=== PATIENT | female | born 1955 | race Hispanic/Latino ===

== ENCOUNTER 2022-06-01 18:29 | Observation (INO) | payer MEDICAID, SELFPAY ==
[2022-06-01] VITALS (10 sets, daily range): BP systolic 119–144; BP diastolic 62–106; PULSE 86–101; RESP 16–28; TEMP 36.4–36.5; O2SAT 95–100; BMI 36.6; BMI 30.8
--- NOTE | 2022-06-01 18:36 | EKG12_ITS ---
Test Reason : DYSRHYTHMIA Blood Pressure : / mmHG Vent. Rate : 095 BPM Atrial Rate : 095 BPM P-R Int : 150 ms QRS Dur : 080 ms QT Int : 360 ms P-R-T Axes : 056 030 017 degrees QTc Int : 452 ms Normal sinus rhythm Nonspecific ST abnormality Abnormal ECG Confirmed by CHEMO GUERRA, SHELIA ([id number]), book or script editor RERE JEAN-BAPTISTE ([id number]) on 06/02/2022 8:45:54 AM Referred By: LANDEN Confirmed By:SHELIA MCLAIN MD
--- NOTE | 2022-06-01 18:37 | EDS_ITS ---
HPI History of Present Illness Chief Complaint: Neuro S/Sx Detail of Chief Complaint: Stroke Informant: patient and family Narrative Narrative: Patient presents to the emergency department with concern for possible stroke. Patient brought in by her daughter and history comes via translation from her daughter. Patient is Yakut-speaking. Patient states that she noticed yesterday that she had some drooping to her face. She developed a headache yesterday. Patient came to her daughter's work today and daughter became concerned that patient may have had a stroke. She does have frequent headaches. I am told her headache came on gradually. Patient does have history of hypertension and history of diabetes. Patient complains of maybe some mild weakness in her left hand. She denies weakness in the lower extremities. Prior similar symptoms: No PFSH PFSH Medical History (Updated 06/01/22 @ 22:[address] Ismael Naqvi, DO) Diabetes HTN (hypertension) Home Medications atorvastatin 10 mg tablet 10 mg PO DAILY 06/01/22 [History Last Taken Unknown] glipizide 2.5 mg tablet, extended release 24 hr 2.5 mg PO DAILY 06/01/22 [History Last Taken Unknown] lisinopril 10 mg tablet 10 mg PO DAILY 06/01/22 [History Last Taken Unknown] metformin 500 mg tablet,extended release 24 hr 1,000 mg PO BID 06/01/22 [History Last Taken Unknown] Allergy/AdvReac Type Severity Reaction Status Date / Time No Known Allergies Allergy Verified 06/01/22 18:33 Social History Smoking Status: Never smoker ROS ROS ED Review of Systems ROS Unobtainable: other Constitutional Constitutional ED: Reports lethargy; Denies chills, fever(s), sweats or weight loss Eyes Eyes: Denies blurry vision, change in vision or diplopia ENT ENT ED: Denies rhinorrhea or sore throat Cardiovascular Cardiovascular: Denies chest pain, orthopnea or racing heartbeat Respiratory/Chest Respiratory/Chest: Denies cough, dyspnea, dyspnea on exertion, orthopnea or sputum Gastrointestinal Gastrointestinal: Denies abdominal pain, diarrhea, nausea or vomiting Genitourinary Genitourinary ED: Denies dysuria, hematuria or urinary frequency Musculoskeletal Musculoskeletal: Denies arthralgias, back pain, myalgias or neck pain Integumentary Denies abscess, Abrasions or rash Neurologic Neurologic: Reports other Details: Facial droop, left hand weakness ; Denies headache(s) or weakness Psychiatric Psychiatric: Denies anxiety, depression or suicidal thoughts Endocrine Endocrinology: Denies polydipsia, polyphagia or polyuria Hematologic/Lymphatic Hematologic/Lymphatic: Denies easy bleeding, easy bruising or lymphadenopathy Allergic/Immunologic Allergic/Immunologic ED: Denies mouth swelling, tongue swelling or urticaria EXAM Physical Exam Const Vital Signs: 06/01/22 18:31 06/01/22 18:37 06/01/22 18:51 Temperature 97.6 F L 97.6 F L Temperature Source Temporal Temporal Pulse Rate 95 89 Respiratory Rate 18 18 Blood Pressure 140/86 H 136/71 H Blood Pressure Mean 104 92 Pulse Ox 98 100 Oxygen Delivery Method Room Air Room Air Room Air 06/01/22 19:19 06/01/22 19:32 06/01/22 20:01 Temperature Temperature Source Pulse Rate 95 93 101 H Respiratory Rate 22 H 17 25 H Blood Pressure 124/69 H 127/106 H 140/73 H Blood Pressure Mean 87 113 95 Pulse Ox 99 100 99 Oxygen Delivery Method Room Air Room Air Room Air 06/01/22 21:01 06/01/22 22:02 Temperature Temperature Source Pulse Rate 94 86 Respiratory Rate 27 H 18 Blood Pressure 129/63 H 119/62 Blood Pressure Mean 85 81 Pulse Ox 98 95 Oxygen Delivery Method Room Air Room Air Positive well nourished and well developed General Appearance ED: well developed and NAD HEENT Reports TM's clear and moist mucous membranes normocephalic and atraumatic; Negative for trauma or tenderness Tympanic Membrane ED: Yes TM's clear Eyes PERRL and EOMs intact bilaterally General Eye ED: Negative for pale conjunctiva or scleral icterus Neck no lymphadenopathy, supple and no JVD General: Negative for tenderness Chest Wall inspection of chest normal and palpation of chest normal Chest: Negative for tenderness Resp normal respiratory effort and clear to auscultation bilaterally Effort and Inspection: Negative for respiratory distress or pain with movement Auscultation: Negative for rhonchi, wheezes or diminished lung sounds Cardio regular rate, regular rhythm, S1 normal heart sound, S2 normal heart sound and no murmurs Peripheral Pulses: pulses 2+ throughout GI normal to inspection, nondistended, normoactive bowel sounds, soft to palpation, non-tender, non-distended and no masses Back/Spine no CVA tenderness and no thoracic nor lumbar tenderness Extremity normal to inspection General Extremety ED: Negative for edema General Extremity: Negative for edema Neuro oriented x3, CN's II-XII intact bilaterally, no sensory deficits noted and gait normal Neuro Narrative: Patient appears to have a right-sided facial droop on exam. She has some weak ness of the right upper eyelid compared to the left. Mild decrease sensation to the right side of the face. Patient has subjective weakness of the left hand but no objective weakness noted. Sensorium / Orientation: awake, alert, oriented to person, oriented to place and oriented to time Motor Exam: strength 5/5 throughout and strength abnormal Psych mental status grossly normal Skin no rashes or lesions noted and no wounds MDM MDM MDM Narrative Medical decision making narrative: Patient presents with symptoms greater than 24 hours. In the differential would be a Dover's palsy versus stroke. Patient will have initial stroke work-up including CTA of head and neck. Initial NIH stroke scale was a 3 given facial droop and decreased PCP to obtain was normal. Sensation to the right side of the face. Patient not a thrombolytic candidate as she has had symptoms for greater than 24 hours.. CBC with differential obtained was normal. Chemistries normal. CT scan of the brain without contrast showed no intracranial hemorrhage or other acute disease process. Patient had CTA head and neck that were normal. Case discussed with hospitalist will evaluate patient for admission. Again she is not a thrombolytic candidate as she has had symptoms for more than 24 hours. Not a candidate for large vessel clot retrieval. In the differential is stroke versus Dover's palsy. Given symptoms involving the left hand and the fact that she can wrinkle the right side of her forehead concerned about a central cause. Lab Data Labs: Laboratory Results - last 24 hr 06/01/22 06/01/22 06/01/22 18:53 18:55 18:55 WBC 5.2 RBC 4.76 Hgb 14.6 Hct 43.7 MCV 91.8 MCH 30.7 MCHC 33.4 RDW Std Deviation 51.5 H RDW Coeff of [place] 14.9 H Plt Count 100 L MPV 12.7 H Immature Gran % (Auto) 0.200 Neut % (Auto) 47.6 Lymph % (Auto) 36.2 [place] % (Auto) 11.9 H Eos % (Auto) 3.3 Baso % (Auto) 0.8 Absolute Neuts (auto) 2.5 Absolute Lymphs (auto) 1.88 Nucleated RBC % 0 PT 14.2 INR 1.1 APTT 33.4 Sodium Potassium Chloride Carbon Dioxide Anion Gap BUN Creatinine Estim Creat Clear Calc Est GFR (MDRD) Af Amer Est GFR (MDRD) Non-Af BUN/Creatinine Ratio Glucose Calcium Troponin I High Sens POC Glucose 114 H 06/01/22 18:55 WBC RBC Hgb Hct MCV MCH MCHC RDW Std Deviation RDW Coeff of Francisco Plt Count MPV Immature Gran % (Auto) Neut % (Auto) Lymph % (Auto) [place] % (Auto) Eos % (Auto) Baso % (Auto) Absolute Neuts (auto) Absolute Lymphs (auto) Nucleated RBC % PT INR APTT Sodium 138 Potassium 3.8 Chloride 103 Carbon Dioxide 31.0 Anion Gap 4 L BUN 11 Creatinine 0.61 Estim Creat Clear Calc 66.92 Est GFR (MDRD) Af Amer 126 Est GFR (MDRD) Non-Af 104 BUN/Creatinine Ratio 18.0 Glucose 116 H Calcium 10.0 Troponin I High Sens 4 POC Glucose Radiography Diagnostic Testing: Clinical Impression(s) from Imaging Studies Head/Neck CTA 06/01/22 19:10 IMPRESSION: No acute intracranial abnormality. N.B. : The above Results were Read Back by Sebastien Gaspar MD to Ismael Parikh MD, and understanding confirmed on 06/01/2022 19:45:48 (ET). Electronically Signed: Sebastien Gaspar MD at 19:49 EDT Reading Location ID and State: [facility] / [place] , Service support , ADDENDUM: 06/01/221955 IMPRESSION: No acute intracranial abnormality. N.B. : The above Results were Read Back by Sebastien Gaspar MD to Ismael Parikh MD, and understanding confirmed on 06/01/2022 19:45:48 (ET). Electronically Signed: Sebastien aGspar MD at 19:49 EDT , Chest X-Ray 06/01/22 19:20 IMPRESSION: Degenerative changes, as described above. No demonstrated acute cardiopulmonary process. Electronically Signed: Sebastien Gaspar MD at 19:55 EDT , 1 view chest x-ray obtained interpreted by myself as no evidence of infiltrate or pneumothorax. There is nothing acute. Radiology felt there were degenerative changes but otherwise nothing acute. EKG Initial EKG: Attestation: I personally reviewed and interpreted this EKG as follows: Comments: Sinus rhythm with a rate of [address] changes Discharge Plan Dx/Rx/DC Orders Clinical Impression: Acute CVA (cerebrovascular accident), History of hypertension, Headache Disposition Disposition: Acute Care Hospital [facility]
--- NOTE | 2022-06-01 19:10 | CT_ITS ---
STUDY: CTA HEAD AND NECK WITH CONTRAST REASON FOR EXAM: Female, 66 years old. Neuro deficit, acute, stroke suspected, facial droop RADIATION DOSAGE (If Supplied By Facility): CTDIvol = ( 26.91 ) mGy, DLP = ( 1484.07 ) mGycm TECHNIQUE: CT angiography was performed with a multi-detector CT scanner. Data acquisition was obtained from the skull base through the vertex following intravenous administration of 100mL Isovue-370. MIP images were reconstructed from the axial data set. Post-processing of the angiographic images was performed, with multiplanar reformation and 3D reconstruction. Individualized dose optimization techniques were used for this CT. COMPARISON: No relevant priors. FINDINGS: Normal bilateral petrous carotid arteries. Normal right cavernous carotid artery with a normal supraclinoid bifurcation. Normal left cavernous carotid artery with a normal supraclinoid bifurcation. Normal right A1 segments of the anterior cerebral artery. Normal left A1 segments of the anterior cerebral artery. Normal intact anterior communicating artery (ACOM). Normal bilateral A2 segments of the anterior cerebral arteries. Normal right M1 and M2 segments of the middle cerebral arteries, with a normal M1 bifurcation. Normal left M1 and M2 segments of the middle cerebral arteries, with a normal M1 bifurcation. Normal right posterior communicating artery (PCOM). There is non-visualization of the left posterior communicating artery (PCOM). Normal bilateral vertebral arteries. Normal basilar artery with a normal basilar bifurcation. The visualized bilateral superior cerebellar (SCA) arteries are normal. Normal bilateral P1, P2 and visualized P3 segments of the posterior cerebral arteries. There is no demonstrated aneurysm of the [place]. There is no acute abnormality of the visualized brain. AORTIC ARCH: Normal visualized aortic arch. Normal origins of the brachiocephalic, left common carotid, and left subclavian arteries. RIGHT CAROTID ARTERIES: Normal right common carotid artery (CCA). Normal right common carotid bulb. Normal origin of the right internal carotid (ICA) artery without a hemodynamically significant stenosis. Normal visualized cervical portion of the right internal carotid artery. Normal origin of the right external carotid artery (ECA). LEFT CAROTID ARTERIES: Normal left common carotid artery (CCA). Normal left common carotid bulb. Normal origin of the left internal carotid (ICA) artery without a hemodynamically significant stenosis. Normal visualized cervical portion of the left internal carotid artery. Normal origin of the left external carotid artery (ECA). VERTEBRAL ARTERIES: Normal bilateral vertebral arteries. IMPRESSION: Normal CTA Head and neck with contrast. No aneurysm or large vessel occlusion. No internal carotid artery stenosis. N.B. : The above Results were Read Back by Sebastien Gaspar MD to Ismael Parikh MD, and understanding confirmed on 06/01/2022 19:45:48 (ET). Electronically Signed: Sebastien Gaspar MD at 19:47 EDT , STUDY: CT BRAIN WITHOUT CONTRAST REASON FOR EXAM: Female, 66 years old. Neuro deficit, acute, stroke suspected, facial droop RADIATION DOSAGE (If Supplied By Facility): CTDIvol = ( ) mGy, DLP = ( 1484 ) mGycm TECHNIQUE: Transaxial CT imaging of the brain was performed without administration of intravenous contrast material. Individualized dose optimization techniques were used for this CT. COMPARISON: No relevant priors. FINDINGS: Normal soft tissue structures. Normal calvarium. Normal size ventricles and extra-axial spaces for the patient''s age. Normal white matter tracts of the cerebral hemispheres. There is benign-appearing calcification of the medial right frontal lobe. Normal basal ganglia and thalami. Normal brainstem. Normal cerebellum. There is no intracranial hemorrhage. There are no findings of an acute ischemic infarction. Normal visualized paranasal sinuses. CT/STROKE CTA Head AND Neck W/Con IMPRESSION: No acute intracranial abnormality. N.B. : The above Results were Read Back by Sebastien Gaspar MD to Ismael Parikh MD, and understanding confirmed on 06/01/2022 19:45:48 (ET). Electronically Signed: Sebastien Gaspar MD at 19:49 EDT ,
[2022-06-01 19:11] LABS: Bedside Glucose 114 mg/dL (74-106)
[2022-06-01 19:19] LABS: Absolute Lymphocyte Count 1.88 X10^3/uL (0.83-4.51); Absolute Neutrophil Count 2.5 X10^3/uL (2.0-7.7); Basophil# 0.04 X10^3/uL; Basophil% 0.8 % (0-1); Eosinophil# 0.17 X10^3/uL; Eosinophils% 3.3 % (0-5); Hematocrit 43.7 % (37-47); Hemoglobin 14.6 g/dL (12.0-15.0); Lymphocyte # 1.88 X10^3/ul (0.83-4.51); Lymphocyte % 36.2 % (19-41); Mean Corp Hgb Conc 33.4 g/dL (32-36); Mean Corpuscular Hgb 30.7 pg (27.0-32.0); Mean Corpuscular Volume 91.8 fL (81-99); Mean Platelet Vol. 12.7 fl (6.2-12.0); Monocyte# 0.62 X10^3/uL; Monocyte% 11.9 % (0-10); NRBC Flagged by Analyzer 0 % (0-5); Neutrophil # 2.47 X10^3/uL (2.7-7.7); Neutrophil % 47.6 % (47-70); Platelet Count 100 K/mm3 (150-450); RBC Distribution Width CV 14.9 % (11.6-14.6); RBC Distribution Width SD 51.5 fl (35.1-43.9); Red Blood Count 4.76 M/mm3 (4.2-5.4); White Blood Count 5.2 K/mm3 (4.4-11.0)
--- NOTE | 2022-06-01 19:20 | RAD_ITS ---
STUDY: X-RAY CHEST REASON FOR EXAM: Female, 66 years old. Neuro deficit, acute, stroke suspected TECHNIQUE: Single AP portable view of the chest. COMPARISON: None. FINDINGS: The lungs are clear and expanded. There is no demonstrated pleural abnormality. Normal size heart. Normal mediastinum and sebastian. Normal visualized pulmonary arteries. Normal visualized aortic arch and descending thoracic aorta. There are diffuse degenerative changes of the visualized thoracic spine. Normal visualized ribs, clavicles, and shoulders. There is no demonstrated abnormality of the visualized soft tissue structures of the upper abdomen. RAD/Chest 1 View IMPRESSION: Degenerative changes, as described above. No demonstrated acute cardiopulmonary process. Electronically Signed: Sebastien Gaspar MD at 19:55 EDT ,
--- NOTE | 2022-06-01 19:28 | ED.RN ---
Addendum entered by Monica Elizondo 06/01/22 19:29: VERBAL ORDER, REPEATED BACK TO PHYSICIAN. Original Note: PER DR. RITCHIE OKAY TO DISCONTINUE NIH ASSESSMENTS.
[2022-06-01 19:34] LABS: International Normalized Ratio 1.1; Prothrombin Time (Protime)PT. 14.2 SECONDS (11.7-14.9)
[2022-06-01 19:35] LABS: Partial Thromboplast Time 33.4 Seconds (24.1-36.2)
[2022-06-01 19:39] LABS: Anion Gap 4 (5-15); BUN 11 mg/dL (7-18); Chloride 103 mmol/L (98-107); Creatinine, Serum 0.61 mg/dL (0.55-1.02); EST Glomerular Filtration Rate 104 mL/min (>60); Est Glom Filt Rate - Afr Amer 126 mL/min (>60); Estimated Creatinine Clearance 66.92 ml/min; Glucose 116 mg/dL (74-106); Potassium 3.8 mmol/L (3.5-5.1); Sodium Level 138 mmol/L (136-145); Troponin-I HS 4 pg/mL (3.0-54.0)
[2022-06-01] MEDS: Acetaminophen 325 MG Tablet 650 MG PO (20:47)
--- NOTE | 2022-06-01 21:48 | ED.RN ---
PT FAMILY MEMBER AND SPOUSE LEAVING AT [id number]. PT FAMILY MEMBER REQUESTS SHE BE CALLED WHEN THE PT IS MOVED TO THE INPATIENT FLOOR. PHONE NUMBER IS [phone], VIRGIL HESS.
--- NOTE | 2022-06-01 22:11 | HP.PCM.HOS_ITS ---
HPI - General General Date of Admission: 06/01/22 Date of Service: 06/01/22 Chief Complaint: Facial droop HPI Narrative CLARE MORALES, is a 66 F who Ukrainian speaking and with a significant medical history of hypertension and diabetes presenting to the emergency department with persistent facial weakness. Patient reports facial weakness to her left side. Reportedly she was drooling from the left side with drinking water and brushing her teeth. Associated symptom is slurry speech. Further patient reports weakness in left hand. [facility] Medical History Diabetes HTN (hypertension) Home Medications atorvastatin 10 mg tablet 10 mg PO DAILY 06/01/22 [History Last Taken Unknown] glipizide 2.5 mg tablet, extended release 24 hr 2.5 mg PO DAILY 06/01/22 [History Last Taken Unknown] lisinopril 10 mg tablet 10 mg PO DAILY 06/01/22 [History Last Taken Unknown] metformin 500 mg tablet,extended release 24 hr 1,000 mg PO BID 06/01/22 [History Last Taken Unknown] Allergy/AdvReac Type Severity Reaction Status Date / Time No Known Allergies Allergy Verified 06/01/22 18:33 Family History Other CVA (cerebral vascular accident) Hypertension Surgical History no surgical history no surgical history Social History Smoking Status: Never smoker ROS ROS Narrative Pertinent positives and pertinent negatives as noted in HPI. All other systems were reviewed and are negative Vital Signs Vital Signs Vital Signs: 06/01/22 18:31 06/01/22 18:37 06/01/22 18:51 Temperature 97.6 F L 97.6 F L Temperature Source Temporal Temporal Pulse Rate 95 89 Respiratory Rate 18 18 Blood Pressure 140/86 H 136/71 H Blood Pressure Mean 104 92 Pulse Ox 98 100 Oxygen Delivery Method Room Air Room Air Room Air 06/01/22 19:19 06/01/22 19:32 06/01/22 20:01 Temperature Temperature Source Pulse Rate 95 93 101 H Respiratory Rate 22 H 17 25 H Blood Pressure 124/69 H 127/106 H 140/73 H Blood Pressure Mean 87 113 95 Pulse Ox 99 100 99 Oxygen Delivery Method Room Air Room Air Room Air 06/01/22 21:01 06/01/22 22:02 Temperature Temperature Source Pulse Rate 94 86 Respiratory Rate 27 H 18 Blood Pressure 129/63 H 119/62 Blood Pressure Mean 85 81 Pulse Ox 98 95 Oxygen Delivery Method Room Air Room Air Weight Weight: 85.049 kg Body Mass Index (BMI) 36.6 Physical Exam Narrative Physical exam: General: Well-nourished, well-developed. Head: Normocephalic, atraumatic, no tenderness Eyes: Vision is grossly intact. EOMI ENT, no trauma, moist mucous membranes, no rhinorrhea Neck: Nontender, No thyromegaly. CVS: Regular rate and rhythm. S1-S2 present. No murmur, gallop or rub. Respiratory : clear to auscultation bilaterally, chest wall nontender, no wheezing Abdomen: Soft, nontender, nondistended, normal bowel sounds, no masses : Deferred Back: Nontender, no CVA tenderness, no midline spinal tenderness, deformities, step-offs Extremities: Nontender full range of motion, no trauma Skin: Normal color, no trauma, abrasions Neuro: Alert, oriented, cranial nerves II through XII grossly intact. No hyperreflexia in the elbow reflex and knee reflexes. Strength 5 out of 5 in all 4 extremities. Sensation change in left face compared to right face. Right facial droop. Decrease in wrinkling of right side of forehead compared to left. Psychiatry: Normal mood. Normal affect. Not depressed. Not anxious. Results Lab / Micro Data Result Diagrams: 06/01/22 18:55 06/01/22 18:55 Labs: Laboratory Results - last 24 hr 06/01/22 18:53: POC Glucose 114 H 06/01/22 18:55: WBC 5.2, RBC 4.76, Hgb 14.6, Hct 43.7, MCV 91.8, MCH 30.7, MCHC 33.4, RDW Std Deviation 51.5 H, RDW Coeff of Francisco 14.9 H, Plt Count 100 L, MPV 12.7 H, Immature Gran % (Auto) 0.200, Neut % (Auto) 47.6, Lymph % (Auto) 36.2, [place] % (Auto) 11.9 H, Eos % (Auto) 3.3, Baso % (Auto) 0.8, Absolute Neuts (auto) 2.5, Absolute Lymphs (auto) 1.88, Nucleated RBC % 0 06/01/22 18:55: PT 14.2, INR 1.1, APTT 33.4 06/01/22 18:55: Sodium 138, Potassium 3.8, Chloride 103, Carbon Dioxide 31.0, Anion Gap 4 L, BUN 11, Creatinine 0.61, Estim Creat Clear Calc 66.92, Est GFR (MDRD) Af Amer 126, Est GFR (MDRD) Non-Af 104, BUN/Creatinine Ratio 18.0, Glucose 116 H, Calcium 10.0, Troponin I High Sens 4 Radiology Impression Head/Neck CTA 06/01/22 19:10 IMPRESSION: No acute intracranial abnormality. N.B. : The above Results were Read Back by Sebastien Gaspar MD to Ismael Parikh MD, and understanding confirmed on 06/01/2022 19:45:48 (ET). Electronically Signed: Sebastien Gaspar MD at 19:49 EDT , ADDENDUM: 06/01/221955 IMPRESSION: No acute intracranial abnormality. N.B. : The above Results were Read Back by Sebastien Gaspar MD to Ismael Parikh MD, and understanding confirmed on 06/01/2022 19:45:48 (ET). Electronically Signed: Sebastien Gaspar MD at 19:49 EDT , Chest X-Ray 06/01/22 19:20 IMPRESSION: Degenerative changes, as described above. No demonstrated acute cardiopulmonary process. Electronically Signed: Sebastien Gaspar MD at 19:55 EDT , Assessment & Plan Assessment/Plan (1) Acute CVA (cerebrovascular accident): PLAN: Plan Strokelike symptoms Differentials include acute CVA, TIA or Dover's palsy. Objectively patient has right facial droop although she reports left facial symptoms. Head and neck CTA was visualized and independently interpreted. No hemorrhage of brain or hemodynamically significant stenosis seen in head and neck. I agree with radiology interpretation. Serial NINDS NIH Scale ordered Lipid profile and A1c ordered. Physical therapy, occupational therapy and speech therapy to work with patient. N.p.o. until bedside swallow eval. Daily aspirin. Home statin escalated to high intensity statin. As needed Tylenol for headache. Permissive hypertension. Control blood pressure with labetalol for systolic blood pressure of more than 220 or diastolic blood pressure of more than 120. MRI of brain ordered Echocardiogram ordered. Hypertension Blood pressure is stable Hold home hypertensive medications secondary to strokelike symptoms. Diabetes mellitus Euglycemic on presentation Glipizide continued. Metformin held. Monitor Accu-Cheks Correction scale insulin ordered. DVT prophylaxis: SCDs ordered Charges/Coding Visit Charges Inpatient E&M: 63848 Init Hosp L2
--- NOTE | 2022-06-01 23:23 | ECHOD_ITS ---
Reason For Study: TIA/CVA Procedure This was a 2D Doppler, Color Flow transthoracic echocardiogram. The study was technically difficult. Contrast injection was performed. Exam performed portable in patient room. Left Ventricle Normal left ventricle. Left ventricular systolic function is normal. The estimated ejection fraction is 75 %. Mid cavitary dynamic gradient There is a resting mid cavitary gradient of 21 mmHg increasing to 51 mmHg with Valsalva. mm/Hg. No regional wall motion abnormalities noted. Right Ventricle Normal RV size. Normal systolic function. Atria The left atrium is mildly enlarged. Normal right atrium. Bubble contrast study negative for right to left interatrial shunt. Mitral Valve Normal mitral valve. Tricuspid Valve Normal tricuspid valve. Mild (1+) tricuspid valve insufficiency. Pulmonary artery systolic pressure is 33 mmHg. Aortic Valve Trisinus/trileaflet aortic valve. Pulmonic Valve The pulmonic valve is not well visualized. Great Vessels Normal aortic root. The pulmonary artery is normal size. Normal inferior vena cava. Pericardium/Pleural No pericardial effusion. Medication Diluted definity 2ml given slow IV push to enhance endocardial definition. Performed a rapid injection of agitated mix of 9 cc saline and 1cc air to assess for atrial septal defect. MMode/2D Measurements & Calculations LVIDd: 3.9 cm IVSd: 1.0 cm Ao root diam: 2.8 cm LVIDs: 2.5 cm LVPWd: 1.2 cm FS: 34.7 % LAV(MOD-bp): 60.9 ml LVAd ap4: 25.6 cm2 SV(MOD-sp4): 47.7 ml LAV(MOD-bp) Indexed: 33.7 ml/m2 LVLd ap4: 7.4 cm LAV(MOD-sp2): 44.2 ml EDV(MOD-sp4): 72.4 ml LAV(MOD-sp4): 80.8 ml EDV(sp4-el): 74.9 ml LVAs ap4: 13.6 cm2 LVLs ap4: 6.4 cm ESV(MOD-sp4): 24.8 ml ESV(sp4-el): 24.7 ml EF(MOD-sp4): 65.8 % EF(sp4-el): 67.0 % SV(sp4-el): 50.2 ml LA A4 area: 23.4 cm2 LA dimension(2D): 3.7 cm RA A4 area: 13.2 cm2 Time Measurements MV dec time: 0.19 sec Doppler Measurements & Calculations MV E max jose: 99.3 cm/sec Lat Peak E' Jose: 9.8 cm/sec Med Peak E' Jose: 8.5 cm/sec MV A max jose: 67.1 cm/sec E/E' lat: 10.2 E/E' med: 11.7 MV E/A: 1.5 MV V2 max: 118.0 cm/sec MV dec slope: 524.0 cm/sec2 Ao V2 max: 169.1 cm/sec MV max P.6 mmHg Ao max P.8 mmHg MV V2 mean: 76.8 cm/sec Ao V2 mean: 111.4 cm/sec MV mean P.7 mmHg Ao mean P.2 mmHg MV V2 VTI: 31.6 cm Ao V2 VTI: 36.5 cm PA V2 max: 126.0 cm/sec TR max jose: 267.7 cm/sec PA V2 mean: 92.5 cm/sec TR max P.7 mmHg ECHO/Echo Complete W/ Contrast Interpretation Summary Normal left ventricle. Left ventricular systolic function is normal. The estimated ejection fraction is 75 %. The left atrium is mildly enlarged. Pulmonary artery systolic pressure is 33 mmHg. Mid cavitary dynamic gradient There is a resting mid cavitary gradient of 21 mm Hg increasing to 51 mmHg with Valsalva. mm/Hg. Contrast injection was performed. Ordering Physician: Matt Toussaint Referring Physician: Elder Reddy M.D. Performed By: Gege Mcdaniels RCS
--- NOTE | 2022-06-01 23:25 | ED.RN ---
THIS RN TOOK THE PT TO THE FLOOR. BEDSIDE NIH ASSESSMENT COMPLETED BY THIS RN WITH Marychuy TOWNSEND RN AT THE BEDSIDE.
--- NOTE | 2022-06-01 23:27 | ED.RN ---
THIS RN CALLED PT DAUGHTER PER PT TO LET HER KNOW PT IS NOW ON PCU. CALL TOOK PLACE AT [phone].
[2022-06-02] VITALS (8 sets, daily range): BP systolic 114–141; BP diastolic 58–79; PULSE 77–88; RESP 16–20; TEMP 36.4–37.1; O2SAT 94–99; BMI 30.8
[2022-06-02 02:36] LABS: Bedside Glucose 105 mg/dL (74-106)
[2022-06-02 03:26] LABS: Bedside Glucose 110 mg/dL (74-106)
[2022-06-02] MEDS: Acetaminophen 325 MG Tablet 650 MG PO ×2 (05:57→17:57)
[2022-06-02 06:28] LABS: Absolute Lymphocyte Count 1.26 X10^3/uL (0.83-4.51); Absolute Neutrophil Count 1.5 X10^3/uL (2.0-7.7); Basophil# 0.01 X10^3/uL; Basophil% 0.3 % (0-1); Eosinophil# 0.14 X10^3/uL; Eosinophils% 4.2 % (0-5); Hematocrit 39.3 % (37-47); Hemoglobin 12.9 g/dL (12.0-15.0); Lymphocyte # 1.26 X10^3/ul (0.83-4.51); Lymphocyte % 37.5 % (19-41); Mean Corp Hgb Conc 32.8 g/dL (32-36); Mean Corpuscular Hgb 30.2 pg (27.0-32.0); Mean Platelet Vol. 13.3 fl (6.2-12.0); Monocyte% 11.9 % (0-10); NRBC Flagged by Analyzer 0 % (0-5); Neutrophil # 1.54 X10^3/uL (2.7-7.7); Neutrophil % 45.8 % (47-70); POSITIVE COUNT YES; Platelet Count 67 K/mm3 (150-450); RBC Distribution Width CV 14.9 % (11.6-14.6); RBC Distribution Width SD 50.1 fl (35.1-43.9); Red Blood Count 4.27 M/mm3 (4.2-5.4); White Blood Count 3.4 K/mm3 (4.4-11.0)
[2022-06-02 06:31] LABS: Differential Indicated SCAN CRITERIA MET
[2022-06-02 06:56] LABS: Anion Gap 8 (5-15); BUN 7 mg/dL (7-18); BUN/Creat Ratio 15.7 RATIO (10-20); Calcium,Total 8.9 mg/dL (8.5-10.1); Chloride 106 mmol/L (98-107); Cholesterol 179 mg/dL (200); Creatinine, Serum 0.45 mg/dL (0.55-1.02); EST Glomerular Filtration Rate 150 mL/min (>60); Est Glom Filt Rate - Afr Amer 182 mL/min (>60); Estimated Creatinine Clearance 113.65 ml/min; Glucose 87 mg/dL (74-106); High Density Lipoprotein 76 mg/dL; Potassium 3.6 mmol/L (3.5-5.1); Sodium Level 140 mmol/L (136-145); Triglycerides 85 mg/dL; Very Low Density Lipoprotein 17 mg/dL (5-40)
[2022-06-02 06:59] LABS: Anisocytosis 1+; Platelet Estimate MOD DEC (ADEQ)
[2022-06-02 07:05] LABS: Bedside Glucose 99 mg/dL (74-106)
--- NOTE | 2022-06-02 07:29 | PN.HOSP_ITS ---
Reason for Visit Reason for Visit: Facial droop Subjective Subjective Patient is a 66-year-old [place]ander-speaking female who presented to the emergency department [facility] on 06/01/2022 with right facial droop that started the day prior to presentation. She also developed a headache at that time. Patient evidently came to her daughter's work on the day of admission and her daughter became concerned that she may be having a stroke because of her symptoms. Life facial droop was persistent and speech was somewhat slurred the patient also reported some left hand weakness. She does have a history of hypertension, hyperlipidemia, and diabetes. She denies any tobacco abuse. Current NIH is 1. She was out of the window for any thrombectomy or thrombolytics upon presentation so stroke team was not called. Vital signs on presentation were overtly unremarkable other than some mildly elevated blood pressure 140/86. Her CBC showed only thrombocytopenia which was 100,000 on presentation but we have no baseline previously so I am unaware if this is acute or chronic. Her chemistry panel was unremarkable other than some mild hyperglycemia at 116 on presentation. Her lipid panel showed a total cholesterol 179/LDL 86/HDL 76 and triglycerides of 85. Hemoglobin A1c was 6.6. Patient is now complaining of a difficulty eating because of weakness in the right side of his face. The weakness on the lower portion of the right side of her face seems to be stable however she has developed new weakness on the upper portion of the right side of her face indicating complete right-sided facial nerve palsy. 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 MRI remains pending and will not be done till later today. Objective Data Objective Data Vital Signs: Vital Signs Temp Pulse Resp BP Pulse Ox O2 Del Method 97.8 F 80 18 127/58 H 96 Room Air 06/02/22 05:57 06/02/22 05:57 06/02/22 05:57 06/02/22 05:57 06/02/22 05:57 06/02/22 05:57 Oxygen Delivery Method Room Air Weight: 84 kg Body Mass Index (BMI) 30.8 Lab / Micro Data Result Diagrams: 06/02/22 04:50 06/02/22 04:50 Labs: Laboratory Results - last 24 hr 06/01/22 18:53: POC Glucose 114 H 06/01/22 18:55: WBC 5.2, RBC 4.76, Hgb 14.6, Hct 43.7, MCV 91.8, MCH 30.7, MCHC 33.4, RDW Std Deviation 51.5 H, RDW Coeff of Francisco 14.9 H, Plt Count 100 L, MPV 12.7 H, Immature Gran % (Auto) 0.200, Neut % (Auto) 47.6, Lymph % (Auto) 36.2, [place] % (Auto) 11.9 H, Eos % (Auto) 3.3, Baso % (Auto) 0.8, Absolute Neuts (auto) 2.5, Absolute Lymphs (auto) 1.88, Nucleated RBC % 0 06/01/22 18:55: PT 14.2, INR 1.1, APTT 33.4 06/01/22 18:55: Sodium 138, Potassium 3.8, Chloride 103, Carbon Dioxide 31.0, Anion Gap 4 L, BUN 11, Creatinine 0.61, Estim Creat Clear Calc 66.92, Est GFR (MDRD) Af Amer 126, Est GFR (MDRD) Non-Af 104, BUN/Creatinine Ratio 18.0, Glucose 116 H, Calcium 10.0, Troponin I High Sens 4 06/02/22 02:15: POC Glucose 105 06/02/22 03:04: POC Glucose 110 H 06/02/22 04:50: WBC 3.4 L, RBC 4.27, Hgb 12.9, Hct 39.3, MCV 92.0, MCH 30.2, MCHC 32.8, RDW Std Deviation 50.1 H, RDW Coeff of Francisco 14.9 H, Plt Count 67 L, MPV 13.3 H, Immature Gran % (Auto) 0.300, Neut % (Auto) 45.8 L, Lymph % (Auto) 37.5, [place] % (Auto) 11.9 H, Eos % (Auto) 4.2, Baso % (Auto) 0.3, Absolute Neuts (auto) 1.5 L, Absolute Lymphs (auto) 1.26, Nucleated RBC % 0, Platelet Estimate MOD DEC, Anisocytosis 1+ 06/02/22 04:50: Sodium 140, Potassium 3.6, Chloride 106, Carbon Dioxide 26.0, Anion Gap 8, BUN 7, Creatinine 0.45 L, Estim Creat Clear Calc 113.65, Est GFR (MDRD) Af Amer 182, Est GFR (MDRD) Non-Af 150, BUN/Creatinine Ratio 15.7, Glucose 87, Calcium 8.9, Triglycerides 85, Cholesterol 179, LDL Cholesterol 86, VLDL Cholesterol 17, HDL Cholesterol 76 06/02/22 06:42: POC Glucose 99 Radiography Diagnostic Testing: Radiology Impression Head/Neck CTA 06/01/22 19:10 IMPRESSION: No acute intracranial abnormality. N.B. : The above Results were Read Back by Sebastien Gaspar MD to Ismael Parikh MD, and understanding confirmed on 06/01/2022 19:45:48 (ET). Electronically Signed: Sebastien Gaspar MD at 19:49 EDT , ADDENDUM: 06/01/221955 IMPRESSION: No acute intracranial abnormality. N.B. : The above Results were Read Back by Sebastien Gaspar MD to Ismael Parikh MD, and understanding confirmed on 06/01/2022 19:45:48 (ET). Electronically Signed: Sebastien Gaspar MD at 19:49 EDT , Chest X-Ray 06/01/22 19:20 IMPRESSION: Degenerative changes, as described above. No demonstrated acute cardiopulmonary process. Electronically Signed: Sebastien Gaspar MD at 19:55 EDT , Physical Exam Const alert, oriented x3, no apparent distress, healthy appearing and well nourished Constitutional Narrative: Obese, upper middle-aged, white female, up family at bedside, appears comfortable at this time and nontoxic HEENT head/scalp atraumatic and moist oral mucous membranes HEENT Narrative: Dentition is fair, Mallampati is 2, no thrush Head and Scalp: normocephalic Eyes PERRL, EOMs intact bilaterally and conjunctivae normal Eyes Narrative: Patient is having somewhat difficulty completely closing her right eye however the lid completely covers the cornea at this time Resp normal respiratory effort, no retractions, no use of accessory muscles and clear to auscultation bilaterally Cardio regular rate, regular rhythm, S1 normal heart sound, S2 normal heart sound, no murmurs, no rub, no gallops and no clicks GI normal to inspection, nondistended, normoactive bowel sounds, soft to palpation and non-tender Extremity no clubbing, cyanosis or edema Extremity Narrative: 2+ pedal pulses Neuro oriented x3, moves all extremities, no focal motor deficits and no sensory defi cits noted Neuro Narrative: Patient with what appears to be a right-sided 7th nerve palsy with decreased for going of the brow and right facial droop, all other cranial nerves are within normal limits, patient is [place]-speaking however able to formulate words well and is understandable Speech: speech normal Psych affect normal Mood & Affect: anxious Assessment & Plan Assessment/Plan (1) Facial droop: (2) Thrombocytopenia: PLAN: Plan Mild left facial droop -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 but MRI is pending -NIH is currently 1--> was 2 at its greatest on presentation -Continue high intensity dose statin -Continue aspirin -Add Plavix if MRI positive for stroke -PT/OT consultation -Lipid panel done as noted below -Hemoglobin A1c 6.6 -CTA of head and neck was unremarkable -Echocardiogram shows an EF of 75% with a mildly enlarged left atrium, pulmonary artery systolic pressures are 33 mmHg and diastolic function is normal -MRI pending -If MRI is negative start prednisone 40 mg daily for burst dosing and acyclovir -SOC consult pending Thrombocytopenia -Current platelet count is 67,000 and was 100,000 on admission -Request old records for most recent CBC -If new may need more work-up--> if persistent may need referral to hematology at discharge DM-2 -Hold home glipizide and metformin -SSI -Hemoglobin 6.6 -Accu-Cheks as ordered -We will need to watch closely as the patient may need the addition of steroids if her MRI is negative for stroke as I highly suspect Dover's palsy Hyperlipidemia -Continue atorvastatin but do high intensity dose at 80 mg at at bedtime since she is admitted with symptoms concerning for stroke DVT prophylaxis -Start enoxaparin 40 daily Disposition: -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 Anticipate discharge in the next 24 hours. If MRI is negative will start steroids and acyclovir. Neurology consult is pend ing. If indeed Dover's palsy will need education on eye care at the time of discharge Charges/Coding Visit Charges Inpatient E&M: 26487 Subs Hosp L2
[2022-06-02] MEDS: Aspirin 81 MG TAB.CHEW PO (08:32)
[2022-06-02 08:49] LABS: Hemoglobin A1c 6.6 % (3.8-5.6)
--- NOTE | 2022-06-02 12:00 | MRI_ITS ---
STUDY: MRI BRAIN WITHOUT CONTRAST REASON FOR EXAM: Female, 66 years old. CVA TECHNIQUE: Standardized multiplanar fat and water weighted pulse sequences were obtained. COMPARISON: No relevant prior imaging available for comparison. HEMISPHERES, CEREBELLUM AND BRAINSTEM: 1. The cerebral parenchyma, ventricular system, subarachnoid spaces have normal configuration. There is a normal gyral pattern. There is normal valadez/white differentiation. No midline shift.. 2. The hemispheric white matter has normal appearance. 3. No intraparenchymal mass, hemorrhage, or acute territorial infarct. 4. The cerebellum, brainstem, basilar and suprasellar cisterns have normal appearance. No Chiari malformation. PITUITARY: Infundibulum and pituitary have normal configuration. Midline structures appear normal. CSF SPACES: Appropriate for age. No hydrocephalus. Basal cisterns are patent. VESSELS: 1. There are normal flow voids noted in the great vessels at the skull base ORBITS AND PARANASAL SINUSES: 1. Both globes, extraocular muscles, optic nerves and retrobulbar fat appear unremarkable. 2. Paranasal sinuses are clear. BONY ELEMENTS: Bony elements of the cranial vault, facial skeleton and skull base have normal appearance. SCALP AND SOFT TISSUES: Normal appearance of the soft tissues of the scalp and the visualized face MRI/Brain without Contrast IMPRESSION: 1. No intracranial mass, hemorrhage, or acute territorial infarct. 2. No radiographically significant sinus disease. Electronically Signed: Aryan Murray MD at 16:36 EDT ,
[2022-06-02 12:30] LABS: Bedside Glucose 209 mg/dL (74-106)
--- NOTE | 2022-06-02 16:22 | TELEMED_ITS ---
[facility] Tele[facility] has confirmed receipt of a request for visit. This document confirms receipt of the order initiating the consult. To find the results of the consultation, please view the patient's reports for the scanned Telemed Consult.
[2022-06-02 17:05] LABS: Bedside Glucose 151 mg/dL (74-106)
[2022-06-02] MEDS: Acyclovir 200 MG Capsule 400 MG PO ×2 (19:18→21:45)
[2022-06-02] MEDS: Atorvastatin Calcium 80 MG Tablet PO (21:45)
[2022-06-02 22:10] LABS: Bedside Glucose 171 mg/dL (74-106)
[2022-06-03 03:29] VITALS: BP 131/66; PULSE 81; RESP 16; TEMP 36.5; O2SAT 97
[2022-06-03 06:03] LABS: Absolute Neutrophil Count 1.3 X10^3/uL (2.0-7.7); Basophil# 0.01 X10^3/uL; Basophil% 0.4 % (0-1); Eosinophil# 0.11 X10^3/uL; Eosinophils% 3.9 % (0-5); Hematocrit 40.4 % (37-47); Hemoglobin 13.4 g/dL (12.0-15.0); Lymphocyte % 38.9 % (19-41); Mean Corp Hgb Conc 33.2 g/dL (32-36); Mean Corpuscular Hgb 30.5 pg (27.0-32.0); Mean Corpuscular Volume 91.8 fL (81-99); Mean Platelet Vol. 12.5 fl (6.2-12.0); Monocyte# 0.35 X10^3/uL; Monocyte% 12.4 % (0-10); NRBC Flagged by Analyzer 0 % (0-5); Neutrophil # 1.25 X10^3/uL (2.7-7.7); POSITIVE COUNT YES; Platelet Count 63 K/mm3 (150-450); RBC Distribution Width CV 14.7 % (11.6-14.6); RBC Distribution Width SD 49.8 fl (35.1-43.9); White Blood Count 2.8 K/mm3 (4.4-11.0)
[2022-06-03 06:31] LABS: Anion Gap 7 (5-15); BUN 8 mg/dL (7-18); BUN/Creat Ratio 15.4 RATIO (10-20); Calcium,Total 8.7 mg/dL (8.5-10.1); Chloride 108 mmol/L (98-107); Creatinine, Serum 0.52 mg/dL (0.55-1.02); EST Glomerular Filtration Rate 126 mL/min (>60); Est Glom Filt Rate - Afr Amer 152 mL/min (>60); Estimated Creatinine Clearance 98.35 ml/min; Glucose 130 mg/dL (74-106); Magnesium 1.9 mg/dL (1.6-2.6); Phosphorus 3.7 mg/dL (2.5-4.9); Potassium 4.1 mmol/L (3.5-5.1); Sodium Level 142 mmol/L (136-145); Thyroid Stim Hormone (TSH) 4.27 uIU/mL (0.358-3.74)
[2022-06-03] MEDS: Acyclovir 200 MG Capsule 400 MG PO ×2 (06:33→10:01)
[2022-06-03 06:56] LABS: Bedside Glucose 130 mg/dL (74-106)
[2022-06-03 07:08] VITALS: O2SAT 95
--- NOTE | 2022-06-03 07:31 | CASEMGMT ---
SW did not complete a PHQ9 as patient did not have a Stroke or TIA. Fannie ALEMAN
[2022-06-03 08:35] LABS: T4 Free Direct 0.93 ng/dL (0.76-1.46)
--- NOTE | 2022-06-03 09:44 | DCINST_ITS ---
Discharge Instructions Diet Discharge Diet: Low fat / Low cholesterol and 1800 Calorie Control Diet Activity Discharge Activity: Return to Normal Activity Weight Bearing Status: Weight bearing as tolerated Dressing / Incision Call your doctor if you observe: Fever of 101 or Higher, Coldness, Increased Pain, Numbness or Tingling, Change in Color, Inability to urinate, Inability to have a bowel movement, Using more than 1 pad per hour, Shortness of breath, Dizziness, Fainting spells, Swelling in the ankles, Chest pain, Prolonged hiccupping, Increased palpitations (irregular heartbeat) and Calf discomfort Follow Up Care When: IN 2 WEEKS Test Results: Test results from this visit will be discussed in further detail at your follow- up appointment, if applicable. Discharge Plan Admission Admit Date/Time: 06/01/22 21:44 Primary Reason for Your Visit: R Facial Weakness, Dover;s palsy Attending Provider: Henry Maddox Primary Care Provider: Elder Reddy Consulting Providers: Matt Toussaint ; Talia Lopez Instructions Patient Instructions: ED Dover's Palsy Discharge Orders/Prescriptions Prescriptions: New prednisone 20 mg Tablet 60 mg PO BREAKFAST 7 Days Qty: 21 0RF insulin lispro [Humalog KwikPen Insulin] 100 unit/mL Insulin Pen See Protocol subcut ACHS Qty: 15 0RF Protocol: 1. Sliding Scale Insulin Low Dosing Condition: 150-224 mg/dl = 1 unit Condition: 225-299 mg/dl = 2 units Condition: 300-374 mg/dl = 3 units Condition: 375-499 mg/dl = 4 units Condition: Greater than 449 call physician Protocol Text: - Use for Total Daily Dose of Insulin 15-27 units - Thin, elderly, renal patients LOW DOSING ALGORITHM pantoprazole [Protonix] 40 mg tablet,delayed release (DR/EC) 40 mg PO DAILY Qty: 30 0RF valacyclovir 1 gram tablet 1,000 mg PO Q8H 7 Days Qty: 21 0RF Continued atorvastatin 10 mg tablet 10 mg PO DAILY Label Comments: TAKE 1 TABLET BY MOUTH ONCE DAILY AT BEDTIME FOR CHOLESTEROL glipizide 2.5 mg tablet extended release 24hr 2.5 mg PO DAILY Label Comments: TAKE 1 TABLET BY MOUTH ONCE DAILY lisinopril 10 mg tablet 10 mg PO DAILY Label Comments: TAKE 1 TABLET BY MOUTH ONCE DAILY metformin 500 mg tablet extended release 24 hr 1,000 mg PO BID Label Comments: TAKE 2 TABLETS BY MOUTH TWICE DAILY WITH MEALS Referrals / Follow Up: Bruce Love MD [Med Staff - Active Staff] - Within 1 Week Kurtis Duque MD [Non-Staff -Ordering Privileges] - Within 2 Weeks Elder Reddy MD [Primary Care Provider] - Within 2 Weeks Disposition Disposition (needs filled in before D/C Order can be placed): Home, Self Care
--- NOTE | 2022-06-03 09:54 | DS.PCM_ITS ---
Providers Date of Admission: 06/01/22 Date of Discharge: 06/03/22 Primary Care Physician: Dr. Elder Reddy MD Reason For Visit: STROKELIKE SYMPTOMS Diagnosis Discharge Diagnosis (1) Facial droop: Status: Acute Code(s): R29.810 - Facial weakness (2) Thrombocytopenia: Status: Acute Code(s): D69.6 - Thrombocytopenia, unspecified Plan This is 66-year-old [place] Citizen-speaking female was admitted for concern of possible stroke with drooping of right side of face and headache 1 day before admission. Patient was admitted in PCU. 1. 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 Although documented as 1 or maximum 2 but seems 3 to me as it involves upper face. CT head and neck was unremarkable. MRI brain did not show any acute intracranial abnormality. 2D echo EF 75% with no interatrial shunt/PFO. Patient was started on prednisone burst therapy 60 mg daily and SOC consulted. Right otoscopic exam was done and no vesicular lesion or kasaan ear abnormality found but seems right ear referred pain. SOC consult recommended prednisone 60 mg daily for 1 week with PPI. Valtrex 1000 mg 3 times daily for 1 week. Artificial tears during daytime when awake for dryness and ointment patching at of eye if it remains open during the night. Patient made appointment with neurologist and black topper. 2. Diabetes mellitus type 2: A1c 6.6%. Accu-Cheks before meals and at bedtime and patient discharged on Humalog insulin sliding scale. Glucoses expected to go up on prednisone. Home glipizide and metformin regimen. 3. Chronic thrombocytopenia: Patient platelet count 63,000, volume 100,000 on admission. Her platelet count has been for a long time, was 91,000 in July 2021. 4. Other comorbidities include dyslipidemia: Patient lipid panel shows LDL 86, HDL 76 Discharge home. Discharge medication reconciliation done. Discharge follow-up instructions completed. Discharge process discussed with the patient and all questions were answered to patient's satisfaction. Total time spent, exact 35 minutes on discharge meds reconciliation, examination, coordination of care with nurses and ancillary staff, review of imaging and blood test and discussion with the patient on follow-up instructions. Laboratory Results 06/02/22 16:46: POC Glucose 151 H 06/02/22 21:50: POC Glucose 171 H 06/03/22 05:30: WBC 2.8 L, RBC 4.40, Hgb 13.4, Hct 40.4, MCV 91.8, MCH 30.5, MCHC 33.2, RDW Std Deviation 49.8 H, RDW Coeff of Francisco 14.7 H, Plt Count 63 L, M PV 12.5 H, Immature Gran % (Auto) 0.400, Neut % (Auto) 44.0 L, Lymph % (Auto) 38.9, Deuel % (Auto) 12.4 H, Eos % (Auto) 3.9, Baso % (Auto) 0.4, Absolute Neuts (auto) 1.3 L, Absolute Lymphs (auto) 1.10, Nucleated RBC % 0 06/03/22 05:30: Sodium 142, Potassium 4.1, Chloride 108 H, Carbon Dioxide 27.0, Anion Gap 7, BUN 8, Creatinine 0.52 L, Estim Creat Clear Calc 98.35, Est GFR (MDRD) Af Amer 152, Est GFR (MDRD) Non-Af 126, BUN/Creatinine Ratio 15.4, Glucose 130 H, Calcium 8.7, Phosphorus 3.7, Magnesium 1.9, TSH 4.27 H 06/03/22 05:30: Free T4 0.93 06/03/22 06:31: POC Glucose 130 H 06/03/22 12:08: POC Glucose 218 H Medications at Discharge Home Medications atorvastatin 10 mg tablet 10 mg PO DAILY cholesterol 06/01/22 glipizide 2.5 mg tablet, extended release 24 hr 2.5 mg PO DAILY diabetes lisinopril 10 mg tablet 10 mg PO DAILY blood pressure 06/01/22 metformin 500 mg tablet,extended release 24 hr 1,000 mg PO BID diabetes 06/01/22 dextran 70-hypromellose (PF) 0.1 %-0.3 % eye drops in a dropperette (Natural Tears (PF)) 1 drp RIGHT EYE Q4H PRN PRN dry eye(s) #32 ea 06/03/22 insulin lispro 100 unit/mL subcutaneous pen (Humalog KwikPen (U-100) Insulin) See Protocol subcut ACHS #15 mL 06/03/22 pantoprazole 40 mg tablet,delayed release (Protonix) 40 mg PO DAILY #30 tabs 06/03/22 pen needle, diabetic 32 gauge x 5/32 (Pen Needle) #100 ea 06/03/22 prednisone 20 mg tablet 60 mg PO BREAKFAST 7 days #21 tabs 06/03/22 valacyclovir 1 gram tablet 1,000 mg PO Q8H 1 week #21 tabs 06/03/22 Physical Exam Narrative Seen and examined on the day of discharge. Patient has significant right-sided facial droop, complete involving upper face. Patient has pain over right ear seems referred pain. No other focal weakness. Denies prior history of facial paralysis. No blurry vision or change in vision. Patient is mainly [place] Citizen speaking female although speaks Georgian little bit. Physical exam General: Alert, Oriented x3, Cooperative HEENT: On autoscope exam, no vesicular lesions seen over right external ear, EAC or TM. Light reflex with bony structures normal. Atraumatic, PERRLA, EOMI, Normocephalic Oral: Oral mucosa moist. No Gingival or Mucosal Lesions/ Ulcerations Neck: Supple, No JVD, Negative Carotid Bruits Lungs: Air entry diminished in bilateral lung bases. No crepitation/rhonchi Cardiovascular: Regular rate, Regular Rhythm, Normal S1, Normal S2, No murmurs Abdomen: Bowel Sounds Present, Soft, Non Tender, Non-Distended : No renal angle tenderness. No suprapubic tenderness. Extremities: No edema, Capillary Refill Less than 3 Seconds Skin: No rashes, No breakdown Musculoskeletal: No Tenderness to Palpation of Joints or Extremities Neurological: Cranial nerves II-XII grossly intact, DTR 2+/4 and Symmetrical, Neuro grossly intact Psych/Mental Status: Normal Affect, Appropriate. Weight / BMI Weight Weight: 185 lb 3.013 oz Body Mass Index (BMI) 30.8 ABG / Lab / Microbiology Data Result Diagrams: 06/03/22 05:30 06/03/22 05:30 Laboratory: Laboratory Results - last 24 hr 06/02/22 12:11: POC Glucose 209 H 06/02/22 16:46: POC Glucose 151 H 06/02/22 21:50: POC Glucose 171 H 06/03/22 05:30: WBC 2.8 L, RBC 4.40, Hgb 13.4, Hct 40.4, MCV 91.8, MCH 30.5, MCHC 33.2, RDW Std Deviation 49.8 H, RDW Coeff of Francisco 14.7 H, Plt Count 63 L, MPV 12.5 H, Immature Gran % (Auto) 0.400, Neut % (Auto) 44.0 L, Lymph % (Auto) 38.9, Deuel % (Auto) 12.4 H, Eos % (Auto) 3.9, Baso % (Auto) 0.4, Absolute Neuts (auto) 1.3 L, Absolute Lymphs (auto) 1.10, Nucleated RBC % 0 06/03/22 05:30: Sodium 142, Potassium 4.1, Chloride 108 H, Carbon Dioxide 27.0, Anion Gap 7, BUN 8, Creatinine 0.52 L, Estim Creat Clear Calc 98.35, Est GFR (MDRD) Af Amer 152, Est GFR (MDRD) Non-Af 126, BUN/Creatinine Ratio 15.4, Glucos e 130 H, Calcium 8.7, Phosphorus 3.7, Magnesium 1.9, TSH 4.27 H 06/03/22 05:30: Free T4 0.93 06/03/22 06:31: POC Glucose 130 H Radiography Diagnostic Testing: Radiology Impression Echocardiogram 06/01/22 23:23 Interpretation Summary Normal left ventricle. Left ventricular systolic function is normal. The estimated ejection fraction is 75 %. The left atrium is mildly enlarged. Pulmonary artery systolic pressure is 33 mmHg. Mid cavitary dynamic gradient There is a resting mid cavitary gradient of 21 mmHg increasing to 51 mmHg with Valsalva. mm/Hg. Contrast injection was performed. Ordering Physician: Matt Toussaint Referring Physician: Elder Reddy M.D. Performed By: Gege Mcdaniels RCS Brain MRI 06/02/22 12:00 IMPRESSION: 1. No intracranial mass, hemorrhage, or acute territorial infarct. 2. No radiographically significant sinus disease. Electronically Signed: Aryan Murray MD at 16:36 EDT , D/C Instructions Discharge Diet: Low fat / Low cholesterol and 1800 Calorie Control Diet Weight Bearing Status: Weight bearing as tolerated Call your doctor if you observe: Fever of 101 or Higher, Coldness, Increased Pain, Numbness or Tingling, Change in Color, Inability to urinate, Inability to have a bowel movement, Using more than 1 pad per hour, Shortness of breath, Dizziness, Fainting spells, Swelling in the ankles, Chest pain, Prolonged hiccupping, Increased palpitations (irregular heartbeat) and Calf discomfort When: IN 2 WEEKS Meaningful Use Info Meaningful Use Diagnoses (Choose all that apply): None applicable Discharge Plan Admission Admit Date/Time: 06/01/22 21:44 Primary Reason for Your Visit: R Facial Weakness, Dover;s palsy Attending Provider: Henry Maddox Primary Care Provider: Elder Reddy Consulting Providers: Matt Toussaint ; Talia Lopez Instructions Patient Instructions: ED Dover's Palsy Discharge Orders/Prescriptions Prescriptions: New prednisone 20 mg Tablet 60 mg PO BREAKFAST 7 Days Qty: 21 0RF insulin lispro [Humalog KwikPen Insulin] 100 unit/mL Insulin Pen See Protocol subcut ACHS Qty: 15 0RF Protocol: 1. Sliding Scale Insulin Low Dosing Condition: 150-224 mg/dl = 1 unit Condition: 225-299 mg/dl = 2 units Condition: 300-374 mg/dl = 3 units Condition: 375-499 mg/dl = 4 units Condition: Greater than 449 call physician Protocol Text: - Use for Total Daily Dose of Insulin 15-27 units - Thin, elderly, renal patients LOW DOSING ALGORITHM pantoprazole [Protonix] 40 mg tablet,delayed release (DR/EC) 40 mg PO DAILY Qty: 30 0RF valacyclovir 1 gram tablet 1,000 mg PO Q8H 7 Days Qty: 21 0RF (DME) pen needle, diabetic [Pen Needle] 32 gauge x 5/32 needle See Rx Instructions .Route Qty: 100 0RF Rx Instructions: As directed Natural Tears (PF) 0.1-0.3 % dropperette 1 drp RIGHT EYE Q4H PRN PRN (Reason: dry eye(s)) Qty: 32 0RF Continued atorvastatin 10 mg tablet 10 mg PO DAILY Label Comments: TAKE 1 TABLET BY MOUTH ONCE DAILY AT BEDTIME FOR CHOLESTEROL glipizide 2.5 mg tablet extended release 24hr 2.5 mg PO DAILY Label Comments: TAKE 1 TABLET BY MOUTH ONCE DAILY lisinopril 10 mg tablet 10 mg PO DAILY Label Comments: TAKE 1 TABLET BY MOUTH ONCE DAILY metformin 500 mg tablet extended release 24 hr 1,000 mg PO BID Label Comments: TAKE 2 TABLETS BY MOUTH TWICE DAILY WITH MEALS Referrals / Follow Up: Bruce Love MD [Med Staff - Active Staff] - Within 1 Week Kurtis Duque MD [Non-Staff -Ordering Privileges] - Within 2 Weeks Elder Reddy MD [Primary Care Provider] - Within 2 Weeks Disposition Disposition (needs filled in before D/C Order can be placed): Home, Self Care Charges/Coding Visit Charges Inpatient E&M: 90298 Disch Hosp >30min
[2022-06-03 09:55] VITALS: BP 137/80; PULSE 76; RESP 17; TEMP 36.9; O2SAT 99
[2022-06-03] MEDS: Acetaminophen 325 MG Tablet 650 MG PO (09:58)
[2022-06-03] MEDS: Aspirin 81 MG TAB.CHEW PO (09:59)
[2022-06-03] MEDS: predniSONE 20 MG Tablet 60 MG PO (10:00)
--- NOTE | 2022-06-03 10:40 | CASEMGMT ---
PAIGE KNAPP in to discuss needs at discharge. Patient is discharging home with new insulin. APIGE KNAPP inquired if patient has glucometer at home. Patient states she has glucometer and supplies at home. Patient inquired about insulin teaching, RN ARIA reassured patient that nursing will review teaching with patient. Patient is independent in the room. Patient had no further questions or concerns at home. PAIGE KNAPP updated floor nurse regarding insulin teach, nurse states she will review with patient.
--- NOTE | 2022-06-03 11:52 | NURSING ---
Video fitness sales associate Pankaj ID #[id number] used to go over medications with pharmacist.
[2022-06-03] MEDS: Insulin Lispro 100 UNIT/ML INSULN.PEN SC (12:09)
[2022-06-03 12:18] VITALS: BMI 30.8
--- NOTE | 2022-06-03 12:20 | PHA.DC.MC ---
Pharmacy Service has performed discharge medication reconciliation and counseling for this patient. Patient is Malagasy speaking. Counseling mediated by deaf interpreter service. Medication education papers printed in Malagasy. Patient also had questions regarding Dover's Palsy so an education sheet printed in Malagasy for that as well. 1. INSULIN LISPRO LOW SLIDING SCALE SC ACHS 2. PANTOPRAZOLE 40MG PO DAILY 3. PREDNISONE 60MG PO BREAKFAST X 7 DAYS 4. VALACYCLOVIR 1000MG PO Q8 X 7 DAYS The patient's discharge medication list was reviewed for discrepancies and discrepancies were resolved. Home Medications atorvastatin 10 mg tablet 10 mg PO DAILY cholesterol 06/01/22 glipizide 2.5 mg tablet, extended release 24 hr 2.5 mg PO DAILY diabetes 06/01/22 lisinopril 10 mg tablet 10 mg PO DAILY blood pressure 06/01/22 metformin 500 mg tablet,extended release 24 hr 1,000 mg PO BID diabetes 06/01/22 insulin lispro 100 unit/mL subcutaneous pen (Humalog KwikPen (U-100) Insulin) See Protocol subcut ACHS #15 mL 06/03/22 pantoprazole 40 mg tablet,delayed release (Protonix) 40 mg PO DAILY #30 tabs 06/03/22 pen needle, diabetic 32 gauge x 5/32 (Pen Needle) #100 ea 06/03/22 prednisone 20 mg tablet 60 mg PO BREAKFAST 7 days #21 tabs 06/03/22 valacyclovir 1 gram tablet 1,000 mg PO Q8H 1 week #21 tabs 06/03/22 The patient was counseled on the following discharge medications and changes in medications for homegoing were reviewed. The Reason for Use, instructions for use, and potential side effects were reviewed for all new medications. The patient's questions regarding all of their medications were answered. The patient was able to verbally demonstrate an understanding of their discharge medications.
[2022-06-03 12:31] LABS: Bedside Glucose 218 mg/dL (74-106)
[2022-06-03 13:50] VITALS: BP 140/76; PULSE 81; RESP 16; TEMP 36.9; O2SAT 99
== END 2022-06-03 09:53 | disposition home or self-care (01) ==
LOC: ED 22:13 → PCU 06-02 02:33
PROVIDERS: Internal Medicine; Admitting Provider Hospitalist; Emergency Provider Emergency Medicine; PCP Internal Medicine; Visit Provider Internal Medicine
DX: R29.810 Facial weakness (principal); D69.6 Thrombocytopenia, unspecified; E11.9 Type 2 diabetes mellitus without complications; R47.81 Slurred speech; E78.5 Hyperlipidemia, unspecified; R29.703 NIHSS score 3; I10 Essential (primary) hypertension; Z79.84 Long term (current) use of oral hypoglycemic drugs; Z79.899 Other long term (current) drug therapy; R53.1 Weakness
CPT/HCPCS: 36415; 70496; 70498; 70551; 71045; 80048; 80061; 82962; 83036; 83735; 84100; 84439; 84443; 84484; 85025; 85610; 85730; 92610; 93005; 93306; 97161; 97166; 99221; 99285; Q9957; Q9967; A4216; C8929; G0378

== ENCOUNTER 2022-08-17 12:30 | Outpatient (RCR) | payer MEDICAID, SELFPAY ==
--- NOTE | 2022-06-29 15:00 | HP.PTEVAL ---
Patient's Visit Information CLARE MORALES is a 66 year old F referred to Physical Therapy by MEMO TREVIÑO with a diagnosis of [place] Palsy. Date of Evaluation: 06/29/22 Physical Therapist: Evelio Barrow, PT, ATC - Visit Plan Frequency: 1x/Week Duration: 1 Week Plan: Pt is now I with HEP consisting of facial movements for her to perform daily. Pt is now I with HEP. Discharge - Subjective Pt reports she was admitted to the hospital one month ago secondary to having stroke like symptoms. Pt notes she felt fine, but had a STEWARD that eventually moved to her L ear, and then the cheek. Pt reports her pain had an insidious onset in nature. Pt reports the doctors were able to rule out a stroke or TIA after extensive testing in the hospital. Pt reports she is now diagnosed with [place] Palsy. Pt reports her cheek just feels swollen now. Pt reports she is able to smile, but notes her cheek will not move. Pt reports she doesnt feel like a lot has changed over this past month. Pt notes she has difficulty with eating at this time. Pt does note it is getting a little easier. Pt reports she is able to feel her face on the R side. Pt reports she is not in pain at this time - Objective Neuro: sensation throughout face is WNL to light touch. Motor control: Pt is able to perform all normal facial movements on the L side of her face. Pt is not able to smile, show teeth, or purse lips. Pt is able to blink her R eye and blow cheecks out. ROM: Pt is fully able to open and close her mouth. - Goals Goal 1:: I with HEP Goal Time Frame: 1 Week - Rehabilitation Potential Physical Therapy Diagnosis: Pt has difficulty with facial gestures and eating secondary to [place] Palsy Rehabilitation Potential: Good - Anticipated Interventions Thank you for the opportunity to evaluate your patient. For Medicare and Medicare HMO plans, please review the plan of care and approve it. It will need to be FAXED BACK to us at [phone] for Medicare purposes. For Medicare only, by signing this I certify the plan of care. Please let me know if there are questions or concerns regarding this plan of care. Physician Signature: Date:
--- NOTE | 2022-06-29 15:04 | HP.PT.NRP ---
CLARE MORALES was seen in my office for initial evaluation on 06/29/22. The following Plan of Care was established for this patient: Initial Frequency: 1x/Week Initial Duration: 1 Week This patient was last seen in our office . Pertinent comments regarding their Physical therapy will appear below: Pt is now I with HEP consisting of facial movements for her to perform daily. Discharge At this point I will be discontinuing this patient from physical therapy. I would be happy to see this patient again in the future if found appropriate by the physician. Thank you! Evelio Barrow, PT, ATC
--- NOTE | 2022-08-17 13:03 | HP.SP.DC_ITS ---
ST Discharge Summary - Discharged: Discharge: Pt was seen for a swallowing and speech evaluation at [facility] on 06/24/22 s/p bells palsy and facial weakness. Pt attended 5 additional session to target articulation, dysarthria compensatory strategies, oropharyngeal strengthening, diet tolerance, implementation of compensatory strategies. After reviewing progress and hearing pt self-report, ST recommended dx due to pt meeting her goals and being appropriate to continue exercises independently at home. Pt is being discharged on this date, 08/17/22. Thank you for letting me participate in your plan of care. Will reevaluate at Pt?s request following script from physician.
== END 2022-08-17 19:00 | disposition home or self-care (01) ==
LOC: SP 12:30
PROVIDERS: PCP Internal Medicine
DX: G51.0 Bell's palsy (principal)
CPT/HCPCS: 92507; 92522; 92526; 92610; 97161

== ENCOUNTER 2023-07-06 02:37 | Inpatient (IN) | payer MEDICARE, MEDICAID, SELFPAY ==
[2023-07-06 02:38] VITALS: BP 154/67; PULSE 91; RESP 18; TEMP 36.2; O2SAT 100; BMI 36.3
--- NOTE | 2023-07-06 03:02 | RAD_ITS ---
STUDY: X-RAY - ACUTE ABDOMINAL SERIES REASON FOR EXAM: Female, 67 years old patient with abdominal pain. TECHNIQUE: Single view of the chest. Supine, and erect view(s) of the abdomen were obtained. COMPARISON: Chest radiograph dated June 01, 2022. FINDINGS: The lungs are expanded. There are prominent bronchovascular markings in both lungs. There is borderline cardiomegaly. Normal mediastinum and sebastian. There is prominence of the pulmonary hilar arteries without peripheral pulmonary vascular congestion, suggesting pulmonary hypertension. There is atherosclerotic calcification of the aortic arch with tortuosity. There is a non-specific bowel gas pattern. The soft tissue structures of the abdomen and pelvis are unremarkable. There are diffuse degenerative changes of the visualized lumbar spine. RAD/Acute Abdomen Inc Chest IMPRESSION: 1. Cardiomegaly and mild pulmonary congestion. 2. No obvious acute intra-abdominal disease. Electronically Signed: Jackeline Zamudio MD at 5:40 EDT ,
[2023-07-06] MEDS: 0.9% Normal Saline (500mL Bag) 500 ML 999 ML IV (03:08)
[2023-07-06] MEDS: Ondansetron 4 MG/2 ML Vial IV (03:08)
[2023-07-06 03:20] LABS: Absolute Lymphocyte Count 1.13 X10^3/uL (0.83-4.51); Absolute Neutrophil Count 3.9 X10^3/uL (2.0-7.7); Basophil# 0.02 X10^3/uL; Basophil% 0.3 % (0-1); Eosinophil# 0.22 X10^3/uL; Eosinophils% 3.7 % (0-5); Hematocrit 39.6 % (37-47); Hemoglobin 13.1 g/dL (12.0-15.0); Lymphocyte # 1.13 X10^3/ul (0.83-4.51); Mean Corp Hgb Conc 33.1 g/dL (32-36); Mean Corpuscular Hgb 30.2 pg (27.0-32.0); Mean Corpuscular Volume 91.2 fL (81-99); Mean Platelet Vol. 12.4 fl (6.2-12.0); Monocyte# 0.66 X10^3/uL; Monocyte% 11.1 % (0-10); NRBC Flagged by Analyzer 0 % (0-5); Neutrophil # 3.89 X10^3/uL (2.7-7.7); Neutrophil % 65.4 % (47-70); POSITIVE COUNT YES; Platelet Count 59 K/mm3 (150-450); RBC Distribution Width CV 14.6 % (11.6-14.6); RBC Distribution Width SD 49.2 fl (35.1-43.9); Red Blood Count 4.34 M/mm3 (4.2-5.4)
[2023-07-06 03:37] LABS: AST(SGOT) 67 U/L (15-37); Alanine Aminotransfer ALT/SGPT 52 U/L (13-56); Albumin, Serum 3.6 g/dL (3.2-5.0); Alkaline Phosphatase 197 U/L (45-117); Anion Gap 6 (5-15); BUN 30 mg/dL (7-18); BUN/Creat Ratio 10.4 RATIO (10-20); Bilirubin, Direct 0.55 mg/dL (0.00-0.30); Calcium,Total 8.4 mg/dL (8.5-10.1); Chloride 108 mmol/L (98-107); Creatinine, Serum 2.88 mg/dL (0.55-1.02); EST Glomerular Filtration Rate 17 mL/min (>60); Est Glom Filt Rate - Afr Amer 21 mL/min (>60); Estimated Creatinine Clearance 18.78 ml/min; Globulin 4.1 g/dL (2.2-4.2); Glucose 116 mg/dL (74-106); Lipase 43 U/L (13-75); Potassium 4.8 mmol/L (3.5-5.1); Protein, Total 7.7 g/dL (6.4-8.2); Sodium Level 135 mmol/L (136-145)
[2023-07-06 03:39] LABS: International Normalized Ratio 1.1; Prothrombin Time (Protime)PT. 14.4 SECONDS (11.7-14.9)
[2023-07-06 03:41] LABS: Partial Thromboplast Time 36.7 Seconds (24.1-36.2)
--- NOTE | 2023-07-06 04:16 | HP.PCM.HOS_ITS ---
[facility] - General General Date of Admission: 07/06/23 Date of Service: 07/06/23 Chief Complaint: Nausea, Vomiting and Diarrhea. 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 Ms. Morales speaks Sami only but her daughter was present at the bedside in the ER to augment the history. According to the patient's daughter her according to the patient's daughter her symptoms have been ongoing for quite some time but when they noticed streaks of bright red blood in her emesis earlier today they decided to come in for further evaluation and treatment. The patient denies a history of a bleeding disorder or being on blood thinners but she was diagnosed with thrombocytopenia more than 1 year ago a platelet count of 60 at that time. They deny any blood in her stools or vomiting of gross blood, coffee-ground emesis or tarry-black stools. Upon further questioning her daughter also denies a history of the patient having previously underwent EGD. The daughter is also not sure when is the last time her kidney function was checked but her kidney function was normal on her last admission here more than 1 year ago but she is notably on lisinopril, glipizide and metformin. She denies associated fever, chills, sore throat, myalgias, abdominal pain or chest pain but she does admit to frequent headaches. In the ER she was noted to have a CT scan of the abdomen and pelvis without contrast suspicious for evidence of ascending colitis in the setting of known fatty liver disease with mild hyperbilirubinemia of 1.3 mg/dL, elevated AST of 67 U/L and alkaline phosphatase of 197 U/L present on admission complicated by nausea and vomiting with bilious emesis and blood streaking plus nonbloody diarrhea likely causing dehydration compounded by laboratory evidence of severe renal failure (likely acute) with an elevated serum creatinine of 2.88 mg/dL and a BUN of 30 mg/dL present on admission (up from her baseline serum creatinine of 0.52 mg/dL and BUN of 8 mg/dL last admission) likely due at least in part to adverse drug reaction to lisinopril exacerbated by toxic side effects to metformin and glipizide that are contraindicated in cases of significant kidney failure with estimated GFR less than 30 mL/min in addition to compounded by dehydration along with chronic thrombocytopenia with platelet count of 59 present on admission and she was then admitted to the general medical floor under telemetric monitoring for stay that is expected to be greater than 48 ho urs. [facility] Medical History Diabetes Facial droop History of hypertension HTN (hypertension) Thrombocytopenia Home Medications glipizide 2.5 mg tablet, extended release 24 hr 2.5 mg PO DAILY diabetes 06/01/22 [History Last Taken Unknown] metformin 500 mg tablet,extended release 24 hr 1,000 mg PO BID diabetes 06/01/22 [History Last Taken Unknown] alendronate 70 mg tablet 70 mg PO QWEEK 07/06/23 [History Last Taken Unknown] atorvastatin 20 mg tablet 20 mg PO DAILY 07/06/23 [History Last Taken Unknown] carvedilol 6.25 mg tablet 6.25 mg PO BID 07/06/23 [History Last Taken Unknown] lisinopril 20 mg tablet 20 mg PO DAILY 07/06/23 [History Last Taken Unknown] Allergy/AdvReac Type Severity Reaction Status Date / Time No Known Allergies Allergy Verified 07/06/23 02:41 Family History Other CVA (cerebral vascular accident) Hypertension Social History Smoking Status: Never smoker ROS ROS Narrative Review of systems: General: Patient denies fevers or chills. HENT: Denies headache, denies stuffy nose, denies sore throat EYES: Denies changes in vision or discharge from eyes. Resp: Denies cough, denies shortness of breath Cardiac: Denies chest pain, palpitations or heart racing. GI: Patient admits to nausea, bilious emesis with blood streaking and nonbloody diarrhea but she denies abdominal pain, melena or hematemesis as per HPI. : Denies changes in urination Extremity: Denies swelling Musculoskeletal: Patient denies arthralgias or myalgias. Neuro: Patient admits to frequent headaches but she denies paresthesias or focal neurologic deficits. Heme: Patient admits to blood streaking in her emesis as per HPI. Skin: Denies rashes Psychiatric: No complaints voiced related to uncontrolled depression or anxiety Endocrine: No polyuria, polydipsia or polyphagia. The rest of the 14 point ROS was negative except for positives in HPI. Vital Signs Vital Signs Vital Signs: 07/06/23 02:38 Temperature 97.2 F L Temperature Source Temporal Pulse Rate 91 Respiratory Rate 18 Blood Pressure 154/67 H Blood Pressure Mean 96 Pulse Ox 100 Oxygen Delivery Method Room Air Weight Weight: 186 lb 4.65 oz Body Mass Index (BMI) 36.3 Physical Exam Const alert, oriented x3 and no apparent distress Constitutional Narrative: Patient is obese. General Appearance: cooperative HEENT normocephalic, head/scalp atraumatic and hearing grossly normal bilaterally HEENT Narrative: Mucous membranes dry. Eyes PERRL and EOMs intact bilaterally Neck no lymphadenopathy and supple Resp normal respiratory effort, no retractions, no use of accessory muscles and clear to auscultation bilaterally Cardio regular rate and regular rhythm GI normal to inspection, nondistended, normoactive bowel sounds, soft to palpation, non-tender and non-distended Extremity normal to inspection and full ROM Skin Skin Narrative: Patient has no evidence of jaundice or rash. Neuro oriented x3, CN's II-XII intact bilaterally, moves all extremities and no focal motor deficits Sensorium / Orientation: awake, alert, oriented to person, oriented to place and oriented to time Speech: speech normal Motor Exam: strength 5/5 throughout Psych affect normal Results Medical Records Data Attestation: I reviewed the patient's medical records Lab / Micro Data Attestation: I reviewed the patient's lab results. 07/06/23 02:46 07/06/23 02:46 Labs: Laboratory Results - last 24 hr 07/06/23 02:46: WBC 6.0, RBC 4.34, Hgb 13.1, Hct 39.6, MCV 91.2, MCH 30.2, MCHC 33.1, RDW Std Deviation 49.2 H, RDW Coeff of Francisco 14.6, Plt Count 59 L, MPV 12.4 H, Immature Gran % (Auto) 0.500, Neut % (Auto) 65.4, Lymph % (Auto) 19.0, [place] % (Auto) 11.1 H, Eos % (Auto) 3.7, Baso % (Auto) 0.3, Absolute Neuts (auto) 3.9, Absolute Lymphs (auto) 1.13, Nucleated RBC % 0, PT 14.4, INR 1.1, APTT 36.7 H, Sodium 135 L, Potassium 4.8, Chloride 108 H, Carbon Dioxide 21.0, Anion Gap 6, BUN 30 H, Creatinine 2.88 H, Estim Creat Clear Calc 18.78, Est GFR (MDRD) Af Amer 21 L, Est GFR (MDRD) Non-Af 17 L, BUN/Creatinine Ratio 10.4, Glucose 116 H, Calcium 8.4 L, Total Bilirubin 1.30 H, Direct Bilirubin 0.55 H, AST 67 H, ALT 52, Alkaline Phosphatase 197 H, Total Protein 7.7, Albumin 3.6, Globulin 4.1, Lipase [address] [facility] Imaging Services [address] [place] [id number] Abdomen/Pelvis without Cont MR#: [id number] Acct: [id number] Name: CLARE MORALES Rep #: [id number] : 1955 F 67 From: Francisco Conde MD PCP: Dr. Elder Reddy MD Status: ADM IN Study: Abdomen/Pelvis without Cont Date of Exam: 07/06/23 Exam# [id number] Ordering Dr: Mayo Mccullough DO INDICATION: abd pain EXAMINATION: CT ABDOMEN AND PELVIS WITHOUT CONTRAST - CT Abdomen And Pelvis W/O Contrast Injection TECHNIQUE: Helically acquired images were obtained of the abdomen and pelvis without oral or IV contrast. A radiation dose optimization technique was used for this scan. IV Contrast dosage and agent: None. Oral contrast: None. RADIATION DOSAGE (If Supplied By Facility): CTDIvol = ( 17.28 ) mGy, DLP = ( 785.80 ) mGycm COMPARISON: No relevant prior comparison study available FINDINGS: LOWER CHEST: Lung bases are clear. No cardiomegaly or pericardial effusion. LIVER: Morphologically cirrhotic liver. No focal mass. GALLBLADDER AND BILIARY TREE: The gallbladder is normally distended. No gallstones. No gallbladder wall thickening or edema. No intra- or extrahepatic biliary ductal dilation. PANCREAS: Fatty atrophy. No pancreatic mass or inflammation. SPLEEN: Normal size without focal cystic or solid mass. ADRENAL GLANDS: No nodules. KIDNEYS AND URETERS: Normal renal size and position. No hydronephrosis or nephrolithiasis. PERITONEUM: Trace perihepatic ascites. No free air. BOWEL: Edematous wall thickening of the ascending colon with mild pericolic fat stranding. Pancolonic diverticulosis without evidence of diverticulitis. Stomach and small bowel unremarkable. No evidence of acute appendicitis. LYMPH NODES: No enlarged mesenteric or retroperitoneal lymph nodes. VESSELS: Aorta is non-dilated. URINARY BLADDER: Unremarkable. REPRODUCTIVE ORGANS: No pelvic masses. ABDOMINAL WALL: No discrete abdominal or pelvic wall hernia. BONES: No acute or suspicious osseous abnormality. CT/Abdomen/Pelvis without Cont IMPRESSION: * Findings compatible with ascending colitis. Portal colopathy could also have this appearance, however the pericolic fat stranding suggests an infectious or inflammatory etiology. * Pancolonic diverticulosis without evidence of diverticulitis. * Cirrhosis. Electronically Signed: Francisco Conde MD at 5:08 EDT Reading Location ID and State: [address] [place] [address] Tel , Service support , CC: Dr. Elder Reddy MD; Mayo Mccullough DO ~ Mica Inspector: Signed Assessment & Plan Assessment/Plan (1) Acute renal failure: QUALIFIERS: Acute renal failure type: unspecified Qualified Code(s): N17.9 - Acute kidney failure, unspecified (2) Nausea vomiting and diarrhea: (3) Adverse drug reaction: QUALIFIERS: Encounter type: initial encounter Qualified Code(s): T50.905A - Adverse effect of unspecified drugs, medicaments and biological substances, initial encounter (4) Hyperbilirubinemia: (5) Fatty liver disease, nonalcoholic: (6) Thrombocytopenia: PLAN: Plan 1. CT scan on admission suspicious for ascending colitis in the setting of known fatty liver disease with mild hyperbilirubinemia of 1.3 mg/dL, elevated AST of 67 units/L and alkaline phosphatase of 197 units/L present on admission - Admit to general medical floor. Start broad-spectrum antibiotics with IV Zosyn to cover gram-negative's and anaerobes associated with colitis and await culture and sensitivity data. Also checking hepatitis profile to expand workup. Finally, we will avoid potentially hepatotoxic agents such as Tylenol. Finally, we will consult Dr. King of gastroenterology to see this patient on rounds in the a.m. for further recommendations without appreciated advance. 2. Nausea and vomiting with primarily bilious emesis with minimal blood streaking and nonbloody diarrhea with suspected component of dehydration due to #1 - Place on enteric and aspiration precautions. Give IV Protonix 40 mg twice daily. Give Zofran IV as needed for nausea or vomiting. Check stool studies: C. difficile A&B toxin PCR, stool ova and parasites, fecal white blood cells and Hemoccult. Keep n.p.o. except for ice chips, sips and medications. Otherwise, continue supportive care and monitor for improvement. 3. Elevated creatinine of 2.88 mg/dL with a BUN of 30 mg/dL present on admission consistent with suspected acute renal failure likely due at least on part to an Adverse Drug Reaction to Lisinopril complicating #1 & #2 - Give vigorous IV volume resuscitation and recheck BMP to positive response to therapy. Checked CT scan of the abdomen pelvis to evaluate renal anatomy look for evidence of chronic disease and/or obstruction which was unrevealing. Avoid potentially nephrotoxic agents. Finally, due to severity of patient's acute renal failure we will consult taxi truck driver on-call to see patient on rounds in the a.m. further recommendations with help appreciated in advance. 4. Chronic thrombocytopenia with platelet count of 59 present on admission adding to the pathology of #1 - #3 - Check CBC daily to ensure continued stability. Avoid heparin or heparinoid's with platelet count less than 100. 5. DM-2; of unknown control on Metformin and Glipizide - Stop metformin and glipizide with acute renal failure contraindicating the use of both of these agents. Give ice chips, sips and medications only. Fingerstick blood sugars every 6 hours plus lowest intensity sliding scale insulin. Check lactate level to rule out lactic acidosis. Also check hemoglobin A1c to objectively evaluate quality of diabetic control. 6. 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 7. Essential hypertension - Hold scheduled antihypertensives and give IV hydralazine as needed for systolic blood pressure greater than 160 mmHg. 8. Hyperlipidemia - Consider restarting statin when patient is able to tolerate oral intake and liver function tests normalize. 9. Obesity; with BMI of 36.4 this admission - Weight loss will be recommended. 10. OA - Stable. 11. DVT prophylaxis - SCD's only in light of #4 with thrombocytopenia contraindicating use of both heparin and heparinoids. Total time: Approximately 75 minutes. Charges/Coding Visit Charges Inpatient E&M: 02869 Init Hosp L3
[2023-07-06 04:20] VITALS: BP 116/95; PULSE 90; RESP 16; TEMP 36.6; O2SAT 99
--- NOTE | 2023-07-06 04:21 | EX.ED.DYSGE1 ---
HPI History of Present Illness Chief Complaint: GI Bleed Informant: patient and family Narrative Narrative: Patient is a Northern Irish-speaking 67-year-old female whose daughter interprets with past medical history of hypertension hyperlipidemia and diabetes. Daughter states that the patient will have intermittent bouts of nausea vomiting and diarrhea for no apparent reason and it has been this way for quite some time. Daughter states that the patient had her bout of vomiting and diarrhea today however in her emesis she had streaks of bright red blood. Patient does not have a history of bleeding disorder nor she on a blood thinner but daughter reports she does have low platelets. They state the blood is not normal for her and secondary to this she was brought in for evaluation. Patient denies any blood per rectum and states there is no abdominal pain at this time [facility] Medical History Diabetes Facial droop History of hypertension HTN (hypertension) Thrombocytopenia Home Medications glipizide 2.5 mg tablet, extended release 24 hr 2.5 mg PO DAILY diabetes 06/01/22 [History Last Taken Unknown] metformin 500 mg tablet,extended release 24 hr 1,000 mg PO BID diabetes 06/01/22 [History Last Taken Unknown] alendronate 70 mg tablet 70 mg PO QWEEK 07/06/23 [History Last Taken Unknown] atorvastatin 20 mg tablet 20 mg PO DAILY 07/06/23 [History Last Taken Unknown] carvedilol 6.25 mg tablet 6.25 mg PO BID 07/06/23 [History Last Taken Unknown] lisinopril 20 mg tablet 20 mg PO DAILY 07/06/23 [History Last Taken Unknown] Allergy/AdvReac Type Severity Reaction Status Date / Time No Known Allergies Allergy Verified 07/06/23 02:41 Family History Other CVA (cerebral vascular accident) Hypertension Social History Smoking Status: Never smoker ROS ROS ED Constitutional Constitutional ED: Denies chills or fever(s) Eyes Eyes: Denies change in vision ENT ENT ED: Denies sore throat Cardiovascular Cardiovascular: Denies chest pain Respiratory/Chest Respiratory/Chest: Reports cough; Denies dyspnea Gastrointestinal Gastrointestinal: Reports diarrhea, nausea and vomiting; Denies abdominal pain or melena Genitourinary Genitourinary ED: Denies dysuria or hematuria Musculoskeletal Musculoskeletal: Denies myalgias Integumentary Denies rash Neurologic Neurologic: Denies headache(s) Hematologic/Lymphatic Hematologic/Lymphatic: Denies easy bleeding or easy bruising EXAM Physical Exam Const Vital Signs: 07/06/23 02:38 07/06/23 04:20 Temperature 97.2 F L 98 F Temperature Source Temporal Pulse Rate 91 90 Respiratory Rate 18 16 Blood Pressure 154/67 H 116/95 H Blood Pressure Mean 96 102 Pulse Ox 100 99 Oxygen Delivery Method Room Air Positive well nourished, well developed and obese General Appearance ED: well developed; Negative for pallor Nutritional Appearance: obese HEENT Reports moist mucous membranes HEENT Narrative: No tongue or lip swelling no oral lesions no airway edema or compromise No signs of infection noted in the posterior pharynx No dried blood or active bleeding noted Eyes PERRL and EOMs intact bilaterally General Eye ED: Negative for pale conjunctiva or scleral icterus Neck supple Neck Narrative: No crepitance palpated throughout the neck and no pain with external manipulation of the thyroid cartilage Resp normal respiratory effort and clear to auscultation bilaterally Resp Narrative: No nasal flaring retractions tachypnea or accessory muscle use Cardio regular rate and regular rhythm Rate: other Other Details: Heart is regular rate and rhythm without murmurs rubs or gallop Radial and carotid pulses are equal and symmetric GI normal to inspection, nondistended, normoactive bowel sounds, non-tender, non-distended and no masses GI Narrative: Abdomen is soft nontender and nondistended with normal active bowel sounds. No voluntary guarding or rigidity No pulsatile mass or fluid wave No organomegaly noted Auscultation: normoactive bowel sounds Palpation: soft Narrative: No external hemorrhoid or anal fissure noted. Rectal tone is normal and stool is dark brown in color and Hemoccult negative. No internal masses palpated Extremity normal to inspection Extremity Narrative: No asymmetric edema no pitting edema negative Homans' sign bilaterally Neuro oriented x3, CN's II-XII intact bilaterally and no sensory deficits noted Sensorium / Orientation: alert Motor Exam: strength 5/5 throughout Psych mental status grossly normal Skin no rashes or lesions noted, no wounds and skin turgor normal General Skin Exam: Negative for jaundice or pallor MDM MDM MDM Narrative Medical decision making narrative: Patient presented to the ER slightly hypertensive otherwise with stable vitals. Patient and daughter reported that nausea vomiting diarrhea are recurrent problem for the patient and that the only reason they are here is because she had a small amount of blood in the emesis which is new for her. Differential diagnosis is potential for upper GI bleed versus Boerhaave syndrome versus acute blood loss anemia versus thrombocytopenia. Her abdomen is soft and nonsurgical so I felt no need for a CT scan elected to perform acute abdominal series with 1 view chest in order to ensure there is no free air or perforation. Lab work shows stable H&H and platelets are low consistent with history but near baseline of 60. However patient does have elevation to her BUN and creatinine compared to labs from almost 1 year ago indicating acute kidney injury. Secondary to this lab finding bladder scan was performed which revealed no signs of retention. However as patient now has acute kidney injury and it is unsure why as it could be related to medication such as metformin or lisinopril or potential renal mass medicine was contacted to discuss admission. Hospitalist recommends a noncontrast CT of the abdomen and pelvis to check for potential internal anatomy issues such as hydroureteronephrosis or changes to the renal anatomy or renal masses. Therefore this was ordered and patient was kept on IV fluids. She has remained hemodynamically stable but based on the VIKA she will be kept in the hospital for further care. History & Record Review Discussion w/independent historian: Patient and Family Lab Data Attestation: I reviewed the patient's lab results. Labs: Laboratory Results - last 24 hr 07/06/23 02:46 WBC 6.0 RBC 4.34 Hgb 13.1 Hct 39.6 MCV 91.2 MCH 30.2 MCHC 33.1 RDW Std Deviation 49.2 H RDW Coeff of Francisco 14.6 Plt Count 59 L MPV 12.4 H Immature Gran % (Auto) 0.500 Neut % (Auto) 65.4 Lymph % (Auto) 19.0 [place] % (Auto) 11.1 H Eos % (Auto) 3.7 Baso % (Auto) 0.3 Absolute Neuts (auto) 3.9 Absolute Lymphs (auto) 1.13 Nucleated RBC % 0 PT 14.4 INR 1.1 APTT 36.7 H Sodium 135 L Potassium 4.8 Chloride 108 H Carbon Dioxide 21.0 Anion Gap 6 BUN 30 H Creatinine 2.88 H Estim Creat Clear Calc 18.78 Est GFR (MDRD) Af Amer 21 L Est GFR (MDRD) Non-Af 17 L BUN/Creatinine Ratio 10.4 Glucose 116 H Calcium 8.4 L Total Bilirubin 1.30 H Direct Bilirubin 0.55 H AST 67 H ALT 52 Alkaline Phosphatase 197 H Total Protein 7.7 Albumin 3.6 Globulin 4.1 Lipase 43 Radiography Diagnostic Testing: Acute abdominal series with 1 view chest as interpreted by the emergency medicine physician reveals a nonspecific nonobstructive bowel gas pattern without free air/perforation. Chest x-ray component reveals no acute infiltrate pneumothorax or pleural effusion Management Discussion w/another healthcare provider: Hospitalist Discharge Plan Dx/Rx/DC Orders Clinical Impression: Acute kidney injury, Thrombocytopenia, Nausea vomiting and diarrhea Disposition Disposition: Acute Care [facility]
[2023-07-06] MEDS: 0.9% Normal Saline (1000mL) 1,000 ML 999 ML IV (04:32)
[2023-07-06 04:37] VITALS: BP 112/76; PULSE 81; RESP 16; O2SAT 99
[2023-07-06 04:38] LABS: Bacteria 0 SEEN /hpf (None Seen); Mucous, Urine 0 SEEN /hpf (<or=2+); Red Blood Cells-Urine 0 SEEN /hpf (0-5)
[2023-07-06 04:42] LABS: Color, Urine Yellow (Yellow); Glucose, Dipstick Normal (Normal); Ketone-Dipstick Negative (Negative); Leukocyte Esterase-Dipstick 25 /ul (Negative); Nitrite-Dipstick Negative (Negative); Occult Blood-Urine Negative /ul (Negative); Protein-Dipstick Negative (Negative); Urine Bilirubin Dipstick Negative (Negative); Urine Clarity Clear (Clear); Urine Urobilinogen Normal (Normal)
[2023-07-06 05:09] LABS: Squamous Epithelial Cells - UA 0-5 SEEN /hpf (5-10); White Blood Cells 0-5 SEEN /hpf (0-5)
[2023-07-06 05:59] VITALS: BMI 36.3
[2023-07-06] MEDS: 0.9% Normal Saline (1000mL) 1,000 ML 100 ML IV (06:18)
[2023-07-06 07:03] LABS: ALB/GLOB Ratio 0.9 RATIO (0.9-2.4); AST(SGOT) 57 U/L (15-37); Alanine Aminotransfer ALT/SGPT 46 U/L (13-56); Albumin, Serum 3.2 g/dL (3.2-5.0); Alkaline Phosphatase 157 U/L (45-117); Anion Gap 3 (5-15); BUN 29 mg/dL (7-18); BUN/Creat Ratio 10.9 RATIO (10-20); Calcium,Total 7.7 mg/dL (8.5-10.1); Chloride 111 mmol/L (98-107); Creatinine, Serum 2.65 mg/dL (0.55-1.02); EST Glomerular Filtration Rate 19 mL/min (>60); Est Glom Filt Rate - Afr Amer 23 mL/min (>60); Estimated Creatinine Clearance 20.41 ml/min; Globulin 3.4 g/dL (2.2-4.2); Glucose 125 mg/dL (74-106); Phosphorus 2.6 mg/dL (2.5-4.9); Protein, Total 6.6 g/dL (6.4-8.2); Sodium Level 134 mmol/L (136-145)
[2023-07-06 07:15] LABS: Hematocrit 36.9 % (37-47); Hemoglobin 12.3 g/dL (12.0-15.0); Red Blood Count 4.02 M/mm3 (4.2-5.4); White Blood Count 5.8 K/mm3 (4.4-11.0)
[2023-07-06 07:16] LABS: Eosinophils% 1.9 % (0-5); Lymphocyte % 14.9 % (19-41); Mean Corp Hgb Conc 33.3 g/dL (32-36); Mean Corpuscular Hgb 30.6 pg (27.0-32.0); Mean Corpuscular Volume 91.8 fL (81-99); Mean Platelet Vol. 12.9 fl (6.2-12.0); Monocyte% 6.9 % (0-10); Neutrophil % 75.3 % (47-70); Platelet Count 58 K/mm3 (150-450); RBC Distribution Width CV 14.6 % (11.6-14.6); RBC Distribution Width SD 49.8 fl (35.1-43.9)
[2023-07-06 07:17] LABS: Basophil# 0.04 X10^3/uL; Basophil% 0.7 % (0-1); Eosinophil# 0.11 X10^3/uL; Lymphocyte # 0.87 X10^3/ul (0.83-4.51); Neutrophil # 4.38 X10^3/uL (2.7-7.7)
[2023-07-06] MEDS: Pantoprazole Sodium 40 MG in 0.9% Normal Saline (100mL MB+) 100 ML 330 MG IV ×2 (08:36→20:02)
[2023-07-06 09:13] LABS: Anion Gap 5 (5-15); BUN 30 mg/dL (7-18); BUN/Creat Ratio 10.9 RATIO (10-20); Calcium,Total 7.7 mg/dL (8.5-10.1); Chloride 113 mmol/L (98-107); Creatinine, Serum 2.75 mg/dL (0.55-1.02); EST Glomerular Filtration Rate 18 mL/min (>60); Est Glom Filt Rate - Afr Amer 22 mL/min (>60); Estimated Creatinine Clearance 19.67 ml/min; Glucose 113 mg/dL (74-106); Potassium 6.1 mmol/L (3.5-5.1); Sodium Level 138 mmol/L (136-145)
[2023-07-06 09:34] LABS: Hemoglobin A1c 5.7 % (3.8-5.6)
[2023-07-06 09:40] VITALS: O2SAT 97
--- NOTE | 2023-07-06 09:52 | CASEMGMT ---
PAIGE KNAPP Assessment Face to Face with patient for initial transition planning/care coordination assessment. PAIGE KNAPP introduced self and role at [facility], pt voices understanding. Pt is A&Ox4 and is resting comfortably in bed and is calm. Care providers, pharmacy, and demographics verified. Admitting dx: Acute Renal Failure with N/V LACE Strata: 2 PCP: Barry Specialists: Priya VILLAFANA CC. Preferred Pharmacy: [facility] During this stay Insurance: [facility] Dual Complete ILSA Prescription Benefit: Yes LNOK: Ingris Clarosrera (DEA), Macy Prabhakar (DEA) Living Arrangements: Pt lives with her and daughter (Macy) in a 2 story home with a BM with HR throughout with 8 steps to enter with handrailing. ADLs/IADLs: Ind Transportation: Self, , daughters DME: Working [employer] and enough supplies. Denies all other DME uses or needs HHC/SNF: Denies history or needs Pt?s goal: Home no needs Plan: 6-Click is 24. Pt denies needs at home including HHC. Pt denies OP therapy needs. CM to follow for safe DC from [facility]. Wanda Zamudio RN, CM
[2023-07-06] MEDS: Piperacil/Tazobactam 3.375 GM in 0.9% Normal Saline (50mL MB+) 50 ML IV ×2 (13:42→20:08)
[2023-07-06] MEDS: 0.9% Normal Saline (1000mL) 1,000 ML 125 ML IV ×2 (13:43→20:18)
--- NOTE | 2023-07-06 18:13 | CON.PCM.GI_ITS ---
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 Ms. Morales speaks Macedonian only but her daughter was present at the bedside in the ER to augment the history. According to the patient's daughter her according to the patient's daughter her symptoms have been ongoing for quite some time but when they noticed streaks of bright red blood in her emesis earlier today they decided to come in for further evaluation and treatment. The patient denies a history of a bleeding disorder or being on blood thinners but she was diagnosed with thrombocytopenia more than 1 year ago a platelet count of 60 at that time. They deny any blood in her stools or vomiting of gross blood, coffee-ground emesis or tarry-black stools. Upon further questioning her daughter also denies a history of the patient having previously underwent EGD. The daughter is also not sure when is the last time her kidney function was checked but her kidney function was normal on her last admission here more than 1 year ago but she is notably on lisinopril, glipizide and metformin. She denies associated fever, chills, sore throat, myalgias, abdominal pain or chest pain but she does admit to frequent headaches. In the ER she was noted to have a CT scan of the abdomen and pelvis without contrast suspicious for evidence of ascending colitis in the setting of known fatty liver disease with mild hyperbilirubinemia of 1.3 mg/dL, elevated AST of 67 U/L and alkaline phosphatase of 197 U/L present on admission complicated by nausea and vomiting with bilious emesis and blood streaking plus nonbloody diarrhea [facility] Medical History Diabetes Facial droop History of hypertension HTN (hypertension) Thrombocytopenia Home Medications glipizide 2.5 mg tablet, extended release 24 hr 2.5 mg PO DAILY diabetes 06/01/22 [History Last Taken Unknown] metformin 500 mg tablet,extended release 24 hr 1,000 mg PO BID diabetes 06/01/22 [History Last Taken Unknown] alendronate 70 mg tablet 70 mg PO QWEEK 07/06/23 [History Last Taken Unknown] atorvastatin 20 mg tablet 20 mg PO DAILY 07/06/23 [History Last Taken Unknown] carvedilol 6.25 mg tablet 6.25 mg PO BID 07/06/23 [History Last Taken Unknown] lisinopril 20 mg tablet 20 mg PO DAILY 07/06/23 [History Last Taken Unknown] Allergy/AdvReac Type Severity Reaction Status Date / Time No Known Allergies Allergy Verified 07/06/23 02:41 Family History Other CVA (cerebral vascular accident) Hypertension Social History Smoking Status: Never smoker ROS ROS Narrative Review of systems: General: Patient denies fevers or chills. HENT: Denies headache, denies stuffy nose, denies sore throat EYES: Denies changes in vision or discharge from eyes. Resp: Denies cough, denies shortness of breath Cardiac: Denies chest pain, palpitations or heart racing. GI: Patient admits to nausea, bilious emesis with blood streaking and nonbloody diarrhea but she denies abdominal pain, melena or hematemesis as per HPI. : Denies changes in urination Extremity: Denies swelling Musculoskeletal: Patient denies arthralgias or myalgias. Neuro: Patient admits to frequent headaches but she denies paresthesias or focal neurologic deficits. Heme: Patient admits to blood streaking in her emesis as per HPI. Skin: Denies rashes Psychiatric: No complaints voiced related to uncontrolled depression or anxiety Endocrine: No polyuria, polydipsia or polyphagia. The rest of the 14 point ROS was negative except for positives in HPI. Physical Exam Const alert, oriented x3 and no apparent distress Constitutional Narrative: Speaks only a little Yi General Appearance: cooperative, well kempt and well developed Orientation / Consciousness: awake, oriented to person, oriented to place and oriented to time HEENT normocephalic, head/scalp atraumatic and moist oral mucous membranes Eyes PERRL, EOMs intact bilaterally and conjunctivae normal Neck supple, no JVD, thyroid normal and no carotid bruits General: trachea midline Resp normal respiratory effort, no retractions, no use of accessory muscles and clear to auscultation bilaterally Auscultation: Negative for rales, rhonchi or wheezes Cardio regular rate, regular rhythm, S1 normal heart sound, S2 normal heart sound, no murmurs, no rub and no gallops GI normal to inspection, nondistended, normoactive bowel sounds, soft to palpation, non-tender and non-distended Extremity no clubbing, cyanosis or edema Skin no rashes or lesions noted General Skin Exam: no breakdown Neuro oriented x3, CN's II-XII intact bilaterally, moves all extremities, no focal motor deficits and no sensory deficits noted Sensorium / Orientation: awake and alert Speech: speech normal Psych affect normal Lab / Micro Data 07/07/23 06:17 07/07/23 06:17 Labs: Laboratory Results - last 24 hr 07/06/23 06:15: Hepatitis A IgM Ab Negative, Hep Bs Antigen Negative, Hep B Core IgM Ab Negative, Hepatitis C Ab (EIA) Non Reactive, Hep C Ab Comment Comment 07/07/23 06:17: WBC 4.3 L, RBC 3.78 L, Hgb 11.6 L, Hct 35.8 L, MCV 94.7, MCH 30.7, MCHC 32.4, RDW Std Deviation 53.1 H, RDW Coeff of Francisco 15.2 H, Plt Count 56 L, MPV 12.3 H, Immature Gran % (Auto) 0.500, Neut % (Auto) 54.7, Lymph % (Auto) 21.7, [place] % (Auto) 15.7 H, Eos % (Auto) 6.7 H, Baso % (Auto) 0.7, Absolute Neuts (auto) 2.4, Absolute Lymphs (auto) 0.94, Nucleated RBC % 0.5, Sodium 140, Potassium 4.7, Chloride 116 H, Carbon Dioxide 20.0 L, Anion Gap 4 L, BUN 29 H, Creatinine 2.91 H, Estim Creat Clear Calc 18.59, Est GFR (MDRD) Af Amer 21 L, Est GFR (MDRD) Non-Af 17 L, BUN/Creatinine Ratio 10.0, Glucose 104, Calcium 8.1 L 07/07/23 16:56: Iron 91, TIBC 365, Iron Saturation 24.9, Ferritin 107, Ammonia 14.0, Amylase 67, Lipase 39 Micro: Microbiology 07/07/23 02:56 Stool Stool Lactoferrin - Final 07/07/23 02:56 Stool Enteric Bacteriology - Final 07/07/23 02:56 Stool Clostridioides difficile (PCR) - Final Assessment & Plan Assessment/Plan (1) Acute renal failure: QUALIFIERS: Acute renal failure type: unspecified Qualified Code(s): N17.9 - Acute kidney failure, unspecified (2) Nausea vomiting and diarrhea: (3) Adverse drug reaction: QUALIFIERS: Encounter type: initial encounter Qualified Code(s): T50.905A - Adverse effect of unspecified drugs, medicaments and biological substances, initial encounter (4) Hyperbilirubinemia: (5) Fatty liver disease, nonalcoholic: (6) Thrombocytopenia: PLAN: Plan 67-year-old with past medical history of diabetes, obesity presents with nausea and vomiting and discovered to have inflammation in her colon. 1. CT scan on admission suspicious for ascending colitis in the setting of known fatty liver disease with mild hyperbilirubinemia of 1.3 mg/dL, elevated AST of 67 units/L and alkaline phosphatase of 197 units/L present on admission - differential diagnosis does include mild ischemic colitis, infectious colitis and less likely inflammatory bowel disease. Recommend check stool studies, inflammatory markers. She may need colonoscopy in the future. 2. Nausea and vomiting with primarily bilious emesis with minimal blood streaking and nonbloody diarrhea with suspected component of dehydration due to #1 - Place on enteric and aspiration precautions. Give IV Protonix 40 mg twice daily. Give Zofran IV as needed for nausea or vomiting. Check stool studies: C. difficile A&B toxin PCR, stool ova and parasites, fecal white blood cells and Hemoccult. Keep n.p.o. except for ice chips, sips and medications. Patient w ould likely need EGD to evaluate upper GI tract 3. Elevated creatinine of 2.88 mg/dL with a BUN of 30 mg/dL present on admission consistent with suspected acute renal failure likely due at least on part to an Adverse Drug Reaction to Lisinopril complicating #1 & #2 - Give vigorous IV volume resuscitation and recheck BMP to positive response to therapy. 4. Chronic thrombocytopenia with platelet count of 59 present on admission adding to the pathology of #1 - #3 - Check CBC daily to ensure continued stability. Avoid heparin or heparinoid's with platelet count less than 100. Differential diagnosis does include portal hypertension, splenomegaly, cirrhosis Charges/Coding Visit Charges Inpatient E&M: 60543 Init Hosp L3
--- NOTE | 2023-07-06 18:19 | PN.HOSP_ITS ---
Reason for Visit Reason for Visit: Diagnoses Thrombocytopenia, unspecified (07/06/23) Other disorders of bilirubin metabolism (07/06/23) Fatty (change of) liver, not elsewhere classified (07/06/23) Acute kidney failure, unspecified (07/06/23) Nausea with vomiting, unspecified (07/06/23) Diarrhea, unspecified (07/06/23) Adverse effect of unspecified drugs, medicaments and biological substances, initial encounter (07/06/23) Subjective Subjective Patient was seen and examined today, she was admitted due to acute kidney injury and complaints of diarrhea and hematemesis. I had a long talk with the patient's daughter this afternoon due to the fact the patient does not speak much Chinese. Patient states she has been having several weeks of intermittent diarrhea, she denies any bloody diarrhea, she denies any weight loss. Patient states she vomited up blood yesterday with the first episode of emesis not afterwards. Patient has been seeing a rubber cutter in [place] who has her on omeprazole twice a day, daughter states that she has never had an EGD or colonoscopy however. Patient's daughter states that the patient was told she had fatty liver. Patient does complain of reflux symptomology quite often and is unable to eat because of stomach upset even though she is taking omeprazole. Patient's blood count has not dropped appreciably since she was admitted, CT on admission showed evidence of colitis although again the patient denies any rectal bleeding. Additionally, when I asked the daughter how long the patient's been having gastrointestinal symptoms, she stated all her life this is obviously somewhat vague. Patient is receiving IV fluid administration in an attempt to see if this would improve her creatinine. Objective Data Objective Data Vital Signs: Vital Signs Temp Pulse Resp BP Pulse Ox O2 Del Method 98 F 81 16 112/76 97 Room Air 07/06/23 04:20 07/06/23 04:37 07/06/23 04:37 07/06/23 04:37 07/06/23 09:40 07/06/23 09:40 Oxygen Delivery Method Room Air Weight: 84.495 kg Body Mass Index (BMI) 36.3 Intake & Output: Intake and Output for Last 24 Hours 07/04/23 07/05/23 07/06/23 23:59 23:59 23:59 Intake Total 2526.58 / 2526.58 Balance 2526.58 / 2526.58 Lab / Micro Data 07/06/23 06:15 07/06/23 08:30 Labs: Laboratory Results - last 24 hr 07/06/23 02:46: WBC 6.0, RBC 4.34, Hgb 13.1, Hct 39.6, MCV 91.2, MCH 30.2, MCHC 33.1, RDW Std Deviation 49.2 H, RDW Coeff of Francisco 14.6, Plt Count 59 L, MPV 12.4 H, Immature Gran % (Auto) 0.500, Neut % (Auto) 65.4, Lymph % (Auto) 19.0, [place] % (Auto) 11.1 H, Eos % (Auto) 3.7, Baso % (Auto) 0.3, Absolute Neuts (auto) 3.9, Absolute Lymphs (auto) 1.13, Nucleated RBC % 0, PT 14.4, INR 1.1, APTT 36.7 H, Sodium 135 L, Potassium 4.8, Chloride 108 H, Carbon Dioxide 21.0, Anion Gap 6, BUN 30 H, Creatinine 2.88 H, Estim Creat Clear Calc 18.78, Est GFR (MDRD) Af Amer 21 L, Est GFR (MDRD) Non-Af 17 L, BUN/Creatinine Ratio 10.4, Glucose 116 H, Hemoglobin A1c 5.7 H, Calcium 8.4 L, Total Bilirubin 1.30 H, Direct Bilirubin 0.55 H, AST 67 H, ALT 52, Alkaline Phosphatase 197 H, Total Protein 7.7, Albumin 3.6, Globulin 4.1, Lipase 43 07/06/23 04:30: Urine Color Yellow, Urine Clarity Clear, Urine pH 5.0, Ur Specific [place] 1.010, Urine Protein Negative, Urine Glucose (UA) Normal, Urine Ketones Negative, Urine Occult Blood Negative, Urine Nitrite Negative, Urine Bilirubin Negative, Urine Urobilinogen Normal, Ur Leukocyte Esterase 25 H, Urine RBC 0 SEEN, Urine WBC 0-5 SEEN, Ur Squamous Epith Cells 0-5 SEEN, Urine Bacteria 0 SEEN, Urine Mucus 0 SEEN 07/06/23 06:15: WBC 5.8, RBC 4.02 L, Hgb 12.3, Hct 36.9 L, MCV 91.8, MCH 30.6, MCHC 33.3, RDW Std Deviation 49.8 H, RDW Coeff of Francisco 14.6, Plt Count 58 L, MPV 12.9 H, Immature Gran % (Auto) 0.300, Neut % (Auto) 75.3 H, Lymph % (Auto) 14.9 L, [place] % (Auto) 6.9, Eos % (Auto) 1.9, Baso % (Auto) 0.7, Absolute Neuts (auto) Not Reportable, Sodium 134 L, Potassium 6.0 H*, Chloride 111 H, Carbon Dioxide 20.0 L, Anion Gap 3 L, BUN 29 H, Creatinine 2.65 H, Estim Creat Clear Calc 20.41, Est GFR (MDRD) Af Amer 23 L, Est GFR (MDRD) Non-Af 19 L, BUN/Creatinine Ratio 10.9, Glucose 125 H, Lactic Acid 1.0, Calcium 7.7 L, Phosphorus 2.6, Magnesium 2.0, Total Bilirubin 1.30 H, AST 57 H, ALT 46, Alkaline Phosphatase 157 H, Total Protein 6.6, Albumin 3.2, Globulin 3.4, Albumin/Globulin Ratio 0.9 07/06/23 08:30: Sodium 138, Potassium 6.1 H*, Chloride 113 H, Carbon Dioxide 20.0 L, Anion Gap 5, BUN 30 H, Creatinine 2.75 H, Estim Creat Clear Calc 19.67, Est GFR (MDRD) Af Amer 22 L, Est GFR (MDRD) Non-Af 18 L, BUN/Creatinine Ratio 10.9, Glucose 113 H, Calcium 7.7 L Micro: Microbiology 07/06/23 04:30 Stool Stool Occult Blood (LIZBETH) - Final Radiography Diagnostic Testing: Radiology Impression Acute Abdomen Series 07/06/23 03:02 IMPRESSION: 1. Cardiomegaly and mild pulmonary congestion. 2. No obvious acute intra-abdominal disease. Electronically Signed: Jackeline Zamudio MD at 5:40 EDT Reading Location ID and State: [facility] / [place] , Service support , Abdomen/Pelvis CT 07/06/23 04:16 IMPRESSION: * Findings compatible with ascending colitis. Portal colopathy could also have this appearance, however the pericolic fat stranding suggests an infectious or inflammatory etiology. * Pancolonic diverticulosis without evidence of diverticulitis. * Cirrhosis. Electronically Signed: Francisco Conde MD at 5:08 EDT , Physical Exam Const alert, oriented x3, no apparent distress and healthy appearing General Appearance: cooperative, well kempt and well developed Orientation / Consciousness: awake, oriented to person, oriented to place and oriented to time HEENT normocephalic, head/scalp atraumatic and moist oral mucous membranes Eyes PERRL, EOMs intact bilaterally and conjunctivae normal Neck supple, no JVD, thyroid normal and no carotid bruits General: trachea midline Resp normal respiratory effort, no retractions, no use of accessory muscles and clear to auscultation bilaterally Auscultation: Negative for rales, rhonchi or wheezes Cardio regular rate, regular rhythm, S1 normal heart sound, S2 normal heart sound, no murmurs, no rub and no gallops GI normal to inspection, nondistended, normoactive bowel sounds, soft to palpation, non-tender and non-distended Extremity no clubbing, cyanosis or edema Skin no rashes or lesions noted General Skin Exam: no breakdown Neuro oriented x3, CN's II-XII intact bilaterally, moves all extremities, no focal motor deficits and no sensory deficits noted Sensorium / Orientation: awake, alert, oriented to person, oriented to place and oriented to time Speech: speech normal Psych affect normal Assessment & Plan Assessment/Plan (1) Nausea vomiting and diarrhea: PLAN: Plan 1. Acute kidney injury-I will continue to administer fluids to the patient, if her creatinine has not changed appreciably tomorrow, I will order a renal ultrasound and have nephrology see the patient. #2 episode of hematemesis yesterday-etiology unclear, I have decided to have gastroenterology see the patient, I believe she would benefit from an EGD. #3 colitis as indicated by patient's CT scan-patient unfortunately does not have the symptomology for colitis at this time, I have elected to keep her on IV antibiotics for now and reevaluate her. She may ultimately need an outpatient colonoscopy. #4 type 2 diabetes-patient's blood sugars will be monitored, sliding scale insulin will be given to the patient, she is on glipizide and metformin as an outpatient #5 chronic intermittent diarrhea-patient states that she had diarrhea over the last several weeks, she has been on metformin for longer than that however so I think it is unlikely the metformin could be causing her symptomology. It is possible this patient may have microscopic colitis but the patient's CT reads out evidence of colitis. Again patient may need an outpatient colonoscopy to resolve this issue. #6 hyperkalemia-etiology unclear at this point, I repeated the patient's BMP this morning and it reveals an elevated potassium-I have elected to give the patient a single dose of Kayexalate and recheck her BMP tomorrow morning, patient is being monitored. Total clinical time spent by myself addressing the patient's medical issues, reviewing all of her data, and collaborating with patient's care team: 50 minutes Charges/Coding Visit Charges Inpatient E&M: 91564 Subs Hosp L3
[2023-07-06] MEDS: Sodium Polystyrene Sulfonate 15 GM/60 ML UDC 30 GM PO (20:08)
[2023-07-06 20:20] VITALS: BP 129/51; PULSE 88; RESP 21; TEMP 36.5; O2SAT 100
[2023-07-07] VITALS (11 sets, daily range): BP systolic 99–127; BP diastolic 53–86; PULSE 77–89; RESP 15–18; TEMP 36.3–36.8; O2SAT 95–100; BMI 36.8
--- NOTE | 2023-07-07 | EGD_PTH ---
PATIENT: CLARE MORALES LOC: [facility] U#:[id number] AGE/SX: 67/F ROOM: [facility] RE07/06/[address]: Dr. Oscar Delgado DO : 1955 BED: 1 DIS: 07/09/2023 SPEC #: [id number] RECD: 07/07/23 13:47 STATUS: LIBBY RECheli #: [id number] SEUN: 07/07/23 00:[address]: Santino King DEPT: SURGICAL PATHOLOGY RECD BY: Andria Ernandez ENTERED: 07/07/23 13:59 SP TYPE: EGD BIOPSY OTHR DR: DO Dr. Yecenia Burgess MD Dr. Mark Tereletsky, DO Dr. Victor Velasquez, MD Tissues: A - Gastric mucous membrane B - Duodenum, NOS Procedures: Surgery Specimen Level IV Comments: @ Ordering doctor for SUIV edited from to @ maribell ESPOSITO at 07/07/23 5375 @ Submitting doctor edited from to @ maribell ESPOSITO at 07/07/23 1456 HEADER OPERATION: EGD with biopsies PRE-OP DIAGNOSIS: Acute renal failure with nausea, vomiting and bleeding TISSUE SUBMITTED: A- Gastric body biopsy, B- Duodenal biopsy MICROSCOPIC DIAGNOSIS A. Gastric body, biopsy: Mild gastritis. See microscopic description and comment. B. Duodenal, biopsy: Fragments of duodenal mucosa with focal gastric metaplasia. SJ/mr 07/08/2023 COMMENT A. The results of immunohistochemistry for Helicobacter pylori will be reported separately ([id number]). MICROSCOPIC DESCRIPTION Slides are reviewed A. The specimen shows fragments of gastric mucosa with chronic inflammatory cell infiltrates in the lamina propria consisting of lymphocytes and plasma cells, consistent with mild chronic gastritis. GROSS DESCRIPTION A. Received in fixative is one container labeled with the patient's name and designated Gastric body biopsy. The specimen consists of two irregular fragments of light gant soft tissue that in aggregate measure 0.6 x 0.4 x 0.1 cm. The specimen is totally submitted in one cassette. B. Received in fixative is one container labeled with the patient's name and designated Duodenum biopsy. The specimen consists of two irregular fragments of light gant soft tissue that in aggregate measure 0.8 x 0.3 x 0.1 cm. The specimen is totally submitted in one cassette. Manjit 07/07/2023 TC:3 CPT:24371w8
[2023-07-07] MEDS: 0.9% Normal Saline (1000mL) 1,000 ML 125 ML IV ×3 (04:18→20:07)
[2023-07-07] MEDS: Piperacil/Tazobactam 3.375 GM in 0.9% Normal Saline (50mL MB+) 50 ML IV ×2 (06:00→14:22)
[2023-07-07 06:10] LABS: HEPATITIS B SURFACE AG Negative (Negative); Hep C Antibodies Non Reactive (Non Reactive); Hepatitis A IgM Antibody Negative (Negative); Hepatitis B Core AB IgM Negative (Negative)
[2023-07-07 07:03] LABS: Absolute Lymphocyte Count 0.94 X10^3/uL (0.83-4.51); Absolute Neutrophil Count 2.4 X10^3/uL (2.0-7.7); Basophil# 0.03 X10^3/uL; Basophil% 0.7 % (0-1); Eosinophil# 0.29 X10^3/uL; Eosinophils% 6.7 % (0-5); Hematocrit 35.8 % (37-47); Hemoglobin 11.6 g/dL (12.0-15.0); Lymphocyte # 0.94 X10^3/ul (0.83-4.51); Lymphocyte % 21.7 % (19-41); Mean Corp Hgb Conc 32.4 g/dL (32-36); Mean Corpuscular Hgb 30.7 pg (27.0-32.0); Mean Corpuscular Volume 94.7 fL (81-99); Mean Platelet Vol. 12.3 fl (6.2-12.0); Monocyte# 0.68 X10^3/uL; Monocyte% 15.7 % (0-10); NRBC Flagged by Analyzer 0.5 % (0-5); Neutrophil # 2.38 X10^3/uL (2.7-7.7); Neutrophil % 54.7 % (47-70); POSITIVE COUNT YES; Platelet Count 56 K/mm3 (150-450); RBC Distribution Width CV 15.2 % (11.6-14.6); RBC Distribution Width SD 53.1 fl (35.1-43.9); Red Blood Count 3.78 M/mm3 (4.2-5.4); White Blood Count 4.3 K/mm3 (4.4-11.0)
[2023-07-07 07:54] LABS: Anion Gap 4 (5-15); BUN 29 mg/dL (7-18); Calcium,Total 8.1 mg/dL (8.5-10.1); Chloride 116 mmol/L (98-107); Creatinine, Serum 2.91 mg/dL (0.55-1.02); EST Glomerular Filtration Rate 17 mL/min (>60); Est Glom Filt Rate - Afr Amer 21 mL/min (>60); Estimated Creatinine Clearance 18.59 ml/min; Glucose 104 mg/dL (74-106); Potassium 4.7 mmol/L (3.5-5.1); Sodium Level 140 mmol/L (136-145)
[2023-07-07] MEDS: Pantoprazole Sodium 40 MG in 0.9% Normal Saline (100mL MB+) 100 ML 330 MG IV ×2 (09:25→20:07)
--- NOTE | 2023-07-07 11:11 | OP.EGD_ITS ---
Patient Name: Macy Alonso Procedure Date: 07/07/2023 10:41 AM Date of : 1955 Age: 67 Procedure: Upper GI endoscopy Indications: Epigastric abdominal pain, Coffee-ground emesis Providers: Santino King DO Medicines: Monitored Anesthesia Care Patient Profile: This is a 67 year old female. Refer to note in patient chart for documentation of history and physical. Patient has symptoms. Complications: No immediate complications. Procedure: Pre-Anesthesia Assessment: - Prior to the procedure, a History and Physical was performed, and patient medications and allergies were reviewed. The patient is competent. The risks and benefits of the procedure and the sedation options and risks were discussed with the patient. All questions were answered and informed consent was obtained. Patient identification and proposed procedure were verified by the physician in the pre-procedure area. Mental Status Examination: alert and oriented. Airway Examination: normal oropharyngeal airway and neck mobility. Respiratory Examination: clear to auscultation. CV Examination: normal. Prophylactic Antibiotics: The patient does not require prophylactic antibiotics. Prior Anticoagulants: The patient has taken no anticoagulant or antiplatelet agents. ASA Grade Assessment: II - A patient with mild systemic disease. After reviewing the risks and benefits, the patient was deemed in satisfactory condition to undergo the procedure. The anesthesia plan was to use monitored anesthesia care (MAC). Immediately prior to administration of medications, the patient was re-assessed for adequacy to receive sedatives. The heart rate, respiratory rate, oxygen saturations, blood pressure, adequacy of pulmonary ventilation, and response to care were monitored throughout the procedure. The physical status of the patient was re-assessed after the procedure. After obtaining informed consent, the endoscope was passed under direct vision. Throughout the procedure, the patient's blood pressure, pulse, and oxygen saturations were monitored continuously. The Endoscope was introduced through the mouth, and advanced to the second part of duodenum. Scope In: 10:54:13 AM Scope Out: 10:59:36 AM Total Procedure Duration Time 0 hours 5 minutes 23 seconds Findings: Grade I varices were found in the lower third of the esophagus. They were 5 mm in largest diameter. Severe portal hypertensive gastropathy was found in the entire examined stomach. Biopsies were taken with a cold forceps for histology. Verification of patient identification for the specimen was done. Biopsies were taken with a cold forceps for Helicobacter pylori testing. Verification of patient identification for the specimen was done. Estimated blood loss was minimal. An acquired benign-appearing, intrinsic severe stenosis was found in the duodenal bulb and was traversed after dilation. A guidewire was placed and the scope was withdrawn. Dilation was performed with a Savary dilator with no resistance at 45 Fr. The dilation site was examined and showed moderate mucosal disruption. Biopsies were taken with a cold forceps for histology. Verification of patient identification for the specimen was done. Estimated blood loss was minimal. Impression: - Grade I esophageal varices. - Portal hypertensive gastropathy. Biopsied. - Acquired duodenal stenosis. Dilated. Biopsied. Recommendation: - [facility]. - Continue present medications. Procedure Code(s): --- Professional --- 47324, Esophagogastroduodenoscopy, flexible, transoral; with dilation of gastric/duodenal stricture(s) (eg, balloon, bougie) 37547, 59,51, Esophagogastroduodenoscopy, flexible, transoral; with biopsy, single or multiple CPT copyright 2021 [employer]. All rights reserved. The codes documented in this report are preliminary and upon glost kiln placer review may be revised to meet current compliance requirements. Santino King DO 07/07/2023 11:11:39 AM This report has been signed electronically. Number of Addenda: 0 Note Initiated On: 07/07/2023 10:41 AM
--- NOTE | 2023-07-07 11:12 | OP.CCLET_ITS ---
07/07/2023 Elder Reddy [address] [place] [address] Re : Upper GI endoscopy procedure for Macy Alonso Dear Dr. Redyd This procedure was performed on Friday, July 07, 2023. My impressions and recommendations are as follows: Impressions : - Grade I esophageal varices. - Portal hypertensive gastropathy. Biopsied. - Acquired duodenal stenosis. Dilated. Biopsied. Recommendations : - [facility] patient [facility]. - Continue present medications. My findings are described in the full procedure note, which is enclosed. If I can be of further assistance, please feel free to contact me at . Sincerely, Santino King DO 07/07/2023 11:11:39 AM This report has been signed electronically.
--- NOTE | 2023-07-07 12:01 | CON.PCM.RE_ITS ---
Assessment & Plan Assessment/Plan (1) Acute renal failure: QUALIFIERS: Acute renal failure type: unspecified Qualified Code(s): N17.9 - Acute kidney failure, unspecified PLAN: Baseline creatinine was 0.4 as of July 2022. No recent labs available af ter. Currently has a creatinine of more than [address] abdomen without any hydronephrosis. Urine analysis completely benign except for few leukocytes. I will send a urine eosinophils. Chronic history of thrombocytopenia. Bone marrow biopsy did not show myeloproliferative lesion. I will check a haptoglobin and LDH. Lisinopril is on hold. Continue fluids Hyperkalemia. Presumably due to VIKA and lisinopril. Better with Kayexalate. HPI Consult Data Date of Consult: 07/07/23 HPI Narrative Reason for Consultation: Acute renal failure HPI Narrative: CLARE MORALES, is a 67 F who presents hospital with mostly GI complaints. She has chronic history of GI issues with nausea, vomiting, diarrhea. It seems she developed hemoptysis and was brought in. Primary care is with [facility]. Review of records. It seems she was seen by gastroenterology at [facility], fibrosis score was elevated. Thought to be related to GILBERT. This admission, imaging is consistent with cirrhosis. She was seen by hematology at [facility], had a bone marrow biopsy. From the report that I can see, there is no evidence of myeloproliferative lesions. She does have chronic thrombocytopenia. Last known baseline creatinine was 0.4 in July 2022. Any urinary complaints such as dysuria, hematuria. No history of kidney stones, urine infections. Denies taking NSAIDs long-term basis. She says she takes Tylenol occasionally for headaches. New medications she says are heart related. Looking at her medications I would assume this is lisinopril. [facility] Medical History Diabetes Facial droop History of hypertension HTN (hypertension) Thrombocytopenia Home Medications glipizide 2.5 mg tablet, extended release 24 hr 2.5 mg PO DAILY diabetes 06/01/22 [History Last Taken Unknown] metformin 500 mg tablet,extended release 24 hr 1,000 mg PO BID diabetes 06/01/22 [History Last Taken Unknown] alendronate 70 mg tablet 70 mg PO QWEEK 07/06/23 [History Last Taken Unknown] atorvastatin 20 mg tablet 20 mg PO DAILY 07/06/23 [History Last Taken Unknown] carvedilol 6.25 mg tablet 6.25 mg PO BID 07/06/23 [History Last Taken Unknown] lisinopril 20 mg tablet 20 mg PO DAILY 07/06/23 [History Last Taken Unknown] Allergy/AdvReac Type Severity Reaction Status Date / Time No Known Allergies Allergy Verified 07/06/23 02:41 Family History Other CVA (cerebral vascular accident) Hypertension Social History Smoking Status: Never smoker ROS ROS Narrative Negative except above Physical Exam Narrative Alert awake oriented x 3 no obvious distress no pallor no icterus no JVD s1s2 no murmurs lungs clear abdomen soft no organomegaly no edema no cyanosis Lab / Micro Data 07/07/23 06:17 07/07/23 06:17 Labs: Laboratory Results - last 24 hr 07/06/23 06:15: Hepatitis A IgM Ab Negative, Hep Bs Antigen Negative, Hep B Core IgM Ab Negative, Hepatitis C Ab (EIA) Non Reactive, Hep C Ab Comment Comment 07/07/23 06:17: WBC 4.3 L, RBC 3.78 L, Hgb 11.6 L, Hct 35.8 L, MCV 94.7, MCH 30 .7, MCHC 32.4, RDW Std Deviation 53.1 H, RDW Coeff of Francisco 15.2 H, Plt Count 56 L , MPV 12.3 H, Immature Gran % (Auto) 0.500, Neut % (Auto) 54.7, Lymph % (Auto) 21.7, [place] % (Auto) 15.7 H, Eos % (Auto) 6.7 H, Baso % (Auto) 0.7, Absolute Neuts (auto) 2.4, Absolute Lymphs (auto) 0.94, Nucleated RBC % 0.5, Sodium 140, Potassium 4.7, Chloride 116 H, Carbon Dioxide 20.0 L, Anion Gap 4 L, BUN 29 H, Creatinine 2.91 H, Estim Creat Clear Calc 18.59, Est GFR (MDRD) Af Amer 21 L, Est GFR (MDRD) Non-Af 17 L, BUN/Creatinine Ratio 10.0, Glucose 104, Calcium 8.1 L Micro: Microbiology 07/07/23 02:56 Stool Stool Lactoferrin - Final 07/07/23 02:56 Stool Enteric Bacteriology - Final 07/07/23 02:56 Stool Clostridioides difficile (PCR) - Final
[2023-07-07] MEDS: Metoclopramide 10 MG/2 ML Vial 5 MG IV ×3 (12:26→23:04)
[2023-07-07] MEDS: 0.9% Saline Lock 10 ML Syringe IV (12:26)
--- NOTE | 2023-07-07 16:00 | IMM_PTH ---
PATIENT: CLARE MORALES LOC: [facility] U#:[id number] AGE/SX: 67/F ROOM: [facility] RE07/06/[address]: Dr. Oscar Delgado DO : 1955 BED: 1 DIS: 07/09/2023 SPEC #: [id number] RECD: 07/07/23 16:15 STATUS: LIBBY REQ #: [id number] SEUN: 07/07/23 16:[address]: Santino King DEPT: IMMUNOHISTOCHEMISTRY RECD BY: Abel Villalobos ENTERED: 07/07/23 16:16 SP TYPE: IMMUNO OTHR DR: DO Dr. Yecenia Burgess MD Dr. Mark Tereletsky, DO Dr. Victor Velasquez, MD Tissues: A - Stomach, NOS Procedures: H Pylori (initial) PHYSICIAN & INSTITUTION [place] [address] SPECIMEN INFORMATION: Tissue Source: A- Gastric body biopsy Clinical Info: Acute renal failure with nausea, vomiting and bleeding Specimen Number: [id number] CPT code: 43566 METHODOLOGY: Deparaffinized sections of prefer/formalin-fixed tissue or PAP/DQ stained slides are incubated with monoclonal/polyclonal antibodies/oligonucleotide probes. Localization is made via biotin free immunoperoxidase method. Appropriate controls are performed and reacted as expected. Results on target cell population are indicated in the following table: RESULTS: ANTIBODY / CLONE RESULT Block A H Pylori (polyclonal) negative These tests were developed and their performance characteristics determined by [facility]. They may not have been cleared or approved by the U.S. Food and Drug Administration. The FDA has determined that such clearance or approval is not necessary. The above immunohistochemical/dualISH markers are ordered and reviewed by the Pathologist. INTERPRETATION: A. Gastric body, biopsy: Negative for Helicobacter pylori organisms. JOANNA/ 07/08/2023
[2023-07-07 17:38] LABS: Amylase 67 U/L (25-115); Ferritin 107 ng/mL (8-252); Iron 91 ug/dL (50-170); Iron Binding Capacity,Total 365 ug/dL (250-450); Lipase 39 U/L (13-75); PERCENT IRON SATURATION 24.9 % (15.0-55.0)
--- NOTE | 2023-07-07 17:46 | PCM.PN.HOSP ---
Reason for Visit Reason for Visit: Diagnoses Thrombocytopenia, unspecified (07/06/23) Other disorders of bilirubin metabolism (07/06/23) Fatty (change of) liver, not elsewhere classified (07/06/23) Acute kidney failure, unspecified (07/06/23) Nausea with vomiting, unspecified (07/06/23) Diarrhea, unspecified (07/06/23) Adverse effect of unspecified drugs, medicaments and biological substances, initial encounter (07/06/23) Subjective Subjective Seen and examined today, her hemoglobin appears to be stable, I talked with the daughter and the patient this afternoon in her room. I had nephrology see the patient due to declining renal function, it is not certain what is going on at the present time to cause this dysfunction, she will continue to receive fluids and she is urinating. Objective Data Objective Data Vital Signs: Vital Signs Temp Pulse Resp BP Pulse Ox O2 Del Method 98.2 F 77 17 119/58 L 98 Room Air 07/07/23 11:46 07/07/23 11:46 07/07/23 11:46 07/07/23 11:46 07/07/23 11:46 07/07/23 11:46 Oxygen Delivery Method Room Air Weight: 85.12 kg Body Mass Index (BMI) 36.8 Intake & Output: Intake and Output for Last 24 Hours 07/05/23 07/06/23 07/07/23 23:59 23:59 23:59 Intake Total 3459.50 / 3459.50 2210 / 2210 Balance 3459.50 / 3459.50 2210 / 2210 Lab / Micro Data 07/07/23 06:17 07/07/23 06:17 Labs: Laboratory Results - last 24 hr 07/06/23 06:15: Hepatitis A IgM Ab Negative, Hep Bs Antigen Negative, Hep B Core IgM Ab Negative, Hepatitis C Ab (EIA) Non Reactive, Hep C Ab Comment Comment 07/07/23 06:17: WBC 4.3 L, RBC 3.78 L, Hgb 11.6 L, Hct 35.8 L, MCV 94.7, MCH 30.7, MCHC 32.4, RDW Std Deviation 53.1 H, RDW Coeff of Francisco 15.2 H, Plt Count 56 L, MPV 12.3 H, Immature Gran % (Auto) 0.500, Neut % (Auto) 54.7, Lymph % (Auto) 21.7, [place] % (Auto) 15.7 H, Eos % (Auto) 6.7 H, Baso % (Auto) 0.7, Absolute Neuts (auto) 2.4, Absolute Lymphs (auto) 0.94, Nucleated RBC % 0.5, Sodium 140, Potassium 4.7, Chloride 116 H, Carbon Dioxide 20.0 L, Anion Gap 4 L, BUN 29 H, Creatinine 2.91 H, Estim Creat Clear Calc 18.59, Est GFR (MDRD) Af Amer 21 L, Est GFR (MDRD) Non-Af 17 L, BUN/Creatinine Ratio 10.0, Glucose 104, Calcium 8.1 L 07/07/23 16:56: Iron 91, TIBC 365, Iron Saturation 24.9, Ferritin 107, Ammonia 14.0, Amylase 67, Lipase 39 Micro: Microbiology 07/07/23 02:56 Stool Stool Lactoferrin - Final 07/07/23 02:56 Stool Enteric Bacteriology - Final 07/07/23 02:56 Stool Clostridioides difficile (PCR) - Final 07/06/23 04:30 Stool Stool Occult Blood (LIZBETH) - Final Physical Exam Const alert, oriented x3 and no apparent distress Constitutional Narrative: Speaks only a little [place] General Appearance: cooperative, well kempt and well developed Orientation / Consciousness: awake, oriented to person, oriented to place and oriented to time HEENT normocephalic, head/scalp atraumatic and moist oral mucous membranes Eyes PERRL, EOMs intact bilaterally and conjunctivae normal Neck supple, no JVD, thyroid normal and no carotid bruits General: trachea midline Resp normal respiratory effort, no retractions, no use of accessory muscles and clear to auscultation bilaterally Auscultation: Negative for rales, rhonchi or wheezes Cardio regular rate, regular rhythm, S1 normal heart sound, S2 normal heart sound, no murmurs, no rub and no gallops GI normal to inspection, nondistended, normoactive bowel sounds, soft to palpation, non-tender and non-distended Extremity no clubbing, cyanosis or edema Skin no rashes or lesions noted General Skin Exam: no breakdown Neuro oriented x3, CN's II-XII intact bilaterally, moves all extremities, no focal motor deficits and no sensory deficits noted Sensorium / Orientation: awake and alert Speech: speech normal Psych affect normal Assessment & Plan Assessment/Plan (1) Acute renal failure: QUALIFIERS: Acute renal failure type: unspecified Qualified Code(s): N17.9 - Acute kidney failure, unspecified (2) Nausea vomiting and diarrhea: PLAN: Plan 1. Acute kidney injury-I will continue to administer fluids to the patient, if her creatinine has not changed appreciably tomorrow, patient's renal ultrasound was unremarkable, nephrology is seeing the patient in consultation. #2 esophageal varices-indicative of possible cirrhosis, gastroenterology is participating in her care #3 colitis as indicated by patient's CT scan-patient unfortunately does not have the symptomology for colitis at this time, I have elected to keep her on IV antibiotics for now and reevaluate her. She may ultimately need an outpatient colonoscopy. #4 type 2 diabetes-patient's blood sugars will be monitored, sliding scale insulin will be given to the patient, she is on glipizide and metformin as an outpatient #5 chronic intermittent diarrhea-patient states that she had diarrhea over the last several weeks, she has been on metformin for longer than that however so I think it is unlikely the metformin could be causing her symptomology. It is possible this patient may have microscopic colitis but the patient's CT reads out evidence of colitis. Again patient may need an outpatient colonoscopy to resolve this issue. 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 Total clinical time spent by myself addressing the patient's medical issues, reviewing all of her data, and collaborating with patient's care team: 50 minutes Charges/Coding Visit Charges Inpatient E&M: 16093 Subs Hosp L3
[2023-07-08 02:00] VITALS: BP 122/66; PULSE 84; RESP 18; TEMP 36.7; O2SAT 99
[2023-07-08 03:26] VITALS: BMI 37.8
[2023-07-08] MEDS: 0.9% Normal Saline (1000mL) 1,000 ML 125 ML IV ×3 (03:28→21:03)
[2023-07-08] MEDS: Metoclopramide 10 MG/2 ML Vial 5 MG IV ×4 (05:11→23:34)
[2023-07-08 07:42] VITALS: O2SAT 95
[2023-07-08 08:09] LABS: LDH 304 U/L (84-246)
[2023-07-08 08:43] LABS: Albumin, Serum 2.9 g/dL (3.2-5.0); BUN 30 mg/dL (7-18); BUN/Creat Ratio 11.3 RATIO (10-20); Chloride 115 mmol/L (98-107); Creatinine, Serum 2.66 mg/dL (0.55-1.02); EST Glomerular Filtration Rate 19 mL/min (>60); Est Glom Filt Rate - Afr Amer 23 mL/min (>60); Estimated Creatinine Clearance 20.72 ml/min; Glucose 100 mg/dL (74-106); Phosphorus 3.4 mg/dL (2.5-4.9); Potassium 4.7 mmol/L (3.5-5.1); Sodium Level 141 mmol/L (136-145)
[2023-07-08 09:55] VITALS: BP 136/87; PULSE 75; RESP 16; TEMP 35.9; O2SAT 100
[2023-07-08] MEDS: Pantoprazole Sodium 40 MG in 0.9% Normal Saline (100mL MB+) 100 ML 330 MG IV ×2 (10:03→21:09)
[2023-07-08] MEDS: 0.9% Saline Lock 10 ML Syringe IV ×2 (12:56→23:34)
--- NOTE | 2023-07-08 13:20 | PN.RENAL_ITS ---
Subjective Subjective No new complaints today Objective Data Objective Data Vital Signs: Vital Signs Temp Pulse Resp BP Pulse Ox O2 Del Method 96.7 F L 75 16 136/87 H 100 Room Air 07/08/23 09:55 07/08/23 09:55 07/08/23 09:55 07/08/23 09:55 07/08/23 09:55 07/08/23 09:55 Oxygen Delivery Method Room Air Weight: 87.4 kg Body Mass Index (BMI) 37.8 Intake & Output: Intake and Output for Last 24 Hours 07/06/23 07/07/23 07/08/23 23:59 23:59 23:59 Intake Total 3459.50 / 3459.50 3326.25 / 3326.25 2027.75 / 2027. Output Total Balance 3459.50 / 3459.50 3326.25 / 3326.25 202.75 / 2026.75 Lab / Micro Data 07/07/23 06:17 07/08/23 06:55 Labs: Laboratory Results - last 24 hr 07/07/23 16:56: Iron 91, TIBC 365, Iron Saturation 24.9, Ferritin 107, Ammonia 14.0, Amylase 67, Lipase 39 07/08/23 06:55: Sodium 141, Potassium 4.7, Chloride 115 H, Carbon Dioxide 17.0 L , BUN 30 H, Creatinine 2.66 H, Estim Creat Clear Calc 20.72, Est GFR (MDRD) Af Amer 23 L, Est GFR (MDRD) Non-Af 19 L, BUN/Creatinine Ratio 11.3, Glucose 100, Calcium 8.0 L, Phosphorus 3.4, Lactate Dehydrogenase 304 H, Albumin 2.9 L Micro: Microbiology 07/07/23 02:56 Stool Stool Lactoferrin - Final 07/07/23 02:56 Stool Enteric Bacteriology - Final 07/07/23 02:56 Stool Clostridioides difficile (PCR) - Final 07/06/23 04:30 Stool Stool Occult Blood (LIZBETH) - Final Physical Exam Narrative Alert awake oriented x 3 no obvious distress no pallor no icterus no JVD s1s2 no murmurs lungs clear abdomen soft no organomegaly no edema no cyanosis Assessment & Plan Assessment/Plan (1) Acute renal failure: QUALIFIERS: Acute renal failure type: unspecified Qualified Code(s): N17.9 - Acute kidney failure, unspecified PLAN: Baseline creatinine was 0.4 as of July 2022. No recent labs available after. Peak creatinine 2.9, slightly better at 2.[address] abdomen without any hydronephrosis. Urine analysis completely benign except for few leukocytes. pending urine eosinophils. Chronic history of thrombocytopenia. Bone marrow biopsy did not show myeloproliferative lesion. LDH is elevated, haptoglobin pending Lisinopril is on hold. Continue fluids Hyperkalemia. Presumably due to VIKA and lisinopril. Better with Kayexalate. Urine output has been okay according to her. Since creatinine is improving, possible this is all volume depletion that required more IV fluids. Asking about going home. If creatinine is better tomorrow, can be discharged from my end and will arrange outpatient follow-up.
[2023-07-08 15:07] VITALS: BP 93/74; PULSE 76; RESP 16; TEMP 36.1; O2SAT 100
--- NOTE | 2023-07-08 17:49 | PN.GI_ITS ---
Subjective Subjective Patient is doing well seems more like herself today. She has more energy. She has not been on lactulose for hepatic encephalopathy prophylaxis due to her ongoing diarrhea. That has also been a little bit better today. Her kidney function is improving. She asked that she go home. Objective Data Objective Data Vital Signs: Vital Signs Temp Pulse Resp BP Pulse Ox O2 Del Method 96.9 F L 76 16 93/74 100 Room Air 07/08/23 15:07 07/08/23 15:07 07/08/23 15:07 07/08/23 15:07 07/08/23 15:07 07/08/23 15:07 Oxygen Delivery Method Room Air Weight: 192 lb 10.944 oz Body Mass Index (BMI) 37.8 Intake & Output: Intake and Output for Last 24 Hours 07/06/23 07/07/23 07/08/23 23:59 23:59 23:59 Intake Total 3459.50 / 3459.50 3326.25 / 3326.25 2028.75 / 2027.75 Output Total Balance 3459.50 / 3459.50 3326.25 / 3326.25 2027.75 / 2026.75 Lab / Micro Data 07/07/23 06:17 07/08/23 06:55 Labs: Laboratory Results - last 24 hr 07/08/23 06:55: Sodium 141, Potassium 4.7, Chloride 115 H, Carbon Dioxide 17.0 L , BUN 30 H, Creatinine 2.66 H, Estim Creat Clear Calc 20.72, Est GFR (MDRD) Af Amer 23 L, Est GFR (MDRD) Non-Af 19 L, BUN/Creatinine Ratio 11.3, Glucose 100, Calcium 8.0 L, Phosphorus 3.4, Lactate Dehydrogenase 304 H, Albumin 2.9 L Micro: Microbiology 07/07/23 02:56 Stool Stool Lactoferrin - Final 07/07/23 02:56 Stool Enteric Bacteriology - Final 07/07/23 02:56 Stool Clostridioides difficile (PCR) - Final 07/06/23 04:30 Stool Stool Occult Blood (LIZBETH) - Final Physical Exam Narrative Alert awake oriented x 3 no obvious distress no pallor no icterus no JVD s1s2 no murmurs lungs clear abdomen soft no organomegaly no edema no cyanosis Assessment & Plan Assessment/Plan (1) Acute renal failure: QUALIFIERS: Acute renal failure type: unspecified Qualified Code(s): N17.9 - Acute kidney failure, unspecified (2) Nausea vomiting and diarrhea: (3) Adverse drug reaction: QUALIFIERS: Encounter type: initial encounter Qualified Code(s): T50.905A - Adverse effect of unspecified drugs, medicaments and biological substances, initial encounter (4) Hyperbilirubinemia: (5) Fatty liver disease, nonalcoholic: (6) Thrombocytopenia: PLAN: Plan 67-year-old with past medical history of diabetes, obesity presents with nausea and vomiting and discovered to have inflammation in her colon. 1. CT scan on admission suspicious for ascending colitis in the setting of known fatty liver disease with mild hyperbilirubinemia of 1.3 mg/dL, elevated AST of 67 units/L and alkaline phosphatase of 197 units/L present on admission - differential diagnosis does include mild ischemic colitis, infectious colitis and less likely inflammatory bowel disease. Recommend check stool studies, inflammatory markers. She may need colonoscopy in the future. 2. Nausea and vomiting with primarily bilious emesis with minimal blood streaking and nonbloody diarrhea with suspected component of dehydration due to #1 - Place on enteric and aspiration precautions. Give IV Protonix 40 mg twice daily. Give Zofran IV as needed for nausea or vomiting. Check stool studies: C. difficile A&B toxin PCR, stool ova and parasites, fecal white blood cells and Hemoccult. Keep n.p.o. except for ice chips, sips and medications. Patient would likely need EGD to evaluate upper GI tract 3. Elevated creatinine of 2.88 mg/dL with a BUN of 30 mg/dL present on admission consistent with suspected acute renal failure likely due at least on part to an Adverse Drug Reaction to Lisinopril complicating #1 & #2 - Give vigorous IV volume resuscitation and recheck BMP to positive response to therapy. 4. Chronic thrombocytopenia with platelet count of 59 present on admission adding to the pathology of #1 - #3 - Check CBC daily to ensure continued stability. Avoid heparin or heparinoid's with platelet count less than 100. Differential diagnosis does include portal hypertension, splenomegaly, cirrhosis 07/08/23-cirrhosis currently with a MELD of 18 and a child Bell class B complicated by esophageal varices, thrombocytopenia, mild ascites, mild encephalopathy and acute kidney injury status post upper GI bleed. Autoimmune workup is pending along with workup for hemochromatosis, sarcoidosis, amyloidosis as etiology of cirrhosis. She should be discharged on Xifaxan 550 p.o. twice daily and sodium restricted diet. She will also need MELD labs in approximately a week along with INR. If patient goes home then we can do colonoscopy as outpatient as she is clinically improving. Charges/Coding Visit Charges Inpatient E&M: 83540 Subs Hosp L3
[2023-07-08 19:08] LABS: Urine Sodium 44 mmol/L (Not Establ.)
--- NOTE | 2023-07-08 20:35 | PCM.PN.HOSP ---
Reason for Visit Reason for Visit: Diagnoses Thrombocytopenia, unspecified (07/06/23) Other disorders of bilirubin metabolism (07/06/23) Fatty (change of) liver, not elsewhere classified (07/06/23) Acute kidney failure, unspecified (07/06/23) Nausea with vomiting, unspecified (07/06/23) Diarrhea, unspecified (07/06/23) Adverse effect of unspecified drugs, medicaments and biological substances, initial encounter (07/06/23) Subjective Subjective Patient was seen and examined today, her creatinine improved slightly today, I will recheck renal profile tomorrow Objective Data Objective Data Vital Signs: Vital Signs Temp Pulse Resp BP Pulse Ox O2 Del Method 96.9 F L 76 16 93/74 100 Room Air 07/08/23 15:07 07/08/23 15:07 07/08/23 15:07 07/08/23 15:07 07/08/23 15:07 07/08/23 15:07 Oxygen Delivery Method Room Air Weight: 87.4 kg Body Mass Index (BMI) 37.8 Intake & Output: Intake and Output for Last 24 Hours 07/06/23 07/07/23 07/08/23 23:59 23:59 23:59 Intake Total 3459.50 / 3459.50 3326.25 / 3326.25 2028.75 / 2027.75 Output Total Balance 3459.50 / 3459.50 3326.25 / 3326.25 2027.75 / 2026.75 Lab / Micro Data 07/07/23 06:17 07/08/23 06:55 Labs: Laboratory Results - last 24 hr 07/08/23 06:55: Sodium 141, Potassium 4.7, Chloride 115 H, Carbon Dioxide 17.0 L, BUN 30 H, Creatinine 2.66 H, Estim Creat Clear Calc 20.72, Est GFR (MDRD) Af Amer 23 L, Est GFR (MDRD) Non-Af 19 L, BUN/Creatinine Ratio 11.3, Glucose 100, Calcium 8.0 L, Phosphorus 3.4, Lactate Dehydrogenase 304 H, Albumin 2.9 L 07/08/23 18:35: Ur Random Sodium 44, Miscellaneous Test Cancelled Micro: Microbiology 07/07/23 02:56 Stool Stool Lactoferrin - Final 07/07/23 02:56 Stool Enteric Bacteriology - Final 07/07/23 02:56 Stool Clostridioides difficile (PCR) - Final 07/06/23 04:30 Stool Stool Occult Blood (LIZBETH) - Final Physical Exam Narrative alert, oriented x3 and no apparent distress Constitutional Narrative: Speaks only a little [place] General Appearance: cooperative, well kempt and well developed Orientation / Consciousness: awake, oriented to person, oriented to place and oriented to time HEENT normocephalic, head/scalp atraumatic and moist oral mucous membranes Eyes PERRL, EOMs intact bilaterally and conjunctivae normal Neck supple, no JVD, thyroid normal and no carotid bruits General: trachea midline Resp normal respiratory effort, no retractions, no use of accessory muscles and clear to auscultation bilaterally Auscultation: Negative for rales, rhonchi or wheezes Cardio regular rate, regular rhythm, S1 normal heart sound, S2 normal heart sound, no murmurs, no rub and no gallops GI normal to inspection, nondistended, normoactive bowel sounds, soft to palpation, non-tender and non-distended Extremity no clubbing, cyanosis or edema Skin no rashes or lesions noted General Skin Exam: no breakdown Neuro oriented x3, CN's II-XII intact bilaterally, moves all extremities, no focal motor deficits and no sensory deficits noted Sensorium / Orientation: awake and alert Speech: speech normal Psych affect normal Assessment & Plan Assessment/Plan (1) Fatty liver disease, nonalcoholic: (2) Acute renal failure: QUALIFIERS: Acute renal failure type: unspecified Qualified Code(s): N17.9 - Acute kidney failure, unspecified (3) Nausea vomiting and diarrhea: PLAN: Plan 1. Acute kidney injury-I will continue to administer fluids to the patient, if her creatinine has not changed appreciably tomorrow, patient's renal ultrasound was unremarkable, nephrology is seeing the patient in consultation. 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 Total clinical time spent by myself addressing the patient's medical issues, reviewing all of her data, and collaborating with patient's care team: 35 minutes Charges/Coding Visit Charges Inpatient E&M: 36392 Subs Hosp L2
[2023-07-08 21:00] VITALS: BP 123/79; PULSE 88; RESP 16; TEMP 36.4; O2SAT 100
[2023-07-08] MEDS: Menthol/Lanolin/Calamine/Znox 113 GM Tube 1 APPLIC TOPICAL (23:34)
[2023-07-09] MEDS: Loperamide 2 MG Capsule PO (00:29)
[2023-07-09 02:29] VITALS: BMI 40.1
[2023-07-09 03:10] VITALS: BP 113/65; PULSE 78; RESP 16; TEMP 35.7; O2SAT 98
[2023-07-09] MEDS: Metoclopramide 10 MG/2 ML Vial 5 MG IV ×2 (05:06→11:48)
[2023-07-09] MEDS: 0.9% Saline Lock 10 ML Syringe IV ×2 (05:06→11:50)
[2023-07-09 05:07] LABS: Haptoglobin 38 mg/dL (37-355)
[2023-07-09] MEDS: 0.9% Normal Saline (1000mL) 1,000 ML 125 ML IV (05:08)
[2023-07-09 08:17] VITALS: BP 156/93; PULSE 82; RESP 16; TEMP 36.7; O2SAT 100
[2023-07-09 09:04] LABS: Absolute Lymphocyte Count 1.49 X10^3/uL (0.83-4.51); Absolute Neutrophil Count 2.7 X10^3/uL (2.0-7.7); Basophil# 0.03 X10^3/uL; Basophil% 0.6 % (0-1); Eosinophil# 0.29 X10^3/uL; Eosinophils% 5.8 % (0-5); Hematocrit 35.5 % (37-47); Hemoglobin 11.6 g/dL (12.0-15.0); Lymphocyte # 1.49 X10^3/ul (0.83-4.51); Lymphocyte % 29.6 % (19-41); Mean Corp Hgb Conc 32.7 g/dL (32-36); Mean Corpuscular Hgb 30.8 pg (27.0-32.0); Mean Corpuscular Volume 94.2 fL (81-99); Mean Platelet Vol. 12.3 fl (6.2-12.0); Monocyte# 0.56 X10^3/uL; Monocyte% 11.1 % (0-10); NRBC Flagged by Analyzer 0 % (0-5); Neutrophil # 2.65 X10^3/uL (2.7-7.7); Neutrophil % 52.5 % (47-70); POSITIVE COUNT YES; Platelet Count 55 K/mm3 (150-450); RBC Distribution Width CV 15.1 % (11.6-14.6); RBC Distribution Width SD 52.2 fl (35.1-43.9); Red Blood Count 3.77 M/mm3 (4.2-5.4)
[2023-07-09 09:17] LABS: Albumin, Serum 2.9 g/dL (3.2-5.0); BUN 25 mg/dL (7-18); BUN/Creat Ratio 10.5 RATIO (10-20); Calcium,Total 8.1 mg/dL (8.5-10.1); Chloride 117 mmol/L (98-107); Creatinine, Serum 2.37 mg/dL (0.55-1.02); EST Glomerular Filtration Rate 22 mL/min (>60); Est Glom Filt Rate - Afr Amer 26 mL/min (>60); Estimated Creatinine Clearance 24.04 ml/min; Glucose 82 mg/dL (74-106); Potassium 4.3 mmol/L (3.5-5.1); Sodium Level 139 mmol/L (136-145)
[2023-07-09] MEDS: Pantoprazole Sodium 40 MG in 0.9% Normal Saline (100mL MB+) 100 ML 330 MG IV (09:44)
[2023-07-09 13:45] VITALS: BP 140/74; PULSE 94; RESP 16; TEMP 36.6; O2SAT 100
--- NOTE | 2023-07-09 13:47 | PN.RENAL_ITS ---
Subjective Subjective No new complaints. Objective Data Objective Data Vital Signs: Vital Signs Temp Pulse Resp BP Pulse Ox O2 Del Method 98.1 F 82 16 156/93 H 100 Room Air 07/09/23 08:17 07/09/23 08:17 07/09/23 08:17 07/09/23 08:17 07/09/23 08:17 07/09/23 08:17 Oxygen Delivery Method Room Air Weight: 92.6 kg Body Mass Index (BMI) 40.1 Intake & Output: Intake and Output for Last 24 Hours 07/07/23 07/08/23 07/09/23 23:59 23:59 23:59 Intake Total 3326.25 / 3326.25 3159.58 / 3359.58 2232.92 / 2232.92 Output Total Balance 3326.25 / 3326.25 3158.58 / 3358.58 2232.92 / 2232.92 Lab / Micro Data 07/09/23 08:30 07/09/23 08:30 Labs: Laboratory Results - last 24 hr 07/08/23 06:55: Haptoglobin 38 07/08/23 18:35: Ur Random Sodium 44, Miscellaneous Test Cancelled 07/09/23 08:30: WBC 5.0, RBC 3.77 L, Hgb 11.6 L, Hct 35.5 L, MCV 94.2, MCH 30.8, MCHC 32.7, RDW Std Deviation 52.2 H, RDW Coeff of Francisco 15.1 H, Plt Count 55 L, MPV 12.3 H, Immature Gran % (Auto) 0.400, Neut % (Auto) 52.5, Lymph % (Auto) 29.6, [place] % (Auto) 11.1 H, Eos % (Auto) 5.8 H, Baso % (Auto) 0.6, Absolute Neuts (auto) 2.7, Absolute Lymphs (auto) 1.49, Nucleated RBC % 0, Sodium 139, Potassium 4.3, Chloride 117 H, Carbon Dioxide 15.0 L, BUN 25 H, Creatinine 2.37 H, Estim Creat Clear Calc 24.04, Est GFR (MDRD) Af Amer 26 L, Est GFR (MDRD) Non-Af 22 L, BUN/Creatinine Ratio 10.5, Glucose 82, Calcium 8.1 L, Phosphorus 3.0, Albumin 2.9 L Micro: Microbiology 07/07/23 02:56 Stool Stool Lactoferrin - Final 07/07/23 02:56 Stool Enteric Bacteriology - Final 07/07/23 02:56 Stool Clostridioides difficile (PCR) - Final 07/06/23 04:30 Stool Stool Occult Blood (LIZBETH) - Final Physical Exam Narrative Alert awake oriented x 3 no obvious distress no pallor no icterus no JVD s1s2 no murmurs lungs clear abdomen soft no organomegaly no edema no cyanosis Assessment & Plan Assessment/Plan (1) Acute renal failure: QUALIFIERS: Acute renal failure type: unspecified Qualified Code(s): N17.9 - Acute kidney failure, unspecified PLAN: Baseline creatinine was 0.4 as of July 2022. No recent labs available after. Peak creatinine 2.9, slightly better at 2.[address] abdomen without any hydronephrosis. Urine analysis completely benign except for few leukocytes. pending urine eosinophils. Chronic history of thrombocytopenia. Bone marrow biopsy did not show myeloproliferative lesion. LDH is elevated, Haptoglobin is normal. Unlikely hemolytic anemia. Chronic thrombocytopenia likely related to cirrhosis Lisinopril is on hold. Hyperkalemia. Presumably due to VIKA and lisinopril. Better with Kayexalate. Creatinine has been improving. Asking about going home. From a nephrology standpoint, she can be discharged. We will arrange follow-up in office in about 1 to 2 weeks.
[2023-07-09] MEDS: Sodium Bicarbonate 650 MG Tablet 1300 MG PO (13:49)
--- NOTE | 2023-07-09 14:41 | DCINST_ITS ---
Discharge Instructions Diet Discharge Diet: 1800 Calorie Control Diet Activity Discharge Activity: Return to Normal Activity Weight Bearing Status: Full weight bearing Follow Up Care Test Results: Test results from this visit will be discussed in further detail at your follow- up appointment, if applicable. Discharge Plan Admission Admit Date/Time: 07/06/23 04:42 Primary Reason for Your Visit: hematemesis, acute kidney injury Attending Provider: Oscar Delgado Primary Care Provider: Elder Reddy Consulting Providers: Francisco Gong; Yecenia Quinonez Discharge Orders/Prescriptions Prescriptions: New pantoprazole [Protonix] 40 mg tablet,delayed release (DR/EC) 40 mg PO BID Qty: 60 0RF metoclopramide HCl [Reglan] 5 mg tablet 5 mg PO TID Qty: 90 0RF Rx Instructions: one hour before meals amlodipine [Norvasc] 5 mg tablet 5 mg PO DAILY Qty: 30 0RF Continued alendronate 70 mg tablet 70 mg PO QWEEK atorvastatin 20 mg tablet 20 mg PO DAILY Discontinued glipizide 2.5 mg tablet extended release 24hr 2.5 mg PO DAILY Patient Comments: TAKE 1 TABLET BY MOUTH ONCE DAILY metformin 500 mg tablet extended release 24 hr 1,000 mg PO BID Patient Comments: TAKE 2 TABLETS BY MOUTH TWICE DAILY WITH MEALS carvedilol 6.25 mg tablet 6.25 mg PO BID lisinopril 20 mg tablet 20 mg PO DAILY Referrals / Follow Up: Yecenia Quinonez MD [Med Staff - Consulting] - Within 2 Weeks (call for an appointment) Santino King DO [Med Staff - Active Staff] - See Referral Note (in 3 weeks- call for appointment) Elder Reddy MD [Primary Care Provider] - Within 1 Month Disposition Disposition (needs filled in before D/C Order can be placed): Home, Self Care
--- NOTE | 2023-07-09 14:55 | PCM.DC.SUM ---
Providers Date of Admission: 07/06/23 Date of Discharge: 07/09/23 Primary Care Physician: Dr. Elder Reddy MD Consultations 07/06/23 18:15 Consult: Gastroenterology Routine Consulting Provider: [facility] Reason for Consult: sangeetha for EGD, ? colonoscopy, hematemesis, chronic reflux EMERGENT Consult: No MD Notified: Yes Date Notified: 07/06/23 Time Notified: 18:15 Method of Notification: Text 07/07/23 09:32 Consult: Nephrology Routine Consulting Provider: Yecenia Quinonez Reason for Consult: acute renal failure EMERGENT Consult: No Notified: Yes Date Notified: 07/07/23 Time Notified: 09:32 Method of Notification: Verbal Reason For Visit: ACUTE RENAL FAILURE WITH NAUSEA VOMITING AND Diagnosis Discharge Diagnosis (1) Acute renal failure: Status: Acute Code(s): N17.9 - Acute kidney failure, unspecified Qualifiers: Acute renal failure type: unspecified Qualified Code(s): N17.9 - Acute kidney failure, unspecified Plan 1. Acute kidney injury-I will continue to administer fluids to the patient, if her creatinine has not changed appreciably tomorrow, patient's renal ultrasound was unremarkable, nephrology is seeing the patient in consultation. 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 Total clinical time spent by myself addressing the patient's medical issues, reviewing all of her data, and collaborating with patient's care team: 35 minutes Medications at Discharge Home Medications alendronate 70 mg tablet 70 mg PO QWEEK 07/06/23 atorvastatin 20 mg tablet 20 mg PO DAILY 07/06/23 amlodipine 5 mg tablet (Norvasc) 5 mg PO DAILY #30 tabs 07/09/23 metoclopramide HCl 5 mg tablet (Reglan) 5 mg PO TID #90 tabs 07/09/23 pantoprazole 40 mg tablet,delayed release (Protonix) 40 mg PO BID #60 tabs 07/09/23 rifaximin 550 mg tablet (Xifaxan) 550 mg PO BID #60 tabs 07/09/23 Hospital Course Operations None Procedures EGD Summary of Care Provided Minutes Spent on Discharge: 31 Hospital Course: This Sinhala Beninese female was seen in the emergency room at [facility] with complaints of vomiting up blood and nausea and vomiting. Workup in the emergency room included labs which revealed an elevated creatinine and BUN, patient's hemoglobin was normal, her platelet count was low at 59,000. Patient had a history of low platelet counts and had underwent a bone marrow as an outpatient but no exact etiology for the thrombocytopenia was determined. Patient's CAT scan of the abdomen indicated presence of cirrhosis, it also indicated the patient could have colitis and she was given IV antibiotics. Patient was admitted to [facility] floor, she was given IV fluids, she was seen in consultation by gastroenterology and nephrology. Patient's renal functions slowly improved during her hospitalization, the exact reason for her acute kidney injury was unknown. Patient's EGD showed evidence of varices and portal hypertensive gastropathy, 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 Gastroenterology did not feel the patient had colitis and her antibiotics were stopped. On 07/09/2023, patient was seen and examined: On examination she appeared in good health and spirits, she does not appear to be in any distress. Vital signs as documented. Skin warm and dry and without overt rashes. Neck without JVD, thyroid appears normal, trachea is midline, neck is supple. Lungs clear, normal air movement was noted. Heart exam notable for regular rhythm, normal sounds and absence of murmurs, rubs or gallops. Abdomen unremarkable and without evidence of organomegaly, masses, or abdominal aortic enlargement, bowel sounds are present in all 4 quadrants, no abdominal tenderness was noted. Extremities nonedematous, no cyanosis was noted, no clubbing was noted. Neuro: Cranial nerves II through XII are grossly intact, no focal motor deficits were noted, sensation to light touch and pinprick is intact, motor exam 5/5 throughout. Psych: Patient is alert and oriented x3, she does not appear anxious or depressed, she does not appear agitated. Patient was felt to be stable for discharge home on 07/09/2023. Patient was felt to have evidence of cirrhosis and was going to follow-up with Dr. King as an outpatient. It was recommended the patient go on Xifaxan but this had to be preauthorized and gastroenterology stated they would do it in the office when she follows up for an appointment. Patient was also to follow-up with nephrology. Weight / BMI Weight Weight: 92.6 kg Body Mass Index (BMI) 40.1 ABG / Lab / Microbiology Data 07/09/23 08:30 07/09/23 08:30 Laboratory: Laboratory Results - last 24 hr 07/08/23 06:55: Haptoglobin 38 07/08/23 18:35: Ur Random Sodium 44, Miscellaneous Test Cancelled 07/09/23 08:30: WBC 5.0, RBC 3.77 L, Hgb 11.6 L, Hct 35.5 L, MCV 94.2, MCH 30.8, MCHC 32.7, RDW Std Deviation 52.2 H, RDW Coeff of Francisco 15.1 H, Plt Count 55 L, MPV 12.3 H, Immature Gran % (Auto) 0.400, Neut % (Auto) 52.5, Lymph % (Auto) 29.6, [place] % (Auto) 11.1 H, Eos % (Auto) 5.8 H, Baso % (Auto) 0.6, Absolute Neuts (auto) 2.7, Absolute Lymphs (auto) 1.49, Nucleated RBC % 0, Sodium 139, Potassium 4.3, Chloride 117 H, Carbon Dioxide 15.0 L, BUN 25 H, Creatinine 2.37 H, Estim Creat Clear Calc 24.04, Est GFR (MDRD) Af Amer 26 L, Est GFR (MDRD) Non-Af 22 L, BUN/Creatinine Ratio 10.5, Glucose 82, Calcium 8.1 L, Phosphorus 3.0, Albumin 2.9 L Microbiology: Microbiology 07/07/23 02:56 Stool Stool Lactoferrin - Final 07/07/23 02:56 Stool Enteric Bacteriology - Final 07/07/23 02:56 Stool Clostridioides difficile (PCR) - Final 07/06/23 04:30 Stool Stool Occult Blood (LIZBETH) - Final D/C Instructions Discharge Diet: 1800 Calorie Control Diet Weight Bearing Status: Full weight bearing Meaningful Use Info Meaningful Use Meaningful Use Diagnoses (Choose all that apply): None applicable Ischemic Stroke Statin Dosing Therapy Reference: STATIN DOSE THERAPY REFERENCE: * Patients > 75 years receive moderate or high dose statin therapy. * Patients 75 years or YOUNGER should receive HIGH intensity statin dose unless contraindicated. You will be required to document reason for non-treatment if statin daily dose does not meet guidelines. HIGH DOSE STATIN THERAPY DAILY Atorvastatin > than or = to 40 mg Rosuvastatin > than or = to 20 mg Amlodipine + Atorvastatin > than or = to 2.5/40 mg Ezetimibe + Simvastatin 10/80 mg Simvastatin 80mg Discharge Plan Admission Admit Date/Time: 07/06/23 04:42 Primary Reason for Your Visit: hematemesis, acute kidney injury Attending Provider: Oscar Delgado Primary Care Provider: Elder Reddy Consulting Providers: Francisco Gong; Yecenia Quinonez Instructions Additional Instructions / Restrictions: Omit Xifaxan, you will need prior authorization for this med, . Friend's office may be able to help you obtain prior authorization Discharge Orders/Prescriptions Prescriptions: New pantoprazole [Protonix] 40 mg tablet,delayed release (DR/EC) 40 mg PO BID Qty: 60 0RF metoclopramide HCl [Reglan] 5 mg tablet 5 mg PO TID Qty: 90 0RF Rx Instructions: one hour before meals amlodipine [Norvasc] 5 mg tablet 5 mg PO DAILY Qty: 30 0RF Xifaxan 550 mg tablet 550 mg PO BID Qty: 60 0RF Continued alendronate 70 mg tablet 70 mg PO QWEEK atorvastatin 20 mg tablet 20 mg PO DAILY Discontinued glipizide 2.5 mg tablet extended release 24hr 2.5 mg PO DAILY Patient Comments: TAKE 1 TABLET BY MOUTH ONCE DAILY metformin 500 mg tablet extended release 24 hr 1,000 mg PO BID Patient Comments: TAKE 2 TABLETS BY MOUTH TWICE DAILY WITH MEALS carvedilol 6.25 mg tablet 6.25 mg PO BID lisinopril 20 mg tablet 20 mg PO DAILY Referrals / Follow Up: Yecenia Quinonez MD [Med Staff - Consulting] - Within 2 Weeks (office closed at date of discharge-please call to schedule) Santino King DO [Med Staff - Active Staff] - 10/08/23 9:30 am (in 3 weeks-call for appointment) Elder Reddy MD [Primary Care Provider] - 07/15/23 2:20 pm Disposition Disposition (needs filled in before D/C Order can be placed): Home, Self Care Charges/Coding Visit Charges Inpatient E&M: 55532 Disch Hosp >30min
--- NOTE | 2023-07-09 15:17 | CASEMGMT ---
Patient has order for discharge. RN CM in to discuss needs at discharge. Patient denies needs or help at discharge. Patient had no further questions or concerns.
[2023-07-09 16:10] LABS: Alpha Antitrypsin Serum 170 mg/dL (101-187); Anti-Centromere B Ab <0.2 AI (0.0-0.9); Anti-Chromatin <0.2 AI (0.0-0.9); Anti-Jo <0.2 AI (0.0-0.9); Anti-Mitochondrial AB <20.0 Units (0.0-20.0); Anti-Scleroderma-70 AB <0.2 AI (0.0-0.9); Anti-dsDNA Ab <1 IU/mL (0-9); RNP Ab <0.2 AI (0.0-0.9); SJOGREN'S Anti-SS-A test < 0.2 AI (0.0-0.9); SJOGREN'S Anti-SS-B test < 0.2 AI (0.0-0.9); Smith Ab <0.2 AI (0.0-0.9)
[2023-07-14 21:07] LABS: AFP, Tumor Marker 4.9 ng/mL (0.0-9.2); Albumin 3.4 g/dL (2.9-4.4); Alpha-1-Globulins 0.3 g/dL (0.0-0.4); Alpha-2-Globulins 0.5 g/dL (0.4-1.0); Anti-Smooth Muscle ABS 7 Units (0-19); Ceruloplasmin 28.5 mg/dL (19.0-39.0); Cytoplasmic Ab (C-ANCA) <1:20 titer (Neg:<1:20); Gamma Globulin 1.3 g/dL (0.4-1.8); Immunoglobulin A 373 mg/dL (87-352); Immunoglobulin E 104 IU/mL (6-495); Immunoglobulin G 1298 mg/dL (586-1602); Immunoglobulin M 156 mg/dL (26-217); PROEL- TOTAL PROTEIN 6.4 g/dL (6.0-8.5); Perinuclear Ab (P-ANCA) <1:20 titer (Neg:<1:20)
== END 2023-07-09 17:16 | disposition home or self-care (01) | DRG 377 ==
LOC: ED 04:22 → ICU 05:27 → PCU 07-07 18:50
PROVIDERS: Internal Medicine Gastroenterology; Internal Medicine Nephrology; Admitting Provider Internal Medicine; Emergency Provider Emergency Medicine; PCP Internal Medicine; Visit Provider Internal Medicine
PROC: 0DJ08ZZ Inspection of Upper Intestinal Tract, Via Natural or Artificial Opening Endoscopic (ICD-10-PCS; CPT 43235; principal; 2023-07-07 15:55)
DX: K29.51 Unspecified chronic gastritis with bleeding (principal); I85.11 Secondary esophageal varices with bleeding; N17.9 Acute kidney failure, unspecified; K76.6 Portal hypertension; K31.5 Obstruction of duodenum; D69.6 Thrombocytopenia, unspecified; E11.9 Type 2 diabetes mellitus without complications; I10 Essential (primary) hypertension; E78.5 Hyperlipidemia, unspecified; E87.5 Hyperkalemia; K76.0 Fatty (change of) liver, not elsewhere classified; E66.9 Obesity, unspecified; Z68.36 Body mass index [BMI] 36.0-36.9, adult; Z79.83 Long term (current) use of bisphosphonates; Z79.84 Long term (current) use of oral hypoglycemic drugs; Z79.899 Other long term (current) drug therapy
CPT/HCPCS: 36415; 74022; 74176; 80048; 80053; 80069; 80074; 80076; 81001; 82103; 82105; 82140; 82150; 82274; 82390; 82728; 82784; 82785; 83010; 83036; 83516; 83540; 83550; 83605; 83615; 83630; 83690; 83735; 84100; 84165; 84300; 85025; 85610; 85730; 86225; 86235; 86256; 86334; 87177; 87209; 87493; 87506; 88305; 88342; 94668; 97161; 99284; J7030; A4216; J2405

== ENCOUNTER → 2023-07-13 | Outpatient (CLI) | payer MEDICARE, MEDICAID, SELFPAY ==
[2023-07-13 13:11] LABS: Anion Gap 4 (5-15); BUN 21 mg/dL (7-18); BUN/Creat Ratio 9.6 RATIO (10-20); Calcium,Total 9.4 mg/dL (8.5-10.1); Chloride 111 mmol/L (98-107); Creatinine, Serum 2.18 mg/dL (0.55-1.02); EST Glomerular Filtration Rate 24 mL/min (>60); Est Glom Filt Rate - Afr Amer 29 mL/min (>60); Glucose 93 mg/dL (74-106); Potassium 4.7 mmol/L (3.5-5.1); Sodium Level 137 mmol/L (136-145)
[2023-07-13 13:37] LABS: Hematocrit 36.1 % (37-47); Hemoglobin 12.2 g/dL (12.0-15.0); Mean Corp Hgb Conc 33.8 g/dL (32-36); Mean Corpuscular Volume 91.9 fL (81-99); Mean Platelet Vol. 12.1 fl (6.2-12.0); POSITIVE COUNT YES; Platelet Count 83 K/mm3 (150-450); RBC Distribution Width CV 14.5 % (11.6-14.6); Red Blood Count 3.93 M/mm3 (4.2-5.4); White Blood Count 5.2 K/mm3 (4.4-11.0)
[2023-07-13 13:57] LABS: BNP,B-Type NATRIURETIC PEPTIDE 220.8 pg/mL (0-100)
== END | disposition home or self-care (01) ==
PROVIDERS: PCP Internal Medicine; Visit Provider Nurse Practitioner
DX: R06.02 Shortness of breath (principal); R60.1 Generalized edema
CPT/HCPCS: 36415; 80048; 83880; 85027

== ENCOUNTER 2023-07-21 11:33 | Outpatient (CLI) | payer MEDICARE, MEDICAID, SELFPAY ==
[2023-07-21 12:49] LABS: Hematocrit 34.3 % (37-47); Hemoglobin 11.4 g/dL (12.0-15.0); Mean Corp Hgb Conc 33.2 g/dL (32-36); Mean Corpuscular Volume 93.2 fL (81-99); Mean Platelet Vol. 12.5 fl (6.2-12.0); POSITIVE COUNT YES; Platelet Count 65 K/mm3 (150-450); RBC Distribution Width CV 14.3 % (11.6-14.6); RBC Distribution Width SD 48.7 fl (35.1-43.9); Red Blood Count 3.68 M/mm3 (4.2-5.4)
[2023-07-21 13:52] LABS: Albumin, Serum 3.1 g/dL (3.2-5.0); BUN 17 mg/dL (7-18); BUN/Creat Ratio 11.4 RATIO (10-20); Chloride 103 mmol/L (98-107); Creatinine, Serum 1.49 mg/dL (0.55-1.02); EST Glomerular Filtration Rate 37 mL/min (>60); Est Glom Filt Rate - Afr Amer 45 mL/min (>60); Glucose 190 mg/dL (74-106); Phosphorus 2.8 mg/dL (2.5-4.9); Sodium Level 136 mmol/L (136-145)
[2023-07-21 14:00] LABS: Protein, Urine (Random) 12.7 mg/dL (<11.9); Protein:Creat Ratio 103 mg/g CRE (0-200)
[2023-07-21 14:37] LABS: Vitamin D,25 Hydroxy 16.4 ng/mL
== END 2023-07-21 23:59 | disposition home or self-care (01) ==
LOC: LAB 11:35
PROVIDERS: PCP Family Medicine; Referring Provider Nurse Practitioner Adult Health; Visit Provider Nurse Practitioner Adult Health
DX: N17.9 Acute kidney failure, unspecified (principal)
CPT/HCPCS: 36415; 80069; 82306; 82570; 83970; 84156; 85027

== ENCOUNTER → 2023-08-12 | Outpatient (CLI) | payer MEDICARE, MEDICAID, SELFPAY ==
[2023-08-12 17:27] LABS: Anion Gap 6 (5-15); BUN 14 mg/dL (7-18); BUN/Creat Ratio 13.6 RATIO (10-20); Calcium,Total 9.1 mg/dL (8.5-10.1); Chloride 104 mmol/L (98-107); Creatinine, Serum 1.03 mg/dL (0.55-1.02); EST Glomerular Filtration Rate 57 mL/min (>60); Est Glom Filt Rate - Afr Amer 69 mL/min (>60); Glucose 211 mg/dL (74-106); Potassium 4.2 mmol/L (3.5-5.1); Sodium Level 137 mmol/L (136-145)
== END | disposition home or self-care (01) ==
LOC: BFHLAB 13:50
PROVIDERS: PCP Family Medicine; Referring Provider Family Medicine; Visit Provider Family Medicine
DX: E11.9 Type 2 diabetes mellitus without complications (principal); I10 Essential (primary) hypertension
CPT/HCPCS: 36415; 80048

== ENCOUNTER 2023-08-27 01:20 | Emergency (ER) | payer MEDICARE, MEDICAID, SELFPAY ==
[2023-08-27 01:21] VITALS: BP 174/74; PULSE 83; RESP 18; TEMP 35.9; O2SAT 96; BMI 36.5
[2023-08-27 01:29] VITALS: O2SAT 96
--- NOTE | 2023-08-27 01:55 | RAD_ITS ---
INDICATION: cough EXAMINATION/TECHNIQUE: X-RAY - XR Chest 2 Views COMPARISON: 07/06/2023. FINDINGS: LINES/DEVICES: None. LUNGS: No consolidation or evidence of an effusion. No evidence of edema or a pneumothorax. MEDIASTINUM AND CARDIOVASCULAR STRUCTURES: Cardiac silhouette is normal in size and contour. Mediastinum is unremarkable. BONES AND SOFT TISSUES: No acute abnormality. RAD/Chest PA and Lateral IMPRESSION: No evidence of acute cardiopulmonary disease. Electronically Signed: Bruce Burgess DO at 2:57 EDT ,
[2023-08-27 02:09] VITALS: PULSE 83; RESP 18
[2023-08-27] MEDS: Ipratropium/Albuterol Sulfate 3 ML AMPUL.NEB INHALATION (02:09)
[2023-08-27] MEDS: Albuterol 2.5 MG/3 ML VIAL.NEB. INHALATION (02:09)
[2023-08-27] MEDS: Benzonatate 100 MG Capsule PO (02:14)
[2023-08-27] MEDS: dexAMETHasone 10 MG/ML Vial PO.IVFORM (02:14)
--- NOTE | 2023-08-27 02:28 | CPS ---
x1 Albuterol given to pt. in ER as well
--- NOTE | 2023-08-27 03:05 | EDS_ITS ---
HPI History of Present Illness Chief Complaint: Cough Informant: patient and spouse/S.O. Narrative Narrative: Patient is a 67-year-old female with past medical history of hypertension [place]born and ekh-xgelfbc-prastdeye diabetes. She states multiple family numbers have been sick and over the last 5 to 7 days she has had congestion and cough and shortness of breath. She denies any history of lung disorders such as asthma COPD or emphysema but has concern she may have developed an infection because of her persistent cough and therefore comes in for evaluation. [facility] Medical History Adverse drug reaction Hyperbilirubinemia Nausea vomiting and diarrhea Acute renal failure Acute kidney injury Thrombocytopenia Facial droop History of hypertension HTN (hypertension) Diabetes Home Medications ?Medication ?Instructions ?Recorded ?Last Taken ?Type alendronate 70 mg tablet 70 mg PO QWEEK 07/06/23 Unknown History atorvastatin 20 mg tablet 20 mg PO DAILY 07/06/23 Unknown History amlodipine 5 mg tablet (Norvasc) 5 mg PO DAILY #30 tabs 07/09/23 Unknown Rx rifaximin 550 mg tablet (Xifaxan) 550 mg PO BID #60 tabs 07/09/23 Unknown Rx lactulose 10 gram/15 mL oral 10 g (15 mL) PO DAILY #473 mL 07/22/23 Unknown Rx solution metoclopramide HCl 5 mg tablet 5 mg PO TID #90 tabs 07/22/23 Unknown Rx (Reglan) neomycin 500 mg tablet 500 mg PO BID #60 tabs 07/22/23 Unknown Rx pantoprazole 40 mg tablet,delayed 40 mg PO DAILY #30 tabs 07/22/23 Unknown Rx release (Protonix) albuterol sulfate 90 mcg/actuation 1 - 2 puff inhalation Q4H PRN PRN 08/27/23 Unknown Rx aerosol inhaler (Ventolin HFA) Wheezing/SOB #1 device azithromycin 250 mg tablet See Rx Instructions PO .COMPLEX #6 08/27/23 Unknown Rx tabs benzonatate 100 mg capsule 100 mg PO TID PRN cough #30 caps 08/27/23 Unknown Rx prednisone 20 mg tablet 20 mg PO DAILY 5 days #5 tabs 08/27/23 Unknown Rx Allergy/AdvReac Type Severity Reaction Status Date / Time No Known Allergies Allergy Verified 08/27/23 01:21 Family History Other CVA (cerebral vascular accident) Hypertension Social History Smoking Status: Never smoker ROS ROS ED Constitutional Constitutional ED: Denies chills or fever(s) Eyes Eyes: Denies change in vision ENT ENT ED: Reports rhinorrhea and sore throat Cardiovascular Cardiovascular: Denies chest pain Respiratory/Chest Respiratory/Chest: Reports cough, dyspnea and sputum Gastrointestinal Gastrointestinal: Denies abdominal pain, diarrhea, nausea or vomiting Genitourinary Genitourinary ED: Denies dysuria Musculoskeletal Musculoskeletal: Denies myalgias Integumentary Denies rash Neurologic Neurologic: Denies headache(s) Hematologic/Lymphatic Hematologic/Lymphatic: Denies easy bleeding or easy bruising EXAM Physical Exam Const Vital Signs: 08/27/23 01:21 08/27/23 01:29 08/27/23 02:09 Temperature 96.6 F L Temperature Source Temporal Pulse Rate 83 83 Respiratory Rate 18 18 Respiratory Effort Short of Breath Respiratory Depth Shallow Respiratory Pattern Normal Normal Blood Pressure 174/74 H Blood Pressure Mean 107 Pulse Ox 96 Oxygen Delivery Method Room Air 08/27/23 03:13 Temperature 97.5 F L Temperature Source Pulse Rate 100 Respiratory Rate 18 Respiratory Effort Respiratory Depth Respiratory Pattern Blood Pressure 157/81 H Blood Pressure Mean 106 Pulse Ox 100 Oxygen Delivery Method Positive well nourished, well developed and obese General Appearance ED: well developed; Negative for pallor Nutritional Appearance: obese HEENT Reports moist mucous membranes HEENT Narrative: Nasal mucosa is hyperemic and boggy with enlarged inferior nasal turbinates Cobblestoning is noted in the posterior pharynx consistent with sinus drainage without airway edema or compromise or secondary findings to suggest infection Eyes PERRL and EOMs intact bilaterally General Eye ED: Negative for pale conjunctiva or scleral icterus Neck supple and no JVD Chest Wall palpation of chest normal Resp normal respiratory effort Resp Narrative: Breath sounds are diminished throughout with diffuse expiratory wheeze and rhonchi however no nasal flaring retractions tachypnea or accessory muscle use Cardio regular rate and regular rhythm Extremity normal to inspection Extremity Narrative: No asymmetric edema no pitting edema negative Homans' sign bilaterally Neuro oriented x3, CN's II-XII intact bilaterally and no sensory deficits noted Sensorium / Orientation: alert Motor Exam: strength 5/5 throughout Psych mental status grossly normal Skin no rashes or lesions noted and no wounds General Skin Exam: Negative for jaundice or pallor MDM MDM MDM Narrative Medical decision making narrative: Patient arrived to the ER hypertensive but has a past medical history of this and otherwise vitals are stable. She reports multiple sick contacts at home and has cough and congestion. Differential diagnosis is for COVID versus influenza versus RSV versus pneumonia versus pneumothorax. Epidemiology displays that COVID and influenza are greatly decreased at this time and therefore do not feel there is need for a viral swab. Chest x-ray was obtained to assess for potential pneumonia or pneumothorax which was negative. Patient was given albuterol and DuoNeb as well as prednisone and Tessalon and on reevaluation had improvement of her breath sounds and reduction of cough. At this time she is not in respiratory distress she is not requiring supplemental oxygen and has had improvement with treatment and therefore there is no need for further workup in the ER and she is otherwise safe for discharge History & Record Review Discussion w/independent historian: Patient and Significant other Radiography Diagnostic Testing: Clinical Impression(s) from Imaging Studies Chest X-Ray 08/27/23 01:55 IMPRESSION: No evidence of acute cardiopulmonary disease. Electronically Signed: Bruce Burgess DO at 2:57 EDT , 2 view chest x-ray as interpreted by the emergency medicine physician reveals no acute infiltrate pneumothorax pleural effusion or widening the mediastinum Discharge Plan Triage Chief Complaint: Cough ED Provider: Mayo Mccullough Dx/Rx/DC Orders Clinical Impression: Bronchitis, Fatty liver disease, nonalcoholic, Thrombocytopenia, Non-insulin dependent diabetes mellitus, Hypertension Instructions: ED Bronchitis with Wheezing (Adult) Prescriptions: New azithromycin 250 mg tablet See Rx Instructions .ROUTE .COMPLEX Qty: 6 0RF Rx Instructions: For 250 mg dose pack: take 500 mg today (day 1), then 250 mg for 4 days (days 2-5) albuterol sulfate [Ventolin HFA] 90 mcg/actuation HFA aerosol inhaler 1 - 2 puff inhalation Q4H PRN PRN (Reason: Wheezing/SOB) Qty: 1 0RF prednisone 20 mg tablet 20 mg PO DAILY 5 Days Qty: 5 0RF benzonatate 100 mg capsule 100 mg PO TID PRN (Reason: cough) Qty: 30 0RF No Action alendronate 70 mg tablet 70 mg PO QWEEK atorvastatin 20 mg tablet 20 mg PO DAILY amlodipine [Norvasc] 5 mg tablet 5 mg PO DAILY Qty: 30 0RF Xifaxan 550 mg tablet 550 mg PO BID Qty: 60 0RF pantoprazole [Protonix] 40 mg tablet,delayed release (DR/EC) 40 mg PO DAILY Qty: 30 3RF lactulose 10 gram/15 mL solution 10 g PO DAILY Qty: 473 3RF neomycin 500 mg tablet 500 mg PO BID Qty: 60 3RF Rx Instructions: take by mouth twice a day metoclopramide HCl [Reglan] 5 mg tablet 5 mg PO TID Qty: 90 3RF Rx Instructions: one hour before meals Primary Care Provider: Angelita Call Referrals: Angelita Call MD [Primary Care Provider] - Print Language: Danish Disposition Disposition: Home, Self Care Discharge Date/Time: 08/27/23 03:14
[2023-08-27 03:13] VITALS: BP 157/81; PULSE 100; RESP 18; TEMP 36.4; O2SAT 100
== END 2023-08-27 03:14 | disposition home or self-care (01) ==
PROVIDERS: Emergency Provider Emergency Medicine; PCP Family Medicine; Visit Provider Emergency Medicine
DX: J40 Bronchitis, not specified as acute or chronic (principal); E11.9 Type 2 diabetes mellitus without complications; K76.0 Fatty (change of) liver, not elsewhere classified; D69.6 Thrombocytopenia, unspecified; I10 Essential (primary) hypertension; E66.9 Obesity, unspecified
CPT/HCPCS: 71046; 94640; 99283

== ENCOUNTER → 2023-10-01 | Outpatient (CLI) | payer MEDICARE, MEDICAID, SELFPAY ==
--- NOTE | 2023-10-01 14:10 | ECHOCS_ITS ---
Reason For Study: CARDIAC MURMUR Procedure This was a 2D Doppler, Color Flow transthoracic echocardiogram. Exam performed in department. Left Ventricle Normal size and thickness. The left ventricular ejection fraction is 75 %. Normal diastology for age. Right Ventricle Normal right ventricle. Atria The left and right atria are normal. Mitral Valve Moderate mitral annular calcification. Tricuspid Valve Trivial tricuspid valve insufficiency. Normal pulmonary artery pressure. Aortic Valve Mild diffuse aortic valve calcification. Mild aortic stenosis. Pulmonic Valve The pulmonic valve is not well visualized. Great Vessels Normal sized aortic root. Pericardium/Pleural No pericardial effusion. Medication 22 gauge I.V. with prn adaptor inserted into left arm. Diluted definity 1.5ml given slow IV push to enhance endocardial definition. MMode/2D Measurements & Calculations LVIDd: 3.5 cm IVSd: 1.0 cm LVOT diam: 1.4 cm LVIDs: 2.0 cm LVPWd: 1.1 cm FS: 43.1 % LVOT area: 1.5 cm2 Ao root diam: 3.2 cm LAV(MOD-bp): 47.7 ml LVAd ap4: 27.2 cm2 LAV(MOD-bp) Indexed: 26.7 ml/m2 LVLd ap4: 7.6 cm LAV(MOD-sp2): 33.8 ml EDV(MOD-sp4): 79.3 ml LAV(MOD-sp4): 62.6 ml EDV(sp4-el): 82.0 ml LVAs ap4: 15.6 cm2 LVLs ap4: 6.1 cm ESV(MOD-sp4): 32.9 ml ESV(sp4-el): 33.4 ml EF(MOD-sp4): 58.5 % EF(sp4-el): 59.3 % SV(MOD-sp4): 46.4 ml SV(sp4-el): 48.7 ml LA A4 area: 21.4 cm2 LA dimension(2D): 3.7 cm RA A4 area: 16.7 cm2 TAPSE: 2.9 cm Time Measurements MV dec time: 0.23 sec Doppler Measurements & Calculations MV E max jose: 124.7 cm/sec Lat Peak E' Jose: 10.1 cm/sec Med Peak E' Jose: 10.0 cm/sec MV A max jose: 107.1 cm/sec E/E' lat: 12.4 E/E' med: 12.5 MV E/A: 1.2 MV V2 max: 116.4 cm/sec MV dec slope: 547.1 cm/sec2 Ao V2 max: 232.4 cm/sec MV max P.4 mmHg Ao max P.6 mmHg MV V2 mean: 81.9 cm/sec Ao V2 mean: 166.9 cm/sec MV mean P.9 mmHg Ao mean P.3 mmHg MV V2 VTI: 34.2 cm Ao V2 VTI: 49.5 cm MVA(VTI): 1.9 cm2 AV (velocity ratio): 0.84 FANI(I,D): 1.3 cm2 FANI(V,D): 1.1 cm2 LV V1 max: 165.8 cm/sec SV(LVOT): 63.3 ml PA V2 max: 134.7 cm/sec LV V1 max P.0 mmHg PA V2 mean: 97.4 cm/sec LV V1 mean P.9 mmHg LV V1 mean: 90.1 cm/sec LV V1 VTI: 41.4 cm TR max jose: 278.0 cm/sec TR max P.9 mmHg ECHO/Echo Complete W/ Contrast Interpretation Summary The left ventricular ejection fraction is 75 %. Moderate mitral annular calcification. Mild diffuse aortic valve calcification. Mild aortic stenosis. Ordering Physician: Angelita Call Referring Physician: Angelita Call Performed By: Gege Mcdaniels RCS
== END | disposition home or self-care (01) ==
LOC: CVS 14:08
PROVIDERS: PCP Family Medicine; Referring Provider Family Medicine; Visit Provider Family Medicine
DX: R01.1 Cardiac murmur, unspecified (principal)
CPT/HCPCS: 93306; Q9957; A4216; C8929

== ENCOUNTER → 2023-11-25 | Outpatient (CLI) | payer MEDICARE, MEDICAID, SELFPAY ==
[2023-11-25 11:37] LABS: Absolute Lymphocyte Count 1.26 X10^3/uL (0.83-4.51); Absolute Neutrophil Count 1.7 X10^3/uL (2.0-7.7); Basophil# 0.04 X10^3/uL; Basophil% 1.1 % (0-1); Eosinophil# 0.19 X10^3/uL; Eosinophils% 5.2 % (0-5); Hemoglobin 12.9 g/dL (12.0-15.0); Lymphocyte # 1.26 X10^3/ul (0.83-4.51); Lymphocyte % 34.8 % (19-41); Mean Corp Hgb Conc 33.1 g/dL (32-36); Mean Corpuscular Hgb 30.1 pg (27.0-32.0); Mean Corpuscular Volume 91.1 fL (81-99); Mean Platelet Vol. 13.1 fl (6.2-12.0); Monocyte# 0.46 X10^3/uL; Monocyte% 12.7 % (0-10); NRBC Flagged by Analyzer 0 % (0-5); Neutrophil # 1.66 X10^3/uL (2.7-7.7); Neutrophil % 45.9 % (47-70); POSITIVE COUNT YES; POSITIVE MORPHOLOGY YES; Platelet Count 54 K/mm3 (150-450); RBC Distribution Width CV 14.5 % (11.6-14.6); RBC Distribution Width SD 48.2 fl (35.1-43.9); Red Blood Count 4.28 M/mm3 (4.2-5.4); White Blood Count 3.6 K/mm3 (4.4-11.0)
[2023-11-25 11:38] LABS: Differential Indicated SCAN CRITERIA MET
[2023-11-25 11:45] LABS: International Normalized Ratio 1.2; Prothrombin Time (Protime)PT. 15.1 SECONDS (11.7-14.9)
[2023-11-25 12:00] LABS: Atypical Lymphocyte 1+ %; Platelet Estimate MOD DEC (ADEQ)
[2023-11-25 12:44] LABS: ALB/GLOB Ratio 0.8 RATIO (0.9-2.4); AST(SGOT) 85 U/L (15-37); Alanine Aminotransfer ALT/SGPT 51 U/L (13-56); Albumin, Serum 3.2 g/dL (3.2-5.0); Alkaline Phosphatase 242 U/L (45-117); Anion Gap 6 (5-15); BUN 7 mg/dL (7-18); BUN/Creat Ratio 7.6 RATIO (10-20); Calcium,Total 8.7 mg/dL (8.5-10.1); Chloride 105 mmol/L (98-107); Cholesterol 196 mg/dL (200); Creatinine, Serum 0.92 mg/dL (0.55-1.02); EST Glomerular Filtration Rate 65 mL/min (>60); Est Glom Filt Rate - Afr Amer 78 mL/min (>60); Ferritin 155 ng/mL (8-252); Globulin 4.2 g/dL (2.2-4.2); Glucose 167 mg/dL (74-106); High Density Lipoprotein 74 mg/dL; Iron 143 ug/dL (50-170); Iron Binding Capacity,Total 357 ug/dL (250-450); Potassium 4.2 mmol/L (3.5-5.1); Protein, Total 7.4 g/dL (6.4-8.2); Sodium Level 138 mmol/L (136-145); Triglycerides 100 mg/dL; Very Low Density Lipoprotein 20 mg/dL (5-40)
[2023-11-26 15:09] LABS: AFP, Tumor Marker 5.5 ng/mL (0.0-9.2); Albumin 3.4 g/dL (2.9-4.4); Alpha-1-Globulins 0.3 g/dL (0.0-0.4); Alpha-2-Globulins 0.5 g/dL (0.4-1.0); Gamma Globulin 1.7 g/dL (0.4-1.8); Immunoglobulin A 546 mg/dL (87-352); Immunoglobulin G 1650 mg/dL (586-1602); Immunoglobulin M 211 mg/dL (26-217); PROEL- TOTAL PROTEIN 6.9 g/dL (6.0-8.5)
== END | disposition home or self-care (01) ==
PROVIDERS: Internal Medicine Gastroenterology; PCP Family Medicine; Referring Provider Family Medicine; Visit Provider Family Medicine
DX: E11.9 Type 2 diabetes mellitus without complications (principal); K74.60 Unspecified cirrhosis of liver; I10 Essential (primary) hypertension; K76.0 Fatty (change of) liver, not elsewhere classified; D64.9 Anemia, unspecified
CPT/HCPCS: 80053; 80061; 82105; 82728; 82784; 83540; 83550; 84165; 84443; 85025; 85610; 86334

== ENCOUNTER → 2023-12-09 | Outpatient (CLI) | payer MEDICARE, MEDICAID, SELFPAY ==
--- NOTE | 2023-12-09 08:25 | US_ITS ---
STUDY: ABDOMINAL ULTRASOUND - RIGHT UPPER QUADRANT REASON FOR VISIT: Female, 68 years old cirrhosis TECHNIQUE: Ultrasound evaluation of the right upper quadrant was performed with real-time and static valadez-scale imaging. TECHNICAL QUALITY: Adequate. COMPARISON: Comparison is made with prior CT scan of abdomen and pelvis dated July 06, 2023. FINDINGS: Liver: The liver measures 11.6 cm. There is normal echogenicity of the liver. Findings suggestive of cirrhosis. The bile ducts are within normal limits. There is hepatic color flow. The direction of portal flow is hepatopetal. There is no demonstrated mass lesion. Gallbladder: Normal distended gallbladder. The gallbladder wall is thickened and measures 8.3 mm. There is a negative sonographic Santos''s sign. There is no pericholecystic fluid. There are no gallstones. Common Bile Duct (C.B.D.): The common bile duct measures 3.5 mm. Pancreas: Normal size of the head, body and tail of the pancreas. There is increased echogenicity of the pancreas. There is no demonstrated pancreatic mass or cyst. Right Kidney: Normal size of the right kidney. The right kidney measures 12 cm x 6.2 cm x 6.4 cm. Normal renal cortex. The right cortex measures 1.6 cm. There is no demonstrated renal mass or cyst. There is no right hydronephrosis. Small amount of ascites. US/Abdomen Limited IMPRESSION: Findings in keeping with cirrhosis of the liver. Thickened gallbladder wall. Small volume ascites. Electronically Signed: Domingo Dc MD at 13:00 EDT ,
== END | disposition home or self-care (01) ==
LOC: US 08:21
PROVIDERS: PCP Family Medicine; Referring Provider Internal Medicine Gastroenterology; Visit Provider Internal Medicine Gastroenterology
DX: K74.60 Unspecified cirrhosis of liver (principal)
CPT/HCPCS: 76705

== ENCOUNTER → 2023-12-16 | Outpatient (CLI) | payer MEDICARE, MEDICAID, SELFPAY ==
--- NOTE | 2023-12-16 13:16 | RAD_ITS ---
STUDY: X-RAY - LUMBAR SPINE REASON FOR EXAM: Female, 68 years old. LEFT BUTTOCK PAIN TECHNIQUE: 5 view(s) of the lumbar spine were obtained. COMPARISON: None FINDINGS: Normal lumbar lordosis. There is no substantial scoliosis. There is a normal alignment of the vertebrae. Normal vertebral bodies and endplates. Normal disc space heights. There is multilevel facet hypertrophy in the lower lumbar spine. The soft tissue structures are unremarkable. RAD/L/S Spine Min 4 Views IMPRESSION: Degenerative changes of the spine, as detailed above. MRI may be useful. Electronically Signed: Colby Hayward MD at 12:05 EDT ,
--- NOTE | 2023-12-16 13:20 | RAD_ITS ---
EXAM: XR LEFT HIP WITH PELVIS WHEN PERFORMED, 2 OR 3 VIEWS CLINICAL INDICATION: LEFT BUTTOCK PAIN TECHNIQUE: Two or three views of the left hip with pelvis when performed. COMPARISON: No relevant prior studies available. FINDINGS: BONES/JOINTS: Unremarkable. No displaced fracture. No destructive or sclerotic lesions. Note that overlapping bowel shadows may however obscure fine detail. Sacroiliac joint is unremarkable. No widening of the pubic symphysis. The articular structures are unremarkable. SOFT TISSUES: Unremarkable. No soft tissue swelling or gas. RAD/HIP, UNI W/ Pelvis 2-3 Views IMPRESSION: Normal AP pelvis and left hip radiographs. Electronically Signed: Ez Penaloza MD at 16:04 EDT ,
== END | disposition home or self-care (01) ==
PROVIDERS: PCP Family Medicine; Referring Provider Family Medicine; Visit Provider Family Medicine
DX: M54.32 Sciatica, left side (principal)
CPT/HCPCS: 72110; 73502

== ENCOUNTER → 2023-12-21 | Outpatient (CLI) | payer MEDICARE, MEDICAID, SELFPAY ==
[2023-12-23 18:08] LABS: IgG, Quant 1713 mg/dL (586-1602); Immunoglobulin G, Subclass 1 1058 mg/dL (248-810); Immunoglobulin G, Subclass 2 450 mg/dL (130-555); Immunoglobulin G, Subclass 3 41 mg/dL (15-102); Immunoglobulin G, Subclass 4 47 mg/dL (2-96)
== END | disposition home or self-care (01) ==
LOC: LAB 12:55
PROVIDERS: PCP Family Medicine; Referring Provider Internal Medicine Gastroenterology; Visit Provider Internal Medicine Gastroenterology
DX: K74.60 Unspecified cirrhosis of liver (principal); D69.6 Thrombocytopenia, unspecified
CPT/HCPCS: 36415; 82784; 82787

== ENCOUNTER → 2024-02-19 | Outpatient (CLI) | payer MEDICARE, MEDICAID, SELFPAY ==
--- NOTE | 2024-02-19 08:37 | MRI_ITS ---
EXAM: MR LUMBAR SPINE WITHOUT INTRAVENOUS CONTRAST CLINICAL INDICATION: BACK PAIN TECHNIQUE: Multiplanar and multisequence MR images of the lumbar spine without intravenous contrast. COMPARISON: Plain film from 12/16/2023 FINDINGS: VERTEBRAE: No fractures or other acute findings. No infiltrative or focal lesions. No marrow edema. SPINAL CORD: Unremarkable. Normal position and signal intensity of the conus medullaris. SOFT TISSUES: Unremarkable. DISCS/SPINAL CANAL/NEURAL FORAMINA: L1-L2: Disc desiccation. Normal spinal canal and lateral recesses. Normal neuroforamina. L2-L3: Disc desiccation. Normal spinal canal and lateral recesses. Normal neuroforamina. L3-L4: Disc desiccation and a mild left neural foraminal/lateral asymmetric disc bulge, causing mild left neural foraminal narrowing. There is also considered hypertrophy. Normal spinal canal and lateral recesses. L4-L5: Mild circumferential disc bulge as well as facet arthropathy and ligamentum flavum thickening causing mild central canal narrowing, mild right and moderate left neural foraminal narrowing. Impingement of the exiting left L4 nerve root. L5-S1: There is a left paracentral/neural foraminal disc bulge at this level, causing moderate left neural foraminal stenosis, with impingement of the exiting left L5 nerve root. Normal spinal canal and lateral recesses. MRI/Spine Lumbar (Routine) IMPRESSION: Multilevel degenerative changes of the lumbar spine, including moderate left neural foraminal narrowing at L4/5 and L5/S1 with disc bulges impinging the exiting left L4 and L5 nerve roots which could be a cause of radicular symptoms. Electronically Signed: Evelio Mauricio MD at 7:17 EST ,
== END | disposition home or self-care (01) ==
LOC: MRI 08:33
PROVIDERS: PCP Family Medicine; Referring Provider Family Medicine; Visit Provider Family Medicine
DX: M54.30 Sciatica, unspecified side (principal)
CPT/HCPCS: 72148

== ENCOUNTER → 2024-03-21 | Outpatient (CLI) | payer MEDICARE, MEDICAID, SELFPAY ==
[2024-03-21 08:28] LABS: Amphetamine Urine VISTA NEGATIVE (<1000 ng/mL); Barbiturate Urine VISTA NEGATIVE (< 200 ng/mL); Benzodiazepine Urine VISTA NEGATIVE (< 200 ng/mL); Cocaine Urine VISTA NEGATIVE (< 300 ng/mL); Ecstacy Urine VISTA NEGATIVE (< 500 ng/mL); Methadone Urine VISTA NEGATIVE (< 300 ng/mL); PCP Urine VISTA NEGATIVE (< 25 ng/mL); THC Urine VISTA NEGATIVE (< 50 ng/mL); Vista UDS pH Range 7
== END | disposition home or self-care (01) ==
LOC: LABSPEC 08:08
PROVIDERS: PCP Family Medicine; Visit Provider Anesthesiology Pain Medicine
DX: F11.20 Opioid dependence, uncomplicated (principal)
CPT/HCPCS: 80307

== ENCOUNTER → 2024-04-03 | Outpatient (CLI) | payer MEDICARE, MEDICAID, SELFPAY ==
[2024-04-03 15:18] LABS: Absolute Lymphocyte Count 1.25 X10^3/uL (0.83-4.51); Absolute Neutrophil Count 2.1 X10^3/uL (2.0-7.7); Basophil# 0.03 X10^3/uL; Basophil% 0.7 % (0-1); Eosinophil# 0.29 X10^3/uL; Eosinophils% 6.6 % (0-5); Hematocrit 37.6 % (37-47); Hemoglobin 12.3 g/dL (12.0-15.0); Lymphocyte # 1.25 X10^3/ul (0.83-4.51); Lymphocyte % 28.5 % (19-41); Mean Corp Hgb Conc 32.7 g/dL (32-36); Mean Corpuscular Hgb 30.5 pg (27.0-32.0); Mean Corpuscular Volume 93.3 fL (81-99); Mean Platelet Vol. 13.8 fl (6.2-12.0); Monocyte# 0.68 X10^3/uL; Monocyte% 15.5 % (0-10); NRBC Flagged by Analyzer 0 % (0-5); Neutrophil # 2.13 X10^3/uL (2.7-7.7); Neutrophil % 48.7 % (47-70); POSITIVE COUNT YES; Platelet Count 54 K/mm3 (150-450); RBC Distribution Width CV 15.5 % (11.6-14.6); RBC Distribution Width SD 53.5 fl (35.1-43.9); Red Blood Count 4.03 M/mm3 (4.2-5.4); White Blood Count 4.4 K/mm3 (4.4-11.0)
[2024-04-03 15:32] LABS: ALB/GLOB Ratio 0.7 RATIO (0.9-2.4); AST(SGOT) 76 U/L (15-37); Alanine Aminotransfer ALT/SGPT 46 U/L (13-56); Alkaline Phosphatase 279 U/L (45-117); Anion Gap 4 (5-15); BUN 11 mg/dL (7-18); BUN/Creat Ratio 13.7 RATIO (10-20); Calcium,Total 9.1 mg/dL (8.5-10.1); Chloride 106 mmol/L (98-107); EST Glomerular Filtration Rate 76 mL/min (>60); Est Glom Filt Rate - Afr Amer 92 mL/min (>60); Globulin 4.4 g/dL (2.2-4.2); Glucose 116 mg/dL (74-106); Potassium 4.1 mmol/L (3.5-5.1); Protein, Total 7.4 g/dL (6.4-8.2); Sodium Level 136 mmol/L (136-145)
[2024-04-03 15:37] LABS: Hemoglobin A1c 6.7 % (3.8-5.6)
[2024-04-03 15:40] LABS: Microalbumin:Creatinine Ratio 14.6 mg/g CRE (<30 mg/g CRE)
== END | disposition home or self-care (01) ==
LOC: BFHLAB 12:31
PROVIDERS: PCP Family Medicine; Visit Provider Family Medicine
DX: Z86.2 Personal history of diseases of the blood and blood-forming organs and certain disorders involving the immune mechanism (principal); E11.9 Type 2 diabetes mellitus without complications; K76.0 Fatty (change of) liver, not elsewhere classified; D69.6 Thrombocytopenia, unspecified
CPT/HCPCS: 36415; 80053; 82043; 82570; 83036; 85025

== ENCOUNTER → 2024-05-29 | Outpatient (CLI) | payer MEDICARE, MEDICAID, SELFPAY ==
[2024-05-29 15:41] LABS: Absolute Lymphocyte Count 1.09 X10^3/uL (0.83-4.51); Basophil# 0.03 X10^3/uL; Basophil% 0.6 % (0-1); Eosinophil# 0.19 X10^3/uL; Eosinophils% 3.9 % (0-5); Hematocrit 38.8 % (37-47); Hemoglobin 12.9 g/dL (12.0-15.0); Lymphocyte # 1.09 X10^3/ul (0.83-4.51); Lymphocyte % 22.2 % (19-41); Mean Corp Hgb Conc 33.2 g/dL (32-36); Mean Corpuscular Hgb 31.3 pg (27.0-32.0); Mean Corpuscular Volume 94.2 fL (81-99); Mean Platelet Vol. 12.8 fl (6.2-12.0); Monocyte# 0.58 X10^3/uL; Monocyte% 11.8 % (0-10); NRBC Flagged by Analyzer 0 % (0-5); Neutrophil % 61.3 % (47-70); POSITIVE COUNT YES; Platelet Count 64 K/mm3 (150-450); RBC Distribution Width CV 15.2 % (11.6-14.6); Red Blood Count 4.12 M/mm3 (4.2-5.4); White Blood Count 4.9 K/mm3 (4.4-11.0)
[2024-05-29 15:53] LABS: Partial Thromboplast Time 33.3 Seconds (24.1-36.2)
[2024-05-29 15:57] LABS: International Normalized Ratio 1.1; Prothrombin Time (Protime)PT. 14.9 SECONDS (11.7-14.9)
[2024-05-29 16:25] LABS: Erythrocyte Sedimentation Rate 14 mm/hr (0-30)
[2024-05-29 18:27] LABS: AST(SGOT) 90 U/L (<=31); Alanine Aminotransfer ALT/SGPT 43 U/L (<=34); Albumin, Serum 3.8 g/dL (3.4-4.8); Alkaline Phosphatase 233 U/L (35-104); Anion Gap 12 (5-15); BUN 10 mg/dL (4-19); CRP 7.71 mg/L (0.0-3.0); Carbon Dioxide 24.2 mmol/L (21.0-32.0); Chloride 102 mmol/L (98-108); Creatinine, Serum 0.77 mg/dL (0.70-1.20); EST Glomerular Filtration Rate 85 (>60); Globulin 3.6 g/dL (2.2-4.2); Glucose 108 mg/dL (70-99); Potassium 3.7 mmol/L (3.3-5.1); Protein, Total 7.4 g/dL (5.9-8.4); Sodium Level 138 mmol/L (133-145); Total Bilirubin 2.38 mg/dL (0.00-1.30)
[2024-05-31 08:09] LABS: AFP, Tumor Marker 8.4 ng/mL (0.0-9.2)
== END | disposition home or self-care (01) ==
PROVIDERS: PCP Family Medicine; Visit Provider Internal Medicine Gastroenterology
DX: D64.9 Anemia, unspecified (principal); K74.60 Unspecified cirrhosis of liver
CPT/HCPCS: 36415; 80053; 82105; 85025; 85610; 85652; 85730; 86140

== ENCOUNTER → 2024-06-07 | Outpatient (CLI) | payer MEDICARE, MEDICAID, SELFPAY ==
--- NOTE | 2024-06-07 09:22 | US_ITS ---
EXAM: Ultrasound abdomen limited CLINICAL HISTORY: Cirrhosis COMPARISON: 12/09/2023 TECHNIQUE: Ultrasound abdomen limited FINDINGS: Study is limited by bowel gas and body habitus. Pancreas is obscured by bowel gas. The liver measures 10.6 cm with a diffusely nodular appearance to the liver surface contour and coarse echogenicity consistent with cirrhosis. Flow within the portal vein appears hepatopetal as expected. No gallstones or pericholecystic free fluid. Report of a negative sonographic Santos's sign. The gallbladder wall currently measures 11 mm, previously 8 mm. This is nonspecific in the setting of liver disease. CBD is not visualized. The right kidney measures 10 x 6.4 x 4.6 cm with a cortical thickness of 1.3 cm. No hydronephrosis or perinephric edema seen. Small amount of free fluid is seen in the right upper quadrant, right lower quadrant and left lower quadrant. US/Abdomen Limited IMPRESSION: Study is limited by bowel gas and body habitus. Liver again appears cirrhotic as above. Small amount of free fluid/ascites is seen in the right upper quadrant, right l ower quadrant and left lower quadrant. The gallbladder wall is again thickened currently measures 11 mm, previously 8 mm. This is nonspecific in the setting of liver disease. CBD is not visualized. Pancreas is obscured by bowel gas. Reading Location: [id number]
== END | disposition home or self-care (01) ==
LOC: OPUS 09:21
PROVIDERS: PCP Family Medicine; Referring Provider Internal Medicine Gastroenterology; Visit Provider Internal Medicine Gastroenterology
DX: K74.60 Unspecified cirrhosis of liver (principal)
CPT/HCPCS: 76705

== ENCOUNTER → 2024-07-04 | Outpatient (CLI) | payer MEDICARE, MEDICAID, SELFPAY ==
[2024-07-04 11:48] LABS: Absolute Lymphocyte Count 1.11 X10^3/uL (0.83-4.51); Absolute Neutrophil Count 2.2 X10^3/uL (2.0-7.7); Basophil# 0.04 X10^3/uL; Eosinophil# 0.13 X10^3/uL; Eosinophils% 3.1 % (0-5); Hematocrit 34.8 % (37-47); Hemoglobin 11.7 g/dL (12.0-15.0); Lymphocyte # 1.11 X10^3/ul (0.83-4.51); Lymphocyte % 26.6 % (19-41); Mean Corp Hgb Conc 33.6 g/dL (32-36); Mean Corpuscular Hgb 31.5 pg (27.0-32.0); Mean Corpuscular Volume 93.8 fL (81-99); Mean Platelet Vol. 12.5 fl (6.2-12.0); Monocyte# 0.66 X10^3/uL; Monocyte% 15.8 % (0-10); NRBC Flagged by Analyzer 0 % (0-5); Neutrophil # 2.22 X10^3/uL (2.7-7.7); Neutrophil % 53.3 % (47-70); POSITIVE COUNT YES; Platelet Count 66 K/mm3 (150-450); RBC Distribution Width CV 14.7 % (11.6-14.6); RBC Distribution Width SD 51.2 fl (35.1-43.9); Red Blood Count 3.71 M/mm3 (4.2-5.4); White Blood Count 4.2 K/mm3 (4.4-11.0)
[2024-07-04 11:58] LABS: Differential Indicated SCAN CRITERIA MET
--- NOTE | 2024-07-04 12:25 | RAD_ITS ---
PROCEDURE: ABDOMEN SINGLE VIEW 07/04/2024 REASON FOR EXAM: CONSTIPATION, ABDOMINAL DISTENSION TECHNIQUE: Single view abdomen. Three views of the abdomen were obtained in order to include the entire abdomen on the study. COMPARISON: CT abdomen and pelvis dated 07/06/2023 and abdominal ultrasound study dated 06/08/2024. Acute abdominal series dated 07/06/2023 FINDINGS: Bowel gas: A moderate to large amount of stool and gas is present throughout a nondistended colon. No free air seen. Psoas muscles and renal outlines are partially obscured by overlying bowel gas and fecal material within the colon. No gross organomegaly is seen. Degenerative changes of the lumbar spine are noted. Very mild degenerative changes of the left hip are noted. Bony pelvis appears unremarkable without evidence of fracture or dislocation. SI joints, right hip joint and pubic symphysis are unremarkable. RAD/Abdomen Single View IMPRESSION: The patient appears to be mildly constipated otherwise unremarkable abdominal s tudy. If the patient's symptoms continue or worsen, follow-up imaging is recommended. Reading Location: [id number]
[2024-07-04 12:26] LABS: AST(SGOT) 80 U/L (<=31); Alanine Aminotransfer ALT/SGPT 34 U/L (<=34); Albumin, Serum 3.5 g/dL (3.4-4.8); Alkaline Phosphatase 211 U/L (35-104); Anion Gap 10 (5-15); BUN 12 mg/dL (4-19); BUN/Creat Ratio 16.4 RATIO (10-20); Carbon Dioxide 25.7 mmol/L (21.0-32.0); Chloride 104 mmol/L (98-108); Creatinine, Serum 0.72 mg/dL (0.70-1.20); EST Glomerular Filtration Rate 92 (>60); Globulin 3.5 g/dL (2.2-4.2); Glucose 105 mg/dL (70-99); Potassium 3.8 mmol/L (3.3-5.1); Protein, Total 6.9 g/dL (5.9-8.4); Sodium Level 139 mmol/L (133-145)
[2024-07-04 12:56] LABS: Differential Comment SCANNED; Platelet Estimate MKD DEC (ADEQ)
== END | disposition home or self-care (01) ==
LOC: LAB 10:38
PROVIDERS: PCP Family Medicine; Referring Provider Family Medicine; Visit Provider Family Medicine
DX: K76.0 Fatty (change of) liver, not elsewhere classified (principal); I85.10 Secondary esophageal varices without bleeding; K74.60 Unspecified cirrhosis of liver; E03.9 Hypothyroidism, unspecified
CPT/HCPCS: 36415; 74018; 80053; 84439; 84443; 85025

== ENCOUNTER → 2024-07-06 | Outpatient (CLI) | payer MEDICARE, MEDICAID, SELFPAY ==
--- NOTE | 2024-07-06 07:20 | US_ITS ---
PROCEDURE: ABDOMEN LIMITED 07/06/2024 REASON FOR EXAM: CIRRHOSIS, ABDOMINAL DISTENSION ADD SPLEEN PLEASE COMPARISON: Prior study dated June 07, 2024. FINDINGS: Liver: Coarsened hepatic echotexture with a nodular liver contour suggestive of cirrhosis. Gallbladder: No stones sludge wall thickening or tenderness. Common bile duct: Normal measuring it measures 2 mm.. Pancreas: Normal Other: Visualized portions of the right kidney are unremarkable. No right upper quadrant ascites. The spleen measures 12.9 cm 6.1 cm 4.6 cm. Small amount of right upper quadrant ascites. Trace amount of fluid in the left upper quadrant. US/Abdomen Limited IMPRESSION: Heterogeneous/fatty infiltration of the liver. Findings suggestive of cirrhosi s. Small amount of ascitic fluid is seen in the right upper quadrant and left uppe r quadrant. Reading Location: [place] [id number]
== END | disposition home or self-care (01) ==
LOC: US 07:18
PROVIDERS: PCP Family Medicine; Referring Provider Nurse Practitioner Acute Care; Visit Provider Nurse Practitioner Acute Care
DX: K74.60 Unspecified cirrhosis of liver (principal)
CPT/HCPCS: 76705

== ENCOUNTER → 2024-08-01 | Outpatient (CLI) | payer MEDICARE, MEDICAID, SELFPAY ==
--- NOTE | 2024-08-01 07:45 | NM_ITS ---
PROCEDURE: GASTRIC EMPTYING STUDY - 4 HR 08/01/2024 REASON FOR EXAM: EARLY SATIETY COMPARISON: None TECHNIQUE: The patient ingested a standard meal of oatmeal, 2 eggs bread and butter and water. There was no vomiting postprandially. Anterior and posterior planar images of the upper abdomen were obtained for 1 minute immediately following the meal at 1h, 2h and 4h if more than 10% of the activity persisted within the stomach. Regions of interest were drawn, and a geometric mean was used to calculate a [id number]. RADIOPHARMACEUTICAL: Technetium sulfur colloid DOSE 1.1mCi FINDINGS: Percent activity remaining in stomach: 1 hour 68 % (normal 37-90%) 2 hours: 39 % (normal 30-60%) 4 hours: 5 % (normal 0-10%) NM/Gastric Emptying Study - 4 HR IMPRESSION: Normal gastric emptying study. Reading Location: [place] [id number]
== END | disposition home or self-care (01) ==
LOC: NM 07:43
PROVIDERS: PCP Family Medicine; Referring Provider Nurse Practitioner Acute Care; Visit Provider Nurse Practitioner Acute Care
DX: R10.9 Unspecified abdominal pain (principal); R14.0 Abdominal distension (gaseous)
CPT/HCPCS: 78264; A9541

== ENCOUNTER → 2024-08-10 | Outpatient (CLI) | payer MEDICARE, MEDICAID, SELFPAY ==
[2024-08-10 10:42] LABS: Absolute Lymphocyte Count 0.98 X10^3/uL (0.83-4.51); Absolute Neutrophil Count 2.8 X10^3/uL (2.0-7.7); Basophil# 0.04 X10^3/uL; Basophil% 0.9 % (0-1); Eosinophils% 4.4 % (0-5); Hematocrit 38.8 % (37-47); Hemoglobin 13.1 g/dL (12.0-15.0); Lymphocyte # 0.98 X10^3/ul (0.83-4.51); Lymphocyte % 21.7 % (19-41); Mean Corp Hgb Conc 33.8 g/dL (32-36); Mean Corpuscular Hgb 31.3 pg (27.0-32.0); Mean Corpuscular Volume 92.8 fL (81-99); Mean Platelet Vol. 12.7 fl (6.2-12.0); Monocyte# 0.51 X10^3/uL; Monocyte% 11.3 % (0-10); NRBC Flagged by Analyzer 0 % (0-5); Neutrophil # 2.76 X10^3/uL (2.7-7.7); Neutrophil % 61.3 % (47-70); POSITIVE COUNT YES; Platelet Count 58 K/mm3 (150-450); RBC Distribution Width CV 14.9 % (11.6-14.6); RBC Distribution Width SD 50.9 fl (35.1-43.9); Red Blood Count 4.18 M/mm3 (4.2-5.4); White Blood Count 4.5 K/mm3 (4.4-11.0)
[2024-08-10 11:21] LABS: AST(SGOT) 95 U/L (<=31); Alanine Aminotransfer ALT/SGPT 50 U/L (<=34); Albumin, Serum 3.7 g/dL (3.4-4.8); Alkaline Phosphatase 244 U/L (35-104); Anion Gap 10 (5-15); BUN 15 mg/dL (4-19); BUN/Creat Ratio 17.3 RATIO (10-20); Bilirubin, Direct 1.03 mg/dL (0.00-0.30); Calcium,Total 9.2 mg/dL (7.6-11.0); Carbon Dioxide 22.6 mmol/L (21.0-32.0); Chloride 101 mmol/L (98-108); Creatinine, Serum 0.86 mg/dL (0.70-1.20); EST Glomerular Filtration Rate 75 (>60); Globulin 4.1 g/dL (2.2-4.2); Glucose 152 mg/dL (70-99); Protein, Total 7.8 g/dL (5.9-8.4); Sodium Level 134 mmol/L (133-145); Total Bilirubin 1.79 mg/dL (0.00-1.30)
[2024-08-10 11:27] LABS: Hepatitis B Surface Antibody Nonreactive
[2024-08-11 11:08] LABS: GGTP 208 IU/L (0-60); Hepatitis A AB, Total Positive (Negative)
== END | disposition home or self-care (01) ==
LOC: LAB 09:56
PROVIDERS: PCP Family Medicine; Referring Provider Nurse Practitioner Acute Care; Visit Provider Nurse Practitioner Acute Care
DX: R10.9 Unspecified abdominal pain (principal); D61.818 Other pancytopenia; K74.60 Unspecified cirrhosis of liver; R14.0 Abdominal distension (gaseous)
CPT/HCPCS: 36415; 80048; 80076; 82977; 85025; 86706; 86708

== ENCOUNTER 2024-10-18 06:40 | Day surgery (SDC) | payer MEDICARE, MEDICAID, SELFPAY ==
--- NOTE | 2024-10-16 20:21 | PAT.ANE_ITS ---
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 When Was Last Pacemaker Check QUESTION #4 FULL TEXT: You/Your Family Experience fever (hyperthermia) with Anesthesia Last Oral Intake Last Oral intake: Last Oral Intake NPO since Meds taken in AM with sips of water? 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 operator Female Yes 10/16/24 17:00 HX of Motion Sickness No 10/16/24 17:00 HX of N/V After Surgery No 10/16/24 17:00 Non-Smoker Yes 10/16/24 17:00 Duration of Surgery greater No 10/16/24 17:00 than 60 minutes Number of Risk Factors 2 10/16/24 17:00 PONV Score Moderate Risk 10/16/24 17:00 Height & Weight Height & Weight: Anesthesia: Height & Weight Height 5 ft 08/10/24 09:10 Respiratory Assessment Respiratory Assessment - feeder worker power unit operator: Respiratory Tract Infection Hx - feeder worker power unit operator Hx Respiratory Tract Infection No 10/16/24 17:00 STOP Sleep Apnea STOP Sleep Apnea - feeder worker power unit operator: STOP Sleep Apnea - feeder worker power unit operator Hx Hypertension Yes 10/16/24 17:00 Hx Sleep Apnea No 10/16/24 17:00 CPAP BIPAP Do you snore loudly (louder No 10/16/24 17:00 than talking or can be heard Do you often feel tired/ No 10/16/24 17:00 fatigued/ sleepy during daytime? Has anyone observed you stop No 10/16/24 17:00 breathing during sleep? STOP Results Negative 10/16/24 17:00 QUESTION #5 FULL TEXT : Do you snore loudly (louder than talking or can be heard through closed doors)? 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 Tobacco Use Non-smoker 06/03/22 12:18 Smoking Status Never smoker 10/16/24 17:00 Hx Tobacco Use No 10/16/24 17:00 Years Smoking Packs Smoked per Day Smoking Cessation Date was within the last 15 years Hx Smoking Cessation Date Hx Smoking Cessation No 10/16/24 17:00 Counseling Hematologic Medial History Hematologic Hx - feeder worker power unit operator: Hematologic Medical Hx - podiatric assistant Hx of Blood Transfusion No 10/16/24 17:00 Hx of Transfusion in last 3 No 10/16/24 17:00 Months Date of Last Transfusion (if within last 3 months) Ever experience any problems No 10/16/24 17:00 with transfusion(s)? Specify any problems Hx of Preganancy in last 3 No 10/16/24 17:00 Months Nurse Filling Out Transfusion MGRIFFITH 10/16/24 17:00 & Questions: Date: 10/16/24 10/16/24 17:00 Time: 17:02 10/16/24 17:00 Patient unable to answer at this time (ie. confused, unrespo /Reproduction History /Reproductive History - feeder worker power unit operator: /Reproductive Hx- feeder worker power unit operator Hx Now Gestational Age (in weeks): EDC: Hx Hx Para Hx Section [facility] Medical History (Updated 10/16/24 @ 17:10 by Leslie Welch) Thyroid disease Hepatitis Non-smoker History of edema History of echocardiogram Fracture of right distal radius Right wrist pain Adverse drug reaction Hyperbilirubinemia Nausea vomiting and diarrhea Acute renal failure Acute kidney injury Thrombocytopenia Facial droop History of hypertension HTN (hypertension) Diabetes Home Medications ?Medication ?Instructions ?Recorded ?Last Taken ?Type atorvastatin 20 mg tablet 20 mg PO QHS 07/06/23 Unknow n History metoclopramide HCl 5 mg tablet 5 mg PO TID #90 tabs Unknown Rx (Reglan) furosemide 40 mg tablet (Lasix) 40 mg PO QDAY 07/04/24 Unknown History levothyroxine 50 mcg capsule 50 mcg PO QDAY 07/04/24 U nknown History linagliptin 5 mg tablet (Tradjenta) 5 mg PO QDAY 07/0410/16/24 History pantoprazole 40 mg tablet,delayed 40 mg PO QDAY #90 ta bs 07/04/24 Unknown Rx release rifaximin 550 mg tablet (Xifaxan) 550 mg PO BID hepati c 07/04/24 Unknown Rx encephalopathy, cirrhosis #180 tabs spironolactone 100 mg tablet 100 mg PO QAM #90 tabs Unknown Rx (Aldactone) carvedilol 6.25 mg tablet 6.25 mg PO QHS 08/10/24 Unkn own History lactulose 10 gram/15 mL oral 10 g PO QHS 08/10/24 Unkn own History solution lactulose 10 gram/15 mL oral 20 g PO BID 08/10/24 Unkn own History solution peg 3350-electrolytes 236 240 ml PO Q10M #4,000 mL 04/08 Unknown Rx gram-22.74 gram-6.74 gram-5.86 gram solution (Golytely) Allergy/AdvReac Type Severity Reaction Status Date / Time No Known Allergies Allergy Verified 10/16/24 16:43 Family History Other CVA (cerebral vascular accident) Hypertension Surgical History (Updated 10/16/24 @ 17:00 by Leslie Welch) History of esophagogastroduodenoscopy (EGD) Social History (Updated 09/27/23 @ 09:25 by Sofi Johnson MA) household members: spouse, children and other details: 2 grandchildren Smoking Status: Never smoker alcohol intake: never Audit: Pertinent Findings Pertinent Findings EKG Perinent findings: 06/01/2022. Normal sinus rhythm [address] abnormality Echo (EF%) pertinent findings: 10/01/2023. Ejection fraction 75%. Mild diffuse aortic valve calcification. Mild aortic stenosis. Recommendation Anesthesia Recommendation Anesthesia recommendation: OPTIMIZED for anesthesia
[2024-10-18] VITALS (7 sets, daily range): BP systolic 100–139; BP diastolic 45–72; PULSE 72–81; RESP 12–18; TEMP 36.6–36.9; O2SAT 10–100; BMI 36.1
--- OUTSIDE RECORDS SUMMARY | 2024-10-18 06:44 | XMS RPT_ITS | CCD ---
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 Helper Name Role Phone SYLVESTER RUVALCABA Admitting Unavailable SYLVESTER RUVALCABA Attending Unavailable SYLVESTER RUVALCABA Consulting Unavailable NONE, NONE Consulting Unavailable TIFFANYCECILIA CHAPPELL Admitting Unavailable TIFFANY, CECILIA Del Angel Primary Care Unavailable TIFFANYCECILIA CHAPPELL Attending Unavailable NATTY KIMBALL Consulting Unavailable PROVIDER, UNKNOWN Consulting Unavailable PROVIDER, UNKNOWN Consulting Unavailable PROVIDER, UNKNOWN Consulting Unavailable NATTY KIMBALL Admitting Unavailable JIGAR, NATTY Primary Care Unavailable NATTY KIMBALL Consulting Unavailable NATTY KIMBALL Attending Unavailable PROVIDER, UNKNOWN Consulting Unavailable PROVIDER, UNKNOWN Consulting Unavailable PROVIDER, UNKNOWN Consulting Unavailable Elder Reddy MD Primary Care Provider [facility], [place]eti Unavailable Elder Reddy MD Primary Care Provider [facility], [place]eti Unavailable Elder Reddy MD Primary Care Provider [facility], [place] Unavailable Dr. Ismael Naqvi Emergency Provider Dr. Elder Reddy Primary Care Provider Dr. Matt Toussaint Admit Provider Dr. Matt Toussaint Attending Provider Dr. Matt Toussaint Other Provider Dr. Talia Lopez Attending Provider Dr. Talia Lopez Other Provider Dr. Flip Enriquez Attending Provider Dr. Henry Maddox Attending Provider Dr. Henry Maddox Other Provider ROCIO MENDOZA Attending Unavailable ROCIO MENDOZA Admitting Unavailable REDDY, ELDER Reed Primary Care Unavailable Gonzales Chandler, Guerrero Unavailable Elder Reddy MD Primary Care Provider Dr. Elder Reddy Primary Care Provider Dr. Mayo Mccullough Emergency Provider Gong, Dr. Singh Admit Provider Unavailberhane e Gong, Dr. Singh Other Provider Unavailabl e Dr. Myrna Delgado Other Provider Dr. Yecenia Quinonez Other Provider Christine, Dr. De Attending Provider Dr. Myrna Delgado Attending Provider Dr. Myrna Delgado Referring Provider Angelita Call MD Primary Care Provider ELDER REDDY Primary Care Unavailable SIMEON, ELDER Reed Attending Unavailable ANA BROWNING Attending Unavailable SIMEON, ELDER Reed Primary Care Unavailable REDDY, ELDER Reed Primary Care Unavailable ANA BROWNING Referring Unavailable SIMEON, ELDER Reed Primary Care Unavailable CECILIA POWERS Referring Unavailable SIMEON, ELDER Reed Primary Care Unavailable KATHERINE GOLDSTEIN Referring Unavailable KAHTERINE GOLDSTEIN Attending Unavailable REDDY, BRENDA Primary Care Unavailable BRITTANI SANTANA Attending Unavailable REDDY, BRENDA Primary Care Unavailable ANA BROWNING Referring Unavailable REDDY, ELDER Reed Primary Care Unavailable ANA BROWNING Attending Unavailable SIMEON, BRENDA Primary Care Unavailable ANA BROWNING Referring Unavailable ANGELITA CALL Primary Care Unavailable BRUCE YU Referring Unavailable ANGELITA CALL Primary Care Unavailable SIMEON, ELDER Reed Primary Care Unavailable SIMEON, BRENDA Referring Unavailable CECILAI POWERS Attending Unavailable REDDY, BRENDA Primary Care Unavailable CECILIA POWERS Referring Unavailable REDDY, BRENDA Primary Care Unavailable ANA BROWNING Referring Unavailable REDDY, BRENDA Primary Care Unavailable KATHERINE GOLDSTEIN Attending Unavailable REDDY, BRENDA Primary Care Unavailable CECILIA POWERS Referring Unavailable ARIE GAYTAN Attending Unavailable BRITTANI SANTANA Referring Unavailable REDDY, BRENDA Primary Care Unavailable ALIEANA DUMONT Attending Unavailable REDDY, BRENDA Primary Care Unavailable REDDY, BRENDA Primary Care Unavailable REDDY, BRENDA Primary Care Unavailable IGOR KIM Referring Unavailable ALIE, NAZ M Attending Unavailable REDDY, BRENDA Primary Care Unavailable REDDY, BRENDA Primary Care Unavailable REDDY, BRENDA Primary Care Unavailable KAVON LOPES Referring Unavailable REDDY, BRENDA Primary Care Unavailable REDDY, BRENDA Primary Care Unavailable PEPE MICHEL Referring Unavailable REDDY, BRENDA Primary Care Unavailable REDDY, BRENDA Referring Unavailable CECILIA POWERS Attending Unavailable Reddy MD, Brenda Primary Care Provider [facility], [place]eti Unavailable Dr. Angelita Call MD Primary Care Provider Dr. Angelita Call MD Attending Provider [phone] Dr. Angelita Call MD Referring Provider [phone] Dr. Rehana Vega MD Attending Provider Dr. Santino Marie DO Attending Provider Dr. Santino Marie DO Referring Provider Dr. Angelita Call MD Primary Care Provider Dr. Angelita Call MD Attending Provider [phone] Dr. Angelita Call MD Referring Provider [phone] Ander DEMPSEY-CJessica Attending Provider Ander SENIOR BIOINFORMATICS SCIENTIST-Jessica Woodard Referring Provider Dr. Angelita Call MD Primary Care Provider Dr. Angelita Call MD Attending Provider [phone] Miedel, Angelita Referring Unavailable Miedel, [place] Primary Care Unavailable Miedel, Angelita Attending Unavailable Miedel, Angelita Referring Unavailable Friend, Santino Attending Unavailable Mied, [place] Primary Care Unavailable Miedel, [place] Primary Care Unavailable Miedel, Angelita Referring Unavailable Teja Dick Attending Unavailable Miedel, Angelita Referring Unavailable Miedel, [place] Primary Care Unavailable Friend, Santino Attending Unavailable Mied, [place] Primary Care Unavailable Rehana Vega Attending Unavailable Mied, [place] Primary Care Unavailable Miedel, Angelita Attending Unavailable Miedel, [place] Primary Care Unavailable Friend, Santino Attending Unavailable Friend, Santino Referring Unavailable Miedel, Angelita Referring Unavailable Miedel, [place] Primary Care Unavailable Miedel, Angelita Attending Unavailable Miedel, [place] Primary Care Unavailable Rehana Vega Attending Unavailable Miedel, Angelita Referring Unavailable Miedel, [place] Primary Care Unavailable Jessica Worthington Attending Unavailable Miedel, [place] Primary Care Unavailable Miedel, Angelita Attending Unavailable Miedel, [place] Primary Care Unavailable Friend, Santino Attending Unavailable Mied, [place] Primary Care Unavailable Friend, Santino Attending Unavailable Elder Reddy Referring Unavailable Miedel, [place] Primary Care Unavailable Miedel, Angelita Referring Unavailable Jessica Worthington Attending Unavailable Miedel, [place] Primary Care Unavailable Jessica Worthington Attending Unavailable Jessica Worthington Referring Unavailable Miedel, [place] Primary Care Unavailable Jessica Worthington Attending Unavailable Jessica Worthington Referring Unavailable Miedel, [place] Primary Care Unavailable Miedel, Angelita Referring Unavailable Miedel, Angelita Attending Unavailable Friend, Santino Consulting Unavailable Friend, Santino Referring Unavailable Mied, [place] Primary Care Unavailable Friend, Santino Attending Unavailable [facility]iah [facility] Angelita Attending Unavailable Jessica Worthington Attending Unavailable Jessica Worthington Referring Unavailable [facility] Angelita Primary Care Unavailable Friend Santino Attending [facility] Referring Un[facility] Unavailable Friend, Santino Attending Unavailable [facility] [place] Primary Care Unavailable Friend, Santino Referring Unavailable Medications Current Medications Medication Drug Class(es) Dates Sig (Normalized) Sig (Original) atorvastatin 20 mg oral tablet (20 sources) HMG-CoA Reductase Inhibitor Start: 03-24-2023 take 1 tablet by mouth once daily Atorvastatin 20 mg tablet Active 20 mg PO DAILY July 06, 2023 12:00am Start: 06-01-2022 End: 07-06-2023 take 2 tablets by mouth once daily Atorvastatin 10 mg tablet Discontinued 20 mg PO DAILY June 01, 2022 12:00am July 06, 2023 3:14am Start: 06-01-2022 End: 07-06-2023 take 20 mg by mouth once daily Atorvastatin Discontinu ed 20 MG PO DAILY June 01, 2022 12:00am July 06, 2023 3:14am Start: 03-20-2022 End: 03-23-2023 take 1 tablet by mouth once daily at bedtime for hyperlipidemia atorvastatin (LIPITOR) 10 mg tablet Indications: Pure hypercholesterolemia Take 1 tablet by mouth daily at bedtime. For cholesterol. 90 tablet 3 03/20/2022 03/23/2023 Discontinued Start: 08-05-2021 End: 03-17-2022 take 1 tablet by mouth once daily at bedtime for hyperlipidemia atorvastatin (LIPITOR) 10 mg tablet Indications: Pure hypercholesterolemia Take 1 tablet by mouth daily at bedtime. For cholesterol. 30 tablet 5 08/05/2021 03/17/2022 Discontinued Comment on above: Take 1 tablet by tiffanie th daily at bedtime. For cholesterol. benoxinate hydrochloride 4 mg/ml / fluorescein sodium 2.5 mg/ml ophthalmic solution (1 source) Diagnostic Dye Start: 07-28-2021 End: 07-28-2021 fluorescein-benoxina te 0.25-0.4 % 1 Drop (FLURESS) betamethasone 0.5 mg/ml / clotrimazole 10 mg/ml topical cream (20 sources) Azole Antifungal, Corticosteroid Start: 03-20-2022 clotrimazole-betamet hasone (LOTRISONE) cream Apply to affected area twice daily as needed. 45 g 2 03/20/2022 Active Start: 04-28-2021 End: 03-17-2022 clotrimazole-betamethasone ( LOTRISONE) cream Apply to affected area twice daily as needed. 45 g 2 04/28/2021 03/17/2022 Discontinued Comment on above: Apply to affected ar ea twice daily as needed. carboxymethylcellulose sodium 10 mg/ml ophthalmic solution (7 sources) Start : 06-16 End: 07-16 carboxymethylcellulose sodium (ARTIFICIAL TEARS) 1 % drops Use 1-2 Drops in the right eye as needed (dry eyes). 15 mL 3 06/16/2022 07/16/2022 Active Comment on above: Use 1-2 Drops in the right eye as needed (dry eyes). carvedilol 6.25 mg oral tablet (15 sources) alpha-Adrener gic Rufina, beta-Adrenerg ic Rufina Start : 08-10 take 1 tablet by mouth at mealtime Carvedilol 6.25 mg tablet Active 6.25 mg PO AT BEDTIME August 10, 2024 12:00am must administer with a meal/food Start: 06-29-2023 End: 07-13-2023 take 1 tablet by mouth twice daily Carvedilol 6.25 mg tablet Discontinued 6.25 mg PO TWICE A DAY July 06, 2023 12:00am July 09, 2023 2:45pm Comment on above: Take 1 tablet by tiffanie th two times a day with meals. furosemide 40 mg oral tablet (5 sources) Loop Diuretic Start: 5 take 1 tablet by mouth once daily Furosemide (Lasix) 40 mg tablet Active 40 mg PO daily July 04, 2024 12:00am gabapentin 100 mg oral capsule (5 sources) Anti-epileptic Agent Start: 5 take 1 capsule by mouth three times daily as needed Gabapentin 100 mg capsule Active 100 mg PO THREE TIMES A DAY as needed July 04, 2024 12:00am Inhalational Spacing Device (1 source) Start: 4 End: Inhalational Spacing Device Indications: Viral bronchitis 1 Device one time only for 1 dose. 1 Each 0 05/03/2023 05/03/2023 Active Comment on above: 1 Device one time on ly for 1 dose. lactulose 667 mg/ml oral solution (18 sources) Osmotic Laxative Start: take 20 g by mouth twice daily Lactulose 10 gram/15 mL solution Active 20 g PO TWICE A DAY August 10, 2024 12:00am Start: 11-25-2023 End: 08-10-2024 take 10 g by mouth at bedtime Lactulose 10 gram/15 mL solution Active 10 g PO AT BEDTIME August 10, 2024 9:08am Start: 07-22-2023 End: 11-25-2023 take 10 g by mouth once daily Lactulose 10 gram/15 mL solution Discontinued 10 g PO DAILY 473 July 22, 2023 12:00am November 25, 2023 11:04am levothyroxine sodium 0.05 mg oral capsule (5 sources) l-Thyroxine Start: 07-04-2024 take 1 capsule by mouth once daily Levothyroxine 50 mcg capsule Active 50 ug PO daily July 04, 2024 12:00am linagliptin 5 mg oral tablet (5 sources) Dipeptidyl Peptidase 4 Inhibitor Start: 07-04-2024 take 1 tablet by mouth once daily Linagliptin (Tradjenta) 5 mg tablet Active 5 mg PO daily July 04, 2024 12:00am polyethylene glycol 3350 377377 mg / potassium chloride 2970 mg / sodium bicarbonate 6740 mg / sodium chloride 5860 mg / sodium sulfate 54620 mg powder for oral solution (1 source) Osmotic Laxative Start: 08-13-2024 Peg 3350-Electrolytes (Golytely) 236-22.74-6.74 -5.86 gram recon soln Active 240 mL PO Q10M 4000 August 13, 2024 12:00am as directed for split dose bowel prep spironolactone 100 mg oral tablet (5 sources) Aldosterone Antagonist Start: 07-04-2024 take 1 tablet by mouth once daily in the morning Spironolactone (Aldactone) 100 mg tablet Active 100 mg PO EVERY MORNING 90 July 04, 2024 12:00am take one tablet daily in the morning Completed/Discontinued Medications Medication Drug Class(es) Dates Sig (Normalized) Sig (Original) [id number] 200 actuat albuterol 0.09 mg/actuat metered dose inhaler (20 sources) beta2-Adrenergic Agonist Start: 08-27-2023 End: 07-04-2024 Albuterol Sulfate (Ventolin Hfa) 90 mcg/actuation HFA aerosol inhaler Discontinued 1 - 2 NMA INHALATION EVERY 4 HOURS NEEDED as needed for Wheezing/SOB August 27, 2023 12:00am July 04, 2024 11:58am Start: 05-03-2023 albuterol (PRO VENTIL) 2.5 mg /3 mL (0.083 %) nebulizer solution Indications: Viral bronchitis Use 3 mL via nebulizer every 4 hours as needed for wheezing/shortness of breath. Use over 5-15minutes. 3 mL 05/03/2023 Active Start: 05-03-2023 take 2 puff(s) by in halation every four hours as needed for wheezing albuterol HFA (PROVENTIL HFA, VENTOLIN HFA) 90 mcg/actuation inhaler Indications: Viral bronchitis Inhale 2 Puffs as instructed every 4 hours as needed for wheezing/shortness of breath. 1 Each 05/03/2023 Active Comment on above: Inhale 2 Puffs as in structed every 4 hours as needed for wheezing/shortness of breath. Use 3 mL via nebuliz er every 4 hours as needed for wheezing/shortness of breath. Use over 5-15minutes. alendronic acid 70 mg oral tablet (20 sources) Bisphosphonate Start: 023 End: take 1 tablet by mouth every week Alendronate 70 mg tablet Discontinued 70 mg PO EVERY WEEK July 06, 2023 12:00am July 04, 2024 11:58am Comment on above: Take 1 tablet by tiffanie th one time a week. Take with a full glass of water, on an empty stomach; do NOT lie down for 30minutes. amLODIPine 5 mg oral tablet (15 sources) Dihydropyridine Calcium Channel Rufina Start: 024 End: 025 take 1 tablet by mouth once daily Amlodipine (Norvasc) 5 mg tablet Discontinued 5 mg PO DAILY July 09, 2023 12:00am August 10, 2024 9:46am azithromycin 250 mg oral tablet (7 sources) Macrolide Antimicrobial Start: End: Azithromycin 250 mg tablet Discontinued 0 PO .COMPLEX August 27, 2023 12:00am September 27, 2023 9:24am For 250 mg dose pack: take 500 mg today (day 1), then 250 mg for 4 days (days 2-5) benzonatate 100 mg oral capsule (8 sources) Non-narcotic Antitussive Start: End: take 1 capsule by mouth three times daily as needed for cough Benzonatate 100 mg capsule Discontinued 100 mg PO THREE TIMES A DAY as needed for cough August 27, 2023 12:00am September 27, 2023 9:24am Start: 05-03-2023 End: 05-13-2023 take 2 capsules by mouth three times daily as needed benzonatate (TESSALON PERLE) 100 mg capsule Indications: Viral bronchitis Take 2 capsules by mouth three times a day as needed for up to 10 days. 60 capsule 0 05/03/2023 05/13/2023 Active Comment on above: Take 2 capsules by m outh three times a day as needed for up to 10 days. dextran 70 1 mg/ml / hypromellose 3 mg/ml ophthalmic solution (11 sources) Plasma Volume Gastroenterology Physician Start: 06-03-2022 End: 07-06-2023 Dextran 70-Hypromellose (Pf) (Natural Tears (Pf)) 0.1-0.3 % dropperette Discontinued 1 NMA RIGHT EYE EVERY 4 HOURS NEEDED as needed for dry eye(s) June 03, 2022 3:16pm July 06, 2023 3:14am Start: 06-03-2022 End: 07-06-2023 Dextran 70-Hypromellose (Pf) (Natural Tears (Pf)) 0.1-0.3 % dropperette Discontinued 1 DRP RIGHT EYE EVERY 4 HOURS NEEDED June 03, 2022 3:16pm July 06, 2023 3:14am Famotidine (6 sources) Histamine-2 Receptor Antagonist End: 07-13-2022 famotidine (PEPCID ORAL) Take 1 tablet by mouth as needed. 0 07/13/2022 Discontinued famotidine (PEPC ID ORAL) Take 1 tablet by mouth as needed. 0 Active Comment on above: Take 1 tablet by tiffanie th as needed. glipiZIDE er 2.5 mg 24 hr extended release oral tablet (20 sources) Sulfonylurea Start: End: take 1 tablet by mouth once daily Glipizide 2.5 mg tablet extended release 24hr Discontinued 2.5 mg PO DAILY June 01, 2022 12:00am July 09, 2023 2:45pm Start: 04-28-2021 End: 03-17-2022 take 1 tablet by mouth once daily glipiZIDE (GLUCOTROL XL) 2.5 mg 24 hr tablet Indications: Controlled type 2 diabetes mellitus without complication, without long-term current use of insulin (HCC) Take 1 tablet by mouth once daily. 90 tablet 1 07/23/2021 03/17/2022 Discontinued Comment on above: Take 1 tablet by tiffanie th once daily. 3 ml insulin lispro 100 unt/ml pen injector (12 sources) Insulin Analog Start: 06-03-2022 End: 07-06-2023 Insulin Lispro (Humalog Kwikpen Insulin) 100 unit/mL Insulin Pen Discontinued 0 U SC BEFORE MEALS AND AT BEDTIME June 03, 2022 12:00am July 06, 2023 3:10am Please contact the information source for Protocol details. Start: 06-03-2022 End: 07-06-2023 Insulin Lispro (Humalog Kwik pen Insulin) 100 unit/mL Insulin Pen Discontinued 0 UNIT SC BEFORE MEALS AND AT BEDTIME June 03, 2022 12:00am July 06, 2023 3:10am insulin lispro (HUMALOG KWIK PEN) 100 unit/mL (7 sources) Start: 06-03-2022 End: 07-13-2022 insulin lispro (HUMALOG KWIKPEN) 100 unit/mL Start: 06-03-2022 insulin lispro (HUMALOG KWIKPEN) 100 unit/mL Start: 06-03-2022 insulin lispro (HUMALOG KWIKPEN) 100 unit/mL Insulin Lispro (Humalog Kwikpen Insulin) 100 unit/mL Insulin Pen Active 0 UNIT SC BEFORE MEALS AND AT BEDTIME June 03, 2022 12:00am 0 06/03/2022 Active Comment on above: Insulin Lispro (Lisa log Kwikpen Insulin) 100 unit/mL Insulin Pen Active 0 UNIT SC BEFORE MEALS AND AT BEDTIME June 03, 2022 12:00am lisinopril 20 mg oral tablet (20 sources) Angiotensin Converting Enzyme Inhibitor Start: End: take 1 tablet by mouth once daily Lisinopril 20 mg tablet Discontinued 20 mg PO DAILY July 06, 2023 12:00am July 09, 2023 2:45pm Start: 06-01-2022 End: 07-06-2023 take 2 tablets by mouth once daily Lisinopril 10 mg tablet Discontinued 20 mg PO DAILY June 01, 2022 12:00am July 06, 2023 3:14am Start: 06-01-2022 End: 07-06-2023 take 20 mg by mouth once daily Lisinopril Discontinued 20 MG PO DAILY June 01, 2022 12:00am July 06, 2023 3:14am Start: 06-01-2022 take 10 mg by mouth once daily Lisinopril Active 10 MG PO DAILY June 01, 2022 12:00am Start: 04-28-2021 End: 11-03-2021 take 1 tablet by mouth once daily lisinopril (ZESTRIL, PRINIVIL) 10 mg tablet Indications: Primary hypertension Take 1 tablet by mouth once daily. 90 tablet 1 11/03/2021 Active Comment on above: Take 1 tablet by tiffanie once daily. 24 hr metFORMIN hydrochloride 500 mg extended release oral tablet (20 sources) Biguanide Start: 06-01-2022 End: 07-09-2023 Metformin 500 mg tablet extended release 24 hr Discontinued 1000 mg PO TWICE A DAY June 01, 2022 12:00am July 09, 2023 2:45pm Start: 02-17-2022 End: 02-18-2022 take 1 tablet by mouth twice daily at mealtime metFORMIN ER (FORTAMET) 1,000 mg 24 hr tablet Take 1 tablet by mouth twice daily with meals. 180 tablet 1 02/17/2022 02/18/2022 Discontinued (Cost of medication) Start: 07-23-2021 End: 07-13-2023 take 2 tablets by mouth twice daily at mealtime metFORMIN ER (GLUCOPHAGE XR) 500 mg 24 hr tablet Indications: Controlled type 2 diabetes mellitus without complication, without long-term current use of insulin (HCC) Take 2 tablets by mouth two times a day with meals. 360 tablet 3 03/23/2023 07/13/2023 Discontinued (Discontinued by another Health Care Provider) Start: 01-07-2021 End: 07-23-2021 take 1 tablet by mouth twice daily at mealtime metFORMIN (GLUCOPHAGE) 1,000 mg tablet Take 1,000 mg by mouth twice daily with meals. 0 01/07/2021 07/23/2021 Discontinued (Changing Therapy/Dosage Form) Start: 01-07-2021 take 1 tablet by tiffanie once daily metFORMIN (GLUCOPHAGE) 1,000 mg tablet Take 1,000 mg by mouth once daily. 0 01/07/2021 Active Comment on above: Take 1,000 mg by tiffanie once daily. Take 2 tablets by mo [facility] twice daily with meals. Take 1,000 mg by tiffanie twice daily with meals. Take 1 tablet by tiffanie twice daily with meals. Take 2 tablets by mo [facility] two times a day with meals. metoclopramide 5 mg oral tablet (20 sources) Dopamine-2 Receptor Antagonist Start: End: take 1 tablet by mouth three times daily 1 hour(s) before mealtime Metoclopramide Hcl (Reglan) 5 mg tablet Discontinued 5 mg PO THREE TIMES A DAY July 22, 2023 3:29pm November 25, 2023 11:04am one hour before meals neomycin sulfate 500 mg oral tablet (7 sources) Aminoglycoside Antibacterial Start: End: take 1 tablet by mouth twice daily Neomycin 500 mg tablet Discontinued 500 mg PO TWICE A DAY 60 July 22, 2023 12:00am July 04, 2024 11:58am take by mouth twice a day pantoprazole 40 mg delayed release oral tablet (20 sources) Proton Pump Inhibitor Start: End: take 1 tablet by mouth once daily Pantoprazole (Protonix) 40 mg tablet,delayed release (DR/EC) Discontinued 40 mg PO DAILY November 25, 2023 11:04am July 04, 2024 11:02am Start: 07-09-2023 End: 07-22-2023 take 1 tablet by mouth twice daily Pantoprazole (Protonix) 40 mg tablet,delayed release (DR/EC) Discontinued 40 mg PO TWICE A DAY July 09, 2023 12:00am July 22, 2023 3:33pm Start: 06-03-2022 End: 07-06-2023 take 1 tablet by mouth once daily Pantoprazole (Protonix) 40 mg tablet,delayed release (DR/EC) Discontinued 40 mg PO DAILY June 03, 2022 12:00am July 06, 2023 3:10am Comment on above: Take by mouth. Take 40 mg by mouth once daily as needed. Take 1 tablet by tiffanie th once daily as needed. Peg 3350-Sod Sulf,Iuks-Jrp-Beo (Suflave) 178.7-7.3-0.5 gram recon soln (2 sources) Start: 08-10-2024 End: 08-13-2024 Peg 3350-Sod Sulf,Vlai-Ycx-Vak (Suflave) 178.7-7.3-0.5 gram recon soln Discontinued 0 PO .COMPLEX 2 August 10, 2024 12:00am August 13, 2024 10:40am as directed for split dose bowel prep Start: 08-10-2024 Peg 3350-Sod S ulf,Kiwc-Fvs-Yfq (Suflave) 178.7-7.3-0.5 gram recon soln Active 0 PO .COMPLEX 2 August 10, 2024 12:00am as directed for split dose bowel prep phenylephrine hydrochloride 25 mg/ml ophthalmic solution (2 sources) alpha-1 Adrenergic Agonist Start: 06-23-2022 End: 06-23-2022 PHENYLephrine 2.5 % 1 Drop (AK-DILATE, EVENS-SYNEPHRINE) Start: 07-28-2021 End: 07-28-2021 PHENYLephrine 2.5 % 1 Drop ( AK-DILATE, EVENS-SYNEPHRINE) predniSONE 20 mg oral tablet (20 sources) Start: 08-27-2023 End: 09-27-2023 take 1 tablet by mouth once daily Prednisone 20 mg tablet Discontinued 20 mg PO DAILY 07 17August 264 12:00am September 27, 2023 9:24am Start: 05-03-2023 End: 05-12-2023 predniSONE (DELTASONE) 10 mg tablet Indications: Viral bronchitis Take 4 tabs daily for 3 days, then 2 tabs daily for 3 days, then 1 tab daily for 3 days with food. 21 tablet 0 05/03/2023 05/12/2023 Active Start: 06-03-2022 End: 06-23-2022 predniSONE (DELTASONE) 20 mg tablet Take by mouth. 0 06/03/2022 06/23/2022 Discontinued (Course of therapy completed) Start: 06-03-2022 End: 07-06-2023 take 3 tablets by mouth at breakfast Prednisone 20 mg Tablet Discontinued 60 mg PO WITH BREAKFAST 02 10June 03, 2022 12:00am July 06, 2023 3:10am Start: 06-03-2022 End: 07-06-2023 take 60 mg by mouth at breakfast Prednisone Discontinu ed 60 MG PO WITH BREAKFAST 02 10June 03, 2022 12:00am July 06, 2023 3:10am Comment on above: Take by mouth. Take 4 tabs daily fo r 3 days, then 2 tabs daily for 3 days, then 1 tab daily for 3 days with food. proparacaine hydrochloride 5 mg/ml ophthalmic solution (1 source) Local Anesthetic Start: 06-24-19 End: 06-24-19 proparacaine 0.5 % 1 Drop (ALCAINE) rifAXIMin 550 mg oral tablet (20 sources) Rifamycin Antibacterial Start: 07-09-19 End: 07-05-19 take 1 tablet by mouth twice daily Rifaximin (Xifaxan) 550 mg tablet Discontinued 550 mg PO TWICE A DAY 60 November 25, 2023 11:04am July 04, 2024 11:03am tropicamide 10 mg/ml ophthalmic solution (2 sources) Anticholinergic Start: 06-24-19 End: 06-24-19 tropicamide 1 % 1 Drop (MYDRIACYL) Start: 07-28-2021 End: 07-28-2021 tropicamide 1 % 1 Drop (MYDR IACYL) valACYclovir 1000 mg oral tablet (16 sources) Herpesvirus Nucleoside Analog DNA Polymerase Inhibitor, Herpes Simplex Virus Nucleoside Analog DNA Polymerase Inhibitor, Herpes Zoster Virus Nucleoside Analog DNA Polymerase Inhibitor Start: 06-03-2022 End: 06-23-2022 valACYclovir (VALTREX) 1 gram Take by mouth. 0 06/03/2022 06/23/2022 Discontinued (Course of therapy completed) Start: 06-03-2022 End: 07-06-2023 Valacyclovir 1 gram tablet Discontinued 1000 mg PO Q8H 02 10June 03, 2022 12:00am July 06, 2023 3:10am Start: 06-03-2022 End: 07-06-2023 take 1000 mg by mouth every eight hours Valacyclovir Discontinued 1000 MG PO Q8H 02 10June 03, 2022 12:00am July 06, 2023 3:10am Comment on above: Take by mouth. Problems Active Problems Problem Classification Problem Date Documented Da te Episodic/Chronic Abdominal pain (11 sources) Abdominal pain; Translations: [Unspecified abdominal pain] Onset: 08-15-2024 07-04-2024 Episodic Acute and unspecified renal failure (20 sources) Acute renal failure syndrome; Translations: [Acute kidney failure, unspecified] Onset: 07-13-2023 07-06-2023 Episodic Acute bronchitis (1 source) Viral bronchitis; Translations: [Acute bronchitis due to other specified organisms] 05-03-2023 Episodic Acute cerebrovascular disease (2 sources) Cerebrovascular accident; Translations: [Cerebral infarction, unspecified] 06-01-2022 Chronic Blindness and vision defects (4 sources) Presbyopia; Translations: [Presbyopia] Episodic Cataract (3 sources) Bilateral senile combined form cataracts of eyes; Translations: [Combined forms of age-related cataract, bilateral] Chronic Chronic obstructive pulmonary disease and bronchiectasis (7 sources) Bronchitis; Translations: [Bronchitis, not specified as acute or chronic] 09-04-2023 Episodic Coagulation and hemorrhagic disorders (20 sources) Platelet count below reference range; Translations: [Thrombocytopenia, unspecified] Onset: 08-05-2021 08-05-2021 Chronic Deficiency and other anemia (3 sources) Pancytopenia; Translations: [Other pancytopenia] 08-10-2024 Chronic Deficiency and other anemia (1 source) Other pancytopenia; Translations: [Other pancytopenia] Onset: 08-10-2024 Chronic Diabetes mellitus without complication (20 sources) Type 2 diabetes mellitus without complication; Translations: [Type 2 diabetes mellitus without complications] Onset: 04-28-2021 Chronic Diabetes mellitus without complication (1 source) Hyperglycemia; Translations: [Hyperglycemia, unspecified] Episodic Disorders of lipid metabolism (20 sources) Pure hypercholesterolemia; Translations: [Pure hypercholesterolemia, unspecified] Onset: 11-10-2019 Chronic E Codes: Adverse effects of medical drugs (12 sources) Adverse reaction to drug; Translations: [Adverse effect of unspecified drugs, medicaments and biological substances, initial encounter] 07-06-2023 Episodic Esophageal disorders (10 sources) Esophageal varices without bleeding; Translations: [Esophageal varices without bleeding] Onset: 07-13-2023 07-13-2023 Chronic Essential hypertension (20 sources) Essential hypertension; Translations: [Essential (primary) hypertension] Onset: 07-23-2021 Chronic Fracture of upper limb (7 sources) Fracture of distal end of right radius; Translations: [Unspecified fracture of the lower end of right radius, initial encounter for closed fracture] 09-27-2023 Episodic Headache; including migraine (4 sources) Headache; Translations: [Headache] 06-01-2022 Episodic Immunizations and screening for infectious disease (2 sources) Contact with and (suspected) exposure to other viral communicable diseases; Translations: [Contact with and (suspected) exposure to other viral communicable diseases] Onset: 02-02-2020 Episodic Nausea and vomiting (12 sources) Nausea, vomiting and diarrhea; Translations: [Nausea with vomiting, unspecified] 07-06-2023 Episodic Other aftercare (1 source) Patient encounter status; Translations: [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] Episodic Other circulatory disease (13 sources) H/O: hypertension; Translations: [Personal history of other diseases of the circulatory system] 06-01-2022 Episodic Other circulatory disease (2 sources) Personal history of other diseases of the circulatory system; Translations: [Personal history of other diseases of circulatory system] 06-01-2022 Episodic Other connective tissue disease (12 sources) Weakness of face muscles; Translations: [Facial weakness] 06-02-2022 Episodic Other connective tissue disease (1 source) Facial weakness; Translations: [Facial weakness] 06-03-2022 Episodic Other connective tissue disease (2 sources) Pain in right hand; Translations: [Pain in right hand] 09-08-2023 Episodic Other connective tissue disease (1 source) Pain in right hand; Translations: [Pain of right hand] Onset: 09-08-2023 Episodic Other disorders of stomach and duodenum (1 source) Other diseases of stomach and duodenum; Translations: [Portal hypertensive gastropathy (HCC) (HCC)] Onset: 07-13-2023 Episodic Other ear and sense organ disorders (20 sources) Conductive hearing loss, unilateral, right ear, with unrestricted hearing on the contralateral side; Translations: [Conductive hearing loss, unilateral] Onset: 11-30-2022 11-30-2022 Chronic Other ear and sense organ disorders (1 source) Tinnitus of right ear; Translations: [Tinnitus, right ear] 09-30-2022 Episodic Other gastrointestinal disorders (1 source) Diarrhea; Translations: [Diarrhea, unspecified] Episodic Other gastrointestinal disorders (10 sources) Swollen abdomen; Translations: [Abdominal distension (gaseous)] 07-04-2024 Episodic Other injuries and conditions due to external causes (2 sources) Injury of right wrist; Translations: [Unspecified injury of right wrist, hand and finger(s), initial encounter] 09-08-2023 Episodic Other injuries and conditions due to external causes (1 source) Unspecified injury of right wrist, hand and finger(s), initial encounter; Translations: [Injury of right wrist, initial encounter] Onset: 09-08-2023 Episodic Other liver diseases (1 source) Steatosis of liver; Translations: [Fatty (change of) liver, not elsewhere classified] Chronic Other liver diseases (20 sources) Cirrhosis of liver; Translations: [Unspecified cirrhosis of liver] Onset: 07-13-2023 06-29-2023 Chronic Other liver diseases (20 sources) Fatty (change of) liver, not elsewhere classified; Translations: [Nonalcoholic fatty liver disease] Onset: 07-10-2024 07-06-2023 Chronic Other liver diseases (9 sources) Portal hypertensive gastropathy; Translations: [Portal hypertension] Onset: 07-13-2023 07-13-2023 Chronic Other liver diseases (1 source) Portal hypertension; Translations: [Portal hypertensive gastropathy (HCC) (HCC)] Onset: 07-13-2023 Chronic Other liver diseases (2 sources) Unspecified cirrhosis of liver; Translations: [Cirrhosis of liver without ascites, unspecified hepatic cirrhosis type (HCC)] Onset: 07-13-2023 Chronic Other liver diseases (2 sources) Abnormal levels of other serum enzymes; Translations: [Abnormal liver enzymes] Onset: 08-05-2021 Episodic Other lower respiratory disease (2 sources) Persistent cough; Translations: [Cough present for greater than 3 weeks] 05-03-2023 Episodic Other lower respiratory disease (2 sources) Dyspnea; Translations: [Shortness of breath] 07-13-2023 Episodic Other lower respiratory disease (1 source) Shortness of breath; Translations: [Shortness of breath] Onset: 07-13-2023 Episodic Other lower respiratory disease (1 source) Cough; Translations: [Acute cough] 03-06-2023 Episodic Other nervous system disorders (4 sources) [place]'s palsy; 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] Episodic Other nervous system disorders (1 source) Facial palsy; 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] 09-30-2022 Episodic Other nervous system disorders (1 source) Eyelid finding; Translations: [Fasciculation] 02-23-2023 Episodic Other non-traumatic joint disorders (7 sources) Pain in wrist; Translations: [Pain in right wrist] 09-27-2023 Episodic Other nutritional; endocrine; and metabolic disorders (20 sources) Obese class II; Translations: [Obesity, unspecified] Onset: 07-23-2021 Chronic Other nutritional; endocrine; and metabolic disorders (10 sources) Hyperbilirubinemia; Translations: [Other disorders of bilirubin metabolism] 07-06-2023 Chronic Other nutritional; endocrine; and metabolic disorders (2 sources) Other disorders of bilirubin metabolism; Translations: [Jaundice, unspecified, not of ] 07-06-2023 Chronic Other screening for suspected conditions (not mental disorders or infectious disease) (20 sources) Raised TSH level; Translations: [Other specified abnormal findings of blood chemistry] Onset: 08-05-2021 Resolved: 04-26-2023 08-05-2021 Episodic Residual codes; unclassified (2 sources) Menopause present; Translations: [Asymptomatic menopausal state] 10-20-2022 Episodic Residual codes; unclassified (1 source) Viral syndrome; Translations: [Other general symptoms and signs] 04-26-2023 Episodic Residual codes; unclassified (1 source) Edema, generalized; Translations: [Generalized edema] 07-13-2023 Episodic Residual codes; unclassified (1 source) Generalized edema; Translations: [Generalized edema] Onset: 07-13-2023 Episodic Substance-related disorders (1 source) Opioid dependence, uncomplicated; Translations: [Opioid dependence, uncomplicated] Onset: 04-10-2024 Chronic Unclassified (1 source) COVID-19; Translations: [COVID-19] Onset: 02-02-2020 Unclassified (1 source) Cough present for greater than 3 weeks; Translations: [Cough present for greater than 3 weeks] Onset: 05-03-2023 Unclassified (1 source) Acute cough; Translations: [Acute cough] Onset: 03-06-2023 Past or Other Problems Problem Classification Problem Date Documented Da te Episodic/Chronic Deficiency and other anemia (1 source) Anemia, unspecified; Translations: [Anemia, unspecified] Onset: 06-06-2024 Episodic Other ear and sense organ disorders (2 sources) Otalgia, right ear; Translations: [Otalgia, unspecified] Onset: 09-30-2022 Episodic Other ear and sense organ disorders (20 sources) Tinnitus of vascular origin; Translations: [Pulsatile tinnitus, right ear] Onset: 11-30-2022 11-30-2022 Episodic Other gastrointestinal disorders (1 source) Abdominal distension (gaseous); Translations: [Abdominal distension (gaseous)] Onset: 07-04-2024 Episodic Other hematologic conditions (2 sources) Personal history of diseases of the blood and blood-forming organs and certain disorders involving the immune mechanism; Translations: [Personal history of diseases of the blood and blood-forming organs and certain disorders involving the immune mechanism] Onset: 03-24-2024 Episodic Other liver diseases (20 sources) Liver enzymes abnormal; Translations: [Abnormal levels of other serum enzymes] Onset: 08-05-2021 08-05-2021 Episodic Other nervous system disorders (20 sources) [place] palsy of right side of face; 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] Onset: 06-23-2022 Episodic Other nutritional; endocrine; and metabolic disorders (12 sources) Obese class I; Translations: [Obesity, unspecified] Onset: 04-28-2021 Resolved: 07-23-2021 04-28-2021 Chronic Residual codes; unclassified (1 source) Asymptomatic menopausal state; Translations: [Asymptomatic menopause] Onset: 10-20-2022 Episodic Spondylosis; intervertebral disc disorders; other back problems (2 sources) Sciatica, unspecified side; Translations: [Sciatica, left side] Onset: 01-20-2024 Episodic Results Test Name Value Interpretation Reference Range Facility MR/PAT.Veronica 10-16-2024 MR/PAT.RAMONA [facility] Medical Records Department [address] [place] [address] PAT - Anesthesia 10/16/242020 MR#: [id number] Acct: [id number] Name: MACY MORALES Rep #: [id number] : 1955 69 From: Jhoan Frost MD PCP: Dr. Angelita Call MD Status:PRE [facility] Race: H Location: EN Pre-Assessment Diagnosis/Proposed Procedure Planned Operative Procedure(s): EGD,COLONOSCOPY Anesthesia History Anesthesia History - communications maintainer: Anesthesia History - communications maintainer Hx Hospitalization No 10/16/24 17:00 Any Problems With Anesthesia No 10/16/24 17:00 Cholinesterase deficiency No 10/16/24 17:00 You/Your Family Experience No 10/16/24 17:00 fever (hyperthermia) with Relationship Recent Exposure to Contagious Disease Does patient have nerve No 10/16/24 17:00 stimulator Patient instructed to have device shut off --Does patient have Pacemaker or ICD? When Was Last Pacemaker Check QUESTION #4 FULL TEXT: You/Your Family Experience fever (hyperthermia) with Anesthesia Last Oral Intake Last Oral intake: Last Oral Intake NPO since Meds taken in AM with sips of water? Meds patient instructed to take am of surgery PONV PONV - communications maintainer: PONV - communications maintainer Female Yes 10/16/24 17:00 HX of Motion Sickness No 10/16/24 17:00 HX of N/V After Surgery No 10/16/24 17:00 Non-Smoker Yes 10/16/24 17:00 Duration of Surgery greater No 10/16/24 17:00 than 60 minutes Number of Risk Factors 2 10/16/24 17:00 PONV Score Moderate Risk 10/16/24 17:00 Height Weight Height Weight: Anesthesia: Height Weight Height 5 ft 08/10/24 09:10 Respiratory Assessment Respiratory Assessment - communications maintainer: Respiratory Tract Infection Hx - communications maintainer Hx Respiratory Tract Infection No 10/16/24 17:00 STOP Sleep Apnea STOP Sleep Apnea - communications maintainer: STOP Sleep Apnea - communications maintainer Hx Hypertension Yes 10/16/24 17:00 Hx Sleep Apnea No 10/16/24 17:00 CPAP BIPAP Do you snore loudly (louder No 10/16/24 17:00 than talking or can be heard Do you often feel tired/ No 10/16/24 17:00 fatigued/ sleepy during daytime? Has anyone observed you stop No 10/16/24 17:00 breathing during sleep? STOP Results Negative 10/16/24 17:00 QUESTION #5 FULL TEXT : Do you snore loudly (louder than talking or can be heard through closed doors)? 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 Specify any problems Hx of Preganancy in last 3 No 10/16/24 17:00 Months Nurse Filling Out Transfusion MAXIMUS 10/16/24 17:00 Questions: Date: 10/16/24 10/16/24 17:00 Time: 17:02 10/16/24 17:00 Patient unable to answer at this time (ie. confused, unrespo /Reproduction History /Reproductive History - communications maintainer: /Reproductive Hx- communications maintainer Hx Now Gestational Age (in weeks): EDC: Hx Hx Para Hx Section SAB PFSH Medical History (Updated 10/16/24 @ 17:10 by Leslie Welch) Thyroid disease Hepatitis Non-smoker History of edema History of echocardiogram Fracture of right distal radius Right wrist pain Adverse drug reaction Hyperbilirubinemia Nausea vomiting and diarrhea Acute renal failure Acute kidney injury Thrombocytopenia Facial droop History of hypertension HTN (hypertension) Diabetes Home Medications ???Medication ???Instructions ???Recorded ???Last Taken ???Type atorvastatin 20 mg tablet 20 mg PO QHS 07/06/23 Unknown Hist ory metoclopramide HCl 5 mg tablet 5 mg PO TID #90 tabs 07/03/24 Unkn own Rx (Reglan) furosemide 40 mg tablet (Lasix) 40 mg PO QDAY 07/04/24 Unknown His tory levothyroxine 50 mcg capsule 50 mcg PO QDAY 07/04/24 Unknown Hi story linagliptin 5 mg tablet (Tradjenta) 5 mg PO QDAY 07/04/24 10/16/24 History pantoprazole 40 mg tablet,delayed 40 mg PO QDAY #90 tabs 07/04/24 U nknown Rx release rifaximin 550 (more content not included)... Normal [facility] Hepatitis A AB, Totalon 05 HEPATITIS A,TOT Positive Abnormal Negative [facility] Comment on above: Result Comment: Comm ent: The HAV total antibody assay detects both IgG and IgM but does not differentiate between them. A negative result suggests susceptibility to infection. A positive result could be due to vaccination, previously resolved infection or active infection. Testing for HAV IgM should be performed if active HAV infection is suspected. [facility] offers profiles that will automatically reflex positive HAV total antibody results to IgM (e.g., panel #[id number] HAV Antibody w/ Rfx). Performed at: [address] [id number] Lieutenant Shift Supervisor: Aaron Ackerman PhD, Phone: [phone] Performed By: #### L 3100.0300, L500.3400, L500.2500, L3460.6952, L501.5101, L100.0100 ####[facility] [address] [place], [place], [id number] L501.5101on 08-11-2024 GGTP 208 IU/L Abnormal 0-60 [facility] Comment on above: Performed By: #### L 3100.0300, L500.3400, L500.2500, L3890.6202, L501.5101, L100.0100 ####[facility] [address] [place], [address] Absolute lymphocyte countOrd ered By: Jessica Worthington on 08-10-2024 Lymphocytes Auto (Unsp spec) [#/Vol] 0.98 10*3/uL 0.83-4.51 [facility] Absolute neutrophil countOrd ered By: Jessica Worthington on 08-10-2024 Neutrophils (Bld) [#/Vol] 2.8 10*3/uL 2.0-7.7 [facility] Anion gap in Serum or Plasma Ordered By: Jessica Worthington on 08-10-2024 Anion gap [Moles/Vol] 10 mmol/L 5-15 [facility] Automated lymphocyte count a s percentage of total leukocytesOrdered By: Jessica Worthington on 08-10-2024 Lymphocytes/100 WBC Auto (Unsp spec) 21.7 % 19-41 [facility] BUN/creatinine ratioOrdered By: Jessica Worthington on 08-10-2024 Urea nitrogen/Creatinine [Mass ratio] 17.3 mg/mg 10- [facility] Basic Metabolic Profile (BMP )on 08-10-2024 BUN/CRE 17.3 RATIO Normal - [facility] Comment on above: Performed By: #### L 3100.0300, L500.3400, L500.2500, L3890.6202, L501.5101, L100.0100 ####[facility] [address] [place], [address] Calcium [Mass/Vol] 9.2 mg/dL Normal 7.6-11.0 [facility] Comment on above: Performed By: #### L 3100.0300, L500.3400, L500.2500, L3890.6202, L501.5101, L100.0100 ####[facility] [address] [place], [address] Chloride [Moles/Vol] 101 mmol/L Normal 98-108 [facility] Comment on above: Performed By: #### L 3100.0300, L500.3400, L500.2500, L3890.6202, L501.5101, L100.0100 ####[facility] [address] [place], [address] CO2 [Moles/Vol] 22.6 mmol/L Normal 21.0-32.0 [facility] Comment on above: Performed By: #### L 3100.0300, L500.3400, L500.2500, L3890.6202, L501.5101, L100.0100 ####[facility] [address] [place], [address] Creatinine [Mass/Vol] 0.86 mg/dL Normal 0.70-1.20 [facility] Comment on above: Performed By: #### L 3100.0300, L500.3400, L500.2500, L3890.6202, L501.5101, L100.0100 ####[facility] [address] [place], [address] GAP 10 Normal 5-15 [facility] Comment on above: Performed By: #### L 3100.0300, L500.3400, L500.2500, L3890.6202, L501.5101, L100.0100 ####[facility] [address] [place], [address] GFR/1.73 sq M.predicted among non-blacks MDRD (S/P/Bld) [Vol rate/Area] 75 mL/min/{1.73_m2} Normal >60 [facility] Comment on above: Result Comment: mL/m in/1.73m2 CKD-EPI Creatinine Equation (2020) Performed By: #### L 3100.0300, L500.3400, L500.2500, L3890.6202, L501.5101, L100.0100 ####[facility] [address] [place], [address] Glucose [Mass/Vol] 152 mg/dL High 70-99 [facility] Comment on above: Performed By: #### L 3100.0300, L500.3400, L500.2500, L3890.6202, L501.5101, L100.0100 ####[facility] [address] [place], [address] Potassium [Moles/Vol] 5.0 mmol/L Normal 3.3-5.1 [facility] Comment on above: Performed By: #### L 3100.0300, L500.3400, L500.2500, L3890.6202, L501.5101, L100.0100 ####[facility] [address] [place], [address] Sodium [Moles/Vol] 134 mmol/L Normal 133-145 [facility] Comment on above: Performed By: #### L 3100.0300, L500.3400, L500.2500, L3890.6202, L501.5101, L100.0100 ####[facility] [address] [place], [address] Urea nitrogen [Mass/Vol] 15 mg/dL Normal 4-19 [facility] Comment on above: Performed By: #### L 3100.0300, L500.3400, L500.2500, L3890.6202, L501.5101, L100.0100 ####[facility] [address] [place], [address] Basophil percentageOrdered B y: Jessica Worthington on 08-10-2024 Basophils/100 WBC (Bld) 0.9 % 0-1 [facility] Bilirubin directOrdered By: Jessica Worthington on 08-10-2024 Bilirubin.direct [Mass/Vol] 1.03 mg/dL High 0.00-0.30 [facility] Bilirubin, totalOrdered By: Jessica Worthington on 08-10-2024 Bilirubin [Mass/Vol] 1.79 mg/dL High 0.00-1.30 [facility] CBC W/Diff, Automatedon 07-14 Absolute Lymph 0.98 X10 3/uL Normal 0.83-4.51 [facility] Comment on above: Performed By: #### L 3100.0300, L500.3400, L500.2500, L3890.6202, L501.5101, L100.0100 ####[facility] [address] [place], [address] Absolute Neut 2.8 X10 3/uL Normal 2.0-7.7 [facility] Comment on above: Performed By: #### L 3100.0300, L500.3400, L500.2500, L3890.6202, L501.5101, L100.0100 ####[facility] [address] [place], [address] Basophils/100 WBC (Bld) 0.9 % Normal 0-1 [facility] Comment on above: Performed By: #### L 3100.0300, L500.3400, L500.2500, L3890.6202, L501.5101, L100.0100 ####[facility] [address] [place], [address] Eosinophils/100 WBC (Bld) 4.4 % Normal 0-5 [facility] Comment on above: Performed By: #### L 3100.0300, L500.3400, L500.2500, L3890.6202, L501.5101, L100.0100 ####[facility] [address] [place], [address] Erythrocyte distribution width (RBC) [Ratio] 14.9 % High 11.6-14.6 [facility] Comment on above: Performed By: #### L 3100.0300, L500.3400, L500.2500, L3890.6202, L501.5101, L100.0100 ####[facility] [address] [place], [address] Hematocrit (Bld) [Volume fraction] 38.8 % Normal 37-47 [facility] Comment on above: Performed By: #### L 3100.0300, L500.3400, L500.2500, L3890.6202, L501.5101, L100.0100 ####[facility] [address] [place], [address] Hemoglobin (Bld) [Mass/Vol] 13.1 g/dL Normal 12.0-15.0 [facility] Comment on above: Performed By: #### L 3100.0300, L500.3400, L500.2500, L3890.6202, L501.5101, L100.0100 ####[facility] [address] [place], [address] IG% 0.400 Normal 0.0-0.9 [facility] Comment on above: Result Comment: IG% - Immature Granulocytes (promyelocytes, myelocytes and metamyelocytes) > 1% indicates that a LEFT SHIFT is Present. Performed By: #### L 3100.0300, L500.3400, L500.2500, L3890.6202, L501.5101, L100.0100 ####[facility] [address] [place], [address] Lymphocytes/100 WBC (Bld) 21.7 % Normal 19-41 [facility] Comment on above: Performed By: #### L 3100.0300, L500.3400, L500.2500, L3890.6202, L501.5101, L100.0100 ####[facility] [address] [place], [address] MCH (RBC) [Entitic mass] 31.3 pg Normal 27.0-32.0 [facility] Comment on above: Performed By: #### L 3100.0300, L500.3400, L500.2500, L3890.6202, L501.5101, L100.0100 ####[facility] [address] [place], [address] MCHC (RBC) [Mass/Vol] 33.8 g/dL Normal 32-36 [facility] Comment on above: Performed By: #### L 3100.0300, L500.3400, L500.2500, L3890.6202, L501.5101, L100.0100 ####[facility] [address] [place], [address] MCV (RBC) [Entitic vol] 92.8 fL Normal 81-99 [facility] Comment on above: Performed By: #### L 3100.0300, L500.3400, L500.2500, L3890.6202, L501.5101, L100.0100 ####[facility] [address] [place], [address] Monocytes/100 WBC (Bld) 11.3 % High 0-10 [facility] Comment on above: Performed By: #### L 3100.0300, L500.3400, L500.2500, L3890.6202, L501.5101, L100.0100 ####[facility] [address] [place], [address] Neutrophils/100 WBC (Bld) 61.3 % Normal 47-70 [facility] Comment on above: Performed By: #### L 3100.0300, L500.3400, L500.2500, L3890.6202, L501.5101, L100.0100 ####[facility] [address] [place], [address] Nucleated RBC (Bld) [#/Vol] 0 10*3/uL Normal 0-5 [facility] Comment on above: Performed By: #### L 3100.0300, L500.3400, L500.2500, L3890.6202, L501.5101, L100.0100 ####[facility] [address] [place], [address] Platelet mean volume (Bld) [Entitic vol] 12.7 fL High 6.2-12.0 [facility] Comment on above: Performed By: #### L 3100.0300, L500.3400, L500.2500, L3890.6202, L501.5101, L100.0100 ####[facility] [address] [place], [address] Platelets (Bld) [#/Vol] 58 10*3/uL Low 150-450 [facility] Comment on above: Performed By: #### L 3100.0300, L500.3400, L500.2500, L3890.6202, L501.5101, L100.0100 ####[facility] [address] [place], [address] RBC (Bld) [#/Vol] 4.18 10*6/uL Low 4.2-5.4 [facility] Comment on above: Performed By: #### L 3100.0300, L500.3400, L500.2500, L3890.6202, L501.5101, L100.0100 ####[facility] [address] [place], [address] RDW SD 50.9 fl High 35.1-43.9 [facility] Comment on above: Performed By: #### L 3100.0300, L500.3400, L500.2500, L3890.6202, L501.5101, L100.0100 ####[facility] [address] [place], [address] WBC (Bld) [#/Vol] 4.5 10*3/uL Normal 4.4-11.0 [facility] Comment on above: Performed By: #### L 3100.0300, L500.3400, L500.2500, L3890.6202, L501.5101, L100.0100 ####[facility] [address] [place], [address] Carbon dioxide, total [Moles /volume] in Central venous bloodOrdered By: Jessica Worthington on 08-10-2024 CO2 [Moles/Vol] 22.6 mmol/L 21.0-32.0 [facility] Chloride assayOrdered By: Michael Worthington on 08-10-2024 Chloride [Moles/Vol] 101 mmol/L 98-108 [facility] Eosinophil percentageOrdered By: Jessica Worthington on 08-10-2024 Eosinophils/100 WBC (Bld) 4.4 % 0-5 [facility] Erythrocyte distribution wid th ratioOrdered By: Jessica Worthington on 08-10-2024 Erythrocyte distribution width (RBC) [Ratio] 14.9 % High 11.6-14.6 [facility] Erythrocyte distribution wid th standard deviationOrdered By: Jessica Worthington on 08-10-2024 Erythrocyte distribution width (RBC) [Ratio] 50.9 fl High 35.1-43.9 [facility] Gamma glutamyl transferase ( GGT) measurementOrdered By: Jessica Worthington on 08-10-2024 Amylase [Catalytic activity/Vol] 208 U/L High 0-60 [facility] Gastroenterology Visit Repor ton 08-10-2024 Gastroenterology Visit Report [facility] [address] [place] [address] OFFICE VISIT Date of Service: 08/10/24 MR#: [id number] Acct: [id number] Name: MACY MORALES Rep #: [id number] : 1955 Provider: JENNIFER de la vega Age/Sex: 68/F Location: [facility] Status: Signed Intake Vital Signs 07/04/24 11:13 08/10/24 09:10 Height 5 ft 5 ft Weight: 183 lb 4 oz BMI 35.8 BP 146/80 H Respiration 16 Pulse 69 Pulse Oximetry (%) 98 Oxygen Delivery Method room air Intake Visit Reasons: 1 M FU Chief Complaint: abdominal pain Vehicle Service Agent Required: Yes Accompanied by: Daughter Is patient in pain?: No Allergies No Known Allergies Allergy (Verified 08/10/24 09:07) Medications ???Medication ???Instructions ???Recorded ???Confirmed ???Type atorvastatin 20 mg tablet 20 mg PO DAILY 07/06/23 08/10/24 H istory metoclopramide HCl 5 mg tablet 5 mg PO TID #90 tabs 07/03/2407/14 Rx (Reglan) furosemide 40 mg tablet (Lasix) 40 mg PO QDAY 07/04/24 08/10/24 Hi story gabapentin 100 mg capsule 100 mg PO TID PRN 07/04/24 5 History levothyroxine 50 mcg capsule 50 mcg PO QDAY 07/04/24 08/10/24 H istory linagliptin 5 mg tablet (Tradjenta) 5 mg PO QDAY 07/04/24 08/10/24 History pantoprazole 40 mg tablet,delayed 40 mg PO QDAY #90 tabs 07/04/24 0 08/10/24 Rx release rifaximin 550 mg tablet (Xifaxan) 550 mg PO BID hepatic 07/04/24 Rx encephalopathy, cirrhosis #180 tabs spironolactone 100 mg tablet 100 mg PO QAM #90 tabs 07/04/24 Rx (Aldactone) carvedilol 6.25 mg tablet 6.25 mg PO QHS 08/10/24 08/10/24 H istory lactulose 10 gram/15 mL oral 10 g PO QHS 08/10/24 08/10/24 Hist ory solution lactulose 10 gram/15 mL oral 20 g PO BID 08/10/24 08/10/24 Hist ory solution peg 3350-electrolytes 236 240 ml PO Q10M #4,000 mL 08/13/24 08/13/24 Rx gram-22.74 gram-6.74 gram-5.86 gram solution (Golytely) Have you fallen in the past year?: No Nurse's Note: Still has abdominal pain, like cramps, across the front. Not all of the time. It comes when she is hungry but goes away when she eats. Is there when she has to go to the bathroom but then is gone after. [facility] Medical History (Updated 08/14/24 @ 07:08 by Jessica Worthington NP-C) Fracture of right distal radius Right wrist pain Adverse drug reaction Hyperbilirubinemia Nausea vomiting and diarrhea Acute renal failure Acute kidney injury Thrombocytopenia Facial droop History of hypertension HTN (hypertension) Diabetes Family History Other CVA (cerebral vascular accident) Hypertension Social History (Updated 09/27/23 @ 09:25 by Sofi Johnson MA) household members: spouse, children and other details: 2 grandchildren Smoking Status: Never smoker alcohol intake: never HPI HPI Chief Complaint: abdominal pain Details: MACY MORALES, is a 68 F who presents to the office today for OV 07/04/2024 68-year-old female presents for follow-up with complaints of abdominal distention, abdominal discomfort and early satiety. She was last seen in the office November [address] Marie for follow-up of cirrhosis. She denies any nausea or vomiting. Her weight is up 8 pounds and does Exhibit 1+ BLE pitting edema and mild ascites, with complaints of SOB and fatigue. She is on Lasix 40 mg daily as well as lactulose twice daily and metoclopramide 3 times daily. Symptoms of abdominal distention and discomfort with early satiety began approximately 1 year ago and worsened since starting Ozempic February 2024. She denies any improvement in symptoms since discontinuing Ozempic 5 weeks ago. She denies any heartburn and discontinued pantoprazole 40 mg daily 4 to 6 weeks ago. She reports having 3-4 formed stools daily. Abdominal ultrasound performed 05/18/2024 does reveal small amount of ascites. She will complete an abdominal x-ray today and schedule abdominal ultrasound and gastric emptying study. We have discussed the importance of a low-sodium diet, avoidance of added salt to meals and daily weight. I have added Aldactone to 100 mg daily and she will have a BMP drawn in 1 week. I have also asked her to resume pantoprazole 40 mg once daily, if no improvement in symptoms over the next 2 to 3 weeks I will discontinue due to potential increased risk of infection in patients with cirrhosis. She will follow-up in one month. She reports having labs drawn today just before appointment, ordered by PCP. We will obtain a copy of these results. Patient Instructions: 1. KUB x-ray today 2. ABD Ultrasound call [phone] to schedule 3. Gastric Emptying Study call [phone] to schedule 4. Resume pantoprazole 40mg once daily 5. Daily weights, contact office with >5lwanda briggs (more content not included)... Normal [facility] Glomerular filtration rate ( GFR) estimation/1.73 sq m using serum, plasma, or whole bOrdered By: Jessica Worthington on 08-10-2024 GFR/1.73 sq M.predicted among non-blacks MDRD (S/P/Bld) [Vol rate/Area] 75 mL/min/{1.73_m2} >60 [facility] Comment on above: mL/min/1.73m2 CKD-EP I Creatinine Equation (2020) Hematocrit Auto (Bld) [Volum e fraction]Ordered By: Jessica Worthington on 08-10-2024 Hematocrit (Bld) [Volume fraction] 38.8 % 37-47 [facility] Hemoglobin measurementOrdere d By: Jessica Worthington on 08-10-2024 Hemoglobin (Bld) [Mass/Vol] 13.1 g/dL 12.0-15.0 [facility] Hepatitis B Surface Antibody on 08-10-2024 HEP B Surf Ab Non-Reactive Normal [facility] Comment on above: Result Comment: <8.5 mIU/mL: Non-Reactive 8.5<= x <11.5 mIU/mL: Indeterminate >=11.5 mIU/mL: Reactive Non Reactive: Inconsistent with immunity less than <10 mIU/mL Reactive: Consistent with immunity greater than or equal to 10 mIU/mL Performed By: #### L 3100.0300, L500.3400, L500.2500, L3890.6202, L501.5101, L100.0100 ####[facility] [address] [place], [address] Immature granulocytes/100 WB C Auto (Bld)Ordered By: Jessica Worthington on 08-10-2024 Immature granulocytes/100 WBC (Bld) 0.400 % 0.0-0.9 [facility] Comment on above: IG% - Immature Granu locytes (promyelocytes, myelocytes and metamyelocytes) > 1% indicates that a LEFT SHIFT is Present. Laboratory - Chemistry and C hemistry - challengeOrdered By: Jessica Worthington on 08-10-2024 AST [Catalytic activity/Vol] 95 U/L High <32 [facility] Liver Profileon 08-10-2024 Albumin [Mass/Vol] 3.7 g/dL Normal 3.4-4.8 [facility] Comment on above: Performed By: #### L 3100.0300, L500.3400, L500.2500, L3890.6202, L501.5101, L100.0100 ####[facility] [address] [place], [address] ALK PHOS 244 U/L High 35-104 [facility] Comment on above: Performed By: #### L 3100.0300, L500.3400, L500.2500, L3890.6202, L501.5101, L100.0100 ####[facility] [address] [place], [address] ALT [Catalytic activity/Vol] 50 U/L High <=34 [facility] Comment on above: Performed By: #### L 3100.0300, L500.3400, L500.2500, L3890.6202, L501.5101, L100.0100 ####[facility] [address] [place], [address] AST [Catalytic activity/Vol] 95 U/L High <=31 [facility] Comment on above: Performed By: #### L 3100.0300, L500.3400, L500.2500, L3890.6202, L501.5101, L100.0100 ####[facility] [address] [place], [address] Bilirubin [Mass/Vol] 1.79 mg/dL High 0.00-1.30 [facility] Comment on above: Performed By: #### L 3100.0300, L500.3400, L500.2500, L3890.6202, L501.5101, L100.0100 ####[facility] [address] [place], [address] Bilirubin.direct [Mass/Vol] 1.03 mg/dL High 0.00-0.30 [facility] Comment on above: Performed By: #### L 3100.0300, L500.3400, L500.2500, L3890.6202, L501.5101, L100.0100 ####[facility] [address] [place], [address] Globulin (S) [Mass/Vol] 4.1 g/dL Normal 2.2-4.2 [facility] Comment on above: Performed By: #### L 3100.0300, L500.3400, L500.2500, L3890.6202, L501.5101, L100.0100 ####[facility] [address] [place], [address] T PROT 7.8 g/dL Normal 5.9-8.4 [facility] Comment on above: Performed By: #### L 3100.0300, L500.3400, L500.2500, L3890.6202, L501.5101, L100.0100 ####[facility] [address] [place], [address] MCV (mean corpuscular volume ) determinationOrdered By: Jessica Worthington on 08-10-2024 MCV (RBC) [Entitic vol] 92.8 fL 81-99 [facility] Mean corpuscular hemoglobin (MCH) determinationOrdered By: Jessica Worthington on 08-10-2024 MCH (RBC) [Entitic mass] 31.3 pg 27.0-32.0 [facility] Mean corpuscular hemoglobin concentration (MCHC) determinationOrdered By: Jessica Worthington on 08-10-2024 MCHC (RBC) [Mass/Vol] 33.8 g/dL 32-36 [facility] Mean platelet volume determi nationOrdered By: Jessica Worthington on 08-10-2024 Platelet mean volume (Bld) [Entitic vol] 12.7 fL High 6.2-12.0 [facility] Monocyte percentageOrdered B y: Jessica Worthington on 08-10-2024 Monocytes/100 WBC (Bld) 11.3 % High 0-10 [facility] Neutrophil percentageOrdered By: Jessica Worthington on 08-10-2024 Neutrophils/100 WBC (Bld) 61.3 % 47-70 [facility] Nucleated red blood cell per centageOrdered By: Jessica Worthington on 08-10-2024 Nucleated RBC/100 WBC (Bld) [Ratio] 0 % 0-5 [facility] Platelet countOrdered By: Michael Worthington on 08-10-2024 Platelets (Bld) [#/Vol] 58 10*3/uL Low 150-450 [facility] Potassium measurement (mass/ volume)Ordered By: Jessica Worthington on 08-10-2024 Potassium (Unsp spec) [Mass/Vol] 5.0 mmol/L 3.3-5.1 [facility] RBC Auto (Bld) [#/Vol]Ordere d By: Jessica Worthington on 08-10-2024 RBC (Bld) [#/Vol] 4.18 10*6/uL Low 4.2-5.4 [facility] Serum creatinine measurement (mass/volume)Ordered By: Jessica Worthington on 08-10-2024 Creatinine [Mass/Vol] 0.86 mg/dL 0.70-1.20 [facility] Serum globulin measurementOr dered By: Jessica Worthington on 08-10-2024 Globulin (S) [Mass/Vol] 4.1 g/dL 2.2-4.2 [facility] Serum glucose measurement (m ass/volume)Ordered By: Jessica Worthington on 08-10-2024 Glucose [Mass/Vol] 152 mg/dL High 70-99 [facility] Serum hepatitis B virus surf robert antibody detectionOrdered By: Jessica Worthington on 08-10-2024 HBV surface Ab Ql (S) Non-Reactive [facility] Comment on above: <8.5 mIU/mL: Non-Warren ctive8.5<= x <11.5 mIU/mL: Indeterminate>=11.5 mIU/mL: Reactive Non Reactive: Inconsistent with immunity less than <10 mIU/mL Reactive: Consistent with immunity greater than or equal to 10 mIU/mL Serum or plasma alanine adames otransferase (ALT) measurementOrdered By: Jessica Worthington on 08-10-2024 ALT [Catalytic activity/Vol] 50 U/L High <35 [facility] Serum or plasma albumin cheri urement (mass/volume)Ordered By: Jessica Worthington on 08-10-2024 Albumin [Mass/Vol] 3.7 g/dL 3.4-4.8 [facility] Serum or plasma alkaline iban sphatase measurementOrdered By: Jessica Worthington on 08-10-2024 ALP [Catalytic activity/Vol] 244 U/L High 35-104 [facility] Serum or plasma calcium cheri urement (mass/volume)Ordered By: Jessica Worthington on 08-10-2024 Calcium [Mass/Vol] 9.2 mg/dL 7.6-11.0 [facility] Serum or plasma urea nitroge n measurement (mass/volume)Ordered By: Jessica Worthington on 08-10-2024 Urea nitrogen [Mass/Vol] 15 mg/dL 4-19 [facility] Sodium levelOrdered By: Emily Worthington on 08-10-2024 Sodium [Moles/Vol] 134 mmol/L 133-145 [facility] Total proteinOrdered By: Juliana Worthington on 08-10-2024 Protein [Mass/Vol] 7.8 g/dL 5.9-8.4 [facility] White blood cell (WBC) count Ordered By: Jessica Worthington on 08-10-2024 WBC (Bld) [#/Vol] 4.5 10*3/uL 4.4-11.0 [facility] Gastric Emptying Study - 4 H Jamie 08-01-2024 Gastric Emptying Study - 4 HR [facility] Imaging Services [address] [place] [address] Gastric Emptying Study - 4 HR MR#: [id number] Acct: [id number] Name: MACY MORALES Rep #: [id number] : 1955 F 68 From: Domingo santamaria MD PCP: Dr. Angelita Call MD Status: REG CLI Study: Gastric Emptying Study - 4 HR Date of Exam: Exam# [id number] Ordering Dr: Jessica Worthington SENIOR BIOINFORMATICS SCIENTISTSandi Woodard PROCEDURE: GASTRIC EMPTYING STUDY - 4 HR 08/01/2024 REASON FOR EXAM: EARLY SATIETY COMPARISON: None TECHNIQUE: The patient ingested a standard meal of oatmeal, 2 eggs bread and butter and water. There was no vomiting postprandially. Anterior and posterior planar images of the upper abdomen were obtained for 1 minute immediately following the meal at 1h, 2h and 4h if more than 10% of the activity persisted within the stomach. Regions of interest were drawn, and a geometric mean was used to calculate a xcah-rjdeyxcc-ifkww. RADIOPHARMACEUTICAL: Technetium sulfur colloid DOSE 1.1mCi FINDINGS: Percent activity remaining in stomach: 1 hour 68 % (normal 37-90%) 2 hours: 39 % (normal 30-60%) 4 hours: 5 % (normal 0-10%) NM/Gastric Emptying Study - 4 HR IMPRESSION: Normal gastric emptying study. Reading Location: [place] [address] CC: JENNIFER Worthington; Dr. Angelita Call MD Equipment Superintendent: Signed Normal [facility] Abdomen Limitedon 07-06-2024 Abdomen Limited [facility] Imaging Services [address] [place], [place] [address] Abdomen Limited MR#: [id number] Acct: [id number] Name: MACY MORALES Rep #: [id number] : 1955 F 68 From: Domingo santamaria MD PCP: Dr. Angelita Call MD Status: REG CLI Study: Abdomen Limited Date of Exam: 07/06/24 Exam# [id number] Ordering Dr: Jessica Worthington PROCEDURE: ABDOMEN LIMITED 07/06/2024 REASON FOR EXAM: CIRRHOSIS, ABDOMINAL DISTENSION ADD SPLEEN PLEASE COMPARISON: Prior study dated June 07, 2024. FINDINGS: Liver: Coarsened hepatic echotexture with a nodular liver contour suggestive of cirrhosis. Gallbladder: No stones sludge wall thickening or tenderness. Common bile duct: Normal measuring it measures 2 mm.. Pancreas: Normal Other: Visualized portions of the right kidney are unremarkable. No right upper quadrant ascites. The spleen measures 12.9 cm 6.1 cm 4.6 cm. Small amount of right upper quadrant ascites. Trace amount of fluid in the left upper quadrant. US/Abdomen Limited IMPRESSION: Heterogeneous/fatty infiltration of the liver. Findings suggestive of cirrhosis. Small amount of ascitic fluid is seen in the right upper quadrant and left upper quadrant. Reading Location: [place] [address] CC: SENIOR BIOINFORMATICS SCIENTISTJordi Worthington; Dr. Angelita Call MD Equipment Superintendent: Signed Normal [facility] Abdomen Single Viewon 2024 Abdomen Single View [facility] Imaging Services [address] [place], [place] [address] Abdomen Single View MR#: [id number] Acct: [id number] Name: MACY MORALES Rep #: [id number] : 1955 F 68 From: Quynh Costello PCP: Dr. Angelita Call MD Status: REG CLI Study: Abdomen Single View Date of Exam: 07/04/24 Exam# [id number] Ordering Dr: Jessica Worthington PROCEDURE: ABDOMEN SINGLE VIEW 07/04/2024 REASON FOR EXAM: CONSTIPATION, ABDOMINAL DISTENSION TECHNIQUE: Single view abdomen. Three views of the abdomen were obtained in order to include the entire abdomen on the study. COMPARISON: CT abdomen and pelvis dated 07/06/2023 and abdominal ultrasound study dated 06/08/2024. Acute abdominal series dated 07/06/2023 FINDINGS: Bowel gas: A moderate to large amount of stool and gas is present throughout a nondistended colon. No free air seen. Psoas muscles and renal outlines are partially obscured by overlying bowel gas and fecal material within the colon. No gross organomegaly is seen. Degenerative changes of the lumbar spine are noted. Very mild degenerative changes of the left hip are noted. Bony pelvis appears unremarkable without evidence of fracture or dislocation. SI joints, right hip joint and pubic symphysis are unremarkable. RAD/Abdomen Single View IMPRESSION: The patient appears to be mildly constipated otherwise unremarkable abdominal study. If the patient's symptoms continue or worsen, follow-up imaging is recommended. Reading Location: [facility] CC: JENNIFER Worthington; Dr. Angelita Call MD Equipment Superintendent: Signed Normal [facility] Absolute lymphocyte countOrd ered By: Angelita Call on 07-04-2024 Lymphocytes Auto (Unsp spec) [#/Vol] 1.11 10*3/uL 0.83-4.51 [facility] Absolute neutrophil countOrd ered By: Angelita Call on 07-04-2024 Neutrophils (Bld) [#/Vol] 2.2 10*3/uL 2.0-7.7 [facility] Anion gap in Serum or Plasma Ordered By: Angelita Call on 07-04-2024 Anion gap [Moles/Vol] 10 mmol/L 5-15 [facility] Automated lymphocyte count a s percentage of total leukocytesOrdered By: Angelita Call on 07-04-2024 Lymphocytes/100 WBC Auto (Unsp spec) 26.6 % 19-41 [facility] BUN/creatinine ratioOrdered By: Angelita Call on 07-04-2024 Urea nitrogen/Creatinine [Mass ratio] 16.4 mg/mg 10- [facility] Basophil percentageOrdered B y: Angelita Call on 07-04-2024 Basophils/100 WBC (Bld) 1.0 % 0-1 [facility] Bilirubin, totalOrdered By: Angelita Call on 07-04-2024 Bilirubin [Mass/Vol] 2.50 mg/dL High 0.00-1.30 [facility] Blood manual differential co mment interpretation (narrative result)Ordered By: Angelita Call on 07-04-2024 Manual differential comment Angel (Bld) [Interp] SCANNED [facility] CBC W/Diff, Automatedon 06-14 Absolute Lymph 1.11 X10 3/uL Normal 0.83-4.51 [facility] Comment on above: Performed By: #### L 506.0400, L100.0100, L500.4050, L501.9520 ####[facility] [address] [place], [address] Absolute Neut 2.2 X10 3/uL Normal 2.0-7.7 [facility] Comment on above: Performed By: #### L 506.0400, L100.0100, L500.4050, L501.9520 ####[facility] [address] [place], [address] Basophils/100 WBC (Bld) 1.0 % Normal 0-1 [facility] Comment on above: Performed By: #### L 506.0400, L100.0100, L500.4050, L501.9520 ####[facility] [address] [place], [address] Eosinophils/100 WBC (Bld) 3.1 % Normal 0-5 [facility] Comment on above: Performed By: #### L 506.0400, L100.0100, L500.4050, L501.9520 ####[facility] [address] [place], [address] Erythrocyte distribution width (RBC) [Ratio] 14.7 % High 11.6-14.6 [facility] Comment on above: Performed By: #### L 506.0400, L100.0100, L500.4050, L501.9520 ####[facility] [address] [place], [address] Hematocrit (Bld) [Volume fraction] 34.8 % Low 37-47 [facility] Comment on above: Performed By: #### L 506.0400, L100.0100, L500.4050, L501.9520 ####[facility] [address] [place], [address] Hemoglobin (Bld) [Mass/Vol] 11.7 g/dL Low 12.0-15.0 [facility] Comment on above: Performed By: #### L 506.0400, L100.0100, L500.4050, L501.9520 ####[facility] [address] [place], [address] IG% 0.200 Normal 0.0-0.9 [facility] Comment on above: Result Comment: IG% - Immature Granulocytes (promyelocytes, myelocytes and metamyelocytes) > 1% indicates that a LEFT SHIFT is Present. Performed By: #### L 506.0400, L100.0100, L500.4050, L501.9520 ####[facility] [address] [place], [address] Lymphocytes/100 WBC (Bld) 26.6 % Normal 19-41 [facility] Comment on above: Performed By: #### L 506.0400, L100.0100, L500.4050, L501.9520 ####[facility] [address] [place], [address] MCH (RBC) [Entitic mass] 31.5 pg Normal 27.0-32.0 [facility] Comment on above: Performed By: #### L 506.0400, L100.0100, L500.4050, L501.9520 ####[facility] [address] [place], [address] MCHC (RBC) [Mass/Vol] 33.6 g/dL Normal 32-36 [facility] Comment on above: Performed By: #### L 506.0400, L100.0100, L500.4050, L501.9520 ####[facility] [address] [place], [address] MCV (RBC) [Entitic vol] 93.8 fL Normal 81-99 [facility] Comment on above: Performed By: #### L 506.0400, L100.0100, L500.4050, L501.9520 ####[facility] [address] [place], [address] Monocytes/100 WBC (Bld) 15.8 % High 0-10 [facility] Comment on above: Performed By: #### L 506.0400, L100.0100, L500.4050, L501.9520 ####[facility] [address] [place], [address] Neutrophils/100 WBC (Bld) 53.3 % Normal 47-70 [facility] Comment on above: Performed By: #### L 506.0400, L100.0100, L500.4050, L501.9520 ####[facility] [address] [place], [address] Nucleated RBC (Bld) [#/Vol] 0 10*3/uL Normal 0-5 [facility] Comment on above: Performed By: #### L 506.0400, L100.0100, L500.4050, L501.9520 ####[facility] [address] [place], [address] Platelet mean volume (Bld) [Entitic vol] 12.5 fL High 6.2-12.0 [facility] Comment on above: Performed By: #### L 506.0400, L100.0100, L500.4050, L501.9520 ####[facility] [address] [place], [address] Platelets (Bld) [#/Vol] 66 10*3/uL Low 150-450 [facility] Comment on above: Performed By: #### L 506.0400, L100.0100, L500.4050, L501.9520 ####[facility] [address] [place], [address] RBC (Bld) [#/Vol] 3.71 10*6/uL Low 4.2-5.4 [facility] Comment on above: Performed By: #### L 506.0400, L100.0100, L500.4050, L501.9520 ####[facility] [address] [place], [address] RDW SD 51.2 fl High 35.1-43.9 [facility] Comment on above: Performed By: #### L 506.0400, L100.0100, L500.4050, L501.9520 ####[facility] [address] [place], [address] WBC (Bld) [#/Vol] 4.2 10*3/uL Low 4.4-11.0 [facility] Comment on above: Performed By: #### L 506.0400, L100.0100, L500.4050, L501.9520 ####[facility] [address] [place], [address] Carbon dioxide, total [Moles /volume] in Central venous bloodOrdered By: Angelita Call on 07-04-2024 CO2 [Moles/Vol] 25.7 mmol/L 21.0-32.0 [facility] Chloride assayOrdered By: Geovanny kelley Oneyda on 07-04-2024 Chloride [Moles/Vol] 104 mmol/L 98-108 [facility]abolic Prof ilon 07-04-2024 Albumin [Mass/Vol] 3.5 g/dL Normal 3.4-4.8 [facility] Comment on above: Performed By: #### L 506.0400, L100.0100, L500.4050, L501.9520 ####[facility] [address] [place], [address] Albumin/Globulin [Mass ratio] 1.0 {ratio} Normal 0.9-2.4 [facility] Comment on above: Performed By: #### L 506.0400, L100.0100, L500.4050, L501.9520 ####[facility] [address] [place], [address] ALK PHOS 211 U/L High 35-104 [facility] Comment on above: Performed By: #### L 506.0400, L100.0100, L500.4050, L501.9520 ####[facility] [address] [place], [address] ALT [Catalytic activity/Vol] 34 U/L Normal <=34 [facility] Comment on above: Performed By: #### L 506.0400, L100.0100, L500.4050, L501.9520 ####[facility] [address] [place], [address] AST [Catalytic activity/Vol] 80 U/L High <=31 [facility] Comment on above: Performed By: #### L 506.0400, L100.0100, L500.4050, L501.9520 ####[facility] [address] [place], [address] Bilirubin [Mass/Vol] 2.50 mg/dL High 0.00-1.30 [facility] Comment on above: Performed By: #### L 506.0400, L100.0100, L500.4050, L501.9520 ####[facility] [address] [place], [address] BUN/CRE 16.4 RATIO Normal 10-20 [facility] Comment on above: Performed By: #### L 506.0400, L100.0100, L500.4050, L501.9520 ####[facility] [address] [place], [address] Calcium [Mass/Vol] 9.0 mg/dL Normal 7.6-11.0 [facility] Comment on above: Performed By: #### L 506.0400, L100.0100, L500.4050, L501.9520 ####[facility] [address] [place], [address] Chloride [Moles/Vol] 104 mmol/L Normal 98-108 [facility] Comment on above: Performed By: #### L 506.0400, L100.0100, L500.4050, L501.9520 ####[facility] [address] [place], [address] CO2 [Moles/Vol] 25.7 mmol/L Normal 21.0-32.0 [facility] Comment on above: Performed By: #### L 506.0400, L100.0100, L500.4050, L501.9520 ####[facility] [address] [place], [address] Creatinine [Mass/Vol] 0.72 mg/dL Normal 0.70-1.20 [facility] Comment on above: Performed By: #### L 506.0400, L100.0100, L500.4050, L501.9520 ####[facility] [address] [place], [address] GAP 10 Normal 5-15 [facility] Comment on above: Performed By: #### L 506.0400, L100.0100, L500.4050, L501.9520 ####[facility] [address] [place], [address] GFR/1.73 sq M.predicted among non-blacks MDRD (S/P/Bld) [Vol rate/Area] 92 mL/min/{1.73_m2} Normal >60 [facility] Comment on above: Result Comment: mL/m in/1.73m2 CKD-EPI Creatinine Equation (2020) Performed By: #### L 506.0400, L100.0100, L500.4050, L501.9520 ####[facility] [address] [place], [address] Globulin (S) [Mass/Vol] 3.5 g/dL Normal 2.2-4.2 [facility] Comment on above: Performed By: #### L 506.0400, L100.0100, L500.4050, L501.9520 ####[facility] [address] [place], [address] Glucose [Mass/Vol] 105 mg/dL High 70-99 [facility] Comment on above: Performed By: #### L 506.0400, L100.0100, L500.4050, L501.9520 ####[facility] [address] [place], [address] Potassium [Moles/Vol] 3.8 mmol/L Normal 3.3-5.1 [facility] Comment on above: Performed By: #### L 506.0400, L100.0100, L500.4050, L501.9520 ####[facility] [address] [place], [address] Sodium [Moles/Vol] 139 mmol/L Normal 133-145 [facility] Comment on above: Performed By: #### L 506.0400, L100.0100, L500.4050, L501.9520 ####[facility] [address] [place], [address] T PROT 6.9 g/dL Normal 5.9-8.4 [facility] Comment on above: Performed By: #### L 506.0400, L100.0100, L500.4050, L501.9520 ####[facility] [address] [place], [address] Urea nitrogen [Mass/Vol] 12 mg/dL Normal 4-19 [facility] Comment on above: Performed By: #### L 506.0400, L100.0100, L500.4050, L501.9520 ####[facility] [address] [place], [address] Eosinophil percentageOrdered By: Angelita Call on 07-04-2024 Eosinophils/100 WBC (Bld) 3.1 % 0-5 [facility] Erythrocyte distribution wid th (RBC) [Ratio]Ordered By: Angelita Call on 07-04-2024 Erythrocyte distribution width (RBC) [Entitic vol] 51.2 fL High 35.1-43.9 [facility] Erythrocyte distribution wid th ratioOrdered By: Angelita Call on 07-04-2024 Erythrocyte distribution width (RBC) [Ratio] 14.7 % High 11.6-14.6 [facility] Erythrocyte distribution wid th standard deviationOrdered By: Angelita Call on 07-04-2024 Erythrocyte distribution width (RBC) [Ratio] 51.2 fl High 35.1-43.9 [facility] GFR/1.73 sq M.predicted gato g non-blacks MDRD (S/P/Bld) [Vol rate/Area]Ordered By: Angelita Call on 07-04-2024 Estimated GFR (MDRD) Non-Af Amer 92 >60 [facility] Comment on above: mL/min/1.73m2 CKD-EP I Creatinine Equation (2020) Gastroenterology Visit Repor ton 07-04-2024 Gastroenterology Visit Report [facility] [address] [place] [address] OFFICE VISIT Date of Service: 07/04/24 MR#: [id number] Acct: [id number] Name: MACY MORALES Rep #: [id number] : 1955 Provider: JENNIFER de la vega Age/Sex: 68/F Location: [facility] Status: Signed Intake Vital Signs 05/29/24 12:36 07/04/24 11:13 Height 5 ft 5 ft Weight: 192 lb 6 oz 197 lb 8 oz BMI 37.5 38.5 BP 146/81 H Respiration 16 Pulse 75 Pulse Oximetry (%) 98 Oxygen Delivery Method room air Intake Visit Reasons: ABD PAIN AND DISTENSION Chief Complaint: abdominal pain Vehicle Service Agent Required: Yes Accompanied by: Daughter Is patient in pain?: No Allergies No Known Allergies Allergy (Verified 07/04/24 10:58) Medications ???Medication ???Instructions ???Recorded ???Confirmed ???Type atorvastatin 20 mg tablet 20 mg PO DAILY 07/06/23 07/04/24 H istory amlodipine 5 mg tablet (Norvasc) 5 mg PO DAILY #30 tabs 07/09/23 Rx lactulose 10 gram/15 mL oral 10 g (15 mL) PO DAILY #473 mL 11/1307/04/24 Rx solution metoclopramide HCl 5 mg tablet 5 mg PO TID #90 tabs 07/03/2406/14 Rx (Reglan) furosemide 40 mg tablet (Lasix) 40 mg PO QDAY 07/04/24 07/04/24 Hi story gabapentin 100 mg capsule 100 mg PO TID PRN 07/04/24 5 History levothyroxine 50 mcg capsule 50 mcg PO QDAY 07/04/24 07/04/24 H istory linagliptin 5 mg tablet (Tradjenta) 5 mg PO QDAY 07/04/24 07/04/24 History pantoprazole 40 mg tablet,delayed 40 mg PO QDAY #90 tabs 07/04/24 0 07/04/24 Rx release rifaximin 550 mg tablet (Xifaxan) 550 mg PO BID hepatic 07/04/24 R x encephalopathy, cirrhosis #180 tabs spironolactone 100 mg tablet 100 mg PO QAM #90 tabs 07/04/24 R x (Aldactone) Have you fallen in the past year?: No Nurse's Note: Stopped taking the Ozempic because it made her abdominal pain worse. [facility] Medical History (Updated 07/04/24 @ 11:40 by Jessica Worthington NP-C) Fracture of right distal radius Right wrist pain Adverse drug reaction Hyperbilirubinemia Nausea vomiting and diarrhea Acute renal failure Acute kidney injury Thrombocytopenia Facial droop History of hypertension HTN (hypertension) Diabetes Family History Other CVA (cerebral vascular accident) Hypertension Social History (Updated 09/27/23 @ 09:25 by Soif Johnson MA) household members: spouse, children and other details: 2 grandchildren Smoking Status: Never smoker alcohol intake: never HPI HPI Chief Complaint: abdominal pain Details: MACY MORALES, is a 68 F who presents to the office today for EGD showed evidence of varices and portal hypertensive gastropathy, 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 OV with Dr. Friend 11/25/2023 Refilled lactulose 10 grams (15 mL) PO DAILY 473 mL 3RF metoclopramide HCl (Reglan) one hour before meals 5 mg PO TID 90 tabs 3RF pantoprazole (Protonix) 40 mg PO DAILY 30 tabs 3RF rifaximin (Xifaxan) 550 mg PO BID 60 tabs 0RF 68y/o female presents for consultation with complaints of abdominal pain and distension. She was last seen by Dr. Marie 11/25/2023 Symptoms worse since starting Ozempic, discontinued Ozempic 5 weeks ago - she is having 3-4 BM - c/o early satiety - eating smaller amounts - she is taking Lactulose BID, metoclopramide 5mg TID - Furosemide 40mg QD Weight today 197lbs this is up from 189lbs on 09/27/2023 - she c/o worsening of BLE edema - c/o SOB and fatigue ABD US 05/18/2024 Liver again appears cirrhotic as above. Small amount of free fluid/ascites is seen in the right upper quadrant, right lower quadrant and left lower quadrant. The gallbladder wall is again thickened currently measures 11 mm, previously 8 mm. This is nonspecific in the setting of liver disease. CBD is not visualized. ROS Const Constitutional: Positive for fatigue and weight change (gain); No fever(s) ENT ENT: No difficulty swallowing Gastro GI: Positive for abdominal pain and bloating; No belching, change in bowel habits, change in stool character, coffee ground emesis, constipation, cramping, diarrhea, heartburn, difficulty swallowing, feeling full early, excessive flatus, incontinent of stools, Vomiting blood/hematemesis, Blood in stool, loose stools, Black,tarry stools, nausea/dyspepsia, pain with swallowing, vomiting or other Musc Musculoskeletal: Positive for back pain and sciatica; No joint pain Skin Skin: Positive for dry skin and itchy eyes; No yellowing of the eye Psych Psychiatric: No anxiety and No depression Endo Endocrine: Positive for fatigue and weight yesenia (more content not included)... Normal [facility] Glomerular filtration rate ( GFR) estimation/1.73 sq m using serum, plasma, or whole bOrdered By: Angelita Call on 07-04-2024 GFR/1.73 sq M.predicted among non-blacks MDRD (S/P/Bld) [Vol rate/Area] 92 mL/min/{1.73_m2} >60 [facility] Comment on above: mL/min/1.73m2 CKD-EP I Creatinine Equation (2020) Hematocrit Auto (Bld) [Volum e fraction]Ordered By: Angelita Call on 07-04-2024 Hematocrit (Bld) [Volume fraction] 34.8 % Low 37-47 [facility] Hemoglobin measurementOrdere d By: Angelita Call on 07-04-2024 Hemoglobin (Bld) [Mass/Vol] 11.7 g/dL Low 12.0-15.0 [facility] Immature granulocytes/100 WB C Auto (Bld)Ordered By: Angelita Call on 07-04-2024 Immature granulocytes/100 WBC (Bld) 0.200 % 0.0-0.9 [facility] Comment on above: IG% - Immature Granu locytes (promyelocytes, myelocytes and metamyelocytes) > 1% indicates that a LEFT SHIFT is Present. Laboratory - Chemistry and C hemistry - challengeOrdered By: Angelita Call on 07-04-2024 AST [Catalytic activity/Vol] 80 U/L High <32 [facility] Lymphocytes Auto (Unsp spec) [#/Vol]Ordered By: Angelita Call on 07-04-2024 Lymphocytes (Bld) [#/Vol] 1.11 10*3/uL 0.83-4.5 1 [facility] Lymphocytes/100 WBC Auto (Un sp spec)Ordered By: Angelita Call on 07-04-2024 Lymphocytes/100 WBC (Bld) 26.6 % 19-41 [facility] MCV (mean corpuscular volume ) determinationOrdered By: Angelita Call on 07-04-2024 MCV (RBC) [Entitic vol] 93.8 fL 81-99 [facility] Manual differential comment Angel (Bld) [Interp]Ordered By: Angelita Call on 07-04-2024 Differential Comment SCANNED [facility] Mean corpuscular hemoglobin (MCH) determinationOrdered By: Angelita Call on 07-04-2024 MCH (RBC) [Entitic mass] 31.5 pg 27.0-32.0 [facility] Mean corpuscular hemoglobin concentration (MCHC) determinationOrdered By: Angelita Call on 07-04-2024 MCHC (RBC) [Mass/Vol] 33.6 g/dL 32-36 [facility] Mean platelet volume determi nationOrdered By: Angelita Call on 07-04-2024 Platelet mean volume (Bld) [Entitic vol] 12.5 fL High 6.2-12.0 [facility] Monocyte percentageOrdered B y: Angelita Call on 07-04-2024 Monocytes/100 WBC (Bld) 15.8 % High 0-10 [facility] Neutrophil percentageOrdered By: Angelita Call on 07-04-2024 Neutrophils/100 WBC (Bld) 53.3 % 47-70 [facility] Nucleated red blood cell per centageOrdered By: Angelita Call on 07-04-2024 Nucleated RBC/100 WBC (Bld) [Ratio] 0 % 0-5 [facility] Platelet countOrdered By: Geovanny Call on 07-04-2024 Platelets (Bld) [#/Vol] 66 10*3/uL Low 150-450 [facility] Platelet estimateOrdered By: Angelita Call on 07-04-2024 Platelets LM Ql (Bld) MKD DEC ADEQ [facility] Platelets LM Ql (Bld)Ordered By: Angelita Call on 07-04-2024 Platelet Estimate MKD DEC [facility] Potassium (Unsp spec) [Mass/ Vol]Ordered By: Angelita Call on 07-04-2024 Potassium [Moles/Vol] 3.8 mmol/L 3.3-5.1 [facility] Potassium measurement (mass/ volume)Ordered By: Angelita Call on 07-04-2024 Potassium (Unsp spec) [Mass/Vol] 3.8 mmol/L 3.3-5.1 [facility] RBC Auto (Bld) [#/Vol]Ordere d By: Angelita Call on 07-04-2024 RBC (Bld) [#/Vol] 3.71 10*6/uL Low 4.2-5.4 [facility] Serum creatinine measurement (mass/volume)Ordered By: Angelita Call on 07-04-2024 Creatinine [Mass/Vol] 0.72 mg/dL 0.70-1.20 [facility] Serum globulin measurementOr dered By: Angelita Call on 07-04-2024 Globulin (S) [Mass/Vol] 3.5 g/dL 2.2-4.2 [facility] Serum glucose measurement (m ass/volume)Ordered By: Angelita Call on 07-04-2024 Glucose [Mass/Vol] 105 mg/dL High 70-99 [facility] Serum or plasma alanine adames otransferase (ALT) measurementOrdered By: Angelita Call on 07-04-2024 ALT [Catalytic activity/Vol] 34 U/L <35 [facility] Serum or plasma albumin cheri urement (mass/volume)Ordered By: Angelita Call on 07-04-2024 Albumin [Mass/Vol] 3.5 g/dL 3.4-4.8 [facility] Serum or plasma albumin/glob ulin mass ratioOrdered By: [facility] on 07-04-2024 Albumin/Globulin [Mass ratio] 1.0 {ratio} 0.9-2.4 [facility] Serum or plasma alkaline iban sphatase measurementOrdered By: Angelita Call on 07-04-2024 ALP [Catalytic activity/Vol] 211 U/L High 35-104 [facility] Serum or plasma calcium cheri urement (mass/volume)Ordered By: Angelita Call on 07-04-2024 Calcium [Mass/Vol] 9.0 mg/dL 7.6-11.0 [facility] Serum or plasma urea nitroge n measurement (mass/volume)Ordered By: Angelita Call on 07-04-2024 Urea nitrogen [Mass/Vol] 12 mg/dL 4-19 [facility] Sodium levelOrdered By: Belinda Call on 07-04-2024 Sodium [Moles/Vol] 139 mmol/L 133-145 [facility] T4 Free Directon 07-04-2024 T4 FREE DIRECT 1.30 ng/dL Normal 0.76-1.46 [facility] Comment on above: Performed By: #### L 506.0400, L100.0100, L500.4050, L501.9535 ####[facility] [address] [place], [place], [id number] T4 freeOrdered By: Angelita isaac on 07-04-2024 Free T4 [Mass/Vol] 1.30 ng/dL 0.76-1.46 [facility] TSH DL <= 0.005 mIU/L QnOrde red By: Angelita Call on 07-04-2024 Thyroid Stimulating Hormone (TSH) 3.780 uIU/mL 0.300-4.20 0 [facility] TSH Qn 3.780 uIU/mL 0.300-4.20 0 [facility] Thyroid Stim Hormone (TSH)on 07-04-2024 TSH 3.780 uIU/mL Normal 0.300-4.20 0 [facility] Comment on above: Performed By: #### L 506.0400, L100.0100, L500.4050, L501.9520 ####[facility] [address] [facility] [place], [address] Total proteinOrdered By: Prosper Call on 07-04-2024 Protein [Mass/Vol] 6.9 g/dL 5.9-8.4 [facility] White blood cell (WBC) count Ordered By: Angelita Call on 07-04-2024 WBC (Bld) [#/Vol] 4.2 10*3/uL Low 4.4-11.0 [facility] Abdomen Limitedon 06-07-2024 Abdomen Limited [facility] Services [address] [place], [place] [id number] Abdomen Limited MR#: [id number] Acct: [id number] Name: MACY MORALES Rep #: [id number] : 1955 F 68 From: King Rice MD PCP: Dr. Angelita Call MD Status: REG CLI Study: Abdomen Limited Date of Exam: 06/07/24 Exam# [id number] Ordering Dr: Santino Marie DO EXAM: Ultrasound abdomen limited CLINICAL HISTORY: Cirrhosis COMPARISON: 12/09/2023 TECHNIQUE: Ultrasound abdomen limited FINDINGS: Study is limited by bowel gas and body habitus. Pancreas is obscured by bowel gas. The liver measures 10.6 cm with a diffusely nodular appearance to the liver surface contour and coarse echogenicity consistent with cirrhosis. Flow within the portal vein appears hepatopetal as expected. No gallstones or pericholecystic free fluid. Report of a negative sonographic Santos's sign. The gallbladder wall currently measures 11 mm, previously 8 mm. This is nonspecific in the setting of liver disease. CBD is not visualized. The right kidney measures 10 x 6.4 x 4.6 cm with a cortical thickness of 1.3 cm. No hydronephrosis or perinephric edema seen. Small amount of free fluid is seen in the right upper quadrant, right lower quadrant and left lower quadrant. US/Abdomen Limited IMPRESSION: Study is limited by bowel gas and body habitus. Liver again appears cirrhotic as above. Small amount of free fluid/ascites is seen in the right upper quadrant, right lower quadrant and left lower quadrant. The gallbladder wall is again thickened currently measures 11 mm, previously 8 mm. This is nonspecific in the setting of liver disease. CBD is not visualized. Pancreas is obscured by bowel gas. Reading Location: [id number] CC: Dr. Angelita Call MD; Santino Friend, Equipment Superintendent: Signed Normal [facility] AFP, Tumor Markeron 06-01-19 25 AFP TUMOR MYRNA 8.4 ng/mL Normal 0.0-9.2 [facility] Comment on above: Order Comment: N Result Comment: [employer] Electrochemiluminescence Immunoassay (ECLIA) Values obtained with different assay methods or kits cannot be used interchangeably. Results cannot be interpreted as absolute evidence of the presence or absence of malignant disease. This test is not interpretable in females. Performed at: [facility] [address] [place] [address], [place], [place] [id number] Lieutenant Shift Supervisor: Aaron Ackerman PhD, Phone: [phone] Performed By: #### L 300.3900, L101.9900, L300.4310, L500.4050, L501.6710, L3300.0700, L100.0100 ####[facility] [address] [place], [address] Absolute lymphocyte countOrd ered By: Santino Marie on 05-29-2024 Lymphocytes Auto (Unsp spec) [#/Vol] 1.09 10*3/uL 0.83-4.51 [facility] Absolute neutrophil countOrd ered By: Santino Marie on 05-29-2024 Neutrophils (Bld) [#/Vol] 3.0 10*3/uL 2.0-7.7 [facility] Activated partial thrombopla stin time (aPTT) in platelet poor plasma by coagulation aOrdered By: Santino Marie on 05-29-2024 aPTT Coag (PPP) [Time] 33.3 s 24.1-36.2 [facility] Alpha fetoprotein measuremen t as tumor markerOrdered By: Santino Marie on 05-29-2024 Tumor Marker Alpha Fetoprotein 8.4 ng/mL 0.0-9.2 [facility] Comment on above: [employer] El ectrochemiluminescence Immunoassay(ECLIA)Values obtained with different assay methods or kits cannotbe used interchangeably. Results cannot be interpreted asabsolute evidence of the presence or absence of malignantdisease.This test is not interpretable in females.Performed at: [employer] [id number] Director: Aaron Ackerman PhD, Phone: [phone] Anion gap in Serum or Plasma Ordered By: Santino Marie on 05-29-2024 Anion gap [Moles/Vol] 12 mmol/L 5-15 [facility] Automated lymphocyte count a s percentage of total leukocytesOrdered By: Santino Marie on 05-29-2024 Lymphocytes/100 WBC Auto (Unsp spec) 22.2 % 19-41 [facility] BUN/creatinine ratioOrdered By: Santino Marie on 05-29-2024 Urea nitrogen/Creatinine [Mass ratio] 13.0 mg/mg 10-20 [facility] Basophil percentageOrdered B y: Santino Marie on 05-29-2024 Basophils/100 WBC (Bld) 0.6 % 0-1 [facility] Bilirubin, totalOrdered By: Santino Marie on 05-29-2024 Bilirubin [Mass/Vol] 2.38 mg/dL High 0.00-1.30 [facility] CBC W/Diff, Automatedon 05-13 Absolute Lymph 1.09 X10 3/uL Normal 0.83-4.51 [facility] Comment on above: Performed By: #### L 300.3900, L101.9900, L300.4310, L500.4050, L501.6710, L3300.0700, L100.0100 ####[facility] [address] [place], [address] Absolute Neut 3.0 X10 3/uL Normal 2.0-7.7 [facility] Comment on above: Performed By: #### L 300.3900, L101.9900, L300.4310, L500.4050, L501.6710, L3300.0700, L100.0100 ####[facility] [address] [place], [address] Basophils/100 WBC (Bld) 0.6 % Normal 0-1 [facility] Comment on above: Performed By: #### L 300.3900, L101.9900, L300.4310, L500.4050, L501.6710, L3300.0700, L100.0100 ####[facility] [address] [place], [address] Eosinophils/100 WBC (Bld) 3.9 % Normal 0-5 [facility] Comment on above: Performed By: #### L 300.3900, L101.9900, L300.4310, L500.4050, L501.6710, L3300.0700, L100.0100 ####[facility] [address] [place], [address] Erythrocyte distribution width (RBC) [Ratio] 15.2 % High 11.6-14.6 [facility] Comment on above: Performed By: #### L 300.3900, L101.9900, L300.4310, L500.4050, L501.6710, L3300.0700, L100.0100 ####[facility] [address] [place], [address] Hematocrit (Bld) [Volume fraction] 38.8 % Normal 37-47 [facility] Comment on above: Performed By: #### L 300.3900, L101.9900, L300.4310, L500.4050, L501.6710, L3300.0700, L100.0100 ####[facility] [address] [place], [address] Hemoglobin (Bld) [Mass/Vol] 12.9 g/dL Normal 12.0-15.0 [facility] Comment on above: Performed By: #### L 300.3900, L101.9900, L300.4310, L500.4050, L501.6710, L3300.0700, L100.0100 ####[facility] [address] [place], [address] IG% 0.200 Normal 0.0-0.9 [facility] Comment on above: Result Comment: IG% - Immature Granulocytes (promyelocytes, myelocytes and metamyelocytes) > 1% indicates that a LEFT SHIFT is Present. Performed By: #### L 300.3900, L101.9900, L300.4310, L500.4050, L501.6710, L3300.0700, L100.0100 ####[facility] [address] [place], [address] Lymphocytes/100 WBC (Bld) 22.2 % Normal 19-41 [facility] Comment on above: Performed By: #### L 300.3900, L101.9900, L300.4310, L500.4050, L501.6710, L3300.0700, L100.0100 ####[facility] [address] [place], [address] MCH (RBC) [Entitic mass] 31.3 pg Normal 27.0-32.0 [facility] Comment on above: Performed By: #### L 300.3900, L101.9900, L300.4310, L500.4050, L501.6710, L3300.0700, L100.0100 ####[facility] [address] [place], [address] MCHC (RBC) [Mass/Vol] 33.2 g/dL Normal 32-36 [facility] Comment on above: Performed By: #### L 300.3900, L101.9900, L300.4310, L500.4050, L501.6710, L3300.0700, L100.0100 ####[facility] [address] [place], [address] MCV (RBC) [Entitic vol] 94.2 fL Normal 81-99 [facility] Comment on above: Performed By: #### L 300.3900, L101.9900, L300.4310, L500.4050, L501.6710, L3300.0700, L100.0100 ####[facility] [address] [place], [address] Monocytes/100 WBC (Bld) 11.8 % High 0-10 [facility] Comment on above: Performed By: #### L 300.3900, L101.9900, L300.4310, L500.4050, L501.6710, L3300.0700, L100.0100 ####[facility] [address] [place], [address] Neutrophils/100 WBC (Bld) 61.3 % Normal 47-70 [facility] Comment on above: Performed By: #### L 300.3900, L101.9900, L300.4310, L500.4050, L501.6710, L3300.0700, L100.0100 ####[facility] [address] [place], [address] Nucleated RBC (Bld) [#/Vol] 0 10*3/uL Normal 0-5 [facility] Comment on above: Performed By: #### L 300.3900, L101.9900, L300.4310, L500.4050, L501.6710, L3300.0700, L100.0100 ####[facility] [address] [place], [address] Platelet mean volume (Bld) [Entitic vol] 12.8 fL High 6.2-12.0 [facility] Comment on above: Performed By: #### L 300.3900, L101.9900, L300.4310, L500.4050, L501.6710, L3300.0700, L100.0100 ####[facility] [address] [place], [address] Platelets (Bld) [#/Vol] 64 10*3/uL Low 150-450 [facility] Comment on above: Performed By: #### L 300.3900, L101.9900, L300.4310, L500.4050, L501.6710, L3300.0700, L100.0100 ####[facility] [address] [place], [address] RBC (Bld) [#/Vol] 4.12 10*6/uL Low 4.2-5.4 [facility] Comment on above: Performed By: #### L 300.3900, L101.9900, L300.4310, L500.4050, L501.6710, L3300.0700, L100.0100 ####[facility] [address] [place], [address] RDW SD 53.0 fl High 35.1-43.9 [facility] Comment on above: Performed By: #### L 300.3900, L101.9900, L300.4310, L500.4050, L501.6710, L3300.0700, L100.0100 ####[facility] [address] [place], [address] WBC (Bld) [#/Vol] 4.9 10*3/uL Normal 4.4-11.0 [facility] Comment on above: Performed By: #### L 300.3900, L101.9900, L300.4310, L500.4050, L501.6710, L3300.0700, L100.0100 ####[facility] [address] [place], [address] CRPon 05-29-2024 C-REACTIVE PROT 7.71 mg/L High 0.0-3.0 [facility] Comment on above: Performed By: #### L 300.3900, L101.9900, L300.4310, L500.4050, L501.6710, L3300.0700, L100.0100 ####[facility] [address] [facility] [place], [address] CRP [Mass/Vol]Ordered By: Ra mary Marie on 05-29-2024 C-Reactive Protein Extended Range 7.71 mg/L High 0.0-3.0 [facility] Carbon dioxide, total [Moles /volume] in Central venous bloodOrdered By: Santino Marie on 05-29-2024 CO2 [Moles/Vol] 24.2 mmol/L 21.0-32.0 [facility] Chloride assayOrdered By: Ra mary Marie on 05-29-2024 Chloride [Moles/Vol] 102 mmol/L 98-108 [facility] Metabolic Prof ilon 05-29-2024 Albumin [Mass/Vol] 3.8 g/dL Normal 3.4-4.8 [facility] Comment on above: Performed By: #### L 300.3900, L101.9900, L300.4310, L500.4050, L501.6710, L3300.0700, L100.0100 ####[facility] [address] [place], [address] Albumin/Globulin [Mass ratio] 1.0 {ratio} Normal 0.9-2.4 [facility] Comment on above: Performed By: #### L 300.3900, L101.9900, L300.4310, L500.4050, L501.6710, L3300.0700, L100.0100 ####[facility] [address] [place], [address] ALK PHOS 233 U/L High 35-104 [facility] Comment on above: Performed By: #### L 300.3900, L101.9900, L300.4310, L500.4050, L501.6710, L3300.0700, L100.0100 ####[facility] [address] [place], [address] ALT [Catalytic activity/Vol] 43 U/L High <=34 [facility] Comment on above: Performed By: #### L 300.3900, L101.9900, L300.4310, L500.4050, L501.6710, L3300.0700, L100.0100 ####[facility] [address] [place], [address] AST [Catalytic activity/Vol] 90 U/L High <=31 [facility] Comment on above: Performed By: #### L 300.3900, L101.9900, L300.4310, L500.4050, L501.6710, L3300.0700, L100.0100 ####[facility] [address] [place], [address] Bilirubin [Mass/Vol] 2.38 mg/dL High 0.00-1.30 [facility] Comment on above: Performed By: #### L 300.3900, L101.9900, L300.4310, L500.4050, L501.6710, L3300.0700, L100.0100 ####[facility] [address] [place], [address] BUN/CRE 13.0 RATIO Normal 10-20 [facility] Comment on above: Performed By: #### L 300.3900, L101.9900, L300.4310, L500.4050, L501.6710, L3300.0700, L100.0100 ####[facility] [address] [place], [address] Calcium [Mass/Vol] 9.0 mg/dL Normal 7.6-11.0 [facility] Comment on above: Performed By: #### L 300.3900, L101.9900, L300.4310, L500.4050, L501.6710, L3300.0700, L100.0100 ####[facility] [address] [place], [address] Chloride [Moles/Vol] 102 mmol/L Normal 98-108 [facility] Comment on above: Performed By: #### L 300.3900, L101.9900, L300.4310, L500.4050, L501.6710, L3300.0700, L100.0100 ####[facility] [address] [place], [address] CO2 [Moles/Vol] 24.2 mmol/L Normal 21.0-32.0 [facility] Comment on above: Performed By: #### L 300.3900, L101.9900, L300.4310, L500.4050, L501.6710, L3300.0700, L100.0100 ####[facility] [address] [place], [address] Creatinine [Mass/Vol] 0.77 mg/dL Normal 0.70-1.20 [facility] Comment on above: Performed By: #### L 300.3900, L101.9900, L300.4310, L500.4050, L501.6710, L3300.0700, L100.0100 ####[facility] [address] [place], [address] GAP 12 Normal 5-15 [facility] Comment on above: Performed By: #### L 300.3900, L101.9900, L300.4310, L500.4050, L501.6710, L3300.0700, L100.0100 ####[facility] [address] [place], [address] GFR/1.73 sq M.predicted among non-blacks MDRD (S/P/Bld) [Vol rate/Area] 85 mL/min/{1.73_m2} Normal >60 [facility] Comment on above: Result Comment: mL/m in/1.73m2 CKD-EPI Creatinine Equation (2020) Performed By: #### L 300.3900, L101.9900, L300.4310, L500.4050, L501.6710, L3300.0700, L100.0100 ####[facility] [address] [place], [address] Globulin (S) [Mass/Vol] 3.6 g/dL Normal 2.2-4.2 [facility] Comment on above: Performed By: #### L 300.3900, L101.9900, L300.4310, L500.4050, L501.6710, L3300.0700, L100.0100 ####[facility] [address] [place], [address] Glucose [Mass/Vol] 108 mg/dL High 70-99 [facility] Comment on above: Performed By: #### L 300.3900, L101.9900, L300.4310, L500.4050, L501.6710, L3300.0700, L100.0100 ####[facility] [address] [place], [address] Potassium [Moles/Vol] 3.7 mmol/L Normal 3.3-5.1 [facility] Comment on above: Performed By: #### L 300.3900, L101.9900, L300.4310, L500.4050, L501.6710, L3300.0700, L100.0100 ####[facility] [address] [place], [address] Sodium [Moles/Vol] 138 mmol/L Normal 133-145 [facility] Comment on above: Performed By: #### L 300.3900, L101.9900, L300.4310, L500.4050, L501.6710, L3300.0700, L100.0100 ####[facility] [address] [place], [address] T PROT 7.4 g/dL Normal 5.9-8.4 [facility] Comment on above: Performed By: #### L 300.3900, L101.9900, L300.4310, L500.4050, L501.6710, L3300.0700, L100.0100 ####[facility] [address] [place], [address] Urea nitrogen [Mass/Vol] 10 mg/dL Normal 4-19 [facility] Comment on above: Performed By: #### L 300.3900, L101.9900, L300.4310, L500.4050, L501.6710, L3300.0700, L100.0100 ####[facility] [address] [place], [address] Eosinophil percentageOrdered By: Santino Marie on 05-29-2024 Eosinophils/100 WBC (Bld) 3.9 % 0-5 [facility] Erythrocyte Sed Rateon 05-29 SED RATE 14 mm/hr Normal 0-30 [facility] Comment on above: Performed By: #### L 300.3900, L101.9900, L300.4310, L500.4050, L501.6710, L3300.0700, L100.0100 ####[facility] [address] [place], [address] Erythrocyte distribution wid th ratioOrdered By: Santino Marie on 05-29-2024 Erythrocyte distribution width (RBC) [Ratio] 15.2 % High 11.6-14.6 [facility] Erythrocyte distribution wid th standard deviationOrdered By: Santino Marie on 05-29-2024 Erythrocyte distribution width (RBC) [Entitic vol] 53.0 fL High 35.1-43.9 [facility] Erythrocyte distribution width (RBC) [Ratio] 53.0 fl High 35.1-43.9 [facility] Erythrocyte sedimentation ra teOrdered By: Santino Marie on 05-29-2024 ESR (Bld) [Velocity] 14 mm/h 0-30 [facility] GFR/1.73 sq M.predicted gato g non-blacks MDRD (S/P/Bld) [Vol rate/Area]Ordered By: Santino Marie on 05-29-2024 Estimated GFR (MDRD) Non-Af Amer 85 >60 [facility] Comment on above: mL/min/1.73m2 CKD-EP I Creatinine Equation (2020) Gastroenterology Visit Repor ton 05-29-2024 Gastroenterology Visit Report [facility] [address] [place] [address] OFFICE VISIT Date of Service: 05/29/24 MR#: [id number] Acct: [id number] Name: MACY MORALES Rep #: [id number] : 1955 Provider: Santino Marie DO Age/Sex: 68/F Location: BMS.[facility]I Status: Signed Intake Vital Signs 09/27/23 09:20 05/29/24 12:36 Height 5 ft 5 ft Weight: 192 lb 6 oz BMI 37.5 Intake Visit Reasons: 6 M FU Allergies No Known Allergies Allergy (Verified 09/27/23 09:23) Medications ???Medication ???Instructions ???Recorded ???Confirmed ???Type alendronate 70 mg tablet 70 mg PO QWEEK 07/06/23 05/29/24 H istory atorvastatin 20 mg tablet 20 mg PO DAILY 07/06/23 05/29/24 H istory amlodipine 5 mg tablet (Norvasc) 5 mg PO DAILY #30 tabs 07/09/23 Rx neomycin 500 mg tablet 500 mg PO BID #60 tabs 07/22/23 Rx albuterol sulfate 90 mcg/actuation 1 - 2 puff inhalation Q4H PRN OH N 08/27/23 05/29/24 Rx aerosol inhaler (Ventolin HFA) Wheezing/SOB #1 device lactulose 10 gram/15 mL oral 10 g (15 mL) PO DAILY #473 mL 11/1305/29/24 Rx solution metoclopramide HCl 5 mg tablet 5 mg PO TID #90 tabs 11/25/2305/13 Rx (Reglan) pantoprazole 40 mg tablet,delayed 40 mg PO DAILY #30 tabs 11/25/23 05/29/24 Rx release (Protonix) rifaximin 550 mg tablet (Xifaxan) 550 mg PO BID #60 tabs 11/25/23 0 05/29/24 Rx Have you fallen in the past year?: No PFSH Medical History (Updated 09/27/23 @ 10:04 by Teja Dick MD) Fracture of right distal radius Right wrist pain Adverse drug reaction Hyperbilirubinemia Nausea vomiting and diarrhea Acute renal failure Acute kidney injury Thrombocytopenia Facial droop History of hypertension HTN (hypertension) Diabetes Family History Other CVA (cerebral vascular accident) Hypertension Social History (Updated 09/27/23 @ 09:25 by Sofi Johnson MA) household members: spouse, children and other details: 2 grandchildren Smoking Status: Never smoker alcohol intake: never HPI HPI Details: MACY MORALES, is a 68 F who presents to the office today for follow up. OV 5.7.24 pt is accompanied by daughter to help translate. Pt reports that she has not had any episodes of bloody emesis since hospitalization. Pt reports that as long as she takes Pantoprazole she does not have HB. Pt states that she has abdominal pain anytime she eats, but that she cannot tolerate eggs, chicken, or fish. Pt reports that she is having 2-3 soft bowel movements per day. Pt also reports that she keeps getting headaches and is unsure what would be best to take to help her. OV 9.12.24 pt reports that she is feeling well overall and denies GI symptoms of concern at this time. pt denies trouble sleeping, swelling, confusion, brain fog, dizziness, and diarrhea or constip ation. Pt continues with lactulose and xifaxan. OV 3.17.25 pt reports that she is feeling well overall, notes occasional gas and bloating after eating. Pt reports that after taking her pills she will sometimes feel dizzy. pt denies trouble sleeping, swelling, confusion, brain fog, and diarrhea or constipation. ROS Const Constitutional: No fatigue, fever(s) or weight change ENT ENT: No difficulty swallowing Gastro GI: Positive for bloating and excessive flatus; No abdominal pain, belching, change in bowel habits, change in stool character, coffee ground emesis, constipation, cramping, diarrhea, heartburn, difficulty swallowing, feeling full early, incontinent of stools, Vomiting blood/hematemesis, Blood in stool, loose stools, Black,tarry stools, nausea/dyspepsia, pain with swallowing, vomiting or other Musc Musculoskeletal: Positive for back pain; No joint pain Skin Skin: Positive for rash; No yellowing of the eye or itchy eyes Psych Psychiatric: No anxiety and No depression Endo Endocrine: No fatigue or weight change Aller/Imm Allergy/Immunologic: No itchy eyes Josiah/Lymp Hematologic/Lymphatic: No easy bleeding or easy bruising Exam Const General: cooperative and comfortable Nutritional Appearance: average body habitus and well nourished HENMT Head: normal to inspection Ears: hearing grossly normal bilaterally Nose: external nose normal Face and sinus: normal facial exam Mouth: oral mucosae normal Throat: posterior oropharynx normal Eyes General: appearance normal, both eyes and all related structures Neck Neck: normal visual inspection Chest Chest palpation inspection: normal inspection of the chest and normal palpation of entire chest wall Resp Effort Inspection: normal respiratory effort Auscultation: Bilateral: Clear to Auscultation Cardio Palpation: normal PMI Rate: regular rate Rhythm: regular rhythm GI (more content not included)... Normal [facility] Glomerular filtration rate ( GFR) estimation/1.73 sq m using serum, plasma, or whole bOrdered By: Santino Marie on 05-29-2024 GFR/1.73 sq M.predicted among non-blacks MDRD (S/P/Bld) [Vol rate/Area] 85 mL/min/{1.73_m2} >60 [facility] Comment on above: mL/min/1.73m2 CKD-EP I Creatinine Equation (2020) Hematocrit Auto (Bld) [Volum e fraction]Ordered By: Santino Marie on 05-29-2024 Hematocrit (Bld) [Volume fraction] 38.8 % 37-47 [facility] Hemoglobin measurementOrdere d By: Santino Marie on 05-29-2024 Hemoglobin (Bld) [Mass/Vol] 12.9 g/dL 12.0-15.0 [facility] Immature granulocytes/100 WB C Auto (Bld)Ordered By: Santino Marie on 05-29-2024 Immature granulocytes/100 WBC (Bld) 0.200 % 0.0-0.9 [facility] Comment on above: IG% - Immature Granu locytes (promyelocytes, myelocytes and metamyelocytes) > 1% indicates that a LEFT SHIFT is Present. International normalized rat io (INR) calculationOrdered By: Santino Marie on 05-29-2024 INR Coag (Bld) [Relative time] 1.1 {INR} [facility] Laboratory - Chemistry and C hemistry - challengeOrdered By: Santino Marie on 05-29-2024 AST [Catalytic activity/Vol] 90 U/L High <32 [facility] Lymphocytes Auto (Unsp spec) [#/Vol]Ordered By: Santino Marie on 05-29-2024 Lymphocytes (Bld) [#/Vol] 1.09 10*3/uL 0.83-4.5 1 [facility] Lymphocytes/100 WBC Auto (Un sp spec)Ordered By: Santino Marie on 05-29-2024 Lymphocytes/100 WBC (Bld) 22.2 % 19-41 [facility] MCV (mean corpuscular volume ) determinationOrdered By: Santino Marie on 05-29-2024 MCV (RBC) [Entitic vol] 94.2 fL 81-99 [facility] Mean corpuscular hemoglobin (MCH) determinationOrdered By: Santino Marie on 05-29-2024 MCH (RBC) [Entitic mass] 31.3 pg 27.0-32.0 [facility] Mean corpuscular hemoglobin concentration (MCHC) determinationOrdered By: Santino Marie on 05-29-2024 MCHC (RBC) [Mass/Vol] 33.2 g/dL 32-36 [facility] Mean platelet volume determi nationOrdered By: Santino Marie on 05-29-2024 Platelet mean volume (Bld) [Entitic vol] 12.8 fL High 6.2-12.0 [facility] Monocyte percentageOrdered B y: Santino Marie on 05-29-2024 Monocytes/100 WBC (Bld) 11.8 % High 0-10 [facility] Neutrophil percentageOrdered By: Santino Marie on 05-29-2024 Neutrophils/100 WBC (Bld) 61.3 % 47-70 [facility] Nucleated red blood cell per centageOrdered By: Santino Marie on 05-29-2024 Nucleated RBC/100 WBC (Bld) [Ratio] 0 % 0-5 [facility] Partial Thromboplast Timeon 05-29-2024 aPTT Coag (Bld) [Time] 33.3 s Normal 24.1-36.2 [facility] Comment on above: Performed By: #### L 300.3900, L101.9900, L300.4310, L500.4050, L501.6710, L3300.0700, L100.0100 ####[facility] [address] [place], [address] Platelet countOrdered By: Ra mary Marie on 05-29-2024 Platelets (Bld) [#/Vol] 64 10*3/uL Low 150-450 [facility] Potassium (Unsp spec) [Mass/ Vol]Ordered By: Santino Marie on 05-29-2024 Potassium [Moles/Vol] 3.7 mmol/L 3.3-5.1 [facility] Potassium measurement (mass/ volume)Ordered By: Santino Marie on 05-29-2024 Potassium (Unsp spec) [Mass/Vol] 3.7 mmol/L 3.3-5.1 [facility] Prothrombin Time w/INRon INR Coag (PPP) [Relative time] 1.1 {INR} Normal [facility] Comment on above: Performed By: #### L 300.3900, L101.9900, L300.4310, L500.4050, L501.6710, L3300.0700, L100.0100 ####[facility] [address] [place], [address] PT Coag (PPP) [Time] 14.9 s Normal 11.7-14.9 [facility] Comment on above: Performed By: #### L 300.3900, L101.9900, L300.4310, L500.4050, L501.6710, L3300.0700, L100.0100 ####[facility] [address] [place], [place], [address] Prothrombin timeOrdered By: Santino Marie on 05-29-2024 PT Coag (PPP) [Time] 14.9 s 11.7-14.9 [facility] RBC Auto (Bld) [#/Vol]Ordere d By: Santino Marie on 05-29-2024 RBC (Bld) [#/Vol] 4.12 10*6/uL Low 4.2-5.4 [facility] Serum creatinine measurement (mass/volume)Ordered By: Santino Marie on 05-29-2024 Creatinine [Mass/Vol] 0.77 mg/dL 0.70-1.20 [facility] Serum globulin measurementOr dered By: Santino Marie on 05-29-2024 Globulin (S) [Mass/Vol] 3.6 g/dL 2.2-4.2 [facility] Serum glucose measurement (m ass/volume)Ordered By: Santino Marie on 05-29-2024 Glucose [Mass/Vol] 108 mg/dL High 70-99 [facility] Serum or plasma C reactive p rotein measurement (mass/volume)Ordered By: Santino Marie on 05-29-2024 CRP [Mass/Vol] 7.71 mg/L High 0.0-3.0 [facility] Serum or plasma alanine adames otransferase (ALT) measurementOrdered By: Santino Marie on 05-29-2024 ALT [Catalytic activity/Vol] 43 U/L High <35 [facility] Serum or plasma albumin cheri urement (mass/volume)Ordered By: Santino Marie on 05-29-2024 Albumin [Mass/Vol] 3.8 g/dL 3.4-4.8 [facility] Serum or plasma albumin/glob ulin mass ratioOrdered By: Santino Marie on 05-29-2024 Albumin/Globulin [Mass ratio] 1.0 {ratio} 0.9-2.4 [facility] Serum or plasma alkaline iban sphatase measurementOrdered By: Santino Marie on 05-29-2024 ALP [Catalytic activity/Vol] 233 U/L High 35-104 [facility] Serum or plasma calcium cheri urement (mass/volume)Ordered By: Santino Marie on 05-29-2024 Calcium [Mass/Vol] 9.0 mg/dL 7.6-11.0 [facility] Serum or plasma urea nitroge n measurement (mass/volume)Ordered By: Santino Marie on 05-29-2024 Urea nitrogen [Mass/Vol] 10 mg/dL 4-19 [facility] Sodium levelOrdered By: Gavin Plunkett on 05-29-2024 Sodium [Moles/Vol] 138 mmol/L 133-145 [facility] Total proteinOrdered By: Alexandr Marie on 03-17-2025 Protein [Mass/Vol] 7.4 g/dL 5.9-8.4 [facility] White blood cell (WBC) count Ordered By: Santino Marie on 05-29-2024 WBC (Bld) [#/Vol] 4.9 10*3/uL 4.4-11.0 [facility] aPTT Coag (PPP) [Time]Ordere d By: Santino Marie on 05-29-2024 aPTT Coag (Bld) [Time] 33.3 s 24.1-36.2 [facility] Absolute neutrophil countOrd ered By: Angelita Call on 04-03-2024 Neutrophils (Bld) [#/Vol] 2.1 10*3/uL 2.0-7.7 [facility] Albumin to globulin ratioOrd ered By: Angelita Call on 04-03-2024 Albumin/Globulin [Mass ratio] 0.7 {ratio} Low 0.9-2.4 [facility] Basophil percentageOrdered B y: Angelita Call on 04-03-2024 Basophils/100 WBC (Bld) 0.7 % 0-1 [facility] Bilirubin, totalOrdered By: Angelita Call on 04-03-2024 Bilirubin [Mass/Vol] 1.40 mg/dL High 0.20-1.00 [facility] Comment on above: For patients on eltr ombopag therapy, use of Dimension [place] TBIL is not recommended. Blood urea nitrogen (BUN)/cr eatinine ratioOrdered By: Angelita Call on 04-03-2024 Urea nitrogen/Creatinine [Mass ratio] 13.7 mg/mg 01-01 [facility] CBC W/Diff, Automatedon 03-16 Absolute Lymph 1.25 X10 3/uL Normal 0.83-4.51 [facility] Comment on above: Order Comment: DR. Wanda ANN ORDERED CBC Performed By: #### L 502.0250, L501.9985, L100.0100, L500.4050 ####[facility] [address] [place], [address] Absolute Neut 2.1 X10 3/uL Normal 2.0-7.7 [facility] Comment on above: Order Comment: DR. Wanda ANN ORDERED CBC Performed By: #### L 502.0250, L501.9985, L100.0100, L500.4050 ####[facility] [address] [place], [address] Basophils/100 WBC (Bld) 0.7 % Normal 0-1 [facility] Comment on above: Order Comment: DR. Wanda ANN ORDERED CBC Performed By: #### L 502.0250, L501.9985, L100.0100, L500.4050 ####[facility] [address] [place], [address] Eosinophils/100 WBC (Bld) 6.6 % High 0-5 [facility] Comment on above: Order Comment: DR. Wanda ANN ORDERED CBC Performed By: #### L 502.0250, L501.9985, L100.0100, L500.4050 ####[facility] [address] [place], [address] Erythrocyte distribution width (RBC) [Ratio] 15.5 % High 11.6-14.6 [facility] Comment on above: Order Comment: DR. Wanda ANN ORDERED CBC Performed By: #### L 502.0250, L501.9985, L100.0100, L500.4050 ####[facility] [address] [place], [address] Hematocrit (Bld) [Volume fraction] 37.6 % Normal 37-47 [facility] Comment on above: Order Comment: DR. Wanda ANN ORDERED CBC Performed By: #### L 502.0250, L501.9985, L100.0100, L500.4050 ####[facility] [address] [place], [address] Hemoglobin (Bld) [Mass/Vol] 12.3 g/dL Normal 12.0-15.0 [facility] Comment on above: Order Comment: DR. Wanda ANN ORDERED CBC Performed By: #### L 502.0250, L501.9985, L100.0100, L500.4050 ####[facility] [address] [place], [address] IG% 0.000 Normal 0.0-0.9 [facility] Comment on above: Order Comment: DR. Wanda ANN ORDERED CBC Result Comment: IG% - Immature Granulocytes (promyelocytes, myelocytes and metamyelocytes) > 1% indicates that a LEFT SHIFT is Present. Performed By: #### L 502.0250, L501.9985, L100.0100, L500.4050 ####[facility] [address] [place], [address] Lymphocytes/100 WBC (Bld) 28.5 % Normal 19-41 [facility] Comment on above: Order Comment: DR. Wanda ANN ORDERED CBC Performed By: #### L 502.0250, L501.9985, L100.0100, L500.4050 ####[facility] [address] [place], [address] MCH (RBC) [Entitic mass] 30.5 pg Normal 27.0-32.0 [facility] Comment on above: Order Comment: DR. Wanda ANN ORDERED CBC Performed By: #### L 502.0250, L501.9985, L100.0100, L500.4050 ####[facility] [address] [place], [address] MCHC (RBC) [Mass/Vol] 32.7 g/dL Normal 32-36 [facility] Comment on above: Order Comment: DR. Wanda ANN ORDERED CBC Performed By: #### L 502.0250, L501.9985, L100.0100, L500.4050 ####[facility] [address] [place], [address] MCV (RBC) [Entitic vol] 93.3 fL Normal 81-99 [facility] Comment on above: Order Comment: DR. Wanda ANN ORDERED CBC Performed By: #### L 502.0250, L501.9985, L100.0100, L500.4050 ####[facility] [address] [place], [address] Monocytes/100 WBC (Bld) 15.5 % High 0-10 [facility] Comment on above: Order Comment: DR. Wanda ANN ORDERED CBC Performed By: #### L 502.0250, L501.9985, L100.0100, L500.4050 ####[facility] [address] [place], [address] Neutrophils/100 WBC (Bld) 48.7 % Normal 47-70 [facility] Comment on above: Order Comment: DR. Wanda NAN ORDERED CBC Performed By: #### L 502.0250, L501.9985, L100.0100, L500.4050 ####[facility] [address] [place], [address] Nucleated RBC (Bld) [#/Vol] 0 10*3/uL Normal 0-5 [facility] Comment on above: Order Comment: DR. Wanda ANN ORDERED CBC Performed By: #### L 502.0250, L501.9985, L100.0100, L500.4050 ####[facility] [address] [place], [address] Platelet mean volume (Bld) [Entitic vol] 13.8 fL High 6.2-12.0 [facility] Comment on above: Order Comment: DR. Wanda ANN ORDERED CBC Performed By: #### L 502.0250, L501.9985, L100.0100, L500.4050 ####[facility] [address] [place], [address] Platelets (Bld) [#/Vol] 54 10*3/uL Low 150-450 [facility] Comment on above: Order Comment: DR. Wanda ANN ORDERED CBC Performed By: #### L 502.0250, L501.9985, L100.0100, L500.4050 ####[facility] [address] [place], [address] RBC (Bld) [#/Vol] 4.03 10*6/uL Low 4.2-5.4 [facility] Comment on above: Order Comment: DR. Wanda ANN ORDERED CBC Performed By: #### L 502.0250, L501.9985, L100.0100, L500.4050 ####[facility] [address] [place], [address] RDW SD 53.5 fl High 35.1-43.9 [facility] Comment on above: Order Comment: DR. Wanda ANN ORDERED CBC Performed By: #### L 502.0250, L501.9985, L100.0100, L500.4050 ####[facility] [address] [place], [address] WBC (Bld) [#/Vol] 4.4 10*3/uL Normal 4.4-11.0 [facility] Comment on above: Order Comment: DR. Wanda ANN ORDERED CBC Performed By: #### L 502.0250, L501.9985, L100.0100, L500.4050 ####[facility] [address] [place], [address] Carbon dioxide measurementOr dered By: Angelita Call on 04-03-2024 CO2 [Moles/Vol] 26.0 mmol/L 21.0-32.0 [facility] Chloride measurementOrdered By: Angelita Call on 04-03-2024 Chloride [Moles/Vol] 106 mmol/L 98-107 [facility] Prof ilon 04-03-2024 Albumin [Mass/Vol] 3.0 g/dL Low 3.2-5.0 [facility] Comment on above: Order Comment: DR. Wanda ANN ORDERED CBC Performed By: #### L 502.0250, L501.9985, L100.0100, L500.4050 ####[facility] [address] [place], [address] Albumin/Globulin [Mass ratio] 0.7 {ratio} Low 0.9-2.4 [facility] Comment on above: Order Comment: DR. Wanda ANN ORDERED CBC Performed By: #### L 502.0250, L501.9985, L100.0100, L500.4050 ####[facility] [address] [place], [address] ALK P 279 U/L High 45-117 [facility] Comment on above: Order Comment: DR. Wanda ANN ORDERED CBC Performed By: #### L 502.0250, L501.9985, L100.0100, L500.4050 ####[facility] [address] [place], [address] ALT [Catalytic activity/Vol] 46 U/L Normal 13-56 [facility] Comment on above: Order Comment: DR. Wanda ANN ORDERED CBC Performed By: #### L 502.0250, L501.9985, L100.0100, L500.4050 ####[facility] [address] [place], [address] AST [Catalytic activity/Vol] 76 U/L High 15-37 [facility] Comment on above: Order Comment: DR. Wanda ANN ORDERED CBC Performed By: #### L 502.0250, L501.9985, L100.0100, L500.4050 ####[facility] [address] [place], [address] Bilirubin [Mass/Vol] 1.40 mg/dL High 0.20-1.00 [facility] Comment on above: Order Comment: DR. Wanda ANN ORDERED CBC Result Comment: For patients on eltrombopag therapy, use of Dimension [place] TBIL is not recommended. Performed By: #### L 502.0250, L501.9985, L100.0100, L500.4050 ####[facility] [address] [place], [address] BUN/CRE 13.7 RATIO Normal 10-20 [facility] Comment on above: Order Comment: DR. Wanda ANN ORDERED CBC Performed By: #### L 502.0250, L501.9985, L100.0100, L500.4050 ####[facility] [address] [place], [address] CA,Total 9.1 mg/dL Normal 8.5-10.1 [facility] Comment on above: Order Comment: DR. Wanda ANN ORDERED CBC Performed By: #### L 502.0250, L501.9985, L100.0100, L500.4050 ####[facility] [address] [place], [address] Chloride [Moles/Vol] 106 mmol/L Normal 98-107 [facility] Comment on above: Order Comment: DR. Wanda ANN ORDERED CBC Performed By: #### L 502.0250, L501.9985, L100.0100, L500.4050 ####[facility] [address] [place], [address] CO2 [Moles/Vol] 26.0 mmol/L Normal 21.0-32.0 [facility] Comment on above: Order Comment: DR. Wanda ANN ORDERED CBC Performed By: #### L 502.0250, L501.9985, L100.0100, L500.4050 ####[facility] [address] [place], [address] Creatinine [Mass/Vol] 0.80 mg/dL Normal 0.55-1.02 [facility] Comment on above: Order Comment: DR. Wanda ANN ORDERED CBC Result Comment: The validity of the calculated GFR GFRAA in patients over 70 years has not been determined. Clinical correlation is essential. Performed By: #### L 502.0250, L501.9985, L100.0100, L500.4050 ####[facility] [address] [place], [address] EST GFR - AA 92 mL/min Normal >60 [facility] Comment on above: Order Comment: DR. Wanda ANN ORDERED CBC Result Comment: Afri can English GFR Calc Performed By: #### L 502.0250, L501.9985, L100.0100, L500.4050 ####[facility] [address] [place], [address] GAP 4 Low 5-15 [facility] Comment on above: Order Comment: DR. Wanda ANN ORDERED CBC Performed By: #### L 502.0250, L501.9985, L100.0100, L500.4050 ####[facility] [address] [place], [address] GFR/1.73 sq M.predicted among non-blacks MDRD (S/P/Bld) [Vol rate/Area] 76 mL/min/{1.73_m2} Normal >60 [facility] Comment on above: Order Comment: DR. Wanda ANN ORDERED CBC Result Comment: Non- GFR Calc Performed By: #### L 502.0250, L501.9985, L100.0100, L500.4050 ####[facility] [address] [place], [address] Globulin (S) [Mass/Vol] 4.4 g/dL High 2.2-4.2 [facility] Comment on above: Order Comment: DR. Wanda ANN ORDERED CBC Performed By: #### L 502.0250, L501.9985, L100.0100, L500.4050 ####[facility] [address] [place], [address] Glucose [Mass/Vol] 116 mg/dL High 74-106 [facility] Comment on above: Order Comment: DR. Wanda ANN ORDERED CBC Result Comment: Fast ing Glucose result from 100 to 125 mg/dL suggests IMPAIRED HOMEOSTASIS per A.D.A. criteria. Performed By: #### L 502.0250, L501.9985, L100.0100, L500.4050 ####[facility] [address] [place], [address] Potassium [Moles/Vol] 4.1 mmol/L Normal 3.5-5.1 [facility] Comment on above: Order Comment: DR. Wanda ANN ORDERED CBC Performed By: #### L 502.0250, L501.9985, L100.0100, L500.4050 ####[facility] [address] [place], [address] Sodium [Moles/Vol] 136 mmol/L Normal 136-145 [facility] Comment on above: Order Comment: DR. Wanda ANN ORDERED CBC Performed By: #### L 502.0250, L501.9985, L100.0100, L500.4050 ####[facility] [address] [place], [address] T PROT 7.4 g/dL Normal 6.4-8.2 [facility] Comment on above: Order Comment: DR. Wanda ANN ORDERED CBC Performed By: #### L 502.0250, L501.9985, L100.0100, L500.4050 ####[facility] [address] [place], [address] Urea nitrogen [Mass/Vol] 11 mg/dL Normal 7-18 [facility] Comment on above: Order Comment: DR. Wanda ANN ORDERED CBC Performed By: #### L 502.0250, L501.9985, L100.0100, L500.4050 ####[facility] [address] [place], [address] Eosinophil percentageOrdered By: Angelita Call on 04-03-2024 Eosinophils/100 WBC (Bld) 6.6 % High 0-5 [facility] Erythrocyte distribution wid th ratioOrdered By: Angelita Call on 04-03-2024 Erythrocyte distribution width (RBC) [Ratio] 15.5 % High 11.6-14.6 [facility] Erythrocyte distribution wid th standard deviationOrdered By: Angelita Call on 04-03-2024 Erythrocyte distribution width (RBC) [Entitic vol] 53.5 fL High 35.1-43.9 [facility] Estimated glomerular filtrat ion rate (GFR) AmericanOrdered By: Angelita Call on 04-03-2024 Estimated GFR (MDRD) Amer 92 mL/min >60 [facility] Comment on above: GFR Calc Glomerular filtration rate ( GFR) estimationOrdered By: Angelita Call on 04-03-2024 Estimated GFR (MDRD) Non-Af Amer 76 mL/min >60 [facility] Comment on above: Non- GFR Calc Glucose measurementOrdered B y: Angelita Call on 04-03-2024 Glucose [Mass/Vol] 116 mg/dL High 74-106 [facility] Comment on above: Fasting Glucose resu lt from 100 to 125 mg/dL suggests IMPAIRED HOMEOSTASIS per A.D.A. criteria. Hematocrit Auto (Bld) [Volum e fraction]Ordered By: Angelita Call on 04-03-2024 Hematocrit (Bld) [Volume fraction] 37.6 % 37-47 [facility] Hemoglobin A1con 04-03-2024 HbA1c (Bld) [Mass fraction] 6.7 % High 3.8-5.6 [facility] Comment on above: Order Comment: DR. Wanda ANN ORDERED CBC Result Comment: Norm al < 5.7 % Prediabetic 5.7 - 6.4 % Diabetic >or= 6.5 % Please note range changes. Performed By: #### L 502.0250, L501.9907, L100.0100, L500.3630 ####[facility] [address] [place], [address] Hemoglobin A1c percentageOrd ered By: Angelita Call on 04-03-2024 HbA1c (Bld) [Mass fraction] 6.7 % High 3.8-5.6 [facility] Comment on above: Normal < 5.7 % Predi abetic 5.7 - 6.4 % Diabetic >or= 6.5 % Please note range changes. Hemoglobin measurementOrdere d By: Angelita Call on 04-03-2024 Hemoglobin (Bld) [Mass/Vol] 12.3 g/dL 12.0-15.0 [facility] Immature granulocytes/100 WB C Auto (Bld)Ordered By: Angelita Call on 04-03-2024 Immature granulocytes/100 WBC (Bld) 0.000 % 0.0-0.9 [facility] Comment on above: IG% - Immature Granu locytes (promyelocytes, myelocytes and metamyelocytes) > 1% indicates that a LEFT SHIFT is Present. Laboratory - Chemistry and C hemistry - challengeOrdered By: Angelita Call on 04-03-2024 AST [Catalytic activity/Vol] 76 U/L High 15-37 [facility] Lymphocytes Auto (Unsp spec) [#/Vol]Ordered By: Angelita Call on 04-03-2024 Lymphocytes (Bld) [#/Vol] 1.25 10*3/uL 0.83-4.5 1 [facility] Lymphocytes/100 WBC Auto (Un sp spec)Ordered By: Angelita Call on 04-03-2024 Lymphocytes/100 WBC (Bld) 28.5 % 19-41 [facility] MCV (mean corpuscular volume ) determinationOrdered By: Angelita Call on 04-03-2024 MCV (RBC) [Entitic vol] 93.3 fL 81-99 [facility] Mean corpuscular hemoglobin (MCH) determinationOrdered By: Angelita Call on 04-03-2024 MCH (RBC) [Entitic mass] 30.5 pg 27.0-32.0 [facility] Mean corpuscular hemoglobin concentration (MCHC) determinationOrdered By: Angelita Call on 04-03-2024 MCHC (RBC) [Mass/Vol] 32.7 g/dL 32-36 [facility] Mean platelet volume determi nationOrdered By: Angelita Call on 04-03-2024 Platelet mean volume (Bld) [Entitic vol] 13.8 fL High 6.2-12.0 [facility] Microalb:Creat Ratio,Random URon 04-03-2024 Creatinine [Mass/Vol] 75.20 mg/dL Normal NO RAN GE EST. [facility] Comment on above: Order Comment: DR. Wanda ANN ORDERED CBC Performed By: #### L 502.0250, L501.9985, L100.0100, L500.4050 ####[facility] [address] [place], [address] MALB:CRE 14.6 mg/g CRE Normal <30 mg/g CRE [facility] Comment on above: Order Comment: DR. Wanda ANN ORDERED CBC Performed By: #### L 502.0250, L501.9985, L100.0100, L500.4050 ####[facility] [address] [place], [address] MICROALBUMIN,UR 11.0 mg/L Normal NO RANGE EST. [facility] Comment on above: Order Comment: DR. Wanda ANN ORDERED CBC Performed By: #### L 502.0250, L501.9985, L100.0100, L500.4050 ####[facility] [address] [place], [address] Monocyte percentageOrdered B y: Angelita Call on 04-03-2024 Monocytes/100 WBC (Bld) 15.5 % High 0-10 [facility] Neutrophil percentageOrdered By: Angelita Call on 04-03-2024 Neutrophils/100 WBC (Bld) 48.7 % 47-70 [facility] Nucleated red blood cell per centageOrdered By: Angelita Call on 04-03-2024 Nucleated RBC/100 WBC (Bld) [Ratio] 0 % 0-5 [facility] Platelet countOrdered By: Geovanny Call on 04-03-2024 Platelets (Bld) [#/Vol] 54 10*3/uL Low 150-450 [facility] Potassium measurementOrdered By: Angelita Call on 04-03-2024 Potassium [Moles/Vol] 4.1 mmol/L 3.5-5.1 [facility] RBC Auto (Bld) [#/Vol]Ordere d By: Angelita Call on 04-03-2024 RBC (Bld) [#/Vol] 4.03 10*6/uL Low 4.2-5.4 [facility] Random urine microalbumin me asurementOrdered By: Angelita Call on 04-03-2024 Urine Random Microalbumin 11.0 mg/L NO RANGE EST. [facility] Serum anion gap measurementO rdered By: Angelita Call on 04-03-2024 Anion gap [Moles/Vol] 4 mmol/L Low 5-15 [facility] Serum globulin measurementOr dered By: Angelita Call on 04-03-2024 Globulin (S) [Mass/Vol] 4.4 g/dL High 2.2-4.2 [facility] Serum or plasma alanine adames otransferase (ALT) measurementOrdered By: Angelita Call on 04-03-2024 ALT [Catalytic activity/Vol] 46 U/L 13-56 [facility] Serum or plasma albumin cheri urement (mass/volume)Ordered By: Angelita Call on 04-03-2024 Albumin [Mass/Vol] 3.0 g/dL Low 3.2-5.0 [facility] Serum or plasma alkaline iban sphatase measurementOrdered By: Angelita Call on 04-03-2024 ALP [Catalytic activity/Vol] 279 U/L High 45-117 [facility] Serum or plasma calcium cheri urement (mass/volume)Ordered By: Angelita Call on 04-03-2024 Calcium [Mass/Vol] 9.1 mg/dL 8.5-10.1 [facility] Serum or plasma creatinine m easurement (mass/volume)Ordered By: Angelita Call on 04-03-2024 Creatinine [Mass/Vol] 0.80 mg/dL 0.55-1.02 [facility] Comment on above: The validity of the calculated GFR & GFRAA in patients over 70 years has not been determined. Clinical correlation is essential. Serum or plasma urea nitroge n measurement (mass/volume)Ordered By: Angeliat Call on 04-03-2024 Urea nitrogen [Mass/Vol] 11 mg/dL 7-18 [facility] Sodium levelOrdered By: Belinda Call on 04-03-2024 Sodium [Moles/Vol] 136 mmol/L 136-145 [facility] Total proteinOrdered By: Prosper Call on 04-03-2024 Protein [Mass/Vol] 7.4 g/dL 6.4-8.2 [facility] Urine albumin/creatinine rat io for detection of microalbuminuriaOrdered By: Angelita Call on 04-03-2024 Urine Microalbumin/Creatinine Ratio 14.6 mg/g CRE <30 [facility] Urine creatinine measurement (mass/volume)Ordered By: Angelita Call on 04-03-2024 Creatinine (U) [Mass/Vol] 75.20 mg/dL NO RANGE EST. [facility] White blood cell (WBC) count Ordered By: Angelita Call on 04-03-2024 WBC (Bld) [#/Vol] 4.4 10*3/uL 4.4-11.0 [facility] L3410.9999on 03-24-2024 [facility] Misc. COMMENT Normal . [facility] Comment on above: Order Comment: [id number] 3URINE DRUG SCREEN Result Comment: Test Ordered: [id number] 6+Oxycodone-Bund Amphetamines, Urine Negative ng/mL UI Reference Range: Zjawgz=0703 Amphetamine test includes Amphetamine and Methamphetamine. Barbiturate Negative ng/mL UI Reference Range: Emzhcp=708 Benzodiazepines Negative ng/mL UI Reference Range: Cchcqq=748 Cannabinoids Negative ng/mL UI Reference Range: Cutoff=20 Cocaine (Metabolite) Negative ng/mL UI Reference Range: Lrkpvs=552 Opiates Note: ng/mL UI See Final Results Reference Range: Vvrnpi=308 Opiate test includes Codeine, Morphine, Hydromorphone, Hydrocodone. Opiates Negative ng/mL UI Reference Range: Ipctiv=369 Opiate test includes Codeine, Morphine, Hydromorphone, Hydrocodone. Confirmation performed by Mass Spectrometry Oxycodone/Oxymorphone, Urine Negative ng/mL UI Reference Range: Gotbtv=457 Test includes Oxycodone and Oxymorphone Performed at: [facility] [address] [place], [place] [id number] Lieutenant Shift Supervisor: Royal Baker PhD, Phone: [phone] Performed at: [address] [id number] Lieutenant Shift Supervisor: Aaron Ackerman PhD, Phone: [phone] Performed By: #### L 3410.9999, L505.5000 ####[facility] [address] [place], [place], [address] Methadone, urineOrdered By: Rehana Vega on 03-21-2024 Urine Methadone Screen Negative < 300 ng/mL [facility] No Panel InformationOrdered By: Rehana Vega on 03-21-2024 Miscellaneous Test COMMENT . [facility] Comment on above: Test Ordered: [id number] 6+Oxycodone-BundAmphetamines, Urine Negative ng/mL UI Reference Range: Upvtdj=8513Vnnmmivszwy test includes Amphetamine and Methamphetamine.Barbiturate Negative ng/mL UI Reference Range: Cqxrrd=134Jhxgthrhhxhzxea Negative ng/mL UI Reference Range: Qrhipf=649Frbromakexrg Negative ng/mL UI Reference Range: Cutoff=20Cocaine (Metabolite) Negative ng/mL UI Reference Range: Nhiaar=693Iirwcwp Note: ng/mL UI See Final Results Reference Range: Vnuexa=922Eboivs test includes Codeine, Morphine, Hydromorphone, Hydrocodone.Opiates Negative ng/mL UI Reference Range: Iaxiik=539Kbpero test includes Codeine, Morphine, Hydromorphone, Hydrocodone.Confirmation performed by Mass SpectrometryOxycodone/Oxymorphone, Urine Negative ng/mL UI Reference Range: Xbjnjw=536Pgfd includes Oxycodone and OxymorphonePerformed at: [facility] [id number] [place], [place] [id number] Director: Royal Baker PhD, Phone: [phone] at: [facility] [address] [place], [place] [id number] Director: Aaron Ackerman PhD, Phone: [phone] Urine Drug Screen Comment [facility] Comment on above: CONFIRMATORY TESTING FOR ALL POSITIVE URINE DRUG SCREENRESULTS WILL ONLY BE SENT OUT UPON PHYSICIAN ORDER. [facility]IST[facility] Urine Drug Screen methods provide only preliminaryanalytical test results. A more specific alternate chemicalmethod must be used in order to obtain a confirmedanalytical result. Gas chromatography/mass spectrometery(GC/MS) is the preferred confirmatory method. Clinicalconsideration and professional judgement should be appliedto any drug of abuse test result, particularly whenpreliminary positive results are used. URINE TCA TESTING MUST BE ORDERED SEPARATELY. USE TESTMNEMONIC: [facility] Quantitative urine opiates m easurementOrdered By: Rehana Vega on 03-21-2024 Opiates Ql (U) Positive High < 300 ng/mL [facility] Urine Drug Screen (VISTA)on 03-21-2024 AMPHETAMINES Negative Normal <1000 ng/mL [facility] Comment on above: Order Comment: UNK Performed By: #### L 3410.9999, L505.5000 ####[facility] [address] [facility] [address] BARBITIURATES Negative Normal < 200 ng/mL [facility] Comment on above: Order Comment: UNK Performed By: #### L 3410.9999, L505.5000 ####[facility] [address] [facility] [address] BENZODIAZIPINE Negative Normal < 200 ng/mL [facility] Comment on above: Order Comment: UNK Performed By: #### L 3410.9999, L505.5000 ####[facility] [address] [place], [address] COCAINE Negative Normal < 300 ng/mL [facility] Comment on above: Order Comment: UNK Performed By: #### L 3410.9999, L505.5000 ####[facility] [address] [place], [address] ECSTACY Negative Normal < 500 ng/mL [facility] Comment on above: Order Comment: UNK Performed By: #### L 3410.9999, L505.5000 ####[facility] [address] [place], [address] METHADONE Negative Normal < 300 ng/mL [facility] Comment on above: Order Comment: UNK Performed By: #### L 3410.9999, L505.5000 ####[facility] [address] [place], [address] OPIATES Positive Abnormal < 300 ng/mL [facility] Comment on above: Order Comment: UNK Performed By: #### L 3410.9999, L505.5000 ####[facility] [address] [place], [address] PCP Negative Normal < 25 ng/mL [facility] Comment on above: Order Comment: UNK Performed By: #### L 3410.9999, L505.5000 ####[facility] [address] [place], [address] THC Negative Normal < 50 ng/mL [facility] Comment on above: Order Comment: UNK Performed By: #### L 3410.9999, L505.5000 ####[facility] [address] [place], [address] VISTA UDS PH 7 Normal [facility] Comment on above: Order Comment: UNK Performed By: #### L 3410.9999, L505.5000 ####[facility] [address] [place], [address] Urine amphetamine measuremen tOrdered By: Rehana Vega on 03-21-2024 Amphetamines Ql (U) Negative <1000 ng/mL [facility] Urine barbiturates measureme ntOrdered By: Rehana Vega on 03-21-2024 Urine Barbiturates Screen Negative < 200 ng/mL [facility] Urine benzodiazepine levelOr dered By: Rehana Basali on 03-21-2024 Benzodiazepines Ql (U) Negative < 200 ng/mL [facility] Urine cocaine levelOrdered B y: Rehana Basali on 03-21-2024 Cocaine Ql (U) Negative < 300 ng/mL [facility] Urine dmthk-2-ndkudfrhdpawef abinol (THC) measurementOrdered By: Rehana Basali on 03-21-2024 Cannabinoids Screen Ql (U) Negative < 50 ng/mL [facility] Urine methylenedioxymethamph etamine (MDMA) measurementOrdered By: Rehana Waltersi on 03-21-2024 MDMA (Ecstasy) Screen Negative < 500 ng/mL [facility] Urine phencyclidine (PCP) de tectionOrdered By: Rehana Vega on 03-21-2024 Phencyclidine Ql (U) Negative < 25 ng/mL [facility] Spine Lumbar (Routine)on Spine Lumbar (Routine) [facility] Imaging Services [address] [place], [place] [address] Spine Lumbar (Routine) MR#: [id number] Acct: [id number] Name: MACY MORALES Rep #: [id number] : 1955 F 68 From: Evelio Mauricio MD PCP: Dr. Angelita Call MD Status: REG CLI Study: Spine Lumbar (Routine) Date of Exam: 02/19/24 Exam# [id number] Ordering Dr: Angelita Call MD [id number] EXAM: MR LUMBAR SPINE WITHOUT INTRAVENOUS CONTRAST CLINICAL INDICATION: BACK PAIN TECHNIQUE: Multiplanar and multisequence MR images of the lumbar spine without intravenous contrast. COMPARISON: Plain film from 12/16/2023 FINDINGS: VERTEBRAE: No fractures or other acute findings. No infiltrative or focal lesions. No marrow edema. SPINAL CORD: Unremarkable. Normal position and signal intensity of the conus medullaris. SOFT TISSUES: Unremarkable. DISCS/SPINAL CANAL/NEURAL FORAMINA: L1-L2: Disc desiccation. Normal spinal canal and lateral recesses. Normal neuroforamina. L2-L3: Disc desiccation. Normal spinal canal and lateral recesses. Normal neuroforamina. L3-L4: Disc desiccation and a mild left neural foraminal/lateral asymmetric disc bulge, causing mild left neural foraminal narrowing. There is also considered hypertrophy. Normal spinal canal and lateral recesses. L4-L5: Mild circumferential disc bulge as well as facet arthropathy and ligamentum flavum thickening causing mild central canal narrowing, mild right and moderate left neural foraminal narrowing. Impingement of the exiting left L4 nerve root. L5-S1: There is a left paracentral/neural foraminal disc bulge at this level, causing moderate left neural foraminal stenosis, with impingement of the exiting left L5 nerve root. Normal spinal canal and lateral recesses. MRI/Spine Lumbar (Routine) IMPRESSION: Multilevel degenerative changes of the lumbar spine, including moderate left neural foraminal narrowing at L4/5 and L5/S1 with disc bulges impinging the exiting left L4 and L5 nerve roots which could be a cause of radicular symptoms. Electronically Signed: Evelio Mauricio MD at 7:17 EST , CC: Dr. Angelita Call MD Equipment Superintendent: Signed Normal [facility] IgG Subclasseson 12-23-2023 IgG, SUBCLASS 1 1058 mg/dL High 248-810 [facility] Comment on above: Performed By: #### L 3200.0500 ####[facility] [address] [place], [place], [address] IgG, SUBCLASS 2 450 mg/dL Normal 130-555 [facility] Comment on above: Performed By: #### L 3200.0500 ####[facility] [address] [place], [place], [address] IgG, SUBCLASS 3 41 mg/dL Normal 15-102 [facility] Comment on above: Performed By: #### L 3200.0500 ####[facility] [address] [place], [place], [id number] IgG, SUBCLASS 4 47 mg/dL Normal 2-96 [facility] Comment on above: Result Comment: Perf ormed at: - [facility] [address] [id number] Lieutenant Shift Supervisor: Aaron Ackerman PhD, Phone: [phone] Performed By: #### L 3200.0500 ####[facility] [address] [place], [address] IGG,QUANT 1713 mg/dL High 586-1602 [facility] Comment on above: Performed By: #### L 3200.0500 ####[facility] [address] [place], [place], [address] HIP, UNI W/ Pelvis 2-3 Views on 12-16-2023 HIP, UNI W/ Pelvis 2-3 Views [facility] Imaging Services [address] [place], [place] [address] HIP, UNI W/ Pelvis 2-3 Views MR#: [id number] Acct: [id number] Name: MACY MORALES Rep #: [id number] : 1955 F 68 From: Ez Penaloza MD PCP: Dr. Angelita Call MD Status: [facility] Study: HIP, UNI W/ Pelvis 2-3 Views Date of Exam: 06/05 Exam# [id number] Ordering Dr: Angelita Call MD [id number] EXAM: XR LEFT HIP WITH PELVIS WHEN PERFORMED, 2 OR 3 VIEWS CLINICAL INDICATION: LEFT BUTTOCK PAIN TECHNIQUE: Two or three views of the left hip with pelvis when performed. COMPARISON: No relevant prior studies available. FINDINGS: BONES/JOINTS: Unremarkable. No displaced fracture. No destructive or sclerotic lesions. Note that overlapping bowel shadows may however obscure fine detail. Sacroiliac joint is unremarkable. No widening of the pubic symphysis. The articular structures are unremarkable. SOFT TISSUES: Unremarkable. No soft tissue swelling or gas. RAD/HIP, UNI W/ Pelvis 2-3 Views IMPRESSION: Normal AP pelvis and left hip radiographs. Electronically Signed: Ez Penaloza MD at 16:04 EDT , CC: Dr. Angelita Call MD Equipment Superintendent: Signed Normal [facility] L/S Spine Min 4 Viewson L/S Spine Min 4 Views [facility] Imaging Services [address] [place] [address] L/S Spine Min 4 Views MR#: [id number] Acct: [id number] Name: MACY MORALES Rep #: [id number] : 1955 F 68 From: Colby Hayward MD PCP: Dr. Angelita Call MD Status: REG CLI Study: L/S Spine Min 4 Views Date of Exam: 12/16/23 Exam# [id number] Ordering Dr: Angelita Call MD [id number] STUDY: X-RAY - LUMBAR SPINE REASON FOR EXAM: Female, 68 years old. LEFT BUTTOCK PAIN TECHNIQUE: 5 view(s) of the lumbar spine were obtained. COMPARISON: None FINDINGS: Normal lumbar lordosis. There is no substantial scoliosis. There is a normal alignment of the vertebrae. Normal vertebral bodies and endplates. Normal disc space heights. There is multilevel facet hypertrophy in the lower lumbar spine. The soft tissue structures are unremarkable. RAD/L/S Spine Min 4 Views IMPRESSION: Degenerative changes of the spine, as detailed above. MRI may be useful. Electronically Signed: Colby Hayward MD at 12:05 EDT , CC: Dr. Angelita Call MD Equipment Superintendent: Signed Normal [facility] Abdomen Limitedon 12-09-2023 Abdomen Limited [facility] Imaging Services [address] [place] [address] Abdomen Limited MR#: [id number] Acct: [id number] Name: MACY MORALES Rep #: [id number] : 1955 F 68 From: Domingo santamaria MD PCP: Dr. Angelita Call MD Status: REG CLI Study: Abdomen Limited Date of Exam: 12/09/23 Exam# [id number] Ordering Dr: Santino Marie DO [id number] STUDY: ABDOMINAL ULTRASOUND - RIGHT UPPER QUADRANT REASON FOR VISIT: Female, 68 years old cirrhosis TECHNIQUE: Ultrasound evaluation of the right upper quadrant was performed with real-time and static valadez-scale imaging. TECHNICAL QUALITY: Adequate. COMPARISON: Comparison is made with prior CT scan of abdomen and pelvis dated July 06, 2023. FINDINGS: Liver: The liver measures 11.6 cm. There is normal echogenicity of the liver. Findings suggestive of cirrhosis. The bile ducts are within normal limits. There is hepatic color flow. The direction of portal flow is hepatopetal. There is no demonstrated mass lesion. Gallbladder: Normal distended gallbladder. The gallbladder wall is thickened and measures 8.3 mm. There is a negative sonographic Santos''s sign. There is no pericholecystic fluid. There are no gallstones. Common Bile Duct (C.B.D.): The common bile duct measures 3.5 mm. Pancreas: Normal size of the head, body and tail of the pancreas. There is increased echogenicity of the pancreas. There is no demonstrated pancreatic mass or cyst. Right Kidney: Normal size of the right kidney. The right kidney measures 12 cm x 6.2 cm x 6.4 cm. Normal renal cortex. The right cortex measures 1.6 cm. There is no demonstrated renal mass or cyst. There is no right hydronephrosis. Small amount of ascites. US/Abdomen Limited IMPRESSION: Findings in keeping with cirrhosis of the liver. Thickened gallbladder wall. Small volume ascites. Electronically Signed: Domingo Dc MD at 13:00 EDT , CC: Dr. Angelita Call MD; Santino Marie DO Equipment Superintendent: Signed Normal [facility] AFP, Tumor Markeron 11-26-19 24 AFP TUMOR MYRNA 5.5 ng/mL Normal 0.0-9.2 [facility] Comment on above: Order Comment: DR. Cassius RUIZ ORDERED LIPID,TSH,CMP,CBCDALL THE OTHERS ARE DR. MARIE.NN Result Comment: [employer] Electrochemiluminescence Immunoassay (ECLIA) Values obtained with different assay methods or kits cannot be used interchangeably. Results cannot be interpreted as absolute evidence of the presence or absence of malignant disease. This test is not interpretable in females. Performed at: [address], [place], [place] [id number] Lieutenant Shift Supervisor: Aaron Ackerman PhD, Phone: [phone] Performed By: #### L 500.4100, L3300.0700, L503.6550, L100.0100, L300.3900, L503.6075, L501.9520, L500.4050, L3100.3425, L503.6150 ####[facility] [address] [place], [address] JONATHAN + Protein Elect, Serumon 11-26-2023 Albumin [Mass/Vol] 3.4 g/dL Normal 2.9-4.4 [facility] Comment on above: Order Comment: DR. Cassius RUIZ ORDERED LIPID,TSH,CMP,CBCDALL THE OTHERS ARE DR. MARIE.NN Performed By: #### L 500.4100, L3300.0700, L503.6550, L100.0100, L300.3900, L503.6075, L501.9520, L500.4050, L3100.3425, L503.6150 ####[facility] [address] [place], [address] Albumin/Globulin [Mass ratio] 1.0 {ratio} Normal 0.7-1.7 [facility] Comment on above: Order Comment: DR. Cassius RUIZ ORDERED LIPID,TSH,CMP,CBCDALL THE OTHERS ARE DR. MARIE.NN Performed By: #### L 500.4100, L3300.0700, L503.6550, L100.0100, L300.3900, L503.6075, L501.9520, L500.4050, L3100.3425, L503.6150 ####[facility] [address] [place], [address] SUMXF-2-ZRMH 0.3 g/dL Normal 0.0-0.4 [facility] Comment on above: Order Comment: DR. Cassius RUIZ ORDERED LIPID,TSH,CMP,CBCDALL THE OTHERS ARE DR. MARIE.NN Performed By: #### L 500.4100, L3300.0700, L503.6550, L100.0100, L300.3900, L503.6075, L501.9520, L500.4050, L3100.3425, L503.6150 ####[facility] [address] [place], [address] GKLBL-0-PMYD 0.5 g/dL Normal 0.4-1.0 [facility] Comment on above: Order Comment: DR. Cassius RUIZ ORDERED LIPID,TSH,CMP,CBCDALL THE OTHERS ARE DR. MARIE.NN Performed By: #### L 500.4100, L3300.0700, L503.6550, L100.0100, L300.3900, L503.6075, L501.9520, L500.4050, L3100.3425, L503.6150 ####[facility] [address] [place], [address] BETA GLOBULIN 1.1 g/dL Normal 0.7-1.3 [facility] Comment on above: Order Comment: DR. Cassius RUIZ ORDERED LIPID,TSH,CMP,CBCDALL THE OTHERS ARE DR. MARIE.NN Performed By: #### L 500.4100, L3300.0700, L503.6550, L100.0100, L300.3900, L503.6075, L501.9520, L500.4050, L3100.3425, L503.6150 ####[facility] [address] [place], [address] GAMMA GLOBULIN 1.7 g/dL Normal 0.4-1.8 [facility] Comment on above: Order Comment: DR. Cassius RUIZ ORDERED LIPID,TSH,CMP,CBCDALL THE OTHERS ARE DR. MARIE.NN Performed By: #### L 500.4100, L3300.0700, L503.6550, L100.0100, L300.3900, L503.6075, L501.9520, L500.4050, L3100.3425, L503.6150 ####[facility] [address] [place], [address] Globulin (S) [Mass/Vol] 3.5 g/dL Normal 2.2-3.9 [facility] Comment on above: Order Comment: DR. Cassius RUIZ ORDERED LIPID,TSH,CMP,CBCDALL THE OTHERS ARE DR. MARIE.NN Performed By: #### L 500.4100, L3300.0700, L503.6550, L100.0100, L300.3900, L503.6075, L501.9520, L500.4050, L3100.3425, L503.6150 ####[facility] [address] [place], [address] JONATHAN RESULT,S Comment Normal . [facility] Comment on above: Order Comment: DR. Cassius RUIZ ORDERED LIPID,TSH,CMP,CBCDALL THE OTHERS ARE DR. MARIE.NN Result Comment: No m onoclonality detected. Performed By: #### L 500.4100, L3300.0700, L503.6550, L100.0100, L300.3900, L503.6075, L501.9520, L500.4050, L3100.3425, L503.6150 ####[facility] [address] [place], [address] IMMUNOGLOB A QN 546 mg/dL High 87-352 [facility] Comment on above: Order Comment: DR. Cassius RUIZ ORDERED LIPID,TSH,CMP,CBCDALL THE OTHERS ARE DR. MARIE.NN Performed By: #### L 500.4100, L3300.0700, L503.6550, L100.0100, L300.3900, L503.6075, L501.9520, L500.4050, L3100.3425, L503.6150 ####[facility] [address] [place], [address] IMMUNOGLOB G QN 1650 mg/dL High 586-1602 [facility] Comment on above: Order Comment: DR. Cassius RUIZ ORDERED LIPID,TSH,CMP,CBCDALL THE OTHERS ARE DR. MARIE.NN Performed By: #### L 500.4100, L3300.0700, L503.6550, L100.0100, L300.3900, L503.6075, L501.9520, L500.4050, L3100.3425, L503.6150 ####[facility] [address] [place], [address] IMMUNOGLOB M QN 211 mg/dL Normal 26-217 [facility] Comment on above: Order Comment: DR. Cassius RUIZ ORDERED LIPID,TSH,CMP,CBCDALL THE OTHERS ARE DR. MARIE.NN Performed By: #### L 500.4100, L3300.0700, L503.6550, L100.0100, L300.3900, L503.6075, L501.9520, L500.4050, L3100.3425, L503.6150 ####[facility] [address] [place], [address] M-Henry Not Observed Normal Not Observed [facility] Comment on above: Order Comment: DR. Cassius RUIZ ORDERED LIPID,TSH,CMP,CBCDALL THE OTHERS ARE DR. MARIE.NN Performed By: #### L 500.4100, L3300.0700, L503.6550, L100.0100, L300.3900, L503.6075, L501.9520, L500.4050, L3100.3425, L503.6150 ####[facility] [address] [place], [address] NOTE: Comment Normal . [facility] Comment on above: Order Comment: DR. Cassius RUIZ ORDERED LIPID,TSH,CMP,CBCDALL THE OTHERS ARE DR. MARIE.NN Result Comment: Prot ein electrophoresis scan will follow via computer, mail, or console assembler delivery. Performed By: #### L 500.4100, L3300.0700, L503.6550, L100.0100, L300.3900, L503.6075, L501.9520, L500.4050, L3100.3425, L503.6150 ####[facility] [address] [place], [place], [id number]) Protein [Mass/Vol] 6.9 g/dL Normal 6.0-8.5 [facility] Comment on above: Order Comment: DR. Cassius RUIZ ORDERED LIPID,TSH,CMP,CBCDALL THE OTHERS ARE DR. MARIE.NN Performed By: #### L 500.4100, L3300.0700, L503.6550, L100.0100, L300.3900, L503.6075, L501.9520, L500.4050, L3100.3425, L503.6150 ####[facility] [address] [place], [address] CBC W/Diff, Automatedon 11-13 ATYPICAL LYMPH 1+ Normal [facility] Comment on above: Order Comment: DR. Cassius RUIZ ORDERED LIPID,TSH,CMP,CBCD ALL THE OTHERS ARE DR. MARIE. Performed By: #### L 500.4100, L3300.0700, L503.6550, L100.0100, L300.3900, L503.6075, L501.9520, L500.4050, L3100.3425, L503.6150 #### [facility] [address] [place], [address] PLT EST MOD DEC Normal ADEQ [facility] Comment on above: Order Comment: DR. Cassius RUIZ ORDERED LIPID,TSH,CMP,CBCD ALL THE OTHERS ARE DR. MARIE. Performed By: #### L 500.4100, L3300.0700, L503.6550, L100.0100, L300.3900, L503.6075, L501.9520, L500.4050, L3100.3425, L503.6150 #### [facility] [address] [place], [address] Comprehensive Metabolic Prof ilon 11-25-2023 Albumin [Mass/Vol] 3.2 g/dL Normal 3.2-5.0 [facility] Comment on above: Order Comment: DR. Cassius RUIZ ORDERED LIPID,TSH,CMP,CBCD ALL THE OTHERS ARE DR. MARIE. Performed By: #### L 500.4100, L3300.0700, L503.6550, L100.0100, L300.3900, L503.6075, L501.9520, L500.4050, L3100.3425, L503.6150 #### [facility] [address] [place], [address] Albumin/Globulin [Mass ratio] 0.8 {ratio} Low 0.9-2.4 [facility] Comment on above: Order Comment: DR. Cassius RUIZ ORDERED LIPID,TSH,CMP,CBCD ALL THE OTHERS ARE DR. MARIE. Performed By: #### L 500.4100, L3300.0700, L503.6550, L100.0100, L300.3900, L503.6075, L501.9520, L500.4050, L3100.3425, L503.6150 #### [facility] [address] [place], [address] ALK P 242 U/L High 45-117 [facility] Comment on above: Order Comment: DR. Cassius RUIZ ORDERED LIPID,TSH,CMP,CBCD ALL THE OTHERS ARE DR. MARIE. Performed By: #### L 500.4100, L3300.0700, L503.6550, L100.0100, L300.3900, L503.6075, L501.9520, L500.4050, L3100.3425, L503.6150 #### [facility] [address] [place], [address] ALT [Catalytic activity/Vol] 51 U/L Normal 13-56 [facility] Comment on above: Order Comment: DR. Cassius RUIZ ORDERED LIPID,TSH,CMP,CBCD ALL THE OTHERS ARE DR. MARIE. Performed By: #### L 500.4100, L3300.0700, L503.6550, L100.0100, L300.3900, L503.6075, L501.9520, L500.4050, L3100.3425, L503.6150 #### [facility] [address] [place], [address] AST [Catalytic activity/Vol] 85 U/L High 15-37 [facility] Comment on above: Order Comment: DR. Cassius RUIZ ORDERED LIPID,TSH,CMP,CBCD ALL THE OTHERS ARE DR. MARIE. Performed By: #### L 500.4100, L3300.0700, L503.6550, L100.0100, L300.3900, L503.6075, L501.9520, L500.4050, L3100.3425, L503.6150 #### [facility] [address] [place], [address] Bilirubin [Mass/Vol] 2.10 mg/dL High 0.20-1.00 [facility] Comment on above: Order Comment: DR. Cassius RUIZ ORDERED LIPID,TSH,CMP,CBCD ALL THE OTHERS ARE DR. MARIE. Result Comment: For patients on eltrombopag therapy, use of Dimension [place] TBIL is not recommended. Performed By: #### L 500.4100, L3300.0700, L503.6550, L100.0100, L300.3900, L503.6075, L501.9520, L500.4050, L3100.3425, L503.6150 #### [facility] [address] [place], [address] BUN/CRE 7.6 RATIO Low 10-20 [facility] Comment on above: Order Comment: DR. Cassius RUIZ ORDERED LIPID,TSH,CMP,CBCD ALL THE OTHERS ARE DR. MARIE. Performed By: #### L 500.4100, L3300.0700, L503.6550, L100.0100, L300.3900, L503.6075, L501.9520, L500.4050, L3100.3425, L503.6150 #### [facility] [address] [place], [address] CA,Total 8.7 mg/dL Normal 8.5-10.1 [facility] Comment on above: Order Comment: DR. Cassius RUIZ ORDERED LIPID,TSH,CMP,CBCD ALL THE OTHERS ARE DR. MARIE. Performed By: #### L 500.4100, L3300.0700, L503.6550, L100.0100, L300.3900, L503.6075, L501.9520, L500.4050, L3100.3425, L503.6150 #### [facility] [address] [place], [address] Chloride [Moles/Vol] 105 mmol/L Normal 98-107 [facility] Comment on above: Order Comment: DR. Cassius RUIZ ORDERED LIPID,TSH,CMP,CBCD ALL THE OTHERS ARE DR. MARIE. Performed By: #### L 500.4100, L3300.0700, L503.6550, L100.0100, L300.3900, L503.6075, L501.9520, L500.4050, L3100.3425, L503.6150 #### [facility] [address] [place], [address] CO2 [Moles/Vol] 27.0 mmol/L Normal 21.0-32.0 [facility] Comment on above: Order Comment: DR. Cassius RUIZ ORDERED LIPID,TSH,CMP,CBCD ALL THE OTHERS ARE DR. MARIE. Performed By: #### L 500.4100, L3300.0700, L503.6550, L100.0100, L300.3900, L503.6075, L501.9520, L500.4050, L3100.3425, L503.6150 #### [facility] [address] [place], [address] Creatinine [Mass/Vol] 0.92 mg/dL Normal 0.55-1.02 [facility] Comment on above: Order Comment: DR. Cassius RUIZ ORDERED LIPID,TSH,CMP,CBCD ALL THE OTHERS ARE DR. MARIE. Result Comment: The validity of the calculated GFR GFRAA in patients over 70 years has not been determined. Clinical correlation is essential. Performed By: #### L 500.4100, L3300.0700, L503.6550, L100.0100, L300.3900, L503.6075, L501.9520, L500.4050, L3100.3425, L503.6150 #### [facility] [address] [place], [address] EST GFR - AA 78 mL/min Normal >60 [facility] Comment on above: Order Comment: DR. Cassius RUIZ ORDERED LIPID,TSH,CMP,CBCD ALL THE OTHERS ARE DR. MARIE. Result Comment: Afri can English GFR Calc Performed By: #### L 500.4100, L3300.0700, L503.6550, L100.0100, L300.3900, L503.6075, L501.9520, L500.4050, L3100.3425, L503.6150 #### [facility] [address] [place], [place], [id number] GAP 6 Normal 5-15 [facility] Comment on above: Order Comment: DR. Cassius RUIZ ORDERED LIPID,TSH,CMP,CBCD ALL THE OTHERS ARE DR. MARIE. Performed By: #### L 500.4100, L3300.0700, L503.6550, L100.0100, L300.3900, L503.6075, L501.9520, L500.4050, L3100.3425, L503.6150 #### [facility] [address] [place], [place], [address] GFR/1.73 sq M.predicted among non-blacks MDRD (S/P/Bld) [Vol rate/Area] 65 mL/min/{1.73_m2} Normal >60 [facility] Comment on above: Order Comment: DR. Cassius RUIZ ORDERED LIPID,TSH,CMP,CBCD ALL THE OTHERS ARE DR. MARIE. Result Comment: Non- GFR Calc Performed By: #### L 500.4100, L3300.0700, L503.6550, L100.0100, L300.3900, L503.6075, L501.9520, L500.4050, L3100.3425, L503.6150 #### [facility] [address] [place], [address] Globulin (S) [Mass/Vol] 4.2 g/dL Normal 2.2-4.2 [facility] Comment on above: Order Comment: DR. Cassius RUIZ ORDERED LIPID,TSH,CMP,CBCD ALL THE OTHERS ARE DR. MARIE. Performed By: #### L 500.4100, L3300.0700, L503.6550, L100.0100, L300.3900, L503.6075, L501.9520, L500.4050, L3100.3425, L503.6150 #### [facility] [address] [place], [address] Glucose [Mass/Vol] 167 mg/dL High 74-106 [facility] Comment on above: Order Comment: DR. Cassius RUIZ ORDERED LIPID,TSH,CMP,CBCD ALL THE OTHERS ARE DR. MARIE. Result Comment: Fast ing Glucose result greater than or equal to 126 mg/dL suggests DIABETES MELLITUS per A.D.A. criteria. Performed By: #### L 500.4100, L3300.0700, L503.6550, L100.0100, L300.3900, L503.6075, L501.9520, L500.4050, L3100.3425, L503.6150 #### [facility] [address] [place], [address] Potassium [Moles/Vol] 4.2 mmol/L Normal 3.5-5.1 [facility] Comment on above: Order Comment: DR. Cassius RUIZ ORDERED LIPID,TSH,CMP,CBCD ALL THE OTHERS ARE DR. MARIE. Performed By: #### L 500.4100, L3300.0700, L503.6550, L100.0100, L300.3900, L503.6075, L501.9520, L500.4050, L3100.3425, L503.6150 #### [facility] [address] [place], [address] Sodium [Moles/Vol] 138 mmol/L Normal 136-145 [facility] Comment on above: Order Comment: DR. Cassius RUIZ ORDERED LIPID,TSH,CMP,CBCD ALL THE OTHERS ARE DR. MARIE. Performed By: #### L 500.4100, L3300.0700, L503.6550, L100.0100, L300.3900, L503.6075, L501.9520, L500.4050, L3100.3425, L503.6150 #### [facility] [address] [place], [address] T PROT 7.4 g/dL Normal 6.4-8.2 [facility] Comment on above: Order Comment: DR. Cassius RUIZ ORDERED LIPID,TSH,CMP,CBCD ALL THE OTHERS ARE DR. MARIE. Performed By: #### L 500.4100, L3300.0700, L503.6550, L100.0100, L300.3900, L503.6075, L501.9520, L500.4050, L3100.3425, L503.6150 #### [facility] [address] [place], [address] Urea nitrogen [Mass/Vol] 7 mg/dL Normal 7-18 [facility] Comment on above: Order Comment: DR. Cassius RUIZ ORDERED LIPID,TSH,CMP,CBCD ALL THE OTHERS ARE DR. MARIE. Performed By: #### L 500.4100, L3300.0700, L503.6550, L100.0100, L300.3900, L503.6075, L501.9520, L500.4050, L3100.3425, L503.6150 #### [facility] [address] [place], [address] Ferritinon 11-25-2023 Ferritin [Mass/Vol] 155 ng/mL Normal 8-252 [facility] Comment on above: Order Comment: DR. Cassius RUIZ ORDERED LIPID,TSH,CMP,CBCDALL THE OTHERS ARE DR. MARIE. Performed By: #### L 500.4100, L3300.0700, L503.6550, L100.0100, L300.3900, L503.6075, L501.9520, L500.4050, L3100.3425, L503.6150 ####[facility] [address] [place], [address] Gastroenterology Visit Repor ton 11-25-2023 Gastroenterology Visit Report [facility] [address] [place] [address] OFFICE VISIT Date of Service: 11/25/23 MR#: [id number] Acct: [id number] Name: MACY MORALES Rep #: [id number] : 1955 Provider: Santino Marie DO Age/Sex: 68/F Location[place] [facility] [place]: Signed Intake Vital Signs 07/06/23 11:39 09/27/23 09:20 Height 5 ft 5 ft Intake Visit Reasons: 4 M FU Chief Complaint: cva Allergies No Known Allergies Allergy (Verified 09/27/23 09:23) Medications ???Medication ???Instructions ???Recorded ???Confirmed ???Type alendronate 70 mg tablet 70 mg PO QWEEK 07/06/23 11/25/23 History atorvastatin 20 mg tablet 20 mg PO DAILY 07/06/23 11/25/23 History amlodipine 5 mg tablet (Norvasc) 5 mg PO DAILY #30 tabs 07/09/23 11/25/23 Rx neomycin 500 mg tablet 500 mg PO BID #60 tabs 07/22/23 11/25/23 Rx albuterol sulfate 90 mcg/actuation 1 - 2 puff inhalation Q4H PRN PRN 08/27/23 11/25/23 Rx aerosol inhaler (Ventolin HFA) Wheezing/SOB #1 device lactulose 10 gram/15 mL oral 10 g (15 mL) PO DAILY #473 mL 11/25/23 11/25/23 Rx solution metoclopramide HCl 5 mg tablet 5 mg PO TID #90 tabs 11/25/23 11/25/23 Rx (Reglan) pantoprazole 40 mg tablet,delayed 40 mg PO DAILY #30 tabs 11/25/23 11/25/23 Rx release (Protonix) rifaximin 550 mg tablet (Xifaxan) 550 mg PO BID #60 tabs 11/25/23 11/25/23 Rx Have you fallen in the past year?: No PFSH Medical History (Updated 09/27/23 @ 10:04 by Teja Dick MD) Fracture of right distal radius Right wrist pain Adverse drug reaction Hyperbilirubinemia Nausea vomiting and diarrhea Acute renal failure Acute kidney injury Thrombocytopenia Facial droop History of hypertension HTN (hypertension) Diabetes Family History Other CVA (cerebral vascular accident) Hypertension Social History (Updated 09/27/23 @ 09:25 by Sofi Johnson MA) household members: spouse, children and other details: 2 grandchildren Smoking Status: Never smoker alcohol intake: never HPI HPI Chief Complaint: cva Details: MACY MORALES, is a 68 F who presents to the office today for follow up. OV 5.7.24 pt is accompanied by daughter to help translate. Pt reports that she has not had any episodes of bloody emesis since hospitalization. Pt reports that as long as she takes Pantoprazole she does not have HB. Pt states that she has abdominal pain anytime she eats, but that she cannot tolerate eggs, chicken, or fish. Pt reports that she is having 2-3 soft bowel movements per day. Pt also reports that she keeps getting headaches and is unsure what would be best to take to help her. OV 9.12.24 pt reports that she is feeling well overall and denies GI symptoms of concern at this time. pt denies trouble sleeping, swelling, confusion, brain fog, dizziness, and diarrhea or constipation. Pt continues with lactulose and xifaxan. ROS Const Constitutional: No fatigue, fever(s) or weight change ENT ENT: No difficulty swallowing Gastro GI: No abdominal pain, belching, bloating, change in bowel habits, change in stool character, coffee ground emesis, constipation, cramping, diarrhea, heartburn, difficulty swallowing, feeling full early, excessive flatus, incontinent of stools, Vomiting blood/hematemesis, Blood in stool, loose stools, Black,tarry stools, nausea/dyspepsia, pain with swallowing, vomiting or other Musc Musculoskeletal: No joint pain Skin Skin: No yellowing of the eye or itchy eyes Psych Psychiatric: No anxiety and No depression Endo Endocrine: No fatigue or weight change Aller/Imm Allergy/Immunologic: No itchy eyes Josiah/Lymp Hematologic/Lymphatic: No easy bleeding or easy bruising Exam Const General: cooperative and comfortable Nutritional Appearance: average body habitus and well nourished HENRI Head: normal to inspection Ears: hearing grossly normal bilaterally Nose: external nose normal Face and sinus: normal facial exam Mouth: oral mucosae normal Throat: posterior oropharynx normal Eyes General: appearance normal, both eyes and all related structures Neck Neck: normal visual inspection Chest Chest palpation inspection: normal inspection of the chest and normal palpation of entire chest wall Resp Effort Inspection: normal respiratory effort Auscultation: Bilateral: Clear to Auscultation Cardio Palpation: normal PMI Rate: regular rate Rhythm: regular rhythm GI Inspection: normal to inspection Auscultation: normal bowel sounds Percussion: normal to percussion Palpation: no hepatosplenomegaly Skin General: no rashes or lesions noted Neuro General: patient alert Extrem General: normal to inspection Psych Affect: normal affect Assessment and Plan Assessment and Plan (1) Cirrhosis: (more content not included)... Normal [facility] Ironon 11-25-2023 Iron [Mass/Vol] 143 ug/dL Normal 50-170 [facility] Comment on above: Order Comment: DR. Cassius RUIZ ORDERED LIPID,TSH,CMP,CBCDALL THE OTHERS ARE DR. MARIE. Performed By: #### L 500.4100, L3300.0700, L503.6550, L100.0100, L300.3900, L503.6075, L501.9520, L500.4050, L3100.3425, L503.6150 ####[facility] [address] [place], [address] Iron Binding Capacity,Totalo n 11-25-2023 TIBC 357 ug/dL Normal 250-450 [facility] Comment on above: Order Comment: DR. Cassius RUIZ ORDERED LIPID,TSH,CMP,CBCDALL THE OTHERS ARE DR. MARIE. Performed By: #### L 500.4100, L3300.0700, L503.6550, L100.0100, L300.3900, L503.6075, L501.9520, L500.4050, L3100.3425, L503.6150 ####[facility] [address] [place], [address] Lipid Profileon 11-25-2023 Cholesterol [Mass/Vol] 196 mg/dL Normal 200 [facility] Comment on above: Order Comment: DR. Cassius RUIZ ORDERED LIPID,TSH,CMP,CBCD ALL THE OTHERS ARE DR. MARIE. Result Comment: <200 mg/dL Desirable 200-240 mg/dL Borderline >240 mg/dL High Risk Performed By: #### L 500.4100, L3300.0700, L503.6550, L100.0100, L300.3900, L503.6075, L501.9520, L500.4050, L3100.3425, L503.6150 #### [facility] [address] [place], [address] Cholesterol in HDL [Mass/Vol] 74 mg/dL Normal [facility] Comment on above: Order Comment: DR. Cassius RUIZ ORDERED LIPID,TSH,CMP,CBCD ALL THE OTHERS ARE DR. MARIE. Result Comment: The drugs N-Acetylcysteine and Metamizole may falsely depress this assay. Reference Range HDL <40 mg/dL Low HDL Cholesterol HDL >or= 60 mg/dL High HDL Cholesterol Performed By: #### L 500.4100, L3300.0700, L503.6550, L100.0100, L300.3900, L503.6075, L501.9520, L500.4050, L3100.3425, L503.6150 #### [facility] [address] [place], [address] Cholesterol in LDL [Mass/Vol] 102 mg/dL Normal 0-130 [facility] Comment on above: Order Comment: DR. Cassius RUIZ ORDERED LIPID,TSH,CMP,CBCD ALL THE OTHERS ARE DR. MARIE. Performed By: #### L 500.4100, L3300.0700, L503.6550, L100.0100, L300.3900, L503.6075, L501.9520, L500.4050, L3100.3425, L503.6150 #### [facility] [address] [place], [address] Cholesterol in VLDL [Mass/Vol] 20 mg/dL Normal 5-40 [facility] Comment on above: Order Comment: DR. Cassius RUIZ ORDERED LIPID,TSH,CMP,CBCD ALL THE OTHERS ARE DR. MARIE. Performed By: #### L 500.4100, L3300.0700, L503.6550, L100.0100, L300.3900, L503.6075, L501.9520, L500.4050, L3100.3425, L503.6150 #### [facility] [address] [place], [address] Triglyceride [Mass/Vol] 100 mg/dL Normal [facility] Comment on above: Order Comment: DR. Cassius RUIZ ORDERED LIPID,TSH,CMP,CBCD ALL THE OTHERS ARE DR. MARIE. Result Comment: The drugs N-Acetylcysteine and Metamizole may falsely depress this assay. Serum Triglycerides Reference Interval Normal <150 mg/dL Borderline high 150 - 199 mg/dL High 200 - 499 mg/dL Very High > or = 500 mg/dL Performed By: #### L 500.4100, L3300.0700, L503.6550, L100.0100, L300.3900, L503.6075, L501.9520, L500.4050, L3100.3425, L503.6150 #### [facility] [address] [place], [address] Prothrombin Time w/INRon INR Coag (PPP) [Relative time] 1.2 {INR} Normal [facility] Comment on above: Order Comment: DR. Cassius RUIZ ORDERED LIPID,TSH,CMP,CBCD ALL THE OTHERS ARE DR. MARIE. Performed By: #### L 500.4100, L3300.0700, L503.6550, L100.0100, L300.3900, L503.6075, L501.9520, L500.4050, L3100.3425, L503.6150 #### [facility] [address] [place], [place], [address] PT Coag (PPP) [Time] 15.1 s High 11.7-14.9 [facility] Comment on above: Order Comment: DR. Cassius RUIZ ORDERED LIPID,TSH,CMP,CBCD ALL THE OTHERS ARE DR. MARIE. Performed By: #### L 500.4100, L3300.0700, L503.6550, L100.0100, L300.3900, L503.6075, L501.9520, L500.4050, L3100.3425, L503.6150 #### [facility] [address] [place], [address] Thyroid Stim Hormone (TSH)on 11-25-2023 TSH 6.610 uIU/mL High 0.358-3.74 0 [facility] Comment on above: Order Comment: DR. Cassius RUIZ ORDERED LIPID,TSH,CMP,CBCD ALL THE OTHERS ARE DR. MARIE. Performed By: #### L 500.4100, L3300.0700, L503.6550, L100.0100, L300.3900, L503.6075, L501.9520, L500.4050, L3100.3425, L503.6150 #### [facility] [address] [place], [address] CNOVon 09-08-2023 CNOV Office Visit ([facility] ) ----- MACY MORALES ([id number]) 1955 Time Provider Department 09/08/23 12:00 PM BRUCE YU [facility] During your visit today, we recorded the following information about you: Temperature Pulse Respiration Blood pressure 98.7 degrees 78/minute 16/minute 146/92 Weight 85.1 kg Bruce Yu APRN.[employer] 09/08/2023 1:30 PM Signed Subjective HPI Nontoxic-appearing female presents urgent care chief complaint right hand or wrist injury. Duration of symptoms 2 days. Associated symptoms right wrist and hand pain. Patient states fell 2 days ago and landed on outstretched wrist. Presents today for evaluation. No numbness no tingling. No decrease sensation. Decreased range of motion due to tenderness. Does have swelling and bruising. Hwuod-sksa-bydaefvv. No fractures or surgeries in the past. Denies any other injuries. No head neck or back pain. 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 MEDICATIONS - amLODIPine (NORVASC) 5 mg tablet Take 5 mg by mouth once daily. - metoclopramide HCl (REGLAN) 5 mg tablet Take 5 mg by mouth three times a day. - albuterol HFA (PROVENTIL HFA, VENTOLIN HFA) 90 mcg/actuation inhaler Inhale 2 Puffs as instructed every 4 hours as needed for wheezing/shortness of breath. - albuterol (PROVENTIL) 2.5 mg /3 mL (0.083 %) nebulizer solution Use 3 mL via nebulizer every 4 hours as needed for wheezing/shortness of breath. Use over 5-15minutes. - atorvastatin (LIPITOR) 20 mg tablet Take 1 tablet by mouth daily at bedtime. For cholesterol. - pantoprazole DR (PROTONIX) 40 mg tablet Take 1 tablet by mouth once daily as needed. - alendronate (FOSAMAX) 70 mg tablet Take 1 tablet by mouth one time a week. Take with a full glass of water, on an empty stomach; do NOT lie down for 30minutes. - blood sugar diagnostic (TRUE METRIX GLUCOSE TEST STRIP) test strip Test blood sugar(s) 1 times daily. Dx: Type 2 DM - Controlled E11.9 Insulin: No - clotrimazole-betamethason e (LOTRISONE) cream Apply to affected area twice daily as needed. FAMILY HISTORY Problem Relation Age of Onset - No Known Problems Father - Aneurysm Mother - Cancer Brother - No Known Problems Maternal Grandmother - No Known Problems Maternal Grandfather - No Known Problems Paternal Grandmother - No Known Problems Paternal Grandfather - No Known Problems Child - No Known Problems Child - No Known Problems Child - Glaucoma No Family History - Macular Degen No Family History Social History Tobacco Use - Smoking status: Never Passive exposure: Never - Smokeless tobacco: Never Vaping Use - Vaping Use: Never used Substance Use Topics - Alcohol use: Not Currently - Drug use: Not Currently BP 146/92 Pulse 78 Temp 37.1 ?C (98.7 ?F) Resp 16 Wt 85.1 kg (187 lb 9.8 oz) SpO2 98% BMI 36.64 kg/m? Review of Systems Constitutional: Negative for chills, fever and malaise/fatigue. HENT: Negative for congestion, ear discharge, ear pain, sinus pain and sore throat. Eyes: Negative for blurred vision, pain, discharge and redness. Respiratory: Negative for cough, hemoptysis, sputum production, shortness of breath, wheezing and stridor. Cardiovascular: Negative for chest pain. Gastrointestinal: Negative for abdominal pain, diarrhea, nausea and vomiting. Musculoskeletal: Positive for falls and joint pain. Negative for back pain, myalgias and neck pain. Skin: Negative for itching and rash. Neurological: Negative for dizziness and headaches. Objective Physical Exam Constitutional: General: She is not in acute distress. Appearance: She is not toxic-appearing. HENT: Head: Normocephalic. Nose: Nose normal. Eyes: Pupils: Pupils are equal, round, and reactive to light. Cardiovascular: Rate and Rhythm: Normal rate. Pulmonary: Effort: Pulmonary effort is normal. No respiratory distress. Musculoskeletal: Right upper arm: Normal. Right elbow: No swelling. Normal range of motion. No tenderness. Right forearm: No tenderness or bony tenderness. Right wrist: Swelling, deformity, tenderness, bony tenderness and snuff box tenderness present. Decreased range of motion. Normal pulse. Right hand: Swelling, tenderness and bony tenderness present. Normal range of motion. Normal strength. Normal sensation. (more content not included)... Normal [facility] No Panel Informationon 09-07 IMPRESSION: No acute pathology. Equipment Superintendent: KATELYNN Transcribe Date/Time: Sep 08 2023 12:36P Dictated by : LEIGH ANN IRIZARRY DO This examination was interpreted and the report reviewed and electronically signed by: LEIGH ANN IRIZARRY DO on Sep 08 2023 12:39PM EST DIVISION OF RADIOLOGY Radiology Study observation (narrative) [facility] No Panel InformationOrdered By: [facility] Provider on 09-08-2023 [facility] XR HAND 3V PA/LAT/OBL RTon 0 09-08-2023 XR HAND 3V PA/LAT/OBL RT * * *Final Repo rt* * * DATE OF EXAM: Sep 08 2023 12:28PM WOX 5346 - XR HAND 3V PA/LAT/OBL RT / PROCEDURE REASON: multiple diagnoses * * * * Physician Interpretation * * * * RIGHT Hand and wrist HISTORY: 67 years old Clinical information: Injury of right wrist, initial encounter Pain of right hand TECHNIQUE: Images: XR HAND 3V PA/LAT/OBL RT, XR WRIST 4V PA/LAT/OBL/SCAPH RT Comparison: None. RESULT: Findings: Hand: No fractures or dislocations are seen. Wrist: No fractures or dislocations are seen. IMPRESSION: No acute pathology. Equipment Superintendent: KATELYNN Transcribe Date/Time: Sep 08 2023 12:36P Dictated by : LEIGH ANN IRIZARRY DO This examination was interpreted and the report reviewed and electronically signed by: LEIGH ANN IRIZARRY DO on Sep 08 2023 12:39PM EST [id number] Normal [facility] XR Hand - right PA and Later al and Obliqueon 09-08-2023 * * *Final Report* * * DATE OF EXAM: Sep 08 2023 12:28PM WOX 5346 - XR HAND 3V PA/LAT/OBL RT / PROCEDURE REASON: multiple diagnoses * * * * Physician Interpretation * * * * RIGHT Hand and wrist HISTORY: 67 years old Clinical information: Injury of right wrist, initial encounter Pain of right hand TECHNIQUE: Images: XR HAND 3V PA/LAT/OBL RT, XR WRIST 4V PA/LAT/OBL/SCAPH RT Comparison: None. RESULT: Findings: Hand: No fractures or dislocations are seen. Wrist: No fractures or dislocations are seen. DIVISION OF RADIOLOGY Provider, [facility] - 09/08/2023 * * *Final Report* * * DATE OF EXAM: Sep 08 2023 12:28PM WOX 5346 - XR HAND 3V PA/LAT/OBL RT / PROCEDURE REASON: multiple diagnoses * * * * Physician Interpretation * * * * RIGHT Hand and wrist HISTORY: 67 years old Clinical information: Injury of right wrist, initial encounter Pain of right hand TECHNIQUE: Images: XR HAND 3V PA/LAT/OBL RT, XR WRIST 4V PA/LAT/OBL/SCAPH RT Comparison: None. RESULT: Findings: Hand: No fractures or dislocations are seen. Wrist: No fractures or dislocations are seen. IMPRESSION IMPRESSION: No acute pathology. Equipment Superintendent[facility] Transcribe Date/Time: Sep 08 2023 12:36P Dictated by : LEIGH ANN IRIZARRY DO This examination was interpreted and the report reviewed and electronically signed by: LEIGH ANN IRIZARRY DO on Sep 08 2023 12:39PM [facility] XR WRIST 4V PA/LAT/OBL/SCAPH RTon 09-08-2023 XR WRIST 4V PA/LAT/OBL/SCAPH RT * * *Final Report* * * DATE OF EXAM: Sep 08 2023 12:28PM WOX 5273 - XR WRIST 4V PA/LAT/OBL/SCAPH RT / PROCEDURE REASON: multiple diagnoses * * * * Physician Interpretation * * * * RIGHT Hand and wrist HISTORY: 67 years old Clinical information: Injury of right wrist, initial encounter Pain of right hand TECHNIQUE: Images: XR HAND 3V PA/LAT/OBL RT, XR WRIST 4V PA/LAT/OBL/SCAPH RT Comparison: None. RESULT: Findings: Hand: No fractures or dislocations are seen. Wrist: No fractures or dislocations are seen. IMPRESSION: No acute pathology. Equipment Superintendent: KATELYNN Transcribe Date/Time: Sep 08 2023 12:36P Dictated by : LEIGH ANN IRIZARRY DO This examination was interpreted and the report reviewed and electronically signed by: LEIGH ANN IRIZARRY DO on Sep 08 2023 12:39PM EST [id number] Normal [facility] XR Wrist - right 4 Viewson 0 09-08-2023 * * *Final Report* * * DATE OF EXAM: Sep 08 2023 12:28PM WOX 5273 - XR WRIST 4V PA/LAT/OBL/SCAPH RT / PROCEDURE REASON: multiple diagnoses * * * * Physician Interpretation * * * * RIGHT Hand and wrist HISTORY: 67 years old Clinical information: Injury of right wrist, initial encounter Pain of right hand TECHNIQUE: Images: XR HAND 3V PA/LAT/OBL RT, XR WRIST 4V PA/LAT/OBL/SCAPH RT Comparison: None. RESULT: Findings: Hand: No fractures or dislocations are seen. Wrist: No fractures or dislocations are seen. DIVISION OF RADIOLOGY Provider, [facility] - 09/08/2023 * * *Final Report* * * DATE OF EXAM: Sep 08 2023 12:28PM WOX 5273 - XR WRIST 4V PA/LAT/OBL/SCAPH RT / PROCEDURE REASON: multiple diagnoses * * * * Physician Interpretation * * * * RIGHT Hand and wrist HISTORY: 67 years old Clinical information: Injury of right wrist, initial encounter Pain of right hand TECHNIQUE: Images: XR HAND 3V PA/LAT/OBL RT, XR WRIST 4V PA/LAT/OBL/SCAPH RT Comparison: None. RESULT: Findings: Hand: No fractures or dislocations are seen. Wrist: No fractures or dislocations are seen. IMPRESSION IMPRESSION: No acute pathology. Equipment Superintendent: [facility] Transcribe Date/Time: Sep 08 2023 12:36P Dictated by : LEIGH ANN IRIZARRY DO This examination was interpreted and the report reviewed and electronically signed by: LEIGH ANN IRIZARRY DO on Sep 08 2023 12:39PM [facility] ----- MORALESMACY QUILES ([id number]) 1955 F [place] Date Time Provider Department 08/10/23 ELDER REDDY INTMWS During your visit today, we recorded the following information about you: Varghese Mcmahan MA 08/10/2023 11:48 AM Signed Patient failed to cancel today's appointment with PCP and no showed. Letter printed and mailed. Varghese Mcmahan MA Allergies As of Date: 08/10/2023 (No Known Allergies) Date Reviewed: 07/13/2023 Reviewed by: Ana Browning, NAIL SPECIALIST.[employer]ET[employer] BUTTON PASTER - Fully Assessed Reason for Visit: No Show [1558] Prescriptions as of 08/10/2023 - amLODIPine (NORVASC) 5 mg tablet Take 5 mg by mouth once daily. - metoclopramide HCl (REGLAN) 5 mg tablet Take 5 mg by mouth three times a day. - albuterol HFA (PROVENTIL HFA, VENTOLIN HFA) 90 mcg/actuation inhaler Inhale 2 Puffs as instructed every 4 hours as needed for wheezing/shortness of breath. - albuterol (PROVENTIL) 2.5 mg /3 mL (0.083 %) nebulizer solution Use 3 mL via nebulizer every 4 hours as needed for wheezing/shortness of breath. Use over 5-15minutes. - atorvastatin (LIPITOR) 20 mg tablet Take 1 tablet by mouth daily at bedtime. For cholesterol. - pantoprazole DR (PROTONIX) 40 mg tablet Take 1 tablet by mouth once daily as needed. - alendronate (FOSAMAX) 70 mg tablet Take 1 tablet by mouth one time a week. Take with a full glass of water, on an empty stomach; do NOT lie down for 30minutes. - blood sugar diagnostic (TRUE METRIX GLUCOSE TEST STRIP) test strip Test blood sugar(s) 1 times daily. Dx: Type 2 DM - Controlled E11.9 Insulin: No - clotrimazole-betamethason e (LOTRISONE) cream Apply to affected area twice daily as needed. 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 Pulsatile tinnitus, right ear [H93.A1] 11/30/2022 Conductive hearing loss of right ear with unres*11/30/2022 Esophageal varices without bleeding (HCC) [I85.*07/13/2023 Portal hypertensive gastropathy (HCC) (HCC) [K*07/13/2023 Cirrhosis of liver without ascites (HCC) [K74.6*07/13/2023 Letter Text Encounter Status:Closed by VARGHESE MCMAHAN on 08/10/23 [facility] 07-16-2023 LEIGHA Telephone (INTMWS) ----- MACY MORALES ([id number]) 1955 [place] Date Time Provider Department 07/16/23 ANA BROWNINGWS During your visit today, we recorded the following information about you: Som Valadez RN 07/16/2023 1:36 PM Signed ----- Message from Ana Browning APRN.[employer] sent at 07/16/2023 12:34 PM EDT ----- Please let the patient know her chest x-ray was normal. Kidney function on labs is still decreased but improving. BNP slightly elevated indicating fluid overload secondary to IV fluids given during admission which is the most likely cause of the swelling and shortness of breath. Follow-up if swelling does not continue to improve or sooner if any worsening. Ana Browning APRN.[employer] BUTTON PASTER Som Valadez RN 07/16/2023 1:38 PM Signed Called and spoke with pt who speaks Marshallese. Went over results and Ana's information and instructions. Pt appeared to understand. She states the hospital gave her a lot, a lot of IV fluids. Pt will call back if swelling does not improve. Allergies As of Date: 07/16/2023 (No Known Allergies) Date Reviewed: 07/13/2023 Reviewed by: Ana Browning APRN.[employer]ETONE BUTTON PASTER - Fully Assessed Reason for Visit: Results [95] Prescriptions as of 07/16/2023 - amLODIPine (NORVASC) 5 mg tablet Take 5 mg by mouth once daily. - metoclopramide HCl (REGLAN) 5 mg tablet Take 5 mg by mouth three times a day. - albuterol HFA (PROVENTIL HFA, VENTOLIN HFA) 90 mcg/actuation inhaler Inhale 2 Puffs as instructed every 4 hours as needed for wheezing/shortness of breath. - albuterol (PROVENTIL) 2.5 mg /3 mL (0.083 %) nebulizer solution Use 3 mL via nebulizer every 4 hours as needed for wheezing/shortness of breath. Use over 5-15minutes. - atorvastatin (LIPITOR) 20 mg tablet Take 1 tablet by mouth daily at bedtime. For cholesterol. - pantoprazole DR (PROTONIX) 40 mg tablet Take 1 tablet by mouth once daily as needed. - alendronate (FOSAMAX) 70 mg tablet Take 1 tablet by mouth one time a week. Take with a full glass of water, on an empty stomach; do NOT lie down for 30minutes. - blood sugar diagnostic (TRUE METRIX GLUCOSE TEST STRIP) test strip Test blood sugar(s) 1 times daily. Dx: Type 2 DM - Controlled E11.9 Insulin: No - clotrimazole-betamethason e (LOTRISONE) cream Apply to affected area twice daily as needed. 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 Pulsatile tinnitus, right ear [H93.A1] 11/30/2022 Conductive hearing loss of right ear with unres*11/30/2022 Esophageal varices without bleeding (HCC) [I85.*07/13/2023 Portal hypertensive gastropathy (HCC) (HCC) [K*07/13/2023 Cirrhosis of liver without ascites (HCC) [K74.6*07/13/2023 Encounter Status:Closed by SOM VALADEZ on 07/16/23 Normal [facility] Basophil percentageOrdered B y: Ana Older on 07-13-2023 Hemoglobin (Bld) [Mass/Vol] 12.2 g/dL 12.0-15.0 [facility] WBC (Bld) [#/Vol] 5.2 10*3/uL 4.4-11.0 [facility] Basophil percentageOrdered B y: Elder Reddy on 07-13-2023 Chloride [Moles/Vol] 111 mmol/L 98-107 [facility] Glucose [Mass/Vol] 93 mg/dL 74-106 [facility] Potassium [Moles/Vol] 4.7 mmol/L 3.5-5.1 [facility] Sodium [Moles/Vol] 137 mmol/L 136-145 [facility] CNOVon 07-13-2023 CNOV Office Visit (INTMWS ) ----- MACY MORALES ([id number]) 1955 F [facility] Date Time Provider Department 07/13/23 9:40 AM ANA BROWNING INTMWS During your visit today, we recorded the following information about you: Pulse Respiration Blood pressure Weight 84/minute 16/minute 148/76 89.8 kg Ana Browning, NAIL SPECIALIST.[facility] 07/13/2023 11:38 AM Signed CC: Patient presents with: Hospital F/U [facility] Macy Morales is a 67 year old female who presents today with her daughter for above. Patient speaks some Marshallese, daughter is helping with any necessary translations. They declined historical interpreter phone. Patient was admitted to [facility] from 07/05 to 07/08 for VIKA. She presented with vomiting and hematemesis. Creatinine above 2 in ER and nephrology was consulted. Creatinine up to 2.91 on 07/06 despite IV hydration. Potassium was elevated, down to 4.7 after Kaexylate. Work-up with urine testing and ultrasound of the kidneys was normal. Lisinopril, glipizide and Metformin were discontinued. At discharge creatinine was 2.37 and potassium 4.3. GI was also consulted during admission for hematemesis and chronic diarrhea. CT indicated liver cirrhosis, Carvedilol was discontinued. EGD showed grade 1 varices lower third of esophagus and portal hypertensive gastropathy. Discharged home with Xifaxan, Norvasc 5 mg, Reglan and Protonix. Instructed to follow-up with nephrology and GI. Today patient reports generalized swelling including face, hands, abdomen and legs since discharge home. Swelling has improved slightly over the past few days. Associated with SOB with exertion, orthopnea, dry cough and wheezing. Legs feel heavy but no pain. Denies chest pain, palpitations, PND, and hemoptysis. She has no history of asthma or CHF. Still fatigued and appetite is decreased, mainly because of abdominal bloating causing her to feel full. She denies abdominal pain, nausea, or vomiting. Diarrhea is a little better. She is scheduled with GI . Friend but not until August, her other daughter works for him and they are planning on getting her in sooner. She was being evaluated for cirrhosis with [facility] gastro however it is more convenient to stay local instead of going to main campus. They have not scheduled an appointment yet with nephrology. All of her diabetes medications were discontinued during admission. She has been checking her blood sugars every morning since discharge, average in the 90's. She does not check her BP at home. Review of Systems Constitutional: Positive for activity change, appetite change and fatigue. Negative for chills, diaphoresis and fever. HENT: Negative for trouble swallowing. Gastrointestinal: Negative for blood in stool and constipation. Genitourinary: Negative for decreased urine volume and difficulty urinating. Neurological: Negative for dizziness, syncope, weakness and light-headedness. 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 MEDICATIONS amLODIPine (NORVASC) 5 mg tablet Take 5 mg by mouth once daily. metoclopramide HCl (REGLAN) 5 mg tablet Take 5 mg by mouth three times a day. carvedilol (COREG) 6.25 mg tablet Take 1 tablet by mouth two times a day with meals. albuterol HFA (PROVENTIL HFA, VENTOLIN HFA) 90 mcg/actuation inhaler Inhale 2 Puffs as instructed every 4 hours as needed for wheezing/shortness of breath. albuterol (PROVENTIL) 2.5 mg /3 mL (0.083 %) nebulizer solution Use 3 mL via nebulizer every 4 hours as needed for wheezing/shortness of breath. Use over 5-15minutes. atorvastatin (LIPITOR) 20 mg tablet Take 1 tablet by mouth daily at bedtime. For cholesterol. metFORMIN ER (GLUCOPHAGE XR) 500 mg 24 hr tablet Take 2 tablets by mouth two times a day with meals. glipiZIDE (GLUCOTROL XL) 2.5 mg 24 hr tablet Take 1 tablet by mouth once daily. (Patient not taking: Reported on 07/13/2023) pantoprazole DR (PROTONIX) 40 mg tablet Take 1 tablet by mouth once daily as needed. lisinopril (ZESTRIL) 20 mg tablet Take 1 tablet by mouth once daily. (Patient not taking: Reported on 07/13/2023) alendronate (FOSAMAX) 70 mg tablet Take 1 tablet by mouth one time a week. Take with a full glass of water, on an empty stomach; do NOT lie down for 30minutes. blood sugar diagnostic (TRUE METRIX GLUCOSE TEST STRIP) test strip Test blood sugar(s) 1 times daily. Dx: Type 2 DM - Controlled E11.9 Insulin: No clotrimazole-betamethason e (LOTRISONE) cream Apply to affected are (more content not included)... Normal [facility] Determination of erythrocyte mean corpuscular volume (MCV)Ordered By: Ana [facility] on 07-13-2023 MCV (RBC) [Entitic vol] 91.9 fL 81-99 [facility] Erythrocyte distribution wid th ratioOrdered By: Naa Older on 07-13-2023 Erythrocyte distribution width (RBC) [Ratio] 14.5 % 11.6-14.6 [facility] Erythrocyte distribution wid th standard deviationOrdered By: [facility] on 07-13-2023 Erythrocyte distribution width (RBC) [Entitic vol] 49.0 fL 35.1-43.9 [facility] Hematocrit Auto (Bld) [Volum e fraction]Ordered By: [facility] on 07-13-2023 Hematocrit (Bld) [Volume fraction] 36.1 % 37-47 [facility] Laboratory - Chemistry and C hemistry - challengeOrdered By: Ana Mccarty on 07-13-2023 Natriuretic peptide B (Bld) [Mass/Vol] 220.8 pg/mL 0-100 [facility] Laboratory - Chemistry and C hemistry - challengeOrdered By: Elder Reddy on 07-13-2023 CO2 [Moles/Vol] 22.0 mmol/L 21.0-32.0 [facility] Urea nitrogen/Creatinine [Mass ratio] 9.6 mg/mg 10-20 [facility] Laboratory - Hematology and Cell countsOrdered By: Ana Mccarty on 07-13-2023 MCH (RBC) [Entitic mass] 31.0 pg 27.0-32.0 [facility] MCHC (RBC) [Mass/Vol] 33.8 g/dL 32-36 [facility] Platelet mean volume (Bld) [Entitic vol] 12.1 fL 6.2-12.0 [facility] Platelets (Bld) [#/Vol] 83 10*3/uL 150-450 [facility] No Panel InformationOrdered By: Elder Reddy on 07-13-2023 Estimated GFR (MDRD) Amer 29 mL/min >60 [facility] Comment on above: GFR Calc Estimated GFR (MDRD) Non-Af Amer 24 mL/min >60 [facility] Comment on above: Non- GFR Calc RBC Auto (Bld) [#/Vol]Ordere d By: Ana Mccarty on 07-13-2023 RBC (Bld) [#/Vol] 3.93 10*6/uL 4.2-5.4 [facility] Serum or plasma calcium cheri urement (mass/volume)Ordered By: Elder Reddy on 07-13-2023 Calcium [Mass/Vol] 9.4 mg/dL 8.5-10.1 [facility] Serum or plasma creatinine m easurement (mass/volume)Ordered By: Elder Reddy on 07-13-2023 Creatinine [Mass/Vol] 2.18 mg/dL 0.55-1.02 [facility] Comment on above: The validity of the calculated GFR & GFRAA in patients over 70 years has not been determined. Clinical correlation is essential. Serum or plasma urea nitroge n measurement (mass/volume)Ordered By: Elder Reddy on 07-13-2023 Urea nitrogen [Mass/Vol] 21 mg/dL 7-18 [facility] Thin prep Papanicolaou smear with manual screeningOrdered By: Elder Reddy on 07-13-2023 Thin prep Papanicolaou smear with manual screening 4 5-15 [facility] XR CHEST 2V FRONTAL/LATon XR CHEST 2V FRONTAL/LAT * * *Final Repor t* * * DATE OF EXAM: Jul 13 2023 11:28AM WOX [id number] - XR CHEST 2V FRONTAL/LAT / PROCEDURE REASON: Shortness of breath * * * * Physician Interpretation * * * * EXAM TITLE: XR CHEST 2V FRONTAL/LAT EXAM DATE/TIME: 07/13/2023 11:28 AM COMPARISON: Chest x-ray on 05/03/2023 CLINICAL INDICATION/HISTORY: Shortness of breath RESULT: Lines, tubes, and devices: None. Lungs and pleura: No consolidation. No lung mass. No pleural effusion or pneumothorax. Cardiomediastinal silhouette: Stable cardiomediastinal silhouette. Other: There are degenerative changes in the spine. IMPRESSION: Stable exam without acute findings. Equipment Superintendent: KATELYNN Transcribe Date/Time: Jul 13 2023 11:27A Dictated by : JADE FISHER MD This examination was interpreted and the report reviewed and electronically signed by: JADE FISHER MD on Jul 13 2023 11:28AM EST [id number] Normal [facility] XR Chest PA and Lateralon IMPRESSION: Stable exam without acute findings. Equipment Superintendent: KATELYNN Transcribe Date/Time: Jul 13 2023 11:27A Dictated by : JADE FISHER MD This examination was interpreted and the report reviewed and electronically signed by: JADE FISHER MD on Jul 13 2023 11:28AM EST DIVISION OF RADIOLOGY * * *Final Report* * * DATE OF EXAM: Jul 13 2023 11:28AM WOX [id number] - XR CHEST 2V FRONTAL/LAT / PROCEDURE REASON: Shortness of breath * * * * Physician Interpretation * * * * EXAM TITLE: XR CHEST 2V FRONTAL/LAT EXAM DATE/TIME: 07/13/2023 11:28 AM COMPARISON: Chest x-ray on 05/03/2023 CLINICAL INDICATION/HISTORY: Shortness of breath RESULT: Lines, tubes, and devices: None. Lungs and pleura: No consolidation. No lung mass. No pleural effusion or pneumothorax. Cardiomediastinal silhouette: Stable cardiomediastinal silhouette. Other: There are degenerative changes in the spine. DIVISION OF RADIOLOGY Provider, Temo Mir - 07/13/2023 * * *Final Report* * * DATE OF EXAM: Jul 13 2023 11:28AM WOX 5291 - XR CHEST 2V FRONTAL/LAT / PROCEDURE REASON: Shortness of breath * * * * Physician Interpretation * * * * EXAM TITLE: XR CHEST 2V FRONTAL/LAT EXAM DATE/TIME: 07/13/2023 11:28 AM COMPARISON: Chest x-ray on 05/03/2023 CLINICAL INDICATION/HISTORY: Shortness of breath RESULT: Lines, tubes, and devices: None. Lungs and pleura: No consolidation. No lung mass. No pleural effusion or pneumothorax. Cardiomediastinal silhouette: Stable cardiomediastinal silhouette. Other: There are degenerative changes in the spine. IMPRESSION IMPRESSION: Stable exam without acute findings. Equipment Superintendent: KATELYNN Transcribe Date/Time: Jul 13 2023 11:27A Dictated by : JADE FISHER MD This examination was interpreted and the report reviewed and electronically signed by: JADE FISHER MD on Jul 13 2023 11:28AM EST [facility] Radiology Study observation (narrative) [facility] XR Chest PA and LateralOrder ed By: [facility] Provider on 07-13-2023 [facility] Absolute lymphocyte countOrd ered By: Myrna Delgado on 07-09-2023 Lymphocytes Auto (Unsp spec) [#/Vol] 1.49 10*3/uL 0.83-4.51 [facility] Automated lymphocyte count a s percentage of total leukocytesOrdered By: Myrna Delgado on 07-09-2023 Lymphocytes/100 WBC Auto (Unsp spec) 29.6 % 19-41 [facility] Basophil percentageOrdered B y: Myrna Delgado on 07-09-2023 Basophil percentage 3.0 mg/dL 2.5-4.9 [facility] Basophils/100 WBC (Bld) 0.6 % 0-1 [facility] Chloride [Moles/Vol] 117 mmol/L 98-107 [facility] Eosinophils/100 WBC (Bld) 5.8 % 0-5 [facility] Glucose [Mass/Vol] 82 mg/dL 74-106 [facility] Hemoglobin (Bld) [Mass/Vol] 11.6 g/dL 12.0-15.0 [facility] Monocytes/100 WBC (Bld) 11.1 % 0-10 [facility] Neutrophils (Bld) [#/Vol] 2.7 10*3/uL 2.0-7.7 [facility] Neutrophils/100 WBC (Bld) 52.5 % 47-70 [facility] Potassium [Moles/Vol] 4.3 mmol/L 3.5-5.1 [facility] Sodium [Moles/Vol] 139 mmol/L 136-145 [facility] WBC (Bld) [#/Vol] 5.0 10*3/uL 4.4-11.0 [facility] Determination of erythrocyte mean corpuscular volume (MCV)Ordered By: Myrna Delgado on 07-09-2023 MCV (RBC) [Entitic vol] 94.2 fL 81-99 [facility] Erythrocyte distribution wid th ratioOrdered By: Myrna Delgado on 07-09-2023 Erythrocyte distribution width (RBC) [Ratio] 15.1 % 11.6-14.6 [facility] Erythrocyte distribution wid th standard deviationOrdered By: Myrna Delgado on 07-09-2023 Erythrocyte distribution width (RBC) [Entitic vol] 52.2 fL 35.1-43.9 [facility] Hematocrit Auto (Bld) [Volum e fraction]Ordered By: Myrna Delgado on 07-09-2023 Hematocrit (Bld) [Volume fraction] 35.5 % 37-47 [facility] Immature granulocytes/100 WB C Auto (Bld)Ordered By: Myrna Delgado on 07-09-2023 Immature granulocytes/100 WBC (Bld) 0.400 % 0.0-0.9 [facility] Comment on above: IG% - Immature Granu locytes (promyelocytes, myelocytes and metamyelocytes) > 1% indicates that a LEFT SHIFT is Present. Laboratory - Chemistry and C hemistry - challengeOrdered By: Myrna Delgado on 07-09-2023 CO2 [Moles/Vol] 15.0 mmol/L 21.0-32.0 [facility] Urea nitrogen/Creatinine [Mass ratio] 10.5 mg/mg 10-20 [facility] Laboratory - Hematology and Cell countsOrdered By: Myrna Delgado on 07-09-2023 MCH (RBC) [Entitic mass] 30.8 pg 27.0-32.0 [facility] MCHC (RBC) [Mass/Vol] 32.7 g/dL 32-36 [facility] Nucleated RBC/100 WBC (Bld) [Ratio] 0 % 0-5 [facility] Platelet mean volume (Bld) [Entitic vol] 12.3 fL 6.2-12.0 [facility] Platelets (Bld) [#/Vol] 55 10*3/uL 150-450 [facility] No Panel InformationOrdered By: Myrna Delgado on 07-09-2023 Estimated Creatinine Clearance Calc 24.04 ml/min [facility] Estimated GFR (MDRD) Amer 26 mL/min >60 [facility] Comment on above: GFR Calc Estimated GFR (MDRD) Non-Af Amer 22 mL/min >60 [facility] Comment on above: Non- GFR Calc RBC Auto (Bld) [#/Vol]Ordere d By: Myrna Delgado on 07-09-2023 RBC (Bld) [#/Vol] 3.77 10*6/uL 4.2-5.4 [facility] Serum or plasma calcium cheri urement (mass/volume)Ordered By: Myrna Delgado on 07-09-2023 Calcium [Mass/Vol] 8.1 mg/dL 8.5-10.1 [facility] Serum or plasma creatinine m easurement (mass/volume)Ordered By: Myrna Delgado on 07-09-2023 Creatinine [Mass/Vol] 2.37 mg/dL 0.55-1.02 [facility] Comment on above: The validity of the calculated GFR & GFRAA in patients over 70 years has not been determined. Clinical correlation is essential. Serum or plasma urea nitroge n measurement (mass/volume)Ordered By: Myrna Delgado on 07-09-2023 Urea nitrogen [Mass/Vol] 25 mg/dL 7-18 [facility] Thin prep Papanicolaou smear with manual screeningOrdered By: Myrna Delgado on 07-09-2023 Thin prep Papanicolaou smear with manual screening 2.9 g/dL 3.2-5.0 [facility] Basophil percentageOrdered B y: Yecenia Quinonez on 07-08-2023 LDH [Catalytic activity/Vol] 304 U/L 84-246 [facility] Laboratory - Chemistry and C hemistry - challengeOrdered By: Yecenia Quinonez on 07-08-2023 Sodium (U) [Moles/Vol] 44 mmol/L Not Establ. [facility] No Panel InformationOrdered By: Yecenia Quinonez on 07-08-2023 Haptoglobin 38 mg/dL 37-355 [facility] Comment on above: Performed at: [place] [id number] Director: Aaron Ackerman PhD, Phone: [phone] Albumin Elph [Mass/Vol]Order ed By: Santino Marie on 07-07-2023 Albumin [Mass/Vol] 3.4 g/dL 2.9-4.4 [facility] Basophil percentageOrdered B y: Santino Marie on 07-07-2023 Ammonia (P) [Moles/Vol] 14.0 umol/L 11-32 [facility] Amylase [Catalytic activity/Vol] 67 U/L 25-115 [facility] Clostridioides difficile nuc leic acid assay by PCROrdered By: Stephanie Han on 07-07-2023 C. difficile DNA CHIVO+probe Ql (Unsp spec) [facility] Interpretation of serum or p lasma protein pattern by immunofixation (narrative resultOrdered By: Santino Marie on 07-07-2023 Protein Fractions Immunofixation Angel [Interp] Not Observed g/dL Not Observed [facility] Iron measurement (mass/mass) Ordered By: Santino Marie on 07-07-2023 Iron (Unsp spec) [Mass/Mass] 91 ug/dL 50-170 [facility] Laboratory - Chemistry and C hemistry - challengeOrdered By: Santino Marie on 07-07-2023 Ferritin [Mass/Vol] 107 ng/mL 8-252 [facility] Lipase [Catalytic activity/Vol] 39 U/L 13-75 [facility] Comment on above: Please note:LIPASE r evised reference range effective 22. New Lipase methodology. Expected to produce lower values than the previous assay method. NEW Reference Range: 13 - 75 U/L No Panel InformationOrdered By: Santino Marie on 07-07-2023 Addendum Document Comment . [facility] Comment on above: Protein electrophore sis scan will follow via computer,mail, or console assembler delivery. Atypical p-ANCA <1:20 titer Neg:<1:20 [facility] Comment on above: The atypical pANCA p attern has been observed in asignificant percentage of patients with ulcerative colitis,primary sclerosing cholangitis and autoimmune hepatitis. Centromere B Antibody <0.2 AI 0.0-0.9 [facility] Ceruloplasmin 28.5 mg/dL 19.0-39.0 [facility] Comment on above: Performed at: [address] [id number] Director: Aaron Ackerman PhD, Phone: [phone] at: - [facility] [id number] Director: Lizzeth Dumont MD, Phone: [phone] Immunoglobulin E 104 IU/mL 6-495 [facility] Immunoglobulin M 156 mg/dL 26-217 [facility] MADDY-1 Antibody <0.2 AI 0.0-0.9 [facility] GOLF COU[employer]SE EQUIPMENT OPERATOR Antibody <0.2 AI 0.0-0.9 [facility] SM Antibody <0.2 AI 0.0-0.9 [facility] SS-A/Ro IgG Antibody < 0.2 AI 0.0-0.9 [facility] SS-B/La IgG Antibody < 0.2 AI 0.0-0.9 [facility] Total Iron Binding Capacity 365 ug/dL 250-450 [facility] Tumor Marker Alpha Fetoprotein 4.9 ng/mL 0.0-9.2 [facility] Comment on above: [employer] El ectrochemiluminescence Immunoassay(ECLIA)Values obtained with different assay methods or kits cannotbe used interchangeably. Results cannot be interpreted asabsolute evidence of the presence or absence of malignantdisease.This test is not interpretable in females. Ova and parasitesOrdered By: Stephanie Han on 07-07-2023 Ova and parasites identified LM Nom (Unsp spec) [facility] Serum DNA double strand anti body assay (units/volume)Ordered By: Santino Marie on 07-07-2023 DNA double strand Ab Qn (S) [IU]/mL 0-9 [facility] Comment on above: Negative <5 Equivoca l 5 - 9 Positive >9 Serum Scl-70 antibody assay (units/volume)Ordered By: Santino Marie on 07-07-2023 SCL-70 extractable nuclear Ab Qn (S) <0.2 AI 0.0-0.9 [facility] Serum [id number] me asurementOrdered By: Santino Marie on 07-07-2023 Alpha 1 antitrypsin [Mass/Vol] 170 mg/dL 101-187 [facility] Comment on above: Performed at: [address] [id number] Director: Aaron Ackerman PhD, Phone: [phone] Serum [id number] measu rement by electrophoresisOrdered By: Santino Marie on 07-07-2023 Alpha 1 globulin Elph [Mass/Vol] 0.3 g/dL 0.0-0.4 [facility] Alpha 1 globulin Elph [Mass/Vol] 0.5 g/dL 0.4-1.0 [facility] Serum classic neutrophil cyt oplasmic antibody assay (units/volume)Ordered By: Santino Marie on 07-07-2023 Neutrophil cytoplasmic Ab.classic Qn (S) <1:20 titer Neg:<1:20 [facility] Serum globulin measurement ( mass/volume)Ordered By: Santino Marie on 07-07-2023 Globulin (S) [Mass/Vol] 3.0 g/dL 2.2-3.9 [facility] Serum mitochondria antibody detectionOrdered By: Santino Marie on 07-07-2023 Mitochondria Ab Ql (S) <20.0 Units 0.0-20.0 [facility] Comment on above: Negative 0.0 - 20.0 Equivocal 20.1 - 24.9 Positive >24.9Mitochondrial (M2) Antibodies are found in 90-96% ofpatients with primary biliary cirrhosis. Serum or plasma IgA measurem ent (mass/volume)Ordered By: Santino Marie on 07-07-2023 IgA [Mass/Vol] 373 mg/dL 87-352 [facility] [facility] Serum or plasma IgG measurem ent (mass/volume)Ordered By: Santino Marie on 07-07-2023 IgG [Mass/Vol] 1298 mg/dL [id number] [facility] Serum or plasma actin IgG an tibody assay (units/volume)Ordered By: Santino Marie on 07-07-2023 Actin IgG Qn 7 Units 0-19 [facility] Comment on above: Negative 0 - 19 Weak positive 20 - 30 Moderate to strong positive >30 Actin Antibodies are found in 52-85% of patients with autoimmune hepatitis or chronic active hepatitis and in 22% of patients with primary biliary cirrhosis. Serum or plasma beta globuli n measurement by electrophoresis (mass/volume)Ordered By: Santino Marie on 07-07-2023 Beta globulin Elph [Mass/Vol] 1.0 g/dL 0.7-1.3 [facility] Serum or plasma gamma globul in measurement by electrophoresis (mass/volume)Ordered By: Santino Marie on 07-07-2023 Gamma globulin Elph [Mass/Vol] 1.3 g/dL 0.4-1.8 [facility] Serum or plasma immunoelectr ophoresis interpretation (nominal result)Ordered By: Santino Marie on 07-07-2023 Interpretation IEP [Interp] Comment . [facility] Comment on above: No monoclonality det ected. Serum or plasma iron saturat ion measurement (mass fraction)Ordered By: Santino Marie on 07-07-2023 Iron saturation [Mass fraction] 24.9 % 15.0-55.0 [facility] Serum perinuclear neutrophil cytoplasmic antibody titer by immunofluorescenceOrdered By: Santino Marie on 07-07-2023 Neutrophil cytoplasmic Ab.perinuclear IF (S) [Titer] <1:20 titer Neg:<1:20 [facility] Comment on above: The presence of posi tive fluorescence exhibiting P-ANCA orC-ANCA patterns alone is not specific for the diagnosis ofWegener's Granulomatosis (WG) or microscopic polyangiitis.Decisions about treatment should not be based solely onANCA IFA results. The International ANCA Group Consensusrecommends follow up testing of positive sera with both OH-3 and MPO-ANCA enzyme immunoassays. As many as 5% serumsamples are positive only by EIA. Ref. AM J Clin [id number];111:507-513. Stool enteric pathogen panel by probe and target amplification methodOrdered By: Stephanie Han on 07-07-2023 Gastrointestinal pathogens panel CHIVO+probe (Stl) [facility] Stool lactoferrin detection by immunoassayOrdered By: Stpehanie Han on 07-07-2023 Lactoferrin IA Ql (Stl) [facility] Thin prep Papanicolaou smear with manual screeningOrdered By: Santino Marie on 07-07-2023 Thin prep Papanicolaou smear with manual screening 1.2 0.7-1.7 [facility] Thin prep Papanicolaou smear with manual screeningOrdered By: Myrna Delgado on 07-07-2023 Thin prep Papanicolaou smear with manual screening 4 5-15 [facility] Total protein bloodOrdered B y: Santino Marie on 07-07-2023 Protein [Mass/Vol] 6.4 g/dL 6.0-8.5 [facility] Absolute lymphocyte countOrd ered By: Mayo Mccullough on 07-06-2023 Lymphocytes Auto (Unsp spec) [#/Vol] 1.13 10*3/uL 0.83-4.51 [facility] Activated partial thrombopla stin time (aPTT) in platelet poor plasma by coagulation aOrdered By: Mayo Mccullough on 07-06-2023 aPTT Coag (PPP) [Time] 36.7 s 24.1-36.2 [facility] Automated lymphocyte count a s percentage of total leukocytesOrdered By: Mayo Mccullough on 07-06-2023 Lymphocytes/100 WBC Auto (Unsp spec) 19.0 % 19-41 [facility] Basophil percentageOrdered B y: Stephanie Han on 07-06-2023 Bilirubin [Mass/Vol] 1.30 mg/dL 0.20-1.00 [facility] Comment on above: For patients on eltr ombopag therapy, use of Dimension [place] TBIL is not recommended. Lactate [Moles/Vol] 1.0 mmol/L 0.4-2.0 [facility] Protein [Mass/Vol] 6.6 g/dL 6.4-8.2 [facility] Basophil percentageOrdered B y: Mayo Mccullough on 07-06-2023 Basophil percentage 0-5 SEEN /hpf 0-5 [facility] Basophils/100 WBC (Bld) 0.3 % 0-1 [facility] Bilirubin [Mass/Vol] 1.30 mg/dL 0.20-1.00 [facility] Comment on above: For patients on eltr ombopag therapy, use of Dimension [place] TBIL is not recommended. Chloride [Moles/Vol] 108 mmol/L 98-107 [facility] Eosinophils/100 WBC (Bld) 3.7 % 0-5 [facility] Glucose [Mass/Vol] 116 mg/dL 74-106 [facility] Comment on above: Fasting Glucose resu lt from 100 to 125 mg/dL suggests IMPAIRED HOMEOSTASIS per A.D.A. criteria. Hemoglobin (Bld) [Mass/Vol] 13.1 g/dL 12.0-15.0 [facility] Monocytes/100 WBC (Bld) 11.1 % 0-10 [facility] Neutrophils (Bld) [#/Vol] 3.9 10*3/uL 2.0-7.7 [facility] Neutrophils/100 WBC (Bld) 65.4 % 47-70 [facility] Potassium [Moles/Vol] 4.8 mmol/L 3.5-5.1 [facility] Protein [Mass/Vol] 7.7 g/dL 6.4-8.2 [facility] Sodium [Moles/Vol] 135 mmol/L 136-145 [facility] WBC (Bld) [#/Vol] 6.0 10*3/uL 4.4-11.0 [facility] Bilirubin Test strip Ql (U)O rdered By: Mayo Mccullough on 07-06-2023 Bilirubin Ql (U) Negative Negative [facility] CNPNon 07-06-2023 CNPN Telephone (INTMWS) ----- MACY MORALES ([id number]) 1955 F [place] Date Time Provider Department 07/06/23 ELDER REDDY INTMWS During your visit today, we recorded the following information about you: Cassius Ayers RN 07/06/2023 10:44 AM Signed Daughter, Ingris, reports patient missed her appt today because she was seen in [facility] ER and admitted to ICU. Ingris is faxing the lab results to pcp. Reports patient was admitted for several reasons, including colitis, and kidney fx at 25%. Reports Dr. Marie will see patient today in the ICU. Albina Garrison LPN 07/06/2023 12:20 PM Signed labs rec'd via fax. To pcp to review. Although will try to make contact with pt when she is d/c from [facility] for a hospital follow up. Allergies As of Date: 07/06/2023 (No Known Allergies) Date Reviewed: 06/29/2023 Reviewed by: Carlos Enrique Casey MA - Fully Assessed Reason for Visit: Patient Update [1234] Prescriptions as of 07/27/2023 - amLODIPine (NORVASC) 5 mg tablet Take 5 mg by mouth once daily. - metoclopramide HCl (REGLAN) 5 mg tablet Take 5 mg by mouth three times a day. - albuterol HFA (PROVENTIL HFA, VENTOLIN HFA) 90 mcg/actuation inhaler Inhale 2 Puffs as instructed every 4 hours as needed for wheezing/shortness of breath. - albuterol (PROVENTIL) 2.5 mg /3 mL (0.083 %) nebulizer solution Use 3 mL via nebulizer every 4 hours as needed for wheezing/shortness of breath. Use over 5-15minutes. - atorvastatin (LIPITOR) 20 mg tablet Take 1 tablet by mouth daily at bedtime. For cholesterol. - pantoprazole DR (PROTONIX) 40 mg tablet Take 1 tablet by mouth once daily as needed. - alendronate (FOSAMAX) 70 mg tablet Take 1 tablet by mouth one time a week. Take with a full glass of water, on an empty stomach; do NOT lie down for 30minutes. - blood sugar diagnostic (TRUE METRIX GLUCOSE TEST STRIP) test strip Test blood sugar(s) 1 times daily. Dx: Type 2 DM - Controlled E11.9 Insulin: No - clotrimazole-betamethason e (LOTRISONE) cream Apply to affected area twice daily as needed. 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 Pulsatile tinnitus, right ear [H93.A1] 11/30/2022 Conductive hearing loss of right ear with unres*11/30/2022 Encounter Status:Closed by Cassius AYERS on 07/27/23 Normal [facility] Determination of erythrocyte mean corpuscular volume (MCV)Ordered By: Mayo Mccullough on 07-06-2023 MCV (RBC) [Entitic vol] 91.2 fL 81-99 [facility] Direct bilirubinOrdered By: Mayo Mccullough on 07-06-2023 Bilirubin.direct [Mass/Vol] 0.55 mg/dL 0.00-0.30 [facility] Erythrocyte distribution wid th ratioOrdered By: Mayo Mccullough on 07-06-2023 Erythrocyte distribution width (RBC) [Ratio] 14.6 % 11.6-14.6 [facility] Erythrocyte distribution wid th standard deviationOrdered By: Mayo Mccullough on 07-06-2023 Erythrocyte distribution width (RBC) [Entitic vol] 49.2 fL 35.1-43.9 [facility] Hematocrit Auto (Bld) [Volum e fraction]Ordered By: Mayo Mccullough on 07-06-2023 Hematocrit (Bld) [Volume fraction] 39.6 % 37-47 [facility] Immature granulocytes/100 WB C Auto (Bld)Ordered By: Mayo Mccullough on 07-06-2023 Immature granulocytes/100 WBC (Bld) 0.500 % 0.0-0.9 [facility] Comment on above: IG% - Immature Granu locytes (promyelocytes, myelocytes and metamyelocytes) > 1% indicates that a LEFT SHIFT is Present. Ketones Test strip Ql (U)Ord ered By: Mayo Mccullough on 07-06-2023 Ketones Ql (U) Negative Negative [facility] Laboratory - Chemistry and C hemistry - challengeOrdered By: Stephanie Han on 07-06-2023 Albumin/Globulin [Mass ratio] 0.9 {ratio} 0.9-2.4 [facility] ALP [Catalytic activity/Vol] 157 U/L [facility] ALT [Catalytic activity/Vol] 46 U/L [facility] Globulin (S) [Mass/Vol] 3.4 g/dL 2.2-4.2 [facility] Magnesium [Mass/Vol] 2.0 mg/dL 1.6-2.6 [facility] - Chemistry and C hemistry - challengeOrdered By: Mayo Mccullough on 07-06-2023 ALP [Catalytic activity/Vol] 197 U/L - [facility] ALT [Catalytic activity/Vol] 52 U/L [facility] CO2 [Moles/Vol] 21.0 mmol/L 21.0-32.0 [facility] Globulin (S) [Mass/Vol] 4.1 g/dL 2.2-4.2 [facility] Lipase [Catalytic activity/Vol] 43 U/L 13-75 [facility] Comment on above: Please note:LIPASE r evised reference range effective 22. New Lipase methodology. Expected to produce lower values than the previous assay method. NEW Reference Range: 13 - 75 U/L Urea nitrogen/Creatinine [Mass ratio] 10.4 mg/mg 10-20 [facility] - CoagulationOrde red By: Mayo Mccullough on 07-06-2023 INR Coag (Bld) [Relative time] 1.1 {INR} [facility] PT Coag (PPP) [Time] 14.4 s 11.7-14.9 [facility] - Hematology and Cell countsOrdered By: Maoy Mccullough on 07-06-2023 MCH (RBC) [Entitic mass] 30.2 pg 27.0-32.0 [facility] MCHC (RBC) [Mass/Vol] 33.1 g/dL 32-36 [facility] Nucleated RBC/100 WBC (Bld) [Ratio] 0 % 0-5 [facility] Platelet mean volume (Bld) [Entitic vol] 12.4 fL 6.2-12.0 [facility] Platelets (Bld) [#/Vol] 59 10*3/uL 150-450 [facility] Mucus LM Ql (Urine sed)Order ed By: Mayo Mccullough on 07-06-2023 Mucus Ql (Urine sed) 0 SEEN /hpf [facility] Nitrite Test strip Ql (U)Ord ered By: Mayo Mccullough on 07-06-2023 Nitrite Ql (U) Negative Negative [facility] No Panel InformationOrdered By: Stephanie Han on 07-06-2023 Hepatitis A IgM Antibody Negative Negative [facility] Hepatitis B Core IgM Antibody Negative Negative [facility] Hepatitis C Antibody (EIA) Non-Reactive Non Reactive [facility] Hepatitis C Antibody Comment Comment . [facility] Comment on above: Not infected with HC V unless early or acute infection issuspected (which may be delayed in an immunocompromisedindividual), or other evidence exists to indicate HCVinfection.Performed at: [facility] [id number] [place], [place] [id number] Director: Aaron Ackerman PhD, Phone: [phone] No Panel InformationOrdered By: Mayo Mccullough on 07-06-2023 Urine RBC 0 SEEN /hpf 0-5 [facility] Estimated Creatinine Clearance Calc 18.78 ml/min [facility] Estimated GFR (MDRD) Amer 21 mL/min >60 [facility] Comment on above: GFR Calc Estimated GFR (MDRD) Non-Af Amer 17 mL/min >60 [facility] Comment on above: Non- GFR Calc Protein Test strip Ql (U)Ord ered By: Mayo Mccullough on 07-06-2023 Protein Ql (U) Negative Negative [facility] RBC Auto (Bld) [#/Vol]Ordere d By: Mayo Mccullough on 07-06-2023 RBC (Bld) [#/Vol] 4.34 10*6/uL 4.2-5.4 [facility] Serum or plasma calcium cheri urement (mass/volume)Ordered By: Mayo Mccullough on 07-06-2023 Calcium [Mass/Vol] 8.4 mg/dL 8.5-10.1 [facility] Serum or plasma creatinine m easurement (mass/volume)Ordered By: Mayo Mccullough on 07-06-2023 Creatinine [Mass/Vol] 2.88 mg/dL 0.55-1.02 [facility] Comment on above: The validity of the calculated GFR & GFRAA in patients over 70 years has not been determined. Clinical correlation is essential. Serum or plasma hepatitis B virus surface antigen detection by immunoassayOrdered By: Stephanie Han on 07-06-2023 HBV surface Ag IA Ql Negative Negative [facility] Serum or plasma urea nitroge n measurement (mass/volume)Ordered By: Mayo Mccullough on 07-06-2023 Urea nitrogen [Mass/Vol] 30 mg/dL 7-18 [facility] Squamous epithelial cells de tection in urine sediment by light microscopyOrdered By: Mayo Mccullough on 07-06-2023 Epithelial cells.squamous LM Ql (Urine sed) 0-5 SEEN /hpf 5-10 [facility] Stool gastrointestinal hemog lobin detection by immunologic methodOrdered By: Mayo Mccullough on 07-06-2023 Lower GI hemoglobin IA Ql (Stl) [facility] Thin prep Papanicolaou smear with manual screeningOrdered By: Stephanie Han on 07-06-2023 Thin prep Papanicolaou smear with manual screening 57 U/L [facility] Thin prep Papanicolaou smear with manual screeningOrdered By: Mayo Mccullough on 07-06-2023 Thin prep Papanicolaou smear with manual screening 3.6 g/dL 3.2-5.0 [facility] Thin prep Papanicolaou smear with manual screening 67 U/L [facility] Thin prep Papanicolaou smear with manual screening 6 5-15 [facility] Urine blood detectionOrdered By: Mayo Mccullough on 07-06-2023 RBC Ql (U) Negative Negative [facility] Urine clarityOrdered By: Christiano Mccullough on 07-06-2023 Clarity (U) Clear Clear [facility] Urine color determinationOrd ered By: Mayo Mccullough on 07-06-2023 Color (U) Yellow Yellow [facility] Urine glucose detectionOrder ed By: Mayo Mccullough on 07-06-2023 Glucose Ql (U) Normal mg/dl Normal [facility] Urine leukocyte esterase det ection by dipstickOrdered By: Mayo Mccullough on 07-06-2023 Leukocyte esterase Test strip Ql (U) 25 /ul Negative [facility] Urine pHOrdered By: Mayo mayer on 07-06-2023 pH (U) 5.0 [pH] 5.0 - 8.0 [facility] Urine sediment bacteria coun t by microscopy (number/high power field)Ordered By: Mayo Mccullough on 07-06-2023 Bacteria LM.HPF (Urine sed) [#/Area] 0 /[HPF] None Seen [facility] Urine specific gravity measu rementOrdered By: Mayo Mccullough on 07-06-2023 Specific gravity (U) [Rel density] 1.010 1.002-1.03 0 [facility] Urine urobilinogen measureme ntOrdered By: Mayo Mccullough on 07-06-2023 Urobilinogen Ql (U) Normal mg/dl Normal [facility] Whole blood hemoglobin A1c/t otal hemoglobin ratio (mass fraction)Ordered By: Stephanie Han on 07-06-2023 HbA1c (Bld) [Mass fraction] 5.7 % 3.8-5.6 [facility] Comment on above: Normal < 5.7 % Predi abetic 5.7 - 6.4 % Diabetic >or= 6.5 % Please note range changes. Aby 07-05-2023 CNPN Telephone (INTMWS) ----- MACY MORALES ([id number]) 1955 F [place] Date Time Provider Department 07/05/23 ELDER REDDY INTMWS During your visit today, we recorded the following information about you: Serena Ramirez, PAIGE 07/05/2023 8:24 AM Signed Patient's daughter Ingris calls and states that patient had molars pulled out last Wednesday. Daughter reports that patient has had issues with molars bleeding since procedure. Daughter calling to schedule appointment with provider. Advised daughter that she needs to call dentist and let dentist know what is going on so that dentist can look into patient's mouth and fix situation. Daughter reports that patient is supposed to be getting more dental work done that she does not want to get done. Daughter is concerned because patient has a low platelet count history and wants to schedule appointment with PCP. Appointment scheduled tomorrow however explained to daughter that dentist needs to be called. Daughter voiced understanding. Serena Ramirez RN Allergies As of Date: 07/05/2023 (No Known Allergies) Date Reviewed: 06/29/2023 Reviewed by: Carlos Enrique Casey MA - Fully Assessed Reason for Visit: Patient Update [1234] Prescriptions as of 07/05/2023 - carvedilol (COREG) 6.25 mg tablet Take 1 tablet by mouth two times a day with meals. - albuterol HFA (PROVENTIL HFA, VENTOLIN HFA) 90 mcg/actuation inhaler Inhale 2 Puffs as instructed every 4 hours as needed for wheezing/shortness of breath. - albuterol (PROVENTIL) 2.5 mg /3 mL (0.083 %) nebulizer solution Use 3 mL via nebulizer every 4 hours as needed for wheezing/shortness of breath. Use over 5-15minutes. - atorvastatin (LIPITOR) 20 mg tablet Take 1 tablet by mouth daily at bedtime. For cholesterol. - metFORMIN ER (GLUCOPHAGE XR) 500 mg 24 hr tablet Take 2 tablets by mouth two times a day with meals. - glipiZIDE (GLUCOTROL XL) 2.5 mg 24 hr tablet Take 1 tablet by mouth once daily. - pantoprazole DR (PROTONIX) 40 mg tablet Take 1 tablet by mouth once daily as needed. - lisinopril (ZESTRIL) 20 mg tablet Take 1 tablet by mouth once daily. - alendronate (FOSAMAX) 70 mg tablet Take 1 tablet by mouth one time a week. Take with a full glass of water, on an empty stomach; do NOT lie down for 30minutes. - blood sugar diagnostic (TRUE METRIX GLUCOSE TEST STRIP) test strip Test blood sugar(s) 1 times daily. Dx: Type 2 DM - Controlled E11.9 Insulin: No - clotrimazole-betamethason e (LOTRISONE) cream Apply to affected area twice daily as needed. 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 Pulsatile tinnitus, right ear [H93.A1] 11/30/2022 Conductive hearing loss of right ear with unres*11/30/2022 Encounter Status:Closed by ANA BROWNING on 07/05/23 Normal [facility] CNOVon 06-29-2023 CNOV Office Visit (GASTA5 ) ----- MACY MORALES ([id number]) 1955 F [facility] Date Time Provider Department 06/29/23 3:05 PM CECILIA POWERS GASTA5 During your visit today, we recorded the following information about you: Temperature Pulse Blood pressure Weight 97.6 degrees 84/minute 134/54 84.4 kg Height 1.524 m Cecilia Powers MD 06/30/2023 10:07 AM Signed FOLLOW-UP VISIT NAME: Macy Morales CLINIC NO: [id number] HPI: Macy Morales is a 67 year old female is here on follow up for abnormal liver enzymes. Complications of liver disease include none. --PMHx of type 2 diabetes, hypertension, hypercholesterolemia, abnormal liver enzymes, elevated TSH and prior right-sided Dover's palsy. --Initially seen by Dr. Powers on 10/06/22 presents for evaluation of abnormal liver enzymes and thrombocytopenia. Since last visit: --RUQ US: Coarse hepatic echotexture with mildly nodular hepatic contour suspect for cirrhosis. --JACINTO, Antimitochondrial AB, SM AB negative --Fibroscan: FS =34.3 kPA. The CAP score is 274 and corresponds to steatosis grade of S2. This reading corresponds: A 17% chance of stage 0-2 fibrosis A 83% chance of stage 3-4 fibrosis (advanced fibrosis) A 61% chance of stage 4 fibrosis (cirrhosis). Spleen top normal in size. REVIEW OF SYSTEMS GENERAL: No unexplained weight changes or fevers. HEENT: Negative for severe headaches, negative for changes in hearing or vision. RESPIRATORY: Negative for coughing, wheezing or significant dyspnea. CARDIOVASCULAR: Negative for chest pain or heart palpitations. GASTROINTESTINAL: Negative for rectal bleeding or black tarry stools. Current Outpatient Medications Medication Sig Dispense Refill albuterol HFA (PROVENTIL HFA, VENTOLIN HFA) 90 mcg/actuation inhaler Inhale 2 Puffs as instructed every 4 hours as needed for wheezing/shortness of breath. 1 Each 0 albuterol (PROVENTIL) 2.5 mg /3 mL (0.083 %) nebulizer solution Use 3 mL via nebulizer every 4 hours as needed for wheezing/shortness of breath. Use over 5-15minutes. 3 mL 0 atorvastatin (LIPITOR) 20 mg tablet Take 1 tablet by mouth daily at bedtime. For cholesterol. 90 tablet 3 metFORMIN ER (GLUCOPHAGE XR) 500 mg 24 hr tablet Take 2 tablets by mouth two times a day with meals. 360 tablet 3 glipiZIDE (GLUCOTROL XL) 2.5 mg 24 hr tablet Take 1 tablet by mouth once daily. [address] (PROTONIX) 40 mg tablet Take 1 tablet by mouth once daily as needed. 90 tablet 3 lisinopril (ZESTRIL) 20 mg tablet Take 1 tablet by mouth once daily. 90 tablet 3 alendronate (FOSAMAX) 70 mg tablet Take 1 tablet by mouth one time a week. Take with a full glass of water, on an empty stomach; do NOT lie down for 30minutes. 12 tablet 3 blood sugar diagnostic (TRUE METRIX GLUCOSE TEST STRIP) test strip Test blood sugar(s) 1 times daily. Dx: Type 2 DM - Controlled E11.9 Insulin: No 100 Strip 3 clotrimazole-betamethason e (LOTRISONE) cream Apply to affected area twice daily as needed. 45 g 2 No current facility-administered medications for this visit. ALLERGIES No Known Allergies Social History Tobacco Use Smoking status: Never Passive exposure: Never Smokeless tobacco: Never Vaping Use Vaping Use: Never used Substance Use Topics Alcohol use: Not Currently Drug use: Not Currently 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 Conductive hearing loss of right ear with unrestricted hearing of left ear 11/30/2022 Controlled type 2 diabetes mellitus without complication, without long-term current use of insulin ([facility]) 04/28/2021 COVID-19 02/05/2020 Obesity, Class II, BMI 35-39.9 07/23/2021 Primary hypertension 07/23/2021 Pure hypercholesterolemia 11/10/2019 @SHX@ FAMILY HISTORY Problem Relation Age of Onset No Known Problems Father Aneurysm Mother Cancer Brother No Known Problems Maternal Grandmother No Known Problems Maternal Grandfather No Known Problems Paternal Grandmother No Known Problems Paternal Grandfather No Known Problems Child No Known Problems Child No Known Problems Child Glaucoma No Family History Macular Degen No Family History PHYSICAL EXAM BP 134/54 Pulse 84 Temp (Src) 97.6 (Temporal) Ht 5' 0 (1.52m) Wt 186 lb 1.1 oz (84.4kg) SpO2 98% BMI 36.34 kg/(m2). General Appearance: Well appearing, alert, in no acute distress, well-hydrated, well nourished. Eyes: PERRLA, conjunctiva and sclera normal Oropharynx: Lips, tongue, and oral mucosa normal. There is no thrush or oral ulcers. Lungs:breath sounds clear to auscultation bilaterally, no crackles, rhonchi, or wheezes Heart: regular rate and rhythm, no murmurs or gallops. Abdomen: not distended, normal bowel sounds, soft and depressible, no guarding or rebound, no palpable mass, no organomegaly Extremities: no cyanosis or edema Skin: no jaundice, no spider angiom (more content not included)... Normal [facility] CNOVon 05-03-2023 CNOV Office Visit (UCWSTR ) ----- MACY MORALES ([id number]) 1955 F [place] Date Time Provider Department 05/03/23 1:15 PM PEPE MICHEL [facility] [[email or web address]] During your visit today, we recorded the following information about you: Temperature Pulse Respiration Blood pressure 97.8 degrees 81/minute 16/minute 128/82 Weight 84.3 kg Pepe Michel, NAIL SPECIALIST.[employer]ET[employer] BUTTON PASTER 05/03/2023 1:45 PM Signed Subjective Cough Associated symptoms include chest pain (with cough), chills, shortness of breath and wheezing. Macy Morales is a 67 year old female who presents with productive cough x 3 weeks Has had chest congestion, wheezing, shortness of breath and body aches also Has been using OTC cough remedies at home without improvement Has had a fever of 101-102 degrees F. Review of Systems Constitutional: Positive for chills, fever and malaise/fatigue. Respiratory: Positive for cough, hemoptysis, sputum production, shortness of breath and wheezing. Cardiovascular: Positive for chest pain (with cough). Musculoskeletal: Positive for back pain. BP 128/82 Pulse 81 Temp 36.6 ?C (97.8 ?F) (Tympanic) Resp 16 Wt 84.3 kg (185 lb 12.8 oz) SpO2 99% BMI 36.29 kg/m? 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 MEDICATIONS atorvastatin (LIPITOR) 20 mg tablet Take 1 tablet by mouth daily at bedtime. For cholesterol. metFORMIN ER (GLUCOPHAGE XR) 500 mg 24 hr tablet Take 2 tablets by mouth two times a day with meals. glipiZIDE (GLUCOTROL XL) 2.5 mg 24 hr tablet Take 1 tablet by mouth once daily. pantoprazole DR (PROTONIX) 40 mg tablet Take 1 tablet by mouth once daily as needed. lisinopril (ZESTRIL) 20 mg tablet Take 1 tablet by mouth once daily. alendronate (FOSAMAX) 70 mg tablet Take 1 tablet by mouth one time a week. Take with a full glass of water, on an empty stomach; do NOT lie down for 30minutes. blood sugar diagnostic (TRUE METRIX GLUCOSE TEST STRIP) test strip Test blood sugar(s) 1 times daily. Dx: Type 2 DM - Controlled E11.9 Insulin: No clotrimazole-betamethason e (LOTRISONE) cream Apply to affected area twice daily as needed. FAMILY HISTORY Problem Relation Age of Onset No Known Problems Father Aneurysm Mother Cancer Brother No Known Problems Maternal Grandmother No Known Problems Maternal Grandfather No Known Problems Paternal Grandmother No Known Problems Paternal Grandfather No Known Problems Child No Known Problems Child No Known Problems Child Glaucoma No Family History Macular Degen No Family History Social History Tobacco Use Smoking status: Never Smokeless tobacco: Never Vaping Use Vaping Use: Never used Substance Use Topics Alcohol use: Not Currently Drug use: Not Currently Objective Physical Exam Vitals and nursing note reviewed. Constitutional: General: She is not in acute distress. Appearance: Normal appearance. She is not ill-appearing. HENT: Mouth/Throat: Pharynx: No posterior oropharyngeal erythema. Cardiovascular: Rate and Rhythm: Normal rate and regular rhythm. Heart sounds: Normal heart sounds. Pulmonary: Effort: Pulmonary effort is normal. No respiratory distress. Breath sounds: Examination of the right-upper field reveals wheezing. Examination of the left-upper field reveals wheezing. Examination of the right-lower field reveals wheezing. Examination of the left-lower field reveals wheezing. Wheezing present. No rales. Skin: General: Skin is warm and dry. Findings: No erythema or rash. Neurological: Mental Status: She is alert. ASSESSMENT/PLAN: 1. Cough present for greater than 3 weeks - ICD9: 786.2, ICD10: R05.8 (primary diagnosis) - XR CHEST 2V FRONTAL/LAT IMPRESSION: No acute radiographic abnormality. Equipment Superintendent: KATELYNN Transcribe Date/Time: May 03 2023 1:32P Dictated by : STEPHANIE YOUNG MD 2. Viral bronchitis - ICD9: 466.0, ICD10: J20.8 - PREDNISONE 10 MG TABLET - ALBUTEROL SULFATE HFA 90 MCG/ACTUATION AEROSOL INHALER - INHALATIONAL SPACING DEVICE - nebulizer sent home with patient. May use q 4 to 6 hours PRN. - Follow-up with your PCP in 3-5 days if symptoms have not improved or sooner if symptoms worsen - Discussed red flags and need for immediate medical evaluation if any occur. - Discussed supportive care treatment with fluids, rest and analgesia. - Discussed expected course of illness Pepe Michel APRN.Pepe Rasmussen APRN.DONNY 05/03/19 (more content not included)... [facility] XR CHEST 2V FRONTAL/LATon XR CHEST 2V FRONTAL/LAT * * *Final Repor t* * * DATE OF EXAM: May 03 2023 1:17PM [id number] - XR CHEST 2V FRONTAL/LAT / PROCEDURE REASON: Cough present for greater than 3 weeks * * * * Physician Interpretation * * * * EXAMINATION: CHEST RADIOGRAPH (2 VIEW FRONTAL and LATERAL) CLINICAL HISTORY: Cough present for greater than 3 weeks MQ: XC2_6 EXAM DATE/TIME: 05/03/2023 1:17 PM COMPARISON: 03/06/2023 RESULT: Lines, tubes, and devices: None. Lungs and pleura: No consolidation. No lung mass. No pleural effusion. No pneumothorax. Cardiomediastinal silhouette: Stable cardiomediastinal silhouette. Bones and soft tissues: Unremarkable. IMPRESSION: No acute radiographic abnormality. Equipment Superintendent: [facility] Transcribe Date/Time: May 03 2023 1:32P Dictated by : STEPHANIE YOUNG MD This examination was interpreted and the report reviewed and electronically signed by: STEPHANIE YOUNG MD on May 03 2023 1:33PM EST [id number] Normal [facility] XR Chest PA and Lateralon IMPRESSION: No acute radiographic abnormality. Equipment Superintendent: [facility] Transcribe Date/Time: May 03 2023 1:32P Dictated by : STEPHANIE YOUNG MD This examination was interpreted and the report reviewed and electronically signed by: STEPHANIE YOUNG MD on May 03 2023 1:33PM EST DIVISION OF RADIOLOGY * * *Final Report* * * DATE OF EXAM: May 03 2023 1:17PM [id number] - XR CHEST 2V FRONTAL/LAT / PROCEDURE REASON: Cough present for greater than 3 weeks * * * * Physician Interpretation * * * * EXAMINATION: CHEST RADIOGRAPH (2 VIEW FRONTAL & LATERAL) CLINICAL HISTORY: Cough present for greater than 3 weeks MQ: XC2_6 EXAM DATE/TIME: 05/03/2023 1:17 PM COMPARISON: 03/06/2023 RESULT: Lines, tubes, and devices: None. Lungs and pleura: No consolidation. No lung mass. No pleural effusion. No pneumothorax. Cardiomediastinal silhouette: Stable cardiomediastinal silhouette. Bones and soft tissues: Unremarkable. DIVISION OF RADIOLOGY Provider, Temo Mir - 05/03/2023 * * *Final Report* * * DATE OF EXAM: May 03 2023 1:17PM [id number] - XR CHEST 2V FRONTAL/LAT / PROCEDURE REASON: Cough present for greater than 3 weeks * * * * Physician Interpretation * * * * EXAMINATION: CHEST RADIOGRAPH (2 VIEW FRONTAL & LATERAL) CLINICAL HISTORY: Cough present for greater than 3 weeks MQ: XC2_6 EXAM DATE/TIME: 05/03/2023 1:17 PM COMPARISON: 03/06/2023 RESULT: Lines, tubes, and devices: None. Lungs and pleura: No consolidation. No lung mass. No pleural effusion. No pneumothorax. Cardiomediastinal silhouette: Stable cardiomediastinal silhouette. Bones and soft tissues: Unremarkable. IMPRESSION IMPRESSION: No acute radiographic abnormality. Equipment Superintendent: KATELYNN Transcribe Date/Time: May 03 2023 1:32P Dictated by : STEPHANIE YOUNG MD This examination was interpreted and the report reviewed and electronically signed by: STEPHANIE YOUNG MD on May 03 2023 1:33PM [facility] Radiology Study observation (narrative) [facility] XR Chest PA and LateralOrder ed By: [facility] Tele[facility] (INTMWS) ----- MACY MORALES ([id number]) 1955 F [place] Date Time Provider Department 04/27/23 ELDER REDDY INTMWS During your visit today, we recorded the following information about you: Joana Gillette LPN 04/27/2023 2:33 PM Signed ----- Message from Elder Reddy MD sent at 04/27/2023 12:42 PM EST ----- Negative. Continue symptom care. Joana Gillette LPN 04/27/2023 2:40 PM Signed Left message to call AND speak to nurse re: results. Rere Kennedy LPN, RN 04/27/2023 2:56 PM Signed Pt called and is notified of providers results and instructions. Pt voices understanding. Rere Samuel RN Allergies As of Date: 04/27/2023 (No Known Allergies) Date Reviewed: 04/26/2023 Reviewed by: Joana Gillette LPN - Fully Assessed Reason for Visit: Results [95] Prescriptions as of 04/27/2023 - atorvastatin (LIPITOR) 20 mg tablet Take 1 tablet by mouth daily at bedtime. For cholesterol. - metFORMIN ER (GLUCOPHAGE XR) 500 mg 24 hr tablet Take 2 tablets by mouth two times a day with meals. - glipiZIDE (GLUCOTROL XL) 2.5 mg 24 hr tablet Take 1 tablet by mouth once daily. - pantoprazole DR (PROTONIX) 40 mg tablet Take 1 tablet by mouth once daily as needed. - lisinopril (ZESTRIL) 20 mg tablet Take 1 tablet by mouth once daily. - alendronate (FOSAMAX) 70 mg tablet Take 1 tablet by mouth one time a week. Take with a full glass of water, on an empty stomach; do NOT lie down for 30minutes. - blood sugar diagnostic (TRUE METRIX GLUCOSE TEST STRIP) test strip Test blood sugar(s) 1 times daily. Dx: Type 2 DM - Controlled E11.9 Insulin: No - clotrimazole-betamethason e (LOTRISONE) cream Apply to affected area twice daily as needed. 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] 06/23/2022 Pulsatile tinnitus, right ear [H93.A1] 11/30/2022 Conductive hearing loss of right ear with unres*11/30/2022 Encounter Status:Closed by RERE SAMUEL on 04/27/23 [facility] CNOVon 04-26-2023 CNOV Office Visit (INTMWS ) ----- MACY MORALES ([id number]) 1955 F [facility] Date Time Provider Department 04/26/23 5:00 PM ELDER REDDY INTCassiusWS During your visit today, we recorded the following information about you: Temperature Pulse Blood pressure Weight 98.6 degrees 86/minute 144/70 85.3 kg Elder Reddy MD 04/26/2023 5:47 PM Signed This note was created using Firebaser[employer]. Subjective Macy Morales is a 67 year old female here with her spouse we booked in due to illness. She started having fever, cough, sore throat, myalgias 4 days ago. Family members including spouse also got the virus. Her symptoms were improving. Her diabetes mellitus and hypertension were controlled. She was scheduled for dental work. Left arm pain was sort of better. Review of Systems Respiratory: Negative for shortness of breath. Cardiovascular: Negative. Gastrointestinal: Negative for diarrhea, nausea and vomiting. Neurological: Negative for dizziness and headaches. ACTIVE PROBLEM LIST Controlled Type 2 Diabetes Mellitus Without Complication, Without Long-Term Current Use of Insulin (Hcc) Obesity, Class II, Bmi 35-39.9 Primary Hypertension Pure Hypercholesterolemia Abnormal Liver Enzymes Thrombocytopenia (Hcc) Right-Sided Dover's Palsy Pulsatile Tinnitus, Right Ear Conductive Hearing Loss of Right Ear With Unrestricted Hearing of Left Ear Social History Tobacco Use Smoking status: Never Smokeless tobacco: Never Vaping Use Vaping Use: Never used Substance Use Topics Alcohol use: Not Currently Drug use: Not Currently Current Outpatient Medications Medication Sig atorvastatin (LIPITOR) 20 mg tablet Take 1 tablet by mouth daily at bedtime. For cholesterol. metFORMIN ER (GLUCOPHAGE XR) 500 mg 24 hr tablet Take 2 tablets by mouth two times a day with meals. glipiZIDE (GLUCOTROL XL) 2.5 mg 24 hr tablet Take 1 tablet by mouth once daily. pantoprazole DR (PROTONIX) 40 mg tablet Take 1 tablet by mouth once daily as needed. lisinopril (ZESTRIL) 20 mg tablet Take 1 tablet by mouth once daily. alendronate (FOSAMAX) 70 mg tablet Take 1 tablet by mouth one time a week. Take with a full glass of water, on an empty stomach; do NOT lie down for 30minutes. blood sugar diagnostic (TRUE METRIX GLUCOSE TEST STRIP) test strip Test blood sugar(s) 1 times daily. Dx: Type 2 DM - Controlled E11.9 Insulin: No clotrimazole-betamethason e (LOTRISONE) cream Apply to affected area twice daily as needed. No current facility-administered medications for this visit. Objective BP 144/70 (BP Site: Right Arm, BP Position: Sitting, BP Cuff Size: Large Adult) Pulse 86 Temp 37 ?C (98.6 ?F) (Temporal) Wt 85.3 kg (188 lb) BMI 36.72 kg/m? Physical Exam Constitutional: General: She is not in acute distress. Appearance: She is not ill-appearing. HENT: Head: Normocephalic. Right Ear: Tympanic membrane normal. Left Ear: Tympanic membrane normal. Nose: Congestion present. No rhinorrhea. Mouth/Throat: Mouth: Mucous membranes are moist. Pharynx: Oropharynx is clear. No oropharyngeal exudate or posterior oropharyngeal erythema. Eyes: General: No scleral icterus. Conjunctiva/sclera: Conjunctivae normal. Cardiovascular: Rate and Rhythm: Normal rate and regular rhythm. Heart sounds: Murmur heard. Systolic murmur is present with a grade of 1/6. Pulmonary: Effort: No respiratory distress. Breath sounds: No wheezing or rales. Musculoskeletal: Cervical back: No tenderness. Right lower leg: No edema. Left lower leg: No edema. Lymphadenopathy: Cervical: No cervical adenopathy. Neurological: Mental Status: She is alert. Assessment and Plan 1. Flu-like symptoms - ICD9: 780.99, ICD10: R68.89 (primary diagnosis) - COVID AND INFLUENZA A/B AND RSV NAAT, ROUTINE 2. Controlled type 2 diabetes mellitus without complication, without long-term current use of insulin (HCC) - ICD9: 250.00, ICD10: E11.9 - Controlled - Continue current medications - HGB A1C 3. Primary hypertension - ICD9: 401.9, ICD10: I10 - Factors affecting control: acute illness. - Continue current medications 4. Pure hypercholesterolemia - ICD9: 272.0, ICD10: E78.00 - COMP METABOLIC PANEL - LIPID PANEL BASIC 5. Thrombocytopenia (HCC) - ICD9: 287.5, ICD10: D69.6 - CBC Elder Reddy MD Allergies As of Date: 04/26/2023 (No Known Allergies) Date Reviewed: 04/26/2023 Reviewed by: Joana Gillette LPN - Fully Assessed Reason for Visit: Follow Up [171] Primary Visit Diagnosis:Flu-like symptoms [R68.89] Other Visit Diagnoses:Controlled type 2 diabetes mellitus without complication, without long-term current use of insulin (HCC) [E11.9] Primary hypertension [I10] Pure hypercholesterolemia [E78.00] Thrombocytopenia (HCC) [D69.6] Order(s):COVID AND INFLUENZA A/B AND RSV NAAT, ROUTINE [SQCVFLRS] Order #: (more content not included)... [facility] COVID AND INFLUENZA A/B AND RSV NAAT, ROUTINEon 04-26-2023 SARS-CoV-2 (COVID-19) RNA CHIVO+probe Ql (Unsp spec) COVID 19 RESULT: Not detected The method used is RT-PCR or an equivalent NAAT method. Reference Range (the expected result in uninfected individuals): Not detected INFLUENZA A PCR: Not detected INFLUENZA B PCR: Not detected RSV PCR: Not detected [facility] Comment on above: Performed By: #### C VFLRS ####[facility] LABEVAN [id number] [address] [place] Aby 04-22-2023 CNPN Telephone (INTMWS) ----- MORALESMACY QUILES ([id number]) 1955 F [place] Date Time Provider Department 04/22/23 ELDER REDDY INTMWS During your visit today, we recorded the following information about you: Albina Garrison LPN 04/22/2023 9:53 AM Signed Rec'd fax from [place]. Pt is having 5 extractions. Pcp reviewed form. [facility] completed [facility] Allergies As of Date: 04/22/2023 (No Known Allergies) Date Reviewed: 04/05/2023 Reviewed by: Katherine Goldstein OD - Fully Assessed Reason for Visit: Forms [913] Cmt: [place] [facility] form Prescriptions as of 04/22/2023 - atorvastatin (LIPITOR) 20 mg tablet Take 1 tablet by mouth daily at bedtime. For cholesterol. - metFORMIN ER (GLUCOPHAGE XR) 500 mg 24 hr tablet Take 2 tablets by mouth two times a day with meals. - glipiZIDE (GLUCOTROL XL) 2.5 mg 24 hr tablet Take 1 tablet by mouth once daily. - pantoprazole DR (PROTONIX) 40 mg tablet Take 1 tablet by mouth once daily as needed. - lisinopril (ZESTRIL) 20 mg tablet Take 1 tablet by mouth once daily. - alendronate (FOSAMAX) 70 mg tablet Take 1 tablet by mouth one time a week. Take with a full glass of water, on an empty stomach; do NOT lie down for 30minutes. - blood sugar diagnostic (TRUE METRIX GLUCOSE TEST STRIP) test strip Test blood sugar(s) 1 times daily. Dx: Type 2 DM - Controlled E11.9 Insulin: No - clotrimazole-betamethason e (LOTRISONE) cream Apply to affected area twice daily as needed. 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 Thrombocytopenia. TECHNIQUE: Sonography of the right upper quadrant and spleen was performed. Images were obtained and stored in a permanent archive and interpreted remotely. MQ: URUQ_2 COMPARISON: Ultrasound dated September 21, 2022 RESULT: Pancreas: Normal sonographic appearance. Portions obscured: tail Liver: Echotexture: Coarse Echogenicity: Normal Surface contour: Mildly nodular Lesions: None. Biliary: No intrahepatic biliary duct dilation. CBD: 0.2 cm at the hilum. Gallbladder: Normal caliber -Contents: No cholelithiasis -Wall: Normal -Other: No pericholecystic fluid. Right Kidney: Measures 11.9 cm in longitudinal dimension. Normal cortical echogenicity. No hydronephrosis. Left kidney: Measures 11.3 cm in longitudinal dimension. Normal cortical echogenicity. No hydronephrosis. Spleen: Top normal in size measuring 12.5 cm in craniocaudad dimension. No sonographic evidence of focal splenic lesion. Ascites: None. IMPRESSION: Coarse hepatic echotexture with mildly nodular hepatic contour suspect for cirrhosis. Spleen top normal in size. Equipment Superintendent: KATELYNN Transcribe Date/Time: Apr 12 2023 10:32A Dictated by : MANUELITO FARR MD This examination was interpreted and the report reviewed and electronically signed by: MANUELITO FARR MD on Apr 12 2023 10:35AM EST [id number] [facility] US ABD SPLEEN -NBon 04-12-19 US ABD SPLEEN -NB * * *Final Report* * * DATE OF EXAM: Apr 12 2023 10:32AM [facility] 1232 - US ABD SPLEEN -NB / PROCEDURE REASON: multiple diagnoses * * * * Physician Interpretation * * * * Please see accession number [id number] for the report of this US ABD SPLEEN-NB. Equipment Superintendent: [facility] Transcribe Date/Time: May 06 2023 10:06A Dictated by : MANUELITO FARR MD This examination was interpreted and the report reviewed and electronically signed by: MANUELITO FARR MD on May 06 2023 10:08AM EST [id number] [facility] ALBUMIN/CREAT RATIO RND URon 03-23-2023 Albumin DL <= 20 mg/L (U) [Mass/Vol] mg/dL [facility] Comment on above: Order Comment: Speci men Type: URINE SPECIMENOrdering Facility: [facility] Address: [address] [place] [address] Performed By: #### U ACR ####[facility] LABCLIA [id number] [place] [address] [place] Albumin/Creatinine (U) [Mass ratio] <13 Normal <30 [facility] Comment on above: Order Comment: Speci men Type: URINE SPECIMENOrdering Facility: [facility] Address: [address] [place] [address] Result Comment: Adul t Male and Female Nephrotic Criteria: <30 mg/g is considered normal to mildly increased 30-300 mg/g is considered moderately increased >300 mg/g is considered severely increased KDIGO. (2013). KDIGO 2012 Clinical Practice Guideline for the Evaluation and Management of Chronic Kidney Disease. Official Journal of the International Society of Nephrology, 3(1), 1-150. Performed By: #### U ACR ####[facility] LABCLIA [id number] [address] [place] OF [facility] Creatinine (U) [Mass/Vol] 94.3 mg/dL Normal 20.0-300.0 [facility] Comment on above: Order Comment: Speci men Type: URINE SPECIMENOrdering Facility: [facility] Address: [place] [address] Performed By: #### U ACR ####[facility] LABCLIA [id number] [address] OF [facility] CNOVon 03-23-2023 CNOV Office Visit (INTMWS ) ----- MACY MORALES ([id number]) 1955 F [place] Date Time Provider Department 03/23/23 10:00 AM ANA BROWNING INTMWS During your visit today, we recorded the following information about you: Pulse Respiration Blood pressure Weight 76/minute 14/minute 122/68 83 kg Ana Browning, NAIL SPECIALIST.ACETONE BUTTON PASTER 03/23/2023 10:14 AM Signed CC: Patient presents with: F/U 6 months: C/o left arm pain for 2 weeks. No know in jury. Has taken tylenol with minimal relief. PJ Morales is a 67 year old female who presents today for above. Reports pain in the left upper arm for two weeks Located: biceps Described as: aching Cause: denies injury, strenuous activities or heavy lifting Pain is aggravated by: lifting arm up or picking something up Pain is alleviated by rest, avoiding aggravating movements Denies numbness, tingling, weakness, swelling, redness Treatments tried: Tylenol with temporary relief Ever had pain like this before: no Diabetes: Home blood sugar readings: fasting average around 110-120 Hypoglycemia: No She is compliant with medication(s) and is tolerating med(s) without any side effects. Increased thirst: No Urinary frequency: No Nocturia: No Fatigue: No Unintentional weight loss: No Blurred vision: No Numbness, tingling or pain in extremities: No Ulcers or sores on feet: No Last Ophthalmology exam: within the past 12 months Patient's last HgA1C : Hemoglobin A1C (%) Date Value 11/19/2022 5.9 04/15/2022 6.8 Thrombocytopenia: chronic. Bruises easily but denies hematuria, melena, hematochezia, bleeding gums. Review of Systems Constitutional: Negative for chills, diaphoresis, fatigue, fever and unexpected weight change. Respiratory: Negative for cough, shortness of breath and wheezing. Cardiovascular: Negative for chest pain, palpitations and leg swelling. 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 MEDICATIONS lisinopril (ZESTRIL) 20 mg tablet Take 1 tablet by mouth once daily. alendronate (FOSAMAX) 70 mg tablet Take 1 tablet by mouth one time a week. Take with a full glass of water, on an empty stomach; do NOT lie down for 30minutes. pantoprazole DR (PROTONIX) 40 mg tablet Take 1 tablet by mouth once daily as needed. blood sugar diagnostic (TRUE METRIX GLUCOSE TEST STRIP) test strip Test blood sugar(s) 1 times daily. Dx: Type 2 DM - Controlled E11.9 Insulin: No glipiZIDE (GLUCOTROL XL) 2.5 mg 24 hr tablet Take 1 tablet by mouth once daily. atorvastatin (LIPITOR) 10 mg tablet Take 1 tablet by mouth daily at bedtime. For cholesterol. clotrimazole-betamethason e (LOTRISONE) cream Apply to affected area twice daily as needed. metFORMIN ER (GLUCOPHAGE XR) 500 mg 24 hr tablet Take 2 tablets by mouth twice daily with meals. FAMILY HISTORY Problem Relation Age of Onset No Known Problems Father Aneurysm Mother Cancer Brother No Known Problems Maternal Grandmother No Known Problems Maternal Grandfather No Known Problems Paternal Grandmother No Known Problems Paternal Grandfather No Known Problems Child No Known Problems Child No Known Problems Child Glaucoma No Family History Macular Degen No Family History Social History Tobacco Use Smoking status: Never Smokeless tobacco: Never Vaping Use Vaping Use: Never used Substance Use Topics Alcohol use: Not Currently Drug use: Not Currently BP 122/68 Pulse 76 Resp 14 Wt 83 kg (183 lb) SpO2 99% BMI 35.74 kg/m? Physical Exam Vitals reviewed. Constitutional: Appearance: Normal appearance. Cardiovascular: Rate and Rhythm: Normal rate and regular rhythm. Pulses: Normal pulses. Heart sounds: Normal heart sounds. No murmur heard. Pulmonary: Effort: Pulmonary effort is normal. Breath sounds: Normal breath sounds. No wheezing, rhonchi or rales. Musculoskeletal: Right upper arm: Normal. Left upper arm: Tenderness (biceps) present. No swelling, deformity or bony tenderness. Skin: General: Skin is warm and dry. Capillary Refill: Capillary refill takes less than 2 seconds. Neurological: Mental Status: She is alert. Sensory: Sensation is intact. Motor: Motor function is intact. Health maintenance reviewed with patient: BP Controlled (<130/80) Never done Mammogram Screening Never done RSV Vaccine(1 - 1-dose 60+ series) Never done Influenza Vaccine(1) Never done Covid-19 Vaccine(2022-24 season) due on 11/13/2022 Advance Directive Discussion Never done Depression Assessment due on (more content not included)... Normal [facility] HbA1c (Bld)on 03-23-2023 Average glucose Estimated from glycated hemoglobin (Bld) [Mass/Vol] 123 mg/dL Normal [facility] Comment on above: Order Comment: Speci men Type: BLOOD SPECIMENOrdering Facility: [facility] Address: [address] [place] [address] Result Comment: eAG: (Estimated average glucose) is a calculated value from HgbA1c and is in store marketing representative of the average blood glucose level in the last 2-3 month period. Performed By: #### 5 5454-3 ####[facility] LABCLIA [id number] [place] [address] [place] HbA1c (Bld) [Mass fraction] 5.9 % High 4.3-5.6 [facility] Comment on above: Order Comment: Speci men Type: BLOOD SPECIMENOrdering Facility: [facility] Address: [address] [place] [address] Result Comment: Amer [place] Diabetes Association guidelines indicate that patients with HgbA1c in the range 5.7-6.4% are at increased risk for development of diabetes, and intervention by lifestyle modification may be beneficial. HgbA1c greater or equal to 6.5% is considered diagnostic of diabetes. Performed By: #### 5 5454-3 ####[facility] LABIA [id number] [place] [address] [place] Lipid 1996 panelon 4 Cholesterol [Mass/Vol] 225 mg/dL High <200 [facility] Comment on above: Order Comment: Morenita flower Type: BLOOD SPECIMENOrdering Facility: [facility] Address: [address] [place] [address] Result Comment: <200 mg/dL, Desirable 200-239 mg/dL, Borderline high >239 mg/dL, High Performed By: #### 2 4331-1 ####[facility] LABIA [id number] [place] [address] [place] Cholesterol in HDL [Mass/Vol] 87 mg/dL Normal >39 [facility] Comment on above: Order Comment: Morenita men Type: BLOOD SPECIMENOrdering Facility: [facility] Address: [address] [place] [address] Result Comment: 40-5 9 mg/dL, Acceptable >59 mg/dL, High: Negative risk factor for coronary heart disease <40 mg/dL, Low: Positive risk factor for coronary heart disease Performed By: #### 2 4331-1 ####[facility] LABCLIA [id number] [place] [address] [place] Cholesterol in LDL [Mass/Vol] 119 mg/dL High <100 [facility] Comment on above: Order Comment: Speci men Type: BLOOD SPECIMENOrdering Facility: [facility] Address: [address] [place] [address] Result Comment: <100 mg/dL, Optimal 100-129 mg/dL, Near optimal/above optimal 130-159 mg/dL, Borderline high 160-189 mg/dL, High >189 mg/dL, Very high Secondary prevention optimal LDL Cholesterol levels are recommended to be < 70 mg/dL Performed By: #### 2 4331-1 ####[facility] LABCLIA [id number] [address] [place] Cholesterol in LDL/Cholesterol in HDL [Mass ratio] 1.37 {ratio} Normal <2.54 [facility] Comment on above: Order Comment: Speci men Type: BLOOD SPECIMENOrdering Facility: [facility] Address: [address] [place] [address] Result Comment: Refe rence: 1. National Cholesterol Education Program ATP III Guideline At-A-Glance Quick Desk Reference: National Heart, Lung, and Blood [place]. National Institutes of Health. 2001: NIH Publication No. 01-3305. 2. An International Atherosclerosis Society position paper: global recommendations for the management of dyslipidemia: executive summary, Atherosclerosis. 2014: 232(2):410-413. Performed By: #### 2 4331-1 ####[facility] LABCLIA [id number] [place] [address] [place] Cholesterol in VLDL [Mass/Vol] 19 mg/dL Normal <30 [facility] Comment on above: Order Comment: Speci men Type: BLOOD SPECIMENOrdering Facility: [facility] Address: [address] [place] [address] Performed By: #### 2 4331-1 ####[facility] LABCLIA [id number] [place] [address] [place] Cholesterol non HDL [Mass/Vol] 138 mg/dL High <130 [facility] Comment on above: Order Comment: Speci men Type: BLOOD SPECIMENOrdering Facility: [facility] Address: [address] [place] [address] Result Comment: <130 mg/dL, Optimal 130-159 mg/dL, Near optimal/above optimal 160-189 mg/dL, Borderline high 190-219 mg/dL, High >219 mg/dL, Very high Secondary prevention optimal non HDL Cholesterol levels are recommended to be <100 mg/dL Performed By: #### 2 4331-1 ####[facility] LABCLIA [id number] [place] [address] [place] Cholesterol.total/Cholest jason in HDL [Mass ratio] 2.59 {ratio} Normal <5.10 [facility] Comment on above: Order Comment: Speci men Type: BLOOD SPECIMENOrdering Facility: [facility] Address: [address] [place] [address] Performed By: #### 2 4331-1 ####[facility] LABCLIA [id number] [place] [address] [place] FASTING TIME 14 hrs Normal [facility] Comment on above: Order Comment: Speci men Type: BLOOD SPECIMENOrdering Facility: [facility] Address: [address] [place] [address] Performed By: #### 2 4331-1 ####[facility] LABIA [id number] [place] [address] [place] Triglyceride [Mass/Vol] 93 mg/dL Normal <150 [facility] Comment on above: Order Comment: Speci men Type: BLOOD SPECIMENOrdering Facility: [facility] Address: [address] [place] [address] Result Comment: <150 mg/dL, Normal 150-199 mg/dL, Borderline high 200-499 mg/dL, High >499 mg/dL, Very high Performed By: #### 2 4331-1 ####[facility] LABEVAN [id number] [facility]ENTERLucia [id number] [place], [place] [id number] [place] Aby 03-13-2023 CNPN Telephone (UCTR) ----- MACY MORALES ([id number]) 1955 F [place] Date Time Provider Department 03/13/23 ANA BROWNING [facility] [[email or web address]] During your visit today, we recorded the following information about you: Allergies As of Date: 03/13/2023 (No Known Allergies) Date Reviewed: 03/06/2023 Reviewed by: Maddy Dubois - Fully Assessed Prescriptions as of 04/22/2023 - atorvastatin (LIPITOR) 20 mg tablet Take 1 tablet by mouth daily at bedtime. For cholesterol. - metFORMIN ER (GLUCOPHAGE XR) 500 mg 24 hr tablet Take 2 tablets by mouth two times a day with meals. - glipiZIDE (GLUCOTROL XL) 2.5 mg 24 hr tablet Take 1 tablet by mouth once daily. - pantoprazole DR (PROTONIX) 40 mg tablet Take 1 tablet by mouth once daily as needed. - lisinopril (ZESTRIL) 20 mg tablet Take 1 tablet by mouth once daily. - alendronate (FOSAMAX) 70 mg tablet Take 1 tablet by mouth one time a week. Take with a full glass of water, on an empty stomach; do NOT lie down for 30minutes. - blood sugar diagnostic (TRUE METRIX GLUCOSE TEST STRIP) test strip Test blood sugar(s) 1 times daily. Dx: Type 2 DM - Controlled E11.9 Insulin: No - clotrimazole-betamethason e (LOTRISONE) cream Apply to affected area twice daily as needed. 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 Follow up with PCP if no improvement. Maddy Dubois 03/10/2023 7:26 AM Signed Left message for patient to return call. Dane Marinelli MA 03/11/2023 11:21 AM Signed Pt was notified of the results. Pt verbalized understanding. Pt has contacted PCPs nurse for further care. Dane Rodas MA Allergies As of Date: 03/10/2023 (No Known Allergies) Date Reviewed: 03/06/2023 Reviewed by: Maddy Dubois - Fully Assessed Reason for Visit: Results [95] Prescriptions as of 03/11/2023 - lisinopril (ZESTRIL) 20 mg tablet Take 1 tablet by mouth once daily. - alendronate (FOSAMAX) 70 mg tablet Take 1 tablet by mouth one time a week. Take with a full glass of water, on an empty stomach; do NOT lie down for 30minutes. - pantoprazole DR (PROTONIX) 40 mg tablet Take 1 tablet by mouth once daily as needed. - blood sugar diagnostic (TRUE METRIX GLUCOSE TEST STRIP) test strip Test blood sugar(s) 1 times daily. Dx: Type 2 DM - Controlled E11.9 Insulin: No - glipiZIDE (GLUCOTROL XL) 2.5 mg 24 hr tablet Take 1 tablet by mouth once daily. - atorvastatin (LIPITOR) 10 mg tablet Take 1 tablet by mouth daily at bedtime. For cholesterol. - clotrimazole-betamethason e (LOTRISONE) cream Apply to affected area twice daily as needed. - metFORMIN ER (GLUCOPHAGE XR) 500 mg 24 hr tablet Take 2 tablets by mouth twice daily with meals. 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 Equipment Superintendent: KATELYNN Transcribe Date/Time: Mar 09 2023 8:46P Dictated by : SHALINI BOUCHER MD This examination was interpreted and the report reviewed and electronically signed by: SHALINI BOUCHER MD on Mar 09 2023 8:46PM [facility] DIVISION OF RADIOLOGY * * *Final Report* * * DATE OF EXAM: Mar 06 2023 12:04PM WOX [id number] - XR CHEST 2V FRONTAL/LAT / PROCEDURE REASON: Acute cough * * * * Physician Interpretation * * * * EXAMINATION: CHEST RADIOGRAPH (2 VIEW FRONTAL & LATERAL) CLINICAL HISTORY: Acute cough MQ: XC2_6 EXAM DATE/TIME: 03/06/2023 12:04 PM COMPARISON: No relevant prior studies available. RESULT: Lines, tubes, and devices: None. Lungs and pleura: No consolidation. No lung mass. No pleural effusion. No pneumothorax. Cardiomediastinal silhouette: Normal cardiomediastinal silhouette. Bones and soft tissues: Unremarkable. DIVISION OF RADIOLOGY Provider, [facility] - 03/09/2023 * * *Final Report* * * DATE OF EXAM: Mar 06 2023 12:04PM WOX [id number] - XR CHEST 2V FRONTAL/LAT / PROCEDURE REASON: Acute cough * * * * Physician Interpretation * * * * EXAMINATION: CHEST RADIOGRAPH (2 VIEW FRONTAL & LATERAL) CLINICAL HISTORY: Acute cough MQ: XC2_6 EXAM DATE/TIME: 03/06/2023 12:04 PM COMPARISON: No relevant prior studies available. RESULT: Lines, tubes, and devices: None. Lungs and pleura: No consolidation. No lung mass. No pleural effusion. No pneumothorax. Cardiomediastinal silhouette: Normal cardiomediastinal silhouette. Bones and soft tissues: Unremarkable. IMPRESSION IMPRESSION: Unremarkable exam with no acute radiographic abnormality. Equipment Superintendent: KATELYNN Transcribe Date/Time: Mar 09 2023 8:46P Dictated by : SHALINI BOUCHER MD This examination was interpreted and the report reviewed and electronically signed by: SHALINI BOUCHER MD on Mar 09 2023 8:46PM EST [facility] XR Chest PA and LateralOrder ed By: Cc Provider on 03-09-2023 [facility] 03-07-2023 [facility] Telephone (UCWSTR) ----- MACY MORALES ([id number]) 1955 F [place] Date Time Provider Department 03/07/23 IGOR KIM [facility] [[email or web address]] During your visit today, we recorded the following information about you: Maddy Dubois 03/07/2023 12:20 PM Signed ----- Message from Igor Kim MD sent at 03/07/2023 7:38 AM EST ----- Negative COVID, influenza, and RSV. Maddy Dubois 03/07/2023 12:21 PM Signed Unable to reach patient. Mailbox full/Mailbox not set up/ Number incorrect. Please try again later. Génesis Gomez LPN 03/09/2023 8:51 AM Signed Still unable to reach or leave message for patient-will wait for patient to return call for her negative results.Génesis Salazar LPN Allergies As of Date: 03/07/2023 (No Known Allergies) Date Reviewed: 03/06/2023 Reviewed by: Maddy Dubois - Fully Assessed Reason for Visit: Results [95] Prescriptions as of 03/09/2023 - lisinopril (ZESTRIL) 20 mg tablet Take 1 tablet by mouth once daily. - alendronate (FOSAMAX) 70 mg tablet Take 1 tablet by mouth one time a week. Take with a full glass of water, on an empty stomach; do NOT lie down for 30minutes. - pantoprazole DR (PROTONIX) 40 mg tablet Take 1 tablet by mouth once daily as needed. - blood sugar diagnostic (TRUE METRIX GLUCOSE TEST STRIP) test strip Test blood sugar(s) 1 times daily. Dx: Type 2 DM - Controlled E11.9 Insulin: No - glipiZIDE (GLUCOTROL XL) 2.5 mg 24 hr tablet Take 1 tablet by mouth once daily. - atorvastatin (LIPITOR) 10 mg tablet Take 1 tablet by mouth daily at bedtime. For cholesterol. - clotrimazole-betamethason e (LOTRISONE) cream Apply to affected area twice daily as needed. - metFORMIN ER (GLUCOPHAGE XR) 500 mg 24 hr tablet Take 2 tablets by mouth twice daily with meals. 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 Pulsatile tinnitus, right ear [H93.A1] 11/30/2022 Conductive hearing loss of right ear with unres*11/30/2022 Encounter Status:Closed by GÉNESIS SALAZAR on 03/09/23 [facility] 03-06-2023 CNOV Office Visit (UCWSTR ) ----- MACY MORALES ([id number]) 1955 [place] Date Time Provider Department 03/06/23 11:15 AM IGOR KIM [facility] [[email or web address]] During your visit today, we recorded the following information about you: Temperature Pulse Respiration Blood pressure 98 degrees 80/minute 16/minute 122/80 Weight 82.6 kg Igor Kim MD 03/06/2023 12:48 PM Signed Patient presents with: Nasal Congestion: cough, nose bleeds x 2 weeks HPI: Feeling sick for 2 weeks; not feeling better. Still felt feverish last night. Positive symptoms: Cough, Nasal Congestion, rhinorrhea, epistaxis, little shortness of breath/Wheezing, Sore throat, swollen uvula, fever, Body Aches, Malaise, Fatigue, Headache, Nausea, Diarrhea, sometimes dizziness Negative symptoms: Chest pain, Vomiting, OTC: none. No COVID or influenza test this illness. 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 alendronate (FOSAMAX) 70 mg tablet Take 1 tablet by mouth one time a week. Take with a full glass of water, on an empty stomach; do NOT lie down for 30minutes. pantoprazole DR (PROTONIX) 40 mg tablet Take 1 tablet by mouth once daily as needed. blood sugar diagnostic (TRUE METRIX GLUCOSE TEST STRIP) test strip Test blood sugar(s) 1 times daily. Dx: Type 2 DM - Controlled E11.9 Insulin: No glipiZIDE (GLUCOTROL XL) 2.5 mg 24 hr tablet Take 1 tablet by mouth once daily. atorvastatin (LIPITOR) 10 mg tablet Take 1 tablet by mouth daily at bedtime. For cholesterol. clotrimazole-betamethason e (LOTRISONE) cream Apply to affected area twice daily as needed. metFORMIN ER (GLUCOPHAGE XR) 500 mg 24 hr tablet Take 2 tablets by mouth twice daily with meals. No current facility-administered medications for this visit. ALLERGIES: ALLERGIES No Known Allergies VITALS: BP 122/80 Pulse 80 Temp 36.7 ?C (98 ?F) Resp 16 Wt 82.6 kg (182 lb) SpO2 98% BMI 35.54 kg/m? PHYSICAL EXAM: GEN: mildly ill appearing HEENT: PERRL, EOMI, conjunctiva clear Ears: canals clear. TMs without erythema, bulge, or effusion Sinuses: non-tender frontal sinus, non-tender maxillary sinuses Throat: moist mucous membranes, mild erythema, no exudate Neck: supple, no thyromegaly, no lymphadenopathy HEART: regular rate and rhythm, no murmurs LUNGS: clear to auscultation, no wheezes or crackles, no increased WOB ASSESSMENT/PLAN: 1. Influenza-like illness - ICD9: 487.1, ICD10: J11.1 (primary diagnosis) 2. Sore throat - ICD9: 462, ICD10: J02.9 3. Acute cough - ICD9: 786.2, ICD10: R05.1 - suspect viral URI, differential includes COVID-19. No signs of secondary infection on exam today. - Discussed supportive care treatment with home isolation, rest, cold medicine, and analgesia. - Red flags to seek further treatment include chest pain, shortness of breath, and lethargy; in the ER if severe. - COVID AND INFLUENZA A/B AND RSV NAAT, ROUTINE - STREP A MOLECULAR (POC) - negative - XR CHEST 2V FRONTAL/LAT - no obvious pneumonia. Radiology interpretation is pending. The patient will be notified if there is a significant finding in the report not discussed at the time of the visit. Igor Kim MD' Allergies As of Date: 03/06/2023 (No Known Allergies) Date Reviewed: 03/06/2023 Reviewed by: Maddy Dubois - Fully Assessed Reason for Visit: Nasal Congestion [235] Cmt: cough, nose bleeds x 2 weeks Primary Visit Diagnosis:Influenza-like illness [J11.1] Other Visit Diagnoses:Sore throat [J02.9] Acute cough [R05.1] Order(s):COVID AND INFLUENZA A/B AND RSV NAAT, ROUTINE [SQCVFLRS] Order #: [id number]. #:[id number] STREP A MOLECULAR (POC) [[id number]] Order #: [id number] #:[id number] XR CHEST 2V FRONTAL/LAT [[id number]] Order #: [id number] FUTURE Prescriptions as of 03/06/2023 - lisinopril (ZESTRIL) 20 mg tablet Take 1 tablet by mouth once daily. - alendronate (FOSAMAX) 70 mg tablet Take 1 tablet by mouth one time a week. Take with a full glass of water, on an empty stomach; do NOT lie down for 30minutes. - pantoprazole DR (PROTONIX) 40 mg tablet Take 1 tablet by mouth once daily as needed. - blood sugar diagnostic (TRUE METRIX GLUCOSE TEST STRIP) test strip Test blood sugar(s) 1 times daily. Dx: Type 2 DM - Controlled E11.9 Insulin: No - glipiZIDE (GLUCOTROL XL) 2.5 mg 24 hr tablet Take 1 tablet by mouth once daily. - atorvastatin (LIPITOR) 10 mg tablet Take 1 tablet by mouth daily at bedtime. For cholesterol. (more content not included)... Normal [facility] COVID AND INFLUENZA A/B AND RSV NAAT, ROUTINEon 03-06-2023 SARS-CoV-2 (COVID-19) RNA CHIVO+probe Ql (Unsp spec) COVID 19 RESULT: Not detected The method used is RT-PCR or an equivalent NAAT method. Reference Range (the expected result in uninfected individuals): Not detected INFLUENZA A PCR: Not detected INFLUENZA B PCR: Not detected RSV PCR: Not detected Normal [facility] Comment on above: Performed By: #### C VFS ####[facility] LABCLIA [id number] [place] [address] [place] XR CHEST 2V FRONTAL/LATon XR CHEST 2V FRONTAL/LAT * * *Final Repor t* * * DATE OF EXAM: Mar 06 2023 12:04PM WOX [id number] - XR CHEST 2V FRONTAL/LAT / PROCEDURE REASON: Acute cough * * * * Physician Interpretation * * * * EXAMINATION: CHEST RADIOGRAPH (2 VIEW FRONTAL and LATERAL) CLINICAL HISTORY: Acute cough MQ: XC2_6 EXAM DATE/TIME: 03/06/2023 12:04 PM COMPARISON: No relevant prior studies available. RESULT: Lines, tubes, and devices: None. Lungs and pleura: No consolidation. No lung mass. No pleural effusion. No pneumothorax. Cardiomediastinal silhouette: Normal cardiomediastinal silhouette. Bones and soft tissues: Unremarkable. IMPRESSION: Unremarkable exam with no acute radiographic abnormality. Equipment Superintendent: PSCB Transcribe Date/Time: Mar 09 2023 8:46P Dictated by : SHALINI BOUCHER MD This examination was interpreted and the report reviewed and electronically signed by: SHALINI BOUCHER MD on Mar 09 2023 8:46PM EST [id number] Normal [facility] XR Chest PA and Lateralon Radiology Study observation (narrative) [facility] CNOVon 02-23-2023 CNOV Office Visit (INTMWS ) ----- MACY MORALES ([id number]) 1955 F [place] Date Time Provider Department 02/23/23 9:40 AM ANA BROWNING INTMWS During your visit today, we recorded the following information about you: Pulse Respiration Blood pressure Weight 76/minute 16/minute 169/90 84.8 kg Ana Browning, NAIL SPECIALIST.ACETONE BUTTON PASTER 02/23/2023 11:31 AM Signed CC: Patient presents with: Eye Muscle Spasms Right Eye HPI Macy Morales is a 67 year old female who presents today for above. Patient reports right eye twitching since diagnosed with [place] Palsy. All other [place] Palsy symptoms have resolved except for this. Denies photophobia, eye pain, discharge, redness, itching and visual disturbance. Last eye exam was in September, no abnormal findings other than [place] Palsy. Review of Systems HENT: Negative for drooling, facial swelling, trouble swallowing and voice change. Neurological: Negative for tremors, facial asymmetry, speech difficulty, weakness, light-headedness, numbness and headaches. 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 MEDICATIONS lisinopril (ZESTRIL) 20 mg tablet Take 1 tablet by mouth once daily. alendronate (FOSAMAX) 70 mg tablet Take 1 tablet by mouth one time a week. Take with a full glass of water, on an empty stomach; do NOT lie down for 30minutes. pantoprazole DR (PROTONIX) 40 mg tablet Take 1 tablet by mouth once daily as needed. blood sugar diagnostic (TRUE METRIX GLUCOSE TEST STRIP) test strip Test blood sugar(s) 1 times daily. Dx: Type 2 DM - Controlled E11.9 Insulin: No glipiZIDE (GLUCOTROL XL) 2.5 mg 24 hr tablet Take 1 tablet by mouth once daily. atorvastatin (LIPITOR) 10 mg tablet Take 1 tablet by mouth daily at bedtime. For cholesterol. clotrimazole-betamethason e (LOTRISONE) cream Apply to affected area twice daily as needed. metFORMIN ER (GLUCOPHAGE XR) 500 mg 24 hr tablet Take 2 tablets by mouth twice daily with meals. FAMILY HISTORY Problem Relation Age of Onset No Known Problems Father Aneurysm Mother Cancer Brother No Known Problems Maternal Grandmother No Known Problems Maternal Grandfather No Known Problems Paternal Grandmother No Known Problems Paternal Grandfather No Known Problems Child No Known Problems Child No Known Problems Child Glaucoma No Family History Macular Degen No Family History Social History Tobacco Use Smoking status: Never Smokeless tobacco: Never Vaping Use Vaping Use: Never used Substance Use Topics Alcohol use: Not Currently Drug use: Not Currently BP 169/90 Pulse 76 Resp 16 Wt 84.8 kg (187 lb) BMI 36.52 kg/m? Physical Exam Vitals reviewed. Constitutional: Appearance: Normal appearance. HENT: Mouth/Throat: Tongue: Tongue does not deviate from midline. Pharynx: Uvula midline. Eyes: General: Lids are normal. Gaze aligned appropriately. Right eye: No discharge. Extraocular Movements: Extraocular movements intact. Right eye: No nystagmus. Conjunctiva/sclera: Conjunctivae normal. Neurological: Mental Status: She is alert. Cranial Nerves: No facial asymmetry. ASSESSMENT/PLAN: 1. Eye muscle twitches - ICD9: 781.0, ICD10: R25.3 Suspect secondary to [place] Palsy. No alarm symptoms or exam findings. Reassurance given. Follow-up with crime prevention police officer if symptoms worsen or persist Prescription instructions reviewed with patient as applicable. Potential red flag symptoms discussed with the patient. Reviewed appropriate action plan to take if red flag symptoms occur. Patient agreeable to treatment plan. Ana Browning APRN.Ana Villalobos APRN.CNP 02/23/2023 10:22 AM Signed Eye twitching is likely due to [place] Palsy. If symptoms are getting worse recommend follow-up with your eye doctor Allergies As of Date: 02/23/2023 (No Known Allergies) Date Reviewed: 02/23/2023 Reviewed by: Ana Browning APRN.CNP - Fully Assessed Reason for Visit: Eye Muscle Spasms Right Eye [2870] Primary Visit Diagnosis:Eye muscle twitches [R25.3] Prescriptions as of 02/23/2023 - lisinopril (ZESTRIL) 20 mg tablet Take 1 tablet by mouth once daily. - alendronate (FOSAMAX) 70 mg tablet Take 1 tablet by mouth one time a week. Take with a full glass of water, on an empty stomach; do NOT lie down for 30minutes. - pantoprazole DR (PROTONIX) 40 mg tablet Take 1 tablet by mouth once daily as needed. - blood sugar diagnostic (TRUE METRIX GLUCOSE TEST STRIP) test strip Test blood sugar(s) 1 times daily. Dx: Type 2 DM - Controlled E11.9 In (more content not included)... Normal [facility] CNOVon 11-30-2022 CNOV Office Visit (LAUREL ) ----- MACY MORALES ([id number]) 1955 [place] Date Time Provider Department 11/30/22 11:00 AM ARIE GAYTAN During your visit today, we recorded the following information about you: Arie Gaytan, LAST 11/30/2022 1:00 PM Signed [facility] [place] AUDIOLOGIC EVALUATION REPORT Name: Macy Morales [facility]#: [id number] Date of Service: 11/30/2022 Date of : 1955 Age: [age] year old Referred by: Brittani Santnaa MD Referred for: Evaluation of the cause of disorder of hearing, tinnitus, or balance. Referral documented: In an order in [facility] Patient's major complaints: Hearing loss: Possible decline in hearing. Tinnitus: Right sided tinnitus since May 2022(vacuum-thumping). Tinnitus worsens with loud noises Ear pain: Right ear pain began in May 2022, 3 days later she developed right facial paralysis. Was evaluated at an outside facility with CT and MRI which were reportedly WNL. Ear pain lasted approximately 1 week. Aural fullness: denied Otorrhea: denied History of ear infections: denied History of otologic surgeries: denied Dizziness: denied Noise exposure: denied History of chemotherapy or radiation: denied History of head trauma: denied Family history of hearing loss: denied Other concerns: Right sided facial paralysis since May 2022, although it is improving. Patient also notes hyperacusis in the right ear only. She also noted occasional twitching of the right cheek and ear since May 2022 Macy Morales was seen for an initial audiologic evaluation. See SmartForm Audiogram for additional reported history and symptoms. Risk of Falls Documentation for over 65 years old: No history of falls reported so minimal to no risk IMPRESSIONS RIGHT EAR: Conductive hearing loss LEFT EAR: Hearing within normal limits AUDIOLOGIC EVALUATION Following is a brief interpretation of the obtained findings from the audiologic evaluation. Refer to the Auditory Test Record for complete audiometric results. The patient was counseled about the test findings and appropriate audiologic recommendations were made. SUMMARY: Audiogram can be viewed under Forms/Audiology/SmartForm . OTOSCOPY RIGHT EAR: Otoscopic inspection revealed ear canal was clear with an identifiable cone of light. LEFT EAR: Otoscopic inspection revealed ear canal was clear with an identifiable cone of light. TYMPANOMETRY Description of procedure: This test is an objective evaluation of middle ear function. CPT code: 75860 RIGHT EAR: Normal ME function. LEFT EAR: Normal ME function. ACOUSTIC REFLEXES Description of procedure: This test is an objective measure of auditory and facial nerve pathways. CPT code: 32375, 92093 RIGHT EAR PROBE EAR: (ipsi right stimulus ear; contralateral left stimulus ear): Acoustic Reflex Pattern screening ipsilateral reflex at 1000 Hz was absent at 105 DB Acoustic Reflex Decay (left stimulus ear): Did not test. LEFT EAR PROBE EAR: (ipsi left stimulus ear; contralateral right stimulus ear): Acoustic Reflex Pattern screening ipsilateral reflex and 1000 Hz was present Acoustic Reflex Decay (right stimulus ear):Did not test. PURE TONE AUDIOMETRY AND SPEECH TESTING Description of procedure: This test is an objective evaluation hearing sensitivity via air and bone conduction and speech recognition testing. CPT code:91983 RIGHT EAR: Hearing Sensitivity: Hearing essentially within normal limits except for a mild conductive hearing loss at 1000 Hz only. This was double checked with phones and a screening reflex at the 1000 Hz which was absent Word Recognition Score: Good (84%). WRS is poorer than expected given hearing sensitivity. Words were presented at 60 dB HL is above (greater than or equal to 60 dB HL) intensity level for average conversational speech. The NU-6 Ordered by Difficulty Word List (25 words) was used for testing. Interpret with caution due to ESL Due to lower than expected speech understanding, a English word list was used and speech perception was noted to be excellent (96%) at an above (greater than or equal to 60 dBHL) intensity level for average conversational speech. (25 words) LEFT EAR: Hearing Sensitivity: Essentially WNL Word Recognition Score: Poor (64%). WRS is poorer than expected given hearing sensitivity. Words were presented at 55 dB HL which approximates (45-55 dB HL) intensity level for average conversational speech. The NU-6 Ordered by Difficulty Word List (25 words) was used for testing. *Interpret with caution due to ESL Due to lower than expected speech understanding, a English word list was used and speech perception was noted to be Good (88%) at an above (greater than or equal to 60 dBHL) intensity level for average conversational speech. However, this score remains worse than expected given hearing sensitivity (25 w (more content not included)... Normal [facility] HbA1c (Bld)on 11-19-2022 Average glucose Estimated from glycated hemoglobin (Bld) [Mass/Vol] 123 mg/dL Normal [facility] Comment on above: Order Comment: Speci men Type: BLOOD SPECIMENOrdering Facility: [facility] Address: [address] [address] Result Comment: eAG: (Estimated average glucose) is a calculated value from HgbA1c and is in store marketing representative of the average blood glucose level in the last 2-3 month period. Performed By: #### 5 5454-3 ####[facility] LABCLIA [id number] [place] [address] [place] HbA1c (Bld) [Mass fraction] 5.9 % High 4.3-5.6 [facility] Comment on above: Order Comment: Speci men Type: BLOOD SPECIMENOrdering Facility: [facility] Address: [address] [place] [address] Result Comment: Amer ican Diabetes Association guidelines indicate that patients with HgbA1c in the range 5.7-6.4% are at increased risk for development of diabetes, and intervention by lifestyle modification may be beneficial. HgbA1c greater or equal to 6.5% is considered diagnostic of diabetes. Performed By: #### 5 5454-3 ####[facility] LABCLIA [id number] [place] [address] [place] Lipid 1996 panelon 3 Cholesterol [Mass/Vol] 215 mg/dL High <200 [facility] Comment on above: Order Comment: Speci men Type: BLOOD SPECIMENOrdering Facility: [facility] Address: [address] [place] [address] Result Comment: <200 mg/dL, Desirable 200-239 mg/dL, Borderline high >239 mg/dL, High Performed By: #### 2 4331-1 ####[facility] LABIA [id number] [place] [address] [place] Cholesterol in HDL [Mass/Vol] 88 mg/dL Normal >39 [facility] Comment on above: Order Comment: Speci men Type: BLOOD SPECIMENOrdering Facility: [facility] Address: [address] [place] [address] Result Comment: 40-5 9 mg/dL, Acceptable >59 mg/dL, High: Negative risk factor for coronary heart disease <40 mg/dL, Low: Positive risk factor for coronary heart disease Performed By: #### 2 4331-1 ####[facility] LABCLIA [id number] [address] STATES OF [facility] Cholesterol in LDL [Mass/Vol] 109 mg/dL High <100 [facility] Comment on above: Order Comment: Mirii men Type: BLOOD SPECIMENOrdering Facility: [facility] Address: [address] [place] [address] Result Comment: <100 mg/dL, Optimal 100-129 mg/dL, Near optimal/above optimal 130-159 mg/dL, Borderline high 160-189 mg/dL, High >189 mg/dL, Very high Secondary prevention optimal LDL Cholesterol levels are recommended to be < 70 mg/dL Performed By: #### 2 4331-1 ####[facility] LABIA [id number] [address] Cholesterol in LDL/Cholesterol in HDL [Mass ratio] 1.24 {ratio} Normal <2.54 [facility] Comment on above: Order Comment: Morenita flower Type: BLOOD SPECIMENOrdering Facility: [facility] Address: [address] [place] [address] Result Comment: Refe rence: 1. National Cholesterol Education Program ATP III Guideline At-A-Glance Quick Desk Reference: National Heart, Lung, and Blood [place]. National Institutes of Health. 2001: NIH Publication No. 01-3305. 2. An International Atherosclerosis Society position paper: global recommendations for the management of dyslipidemia: executive summary, Atherosclerosis. 2014: 232(2):410-413. Performed By: #### 2 4331-1 ####[facility] LABIA [id number] [address] Cholesterol in VLDL [Mass/Vol] 18 mg/dL Normal <30 [facility] Comment on above: Order Comment: Mirii men Type: BLOOD SPECIMENOrdering Facility: [facility] Address: [address] [place] [address] Performed By: #### 2 4331-1 ####[facility] LABCLIA [id number] [place] [address] [place] Cholesterol non HDL [Mass/Vol] 127 mg/dL Normal <130 [facility] Comment on above: Order Comment: Speci men Type: BLOOD SPECIMENOrdering Facility: [facility] Address: [address] Result Comment: <130 mg/dL, Optimal 130-159 mg/dL, Near optimal/above optimal 160-189 mg/dL, Borderline high 190-219 mg/dL, High >219 mg/dL, Very high Secondary prevention optimal non HDL Cholesterol levels are recommended to be <100 mg/dL Performed By: #### 2 4331-1 ####[facility] LABCLIA [id number] [address] OF [facility] Cholesterol.total/Cholest jason in HDL [Mass ratio] 2.44 {ratio} Normal <5.10 [facility] Comment on above: Order Comment: Speci men Type: BLOOD SPECIMENOrdering Facility: [facility] Address: [address] [place] [address] Performed By: #### 2 4331-1 ####[facility] LABCLIA [id number] [address] [place] FASTING TIME 14 hrs Normal [facility] Comment on above: Order Comment: Speci men Type: BLOOD SPECIMENOrdering Facility: [facility] Address: [address] Performed By: #### 2 4331-1 ####[facility] LABCLIA [id number] [address] STATES OF [facility] Triglyceride [Mass/Vol] 92 mg/dL Normal <150 [facility] Comment on above: Order Comment: Speci men Type: BLOOD SPECIMENOrdering Facility: [facility] Address: [address] Result Comment: <150 mg/dL, Normal 150-199 mg/dL, Borderline high 200-499 mg/dL, High >499 mg/dL, Very high Performed By: #### 2 4331-1 ####[facility] [place]ETHANIE [id number] [id number] [id number] [facility] Aby 11-17-2022 LEIGHA Telephone (INTMWS) ----- MACY MORALES ([id number]) 1955 F [facility] Date Time Provider Department 11/17/22 ELDER REDDY INTCLARKE During your visit today, we recorded the following information about you: Joana Gillette LPN 11/17/2022 8:12 AM Signed ----- Message from Ana Mccarty APRN.CNP sent at 11/17/2022 7:56 AM EDT ----- Please let the patient know her bone density indicates osteoporosis, she is at increased risk for fractures including hip and spine. It is recommended to start treatment with medication to increase bone mass and decrease risk for fractures called Fosamax which is taken once a week. She will need to have Vitamin D level checked prior to starting this medication. JORJE Whitney Helen E LPN 11/17/2022 8:18 AM Signed Patient given below results/recommendations, verbalized understanding. Patient will come in to have Vitamin D level drawn. Ana Weinberg LPN, APRN.CNP 11/20/2022 6:32 AM Signed Addended by: ANA MCCARTY on: 11/20/2022 06:32 AM Modules accepted: Orders Allergies As of Date: 11/17/2022 (No Known Allergies) Date Reviewed: 10/20/2022 Reviewed by: Older, Ana, NAIL SPECIALIST.ACETONE BUTTON PASTER - Fully Assessed Reason for Visit: Results [95] Primary Visit Diagnosis:Osteoporosis, unspecified osteoporosis type, unspecified pathological fracture presence [M81.0] Order(s):VITAMIN D 25 HYDROXY [SQVITD] Order #: [id number] FUTURE alendronate (FOSAMAX) 70 mg tabletTake 1 tablet by mouth one time a week. Take with a full glass of water, on an empty stomach; do NOT lie down for 30minutes.Disp: 12 tabletRfl: 3 Prescriptions as of 11/20/2022 - alendronate (FOSAMAX) 70 mg tablet Take 1 tablet by mouth one time a week. Take with a full glass of water, on an empty stomach; do NOT lie down for 30minutes. - pantoprazole DR (PROTONIX) 40 mg tablet Take 1 tablet by mouth once daily as needed. - lisinopril (ZESTRIL) 20 mg tablet Take 1 tablet by mouth once daily. - blood sugar diagnostic (TRUE METRIX GLUCOSE TEST STRIP) test strip Test blood sugar(s) 1 times daily. Dx: Type 2 DM - Controlled E11.9 Insulin: No - glipiZIDE (GLUCOTROL XL) 2.5 mg 24 hr tablet Take 1 tablet by mouth once daily. - atorvastatin (LIPITOR) 10 mg tablet Take 1 tablet by mouth daily at bedtime. For cholesterol. - clotrimazole-betamethason e (LOTRISONE) cream Apply to affected area twice daily as needed. - metFORMIN ER (GLUCOPHAGE XR) 500 mg 24 hr tablet Take 2 tablets by mouth twice daily with meals. 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 Take with a full glass of water, on an empty stomach; do NOT lie down for 30minutes. Encounter Status:Closed by JOANA GILLETTE LPN on 11/17/22 Normal [facility] BD DXA - AXIAL SKELETONon BD DXA - AXIAL SKELETON * * *Final Repor t* * * DATE OF EXAM: Nov 09 2022 3:01PM [facility] 0804 - BD DXA - AXIAL SKELETON / PROCEDURE REASON: multiple diagnoses * * * * Physician Interpretation * * * * EXAM: BD DXA - AXIAL SKELETON HISTORY: Screening for osteoporosis Asymptomatic menopause Risk factors: No known risk factors. TECHNIQUE: Bone densitometry of lumbar spine and both hips performed on [employer] C bone densitometer. COMPARISON: No relevant prior studies are available. FINDINGS: LUMBAR SPINE: Bone mineral density (BMD) measured at L1-4 region of interest is 0.727 g/cm2. T-score = -2.9 Z-score = -1.1 Comments: None. LEFT HIP: BMD measured at femoral neck region of interest is 0.694 g/cm2. T-score = -1.4 Z-score = -0.1 Comments: None. RIGHT HIP: BMD measured at femoral neck region of interest is 0.666 g/cm2. T-score = -1.6 Z-score = -0.3 Comments: None. IMPRESSION: Diagnosis Based on BMD: OSTEOPOROSIS. Lowest T-score is -2.9 World Health Organization Definition of Osteoporosis and Osteopenia: T-score: comparison by standard deviation (SD) to a young adult population, matched for sex and ethnicity (used for postmenopausal women and men >50 years) and classified by WHO criteria ?-1.0: normal <-1.0 to >-2.5: osteopenia ?-2.5: osteoporosis ?-2.5 plus fragility fracture: severe osteoporosis Z-score: compared by SD to an age, sex, and ethnicity population (used for premenopausal women, men <50 years, and children instead of T-score WHO criteria) <-2.0: below expected range/low bone density for age, and a cause should be sought Equipment Superintendent: KATELYNN Transcribe Date/Time: Nov 13 2022 10:51A Dictated by : Dallas STRAUSS MD This examination was interpreted and the report reviewed and electronically signed by: Dallas STRAUSS MD on Nov 13 2022 10:53AM EST [id number] Normal [facility] DXA-AXIAL SKELETONon 023 [facility] CNOVon 10-20-2022 CNOV Office Visit (INTMWS ) ----- MACY MORALES ([id number]) 1955 F [place] Date Time Provider Department 10/20/22 10:20 AM ANA MCCARTY INTMWS During your visit today, we recorded the following information about you: Pulse Respiration Blood pressure Weight 60/minute 16/minute 120/68 83.9 kg Ana Mccarty APRN.ACETONE BUTTON PASTER 10/20/2022 10:43 AM Signed CC Patient presents with: F/U 3 Month HPI Macy Morales is a 67 year old female who presents to the office for blood pressure. Her visit today is for follow-up. Patient was last seen for this approximately 3 months ago. Medication changes: Yes, Lisinopril increased to 20 mg daily Taking all medications as prescribed: Yes Side effects: No Home BP's: No Denies: headache, chest pain, palpitations, dyspnea, and peripheral edema. Last 4 Encounter BP Readings: Date: BP: 10/20/2022 120/68 10/06/2022 145/72 08/07/2022 115/58 07/28/2022 125/64 Last 3 Encounter Wt Readings: Date: Wt: 10/20/2022 83.9 kg (185 lb) 10/06/2022 83.7 kg (184 lb 9.6 oz) 07/28/2022 84.1 kg (185 lb 8 oz) She was evaluated for thrombocytopenia including bone marrow biopsy and extensive lab work-up that was negative. She also recently evaluated for liver disease with labs and fibroscan, results pending. 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 MEDICATIONS lisinopril (ZESTRIL) 20 mg tablet Take 1 tablet by mouth once daily. pantoprazole DR (PROTONIX) 40 mg tablet Take 40 mg by mouth once daily as needed. blood sugar diagnostic (TRUE METRIX GLUCOSE TEST STRIP) test strip Test blood sugar(s) 1 times daily. Dx: Type 2 DM - Controlled E11.9 Insulin: No glipiZIDE (GLUCOTROL XL) 2.5 mg 24 hr tablet Take 1 tablet by mouth once daily. atorvastatin (LIPITOR) 10 mg tablet Take 1 tablet by mouth daily at bedtime. For cholesterol. clotrimazole-betamethason e (LOTRISONE) cream Apply to affected area twice daily as needed. metFORMIN ER (GLUCOPHAGE XR) 500 mg 24 hr tablet Take 2 tablets by mouth twice daily with meals. FAMILY HISTORY Problem Relation Age of Onset No Known Problems Father Aneurysm Mother Cancer Brother No Known Problems Maternal Grandmother No Known Problems Maternal Grandfather No Known Problems Paternal Grandmother No Known Problems Paternal Grandfather No Known Problems Child No Known Problems Child No Known Problems Child Glaucoma No Family History Macular Degen No Family History Social History Tobacco Use Smoking status: Never Smokeless tobacco: Never Vaping Use Vaping Use: Never used Substance Use Topics Alcohol use: Not Currently Drug use: Not Currently PHYSICAL EXAM BP 120/68 Pulse 60 Resp 16 Wt 83.9 kg (185 lb) BMI 36.13 kg/m? General Appearance: well appearing, in no acute distress, alert Pysch: mood and affect broad and appropriate DATA REVIEWED: Most recent labs ASSESSMENT/PLAN: 1. Primary hypertension - ICD9: 401.9, ICD10: I10 (primary diagnosis) - Controlled - Continue current medications - Recommend home blood pressure monitoring, to bring results to next visit - Encouraged sodium restriction, DASH or Mediterranean diet - Recommend regular aerobic exercise - Discussed need for and benefit of weight loss. BMI 36.13 kg/(m2) 2. Thrombocytopenia (HCC) - ICD9: 287.5, ICD10: D69.6 Stable on recent labs. follow-up as directed, 3. Abnormal liver enzymes - ICD9: 790.5, ICD10: R74.8 Follow-up with GI as directed 4. Pure hypercholesterolemia - ICD9: 272.0, ICD10: E78.00 Recheck in one month - LIPID PANEL BASIC 5. Controlled type 2 diabetes mellitus without complication, without long-term current use of insulin (HCC) - ICD9: 250.00, ICD10: E11.9 - HGB A1C 6. Screening for osteoporosis - ICD9: V82.81, ICD10: Z13.820 - DXA-AXIAL SKELETON 7. Asymptomatic menopause - ICD9: V49.81, ICD10: Z78.0 - DXA-AXIAL SKELETON Prescription instructions reviewed with patient as applicable. Potential red flag symptoms discussed with the patient. Reviewed appropriate action plan to take if red flag symptoms occur. Patient agreeable to treatment plan Ana Mccarty APRN.CNP Allergies As of Date: 10/20/2022 (No Known Allergies) Date Reviewed: 10/20/2022 Reviewed by: Ana Mccarty APRN.ACETONE BUTTON PASTER - Fully Assessed Reason for Visit: F/U 3 Month [443] Primary Visit Diagnosis:Primary hypertension [I10] Other Visit Diagnoses:Thrombocytopeni a (HCC) [D69.6] Abnormal liver enzymes [R74.8] Pure hypercholesterolemia [E78.00] Controlled type 2 diabetes marissa (more content not included)... Normal [facility] HEPATITIS A ANTIBODY, IGGon 10-07-2022 HEPATITIS A ANTIBODY IGG Positive Abnormal Negative [facility] Comment on above: Order Comment: Speci men Type: BLOOD SPECIMENOrdering Facility: [facility] Address: [address] [place] [address] Result Comment: The result suggests recent or past exposure to hepatitis A virus or hepatitis A vaccination. Clinical correlation required. Performed By: #### A HAVG ####[facility] [place] LABCLIA [id number] [facility] [id number] [place] [address] [place] Mitochondria Ab IF Ql (S)on 10-07-2022 Mitochondria M2 Ab IA Qn (S) 4.2 Units Normal <=20.0 [facility] Comment on above: Order Comment: Speci men Type: BLOOD SPECIMENOrdering Facility: [facility] Address: [address] [place] [address] Performed By: #### 1 4252-1, 27666-6 ####[facility] [id number] [address] Mitochondria M2 Ab Ql (S) Negative Normal Negative [facility] Comment on above: Order Comment: Speci men Type: BLOOD SPECIMENOrdering Facility: [facility] Address: [address] [place] [address] Result Comment: Anti -mitochondrial antibody test is used as an aid in diagnosis of primary biliary cholangitis. Clinical correlation is required. Performed By: #### 1 4252-1, 79081-3 ####[facility] [id number] [address] Nuclear Ab IA Ql (S)on 10-07 JACINTO SCR QUAL Negative Normal Negative [facility] Comment on above: Order Comment: Mirii ching Type: BLOOD SPECIMENOrdering Facility: [facility] Address: [address] [place] [address] Result Comment: The qualitative antinuclear antibody screen test performed using the following antigens: dsDNA, Chromatin, Ribosomal P, SS-A 60, SS-A 52, SS-B, Sm, SmRNP, GOLF COURSE EQUIPMENT OPERATOR A, GOLF COURSE EQUIPMENT OPERATOR 68, Scl-70, Maddy-1, and Centromere B. Methodology: Multiplex flow immunoassay. Performed By: #### 4 7383-5 ####[facility] [id number] [address] Smooth muscle Ab Ql (S)on ACTIN SMOOTH MUSCLE IGG QUALITATIVE Negative Normal Negative [facility] Comment on above: Order Comment: Mirii men Type: BLOOD SPECIMENOrdering Facility: [facility] Address: [address] [place] [address], [place] [address] Performed By: #### 1 4252-1, 21396-6 ####[facility] [id number] [address] STATES OF [facility] ACTIN SMOOTH MUSCLE IGG QUANTITATIVE 6 Units Normal <20 [facility] Comment on above: Order Comment: Speci men Type: BLOOD SPECIMENOrdering Facility: [facility] Address: [address] [place] [id number] Performed By: #### 1 4252-1, 66524-5 ####[facility] LABIA [id number] [address] OF [facility] CNOVon 10-06-2022 CNOV Office Visit (GASTA5 ) ----- MACY MORALES ([id number]) 1955 F [facility] Date Time Provider Department 10/06/22 2:15 PM CECILIA POWERS GASTA5 During your visit today, we recorded the following information about you: Temperature Pulse Blood pressure Weight 97.5 degrees 94/minute 145/72 83.7 kg Height 1.524 m Cecilia Powers MD 10/06/2022 3:37 PM Signed History and Physical Gastroenterology Patient: Macy Morales ( ) Primary Care Physician: Elder Reddy MD Subjective Chief Complaint: Abnormal LFTs and thrombocytopenia History of Present Illness: 67 year old female with a PMHx of type 2 diabetes, hypertension, hypercholesterolemia, abnormal liver enzymes, elevated TSH and prior right-sided Dover's palsy who presents for evaluation of abnormal liver enzymes and thrombocytopenia. Patient follows with student advisor Dr. Lopes for thrombocytopenia. In 2021, platelet count was 91,000. This year, her platelets were 72,000. She had a RUQ US in 08/2021 that suggested coarse echotexture of the liver. Echogenicity was normal. Surface contour was slightly lobular and no lesions were identified. No abnormalities of the biliary tree or gallbladder were noted. Spleen was noted to measure 10.9 cm in length. She had a bone marrow biopsy done on 08/24/22, which was negative. Her CMP over the last 2 years have suggested hepatocellular injury. She has no symptoms except for fatigue. She gets acid reflux if she eats late at night, but does not happen consistently. She is prescribed Protonix, but does not take it. Denies pain, diarrhea, constipation, nausea, vomiting. 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 pantoprazole DR (PROTONIX) 40 mg tablet Take 40 mg by mouth once daily as needed. blood sugar diagnostic (TRUE METRIX GLUCOSE TEST STRIP) test strip Test blood sugar(s) 1 times daily. Dx: Type 2 DM - Controlled E11.9 Insulin: No glipiZIDE (GLUCOTROL XL) 2.5 mg 24 hr tablet Take 1 tablet by mouth once daily. atorvastatin (LIPITOR) 10 mg tablet Take 1 tablet by mouth daily at bedtime. For cholesterol. clotrimazole-betamethason e (LOTRISONE) cream Apply to affected area twice daily as needed. metFORMIN ER (GLUCOPHAGE XR) 500 mg 24 hr tablet Take 2 tablets by mouth twice daily with meals. Active Inpatient Medications No current facility-administered medications for this visit. Allergies: ALLERGIES No Known Allergies Family History: FAMILY HISTORY Problem Relation Age of Onset No Known Problems Father Aneurysm Mother Cancer Brother No Known Problems Maternal Grandmother No Known Problems Maternal Grandfather No Known Problems Paternal Grandmother No Known Problems Paternal Grandfather No Known Problems Child No Known Problems Child No Known Problems Child Glaucoma No Family History Macular Degen No Family History Social History: Social History Tobacco Use Smoking status: Never Smokeless tobacco: Never Vaping Use Vaping Use: Never used Substance Use Topics Alcohol use: Not Currently Drug use: Not Currently Other Review of Systems: GENERAL: No fevers, chills, weight loss. Positive for fatigue. RESPIRATORY: No shortness of breath CARDIOVASCULAR: No chest pain, leg swelling GI: No abdominal pain, nausea, vomiting, diarrhea, constipation Objective Vitals: BP 145/72 (BP Site: Right Arm, BP Position: Sitting, BP Cuff Size: Regular Adult) Pulse 94 Temp 36.4 ?C (97.5 ?F) (Temporal) Ht 152.4 cm (5') Wt 83.7 kg (184 lb 9.6 oz) SpO2 99% BMI 36.05 kg/m? Physical Exam: GENERAL: No acute distress HEENT: Anicteric sclera. EOMI. PERRL. CARDIAC: Normal rate, regular rhythm. RESPIRATORY: Normal respiratory effort with symmetric expansion. Lungs clear to auscultation. No crackles or wheezes ABDOMEN: Bowel sounds present. Soft, non-tender, non-distended. EXTREMITIES: Warm. No peripheral edema NEURO: Oriented to person, place, time. PSYCH: Appropriate mood and affect Diagnostic Studies: Labs CBC: COAG: BMP: CHEM: HEPATIC: URINALYSIS:No results for input(s): UPH, SPGR, UGLUC, UKET, UBILI, UROBIL, UHB, URBC, UPROT, UWBC, LEUKEST, SSA in the last 168 hours. Invalid input(s): NITR CARDIAC: Imaging RUQ US (09/21/22): Coarse hepatic echotexture. Suboptimal visualization of the liver and pancreas, due to overlying bowel gas Otherw (more content not included)... Normal [facility] CNOVon 09-30-2022 CNOV Office Visit (OTOLMM ) ----- MACY MORALES ([id number]) 1955 F [place] Date Time Provider Department 09/30/22 1:00 PM BRITTANI SANTANA OTOLMM During your visit today, we recorded the following information about you: Brittani Santana MD 09/30/2022 1:32 PM Signed This consult is seen at the kind request of Memo Treviño of neurology, and my final recommendations will be communicated to the requesting health care provider by way of shared electronic medical record. This note is formatted with the impression and plan first and the history and physical to follow. IMPRESSION 57-year-old female with recent right-sided facial paralysis and right-sided tinnitus. RECOMMENDATION/PLAN I informed the patient I do not believe that her ear was the cause of her facial weakness. Her CT scan at the time of her facial weakness showed no evidence of mastoid or middle ear disease. For her tinnitus, I recommend pending hearing test. I will see her back after the hearing test. Chief Complaint Right-sided facial paralysis, right-sided ear pain. History of Present Illness Macy Morales is a 67 year old female present for evaluation of right-sided facial paralysis and right-sided ear pain. Patient stated that any May 2022, she developed right-sided ear pain. 3 days later, her right face became paralyzed. Patient was seen in outside hospital and had a CT scan and MRI scan all came back normal. The CT scan was reviewed by me and there was no evidence of middle ear effusion or mastoid effusion. Patient's ear pain lasted about a week and then subsided. Her facial movement has slowly returned. She denies any current ear pain or any parotid swelling/pain. She does endorse tinnitus in the right ear since May. She feels like her hearing has decreased slightly. She denies any vertigo. 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 Controlled type 2 diabetes mellitus without complication, without long-term current use of insulin (HCC) 04/28/2021 COVID-19 02/05/2020 Obesity, Class II, BMI 35-39.9 07/23/2021 Primary hypertension 07/23/2021 Pure hypercholesterolemia 11/10/2019 PAST SURGICAL HISTORY Procedure Laterality Date NONE FAMILY HISTORY Problem Relation Age of Onset No Known Problems Father Aneurysm Mother Cancer Brother No Known Problems Maternal Grandmother No Known Problems Maternal Grandfather No Known Problems Paternal Grandmother No Known Problems Paternal Grandfather No Known Problems Child No Known Problems Child No Known Problems Child Glaucoma No Family History Macular Degen No Family History CURRENT OUTPATIENT MEDICATIONS Current Outpatient Medications on File Prior to Visit Medication Sig lisinopril (ZESTRIL) 20 mg tablet Take 1 tablet by mouth once daily. pantoprazole DR (PROTONIX) 40 mg tablet Take 40 mg by mouth once daily as needed. blood sugar diagnostic (TRUE METRIX GLUCOSE TEST STRIP) test strip Test blood sugar(s) 1 times daily. Dx: Type 2 DM - Controlled E11.9 Insulin: No glipiZIDE (GLUCOTROL XL) 2.5 mg 24 hr tablet Take 1 tablet by mouth once daily. atorvastatin (LIPITOR) 10 mg tablet Take 1 tablet by mouth daily at bedtime. For cholesterol. clotrimazole-betamethason e (LOTRISONE) cream Apply to affected area twice daily as needed. metFORMIN ER (GLUCOPHAGE XR) 500 mg 24 hr tablet Take 2 tablets by mouth twice daily with meals. No current facility-administered medications on file prior to visit. ALLERGIES ALLERGIES No Known Allergies The remainder of the patient's history and review of systems is on the outpatient questionaire which was reviewed by me and placed in the outpatient chart. PHYSICAL EXAMINATION Appearance: General examination of the patient's external face, head and neck reveals no abnormalities. The patient is not retrognathic The patient's voice is strong and clear and they communicate easily. Ears: Exam of the ears revealed normal appearing external auditory canals, tympanic membranes, and middle ears. No signs of infection or fluid were seen. Nose: External nasal exam was normal. Throat: There were no lesions to visualization or palpation of the lips, cheeks, gums, floor of mouth, tongue, hard and soft palate, tonsillar pillars or posterior pharyngeal wall. Neck: Palpation of the neck revealed no adenopathy, salivary gland masses or asymmetry, or thyroid masses or enlargement. Cranial nerve VII: Right-sided House-Brackman 1 out of 6 except for right upper lip which is 2 out of 6. Brittani Santana MD Referring Provider: MEMO TREVIÑO [[id number]] Allergies As of Date: 09/30/2022 (No Known Allergies) Date Reviewed: 09/30/2022 Reviewed by: Awilda Chi - Fully Assessed Reason for Visit: Consult [173] Cmt: Right otalgia/ tinnitus, sx since 06/01/22 Primary Visit Diagnosis:Right-sided tinnitus [H93.11] Other Visit Diagnosis (more content not included)... Normal [facility] CBC W Auto Differential pane l (Bld)on 09-21-2022 Basophils (Bld) [#/Vol] 10*3/uL Normal <0.11 [facility] Comment on above: Order Comment: Speci men Type: BLOOD SPECIMENOrdering Facility: [facility] Address: [address] [place] [address] Performed By: #### 5 7021-8 ####[facility] MILLWNCLIA [id number] [place] [address] [place] Basophils/100 WBC (Bld) 0.5 % Normal [facility] Comment on above: Order Comment: Speci men Type: BLOOD SPECIMENOrdering Facility: [facility] Address: [address] [place] [address] Performed By: #### 5 7021-8 ####[facility]ENTERWMILIA [id number] [place] [address] [place] Differential cell count method Nom (Bld) Auto Normal [facility] Comment on above: Order Comment: Speci men Type: BLOOD SPECIMENOrdering Facility: [facility] Address: [address] [place] [address] Performed By: #### 5 7021-8 ####[facility] MILLWNCLIA [id number] [place] [address] [place] Eosinophils (Bld) [#/Vol] 0.11 10*3/uL Normal <0.46 [facility] Comment on above: Order Comment: Speci men Type: BLOOD SPECIMENOrdering Facility: [facility] Address: [address] [place] [address] Performed By: #### 5 7021-8 ####[facility] CENTERWNCLIA [id number] [place] [address] [place] Eosinophils/100 WBC (Bld) 2.6 % Normal [facility] Comment on above: Order Comment: Speci men Type: BLOOD SPECIMENOrdering Facility: [facility] Address: [address] [place] [address] Performed By: #### 5 7021-8 ####[facility] FOR CHILDRENNCLIA [id number] [place] [address] [place] Erythrocyte distribution width (RBC) [Ratio] 14.6 % Normal 11.5-15.0 [facility] Comment on above: Order Comment: Speci men Type: BLOOD SPECIMENOrdering Facility: [facility] Address: [address] [place] [address] Performed By: #### 5 7021-8 ####[facility]DRENNCSALT [facility] [id number] [place] [address] [place] Hematocrit (Bld) [Volume fraction] 42.3 % Normal 36.0-46.0 [facility] Comment on above: Order Comment: Speci men Type: BLOOD SPECIMENOrdering Facility: [facility] Address: [address] [place] [address] Performed By: #### 5 7021-8 ####[facility] FOR CHILDRENNCLI [id number] [place] [address] [place] Hemoglobin (Bld) [Mass/Vol] 13.9 g/dL Normal 11.5-15.5 [facility] Comment on above: Order Comment: Speci men Type: BLOOD SPECIMENOrdering Facility: [facility] Address: [address] [place] [address] Performed By: #### 5 7021-8 ####[facility] FOR CHILDRENNCLIA [id number] [place] [address] [place] Immature granulocytes (Bld) [#/Vol] 10*3/uL Normal <0.10 [facility] Comment on above: Order Comment: Speci men Type: BLOOD SPECIMENOrdering Facility: [facility] Address: [address] [place] [address] Performed By: #### 5 7021-8 ####[facility] BREEZYNAHUN [id number] [place] [address] [place] Immature granulocytes/100 WBC (Bld) 0.2 % Normal [facility] Comment on above: Order Comment: Speci men Type: BLOOD SPECIMENOrdering Facility: [facility] Address: [address] [place] [address] Performed By: #### 5 7021-8 ####[facility] CHILDRENREESALT [facility] [id number] [place] [address] [place] Lymphocytes (Bld) [#/Vol] 0.99 10*3/uL Low 1.00-4.0 0 [facility] Comment on above: Order Comment: Speci men Type: BLOOD SPECIMENOrdering Facility: [facility] Address: [address] [place] [address] Performed By: #### 5 7021-8 ####[facility] [id number] [place] [address] [place] Lymphocytes/100 WBC (Bld) 23.7 % Normal [facility] Comment on above: Order Comment: Speci men Type: BLOOD SPECIMENOrdering Facility: [facility] Address: [address] [place] [address] Performed By: #### 5 7021-8 ####[facility] [id number] [place] [address] [place] MCH (RBC) [Entitic mass] 30.1 pg Normal 26.0-34.0 [facility] Comment on above: Order Comment: Speci men Type: BLOOD SPECIMENOrdering Facility: [facility] Address: [address] [place] [address] Performed By: #### 5 7021-8 ####[facility] BENEDICTOWNCLIA [id number] [place] [address] [place] MCHC (RBC) [Mass/Vol] 32.9 g/dL Normal 30.5-36.0 [facility] Comment on above: Order Comment: Speci men Type: BLOOD SPECIMENOrdering Facility: [facility] Address: [address] [place] [address] Performed By: #### 5 7021-8 ####[facility] FOR CHILDRENNCLIA [id number] [place] [address] [place] MCV (RBC) [Entitic vol] 91.6 fL Normal 80.0-100.0 [facility] Comment on above: Order Comment: Speci men Type: BLOOD SPECIMENOrdering Facility: [facility] Address: [address] [place] [address] Performed By: #### 5 7021-8 ####[facility] [id number] [place] [address] [place] Monocytes (Bld) [#/Vol] 0.44 10*3/uL Normal <0.87 [facility] Comment on above: Order Comment: Speci men Type: BLOOD SPECIMENOrdering Facility: [facility] Address: [address] [place] [address] Performed By: #### 5 7021-8 ####[facility] FOR CHILDRENREELIA [id number] [address] [place] Monocytes/100 WBC (Bld) 10.6 % Normal [facility] Comment on above: Order Comment: Speci men Type: BLOOD SPECIMENOrdering Facility: [facility] Address: [address] [place] [address] Performed By: #### 5 7021-8 ####[facility] HEALTHLIA [id number] [place] [address] [place] Neutrophils (Bld) [#/Vol] 2.60 10*3/uL Normal 1.45-7.5 0 [facility] Comment on above: Order Comment: Speci men Type: BLOOD SPECIMENOrdering Facility: [facility] Address: [address] [place] [address] Performed By: #### 5 7021-8 ####[facility]ENTERWMILIA [id number] [place] [address] [place] Neutrophils/100 WBC (Bld) 62.4 % Normal [facility] Comment on above: Order Comment: Speci men Type: BLOOD SPECIMENOrdering Facility: [facility] Address: [address] [place] [address] Performed By: #### 5 7021-8 ####[facility] FOR CHILDRENREEA [id number] [place] [address] [place] Nucleated RBC (Bld) [#/Vol] 10*3/uL Normal <0.01 [facility] Comment on above: Order Comment: Speci men Type: BLOOD SPECIMENOrdering Facility: [facility] Address: [address] [place] [address] Performed By: #### 5 7021-8 ####[facility] HEALTHLIA [id number] [place] [address] [place] Nucleated RBC/100 WBC (Bld) [Ratio] 0.0 /100 WBC Normal [facility] Comment on above: Order Comment: Speci men Type: BLOOD SPECIMENOrdering Facility: [facility] Address: [address] [place] [address] Performed By: #### 5 7021-8 ####[facility] FOR CHILDRENNCLIA [id number] [place] [address] [place] Platelet mean volume (Bld) [Entitic vol] 12.0 fL Normal 9.0-12.7 [facility] Comment on above: Order Comment: Speci men Type: BLOOD SPECIMENOrdering Facility: [facility] Address: [address] [place] [address] Performed By: #### 5 7021-8 ####[facility] FOR CHILDRENNCA [id number] [place] [address] [place] Platelets (Bld) [#/Vol] 72 10*3/uL Low 150-400 C [facility] Comment on above: Order Comment: Speci men Type: BLOOD SPECIMENOrdering Facility: [facility] Address: [address] [place] [address] Result Comment: No c lot detected. Performed By: #### 5 7021-8 ####[facility] [id number] [place] [address] [place] RBC (Bld) [#/Vol] 4.62 10*6/uL Normal 3.90-5.20 [facility] Comment on above: Order Comment: Speci men Type: BLOOD SPECIMENOrdering Facility: [facility] Address: [address] [place] [address] Performed By: #### 5 7021-8 ####[facility] FOR CHILDRENNCA [id number] [place] [address] [place] WBC (Bld) [#/Vol] 4.17 10*3/uL Normal 3.70-11.00 [facility] Comment on above: Order Comment: Speci men Type: BLOOD SPECIMENOrdering Facility: [facility] Address: [address] [place] [address] Performed By: #### 5 7021-8 ####[facility] FOR CHILDRENNCLI [id number] [place] [address] [place] DNA EXTRACTION BONE MARROW ( [place] COAT)on 09-21-2022 DNA EXTRACTION BONE MARROW (BUFFY COAT) Normal [facility] Comment on above: Order Comment: Speci men Type: BONE MARROW SPECIMEN Ordering Facility: [facility] Address: [address], [place] [address] Result Comment: This specimen was received and successfully processed for future DNA purification should molecular testing be needed. Specimens will be available for 3 years from date of collection. To order testing on this specimen for [facility] patients, please place an [facility] order for DNA and RNA Clinical Testing ([id number]). To order testing for patients outside of the [facility] system, please request DNA and RNA for Clinical Testing, order code [id number]. If additional paperwork is required for testing, please send completed forms via secure email to . Performed By: #### N UCBUF #### [facility] CLIA [id number] [address] [id number] [place] No Panel Informationon 09-21 [facility] US ABD RIGHT UPPER QUADRANTo n 09-21-2022 US ABD RIGHT UPPER QUADRANT * * *Final Report* * * DATE OF EXAM: Sep 21 2022 9:41AM WRU 1032 - US ABD RIGHT UPPER QUADRANT / PROCEDURE REASON: multiple diagnoses * * * * Physician Interpretation * * * * EXAMINATION: RIGHT UPPER QUADRANT ULTRASOUND CLINICAL HISTORY: Thrombocytopenia. Elevated LFTs TECHNIQUE: Sonography of the right upper quadrant was performed. Images were obtained and stored in a permanent archive. MQ: URUQ_2 COMPARISON: None. RESULT: Pancreas: Normal sonographic appearance. Portions obscured: Portions of the head, distal body and tail are suboptimally seen due to overlying bowel gas Liver: Overlying bowel gas obscures portions of the right and left lobe Echotexture: Coarse Echogenicity: Normal Surface contour: Smooth Lesions: None. Biliary: No intrahepatic biliary duct dilation. CBD: 0.3 cm at the hilum. Gallbladder: Normal caliber -Contents: No cholelithiasis -Wall: Normal -Other: No pericholecystic fluid. Right Kidney: The right kidney measures 9.8 and the left 10.7 cm in length. No hydronephrosis Ascites: None. The spleen is 11.3 cm in length. No focal abnormality IMPRESSION: Coarse hepatic echotexture. Suboptimal visualization of the liver and pancreas, due to overlying bowel gas Otherwise normal sonographic appearance of the right upper quadrant. Normal sonographic appearance of the spleen Equipment Superintendent: [facility] Transcribe Date/Time: Sep 23 2022 10:51A Dictated by : LEONID TEJADA MD This examination was interpreted and the report reviewed and electronically signed by: LEONID TEJADA MD on Sep 23 2022 10:54AM EST [id number] Normal [facility] US ABD SPLEEN -NBon 09-22-19 US ABD SPLEEN -NB * * *Final Report* * * DATE OF EXAM: Sep 21 2022 9:41AM WRU 1232 - US ABD SPLEEN -NB / PROCEDURE REASON: multiple diagnoses * * * * Physician Interpretation * * * * EXAMINATION: RIGHT UPPER QUADRANT ULTRASOUND CLINICAL HISTORY: Thrombocytopenia. Elevated LFTs TECHNIQUE: Sonography of the right upper quadrant was performed. Images were obtained and stored in a permanent archive. MQ: URUQ_2 COMPARISON: None. RESULT: Pancreas: Normal sonographic appearance. Portions obscured: Portions of the head, distal body and tail are suboptimally seen due to overlying bowel gas Liver: Overlying bowel gas obscures portions of the right and left lobe Echotexture: Coarse Echogenicity: Normal Surface contour: Smooth Lesions: None. Biliary: No intrahepatic biliary duct dilation. CBD: 0.3 cm at the hilum. Gallbladder: Normal caliber -Contents: No cholelithiasis -Wall: Normal -Other: No pericholecystic fluid. Right Kidney: The right kidney measures 9.8 and the left 10.7 cm in length. No hydronephrosis Ascites: None. The spleen is 11.3 cm in length. No focal abnormality IMPRESSION: Coarse hepatic echotexture. Suboptimal visualization of the liver and pancreas, due to overlying bowel gas Otherwise normal sonographic appearance of the right upper quadrant. Normal sonographic appearance of the spleen Equipment Superintendent: [facility] Transcribe Date/Time: Sep 23 2022 10:51A Dictated by : LEONID TEJADA MD This examination was interpreted and the report reviewed and electronically signed by: LEONID TEJADA MD on Sep 23 2022 10:54AM EST [id number] Normal [facility] BONE MARROW ANALYSISon 08-24 CASE REPORT Normal [facility] Comment on above: Order Comment: Morenita flower Type: BONE MARROW SPECIMEN Ordering Facility: [facility] Address: [address] [place] [address] Result Comment: Bone Marrow Pathology Report Case: [id number] Authorizing Provider: Kavon Lopes DO Collected: 08/24/2022 09:35 AM Ordering Location: [facility] Received: 08/24/2022 10:03 AM RADIOLOGY Pathologist: Aaliyah Truong MD Specimens: A) - BONE MARROW ASPIRATE RIGHT POSTERIOR ILIAC CREST B) - BONE MARROW BIOPSY RIGHT POSTERIOR ILIAC CREST C) - BONE MARROW CLOT RIGHT POSTERIOR ILIAC CREST D) - Peripheral blood smear Performed By: #### B MRT #### [facility] CLIA [id number] [address] [place] [address] Result Comment: Flow Cytometry Case: [id number] Authorizing Provider: Kavon Lopes DO Collected: 08/24/2022 09:35 AM Ordering Location: INTERVENT[facility]AL Received: 08/24/2022 02:52 PM RADIOLOGY Pathologist: Aaliyah Truong MD Specimen: Bone Marrow Performed By: #### B MHOLDRFLX, BMHOLD #### [facility] CLIA [id number] [address] [place] [address] DIAGNOSIS COMMENT Normal [facility] Comment on above: Order Comment: Morenita flower Type: BONE MARROW SPECIMEN Ordering Facility: [facility] Address: [address] [place] [address] Result Comment: The patient is being evaluated for thrombocytopenia. Flow cytometric analysis was performed on the bone marrow aspirate and showed no evidence of a lymphoproliferative disorder or increased CG79-[id number] blasts. Correlation with results of pending cytogenetic analysis is recommended. Performed By: #### B MRT #### [facility] CLIA [id number] [address] [place] [address] Result Comment: This assay is not designed to detect minimal residual disease, plasma cell neoplasms, or myeloid antigen maturational patterns. This test was developed and its performance characteristics determined by [facility]'s [facility] Pathology and Laboratory [facility] [place] ([facility]). It has not been cleared or approved by the FDA. [facility] is regulated under CLIA as qualified to perform high-complexity testing. This test is used for clinical purposes. It should not be regarded as investigational or for research. Performed By: #### B MHASHLEIGH, BMHOLD #### [facility] CLIA [id number] [address] [place] [address] FINAL DIAGNOSIS Normal [facility] Comment on above: Order Comment: Speci men Type: BONE MARROW SPECIMEN Ordering Facility: [facility] Address: [address] [place] [address] Result Comment: A-C. Bone marrow, aspirate smears, core biopsy, and clot section: - Mildly hypocellular marrow (20-25%) with trilineage hematopoiesis. - Decreased stainable iron. - See comment. D. Peripheral blood smear: - Thrombocytopenia. 08/25/22 Performed By: #### B MRT #### [facility] CLIA [id number] [address] [place] [address] FINAL PERFORMING LAB Normal [facility] Comment on above: Order Comment: Mirii ching Type: BONE MARROW SPECIMEN Ordering Facility: [facility] Address: [address] [place] [address] Result Comment: Diag nostic interpretation performed at [facility], [address] [place] [address] CLIA# [id number] Rehab Services Aide: Neftaly López M.D. Performed By: #### B MRT #### [facility] CLIA [id number] [address] [place] [address] Performed By: #### B MHOLDRFCAITLIN, BMHOLD #### [facility] CLIA [id number] [address] [place] [address] [place] GROSS DESCRIPTION Normal [facility] Comment on above: Order Comment: Speci ching Type: BONE MARROW SPECIMEN Ordering Facility: [facility] Address: [address] [place], [place] [id number] Result Comment: A. B ONE MARROW ASPIRATE RIGHT POSTERIOR ILIAC CREST Received are air-dried bone marrow aspirate smears. Submitted for light microscopy. B. BONE MARROW BIOPSY RIGHT POSTERIOR ILIAC CREST Received in formalin are two segments of cylindrical tissue aggregating to 2.5 x 0.3 x 0.3 cm, gant to red-brown and of a firm consistency. Totally submitted in formalin in one cassette after decalcification. C. BONE MARROW CLOT RIGHT POSTERIOR ILIAC CREST Received in formalin is a segment of red-brown hemorrhagic material measuring 2.5 x 2.3 x 0.3 cm. Totally submitted in one cassette. D. Peripheral blood smear Received is a peripheral blood smear. Submitted for light microscopy. Gross examination performed at [facility], [address] [place] [address] 08/24/2022 7:24 PM Performed By: #### B MRT #### [facility] CLIA [id number] [address] [place] [address] MICROSCOPIC DESCRIPTION Normal [facility] Comment on above: Order Comment: Morenita flower Type: BONE MARROW SPECIMEN Ordering Facility: [facility] Address: [address] [place], [place] [address] Result Comment: JAMILAH PHERAL BLOOD: CBC (08/24/2022 9:38 AM) Diff: Auto WBC 4.21 k/uL Neutrophils % 57.7 Hemoglobin 13.2 g/dL Lymphocytes % 26.4 MCV 91.2 fL Monocytes % 11.6 RDW-CV 14.6 % Eosinophils % 3.3 Platelet Count 62 k/uL Basophils % 0.5 Immature Granulocytes % 0.5 Morphology/Interpretation: Thrombocytopenia. Otherwise unremarkable. BONE MARROW ASPIRATE: Result Normal Range 1 % Blasts 0-2 0 % Promyelocytes 1-5 45 % Myelos/Metas/Bands/Segs 32-72 2 % Eosinophils 1-6 0 % Basophils 0-1 2 % Monocytes 0-4 34 % Erythroid precursors 13-37 14 % Lymphocytes 7-23 2 % Plasma cells 0-2 Myeloid/Erythro (1.5-4): 1.5 Cells counted: 300. Iron stain result: Decreased. Ring sideroblasts absent. Specimen Quality: Cellular and spicular. Megakaryocytes: Present and normal. Erythropoiesis: Progressive maturation. Granulopoiesis: Progressive maturation. BONE MARROW similar to biopsy: Adequacy: Adequate. Cellularity: Mildly decreased (20-25%). ME ratio: Normal. Hematopoiesis: Trilineage maturation. Megakaryocytes: Adequate. Megakaryocyte morphology: Normal. Lymphoid infiltrate: None seen. Bone trabeculae: Normal. CLOT SECTION: Marrow particles: Many. Morphology: Similar to biopsy. ANCILLARY TESTS: Flow cytometry: Performed. Cytogenetics: Pending. FISH: N/A. Molecular: Buffy coat stored (?). Performed By: #### B MRT #### [facility] CLIA [id number] [address] [place], [place] [address] [address] BONE MARROW CHROMOSOME ANALo n 08-24-2022 CHROMOSOME BM Normal [facility] Comment on above: Order Comment: Order ing Facility: [facility] Address: [address] [place] [address] Result Comment: Denver altman Accession Number: [id number] Doctor: Kavon Lopes Pathologist: [facility] No: [id number] Clinical diagnosis: Thrombocytopenia Specimen Type: Bone Marrow Received Date: 08/24/2022 Number of cells counted: 20 Number of cells analyzed: 20 Number of cells karyotyped: 20 Banding resolution: 400 Banding method: G-banding DIAGNOSIS: 46,XX[20] INTERPRETATION: Normal, female karyotype COMMENT: Ten metaphase cells were analyzed from the culture supplemented with GM-CSF and ten metaphase cells were analyzed from the 24 hour unstimulated culture. Twenty cells analyzed showed a 46,XX karyotype or had random chromosomal gain, attributed to culture artifact. There was no significant numerical chromosome abnormality and no structural change detected within the limits of resolution. Clinical and pathologic correlation is recommended. As reviewed by Guevara Pinto, PhD, FACMG Performed by [facility] Pathology and Laboratory Medicine [place] Division of Molecular Pathology [facility] Lab, [id number] [place] [address]. [place] [address] Toll free: Performed By: #### C [facility] #### [facility] CLIA [id number] [address] [facility] [id number] [place] BRIEF OP NOTon 08-24-2022 BRIEF OP NOT HNO ID: [id number] Author: Rocio Mendoza MD Service: Radiology Author Type: Physician Type: Brief Op Note Filed: 08/24/2022 9:32 AM Note Text: BRIEF PROCEDURE NOTE PATIENT NAME: Macy Morales LOG ID: [id number] Procedure Date: 08/24/2022 PLEASE SEE FULL PROCEDURE NOTE UNDER: Chart Review > Imaging Procedure: CT Guided bone marrow biopsy of posterior RIGHT iliac bone. 11g [employer] biopsy system was used. Specimens: Aspirate (10 cc) and core sample obtained and accepted by the diesel maintenance technician who was on hand. Operators: Rocio Mendoza MD Preoperative Diagnosis: thrombocytopenia Postoperative Diagnosis: Same Estimated Blood Loss: 2 cc Condition: Stable Complications: none Timeout Time: 915 Procedure Start Time: 915 Procedure End Time: 919 SIGNATURE: Rolando Mendoza MD DATE: August 24, 2022 TIME: 9:32 AM Normal [facility] CBC W Auto Differential pane l (Bld)on 08-24-2022 Basophils (Bld) [#/Vol] 10*3/uL Normal <0.11 [facility] Comment on above: Order Comment: Morenita flower Type: BLOOD SPECIMEN Ordering Facility: [facility] Address: [address] [place] [address] Performed By: #### 5 7021-8 #### [facility] [place] [id number] [address] [place] [address] [place] Basophils/100 WBC (Bld) 0.5 % Normal [facility] Comment on above: Order Comment: Morenita flower Type: BLOOD SPECIMEN Ordering Facility: [facility] Address: [address] [place] [address] Performed By: #### 5 7021-8 #### [facility] CLIA [id number] [address] [place] [address] [place] Differential cell count method Nom (Bld) Auto Normal [facility] Comment on above: Order Comment: Morenita flower Type: BLOOD SPECIMEN Ordering Facility: [facility] Address: [address] [address] Performed By: #### 5 7021-8 #### [facility] CLIA [id number] [address] [place] [address] [place] Eosinophils (Bld) [#/Vol] 0.14 10*3/uL Normal <0.46 [facility] Comment on above: Order Comment: Speci men Type: BLOOD SPECIMEN Ordering Facility: [facility] Address: [address] [address] Performed By: #### 5 7021-8 #### [facility] CLIA [id number] [address] [place] [address] [place] Eosinophils/100 WBC (Bld) 3.3 % Normal [facility] Comment on above: Order Comment: Speci men Type: BLOOD SPECIMEN Ordering Facility: [facility] Address: [address] [address] Performed By: #### 5 7021-8 #### [facility] CLIA [id number] [address] [place] [address] [place] Erythrocyte distribution width (RBC) [Ratio] 14.6 % Normal 11.5-15.0 [facility] Comment on above: Order Comment: Speci men Type: BLOOD SPECIMEN Ordering Facility: [facility] Address: [address] [address] Performed By: #### 5 7021-8 #### [facility] CLIA [id number] [address] [place] [address] [place] Hematocrit (Bld) [Volume fraction] 38.4 % Normal 36.0-46.0 [facility] Comment on above: Order Comment: Speci men Type: BLOOD SPECIMEN Ordering Facility: [facility] Address: [address] [place] [address] Performed By: #### 5 7021-8 #### [facility] CLIA [id number] [address] [place] [address] [place] Hemoglobin (Bld) [Mass/Vol] 13.2 g/dL Normal 11.5-15.5 [facility] Comment on above: Order Comment: Speci men Type: BLOOD SPECIMEN Ordering Facility: [facility] Address: [address] [address] Performed By: #### 5 7021-8 #### [facility] CLIA [id number] [address] [place] [address] [place] Immature granulocytes (Bld) [#/Vol] 10*3/uL Normal <0.10 [facility] Comment on above: Order Comment: Speci men Type: BLOOD SPECIMEN Ordering Facility: [facility] Address: [address] [address] Performed By: #### 5 7021-8 #### [facility] CLIA [id number] [address] [place] [address] [place] Immature granulocytes/100 WBC (Bld) 0.5 % Normal [facility] Comment on above: Order Comment: Speci men Type: BLOOD SPECIMEN Ordering Facility: [facility] Address: [address] Performed By: #### 5 7021-8 #### [facility] CLIA [id number] [address] [place] [address] [place] Lymphocytes (Bld) [#/Vol] 1.11 10*3/uL Normal 1.00-4.0 0 [facility] Comment on above: Order Comment: Speci men Type: BLOOD SPECIMEN Ordering Facility: [facility] Address: [address] Performed By: #### 5 7021-8 #### [facility] CLIA [id number] [address] [place] [address] [place] Lymphocytes/100 WBC (Bld) 26.4 % Normal [facility] Comment on above: Order Comment: Speci men Type: BLOOD SPECIMEN Ordering Facility: [facility] Address: [address] [address] Performed By: #### 5 7021-8 #### [facility] CLIA [id number] [address] [place] [address] [place] MCH (RBC) [Entitic mass] 31.4 pg Normal 26.0-34.0 [facility] Comment on above: Order Comment: Speci men Type: BLOOD SPECIMEN Ordering Facility: [facility] Address: [address] [address] Performed By: #### 5 7021-8 #### [facility] CLIA [id number] [address] [place] [address] [place] MCHC (RBC) [Mass/Vol] 34.4 g/dL Normal 30.5-36.0 [facility] Comment on above: Order Comment: Speci men Type: BLOOD SPECIMEN Ordering Facility: [facility] Address: [address] [place] [address] Performed By: #### 5 7021-8 #### [facility] IA [id number] [address] [place] [address] [place] MCV (RBC) [Entitic vol] 91.2 fL Normal 80.0-100.0 [facility] Comment on above: Order Comment: Speci men Type: BLOOD SPECIMEN Ordering Facility: [facility] Address: [address] [place] [address] Performed By: #### 5 7021-8 #### [facility] [place] [id number] [address] [place] [address] [place] Monocytes (Bld) [#/Vol] 0.49 10*3/uL Normal <0.87 [facility] Comment on above: Order Comment: Speci men Type: BLOOD SPECIMEN Ordering Facility: [facility] Address: [address] [place] [address] Performed By: #### 5 7021-8 #### [facility] CLIA [id number] [address] [place] [address] [place] Monocytes/100 WBC (Bld) 11.6 % Normal [facility] Comment on above: Order Comment: Speci men Type: BLOOD SPECIMEN Ordering Facility: [facility] Address: [address] [place], [place] [address] Performed By: #### 5 7021-8 #### [facility] CLIA [id number] [address] [place] [address] [place] Neutrophils (Bld) [#/Vol] 2.43 10*3/uL Normal 1.45-7.5 0 [facility] Comment on above: Order Comment: Speci men Type: BLOOD SPECIMEN Ordering Facility: [facility] Address: [address] [address] Performed By: #### 5 7021-8 #### [facility] CLIA [id number] [address] [place] [address] [place] Neutrophils/100 WBC (Bld) 57.7 % Normal [facility] Comment on above: Order Comment: Speci men Type: BLOOD SPECIMEN Ordering Facility: [facility] Address: [address] [address] Performed By: #### 5 7021-8 #### [facility] CLIA [id number] [address] [place] [address] [place] Nucleated RBC (Bld) [#/Vol] 10*3/uL Normal <0.01 [facility] Comment on above: Order Comment: Speci men Type: BLOOD SPECIMEN Ordering Facility: [facility] Address: [address] [address] Performed By: #### 5 7021-8 #### [facility] CLIA [id number] [address] [place] [address] [place] Nucleated RBC/100 WBC (Bld) [Ratio] 0.0 /100 WBC Normal [facility] Comment on above: Order Comment: Speci men Type: BLOOD SPECIMEN Ordering Facility: [facility] Address: [address] Performed By: #### 5 7021-8 #### [facility] CLIA [id number] [address] [place] [address] [place] Platelet mean volume (Bld) [Entitic vol] 12.2 fL Normal 9.0-12.7 [facility] Comment on above: Order Comment: Speci men Type: BLOOD SPECIMEN Ordering Facility: [facility] Address: [address] [place] [address] Performed By: #### 5 7021-8 #### [facility] CLIA [id number] [address] [place] [address] [place] Platelets (Bld) [#/Vol] 62 10*3/uL Low 150-400 [facility] Comment on above: Order Comment: Speci men Type: BLOOD SPECIMEN Ordering Facility: [facility] Address: [address] [place] [address] Result Comment: No c lot detected. Performed By: #### 5 7021-8 #### [facility] CLIA [id number] [address] [place] [address] [place] RBC (Bld) [#/Vol] 4.21 10*6/uL Normal 3.90-5.20 [facility] Comment on above: Order Comment: Speci men Type: BLOOD SPECIMEN Ordering Facility: [facility] Address: [address] [address] Performed By: #### 5 7021-8 #### [facility] CLIA [id number] [address] [place] [address] [place] WBC (Bld) [#/Vol] 4.21 10*3/uL Normal 3.70-11.00 [facility] Comment on above: Order Comment: Speci men Type: BLOOD SPECIMEN Ordering Facility: [facility] Address: [address] [place] [address] Performed By: #### 5 7021-8 #### [facility] CLIA [id number] [address] [place] [address] [facility] [place] CT BIOPSY BONE MARROW (HEMO) on 08-24-2022 CT BIOPSY BONE MARROW (HEMO) * * *Final Report* * * DATE OF EXAM: Aug 24 2022 9:26AM [facility] 2037 - CT BIOPSY BONE MARROW (HEMO) / PROCEDURE REASON: Thrombocytopenia * * * * Physician Interpretation * * * * RESULT: HISTORY: Thrombocytopenia CT Guided bone marrow biopsy posterior right iliac bone CT Dose-Length Product (DLP): 207.24 mGy*cm. CT Dose Reduction Employed: Automated exposure control(AEC) and iterative recon CHECKLIST: Pre-procedure Sign-in: Safety Checklist Performed: Yes. The team confirmed the correct patient, correct site, site marking, correct procedure, and correct position. Timeout Time: A Timeout was performed immediately prior to procedure. Sign-out: Communication performed: Yes PROCEDURE: CT guidance was utilized for this procedure. Procedure related CT images were acquired and stored in the permanent archive. After discussing the risks, benefits and alternatives of this procedure with the patient, informed consent was obtained. The patient was placed prone on the CT examination table and connected to physiologic monitoring. Limited transaxial images of the pelvis were obtained without the use of oral or intravenous contrast materials. The posterior right iliac bone was localized and the overlying skin was prepped and draped in the usual sterile fashion (with ChloraPrep and 3 minutes of drying time was allowed). After numbing the overlying skin with local anesthetic, a small incision was made. A 11g OncCall Britannia bone biopsy needle was advanced to the posterior cortex of the biopsy site under CT guidance and local anesthetic was administered there as well. (5 cc Lidocaine 1 % was administered). The 11 g Oncontrol bone biopsy needle was then advanced through the cortex of the iliac bone. 10 cc of bone marrow aspirate was obtained. Subsequently, the [employer] power drill was used to obtain a core biopsy of the bone marrow. 1 core sample was obtained. The diesel maintenance technician was on hand to accept the specimens. The patient tolerated the procedure well and left the radiology department in stable condition. There were no immediate complications. MODERATE SEDATION: 1 milligrams of Versed and 50 micrograms of fentanyl were intravenously administered during this procedure. Continuous ECG, pulse oximetry and cardiopulmonary monitoring were performed by the interventional radiology nurse throughout the procedure during which IV sedation was administered. Intra-service time: 15 minutes Patient monitoring: I personally supervised and directed an independent trained observer who assisted in monitoring the patient?s level of consciousness and physiological status throughout the procedure. Specimens: Aspirate (10 cc) and core sample obtained and accepted by the diesel maintenance technician who was on hand. Operators: Rocio Mendoza MD Preoperative Diagnosis: thrombocytopenia Postoperative Diagnosis: Same Estimated Blood Loss: 2 cc Condition: Stable Complications: none Timeout Time: 915 Procedure Start Time: 915 Procedure End Time: 919 IMPRESSION: SUCCESSFUL CT-GUIDED BONE MARROW BIOPSY AT THE POSTERIOR RIGHT ILIAC BONE. ASPIRATION SAMPLES AND 1 CORE SAMPLE WERE OBTAINED. Transcribed Using Voice Recognition Transcribe Date/Time: Aug 24 2022 9:52A Dictated by: ROCIO MENODZA MD This examination was interpreted and the report reviewed and electronically signed by: ROCIO MENDOZA MD on Aug 24 2022 4:47PM EST [id number] [facility] DNA EXTRACTION BONE MARROW ( BUFFY COAT)on 08-24-2022 DNA EXTRACTION BONE MARROW (BUFFY COAT) [facility] Comment on above: Order Comment: Order ing Facility: [facility] Address: [address] [place] [address] Result Comment: This specimen was received and successfully processed for future DNA purification should molecular testing be needed. Specimens will be available for 3 years from date of collection. To order testing on this specimen for [facility] patients, please place an [place] order for DNA and RNA Clinical Testing ([id number]). To order testing for patients outside of the [facility] system, please request DNA and RNA for Clinical Testing, order code [id number]. If additional paperwork is required for testing, please send completed forms via secure email to [email or web address]. Performed By: #### C HRBM #### [facility] CLIA [id number] [address] [place] [address] [place] FLOW CYTOMETRY BONE MARROW H OLD (BMHOLD)on 08-24-2022 FLOW CYTOMETRY ORDER STATUS See Results in chart under F case ID [facility] Comment on above: Order Comment: Speci men Type: BONE MARROW SPECIMEN Ordering Facility: [facility] Address: [address] [place] [id number] Performed By: #### B MHOLDRFLX, BMHOLD #### [facility] CLIA [id number] [address] [place] [address] [place] FLOW CYTOMETRY BONE MARROW R EFLEXon 08-24-2022 FLOW CYTOMETRY RESULTS Normal [facility] Comment on above: Order Comment: Speci men Type: BONE MARROW SPECIMEN Ordering Facility: [facility] Address: [address] [place] [address] Result Comment: Spec imen type: Bone marrow aspirate Viability: 98% Flow Cytometry Bone Marrow Immunophenotyping Marker Normal Cell Type Result (Lymphocytes) CD3 T-cells Normal Pattern CD4 T-cell subset Normal Pattern CD5 T-cells Normal Pattern CD7 T/NK-cells Normal Pattern CD8 T-cell subset Normal Pattern CD13 Myeloid Normal Pattern CD16/56 NK cells Normal Pattern CD19 B-cells Normal Pattern CD34 Blasts Normal Pattern CD45 Pacheco-leukocyte Normal Pattern kappa/lambda B-cells Polytypic Flow cytometric analysis of the bone marrow aspirate reveals that 8% of total events have the CD45 and light scatter properties of lymphocytes. The lymphocytes are composed of T-cells (53%, CD4:CD8 ratio = 0.8), NK cells (11%), and polytypic B-cells (35%). Granulocytic elements are 41% of events. Blasts are not increased. GG 08/25/2022 Performed By: #### B DIVINA, BMHOLD #### [facility] CLIA [id number] [address] [place] [address] [place] GROSS DESCRIPTION A. Bone Marrow Normal [facility] Comment on above: Order Comment: Morenita flower Type: BONE MARROW SPECIMEN Ordering Facility: [facility] Address: [address] [place] [address] Result Comment: Rece ived 2 ml BM in heparin. Performed By: #### B DIVINA, BMHOLD #### [facility] CLIA [id number] [address] [place] [address] [place] INTERPRETATION Normal [facility] Comment on above: Order Comment: Morenita flower Type: BONE MARROW SPECIMEN Ordering Facility: [facility] Address: [address] [place] [address] Result Comment: Ther e is no evidence of involvement by a lymphoproliferative disorder or abnormal blast population. Correlation with the clinical and bone marrow histopathologic findings is suggested. Performed By: #### B MHLAURITARFAmyX, BMHOLD #### [facility] CLIA [id number] [address] [place], [place] [address] [address] [place] HISTORY PHYSICALon HISTORY PHYSICAL HNO ID: [id number] Author: Rocio Mendoza MD Service: Radiology Author Type: Physician Type: HANDP Filed: 08/24/2022 8:46 AM Note Text: UPDATED HISTORY AND PHYSICAL EXAMINATION SERVICE DATE: 08/24/2022 SERVICE TIME: 8:46 AM PHYSICAL EXAM MUST BE COMPLETED ON ADMISSION The History and Physical (completed in the past 30 days) has been reviewed and the patient has been examined. The contents accurately reflect the patient's condition with the following additions or revisions since the HANDP was completed. Examination indicates no changes. This HANDP can be found in the Electronic Medical Record dated 08/24/2022 . SIGNATURE: Rolando Mendoza MD PATIENT NAME: Macy Morales DATE: August 24, 2022 TIME: 8:29 AM Normal [facility] HISTORY PHYSICAL HNO ID: [id number] Author: King Dang PA-C Service: Radiology Author Type: Physician Talent Program Manager Type: HANDP Filed: 08/24/2022 8:00 AM Note Text: [facility] UPDATED HISTORY AND PHYSICAL PATIENT NAME: Macy Morales SERVICE DATE: 08/24/2022 SERVICE TIME: 7:15 AM PHYSICAL EXAM MUST BE COMPLETED ON ADMISSION The History and Physical (completed in the past 30 days) has been reviewed and the patient has been examined. The contents accurately reflect the patient's condition with the following additions or revisions since the HANDP was completed. . No vitals found. GENERAL: Alert, no distress, cooperative, Morbidly Obese, pleasant. Patient has c/o mild cough today. Note; patients family is concerned about previous lab results (PT INR). Patient is , HPI obtained with assistance from historical interpreter. LUNG:Lungs clear to auscultation anteriorly, Good diaphragmatic excursion, no wheezing/rhonchi/rales. CARDIAC:Normal S1 and S2; no rubs, murmurs, or gallops, Rhythm: regular rate and rhythm. Assessment: 1.Thrombocytopenia 2.DM II 3.Dover's palsy. Plan: Patient is optimized for sedation for the below procedure in agreement with the attending physician. Diagnostic bone marrow biopsy. I spent a total of 12 minutes on the date of the service which included preparing to see the patient, [id number] patient care, obtaining and/or reviewing separately obtained history, and performing a medically appropriate examination. This HANDP can be found in the Electronic Medical Record dated 07/28/2022. SIGNATURE: King Dang PA-C DATE: August 24, 2022 TIME: 7:15 AM [facility] Comprehensive metabolic 2000 panelon 07-13-2022 Albumin [Mass/Vol] 4.4 g/dL 3.9 - 4.9 g/dL [facility] ALP [Catalytic activity/Vol] 251 U/L High 34 - 123 U/L [facility] ALT [Catalytic activity/Vol] 43 U/L High 7 - 38 U/L [facility] Anion gap [Moles/Vol] 12 mmol/L 9 - 18 mmol/L [facility] AST [Catalytic activity/Vol] 62 U/L High 13 - 35 U/L [facility] Bilirubin [Mass/Vol] 1.5 mg/dL High 0.2 - 1 .3 mg/dL [facility] Calcium [Mass/Vol] 9.5 mg/dL 8.5 - 10. 2 mg/dL [facility] Chloride [Moles/Vol] 101 mmol/L 97 - 10 5 mmol/L [facility] CO2 [Moles/Vol] 27 mmol/L 22 - 30 mmol/L [facility] Creatinine [Mass/Vol] 0.47 mg/dL Low 0.58 - 0.96 mg/dL [facility] Estimated Glomerular Filtration Rate 106 mL/min/1.73m >=60 mL/min/1.7 3m [facility] Glucose [Mass/Vol] 97 mg/dL 74 - 99 mg/dL [facility] Potassium [Moles/Vol] 3.8 mmol/L 3.7 - 5.1 mmol/L [facility] Protein [Mass/Vol] 7.6 g/dL 6.3 - 8.0 g/dL [facility] Sodium [Moles/Vol] 140 mmol/L 136 - 144 mmol/L [facility] Urea nitrogen [Mass/Vol] 7 mg/dL 7 - 21 mg/dL [facility] CBC panel Auto (Bld)on 06-16 Erythrocyte distribution width (RBC) [Ratio] 15.8 % High 11.5 - 15.0 % [facility] Hematocrit (Bld) [Volume fraction] 43.9 % 36.0 - 46.0 % [facility] Hemoglobin (Bld) [Mass/Vol] 14.5 g/dL 11.5 - 15.5 g/dL [facility] MCH (RBC) [Entitic mass] 30.5 pg 26. 0 - 34.0 pg [facility] MCHC (RBC) [Mass/Vol] 33.0 g/dL 30.5 - 36.0 g/dL [facility] MCV (RBC) [Entitic vol] 92.2 fL 80.0 - 100.0 fL [facility] Nucleated RBC (Bld) [#/Vol] <0.01 k/uL [facility] Platelet mean volume (Bld) [Entitic vol] 13.0 fL High 9.0 - 12.7 fL [facility] Platelets (Bld) [#/Vol] 78 10*3/uL Low 150 - 400 k/uL [facility] RBC (Bld) [#/Vol] 4.76 10*6/uL 3.90 - 5.20 m/uL [facility] WBC (Bld) [#/Vol] 4.26 10*3/uL 3.70 - 11.00 k/uL [facility] Absolute lymphocyte countOrd ered By: Dr. Lopez on 06-03-2022 Lymphocytes Auto (Unsp spec) [#/Vol] 1.10 10*3/uL 0.83-4.51 [facility] Basophil percentageOrdered B y: Dr. Lopez on 06-03-2022 Basophil percentage 3.7 mg/dL 2.5-4.9 [facility] Basophils/100 WBC (Bld) 0.4 % 0-1 [facility] Chloride [Moles/Vol] 108 mmol/L 98-107 [facility] Eosinophils/100 WBC (Bld) 3.9 % 0-5 [facility] Glucose [Mass/Vol] 130 mg/dL 74-106 [facility] Comment on above: Fasting Glucose resu lt greater than or equal to 126 mg/dL suggests DIABETES MELLITUS per A.D.A. criteria. Neutrophils (Bld) [#/Vol] 1.3 10*3/uL 2.0-7.7 [facility] Neutrophils/100 WBC (Bld) 44.0 % 47-70 [facility] Potassium [Moles/Vol] 4.1 mmol/L 3.5-5.1 [facility] Sodium [Moles/Vol] 142 mmol/L 136-145 [facility] WBC (Bld) [#/Vol] 2.8 10*3/uL 4.4-11.0 [facility] Blood erythrocytes count (nu mber/volume)Ordered By: Dr. Lopez on 06-03-2022 RBC (Bld) [#/Vol] 4.40 10*6/uL 4.2-5.4 [facility] Blood hemoglobin measurement (mass/volume)Ordered By: Dr. Lopez on 06-03-2022 Hemoglobin (Bld) [Mass/Vol] 13.4 g/dL 12.0-15.0 [facility] Blood lymphocytes/100 leukoc ytesOrdered By: Dr. Lopez on 06-03-2022 Lymphocytes/100 WBC (Bld) 38.9 % 19-41 [facility] Blood monocytes/100 leukocyt esOrdered By: Dr. Lopez on 06-03-2022 Monocytes/100 WBC (Bld) 12.4 % 0-10 [facility] Blood platelet mean volumeOr dered By: Dr. Lopez on 06-03-2022 Platelet mean volume (Bld) [Entitic vol] 12.5 fL 6.2-12.0 [facility] Determination of erythrocyte mean corpuscular volume (MCV)Ordered By: Dr. Lopez on 06-03-2022 MCV (RBC) [Entitic vol] 91.8 fL 81-99 [facility] Glucose Glucometer (BldC) [M ass/Vol]Ordered By: Dr. Maddox on 06-03-2022 Glucose [Mass/Vol] 218 mg/dL 74-106 [facility] Comment on above: MANAGEMENT OF PATIEN T CARE PER NURSING PROTOCOL Hematocrit Auto (Bld) [Volum e fraction]Ordered By: Dr. Lopez on 06-03-2022 Hematocrit (Bld) [Volume fraction] 40.4 % 37-47 [facility] Laboratory - Chemistry and C hemistry - challengeOrdered By: Dr. Lopez on 06-03-2022 CO2 [Moles/Vol] 27.0 mmol/L 21.0-32.0 [facility] Magnesium [Mass/Vol] 1.9 mg/dL 1.6-2.6 [facility] Urea nitrogen/Creatinine [Mass ratio] 15.4 mg/mg 10-20 [facility] Laboratory - Chemistry and C hemistry - challengeOrdered By: Dr. Maddox on 06-03-2022 Free T4 [Mass/Vol] 0.93 ng/dL 0.76-1.46 [facility] Laboratory - Hematology and Cell countsOrdered By: Dr. Lopez on 06-03-2022 Erythrocyte distribution width (RBC) [Entitic vol] 49.8 fL 35.1-43.9 [facility] Erythrocyte distribution width (RBC) [Ratio] 14.7 % 11.6-14.6 [facility] Immature granulocytes/100 WBC (Bld) 0.400 % 0.0-0.9 [facility] Comment on above: IG% - Immature Granu locytes (promyelocytes, myelocytes and metamyelocytes) > 1% indicates that a LEFT SHIFT is Present. MCH (RBC) [Entitic mass] 30.5 pg 27.0-32.0 [facility] Nucleated RBC/100 WBC (Bld) [Ratio] 0 % 0-5 [facility] MCHC Auto (RBC) [Mass/Vol]Or dered By: Dr. Lopez on 06-03-2022 MCHC (RBC) [Mass/Vol] 33.2 g/dL 32-36 [facility] No Panel InformationOrdered By: Dr. Lopez on 06-03-2022 Estimated Creatinine Clearance Calc 98.35 ml/min [facility] Estimated GFR (MDRD) Amer 152 mL/min >60 [facility] Comment on above: GFR Calc Estimated GFR (MDRD) Non-Af Amer 126 mL/min >60 [facility] Comment on above: Non- GFR Calc Thyroid Stimulating Hormone (TSH) 4.27 uIU/mL 0.358-3.74 [facility] Platelets bldOrdered By: Dr. Lopez on 06-03-2022 Platelets (Bld) [#/Vol] 63 10*3/uL 150-450 [facility] Serum or plasma calcium cheri urement (mass/volume)Ordered By: Dr. Lopez on 06-03-2022 Calcium [Mass/Vol] 8.7 mg/dL 8.5-10.1 [facility] Serum or plasma creatinine m easurement (mass/volume)Ordered By: Dr. Lopez on 06-03-2022 Creatinine [Mass/Vol] 0.52 mg/dL 0.55-1.02 [facility] Comment on above: The validity of the calculated GFR & GFRAA in patients over 70 years has not been determined. Clinical correlation is essential. Serum or plasma urea nitroge n measurement (mass/volume)Ordered By: Dr. Lopez on 06-03-2022 Urea nitrogen [Mass/Vol] 8 mg/dL 7-18 [facility] Thin prep Papanicolaou smear with manual screeningOrdered By: Dr. Lopez on 06-03-2022 Thin prep Papanicolaou smear with manual screening 7 5-15 [facility] Basophil percentageOrdered B y: Dr. Toussaint on 06-02-2022 Cholesterol [Mass/Vol] 179 mg/dL <200 [facility] Comment on above: <200 mg/dL Desirable 200-240 mg/dL Borderline >240 mg/dL High Risk Triglyceride [Mass/Vol] 85 mg/dL <199 [facility] Comment on above: The drugs N-Acetylcy steine and Metamizole may falsely depress this assay.Serum Triglycerides Reference Interval Normal <150 mg/dL Borderline high 150 - 199 mg/dL High 200 - 499 mg/dL Very High > or = 500 mg/dL Blood platelet adequacy dete ction by light microscopyOrdered By: Dr. Toussaint on 06-02-2022 Platelets LM Ql (Bld) MOD DEC ADEQ [facility] Laboratory - Hematology and Cell countsOrdered By: Dr. Toussaint on 06-02-2022 Anisocytosis Ql (Bld) 1+ [facility] Serum or plasma cholesterol in HDL measurement (mass/volume)Ordered By: Dr. Toussaint on 06-02-2022 Cholesterol in HDL [Mass/Vol] 76 mg/dL >40 [facility] Comment on above: The drugs N-Acetylcy steine and Metamizole may falsely depress this assay. Reference Range HDL <40 mg/dL Low HDL Cholesterol HDL >or= 60 mg/dL High HDL Cholesterol Serum or plasma cholesterol in VLDL measurement (mass/volume)Ordered By: Dr. Toussaint on 06-02-2022 Cholesterol in VLDL [Mass/Vol] 17 mg/dL 5-40 [facility] Serum or plasma low density lipoprotein (LDL) cholesterol measurement (mass/volume)Ordered By: Dr. Toussaint on 06-02-2022 Cholesterol in LDL [Mass/Vol] 86 mg/dL 0-130 [facility] Whole blood hemoglobin A1c/t otal hemoglobin ratio (mass fraction)Ordered By: Dr. Toussaint on 06-02-2022 HbA1c (Bld) [Mass fraction] 6.6 % 3.8-5.6 [facility] Comment on above: Normal < 5.7 % Predi abetic 5.7 - 6.4 % Diabetic >or= 6.5 % Please note range changes. Absolute lymphocyte countOrd ered By: Dr. Naqvi on 06-01-2022 Lymphocytes Auto (Unsp spec) [#/Vol] 1.88 10*3/uL 0.83-4.51 [facility] Basophil percentageOrdered B y: Dr. Naqvi on 06-01-2022 Basophils/100 WBC (Bld) 0.8 % 0-1 [facility] Chloride [Moles/Vol] 103 mmol/L 98-107 [facility] Eosinophils/100 WBC (Bld) 3.3 % 0-5 [facility] Glucose [Mass/Vol] 116 mg/dL 74-106 [facility] Comment on above: Fasting Glucose resu lt from 100 to 125 mg/dL suggests IMPAIRED HOMEOSTASIS per A.D.A. criteria. Neutrophils (Bld) [#/Vol] 2.5 10*3/uL 2.0-7.7 [facility] Neutrophils/100 WBC (Bld) 47.6 % 47-70 [facility] Potassium [Moles/Vol] 3.8 mmol/L 3.5-5.1 [facility] Sodium [Moles/Vol] 138 mmol/L 136-145 [facility] WBC (Bld) [#/Vol] 5.2 10*3/uL 4.4-11.0 [facility] Blood erythrocytes count (nu mber/volume)Ordered By: Dr. Naqvi on 06-01-2022 RBC (Bld) [#/Vol] 4.76 10*6/uL 4.2-5.4 [facility] Blood hemoglobin measurement (mass/volume)Ordered By: Dr. Naqvi on 06-01-2022 Hemoglobin (Bld) [Mass/Vol] 14.6 g/dL 12.0-15.0 [facility] Blood lymphocytes/100 leukoc ytesOrdered By: Dr. Naqvi on 06-01-2022 Lymphocytes/100 WBC (Bld) 36.2 % 19-41 [facility] Blood monocytes/100 leukocyt esOrdered By: Dr. Naqvi on 06-01-2022 Monocytes/100 WBC (Bld) 11.9 % 0-10 [facility] Blood platelet mean volumeOr dered By: Dr. Naqvi on 06-01-2022 Platelet mean volume (Bld) [Entitic vol] 12.7 fL 6.2-12.0 [facility] Determination of erythrocyte mean corpuscular volume (MCV)Ordered By: Dr. Naqvi on 06-01-2022 MCV (RBC) [Entitic vol] 91.8 fL 81-99 [facility] Glucose Glucometer (dC) [M ass/Vol]Ordered By: Dr. Naqvi on 06-01-2022 Glucose [Mass/Vol] 114 mg/dL 74-106 [facility] Comment on above: MANAGEMENT OF PATIEN T CARE PER NURSING PROTOCOL Hematocrit Auto (Bld) [Volum e fraction]Ordered By: Dr. Naqvi on 06-01-2022 Hematocrit (Bld) [Volume fraction] 43.7 % 37-47 [facility] INR in Blood by Coagulation assayOrdered By: Dr. Naqvi on 06-01-2022 INR Coag (Bld) [Relative time] 1.1 {INR} [facility] Laboratory - Chemistry and C hemistry - challengeOrdered By: Dr. Naqvi on 06-01-2022 CO2 [Moles/Vol] 31.0 mmol/L 21.0-32.0 [facility] Urea nitrogen/Creatinine [Mass ratio] 18.0 mg/mg 10-20 [facility] Laboratory - CoagulationOrde red By: Dr. Naqvi on 06-01-2022 aPTT Coag (Bld) [Time] 33.4 s 24.1-36.2 [facility] PT Coag (PPP) [Time] 14.2 s 11.7-14.9 [facility] - Hematology and Cell countsOrdered By: Dr. Naqvi on 06-01-2022 Erythrocyte distribution width (RBC) [Entitic vol] 51.5 fL 35.1-43.9 [facility] Erythrocyte distribution width (RBC) [Ratio] 14.9 % 11.6-14.6 [facility] Immature granulocytes/100 WBC (Bld) 0.200 % 0.0-0.9 [facility] Comment on above: IG% - Immature Granu locytes (promyelocytes, myelocytes and metamyelocytes) > 1% indicates that a LEFT SHIFT is Present. MCH (RBC) [Entitic mass] 30.7 pg 27.0-32.0 [facility] Nucleated RBC/100 WBC (Bld) [Ratio] 0 % 0-5 [facility] MCHC Auto (RBC) [Mass/Vol]Or dered By: Dr. Naqvi on 06-01-2022 MCHC (RBC) [Mass/Vol] 33.4 g/dL 32-36 [facility] No Panel InformationOrdered By: Dr. Naqvi on 06-01-2022 Estimated Creatinine Clearance Calc 66.92 ml/min [facility] Estimated GFR (MDRD) Amer 126 mL/min >60 [facility] Comment on above: GFR Calc Estimated GFR (MDRD) Non-Af Amer 104 mL/min >60 [facility] Comment on above: Non- GFR Calc Troponin I High Sensitivity 4 pg/mL 3.0-54.0 [facility] Comment on above: Please Note: New Chante t Units and Gender Specific Reference Ranges. For more information see Policy Stat Procedure [place] High Sensitivity Troponin (TNIH) and attachments. Platelets bldOrdered By: Dr. Naqvi on 06-01-2022 Platelets (Bld) [#/Vol] 100 10*3/uL 150-450 [facility] Serum or plasma calcium cheri urement (mass/volume)Ordered By: Dr. Naqvi on 06-01-2022 Calcium [Mass/Vol] 10.0 mg/dL 8.5-10.1 [facility] Serum or plasma creatinine m easurement (mass/volume)Ordered By: Dr. Naqvi on 06-01-2022 Creatinine [Mass/Vol] 0.61 mg/dL 0.55-1.02 [facility] Comment on above: The validity of the calculated GFR & GFRAA in patients over 70 years has not been determined. Clinical correlation is essential. Serum or plasma urea nitroge n measurement (mass/volume)Ordered By: Dr. Naqvi on 06-01-2022 Urea nitrogen [Mass/Vol] 11 mg/dL 7-18 [facility] Thin prep Papanicolaou smear with manual screeningOrdered By: Dr. Naqvi on 06-01-2022 Thin prep Papanicolaou smear with manual screening 4 5-15 [facility] No Panel Informationon 09-02 [facility] CORONAVIRUS PCR [CCL]on 01-14 REF LAB REPORT Positive Normal [facility] Comment on above: Performed By: #### [id number] #### [facility],[address] [place] [address] SEND TO IC? 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 This test has been authorized by FDA under an Emergency Use Authorization (EUA). This test has been validated in accordance with the FDA's Guidance Document Policy for Diagnostics Testing in Laboratories Certified to Perform High Complexity Testing under CLIA prior to Emergency use Authorization for Coronavirus Disease 2019 during the Public Health Emergency issued on May 13, 2019. [address] [address] Neftaly López III, M.D. [id number] Performed By: #### [id number] #### [address] [address] COVID 19 Source SENIOR BIOINFORMATICS SCIENTIST Nasopharyngeal Swab Normal [facility] Comment on above: Result Comment: Jason ected on 02/03 AT 1019: Previously reported as U Performed By: #### 2 [id number] #### [address] [address] Coronavirus 2019on 0 COVID 19 Result SENIOR BIOINFORMATICS SCIENTIST Abnormal Negative for COVID19 (SARS CoV2) by PCR. [facility] Comment on above: Result Comment: Posi tive for This test was developed and its performance characteristics determined by [facility] [place]. This test has been authorized by FDA under an Emergency Use Authorization (EUA). This test has been validated in accordance with the FDA's Guidance Document Policy for Diagnostics Testing in Laboratories Certified to Perform High Complexity Testing under CLIA prior to Emergency use Authorization for Coronavirus Disease 2019 during the Public Health Emergency issued on May 13, 2019. COVID19 (SARS This test was developed and its performance characteristics determined by [facility] [place]. This test has been authorized by FDA under an Emergency Use Authorization (EUA). This test has been validated in accordance with the FDA's Guidance Document Policy for Diagnostics Testing in Laboratories Certified to Perform High Complexity Testing under CLIA prior to Emergency use Authorization for Coronavirus Disease 2019 during the Public Health Emergency issued on May 13, 2019. CoV2) by This test was developed and its performance characteristics determined by [facility] [place]. This test has been authorized by FDA under an Emergency Use Authorization (EUA). This test has been validated in accordance with the FDA's Guidance Document Policy for Diagnostics Testing in Laboratories Certified to Perform High Complexity Testing under CLIA prior to Emergency use Authorization for Coronavirus Disease 2019 during the Public Health Emergency issued on May 13, 2019. PCR.(*) This test was developed and its performance characteristics determined by [facility] [place]. This test has been authorized by FDA under an Emergency Use Authorization (EUA). This test has been validated in accordance with the FDA's Guidance Document Policy for Diagnostics Testing in Laboratories Certified to Perform High Complexity Testing under CLIA prior to Emergency use Authorization for Coronavirus Disease 2019 during the Public Health Emergency issued on May 13, 2019. Coronavirus 2019on 0 COVID 19 Source SENIOR BIOINFORMATICS SCIENTIST Normal [facility] Comment on above: Result Comment: Naso pharyngeal Corrected on 02/03 AT 1019: Previously reported as U Swab Corrected on 02/03 AT 1019: Previously reported as U HGB A1C [CCL]on 11-11-2019 HbA1c (Bld) [Mass fraction] 338 mg/dL Normal [facility] Comment on above: Result Comment: eAG: (Estimated average glucose) is a calculated value from HgbA1c and is in store marketing representative of the average blood glucose level in the last 2-3 month period. [facility] [address] [place] [address] Neftaly López III, M.D. [id number] Performed By: #### 2 [id number] #### [place] [id number] HbA1c (Bld) [Mass fraction] 13.4 % High 4.3-5.6 [facility] Comment on above: Result Comment: Amer ican Diabetes Association guidelines indicate that patients with HgbA1c in the range 5.7-6.4% are at increased risk for development of diabetes, and intervention by lifestyle modification may be beneficial. HgbA1c greater or equal to 6.5% is considered diagnostic of diabetes. Performed By: #### 2 [id number] #### [place] [id number] Hemoglobin A1con 11-11-2019 HbA1c (Bld) [Mass fraction] 13.4 % High 4.3-5.6 [facility] Comment on above: Performed By: #### H BA1C #### [facility]ine Lab [address] [place] [address] HbA1c (Bld) [Mass fraction] 338 mg/dL Normal [facility] Comment on above: Performed By: #### H BA1C #### [facility] Lab [address] [place] [address] CMP with eGFRon 11-10-2019 Age - Reported 64 years Normal [facility] Comment on above: Performed By: #### 2 [id number] #### [facility],[address] [place] [address]99 Albumin [Mass/Vol] 4.1 g/dL Normal 3.4 - 4.8 [facility] Comment on above: Performed By: #### 2 96229 #### [facility],[address] [place] [address]377 Albumin/Globulin [Mass ratio] 1.4 {ratio} Normal 0.9 - 1.6 [facility] Comment on above: Performed By: #### 2 [id number] #### [facility],[address] [place] [address]60 ALK PHOS 230 U/L High 38 - 126 [facility] Comment on above: Performed By: #### 2 17406 #### [facility],[address] [place] [address] 35486 ALT/SGPT 48 U/L High 8 - 35 [facility] Comment on above: Performed By: #### 2 49990 #### [facility],[address] [place] [address]65 Anion gap [Moles/Vol] 15 mmol/L Normal 10 - 20 [facility] Comment on above: Performed By: #### 2 52006 #### [address] [address] AST/SGOT 49 U/L High 13 - 39 [facility] Comment on above: Performed By: #### 2 25658 #### [facility],[address] [place] [address] B/C RATIO 20 ratio Normal 0 - 30 [facility] Comment on above: Performed By: #### 2 38757 #### [facility],[address] [place] [address] 31065 Bilirubin [Mass/Vol] 1.4 mg/dL Normal 0.0 - 1.5 [facility] Comment on above: Performed By: #### 2 74735 #### [facility],[address] [place] [address]1124 Calcium [Mass/Vol] 9.5 mg/dL Normal 8.6 - 10.2 [facility] Comment on above: Performed By: #### 2 60219 #### [facility],[address] [place] [address] 85441 Chloride [Moles/Vol] 97 mmol/L Low 98 - 107 [facility] Comment on above: Performed By: #### 2 96410 #### [facility],[address] [place] [address] 51527 CO2 [Moles/Vol] 28.3 mmol/L Normal 21.0 - 31.0 [facility] Comment on above: Performed By: #### 2 60137 #### [facility],[address] [place] [address] 70032 Creatinine [Mass/Vol] 0.6 mg/dL Normal 0.6 - 1.2 [facility] Comment on above: Performed By: #### 2 34164 #### [facility],[address] [place] [address] 48818 GFR/1.73 sq M predicted among non-blacks MDRD (S/P/Bld) [Vol rate/Area] mL/min/{1.73_m2} Normal 60 - 999 [facility] Comment on above: Result Comment: ACCO RDING TO THE NATIONAL KIDNEY DISEASE EDUCATION PROGRAM(NKDE), A NORMAL eGFR IS A VALUE GREATER THAN OR EQUAL TO 60 ML/MIN/1.73 SQ METERS. CHRONIC KIDNEY DISEASE: <60mL/MIN/1.73 SQ METERS KIDNEY FAILURE: <15mL/MIN/1.73 SQ METERS THIS TEST SHOULD ONLY BE USED FOR PATIENTS 18 YEARS OF AGE AND OLDER. Performed By: #### 2 [id number] #### [facility],[address] [place] [address] GFR/1.73 sq M predicted among non-blacks MDRD (S/P/Bld) [Vol rate/Area] Normal [facility] Comment on above: Result Comment: COMP REHENSIVE METABOLIC PANEL Performed By: #### 2 51053 #### [facility],[address] [place] [address] Globulin (S) [Mass/Vol] 3.0 g/dL Normal 1.5 - 3.8 [facility] Comment on above: Performed By: #### 2 15725 #### [facility],[address] [place] [address] 29545 Glucose [Mass/Vol] 299 mg/dL High 74 - 106 [facility] Comment on above: Performed By: #### 2 37499 #### [facility],[address] [place] [address]64 Potassium [Moles/Vol] 4.4 mmol/L Normal 3.5 - 5.1 [facility] Comment on above: Performed By: #### 2 37855 #### [facility],[address] [place] [address]17 Protein [Mass/Vol] 7.1 g/dL Normal 6.4 - 8.3 [facility] Comment on above: Performed By: #### 2 45689 #### [facility],[address] [place] [address] 34084 Sodium [Moles/Vol] 136 mmol/L Normal 136 - 145 [facility] Comment on above: Performed By: #### 2 15820 #### [facility],[address] [place] [address]369 Urea nitrogen [Mass/Vol] 12 mg/dL Normal 6 - 20 [facility] Comment on above: Performed By: #### 2 10084 #### [facility],[address] [place] [address] LIPID PROFILEon 11-10-2019 Cholesterol [Mass/Vol] 232 mg/dL High 0 - 200 [facility] Comment on above: Performed By: #### 2 39659 #### [facility],[address] [place] [address] 65555 Cholesterol in HDL [Mass/Vol] 72 mg/dL High 40 - 60 [facility] Comment on above: Performed By: #### 2 77960 #### [facility],[address] [place] [address] 86103 Cholesterol in LDL [Mass/Vol] 131 mg/dL High 0 - 129 [facility] Comment on above: Performed By: #### 2 75097 #### [facility],[address] [place] [address] 21627 Cholesterol.total/Cholest jason in HDL [Mass ratio] 3.2 {ratio} Normal 0.0 - 5.0 [facility] Comment on above: Performed By: #### 2 03449 #### [facility],[address] [place] [address] 05645 Lipid 1996 panel Normal [facility] Comment on above: Result Comment: LIPI D PROFILE Performed By: #### 2 04743 #### [facility],[address] [place] [address] Triglyceride [Mass/Vol] 145 mg/dL Normal 0 - 150 [facility] Comment on above: Performed By: #### 2 97109 #### [facility],[address] [place] [address] Vital Signs Date Time Vital Sign Value Performing Clinician Craig zuluaga 08-10-2024 09:100400 Body height 152.[address] Angelita Call MD Work Phone: [facility] 08-10-2024 09:10-0400 Body mass index (BMI) [Ratio] 35.8 kg/m2 Dr. Angelita Call MD Work Phone: [facility] 08-10-2024 09:10-0400 Body weight 83.[address] Angelita Call MD Work Phone: [facility] 08-10-2024 09:10-0400 Diastolic blood pressure 80 mm[Hg] Dr. Angelita Call MD Work Phone: [facility] 08-10-2024 09:10-0400 Heart rate 69 /min Dr. Angelita Call MD Work Phone: [facility] 08-10-2024 09:10-0400 Respiratory rate 16 /min Dr. Angelita Call MD Work Phone: [facility] 08-10-2024 09:10-0400 SaO2% (BldA) [Mass fraction] 98 % Dr. Angelita Call MD Work Phone: [facility] 08-10-2024 09:10-0400 Systolic blood pressure 146 mm[Hg] Dr. Angelita Call MD Work Phone: [facility] 07-04-2024 11:13-0400 Body height 152.[address] Angelita Call MD Work Phone: [facility] 07-04-2024 11:13-0400 Body mass index (BMI) [Ratio] 38.5 kg/m2 Dr. Angelita Call MD Work Phone: [facility] 07-04-2024 11:13-0400 Body weight 89.[address] Angelita Call MD Work Phone: [facility] 07-04-2024 11:13-0400 Diastolic blood pressure 81 mm[Hg] Dr. Angelita Call MD Work Phone: [facility] 07-04-2024 11:13-0400 Heart rate 75 /min Dr. Angelita Call MD Work Phone: [facility] 07-04-2024 11:13-0400 Respiratory rate 16 /min Dr. Angelita Call MD Work Phone: [facility] 07-04-2024 11:13-0400 SaO2% (BldA) [Mass fraction] 98 % Dr. Angelita Call MD Work Phone: [facility] 07-04-2024 11:13-0400 Systolic blood pressure 146 mm[Hg] Dr. Angelita Call MD Work Phone: [facility] 05-29-2024 12:36-0400 Body height 152.[address] Angelita Call MD Work Phone: [facility] 05-29-2024 12:36-0400 Body mass index (BMI) [Ratio] 37.5 kg/m2 Dr. Angelita Call MD Work Phone: [facility] 05-29-2024 12:36-0400 Body weight 87.[address] Angelita Call MD Work Phone: [facility] 09-08-2023 12:04-0400 Body mass index (BMI) [Ratio] 36.64 kg/m2 Bruce Yu APRN.[employer] Work Phone: [facility] 09-08-2023 12:04-0400 Body temperature 98.71 [degF] Bruce Yu NAIL SPECIALIST.[employer] Work Phone: [facility] 09-08-2023 12:04-0400 Body weight 85.1 kg Bruce Yu APRN.[employer] Work Phone: [facility] 09-08-2023 12:04-0400 Diastolic blood pressure 92 mm[Hg] Bruce Yu APRN.[employer] Work Phone: [facility] 09-08-2023 12:04-0400 Heart rate 78 /min Bruce Yu APRN.[employer] Work Phone: [facility] 09-08-2023 12:04-0400 Respiratory rate 16 /min Bruce Yu NAIL SPECIALIST.[employer] Work Phone: [facility] 09-08-2023 12:04-0400 SaO2% (BldA) [Mass fraction] 98 % Bruce Yu NAIL SPECIALIST.[employer] Work Phone: [facility] 09-08-2023 12:04-0400 Systolic blood pressure 146 mm[Hg] Bruce Yu NAIL SPECIALIST.[employer] Work Phone: [facility] 07-13-2023 10:13-0400 Body mass index (BMI) [Ratio] 38.67 kg/m2 Ana Browning NAIL SPECIALIST.[employer] Work Phone: [facility] 07-13-2023 10:13-0400 Body weight 89.81 kg Ana Browning NAIL SPECIALIST.[employer] Work Phone: [facility] 07-13-2023 10:13-0400 Diastolic blood pressure 76 mm[Hg] Ana Browning NAIL SPECIALIST.[employer] Work Phone: [facility] 07-13-2023 10:13-0400 Heart rate 84 /min Ana Browning APRN.[employer] Work Phone: [facility] 07-13-2023 10:13-0400 Respiratory rate 16 /min Ana Browning APRN.[employer] Work Phone: [facility] 07-13-2023 10:13-0400 SaO2% (BldA) [Mass fraction] 98 % Ana Browning NAIL SPECIALIST.[employer] Work Phone: [facility] 07-13-2023 10:13-0400 Systolic blood pressure 148 mm[Hg] Ana Browning NAIL SPECIALIST.[employer] Work Phone: [facility] 07-09-2023 13:45-0400 Body temperature 97.9 [degF] Dr. Elder Reddy Work Phone: [facility] 07-09-2023 13:45-0400 Diastolic blood pressure 74 mm[Hg] Dr. Elder Reddy Work Phone: [facility] 07-09-2023 13:45-0400 Heart rate 94 /min Dr. Elder Reddy Work Phone: [facility] 07-09-2023 13:45-0400 Respiratory rate 16 /min Dr. Elder Reddy Work Phone: [facility] 07-09-2023 13:45-0400 SaO2% (BldA) [Mass fraction] 100 % Dr. Elder Reddy Work Phone: [facility] 07-09-2023 13:45-0400 Systolic blood pressure 140 mm[Hg] Dr. Elder Reddy Work Phone: 1(179)[phone] [place] [address] 07-09-2023 02:29-0400 Body mass index (BMI) [Ratio] 40.1 kg/m2 Dr. Elder Reddy Work Phone: 8(372)[phone] [place] [address] 07-09-2023 02:29-0400 Body weight 92.[address] Elder Reddy Work Phone: 1(858)[phone] [place] [address] 07-06-2023 11:39-0400 Body height 152.[address] Elder Reddy Work Phone: [facility] 07-06-2023 04:37-0400 Diastolic blood pressure 76 mm[Hg] [facility] 07-06-2023 04:37-0400 Heart rate 81 /min [facility] 07-06-2023 04:37-0400 Respiratory rate 16 /min [facility] 07-06-2023 04:37-0400 SaO2% (BldA) [Mass fraction] 99 % [facility] 07-06-2023 04:37-0400 Systolic blood pressure 112 mm[Hg] [facility] 07-06-2023 04:20-0400 Body temperature 98 [degF] [facility] 07-06-2023 02:38-0400 Body height 152.4 cm [facility] 07-06-2023 02:38-0400 Body mass index (BMI) [Ratio] 36.3 kg/m2 [facility] 07-06-2023 02:38-0400 Body weight 84.5 kg [facility] 06-29-2023 14:40-0400 Body height 152.4 cm Cecilia Powers MD Work Phone: [facility] 06-29-2023 14:40-0400 Body temperature 97.59 [degF] Cecilia Powers MD Work Phone: [facility] 06-29-2023 14:40-0400 Body weight 84.4 kg Cecilia Powers MD Work Phone: [facility] 06-29-2023 14:40-0400 Diastolic blood pressure 54 mm[Hg] Cecilia Powers MD Work Phone: [facility] 06-29-2023 14:40-0400 Heart rate 84 /min Cecilia Powers MD Work Phone: [facility] 06-29-2023 14:40-0400 SaO2% (BldA) [Mass fraction] 98 % Cecilia Powers MD Work Phone: [facility] 06-29-2023 14:40-0400 Systolic blood pressure 134 mm[Hg] Cecilia Powers MD Work Phone: [facility] 05-03-2023 12:48-0500 Body temperature 97.81 [degF] Pepe Praisler-Wood NAIL SPECIALIST.[employer] Work Phone: [facility] 05-03-2023 12:48-0500 Body weight 84.28 kg Pepe Praisler-Wood NAIL SPECIALIST.[employer] Work Phone: [facility] 05-03-2023 12:48-0500 Diastolic blood pressure 82 mm[Hg] Pepe Praisler-Wood NAIL SPECIALIST.[employer] Work Phone: [facility] 05-03-2023 12:48-0500 Heart rate 81 /min Pepe Praisler-Wood NAIL SPECIALIST.[employer] Work Phone: [facility] 05-03-2023 12:48-0500 Respiratory rate 16 /min Pepe Michel NAIL SPECIALIST.[employer] Work Phone: [facility] 05-03-2023 12:48-0500 SaO2% (BldA) [Mass fraction] 99 % Pepe Marques-Wilfrid NAIL SPECIALIST.[employer] Work Phone: [facility] 05-03-2023 12:48-0500 Systolic blood pressure 128 mm[Hg] Pepe Michel NAIL SPECIALIST.[employer] Work Phone: [facility] 04-26-2023 17:07-0500 Diastolic blood pressure 70 mm[Hg] Elder Reddy MD Work Phone: [facility] 04-26-2023 17:07-0500 Heart rate 86 /min Elder Reddy MD Work Phone: [facility] 04-26-2023 17:07-0500 Systolic blood pressure 144 mm[Hg] Elder Reddy MD Work Phone: [facility] 04-26-2023 16:57-0500 Body temperature 98.6 [degF] Elder Reddy MD Work Phone: [facility] 04-26-2023 16:57-0500 Body weight 85.28 kg Elder Reddy MD Work Phone: [facility] 02-23-2023 10:02-0500 Body weight 84.82 kg Ana Browning NAIL SPECIALIST.[employer] Work Phone: [facility] 02-23-2023 10:02-0500 Diastolic blood pressure 90 mm[Hg] Ana Browning NAIL SPECIALIST.[employer] Work Phone: [facility] 02-23-2023 10:02-0500 Heart rate 76 /min Ana PelaezAlie NAIL SPECIALIST.[employer] Work Phone: [facility] 02-23-2023 10:02-0500 Respiratory rate 16 /min Ana PelaezAlie NAIL SPECIALIST.[employer] Work Phone: [facility] 02-23-2023 10:02-0500 Systolic blood pressure 169 mm[Hg] Ana Alie NAIL SPECIALIST.[employer] Work Phone: [facility] 10-20-2022 10:38-0400 Diastolic blood pressure 68 mm[Hg] Ana Older NAIL SPECIALIST.[employer] Work Phone: [facility] 10-20-2022 10:38-0400 Systolic blood pressure 120 mm[Hg] Ana Older NAIL SPECIALIST.[employer] Work Phone: [facility] 10-20-2022 10:20-0400 Body weight 83.92 kg Ana Older NAIL SPECIALIST.[employer] Work Phone: [facility] 10-20-2022 10:20-0400 Heart rate 60 /min Ana Older NAIL SPECIALIST.[employer] Work Phone: [facility] 10-20-2022 10:20-0400 Respiratory rate 16 /min Ana Older NAIL SPECIALIST.[employer] Work Phone: [facility] 07-13-2022 10:56-0400 Body height 149.9 cm Kavon Masci DO Work Phone: [facility] 07-13-2022 10:56-0400 Body temperature 97.3 [degF] Kavon Masci DO Work Phone: [facility] 07-13-2022 10:56-0400 Body weight 85.28 kg Kavon Masci DO Work Phone: [facility] 07-13-2022 10:56-0400 Diastolic blood pressure 73 mm[Hg] Kavon Masci DO Work Phone: [facility] 07-13-2022 10:56-0400 Heart rate 76 /min Kavon Masci DO Work Phone: [facility] 07-13-2022 10:56-0400 Systolic blood pressure 130 mm[Hg] Kavon Masci DO Work Phone: [facility] 06-23-2022 09:08-0400 Body height 152.4 cm Elder Reddy MD Work Phone: [facility] 06-23-2022 09:08-0400 Body weight 83.92 kg Elder Reddy MD Work Phone: [facility] 06-23-2022 09:08-0400 Diastolic blood pressure 80 mm[Hg] Elder Reddy MD Work Phone: [facility] 06-23-2022 09:08-0400 Heart rate 82 /min Elder Reddy MD Work Phone: [facility] 06-23-2022 09:08-0400 Respiratory rate 16 /min Elder Reddy MD Work Phone: [facility] 06-23-2022 09:08-0400 Systolic blood pressure 118 mm[Hg] Elder Reddy MD Work Phone: [facility] 06-16-2022 09:13-0400 Body temperature 97.81 [degF] Memo Treviño PA-C Work Phone: [facility] 06-16-2022 09:13-0400 Body weight 83.28 kg Memo Treviño PA-C Work Phone: [facility] 06-16-2022 09:13-0400 Diastolic blood pressure 58 mm[Hg] Memo Treviño PA-C Work Phone: [facility] 06-16-2022 09:13-0400 Heart rate 96 /min Memo Treviño PA-C Work Phone: [facility] 06-16-2022 09:13-0400 Respiratory rate 6 /min Memo Treviño PA-C Work Phone: [facility] 06-16-2022 09:13-0400 SaO2% (BldA) [Mass fraction] 98 % Memo Treviño PA-C Work Phone: [facility] 06-16-2022 09:13-0400 Systolic blood pressure 147 mm[Hg] Memo Treviño PA-C Work Phone: [facility] 06-09-2022 12:12-0400 Body weight 83.46 kg Ana Older NAIL SPECIALIST.[employer] Work Phone: [facility] 06-09-2022 12:12-0400 Diastolic blood pressure 84 mm[Hg] Ana Older NAIL SPECIALIST.[employer] Work Phone: [facility] 06-09-2022 12:12-0400 Heart rate 84 /min Ana Older NAIL SPECIALIST.[employer] Work Phone: [facility] 06-09-2022 12:12-0400 Respiratory rate 16 /min Ana Older NAIL SPECIALIST.[employer] Work Phone: [facility] 06-09-2022 12:12-0400 Systolic blood pressure 137 mm[Hg] Ana Older NAIL SPECIALIST.[employer] Work Phone: [facility] 06-03-2022 13:50-0400 Body temperature 98.4 [degF] Dr. Ismael Naqvi Work Phone: [facility] 06-03-2022 13:50-0400 Diastolic blood pressure 76 mm[Hg] Dr. Ismael Naqvi Work Phone: [facility] 06-03-2022 13:50-0400 Heart rate 81 /min Dr. Ismael Naqvi Work Phone: [facility] 06-03-2022 13:50-0400 Respiratory rate 16 /min Dr. Ismael Naqvi Work Phone: [facility] 06-03-2022 13:50-0400 SaO2% (BldA) [Mass fraction] 99 % Dr. Ismael Naqvi Work Phone: [facility] 06-03-2022 13:50-0400 Systolic blood pressure 140 mm[Hg] Dr. Ismael Naqvi Work Phone: [facility] 06-03-2022 12:18-0400 Body mass index (BMI) [Ratio] 30.8 kg/m2 Dr. Ismael Naqvi Work Phone: [facility] 06-02-2022 01:50-0400 Body height 165.[address] Ismael Naqvi Work Phone: [facility] 06-02-2022 01:50-0400 Body weight [address] Ismael Naqvi Work Phone: [facility] 06-01-2022 22:17-0400 Body temperature 97.6 [degF] [facility] 06-01-2022 22:17-0400 Diastolic blood pressure 72 mm[Hg] [facility] 06-01-2022 22:17-0400 Heart rate 94 /min [facility] 06-01-2022 22:17-0400 Respiratory rate 28 /min [facility] 06-01-2022 22:17-0400 SaO2% (BldA) [Mass fraction] 97 % [facility] 06-01-2022 22:17-0400 Systolic blood pressure 126 mm[Hg] [facility] 06-01-2022 18:33-0400 Body height 152.4 cm [facility] 06-01-2022 18:33-0400 Body mass index (BMI) [Ratio] 36.6 kg/m2 [facility] 06-01-2022 18:33-0400 Body weight 85.04 kg [facility] 11-03-2021 15:27-0400 Body temperature 96.91 [degF] Elder Reddy MD Work Phone: [facility] 11-03-2021 15:27-0400 Body weight 82.56 kg Elder Reddy MD Work Phone: [facility] 11-03-2021 15:27-0400 Diastolic blood pressure 80 mm[Hg] Elder Reddy MD Work Phone: [facility] 11-03-2021 15:27-0400 Heart rate 80 /min Elder Reddy MD Work Phone: [facility] 11-03-2021 15:27-0400 Respiratory rate 16 /min Elder Reddy MD Work Phone: [facility] 11-03-2021 15:27-0400 Systolic blood pressure 124 mm[Hg] lEder Reddy MD Work Phone: [facility] 07-23-2021 [id number] Body temperature 98.29 [degF] Elder Reddy MD Work Phone: [facility] 07-23-2021 [id number] Body weight 81.19 kg Elder Reddy MD Work Phone: [facility] 07-23-2021 15:11-0400 Diastolic blood pressure 80 mm[Hg] Elder Reddy MD Work Phone: [facility] 07-23-2021 15:11-0400 Heart rate 80 /min Elder Reddy MD Work Phone: [facility] 07-23-2021 [id number] Respiratory rate 16 /min Elder Reddy MD Work Phone: [facility] 07-23-2021 15:11-0400 Systolic blood pressure 122 mm[Hg] Elder Reddy MD Work Phone: [facility] Encounters Encounter Date Encounter Type Care Provider Facility Start: 10-18-2024 ambulatory Santino Marie Facility :[facility] Start: 09-22-2024 ambulatory Angelita Call Facility: [facility] Start: 08-10-2024 End: 08-10-2024 Patient encounter procedure Jessica Worthington SENIOR BIOINFORMATICS SCIENTIST-C -[facility] Work Phone: Start: 08-10-2024 End: 08-10-[address] Angelita Call MD Work Phone: [facility] Work Phone: Start: 08-10-2024 End: 08-10-2024 ambulatory Jessica Worthington Facility:[facility] Start: 08-01-2024 End: 08-01-[address] Angelita Call MD Work Phone: [facility] Work Phone: Start: 08-01-2024 End: 08-01-2024 Patient encounter procedure Jessica RODRIGUEZ -Nuclear Medicine [facility] Work Phone: Start: 08-01-2024 End: 08-01-2024 ambulatory Angelita Call Facility:[facility] Start: 07-06-2024 End: 07-06-[address] Angelita Call MD Work Phone: [facility] Work Phone: Start: 07-06-2024 End: 07-06-2024 Patient encounter procedure Jessica RODRIGUEZ -Ultrasound, [facility] Work Phone: Start: 07-06-2024 End: 07-06-2024 ambulatory Angelita Call Facility:[facility] Start: 07-04-2024 End: 07-04-[address] Angelita Call MD Work Phone: [facility] Work Phone: Start: 07-04-2024 End: 07-04-2024 Patient encounter procedure Jessica RODRIGUEZ -[facility] Work Phone: Start: 07-04-2024 End: 07-04-2024 ambulatory Angelita Call Facility:[facility] Start: 06-07-2024 End: 06-07-[address] Angelita Call MD Work Phone: [facility] Work Phone: Start: 06-07-2024 End: 06-07-2024 Patient encounter procedure Santino Marie DO -[facility] Work Phone: Start: 06-07-2024 End: 06-07-2024 ambulatory Santino Marie Facility:[facility] Start: 05-29-2024 End: 05-29-[address] Angelita Call MD Work Phone: [facility] Work Phone: Start: 05-29-2024 End: 05-29-2024 Patient encounter procedure Santino Marie DO -Laboratory, [facility] Start: 05-29-2024 End: 05-29-2024 Patient encounter procedure Santino Marie DO -[facility] Work Phone: Start: 05-29-2024 End: 05-29-2024 [facility] Start: 05-29-2024 End: 05-29-2024 ambulatory [facility] Facility:[facility] Start: 04-03-2024 End: 04-03-[address] Angelita Call MD -Laboratory, [facility] Start: 04-03-2024 End: 04-03-2024 ambulatory [facility] Facility:[facility] Start: 03-31-2024 ambulatory [facility] Facility: [facility] Start: 03-24-2024 ambulatory [facility] Facility: [facility] Start: 03-21-2024 End: 03-21-[address] Rehana Vega MD -Laboratory, Specimen Work Phone: Start: 03-21-2024 End: 03-21-2024 ambulatory [facility] Facility:[facility] Start: 02-19-2024 End: 02-19-[address] Angelita Call MD -[facility] Work Phone: Start: 02-19-2024 End: 02-19-2024 ambulatory [facility] Facility:[facility] Start: 12-21-2023 End: 12-21-2023 ambulatory [facility] Facility:[facility] Start: 12-16-2023 End: 12-16-2023 ambulatory [facility] Facility:[facility] Start: 12-09-2023 End: 12-09-2023 ambulatory Santinoadolfo Marie Facility:[facility] Start: 11-25-2023 End: 11-25-2023 ambulatory [facility] Facility:[facility] Start: 11-25-2023 End: 11-25-2023 ambulatory [facility] Facility:[facility] Start: 10-28-[facility] Start: 09-08-2023 End: 09-08-2023 Subsequent hospital visit by physician [facility] Work Phone: Radiology Comment on above: Injury of right wris t, initial encounter [S69.91XA] Start: 09-08-2023 End: 09-08-2023 ambulatory ANGELITA Mer [facility] Facility:[facility] Start: 09-08-2023 End: 09-08-2023 Office outpatient visit 15 minutes Bruce Yu NAIL SPECIALIST.ACETONE BUTTON PASTER Work Phone: [facility] Comment on above: Injury of right wris t, initial encounter (Primary Dx); Pain of right hand Start: 08-10-2023 Telephone encounter Elder tellez MD Work Phone: [facility] [place] Comment on above: No Show Start: 07-16-2023 Telephone encounter Ana lion NAIL SPECIALIST.ACETONE BUTTON PASTER Work Phone: [facility] [place] Comment on above: Results Start: 07-13-2023 End: 07-13-[address] Elder Reddy Work Phone: [facility]-Laboratory, [facility] Start: 07-13-2023 End: 07-13-[address] Elder Reddy Work Phone: [facility] Work Phone: Start: 07-13-2023 End: 07-13-2023 Subsequent hospital visit by physician [facility] Work Phone: Radiology Comment on above: Shortness of breath [R06.02] Start: 07-13-2023 End: 07-13-2023 ambulatory ELDER REDDY Facility:[facility] Start: 07-13-2023 End: 07-13-2023 Patient encounter procedure Ana Browning NAIL SPECIALIST.ACETONE BUTTON PASTER Work Phone: [facility] [place] Comment on above: Shortness of breath (Primary Dx); Generalized edema; VIKA (acute kidney injury) (HCC); Esophageal varices without bleeding, unspecified esophageal varices type (HCC); Portal hypertensive gastropathy (HCC) (HCC); Cirrhosis of liver without ascites, unspecified hepatic cirrhosis type (HCC); Primary hypertension; Controlled type 2 diabetes mellitus without complication, without long-term current use of insulin (HCC) Start: 07-09-2023 Non-patient / Non-visit Dr. Laurita Reddy Work Phone: [facility] Work Phone: Start: 07-08-2023 Non-patient / Non-visit Dr. Laurita Reddy Work Phone: [facility] Work Phone: Start: 07-08-2023 Non-patient / Non-visit Dr. Laurita Reddy Work Phone: [facility] Start: 07-07-2023 Non-patient / Non-visit Dr. Laurita Reddy Work Phone: [facility] Work Phone: Start: 07-07-2023 Non-patient / Non-visit Dr. Laurita Reddy Work Phone: [facility] Start: 07-06-2023 Non-patient / Non-visit Dr. Laurita Reddy Work Phone: [facility] Start: 07-06-2023 Telephone encounter Elder tellez MD Work Phone: [facility] [place] Comment on above: Patient Update Start: 07-06-2023 End: 07-09-2023 [facility] Start: 07-05-2023 Telephone encounter Elder tellez MD Work Phone: [facility] [place] Comment on above: Patient Update Start: 06-29-2023 End: 06-29-2023 Patient encounter procedure Cecilia Powers MD Work Phone: Gastroenterology Comment on above: Cirrhosis of liver w ithout ascites, unspecified hepatic cirrhosis type (HCC) (Primary Dx) Start: 06-29-2023 End: 06-29-2023 ambulatory ELDER REDDY Facility:[facility] Start: 06-21-2023 [facility] Elder Reddy MD Work Phone: Ambulatory Surgery Comment on above: colorectal cancer sc reening Start: 06-21-2023 ambulatory Elder wilson MD Work Phone: Ambulatory Surgery Start: 05-03-2023 End: 05-03-2023 Patient encounter procedure Pepe Michel APRN.CNP Work Phone: [facility] Comment on above: Cough present for gr eater than 3 weeks (Primary Dx); Viral bronchitis Start: 05-03-2023 End: 05-03-2023 ambulatory ELDER REDDY Facility:[facility] Start: 05-03-2023 End: 05-03-2023 Subsequent hospital visit by physician Holly [facility] Work Phone: Radiology Comment on above: Cough present for gr eater than 3 weeks [R05.8] Start: 04-27-2023 Telephone encounter Elder tellez MD Work Phone: [facility] [place] Comment on above: Results Start: 04-26-2023 End: 04-26-2023 ambulatory ELDER REDDY Facility:[facility] Start: 04-26-2023 End: 04-26-2023 Patient encounter procedure Elder Reddy MD Work Phone: [facility] [place] Comment on above: Flu-like symptoms (P rimary Dx); Controlled type 2 diabetes mellitus without complication, without long-term current use of insulin (HCC); Primary hypertension; Pure hypercholesterolemia; Thrombocytopenia (HCC) Start: 04-22-2023 Telephone encounter Elder tellez MD Work Phone: [facility] [place] Comment on above: Forms ([place] dental form) Start: 04-12-2023 End: 04-12-2023 ambulatory ELDER REDDY Facility:[facility] Start: 04-05-2023 End: 04-05-2023 ambulatory BRENDA SIMEON Facility:[facility] Start: 03-23-2023 End: 03-23-2023 ambulatory ELDER REDDY Facility:[facility] Start: 03-13-2023 Telephone encounter Ana lion NAIL SPECIALIST.ACETONE BUTTON PASTER Work Phone: [facility] Start: 03-06-2023 End: 03-06-2023 Subsequent hospital visit by physician [facility] Work Phone: Radiology Comment on above: Acute cough [R05.1] Start: 03-06-2023 End: 03-06-2023 ambulatory ELDER REDDY Facility:[facility] Start: 02-23-2023 End: 02-23-2023 ambulatory ANA BROWNING Facility:[facility] Start: 02-23-2023 End: 02-23-2023 Patient encounter procedure Ana Browning NAIL SPECIALIST.ACETONE BUTTON PASTER Work Phone: [facility] [place] Comment on above: Eye muscle twitches (Primary Dx) Start: 11-30-2022 End: 11-30-2022 ambulatory ARIE GAYTAN Facility:[facility] Start: 11-30-2022 End: 11-30-2022 Patient encounter procedure Arie Gaytan AUD Work Phone: Audiology Comment on above: 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); Pulsatile tinnitus, right ear Start: 11-19-2022 End: 11-19-2022 ambulatory ELDER REDDY Facility:[facility] Start: 11-17-2022 Refill Elder wilson MD Work Phone: [facility] [place] Comment on above: Refill Request Start: 11-09-2022 End: 11-09-2022 ambulatory ELDER REDDY Facility:[facility] Start: 11-09-2022 End: 11-09-2022 Subsequent hospital visit by physician Bone Density [facility] Work Phone: Radiology Comment on above: Screening for osteop orosis [Z13.820] Start: 10-20-2022 End: 10-20-2022 Patient encounter procedure Ana Mccarty APRN.CNP Work Phone: [facility] [place] Comment on above: Primary hypertension (Primary Dx); Thrombocytopenia (HCC); Abnormal liver enzymes; Pure hypercholesterolemia; Controlled type 2 diabetes mellitus without complication, without long-term current use of insulin (HCC); Screening for osteoporosis; Asymptomatic menopause Start: 10-20-2022 End: 10-20-2022 ambulatory ANA BROWNING Facility:[facility] Start: 10-07-2022 End: 10-07-2022 ambulatory ELDER REDDY Facility:[facility] Start: 10-06-2022 End: 10-06-2022 ambulatory BRENDA SIMEON Facility:[facility] Start: 09-30-2022 End: 09-30-2022 ambulatory ELDER REDDY Facility:[facility] Start: 09-30-2022 End: 09-30-2022 Patient encounter procedure Brittani Santana MD Work Phone: Otolaryngology Comment on above: Right-sided tinnitus (Primary Dx); Facial paralysis Start: 09-28-2022 End: 09-28-2022 ambulatory BRENDA REDDY Facility:[facility] Start: 09-28-2022 End: 09-28-2022 Patient encounter procedure Katherine Goldstein OD Work Phone: Ophthalmology Comment on above: Dover's palsy (Primar y Dx); Type 2 diabetes mellitus without retinopathy (HCC); Combined forms of age-related cataract of both eyes; Regular astigmatism of both eyes; Presbyopia Start: 09-21-2022 End: 09-21-2022 ambulatory BRENDA SIMEON Facility:[facility] Start: 09-21-2022 End: 09-21-2022 Subsequent hospital visit by physician Us [facility] Work Phone: Radiology Comment on above: Thrombocytopenia (HC C) [D69.6] Start: 09-06-2022 Telephone encounter Kavon Frost ci DO Work Phone: Hematology/Oncology Comment on above: Results (Normal bone marrow) Start: 08-24-2022 ambulatory ROCIO MENDOZA Facility:[facility] Start: 08-17-2022 End: 08-17-[address] Ismael Naqvi Work Phone: [facility] Work Phone: Start: 08-17-2022 End: 08-17-[address] Ismael Naqvi Work Phone: [facility]-Speech Therapy Start: 07-28-2022 Telephone encounter Kavon ly DO Work Phone: Hematology/Oncology Comment on above: Results (CBC platele ts improved) Start: 07-19-2022 Telephone encounter Kavon Frost ci DO Work Phone: Hematology/Oncology Comment on above: Results (Lab work fo r thrombocytopenia) Start: 07-13-2022 Telephone encounter Kavon Frost ci DO Work Phone: Hematology/Oncology Comment on above: AVS 07/13/22 Start: 07-13-2022 End: 07-13-2022 ambulatory Kavon Lopes DO Work Phone: Hematology/Oncology Comment on above: Thrombocytopenia (HC C) (Primary Dx) Start: 07-13-2022 End: 07-13-2022 Patient encounter procedure Kavon Pedroi DO Work Phone: [facility] Start: 06-24-2022 Telephone encounter Kavon Israel Frost ci DO Work Phone: Hematology/Oncology Comment on above: New Patient Start: 06-23-2022 End: 06-23-2022 Patient encounter procedure Elder Reddy MD Work Phone: [facility] [place] Comment on above: Thrombocytopenia (HC C) (Primary Dx); 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); Type 2 diabetes mellitus without retinopathy (HCC); Combined forms of age-related cataract of both eyes; Presbyopia Start: 06-17-2022 Telephone encounter Memo Treviño PA-C Work Phone: Neurology Comment on above: Clinical Research Nurse Coordinator - O ther; Patient Update; Results Start: 06-16-2022 End: 06-16-2022 Patient encounter procedure Memo Treviño PA-C Work Phone: Neurology Comment on above: Dover's palsy (Primar y Dx); Right ear pain Start: 06-09-2022 End: 06-09-2022 Patient encounter procedure Ana Mccarty APRN.ACETONE BUTTON PASTER Work Phone: [facility] [place] Comment on above: Dover's palsy (Primar y Dx); Hyperglycemia Start: 06-03-2022 Non-patient / Non-visit Dr. Dian Naqvi Work Phone: [facility] Start: 06-02-2022 Non-patient / Non-visit Dr. Dian Naqvi Work Phone: [facility] Start: 06-02-2022 Non-patient / Non-visit Dr. Dian Naqvi Work Phone: [facility] Start: 06-01-2022 Non-patient / Non-visit Dr. Dian Naqvi Work Phone: [facility] Start: 06-01-2022 End: 06-03-2022 Evaluation and management of inpatient [facility] Start: 06-01-2022 End: 06-03-[address] Ismael Naqvi Work Phone: [facility] Work Phone: Start: 04-20-2022 Telephone encounter Ana Mccarty APRN.ACETONE BUTTON PASTER Work Phone: Internal [facility] Comment on above: Results Start: 04-08-2022 ambulatory Elder wilson MD Work Phone: Internal Medicine [facility] Start: 03-17-2022 Refill Elder wilson MD Work Phone: [facility] [place] Comment on above: Refill Request Start: 02-17-2022 Telephone encounter Elder tellez MD Work Phone: [facility] [place] Comment on above: Medication Request Start: 11-03-2021 End: 11-03-2021 Patient encounter procedure Elder Reddy MD Work Phone: [facility] [place] Comment on above: Controlled type 2 di abetes mellitus without complication, without long-term current use of insulin (HCC) (Primary Dx); Fatty liver; Primary hypertension; Obesity, Class II, BMI 35-39.9 Start: 09-24-2021 End: 09-24-2021 Patient encounter procedure Guerrero Rolon [facility] Work Phone: [facility] Comment on above: Controlled type 2 di abetes mellitus without complication, without long-term current use of insulin (HCC) (Primary Dx); Medication management Start: 09-17-2021 End: 09-17-2021 Nursing evaluation of patient and report Stephanie Humphreys RN Work Phone: Endocrinology Comment on above: Controlled type 2 di abetes mellitus without complication, without long-term current use of insulin (HCC) (Primary Dx) Start: 09-02-2021 End: 09-02-2021 Subsequent hospital visit by physician [facility] Work Phone: Radiology Comment on above: Abnormal liver enzym es [R74.8] Start: 08-12-2021 Telephone encounter Elder tellez MD Work Phone: [facility] Comment on above: Appointment Start: 08-06-2021 Telephone encounter Eda [facility] Comment on above: New Pharmacy-med rev iew Start: 08-05-2021 Telephone encounter Elder tellez MD Work Phone: [facility] [place] Comment on above: Results, Lab Start: 07-28-2021 End: 07-28-2021 Patient encounter procedure Katherine Goldstein OD Work Phone: Ophthalmology Comment on above: Type 2 diabetes marissa itus without retinopathy (HCC) (Primary Dx); Combined forms of age-related cataract of both eyes; Presbyopia Start: 07-23-2021 End: 07-23-2021 Patient encounter procedure Elder Reddy MD Work Phone: [facility] [place] Comment on above: Controlled type 2 di abetes mellitus without complication, without long-term current use of insulin (HCC) (Primary Dx); Obesity, Class II, BMI 35-39.9; Primary hypertension; Diarrhea, unspecified type; Pure hypercholesterolemia Start: 07-08-2021 ambulatory Elder wilson MD Work Phone: Internal Medicine [facility] Start: 02-02-2020 End: 02-02-2020 Patient encounter procedure CECILIA ALLEN [facility] Start: 11-10-2019 End: 11-10-2019 Patient encounter procedure NATTY KIMBALL [facility] Start: 11-08-2018 Patient encounter procedure SYLVESTER RUVALCABA Facility:[facility] Procedures Date Procedure Procedure Detail Performing Clinician Start: 08-10-2024 Hepatitis A virus antibody, total measurement Dr. Angelita Call MD Work Phone: Comment on above: Comment: The HAV total antibody assay de tects both IgG andIgM but does not differentiate between them. A negativeresult suggests susceptibility to infection. A positiveresult could be due to vaccination, previously resolvedinfection or active infection. Testing for HAV IgM shouldbe performed if active HAV infection is suspected. [facility] profiles that will automatically reflex positive HAVtotal antibody results to IgM (e.g., panel #[id number] HAVAntibody w/ Rfx).Performed at: [address] [id number] Director: Aaron Ackerman PhD, Phone: [phone] Start: 08-01-[address] Angelita Call MD Work Phone: Start: 07-06-[address] Angelita isaac MD Work Phone: Start: 07-04-2024 Plain X-ray abdomen Dr. Angelita Call MD Work Phone: Start: 06-07-[address] Angelita isaac MD Work Phone: Start: 05-29-2024 [id number] measurement Dr. Belinda Call MD Work Phone: Comment on above: [facility] Electrochemiluminescen ce Immunoassay(ECLIA)Values obtained with different assay methods or kits cannotbe used interchangeably. Results cannot be interpreted asabsolute evidence of the presence or absence of malignantdisease.This test is not interpretable in females.Performed at: [facility] [place] [id number] Director: Aaron Ackerman PhD, Phone: [phone] Start: 02-19-2024 MRI of lumbar spine Dr. Angelita Call MD Work Phone: Start: 09-08-2023 Radex hand minimum 3 views Bruce patiño NAIL SPECIALIST.ACETONE BUTTON PASTER Work Phone: Start: 07-13-2023 Radiologic exam chest 2 views Anasukumar lion NAIL SPECIALIST.ACETONE BUTTON PASTER Work Phone: Start: 07-07-[address] Elder Reddy Work Phone: Start: 07-07-[address] Liliana Reddy Work Phone: Start: 07-07-[address] Elder Reddy Work Phone: Start: 07-07-[address] Elder Reddy Work Phone: Start: 07-07-20[address] [address] parasites identification [address] Liliana Reddy Work Phone: Start: 07-06-2023 Measurement of occult blood in stool specimen using immunoassay Start: 07-06-2023 CT of abdomen and pelvis without contrast Start: 07-06-2023 Diagnostic radiography of abdomen Start: 05-03-2023 Radiologic exam chest 2 views Pepe Andrews NAIL SPECIALIST.ACETONE BUTTON PASTER Work Phone: Start: 03-06-2023 Radiologic exam chest 2 views Igor Chaudhary MD Work Phone: Start: 11-30-2022 HEARING TEST/AUDIOGRAM Arie NI Work Phone: Start: 11-09-2022 Dxa bone density study 1/> sites axial skel Ana Older NAIL SPECIALIST.ACETONE BUTTON PASTER Work Phone: Start: 09-21-2022 Us abdominal real time w/image limited Kavon Lopes DO Work Phone: Start: 06-02-2022 MRI of brain without contrast Dr. Ismael Naqvi Work Phone: Start: 06-01-2022 Plain chest X-ray Start: 06-01-2022 CT angiography of head and neck Start: 09-02-2021 Us abdominal real time w/image limited Elder Reddy MD Work Phone: Start: 04-28-2021 Adult depression screening assessment Elder Reddy MD Work Phone: Plan of Treatment Date Care Activity Detail Author Start: 07-12-2024 Annual PCP Team Chronic Disease Visit Annual PCP Team Chronic Disease Visit [facility] Start: 04-26-2024 Annual PCP Team Chronic Disease Visit Annual PCP Team Chronic Disease Visit [facility] Start: 03-23-2024 Annual PCP Team Chronic Disease Visit Annual PCP Team Chronic Disease Visit [facility] Start: 03-23-2024 BP Controlled (<130/80) BP Controlled (<130/80) [facility] Start: 03-23-2024 Hepatitis B screening Urine Albumin:Creatinine Ratio [facility] Start: 03-23-2024 Hepatitis B surface antibody level LDL Cholesterol [facility] Start: 03-23-2024 RSV Vaccine (1 - 1-dose 60+ series) RSV Vaccine (1 - 1-dose 60+ series) [facility] Comment on above: Postponed from 2017 (Declined at t his time) Start: 02-24-2024 Annual PCP Team Chronic Disease Visit Annual PCP Team Chronic Disease Visit [facility] Start: 12-29-2023 End: 07-28-2024 US Abdomen RUQ US ABD RIGHT UPPER QUADRANT Radiology Routine Cirrhosis of liver without ascites, unspecified hepatic cirrhosis type (HCC) Expected: 12/29/2023, Expires: 07/28/2024 [facility] Work Phone: Comment on above: Expected: 12/29/2023, Expires: Start: 12-29-2023 End: 12-29-2023 Patient encounter procedure 12/29/2023 10:05 AM EDT Office Visit Gastroenterology [address] [id number] Cecilia Powers MD [address] [place], [place] [id number] 6 months f/u Gastroenterology Comment on above: 6 months f/u Start: 11-20-2023 Hepatitis B surface antibody level LDL Cholesterol [facility] Start: 11-14-2023 Covid-19 Vaccine () Covid-19 Vaccine () [facility] Start: 11-14-2023 Influenza vaccination [facility] Start: 10-21-2023 ANNUAL PCP TEAM CHRONIC DISEASE VISIT ANNUAL PCP TEAM CHRONIC DISEASE VISIT [facility] Start: 10-21-2023 BP CONTROLLED (<130/80) BP CONTROLLED (<130/80) [facility] Start: 10-21-2023 COVID-19 VACCINE (5 - Additional dose for Cynthia series) COVID-19 VACCINE (5 - Additional dose for Cynthia series) [facility] Comment on above: Postponed from 2022 (Declined at t his time) Start: 10-04-2023 End: 10-04-2023 Patient encounter procedure 10/04/2023 9:00 AM EDT Office Visit [facility] [address] [place], [place] [id number] Katherine Goldstein, OD [address] [place], [place] [id number] Diabetic eye exam Ophthalmology Comment on above: Diabetic eye exam Start: 09-22-2023 End: 09-22-2023 Patient encounter procedure 09/22/2023 1:00 PM EDT Office Visit Family Medicine [facility] [address] [facility] [place] [address] Ramy Anaya V, DO [address] [facility] [place] [address] ec follow up [facility] Comment on above: ec follow up Start: 09-21-2023 Hemoglobin A1c measurement HbA1C [facility] Start: 09-12-2023 Influenza vaccination Influenza Vaccine (#1) [facility] Comment on above: Postponed from 11/13/2022 (Declined at t his time) Start: 08-10-2023 End: 08-10-2023 Patient encounter procedure 08/10/2023 9:00 AM EDT Office Visit Internal Medicine [facility] [address] [place] [address] Elder Reddy MD [address] [place] [address] medi well V / due for colonoscopy [facility] Comment on above: medi well V / due for colonoscopy Start: 07-29-2023 BP CONTROLLED (<130/80) BP CONTROLLED (<130/80) [facility] Start: 07-25-2023 End: 10-24-2023 CBC panel - Blood by Automated count CBC Lab Routine Thrombocytopenia (HCC) Expected: 07/25/2023, Expires: 10/24/2023 [facility] Work Phone: Comment on above: Expected: 07/25/2023, Expires: 4 Start: 07-25-2023 End: 10-24-2023 Comprehensive metabolic 2000 panel - Serum or Plasma COMP METABOLIC PANEL Lab Routine Pure hypercholesterolemia Expected: 07/25/2023, Expires: 10/24/2023 [facility] Work Phone: Comment on above: Expected: 07/25/2023, Expires: 4 Start: 07-25-2023 End: 10-24-2023 Hemoglobin A1c in Blood HGB A1C Lab Routine Controlled type 2 diabetes mellitus without complication, without long-term current use of insulin (HCC) Expected: 07/25/2023, Expires: 10/24/2023 [facility] Work Phone: Comment on above: Expected: 07/25/2023, Expires: Start: 07-25-2023 End: 10-24-2023 Lipid 1996 panel - Serum or Plasma LIPID PANEL BASIC Lab Routine Pure hypercholesterolemia Expected: 07/25/2023, Expires: 10/24/2023 [facility] Work Phone: Comment on above: Expected: 07/25/2023, Expires: Start: 07-15-2023 3 comp foot exam completed DIABETIC FOOT EXAM [facility] Start: 07-15-2023 ANNUAL PCP TEAM CHRONIC DISEASE VISIT ANNUAL PCP TEAM CHRONIC DISEASE VISIT [facility] Start: 07-15-2023 Diabetic foot examination Diabetic Foot Exam [facility] Start: 07-15-2023 SHINGRIX VACCINE (1 of 2) SHINGRIX VACCINE (1 of 2) [facility] Comment on above: Postponed from 09/27/2007 (Declined at t his time) Start: 07-13-2023 End: 10-12-2023 Basic metabolic 2000 panel - Serum or Plasma BASIC METABOLIC PANEL Lab Routine Shortness of breath VIKA (acute kidney injury) (HCC) Expected: 07/13/2023, Expires: 10/12/2023 [facility] Comment on above: Expected: 07/13/2023, Expires: Start: 07-13-2023 End: 10-12-2023 CBC panel - Blood by Automated count COMPLETE BLOOD COUNT Lab STAT Shortness of breath Expected: 07/13/2023, Expires: 10/12/2023 [facility] Comment on above: Expected: 07/13/2023, Expires: Start: 07-13-2023 End: 10-12-2023 Natriuretic peptide.B prohormone N-Terminal [Mass/volume] in Serum or Plasma NT PRO BNP Lab Routine Shortness of breath Generalized edema Expected: 07/13/2023, Expires: 10/12/2023 [facility] Work Phone: Comment on above: Expected: 07/13/2023, Expires: Start: 07-09-2023 Patient discharge [facility] Start: 07-08-2023 Provision of activity privileges [facility] Start: 07-07-2023 Serum immunofixation [facility] Start: 07-07-2023 [facility] Start: 07-07-2023 Referral to windchill administrator [facility] Start: 07-06-2023 Referral to gastroenterology service [facility] Start: 07-06-2023 End: 07-06-2023 Patient encounter procedure 07/06/2023 9:20 AM EDT Office Visit [facility] [place] [address] [place] [address] Ana Browning, NAIL SPECIALIST.[facility] [address] [facility] [place] [address] Bleeding in Mouth from where molars were taken out; Taken out 06/30/2023 [facility] Comment on above: Bleeding in Mouth from where molars were taken out; Taken out 06/30/2023 Start: 07-06-2023 Application of intermittent pneumatic compression device [facility] Start: 07-06-2023 Following clinical pathway protocol [facility] Start: 07-06-2023 End: 07-06-2023 [facility] Start: 07-06-2023 Aspiration precautions [facility] Start: 07-06-2023 Assessment of risk of venous thromboembolism [facility] Start: 07-06-2023 Documentation procedure [facility] Start: 07-06-2023 Enteric precautions [facility] Start: 07-06-2023 Incentive spirometry [facility] Start: 07-06-2023 Insertion of catheter into peripheral vein [facility] Start: 07-06-2023 Measuring intake and output [facility] Start: 07-06-2023 Oxygen therapy [facility] Start: 07-06-2023 Providing care according to standard [facility] Start: 07-06-2023 Provision of activity privileges [facility] Start: 07-06-2023 Referral to gastroenterology service [facility] Start: 07-06-2023 Referral to windchill administrator [facility] Start: 07-06-2023 Referral to service [facility] Start: 07-06-2023 Clostridioides difficile DNA [Presence] in Unspecified specimen by CHIVO with probe detection [facility] Start: 07-06-2023 Gastrointestinal pathogens panel - Stool by CHIVO with probe detection [facility] Start: 07-06-2023 Lactoferrin [Presence] in Stool by Immunoassay [facility] Start: 07-06-2023 Verification routine [facility] Start: 07-06-2023 Admission procedure [facility] Start: 07-06-2023 Patient referral to dietitian [facility] Start: 06-24-2023 ANNUAL PCP TEAM CHRONIC DISEASE VISIT ANNUAL PCP TEAM CHRONIC DISEASE VISIT [facility] Start: 06-24-2023 Glaucoma screening Dilated Retinal Exam [facility] Start: 06-24-2023 Hepatitis C antibody, confirmatory test DILATED RETINAL EXAM [facility] Start: 06-10-2023 ANNUAL PCP TEAM CHRONIC DISEASE VISIT ANNUAL PCP TEAM CHRONIC DISEASE VISIT [facility] Start: 05-20-2023 Hemoglobin A1c measurement HbA1C [facility] Start: 05-20-2023 Hemoglobin A1c/Hemoglobin.total in Blood HbA1C [facility] Start: 04-15-2023 COLORECTAL CANCER SCREENING COLORECTAL CANCER SCREENING [facility] Comment on above: Postponed from 2002 (Declined at t his time) Start: 04-15-2023 Hepatitis B screening URINE ALBUMIN:CREATININE RATIO [facility] Start: 04-15-2023 Screening for malignant neoplasm of colon Colorectal Cancer Screening [facility] Comment on above: Postponed from 2002 (Declined at t his time) Start: 04-14-2023 ANNUAL PCP TEAM CHRONIC DISEASE VISIT ANNUAL PCP TEAM CHRONIC DISEASE VISIT [facility] Start: 04-14-2023 Urine microalbumin profile [facility] Comment on above: Postponed from 1976 (Declined at t his time) Start: 03-15-2023 Advance Directive Discussion Advance Directive Discussion [facility] Start: 03-15-2023 Behavioral Health Screening Behavioral Health Screening [facility] Start: 03-15-2023 Depression Assessment Depression Assessment [facility] Start: 11-19-2022 Hepatitis B surface antibody level LDL CHOLESTEROL [facility] Start: 11-13-2022 Covid-19 Vaccine () Covid-19 Vaccine () [facility] Start: 11-13-2022 Influenza vaccination [facility] Start: 11-03-2022 ANNUAL PCP TEAM CHRONIC DISEASE VISIT ANNUAL PCP TEAM CHRONIC DISEASE VISIT [facility] Start: 10-20-2022 End: 12-20-2022 Hemoglobin A1c in Blood HGB A1C Lab Routine Controlled type 2 diabetes mellitus without complication, without long-term current use of insulin (HCC) Expected: 10/20/2022, Expires: 12/20/2022 [facility] Work Phone: Comment on above: Expected: 10/20/2022, Expires: 3 Start: 10-20-2022 End: 12-20-2022 Lipid 1996 panel - Serum or Plasma LIPID PANEL BASIC Lab Routine Pure hypercholesterolemia Expected: 10/20/2022, Expires: 12/20/2022 [facility] Work Phone: Comment on above: Expected: 10/20/2022, Expires: Start: 10-13-2022 Hemoglobin A1c/Hemoglobin.total in Blood HBA1C [facility] Start: 10-13-2022 HPV TESTING HPV TESTING [facility] Comment on above: Postponed from 09/27/1987 (Declined at t his time) Start: 10-13-2022 PAP TESTING PAP TESTING [facility] Comment on above: Postponed from 1978 (Declined at t his time) Start: 2022 ADVANCE DIRECTIVE DISCUSSION ADVANCE DIRECTIVE DISCUSSION [facility] Start: 2022 BONE DENSITY BONE DENSITY [facility] Start: 2022 COVID-19 VACCINE (5 - Additional dose for Cynthia series) COVID-19 VACCINE (5 - Additional dose for Cynthia series) [facility] Start: 09-11-2022 Influenza vaccination INFLUENZA (#1) [facility] Comment on above: Postponed from 11/13/2021 (Declined at t his time) Start: 07-28-2022 Hepatitis B surface antibody level LDL CHOLESTEROL [facility] Start: 07-28-2022 Hepatitis C antibody, confirmatory test DILATED RETINAL EXAM [facility] Start: 07-23-2022 3 comp foot exam completed DIABETIC FOOT EXAM [facility] Start: 07-23-2022 ANNUAL PCP TEAM CHRONIC DISEASE VISIT ANNUAL PCP TEAM CHRONIC DISEASE VISIT [facility] Start: 07-13-2022 End: 09-12-2022 Chronic hepatitis differentiation between hepatitis B and C virus panel - Serum or Plasma [facility] Work Phone: Comment on above: Expected: 07/13/2022, Expires: 3 Start: 07-13-2022 End: 09-12-2022 Cobalamin (Vitamin B12) [Mass/volume] in Serum or Plasma [facility] Work Phone: Comment on above: Expected: 07/13/2022, Expires: 3 Start: 07-13-2022 End: 09-12-2022 Ferritin [Mass/volume] in Serum or Plasma [facility] Work Phone: Comment on above: Expected: 07/13/2022, Expires: 3 Start: 07-13-2022 End: 09-12-2022 Folate [Mass/volume] in Serum or Plasma [facility] Work Phone: Comment on above: Expected: 07/13/2022, Expires: 3 Start: 07-13-2022 End: 09-12-2022 Helicobacter pylori IgG Ab [Presence] in Serum or Plasma by Immunoassay [facility] Work Phone: Comment on above: Expected: 07/13/2022, Expires: 3 Start: 07-13-2022 End: 09-12-2022 HIV 1+2 Ab [Presence] in Serum or Plasma by Immunoassay [facility] Work Phone: Comment on above: Expected: 07/13/2022, Expires: 3 Start: 07-13-2022 End: 09-12-2022 Iron and Iron binding capacity panel - Serum or Plasma [facility] Work Phone: Comment on above: Expected: 07/13/2022, Expires: 3 Start: 07-13-2022 End: 09-12-[address] [facility] Work Phone: Comment on above: Expected: 07/13/2022, Expires: Start: 06-03-2022 Patient discharge [facility] Start: 06-02-2022 Speech therapy assessment [facility] Start: 06-02-2022 Chart related administrative procedure [facility] Start: 06-02-2022 Application of intermittent pneumatic compression device [facility] Start: 06-02-2022 Following clinical pathway protocol [facility] Start: 06-01-2022 Assessment of risk of venous thromboembolism [facility] Start: 06-01-2022 Cardiac monitoring [facility] Start: 06-01-2022 Care regimes management [facility] Start: 06-01-2022 Catheterization of vein [facility] Start: 06-01-2022 Elevation of head of bed [facility] Start: 06-01-2022 Exercises [facility] Start: 06-01-2022 Implementation of planned interventions [facility] Start: 06-01-2022 Insertion of catheter into peripheral vein [facility] Start: 06-01-2022 Measuring intake and output [facility] Start: 06-01-2022 Notification of physician [facility] Start: 06-01-2022 Oxygen therapy [facility] Start: 06-01-2022 Providing care according to standard [facility] Start: 06-01-2022 Provision of activity privileges [facility] Start: 06-01-2022 Referral to occupational therapist [facility] Start: 06-01-2022 Referral to service [facility] Start: 06-01-2022 Speech therapy assessment [facility] Start: 06-01-2022 Tobacco use cessation education [facility] Start: 06-01-2022 [facility] Start: 06-01-2022 Verification routine [facility] Start: 06-01-2022 Admission procedure [facility] Start: 06-01-2022 Oxygen therapy [facility] Start: 06-01-2022 [facility] Start: 06-01-2022 End: 08-01-2022 Thyrotropin [Units/volume] in Serum or Plasma TSH BLD Lab Routine Abnormal TSH Expected: 06/01/2022 (Approximate), Expires: 08/01/2022 [facility] Work Phone: Comment on above: Expected: 06/01/2022 (Approximate), Expi res: 08/01/2022 Start: 06-01-2022 End: 08-01-2022 Thyroxine (T4) free [Mass/volume] in Serum or Plasma T4 FREE/FREE THYROX Lab Routine Abnormal TSH Expected: 06/01/2022 (Approximate), Expires: 08/01/2022 [facility] Work Phone: Comment on above: Expected: 06/01/2022 (Approximate), Expi res: 08/01/2022 Start: 06-01-2022 End: 08-01-2022 Triiodothyronine (T3) [Mass/volume] in Serum or Plasma T3 BLD Lab Routine Abnormal TSH Expected: 06/01/2022 (Approximate), Expires: 08/01/2022 [facility] Work Phone: Comment on above: Expected: 06/01/2022 (Approximate), Expi res: 08/01/2022 Start: 05-19-2022 Hemoglobin A1c/Hemoglobin.total in Blood HBA1C [facility] Start: 04-28-2022 Adult depression screening assessment DEPRESSION SCREENING [facility] Start: 04-28-2022 ANNUAL PCP TEAM CHRONIC DISEASE VISIT ANNUAL PCP TEAM CHRONIC DISEASE VISIT [facility] Start: 04-28-2022 HEPATITIS C SCREENING HEPATITIS C SCREENING [facility] Comment on above: Postponed from 09/27/1975 (Declined at t his time) Start: 04-28-2022 HIV SCREENING HIV SCREENING [facility] Comment on above: Postponed from 09/27/1975 (Declined at t his time) Start: 04-28-2022 SHINGRIX VACCINE (1 of 2) SHINGRIX VACCINE (1 of 2) [facility] Comment on above: Postponed from 09/27/2007 (Declined at t his time) Start: 03-15-2022 DEPRESSION ASSESSMENT DEPRESSION ASSESSMENT [facility] Start: 11-13-2021 Influenza vaccination [facility] Start: 11-04-2021 End: 01-04-2022 Basic metabolic 2000 panel - Serum or Plasma BASIC METABOLIC PNL Lab Routine Controlled type 2 diabetes mellitus without complication, without long-term current use of insulin (HCC) Expected: 11/04/2021, Expires: 01/04/2022 [facility] Work Phone: Comment on above: Expected: 11/04/2021, Expires: 2 Start: 11-04-2021 End: 01-04-2022 Hemoglobin A1c in Blood HGB A1C Lab Routine Controlled type 2 diabetes mellitus without complication, without long-term current use of insulin (HCC) Expected: 11/04/2021, Expires: 01/04/2022 [facility] Work Phone: Comment on above: Expected: 11/04/2021, Expires: 2 Start: 11-04-2021 End: 01-04-2022 Lipid 1996 panel - Serum or Plasma LIPID PANEL BASIC Lab Routine Controlled type 2 diabetes mellitus without complication, without long-term current use of insulin (HCC) Expected: 11/04/2021, Expires: 01/04/2022 [facility] Work Phone: Comment on above: Expected: 11/04/2021, Expires: 2 Start: 10-28-2021 Hemoglobin A1c/Hemoglobin.total in Blood HBA1C [facility] Start: 09-16-2021 End: 11-16-2021 CBC W Auto Differential panel - Blood CBC + DIFF Lab Routine Thrombocytopenia (HCC) Expected: 09/16/2021, Expires: 11/16/2021 [facility] Work Phone: Comment on above: Expected: 09/16/2021, Expires: 2 Start: 09-16-2021 End: 11-16-2021 Chronic hepatitis differentiation between hepatitis B and C virus panel - Serum or Plasma HEP REMOTE PANEL BL Lab Routine Thrombocytopenia (HCC) Expected: 09/16/2021, Expires: 11/16/2021 [facility] Work Phone: Comment on above: Expected: 09/16/2021, Expires: 2 Start: 09-16-2021 End: 11-16-2021 Hepatic function 2000 panel - Serum or Plasma HEPATIC FUNCTION PNL Lab Routine Thrombocytopenia (HCC) Expected: 09/16/2021, Expires: 11/16/2021 [facility] Work Phone: Comment on above: Expected: 09/16/2021, Expires: 2 Start: 09-16-2021 End: 11-16-2021 Thyrotropin [Units/volume] in Serum or Plasma TSH BLD Lab Routine Elevated TSH Expected: 09/16/2021, Expires: 11/16/2021 [facility] Work Phone: Comment on above: Expected: 09/16/2021, Expires: 2 Start: 08-25-2021 COVID-19 VACCINE (4 - Booster for Cynthia series) COVID-19 VACCINE (4 - Booster for Cynthia series) [facility] Start: 07-23-2021 End: 09-22-2021 ALBUMIN/CREAT RATIO RND UR ALBUMIN/CREAT RATIO RND UR Lab Routine Controlled type 2 diabetes mellitus without complication, without long-term current use of insulin ([facility]) Expected: 07/23/2021, Expires: 09/22/2021 [facility] Work Phone: Comment on above: Expected: 07/23/2021, Expires: 2 Start: 07-23-2021 End: 09-22-2021 CBC panel - Blood by Automated count CBC Lab Routine Primary hypertension Expected: 07/23/2021, Expires: 09/22/2021 [facility] Work Phone: Comment on above: Expected: 07/23/2021, Expires: 2 Start: 07-23-2021 End: 09-22-2021 Comprehensive metabolic 2000 panel - Serum or Plasma COMP METABOLIC PANEL Lab Routine Controlled type 2 diabetes mellitus without complication, without long-term current use of insulin (HCC) Expected: 07/23/2021, Expires: 09/22/2021 [facility] Work Phone: Comment on above: Expected: 07/23/2021, Expires: 2 Start: 07-23-2021 End: 09-22-2021 Hemoglobin A1c/Hemoglobin.total in Blood HGB A1C Lab Routine Controlled type 2 diabetes mellitus without complication, without long-term current use of insulin (HCC) Expected: 07/23/2021, Expires: 09/22/2021 [facility] Work Phone: Comment on above: Expected: 07/23/2021, Expires: 2 Start: 07-23-2021 End: 09-22-2021 LIPID PANEL BASIC LIPID PANEL BASIC Lab Routine Controlled type 2 diabetes mellitus without complication, without long-term current use of insulin (HCC) Expected: 07/23/2021, Expires: 09/22/2021 [facility] Work Phone: Comment on above: Expected: 07/23/2021, Expires: 2 Start: 07-23-2021 End: 09-22-2021 Thyrotropin [Units/volume] in Serum or Plasma TSH BLD Lab Routine Obesity, Class II, BMI 35-39.9 Expected: 07/23/2021, Expires: 09/22/2021 [facility] Work Phone: Comment on above: Expected: 07/23/2021, Expires: 2 Start: 07-08-2021 End: 09-07-2021 Basic metabolic 2000 panel - Serum or Plasma BASIC METABOLIC PNL Lab Routine Controlled type 2 diabetes mellitus without complication, without long-term current use of insulin (HCC) Expected: 07/08/2021, Expires: 09/07/2021 [facility] Work Phone: Comment on above: Expected: 07/08/2021, Expires: 2 Start: 07-08-2021 End: 09-07-2021 Hemoglobin A1c/Hemoglobin.total in Blood HGB A1C Lab Routine Controlled type 2 diabetes mellitus without complication, without long-term current use of insulin (HCC) Expected: 07/08/2021, Expires: 09/07/2021 [facility] Work Phone: Comment on above: Expected: 07/08/2021, Expires: 2 Start: 07-08-2021 End: 09-07-2021 LIPID PANEL BASIC LIPID PANEL BASIC Lab Routine Controlled type 2 diabetes mellitus without complication, without long-term current use of insulin (HCC) Expected: 07/08/2021, Expires: 09/07/2021 [facility] Work Phone: Comment on above: Expected: 07/08/2021, Expires: 2 Start: 07-08-2021 End: 09-07-2021 SCHEDULE LAB TESTING SCHEDULE LAB TESTING Lab Routine Expected: 07/08/2021, Expires: 09/07/2021 [facility] Work Phone: Comment on above: Expected: 07/08/2021, Expires: 2 Start: 03-15-2021 DEPRESSION ASSESSMENT DEPRESSION ASSESSMENT [facility] Start: 2017 Hepatitis B Vaccine (1 of 3 - Risk 3-dose series) Hepatitis B Vaccine (1 of 3 - Risk 3-dose series) [facility] Start: 2017 RSV Vaccine (1 - 1-dose 60+ series) RSV Vaccine (1 - 1-dose 60+ series) [facility] Start: 09-27-2007 SHINGRIX VACCINE (1 of 2) SHINGRIX VACCINE (1 of 2) [facility] Start: 2002 COLOGUARD (FIT-DNA) COLOGUARD (FIT-DNA) [facility] Start: 2002 Colonoscopy COLONOSCOPY [facility] Start: 2002 COLORECTAL CANCER SCREENING COLORECTAL CANCER SCREENING [facility] Start: [address] COLONOGRAPHY [facility] Start: 2002 FECAL OCCULT BLOOD FECAL OCCULT BLOOD [facility] Start: 2002 Screening for malignant neoplasm of colon [facility] Start: 2002 SIGMOIDOSCOPY SIGMOIDOSCOPY [facility] Start: 1997 Mammography [facility] Start: 1997 Screening for malignant neoplasm of breast Mammogram Screening [facility] Start: 09-27-1987 HPV TESTING HPV TESTING [facility] Start: 1978 PAP TESTING PAP TESTING [facility] Start: 1976 Hepatitis A Vaccine (1 of 2 - Risk 2-dose series) Hepatitis A Vaccine (1 of 2 - Risk 2-dose series) [facility] Start: 1976 Urine microalbumin profile [facility] Start: 09-27-1975 Anxiety Screening Anxiety Screening [facility] Start: 09-27-1975 BP CONTROLLED (<130/80) BP CONTROLLED (<130/80) [facility] Start: 09-27-1975 Depression Screening Depression Screening [facility] Start: 09-27-1975 Hepatitis B surface antibody level LDL CHOLESTEROL [facility] Start: 09-27-1975 HEPATITIS C SCREENING HEPATITIS C SCREENING [facility] Start: 09-27-1975 HIV SCREENING HIV SCREENING [facility] Start: 1973 ONE PNEUMOVAX PRIOR TO AGE 65 ONE PNEUMOVAX PRIOR TO AGE 67 [facility] Start: 09-27-1967 3 comp foot exam completed DIABETIC FOOT EXAM [facility] Start: 09-27-1967 Hepatitis B screening URINE ALBUMIN:CREATININE RATIO [facility] Start: 09-27-1967 Hepatitis C antibody, confirmatory test DILATED RETINAL EXAM [facility] Start: 09-27-1963 PNEUMOCOCCAL (1 - PCV) PNEUMOCOCCAL (1 - PCV) [facility] Start: 1962 Hemoglobin A1c/Hemoglobin.total in Blood HBA1C [facility] Alanine aminotransferase [Enzymatic activity/volume] in Serum or Plasma [facility] Albumin [Mass/volume ] in Serum or Plasma [facility] Albumin [Moles/volum e] in Serum or Plasma [facility] Albumin/Globulin ratio [facility] Alkaline phosphatase [Enzymatic activity/volume] in Serum or Plasma [facility] [id number]. chapis or marker [Units/volume] in Serum or Plasma [facility] Anion gap measurement [facility] Aspartate aminotransferase [Enzymatic activity/volume] in Serum or Plasma [facility] Basic metabolic 2007 panel with ionized calcium - Serum or Plasma [facility] Basic metabolic 2008 panel with ionized calcium - Serum or Plasma [facility] [facility] Bilirubin, total measurement [facility] BUN/Creatinine ratio [facility] Calcium [Mass/volume ] in Serum or Plasma [facility] Carbon dioxide, tota l [Moles/volume] in Serum or Plasma [facility] CBC W Auto Different ial panel - Blood [facility] CBC W Ordered Manual Differential panel - Blood PATHOLOGIST INTERPRETATION WITH CBC AND DIFF Lab Routine Thrombocytopenia (HCC) 07/13/2022 12:26 PM EDT [facility] Work Phone: Ceruloplasmin [Mass/volume] in Serum or Plasma [facility] Chloride [Moles/volu me] in Serum or Plasma [facility] COVID & INFLUENZA A/ B & RSV NAAT, ROUTINE COVID & INFLUENZA A/B & RSV NAAT, ROUTINE Microbiology Routine Flu-like symptoms 04/26/2023 5:31 PM EST [facility] Work Phone: Creatinine [Moles/volume] in Serum or Plasma [facility] Diagnostic bone miko ow biopsies IMAGING GUIDED BIOPSY BONE MARROW (HEMATOLOGY) Radiology Routine Thrombocytopenia (HCC) Ordered: 07/29/2022 [facility] Work Phone: Comment on above: Ordered: 07/29/2022 End: 11-19-2023 DXA-AXIAL SKELETON DXA-AXIAL SKELETON Radiology Routine Screening for osteoporosis Asymptomatic menopause 1 Occurrences starting 10/20/2022 until 11/19/2023 [facility] Work Phone: Comment on above: 1 Occurrences starting 10/20/2022 until 11/19/2023 Electrophoresis: [id number] [facility] Electrophoresis: madalyn ma globulin [facility] Erythrocyte mean corpuscular volume determination [facility] Gamma glutamyl transferase measurement [facility] Globulin measurement [facility] Glucose [Mass/volume ] in Serum or Plasma [facility] HEARING TEST/AUDIOGRAM HEARING T EST/AUDIOGRAM Audiology Routine Right-sided tinnitus Ordered: 09/30/2022 [facility] Work Phone: Comment on above: Ordered: 09/30/2022 Hematocrit [Volume Fraction] of Blood [facility] Hemoglobin [Mass/volume] in Blood [facility] Hemoglobin A1c/Hemoglobin.total in Blood [facility] Hepatic function panel [facility] Hepatitis A virus Ab [Presence] in Serum [facility] Hepatitis A virus Ig M Ab [Presence] in Serum [facility] Hepatitis B core antibody measurement, IgM type [facility] Hepatitis B surface antigen measurement [facility] Hepatitis B virus surface Ab [Presence] in Serum [facility] Hepatitis C antibody measurement [facility] IgA [Mass/volume] in Serum or Plasma [facility] IgE [Units/volume] i n Serum or Plasma [facility] IgG [Mass/volume] in Serum or Plasma [facility] IgM [Mass/volume] in Serum or Plasma [facility] Lactic acid [facility] [#/volume ] in Blood [facility] Magnesium [Mass/volu me] in Serum or Plasma [facility] End: 05-08-2023 LULA SCREENING LULA SCREENING Radiology Routine Encounter for screening mammogram for breast cancer 1 Occurrences starting 04/08/2022 until 05/08/2023 [facility] Work Phone: Comment on above: 1 Occurrences starting 04/08/2022 until 05/08/2023 Mean corpuscular hemoglobin concentration determination [facility] Mean corpuscular hemoglobin determination [facility] Measurement of renal function [facility] Neutrophil count [facility] Neutrophil cytoplasm ic Ab.classic [Units/volume] in Serum [facility] Neutrophil percent differential count [facility] Ova and parasites identified in Unspecified specimen by Light microscopy [facility] Ova and parasites identified in Unspecified specimen by Light microscopy [facility] P-ANCA measurement [facility] Patient Education ED Dover's Palsy [facility] Work Phone: Patient referral [facility] Work Phone: Platelets [#/volume] in Blood [facility] Potassium [Moles/volume] in Serum or Plasma [facility] Protein electrophore sis panel - Serum or Plasma [facility] Radionuclide gastric emptying study [facility] Red blood cell count [facility] Red cell distributio n width determination [facility] Serum inorganic phosphate measurement [facility] Smooth muscle Ab [Presence] in Serum [facility] Sodium [Moles/volume ] in Serum or Plasma [facility] Total protein measurement [facility] Urea nitrogen [Mass/volume] in Serum or Plasma [facility] End: 10-06-2023 US ABD RIGHT UPPER QUADRANT US ABD RIGHT UPPER QUADRANT Radiology Routine Thrombocytopenia (HCC) Abnormal liver enzymes 1 Occurrences starting 09/06/2022 until 10/06/2023 [facility] Work Phone: Comment on above: 1 Occurrences starting 09/06/2022 until 10/06/2023 US Abdomen limited [facility] End: 07-28-2024 US Spleen US ABD SPLEEN Radiology Routine Cirrhosis of liver without ascites, unspecified hepatic cirrhosis type (HCC) 1 Occurrences starting 06/29/2023 until 07/28/2024 [facility] Work Phone: Comment on above: 1 Occurrences starting 06/29/2023 until 07/28/2024 [facility] Immunizations Immunization Date Immunization Notes Care Provider [facility] 04-14-2022 pneumococcal (PCV20) vaccine, 20 valent (PREVNAR 20) 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 Ismael Naqvi Work Phone: [facility] 06-30-2021 Covid (Jose Alejandro) Dr. Ismael motta Work Phone: [facility] 01-07-2021 COVID-19 vaccine, ag e 12+ yr ([employer] - PURPLE TOP) Elder Reddy MD Work Phone: [facility] 06-17-2020 COVID-19 vaccine (CYNTHIA) Elder Reddy MD Work Phone: [facility] Payers Date Payer Category Payer Unknown [id number] 2022 Unknown [id number] 2022 Medicare [id number] 2022 Medicare [id number] 2022 Unknown [id number] 2021 Medicaid [id number] 1959 Self-pay 1955 Unknown [id number] 2.16.8 40.1.396043.3.579.2.419 1955 Unknown [id number] 2.16.84 0.1.065133.3.579.2.651 Unknown [id number] Unknown [id number] 2.16.8 40.1.410227.3.579.2.462 Unknown [id number] 2.16.8 40.1.850481.3.579.2.462 Unknown [id number] 2.16.8 40.1.344247.3.579.2.462 Unknown [id number] 2.16.8 40.1.128276.3.579.2.462 Unknown [id number] 2.16.8 40.1.123654.3.579.2.462 Unknown [id number] 2.16.8 40.1.366986.3.579.2.462 Unknown [id number] 2.16.8 40.1.793607.3.579.2.462 Unknown [id number] 2.16.8 40.1.749621.3.579.2.462 Unknown [id number] 2.16.8 40.1.509216.3.579.2.462 Unknown [id number] 2.16.8 40.1.302397.3.579.2.462 Unknown [id number] 2.16.8 40.1.531974.3.579.2.462 Unknown [id number] 2.16.8 40.1.974725.3.579.2.462 Unknown [id number] 2.16.8 40.1.999622.3.579.2.462 Unknown [id number] 2.16.8 40.1.652101.3.579.2.462 Unknown [id number] 2.16.8 40.1.972036.3.579.2.462 Unknown [id number] 2.16.8 40.1.270795.3.579.2.462 Unknown [id number] 2.16.8 40.1.683814.3.579.2.462 Unknown [id number] 2.16.8 40.1.839631.3.579.2.462 Unknown [id number] 2.16.8 40.1.910161.3.579.2.462 Unknown [id number] 2.16.8 40.1.665858.3.579.2.462 Unknown [id number] 2.16.8 40.1.095180.3.579.2.462 Unknown [id number] 2.16.8 40.1.804717.3.579.2.462 Social History Date Type Detail Facility Start: 04-28-2021 End: 08-13-2024 Tobacco smoking status NHIS Never smoked tobacco [facility] Start: 04-28-2021 End: 11-03-2021 Tobacco use and exposure Smokeless tobacco non-user [facility] Start: 04-28-2021 End: 02-23-2023 Alcohol intake Ex-drinker (finding) [facility] Start: 1955 Sex Assigned At Not on file C [facility] Start: 07-13-2021 End: 11-03-2021 Exposure to SARS-CoV-2 (event) Not sure [facility] Work Phone: Start: 09-17-2021 History SDOH Social Connections Phone 5 [facility] Start: 09-17-2021 History SDOH Social Connections [facility] 2 [facility] Start: 09-17-2021 History SDOH Social Connections Meetings 1 [facility] Start: 06-01-2022 End: 07-06-2023 Tobacco smoking status NHIS Unknown if ever smoked [facility] Start: 1955 Sex Assigned At Female W [facility] Start: 06-03-2022 Non-smoker [facility] Start: 09-17-2021 End: 02-08-2023 History of Social function [facility] Start: 09-17-2021 End: 02-08-2023 Social connection and isolation panel [facility] Do you belong to any clubs or organizations such as taoism groups, unions, fraternal or athletic groups, or school groups? No [facility] Marital Status Not on file [place] [employer] (I/We) worried wheth er (my/our) food would run out before (I/we) got money to buy more. Never true [facility] Start: 06-06-2024 End: 07-11-2024 Sex Female (finding) [facility] NEGATED: Highlighted rowStart: NINF History of tobacco use Passive smoker [facility] Medical Equipment Procedure Code Equipment Code Equipment Origin al Text Equipment Identifier Dates Test blood sugar(s) 1 times daily. Dx: Type 2 DM - Controlled E11.9 Insulin: No [id number] Start: 04-14-2022 Comment on above: Test blood sugar(s) 1 times daily. Dx: Type 2 DM - Controlled E11.9 Insulin: No Pen Needle, Diabetic (Pen Needle) 32 gauge x 5/32 needle Start: 06-03-2022 Pen Needle, Diabetic (Pen Needle) 32 gauge x 5/32 needle Start: 06-03-2022 Pen Needle, Diabetic (Pen Needle) 32 gauge x 5/32 needle Start: 06-03-2022 End: 07-06-2023 Pen Needle, Diabetic (Pen Needle) 32 gauge x 5/32 needle Start: 06-03-2022 End: 07-06-2023 Pen Needle, Diabetic (Pen Needle) 32 gauge x 5/32 needle Start: 06-03-2022 End: 07-06-2023 Pen Needle, Diabetic (Pen Needle) 32 gauge x 5/32 needle Start: 06-03-2022 End: 07-06-2023 Pen Needle, Diabetic (Pen Needle) 32 gauge x 5/32 needle Start: 06-03-2022 End: 07-06-2023 Pen Needle, Diabetic (Pen Needle) 32 gauge x 5/32 needle Start: 06-03-2022 End: 07-06-2023 Pen Needle, Diabetic (Pen Needle) 32 gauge x 5/32 needle Start: 06-03-2022 End: 07-06-2023 Pen Needle, Diabetic (Pen Needle) 32 gauge x 5/32 needle Start: 06-03-2022 End: 07-06-2023 Pen Needle, Diabetic (Pen Needle) 32 gauge x 5/32 needle Start: 06-03-2022 End: 07-06-2023 Pen Needle, Diabetic (Pen Needle) 32 gauge x 5/32 needle Start: 06-03-2022 End: 07-06-2023 Goals Date Patient Goal Desired Activity /State Functional Status Date Assessment Result Facility 07-09-2023 Functional status Ambulates [facility] Work Phone: 07-08-2023 Functional status None [facility] Work Phone: 06-03-2022 Functional status Ambulates [facility] Work Phone: Mental Status Date Assessment Result Facility 07-09-2023 Cognitive function Voice/Name [facility] Work Phone: 06-03-2022 Cognitive function Voice/Name [facility] Work Phone: 06-01-2022 Cognitive function Voice/Name [facility] Work Phone: Clinical Notes 04-28-2021 to 08-01-2024 Note Date & Type Note Facility 08-01-2024 Nuclear medicine Diagnostic study note [facility] Imaging Services [address] [place] [address] Gastric Emptying Study - 4 HR MR#: [id number] Acct: [id number] Name: MACY MORALES Rep #: [id number] : 1955 F 68 From: Duane Dc MD PCP: Dr. Angelita Call MD Status: REG CLI Study:Gastric Emptying Study - 4 HR Date of E xam: 08/01/24 Exam# [id number] Ordering Dr: Jessica Worthington PROCEDURE: GASTRIC EMPTYING STUDY - 4 HR 08/01/2024 REASON FOR EXAM: EARLY SATIETY COMPARISON: None TECHNIQUE: The patient ingested a standard meal of oatmeal, 2 eggs bread and butter and water. There was no vomiting postprandially. Anterior and posterior planar images of the upper abdomen were obtained for 1 minute immediately following the meal at 1h, 2h and 4h if more than 10% of the activity persisted within the stomach. Regions of interest were drawn, and a geometric mean was used to calculate a [id number]-jaoij. RADIOPHARMACEUTICAL: Technetium sulfur colloid DOSE 1.1mCi FINDINGS: Percent activity remaining in stomach: 1 hour 68 % (normal 37-90%) 2 hours: 39 % (normal 30-60%) 4 hours: 5 % (normal 0-10%) NM/Gastric Emptying Study - 4 HR IMPRESSION: Normal gastric emptying study. Reading Location: [facility]- CC: SENIOR BIOINFORMATICS SCIENTISTJordi Worthington; Dr. Angelita Call MD ~ Equipment Superintendent: Signed [facility] 07-06-2024 Radiology Diagnostic study note [facility] Imaging Services [address] [place] [address] Abdomen Limited MR#: [id number] Acct: [id number] Name: MACY MORALES Rep #: [id number] : 1955 F 68 From: Duane cD MD PCP: Dr. Angelita Call MD Status: REG CLI Study:Abdomen Limited Date of Exam: 06/14 07/07 Exam# [id number] Ordering Dr: Jessica Worthington PROCEDURE: ABDOMEN LIMITED 07/06/2024 REASON FOR EXAM: CIRRHOSIS, ABDOMINAL DISTENSION ADD SPLEEN PLEASE COMPARISON: Prior study dated June 07, 2024. FINDINGS: Liver: Coarsened hepatic echotexture with a nodular liver contour suggestive of cirrhosis. Gallbladder: No stones sludge wall thickening or tenderness. Common bile duct: Normal measuring it measures 2 mm.. Pancreas: Normal Other: Visualized portions of the right kidney are unremarkable. No right upperquadrant ascites. The spleen measures 12.9 cm 6.1 cm 4.6 cm. Small amount of right upper quadrant ascites. Trace amount of fluid in the leftupper quadrant. US/Abdomen Limited IMPRESSION: Heterogeneous/fatty infiltration of the liver. Findings suggestive of cirrhosis. Small amount of ascitic fluid is seen in the right upper quadrant and left upperquadrant. Reading Location: [facility] CC: JENNIFER Worthington; Dr. Angelita Call MD ~ Equipment Superintendent: Signed [facility] 07-04-2024 Radiology Diagnostic study note [facility] Imaging Services [address] [place] [address] Abdomen Single View MR#: [id number] Acct: [id number] Name: MACY MORALES Rep #: [id number] : 1955 F 68 From: Amadeo Romero DO PCP: Dr. Angelita Call MD Status: REG CLI Study:Abdomen Single View Date of Exam: 07/04/24 Exam# [id number] Ordering Dr: Jessica Worthington PROCEDURE: ABDOMEN SINGLE VIEW 07/04/2024 REASON FOR EXAM: CONSTIPATION, ABDOMINAL DISTENSION TECHNIQUE: Single view abdomen. Three views of the abdomen were obtained in order to include the entire abdomen on the study. COMPARISON: CT abdomen and pelvis dated 07/06/2023 and abdominal ultrasound study dated 06/08/2024. Acute abdominal series dated 07/06/2023 FINDINGS: Bowel gas: A moderate to large amount of stool and gas is present throughout a nondistended colon. No free air seen. Psoas muscles and renal outlines are partially obscured by overlying bowel gas and fecal material within the colon. No gross organomegaly is seen. Degenerative changes of the lumbar spine are noted. Very mild degenerative changes of the left hip are noted. Bony pelvis appears unremarkable without evidence of fracture or dislocation. SI joints, right hip joint and pubic symphysis are unremarkable. RAD/Abdomen Single View IMPRESSION: The patient appears to be mildly constipated otherwise unremarkable abdominal study. If the patient's symptoms continue or worsen, follow-up imaging is recommended. Reading Location: [facility] CC: JENNIFER Worthington; Dr. Angelita Call MD ~ Equipment Superintendent: Signed [facility] 06-08-2024 Radiology Diagnostic study note [facility] Imaging Services [address] [place] [address] Abdomen Limited MR#: [id number] Acct: [id number] Name: MACY MORALES Rep #: [id number] : 1955 F 68 From: Teddy Rice MD PCP: Dr. Angelita Call MD Status: REG CLI Study:Abdomen Limited Date of Exam: 05/14 09/06 Exam# [id number] Ordering Dr: Yasmeen Marie DO EXAM: Ultrasound abdomen limited CLINICAL HISTORY: Cirrhosis COMPARISON: 12/09/2023 TECHNIQUE: Ultrasound abdomen limited FINDINGS: Study is limited by bowel gas and body habitus. Pancreas is obscured by bowel gas. The liver measures 10.6 cm with a diffusely nodular appearance to the liver surface contour and coarse echogenicity consistent with cirrhosis. Flow within the portal vein appears hepatopetal as expected. No gallstones or pericholecystic free fluid. Report of a negative sonographic Santos's sign. The gallbladder wall currently measures 11 mm, previously 8 mm. This is nonspecific in the setting of liver disease. CBD is not visualized. The right kidney measures 10 x 6.4 x 4.6 cm with a cortical thickness of 1.3 cm. No hydronephrosis or perinephric edema seen. Small amount of free fluid is seen in the right upper quadrant, right lower quadrant and left lower quadrant. US/Abdomen Limited IMPRESSION: Study is limited by bowel gas and body habitus. Liver again appears cirrhotic as above. Small amount of free fluid/ascites is seen in the right upper quadrant, right lower quadrant and left lower quadrant. The gallbladder wall is again thickened currently measures 11 mm, previously 8 mm. This is nonspecific in the setting of liver disease. CBD is not visualized. Pancreas is obscured by bowel gas. Reading Location: [id number] CC: Dr. Angelita Call MD; Santino Friend, DO ~ Equipment Superintendent: Signed [facility] 05-29-2024 Evaluation note Diagnosis Onset Date Resolution Cirrhosis acute May 29 10:02am Fatty liver disease, nonalcoholic acute May 29, 2024 10:02am Thrombocytopenia acute May 292024 10:02am [facility] Work Phone: 1(358) 483-830203-17-2025 Evaluation note* Diagnosis Onset Date Resolution Status Admit Date Cirrhosis acute May 29 10:02am Fatty liver disease, nonalcoholic ac la posta May 29, 2024 10:02am Thrombocytopenia acute May 292024 10:02am Abdominal distension acute Apri l 2024 10:53am Abdominal pain acute June 10:53am Cirrhosis acute July 04 10:53am [facility] Work Phone: 1(125) 467-382703-17-2025 Evaluation note* Diagnosis Onset Date Resolution Status Admit Date Cirrhosis acute May 29 10:02am Fatty liver disease, nonalcoholic ac la posta May 29, 2024 10:02am Thrombocytopenia acute May 292024 10:02am Abdominal distension acute Apri l 2024 10:53am Abdominal pain acute June 10:53am Cirrhosis acute July 04 10:53am Cirrhosis acute August 10, 2024 8:59am Pancytopenia acute August 10 8:59am Screening for colon cancer acute August 10, 2024 8:59am [facility] Work Phone: 1(607) 291-675306-26-2024 History of Present illness Narrative* Mina Lopez, RT(R) - 09/08/2023 12:20 PM EDT Radiology Service Progress Note PATIENT NAME: Macy Morales DATE OF SERVICE: September 08, 2023 TIME: 12:16 PM PATIENT IDENTITY VERIFICATION COMPLETED USING TWO (2) IDENTIFIERS: Name and Date of confirmedby patient verbally. FALL SCREENING: Has the patient had 2 falls in the last year or 1 fall with injury or currently using an Ambulatory Assistive Device (Walker, Cane, Wheelchair, Crutches, etc.)? No PATIENT GENDER DATA: Female. status: : No status: NO. PATIENT RELEVANT IMPLANT DATA REVIEWED: Yes PATIENT PRESENTS WITH AN IMPLANTABLE OR ATTACHED FIRE ASSISTANT: No RADIOLOGY DEPARTMENT: General X-ray: Exam(s) Completed: Upper Extremity X- Ray(s): Wrist, right and Hand, right PERIPHERAL IV DATA: Not applicable SIGNED BY: RT Sofía(R) September 08, 2023 12:16 PM [facility] NoteHNO ID: [id number] Author: MINA LOPEZ RT(R) Service: ? Author Type: Apron Trimmer Type: Progress Notes Filed: 09/08/2023 12:26 Note Text: Radiology Service Progress Note PATIENT NAME: Macy Morales DATE OF SERVICE: September 08, 2023 TIME: 12:16 PM PATIENT IDENTITY VERIFICATION COMPLETED USING TWO (2) IDENTIFIERS: Name and Date of confirmed by patient verbally. FALL SCREENING: Has the patient had 2 falls in the last year or 1 fall with injury or currently using an Ambulatory Assistive Device (Walker, Cane, Wheelchair, Crutches, etc.)? No PATIENT GENDER DATA: Female. status: : No status: NO. PATIENT RELEVANT IMPLANT DATA REVIEWED: Yes PATIENT PRESENTS WITH AN IMPLANTABLE OR ATTACHED FIRE ASSISTANT: No RADIOLOGY DEPARTMENT: General X-ray: Exam(s) Completed: Upper Extremity X-Ray(s): Wrist, right and Hand, right PERIPHERAL IV DATA: Not applicable SIGNED BY: RT Sofía(Yasmeen) September 08, 2023 12:16 [facility]06-26-2024 NoteHNO ID: [id number] Author: BRUCE YU APRN.[employer] Service: ? Author Type: Nurse Practitioner Type: Progress Notes Filed: 09/08/2023 13:30 Note Text: Subjective HPI Nontoxic-appearing female presents urgent care chief complaint right hand or wrist injury. Duration of symptoms 2 days. Associated symptoms right wrist and hand pain. Patient states fell 2 days ago and landed on outstretched wrist. Presents today for evaluation. No numbness no tingling. No decrease sensation. Decreased range of motion due to tenderness. Does have swelling and bruising. Oyrux-lgff-aburwnlj. No fractures or surgeries in the past. Denies any other injuries. No head neck or back pain. 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 MEDICATIONS - amLODIPine (NORVASC) 5 mg tablet Take 5 mg by mouth once daily. - metoclopramide HCl (REGLAN) 5 mg tablet Take 5 mg by mouth three times a day. - albuterol HFA (PROVENTIL HFA, VENTOLIN HFA) 90 mcg/actuation inhaler Inhale 2 Puffs as instructed every 4 hours as needed for wheezing/shortness of breath. - albuterol (PROVENTIL) 2.5 mg /3 mL (0.083 %) nebulizer solution Use 3 mL via nebulizer every 4 hours as needed for wheezing/shortness of breath. Use over 5-15minutes. - atorvastatin (LIPITOR) 20 mg tablet Take 1 tablet by mouth daily at bedtime. For cholesterol. - pantoprazole DR (PROTONIX) 40 mg tablet Take 1 tablet by mouth once daily as needed. - alendronate (FOSAMAX) 70 mg tablet Take 1 tablet by mouth one time a week. Take with a full glass of water, on an empty stomach; do NOT lie down for 30minutes. - blood sugar diagnostic (TRUE METRIX GLUCOSE TEST STRIP) test strip Test blood sugar(s) 1 times daily. Dx: Type 2 DM - Controlled E11.9 Insulin: No - clotrimazole-betamethasone (LOTRISONE) cream Apply to affected area twice daily as needed. FAMILY HISTORY Problem Relation Age of Onset - No Known Problems Father - Aneurysm Mother - Cancer Brother - No Known Problems Maternal Grandmother - No Known Problems Maternal Grandfather - No Known Problems Paternal Grandmother - No Known Problems Paternal Grandfather - No Known Problems Child - No Known Problems Child - No Known Problems Child - Glaucoma No Family History - Macular Degen No Family History Social History Tobacco Use - Smoking status: Never Passive exposure: Never - Smokeless tobacco: Never Vaping Use - Vaping Use: Never used Substance Use Topics - Alcohol use: Not Currently - Drug use: Not Currently BP 146/92 Pulse 78 Temp 37.1 ?C (98.7 ?F) Resp 16 Wt 85.1 kg (187 lb 9.8 oz) SpO2 98% BMI 36.64 kg/m? Review of Systems Constitutional: Negative for chills, fever and malaise/fatigue. HENT: Negative for congestion, ear discharge, ear pain, sinus pain and sore throat. Eyes: Negative for blurred vision, pain, discharge and redness. Respiratory: Negative for cough, hemoptysis, sputum production, shortness of breath, wheezing and stridor. Cardiovascular: Negative for chest pain. Gastrointestinal: Negative for abdominal pain, diarrhea, nausea and vomiting. Musculoskeletal: Positive for falls and joint pain. Negative for back pain, myalgias and neck pain. Skin: Negative for itching and rash. Neurological: Negative for dizziness and headaches. Objective Physical Exam Constitutional: General: She is not in acute distress. Appearance: She is not toxic-appearing. HENT: Head: Normocephalic. Nose: Nose normal. Eyes: Pupils: Pupils are equal, round, and reactive to light. Cardiovascular: Rate and Rhythm: Normal rate. Pulmonary: Effort: Pulmonary effort is normal. No respiratory distress. Musculoskeletal: Right upper arm: Normal. Right elbow: No swelling. Normal range of motion. No tenderness. Right forearm: No tenderness or bony tenderness. Right wrist: Swelling, deformity, tenderness, bony tenderness and snuff box tenderness present. Decreased range of motion. Normal pulse. Right hand: Swelling, tenderness and bony tenderness present. Normal range of motion. Normal strength. Normal sensation. Normal capillary refill. Normal pulse. Cervical back: Normal range of motion. Comments: Neurovascular intact. No breaks in skin. Ecchymosis noted. Skin: General: Skin is warm and dry. Neurological: General: No focal deficit present. Mental Status: She is alert. ASSESSMENT/PLAN: (more content not included)...[facility]06-26-2024 History of Present illness Narrative* Bruce Yu APRN.[employer] BUTTON PASTER - 09/08/2023 12:07 PM EDT Subjective HPI Nontoxic-appearing female presents urgent care chief complaint right hand or wrist injury. Durationof symptoms 2 days. Associated symptoms right wrist and hand pain. Patient states fell 2 days ago and landed on outstretched wrist. Presents today for evaluation. No numbness no tingling. No decreasesensation. Decreased range of motion due to tenderness. Does have swelling and bruising. [id number]. No fractures or surgeries in the past. Denies any other injuries. No head neck or back pain. 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 MEDICATIONS amLODIPine (NORVASC) 5 mg tablet Take 5 mg by mouth once daily. metoclopramide HCl (REGLAN) 5 mg tablet Take 5 mg by mouth three times a day. albuterol HFA (PROVENTIL HFA, VENTOLIN HFA) 90 mcg/actuation inhaler Inhale 2 Puffs as instructed every 4 hours as needed for wheezing/shortness of breath. albuterol (PROVENTIL) 2.5 mg /3 mL (0.083 %) nebulizer solution Use 3 mL via nebulizer every 4 hours as needed for wheezing/shortness of breath. Use over 5-15minutes. atorvastatin (LIPITOR) 20 mg tablet Take 1 tablet by mouth daily at bedtime. For cholesterol. pantoprazole DR (PROTONIX) 40 mg tablet Take 1 tablet by mouth once daily as needed. alendronate (FOSAMAX) 70 mg tablet Take 1 tablet by mouth one time a week. Take with a full glass of water, on an empty stomach; do NOT lie down for 30minutes. blood sugar diagnostic (TRUE METRIX GLUCOSE TEST STRIP) test strip Test blood sugar(s) 1 times daily. Dx: Type 2 DM - Controlled E11.9 Insulin: No clotrimazole-betamethasone (LOTRISONE) cream Apply to affected area twice daily as needed. FAMILY HISTORY Problem Relation Age of Onset No Known Problems Father Aneurysm Mother Cancer Brother No Known Problems Maternal Grandmother No Known Problems Maternal Grandfather No Known Problems Paternal Grandmother No Known Problems Paternal Grandfather No Known Problems Child No Known Problems Child No Known Problems Child Glaucoma No Family History Macular Degen No Family History Social History Tobacco Use Smoking status: Never Passive exposure: Never Smokeless tobacco: Never Vaping Use Vaping Use: Never used Substance Use Topics Alcohol use: Not Currently Drug use: Not Currently BP 146/92 Pulse 78 Temp 37.1 C (98.7 F) Resp 16 Wt 85.1 kg (187 lb 9.8 oz) SpO2 98% BMI36.64 kg/m Review of Systems Constitutional: Negative for chills, fever and malaise/fatigue. HENT: Negative for congestion, ear discharge, ear pain, sinus pain and sore throat. Eyes: Negative for blurred vision, pain, discharge and redness. Respiratory: Negative for cough, hemoptysis, sputum production, shortness of breath, wheezing and stridor. Cardiovascular: Negative for chest pain. Gastrointestinal: Negative for abdominal pain, diarrhea, nausea and vomiting. Musculoskeletal: Positive for falls and joint pain. Negative for back pain, myalgias and neck pain. Skin: Negative for itching and rash. Neurological: Negative for dizziness and headaches. Objective Physical Exam Constitutional: General: She is not in acute distress. Appearance: She is not toxic-appearing. HENT: Head: Normocephalic. Nose: Nose normal. Eyes: Pupils: Pupils are equal, round, and reactive to light. Cardiovascular: Rate and Rhythm: Normal rate. Pulmonary: Effort: Pulmonary effort is normal. No respiratory distress. Musculoskeletal: Right upper arm: Normal. Right elbow: No swelling. Normal range of motion. No tenderness. Right forearm: No tenderness or bony tenderness. Right wrist: Swelling, deformity, tenderness, bony tenderness and snuff box tenderness present. Decreased range of motion. Normal pulse. Right hand: Swelling, tenderness and bony tenderness present. Normal range of motion. Normal strength. Normal sensation. Normal capillary refill. Normal pulse. Cervical back: Normal range of motion. Comments: Neurovascular intact. No breaks in skin. Ecchymosis noted. Skin: General: Skin is warm and dry. Neurological: General: No focal deficit present. Mental Status: She is alert. ASSESSMENT/PLAN: 1. Injury of right wrist, initial encounter - ICD9: 959.3, ICD10: S69.91XA (primary diagnosis) - XR HAND GENERAL 3V PA/LAT/OBL RIGHT - XR WRIST INJURY 4V PA/LAT/OBL/SCAPH RIGHT 2. Pain of right hand - ICD9: 729.5, ICD10: M79.641 - XR HAND GENERAL 3V PA/LAT/OBL RIGHT - XR WRIST INJURY 4V PA/LAT/OBL/SCAPH RIGHT Hand: No fractures or dislocations are seen. Wrist: No fractures or dislocations are seen. IMPRESSION IMPRESSION: No acute pathology. No acute findings noted on x-ray. Thumb spica offered patient states will pick 1 up at the pharmacy. Patient was educated on supportive therapies. Patient will follow up with primary care provider as needed. Patient was instructed to immediately proceed to emergency room for any new, worsening, or symptoms lasting longer than anticipated. The patient's clinical presentation is otherwise unremarkable at this time. Based on exam and clinical finding, the patient is stable for discharge. Plan of care was discussed with patient. Patient verbalizes understanding and agrees to plan of care. This note was generated using [employer] Aud[employer] software. It may contain errors in wording, punctuation, or spelling. Bruce Yu APRN.DONNY [facility] Tele[facility] encounter Note * Telephone Encounter - Varghese Mcmahan MA - 08/10/2023 11:42 AM EDT Patient failed to cancel today's appointment with PCP and no showed. Letter printed and mailed. Varghese Mcmahan MA [facility]05-28-2024 Miscellaneous Notes* Telephone Encounter - Varghese Mcmahan MA - 08/10/2023 11:42 AM EDT Patient failed to cancel today's appointment with PCP and no showed. Letter printed and mailed. Varghese Mcmahan MA documented [facility]24 Miscellaneous Notes* Telephone Encounter - Som Valadez RN - 07/16/2023 1:37 PM EDT Called and spoke with pt who speaks Marshallese. Went over results and Ana's information and instructions. Pt appeared to understand. She states the hospital gave her a lot, a lot of IV fluids. Pt willcall back if swelling does not improve. * Telephone Encounter - Som Valadez RN - 07/16/2023 1:36 PM EDT ----- Message from Ana Browning APRN.[employer]TON PASTER sent at 07/16/2023 12:34 PM EDT ----- Please let the patient know her chest x-ray was normal. Kidney function on labs is still decreased but improving. BNP slightly elevated indicating fluid overload secondary to IV fluids given during admission which is the most likely cause of the swelling and shortness of breath. Follow-up if swelling does not continue to improve or sooner if any worsening. Ana Browning APRN.ACETONE BUTTON PASTER documented in this [facility]05-[facility]24 Telephone encounter Note * Telephone Encounter - Som Valadez RN - 07/16/2023 1:37 PM EDT Called and spoke with pt who speaks Marshallese. Went over results and Ana's information and instructions. Pt appeared to understand. She states the hospital gave her a lot, a lot of IV fluids. Pt willcall back if swelling does not improve. [facility]05-03-2024 Telephone encounter Note* Telephone Encounter - Som Valadez RN - 07/16/2023 1:36 PM EDT ----- Message from Ana Browning APRN.ACETONE BUTTON PASTER sent at 07/16/2023 12:34 PM EDT ----- Please let the patient know her chest x-ray was normal. Kidney function on labs is still decreased but improving. BNP slightly elevated indicating fluid overload secondary to IV fluids given during admission which is the most likely cause of the swelling and shortness of breath. Follow-up if swelling does not continue to improve or sooner if any worsening. Ana Browning APRN.AC[employer] BUTTON PASTER [facility]04-30-2024 History of Present illness Narrative* Giancarlo Red RT(R) - 07/13/2023 11:20 AM EDT Radiology Service Progress Note PATIENT NAME: Macy Morales DATE OF SERVICE: July 13, 2023 TIME: 11:16 AM PATIENT IDENTITY VERIFICATION COMPLETED USING TWO (2) IDENTIFIERS: Name and Date of confirmedby patient verbally. FALL SCREENING: Has the patient had 2 falls in the last year or 1 fall with injury or currently using an Ambulatory Assistive Device (Walker, Cane, Wheelchair, Crutches, etc.)? No PATIENT GENDER DATA: Male PATIENT RELEVANT IMPLANT DATA REVIEWED: Not Applicable PATIENT PRESENTS WITH AN IMPLANTABLE OR ATTACHED FIRE ASSISTANT: No RADIOLOGY DEPARTMENT: General X-ray: Exam(s) Completed: Chest X-Ray PERIPHERAL IV DATA: Not applicable SIGNED BY: RT Maddie(R) July 13, 2023 11:16 AM documented in this encounterM[facility]it[facility]04-30-2024 NoteHNO ID: [id number] Author: GIANCARLO RED RT(Yasmeen) Service: Radiology Author Type: Technologist Type: Progress Notes Filed: 07/13/2023 11:27 Note Text: Radiology Service Progress Note PATIENT NAME: Macy Morales DATE OF SERVICE: July 13, 2023 TIME: 11:16 AM PATIENT IDENTITY VERIFICATION COMPLETED USING TWO (2) IDENTIFIERS: Name and Date of confirmed by patient verbally. FALL SCREENING: Has the patient had 2 falls in the last year or 1 fall with injury or currently using an Ambulatory Assistive Device (Walker, Cane, Wheelchair, Crutches, etc.)? No PATIENT GENDER DATA: Male PATIENT RELEVANT IMPLANT DATA REVIEWED: Not Applicable PATIENT PRESENTS WITH AN IMPLANTABLE OR ATTACHED FIRE ASSISTANT: No RADIOLOGY DEPARTMENT: General X-ray: Exam(s) Completed: Chest X-Ray PERIPHERAL IV DATA: Not applicable SIGNED BY: RT Maddie(R) July 13, 2023 11:16 [facility]04-30-2024 NoteHNO ID: [id number] Author: ANA BROWNING APRN.ACETONE BUTTON PASTER Service: ? Author Type: Nurse Practitioner Type: Progress Notes Filed: 07/13/2023 11:38 Note Text: CC: Patient presents with: Hospital F/U [facility] Macy Morales is a 67 year old female who presents today with her daughter for above. Patient speaks some Marshallese, daughter is helping with any necessary translations. They declined historical interpreter phone. Patient was admitted to [facility] from 07/05 to 07/08 for VIKA. She presented with vomiting and hematemesis. Creatinine above 2 in ER and nephrology was consulted. Creatinine up to 2.91 on 07/06 despite IV hydration. Potassium was elevated, down to 4.7 after Kaexylate. Work-up with urine testing and ultrasound of the kidneys was normal. Lisinopril, glipizide and Metformin were discontinued. At discharge creatinine was 2.37 and potassium 4.3. GI was also consulted during admission for hematemesis and chronic diarrhea. CT indicated liver cirrhosis, Carvedilol was discontinued. EGD showed grade 1 varices lower third of esophagus and portal hypertensive gastropathy. Discharged home with Xifaxan, Norvasc 5 mg, Reglan and Protonix. Instructed to follow-up with nephrology and GI. Today patient reports generalized swelling including face, hands, abdomen and legs since discharge home. Swelling has improved slightly over the past few days. Associated with SOB with exertion, orthopnea, dry cough and wheezing. Legs feel heavy but no pain. Denies chest pain, palpitations, PND, and hemoptysis. She has no history of asthma or CHF. Still fatigued and appetite is decreased, mainly because of abdominal bloating causing her to feel full. She denies abdominal pain, nausea, or vomiting. Diarrhea is a little better. She is scheduled with GI Dr. Marie but not until August, her other daughter works for him and they are planning on getting her in sooner. She was being evaluated for cirrhosis with [facility] however it is more convenient to stay local instead of going to [facility]. They have not scheduled an appointment yet with nephrology. All of her diabetes medications were discontinued during admission. She has been checking her blood sugars every morning since discharge, average in the 90's. She does not check her BP at home. Review of Systems Constitutional: Positive for activity change, appetite change and fatigue. Negative for chills, diaphoresis and fever. HENT: Negative for trouble swallowing. Gastrointestinal: Negative for blood in stool and constipation. Genitourinary: Negative for decreased urine volume and difficulty urinating. Neurological: Negative for dizziness, syncope, weakness and light-headedness. 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 MEDICATIONS amLODIPine (NORVASC) 5 mg tablet Take 5 mg by mouth once daily. metoclopramide HCl (REGLAN) 5 mg tablet Take 5 mg by mouth three times a day. carvedilol (COREG) 6.25 mg tablet Take 1 tablet by mouth two times a day with meals. albuterol HFA (PROVENTIL HFA, VENTOLIN HFA) 90 mcg/actuation inhaler Inhale 2 Puffs as instructed every 4 hours as needed for wheezing/shortness of breath. albuterol (PROVENTIL) 2.5 mg /3 mL (0.083 %) nebulizer solution Use 3 mL via nebulizer every 4 hours as needed for wheezing/shortness of breath. Use over 5-15minutes. atorvastatin (LIPITOR) 20 mg tablet Take 1 tablet by mouth daily at bedtime. For cholesterol. metFORMIN ER (GLUCOPHAGE XR) 500 mg 24 hr tablet Take 2 tablets by mouth two times a day with meals. glipiZIDE (GLUCOTROL XL) 2.5 mg 24 hr tablet Take 1 tablet by mouth once daily. (Patient not taking: Reported on 07/13/2023) pantoprazole DR (PROTONIX) 40 mg tablet Take 1 tablet by mouth once daily as needed. lisinopril (ZESTRIL) 20 mg tablet Take 1 tablet by mouth once daily. (Patient not taking: Reported on 07/13/2023) alendronate (FOSAMAX) 70 mg tablet Take 1 tablet by mouth one time a week. Take with a full glass of water, on an empty stomach; do NOT lie down for 30minutes. blood sugar diagnostic (TRUE METRIX GLUCOSE TEST STRIP) test strip Test blood sugar(s) 1 times daily. Dx: Type 2 DM - Controlled E11.9 Insulin: No clotrimazole-betamethasone (LOTRISONE) cream Apply to affected area twice daily as needed. FAMILY HISTORY Problem Relation Age of Onset No Known Problems Father Aneurysm Mother Cancer Brother No Known Problems Maternal Grandmother No Known Problems Maternal Grandfather No Known Problems Paternal Grandmother No Known P (more content not included)...[facility]04-30-2024 History of Present illness Narrative* Ana Browning, NAIL SPECIALIST.ACETONE BUTTON PASTER - 07/13/2023 10:33 AM EDT CC: Patient presents with: Hospital F/U [facility] Macy Morales is a 67 year old female who presents today with her daughter for above. Patient speaks some Marshallese, daughter is helping with any necessary translations. They declined historical interpreter phone. Patient was admitted to [facility] from 07/05 to 07/08 for VIKA. She presented with vomiting and hematemesis. Creatinine above 2 in ER and nephrology was consulted. Creatinine up to 2.91 on 07/06 despite IV hydration. Potassium was elevated, down to 4.7 after Kaexylate. Work- up with urine testing and ultrasound of the kidneys was normal. Lisinopril, glipizide and Metformin were discontinued. At discharge creatinine was 2.37 and potassium 4.3. 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 CT indicated liver cirrhosis, Carvedilol was discontinued. EGD showed grade 1 variceslower third of esophagus and portal hypertensive gastropathy. Discharged home with Xifaxan, Norvasc5 mg, Reglan and Protonix. Instructed to follow-up with nephrology and GI. Today patient reports generalized swelling including face, hands, abdomen and legs since discharge home. Swelling has improved slightly over the past few days. Associated with SOB with exertion, orthopnea, dry cough and wheezing. Legs feel heavy but no pain. Denies chest pain, palpitations, PND, and hemoptysis. She has no history of asthma or CHF. Still fatigued and appetite is decreased, mainly because of abdominal bloating causing her to feel full. She denies abdominal pain, nausea, or vomiting. Diarrhea is a little better. She is scheduled with [facility] but not until August, her other daughter works for him and they are planning on getting her in sooner. She was being evaluated for cirrhosis with [facility] however it is more convenient to stay local instead of going [facility].They have not scheduled an appointment yet with nephrology. All of her diabetes medications were discontinued during admission. She has been checking her blood sugars every morning since discharge, average in the 90's. She does not check her BP at home. Review of Systems Constitutional: Positive for activity change, appetite change and fatigue. Negative for chills, diaphoresis and fever. HENT: Negative for trouble swallowing. Gastrointestinal: Negative for blood in stool and constipation. Genitourinary: Negative for decreased urine volume and difficulty urinating. Neurological: Negative for dizziness, syncope, weakness and light-headedness. 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 MEDICATIONS amLODIPine (NORVASC) 5 mg tablet Take 5 mg by mouth once daily. metoclopramide HCl (REGLAN) 5 mg tablet Take 5 mg by mouth three times a day. carvedilol (COREG) 6.25 mg tablet Take 1 tablet by mouth two times a day with meals. albuterol HFA (PROVENTIL HFA, VENTOLIN HFA) 90 mcg/actuation inhaler Inhale 2 Puffs as instructed every 4 hours as needed for wheezing/shortness of breath. albuterol (PROVENTIL) 2.5 mg /3 mL (0.083 %) nebulizer solution Use 3 mL via nebulizer every 4 hours as needed for wheezing/shortness of breath. Use over 5-15minutes. atorvastatin (LIPITOR) 20 mg tablet Take 1 tablet by mouth daily at bedtime. For cholesterol. metFORMIN ER (GLUCOPHAGE XR) 500 mg 24 hr tablet Take 2 tablets by mouth two times a day with meals. glipiZIDE (GLUCOTROL XL) 2.5 mg 24 hr tablet Take 1 tablet by mouth once daily. (Patient not taking: Reported on 07/13/2023) pantoprazole DR (PROTONIX) 40 mg tablet Take 1 tablet by mouth once daily as needed. lisinopril (ZESTRIL) 20 mg tablet Take 1 tablet by mouth once daily. (Patient not taking: Reported on 07/13/2023) alendronate (FOSAMAX) 70 mg tablet Take 1 tablet by mouth one time a week. Take with a full glass of water, on an empty stomach; do NOT lie down for 30minutes. blood sugar diagnostic (TRUE METRIX GLUCOSE TEST STRIP) test strip Test blood sugar(s) 1 times daily. Dx: Type 2 DM - Controlled E11.9 Insulin: No clotrimazole-betamethasone (LOTRISONE) cream Apply to affected area twice daily as needed. FAMILY HISTORY Problem Relation Age of Onset No Known Problems Father Aneurysm Mother Cancer Brother No Known Problems Maternal Grandmother No Known Problems Maternal Grandfather No Known Problems Paternal Grandmother No Known Problems Paternal Grandfather No Known Problems Child No Known Problems Child No Known Problems Child Glaucoma No Family History Macular Degen No Family History Social History Tobacco Use Smoking status: Never Passive exposure: Never Smokeless tobacco: Never Vaping Use Vaping Use: Never used Substance Use Topics Alcohol use: Not Currently Drug use: Not Currently BP 148/76 Pulse 84 Resp 16 Wt 89.8 kg (198 lb) SpO2 98% BMI 38.67 kg/m Physical Exam Vitals reviewed. Constitutional: General: She is not in acute distress. Appearance: She is not ill-appearing or toxic-appearing. HENT: Mouth/Throat: Mouth: Mucous membranes are moist. Eyes: Conjunctiva/sclera: Conjunctivae normal. Cardiovascular: Rate and Rhythm: Normal rate and regular rhythm. Pulses: Normal pulses. Heart sounds: Murmur (2/6) heard. Comments: 1-2 + generalized edema. BLE without skin discoloration, increased warmth or tenderness. Pulmonary: Effort: Pulmonary effort is normal. Breath sounds: Normal breath sounds. No wheezing, rhonchi or rales. Abdominal: General: Bowel sounds are normal. There is distension. Palpations: Abdomen is soft. Tenderness: There is no abdominal tenderness. Skin: General: Skin is warm and dry. Neurological: Mental Status: She is alert. Psychiatric: Mood and Affect: Mood and affect normal. DATA REVIEWED: Outside chart from [facility] admission reviewed. ASSESSMENT/PLAN: 1. Shortness of breath - ICD9: 786.05, ICD10: R06.02 (primary diagnosis) Differentials include fluid overload from IV resuscitation, kidney failure, CHF, abdominal distention Stat work-up with: - NT PRO BNP - COMPLETE BLOOD COUNT - BASIC METABOLIC PANEL - XR CHEST 2V FRONTAL/LAT Follow-up pending results 2. Generalized edema - ICD9: 782.3, ICD10: R60.1 As above - NT PRO BNP 3. VIKA (acute kidney injury) (HCC) - ICD9: 584.9, ICD10: N17.9 Determined likely due to medications (Lisinopril and Metformin) in combination with dehydration. Schedule with Dr. Gupta as instructed - BASIC METABOLIC PANEL today 4. Esophageal varices without bleeding, unspecified esophageal varices type (HCC) - ICD9: 456.1, ICD10: I85.00 Newly diagnosed. Follow-up with Dr. Marie as instructed 5. Portal hypertensive gastropathy (HCC) (HCC) - ICD9: 572.3, 537.89, ICD10: K76.6, K31.89 As above 6. Cirrhosis of liver without ascites, unspecified hepatic cirrhosis type (HCC) - ICD9: 571.5, ICD10: K74.60 As above 7. Primary hypertension - ICD9: 401.9, ICD10: I10 - Worsening control, recent medication changes - Continue current medications - encouraged patient to monitor at home - Follow up in one month as previously scheduled for hypertension visit 8. Controlled type 2 diabetes mellitus without complication, without long-term current use of insulin (HCC) - ICD9: 250.00, ICD10: E11.9 All diabetes medications discontinued during admission. Blood sugars are well controlled at this time. Continue to check daily and call office if consistently elevated. Prescription instructions reviewed with patient as applicable. Potential red flag symptoms discussed with the patient. Reviewed appropriate action plan to take if red flag symptoms occur. Patient agreeable to treatment plan. Ana Browning APRN.[employer] [facility] Discharge summary Author Myrna Delgado [facility] July 09, 2023 2:55pm Note Date/Time July 09, 2023 2:[address] [facility] Medical Records Department [address] [place] [address] Instructions for Home/Discharge Instructions 07/09/23 1441 MR#: [id number] Acct: [id number] Name: MACY MORALES Rep #:[id number] : 1955 67 From: Myrna Delgado DO PCP: Dr. Elder Reddy MD Status:A DM IN Discharge Instructions Diet Discharge Diet: 1800 Calorie Control Diet Activity Discharge Activity: Return to Normal Activity Weight Bearing Status: Full weight bearing Follow Up Care Test Results: Test results from this visit will be discussed in further detail at your follow- up appointment, if applicable. Discharge Plan Admission Admit Date/Time: 07/06/23 04:42 Primary Reason for Your Visit: hematemesis, acute kidney injury Attending Provider: Myrna Delgado Primary Care Provider: Elder Reddy Consulting Providers: Stephanie Gong; Yecenia Quinonez Discharge Orders/Prescriptions Prescriptions: New pantoprazole [Protonix] 40 mg tablet,delayed release (DR/EC) 40 mg PO BID Qty: 60 0RF metoclopramide HCl [Reglan] 5 mg tablet 5 mg PO TID Qty: 90 0RF Rx Instructions: one hour before meals amlodipine [Norvasc] 5 mg tablet 5 mg PO DAILY Qty: 30 0RF Continued alendronate 70 mg tablet 70 mg PO QWEEK atorvastatin 20 mg tablet 20 mg PO DAILY Discontinued glipizide 2.5 mg tablet extended release 24hr 2.5 mg PO DAILY Patient Comments: TAKE 1 TABLET BY MOUTH ONCE DAILY metformin 500 mg tablet extended release 24 hr 1,000 mg PO BID Patient Comments: TAKE 2 TABLETS BY MOUTH TWICE DAILY WITH MEALS carvedilol 6.25 mg tablet 6.25 mg PO BID lisinopril 20 mg tablet 20 mg PO DAILY Referrals / Follow Up: Yecenia Quinonez MD [Med Staff - Consulting] - Within 2 Weeks (call for an appointment) Santino Marie DO [Med Staff - Active Staff] - See Referral Note (in 3 weeks- call for appointment) Elder Reddy MD [Primary Care Provider] - Within 1 Month Disposition Disposition (needs filled in before D/C Order can be placed): Home, Self Care 07/09/23 6209<Electronically signed by Myrna Delgado DO>Myrna Delgado DO CC: Dr. Stephanie Gong DO; Dr. Yecenia Quinonez MD; Dr. Elder Reddy MD ~ Signed [facility] Work Phone: 1(436) 928-544304-26-2024 Progress note Author Yecenia Quinonez [facility] July 09, 2023 1:48pm Note Date/Time July 09, 2023 1:4 7pm [facility] Medical Records Department [address] [place] [address] Progress Note - Nephrology 07/09/23 1347 MR#: [id number] Acct: [id number] Name: MACY MORALES Rep #:[id number] : 1955 67 From: Yecenia hernandez MD PCP: Dr. Elder Reddy MD Status:A DM IN Location: [place] [address] Subjective Subjective No new complaints. Objective Data Objective Data Vital Signs: Vital Signs Temp Pulse Resp BP Pulse Ox O2 Del Method 98.1 F 82 16 156/93 H 100 Room Air 07/09/23 08:17 07/09/23 08:17 07/09/23 08:17 07/09/23 08:17 07/09/23 08:17 07/09/23 08:17 Oxygen Delivery Method Room Air Weight: 92.6 kg Body Mass Index (BMI) 40.1 Intake & Output: Intake and Output for Last 24 Hours 07/07/23 07/08/23 07/09/23 23:59 23:59 23:59 Intake Total 3326.25 / 3326.25 3159.58 / 3359.58 2232.92 / 2232.92 Output Total Balance 3326.25 / 3326.25 3158.58 / 3358.58 2232.92 / 2232.92 Lab / Micro Data 07/09/23 08:30 07/09/23 08:30 Labs: Laboratory Results - last 24 hr 07/08/23 06:55: Haptoglobin 38 07/08/23 18:35: Ur Random Sodium 44, Miscellaneous Test Cancelled 07/09/23 08:30: WBC 5.0, RBC 3.77 L, Hgb 11.6 L, Hct 35.5 L, MCV 94.2, MCH 30.8,MCHC 32.7, RDW Std Deviation 52.2 H, RDW Coeff of Francisco 15.1 H, Plt Count 55 L, MPV 12.3 H, Immature Gran % (Auto) 0.400, Neut % (Auto) 52.5, Lymph % (Auto) 29.6, [place] % (Auto) 11.1 H, Eos % (Auto) 5.8 H, Baso % (Auto) 0.6, Absolute Neuts (auto) 2.7, Absolute Lymphs (auto) 1.49, Nucleated RBC % 0, Sodium 139, Potassium 4.3, Chloride 117 H, Carbon Dioxide 15.0 L, BUN 25 H, Creatinine 2.37 H, Estim Creat Clear Calc 24.04, Est GFR (MDRD) Af Amer 26 L, Est GFR (MDRD) Non-Af 22 L, BUN/Creatinine Ratio 10.5, Glucose 82, Calcium 8.1 L, Phosphorus 3.0, Albumin 2.9 L Micro: Microbiology 07/07/23 02:56 Stool Stool Lactoferrin - Final 07/07/23 02:56 Stool Enteric Bacteriology - Final 07/07/23 02:56 Stool Clostridioides difficile (PCR) - Final 07/06/23 04:30 Stool Stool Occult Blood (LIZBETH) - Final Physical Exam Narrative Alert awake oriented x 3 no obvious distress no pallor no icterus no JVD s1s2 no murmurs lungs clear abdomen soft no organomegaly no edema no cyanosis Assessment & Plan Assessment/Plan (1) Acute renal failure: QUALIFIERS: Acute renal failure type: unspecified Qualified Code(s): N17.9 - Acute kidney failure, unspecified PLAN: Baseline creatinine was 0.4 as of July 2022. No recent labs available after. Peak creatinine 2.9, slightly better at 2.[address] abdomen without any hydronephrosis. Urine analysis completely benign except for few leukocytes. pending urine eosinophils. Chronic history of thrombocytopenia. Bone marrow biopsy did not show myeloproliferative lesion. LDH is elevated, Haptoglobin is normal. Unlikely hemolytic anemia. Chronic thrombocytopenia likely related to cirrhosis Lisinopril is on hold. Hyperkalemia. Presumably due to VIKA and lisinopril. Better with Kayexalate. Creatinine has been improving. Asking about going home. From a nephrology standpoint, she can be discharged. We will arrange follow-up in office in about1 to 2 weeks. 07/09/23 1348 <Electronically signed by Yecenia Quinonez MD> Cosigner Signature (if applicable): CC: ~ Signed [facility] Work Phone: 1(487) 711-724904-25-2024 Progress note Author Myrna Delgado [facility] July 08, 2023 8:39pm Note Date/Time July 08, 2023 8:[address] [facility] Medical Records Department [address] [place] [address] Progress Note - Hospitalist 07/08/232034 MR#: [id number] Acct: [id number] Name: MACY MORALES Rep #:[id number] : 1955 67 From: Myrna Delgado DO PCP: Dr. Elder Reddy MD Status:A DM IN Location: [place] [address] Reason for Visit Reason for Visit: Diagnoses Thrombocytopenia, unspecified (07/06/23) Other disorders of bilirubin metabolism (07/06/23) Fatty (change of) liver, not elsewhere classified (07/06/23) Acute kidney failure, unspecified (07/06/23) Nausea with vomiting, unspecified (07/06/23) Diarrhea, unspecified (07/06/23) Adverse effect of unspecified drugs, medicaments and biological substances, initial encounter (07/06/23) Subjective Subjective Patient was seen and examined today, her creatinine improved slightly today, I will recheck renal profile tomorrow Objective Data Objective Data Vital Signs: Vital Signs Temp Pulse Resp BP Pulse Ox O2 Del Method 96.9 F L 76 16 93/74 100 Room Air 07/08/23 15:07 07/08/23 15:07 07/08/23 15:07 07/08/23 15:07 07/08/23 15:07 07/08/23 15:07 Oxygen Delivery Method Room Air Weight: 87.4 kg Body Mass Index (BMI) 37.8 Intake & Output: Intake and Output for Last 24 Hours 07/06/23 07/07/23 07/08/23 23:59 23:59 23:59 Intake Total 3459.50 / 3459.50 3326.25 / 3326.25 Output Total Balance 3459.50 / 3459.50 3326.25 / 3326.25 Lab / Micro Data 07/07/23 06:17 07/08/23 06:55 Labs: Laboratory Results - last 24 hr 07/08/23 06:55: Sodium 141, Potassium 4.7, Chloride 115 H, Carbon Dioxide 17.0 L, BUN 30 H, Creatinine 2.66 H, Estim Creat Clear Calc 20.72, Est GFR (MDRD) Af Amer 23 L, Est GFR (MDRD) Non-Af 19 L, BUN/Creatinine Ratio 11.3, Glucose 100, Calcium 8.0 L, Phosphorus 3.4, Lactate Dehydrogenase 304 H, Albumin 2.9 L 07/08/23 18:35: Ur Random Sodium 44, Miscellaneous Test Cancelled Micro: Microbiology 07/07/23 02:56 Stool Stool Lactoferrin - Final 07/07/23 02:56 Stool Enteric Bacteriology - Final 07/07/23 02:56 Stool Clostridioides difficile (PCR) - Final 07/06/23 04:30 Stool Stool Occult Blood (LIZBETH) - Final Physical Exam Narrative alert, oriented x3 and no apparent distress Constitutional Narrative: Speaks only a little Marshallese General Appearance: cooperative, well kempt and well developed Orientation / Consciousness: awake, oriented to person, oriented to place and oriented to time HEENT normocephalic, head/scalp atraumatic and moist oral mucous membranes Eyes PERRL, EOMs intact bilaterally and conjunctivae normal Neck supple, no JVD, thyroid normal and no carotid bruits General: trachea midline Resp normal respiratory effort, no retractions, no use of accessory muscles and clearto auscultation bilaterally Auscultation: Negative for rales, rhonchi or wheezes Cardio regular rate, regular rhythm, S1 normal heart sound, S2 normal heart sound, no murmurs, no rub and no gallops GI normal to inspection, nondistended, normoactive bowel sounds, soft to palpation,non-tender and non-distended Extremity no clubbing, cyanosis or edema Skin no rashes or lesions noted General Skin Exam: no breakdown Neuro oriented x3, CN's II-XII intact bilaterally, moves all extremities, no focal motor deficits and no sensory deficits noted Sensorium / Orientation: awake and alert Speech: speech normal Psych affect normal Assessment & Plan Assessment/Plan (1) Fatty liver disease, nonalcoholic: (2) Acute renal failure: QUALIFIERS: Acute renal failure type: unspecified Qualified Code(s): N17.9 - Acute kidney failure, unspecified (3) Nausea vomiting and diarrhea: PLAN: Plan 1. Acute kidney injury-I will continue to administer fluids to the patient, if her creatinine has not changed appreciably tomorrow, patient's renal ultrasound was unremarkable, nephrology is seeing the patient in consultation. 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 Total clinical time spent by myself addressing the patient's medical issues, reviewing all of her data, and collaborating with patient's care team: 35 minutes Charges/Coding Visit Charges Inpatient E&M: 16889 Subs Hosp L2 07/08/232038 <Electronically signed by Myrna Delgado DO> Cosigner Signature (if applicable): CC: ~ Signed [facility] Work Phone: 1(310) 152-111404-25-2024 Progress note Author Santino Marie [facility] July 08, 2023 5:51pm Note Date/Time July 08, 2023 5:[address] [facility] Medical Records Department [address] [place] [address] Progress Note - GI 07/08/231748 MR#: [id number] Acct: [id number] Name: MACY MORALES Rep #:[id number] : 1955 67 From: Santino Marie DO PCP: Dr. Elder Reddy MD Status:A DM IN Location: [place] [address] Subjective Subjective Patient is doing well seems more like herself today. She has more energy. She has not been on lactulose for hepatic encephalopathy prophylaxis due to her ongoing diarrhea. That has also been a little bit better today. Her kidney function is improving. She asked that she go home. Objective Data Objective Data Vital Signs: Vital Signs Temp Pulse Resp BP Pulse Ox O2 Del Method 96.9 F L 76 16 93/74 100 Room Air 07/08/23 15:07 07/08/23 15:07 07/08/23 15:07 07/08/23 15:07 07/08/23 15:07 07/08/23 15:07 Oxygen Delivery Method Room Air Weight: 192 lb 10.944 oz Body Mass Index (BMI) 37.8 Intake & Output: Intake and Output for Last 24 Hours 07/06/23 07/07/23 07/08/23 23:59 23:59 23:59 Intake Total 3459.50 / 3459.50 3326.25 / 3326.25 2027.75 / 2027.75 Output Total Balance 3459.50 / 3459.50 3326.25 / 3326.25 202.75 / 2026.75 Lab / Micro Data 07/07/23 06:17 07/08/23 06:55 Labs: Laboratory Results - last 24 hr 07/08/23 06:55: Sodium 141, Potassium 4.7, Chloride 115 H, Carbon Dioxide 17.0 L, BUN 30 H, Creatinine 2.66 H, Estim Creat Clear Calc 20.72, Est GFR (MDRD) Af Amer 23 L, Est GFR (MDRD) Non-Af 19 L, BUN/Creatinine Ratio 11.3, Glucose 100, Calcium 8.0 L, Phosphorus 3.4, Lactate Dehydrogenase 304 H, Albumin 2.9 L Micro: Microbiology 07/07/23 02:56 Stool Stool Lactoferrin - Final 07/07/23 02:56 Stool Enteric Bacteriology - Final 07/07/23 02:56 Stool Clostridioides difficile (PCR) - Final 07/06/23 04:30 Stool Stool Occult Blood (LIZBETH) - Final Physical Exam Narrative Alert awake oriented x 3 no obvious distress no pallor no icterus no JVD s1s2 no murmurs lungs clear abdomen soft no organomegaly no edema no cyanosis Assessment & Plan Assessment/Plan (1) Acute renal failure: QUALIFIERS: Acute renal failure type: unspecified Qualified Code(s): N17.9 - Acute kidney failure, unspecified (2) Nausea vomiting and diarrhea: (3) Adverse drug reaction: QUALIFIERS: Encounter type: initial encounter Qualified Code(s): T50.905A - Adverse effect of unspecified drugs, medicaments and biological substances, initial encounter (4) Hyperbilirubinemia: (5) Fatty liver disease, nonalcoholic: (6) Thrombocytopenia: PLAN: Plan 67-year-old with past medical history of diabetes, obesity presents with nausea and vomiting and discovered to have inflammation in her colon. 1. CT scan on admission suspicious for ascending colitis in the setting of known fatty liver disease with mild hyperbilirubinemia of 1.3 mg/dL, elevated AST of 67 units/L and alkaline phosphatase of 197 units/L present on admission - differential diagnosis does include mild ischemic colitis, infectious colitis and less likely inflammatory bowel disease. Recommend check stool studies, inflammatory markers. She may need colonoscopy in the future. 2. Nausea and vomiting with primarily bilious emesis with minimal blood streaking and nonbloody diarrhea with suspected component of dehydration due to #1 - Place on enteric and aspiration precautions. Give IV Protonix 40 mg twice daily. Give Zofran IV as needed for nausea or vomiting. Check stool studies: C. difficile A&B toxin PCR, stool ova and parasites, fecal white blood cells andHemoccult. Keep n.p.o. except for ice chips, sips and medications. Patient would likely need EGD to evaluate upper GI tract 3. Elevated creatinine of 2.88 mg/dL with a BUN of 30 mg/dL present on admission consistent with suspected acute renal failure likely due at least on part to an Adverse Drug Reaction to Lisinopril complicating #1 & #2 - Give vigorous IV volume resuscitation and recheck BMP to positive response to therapy. 4. Chronic thrombocytopenia with platelet count of 59 present on admission adding to the pathology of #1 - #3 - Check CBC daily to ensure continued stability. Avoid heparin or heparinoid's with platelet count less than 100. Differential diagnosis does include portal hypertension, splenomegaly, cirrhosis 07/08/23-cirrhosis currently with a MELD of 18 and a child Bell class B complicated by esophageal varices, thrombocytopenia, mild ascites, mild encephalopathy and acute kidney injury status post upper GI bleed. Autoimmune workup is pending along with workup for hemochromatosis, sarcoidosis, amyloidosis as etiology of cirrhosis. She should be discharged on Xifaxan 550 p.o. twice daily and sodium restricted diet. She will also need MELD labs in approximately a week along with INR. If patient goes home then we can do colonoscopy as outpatient as she is clinically improving. Charges/Coding Visit Charges Inpatient E&M: 66516 Subs Hosp L3 07/08/23 1751 <Electronically signed by Santino Friend DO> Cosigner Signature (if applicable): CC: ~ Signed [facility] Work Phone: 1(254) 758-948304-25-2024 Progress note Author Yecenia Quinonez [facility] July 08, 2023 1:21pm Note Date/Time July 08, 2023 1:[address] [facility] Medical Records Department [address] [place] [address] Progress Note - Nephrology 07/08/23 1320 MR#: [id number] Acct: [id number] Name: MACY MORALES Rep #:[id number] : 1955 67 From: Yecenia hernandez MD PCP: Dr. Elder Reddy MD Status:A DM IN Location: [place] [address] Subjective Subjective No new complaints today Objective Data Objective Data Vital Signs: Vital Signs Temp Pulse Resp BP Pulse Ox O2 Del Method 96.7 F L 75 16 136/87 H 100 Room Air 07/08/23 09:55 07/08/23 09:55 07/08/23 09:55 07/08/23 09:55 07/08/23 09:55 07/08/23 09:55 Oxygen Delivery Method Room Air Weight: 87.4 kg Body Mass Index (BMI) 37.8 Intake & Output: Intake and Output for Last 24 Hours 07/06/23 07/07/23 07/08/23 23:59 23:59 23:59 Intake Total 3459.50 / 3459.50 3326.25 / 3326.25 Output Total Balance 3459.50 / 3459.50 3326.25 / 3326.25 / Lab / Micro Data 07/07/23 06:17 07/08/23 06:55 Labs: Laboratory Results - last 24 hr 07/07/23 16:56: Iron 91, TIBC 365, Iron Saturation 24.9, Ferritin 107, Ammonia 14.0, Amylase 67, Lipase 39 04/25/24 06:55: Sodium 141, Potassium 4.7, Chloride 115 H, Carbon Dioxide 17.0 L, BUN 30 H, Creatinine 2.66 H, Estim Creat Clear Calc 20.72, Est GFR (MDRD) Af Amer 23 L, Est GFR (MDRD) Non-Af 19 L, BUN/Creatinine Ratio 11.3, Glucose 100, Calcium 8.0 L, Phosphorus 3.4, Lactate Dehydrogenase 304 H, Albumin 2.9 L Micro: Microbiology 07/07/23 02:56 Stool Stool Lactoferrin - Final 07/07/23 02:56 Stool Enteric Bacteriology - Final 07/07/23 02:56 Stool Clostridioides difficile (PCR) - Final 07/06/23 04:30 Stool Stool Occult Blood (LIZBETH) - Final Physical Exam Narrative Alert awake oriented x 3 no obvious distress no pallor no icterus no JVD s1s2 no murmurs lungs clear abdomen soft no organomegaly no edema no cyanosis Assessment & Plan Assessment/Plan (1) Acute renal failure: QUALIFIERS: Acute renal failure type: unspecified Qualified Code(s): N17.9 - Acute kidney failure, unspecified PLAN: Baseline creatinine was 0.4 as of July 2022. No recent labs available after. Peak creatinine 2.9, slightly better at 2.[address] abdomen without any hydronephrosis. Urine analysis completely benign except for few leukocytes. pending urine eosinophils. Chronic history of thrombocytopenia. Bone marrow biopsy did not show myeloproliferative lesion. LDH is elevated, haptoglobin pending Lisinopril is on hold. Continue fluids Hyperkalemia. Presumably due to VIKA and lisinopril. Better with Kayexalate. Urine output has been okay according to her. Since creatinine is improving, possible this is all volume depletion that required more IV fluids. Asking about going home. If creatinine is better tomorrow, can be discharged from my end and will arrange outpatient follow-up. 07/08/23 1321 <Electronically signed by Yecenia Quinonez MD> Cosigner Signature (if applicable): CC: ~ Signed [facility] Work Phone: 1(657) 140-962204-24-2024 Consult note Author Santino Friend [facility] July 07, 2023 6:17pm Note Date/Time July 07, 2023 6:[address] [facility] Medical Records Department [address] [place] [address] Consultation - GI 07/06/233 MR#: [id number] Acct: [id number] Name: MACY MORALES Rep #:[id number] : 1955 67 From: Santino Friend DO PCP: Dr. 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 Ms. Morales speaks English only but her daughter was present at the bedside in the ER to augment the history. According to the patient's daughter her according to the patient's daughter her symptoms have been ongoing for quite some time but when they noticed streaks of bright red blood in her emesis earlier today they decided to come in for further evaluation and treatment. The patient denies a history of a bleeding disorder or being on blood thinners but she was diagnosed with thrombocytopenia more than 1 year ago a platelet count of 60 at that time. They deny any blood in her stools or vomiting of gross blood, coffee-ground emesis or tarry-black stools. Upon further questioning her daughter also deniesa history of the patient having previously underwent EGD. The daughter is also not sure when is the last time her kidney function was checked but her kidney function was normal on her last admission here more than 1 year ago but she is notably on lisinopril, glipizide and metformin. She denies associated fever, chills, sore throat, myalgias, abdominal pain or chest pain but she does admit to frequent headaches. In the ER she was noted tohave a CT scan of the abdomen and pelvis without contrast suspicious for evidence of ascending colitis in the setting of known fatty liver disease with mild hyperbilirubinemia of 1.3 mg/dL, elevated AST of 67 U/L and alkaline phosphatase of 197 U/L present on admission complicated by nausea and vomiting with bilious emesis and blood streaking plus nonbloody diarrhea [facility] Medical History Diabetes Facial droop History of hypertension HTN (hypertension) Thrombocytopenia Home Medications glipizide 2.5 mg tablet, extended release 24 hr 2.5 mg PO DAILY diabetes 06/01/22 [History Last Taken Unknown] metformin 500 mg tablet,extended release 24 hr 1,000 mg PO BID diabetes 06/01/22[History Last Taken Unknown] alendronate 70 mg tablet 70 mg PO QWEEK 07/06/23 [History Last Taken Unknown] atorvastatin 20 mg tablet 20 mg PO DAILY 07/06/23 [History Last Taken Unknown] carvedilol 6.25 mg tablet 6.25 mg PO BID 07/06/23 [History Last Taken Unknown] lisinopril 20 mg tablet 20 mg PO DAILY 07/06/23 [History Last Taken Unknown] Allergy/AdvReac Type Severity Reaction Status Date / Time No Known Allergies Allergy Verified 07/06/23 02:41 Family History Other CVA (cerebral vascular accident) Hypertension Social History Smoking Status: Never smoker ROS ROS Narrative Review of systems: General: Patient denies fevers or chills. HENT: Denies headache, denies stuffy nose, denies sore throat EYES: Denies changes in vision or discharge from eyes. Resp: Denies cough, denies shortness of breath Cardiac: Denies chest pain, palpitations or heart racing. GI: Patient admits to nausea, bilious emesis with blood streaking and nonbloody diarrhea but she denies abdominal pain, melena or hematemesis as per HPI. : Denies changes in urination Extremity: Denies swelling Musculoskeletal: Patient denies arthralgias or myalgias. Neuro: Patient admits to frequent headaches but she denies paresthesias or focalneurologic deficits. Heme: Patient admits to blood streaking in her emesis as per HPI. Skin: Denies rashes Psychiatric: No complaints voiced related to uncontrolled depression or anxiety Endocrine: No polyuria, polydipsia or polyphagia. The rest of the 14 point ROS was negative except for positives in HPI. Physical Exam Const alert, oriented x3 and no apparent distress Constitutional Narrative: Speaks only a little Marshallese General Appearance: cooperative, well kempt and well developed Orientation / Consciousness: awake, oriented to person, oriented to place and oriented to time HEENT normocephalic, head/scalp atraumatic and moist oral mucous membranes Eyes PERRL, EOMs intact bilaterally and conjunctivae normal Neck supple, no JVD, thyroid normal and no carotid bruits General: trachea midline Resp normal respiratory effort, no retractions, no use of accessory muscles and clearto auscultation bilaterally Auscultation: Negative for rales, rhonchi or wheezes Cardio regular rate, regular rhythm, S1 normal heart sound, S2 normal heart sound, no murmurs, no rub and no gallops GI normal to inspection, nondistended, normoactive bowel sounds, soft to palpation,non-tender and non-distended Extremity no clubbing, cyanosis or edema Skin no rashes or lesions noted General Skin Exam: no breakdown Neuro oriented x3, CN's II-XII intact bilaterally, moves all extremities, no focal motor deficits and no sensory deficits noted Sensorium / Orientation: awake and alert Speech: speech normal Psych affect normal Lab / Micro Data 07/07/23 06:17 07/07/23 06:17 Labs: Laboratory Results - last 24 hr 07/06/23 06:15: Hepatitis A IgM Ab Negative, Hep Bs Antigen Negative, Hep B CoreIgM Ab Negative, Hepatitis C Ab (EIA) Non Reactive, Hep C Ab Comment Comment 07/07/23 06:17: WBC 4.3 L, RBC 3.78 L, Hgb 11.6 L, Hct 35.8 L, MCV 94.7, MCH 30.7, MCHC 32.4, RDW Std Deviation 53.1 H, RDW Coeff of Francisco 15.2 H, Plt Count 56L, MPV 12.3 H, Immature Gran % (Auto) 0.500, Neut % (Auto) 54.7, Lymph % (Auto) 21.7, [place] % (Auto) 15.7 H, Eos % (Auto) 6.7 H, Baso % (Auto) 0.7, Absolute Neuts (auto) 2.4, Absolute Lymphs (auto) 0.94, Nucleated RBC % 0.5, Sodium 140, Potassium 4.7, Chloride 116 H, Carbon Dioxide 20.0 L, Anion Gap 4 L, BUN 29 H, Creatinine 2.91 H, Estim Creat Clear Calc 18.59, Est GFR (MDRD) Af Amer 21 L, Est GFR (MDRD) Non-Af 17 L, BUN/Creatinine Ratio 10.0, Glucose 104, Calcium 8.1 L 07/07/23 16:56: Iron 91, TIBC 365, Iron Saturation 24.9, Ferritin 107, Ammonia 14.0, Amylase 67, Lipase 39 Micro: Microbiology 07/07/23 02:56 Stool Stool Lactoferrin - Final 07/07/23 02:56 Stool Enteric Bacteriology - Final 07/07/23 02:56 Stool Clostridioides difficile (PCR) - Final Assessment & Plan Assessment/Plan (1) Acute renal failure: QUALIFIERS: Acute renal failure type: unspecified Qualified Code(s): N17.9 - Acute kidney failure, unspecified (2) Nausea vomiting and diarrhea: (3) Adverse drug reaction: QUALIFIERS: Encounter type: initial encounter Qualified Code(s): T50.905A - Adverse effect of unspecified drugs, medicaments and biological substances, initial encounter (4) Hyperbilirubinemia: (5) Fatty liver disease, nonalcoholic: (6) Thrombocytopenia: PLAN: Plan 67-year-old with past medical history of diabetes, obesity presents with nausea and vomiting and discovered to have inflammation in her colon. 1. CT scan on admission suspicious for ascending colitis in the setting of known fatty liver disease with mild hyperbilirubinemia of 1.3 mg/dL, elevated AST of 67 units/L and alkaline phosphatase of 197 units/L present on admission - differential diagnosis does include mild ischemic colitis, infectious colitis and less likely inflammatory bowel disease. Recommend check stool studies, inflammatory markers. She may need colonoscopy in the future. 2. Nausea and vomiting with primarily bilious emesis with minimal blood streaking and nonbloody diarrhea with suspected component of dehydration due to #1 - Place on enteric and aspiration precautions. Give IV Protonix 40 mg twice daily. Give Zofran IV as needed for nausea or vomiting. Check stool studies: C. difficile A&B toxin PCR, stool ova and parasites, fecal white blood cells andHemoccult. Keep n.p.o. except for ice chips, sips and medications. Patient would likely need EGD to evaluate upper GI tract 3. Elevated creatinine of 2.88 mg/dL with a BUN of 30 mg/dL present on admission consistent with suspected acute renal failure likely due at least on part to an Adverse Drug Reaction to Lisinopril complicating #1 & #2 - Give vigorous IV volume resuscitation and recheck BMP to positive response to therapy. 4. Chronic thrombocytopenia with platelet count of 59 present on admission adding to the pathology of #1 - #3 - Check CBC daily to ensure continued stability. Avoid heparin or heparinoid's with platelet count less than 100. Differential diagnosis does include portal hypertension, splenomegaly, cirrhosis Charges/Coding Visit Charges Inpatient E&M: 07882 Init Hosp L3 07/07/231816 <Electronically signed by Santino Marie DO> Cosigner Signature (if applicable): CC: Dr. Elder Reddy MD~ Signed [facility] Work Phone: 1(385) 414-113604-24-2024 Progress note Author [facility] July 07, 2023 6:10pm Note Date/Time July 07, 2023 5:4 9pm [facility] Medical Records Department [address] [place] [address] Progress Note - Hospitalist 07/07/23 1746 MR#: [id number] Acct: [id number] Name: MACY MORALES Rep #:[id number] : 1955 67 From: Myrna Delgado DO PCP: Dr. Elder Reddy MD Status:A DM IN Location: ICU ICU06-1 Reason for Visit Reason for Visit: Diagnoses Thrombocytopenia, unspecified (07/06/23) Other disorders of bilirubin metabolism (07/06/23) Fatty (change of) liver, not elsewhere classified (07/06/23) Acute kidney failure, unspecified (07/06/23) Nausea with vomiting, unspecified (07/06/23) Diarrhea, unspecified (07/06/23) Adverse effect of unspecified drugs, medicaments and biological substances, initial encounter (07/06/23) Subjective Subjective Seen and examined today, her hemoglobin appears to be stable, I talked with the daughter and the patient this afternoon in her room. I had nephrology see the patient due to declining renal function, it is not certain what is going on at the present time to cause this dysfunction, she will continue to receive fluids and she is urinating. Objective Data Objective Data Vital Signs: Vital Signs Temp Pulse Resp BP Pulse Ox O2 Del Method 98.2 F 77 17 119/58 L 98 Room Air 07/07/23 11:46 07/07/23 11:46 07/07/23 11:46 07/07/23 11:46 07/07/23 11:46 07/07/23 11:46 Oxygen Delivery Method Room Air Weight: 85.12 kg Body Mass Index (BMI) 36.8 Intake & Output: Intake and Output for Last 24 Hours 07/05/23 07/06/23 07/07/23 23:59 23:59 23:59 Intake Total 3459.50 / 3459.50 2210 / 2210 Balance 3459.50 / 3459.50 2210 / 2210 Lab / Micro Data 07/07/23 06:17 07/07/23 06:17 Labs: Laboratory Results - last 24 hr 07/06/23 06:15: Hepatitis A IgM Ab Negative, Hep Bs Antigen Negative, Hep B CoreIgM Ab Negative, Hepatitis C Ab (EIA) Non Reactive, Hep C Ab Comment Comment 07/07/23 06:17: WBC 4.3 L, RBC 3.78 L, Hgb 11.6 L, Hct 35.8 L, MCV 94.7, MCH 30.7, MCHC 32.4, RDW Std Deviation 53.1 H, RDW Coeff of Francisco 15.2 H, Plt Count 56L, MPV 12.3 H, Immature Gran % (Auto) 0.500, Neut % (Auto) 54.7, Lymph % (Auto) 21.7, [place] % (Auto) 15.7 H, Eos % (Auto) 6.7 H, Baso % (Auto) 0.7, Absolute Neuts (auto) 2.4, Absolute Lymphs (auto) 0.94, Nucleated RBC % 0.5, Sodium 140, Potassium 4.7, Chloride 116 H, Carbon Dioxide 20.0 L, Anion Gap 4 L, BUN 29 H, Creatinine 2.91 H, Estim Creat Clear Calc 18.59, Est GFR (MDRD) Af Amer 21 L, Est GFR (MDRD) Non-Af 17 L, BUN/Creatinine Ratio 10.0, Glucose 104, Calcium 8.1 L 07/07/23 16:56: Iron 91, TIBC 365, Iron Saturation 24.9, Ferritin 107, Ammonia 14.0, Amylase 67, Lipase 39 Micro: Microbiology 07/07/23 02:56 Stool Stool Lactoferrin - Final 07/07/23 02:56 Stool Enteric Bacteriology - Final 07/07/23 02:56 Stool Clostridioides difficile (PCR) - Final 07/06/23 04:30 Stool Stool Occult Blood (LIZBETH) - Final Physical Exam Const alert, oriented x3 and no apparent distress Constitutional Narrative: Speaks only a little Marshallese General Appearance: cooperative, well kempt and well developed Orientation / Consciousness: awake, oriented to person, oriented to place and oriented to time HEENT normocephalic, head/scalp atraumatic and moist oral mucous membranes Eyes PERRL, EOMs intact bilaterally and conjunctivae normal Neck supple, no JVD, thyroid normal and no carotid bruits General: trachea midline Resp normal respiratory effort, no retractions, no use of accessory muscles and clearto auscultation bilaterally Auscultation: Negative for rales, rhonchi or wheezes Cardio regular rate, regular rhythm, S1 normal heart sound, S2 normal heart sound, no murmurs, no rub and no gallops GI normal to inspection, nondistended, normoactive bowel sounds, soft to palpation,non-tender and non-distended Extremity no clubbing, cyanosis or edema Skin no rashes or lesions noted General Skin Exam: no breakdown Neuro oriented x3, CN's II-XII intact bilaterally, moves all extremities, no focal motor deficits and no sensory deficits noted Sensorium / Orientation: awake and alert Speech: speech normal Psych affect normal Assessment & Plan Assessment/Plan (1) Acute renal failure: QUALIFIERS: Acute renal failure type: unspecified Qualified Code(s): N17.9 - Acute kidney failure, unspecified (2) Nausea vomiting and diarrhea: PLAN: Plan 1. Acute kidney injury-I will continue to administer fluids to the patient, if her creatinine has not changed appreciably tomorrow, patient's renal ultrasound was unremarkable, nephrology is seeing the patient in consultation. #2 esophageal varices-indicative of possible cirrhosis, gastroenterology is participating in her care #3 colitis as indicated by patient's CT scan-patient unfortunately does not havethe symptomology for colitis at this time, I have elected to keep her on IV antibiotics for now and reevaluate her. She may ultimately need an outpatient colonoscopy. #4 type 2 diabetes-patient's blood sugars will be monitored, sliding scale insulin will be given to the patient, she is on glipizide and metformin as an outpatient #5 chronic intermittent diarrhea-patient states that she had diarrhea over the last several weeks, she has been on metformin for longer than that however so I think it is unlikely the metformin could be causing her symptomology. It is possible this patient may have microscopic colitis but the patient's CT reads out evidence of colitis. Again patient may need an outpatient colonoscopy to resolve this issue. 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 Total clinical time spent by myself addressing the patient's medical issues, reviewing all of her data, and collaborating with patient's care team: 50 minutes Charges/Coding Visit Charges Inpatient E&M: 76720 Subs Hosp 07/07/231804 <Electronically signed by Myrna Delgado DO> Cosigner Signature (if applicable): CC: ~ Signed ADDENDUM by Dr. Myrna Delgado, on 07/07/23 at 1810 Addendum Please reflect: Colitis was ruled out at this time, her antibiotics were stoppedtoday 07/07/231809<Electronically signed by Myrna Delgado DO> Cosigner Signature (if applicable): cc: ~* Signed [facility] Work Phone: 1(309) 848-554104-24-2024 Consult note Author Yecenia Quinonez [facility] July 07, 2023 12:04pm Note Date/Time July 07, 2023 12: 04pm [facility] Medical Records Department [address] [place] [address] Consultation - Nephrology 07/07/23 1201 MR#: [id number] Acct: [id number] Name: MACY MORALES Rep #:[id number] : 1955 67 From: Yecenia hernandez MD PCP: Dr. Eledr Reddy MD Status:A DM IN Location: ICU ICU06-1 Assessment & Plan Assessment/Plan (1) Acute renal failure: QUALIFIERS: Acute renal failure type: unspecified Qualified Code(s): N17.9 - Acute kidney failure, unspecified PLAN: Baseline creatinine was 0.4 as of July 2022. No recent labs available after. Currently has a creatinine of more than [address] abdomen without any hydronephrosis. Urine analysis completely benign except for few leukocytes. I will send a urine eosinophils. Chronic history of thrombocytopenia. Bone marrow biopsy did not show myeloproliferative lesion. I will check a haptoglobin and LDH. Lisinopril is on hold. Continue fluids Hyperkalemia. Presumably due to VIKA and lisinopril. Better with Kayexalate. HPI Consult Data Date of Consult: 07/07/23 HPI Narrative Reason for Consultation: Acute renal failure HPI Narrative: MACY MORALES, is a 67 F who presents hospital with mostly GI complaints. She has chronic history of GI issues with nausea, vomiting, diarrhea. It seems she developed hemoptysis and was brought in. Primary care is with [facility]. Review of records. It seems she was seen by gastroenterology at [facility], fibrosis score was elevated. Thought to be related to GILBERT. This admission, imaging is consistent with cirrhosis. She was seen by hematology at [facility], had a bone marrow biopsy. From the report that I can see, there is no evidence of myeloproliferative lesions. She does have chronic thrombocytopenia. Last known baseline creatinine was 0.4 in July 2022. Any urinary complaints such as dysuria, hematuria. No history of kidney stones,urine infections. Denies taking NSAIDs long-term basis. She says she takes Tylenol occasionally for headaches. New medications she says are heart related. Looking at her medications I would assume this is lisinopril. [facility] Medical History Diabetes Facial droop History of hypertension HTN (hypertension) Thrombocytopenia Home Medications glipizide 2.5 mg tablet, extended release 24 hr 2.5 mg PO DAILY diabetes 06/01/22 [History Last Taken Unknown] metformin 500 mg tablet,extended release 24 hr 1,000 mg PO BID diabetes 06/01/22[History Last Taken Unknown] alendronate 70 mg tablet 70 mg PO QWEEK 07/06/23 [History Last Taken Unknown] atorvastatin 20 mg tablet 20 mg PO DAILY 07/06/23 [History Last Taken Unknown] carvedilol 6.25 mg tablet 6.25 mg PO BID 07/06/23 [History Last Taken Unknown] lisinopril 20 mg tablet 20 mg PO DAILY 07/06/23 [History Last Taken Unknown] Allergy/AdvReac Type Severity Reaction Status Date / Time No Known Allergies Allergy Verified 07/06/23 02:41 Family History Other CVA (cerebral vascular accident) Hypertension Social History Smoking Status: Never smoker ROS ROS Narrative Negative except above Physical Exam Narrative Alert awake oriented x 3 no obvious distress no pallor no icterus no JVD s1s2 no murmurs lungs clear abdomen soft no organomegaly no edema no cyanosis Lab / Micro Data 07/07/23 06:17 07/07/23 06:17 Labs: Laboratory Results - last 24 hr 07/06/23 06:15: Hepatitis A IgM Ab Negative, Hep Bs Antigen Negative, Hep B CoreIgM Ab Negative, Hepatitis C Ab (EIA) Non Reactive, Hep C Ab Comment Comment 07/07/23 06:17: WBC 4.3 L, RBC 3.78 L, Hgb 11.6 L, Hct 35.8 L, MCV 94.7, MCH 30.7, MCHC 32.4, RDW Std Deviation 53.1 H, RDW Coeff of Francisco 15.2 H, Plt Count 56L, MPV 12.3 H, Immature Gran % (Auto) 0.500, Neut % (Auto) 54.7, Lymph % (Auto) 21.7, [place] % (Auto) 15.7 H, Eos % (Auto) 6.7 H, Baso % (Auto) 0.7, Absolute Neuts (auto) 2.4, Absolute Lymphs (auto) 0.94, Nucleated RBC % 0.5, Sodium 140, Potassium 4.7, Chloride 116 H, Carbon Dioxide 20.0 L, Anion Gap 4 L, BUN 29 H, Creatinine 2.91 H, Estim Creat Clear Calc 18.59, Est GFR (MDRD) Af Amer 21 L, Est GFR (MDRD) Non-Af 17 L, BUN/Creatinine Ratio 10.0, Glucose 104, Calcium 8.1 L Micro: Microbiology 07/07/23 02:56 Stool Stool Lactoferrin - Final 07/07/23 02:56 Stool Enteric Bacteriology - Final 07/07/23 02:56 Stool Clostridioides difficile (PCR) - Final 07/07/23 1204 <Electronically signed by Yecenia Quinonez MD> Cosigner Signature (if applicable): CC: Dr. Elder Reddy MD~ Signed [facility] Work Phone: 1(841) 233-543204-24-[address] [facility] 07-07-[address] [facility]04-23-2024 Progress note Author [facility] July 06, 2023 6:28pm Note Date/Time July 06, 2023 6:[address] [facility] Medical Records Department [address] [place] [id number] Progress Note - Hospitalist 07/06/23 1819 MR#: [id number] Acct: [id number] Name: MACY MORALES Rep #:[id number] : 1955 67 From: Myrna Delgado DO PCP: Dr. Elder Reddy MD Status:A DM IN Location: ICU ICU06-1 Reason for Visit Reason for Visit: Diagnoses Thrombocytopenia, unspecified (07/06/23) Other disorders of bilirubin metabolism (07/06/23) Fatty (change of) liver, not elsewhere classified (07/06/23) Acute kidney failure, unspecified (07/06/23) Nausea with vomiting, unspecified (07/06/23) Diarrhea, unspecified (07/06/23) Adverse effect of unspecified drugs, medicaments and biological substances, initial encounter (07/06/23) Subjective Subjective Patient was seen and examined today, she was admitted due to acute kidney injuryand complaints of diarrhea and hematemesis. I had a long talk with the patient's daughter this afternoon due to the fact the patient does not speak much Marshallese. Patient states she has been having several weeks of intermittent diarrhea, she denies any bloody diarrhea, she denies any weight loss. Patient states she vomited up blood yesterday with the first episode of emesis not afterwards. Patient has been seeing a chief concierge in [place] who has her on omeprazole twice a day, daughter states that she has never had an EGD or colonoscopy however. Patient's daughter states that the patient was told she had fatty liver. Patient does complain of reflux symptomology quite often and is unable to eat because of stomach upset even though she is taking omeprazole. Patient's blood count has not dropped appreciably since she was admitted, CT on admission showedevidence of colitis although again the patient denies any rectal bleeding. Additionally, when I asked the daughter how long the patient's been having gastrointestinal symptoms, she stated all her life this is obviously somewhat vague. Patient is receiving IV fluid administration in an attempt to see if this would improve her creatinine. Objective Data Objective Data Vital Signs: Vital Signs Temp Pulse Resp BP Pulse Ox O2 Del Method 98 F 81 16 112/76 97 Room Air 07/06/23 04:20 07/06/23 04:37 07/06/23 04:37 07/06/23 04:37 07/06/23 09:40 07/06/23 09:40 Oxygen Delivery Method Room Air Weight: 84.495 kg Body Mass Index (BMI) 36.3 Intake & Output: Intake and Output for Last 24 Hours 07/04/23 07/05/23 07/06/23 23:59 23:59 23:59 Intake Total 2526.58 / 2526.58 Balance 2526.58 / 2526.58 Lab / Micro Data 07/06/23 06:15 07/06/23 08:30 Labs: Laboratory Results - last 24 hr 07/06/23 02:46: WBC 6.0, RBC 4.34, Hgb 13.1, Hct 39.6, MCV 91.2, MCH 30.2, MCHC 33.1, RDW Std Deviation 49.2 H, RDW Coeff of Francisco 14.6, Plt Count 59 L, MPV 12.4 H, Immature Gran % (Auto) 0.500, Neut % (Auto) 65.4, Lymph % (Auto) 19.0, [place] %(Auto) 11.1 H, Eos % (Auto) 3.7, Baso % (Auto) 0.3, Absolute Neuts (auto) 3.9, Absolute Lymphs (auto) 1.13, Nucleated RBC % 0, PT 14.4, INR 1.1, APTT 36.7 H, Sodium 135 L, Potassium 4.8, Chloride 108 H, Carbon Dioxide 21.0, Anion Gap 6, BUN 30 H, Creatinine 2.88 H, Estim Creat Clear Calc 18.78, Est GFR (MDRD) Af Amer 21 L, Est GFR (MDRD) Non-Af 17 L, BUN/Creatinine Ratio 10.4, Glucose 116 H,Hemoglobin A1c 5.7 H, Calcium 8.4 L, Total Bilirubin 1.30 H, Direct Bilirubin 0.55 H, AST 67 H, ALT 52, Alkaline Phosphatase 197 H, Total Protein 7.7, Albumin3.6, Globulin 4.1, Lipase 43 07/06/23 04:30: Urine Color Yellow, Urine Clarity Clear, Urine pH 5.0, Ur Specific Bryce 1.010, Urine Protein Negative, Urine Glucose (UA) Normal, UrineKetones Negative, Urine Occult Blood Negative, Urine Nitrite Negative, Urine Bilirubin Negative, Urine Urobilinogen Normal, Ur Leukocyte Esterase 25 H, UrineRBC 0 SEEN, Urine WBC 0-5 SEEN, Ur Squamous Epith Cells 0-5 SEEN, Urine Bacteria0 SEEN, Urine Mucus 0 SEEN 07/06/23 06:15: WBC 5.8, RBC 4.02 L, Hgb 12.3, Hct 36.9 L, MCV 91.8, MCH 30.6, MCHC 33.3, RDW Std Deviation 49.8 H, RDW Coeff of Francisco 14.6, Plt Count 58 L, MPV 12.9 H, Immature Gran % (Auto) 0.300, Neut % (Auto) 75.3 H, Lymph % (Auto) 14.9 L, [place] % (Auto) 6.9, Eos % (Auto) 1.9, Baso % (Auto) 0.7, Absolute Neuts (auto)Not Reportable, Sodium 134 L, Potassium 6.0 H*, Chloride 111 H, Carbon Dioxide 20.0 L, Anion Gap 3 L, BUN 29 H, Creatinine 2.65 H, Estim Creat Clear Calc 20.41, Est GFR (MDRD) Af Amer 23 L, Est GFR (MDRD) Non-Af 19 L, BUN/Creatinine Ratio 10.9, Glucose 125 H, Lactic Acid 1.0, Calcium 7.7 L, Phosphorus 2.6, Magnesium 2.0, Total Bilirubin 1.30 H, AST 57 H, ALT 46, Alkaline Phosphatase 157 H, Total Protein 6.6, Albumin 3.2, Globulin 3.4, Albumin/Globulin Ratio 0.9 07/06/23 08:30: Sodium 138, Potassium 6.1 H*, Chloride 113 H, Carbon Dioxide 20.0 L, Anion Gap 5, BUN 30 H, Creatinine 2.75 H, Estim Creat Clear Calc 19.67, Est GFR (MDRD) Af Amer 22 L, Est GFR (MDRD) Non-Af 18 L, BUN/Creatinine Ratio 10.9, Glucose 113 H, Calcium 7.7 L Micro: Microbiology 07/06/23 04:30 Stool Stool Occult Blood (LIZBETH) - Final Radiography Diagnostic Testing: Radiology Impression Acute Abdomen Series 07/06/23 03:02 IMPRESSION: 1. Cardiomegaly and mild pulmonary congestion. 2. No obvious acute intra-abdominal disease. Electronically Signed: Jackeline Zamudio MD at 5:40 EDT Reading Location ID and State: [facility] / [place] , Service support , Abdomen/Pelvis CT 07/06/23 04:16 IMPRESSION: * Findings compatible with ascending colitis. Portal colopathy could also have this appearance, however the pericolic fat stranding suggests an infectious or inflammatory etiology. * Pancolonic diverticulosis without evidence of diverticulitis. * Cirrhosis. Electronically Signed: Stephanie Conde MD at 5:08 EDT Reading Location ID and State: [facility] / [place] Tel , Service support , Physical Exam Const alert, oriented x3, no apparent distress and healthy appearing General Appearance: cooperative, well kempt and well developed Orientation / Consciousness: awake, oriented to person, oriented to place and oriented to time HEENT normocephalic, head/scalp atraumatic and moist oral mucous membranes Eyes PERRL, EOMs intact bilaterally and conjunctivae normal Neck supple, no JVD, thyroid normal and no carotid bruits General: trachea midline Resp normal respiratory effort, no retractions, no use of accessory muscles and clearto auscultation bilaterally Auscultation: Negative for rales, rhonchi or wheezes Cardio regular rate, regular rhythm, S1 normal heart sound, S2 normal heart sound, no murmurs, no rub and no gallops GI normal to inspection, nondistended, normoactive bowel sounds, soft to palpation,non-tender and non-distended Extremity no clubbing, cyanosis or edema Skin no rashes or lesions noted General Skin Exam: no breakdown Neuro oriented x3, CN's II-XII intact bilaterally, moves all extremities, no focal motor deficits and no sensory deficits noted Sensorium / Orientation: awake, alert, oriented to person, oriented to place andoriented to time Speech: speech normal Psych affect normal Assessment & Plan Assessment/Plan (1) Nausea vomiting and diarrhea: PLAN: Plan 1. Acute kidney injury-I will continue to administer fluids to the patient, if her creatinine has not changed appreciably tomorrow, I will order a renal ultrasound and have nephrology see the patient. #2 episode of hematemesis yesterday-etiology unclear, I have decided to have gastroenterology see the patient, I believe she would benefit from an EGD. #3 colitis as indicated by patient's CT scan-patient unfortunately does not havethe symptomology for colitis at this time, I have elected to keep her on IV antibiotics for now and reevaluate her. She may ultimately need an outpatient colonoscopy. #4 type 2 diabetes-patient's blood sugars will be monitored, sliding scale insulin will be given to the patient, she is on glipizide and metformin as an outpatient #5 chronic intermittent diarrhea-patient states that she had diarrhea over the last several weeks, she has been on metformin for longer than that however so I think it is unlikely the metformin could be causing her symptomology. It is possible this patient may have microscopic colitis but the patient's CT reads out evidence of colitis. Again patient may need an outpatient colonoscopy to resolve this issue. #6 hyperkalemia-etiology unclear at this point, I repeated the patient's BMP this morning and it reveals an elevated potassium-I have elected to give the patient a single dose of Kayexalate and recheck her BMP tomorrow morning, patient is being monitored. Total clinical time spent by myself addressing the patient's medical issues, reviewing all of her data, and collaborating with patient's care team: 50 minutes Charges/Coding Visit Charges Inpatient E&M: 68493 [facility] 07/06/231827 <Electronically signed by Myrna Delgado DO> Cosigner Signature (if applicable): CC: ~ Signed [facility] Work Phone: 1(704) 541-100304-23-2024 Telephone encounter Note* Telephone Encounter - Albina Garrison LPN - 07/06/2023 12:18 PM EDT labs rec'd via fax. To pcp to review. Although will try to make contact with pt when she is d/c from [facility] for a hospital follow up. [facility]04-23-2024 Miscellaneous Notes* Telephone Encounter - Albina Garrison LPN - 07/06/2023 12:18 PM EDT labs rec'd via fax. To pcp to review. Although will try to make contact with pt when she is d/c from [facility] for a hospital follow up. * Telephone Encounter - Cassius Ayers RN - 07/06/2023 10:41 AM EDT Daughter, Ingris, reports patient missed her appt today because she was seen in [facility] ER and admitted to ICU. Ingris is faxing the lab results to pcp. Reports patient was admitted for several reasons, including colitis, and kidney fx at 25%. Reports Dr. Marie will see patient today in the ICU. [facility] Telephone encounter Note * Telephone Encounter - Cassius Ayers RN - 07/06/2023 10:41 AM EDT Daughter, Ingris, reports patient missed her appt today because she was seen in [facility] ER and admitted to ICU. Ingris is faxing the lab results to pcp. Reports patient was admitted for several reasons, including colitis, and kidney fx at 25%. Reports Dr. Marie will see patient today in the ICU. [facility]04-23-2024 History and physical note Author Stephanie Han [facility] July 06, 2023 6:04am Note Date/Time July 06, 2023 4:[address] [facility] Medical Records Department [address] [place] [id number] H&P Exam - Hospitalist 07/06/23 0416 MR#: [id number] Acct: [id number] Name: MACY MORALES Rep #:[id number] : 1955 67 From: Stephanie Apodaca DO PCP: Dr. Elder Reddy MD Status:A DM IN Location: ICU ICU06-1 HPI - General General Date of Admission: 07/06/23 Date of Service: 07/06/23 Chief Complaint: Nausea, Vomiting and Diarrhea. 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 Ms. Morales speaks English only but her daughter was present at the bedside in the ER to augment the history. According to the patient's daughter her according to the patient's daughter her symptoms have been ongoing for quite some time but when they noticed streaks of bright red blood in her emesis earlier today they decided to come in for further evaluation and treatment. The patient denies a history of a bleeding disorder or being on blood thinners but she was diagnosed with thrombocytopenia more than 1 year ago a platelet count of 60 at that time. They deny any blood in her stools or vomiting of gross blood, coffee-ground emesis or tarry-black stools. Upon further questioning her daughter also deniesa history of the patient having previously underwent EGD. The daughter is also not sure when is the last time her kidney function was checked but her kidney function was normal on her last admission here more than 1 year ago but she is notably on lisinopril, glipizide and metformin. She denies associated fever, chills, sore throat, myalgias, abdominal pain or chest pain but she does admit to frequent headaches. In the ER she was noted to have a CT scan of the abdomenand pelvis without contrast suspicious for evidence of ascending colitis in the setting of known fatty liver disease with mild hyperbilirubinemia of 1.3 mg/dL, elevated AST of 67 U/L and alkaline phosphatase of 197 U/L present on admission complicated by nausea and vomiting with bilious emesis and blood streaking plus nonbloody diarrhea likely causing dehydration compounded by laboratory evidence of severe renal failure (likely acute) with an elevated serum creatinine of 2.88mg/dL and a BUN of 30 mg/dL present on admission (up from her baseline serum creatinine of 0.52 mg/dL and BUN of 8 mg/dL last admission) likely due at least in part to adverse drug reaction to lisinopril exacerbated by toxic side effectsto metformin and glipizide that are contraindicated in cases of significant kidney failure with estimated GFR less than 30 mL/min in addition to compounded by dehydration along with chronic thrombocytopenia with platelet count of 59 present on admission and she was then admitted to the general medical floor under telemetric monitoring for stay that is expected to be greater than 48 hours. [facility] Medical History Diabetes Facial droop History of hypertension HTN (hypertension) Thrombocytopenia Home Medications glipizide 2.5 mg tablet, extended release 24 hr 2.5 mg PO DAILY diabetes 06/01/22 [History Last Taken Unknown] metformin 500 mg tablet,extended release 24 hr 1,000 mg PO BID diabetes 06/01/22[History Last Taken Unknown] alendronate 70 mg tablet 70 mg PO QWEEK 07/06/23 [History Last Taken Unknown] atorvastatin 20 mg tablet 20 mg PO DAILY 07/06/23 [History Last Taken Unknown] carvedilol 6.25 mg tablet 6.25 mg PO BID 07/06/23 [History Last Taken Unknown] lisinopril 20 mg tablet 20 mg PO DAILY 07/06/23 [History Last Taken Unknown] Allergy/AdvReac Type Severity Reaction Status Date / Time No Known Allergies Allergy Verified 07/06/23 02:41 Family History Other CVA (cerebral vascular accident) Hypertension Social History Smoking Status: Never smoker ROS ROS Narrative Review of systems: General: Patient denies fevers or chills. HENT: Denies headache, denies stuffy nose, denies sore throat EYES: Denies changes in vision or discharge from eyes. Resp: Denies cough, denies shortness of breath Cardiac: Denies chest pain, palpitations or heart racing. GI: Patient admits to nausea, bilious emesis with blood streaking and nonbloody diarrhea but she denies abdominal pain, melena or hematemesis as per HPI. : Denies changes in urination Extremity: Denies swelling Musculoskeletal: Patient denies arthralgias or myalgias. Neuro: Patient admits to frequent headaches but she denies paresthesias or focalneurologic deficits. Heme: Patient admits to blood streaking in her emesis as per HPI. Skin: Denies rashes Psychiatric: No complaints voiced related to uncontrolled depression or anxiety Endocrine: No polyuria, polydipsia or polyphagia. The rest of the 14 point ROS was negative except for positives in HPI. Vital Signs Vital Signs Vital Signs: 07/06/23 02:38 Temperature 97.2 F L Temperature Source Temporal Pulse Rate 91 Respiratory Rate 18 Blood Pressure 154/67 H Blood Pressure Mean 96 Pulse Ox 100 Oxygen Delivery Method Room Air Weight Weight: 186 lb 4.65 oz Body Mass Index (BMI) 36.3 Physical Exam Const alert, oriented x3 and no apparent distress Constitutional Narrative: Patient is obese. General Appearance: cooperative HEENT normocephalic, head/scalp atraumatic and hearing grossly normal bilaterally HEENT Narrative: Mucous membranes dry. Eyes PERRL and EOMs intact bilaterally Neck no lymphadenopathy and supple Resp normal respiratory effort, no retractions, no use of accessory muscles and clearto auscultation bilaterally Cardio regular rate and regular rhythm GI normal to inspection, nondistended, normoactive bowel sounds, soft to palpation,non-tender and non-distended Extremity normal to inspection and full ROM Skin Skin Narrative: Patient has no evidence of jaundice or rash. Neuro oriented x3, CN's II-XII intact bilaterally, moves all extremities and no focal motor deficits Sensorium / Orientation: awake, alert, oriented to person, oriented to place andoriented to time Speech: speech normal Motor Exam: strength 5/5 throughout Psych affect normal Results Medical Records Data Attestation: I reviewed the patient's medical records Lab / Micro Data Attestation: I reviewed the patient's lab results. 07/06/23 02:46 07/06/23 02:46 Labs: Laboratory Results - last 24 hr 07/06/23 02:46: WBC 6.0, RBC 4.34, Hgb 13.1, Hct 39.6, MCV 91.2, MCH 30.2, MCHC 33.1, RDW Std Deviation 49.2 H, RDW Coeff of Francisco 14.6, Plt Count 59 L, MPV 12.4 H, Immature Gran % (Auto) 0.500, Neut % (Auto) 65.4, Lymph % (Auto) 19.0, [place] %(Auto) 11.1 H, Eos % (Auto) 3.7, Baso % (Auto) 0.3, Absolute Neuts (auto) 3.9, Absolute Lymphs (auto) 1.13, Nucleated RBC % 0, PT 14.4, INR 1.1, APTT 36.7 H, Sodium 135 L, Potassium 4.8, Chloride 108 H, Carbon Dioxide 21.0, Anion Gap 6, BUN 30 H, Creatinine 2.88 H, Estim Creat Clear Calc 18.78, Est GFR (MDRD) Af Amer 21 L, Est GFR (MDRD) Non-Af 17 L, BUN/Creatinine Ratio 10.4, Glucose 116 H,Calcium 8.4 L, Total Bilirubin 1.30 H, Direct Bilirubin 0.55 H, AST 67 H, ALT 52, Alkaline Phosphatase 197 H, Total Protein 7.7, Albumin 3.6, Globulin 4.1, Lipase 43 Imaging [facility] Imaging Services [address] [place] [address] Abdomen/Pelvis without Cont MR#: [id number] Acct: [id number] Name: MACY MORALES Rep #: [id number] : 1955 F 67 From: Stephanie Conde MD PCP: Dr. Elder Reddy MD Status: ADM IN Study: Abdomen/Pelvis without Cont Date of Exam: 07/06/23 Exam# [id number] Ordering Dr: Mayo Mccullough DO INDICATION: abd pain EXAMINATION: CT ABDOMEN AND PELVIS WITHOUT CONTRAST - CT Abdomen And Pelvis W/O Contrast Injection TECHNIQUE: Helically acquired images were obtained of the abdomen and pelvis without oral or IV contrast. A radiation dose optimization technique was used for this scan. IV Contrast dosage and agent: None. Oral contrast: None. RADIATION DOSAGE (If Supplied By Facility): CTDIvol = ( 17.28 ) mGy, DLP = ( 785.80 ) mGycm COMPARISON: No relevant prior comparison study available FINDINGS: LOWER CHEST: Lung bases are clear. No cardiomegaly or pericardial effusion. LIVER: Morphologically cirrhotic liver. No focal mass. GALLBLADDER AND BILIARY TREE: The gallbladder is normally distended. No gallstones. No gallbladder wall thickening or edema. No intra- or extrahepatic biliary ductal dilation. PANCREAS: Fatty atrophy. No pancreatic mass or inflammation. SPLEEN: Normal size without focal cystic or solid mass. ADRENAL GLANDS: No nodules. KIDNEYS AND URETERS: Normal renal size and position. No hydronephrosis or nephrolithiasis. PERITONEUM: Trace perihepatic ascites. No free air. BOWEL: Edematous wall thickening of the ascending colon with mild pericolic fat stranding. Pancolonic diverticulosis without evidence of diverticulitis. Stomach and small bowel unremarkable. No evidence of acute appendicitis. LYMPH NODES: No enlarged mesenteric or retroperitoneal lymph nodes. VESSELS: Aorta is non-dilated. URINARY BLADDER: Unremarkable. REPRODUCTIVE ORGANS: No pelvic masses. ABDOMINAL WALL: No discrete abdominal or pelvic wall hernia. BONES: No acute or suspicious osseous abnormality. CT/Abdomen/Pelvis without Cont IMPRESSION: * Findings compatible with ascending colitis. Portal colopathy could also have this appearance, however the pericolic fat stranding suggests an infectious or inflammatory etiology. * Pancolonic diverticulosis without evidence of diverticulitis. * Cirrhosis. Electronically Signed: Stephanie Conde MD at 5:08 EDT Reading Location ID and State: [facility] / [place] Tel , Service support , CC: Dr. Elder Reddy MD; Mayo Mccullough DO ~ Equipment Superintendent: Signed Assessment & Plan Assessment/Plan (1) Acute renal failure: QUALIFIERS: Acute renal failure type: unspecified Qualified Code(s): N17.9 - Acute kidney failure, unspecified (2) Nausea vomiting and diarrhea: (3) Adverse drug reaction: QUALIFIERS: Encounter type: initial encounter Qualified Code(s): T50.905A - Adverse effect of unspecified drugs, medicaments and biological substances, initial encounter (4) Hyperbilirubinemia: (5) Fatty liver disease, nonalcoholic: (6) Thrombocytopenia: PLAN: Plan 1. CT scan on admission suspicious for ascending colitis in the setting of known fatty liver disease with mild hyperbilirubinemia of 1.3 mg/dL, elevated AST of 67 units/L and alkaline phosphatase of 197 units/L present on admission -Admit to general medical floor. Start broad-spectrum antibiotics with IV Zosyn to cover gram-negative's and anaerobes associated with colitis and await cultureand sensitivity data. Also checking hepatitis profile to expand workup. Finally, we will avoid potentially hepatotoxic agents such as Tylenol. Finally,we will consult Dr. Marie of gastroenterology to see this patient on rounds in the a.m. for further recommendations without appreciated advance. 2. Nausea and vomiting with primarily bilious emesis with minimal blood streaking and nonbloody diarrhea with suspected component of dehydration due to #1 - Place on enteric and aspiration precautions. Give IV Protonix 40 mg twice daily. Give Zofran IV as needed for nausea or vomiting. Check stool studies: C. difficile A&B toxin PCR, stool ova and parasites, fecal white blood cells andHemoccult. Keep n.p.o. except for ice chips, sips and medications. Otherwise, continue supportive care and monitor for improvement. 3. Elevated creatinine of 2.88 mg/dL with a BUN of 30 mg/dL present on admission consistent with suspected acute renal failure likely due at least on part to an Adverse Drug Reaction to Lisinopril complicating #1 & #2 - Give vigorous IV volume resuscitation and recheck BMP to positive response to therapy. Checked CT scan of the abdomen pelvis to evaluate renal anatomy look for evidence of chronic disease and/or obstruction which was unrevealing. Avoid potentially nephrotoxic agents. Finally, due to severity of patient's acute renal failure we will consult windchill administrator on- call to see patient on rounds in the a.m. further recommendations with help appreciated in advance. 4. Chronic thrombocytopenia with platelet count of 59 present on admission adding to the pathology of #1 - #3 - Check CBC daily to ensure continued stability. Avoid heparin or heparinoid's with platelet count less than 100. 5. DM-2; of unknown control on Metformin and Glipizide - Stop metformin and glipizide with acute renal failure contraindicating the use of both of these agents. Give ice chips, sips and medications only. Fingerstick blood sugars every 6 hours plus lowest intensity sliding scale insulin. Check lactate level to rule out lactic acidosis. Also check hemoglobin A1c to objectively evaluate quality of diabetic control. 6. 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 7. Essential hypertension - Hold scheduled antihypertensives and give IV hydralazine as needed for systolic blood pressure greater than 160 mmHg. 8. Hyperlipidemia - Consider restarting statin when patient is able to tolerateoral intake and liver function tests normalize. 9. Obesity; with BMI of 36.4 this admission - Weight loss will be recommended. 10. OA - Stable. 11. DVT prophylaxis - SCD's only in light of #4 with thrombocytopenia contraindicating use of both heparin and heparinoids. Total time: Approximately 75 minutes. Charges/Coding Visit Charges Inpatient E&M: 64989 Init Hosp L3 07/06/23 0604 <Electronically signed by Stephanie Gong DO> Cosigner Signature (if applicable): CC: Dr. Stephanie Gong DO; Dr. Elder Reddy MD~ Signed [facility] Work Phone: 1(168) 772-515804-23-2024 Discharge summary Author Mayo Nealeriberto [facility] July 06, 2023 5:05am Note Date/Time July 06, 2023 4:[address] [facility] Medical Records Department [address] [place] [address] Emergency Department Summary 07/06/23 MR#: [id number] Acct: [id number] Name: MACY MORALES Rep #:[id number] : 1955 67 From: Mayo Mccullough DO PCP: Dr. Elder Reddy MD Status:A DM IN Location: ICU ICU06-1 HPI History of Present Illness Chief Complaint: GI Bleed Informant: patient and family Narrative Narrative: Patient is a English-speaking 67-year-old female whose daughter interprets with past medical history of hypertension hyperlipidemia and diabetes. Daughter states that the patient will have intermittent bouts of nausea vomiting and diarrhea for no apparent reason and it has been this way for quite some time. Daughter states that the patient had her bout of vomiting and diarrhea today however in her emesis she had streaks of bright red blood. Patient does not have a history of bleeding disorder nor she on a blood thinner but daughter reports she does have low platelets. They state the blood is not normal for her and secondary to this she was brought in for evaluation. Patient denies anyblood per rectum and states there is no abdominal pain at this time [facility] Medical History Diabetes Facial droop History of hypertension HTN (hypertension) Thrombocytopenia Home Medications glipizide 2.5 mg tablet, extended release 24 hr 2.5 mg PO DAILY diabetes 06/01/22 [History Last Taken Unknown] metformin 500 mg tablet,extended release 24 hr 1,000 mg PO BID diabetes 06/01/22[History Last Taken Unknown] alendronate 70 mg tablet 70 mg PO QWEEK 07/06/23 [History Last Taken Unknown] atorvastatin 20 mg tablet 20 mg PO DAILY 07/06/23 [History Last Taken Unknown] carvedilol 6.25 mg tablet 6.25 mg PO BID 07/06/23 [History Last Taken Unknown] lisinopril 20 mg tablet 20 mg PO DAILY 07/06/23 [History Last Taken Unknown] Allergy/AdvReac Type Severity Reaction Status Date / Time No Known Allergies Allergy Verified 07/06/23 02:41 Family History Other CVA (cerebral vascular accident) Hypertension Social History Smoking Status: Never smoker ROS ROS ED Constitutional Constitutional ED: Denies chills or fever(s) Eyes Eyes: Denies change in vision ENT ENT ED: Denies sore throat Cardiovascular Cardiovascular: Denies chest pain Respiratory/Chest Respiratory/Chest: Reports cough; Denies dyspnea Gastrointestinal Gastrointestinal: Reports diarrhea, nausea and vomiting; Denies abdominal pain or melena Genitourinary Genitourinary ED: Denies dysuria or hematuria Musculoskeletal Musculoskeletal: Denies myalgias Integumentary Denies rash Neurologic Neurologic: Denies headache(s) Hematologic/Lymphatic Hematologic/Lymphatic: Denies easy bleeding or easy bruising EXAM Physical Exam Const Vital Signs: 07/06/23 02:38 07/06/23 04:20 Temperature 97.2 F L 98 F Temperature Source Temporal Pulse Rate 91 90 Respiratory Rate 18 16 Blood Pressure 154/67 H 116/95 H Blood Pressure Mean 96 102 Pulse Ox 100 99 Oxygen Delivery Method Room Air Positive well nourished, well developed and obese General Appearance ED: well developed; Negative for pallor Nutritional Appearance: obese HEENT Reports moist mucous membranes HEENT Narrative: No tongue or lip swelling no oral lesions no airway edema or compromise No signs of infection noted in the posterior pharynx No dried blood or active bleeding noted Eyes PERRL and EOMs intact bilaterally General Eye ED: Negative for pale conjunctiva or scleral icterus Neck supple Neck Narrative: No crepitance palpated throughout the neck and no pain with external manipulation of the thyroid cartilage Resp normal respiratory effort and clear to auscultation bilaterally Resp Narrative: No nasal flaring retractions tachypnea or accessory muscle use Cardio regular rate and regular rhythm Rate: other Other Details: Heart is regular rate and rhythm without murmurs rubsor gallop Radial and carotid pulses are equal and symmetric GI normal to inspection, nondistended, normoactive bowel sounds, non-tender, non-distended and no masses GI Narrative: Abdomen is soft nontender and nondistended with normal active bowel sounds. No voluntary guarding or rigidity No pulsatile mass or fluid wave No organomegaly noted Auscultation: normoactive bowel sounds Palpation: soft Narrative: No external hemorrhoid or anal fissure noted. Rectal tone is normal and stool is dark brown in color and Hemoccult negative. No internal masses palpated Extremity normal to inspection Extremity Narrative: No asymmetric edema no pitting edema negative Homans' sign bilaterally Neuro oriented x3, CN's II-XII intact bilaterally and no sensory deficits noted Sensorium / Orientation: alert Motor Exam: strength 5/5 throughout Psych mental status grossly normal Skin no rashes or lesions noted, no wounds and skin turgor normal General Skin Exam: Negative for jaundice or pallor MDM MDM MDM Narrative Medical decision making narrative: Patient presented to the ER slightly hypertensive otherwise with stable vitals. Patient and daughter reported that nausea vomiting diarrhea are recurrent problem for the patient and that the only reason they are here is because she had a small amount of blood in the emesis which is new for her. Differential diagnosis is potential for upper GI bleed versus Boerhaave syndrome versus acuteblood loss anemia versus thrombocytopenia. Her abdomen is soft and nonsurgical so I felt no need for a CT scan elected to perform acute abdominal series with 1view chest in order to ensure there is no free air or perforation. Lab work shows stable H&H and platelets are low consistent with history but near baselineof 60. However patient does have elevation to her BUN and creatinine compared to labs from almost 1 year ago indicating acute kidney injury. Secondary to this lab finding bladder scan was performed which revealed no signs of retention. However as patient now has acute kidney injury and it is unsure why as it could be related to medication such as metformin or lisinopril or potential renal mass medicine was contacted to discuss admission. Hospitalist recommends a noncontrast CT of the abdomen and pelvis to check for potential internal anatomy issues such as hydroureteronephrosis or changes to the renal anatomy or renal masses. Therefore this was ordered and patient was kept on IV fluids. She has remained hemodynamically stable but based on the VIKA she will be kept in the hospital for further care. History & Record Review Discussion w/independent historian: Patient and Family Lab Data Attestation: I reviewed the patient's lab results. Labs: Laboratory Results - last 24 hr 07/06/23 02:46 WBC 6.0 RBC 4.34 Hgb 13.1 Hct 39.6 MCV 91.2 MCH 30.2 MCHC 33.1 RDW Std Deviation 49.2 H RDW Coeff of Francisco 14.6 Plt Count 59 L MPV 12.4 H Immature Gran % (Auto) 0.500 Neut % (Auto) 65.4 Lymph % (Auto) 19.0 [place] % (Auto) 11.1 H Eos % (Auto) 3.7 Baso % (Auto) 0.3 Absolute Neuts (auto) 3.9 Absolute Lymphs (auto) 1.13 Nucleated RBC % 0 PT 14.4 INR 1.1 APTT 36.7 H Sodium 135 L Potassium 4.8 Chloride 108 H Carbon Dioxide 21.0 Anion Gap 6 BUN 30 H Creatinine 2.88 H Estim Creat Clear Calc 18.78 Est GFR (MDRD) Af Amer 21 L Est GFR (MDRD) Non-Af 17 L BUN/Creatinine Ratio 10.4 Glucose 116 H Calcium 8.4 L Total Bilirubin 1.30 H Direct Bilirubin 0.55 H AST 67 H ALT 52 Alkaline Phosphatase 197 H Total Protein 7.7 Albumin 3.6 Globulin 4.1 Lipase 43 Radiography Diagnostic Testing: Acute abdominal series with 1 view chest as interpreted by the emergency medicine physician reveals a nonspecific nonobstructive bowel gas pattern without free air/perforation. Chest x-ray component reveals no acute infiltratepneumothorax or pleural effusion Management Discussion w/another healthcare provider: Hospitalist Discharge Plan Dx/Rx/DC Orders Clinical Impression: Acute kidney injury, Thrombocytopenia, Nausea vomiting and diarrhea Disposition Disposition: Acute Care Hospital [facility] What to do if you have Problems For any increased pain, shortness of breath, bleeding, nausea or vomiting, chestpain, or any unexpected problems, contact your Primary Care Provider. Call [facility] ([phone]) or report to the closest Emergency Room. Call 911 if necessary. 07/06/23 0505 <Electronically signed by Mayo Mccullough DO> Cosigner Signature (if applicable): CC: Dr. Elder Reddy MD ~ Signed [facility] Work Phone: 1(682) 435-996904-22-2024 Telephone encounter Note* Telephone Encounter - Serena Ramirez RN - 07/05/2023 8:20 AM EDT Patient's daughter Ingris calls and states that patient had molars pulled out last Wednesday. Daughter reports that patient has had issues with molars bleeding since procedure. Daughter calling to schedule appointment with provider. Advised daughter that she needs to call dentist and let dentist knowwhat is going on so that dentist can look into patient's mouth and fix situation. Daughter reports t hat patient is supposed to be getting more dental work done that she does not want to get done. Daughter is concerned because patient has a low platelet count history and wants to schedule appointment with PCP. Appointment scheduled tomorrow however explained to daughter that dentist needs to be called. Daughter voiced understanding. Serena Ramirez RN [facility]04-22-2024 Miscellaneous Notes* Telephone Encounter - Serena Ramirez RN - 07/05/2023 8:20 AM EDT Patient's daughter Ingris calls and states that patient had molars pulled out last Wednesday. Daughter reports that patient has had issues with molars bleeding since procedure. Daughter calling to schedule appointment with provider. Advised daughter that she needs to call dentist and let dentist knowwhat is going on so that dentist can look into patient's mouth and fix situation. Daughter reports t hat patient is supposed to be getting more dental work done that she does not want to get done. Daughter is concerned because patient has a low platelet count history and wants to schedule appointment with PCP. Appointment scheduled tomorrow however explained to daughter that dentist needs to be called. Daughter voiced understanding. Serena Ramirez RN documented [facility]16[facility] Instructions* Patient Instructions* Cherie Cabello DO - 06/29/2023 4:23 PM EDT Please get blood work done Ultrasound of your liver in 6 months Work on losing weight with a goal of 178 lbs for next visit Focus on eating a Mediterranean diet Start taking Coreg 6.25 mg twice daily and monitor your BP documented in this encounterM[facility]04-16-[facility]24 NoteHNO ID: [id number] Author: CECILIA POWERS MD Service: ? Author Type: Physician Type: Progress Notes Filed: 06/30/2023 10:07 Note Text: [id number] HPI: Macy Morales is a 67 year old female is here on follow up for abnormal liver enzymes. Complications of liver disease include none. --PMHx of type 2 diabetes, hypertension, hypercholesterolemia, abnormal liver enzymes, elevated TSH and prior right-sided Dover's palsy. --Initially seen by Dr. Powers on 10/06/22 presents for evaluation of abnormal liver enzymes and thrombocytopenia. Since last visit: --RUQ US: Coarse hepatic echotexture with mildly nodular hepatic contour suspect for cirrhosis. --JACINTO, Antimitochondrial AB, SM AB negative --Fibroscan: FS =34.3 kPA. The CAP score is 274 and corresponds to steatosis grade of S2. This reading corresponds: A 17% chance of stage 0-2 fibrosis A 83% chance of stage 3-4 fibrosis (advanced fibrosis) A 61% chance of stage 4 fibrosis (cirrhosis). Spleen top normal in size. REVIEW OF SYSTEMS GENERAL: No unexplained weight changes or fevers. HEENT: Negative for severe headaches, negative for changes in hearing or vision. RESPIRATORY: Negative for coughing, wheezing or significant dyspnea. CARDIOVASCULAR: Negative for chest pain or heart palpitations. GASTROINTESTINAL: Negative for rectal bleeding or black tarry stools. Current Outpatient Medications Medication Sig Dispense Refill albuterol HFA (PROVENTIL HFA, VENTOLIN HFA) 90 mcg/actuation inhaler Inhale 2 Puffs as instructed every 4 hours as needed for wheezing/shortness of breath. 1 Each 0 albuterol (PROVENTIL) 2.5 mg /3 mL (0.083 %) nebulizer solution Use 3 mL via nebulizer every 4 hours as needed for wheezing/shortness of breath. Use over 5-15minutes. 3 mL 0 atorvastatin (LIPITOR) 20 mg tablet Take 1 tablet by mouth daily at bedtime. For cholesterol. 90 tablet 3 metFORMIN ER (GLUCOPHAGE XR) 500 mg 24 hr tablet Take 2 tablets by mouth two times a day with meals. 360 tablet 3 glipiZIDE (GLUCOTROL XL) 2.5 mg 24 hr tablet Take 1 tablet by mouth once daily. [address] (PROTONIX) 40 mg tablet Take 1 tablet by mouth once daily as needed. 90 tablet 3 lisinopril (ZESTRIL) 20 mg tablet Take 1 tablet by mouth once daily. 90 tablet 3 alendronate (FOSAMAX) 70 mg tablet Take 1 tablet by mouth one time a week. Take with a full glass of water, on an empty stomach; do NOT lie down for 30minutes. 12 tablet 3 blood sugar diagnostic (TRUE METRIX GLUCOSE TEST STRIP) test strip Test blood sugar(s) 1 times daily. Dx: Type 2 DM - Controlled E11.9 Insulin: No 100 Strip 3 clotrimazole-betamethasone (LOTRISONE) cream Apply to affected area twice daily as needed. 45 g 2 No current facility-administered medications for this visit. ALLERGIES No Known Allergies Social History Tobacco Use Smoking status: Never Passive exposure: Never Smokeless tobacco: Never Vaping Use Vaping Use: Never used Substance Use Topics Alcohol use: Not Currently Drug use: Not Currently 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 Conductive hearing loss of right ear with unrestricted hearing of left ear 11/30/2022 Controlled type 2 diabetes mellitus without complication, without long-term current use of insulin ([facility]) 04/28/2021 COVID-19 02/05/2020 Obesity, Class II, BMI 35-39.9 07/23/2021 Primary hypertension 07/23/2021 Pure hypercholesterolemia 11/10/2019 @SHX@ FAMILY HISTORY Problem Relation Age of Onset No Known Problems Father Aneurysm Mother Cancer Brother No Known Problems Maternal Grandmother No Known Problems Maternal Grandfather No Known Problems Paternal Grandmother No Known Problems Paternal Grandfather No Known Problems Child No Known Problems Child No Known Problems Child Glaucoma No Family History Macular Degen No Family History PHYSICAL EXAM BP 134/54 Pulse 84 Temp (Src) 97.6 (Temporal) Ht 5' 0 (1.52m) Wt 186 lb 1.1 oz (84.4kg) SpO2 98% BMI 36.34 kg/(m2). General Appearance: Well appearing, alert, in no acute distress, well-hydrated, well nourished. Eyes: PERRLA, conjunctiva and sclera normal Oropharynx: Lips, tongue, and oral mucosa normal. There is no thrush or oral ulcers. Lungs:breath sounds clear to auscultation bilaterally, no crackles, rhonchi, or wheezes Heart: regular rate and rhythm, no murmurs or gallops. Abdomen: not distended, normal bowel sounds, soft and depressible, no guarding or rebound, no palpable mass, no organomegaly Extremities: no cyanosis or edema Skin: no jaundice, no spider angiomas, no palmar erythema Neuro:alert, oriented x 3, pleasant and in no acute distress Recent Labs: Hemoglobin (g/dL) Date Value 09/21/2022 13.9 Hematocrit (%) Date Value 09/21/2022 42.3 WBC (k/uL) Date Value 09/21/2022 4.17 Glucose (mg/dL) Date Value 07/13/2022 97 Potassium (more content not included)...[facility]04-16-2024 History of Present illness Narrative* Cecilia Powers MD - 06/29/2023 3:40 PM EDT FOLLOW-UP VISIT NAME: Macy Morales [facility] NO: [id number] HPI: Macy Morales is a 67 year old female is here on follow up for abnormal liver enzymes. Complications of liver disease include none. --PMHx of type 2 diabetes, hypertension, hypercholesterolemia, abnormal liver enzymes, elevated TSHand prior right-sided Dover's palsy. --Initially seen by Dr. Powers on 10/06/22 presents for evaluation of abnormal liver enzymes and thrombocytopenia. Since last visit: --RUQ US: Coarse hepatic echotexture with mildly nodular hepatic contour suspect for cirrhosis. --JACINTO, Antimitochondrial AB, SM AB negative --Fibroscan: FS =34.3 kPA. The CAP score is 274 and corresponds to steatosis grade of S2. This reading corresponds: A 17% chance of stage 0-2 fibrosis A 83% chance of stage 3-4 fibrosis (advanced fibrosis) A 61% chance of stage 4 fibrosis (cirrhosis). Spleen top normal in size. REVIEW OF SYSTEMS GENERAL: No unexplained weight changes or fevers. HEENT: Negative for severe headaches, negative for changes in hearing or vision. RESPIRATORY: Negative for coughing, wheezing or significant dyspnea. CARDIOVASCULAR: Negative for chest pain or heart palpitations. GASTROINTESTINAL: Negative for rectal bleeding or black tarry stools. Current Outpatient Medications Medication Sig Dispense Refill albuterol HFA (PROVENTIL HFA, VENTOLIN HFA) 90 mcg/actuation inhaler Inhale 2 Puffs as instructed every 4 hours as needed for wheezing/shortness of breath. 1 Each 0 albuterol (PROVENTIL) 2.5 mg /3 mL (0.083 %) nebulizer solution Use 3 mL via nebulizer every 4 hours as needed for wheezing/shortness of breath. Use over 5- 15minutes. 3 mL 0 atorvastatin (LIPITOR) 20 mg tablet Take 1 tablet by mouth daily at bedtime. For cholesterol. 90 tablet 3 metFORMIN ER (GLUCOPHAGE XR) 500 mg 24 hr tablet Take 2 tablets by mouth two times a day with meals. 360 tablet 3 glipiZIDE (GLUCOTROL XL) 2.5 mg 24 hr tablet Take 1 tablet by mouth once daily. [address] (PROTONIX) 40 mg tablet Take 1 tablet by mouth once daily as needed. 90 tablet 3 lisinopril (ZESTRIL) 20 mg tablet Take 1 tablet by mouth once daily. 90 tablet 3 alendronate (FOSAMAX) 70 mg tablet Take 1 tablet by mouth one time a week. Take with a full glass of water, on an empty stomach; do NOT lie down for 30minutes. 12 tablet 3 blood sugar diagnostic (TRUE METRIX GLUCOSE TEST STRIP) test strip Test blood sugar(s) 1 times daily. Dx: Type 2 DM - Controlled E11.9 Insulin: No 100 Strip 3 clotrimazole-betamethasone (LOTRISONE) cream Apply to affected area twice daily as needed. 45 g 2 No current facility-administered medications for this visit. ALLERGIES No Known Allergies Social History Tobacco Use Smoking status: Never Passive exposure: Never Smokeless tobacco: Never Vaping Use Vaping Use: Never used Substance Use Topics Alcohol use: Not Currently Drug use: Not Currently 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 Conductive hearing loss of right ear with unrestricted hearing of left ear 11/30/2022 Controlled type 2 diabetes mellitus without complication, without long-term current use of insulin ([facility]) 04/28/2021 COVID-19 02/05/2020 Obesity, Class II, BMI 35-39.9 07/23/2021 Primary hypertension 07/23/2021 Pure hypercholesterolemia 11/10/2019 @SHX@ FAMILY HISTORY Problem Relation Age of Onset No Known Problems Father Aneurysm Mother Cancer Brother No Known Problems Maternal Grandmother No Known Problems Maternal Grandfather No Known Problems Paternal Grandmother No Known Problems Paternal Grandfather No Known Problems Child No Known Problems Child No Known Problems Child Glaucoma No Family History Macular Degen No Family History PHYSICAL EXAM BP 134/54 Pulse 84 Temp (Src) 97.6 (Temporal) Ht 5' 0 (1.52m) Wt 186 lb 1.1 oz (84.4kg) SpO2 98% BMI 36.34 kg/(m^2). General Appearance: Well appearing, alert, in no acute distress, well-hydrated, well nourished. Eyes: PERRLA, conjunctiva and sclera normal Oropharynx: Lips, tongue, and oral mucosa normal. There is no thrush or oral ulcers. Lungs:breath sounds clear to auscultation bilaterally, no crackles, rhonchi, or wheezes Heart: regular rate and rhythm, no murmurs or gallops. Abdomen: not distended, normal bowel sounds, soft and depressible, no guarding or rebound, no palpable mass, no organomegaly Extremities: no cyanosis or edema Skin: no jaundice, no spider angiomas, no palmar erythema Neuro:alert, oriented x 3, pleasant and in no acute distress Recent Labs: Hemoglobin (g/dL) Date Value 09/21/2022 13.9 Hematocrit (%) Date Value 09/21/2022 42.3 WBC (k/uL) Date Value 09/21/2022 4.17 Glucose (mg/dL) Date Value 07/13/2022 97 Potassium (mmol/L) Date Value 07/13/2022 3.8 Sodium (mmol/L) Date Value 07/13/2022 140 Chloride (mmol/L) Date Value 07/13/2022 101 CO2 (mmol/L) Date Value 07/13/2022 27 Creatinine (mg/dL) Date Value 07/13/2022 0.47 BUN (mg/dL) Date Value 07/13/2022 7 Anion Gap (mmol/L) Date Value 07/13/2022 12 Calcium, Total (mg/dL) Date Value 07/13/2022 9.5 Albumin (g/dL) Date Value 07/13/2022 4.4 Bilirubin, Total (mg/dL) Date Value 07/13/2022 1.5 (H) Alkaline Phosphatase (U/L) Date Value 07/13/2022 251 (H) AST (U/L) Date Value 07/13/2022 62 (H) ALT (U/L) Date Value 07/13/2022 43 (H) Protein, Total (g/dL) Date Value 07/13/2022 7.6 MELD 3.0: 10 at 07/13/2022 12:26 PM MELD-Na: 9 at 07/13/2022 12:26 PM Calculated from: Serum Creatinine: 0.47 mg/dL (Using min of 1 mg/dL) at 07/13/2022 12:26 PM Serum Sodium: 140 mmol/L (Using max of 137 mmol/L) at 07/13/2022 12:26 PM Total Bilirubin: 1.5 mg/dL at 07/13/2022 12:26 PM Serum Albumin: 4.4 g/dL (Using max of 3.5 g/dL) at 07/13/2022 12:26 PM INR(ratio): 1.1 at 07/13/2022 12:26 PM Age at listing (hypothetical): 66 years Sex: Female at 07/13/2022 12:26 PM FIB-4 Calculation: 8.4 at 09/21/2022 9:38 AM Calculated from: SGOT/AST: 62 U/L at 07/13/2022 12:26 PM SGPT/ALT: 43 U/L at 07/13/2022 12:26 PM Platelets: 72 k/uL at 09/21/2022 9:38 AM Age: 66 years Last 2 Encounter Wt Readings: Date: Wt: 06/29/2023 84.4 kg (186 lb 1.1 oz) 05/03/2023 84.3 kg (185 lb 12.8 oz) Assessment IMPRESSION 67-year-old female with past medical history of diabetes, hypercholesterolemia, hypertension who isbeing followed in hepatology clinic for concern for cirrhosis. Fib 4 score is highly elevated at 8.4 and she has multiple risk factors for manage old. She denies any EtOH use. Other serologies were negative. She has no signs or symptoms of decompensation. Her weight has been stable since last visit. PLAN - Mediterranean diet and engaging in regular aerobic exercise for weight loss - Continue Vitamin E 800 international unit(s) daily - Starting Coreg 6.25 mg BID, discussed measuring BP at home and monitoring for hypotension symptoms - Discuss the following with PCP: Statin dosing Pharmacologic weight loss agents like GLP-1 agonist if indicated - Offered referral to weight management clinic however patient reluctant at this time - Will recheck metabolic panel and platelet count Follow up in 6 months. Please contact sooner if you have questions or problems develop. Cherie Cabello DO PGY-2, Internal Medicine 06/29/2023 4:00 PM I have seen and evaluated the patient and discussed the case with the resident physician. I agree with the assessment and plan as documented in the resident s note. Cecilia Powers MD [facility]24 NoteHNO ID: [id number] Author: ?, ?, ? Service: ? Author Type: ? Type: Progress Notes Filed: 07/22/2023 03:03 Note Text: Patient has a wellness appointment with Dr. Reddy 08-10-2023 will discuss colonoscopy at that visit. [facility] History of Present illness Narrative* Gaby Jimenez - 06/24/2023 7:45 PM EDT Patient has a wellness appointment with Dr. Reddy 08-10-2023 will discuss colonoscopy at that visit. Gaby Jimenez * Jenny Doyle RN - 06/21/2023 7:51 AM EDT COLONOSCOPY PATIENT OUTREACH Action/FYI Colonoscopy Recall Patient identified by Name and : Yes. --- OUTREACH OUTCOME ACTION: Open Access: Telephone call: Pt is overdue for screening colonoscopy. May proceed as open access. Please call pt to schedule. No prior endoscopy noted. Jenny Doyle RN [facility]04-[facility]-2024 NoteHNO ID: [id number] Author: JENNY DOYLE RN Service: ? Author Type: Registered Nurse Type: Progress Notes Filed: 07/22/2023 03:03 Note Text: COLONOSCOPY PATIENT OUTREACH Action/FYI Colonoscopy Recall Patient identified by Name and : Yes. --- OUTREACH OUTCOME ACTION: Open Access: Telephone call: Pt is overdue for screening colonoscopy. May proceed as open access. Please call pt to schedule. No prior endoscopy noted. [facility] NotePatient Outreach (ASWSTR) MACY MORALES ([id number]) 1955 F [place] Date Time Provider Department 06/21/23 ELDER REDDY During your visit today, we recorded the following information about you: Jenny Doyle RN 07/22/2023 3:03 AM Signed COLONOSCOPY PATIENT OUTREACH Action/ Colonoscopy Recall Patient identified by Name and : Yes. ---- OUTREACH OUTCOME ACTION: Open Access: Telephone call: Pt is overdue for screening colonoscopy. May proceed as open access. Please call pt to schedule. No prior endoscopy noted. PAIGE Garnett Ida 07/22/2023 3:03 AM Signed Patient has a wellness appointment with Dr. Reddy 08-10-2023 will discuss colonoscopy at that visit. Gaby Jimenez Allergies As of Date: 06/21/2023 (No Known Allergies) Date Reviewed: 05/03/2023 Reviewed by: Génesis Salazar LPN - Fully Assessed Reason for Visit: colorectal cancer screening [Other] Prescriptions as of 07/22/2023 - amLODIPine (NORVASC) 5 mg tablet Take 5 mg by mouth once daily. - metoclopramide HCl (REGLAN) 5 mg tablet Take 5 mg by mouth three times a day. - albuterol HFA (PROVENTIL HFA, VENTOLIN HFA) 90 mcg/actuation inhaler Inhale 2 Puffs as instructed every 4 hours as needed for wheezing/shortness of breath. - albuterol (PROVENTIL) 2.5 mg /3 mL (0.083 %) nebulizer solution Use 3 mL via nebulizer every 4 hours as needed for wheezing/shortness of breath. Use over 5-15minutes. - atorvastatin (LIPITOR) 20 mg tablet Take 1 tablet by mouth daily at bedtime. For cholesterol. - pantoprazole DR (PROTONIX) 40 mg tablet Take 1 tablet by mouth once daily as needed. - alendronate (FOSAMAX) 70 mg tablet Take 1 tablet by mouth one time a week. Take with a full glass of water, on an empty stomach; do NOT lie down for 30minutes. - blood sugar diagnostic (TRUE METRIX GLUCOSE TEST STRIP) test strip Test blood sugar(s) 1 times daily. Dx: Type 2 DM - Controlled E11.9 Insulin: No - clotrimazole-betamethasone (LOTRISONE) cream Apply to affected area twice daily as needed. Problem List As Of Date 06/21/2023 Noted Resolved Controlled type 2 diabetes mellitus without com*04/28/2021 Obesity, Class I, BMI 30-34.9 [E66.9] 04/28/2021 07/23/2021 Obesity, Class II, BMI 35-39.9 [E66.9] 07/23/2021 Primary hypertension [I10] 07/23/2021 Pure hypercholesterolemia [E78.00] 11/10/2019 Elevated TSH [R79.89] 08/05/2021 04/26/2023 Abnormal liver enzymes [R74.8] 08/05/2021 Thrombocytopenia (HCC) [D69.6] 08/05/2021 Right-sided Dover's palsy [G51.0] 06/23/2022 Pulsatile tinnitus, right ear [H93.A1] 11/30/2022 Conductive hearing loss of right ear with unres*11/30/2022 Encounter Status:Closed by [employer], PRODUSER on 07/22/23[facility] 05-03-2023 Instructions* Patient Instructions* Pepe Michel APRN.[employer] BUTTON PASTER - 05/03/2023 1:38 PM EST ASSESSMENT/PLAN: 1. Cough present for greater than 3 weeks - ICD9: 786.2, ICD10: R05.8 (primary diagnosis) - XR CHEST 2V FRONTAL/LAT IMPRESSION: No acute radiographic abnormality. Equipment Superintendent: KATELYNN Transcrisandra Date/Time: May 03 2023 1:32P Dictated by : STEPHANIE YOUNG MD 2. Viral bronchitis - ICD9: 466.0, ICD10: J20.8 - PREDNISONE 10 MG TABLET - ALBUTEROL SULFATE HFA 90 MCG/ACTUATION AEROSOL INHALER - INHALATIONAL SPACING DEVICE - nebulizer sent home with patient. May use q 4 to 6 hours PRN. - Follow-up with your PCP in 3-5 days if symptoms have not improved or sooner if symptoms worsen - Discussed red flags and need for immediate medical evaluation if any occur. - Discussed supportive care treatment with fluids, rest and analgesia. - Discussed expected course of illness Pepe Michel APRN.DONNY ACUTE BRONCHITIS: You have acute bronchitis. This means the airway passages in your lungs are inflamed. Bronchitis may be caused by viruses or bacteria. Inhaling cigarette smoke will always make it worse. Exposure to irritating chemicals or second hand smoke as well as allergies can contribute to bronchitis. Repeat episodes of bronchitis may cause lifelong lung problems. Acute bronchitis is usually treated with rest, fluids, cough medicine, and possibly antibiotics or inhaled medicine to open up the small airways. It is very important that you avoid smoke and drink increased amounts of fluids. A cool air vaporizer can help thin bronchial secretions. This makes it easier to cough and clear your chest. If you are a cigarette smoker, consider using nicotine gum or skin patches to help you withdraw. Recovery from bronchitis is often slow, but you should start feeling better after 2-3 days of treatment. Please call your doctor or return here if you have any of the following symptoms: Increased fever, chills, or chest pain. Severe shortness of breath or bloody sputum. Do not improve after 3 days of proper treatment. documented in this encounterM[facility]24 History of Present illness Narrative* Giancarlo Red, RT(R) - 05/03/2023 1:10 PM EST Radiology Service Progress Note PATIENT NAME: Macy Morales DATE OF SERVICE: May 03, 2023 TIME: 1:09 PM PATIENT IDENTITY VERIFICATION COMPLETED USING TWO (2) IDENTIFIERS: Name and Date of confirmedby patient verbally. FALL SCREENING: Has the patient had 2 falls in the last year or 1 fall with injury or currently using an Ambulatory Assistive Device (Walker, Cane, Wheelchair, Crutches, etc.)? No PATIENT GENDER DATA: Female. status: : No status: NO. PATIENT RELEVANT IMPLANT DATA REVIEWED: Not Applicable PATIENT PRESENTS WITH AN IMPLANTABLE OR ATTACHED FIRE ASSISTANT: No RADIOLOGY DEPARTMENT: General X-ray: Exam(s) Completed: Chest X-Ray PERIPHERAL IV DATA: Not applicable SIGNED BY: RT Maddie(R) May 03, 2023 1:09 PM documented in this encounterM[facility]02-19-2024 NoteHNO ID: [id number] Author: GIANCARLO RED RT(R) Service: Radiology Author Type: Technologist Type: Progress Notes Filed: 05/03/2023 13:17 Note Text: Radiology Service Progress Note PATIENT NAME: Macy Morales DATE OF SERVICE: May 03, 2023 TIME: 1:09 PM PATIENT IDENTITY VERIFICATION COMPLETED USING TWO (2) IDENTIFIERS: Name and Date of confirmed by patient verbally. FALL SCREENING: Has the patient had 2 falls in the last year or 1 fall with injury or currently using an Ambulatory Assistive Device (Walker, Cane, Wheelchair, Crutches, etc.)? No PATIENT GENDER DATA: Female. status: : No status: NO. PATIENT RELEVANT IMPLANT DATA REVIEWED: Not Applicable PATIENT PRESENTS WITH AN IMPLANTABLE OR ATTACHED FIRE ASSISTANT: No RADIOLOGY DEPARTMENT: General X-ray: Exam(s) Completed: Chest X-Ray PERIPHERAL IV DATA: Not applicable SIGNED BY: RT Maddie(Yasmeen) May 03, 2023 1:09 [facility]02-19-2024 NoteHNO ID: [id number] Author: PEPE MICHEL APRN.[employer] BUTTON PASTER Service: ? Author Type: Nurse Practitioner Type: Progress Notes Filed: 05/03/2023 13:45 Note Text: Subjective Cough Associated symptoms include chest pain (with cough), chills, shortness of breath and wheezing. Macy Morales is a 67 year old female who presents with productive cough x 3 weeks Has had chest congestion, wheezing, shortness of breath and body aches also Has been using OTC cough remedies at home without improvement Has had a fever of 101-102 degrees F. Review of Systems Constitutional: Positive for chills, fever and malaise/fatigue. Respiratory: Positive for cough, hemoptysis, sputum production, shortness of breath and wheezing. Cardiovascular: Positive for chest pain (with cough). Musculoskeletal: Positive for back pain. BP 128/82 Pulse 81 Temp 36.6 ?C (97.8 ?F) (Tympanic) Resp 16 Wt 84.3 kg (185 lb 12.8 oz) SpO2 99% BMI 36.29 kg/m? 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 MEDICATIONS atorvastatin (LIPITOR) 20 mg tablet Take 1 tablet by mouth daily at bedtime. For cholesterol. metFORMIN ER (GLUCOPHAGE XR) 500 mg 24 hr tablet Take 2 tablets by mouth two times a day with meals. glipiZIDE (GLUCOTROL XL) 2.5 mg 24 hr tablet Take 1 tablet by mouth once daily. pantoprazole DR (PROTONIX) 40 mg tablet Take 1 tablet by mouth once daily as needed. lisinopril (ZESTRIL) 20 mg tablet Take 1 tablet by mouth once daily. alendronate (FOSAMAX) 70 mg tablet Take 1 tablet by mouth one time a week. Take with a full glass of water, on an empty stomach; do NOT lie down for 30minutes. blood sugar diagnostic (TRUE METRIX GLUCOSE TEST STRIP) test strip Test blood sugar(s) 1 times daily. Dx: Type 2 DM - Controlled E11.9 Insulin: No clotrimazole-betamethasone (LOTRISONE) cream Apply to affected area twice daily as needed. FAMILY HISTORY Problem Relation Age of Onset No Known Problems Father Aneurysm Mother Cancer Brother No Known Problems Maternal Grandmother No Known Problems Maternal Grandfather No Known Problems Paternal Grandmother No Known Problems Paternal Grandfather No Known Problems Child No Known Problems Child No Known Problems Child Glaucoma No Family History Macular Degen No Family History Social History Tobacco Use Smoking status: Never Smokeless tobacco: Never Vaping Use Vaping Use: Never used Substance Use Topics Alcohol use: Not Currently Drug use: Not Currently Objective Physical Exam Vitals and nursing note reviewed. Constitutional: General: She is not in acute distress. Appearance: Normal appearance. She is not ill-appearing. HENT: Mouth/Throat: Pharynx: No posterior oropharyngeal erythema. Cardiovascular: Rate and Rhythm: Normal rate and regular rhythm. Heart sounds: Normal heart sounds. Pulmonary: Effort: Pulmonary effort is normal. No respiratory distress. Breath sounds: Examination of the right-upper field reveals wheezing. Examination of the left-upper field reveals wheezing. Examination of the right-lower field reveals wheezing. Examination of the left-lower field reveals wheezing. Wheezing present. No rales. Skin: General: Skin is warm and dry. Findings: No erythema or rash. Neurological: Mental Status: She is alert. ASSESSMENT/PLAN: 1. Cough present for greater than 3 weeks - ICD9: 786.2, ICD10: R05.8 (primary diagnosis) - XR CHEST 2V FRONTAL/LAT IMPRESSION: No acute radiographic abnormality. Equipment Superintendent: KATELYNN Transcribe Date/Time: May 03 2023 1:32P Dictated by : STEPHANIE YOUNG MD 2. Viral bronchitis - ICD9: 466.0, ICD10: J20.8 - PREDNISONE 10 MG TABLET - ALBUTEROL SULFATE HFA 90 MCG/ACTUATION AEROSOL INHALER - INHALATIONAL SPACING DEVICE - nebulizer sent home with patient. May use q 4 to 6 hours PRN. - Follow-up with your PCP in 3-5 days if symptoms have not improved or sooner if symptoms worsen - Discussed red flags and need for immediate medical evaluation if any occur. - Discussed supportive care treatment with fluids, rest and analgesia. - Discussed expected course of illness Pepe Michel APRN.[facility]02-19-2024 History of Present illness Narrative* Pepe Michel APRN.[employer] - 05/03/2023 1:00 PM EST Subjective Cough Associated symptoms include chest pain (with cough), chills, shortness of breath and wheezing. Macy Morales is a 67 year old female who presents with productive cough x 3 weeks Has had chest congestion, wheezing, shortness of breath and body aches also Has been using OTC cough remedies at home without improvement Has had a fever of 101-102 degrees F. Review of Systems Constitutional: Positive for chills, fever and malaise/fatigue. Respiratory: Positive for cough, hemoptysis, sputum production, shortness of breath and wheezing. Cardiovascular: Positive for chest pain (with cough). Musculoskeletal: Positive for back pain. 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 MEDICATIONS atorvastatin (LIPITOR) 20 mg tablet Take 1 tablet by mouth daily at bedtime. For cholesterol. metFORMIN ER (GLUCOPHAGE XR) 500 mg 24 hr tablet Take 2 tablets by mouth two times a day with meals. glipiZIDE (GLUCOTROL XL) 2.5 mg 24 hr tablet Take 1 tablet by mouth once daily. pantoprazole DR (PROTONIX) 40 mg tablet Take 1 tablet by mouth once daily as needed. lisinopril (ZESTRIL) 20 mg tablet Take 1 tablet by mouth once daily. alendronate (FOSAMAX) 70 mg tablet Take 1 tablet by mouth one time a week. Take with a full glass of water, on an empty stomach; do NOT lie down for 30minutes. blood sugar diagnostic (TRUE METRIX GLUCOSE TEST STRIP) test strip Test blood sugar(s) 1 times daily. Dx: Type 2 DM - Controlled E11.9 Insulin: No clotrimazole-betamethasone (LOTRISONE) cream Apply to affected area twice daily as needed. FAMILY HISTORY Problem Relation Age of Onset No Known Problems Father Aneurysm Mother Cancer Brother No Known Problems Maternal Grandmother No Known Problems Maternal Grandfather No Known Problems Paternal Grandmother No Known Problems Paternal Grandfather No Known Problems Child No Known Problems Child No Known Problems Child Glaucoma No Family History Macular Degen No Family History Social History Tobacco Use Smoking status: Never Smokeless tobacco: Never Vaping Use Vaping Use: Never used Substance Use Topics Alcohol use: Not Currently Drug use: Not Currently Objective Physical Exam Vitals and nursing note reviewed. Constitutional: General: She is not in acute distress. Appearance: Normal appearance. She is not ill-appearing. HENT: Mouth/Throat: Pharynx: No posterior oropharyngeal erythema. Cardiovascular: Rate and Rhythm: Normal rate and regular rhythm. Heart sounds: Normal heart sounds. Pulmonary: Effort: Pulmonary effort is normal. No respiratory distress. Breath sounds: Examination of the right-upper field reveals wheezing. Examination of the left-upperfield reveals wheezing. Examination of the right- lower field reveals wheezing. Examination of the left-lower field reveals wheezing. Wheezing present. No rales. Skin: General: Skin is warm and dry. Findings: No erythema or rash. Neurological: Mental Status: She is alert. ASSESSMENT/PLAN: 1. Cough present for greater than 3 weeks - ICD9: 786.2, ICD10: R05.8 (primary diagnosis) - XR CHEST 2V FRONTAL/LAT IMPRESSION: No acute radiographic abnormality. Equipment Superintendent: KATELYNN Transcribe Date/Time: May 03 2023 1:32P Dictated by : STEPHANIE YOUNG MD 2. Viral bronchitis - ICD9: 466.0, ICD10: J20.8 - PREDNISONE 10 MG TABLET - ALBUTEROL SULFATE HFA 90 MCG/ACTUATION AEROSOL INHALER - INHALATIONAL SPACING DEVICE - nebulizer sent home with patient. May use q 4 to 6 hours PRN. - Follow-up with your PCP in 3-5 days if symptoms have not improved or sooner if symptoms worsen - Discussed red flags and need for immediate medical evaluation if any occur. - Discussed supportive care treatment with fluids, rest and analgesia. - Discussed expected course of illness Pepe Michel APRN.[employer] [facility] Miscellaneous Notes* Telephone Encounter - Rere Samuel RN - 04/27/2023 2:55 PM EST Pt called and is notified of providers results and instructions. Pt voices understanding. Rere Samuel RN * Telephone Encounter - Joana Gillette LPN - 04/27/2023 2:39 PM EST Left message to call & speak to nurse re: results. Joana Gillette LPN * Telephone Encounter - Joana Gillette LPN - 04/27/2023 2:33 PM EST ----- Message from Elder Reddy MD sent at 04/27/2023 12:42 PM EST ----- Negative. Continue symptom care. documented in this encounterM[facility]02-12-2024 NoteHNO ID: [id number] Author: ELDER REDDY MD Service: ? Author Type: Physician Type: Progress Notes Filed: 04/26/2023 17:47 Note Text: This note was created using Firebaseriter. Subjective Macy Morales is a 67 year old female here with her spouse we booked in due to illness. She started having fever, cough, sore throat, myalgias 4 days ago. Family members including spouse also got the virus. Her symptoms were improving. Her diabetes mellitus and hypertension were controlled. She was scheduled for dental work. Left arm pain was sort of better. Review of Systems Respiratory: Negative for shortness of breath. Cardiovascular: Negative. Gastrointestinal: Negative for diarrhea, nausea and vomiting. Neurological: Negative for dizziness and headaches. ACTIVE PROBLEM LIST Controlled Type 2 Diabetes Mellitus Without Complication, Without Long-Term Current Use of Insulin (Hcc) Obesity, Class II, Bmi 35-39.9 Primary Hypertension Pure Hypercholesterolemia Abnormal Liver Enzymes Thrombocytopenia (Hcc) Right-Sided Dover's Palsy Pulsatile Tinnitus, Right Ear Conductive Hearing Loss of Right Ear With Unrestricted Hearing of Left Ear Social History Tobacco Use Smoking status: Never Smokeless tobacco: Never Vaping Use Vaping Use: Never used Substance Use Topics Alcohol use: Not Currently Drug use: Not Currently Current Outpatient Medications Medication Sig atorvastatin (LIPITOR) 20 mg tablet Take 1 tablet by mouth daily at bedtime. For cholesterol. metFORMIN ER (GLUCOPHAGE XR) 500 mg 24 hr tablet Take 2 tablets by mouth two times a day with meals. glipiZIDE (GLUCOTROL XL) 2.5 mg 24 hr tablet Take 1 tablet by mouth once daily. pantoprazole DR (PROTONIX) 40 mg tablet Take 1 tablet by mouth once daily as needed. lisinopril (ZESTRIL) 20 mg tablet Take 1 tablet by mouth once daily. alendronate (FOSAMAX) 70 mg tablet Take 1 tablet by mouth one time a week. Take with a full glass of water, on an empty stomach; do NOT lie down for 30minutes. blood sugar diagnostic (TRUE METRIX GLUCOSE TEST STRIP) test strip Test blood sugar(s) 1 times daily. Dx: Type 2 DM - Controlled E11.9 Insulin: No clotrimazole-betamethasone (LOTRISONE) cream Apply to affected area twice daily as needed. No current facility-administered medications for this visit. Objective BP 144/70 (BP Site: Right Arm, BP Position: Sitting, BP Cuff Size: Large Adult) Pulse 86 Temp 37 ?C (98.6 ?F) (Temporal) Wt 85.3 kg (188 lb) BMI 36.72 kg/m? Physical Exam Constitutional: General: She is not in acute distress. Appearance: She is not ill-appearing. HENT: Head: Normocephalic. Right Ear: Tympanic membrane normal. Left Ear: Tympanic membrane normal. Nose: Congestion present. No rhinorrhea. Mouth/Throat: Mouth: Mucous membranes are moist. Pharynx: Oropharynx is clear. No oropharyngeal exudate or posterior oropharyngeal erythema. Eyes: General: No scleral icterus. Conjunctiva/sclera: Conjunctivae normal. Cardiovascular: Rate and Rhythm: Normal rate and regular rhythm. Heart sounds: Murmur heard. Systolic murmur is present with a grade of 1/6. Pulmonary: Effort: No respiratory distress. Breath sounds: No wheezing or rales. Musculoskeletal: Cervical back: No tenderness. Right lower leg: No edema. Left lower leg: No edema. Lymphadenopathy: Cervical: No cervical adenopathy. Neurological: Mental Status: She is alert. Assessment and Plan 1. Flu-like symptoms - ICD9: 780.99, ICD10: R68.89 (primary diagnosis) - COVID AND INFLUENZA A/B AND RSV NAAT, ROUTINE 2. Controlled type 2 diabetes mellitus without complication, without long-term current use of insulin (HCC) - ICD9: 250.00, ICD10: E11.9 - Controlled - Continue current medications - HGB A1C 3. Primary hypertension - ICD9: 401.9, ICD10: I10 - Factors affecting control: acute illness. - Continue current medications 4. Pure hypercholesterolemia - ICD9: 272.0, ICD10: E78.00 - COMP METABOLIC PANEL - LIPID PANEL BASIC 5. Thrombocytopenia (HCC) - ICD9: 287.5, ICD10: D69.6 - CBC Elder Reddy [facility]02-12-2024 History of Present illness Narrative* Elder Reddy MD - 04/26/2023 4:52 PM EST This note was created using Firebaseriter. Ratna Morales is a 67 year old female here with her spouse we booked in due to illness. She started having fever, cough, sore throat, myalgias 4 days ago. Family members including spouse also got the virus. Her symptoms were improving. Her diabetes mellitus and hypertension were controlled. She was scheduled for dental work. Left armpain was sort of better. Review of Systems Respiratory: Negative for shortness of breath. Cardiovascular: Negative. Gastrointestinal: Negative for diarrhea, nausea and vomiting. Neurological: Negative for dizziness and headaches. ACTIVE PROBLEM LIST Controlled Type 2 Diabetes Mellitus Without Complication, Without Long-Term Current Use of Insulin (Hcc) Obesity, Class II, Bmi 35-39.9 Primary Hypertension Pure Hypercholesterolemia Abnormal Liver Enzymes Thrombocytopenia (Hcc) Right-Sided Dover's Palsy Pulsatile Tinnitus, Right Ear Conductive Hearing Loss of Right Ear With Unrestricted Hearing of Left Ear Social History Tobacco Use Smoking status: Never Smokeless tobacco: Never Vaping Use Vaping Use: Never used Substance Use Topics Alcohol use: Not Currently Drug use: Not Currently Current Outpatient Medications Medication Sig atorvastatin (LIPITOR) 20 mg tablet Take 1 tablet by mouth daily at bedtime. For cholesterol. metFORMIN ER (GLUCOPHAGE XR) 500 mg 24 hr tablet Take 2 tablets by mouth two times a day with meals. glipiZIDE (GLUCOTROL XL) 2.5 mg 24 hr tablet Take 1 tablet by mouth once daily. pantoprazole DR (PROTONIX) 40 mg tablet Take 1 tablet by mouth once daily as needed. lisinopril (ZESTRIL) 20 mg tablet Take 1 tablet by mouth once daily. alendronate (FOSAMAX) 70 mg tablet Take 1 tablet by mouth one time a week. Take with a full glass of water, on an empty stomach; do NOT lie down for 30minutes. blood sugar diagnostic (TRUE METRIX GLUCOSE TEST STRIP) test strip Test blood sugar(s) 1 times daily. Dx: Type 2 DM - Controlled E11.9 Insulin: No clotrimazole-betamethasone (LOTRISONE) cream Apply to affected area twice daily as needed. No current facility-administered medications for this visit. Objective BP 144/70 (BP Site: Right Arm, BP Position: Sitting, BP Cuff Size: Large Adult) Pulse 86 Temp 37 C (98.6 F) (Temporal) Wt 85.3 kg (188 lb) BMI 36.72 kg/m Physical Exam Constitutional: General: She is not in acute distress. Appearance: She is not ill-appearing. HENT: Head: Normocephalic. Right Ear: Tympanic membrane normal. Left Ear: Tympanic membrane normal. Nose: Congestion present. No rhinorrhea. Mouth/Throat: Mouth: Mucous membranes are moist. Pharynx: Oropharynx is clear. No oropharyngeal exudate or posterior oropharyngeal erythema. Eyes: General: No scleral icterus. Conjunctiva/sclera: Conjunctivae normal. Cardiovascular: Rate and Rhythm: Normal rate and regular rhythm. Heart sounds: Murmur heard. Systolic murmur is present with a grade of 1/6. Pulmonary: Effort: No respiratory distress. Breath sounds: No wheezing or rales. Musculoskeletal: Cervical back: No tenderness. Right lower leg: No edema. Left lower leg: No edema. Lymphadenopathy: Cervical: No cervical adenopathy. Neurological: Mental Status: She is alert. Assessment and Plan 1. Flu-like symptoms - ICD9: 780.99, ICD10: R68.89 (primary diagnosis) - COVID & INFLUENZA A/B & RSV NAAT, ROUTINE 2. Controlled type 2 diabetes mellitus without complication, without long-term current use of insulin (HCC) - ICD9: 250.00, ICD10: E11.9 - Controlled - Continue current medications - HGB A1C 3. Primary hypertension - ICD9: 401.9, ICD10: I10 - Factors affecting control: acute illness. - Continue current medications 4. Pure hypercholesterolemia - ICD9: 272.0, ICD10: E78.00 - COMP METABOLIC PANEL - LIPID PANEL BASIC 5. Thrombocytopenia (HCC) - ICD9: 287.5, ICD10: D69.6 - CBC Elder Reddy MD documented in this [facility]02-[facility]24 Miscellaneous Notes* Telephone Encounter - Albina Garrison LPN - 04/22/2023 9:52 AM EST Rec'd fax from [facility]. Pt is having 5 extractions. Pcp reviewed form. [facility] was completed [facility] in this encounter[facility]01-29-2024 NoteHNO ID: [id number] Author: SVETLANA PACHECO RDMS Service: ? Author Type: Apron Trimmer Type: Progress Notes Filed: 04/12/2023 10:38 Note Text: Radiology Service Progress Note PATIENT NAME: Macy Morales DATE OF SERVICE: April 12, 2023 TIME: 10:34 AM PATIENT IDENTITY VERIFICATION COMPLETED USING TWO (2) IDENTIFIERS: Name and Date of confirmed by patient verbally. FALL SCREENING: Has the patient had 2 falls in the last year or 1 fall with injury or currently using an Ambulatory Assistive Device (Walker, Cane, Wheelchair, Crutches, etc.)? No PATIENT GENDER DATA: Female. status: : No status: NO. PATIENT RELEVANT IMPLANT DATA REVIEWED: Not Applicable PATIENT PRESENTS WITH AN IMPLANTABLE OR ATTACHED FIRE ASSISTANT: No RADIOLOGY DEPARTMENT: Ultrasound PERIPHERAL IV DATA: Not applicable Called Dr. Saleem's office 04/12/2023 to confirm RUQ to include spleen was the only exam that needed to be completed. Separate spleen order was deleted by Tianna Ng at Dr. Saleem's office. SIGNED BY: Svetlana Pacheco RDMS April 12, 2023 10:34 [facility]01-22-2024 NoteHNO ID: [id number] Author: KATHERINE GOLDSTEIN, RALPH Service: ? Author Type: DIRT CONTRACTOR Type: Progress Notes Filed: 04/05/2023 09:54 Note Text: 1. Dover's palsy 2. Punctate keratitis, bilateral Much improved Patient notes myokymia right eye- recommended increasing artificial tears to 4-5 times daily and gel nightly -also mentioned limiting caffeine 3. Type 2 diabetes mellitus without retinopathy (HCC) Monitor 4. Combined forms of age-related cataract of both eyes Monitor 5. Regular astigmatism of both eyes 6. Presbyopia Finalized spec rc Follow-up in 6 months for DORIS Goldstein, OD April 05, 2023 9:53 [facility]01-09-2024 NoteHNO ID: [id number] Author: ANA BROWNING APRN.[employer] Service: ? Author Type: Nurse Practitioner Type: Progress Notes Filed: 03/23/2023 10:14 Note Text: CC: Patient presents with: F/U 6 months: C/o left arm pain for 2 weeks. No know in jury. Has taken tylenol with minimal relief. PJ Morales is a 67 year old female who presents today for above. Reports pain in the left upper arm for two weeks Located: biceps Described as: aching Cause: denies injury, strenuous activities or heavy lifting Pain is aggravated by: lifting arm up or picking something up Pain is alleviated by rest, avoiding aggravating movements Denies numbness, tingling, weakness, swelling, redness Treatments tried: Tylenol with temporary relief Ever had pain like this before: no Diabetes: Home blood sugar readings: fasting average around 110-120 Hypoglycemia: No She is compliant with medication(s) and is tolerating med(s) without any side effects. Increased thirst: No Urinary frequency: No Nocturia: No Fatigue: No Unintentional weight loss: No Blurred vision: No Numbness, tingling or pain in extremities: No Ulcers or sores on feet: No Last Ophthalmology exam: within the past 12 months Patient's last HgA1C : Hemoglobin A1C (%) Date Value 11/19/2022 5.9 04/15/2022 6.8 Thrombocytopenia: chronic. Bruises easily but denies hematuria, melena, hematochezia, bleeding gums. Review of Systems Constitutional: Negative for chills, diaphoresis, fatigue, fever and unexpected weight change. Respiratory: Negative for cough, shortness of breath and wheezing. Cardiovascular: Negative for chest pain, palpitations and leg swelling. 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 MEDICATIONS lisinopril (ZESTRIL) 20 mg tablet Take 1 tablet by mouth once daily. alendronate (FOSAMAX) 70 mg tablet Take 1 tablet by mouth one time a week. Take with a full glass of water, on an empty stomach; do NOT lie down for 30minutes. pantoprazole DR (PROTONIX) 40 mg tablet Take 1 tablet by mouth once daily as needed. blood sugar diagnostic (TRUE METRIX GLUCOSE TEST STRIP) test strip Test blood sugar(s) 1 times daily. Dx: Type 2 DM - Controlled E11.9 Insulin: No glipiZIDE (GLUCOTROL XL) 2.5 mg 24 hr tablet Take 1 tablet by mouth once daily. atorvastatin (LIPITOR) 10 mg tablet Take 1 tablet by mouth daily at bedtime. For cholesterol. clotrimazole-betamethasone (LOTRISONE) cream Apply to affected area twice daily as needed. metFORMIN ER (GLUCOPHAGE XR) 500 mg 24 hr tablet Take 2 tablets by mouth twice daily with meals. FAMILY HISTORY Problem Relation Age of Onset No Known Problems Father Aneurysm Mother Cancer Brother No Known Problems Maternal Grandmother No Known Problems Maternal Grandfather No Known Problems Paternal Grandmother No Known Problems Paternal Grandfather No Known Problems Child No Known Problems Child No Known Problems Child Glaucoma No Family History Macular Degen No Family History Social History Tobacco Use Smoking status: Never Smokeless tobacco: Never Vaping Use Vaping Use: Never used Substance Use Topics Alcohol use: Not Currently Drug use: Not Currently BP 122/68 Pulse 76 Resp 14 Wt 83 kg (183 lb) SpO2 99% BMI 35.74 kg/m? Physical Exam Vitals reviewed. Constitutional: Appearance: Normal appearance. Cardiovascular: Rate and Rhythm: Normal rate and regular rhythm. Pulses: Normal pulses. Heart sounds: Normal heart sounds. No murmur heard. Pulmonary: Effort: Pulmonary effort is normal. Breath sounds: Normal breath sounds. No wheezing, rhonchi or rales. Musculoskeletal: Right upper arm: Normal. Left upper arm: Tenderness (biceps) present. No swelling, deformity or bony tenderness. Skin: General: Skin is warm and dry. Capillary Refill: Capillary refill takes less than 2 seconds. Neurological: Mental Status: She is alert. Sensory: Sensation is intact. Motor: Motor function is intact. Health maintenance reviewed with patient: BP Controlled (<130/80) Never done Mammogram Screening Never done RSV Vaccine(1 - 1-dose 60+ series) Never done Influenza Vaccine(1) Never done Covid-19 Vaccine(2022- season) due on 11/13/2022 Advance Directive Discussion Never done Depression Assessment due on 03/15/2023 Urine Albumin:Creatinine Ratio due on 04/15/2023 DTaP,Tdap,Td Vaccine(1 - Tdap) due on 04/14/2023 Colorectal Cancer Screening due on 04/15/2023 Shingrix Vaccine(1 of 2) due on 07/15/2023 HbA1C due on 05/20/2023 Dilated Retinal Exam due on 06/24/2023 (more content not included)...[facility]01-03-2024 NotePatient Outreach (INTMMN) CARMENMACY ([id number]) 1955 F ARIADNE Date Time Provider Department 03/17/23 ELDER REDDY During your visit today, we recorded the following information about you: Allergies As of Date: 03/17/2023 (No Known Allergies) Date Reviewed: 03/06/2023 Reviewed by: Maddy Dubois - Fully Assessed Visit Diagnosis:Encounter for screening mammogram for breast cancer [Z12.31] Order(s):SAN [facility] SCREENING [[id number]] Order #: [id number] FUTURE Prescriptions as of 03/22/2023 - lisinopril (ZESTRIL) 20 mg tablet Take 1 tablet by mouth once daily. - alendronate (FOSAMAX) 70 mg tablet Take 1 tablet by mouth one time a week. Take with a full glass of water, on an empty stomach; do NOT lie down for 30minutes. - pantoprazole DR (PROTONIX) 40 mg tablet Take 1 tablet by mouth once daily as needed. - blood sugar diagnostic (TRUE METRIX GLUCOSE TEST STRIP) test strip Test blood sugar(s) 1 times daily. Dx: Type 2 DM - Controlled E11.9 Insulin: No - glipiZIDE (GLUCOTROL XL) 2.5 mg 24 hr tablet Take 1 tablet by mouth once daily. - atorvastatin (LIPITOR) 10 mg tablet Take 1 tablet by mouth daily at bedtime. For cholesterol. - clotrimazole-betamethasone (LOTRISONE) cream Apply to affected area twice daily as needed. - metFORMIN ER (GLUCOPHAGE XR) 500 mg 24 hr tablet Take 2 tablets by mouth twice daily with meals. Problem List As Of Date 03/17/2023 Noted Resolved Controlled type 2 diabetes mellitus without com*04/28/2021 Obesity, Class I, BMI 30-34.9 [E66.9] 04/28/2021 07/23/2021 Obesity, Class II, BMI 35-39.9 [E66.9] 07/23/2021 Primary hypertension [I10] 07/23/2021 Pure hypercholesterolemia [E78.00] 11/10/2019 Elevated TSH [R79.89] 08/05/2021 Abnormal liver enzymes [R74.8] 08/05/2021 Thrombocytopenia (HCC) [D69.6] 08/05/2021 Right-sided Dover's palsy [G51.0] 06/23/2022 Pulsatile tinnitus, right ear [H93.A1] 11/30/2022 Conductive hearing loss of right ear with unres*11/30/2022 Encounter Status:Closed by EPIC, PRODUSER on 03/22/23[facility] 03-06-2023 History of Present illness Narrative* Sridhar Boles RT(R) - 03/06/2023 11:50 AM EST Radiology Service Progress Note PATIENT NAME: Macy Morales DATE OF SERVICE: March 06, 2023 TIME: 11:59 AM PATIENT IDENTITY VERIFICATION COMPLETED USING TWO (2) IDENTIFIERS: Name and Date of confirmedby patient verbally. FALL SCREENING: Has the patient had 2 falls in the last year or 1 fall with injury or currently using an Ambulatory Assistive Device (Walker, Cane, Wheelchair, Crutches, etc.)? No PATIENT GENDER DATA: Female. status: : No status: NO. PATIENT RELEVANT IMPLANT DATA REVIEWED: Not Applicable RADIOLOGY DEPARTMENT: General X-ray: Exam(s) Completed: Chest X-Ray PERIPHERAL IV DATA: Not applicable SIGNED BY: JULES Maddox) March 06, 2023 11:59 AM documented in this [facility]12-23-2023 NoteHNO ID: [id number] Author: Sridhar Boles RT(R) Service: ? Author Type: Technologist Type: Progress Notes Filed: 03/06/2023 12:05 PM Note Text: Radiology Service Progress Note PATIENT NAME: Macy Morales DATE OF SERVICE: March 06, 2023 TIME: 11:59 AM PATIENT IDENTITY VERIFICATION COMPLETED USING TWO (2) IDENTIFIERS: Name and Date of confirmed by patient verbally. FALL SCREENING: Has the patient had 2 falls in the last year or 1 fall with injury or currently using an Ambulatory Assistive Device (Walker, Cane, Wheelchair, Crutches, etc.)? No PATIENT GENDER DATA: Female. status: : No status: NO. PATIENT RELEVANT IMPLANT DATA REVIEWED: Not Applicable RADIOLOGY DEPARTMENT: General X-ray: Exam(s) Completed: Chest X-Ray PERIPHERAL IV DATA: Not applicable SIGNED BY: Sridhar Boles, RT(R) March 06, 2023 11:59 [facility]12-23-2023 NoteHNO ID: [id number] Author: Igor Kim MD Service: ? Author Type: Physician Type: Progress Notes Filed: 03/06/2023 12:48 PM Note Text: Patient presents with: Nasal Congestion: cough, nose bleeds x 2 weeks HPI: Feeling sick for 2 weeks; not feeling better. Still felt feverish last night. Positive symptoms: Cough, Nasal Congestion, rhinorrhea, epistaxis, little shortness of breath/Wheezing, Sore throat, swollen uvula, fever, Body Aches, Malaise, Fatigue, Headache, Nausea, Diarrhea, sometimes dizziness Negative symptoms: Chest pain, Vomiting, OTC: none. No COVID or influenza test this illness. 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 alendronate (FOSAMAX) 70 mg tablet Take 1 tablet by mouth one time a week. Take with a full glass of water, on an empty stomach; do NOT lie down for 30minutes. pantoprazole DR (PROTONIX) 40 mg tablet Take 1 tablet by mouth once daily as needed. blood sugar diagnostic (TRUE METRIX GLUCOSE TEST STRIP) test strip Test blood sugar(s) 1 times daily. Dx: Type 2 DM - Controlled E11.9 Insulin: No glipiZIDE (GLUCOTROL XL) 2.5 mg 24 hr tablet Take 1 tablet by mouth once daily. atorvastatin (LIPITOR) 10 mg tablet Take 1 tablet by mouth daily at bedtime. For cholesterol. clotrimazole-betamethasone (LOTRISONE) cream Apply to affected area twice daily as needed. metFORMIN ER (GLUCOPHAGE XR) 500 mg 24 hr tablet Take 2 tablets by mouth twice daily with meals. No current facility-administered medications for this visit. ALLERGIES: ALLERGIES No Known Allergies VITALS: BP 122/80 Pulse 80 Temp 36.7 ?C (98 ?F) Resp 16 Wt 82.6 kg (182 lb) SpO2 98% BMI 35.54 kg/m? PHYSICAL EXAM: GEN: mildly ill appearing HEENT: PERRL, EOMI, conjunctiva clear Ears: canals clear. TMs without erythema, bulge, or effusion Sinuses: non-tender frontal sinus, non-tender maxillary sinuses Throat: moist mucous membranes, mild erythema, no exudate Neck: supple, no thyromegaly, no lymphadenopathy HEART: regular rate and rhythm, no murmurs LUNGS: clear to auscultation, no wheezes or crackles, no increased WOB ASSESSMENT/PLAN: 1. Influenza-like illness - ICD9: 487.1, ICD10: J11.1 (primary diagnosis) 2. Sore throat - ICD9: 462, ICD10: J02.9 3. Acute cough - ICD9: 786.2, ICD10: R05.1 - suspect viral URI, differential includes COVID-19. No signs of secondary infection on exam today. - Discussed supportive care treatment with home isolation, rest, cold medicine, and analgesia. - Red flags to seek further treatment include chest pain, shortness of breath, and lethargy; in the ER if severe. - COVID AND INFLUENZA A/B AND RSV NAAT, ROUTINE - STREP A MOLECULAR (POC) - negative - XR CHEST 2V FRONTAL/LAT - no obvious pneumonia. Radiology interpretation is pending. The patient will be notified if there is a significant finding in the report not discussed at the time of the visit. Igor Kim MD'[facility]12-12-2023 Instructions* Patient Instructions* Ana Browning, EFREN.[employer] - 02/23/2023 10:22 AM EST Eye twitching is likely due to [place] Palsy. If symptoms are getting worse recommend follow-up with your eye doctor documented in this encounterM[facility]12-12-2023 NoteHNO ID: [id number] Author: Ana Browning APRN.CNP Service: ? Author Type: Nurse Practitioner Type: Progress Notes Filed: 02/23/2023 11:31 AM Note Text: CC: Patient presents with: Eye Muscle Spasms Right Eye HPI Macy Morales is a 67 year old female who presents today for above. Patient reports right eye twitching since diagnosed with [place] Palsy. All other [place] Palsy symptoms have resolved except for this. Denies photophobia, eye pain, discharge, redness, itching and visual disturbance. Last eye exam was in September, no abnormal findings other than [place] Palsy. Review of Systems HENT: Negative for drooling, facial swelling, trouble swallowing and voice change. Neurological: Negative for tremors, facial asymmetry, speech difficulty, weakness, light-headedness, numbness and headaches. 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 MEDICATIONS lisinopril (ZESTRIL) 20 mg tablet Take 1 tablet by mouth once daily. alendronate (FOSAMAX) 70 mg tablet Take 1 tablet by mouth one time a week. Take with a full glass of water, on an empty stomach; do NOT lie down for 30minutes. pantoprazole DR (PROTONIX) 40 mg tablet Take 1 tablet by mouth once daily as needed. blood sugar diagnostic (TRUE METRIX GLUCOSE TEST STRIP) test strip Test blood sugar(s) 1 times daily. Dx: Type 2 DM - Controlled E11.9 Insulin: No glipiZIDE (GLUCOTROL XL) 2.5 mg 24 hr tablet Take 1 tablet by mouth once daily. atorvastatin (LIPITOR) 10 mg tablet Take 1 tablet by mouth daily at bedtime. For cholesterol. clotrimazole-betamethasone (LOTRISONE) cream Apply to affected area twice daily as needed. metFORMIN ER (GLUCOPHAGE XR) 500 mg 24 hr tablet Take 2 tablets by mouth twice daily with meals. FAMILY HISTORY Problem Relation Age of Onset No Known Problems Father Aneurysm Mother Cancer Brother No Known Problems Maternal Grandmother No Known Problems Maternal Grandfather No Known Problems Paternal Grandmother No Known Problems Paternal Grandfather No Known Problems Child No Known Problems Child No Known Problems Child Glaucoma No Family History Macular Degen No Family History Social History Tobacco Use Smoking status: Never Smokeless tobacco: Never Vaping Use Vaping Use: Never used Substance Use Topics Alcohol use: Not Currently Drug use: Not Currently BP 169/90 Pulse 76 Resp 16 Wt 84.8 kg (187 lb) BMI 36.52 kg/m? Physical Exam Vitals reviewed. Constitutional: Appearance: Normal appearance. HENT: Mouth/Throat: Tongue: Tongue does not deviate from midline. Pharynx: Uvula midline. Eyes: General: Lids are normal. Gaze aligned appropriately. Right eye: No discharge. Extraocular Movements: Extraocular movements intact. Right eye: No nystagmus. Conjunctiva/sclera: Conjunctivae normal. Neurological: Mental Status: She is alert. Cranial Nerves: No facial asymmetry. ASSESSMENT/PLAN: 1. Eye muscle twitches - ICD9: 781.0, ICD10: R25.3 Suspect secondary to [place] Palsy. No alarm symptoms or exam findings. Reassurance given. Follow-up with crime prevention police officer if symptoms worsen or persist Prescription instructions reviewed with patient as applicable. Potential red flag symptoms discussed with the patient. Reviewed appropriate action plan to take if red flag symptoms occur. Patient agreeable to treatment plan. Ana Browning APRN.[facility]12-12-2023 History of Present illness Narrative* Ana Browning APRN.[facility] - 02/23/2023 10:16 AM EST CC: Patient presents with: Eye Muscle Spasms Right Eye HPI Macy Morales is a 67 year old female who presents today for above. Patient reports right eye twitching since diagnosed with [place] Palsy. All other [place] Palsy symptoms have resolved except for this. Denies photophobia, eye pain, discharge, redness, itching and visual disturbance. Last eye exam wasin September, no abnormal findings other than [place] Palsy. Review of Systems HENT: Negative for drooling, facial swelling, trouble swallowing and voice change. Neurological: Negative for tremors, facial asymmetry, speech difficulty, weakness, light-headedness, numbness and headaches. 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 MEDICATIONS lisinopril (ZESTRIL) 20 mg tablet Take 1 tablet by mouth once daily. alendronate (FOSAMAX) 70 mg tablet Take 1 tablet by mouth one time a week. Take with a full glass of water, on an empty stomach; do NOT lie down for 30minutes. pantoprazole DR (PROTONIX) 40 mg tablet Take 1 tablet by mouth once daily as needed. blood sugar diagnostic (TRUE METRIX GLUCOSE TEST STRIP) test strip Test blood sugar(s) 1 times daily. Dx: Type 2 DM - Controlled E11.9 Insulin: No glipiZIDE (GLUCOTROL XL) 2.5 mg 24 hr tablet Take 1 tablet by mouth once daily. atorvastatin (LIPITOR) 10 mg tablet Take 1 tablet by mouth daily at bedtime. For cholesterol. clotrimazole-betamethasone (LOTRISONE) cream Apply to affected area twice daily as needed. metFORMIN ER (GLUCOPHAGE XR) 500 mg 24 hr tablet Take 2 tablets by mouth twice daily with meals. FAMILY HISTORY Problem Relation Age of Onset No Known Problems Father Aneurysm Mother Cancer Brother No Known Problems Maternal Grandmother No Known Problems Maternal Grandfather No Known Problems Paternal Grandmother No Known Problems Paternal Grandfather No Known Problems Child No Known Problems Child No Known Problems Child Glaucoma No Family History Macular Degen No Family History Social History Tobacco Use Smoking status: Never Smokeless tobacco: Never Vaping Use Vaping Use: Never used Substance Use Topics Alcohol use: Not Currently Drug use: Not Currently BP 169/90 Pulse 76 Resp 16 Wt 84.8 kg (187 lb) BMI 36.52 kg/m Physical Exam Vitals reviewed. Constitutional: Appearance: Normal appearance. HENT: Mouth/Throat: Tongue: Tongue does not deviate from midline. Pharynx: Uvula midline. Eyes: General: Lids are normal. Gaze aligned appropriately. Right eye: No discharge. Extraocular Movements: Extraocular movements intact. Right eye: No nystagmus. Conjunctiva/sclera: Conjunctivae normal. Neurological: Mental Status: She is alert. Cranial Nerves: No facial asymmetry. ASSESSMENT/PLAN: 1. Eye muscle twitches - ICD9: 781.0, ICD10: R25.3 Suspect secondary to [place] Palsy. No alarm symptoms or exam findings. Reassurance given. Follow-up with crime prevention police officer if symptoms worsen or persist Prescription instructions reviewed with patient as applicable. Potential red flag symptoms discussed with the patient. Reviewed appropriate action plan to take if red flag symptoms occur. Patient agreeable to treatment plan. Ana Browning APRN.[employer] documented in this encounterM[facility]09-18-2023 History of Present illness Narrative* Arie Gaytan, LAST - 11/30/2022 11:00 AM EDT Head [facility] Neck [place] AUDIOLOGIC EVALUATION REPORT Name: Macy Morales [facility]#: [id number] Date of Service: 11/30/2022 Date of : 1955 Age: [age] year old Referred by: Brittani Santana MD Referred for: Evaluation of the cause of disorder of hearing, tinnitus, or balance. Referral documented: In an order in [facility] Patient's major complaints: Hearing loss: Possible decline in hearing. Tinnitus: Right sided tinnitus since May 2022(vacuum-thumping). Tinnitus worsens with loud noises Ear pain: Right ear pain began in May 2022, 3 days later she developed right facial paralysis. Was evaluated at an outside facility with CT and MRI which were reportedly WNL. Ear pain lasted approximately 1 week. Aural fullness: denied Otorrhea: denied History of ear infections: denied History of otologic surgeries: denied Dizziness: denied Noise exposure: denied History of chemotherapy or radiation: denied History of head trauma: denied Family history of hearing loss: denied Other concerns: Right sided facial paralysis since May 2022, although it is improving. Patient also notes hyperacusis in the right ear only. She also noted occasional twitching of the right cheek and ear since May 2022 Macy Morales was seen for an initial audiologic evaluation. See SmartForm Audiogram for additionalreported history and symptoms. Risk of Falls Documentation for over 65 years old: No history of falls reported so minimal to no risk IMPRESSIONS RIGHT EAR: Conductive hearing loss LEFT EAR: Hearing within normal limits AUDIOLOGIC EVALUATION Following is a brief interpretation of the obtained findings from the audiologic evaluation. Refer to the Auditory Test Record for complete audiometric results. The patient was counseled about the test findings and appropriate audiologic recommendations were made. SUMMARY: Audiogram can be viewed under Forms/Audiology/SmartForm. OTOSCOPY RIGHT EAR: Otoscopic inspection revealed ear canal was clear with an identifiable cone of light. LEFT EAR: Otoscopic inspection revealed ear canal was clear with an identifiable cone of light. TYMPANOMETRY Description of procedure: This test is an objective evaluation of middle ear function. CPT code: 16693 RIGHT EAR: Normal ME function. LEFT EAR: Normal ME function. ACOUSTIC REFLEXES Description of procedure: This test is an objective measure of auditory and facial nerve pathways. CPT code: 50092, 71205 RIGHT EAR PROBE EAR: (ipsi right stimulus ear; contralateral left stimulus ear): Acoustic Reflex Pattern screening ipsilateral reflex at 1000 Hz was absent at 105 DB Acoustic Reflex Decay (left stimulus ear): Did not test. LEFT EAR PROBE EAR: (ipsi left stimulus ear; contralateral right stimulus ear): Acoustic Reflex Pattern screening ipsilateral reflex and 1000 Hz was present Acoustic Reflex Decay (right stimulus ear):Did not test. PURE TONE AUDIOMETRY AND SPEECH TESTING Description of procedure: This test is an objective evaluation hearing sensitivity via air and boneconduction and speech recognition testing. CPT code:95227 RIGHT EAR: Hearing Sensitivity: Hearing essentially within normal limits except for a mild conductive hearing loss at 1000 Hz only. This was double checked with phones and a screening reflex at the 1000 Hz which was absent Word Recognition Score: Good (84%). WRS is poorer than expected given hearing sensitivity. Words were presented at 60 dB HL is above (greater than or equal to 60 dB HL) intensity level for average conversational speech. The NU-6 Ordered by Difficulty Word List (25 words) was used for testing. Interpret with caution due to ESL Due to lower than expected speech understanding, a English word list was used and speech perceptionwas noted to be excellent (96%) at an above (greater than or equal to 60 dBHL) intensity level for average conversational speech. (25 words) LEFT EAR: Hearing Sensitivity: Essentially WNL Word Recognition Score: Poor (64%). WRS is poorer than expected given hearing sensitivity. Words were presented at 55 dB HL which approximates (45-55 dB HL) intensity level for average conversationalspeech. The NU-6 Ordered by Difficulty Word List (25 words) was used for testing. *Interpret with caution due to ESL Due to lower than expected speech understanding, a English word list was used and speech perceptionwas noted to be Good (88%) at an above (greater than or equal to 60 dBHL) intensity level for average conversational speech. However, this score remains worse than expected given hearing sensitivity (25 words) RECOMMENDATIONS * Continue medical follow-up with Brittani Santana MD as planned. * The patient was counseled regarding the need to continue to monitor hearing and have regular hearing assessments. * The patient was counseled regarding benefits/limitations of hearing aids and provided written educational materials. *Consider calling [phone] to schedule an appointment to assess your need for hearing aids. Request a HAE appointment. *Pending medical clearance, patient may want to consider calling [phone] to schedule an appointment in the [facility] Educational Session following medical clearance. * Patient was counseled to maintain a sound enriched environment to assist in managing the tinnitus. Last [place], [facility] Clinical and [facility] Rotary Cutter Feeder copied to: Brittani Santana MD [place] Abbrev- iation Definition Degree of hearing sensitivity dB range WNL within normal limits WNL 0 - 20 SNHL sensorineural hearing loss Mild 20-40 CHL conductive hearing loss Moderate 40-55 MHL mixed hearing loss Moderately-Severe 55-70 WRS word recognition score Severe 70-90 ME middle ear Profound 90 + TM tympanic membrane documented in this encounterM[facility]09-18-2023 NoteHNO ID: [id number] Author: Arie Gaytan AUD Service: ? Author Type: Rotary Cutter Feeder Type: Progress Notes Filed: 11/30/2022 1:00 PM Note Text: Head [facility]ck [place] AUDIOLOGIC EVALUATION REPORT Name: Macy Morales CC#: [id number] Date of Service: 11/30/2022 Date of : 1955 Age: [age] year old Referred by: Brittani Santana MD Referred for: Evaluation of the cause of disorder of hearing, tinnitus, or balance. Referral documented: In an order in [facility] Patient's major complaints: Hearing loss: Possible decline in hearing. Tinnitus: Right sided tinnitus since May 2022(vacuum-thumping). Tinnitus worsens with loud noises Ear pain: Right ear pain began in May 2022, 3 days later she developed right facial paralysis. Was evaluated at an outside facility with CT and MRI which were reportedly WNL. Ear pain lasted approximately 1 week. Aural fullness: denied Otorrhea: denied History of ear infections: denied History of otologic surgeries: denied Dizziness: denied Noise exposure: denied History of chemotherapy or radiation: denied History of head trauma: denied Family history of hearing loss: denied Other concerns: Right sided facial paralysis since May 2022, although it is improving. Patient also notes hyperacusis in the right ear only. She also noted occasional twitching of the right cheek and ear since May 2022 Macy Morales was seen for an initial audiologic evaluation. See SmartForm Audiogram for additional reported history and symptoms. Risk of Falls Documentation for over 65 years old: No history of falls reported so minimal to no risk IMPRESSIONS RIGHT EAR: Conductive hearing loss LEFT EAR: Hearing within normal limits AUDIOLOGIC EVALUATION Following is a brief interpretation of the obtained findings from the audiologic evaluation. Refer to the Auditory Test Record for complete audiometric results. The patient was counseled about the test findings and appropriate audiologic recommendations were made. SUMMARY: Audiogram can be viewed under Forms/Audiology/SmartForm. OTOSCOPY RIGHT EAR: Otoscopic inspection revealed ear canal was clear with an identifiable cone of light. LEFT EAR: Otoscopic inspection revealed ear canal was clear with an identifiable cone of light. TYMPANOMETRY Description of procedure: This test is an objective evaluation of middle ear function. CPT code: 83764 RIGHT EAR: Normal ME function. LEFT EAR: Normal ME function. ACOUSTIC REFLEXES Description of procedure: This test is an objective measure of auditory and facial nerve pathways. CPT code: 58780, 07240 RIGHT EAR PROBE EAR: (ipsi right stimulus ear; contralateral left stimulus ear): Acoustic Reflex Pattern screening ipsilateral reflex at 1000 Hz was absent at 105 DB Acoustic Reflex Decay (left stimulus ear): Did not test. LEFT EAR PROBE EAR: (ipsi left stimulus ear; contralateral right stimulus ear): Acoustic Reflex Pattern screening ipsilateral reflex and 1000 Hz was present Acoustic Reflex Decay (right stimulus ear):Did not test. PURE TONE AUDIOMETRY AND SPEECH TESTING Description of procedure: This test is an objective evaluation hearing sensitivity via air and bone conduction and speech recognition testing. CPT code:95172 RIGHT EAR: Hearing Sensitivity: Hearing essentially within normal limits except for a mild conductive hearing loss at 1000 Hz only. This was double checked with phones and a screening reflex at the 1000 Hz which was absent Word Recognition Score: Good (84%). WRS is poorer than expected given hearing sensitivity. Words were presented at 60 dB HL is above (greater than or equal to 60 dB HL) intensity level for average conversational speech. The NU-6 Ordered by Difficulty Word List (25 words) was used for testing. Interpret with caution due to ESL Due to lower than expected speech understanding, a English word list was used and speech perception was noted to be excellent (96%) at an above (greater than or equal to 60 dBHL) intensity level for average conversational speech. (25 words) LEFT EAR: Hearing Sensitivity: Essentially WNL Word Recognition Score: Poor (64%). WRS is poorer than expected given hearing sensitivity. Words were presented at 55 dB HL which approximates (45-55 dB HL) intensity level for average conversational speech. The NU-6 Ordered by Difficulty Word List (25 words) was used for testing. *Interpret with caution due to ESL Due to lower than expected speech understanding, a English word list was used and speech perception was noted to be Good (88%) at an above (greater than or equal to 60 dBHL) intensity level for average conversational speech. However, this score remains worse than expected given hearing sensitivity (25 words) RECOMMENDATIONS * Continue medical follow-up with Brittani Santana MD as planned. * The patient was counseled regarding the need to continue to monitor hearing and have regu (more content not included)...[facility] 11-17-2022 Miscellaneous Notes* Telephone Encounter - Joana Gillette LPN - 11/17/2022 8:19 AM EDT Patient has been identified by name and date of : Yes Patient phones for refill(s): Requested Prescriptions Pending Prescriptions Disp Refills pantoprazole DR (PROTONIX) 40 mg tablet 90 tablet 1 Sig: Take 1 tablet by mouth once daily as needed. Date of last office visit in primary care: 10/20/2022 6 month follow-up: 04/20/2023 Last 2 Encounter Wt Readings: Date: Wt: 10/20/2022 83.9 kg (185 lb) 10/06/2022 83.7 kg (184 lb 9.6 oz) Previous labs/tests for medication: Not applicable Please advise. Thank you. Joana Gillette LPN [facility] History of Present illness Narrative* Sridhar Boles RT(R) - 11/09/2022 2:30 PM EDT Radiology Service Progress Note PATIENT NAME: Macy Morales DATE OF SERVICE: November 09, 2022 TIME: 2:47 PM PATIENT IDENTITY VERIFICATION COMPLETED USING TWO (2) IDENTIFIERS: Name and Date of confirmedby patient verbally. FALL SCREENING: Has the patient had 2 falls in the last year or 1 fall with injury or currently using an Ambulatory Assistive Device (Walker, Cane, Wheelchair, Crutches, etc.)? No PATIENT GENDER DATA: Female. status: : No status: NO. PATIENT RELEVANT IMPLANT DATA REVIEWED: Not Applicable RADIOLOGY DEPARTMENT: Bone Density PERIPHERAL IV DATA: Not applicable SIGNED BY: RT Tan(R) November 09, 2022 2:47 PM documented in this [facility]28-[facility]23 NoteHNO ID: [id number] Author: Sridhar Boles RT(Yasmeen) Service: ? Author Type: Technologist Type: Progress Notes Filed: 11/09/2022 2:47 PM Note Text: Radiology Service Progress Note PATIENT NAME: Macy Morales DATE OF SERVICE: November 09, 2022 TIME: 2:47 PM PATIENT IDENTITY VERIFICATION COMPLETED USING TWO (2) IDENTIFIERS: Name and Date of confirmed by patient verbally. FALL SCREENING: Has the patient had 2 falls in the last year or 1 fall with injury or currently using an Ambulatory Assistive Device (Walker, Cane, Wheelchair, Crutches, etc.)? No PATIENT GENDER DATA: Female. status: : No status: NO. PATIENT RELEVANT IMPLANT DATA REVIEWED: Not Applicable RADIOLOGY DEPARTMENT: Bone Density PERIPHERAL IV DATA: Not applicable SIGNED BY: RT Tan(R) November 09, 2022 2:47 [facility]08-08-2023 NoteHNO ID: [id number] Author: Ana Mccarty APRN.[employer] Service: ? Author Type: Nurse Practitioner Type: Progress Notes Filed: 10/20/2022 10:43 AM Note Text: CC Patient presents with: F/U 3 Month HPI Macy Morales is a 67 year old female who presents to the office for blood pressure. Her visit today is for follow-up. Patient was last seen for this approximately 3 months ago. Medication changes: Yes, Lisinopril increased to 20 mg daily Taking all medications as prescribed: Yes Side effects: No Home BP's: No Denies: headache, chest pain, palpitations, dyspnea, and peripheral edema. Last 4 Encounter BP Readings: Date: BP: 10/20/2022 120/68 10/06/2022 145/72 08/07/2022 115/58 07/28/2022 125/64 Last 3 Encounter Wt Readings: Date: Wt: 10/20/2022 83.9 kg (185 lb) 10/06/2022 83.7 kg (184 lb 9.6 oz) 07/28/2022 84.1 kg (185 lb 8 oz) She was evaluated for thrombocytopenia including bone marrow biopsy and extensive lab work-up that was negative. She also recently evaluated for liver disease with labs and fibroscan, results pending. 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 MEDICATIONS lisinopril (ZESTRIL) 20 mg tablet Take 1 tablet by mouth once daily. pantoprazole DR (PROTONIX) 40 mg tablet Take 40 mg by mouth once daily as needed. blood sugar diagnostic (TRUE METRIX GLUCOSE TEST STRIP) test strip Test blood sugar(s) 1 times daily. Dx: Type 2 DM - Controlled E11.9 Insulin: No glipiZIDE (GLUCOTROL XL) 2.5 mg 24 hr tablet Take 1 tablet by mouth once daily. atorvastatin (LIPITOR) 10 mg tablet Take 1 tablet by mouth daily at bedtime. For cholesterol. clotrimazole-betamethasone (LOTRISONE) cream Apply to affected area twice daily as needed. metFORMIN ER (GLUCOPHAGE XR) 500 mg 24 hr tablet Take 2 tablets by mouth twice daily with meals. FAMILY HISTORY Problem Relation Age of Onset No Known Problems Father Aneurysm Mother Cancer Brother No Known Problems Maternal Grandmother No Known Problems Maternal Grandfather No Known Problems Paternal Grandmother No Known Problems Paternal Grandfather No Known Problems Child No Known Problems Child No Known Problems Child Glaucoma No Family History Macular Degen No Family History Social History Tobacco Use Smoking status: Never Smokeless tobacco: Never Vaping Use Vaping Use: Never used Substance Use Topics Alcohol use: Not Currently Drug use: Not Currently PHYSICAL EXAM BP 120/68 Pulse 60 Resp 16 Wt 83.9 kg (185 lb) BMI 36.13 kg/m? General Appearance: well appearing, in no acute distress, alert Pysch: mood and affect broad and appropriate DATA REVIEWED: Most recent labs ASSESSMENT/PLAN: 1. Primary hypertension - ICD9: 401.9, ICD10: I10 (primary diagnosis) - Controlled - Continue current medications - Recommend home blood pressure monitoring, to bring results to next visit - Encouraged sodium restriction, DASH or Mediterranean diet - Recommend regular aerobic exercise - Discussed need for and benefit of weight loss. BMI 36.13 kg/(m2) 2. Thrombocytopenia (HCC) - ICD9: 287.5, ICD10: D69.6 Stable on recent labs. follow-up as directed, 3. Abnormal liver enzymes - ICD9: 790.5, ICD10: R74.8 Follow-up with GI as directed 4. Pure hypercholesterolemia - ICD9: 272.0, ICD10: E78.00 Recheck in one month - LIPID PANEL BASIC 5. Controlled type 2 diabetes mellitus without complication, without long-term current use of insulin (HCC) - ICD9: 250.00, ICD10: E11.9 - HGB A1C 6. Screening for osteoporosis - ICD9: V82.81, ICD10: Z13.820 - DXA-AXIAL SKELETON 7. Asymptomatic menopause - ICD9: V49.81, ICD10: Z78.0 - DXA-AXIAL SKELETON Prescription instructions reviewed with patient as applicable. Potential red flag symptoms discussed with the patient. Reviewed appropriate action plan to take if red flag symptoms occur. Patient agreeable to treatment plan Ana Mccarty APRN.[facility]08-08-2023 History of Present illness Narrative* Ana Mccarty APRN.[employer] - 10/20/2022 10:27 AM EDT CC Patient presents with: F/U 3 Month HPI Macy Morales is a 67 year old female who presents to the office for blood pressure. Her visit today is for follow-up. Patient was last seen for this approximately 3 months ago. Medication changes: Yes, Lisinopril increased to 20 mg daily Taking all medications as prescribed: Yes Side effects: No Home BP's: No Denies: headache, chest pain, palpitations, dyspnea, and peripheral edema. Last 4 Encounter BP Readings: Date: BP: 10/20/2022 120/68 10/06/2022 145/72 08/07/2022 115/58 07/28/2022 125/64 Last 3 Encounter Wt Readings: Date: Wt: 10/20/2022 83.9 kg (185 lb) 10/06/2022 83.7 kg (184 lb 9.6 oz) 07/28/2022 84.1 kg (185 lb 8 oz) She was evaluated for thrombocytopenia including bone marrow biopsy and extensive lab work-up that was negative. She also recently evaluated for liver disease with labs and fibroscan, results pending. 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 MEDICATIONS lisinopril (ZESTRIL) 20 mg tablet Take 1 tablet by mouth once daily. pantoprazole DR (PROTONIX) 40 mg tablet Take 40 mg by mouth once daily as needed. blood sugar diagnostic (TRUE METRIX GLUCOSE TEST STRIP) test strip Test blood sugar(s) 1 times daily. Dx: Type 2 DM - Controlled E11.9 Insulin: No glipiZIDE (GLUCOTROL XL) 2.5 mg 24 hr tablet Take 1 tablet by mouth once daily. atorvastatin (LIPITOR) 10 mg tablet Take 1 tablet by mouth daily at bedtime. For cholesterol. clotrimazole-betamethasone (LOTRISONE) cream Apply to affected area twice daily as needed. metFORMIN ER (GLUCOPHAGE XR) 500 mg 24 hr tablet Take 2 tablets by mouth twice daily with meals. FAMILY HISTORY Problem Relation Age of Onset No Known Problems Father Aneurysm Mother Cancer Brother No Known Problems Maternal Grandmother No Known Problems Maternal Grandfather No Known Problems Paternal Grandmother No Known Problems Paternal Grandfather No Known Problems Child No Known Problems Child No Known Problems Child Glaucoma No Family History Macular Degen No Family History Social History Tobacco Use Smoking status: Never Smokeless tobacco: Never Vaping Use Vaping Use: Never used Substance Use Topics Alcohol use: Not Currently Drug use: Not Currently PHYSICAL EXAM BP 120/68 Pulse 60 Resp 16 Wt 83.9 kg (185 lb) BMI 36.13 kg/m General Appearance: well appearing, in no acute distress, alert Pysch: mood and affect broad and appropriate DATA REVIEWED: Most recent labs ASSESSMENT/PLAN: 1. Primary hypertension - ICD9: 401.9, ICD10: I10 (primary diagnosis) - Controlled - Continue current medications - Recommend home blood pressure monitoring, to bring results to next visit - Encouraged sodium restriction, DASH or Mediterranean diet - Recommend regular aerobic exercise - Discussed need for and benefit of weight loss. BMI 36.13 kg/(m^2) 2. Thrombocytopenia (HCC) - ICD9: 287.5, ICD10: D69.6 Stable on recent labs. follow-up as directed, 3. Abnormal liver enzymes - ICD9: 790.5, ICD10: R74.8 Follow-up with GI as directed 4. Pure hypercholesterolemia - ICD9: 272.0, ICD10: E78.00 Recheck in one month - LIPID PANEL BASIC 5. Controlled type 2 diabetes mellitus without complication, without long-term current use of insulin (HCC) - ICD9: 250.00, ICD10: E11.9 - HGB A1C 6. Screening for osteoporosis - ICD9: V82.81, ICD10: Z13.820 - DXA-AXIAL SKELETON 7. Asymptomatic menopause - ICD9: V49.81, ICD10: Z78.0 - DXA-AXIAL SKELETON Prescription instructions reviewed with patient as applicable. Potential red flag symptoms discussed with the patient. Reviewed appropriate action plan to take if red flag symptoms occur. Patient agreeable to treatment plan Ana Mccarty APRN.DONNY documented [facility]23 NoteHNO ID: [id number] Author: Mamie Goldstein APRN.DONNY Service: ? Author Type: Nurse Practitioner Type: Progress Notes Filed: 10/06/2022 4:43 PM Note Text: Patient fasting for 3 hours:Yes Fibroscan was performed on October 06, 2022, by Memo Doe RN and results are interpreted by Mamie Goldstein Diagnosis: Abnormal liver enzymes Please refer to get images report for individual readings Number of readings: 10 IQR %: 18% E (kpa): 34.3 CAP: 274 Impression The reading was adequate. FS =34.3 kPA. The CAP score is 274 and corresponds to steatosis grade of S2. The fibrosis interpretation threshold for abnormal liver enzymes diagnosis in Fibroscan is not well-established and the reading may serve as a reference point for follow up. This reading corresponds: A 17% chance of stage 0-2 fibrosis A 83% chance of stage 3-4 fibrosis (advanced fibrosis) A 61% chance of stage 4 fibrosis (cirrhosis). Mamie Goldstein APRN.[employer] Others/All Fibroscan Fibrosis Risk <7 kPA = F0-F2 94%, F3+F4 6%, F4 <1% <10 kPA = F0-F2 88%, F3+F4 12%, F4 1.8% 10-15 kPA = F0-F2 47%, F3+F4 53%, F4 19% >15 kPA = F0-F2 17%, F3+F4 83%, F4 61% Grade CAP value up to 237 dB/M corresponds to S0 (< 10 % Fat) CAP value between (238 - 258 dB/M) corresponds to S1 (>/= 11 % Fat) CAP value between (259 - 289 dB/M) corresponds to S2 (>/= 33 % Fat) CAP value > 290dB/M corresponds to S3 (>/= 67 % Fat) stage 0 ( S0:< 10 % steatosis) stage 1 (>/= S1: 11%-33% steatosis) stage 2 (>/= S2: 34%-66% steatosis) stage 3 (>/= S3: > 66% steatosis) Reference Giuseppe Y, Lino Q, Chin T, Juli J, Giuseppe H, Adam T. Controlled attenuation parameter for assessment of hepatic steatosis grades: a diagnostic meta-analysis. Int J Clin Exp Med. 2015 Dec 15;8(10):54346-50. PMID: 40470067; PMCID: [id number]. Chepe Hammonds, Ghislaine BISHNU, Fredi M, Radha F, Keith J, Wendy O, Vee F, Jt M, Denice G, Rita A, Alva E, Annalisa L, Demetrius G, Lakshmi A, Anabelle U, Jennifer S, Cinthia P, Lata V, de Negin V, Antoinette M, Donta CHINCHILLA. Refining the Baveno elastography criteria for the definition of compensated advanced chronic liver disease. J Hepatol. 2020;74(5):6558-6452. doi: 10.1016/j.jhep.2020.11.050. Epub 2019Feb 20. PMID: 82363905.[facility]07-25-2023 NoteHNO ID: [id number] Author: Cecilia Powers MD Service: ? Author Type: Physician Type: Progress Notes Filed: 10/06/2022 3:37 PM Note Text: History and Physical Gastroenterology Patient: Macy Morales ( ) Primary Care Physician: Elder Reddy MD Subjective Chief Complaint: Abnormal LFTs and thrombocytopenia History of Present Illness: 67 year old female with a PMHx of type 2 diabetes, hypertension, hypercholesterolemia, abnormal liver enzymes, elevated TSH and prior right-sided Dover's palsy who presents for evaluation of abnormal liver enzymes and thrombocytopenia. Patient follows with student advisor Dr. Lopes for thrombocytopenia. In 2021, platelet count was 91,000. This year, her platelets were 72,000. She had a RUQ US in 08/2021 that suggested coarse echotexture of the liver. Echogenicity was normal. Surface contour was slightly lobular and no lesions were identified. No abnormalities of the biliary tree or gallbladder were noted. Spleen was noted to measure 10.9 cm in length. She had a bone marrow biopsy done on 08/24/22, which was negative. Her CMP over the last 2 years have suggested hepatocellular injury. She has no symptoms except for fatigue. She gets acid reflux if she eats late at night, but does not happen consistently. She is prescribed Protonix, but does not take it. Denies pain, diarrhea, constipation, nausea, vomiting. 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 pantoprazole DR (PROTONIX) 40 mg tablet Take 40 mg by mouth once daily as needed. blood sugar diagnostic (TRUE METRIX GLUCOSE TEST STRIP) test strip Test blood sugar(s) 1 times daily. Dx: Type 2 DM - Controlled E11.9 Insulin: No glipiZIDE (GLUCOTROL XL) 2.5 mg 24 hr tablet Take 1 tablet by mouth once daily. atorvastatin (LIPITOR) 10 mg tablet Take 1 tablet by mouth daily at bedtime. For cholesterol. clotrimazole-betamethasone (LOTRISONE) cream Apply to affected area twice daily as needed. metFORMIN ER (GLUCOPHAGE XR) 500 mg 24 hr tablet Take 2 tablets by mouth twice daily with meals. Active Inpatient Medications No current facility-administered medications for this visit. Allergies: ALLERGIES No Known Allergies Family History: FAMILY HISTORY Problem Relation Age of Onset No Known Problems Father Aneurysm Mother Cancer Brother No Known Problems Maternal Grandmother No Known Problems Maternal Grandfather No Known Problems Paternal Grandmother No Known Problems Paternal Grandfather No Known Problems Child No Known Problems Child No Known Problems Child Glaucoma No Family History Macular Degen No Family History Social History: Social History Tobacco Use Smoking status: Never Smokeless tobacco: Never Vaping Use Vaping Use: Never used Substance Use Topics Alcohol use: Not Currently Drug use: Not Currently Other Review of Systems: GENERAL: No fevers, chills, weight loss. Positive for fatigue. RESPIRATORY: No shortness of breath CARDIOVASCULAR: No chest pain, leg swelling GI: No abdominal pain, nausea, vomiting, diarrhea, constipation Objective Vitals: BP 145/72 (BP Site: Right Arm, BP Position: Sitting, BP Cuff Size: Regular Adult) Pulse 94 Temp 36.4 ?C (97.5 ?F) (Temporal) Ht 152.4 cm (5') Wt 83.7 kg (184 lb 9.6 oz) SpO2 99% BMI 36.05 kg/m? Physical Exam: GENERAL: No acute distress HEENT: Anicteric sclera. EOMI. PERRL. CARDIAC: Normal rate, regular rhythm. RESPIRATORY: Normal respiratory effort with symmetric expansion. Lungs clear to auscultation. No crackles or wheezes ABDOMEN: Bowel sounds present. Soft, non-tender, non-distended. EXTREMITIES: Warm. No peripheral edema NEURO: Oriented to person, place, time. PSYCH: Appropriate mood and affect Diagnostic Studies: Labs CBC: COAG: BMP: CHEM: HEPATIC: URINALYSIS:No results for input(s): UPH, SPGR, UGLUC, UKET, UBILI, UROBIL, UHB, URBC, UPROT, UWBC, LEUKEST, SSA in the last 168 hours. Invalid input(s): NITR CARDIAC: Imaging RUQ US (09/21/22): Coarse hepatic echotexture. Suboptimal visualization of the liver and pancreas, due to overlying bowel gas Otherwise normal sonographic appearance of the right upper quadrant. Normal sonographic appearance of the spleen RUQ US (09/02/21): Coarse echotexture of the liver. Pathology Bone marrow biopsy (08/24/22): There is no evidence of involvement by a lymphoproliferative disorder or abnorma (more content not included)...[facility]07-19-2023 Note HNO ID: [id number] Author: Brittani Santana MD Service: ? Author Type: Physician Type: Progress Notes Filed: 09/30/2022 1:32 PM Note Text: This consult is seen at the kind request of Memo Treviño of neurology, and my final recommendations will be communicated to the requesting health care provider by way of shared electronic medical record. This note is formatted with the impression and plan first and the history and physical to follow. IMPRESSION 57-year-old female with recent right-sided facial paralysis and right-sided tinnitus. RECOMMENDATION/PLAN I informed the patient I do not believe that her ear was the cause of her facial weakness. Her CT scan at the time of her facial weakness showed no evidence of mastoid or middle ear disease. For her tinnitus, I recommend pending hearing test. I will see her back after the hearing test. Chief Complaint Right-sided facial paralysis, right-sided ear pain. History of Present Illness Macy Morales is a 67 year old female present for evaluation of right-sided facial paralysis and right-sided ear pain. Patient stated that any May 2022, she developed right-sided ear pain. 3 days later, her right face became paralyzed. Patient was seen in outside hospital and had a CT scan and MRI scan all came back normal. The CT scan was reviewed by me and there was no evidence of middle ear effusion or mastoid effusion. Patient's ear pain lasted about a week and then subsided. Her facial movement has slowly returned. She denies any current ear pain or any parotid swelling/pain. She does endorse tinnitus in the right ear since May. She feels like her hearing has decreased slightly. She denies any vertigo. 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 Controlled type 2 diabetes mellitus without complication, without long-term current use of insulin (HCC) 04/28/2021 COVID-19 02/05/2020 Obesity, Class II, BMI 35-39.9 07/23/2021 Primary hypertension 07/23/2021 Pure hypercholesterolemia 11/10/2019 PAST SURGICAL HISTORY Procedure Laterality Date NONE FAMILY HISTORY Problem Relation Age of Onset No Known Problems Father Aneurysm Mother Cancer Brother No Known Problems Maternal Grandmother No Known Problems Maternal Grandfather No Known Problems Paternal Grandmother No Known Problems Paternal Grandfather No Known Problems Child No Known Problems Child No Known Problems Child Glaucoma No Family History Macular Degen No Family History CURRENT OUTPATIENT MEDICATIONS Current Outpatient Medications on File Prior to Visit Medication Sig lisinopril (ZESTRIL) 20 mg tablet Take 1 tablet by mouth once daily. pantoprazole DR (PROTONIX) 40 mg tablet Take 40 mg by mouth once daily as needed. blood sugar diagnostic (TRUE METRIX GLUCOSE TEST STRIP) test strip Test blood sugar(s) 1 times daily. Dx: Type 2 DM - Controlled E11.9 Insulin: No glipiZIDE (GLUCOTROL XL) 2.5 mg 24 hr tablet Take 1 tablet by mouth once daily. atorvastatin (LIPITOR) 10 mg tablet Take 1 tablet by mouth daily at bedtime. For cholesterol. clotrimazole-betamethasone (LOTRISONE) cream Apply to affected area twice daily as needed. metFORMIN ER (GLUCOPHAGE XR) 500 mg 24 hr tablet Take 2 tablets by mouth twice daily with meals. No current facility-administered medications on file prior to visit. ALLERGIES ALLERGIES No Known Allergies The remainder of the patient's history and review of systems is on the outpatient questionaire which was reviewed by me and placed in the outpatient chart. PHYSICAL EXAMINATION Appearance: General examination of the patient's external face, head and neck reveals no abnormalities. The patient is not retrognathic The patient's voice is strong and clear and they communicate easily. Ears: Exam of the ears revealed normal appearing external auditory canals, tympanic membranes, and middle ears. No signs of infection or fluid were seen. Nose: External nasal exam was normal. Throat: There were no lesions to visualization or palpation of the lips, cheeks, gums, floor of mouth, tongue, hard and soft palate, tonsillar pillars or posterior pharyngeal wall. Neck: Palpation of the neck revealed no adenopathy, salivary gland masses or asymmetry, or thyroid masses or enlargement. Cranial nerve VII: Right-sided House-Brackman 1 out of 6 except for right upper lip which is 2 out of 6. Brittani Santana [facility]07-19-2023 History of Present illness Narrative* Brittani Santana MD - 09/30/2022 1:27 PM EDT This consult is seen at the kind request of Memo Treviño of neurology, and my final recommendations will be communicated to the requesting health care provider by way of shared electronic medicalrecord. This note is formatted with the impression and plan first and the history and physical to follow. IMPRESSION 57-year-old female with recent right-sided facial paralysis and right-sided tinnitus. RECOMMENDATION/PLAN I informed the patient I do not believe that her ear was the cause of her facial weakness. Her CT scan at the time of her facial weakness showed no evidence of mastoid or middle ear disease. For her tinnitus, I recommend pending hearing test. I will see her back after the hearing test. Chief Complaint Right-sided facial paralysis, right-sided ear pain. History of Present Illness Macy Morales is a 67 year old female present for evaluation of right-sided facial paralysis and right-sided ear pain. Patient stated that any May 2022, she developed right-sided ear pain. 3 days later, her right face became paralyzed. Patient was seen in outside hospital and had a CT scan and MRI scan all came back normal. The CT scan was reviewed by me and there was no evidence of middle ear effusion or mastoid effusion. Patient's ear pain lasted about a week and then subsided. Her facial movement has slowly returned. She denies any current ear pain or any parotid swelling/pain. She does endorse tinnitus in the right ear since May. She feels like her hearing has decreased slightly. She denies any vertigo. 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 Controlled type 2 diabetes mellitus without complication, without long-term current use of insulin (HCC) 04/28/2021 COVID-19 02/05/2020 Obesity, Class II, BMI 35-39.9 07/23/2021 Primary hypertension 07/23/2021 Pure hypercholesterolemia 11/10/2019 PAST SURGICAL HISTORY Procedure Laterality Date NONE FAMILY HISTORY Problem Relation Age of Onset No Known Problems Father Aneurysm Mother Cancer Brother No Known Problems Maternal Grandmother No Known Problems Maternal Grandfather No Known Problems Paternal Grandmother No Known Problems Paternal Grandfather No Known Problems Child No Known Problems Child No Known Problems Child Glaucoma No Family History Macular Degen No Family History CURRENT OUTPATIENT MEDICATIONS Current Outpatient Medications on File Prior to Visit Medication Sig lisinopril (ZESTRIL) 20 mg tablet Take 1 tablet by mouth once daily. pantoprazole DR (PROTONIX) 40 mg tablet Take 40 mg by mouth once daily as needed. blood sugar diagnostic (TRUE METRIX GLUCOSE TEST STRIP) test strip Test blood sugar(s) 1 times daily. Dx: Type 2 DM - Controlled E11.9 Insulin: No glipiZIDE (GLUCOTROL XL) 2.5 mg 24 hr tablet Take 1 tablet by mouth once daily. atorvastatin (LIPITOR) 10 mg tablet Take 1 tablet by mouth daily at bedtime. For cholesterol. clotrimazole-betamethasone (LOTRISONE) cream Apply to affected area twice daily as needed. metFORMIN ER (GLUCOPHAGE XR) 500 mg 24 hr tablet Take 2 tablets by mouth twice daily with meals. No current facility-administered medications on file prior to visit. ALLERGIES ALLERGIES No Known Allergies The remainder of the patient's history and review of systems is on the outpatient questionaire which was reviewed by me and placed in the outpatient chart. PHYSICAL EXAMINATION Appearance: General examination of the patient's external face, head and neck reveals no abnormalities. The patient is not retrognathic The patient's voice is strong and clear and they communicate easily. Ears: Exam of the ears revealed normal appearing external auditory canals, tympanic membranes, and middle ears. No signs of infection or fluid were seen. Nose: External nasal exam was normal. Throat: There were no lesions to visualization or palpation of the lips, cheeks, gums, floor of mouth, tongue, hard and soft palate, tonsillar pillars or posterior pharyngeal wall. Neck: Palpation of the neck revealed no adenopathy, salivary gland masses or asymmetry, or thyroid masses or enlargement. Cranial nerve VII: Right-sided House-Brackman 1 out of 6 except for right upper lip which is 2 out of 6. Brittani Santana MD documented in this [facility]07-17-2023 Instructions* Patient Instructions* Katherine Goldstein, OD - 09/28/2022 9:16 AM EDT Use Systane ointment (nighttime) or Refresh PM in right eye before patching at night Patch right eye at night (use eye pads and tape) Use Systane Complete or Ultra or Refresh Relieva 3-5 times per day in right eye documented in this [facility]-2023 NoteHNO ID: [id number] Author: Katherine Goldstein OD Service: ? 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 Type 2 diabetes mellitus without retinopathy (HCC) Not assessed today 3. Combined forms of age-related cataract of both eyes Mild- monitor 4. Regular astigmatism of both eyes 5. 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 Type 2 diabetes mellitus without retinopathy (HCC) Not assessed today 3. Combined forms of age-related cataract of both eyes Mild- monitor 4. Regular astigmatism of both eyes 5. Presbyopia Finalized spec rx Follow-up in 6 months for dry eye check Katherine Goldstein, RALPH September 28, 2022 9:12 AM documented in this [facility]07-10-2023 History of Present illness Narrative* Radha Colbert RDMS - 09/21/2022 9:15 AM EDT Radiology Service Progress Note PATIENT NAME: Macy Morales DATE OF SERVICE: September 21, 2022 TIME: 10:28 AM PATIENT IDENTITY VERIFICATION COMPLETED USING TWO (2) IDENTIFIERS: Name and Date of confirmedby patient verbally. FALL SCREENING: Has the patient had 2 falls in the last year or 1 fall with injury or currently using an Ambulatory Assistive Device (Walker, Cane, Wheelchair, Crutches, etc.)? No PATIENT GENDER DATA: Female. status: : No status: NO. PATIENT RELEVANT IMPLANT DATA REVIEWED: Not Applicable RADIOLOGY DEPARTMENT: Ultrasound PERIPHERAL IV DATA: Not applicable SIGNED BY: Radha Colbert RDMS RVT September 21, 2022 10:28 AM documented in this [facility]07-10-2023 NoteHNO ID: [id number] Author: Radha Colbert RDMS Service: ? Author Type: Legal Technician Type: Progress Notes Filed: 09/21/2022 10:29 AM Note Text: Radiology Service Progress Note PATIENT NAME: Macy Morales DATE OF SERVICE: September 21, 2022 TIME: 10:28 AM PATIENT IDENTITY VERIFICATION COMPLETED USING TWO (2) IDENTIFIERS: Name and Date of confirmed by patient verbally. FALL SCREENING: Has the patient had 2 falls in the last year or 1 fall with injury or currently using an Ambulatory Assistive Device (Walker, Cane, Wheelchair, Crutches, etc.)? No PATIENT GENDER DATA: Female. status: : No status: NO. PATIENT RELEVANT IMPLANT DATA REVIEWED: Not Applicable RADIOLOGY DEPARTMENT: Ultrasound PERIPHERAL IV DATA: Not applicable SIGNED BY: Radha Colbert RDMS RVT September 21, 2022 10:28 [facility]06-27-2023 Miscellaneous Notes* Telephone Encounter - Maddy Quintana Pss - 09/08/2022 1:15 PM EDT US and lab scheduled with Ingris * Telephone Encounter - Yuko Gaspar LPN - 09/07/2022 10:20 AM EDT Patient's daughter, Ingris, is aware of all information. PSS- please contact patient's daughter to schedule US and lab appointment. Yuko Gaspar LPN * Telephone Encounter - Kavon Lopes DO - 09/06/2022 1:05 PM EDT Can let her know the results of her bone marrow biopsy were normal. No evidence of lymphoma, leukemia or other bone marrow disorder. This is good news. The fluctuation in her platelet count may be related to an autoimmune disorder or evolving liver disease. I recommend repeat ultrasound of liver and spleen. She should follow-up with Dr. Reddy for management of liver disease. CBC the day she comes for repeat ultrasound. Kavon Lopes DO documented in this [facility]05-31-2023 Miscellaneous Notes* Telephone Encounter - Yuko Gaspar LPN - 08/12/2022 11:41 AM EDT Patient is scheduled at [facility] 08/24/2022. Yuko Gaspar LPN * Telephone Encounter - Tori Walsh - 08/06/2022 11:28 AM EDT As of this note pt not scheduled. Do not see any documentation in TE or FYIs that [facility] has tried to reach pt * Telephone Encounter - Serena Baires - 08/05/2022 8:56 AM EDT LM for [facility] to contact patient's daughter to schedule and gave our nurse line for questions/call back. Serena Baires * Telephone Encounter - Yuko Gaspar LPN - 08/05/2022 8:52 AM EDT Please contact [facility] as directed below (number is below as well) and contact patient to coordinate scheduling. Yuko Gaspar LPN * Telephone Encounter - Tori Walsh - 08/05/2022 8:22 AM EDT As of this note pt not scheduled. Do not see any documentation in TE or FYIs that [facility] has tried to reach pt. * Telephone Encounter - Tori Walsh - 08/03/2022 9:19 AM EDT As of this note pt not yet scheduled * Telephone Encounter - Maddy Quintana Pss - 07/31/2022 3:33 PM EDT Ingris, daughter called back for scheduling. Called [facility], left detailed message to schedule BMBX with Sedation. Informed office to contact Daughter, Ingr[facility] for scheduling, or our office with any questions. Please leave encounter open until scheduled. * Telephone Encounter - Yuko Gaspar LPN - 07/30/2022 4:28 PM EDT PSS- please contact patient or patient's daughter and [facility] to assist in scheduling. Yuko Gaspar LPN * Telephone Encounter - Yuko Gaspar LPN - 07/29/2022 8:59 AM EDT Yes, [facility] does CT guided BMBX under sedation. PSS- I left a message for patient to contact our office. Please call [facility] scheduling at [phone], to schedule and make sure they are aware that this needs to be under sedation. Please file order. Yuko Gaspar LPN * Telephone Encounter - Kavon Lopes DO - 07/28/2022 8:44 PM EDT Let her know her platelet count has improved. I still recommend bone marrow biopsy. Please contact IR at [facility] to see if they perform CT-guided bone marrow biopsies under sedation. She said she would not undergo a bone marrow biopsy without sedation. Kavon Lopes DO documented in this [facility]05-09-2023 Miscellaneous Notes* Telephone Encounter - Tori Walsh - 07/21/2022 9:28 AM EDT Spoke with pt using historical interpreter services and warm transferred to [facility] * Telephone Encounter - Kym Llanes Pss - 07/20/2022 5:03 PM EDT I called and had [employer] ([employer] services) and Macy on phone to transfer patient to [facility] disease [place] so she could be schedule in Hepatology. When I noticed that the patient's insurance was rejected, it was 4:55 PM so I confirmed the insurance with the patient and told hersomeone would call her tomorrow to get her in touch with [facility], she confirmed this information. Insurance was verified via [employer]port and that was scanned into [employer]. Hepatology can not be scheduled by us through the DDQ because it pulls incorrect appointment. Per work leader she stated that patient needs to speak with [facility] and they will schedule the patient with hepatology correctly Please call patient back when able to warm transfer her to [facility] at [phone] * Telephone Encounter - Yuko Gaspar LPN - 07/20/2022 12:43 PM EDT Patient is aware of all information and verbalized understanding. PSS- please contact patient to schedule with hepatology. Yuko Gaspar LPN * Telephone Encounter - Yuko Gaspar LPN - 07/20/2022 8:08 AM EDT Message left on patient's and on daughter's VM asking for a return call. Yuko Gaspar LPN * Telephone Encounter - Elder Reddy MD - 07/20/2022 7:58 AM EDT ASSESSMENT/PLAN: 1. Abnormal liver enzymes - ICD9: 790.5, ICD10: R74.8 (primary diagnosis) - CONSULT TO HEPATOLOGY 2. Thrombocytopenia (HCC) - ICD9: 287.5, ICD10: D69.6 - CONSULT TO HEPATOLOGY Elder Reddy MD * Telephone Encounter - Kavon Lopes DO - 07/19/2022 6:50 PM EDT Can let her know that all the lab work I ordered to work-up the low platelet count suggest she has liver disease. I recommend she contact Dr. Reddy for further work-up of this and consider hepatology referral. We will also consider obtaining hepatic vascular ultrasound and repeat ultrasound of spleen. I can reevaluate her after she has had hepatology evaluation. In the meantime avoid nonsteroidal medications and any blood thinner medication. Would also avoid Tylenol. No alcohol. Kavon Lopes DO documented in this [facility]05-01-2023 Miscellaneous Notes* Telephone Encounter - Serena Baires - 07/13/2022 4:16 PM EDT Check out comments: Labs today. OV in about 2-3 weeks. Patient completed labs. LM for patient to return call to schedule office visit. Utilized [employer] services and scheduled. Serena Baires documented in this encounterM[facility]05-01-2023 History of Present illness Narrative* Kavon Lopes, DO - 07/13/2022 11:26 AM EDT Patient referred by Dr. Reddy for thrombocytopenia. The impression and plan will be communicated by way of the shared electronic record or faxed under separate cover letter. HPI: The patient is a 66-year-old female with a past medical history significant for type 2 diabetes, hypertension, hypercholesterolemia, abnormal liver enzymes, elevated TSH and prior right-sided Dover's palsy. She had a CBC in July 2021 and a repeat in June 2022. In 2021, platelet count was 91,000. This yearwas 78,000. MPV was increased. Remainder of the CBC was normal. No differential performed. An ultrasound of the right upper quadrant on 08/2021 suggested coarse echotexture of the liver. Echogenicity was normal. Surface contour was slightly lobular and no lesions were identified. No abnormalities of the biliary tree or gallbladder were noted. Spleen was noted to measure 10.9 cm in length. Patient had presented to [facility] emergency room on 06/01/2022 with complaints of left-sided facial droop. Symptoms was associated with slurred speech. She also had weakness in the left hand. An echocardiogram on 06/01 demonstrated normal left ventricle systolic function with estimated ejection fraction 75%. Left atrium was mildly enlarged. Pulmonary artery systolic pressure was 33 mmHg. Mid cavitary dynamic gradient demonstrated 21 mm increasing to 51 mm with Valsalva. There was 1+ tricuspid regurgitation. MRI of the brain on 06/02 suggested no intracranial mass, hemorrhage or acute territorial infarct. There was no significant sinus disease. 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 On initial presentation 06/01, patient's white count was 5200. By hospital day 3 it had declined to 2800. The differential revealed the neutrophils went from 2500 on presentation at 1300. Absolute lymphocyte count went from 7495-3130. Platelet count was 100,000 on 06/01 and 63,000 on 06/03. Still using nocturnal eye drops. Difficulty eating due to food and water leaking from right side of mouth. Occasional right sided STEWARD--around ear. No history of bleeding problems. No prior surgeries. Had teeth extracted. No bleeding issues. Three children all vaginal delivered. No bleeding issues. Previously normal menses. No clots. No history of venous thromboembolism. 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 Controlled type 2 diabetes mellitus without complication, without long-term current use of insulin (HCC) 04/28/2021 COVID-19 02/05/2020 Obesity, Class II, BMI 35-39.9 07/23/2021 Primary hypertension 07/23/2021 Pure hypercholesterolemia 11/10/2019 PAST SURGICAL HISTORY Procedure Laterality Date NONE ALLERGIES No Known Allergies Current Outpatient Medications Medication Sig carboxymethylcellulose sodium (ARTIFICIAL TEARS) 1 % drops Use 1-2 Drops in the right eye as needed(dry eyes). pantoprazole DR (PROTONIX) 40 mg tablet Take 40 mg by mouth once daily as needed. blood sugar diagnostic (TRUE METRIX GLUCOSE TEST STRIP) test strip Test blood sugar(s) 1 times daily. Dx: Type 2 DM - Controlled E11.9 Insulin: No glipiZIDE (GLUCOTROL XL) 2.5 mg 24 hr tablet Take 1 tablet by mouth once daily. atorvastatin (LIPITOR) 10 mg tablet Take 1 tablet by mouth daily at bedtime. For cholesterol. clotrimazole-betamethasone (LOTRISONE) cream Apply to affected area twice daily as needed. metFORMIN ER (GLUCOPHAGE XR) 500 mg 24 hr tablet Take 2 tablets by mouth twice daily with meals. lisinopril (ZESTRIL, PRINIVIL) 10 mg tablet Take 1 tablet by mouth once daily. No current facility-administered medications for this visit. Social History Tobacco Use Smoking status: Never Smokeless tobacco: Never Vaping Use Vaping Use: Never used Substance Use Topics Alcohol use: Not Currently Drug use: Not Currently Family History Problem Relation Age of Onset No Known Problems Father Aneurysm Mother Cancer Brother No Known Problems Maternal Grandmother No Known Problems Maternal Grandfather No Known Problems Paternal Grandmother No Known Problems Paternal Grandfather No Known Problems Child No Known Problems Child No Known Problems Child Glaucoma No Family History Macular Degen No Family History ROS: Constitutional: Denies episodes of fever and night sweats. Not significantly fatigued. Normal appetite. Neuro: Denies vertigo, dizziness and imbalance. Denies symptoms of neuropathy. HEENT: No recent change in voice, vision or hearing. Resp: Denies cough, wheeze and hemoptysis. Denies shortness of breath at rest. Denies CRONIN. CVS: Denies exertional chest pain, PND, orthopnea and LE edema. Occasional palpitation. GI: Denies dysphagia and odynophagia. Occasional reflux. Occasional n/v if eats late at night. Regular bowel movements. No black or bloody stools. : Denies dysuria or gross hematuria. No symptoms of bladder outlet obstruction. Endo: Denies hot flashes. Denies polyuria and polydipsia. Denies heat and cold intolerance. Musculoskeletal: Denies bone, back and muscular pain. Occasional b/l knee pain. Derm: Denies rash. Denies jaundice and diffuse pruritis. Heme: Denies easy and unexplained bruising. Psych: Normal mood. PHYSICAL EXAM: Vitals: Blood pressure 130/73, pulse 76, temperature 36.3 C (97.3 F), temperature source Temporal, height 149.9 cm (4' 11), weight 85.3 kg (188 lb). Well-appearing and in no acute distress. EYES: Sclerae are anicteric bilaterally. ENT: Oral mucosa is unremarkable. There is no sign of thrush or mucositis. LYMPHATIC: There is no palpable cervical, supraclavicular or axillary adenopathy. RESPIRATORY: Inspiratory breath sounds are of diminished in all coleman. No rales, wheezes or rhonchi. CARDIOVASCULAR: Rhythm is regular. Varicosities left medial ankle. ABDOMEN: The abdomen is obese and nondistended. No organomegaly. No tenderness. Extremities: No swelling or edema. SKIN: No jaundice or rash. No petechiae. NEUROLOGIC: criminal justice faculty II-XII are grossly intact. No focal motor weakness. LABORATORY DATA: Component Latest Ref Rng & Units 07/28/2021 11/19/2021 04/15/2022 06/16/2022 Protein, Total 6.3 - 8.0 g/dL 8.0 8.0 Albumin 3.9 - 4.9 g/dL 4.1 4.1 Calcium 8.5 - 10.2 mg/dL 9.8 9.7 Bilirubin, Total 0.2 - 1.3 mg/dL 1.0 1.3 Alkaline Phosphatase 34 - 123 U/L 224 (H) 237 (H) AST 13 - 35 U/L 64 (H) 71 (H) ALT 7 - 38 U/L 50 (H) 53 (H) Glucose 74 - 99 mg/dL 157 (H) 127 (H) BUN 7 - 21 mg/dL 7 6 (L) Creatinine 0.58 - 0.96 mg/dL 0.51 (L) 0.40 (L) Sodium 136 - 144 mmol/L 139 138 Potassium 3.7 - 5.1 mmol/L 5.1 4.3 Chloride 97 - 105 mmol/L 102 102 CO2 22 - 30 mmol/L 27 24 Anion Gap 9 - 18 mmol/L 10 12 eGFR >=60 mL/min/1.73m 105 111 WBC 3.70 - 11.00 k/uL 5.03 4.26 RBC 3.90 - 5.20 m/uL 4.96 4.76 Hemoglobin 11.5 - 15.5 g/dL 14.8 14.5 Hematocrit 36.0 - 46.0 % 46.0 43.9 MCV 80.0 - 100.0 fL 92.7 92.2 MCH 26.0 - 34.0 pg 29.8 30.5 MCHC 30.5 - 36.0 g/dL 32.2 33.0 RDW-CV 11.5 - 15.0 % 14.6 15.8 (H) Platelet Count 150 - 400 k/uL 91 (L) 78 (L) MPV 9.0 - 12.7 fL 14.0 (H) 13.0 (H) Absolute nRBC <0.01 k/uL <0.01 <0.01 Cholesterol, Total <200 mg/dL 267 (H) 202 (H) Triglyceride <150 mg/dL 139 85 HDL Cholesterol >39 mg/dL 87 93 Non HDL Cholesterol <130 mg/dL 180 (H) 109 Fasting Time hrs 12 12 VLDL Cholesterol <30 mg/dL 28 17 TC:HDL Ratio <5.10 3.07 2.17 LDL Cholesterol <100 mg/dL 152 (H) 92 LDL:HDL Ratio <2.54 1.75 0.99 Hemoglobin A1C 4.3 - 5.6 % 8.3 (H) 7.2 (H) 6.8 (H) Estimated Average Glucose mg/dL 192 160 148 TSH 0.270 - 4.200 mIU/L 6.660 (H) 4.590 (H) 3.310 ASSESSMENT/PLAN: (D69.6) Thrombocytopenia (HCC) Assessment: -The patient is a 66-year-old female who has a past medical history as outlined above. She has at least a 1 year history of moderate thrombocytopenia not associated with any bleeding issues or excessive bruising. She is not on antiplatelet medication or anticoagulant therapy. She had an ultrasound of the liver and spleen 08/2021 that demonstrated coarse echotexture of the liver. Spleen was normal size. She has had CMP over the last 2 years that is suggested hepatocellular injury, potentially fatty liver or chronic hepatitis. The only differential she has had when at [facility] 05/2022 for Dover's palsy. No prior CBCs in their system. No evidence of CLL or other lymphoproliferative disorder. -I talked with her about the broad differential of thrombocytopenia. MPV elevation suggests and Peripheral sequestration or destruction of platelets. She may have a combination of etiologies. Plan: -CBC with staff review. -Recheck CMP, hepatitis profile, HIV and lupus anticoagulant panel. -Check H. pylori antigen. -Check iron studies to rule out possible hemochromatosis as a cause for her chronic hepatitis. -Office visit after above to review and discuss any further work-up as may be indicated. I spent a total of 60 minutes on the date of the service which included preparing to see the patient, [id number] patient care, completing clinical documentation, obtaining and/or reviewing separately obtained history, performing a medically appropriate examination, counseling and educating the pat ient/family/caregiver, ordering medications, tests, or procedures, communicating with other HCPs (not separately reported), and communicating results to the patient/family/caregiver. Kavon Lopes DO documented in this encounterM[facility]04-17-2023 Discharge summary Author Evelio Barrow [facility] June 29, 2022 3:04pm Note Date/Time June 29, 2022 3:0 4pm [facility] Physical Therapy [facility] [address] [place] [address] / REHABILITATION SERVICES DISCHARGE SUMMARY MR#: [id number] Acct: [id number] Name: MACY MORALES Rep #: [id number] : 1955 66 From: Evelio Barrow PT, ATC Referring : Status: REG RCR Insurance: [facility]/[employer] SELF PAY INSURANCE MACY MORALES was seen in my office for initial evaluation on 06/29/22. The following Plan of Care was established for this patient: Initial Frequency: 1x/Week Initial Duration: 1 Week This patient was last seen in our office . Pertinent comments regarding their Physical therapy will appear below: Pt is now I with HEP consisting of facial movements for her to perform daily. Discharge At this point I will be discontinuing this patient from physical therapy. I would be happy to see this patient again in the future if found appropriate by the physician. Thank you! Evelio Barrow, PT, ATC <Electronically signed by Evelio Barrow PT, ATC> 06/29/22 1504 CC: MEMO TREVIÑO; Dr. Elder Reddy MD ~ [facility] Signed [facility] Work Phone: 1(203) 240-955304-17-2023 Miscellaneous Notes* Telephone Encounter - Maddy Quintana Pss - 06/29/2022 3:09 PM EDT Patient called and scheduled consult * Telephone Encounter - Kym Llanes Pss - 06/29/2022 2:05 PM EDT I called and left patient a message using the [employer] historical interpreter services for patient to call backto get scheduled for her new patient visit as specified below Kym Llanes Pss * Telephone Encounter - Kavon Lopes DO - 06/26/2022 5:05 PM EDT I can see her if I have a new patient appointment week after next. If not then will have to be in 3weeks. Kavon Lopes DO * Telephone Encounter - Yuko Gaspar LPN - 06/24/2022 11:05 AM EDT From OV note with Dr. Reddy 06/23/2022- Assessment and Plan 1. Thrombocytopenia (HCC) - ICD9: 287.5, ICD10: D69.6 (primary diagnosis) Chronic, worse? Shared medical decision making was done. We agreed to consult hematology. - CONSULT TO HEMATOLOGY. Yuko Gaspar LPN * Telephone Encounter - Rebekah Jackson - 06/24/2022 10:59 AM EDT Patient would like to schedule hematology consult: DX: Thrombocytopenia Referred by. Elder Reddy MD Insurance: [facility] Please advise documented in this encounterM[facility]04-11-2023 History of Present illness Narrative* Katherine Goldstein, OD - 06/23/2022 1:38 PM EDT 1. Dover's palsy Recommended patching at night with eyepad and tape Recommended gel 3-4 times daily and artificial tears as needed in between Recommended ointment at night time 2. Type 2 diabetes mellitus without retinopathy (HCC) Risk of diabetic changes and vision loss can be minimized by tight control of blood sugar, blood pressure, and cholesterol levels. Educated patient to continue care with primary care doctor and/or community coordinator for high school to maintain optimum levels as they are important to avoid ocular complications. Encouraged patient to call the office immediately with any changes to vision or visual concerns. Advised to not wait until the next scheduled exam. 3. Combined forms of age-related cataract of both eyes Mild-monitor 4. Presbyopia Continue with current glasses Follow-up in 3 months for dry eye follow-up Katherine Goldstein, OD June 23, 2022 1:38 PM documented in this encounterM[facility]04-11-[facility]23 Instructions* Patient Instructions* Katherine Goldstein, OD - 06/23/2022 10:54 AM EDT Use eye patch and tape to keep right eye closed at bedtime Use Systane, Refresh or Blink gel nightly 3-4 times daily and regular artificial tears as needed Use Systane or Refresh ointment at nighttime before putting on patch documented in this encounterMckitrick [facility]04-11-2023 History of Present illness Narrative* Elder Reddy MD - 06/23/2022 9:31 AM EDT This note was created using MediaSpik[employer]. Subjective Macy Morales is a 66 year old female who recently developed right sided Dover's Palsy. She was admitted overnight for stroke like symptoms and teleneurology recommended prednisone and Valtrex, completed. Symptoms were improving. She saw neurology here who referred her here for worsening low platelets. Review of Systems Constitutional: Negative for fatigue and fever. HENT: Negative for nosebleeds. Gastrointestinal: Negative for abdominal pain and blood in stool. Genitourinary: Negative for hematuria. Hematological: Negative for adenopathy. Bruises/bleeds easily. ACTIVE PROBLEM LIST Controlled Type 2 Diabetes Mellitus Without Complication, Without Long-Term Current Use of Insulin (Hcc) Obesity, Class II, Bmi 35-39.9 Primary Hypertension Pure Hypercholesterolemia Elevated Tsh Abnormal Liver Enzymes Thrombocytopenia (Hcc) Right-Sided Dover's Palsy Social History Tobacco Use Smoking status: Never Smokeless tobacco: Never Vaping Use Vaping Use: Never used Substance Use Topics Alcohol use: Not Currently Drug use: Not Currently Current Outpatient Medications Medication Sig famotidine (PEPCID ORAL) Take 1 tablet by mouth as needed. carboxymethylcellulose sodium (ARTIFICIAL TEARS) 1 % drops Use 1-2 Drops in the right eye as needed(dry eyes). pantoprazole DR (PROTONIX) 40 mg tablet Take by mouth. blood sugar diagnostic (TRUE METRIX GLUCOSE TEST STRIP) test strip Test blood sugar(s) 1 times daily. Dx: Type 2 DM - Controlled E11.9 Insulin: No glipiZIDE (GLUCOTROL XL) 2.5 mg 24 hr tablet Take 1 tablet by mouth once daily. atorvastatin (LIPITOR) 10 mg tablet Take 1 tablet by mouth daily at bedtime. For cholesterol. metFORMIN ER (GLUCOPHAGE XR) 500 mg 24 hr tablet Take 2 tablets by mouth twice daily with meals. lisinopril (ZESTRIL, PRINIVIL) 10 mg tablet Take 1 tablet by mouth once daily. insulin lispro (HUMALOG KWIKPEN) 100 unit/mL clotrimazole-betamethasone (LOTRISONE) cream Apply to affected area twice daily as needed. No current facility-administered medications for this visit. Objective BP 118/80 Pulse 82 Resp 16 Ht 152.4 cm (5') Wt 83.9 kg (185 lb) BMI 36.13 kg/m Physical Exam Constitutional: General: She is not in acute distress. Appearance: She is not ill-appearing. Eyes: Conjunctiva/sclera: Conjunctivae normal. Comments: Ptosis, right. Cardiovascular: Heart sounds: No murmur heard. No gallop. Abdominal: Palpations: There is no hepatomegaly or splenomegaly. Lymphadenopathy: Cervical: No cervical adenopathy. Neurological: General: No focal deficit present. Mental Status: She is alert. Cranial Nerves: Cranial nerve deficit present. Gait: Gait normal. Comments: Right facial weakness. Assessment and Plan 1. Thrombocytopenia (HCC) - ICD9: 287.5, ICD10: D69.6 (primary diagnosis) Chronic, worse? Shared medical decision making was done. We agreed to consult hematology. - CONSULT TO HEMATOLOGY 2. 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 Elder Reddy MD documented in this encounterCleveland [id number] Nurse Note* Varghese Mcmahan MA - 06/23/2022 9:15 AM EDT Patient declined phone historical interpreter. Interpretation with her daughter, Ingris, who accompanied patientto office visit. Varghese Mcmahan MA documented in this encounterM[facility]itrick [facility]04-05-2023 Miscellaneous Notes* Telephone Encounter - Gene Amin RN - 06/17/2022 10:27 AM EDT Images from the original note were not included. YA Nunes RN Hi Merribeth, Can you please call patient's daughter, Ingris, and let her know that I would like patient to stop taking the aspirin immediately? Her platelet count is only 78. I would also like her to either follow up with her primary care provider regarding the lower platelets. We need to make sure she does not have a gastrointestinal bleed or another cause of her symptoms. I have added Ingris to the patient's contacts and verbally obtained consent to contact her (documented in visit) due to patient being a English speaker. Thank you! Warm regards, Heaven Daughter Ingris called regarding the aspirin noted above above and daughter shared that the patient has been off of aspirin since she left the hospital and was discharged. Family member encouraged to contact PCP to have patient evaluated for causes of low platelet count. Daughter endorses that her mother does have stomach issues. Patient and daughter encouraged to schedule appointment with PCP to address this and the lower count from lab work. They verbalized understanding and we ended our call pleasantly. Gene Amin RN, BSN documented in this encounterMckitrick [facility]04-04-2023 Instructions* Patient Instructions* Memo Treviño PA-C - 06/16/2022 9:57 AM EDT 1) Please get imaging and interpretations for MRI brain, CT head, CTA of the head and neck If you can also get the neurology report 2) Labs: CBC 3) Referral to ENT to make sure ear pain 4) Physical therapy and speech therapy 5) The eye drops 6) Follow up in 3 weeks documented in this encounterMckitrick Hospital04-04-2023 History of Present illness Narrative* Memo Treviño PA-C - 06/16/2022 9:14 AM EDT Images from the original note were not included. [facility] Name: Macy Morales Age: [age] year old Gender: female Primary Care Provider: Elder Reddy MD Consult requested for Dover's palsy by Ana Mccarty. Recommendations will be communicated via shared medical record or US mail. Chief Complaint:New Patient and [place] Palsy Assessment/Plan: The primary encounter diagnosis was Dover's palsy. A diagnosis of Right ear pain was also pertinent to this visit. This is a pleasant 66-year-old English- speaking female here for evaluation of right-sided Dover's palsy with symptoms beginning on 05/31/2022. She went to the hospital the following day and was admitted on 06/01/2022 - 06/03/2022 for the same reason with differential including stroke vs Dover's palsy. Patient was admitted to [facility], and unfortunately, they have been different medical recordsystem, and medical records are incomplete at the time of visit. Based on limited medical records, patient initially had an NIHSS score of 2 at maximum for right-sided facial droop and left-sided hand weakness. She also reported imbalance the afternoon before hospitalization which resolved by the time she went to the ER. She had an MRI of the brain, as well as CT head, CTA of the head and neck, all of which were unremarkable according to reports. Patient was outside of the window for tPA or any other interventions. She was admitted and seen by seen by virtual neurology although I do not have the records for this. At some point she was started on aspirin 81 mg presumably for secondary stroke prevention. She was also found to have thrombocytopenia at 1 point although again unclear if this was before after starting the aspirin. She has been continuing on the aspirin since that time although I do not see that this was recommended based on discharge summary. She was prescribed prednisone 60 mg daily and valacyclovir which she reports she completed (although I do not see Valtrex noted on discharge summary). On exam, patient's symptoms are consistent with right-sided Dover's palsy and not central cause. I did not see any other focal deficits (including left hand weakness or previously mentioned balance issues) that would indicate focal lesion elsewhere. Patient has associated otalgia and mastoid pain (although no signs or symptoms of mastoiditis and no mention of mastoiditis on MRI) and I will therefore refer to ENT to ensure Dover's palsy is not secondary to an inner ear issue. No paresthesias or rash prior to facial droop that would be consistent with Yaneth Arita syndrome. Ear inspection did not reveal any vesicles. Patient has had chickenpox as a child and has not had theherpes zoster vaccine. She has never had shingles before. Differential includes right-sided Dover's palsy versus right cranial nerve VII peripheral infarctionrelated to diabetes, although A1c appears to be well controlled at 6.8. Patient has seen no improvement in weakness since onset 2 weeks ago. She is agreeable to speech therapy and physical therapy. We will also provide lubricating eyedrops due to weakness with eye closure on the right. Instructed patient and daughter to obtain imaging from [facility]. Have also requested that staff obtain further records as well. Will repeat CBC as patient had thrombocytopenia and is on Asprin. Plan: 1) Please get imaging and interpretations for MRI brain, CT head, CTA of the head and neck If you can also get the neurology report - Have requested staff get further health records especially neurology note 2) Labs: CBC 3) Referral to ENT to make sure ear pain 4) Physical therapy and speech therapy 5) Eye drops 6) Consider repeat imaging in 3 weeks if no improvement. 7) Follow up in 3 weeks 8) Patient provided verbal permission to contact daughter if needed. Daughter provided cell phone number. Orders Placed This Encounter famotidine (PEPCID ORAL) Sig: Take 1 tablet by mouth as needed. No follow-ups on file. Chart, labs,and relevant images reviewed. Interpretor ID: [id number] ([place]) HPI: This is a pleasant 66-year-old female, with a past medical history of diabetes, hyperlipidemia, andhypertension, presents for evaluation of right-sided Dover's palsy. Patient is English-speaking and the following information was obtained through an historical interpreter as well as some assistance from daughter. Patient reports that symptoms began 1 day before she went to the hospital on 06/01/2022. She was mated to [facility] from 3 09/01/2022 to 06/03/2022. Initial concern for patient's symptoms were related to stroke versus right-sided Dover's palsy. Concern for stroke given symptoms involving the left hand and some reported ability to wrinkle the right side of her forehead (not seen on exam today). Is not a candidate for tPA or clot retrieval given that it has been greater than 24 hours by the time she reached the hospital. NIHSS stroke scale at that time was greatest at 2 for right-sided facial weakness and left hand weakness (not noted on exam today). Patient reports that symptoms began 1 day prior to going to the hospital. She denies any precipitating rash or facial pain. She reports that she had imbalance in the afternoon the day prior being hospitalized which self resolved. No double vision, blurred vision, or vision issues. She also reports a mild intermittent headache. Reports mild headache. Inquiring whether she can take tylenol. Headache. Teary in one eye. States weakness walking but difficulty describing if legs were week. Reports more of a balance issue. Lasted for hours the day prior to onset before self resolving. Does not endorse focal weakness besides facial droop although hospital records report left hand weakness. Prednisone and Valcyclovir completed. No improvement in facial weakness since onset. Dry eye on the right. Difficulty pronouncing words and difficulty chewing. No difficulty swallowing. No past history of Dover's palsy Associated Symptoms: Posterior auricular pain: All around ear Otalgia: Yes Hyperacusis/Dysacusis: No Change in taste: No Numbness/tingling: No Rash: No rash Cough/Dyspnea: No Recent travel: No Recent outdoor activities: No History of diabetes: Yes History of thyroid disease: No REVIEW OF MEDICAL HISTORY MRI of the brain w/o: STUDY: MRI BRAIN WITHOUT CONTRAST REASON FOR EXAM: Female, 66 years old. CVA TECHNIQUE: Standardized multiplanar fat and water weighted pulse sequences were obtained. COMPARISON: No relevant prior imaging available for comparison. HEMISPHERES, CEREBELLUM AND BRAINSTEM: 1. The cerebral parenchyma, ventricular system, subarachnoid spaces have normal configuration. There is a normal gyral pattern. There is normal valadez/white differentiation. No midline shift.. 2. The hemispheric white matter has normal appearance. 3. No intraparenchymal mass, hemorrhage, or acute territorial infarct. 4. The cerebellum, brainstem, basilar and suprasellar cisterns have normal appearance. No Chiari malformation. PITUITARY: Infundibulum and pituitary have normal configuration. Midline structures appear normal. CSF SPACES: Appropriate for age. No hydrocephalus. Basal cisterns are patent. VESSELS: 1. There are normal flow voids noted in the great vessels at the skull base ORBITS AND PARANASAL SINUSES: 1. Both globes, extraocular muscles, optic nerves and retrobulbar fat appear unremarkable. 2. Paranasal sinuses are clear. BONY ELEMENTS: Bony elements of the cranial vault, facial skeleton and skull base have normal appearance. SCALP AND SOFT TISSUES: Normal appearance of the soft tissues of the scalp and the visualized face Per PCP note: Macy Morales is a 66 year old female who presents today for above. Patient was presented to [facility] ER on 06/03 for right sided facial drooping. Admitted for possible stroke. CT head/neck, MRI brain, echocardiogram, otoscopic and fundoscopic exams were all normal. Diagnosed with [place] Palsy. Treated with prednisone 60 mg daily and Valtrex x 7 days along with artifical tears during the day. She was instructed to use eye ointment and wear patch at night. Discharged home on 06/04. Today patient reports no change in symptoms and no new symptoms. Continues to have drooping of the right eye and mouth. Right eye does not close completely. She is taking medications and wearing eye patch at night as instructed. She has not scheduled follow-up with neurology or crime prevention police officer yet.Evening blood sugars have been in the 200's. She was prescribed Humalog sliding scale at discharge,using as instructed. ACTIVE PROBLEM LIST Controlled Type 2 Diabetes Mellitus Without Complication, Without Long-Term Current Use of Insulin ([facility]) Obesity, Class II, Bmi 35-39.9 Primary Hypertension Pure Hypercholesterolemia Elevated Tsh Abnormal Liver Enzymes Thrombocytopenia (Hcc) PAST MEDICAL HISTORY Diagnosis Date Controlled type 2 diabetes mellitus without complication, without long-term current use of insulin ([facility]) 04/28/2021 COVID-19 02/05/2020 Obesity, Class II, BMI 35-39.9 07/23/2021 Primary hypertension 07/23/2021 Pure hypercholesterolemia 11/10/2019 Medications: Reviewed Current Outpatient Medications on File Prior to Visit Medication Sig famotidine (PEPCID ORAL) Take 1 tablet by mouth as needed. pantoprazole DR (PROTONIX) 40 mg tablet Take by mouth. blood sugar diagnostic (TRUE METRIX GLUCOSE TEST STRIP) test strip Test blood sugar(s) 1 times daily. Dx: Type 2 DM - Controlled E11.9 Insulin: No glipiZIDE (GLUCOTROL XL) 2.5 mg 24 hr tablet Take 1 tablet by mouth once daily. atorvastatin (LIPITOR) 10 mg tablet Take 1 tablet by mouth daily at bedtime. For cholesterol. metFORMIN ER (GLUCOPHAGE XR) 500 mg 24 hr tablet Take 2 tablets by mouth twice daily with meals. lisinopril (ZESTRIL, PRINIVIL) 10 mg tablet Take 1 tablet by mouth once daily. insulin lispro (HUMALOG KWIKPEN) 100 unit/mL Insulin Lispro (Humalog Kwikpen Insulin) 100 unit/mL Insulin Pen Active 0 UNIT SC BEFORE MEALS AND AT BEDTIME June 03, 2022 12:00am (Patient not taking: Reported on 06/16/2022) predniSONE (DELTASONE) 20 mg tablet Take by mouth. (Patient not taking: Reported on 06/16/2022) valACYclovir (VALTREX) 1 gram Take by mouth. (Patient not taking: Reported on 06/16/2022) clotrimazole-betamethasone (LOTRISONE) cream Apply to affected area twice daily as needed. (Patientnot taking: Reported on 06/16/2022) No current facility-administered medications on file prior to visit. ALLERGIES No Known Allergies FAMILY HISTORY Problem Relation Age of Onset Aneurysm Mother No Known Problems Father Cancer Brother No Known Problems Maternal Grandmother No Known Problems Maternal Grandfather No Known Problems Paternal Grandmother No Known Problems Paternal Grandfather No Known Problems Child No Known Problems Child No Known Problems Child PAST SURGICAL HISTORY Procedure Laterality Date NONE SOCIAL HISTORY No social history on file. Tobacco Use: Low Risk Smoking Tobacco Use: Never Smokeless Tobacco Use: Never Passive Exposure: Not on file PHYSICAL EXAM 06/16/22 0913 BP: 147/58 Pulse: 96 Neurologic Exam Cognitive and Language: Alert and answered questions appropriately. Language was fluent. Followed simple and complex commands. Cranial Nerves: Visual coleman were full tested binocularly to finger counting in all 4 quadrants with no visual extinction. Pupils were equal and both reactive to light. Extraocular movements were full with no diplopia or nystagmus. Facial sensation was normal to light touch in V1 to V3. Facial strength was symmetric. Normal hearing grossly bilaterally. Palatal raise was symmetric. Shoulder shrug was symmetric. Tongue protrusion was symmetric with no fasciculations. Right sided facial weakness. Decreased strength with eye closure on the right. Asymmetric smile with droop on the right. Decreased wrinkling of forehead with eyebrow raise on the right. Right Left Shoulder Abduction: 5 5 Elbow Extension 5 5 Elbow Flexion 5 5 Wrist Extension 5 5 Finger Extension 5 5 Finger Abduction 5 5 Right Left Hip Flexion 5 5 Knee Extension 5 5 Knee Flexion 5 5 Dorsiflexion 5 5 Plantar Flexion 5 5 Rest tremor: absent Tone: Normal in all four limbs Reflexes: Right Left Brachioradialis 2 2 Biceps 2 2 Triceps 2 2 Patella 2 2 Ankle 1 1 Sensory: normal to light touch and pinprick x 4 limbs. Coordination: Normal finger to nose testing bilaterally. Negative romberg. Normal gait. Ear exam normal No pain on palpation of mastoid process. No erythema. No vesicles. Labs: Lab Results Component Value Date WBC 5.03 07/28/2021 HCT 46.0 07/28/2021 MCV 92.7 07/28/2021 PLT 91 (L) 07/28/2021 Lab Results Component Value Date HBA1C 6.8 04/15/2022 HBA1C 7.2 11/19/2021 HBA1C 8.3 07/28/2021 Cholesterol, Total Date Value Ref Range Status 11/19/2021 202 (H) <200 mg/dL Final Comment: <200 mg/dL, Desirable 200-239 mg/dL, Borderline high >239 mg/dL, High HDL Cholesterol Date Value Ref Range Status 11/19/2021 93 >39 mg/dL Final Comment: 40-59 mg/dL, Acceptable >59 mg/dL, High: Negative risk factor for coronary heart disease <40 mg/dL, Low: Positive risk factor for coronary heart disease LDL Cholesterol Date Value Ref Range Status 11/19/2021 92 <100 mg/dL Final Comment: <100 mg/dL, Optimal 100-129 mg/dL, Near optimal/above optimal 130-159 mg/dL, Borderline high 160-189 mg/dL, High >189 mg/dL, Very high Secondary prevention optimal LDL Cholesterol levels are recommended to be < 70 mg/dL Triglyceride Date Value Ref Range Status 11/19/2021 85 <150 mg/dL Final Comment: <150 mg/dL, Normal 150-199 mg/dL, Borderline high 200-499 mg/dL, High >499 mg/dL, Very high Radiology: This note was dictated using [employer] speech recognition software and may contain some errors that were a result of the program not accurately transcribing what was dictated, despite efforts to make corrections. Note that unless urgent, test and MRI results will be discussed at next follow- up visit. PROMIS (Patient-Reported Outcomes Measurement Information System) is a set of person-centered measures that evaluates and monitors physical, social, and emotional health. It can be used with the general population and with individuals living with chronic conditions. PROMIS 10: PHYSICAL AND MENTAL HEALTH: Time spent included 57 min on the day of service, which included preparing to see the patient, [id number] patient care, completing clinical documentation, obtaining and/or reviewing separately obtained history, performing a medically appropriate examination, counseling and educating the patient/family/caregiver and ordering medications, tests, or procedures. documented in this encounterMckitrick Hospital03-28-2023 History of Present illness Narrative* Ana Mccarty, NAIL SPECIALIST.[employer] BUTTON PASTER - 06/09/2022 12:32 PM EDT CC: Patient presents with: [facility] ER follow up: 06/04/2022 PJ Morales is a 66 year old female who presents today for above. Patient was presented to [facility] 06/03 for right sided facial drooping. Admitted for possible stroke. CT head/neck, MRI brain, echocardiogram, otoscopic and fundoscopic exams were all normal. Diagnosed with [place] Palsy. Treated with prednisone 60 mg daily and Valtrex x 7 days along with artifical tears during the day. She was instructed to use eye ointment and wear patch at night. Discharged home on 06/04. Today patient reports no change in symptoms and no new symptoms. Continues to have drooping of the right eye and mouth. Right eye does not close completely. She is taking medications and wearing eye patch at night as instructed. She has not scheduled follow-up with neurology or crime prevention police officer yet.Evening blood sugars have been in the 200's. She was prescribed Humalog sliding scale at discharge,using as instructed. REVIEW OF SYSTEMS See HPI PAST MEDICAL HISTORY Diagnosis Date Controlled type 2 diabetes mellitus without complication, without long-term current use of insulin (HCC) 04/28/2021 COVID-19 02/05/2020 Obesity, Class II, BMI 35-39.9 07/23/2021 Primary hypertension 07/23/2021 Pure hypercholesterolemia 11/10/2019 PAST SURGICAL HISTORY Procedure Laterality Date NONE ALLERGIES Patient has no known allergies. MEDICATIONS insulin lispro (HUMALOG KWIKPEN) 100 unit/mL Insulin Lispro (Humalog Kwikpen Insulin) 100 unit/mL Insulin Pen Active 0 UNIT SC BEFORE MEALS AND AT BEDTIME June 03, 2022 12:00am predniSONE (DELTASONE) 20 mg tablet Take by mouth. valACYclovir (VALTREX) 1 gram Take by mouth. pantoprazole DR (PROTONIX) 40 mg tablet Take by mouth. blood sugar diagnostic (TRUE METRIX GLUCOSE TEST STRIP) test strip Test blood sugar(s) 1 times daily. Dx: Type 2 DM - Controlled E11.9 Insulin: No glipiZIDE (GLUCOTROL XL) 2.5 mg 24 hr tablet Take 1 tablet by mouth once daily. atorvastatin (LIPITOR) 10 mg tablet Take 1 tablet by mouth daily at bedtime. For cholesterol. clotrimazole-betamethasone (LOTRISONE) cream Apply to affected area twice daily as needed. metFORMIN ER (GLUCOPHAGE XR) 500 mg 24 hr tablet Take 2 tablets by mouth twice daily with meals. lisinopril (ZESTRIL, PRINIVIL) 10 mg tablet Take 1 tablet by mouth once daily. FAMILY HISTORY Problem Relation Age of Onset Aneurysm Mother No Known Problems Father Cancer Brother No Known Problems Maternal Grandmother No Known Problems Maternal Grandfather No Known Problems Paternal Grandmother No Known Problems Paternal Grandfather No Known Problems Child No Known Problems Child No Known Problems Child Social History Tobacco Use Smoking status: Never Smokeless tobacco: Never Vaping Use Vaping Use: Never used Substance Use Topics Alcohol use: Not Currently Drug use: Not Currently PHYSICAL EXAM BP 137/84 Pulse 84 Resp 16 Wt 83.5 kg (184 lb) BMI 38.46 kg/m General Appearance: well appearing, in no acute distress, alert Eyes: right eye with mild ptosis, unable to close completely. PERRLA, EOM's intact, conjunctiva pink and moist, no icterus, sclera white, non-injected Oropharynx: right side of mouth drooping DATA REVIEWED: Outside chart from [facility] admission reviewed. ASSESSMENT/PLAN: 1. Dover's palsy - ICD9: 351.0, ICD10: G51.0 (primary diagnosis) Condition is stable. No new or worsening symptoms. Complete prednisone and Valtrex. Continue with eye patch and eye drops - CONSULT TO NEUROLOGY - CONSULT TO OPHTHALMOLOGY Follow-up as needed 2. Hyperglycemia - ICD9: 790.29, ICD10: R73.9 Secondary to prednisone. Continue with Humalog until blood sugars are back to baseline. Prescription instructions reviewed with patient as applicable. Potential red flag symptoms discussed with the patient. Reviewed appropriate action plan to take if red flag symptoms occur. Patient agreeable to treatment plan. Ana Mccarty APRN.CNP [facility] Maddox [facility] June 03, 2022 9:54am Note Date/Time June 03, 2022 9:4 6am [facility] Medical Records Department [address] [place] [address] Instructions for Home/Discharge Instructions 06/03/22 0944 MR#: [id number] Acct: [id number] Name: MACY MORALES Rep #:[id number] : 1955 66 From: Henry Barth PCP: Dr. Elder Reddy MD Status:A DM KATINA Discharge Instructions Diet Discharge Diet: Low fat / Low cholesterol and 1800 Calorie Control Diet Activity Discharge Activity: Return to Normal Activity Weight Bearing Status: Weight bearing as tolerated Dressing / Incision Call your doctor if you observe: Fever of 101 or Higher, Coldness, Increased Pain, Numbness or Tingling, Change in Color, Inability to urinate, Inability to have a bowel movement, Using more than 1 pad per hour, Shortness of breath, Dizziness, Fainting spells, Swelling in the ankles, Chest pain, Prolonged hiccupping, Increased palpitations (irregular heartbeat) and Calf discomfort Follow Up Care When: IN 2 WEEKS Test Results: Test results from this visit will be discussed in further detail at your follow- up appointment, if applicable. Discharge Plan Admission Admit Date/Time: 06/01/22 21:44 Primary Reason for Your Visit: R Facial Weakness, Dover;s palsy Attending Provider: Henry Maddox Primary Care Provider: Elder Reddy Consulting Providers: Matt Toussaint ; Talia Lopez Instructions Patient Instructions: ED Dover's Palsy Discharge Orders/Prescriptions Prescriptions: New prednisone 20 mg Tablet 60 mg PO BREAKFAST 7 Days Qty: 21 0RF insulin lispro [Humalog KwikPen Insulin] 100 unit/mL Insulin Pen See Protocol subcut ACHS Qty: 15 0RF Protocol: 1. Sliding Scale Insulin Low Dosing Condition: 150-224 mg/dl = 1 unit Condition: 225-299 mg/dl = 2 units Condition: 300-374 mg/dl = 3 units Condition: 375-499 mg/dl = 4 units Condition: Greater than 449 call physician Protocol Text: - Use for Total Daily Dose of Insulin 15-27 units - Thin, elderly, renal patients LOW DOSING ALGORITHM pantoprazole [Protonix] 40 mg tablet,delayed release (DR/EC) 40 mg PO DAILY Qty: 30 0RF valacyclovir 1 gram tablet 1,000 mg PO Q8H 7 Days Qty: 21 0RF Continued atorvastatin 10 mg tablet 10 mg PO DAILY Label Comments: TAKE 1 TABLET BY MOUTH ONCE DAILY AT BEDTIME FOR CHOLESTEROL glipizide 2.5 mg tablet extended release 24hr 2.5 mg PO DAILY Label Comments: TAKE 1 TABLET BY MOUTH ONCE DAILY lisinopril 10 mg tablet 10 mg PO DAILY Label Comments: TAKE 1 TABLET BY MOUTH ONCE DAILY metformin 500 mg tablet extended release 24 hr 1,000 mg PO BID Label Comments: TAKE 2 TABLETS BY MOUTH TWICE DAILY WITH MEALS Referrals / Follow Up: Bruce Love MD [Med Staff - Active Staff] - Within 1 Week Kurtis Duque MD [Non-Staff -Ordering Privileges] - Within 2 Weeks Elder Reddy MD [Primary Care Provider] - Within 2 Weeks Disposition Disposition (needs filled in before D/C Order can be placed): Home, Self Care 06/03/22 0954<Electronically signed by Henry Maddox MD>Henry Maddox MD CC: Dr. Matt Toussaint MD; Dr. Talia Lopez DO; Dr. Elder Reddy MD ~ Signed [facility] Work Phone: 1(989) 375-974403-21-[address] Lopez [facility] June 02, 2022 4:24pm Note Date/Time June 02, 2022 4:2 4pm [facility] Medical Records Department [address] [place] [address] Telemedicine Confirmation Receipt 06/02/22 MR#: [id number] Acct: [id number] Name: CARMENMACYJONATHAN GLYNN Rep #:[id number] : 1955 66 From: Talia Lopez DO PCP: Dr. Elder Reddy MD Status:A DM KATINA [facility] Tele[facility] has confirmed receipt of a request for visit. This document confirms receipt of the order initiating the consult. To find the results of the consultation, please view the patient's reports for the scanned Telemed Consult. [facility] Work Phone: 1(530) 484-625503-21-[address] Lopez [facility] June 02, 2022 1:40pm Note Date/Time June 02, 2022 7:[address] [facility] Medical Records Department [address] [place] [address] Progress Note - Hospitalist 06/02/22 0729 MR#: [id number] Acct: [id number] Name: CARMENMACYJONATHAN GLYNN Rep #:[id number] : 1955 66 From: Talia Lopez DO PCP: Dr. Elder Reddy MD Status:A FAHEEM AMBRIZ [facility] Reason for Visit Reason for Visit: Facial droop Subjective Subjective Patient is a 66-year-old English-speaking female who presented to the emergency department [facility] on 06/01/2022 with right facial droop that started the day prior to presentation. She also developed a headache at that time. Patient evidently came to her daughter's work on the day of admission andher daughter became concerned that she may be having a stroke because of her symptoms. Life facial droop was persistent and speech was somewhat slurred the patient also reported some left hand weakness. She does have a history of hypertension, hyperlipidemia, and diabetes. She denies any tobacco abuse. Current NIH is 1. She was out of the window for any thrombectomy or thrombolytics upon presentation so stroke team was not called. Vital signs on presentation were overtly unremarkable other than some mildly elevated blood pressure 140/86. Her CBC showed only thrombocytopenia which was 100,000 on presentation but we have no baseline previously so I am unaware if this is acuteor chronic. Her chemistry panel was unremarkable other than some mild hyperglycemia at 116 on presentation. Her lipid panel showed a total [id number]/LDL 86/HDL 76 and triglycerides of 85. Hemoglobin A1c was 6.6. Patient is now complaining of a difficulty eating because of weakness in the right side of his face. The weakness on the lower portion of the right side of her face seems to be stable however she has developed new weakness on the upper portion of the right side of her face indicating complete right-sided facial nerve palsy. 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 MRI remains pending and will not be done till later today. Objective Data Objective Data Vital Signs: Vital Signs Temp Pulse Resp BP Pulse Ox O2 Del Method 97.8 F 80 18 127/58 H 96 Room Air 06/02/22 05:57 06/02/22 05:57 06/02/22 05:57 06/02/22 05:57 06/02/22 05:57 06/02/22 05:57 Oxygen Delivery Method Room Air Weight: 84 kg Body Mass Index (BMI) 30.8 Lab / Micro Data Result Diagrams: 06/02/22 04:50 06/02/22 04:50 Labs: Laboratory Results - last 24 hr 06/01/22 18:53: POC Glucose 114 H 06/01/22 18:55: WBC 5.2, RBC 4.76, Hgb 14.6, Hct 43.7, MCV 91.8, MCH 30.7, MCHC 33.4, RDW Std Deviation 51.5 H, RDW Coeff of Francisco 14.9 H, Plt Count 100 L, MPV 12.7 H, Immature Gran % (Auto) 0.200, Neut % (Auto) 47.6, Lymph % (Auto) 36.2, [place] % (Auto) 11.9 H, Eos % (Auto) 3.3, Baso % (Auto) 0.8, Absolute Neuts (auto)2.5, Absolute Lymphs (auto) 1.88, Nucleated RBC % 0 06/01/22 18:55: PT 14.2, INR 1.1, APTT 33.4 06/01/22 18:55: Sodium 138, Potassium 3.8, Chloride 103, Carbon Dioxide 31.0, Anion Gap 4 L, BUN 11, Creatinine 0.61, Estim Creat Clear Calc 66.92, Est GFR (MDRD) Af Amer 126, Est GFR (MDRD) Non-Af 104, BUN/Creatinine Ratio 18.0, Glucose 116 H, Calcium 10.0, Troponin I High Sens 4 06/02/22 02:15: POC Glucose 105 06/02/22 03:04: POC Glucose 110 H 06/02/22 04:50: WBC 3.4 L, RBC 4.27, Hgb 12.9, Hct 39.3, MCV 92.0, MCH 30.2, MCHC 32.8, RDW Std Deviation 50.1 H, RDW Coeff of Francisco 14.9 H, Plt Count 67 L, MPV 13.3 H, Immature Gran % (Auto) 0.300, Neut % (Auto) 45.8 L, Lymph % (Auto) 37.5, [place] % (Auto) 11.9 H, Eos % (Auto) 4.2, Baso % (Auto) 0.3, Absolute Neuts (auto) 1.5 L, Absolute Lymphs (auto) 1.26, Nucleated RBC % 0, Platelet Estimate MOD DEC, Anisocytosis 1+ 06/02/22 04:50: Sodium 140, Potassium 3.6, Chloride 106, Carbon Dioxide 26.0, Anion Gap 8, BUN 7, Creatinine 0.45 L, Estim Creat Clear Calc 113.65, Est GFR (MDRD) Af Amer 182, Est GFR (MDRD) Non-Af 150, BUN/Creatinine Ratio 15.7, Glucose 87, Calcium 8.9, Triglycerides 85, Cholesterol 179, LDL Cholesterol 86, VLDL Cholesterol 17, HDL Cholesterol 76 06/02/22 06:42: POC Glucose 99 Radiography Diagnostic Testing: Radiology Impression Head/Neck CTA 06/01/22 19:10 IMPRESSION: No acute intracranial abnormality. N.B. : The above Results were Read Back by Sebastien Gaspar MD to Ismael Parikh MD, and understanding confirmed on 06/01/2022 19:45:48 (ET). Electronically Signed: Sebastien Gaspar MD at 19:49 EDT , ADDENDUM: 06/01/221955 IMPRESSION: No acute intracranial abnormality. N.B. : The above Results were Read Back by Sebastien Gaspar MD to Ismael Parikh MD, and understanding confirmed on 06/01/2022 19:45:48 (ET). Electronically Signed: Sebastien Gaspar MD at 19:49 EDT , Chest X-Ray 06/01/22 19:20 IMPRESSION: Degenerative changes, as described above. No demonstrated acute cardiopulmonary process. Electronically Signed: Sebastien Gaspar MD at 19:55 EDT , Physical Exam Const alert, oriented x3, no apparent distress, healthy appearing and well nourished Constitutional Narrative: Obese, upper middle-aged, white female, up family at bedside, appears comfortable at this time and nontoxic HEENT head/scalp atraumatic and moist oral mucous membranes HEENT Narrative: Dentition is fair, Mallampati is 2, no thrush Head and Scalp: normocephalic Eyes PERRL, EOMs intact bilaterally and conjunctivae normal Eyes Narrative: Patient is having somewhat difficulty completely closing her right eye however the lid completely covers the cornea at this time Resp normal respiratory effort, no retractions, no use of accessory muscles and clearto auscultation bilaterally Cardio regular rate, regular rhythm, S1 normal heart sound, S2 normal heart sound, no murmurs, no rub, no gallops and no clicks GI normal to inspection, nondistended, normoactive bowel sounds, soft to palpation and non-tender Extremity no clubbing, cyanosis or edema Extremity Narrative: 2+ pedal pulses Neuro oriented x3, moves all extremities, no focal motor deficits and no sensory deficits noted Neuro Narrative: Patient with what appears to be a right-sided 7th nerve palsy with decreased forgoing of the brow and right facial droop, all other cranial nerves are within normal limits, patient is English-speaking however able to formulate words well and is understandable Speech: speech normal Psych affect normal Mood & Affect: anxious Assessment & Plan Assessment/Plan (1) Facial droop: (2) Thrombocytopenia: PLAN: Plan Mild left facial droop -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 but MRI is pending -NIH is currently 1--> was 2 at its greatest on presentation -Continue high intensity dose statin -Continue aspirin -Add Plavix if MRI positive for stroke -PT/OT consultation -Lipid panel done as noted below -Hemoglobin A1c 6.6 -CTA of head and neck was unremarkable -Echocardiogram shows an EF of 75% with a mildly enlarged left atrium, pulmonaryartery systolic pressures are 33 mmHg and diastolic function is normal -MRI pending -If MRI is negative start prednisone 40 mg daily for burst dosing and acyclovir -SOC consult pending Thrombocytopenia -Current platelet count is 67,000 and was 100,000 on admission -Request old records for most recent CBC -If new may need more work-up--> if persistent may need referral to hematology at discharge DM-2 -Hold home glipizide and metformin -SSI -Hemoglobin 6.6 -Accu-Cheks as ordered -We will need to watch closely as the patient may need the addition of steroids if her MRI is negative for stroke as I highly suspect Dover's palsy Hyperlipidemia -Continue atorvastatin but do high intensity dose at 80 mg at at bedtime since she is admitted with symptoms concerning for stroke DVT prophylaxis -Start enoxaparin 40 daily Disposition: -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 Anticipate discharge in the next 24 hours. If MRI is negative will start steroids and acyclovir. Neurology consult is pending. If indeed Dover's palsy will need education on eye care at the time of discharge Charges/Coding Visit Charges Inpatient E&M: 47295 Subs Hosp L2 06/02/22 1340 <Electronically signed by Talia Lopez DO> Cosigner Signature (if applicable): CC: ~ Signed [facility] Work Phone: 1(488) 338-524403-21-[address] Naqvi [facility] June 01, 2022 11:54pm Note Date/Time June 01, 2022 6:[address] [facility] Medical Records Department [address] [place] [address] Emergency Department Summary 06/01/22 MR#: [id number] Acct: [id number] Name: MACY MORALES Rep #:[id number] : 1955 66 From: Ismael Naqvi DO PCP: Dr. Elder Reddy MD Status:A DM KATINA Location: [address] History of Present Illness Chief Complaint: Neuro S/Sx Detail of Chief Complaint: Stroke Informant: patient and family Narrative Narrative: Patient presents to the emergency department with concern for possible stroke. Patient brought in by her daughter and history comes via translation from her daughter. Patient is English-speaking. Patient states that she noticed yesterday that she had some drooping to her face. She developed a headache yesterday. Patient came to her daughter's work today and daughter became concerned that patient may have had a stroke. She does have frequent headaches. I am told her headache came on gradually. Patient does have history of hypertension and history of diabetes. Patient complains of maybe some mild weakness in her left hand. She denies weakness in the lower extremities. Prior similar symptoms: No PFSH PFSH Medical History (Updated 06/01/22 @ 22:[address] Ismael Naqvi DO) Diabetes HTN (hypertension) Home Medications atorvastatin 10 mg tablet 10 mg PO DAILY 06/01/22 [History Last Taken Unknown] glipizide 2.5 mg tablet, extended release 24 hr 2.5 mg PO DAILY 06/01/22 [History Last Taken Unknown] lisinopril 10 mg tablet 10 mg PO DAILY 06/01/22 [History Last Taken Unknown] metformin 500 mg tablet,extended release 24 hr 1,000 mg PO BID 06/01/22 [History Last Taken Unknown] Allergy/AdvReac Type Severity Reaction Status Date / Time No Known Allergies Allergy Verified 06/01/22 18:33 Social History Smoking Status: Never smoker ROS ROS ED Review of Systems ROS Unobtainable: other Constitutional Constitutional ED: Reports lethargy; Denies chills, fever(s), sweats or weight loss Eyes Eyes: Denies blurry vision, change in vision or diplopia ENT ENT ED: Denies rhinorrhea or sore throat Cardiovascular Cardiovascular: Denies chest pain, orthopnea or racing heartbeat Respiratory/Chest Respiratory/Chest: Denies cough, dyspnea, dyspnea on exertion, orthopnea or sputum Gastrointestinal Gastrointestinal: Denies abdominal pain, diarrhea, nausea or vomiting Genitourinary Genitourinary ED: Denies dysuria, hematuria or urinary frequency Musculoskeletal Musculoskeletal: Denies arthralgias, back pain, myalgias or neck pain Integumentary Denies abscess, Abrasions or rash Neurologic Neurologic: Reports other Details: Facial droop, left hand weakness ; Denies headache(s) or weakness Psychiatric Psychiatric: Denies anxiety, depression or suicidal thoughts Endocrine Endocrinology: Denies polydipsia, polyphagia or polyuria Hematologic/Lymphatic Hematologic/Lymphatic: Denies easy bleeding, easy bruising or lymphadenopathy Allergic/Immunologic Allergic/Immunologic ED: Denies mouth swelling, tongue swelling or urticaria EXAM Physical Exam Const Vital Signs: 06/01/22 18:31 06/01/22 18:37 06/01/22 18:51 Temperature 97.6 F L 97.6 F L Temperature Source Temporal Temporal Pulse Rate 95 89 Respiratory Rate 18 18 Blood Pressure 140/86 H 136/71 H Blood Pressure Mean 104 92 Pulse Ox 98 100 Oxygen Delivery Method Room Air Room Air Room Air 06/01/22 19:19 06/01/22 19:32 06/01/22 20:01 Temperature Temperature Source Pulse Rate 95 93 101 H Respiratory Rate 22 H 17 25 H Blood Pressure 124/69 H 127/106 H 140/73 H Blood Pressure Mean 87 113 95 Pulse Ox 99 100 99 Oxygen Delivery Method Room Air Room Air Room Air 06/01/22 21:01 06/01/22 22:02 Temperature Temperature Source Pulse Rate 94 86 Respiratory Rate 27 H 18 Blood Pressure 129/63 H 119/62 Blood Pressure Mean 85 81 Pulse Ox 98 95 Oxygen Delivery Method Room Air Room Air Positive well nourished and well developed General Appearance ED: well developed and NAD HEENT Reports TM's clear and moist mucous membranes normocephalic and atraumatic; Negative for trauma or tenderness Tympanic Membrane ED: Yes TM's clear Eyes PERRL and EOMs intact bilaterally General Eye ED: Negative for pale conjunctiva or scleral icterus Neck no lymphadenopathy, supple and no JVD General: Negative for tenderness Chest Wall inspection of chest normal and palpation of chest normal Chest: Negative for tenderness Resp normal respiratory effort and clear to auscultation bilaterally Effort and Inspection: Negative for respiratory distress or pain with movement Auscultation: Negative for rhonchi, wheezes or diminished lung sounds Cardio regular rate, regular rhythm, S1 normal heart sound, S2 normal heart sound and no murmurs Peripheral Pulses: pulses 2+ throughout GI normal to inspection, nondistended, normoactive bowel sounds, soft to palpation,non-tender, non-distended and no masses Back/Spine no CVA tenderness and no thoracic nor lumbar tenderness Extremity normal to inspection General Extremety ED: Negative for edema General Extremity: Negative for edema Neuro oriented x3, CN's II-XII intact bilaterally, no sensory deficits noted and gait normal Neuro Narrative: Patient appears to have a right-sided facial droop on exam. She has some weakness of the right upper eyelid compared to the left. Mild decrease sensation to the right side of the face. Patient has subjective weakness of theleft hand but no objective weakness noted. Sensorium / Orientation: awake, alert, oriented to person, oriented to place andoriented to time Motor Exam: strength 5/5 throughout and strength abnormal Psych mental status grossly normal Skin no rashes or lesions noted and no wounds MDM MDM MDM Narrative Medical decision making narrative: Patient presents with symptoms greater than 24 hours. In the differential wouldbe a Dover's palsy versus stroke. Patient will have initial stroke work-up including CTA of head and neck. Initial NIH stroke scale was a 3 given facial droop and decreased PCP to obtain was normal. Sensation to the right side of the face. Patient not a thrombolytic candidate as she has had symptoms for greater than 24 hours.. CBC with differential obtained was normal. Chemistriesnormal. CT scan of the brain without contrast showed no intracranial hemorrhageor other acute disease process. Patient had CTA head and neck that were normal. Case discussed with hospitalist will evaluate patient for admission. Again sheis not a thrombolytic candidate as she has had symptoms for more than 24 hours. Not a candidate for large vessel clot retrieval. In the differential is stroke versus Dover's palsy. Given symptoms involving the left hand and the fact that she can wrinkle the right side of her forehead concerned about a central cause. Lab Data Labs: Laboratory Results - last 24 hr 06/01/22 06/01/22 06/01/22 18:53 18:55 18:55 WBC 5.2 RBC 4.76 Hgb 14.6 Hct 43.7 MCV 91.8 MCH 30.7 MCHC 33.4 RDW Std Deviation 51.5 H RDW Coeff of Francisco 14.9 H Plt Count 100 L MPV 12.7 H Immature Gran % (Auto) 0.200 Neut % (Auto) 47.6 Lymph % (Auto) 36.2 [place] % (Auto) 11.9 H Eos % (Auto) 3.3 Baso % (Auto) 0.8 Absolute Neuts (auto) 2.5 Absolute Lymphs (auto) 1.88 Nucleated RBC % 0 PT 14.2 INR 1.1 APTT 33.4 Sodium Potassium Chloride Carbon Dioxide Anion Gap BUN Creatinine Estim Creat Clear Calc Est GFR (MDRD) Af Amer Est GFR (MDRD) Non-Af BUN/Creatinine Ratio Glucose Calcium Troponin I High Sens POC Glucose 114 H 06/01/22 18:55 WBC RBC Hgb Hct MCV MCH MCHC RDW Std Deviation RDW Coeff of Francisco Plt Count MPV Immature Gran % (Auto) Neut % (Auto) Lymph % (Auto) [place] % (Auto) Eos % (Auto) Baso % (Auto) Absolute Neuts (auto) Absolute Lymphs (auto) Nucleated RBC % PT INR APTT Sodium 138 Potassium 3.8 Chloride 103 Carbon Dioxide 31.0 Anion Gap 4 L BUN 11 Creatinine 0.61 Estim Creat Clear Calc 66.92 Est GFR (MDRD) Af Amer 126 Est GFR (MDRD) Non-Af 104 BUN/Creatinine Ratio 18.0 Glucose 116 H Calcium 10.0 Troponin I High Sens 4 POC Glucose Radiography Diagnostic Testing: Clinical Impression(s) from Imaging Studies Head/Neck CTA 06/01/22 19:10 IMPRESSION: No acute intracranial abnormality. N.B. : The above Results were Read Back by Sebastien Gaspar MD to Ismael Parikh MD, and understanding confirmed on 06/01/2022 19:45:48 (ET). Electronically Signed: Sebastien Gaspar MD at 19:49 EDT , ADDENDUM: 06/01/221955 IMPRESSION: No acute intracranial abnormality. N.B. : The above Results were Read Back by Sebastien Gaspar MD to Ismael Parikh MD, and understanding confirmed on 06/01/2022 19:45:48 (ET). Electronically Signed: Sebastien Gaspar MD at 19:49 EDT , Chest X-Ray 06/01/22 19:20 IMPRESSION: Degenerative changes, as described above. No demonstrated acute cardiopulmonary process. Electronically Signed: Sebastien Gaspar MD at 19:55 EDT , 1 view chest x-ray obtained interpreted by myself as no evidence of infiltrate or pneumothorax. There is nothing acute. Radiology felt there were degenerative changes but otherwise nothing acute. EKG Initial EKG: Attestation: I personally reviewed and interpreted this EKG as follows: Comments: Sinus rhythm with a rate of [address] changes Discharge Plan Dx/Rx/DC Orders Clinical Impression: Acute CVA (cerebrovascular accident), History of hypertension, Headache Disposition Disposition: Acute Care Hospital [facility] What to do if you have Problems For any increased pain, shortness of breath, bleeding, nausea or vomiting, chestpain, or any unexpected problems, contact your Primary Care Provider. Call [facility] ([phone]) or report to the closest Emergency Room. Call 911 if necessary. 06/01/22 5838 <Electronically signed by Ismael Naqvi DO> Cosigner Signature (if applicable): CC: Dr. Elder Reddy MD ~ Signed [facility] Work Phone: 1(104) 476-317703-21-2023 History and physical note Author Dr. Toussaint [facility] June 01, 2022 11:07pm Note Date/Time June 01, 2022 10: 11pm [facility] Medical Records Department [address] [place] [address] H&P Exam - Hospitalist 06/01/22 2211 MR#: [id number] Acct: [id number] Name: MACY MORALES Rep #:[id number] : 1955 66 From: Matt Toussaint MD PCP: Dr. Elder Reddy MD Status:A DM KATINA Location: [place] [address] HPI - General General Date of Admission: 06/01/22 Date of Service: 06/01/22 Chief Complaint: Facial droop HPI Narrative MACY MORALES, is a 66 F who English speaking and with a significant medical history of hypertension and diabetes presenting to the emergency department withpersistent facial weakness. Patient reports facial weakness to her left side. Reportedly she was drooling from the left side with drinking water and brushing her teeth. Associated symptom is slurry speech. Further patient reports weakness in left hand. [facility] Medical History Diabetes HTN (hypertension) Home Medications atorvastatin 10 mg tablet 10 mg PO DAILY 06/01/22 [History Last Taken Unknown] glipizide 2.5 mg tablet, extended release 24 hr 2.5 mg PO DAILY 06/01/22 [History Last Taken Unknown] lisinopril 10 mg tablet 10 mg PO DAILY 06/01/22 [History Last Taken Unknown] metformin 500 mg tablet,extended release 24 hr 1,000 mg PO BID 06/01/22 [History Last Taken Unknown] Allergy/AdvReac Type Severity Reaction Status Date / Time No Known Allergies Allergy Verified 06/01/22 18:33 Family History Other CVA (cerebral vascular accident) Hypertension Surgical History no surgical history no surgical history Social History Smoking Status: Never smoker ROS ROS Narrative Pertinent positives and pertinent negatives as noted in HPI. All other systems were reviewed and are negative Vital Signs Vital Signs Vital Signs: 06/01/22 18:31 06/01/22 18:37 06/01/22 18:51 Temperature 97.6 F L 97.6 F L Temperature Source Temporal Temporal Pulse Rate 95 89 Respiratory Rate 18 18 Blood Pressure 140/86 H 136/71 H Blood Pressure Mean 104 92 Pulse Ox 98 100 Oxygen Delivery Method Room Air Room Air Room Air 06/01/22 19:19 06/01/22 19:32 06/01/22 20:01 Temperature Temperature Source Pulse Rate 95 93 101 H Respiratory Rate 22 H 17 25 H Blood Pressure 124/69 H 127/106 H 140/73 H Blood Pressure Mean 87 113 95 Pulse Ox 99 100 99 Oxygen Delivery Method Room Air Room Air Room Air 06/01/22 21:01 06/01/22 22:02 Temperature Temperature Source Pulse Rate 94 86 Respiratory Rate 27 H 18 Blood Pressure 129/63 H 119/62 Blood Pressure Mean 85 81 Pulse Ox 98 95 Oxygen Delivery Method Room Air Room Air Weight Weight: 85.049 kg Body Mass Index (BMI) 36.6 Physical Exam Narrative Physical exam: General: Well-nourished, well-developed. Head: Normocephalic, atraumatic, no tenderness Eyes: Vision is grossly intact. EOMI ENT, no trauma, moist mucous membranes, no rhinorrhea Neck: Nontender, No thyromegaly. CVS: Regular rate and rhythm. S1-S2 present. No murmur, gallop or rub. Respiratory : clear to auscultation bilaterally, chest wall nontender, no wheezing Abdomen: Soft, nontender, nondistended, normal bowel sounds, no masses : Deferred Back: Nontender, no CVA tenderness, no midline spinal tenderness, deformities, step-offs Extremities: Nontender full range of motion, no trauma Skin: Normal color, no trauma, abrasions Neuro: Alert, oriented, cranial nerves II through XII grossly intact. No hyperreflexia in the elbow reflex and knee reflexes. Strength 5 out of 5 in all4 extremities. Sensation change in left face compared to right face. Right facial droop. Decrease in wrinkling of right side of forehead compared to left. Psychiatry: Normal mood. Normal affect. Not depressed. Not anxious. Results Lab / Micro Data Result Diagrams: 06/01/22 18:55 06/01/22 18:55 Labs: Laboratory Results - last 24 hr 06/01/22 18:53: POC Glucose 114 H 06/01/22 18:55: WBC 5.2, RBC 4.76, Hgb 14.6, Hct 43.7, MCV 91.8, MCH 30.7, MCHC 33.4, RDW Std Deviation 51.5 H, RDW Coeff of Francisco 14.9 H, Plt Count 100 L, MPV 12.7 H, Immature Gran % (Auto) 0.200, Neut % (Auto) 47.6, Lymph % (Auto) 36.2, [place] % (Auto) 11.9 H, Eos % (Auto) 3.3, Baso % (Auto) 0.8, Absolute Neuts (auto)2.5, Absolute Lymphs (auto) 1.88, Nucleated RBC % 0 06/01/22 18:55: PT 14.2, INR 1.1, APTT 33.4 06/01/22 18:55: Sodium 138, Potassium 3.8, Chloride 103, Carbon Dioxide 31.0, Anion Gap 4 L, BUN 11, Creatinine 0.61, Estim Creat Clear Calc 66.92, Est GFR (MDRD) Af Amer 126, Est GFR (MDRD) Non-Af 104, BUN/Creatinine Ratio 18.0, Glucose 116 H, Calcium 10.0, Troponin I High Sens 4 Radiology Impression Head/Neck CTA 06/01/22 19:10 IMPRESSION: No acute intracranial abnormality. N.B. : The above Results were Read Back by Sebastien Gaspar MD to Ismael Parikh MD, and understanding confirmed on 06/01/2022 19:45:48 (ET). Electronically Signed: Sebastien Gaspar MD at 19:49 EDT , ADDENDUM: 06/01/221955 IMPRESSION: No acute intracranial abnormality. N.B. : The above Results were Read Back by Sebastien Gaspar MD to Ismael Parikh MD, and understanding confirmed on 06/01/2022 19:45:48 (ET). Electronically Signed: Sebastien Gaspar MD at 19:49 EDT , Chest X-Ray 06/01/22 19:20 IMPRESSION: Degenerative changes, as described above. No demonstrated acute cardiopulmonary process. Electronically Signed: Sbeastien Gaspar MD at 19:55 EDT , Assessment & Plan Assessment/Plan (1) Acute CVA (cerebrovascular accident): PLAN: Plan Strokelike symptoms Differentials include acute CVA, TIA or Dover's palsy. Objectively patient has right facial droop although she reports left facial symptoms. Head and neck CTA was visualized and independently interpreted. No hemorrhage of brain or hemodynamically significant stenosis seen in head and neck. I agreewith radiology interpretation. Serial NINDS NIH Scale ordered Lipid profile and A1c ordered. Physical therapy, occupational therapy and speech therapy to work with patient. N.p.o. until bedside swallow eval. Daily aspirin. Home statin escalated to high intensity statin. As needed Tylenol for headache. Permissive hypertension. Control blood pressure with labetalol for systolic blood pressure of more than 220 or diastolic blood pressure of more than 120. MRI of brain ordered Echocardiogram ordered. Hypertension Blood pressure is stable Hold home hypertensive medications secondary to strokelike symptoms. Diabetes mellitus Euglycemic on presentation Glipizide continued. Metformin held. Monitor Accu-Cheks Correction scale insulin ordered. DVT prophylaxis: SCDs ordered Charges/Coding Visit Charges Inpatient E&M: 58054 Init Hosp L2 06/01/223 <Electronically signed by Matt Toussaint MD> Cosigner Signature (if applicable): CC: Dr. Matt Toussaint MD; Dr. Elder Reddy MD~ Signed [facility] Work Phone: [phone]) 544-548102-06-2023 Miscellaneous Notes* Telephone Encounter - Alexandra Barbosa Pss - 04/20/2022 12:08 PM EST Patient returned call and given message below. * Telephone Encounter - Benito Umaña Ma - 04/20/2022 10:31 AM EST Left message to call office. 04/20/2022 10:31 AM * Telephone Encounter - Ana Mccarty APRN.CNP - 04/20/2022 8:02 AM EST Please let the patient know HgbA1c was 6.8, diabetes well controlled. Liver enzymes elevated but stable. TSH abnormal, recheck in 6 weeks. Ana Mccarty APRN.[employer] Component Latest Ref Rng & Units 04/15/2022 Protein, Total 6.3 - 8.0 g/dL 8.0 Albumin 3.9 - 4.9 g/dL 4.1 Calcium 8.5 - 10.2 mg/dL 9.7 Bilirubin, Total 0.2 - 1.3 mg/dL 1.3 Alkaline Phosphatase 34 - 123 U/L 237 (H) AST 13 - 35 U/L 71 (H) ALT 7 - 38 U/L 53 (H) Glucose 74 - 99 mg/dL 127 (H) BUN 7 - 21 mg/dL 6 (L) Creatinine 0.58 - 0.96 mg/dL 0.40 (L) Sodium 136 - 144 mmol/L 138 Potassium 3.7 - 5.1 mmol/L 4.3 Chloride 97 - 105 mmol/L 102 CO2 22 - 30 mmol/L 24 Anion Gap 9 - 18 mmol/L 12 eGFR >=60 mL/min/1.73m 111 Creatinine, Ur Random (UCRR) 20.0 - 300.0 mg/dL 105.3 Albumin, Urine Random mg/L <12.0 Albumin/Creat Ratio <30 mg/g <11 Hemoglobin A1C 4.3 - 5.6 % 6.8 (H) Estimated Average Glucose mg/dL 148 TSH 0.270 - 4.200 mIU/L 4.590 (H) documented in this encounterMckit[facility]01-03-2023 Miscellaneous Notes* Telephone Encounter - Joana Gillette LPN - 03/17/2022 4:05 PM EST Patient has been identified by name and date of : Yes Patient phones for refill(s): Requested Prescriptions Pending Prescriptions Disp Refills glipiZIDE XL (GLUCOTROL XL) 2.5 mg 24 hr tablet 90 tablet 3 Sig: Take 1 tablet by mouth once daily. atorvastatin (LIPITOR) 10 mg tablet 90 tablet 3 Sig: Take 1 tablet by mouth daily at bedtime. For cholesterol. clotrimazole-betamethasone (LOTRISONE) cream 45 g 2 Sig: Apply to affected area twice daily as needed. Date of last office visit in primary care: 11/03/2021 3 month follow-up: 05/05/2022 Last 2 Encounter Wt Readings: Date: Wt: 11/03/2021 82.6 kg (182 lb) 07/29/2021 80.9 kg (178 lb 6.4 oz) Previous labs/tests for medication: Diabetes: Hemoglobin A1C (%) Date Value 11/19/2021 7.2 07/28/2021 8.3 Cholesterol: HDL Cholesterol (mg/dL) Date Value 11/19/2021 93 LDL Cholesterol (mg/dL) Date Value 11/19/2021 92 ALT (U/L) Date Value 07/28/2021 50 Non HDL Cholesterol (mg/dL) Date Value 11/19/2021 109 Please advise. Thank you. Joana Gillette LPN * Telephone Encounter - Jenifer Lane - 03/17/2022 2:10 PM EST Patient has been identified by name and date of : Yes Requested Prescriptions Pending Prescriptions Disp Refills glipiZIDE XL (GLUCOTROL XL) 2.5 mg 24 hr tablet 90 tablet 3 Sig: Take 1 tablet by mouth once daily. atorvastatin (LIPITOR) 10 mg tablet 90 tablet 3 Sig: Take 1 tablet by mouth daily at bedtime. For cholesterol. clotrimazole-betamethasone (LOTRISONE) cream 45 g 2 Sig: Apply to affected area twice daily as needed. RX INSTRUCTIONS: Patient aware RX will be sent to pharmacy. No need to notify patient. Jenifer Gasca Pss documented in this encounterM[facility]12-07-2022 Miscellaneous Notes* Telephone Encounter - Rere Samuel RN - 02/18/2022 9:47 AM EST Pt called and is notified of providers message. Pt voices understanding. Rere Samuel RN * Telephone Encounter - Benito Umaña Ma - 02/18/2022 9:02 AM EST Left message to call office. 02/18/2022 9:02 AM * Telephone Encounter - Ana Mccarty APRN.CNP - 02/18/2022 7:53 AM EST Per the notes below patient requested the 1000 mg tablet which I switched it to and warned patient it may be too expensive. Please let her know I am changing it back Ana Mccarty APRN.CNP * Telephone Encounter - Alexandra Nicolas RN - 02/17/2022 4:39 PM EST [facility] pharmacist Willie calling and noted patient's recent script for metformin ER 1000mg. He statesit is going to be costly for patient, approx $1000 or more. Willie recommends provider to change to Metfromin ER 500mg and adjust dosing and quantity to what pt needs. Please update pharmacy. Thank you. * Telephone Encounter - Ana Mccarty APRN.CNP - 02/17/2022 3:26 PM EST I changed it to 1000 mg tablet however insurance may not cover it Ana Mccarty APRN.[employer] * Telephone Encounter - Maryisrael Ramirez - 02/17/2022 1:54 PM EST Macy Morales is calling Elder Reddy MD today requesting a refill of the Metformin. She is asking if medication can be changed to 1000 mg instead of 500 mg taking two twice daily? Pranav Ingram metFORMIN ER (GLUCOPHAGE XR) 500 mg 24 hr tablet 120 tablet 2 07/23/2021 Sig: Take 2 tablets by mouth twice daily with meals. Sent to pharmacy as: metFORMIN ER (GLUCOPHAGE XR) 500 mg 24 hr tablet documented in this encounterMckitrick Hospital08-22-2022 Instructions* Patient Instructions* Elder Reddy MD - 11/03/2021 3:58 PM EDT Hacer analisis de de naz en ayunas pronto documented in this encounterMckitrick Hospital08-22-2022 History of Present illness Narrative* Elder Reddy MD - 11/03/2021 3:48 PM EDT This note was created using Media[employer]ik[employer]. Subjective Macy Morales is a 66 year old female. She was taking her medications with no side effects. She hadnot done follow up labs. Review of Systems Constitutional: Negative. Respiratory: Negative. Cardiovascular: Negative. Gastrointestinal: Negative. ACTIVE PROBLEM LIST Controlled Type 2 Diabetes Mellitus Without Complication, Without Long-Term Current Use of Insulin (Hcc) Obesity, Class II, Bmi 35-39.9 Primary Hypertension Pure Hypercholesterolemia Elevated Tsh Abnormal Liver Enzymes Thrombocytopenia (Hcc) Current Outpatient Medications Medication Sig atorvastatin (LIPITOR) 10 mg tablet Take 1 tablet by mouth daily at bedtime. For cholesterol. glipiZIDE (GLUCOTROL XL) 2.5 mg 24 hr tablet Take 1 tablet by mouth once daily. metFORMIN ER (GLUCOPHAGE XR) 500 mg 24 hr tablet Take 2 tablets by mouth twice daily with meals. lisinopril (ZESTRIL, PRINIVIL) 10 mg tablet Take 1 tablet by mouth once daily. clotrimazole-betamethasone (LOTRISONE) cream Apply to affected area twice daily as needed. No current facility-administered medications for this visit. Objective BP 124/80 (BP Site: Left Arm, BP Position: Sitting, BP Cuff Size: Large Adult) Pulse 80 Temp 36.1 C (96.9 F) (Temporal) Resp 16 Wt 82.6 kg (182 lb) BMI 38.04 kg/m Physical Exam Constitutional: General: She is not in acute distress. Cardiovascular: Rate and Rhythm: Normal rate and regular rhythm. Heart sounds: No murmur heard. No gallop. Pulmonary: Breath sounds: Normal breath sounds. Abdominal: Tenderness: There is no abdominal tenderness. Musculoskeletal: Right lower leg: No edema. Left lower leg: No edema. Neurological: Mental Status: She is alert. US results reviewed. Assessment and Plan 1. Controlled type 2 diabetes mellitus without complication, without long-term current use of insulin (HCC) - ICD9: 250.00, ICD10: E11.9 (primary diagnosis) - Continue current medications - Fasting labs ordered. - BASIC METABOLIC PNL - HGB A1C - LIPID PANEL BASIC 2. Fatty liver - ICD9: 571.8, ICD10: K76.0 Diabetes control. Weight loss. 3. Primary hypertension - ICD9: 401.9, ICD10: I10 - good control - LISINOPRIL 10 MG TABLET 4. Obesity, Class II, BMI 35-39.9 - ICD9: 278.00, ICD10: E66.9 Weight increasing - Behavioral intervention Elder Reddy MD documented in this encounterMckitrick Hospital07-13-2022 History of Present illness Narrative* Guerrero Peterbrendan, [facility] - 09/24/2021 1:00 PM EDT Primary Care Pharmacy Visit REASON FOR CONSULT: DM GOALS: A1c < 7% CONSULTING PROVIDER: Elder Reddy MD Date of Consult: 08/05/21 Macy Morales is a 65 year old female presenting for initial visit: This initial consult was conducted in person with the patient where the consult agreement was explained. The patient may decline orcancel the agreement at any time. After consideration, the patient consented to the pharmacy consult agreement and agreed to allow medications be collaboratively managed by a pharmacist. Last seen byPCP, Dr. Elder Reddy MD on 07/23/21. At last PCP appt, metformin dose was adjusted to ER formulation. INTERIM HISTORY: Currently checking blood sugar once daily Reports typically checks in the evening before bed around 11 pm Reports typical BG readings in the 130s Increasing exercise - goes for walks in neighborhood 2 times per week Working on her diet, states many of her typical meals were higher in carbs with tortillas and tacosbut now trying to have more salads and limit carbs States she has been taking metformin only 1000 mg total daily dose as she did not realize the metformin pill strength changes to 500 mg when switching to ER formulation States diarrhea unchanged on current lower metformin dose, only occurs 2 days a month Current DM Medications: Metformin ER 500 mg - 2 tabs twice daily - Taking differently: 1 tablet BID Glipizide XL 2.5 mg once daily Preventative Medications: On ROBERT/ARB: Yes On Statin: Yes GLYCEMIC CONTROL: Glucometer present at visit: No SMBG: Currently checking blood sugar once daily, Reports typically checks in the evening before bedaround 11 pm. Typically readings in the 130s Hypoglycemia: denies ROS: Patient denies CP, SOB, STEWARD, blurred vision, dizziness or lightheadedness Patient denies nausea, vomiting, diarrhea, abdominal pain Patient denies symptoms of hypoglycemia (sweating, anxiety, palpitations, hunger, and tremor) Patient denies symptoms of hyperglycemia (polyuria, polydipsia, polyphagia) Patient denies potential medication adverse effects MEDICATIONS: Pill bottles are not present. Adherence: denies missed doses. ACTIVE PROBLEM LIST Controlled Type 2 Diabetes Mellitus Without Complication, Without Long-Term Current Use of Insulin (Hcc) Obesity, Class II, Bmi 35-39.9 Primary Hypertension Pure Hypercholesterolemia Elevated Tsh Abnormal Liver Enzymes Thrombocytopenia (Hcc) PAST MEDICAL HISTORY Diagnosis Date Controlled type 2 diabetes mellitus without complication, without long-term current use of insulin (HCC) 04/28/2021 COVID-19 02/05/2020 Obesity, Class II, BMI 35-39.9 07/23/2021 Primary hypertension 07/23/2021 Pure hypercholesterolemia 11/10/2019 ALLERGIES No Known Allergies Medication List Medication Directions Comments Action/Plan atorvastatin (LIPITOR) 10 mg tablet Take 1 tablet by mouth daily at bedtime. For cholesterol. Taking as directed clotrimazole-betamethasone (LOTRISONE) cream Apply to affected area twice daily as needed. PRN glipiZIDE (GLUCOTROL XL) 2.5 mg 24 hr tablet Take 1 tablet by mouth once daily. Taking as directed lisinopril (ZESTRIL, PRINIVIL) 10 mg tablet Take 1 tablet by mouth once daily. Taking as directed metFORMIN ER (GLUCOPHAGE XR) 500 mg 24 hr tablet Take 2 tablets by mouth twice daily with meals. Taking as directed Rx meds not listed in EPIC: none OTCs: none Herbals: none EXAM: Last 3 Encounter BP Readings: Date: BP: 07/29/2021 122/80 07/23/2021 122/80 04/28/2021 125/83 Wt: 80.9 kg (178 lb 6.4 oz) BMI: 37.29 kg/(m^2) LABS: Lab Results Component Value Date HBA1C 8.3 07/28/2021 CMP: Glucose 157 07/28/2021 BUN 7 07/28/2021 Creatinine 0.51 07/28/2021 Sodium 139 07/28/2021 Potassium 5.1 07/28/2021 Chloride 102 07/28/2021 CO2 27 07/28/2021 Protein, Total 8.0 07/28/2021 Albumin 4.1 07/28/2021 Calcium, Total 9.8 07/28/2021 Alkaline Phosphatase 224 07/28/2021 Bilirubin, Total 1.0 07/28/2021 AST 64 07/28/2021 ALT 50 07/28/2021 EGFR: >60 mL/min/1.73m2 No results found for: B12 Lab Results Component Value Date CHOL 267 07/28/2021 LDL 152 07/28/2021 HDL 87 07/28/2021 TG 139 07/28/2021 The 10-year ASCVD risk score (Sampson LUQUE Jr., et al., 2013) is: 9.8% Values used to calculate the score: Age: 65 years Sex: Female Is Non- : No Diabetic: Yes Tobacco smoker: No Systolic Blood Pressure: 122 mmHg Is BP treated: Yes HDL Cholesterol: 87 mg/dL Total Cholesterol: 267 mg/dL No results found for: UALBCR PHARMACOTHERAPY ASSESSMENT/PLAN: 1. Controlled type 2 diabetes mellitus without complication, without long-term current use of insulin ([facility]) - ICD9: 250.00, ICD10: E11.9 (primary diagnosis) A1c goal < 7%; not at goal (last A1c 8.3%); SMBG improved on current regimen; denies s/sx hypoglycemia; denies s/sx hyperglycemia; Patient is taking lower than prescribed dose of metformin. Today,discussed increasing to prescribed dose. Renal function and LFTs appropriate for continued use ADJUST metformin to prescribed dose : Metformin ER 500 mg - 2 tabs twice daily CONTINUE Glipizide XL 2.5 mg once daily Instructed to check blood sugar once daily: alternate before breakfast and bedtime Diabetic Education given re: disease pathology, signs of high blood sugar, signs and symptoms and management of hypoglycemia, risks of poor control, diabetic diet with basic carbohydrate counting, need for aerobic exercise with goal 30 mins/day, 5x/week, need for an annual dilated eye exam, and timing for home glucose monitoring with a review of target ranges 2. Medication management - ICD9: V58.69, ICD10: Z79.899 Reviewed name, strength, route, frequency and time of administration of medications. Medication list updated as described in above medication chart. Follow up: Patient is scheduled to see PCP team on 10/01/21. Patient to follow up with PharmD on 10/20/21. Patient verbalized understanding of instructions. Guerrero Rolon, NapoleonD, BCACP Primary Care Clinical Pharmacist [facility] The majority of the pharmacy visit (> 50%) was spent counseling and/or coordinating care for thepatient. [Face to Face] time was 49 minutes. documented in this encounterMckitrick Hospital07-13-2022 Instructions* Patient Instructions* Guerrero Rolon RPh - 09/24/2021 1:00 PM EDT Change metformin to 2 tablets twice daily Continue glipizide at the same dose Check blood sugar once daily: alternate before breakfast and bedtime documented in this encounterMckitrick Hospital07-06-2022 History of Present illness Narrative* JENY Grant - 09/17/2021 11:25 AM EDT Sw met with patient for diabetes ed program. Nurse was not available today to meet with patient. Sw utilized historical interpreter service during visit. Hollis-Asset Card Clerk also provided Sw with English version of diabetes resource guide. Sw and patient discussed social determinants of health. At this time, patient notes no concern with cost of food, housing, transportation, medications. SW and patient discussed what concerns patient most with diabetes diagnosis. Patient notes that she is concerned with dieing and start to have other sickness. When discussing foods that patient likes to eat, patient reports tacos/tortillas are some of her favorites. Patient reports not knowing what a diabetes diet consists of and would like more information on foods that are better for her. Sw and patient discussed our dietitian-Cassi. Patient would like to meet with Cassi and will bring in food log to review with dietitian. Patient reports in regards exercise on social determinants of health that she does get out with children and enjoys walking. Patient Goals: 1. Meet with Dietitian-will send note to Dr. Reddy to see about dietitian order. 2. Call Medicaid Shared Services [phone] Patient reports that she is open to calling and being screened over the phone for [place] Medicaid. Patient would like phone call for follow up. Sw provided patient with her direct number as well, in case patient has further needs. documented in this encounterMckitrick Hospital07-06-2022 History of Present illness Narrative* Stephanie Humphreys RN - 09/17/2021 11:23 AM EDT DIABETES CARE AND EDUCATION VISIT Location: [place] Type of visit: In person individual PATIENT'S MAIN CONCERN TODAY: Learn more Support person present for education today: none Cognitive ability: Alert and oriented Motivation to learn: Interested Learning barriers identified by educator: language and interview conducted with assistance of the [employer] translation system Method of instruction: written, verbal and audio DIABETES FINDINGS: Meal Planning: briefly reviewed 30-60g carb diet Medications: discussed medications pt was taking and their purpose Physical Activity: encouraged to gently increase as able HANDOUTS: Healthy You: Survival Skills (English) , Healthy You: Planning Healthy Meals (English) and DiabetesPlacemat (English) LEARNING RESPONSE: Healthy eating: Demonstrated understanding/competency today or at previous visit POSSIBLE FUTURE TOPICS: 1. DIABETES CARE AND EDUCATION PLAN: Individual follow-up Time Spent (Minutes): 30 This visit note will be communicated to the healthcare provider via access to shared medical record. SIGNATURE: Stephanie Humphreys RN PATIENT NAME: Macy Morales DATE: September 17, 2021 TIME: 11:50 AM PAGER: documented in this encounterMckitrick Hospital06-21-2022 History of Present illness Narrative* RT Dwaine(R) - 09/02/2021 8:30 AM EDT Radiology Service Progress Note PATIENT NAME: Macy Morales DATE OF SERVICE: September 02, 2021 TIME: 9:09 AM PATIENT IDENTITY VERIFICATION COMPLETED USING TWO (2) IDENTIFIERS: Name and Date of confirmedby patient verbally. FALL SCREENING: Has the patient had 2 falls in the last year or 1 fall with injury or currently using an Ambulatory Assistive Device (Walker, Cane, Wheelchair, Crutches, etc.)? No PATIENT GENDER DATA: Female. status: : No status: NO. PATIENT RELEVANT IMPLANT DATA REVIEWED: Not Applicable RADIOLOGY DEPARTMENT: Ultrasound PERIPHERAL IV DATA: Not applicable SIGNED BY: RT Dwaine(R) September 02, 2021 9:09 AM documented in this encounterMckitrick Hospital06-01-2022 Miscellaneous Notes* Telephone Encounter - Radha Lane - 08/13/2021 2:53 PM EDT Scheduled 09/03/21 * Telephone Encounter - Zee Gayathri - 08/12/2021 10:00 AM EDT Patient called. She would like to schedule her consultation to diabetes education, but since she kermit self pay patient, it wouldn't let me schedule from the order, nor the referral. I created a new financial clearance referral for consult to diabetes education. Will check status of this referral tomorrow. Thank you. Zee Trinh documented in this encounterMckitrick Hospital05-31-2022 Miscellaneous Notes* Telephone Encounter - Arie Swan Pss - 08/12/2021 2:25 PM EDT Patient scheduled for US on 09/02 and voiced understanding. * Telephone Encounter - Arie Swan Pss - 08/12/2021 2:17 PM EDT Unable to reach patient but appointment reminder letter has been sent to regarding DM education appointments. Will keep attempting to reach patient to schedule US. * Telephone Encounter - Arie Swan Pss - 08/09/2021 3:10 PM EDT 1st attempt to reach patient. Left message for patient to call office to schedule follow up per PCP. * Telephone Encounter - Joana Gillette LPN - 08/06/2021 9:47 AM EDT Patient notified of below results/recommendations, verbalized understanding. PSS please contact Patient to schedule, US, Diabetic Structured program. Joana Gillette LPN * Telephone Encounter - Elder Reddy MD - 08/05/2021 7:22 PM EDT 1) TSH abnormal. Repeat in 6 weeks. 2) Cholesterol high. Start atorvastatin 10 mg at bedtime. 3) DM uncontrolled. Refer to diabetic structured program. 4) Abnormal liver enzymes. US RUQ. Remote hepatitis panel, LFT in 6 weeks. Don't drink alcohol. 5) Low platelets. Repeat in 6 weeks. [facility] Miscellaneous Notes* Telephone Encounter - ALFRED Beckett - 08/07/2021 3:01 PM EDT Telephoned the patient to schedule med/rev appt. Left a message. * Telephone Encounter - ALFRED Beckett - 08/06/2021 11:21 AM EDT Telephoned the patient to schedule med/rev appt. Left a message [facility] History of Past illness Narrative* Problem Noted Date Diagnosed Date Resolved Date Elevated TSH 08/05/2021 04/26/2023 Obesity, Class I, BMI 30-34.9 04/28/2021 07/23/2021 documented as of this encounter (statuses as of 04/27/2023) [facility] of Past illness Narrative* Problem Noted Date Diagnosed Date Resolved Date Elevated TSH 08/05/2021 04/26/2023 Obesity, Class I, BMI 30-34.9 04/28/2021 07/23/2021 documented as of this encounter (statuses as of 04/27/2023) [facility] of Past illness Narrative* Problem Noted Date Diagnosed Date Resolved Date Elevated TSH 08/05/2021 04/26/2023 Obesity, Class I, BMI 30-34.9 04/28/2021 07/23/2021 documented as of this encounter (statuses as of 05/03/2023) [facility] of Past illness Narrative* Problem Noted Date Diagnosed Date Resolved Date Elevated TSH 08/05/2021 04/26/2023 Obesity, Class I, BMI 30-34.9 04/28/2021 07/23/2021 documented as of this encounter (statuses as of 06/30/2023) [facility] History of Present illness Narrative* Katherine Goldstein, OD - 07/28/2021 11:09 AM EDT 1. Type 2 diabetes mellitus without retinopathy (HCC) Risk of diabetic changes and vision loss can be minimized by tight control of blood sugar, blood pressure, and cholesterol levels. Educated patient to continue care with primary care doctor and/or community coordinator for high school to maintain optimum levels as they are important to avoid ocular complications. Encouraged patient to call the office immediately with any changes to vision or visual concerns. Advised to not wait until the next scheduled exam. 2. Combined forms of age-related cataract of both eyes Mild visual significance Recommended UV eye protection outdoors Monitor yearly 3. Presbyopia Continue with OTC readers Monitor yearly Katherine Goldstein, OD July 28, 2021 11:09 AM [facility] Instructions* Patient Instructions* Elder Reddy MD - 07/23/2021 4:19 PM EDT FASTING BLOOD WORK (EN AYUNA) documented [facility] History of Present illness Narrative* Elder Reddy MD - 07/23/2021 3:24 PM EDT This note was created using NoteWriter. Subjective Patient presents with: F/U 3 Month Macy Morales is a 65 year old female I am seeing for the first time. She spoke Marshallese as a 2nd language enough and declined translation service. She had diabetes mellitus that was controlled. She was concerned about weight gain. She had diarrhea that may have been brought on by a combination of Covid infection and metformin. Review of Systems Constitutional: Positive for unexpected weight change. Negative for chills and fever. HENT: Negative. Eyes: Negative. Respiratory: Negative for chest tightness, shortness of breath and wheezing. Cardiovascular: Negative for chest pain, palpitations and leg swelling. Gastrointestinal: Positive for diarrhea. Negative for abdominal pain, blood in stool, nausea and vomiting. Genitourinary: Negative for difficulty urinating and dyspareunia. Neurological: Negative. ACTIVE PROBLEM LIST Controlled Type 2 Diabetes Mellitus Without Complication, Without Long-Term Current Use of Insulin ([facility]) Obesity, Class I, Bmi 30-34.9 PAST MEDICAL HISTORY Diagnosis Date Controlled type 2 diabetes mellitus without complication, without long-term current use of insulin ([facility]) 04/28/2021 COVID-19 02/05/2020 Obesity, Class II, BMI 35-39.9 07/23/2021 Primary hypertension 07/23/2021 Pure hypercholesterolemia 11/10/2019 Social History Tobacco Use Smoking status: Never Smoker Smokeless tobacco: Never Used Vaping Use Vaping Use: Never used Substance Use Topics Alcohol use: Not Currently Drug use: Not Currently Current Outpatient Medications Medication Sig metFORMIN (GLUCOPHAGE) 1,000 mg tablet Take 1,000 mg by mouth twice daily with meals. glipiZIDE (GLUCOTROL XL) 2.5 mg 24 hr tablet Take 1 tablet by mouth once daily. lisinopril (ZESTRIL, PRINIVIL) 10 mg tablet Take 1 tablet by mouth once daily. clotrimazole-betamethasone (LOTRISONE) cream Apply to affected area twice daily as needed. No current facility-administered medications for this visit. Objective BP 122/80 (BP Site: Left Arm, BP Position: Sitting, BP Cuff Size: Large Adult) Pulse 80 Temp 36.8 C (98.3 F) (Temporal Artery) Resp 16 Wt 81.2 kg (179 lb) BMI 37.41 kg/m Physical Exam Constitutional: Appearance: She is obese. She is not ill-appearing. HENT: Head: Normocephalic. Cardiovascular: Rate and Rhythm: Normal rate and regular rhythm. Heart sounds: No murmur heard. No gallop. Pulmonary: Effort: Pulmonary effort is normal. Breath sounds: Normal breath sounds. Abdominal: Palpations: Abdomen is soft. Tenderness: There is no abdominal tenderness. Musculoskeletal: Right lower leg: No edema. Left lower leg: No edema. Lymphadenopathy: Cervical: No cervical adenopathy. Feet:Shoes and socks removed, No deformities, ulcers, calluses, normal distal pulses and sensitive to 10 gm monofilament Labs: None done. Assessment and Plan 1. Controlled type 2 diabetes mellitus without complication, without long-term current use of insulin (HCC) - ICD9: 250.00, ICD10: E11.9 (primary diagnosis) The patient is new to me. - Continue current medications - Begin GLIPIZIDE ER 2.5 MG TABLET, EXTENDED RELEASE 24 HR. Discussed medication dosage, usage, goals of therapy, and side effects. Patient indicated understanding and willingness to follow recommendations. - COMP METABOLIC PANEL - LIPID PANEL BASIC - HGB A1C - CONSULT TO OPHTHALMOLOGY - METFORMIN ER 500 MG TABLET,EXTENDED RELEASE 24 HR. 2 tablets twice daily. We discussed reason forswitching to ER. 2. Obesity, Class II, BMI 35-39.9 - ICD9: 278.00, ICD10: E66.9 Weight increasing - Behavioral intervention - TSH BLD 3. Primary hypertension - ICD9: 401.9, ICD10: I10 - good control - Continue current medication(s) - Reviewed risks of HTN and principles of treatment - Goal of BP <130/80 - CBC - CBC 4. Diarrhea, unspecified type - ICD9: 787.91, ICD10: R19.7 See #1. 5. Pure hypercholesterolemia - ICD9: 272.0, ICD10: E78.00 Reevaluate. Elder Reddy MD documented in this [facility] History of Past illness Narrative* Problem Noted Date Resolved Date Obesity, Class I, BMI 30-34.9 04/28/2021 documented as of this encounter (statuses as of 07/25/2021) [facility] of Past illness Narrative* Problem Noted Date Resolved Date Obesity, Class I, BMI 30-34.9 04/28/2021 documented as of this encounter (statuses as of 07/28/2021) [place] [address] History of Past illness Narrative* Problem Noted Date Resolved Date Obesity, Class I, BMI 30-34.9 04/28/2021 documented as of this encounter (statuses as of 08/07/2021) [address] History of Past illness Narrative* Problem Noted Date Resolved Date Obesity, Class I, BMI 30-34.9 04/28/2021 documented as of this encounter (statuses as of 08/13/2021) [address] History of Past illness Narrative* Problem Noted Date Resolved Date Obesity, Class I, BMI 30-34.9 04/28/2021 documented as of this encounter (statuses as of 09/03/2021) [address] History of Past illness Narrative* Problem Noted Date Resolved Date Obesity, Class I, BMI 30-34.9 04/28/2021 documented as of this encounter (statuses as of 09/06/2021) [address] History of Past illness Narrative* Problem Noted Date Resolved Date Obesity, Class I, BMI 30-34.9 04/28/2021 documented as of this encounter (statuses as of 09/17/2021) [address] History of Past illness Narrative* Problem Noted Date Resolved Date Obesity, Class I, BMI 30-34.9 04/28/2021 documented as of this encounter (statuses as of 09/29/2021) [place] [address] History of Past illness Narrative* Problem Noted Date Resolved Date Obesity, Class I, BMI 30-34.9 04/28/2021 documented as of this encounter (statuses as of 10/01/2021) [place] [address] History of Past illness Narrative* Problem Noted Date Resolved Date Obesity, Class I, BMI 30-34.9 04/28/2021 documented as of this encounter (statuses as of 11/03/2021) [place] [address] History of Past illness Narrative* Problem Noted Date Resolved Date Obesity, Class I, BMI 30-34.9 04/28/2021 documented as of this encounter (statuses as of 02/18/2022) [facility] Narrative* Problem Noted Date Resolved Date Obesity, Class I, BMI 30-34.9 04/28/2021 documented as of this encounter (statuses as of 03/21/2022) [facility] Narrative* Problem Noted Date Resolved Date Obesity, Class I, BMI 30-34.9 04/28/2021 documented as of this encounter (statuses as of 04/13/2022) [facility] illness Narrative* Problem Noted Date Resolved Date Obesity, Class I, BMI 30-34.9 04/28/2021 documented as of this encounter (statuses as of 04/20/2022) [facility] Narrative* Problem Noted Date Resolved Date Obesity, Class I, BMI 30-34.9 04/28/2021 documented as of this encounter (statuses as of 06/09/2022) [facility] Narrative* Problem Noted Date Resolved Date Obesity, Class I, BMI 30-34.9 04/28/2021 documented as of this encounter (statuses as of 06/16/2022) [facility] Narrative* Problem Noted Date Resolved Date Obesity, Class I, BMI 30-34.9 04/28/2021 documented as of this encounter (statuses as of 06/17/2022) [facility] Narrative* Problem Noted Date Resolved Date Obesity, Class I, BMI 30-34.9 04/28/2021 documented as of this encounter (statuses as of 06/23/2022) [address] History of Past illness Narrative* Problem Noted Date Resolved Date Obesity, Class I, BMI 30-34.9 04/28/2021 documented as of this encounter (statuses as of 06/24/2022) [address] History of Past illness Narrative* Problem Noted Date Resolved Date Obesity, Class I, BMI 30-34.9 04/28/2021 documented as of this encounter (statuses as of 06/30/2022) [address] History of Past illness Narrative* Problem Noted Date Resolved Date Obesity, Class I, BMI 30-34.9 04/28/2021 documented as of this encounter (statuses as of 07/13/2022) [address] History of Past illness Narrative* Problem Noted Date Resolved Date Obesity, Class I, BMI 30-34.9 04/28/2021 documented as of this encounter (statuses as of 07/14/2022) [address] History of Past illness Narrative* Problem Noted Date Resolved Date Obesity, Class I, BMI 30-34.9 04/28/2021 documented as of this encounter (statuses as of 07/21/2022) [address] History of Past illness Narrative* Problem Noted Date Resolved Date Obesity, Class I, BMI 30-34.9 04/28/2021 documented as of this encounter (statuses as of 08/12/2022) [address] History of Past illness Narrative* Problem Noted Date Resolved Date Obesity, Class I, BMI 30-34.9 04/28/2021 documented as of this encounter (statuses as of 09/08/2022) [address] History of Past illness Narrative* Problem Noted Date Diagnosed Date Resolved Date Obesity, Class I, BMI 30-34.9 04/28/2021 07/23/2021 documented as of this encounter (statuses as of 09/28/2022) [address] History of Past illness Narrative* Problem Noted Date Diagnosed Date Resolved Date Obesity, Class I, BMI 30-34.9 04/28/2021 07/23/2021 documented as of this encounter (statuses as of 09/30/2022) [facility] Narrative* Problem Noted Date Diagnosed Date Resolved Date Obesity, Class I, BMI 30-34.9 04/28/2021 07/23/2021 documented as of this encounter (statuses as of 10/20/2022) [address] History of Past illness Narrative* Problem Noted Date Diagnosed Date Resolved Date Obesity, Class I, BMI 30-34.9 04/28/2021 07/23/2021 documented as of this encounter (statuses as of 11/18/2022) [address] History of Past illness Narrative* Problem Noted Date Diagnosed Date Resolved Date Obesity, Class I, BMI 30-34.9 04/28/2021 07/23/2021 documented as of this encounter (statuses as of 11/30/2022) [address] History of Past illness Narrative* Problem Noted Date Diagnosed Date Resolved Date Obesity, Class I, BMI 30-34.9 04/28/2021 07/23/2021 documented as of this encounter (statuses as of 01/18/2023) [address] History of Past illness Narrative* Problem Noted Date Diagnosed Date Resolved Date Obesity, Class I, BMI 30-34.9 04/28/2021 07/23/2021 documented as of this encounter (statuses as of 01/18/2023) [facility] illness Narrative* Problem Noted Date Diagnosed Date Resolved Date Obesity, Class I, BMI 30-34.9 04/28/2021 07/23/2021 documented as of this encounter (statuses as of 02/23/2023) [address] History of Past illness Narrative* Problem Noted Date Diagnosed Date Resolved Date Obesity, Class I, BMI 30-34.9 04/28/2021 07/23/2021 documented as of this encounter (statuses as of 04/22/2023) [address] History of Past illness Narrative* Problem Noted Date Diagnosed Date Resolved Date Obesity, Class I, BMI 30-34.9 04/28/2021 07/23/2021 documented as of this encounter (statuses as of 04/23/2023) [facility] Mayo Mccullough [facility] July 06, 2023 5:05am Note Date/Time July 06, 2023 4:[address] [facility] Medical Records Department [address] [place] [address] Emergency Department Summary 07/06/23 MR#: [id number] Acct: [id number] Name: MACY MORALES Rep #:[id number] : 1955 67 From: Mayo Mccullough DO PCP: Dr. Elder Reddy MD Status:A DM IN Location: ICU ICU06-1 HPI History of Present Illness Chief Complaint: GI Bleed Informant: patient and family Narrative Narrative: Patient is a English-speaking 67-year-old female whose daughter interprets with past medical history of hypertension hyperlipidemia and diabetes. Daughter states that the patient will have intermittent bouts of nausea vomiting and diarrhea for no apparent reason and it has been this way for quite some time. Daughter states that the patient had her bout of vomiting and diarrhea today however in her emesis she had streaks of bright red blood. Patient does not have a history of bleeding disorder nor she on a blood thinner but daughter reports she does have low platelets. They state the blood is not normal for her and secondary to this she was brought in for evaluation. Patient denies anyblood per rectum and states there is no abdominal pain at this time [facility] Medical History Diabetes Facial droop History of hypertension HTN (hypertension) Thrombocytopenia Home Medications glipizide 2.5 mg tablet, extended release 24 hr 2.5 mg PO DAILY diabetes 06/01/22 [History Last Taken Unknown] metformin 500 mg tablet,extended release 24 hr 1,000 mg PO BID diabetes 06/01/22[History Last Taken Unknown] alendronate 70 mg tablet 70 mg PO QWEEK 07/06/23 [History Last Taken Unknown] atorvastatin 20 mg tablet 20 mg PO DAILY 07/06/23 [History Last Taken Unknown] carvedilol 6.25 mg tablet 6.25 mg PO BID 07/06/23 [History Last Taken Unknown] lisinopril 20 mg tablet 20 mg PO DAILY 07/06/23 [History Last Taken Unknown] Allergy/AdvReac Type Severity Reaction Status Date / Time No Known Allergies Allergy Verified 07/06/23 02:41 Family History Other CVA (cerebral vascular accident) Hypertension Social History Smoking Status: Never smoker ROS ROS ED Constitutional Constitutional ED: Denies chills or fever(s) Eyes Eyes: Denies change in vision ENT ENT ED: Denies sore throat Cardiovascular Cardiovascular: Denies chest pain Respiratory/Chest Respiratory/Chest: Reports cough; Denies dyspnea Gastrointestinal Gastrointestinal: Reports diarrhea, nausea and vomiting; Denies abdominal pain or melena Genitourinary Genitourinary ED: Denies dysuria or hematuria Musculoskeletal Musculoskeletal: Denies myalgias Integumentary Denies rash Neurologic Neurologic: Denies headache(s) Hematologic/Lymphatic Hematologic/Lymphatic: Denies easy bleeding or easy bruising EXAM Physical Exam Const Vital Signs: 07/06/23 02:38 07/06/23 04:20 Temperature 97.2 F L 98 F Temperature Source Temporal Pulse Rate 91 90 Respiratory Rate 18 16 Blood Pressure 154/67 H 116/95 H Blood Pressure Mean 96 102 Pulse Ox 100 99 Oxygen Delivery Method Room Air Positive well nourished, well developed and obese General Appearance ED: well developed; Negative for pallor Nutritional Appearance: obese HEENT Reports moist mucous membranes HEENT Narrative: No tongue or lip swelling no oral lesions no airway edema or compromise No signs of infection noted in the posterior pharynx No dried blood or active bleeding noted Eyes PERRL and EOMs intact bilaterally General Eye ED: Negative for pale conjunctiva or scleral icterus Neck supple Neck Narrative: No crepitance palpated throughout the neck and no pain with external manipulation of the thyroid cartilage Resp normal respiratory effort and clear to auscultation bilaterally Resp Narrative: No nasal flaring retractions tachypnea or accessory muscle use Cardio regular rate and regular rhythm Rate: other Other Details: Heart is regular rate and rhythm without murmurs rubsor gallop Radial and carotid pulses are equal and symmetric GI normal to inspection, nondistended, normoactive bowel sounds, non-tender, non-distended and no masses GI Narrative: Abdomen is soft nontender and nondistended with normal active bowel sounds. No voluntary guarding or rigidity No pulsatile mass or fluid wave No organomegaly noted Auscultation: normoactive bowel sounds Palpation: soft Narrative: No external hemorrhoid or anal fissure noted. Rectal tone is normal and stool is dark brown in color and Hemoccult negative. No internal masses palpated Extremity normal to inspection Extremity Narrative: No asymmetric edema no pitting edema negative Homans' sign bilaterally Neuro oriented x3, CN's II-XII intact bilaterally and no sensory deficits noted Sensorium / Orientation: alert Motor Exam: strength 5/5 throughout Psych mental status grossly normal Skin no rashes or lesions noted, no wounds and skin turgor normal General Skin Exam: Negative for jaundice or pallor MDM MDM MDM Narrative Medical decision making narrative: Patient presented to the ER slightly hypertensive otherwise with stable vitals. Patient and daughter reported that nausea vomiting diarrhea are recurrent problem for the patient and that the only reason they are here is because she had a small amount of blood in the emesis which is new for her. Differential diagnosis is potential for upper GI bleed versus Boerhaave syndrome versus acuteblood loss anemia versus thrombocytopenia. Her abdomen is soft and nonsurgical so I felt no need for a CT scan elected to perform acute abdominal series with 1view chest in order to ensure there is no free air or perforation. Lab work shows stable H&H and platelets are low consistent with history but near baselineof 60. However patient does have elevation to her BUN and creatinine compared to labs from almost 1 year ago indicating acute kidney injury. Secondary to this lab finding bladder scan was performed which revealed no signs of retention. However as patient now has acute kidney injury and it is unsure why as it could be related to medication such as metformin or lisinopril or potential renal mass medicine was contacted to discuss admission. Hospitalist recommends a noncontrast CT of the abdomen and pelvis to check for potential internal anatomy issues such as hydroureteronephrosis or changes to the renal anatomy or renal masses. Therefore this was ordered and patient was kept on IV fluids. She has remained hemodynamically stable but based on the VIKA she will be kept in the hospital for further care. History & Record Review Discussion w/independent historian: Patient and Family Lab Data Attestation: I reviewed the patient's lab results. Labs: Laboratory Results - last 24 hr 07/06/23 02:46 WBC 6.0 RBC 4.34 Hgb 13.1 Hct 39.6 MCV 91.2 MCH 30.2 MCHC 33.1 RDW Std Deviation 49.2 H RDW Coeff of [place] 14.6 Plt Count 59 L MPV 12.4 H Immature Gran % (Auto) 0.500 Neut % (Auto) 65.4 Lymph % (Auto) 19.0 [place] % (Auto) 11.1 H Eos % (Auto) 3.7 Baso % (Auto) 0.3 Absolute Neuts (auto) 3.9 Absolute Lymphs (auto) 1.13 Nucleated RBC % 0 PT 14.4 INR 1.1 APTT 36.7 H Sodium 135 L Potassium 4.8 Chloride 108 H Carbon Dioxide 21.0 Anion Gap 6 BUN 30 H Creatinine 2.88 H Estim Creat Clear Calc 18.78 Est GFR (MDRD) Af Amer 21 L Est GFR (MDRD) Non-Af 17 L BUN/Creatinine Ratio 10.4 Glucose 116 H Calcium 8.4 L Total Bilirubin 1.30 H Direct Bilirubin 0.55 H AST 67 H ALT 52 Alkaline Phosphatase 197 H Total Protein 7.7 Albumin 3.6 Globulin 4.1 Lipase 43 Radiography Diagnostic Testing: Acute abdominal series with 1 view chest as interpreted by the emergency medicine physician reveals a nonspecific nonobstructive bowel gas pattern without free air/perforation. Chest x-ray component reveals no acute infiltratepneumothorax or pleural effusion Management Discussion w/another healthcare provider: Hospitalist Discharge Plan Dx/Rx/DC Orders Clinical Impression: Acute kidney injury, Thrombocytopenia, Nausea vomiting and diarrhea Disposition Disposition: Acute Care Hospital [facility] What to do if you have Problems For any increased pain, shortness of breath, bleeding, nausea or vomiting, chestpain, or any unexpected problems, contact your Primary Care Provider. Call [facility] ([phone]) or report to the closest Emergency Room. Call 911 if necessary. 07/06/23 0502 <Electronically signed by Mayo Mccullough DO> Cosigner Signature (if applicable): CC: Dr. Elder Reddy MD ~ Signed [facility] Work Phone: Evaluation note* Diagnosis Controlled type 2 diabetes mellitus without complication, without long-term current use of insulin (HCC) [facility] Diagnosis Controlled type 2 diabetes mellitus without complication, without long-term current use of insulin (HCC)- Primary Obesity, Class II, BMI 35-39.9 Obesity, unspecified Primary hypertension Unspecified essential hypertension Diarrhea, unspecified type Pure hypercholesterolemia [facility]* Diagnosis Type 2 diabetes mellitus without retinopathy (HCC)- Primary Type II or unspecified type diabetes mellitus without mention of complication, not stated as uncontrolled Combined forms of age-related cataract of both eyes Other and combined forms of senile cataract Presbyopia [facility]* Diagnosis Abnormal liver enzymes Other nonspecific abnormal serum enzyme levels documented in this encounter [facility] note* Diagnosis Elevated TSH- Primary Nonspecific abnormal results of thyroid function study Abnormal liver enzymes Other nonspecific abnormal serum enzyme levels Thrombocytopenia (HCC) Thrombocytopenia, unspecified Controlled type 2 diabetes mellitus without complication, without long-term current use of insulin (HCC) Pure hypercholesterolemia [facility]* Diagnosis Controlled type 2 diabetes mellitus without complication, without long-term current use of insulin (HCC)- Primary documented in this encounter [facility] note* Diagnosis Controlled type 2 diabetes mellitus without complication, without long-term current use of insulin (HCC)- Primary Medication management Encounter for long-term (current) use of other medications documented in this encounter [facility] note* Diagnosis Controlled type 2 diabetes mellitus without complication, without long-term current use of insulin (HCC)- Primary Fatty liver Other chronic nonalcoholic liver disease Primary hypertension Unspecified essential hypertension Obesity, Class II, BMI 35-39.9 Obesity, unspecified documented in this encounter [facility] note* Diagnosis Controlled type 2 diabetes mellitus without complication, without long-term current use of insulin (HCC) documented in this encounter [facility] note* Diagnosis Controlled type 2 diabetes mellitus without complication, without long-term current use of insulin (HCC) Pure hypercholesterolemia [facility]* Diagnosis Encounter for screening mammogram for breast cancer documented in this encounter [facility] note* Diagnosis Abnormal TSH- Primary Other abnormal clinical finding documented in this encounter [facility] note* Diagnosis Onset Date Resolution Status Acute CVA (cerebrovascular accident) acute Headache acute History of hypertension [facility] Work Phone: Evaluation note* Diagnosis Onset Date Resolution Status Facial droop acute Headache acute History of hypertension acut e Thrombocytopenia acute [facility] Work Phone: Evaluation note* Diagnosis Dover's palsy- Primary Hyperglycemia Other abnormal glucose [facility]* Diagnosis Dover's palsy- Primary Right ear pain Otalgia, unspecified [facility] Diagnosis Thrombocytopenia (HCC)- Primary Thrombocytopenia, unspecified 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 Type 2 diabetes mellitus without retinopathy (HCC) Type II or unspecified type diabetes mellitus without mention of complication, not stated as uncontrolled Combined forms of age-related cataract of both eyes Other and combined forms of senile cataract Presbyopia [facility]* Diagnosis Thrombocytopenia (HCC)- Primary Thrombocytopenia, unspecified [facility] Diagnosis Abnormal liver enzymes- Primary Other nonspecific abnormal serum enzyme levels Thrombocytopenia (HCC) Thrombocytopenia, unspecified documented in this encounter [facility] note* Diagnosis Thrombocytopenia (HCC)- Primary Thrombocytopenia, unspecified Thrombocytopenia (HCC) Thrombocytopenia, unspecified [facility] noteNo assessment information [facility]* Diagnosis Abnormal liver enzymes- Primary Other nonspecific abnormal serum enzyme levels Thrombocytopenia (HCC) Thrombocytopenia, unspecified [facility] Diagnosis Dover's palsy- Primary Type 2 diabetes mellitus without retinopathy (HCC) Type II or unspecified type diabetes mellitus without mention of complication, not stated as uncontrolled Combined forms of age-related cataract of both eyes Other and combined forms of senile cataract Regular astigmatism of both eyes Regular astigmatism Presbyopia [facility] Diagnosis Right-sided tinnitus- Primary Unspecified tinnitus Facial paralysis Dover's palsy documented in this encounter [facility] note* Diagnosis Primary hypertension- Primary Unspecified essential hypertension Thrombocytopenia (HCC) Thrombocytopenia, unspecified Abnormal liver enzymes Other nonspecific abnormal serum enzyme levels Pure hypercholesterolemia Controlled type 2 diabetes mellitus without complication, without long-term current use of insulin (HCC) Screening for osteoporosis Special screening for osteoporosis Asymptomatic menopause documented in this encounter [facility] note* Diagnosis Conductive hearing loss of right ear with unrestricted hearing of left ear- Primary Pulsatile tinnitus, right ear [facility]* Diagnosis Screening for osteoporosis Special screening for osteoporosis Asymptomatic menopause documented [facility]* Diagnosis Thrombocytopenia (HCC) Thrombocytopenia, unspecified Abnormal liver enzymes Other nonspecific abnormal serum enzyme levels [facility]* Diagnosis Eye muscle twitches- Primary Abnormal involuntary movements documented in this encounter [facility] note* Diagnosis Flu-like symptoms- Primary Other general symptoms Controlled type 2 diabetes mellitus without complication, without long-term current use of insulin (HCC) Primary hypertension Unspecified essential hypertension Pure hypercholesterolemia Thrombocytopenia (HCC) Thrombocytopenia, unspecified [facility]* Diagnosis Cough present for greater than 3 weeks- Primary Viral bronchitis Acute bronchitis documented in this encounter [facility] note* Diagnosis Cirrhosis of liver without ascites, unspecified hepatic cirrhosis type (HCC)- Primary documented in this encounter [facility] note* Diagnosis Onset Date Resolution Status Acute kidney injury acute Acute renal failure acute Adverse drug reaction acute Fatty liver disease, nonalcoholic acute Hyperbilirubinemia acute Nausea vomiting and diarrhea acute Thrombocytopenia acute [facility] Work Phone: Evaluation note* Diagnosis Shortness of breath- Primary Generalized edema Edema VIKA (acute kidney injury) (HCC) Acute kidney failure, unspecified Esophageal varices without bleeding, unspecified esophageal varices type (HCC) Portal hypertensive gastropathy (HCC) (HCC) Other specified disorder of stomach and duodenum Cirrhosis of liver without ascites, unspecified hepatic cirrhosis type (HCC) Primary hypertension Unspecified essential hypertension Controlled type 2 diabetes mellitus without complication, without long-term current use of insulin (HCC) Shortness of breath documented in this encounter [facility] note* Diagnosis Onset Date Resolution Status Fatty liver disease, nonalcoholic acute Thrombocytopenia acute [facility] Work Phone: Evaluation note* Diagnosis Injury of right wrist, initial encounter- Primary Pain of right hand Pain in limb Injury of right wrist, initial encounter Pain of right hand Pain in limb [facility]* Diagnosis Injury of right wrist, initial encounter Pain of right hand Pain in limb documented in this encounter [facility] note* Diagnosis Shortness of breath documented in this encounter [facility] note* Diagnosis Cough present for greater than 3 weeks documented in this encounter [facility] note* Diagnosis Acute cough documented in this encounter [facility] for referral (narrative)* Diagnostic Procedure Only (Routine) - Pending Review Specialty Diagnoses / Procedures Referred By Maricarmenac t Referred To Contact US IMAGING Diagnoses Abnormal liver enzymes Procedures US ABD RT UPPER QUADRANT US ABDOMINAL REAL TIME W/IMAGE LIMITED Elder Reddy MD [address] [place] [address] [facility] Referral ID Status Reason Start Date Expiration Date Visits Requested Visits Authorized [id number] Pending Review Auto-Generat ed Referral 08/05/2021 09/04/2022 1 1 [facility] for referral (narrative)* Diagnostic Procedure Only (Routine) - Pending Review Specialty Diagnoses / Procedures Referred By Paul t Referred To Contact US IMAGING Diagnoses Abnormal liver enzymes Procedures US ABD RT UPPER QUADRANT US ABDOMINAL REAL TIME W/IMAGE LIMITED Elder Reddy MD [address] [place] [address] [facility] Referral ID Status Reason Start Date Expiration Date Visits Requested Visits Authorized [id number] Pending Review Auto-Generat ed Referral 08/05/2021 09/04/2022 1 1 * Consult, Test, Treat (Routine) - Pending Review Specialty Diagnoses / Procedures Referred By Contblas t Referred To Contact Diagnoses Controlled type 2 diabetes mellitus without complication, without long-term current use of insulin (HCC) Procedures CONSULT TO DIABETES EDUCATION OFFICE/OUTPATIENT NEW HIGH MDM 60-74 MINUTES Elder Reddy MD [address] [place] [address] [facility] [address] [place] [address] Referral ID Status Reason Start Date Expiration Date Visits Requested Visits Authorized [id number] Pending Review PCP Requested Referral 08/05/2021 08/05/2022 1 1 [facility] for referral (narrative)* Diagnostic Procedure Only (Routine) - Pending Review Specialty Diagnoses / Procedures Referred By Paul t Referred To Contact BR IMAGING Diagnoses Encounter for screening mammogram for breast cancer Procedures LULA SCREENING SCREENING MAMMOGRAPHY BI 2-VIEW BREAST INC CAD Elder Reddy MD [address] [place] [address] [facility] [address] [facility] [place] [place] [address] Referral ID Status Reason Start Date Expiration Date Visits Requested Visits Authorized [id number] Pending Review Auto-Generat ed Referral 04/08/2022 05/08/2023 1 1 [facility] for referral (narrative)* Diagnostic Procedure Only (Routine) - Pending Review Specialty Diagnoses / Procedures Referred By Paul t Referred To Contact US IMAGING Diagnoses Thrombocytopenia (HCC) Abnormal liver enzymes Procedures US ABD RIGHT UPPER QUADRANT US ABDOMINAL REAL TIME W/IMAGE LIMITED Kavon Lopes DO [address] [place] [address] [facility] Imaging Referral ID Status Reason Start Date Expiration Date Visits Requested Visits Authorized [id number] Pending Review Auto-Generat ed Referral 09/06/2022 10/06/2023 1 1 T [facility] for referral (narrative)* Diagnostic Procedure Only (Routine) - Closed Specialty Diagnoses / Procedures Referred By Paul langford Referred To Contact US IMAGING Diagnoses Thrombocytopenia (HCC) Abnormal liver enzymes Procedures US ABD RIGHT UPPER QUADRANT US ABDOMINAL REAL TIME W/IMAGE LIMITED Kavon Lopes DO [address] [place] [address] [place] [address] Referral ID Status Reason Start Date Expiration Date V isits Requested Visits Authorized [id number] Closed Auto-Generate d Referral 09/09/2022 03/14/2023 1 1 [facility] for referral (narrative)* Diagnostic Procedure Only (Routine) - Pending Review Specialty Diagnoses / Procedures Referred By Contac t Referred To Contact US IMAGING Diagnoses Cirrhosis of liver without ascites, unspecified hepatic cirrhosis type (HCC) Procedures US ABD SPLEEN US ABDOMINAL REAL TIME W/IMAGE LIMITED Cecilia Powers MD [address] [phone] [place] [address] Referral ID Status Reason Start Date Expiration Date Visits Requested Visits Authorized [id number] Pending Review Auto-Generat ed Referral 06/29/2023 07/28/2024 1 1 * Diagnostic Procedure Only (Routine) - Pending Review Specialty Diagnoses / Procedures Referred By Contac t Referred To Contact US IMAGING Diagnoses Cirrhosis of liver without ascites, unspecified hepatic cirrhosis type (HCC) Procedures US ABD RIGHT UPPER QUADRANT US ABDOMINAL REAL TIME W/IMAGE LIMITED Cecilia Powers MD [address] [phone] [facility] Referral ID Status Reason Start Date Expiration Date Visits Requested Visits Authorized [id number] Pending Review Auto-Generat ed Referral 07/28/2024 1 1 [facility] for referral (narrative)* Diagnostic Procedure Only (Urgent) - Closed Specialty Diagnoses / Procedures Referred By Contac t Referred To Contact XR IMAGING Diagnoses Injury of right wrist, initial encounter Pain of right hand Procedures XR WRIST INJURY 4V PA/LAT/OBL/SCAPH RIGHT RADEX WRIST COMPLETE MINIMUM 3 VIEWS Bruce Yu, NAIL SPECIALIST.ACETONE BUTTON PASTER [address] [place] [address] [place] [address] Referral ID Status Reason Start Date Expiration Date V isits Requested Visits Authorized [id number] Closed Auto-Generate d Referral 09/08/2023 10/07/2024 1 1 * Diagnostic Procedure Only (Urgent) - Closed Specialty Diagnoses / Procedures Referred By Contac t Referred To Contact XR IMAGING Diagnoses Injury of right wrist, initial encounter Pain of right hand Procedures XR HAND GENERAL 3V PA/LAT/OBL RIGHT RADEX HAND MINIMUM 3 VIEWS Bruce Yu APRN.CNP [address] [place] [address] [place] [address] Referral ID Status Reason Start Date Expiration Date V isits Requested Visits Authorized [id number] Closed Auto-Generate d Referral 09/08/2023 10/07/2024 1 1 [facility]No reason for referral information availableWBl[facility]: Reason for visit Narrative* Diagnostic Procedure Only (Urgent) - Closed Specialty Diagnoses / Procedures Referred By Contac t Referred To Contact XR IMAGING Diagnoses Injury of right wrist, initial encounter Pain of right hand Procedures XR WRIST INJURY 4V PA/LAT/OBL/SCAPH RIGHT RADEX WRIST COMPLETE MINIMUM 3 VIEWS Bruce Yu APRN.AC[employer] BUTTON PASTER [address] [place] [address] [place] [address] Referral ID Status Reason Start Date Expiration Date V isits Requested Visits Authorized [id number] Closed Auto-Generate d Referral 09/08/2023 10/07/2024 1 1 [facility] Summary Purpose Family History No Family History Records Found Relationship Condition Age at Onset Recorded Date/T jese Not Specified Hypertension Unknown Cerebrovascular accident (CVA) Unknown Advance Directives No Advanced Directives Records Found Advance Directive Response Recorded Date/ Time Living Will No June 01, 2022 6:50pm Power of Belt Knife Feeder No June 01 6:50pm Advance Directive Response Recorded Date/ Time Living Will No June 02, 2022 1:52am Power of Belt Knife Feeder No June 02 1:52am Advance Directive Response Recorded Date/ Time Living Will No July 06, 2023 2:40am Power of Belt Knife Feeder No July 05 2:40am Advance Directive Response Recorded Date/ Time Living Will No July 06, 2023 5:59am Power of Belt Knife Feeder No July 05 5:59am Advance Directive Response Recorded Date/ Time Living Will No August 27, 2023 1:25am Do you have a Healthcare Power of Belt Knife Feeder? No August 27, 2023 1:25am Reason for Referral Specialty Diagnoses / Procedures Referred By Contac t Referred To Contact Ophthalmology Diagnoses Controlled type 2 diabetes mellitus without complication, without long-term current use of insulin (HCC) Procedures CONSULT TO OPHTHALMOLOGY OFFICE/OUTPATIENT [facility] MDM 60-74 MINUTES Elder Reddy MD [address] [place] [address] Referral ID Status Reason Start Date Expiration Date Visits Requested Visits Authorized [id number] Pending Review PCP Requested Referral 07/23/2021 07/23/2022 1 1 Specialty Diagnoses / Procedures Referred By Contac t Referred To Contact Ophthalmology Diagnoses Dover's palsy Procedures CONSULT TO OPHTHALMOLOGY OFFICE/OUTPATIENT [facility] 60-74 MINUTES Older, Ana, NAIL SPECIALIST.ACETONE BUTTON PASTER [address] [place] [address] Referral ID Status Reason Start Date Expiration Date Visits Requested Visits Authorized [id number] Pending Review PCP Requested Referral 06/09/2022 06/09/2023 1 1 Specialty Diagnoses / Procedures Referred By Contac t Referred To Contact Neurology Diagnoses Dover's palsy Procedures CONSULT TO NEUROLOGY OFFICE/OUTPATIENT [facility] MDM 60-74 MINUTES Older, Ana, NAIL SPECIALIST.ACETONE BUTTON PASTER [address] [place] [address] Referral ID Status Reason Start Date Expiration Date Visits Requested Visits Authorized [id number] Pending Review PCP Requested Referral 06/09/2022 06/09/2023 1 1 Specialty Diagnoses / Procedures Referred By Contac t Referred To Contact [facility] Diagnoses Dover's palsy Procedures CONSULT TO SPEECH THERAPY OFFICE/OUTPATIENT [facility] MDM 60-74 MINUTES Memo Treviño PA-C [address] [address] [facility] [place] [address] [place] [address] Referral ID Status Reason Start Date Expiration Date Visits Requested Visits Authorized [id number] Pending Review Auto-Generat ed Referral 06/16/2022 06/16/2023 1 1 Specialty Diagnoses / Procedures Referred By Contac t Referred To Contact [facility] Diagnoses Dover's palsy Procedures CONSULT TO PHYSICAL THERAPY PHYSICAL THERAPY EVALUATION HIGH COMPLEX 45 MINS Memo Treviño PA-C [address] [phone] [facility] [place] [address] [place] [address] Referral ID Status Reason Start Date Expiration Date Visits Requested Visits Authorized [id number] Pending Review Auto-Generat ed Referral 06/16/2022 06/16/2023 1 1 Specialty Diagnoses / Procedures Referred By Contac t Referred To Contact Ent - Otolaryngology Diagnoses Right ear pain Procedures CONSULT TO ENT OFFICE/OUTPATIENT [facility] 60-74 MINUTES Memo Treviño PA-C [address] [place], [place] [id number] Referral ID Status Reason Start Date Expiration Date Visits Requested Visits Authorized [id number] Pending Review PCP Requested Referral 06/16/2022 06/16/2023 1 1 Specialty Diagnoses / Procedures Referred By Contac t Referred To Contact Hematology Diagnoses Thrombocytopenia (HCC) Procedures CONSULT TO HEMATOLOGY OFFICE/OUTPATIENT [facility] 60-74 MINUTES Elder Reddy MD [address] [place] [address] Referral ID Status Reason Start Date Expiration Date Visits Requested Visits Authorized [id number] Pending Review PCP Requested Referral 06/23/2022 06/23/2023 1 1 Specialty Diagnoses / Procedures Referred By Contac t Referred To Contact Diagnoses Abnormal liver enzymes Thrombocytopenia (HCC) Procedures CONSULT TO HEPATOLOGY OFFICE/OUTPATIENT [facility] 60-74 MINUTES Elder Reddy MD [address] [place] [address] Referral ID Status Reason Start Date Expiration Date Visits Requested Visits Authorized [id number] Pending Review PCP Requested Referral 07/20/2022 07/20/2023 1 1 Specialty Diagnoses / Procedures Referred By Contac t Referred To Contact Diagnoses Right-sided tinnitus Procedures HEARING TEST/AUDIOGRAM COMPRE AUDIOMETRY THRESHOLD EVAL SP RECOGNIJ Brittani Santana MD [address] [place] [address] [facility] [address] [place] [address] Referral ID Status Reason Start Date Expiration Date Visits Requested Visits Authorized [id number] Authorized Auto-Generat ed Referral 09/30/2022 12/29/2022 1 1 Specialty Diagnoses / Procedures Referred By Contac t Referred To Contact Procedures HEARING TEST/AUDIOGRAM COMPRE AUDIOMETRY THRESHOLD EVAL SP RECOGNIJ Arie Gaytan, AUD [address] [place] [address] [facility] [address] [id number] Referral ID Status Reason Start Date Expiration Date Visits Requested Visits Authorized [id number] Pending Review Auto-Generat ed Referral 11/30/2022 12/01/2023 1 1 Specialty Diagnoses / Procedures Referred By Contac t Referred To Contact Orthopedics Diagnoses Injury of right wrist, initial encounter Procedures CONSULT TO ORTHOPAEDICS OFFICE/OUTPATIENT [facility] 60 MINUTES Bruce Yu APRN.[employer] BUTTON PASTER [address] [place] [address] Referral ID Status Reason Start Date Expiration Date Visits Requested Visits Authorized [id number] Authorized PCP Requested Referral 09/08/2023 09/07/2024 1 1 Specialty Diagnoses / Procedures Referred By Contac t Referred To Contact XR IMAGING Diagnoses Injury of right wrist, initial encounter Pain of right hand Procedures XR WRIST INJURY 4V PA/LAT/OBL/SCAPH RIGHT RADEX WRIST COMPLETE MINIMUM 3 VIEWS Bruce Yu, EFREN.ACETONE BUTTON PASTER [address] [place] [address] [place] [address] Referral ID Status Reason Start Date Expiration Date V isits Requested Visits Authorized [id number] Closed Auto-Generate d Referral 09/08/2023 10/07/2024 1 1 Specialty Diagnoses / Procedures Referred By Paul langford Referred To Contact XR IMAGING Diagnoses Injury of right wrist, initial encounter Pain of right hand Procedures XR HAND GENERAL 3V PA/LAT/OBL RIGHT RADEX HAND MINIMUM 3 VIEWS Bruce Yu APRN.ACETONE BUTTON PASTER [address] [place] [address] [place] [address] Referral ID Status Reason Start Date Expiration Date V isits Requested Visits Authorized [id number] Closed Auto-Generate d Referral 09/08/2023 10/07/2024 1 1 Medications Administered Section Active Administered Medications - up to 3 most recent administrations Medication Order MAR Action Action Date Dose Rate Site fluorescein-benoxinate 0.25-0.4 % 1 Drop (FLURESS) 1 Drop, BOTH EYES, DIRECTED, Starting on Wed07/28/21 at 1100, Until Wed07/28/21 at 2259, Administer for applanation tonometry. In the event of a Fluress shortage, administer [place]-Fluor 1 drop into both eyes as directed for applanation tonometry Given 07/28/2021 11:00 AM EDT 1 Drop PHENYLephrine 2.5 % 1 Drop (AK-DILATE, EVENS-SYNEPHRINE) 1 Drop, BOTH EYES, DIRECTED, Starting on Wed07/28/21 at 1100, Until Wed07/28/21 at 2259, Administer for dilation PROTECT FROM LIGHT Given 07/28/2021 11:00 AM EDT 1 Drop tropicamide 1 % 1 Drop (MYDRIACYL) 1 Drop, BOTH EYES, DIRECTED, Starting on Wed07/28/21 at 1100, Until Wed07/28/21 at 2259, Administer for dilation Given 07/28/2021 11:00 AM EDT 1 Drop Inactive Administered Medications - up to 3 most recent administrations Medication Order MAR Action Action Date Dose Rate Site PHENYLephrine 2.5 % 1 Drop (AK-DILATE, EVENS-SYNEPHRINE) 1 Drop, BOTH EYES, DIRECTED, Starting on Wed06/23/22 at 1030, Until Wed06/23/22 at 2229, Administer for dilation PROTECT FROM LIGHT Given 06/23/2022 10:30 AM EDT 1 Drop proparacaine 0.5 % 1 Drop (ALCAINE) 1 Drop, BOTH EYES, DIRECTED, Starting on Wed06/23/22 at 1030, Until Wed06/23/22 at 2229, Administer for pneumo tonometry, tonopen tonometry, or pachymetry. In the event of a proparacaine shortage, administer tetracaine 0.5% ophthalmic drops 1 drop in the left eye as directed for pneumo tonometry, tonopen tonometry, or pachymetry Given 06/23/2022 10:30 AM EDT 1 Drop tropicamide 1 % 1 Drop (MYDRIACYL) 1 Drop, BOTH EYES, DIRECTED, Starting on Wed06/23/22 at 1030, Until Wed06/23/22 at 2229, Administer for dilation Given 06/23/2022 10:30 AM EDT 1 Drop Chief Complaint and Reason for Visit Chief Complaint STROKELIKE SYMPTOMS Reason for Visit Acute CVA (cerebrova scular accident) Headache History of hypertension Chief Complaint STROKELIKE SYMPTOMS STROKELIKE SYMPTOMS STROKELIKE SYMPTOMS Reason for Visit Facial droop Headache History of hypertension Thrombocytopenia Chief Complaint STROKELIKE SYMPTOMS STROKELIKE SYMPTOMS STROKELIKE SYMPTOMS STROKELIKE SYMPTOMS BELLS PALSY RX HERE Chief Complaint ACUTE RENAL FAILURE WITH NAUSEA VOMITING AND Reason for Visit Acute kidney injury Acute renal failure Adverse drug reaction Fatty liver disease, nonalcoholic Hyperbilirubinemia Nausea vomiting and diarrhea Thrombocytopenia Chief Complaint ACUTE RENAL FAILURE WITH NAUSEA VOMITING AND ACUTE RENAL FAILURE WITH NAUSEA VOMITING AND ACUTE RENAL FAILURE WITH NAUSEA VOMITING AND ACUTE RENAL FAILURE WITH NAUSEA VOMITING AND ACUTE RENAL FAILURE WITH NAUSEA VOMITING AND Reason for Visit Acute kidney injury Acute renal failure Adverse drug reaction Fatty liver disease, nonalcoholic Hyperbilirubinemia Nausea vomiting and diarrhea Thrombocytopenia Chief Complaint ACUTE RENAL FAILURE WITH NAUSEA VOMITING AND ACUTE RENAL FAILURE WITH NAUSEA VOMITING AND ACUTE RENAL FAILURE WITH NAUSEA VOMITING AND ACUTE RENAL FAILURE WITH NAUSEA VOMITING AND ACUTE RENAL FAILURE WITH NAUSEA VOMITING AND ACUTE RENAL FAILURE WITH NAUSEA VOMITING AND Reason for Visit Fatty liver disease, nonalcoholic Thrombocytopenia Chief Complaint Admit Date BACK PAIN RADIATING DOWN RIGHT LEG Decem 2023 8:30am 6 M FU May 29, 2024 10: 02am Reason for Visit Admit Date Cirrhosis May 29, 2024 10: 02am Fatty liver disease, nonalcoholic May 29, 2024 10:02am Thrombocytopenia May 29, 2024 10: 02am Chief Complaint Admit Date BACK PAIN RADIATING DOWN RIGHT LEG Decem 2023 8:30am 6 M FU May 29, 2024 10: 02am CIRRHOSIS June 07, 2024 8:5 4am Chief Complaint Admit Date 6 M FU May 29, 2024 10: 02am CIRRHOSIS June 07, 2024 8:5 4am ABD PAIN AND DISTENSION July 04, 2024 10:53am ADD SPLEEN, CIRROHSIS July 06, 2024 7 :17am Reason for Visit Admit Date Cirrhosis May 29, 2024 10: 02am Fatty liver disease, nonalcoholic May 29, 2024 10:02am Thrombocytopenia May 29, 2024 10: 02am Abdominal distension July 04, 2024 10 :53am Abdominal pain July 04, 2024 10: 53am Cirrhosis July 04, 2024 10: 53am Chief Complaint Admit Date 6 M FU May 29, 2024 10: 02am CIRRHOSIS June 07, 2024 8:5 4am ABD PAIN AND DISTENSION July 04, 2024 10:53am ADD SPLEEN, CIRROHSIS July 06, 2024 7 :17am EARLY SATIETY August 01, 2024 7:42a m Chief Complaint Admit Date 6 M FU May 29, 2024 10: 02am CIRRHOSIS June 07, 2024 8:5 4am ABD PAIN AND DISTENSION July 04, 2024 10:53am ADD SPLEEN, CIRROHSIS July 06, 2024 7 :17am EARLY SATIETY August 01, 2024 7:42a m 1 M FU August 10, 2024 8:59a m Chief Complaint Admit Date 6 M FU May 29, 2024 10: 02am CIRRHOSIS June 07, 2024 8:5 4am ABD PAIN AND DISTENSION July 04, 2024 10:53am ADD SPLEEN, CIRROHSIS July 06, 2024 7 :17am EARLY SATIETY August 01, 2024 7:42a m 1 M FU August 10, 2024 8:59a m INT LABS August 10, 2024 9:55a m Reason for Visit Admit Date Cirrhosis May 29, 2024 10: 02am Fatty liver disease, nonalcoholic May 29, 2024 10:02am Thrombocytopenia May 29, 2024 10: 02am Abdominal distension July 04, 2024 10 :53am Abdominal pain July 04, 2024 10: 53am Cirrhosis July 04, 2024 10: 53am Cirrhosis August 10, 2024 8:59a m Pancytopenia August 10, 2024 8:59a m Screening for colon cancer August 10 8:59am Additional Source Comments INFORMATION SOURCE (unrecogn ized section and content) DATE CREATED AUTHOR 10/19/2018 [facility] DATE CREATED AUTHOR AUTHOR'S ORGANIZ ATION 02/05/2020 [facility] DATE CREATED AUTHOR AUTHOR'S ORGANIZ ATION 02/16/2020 [facility] DATE CREATED AUTHOR AUTHOR'S ORGANIZ ATION 2022 [facility] DATE CREATED AUTHOR AUTHOR'S ORGANIZ ATION 09/09/2023 [facility] DATE CREATED AUTHOR AUTHOR'S ORGANIZ ATION 10/17/2024 [facility] Source Comments (unrecognize d section and content) In the event this informatio n is protected by the Federal Confidentiality of Alcohol and Drug Abuse Patient Records regulations: The Federal rules restrict any use of the information to criminally investigate or prosecute any alcohol or drug abuse patient.[facility] the event this information is protected by the Federal Confidentiality of Alcohol and Drug Abuse Patient Records regulations: The Federal rules restrict any use of the information to criminally investigate or prosecute any alcohol or drug abuse patient.[facility] HospitalIn the event this information is protected by the Federal Confidentiality of Alcohol and Drug Abuse Patient Records regulations: The Federal rules restrict any use of the information to criminally investigate or prosecute any alcohol or drug abuse patient.[facility] HospitalIn the event this information is protected by the Federal Confidentiality of Alcohol and Drug Abuse Patient Records regulations: The Federal rules restrict any use of the information to criminally investigate or prosecute any alcohol or drug abuse patient.[facility] HospitalIn the event this information is protected by the Federal Confidentiality of Alcohol and Drug Abuse Patient Records regulations: The Federal rules restrict any use of the information to criminally investigate or prosecute any alcohol or drug abuse patient.[facility] HospitalIn the event this information is protected by the Federal Confidentiality of Alcohol and Drug Abuse Patient Records regulations: The Federal rules restrict any use of the information to criminally investigate or prosecute any alcohol or drug abuse patient.[facility] HospitalIn the event this information is protected by the Federal Confidentiality of Alcohol and Drug Abuse Patient Records regulations: The Federal rules restrict any use of the information to criminally investigate or prosecute any alcohol or drug abuse patient.[facility] HospitalIn the event this information is protected by the Federal Confidentiality of Alcohol and Drug Abuse Patient Records regulations: The Federal rules restrict any use of the information to criminally investigate or prosecute any alcohol or drug abuse patient.[facility] HospitalIn the event this information is protected by the Federal Confidentiality of Alcohol and Drug Abuse Patient Records regulations: The Federal rules restrict any use of the information to criminally investigate or prosecute any alcohol or drug abuse patient.[facility] HospitalIn the event this information is protected by the Federal Confidentiality of Alcohol and Drug Abuse Patient Records regulations: The Federal rules restrict any use of the information to criminally investigate or prosecute any alcohol or drug abuse patient.[facility] HospitalIn the event this information is protected by the Federal Confidentiality of Alcohol and Drug Abuse Patient Records regulations: The Federal rules restrict any use of the information to criminally investigate or prosecute any alcohol or drug abuse patient.[facility] HospitalIn the event this information is protected by the Federal Confidentiality of Alcohol and Drug Abuse Patient Records regulations: The Federal rules restrict any use of the information to criminally investigate or prosecute any alcohol or drug abuse patient.[facility] HospitalIn the event this information is protected by the Federal Confidentiality of Alcohol and Drug Abuse Patient Records regulations: The Federal rules restrict any use of the information to criminally investigate or prosecute any alcohol or drug abuse patient.[facility] HospitalIn the event this information is protected by the Federal Confidentiality of Alcohol and Drug Abuse Patient Records regulations: The Federal rules restrict any use of the information to criminally investigate or prosecute any alcohol or drug abuse patient.[facility] HospitalIn the event this information is protected by the Federal Confidentiality of Alcohol and Drug Abuse Patient Records regulations: The Federal rules restrict any use of the information to criminally investigate or prosecute any alcohol or drug abuse patient.[facility] HospitalIn the event this information is protected by the Federal Confidentiality of Alcohol and Drug Abuse Patient Records regulations: The Federal rules restrict any use of the information to criminally investigate or prosecute any alcohol or drug abuse patient.[facility] HospitalIn the event this information is protected by the Federal Confidentiality of Alcohol and Drug Abuse Patient Records regulations: The Federal rules restrict any use of the information to criminally investigate or prosecute any alcohol or drug abuse patient.[facility] HospitalIn the event this information is protected by the Federal Confidentiality of Alcohol and Drug Abuse Patient Records regulations: The Federal rules restrict any use of the information to criminally investigate or prosecute any alcohol or drug abuse patient.[facility] HospitalIn the event this information is protected by the Federal Confidentiality of Alcohol and Drug Abuse Patient Records regulations: The Federal rules restrict any use of the information to criminally investigate or prosecute any alcohol or drug abuse patient.[facility] HospitalIn the event this information is protected by the Federal Confidentiality of Alcohol and Drug Abuse Patient Records regulations: The Federal rules restrict any use of the information to criminally investigate or prosecute any alcohol or drug abuse patient.[facility] HospitalIn the event this information is protected by the Federal Confidentiality of Alcohol and Drug Abuse Patient Records regulations: The Federal rules restrict any use of the information to criminally investigate or prosecute any alcohol or drug abuse patient.[facility] HospitalIn the event this information is protected by the Federal Confidentiality of Alcohol and Drug Abuse Patient Records regulations: The Federal rules restrict any use of the information to criminally investigate or prosecute any alcohol or drug abuse patient.[facility] HospitalIn the event this information is protected by the Federal Confidentiality of Alcohol and Drug Abuse Patient Records regulations: The Federal rules restrict any use of the information to criminally investigate or prosecute any alcohol or drug abuse patient.[facility] HospitalIn the event this information is protected by the Federal Confidentiality of Alcohol and Drug Abuse Patient Records regulations: The Federal rules restrict any use of the information to criminally investigate or prosecute any alcohol or drug abuse patient.[facility] HospitalIn the event this information is protected by the Federal Confidentiality of Alcohol and Drug Abuse Patient Records regulations: The Federal rules restrict any use of the information to criminally investigate or prosecute any alcohol or drug abuse patient.[facility] HospitalIn the event this information is protected by the Federal Confidentiality of Alcohol and Drug Abuse Patient Records regulations: The Federal rules restrict any use of the information to criminally investigate or prosecute any alcohol or drug abuse patient.[facility] HospitalIn the event this information is protected by the Federal Confidentiality of Alcohol and Drug Abuse Patient Records regulations: The Federal rules restrict any use of the information to criminally investigate or prosecute any alcohol or drug abuse patient.[facility] HospitalIn the event this information is protected by the Federal Confidentiality of Alcohol and Drug Abuse Patient Records regulations: The Federal rules restrict any use of the information to criminally investigate or prosecute any alcohol or drug abuse patient.[facility] HospitalIn the event this information is protected by the Federal Confidentiality of Alcohol and Drug Abuse Patient Records regulations: The Federal rules restrict any use of the information to criminally investigate or prosecute any alcohol or drug abuse patient.[facility] HospitalIn the event this information is protected by the Federal Confidentiality of Alcohol and Drug Abuse Patient Records regulations: The Federal rules restrict any use of the information to criminally investigate or prosecute any alcohol or drug abuse patient.[facility] HospitalIn the event this information is protected by the Federal Confidentiality of Alcohol and Drug Abuse Patient Records regulations: The Federal rules restrict any use of the information to criminally investigate or prosecute any alcohol or drug abuse patient.[facility] HospitalIn the event this information is protected by the Federal Confidentiality of Alcohol and Drug Abuse Patient Records regulations: The Federal rules restrict any use of the information to criminally investigate or prosecute any alcohol or drug abuse patient.[facility] HospitalIn the event this information is protected by the Federal Confidentiality of Alcohol and Drug Abuse Patient Records regulations: The Federal rules restrict any use of the information to criminally investigate or prosecute any alcohol or drug abuse patient.[facility] HospitalIn the event this information is protected by the Federal Confidentiality of Alcohol and Drug Abuse Patient Records regulations: The Federal rules restrict any use of the information to criminally investigate or prosecute any alcohol or drug abuse patient.[facility] HospitalIn the event this information is protected by the Federal Confidentiality of Alcohol and Drug Abuse Patient Records regulations: The Federal rules restrict any use of the information to criminally investigate or prosecute any alcohol or drug abuse patient.[facility] HospitalIn the event this information is protected by the Federal Confidentiality of Alcohol and Drug Abuse Patient Records regulations: The Federal rules restrict any use of the information to criminally investigate or prosecute any alcohol or drug abuse patient.[facility] HospitalIn the event this information is protected by the Federal Confidentiality of Alcohol and Drug Abuse Patient Records regulations: The Federal rules restrict any use of the information to criminally investigate or prosecute any alcohol or drug abuse patient.[facility] HospitalIn the event this information is protected by the Federal Confidentiality of Alcohol and Drug Abuse Patient Records regulations: The Federal rules restrict any use of the information to criminally investigate or prosecute any alcohol or drug abuse patient.[facility] HospitalIn the event this information is protected by the Federal Confidentiality of Alcohol and Drug Abuse Patient Records regulations: The Federal rules restrict any use of the information to criminally investigate or prosecute any alcohol or drug abuse patient.[facility] HospitalIn the event this information is protected by the Federal Confidentiality of Alcohol and Drug Abuse Patient Records regulations: The Federal rules restrict any use of the information to criminally investigate or prosecute any alcohol or drug abuse patient.[facility] HospitalIn the event this information is protected by the Federal Confidentiality of Alcohol and Drug Abuse Patient Records regulations: The Federal rules restrict any use of the information to criminally investigate or prosecute any alcohol or drug abuse patient.[facility] HospitalIn the event this information is protected by the Federal Confidentiality of Alcohol and Drug Abuse Patient Records regulations: The Federal rules restrict any use of the information to criminally investigate or prosecute any alcohol or drug abuse patient.[facility] HospitalIn the event this information is protected by the Federal Confidentiality of Alcohol and Drug Abuse Patient Records regulations: The Federal rules restrict any use of the information to criminally investigate or prosecute any alcohol or drug abuse patient.[facility] HospitalIn the event this information is protected by the Federal Confidentiality of Alcohol and Drug Abuse Patient Records regulations: The Federal rules restrict any use of the information to criminally investigate or prosecute any alcohol or drug abuse patient.[facility] HospitalIn the event this information is protected by the Federal Confidentiality of Alcohol and Drug Abuse Patient Records regulations: The Federal rules restrict any use of the information to criminally investigate or prosecute any alcohol or drug abuse patient.[facility] HospitalIn the event this information is protected by the Federal Confidentiality of Alcohol and Drug Abuse Patient Records regulations: The Federal rules restrict any use of the information to criminally investigate or prosecute any alcohol or drug abuse patient.[facility] HospitalIn the event this information is protected by the Federal Confidentiality of Alcohol and Drug Abuse Patient Records regulations: The Federal rules restrict any use of the information to criminally investigate or prosecute any alcohol or drug abuse patient.[facility] HospitalIn the event this information is protected by the Federal Confidentiality of Alcohol and Drug Abuse Patient Records regulations: The Federal rules restrict any use of the information to criminally investigate or prosecute any alcohol or drug abuse patient.[facility] HospitalIn the event this information is protected by the Federal Confidentiality of Alcohol and Drug Abuse Patient Records regulations: The Federal rules restrict any use of the information to criminally investigate or prosecute any alcohol or drug abuse patient.[facility] HospitalIn the event this information is protected by the Federal Confidentiality of Alcohol and Drug Abuse Patient Records regulations: The Federal rules restrict any use of the information to criminally investigate or prosecute any alcohol or drug abuse patient.[facility] HospitalIn the event this information is protected by the Federal Confidentiality of Alcohol and Drug Abuse Patient Records regulations: The Federal rules restrict any use of the information to criminally investigate or prosecute any alcohol or drug abuse patient.[facility] Care Teams (unrecognized sec tion and content) Pest Control Worker Helper Relationship Specialty Start Date End Date Elder Reddy MD [address] [place], [place] [id number] PCP - General Internal Medicine 04/28/21 Pest Control Worker Helper Relationship Specialty Start Date End Date Elder Reddy MD [address] [place], [place] [id number] PCP - General Internal Medicine 04/28/21 Pest Control Worker Helper Relationship Specialty Start Date End Date Elder Reddy MD [address] [facility] [place] [place] [address] PCP - General Internal Medicine 04/28/21 Pest Control Worker Helper Relationship Specialty Start Date End Date Elder Reddy MD [address] [facility] [place] [place] [address] PCP - General Internal Medicine 04/28/21 Pest Control Worker Helper Relationship Specialty Start Date End Date Elder Reddy MD [address] [facility] [place] [place] [address] PCP - General Internal Medicine 04/28/21 Pest Control Worker Helper Relationship Specialty Start Date End Date Elder Reddy MD [address] [facility] [place] [place] [address] PCP - General Internal Medicine 04/28/21 Pest Control Worker Helper Relationship Specialty Start Date End Date Elder Reddy MD [address] [facility] [place] [place] [address] PCP - General Internal Medicine 04/28/21 Pest Control Worker Helper Relationship Specialty Start Date End Date Elder Reddy MD [address] [facility] [place] [place] [address] PCP - General Internal Medicine 04/28/21 Pest Control Worker Helper Relationship Specialty Start Date End Date Elder Reddy MD [address] [facility] [place] [place] [address] PCP - General Internal Medicine 04/28/21 Guerrero Rolon [facility] [address] [facility] [place] [place] [address] Pharmacist Pharmacy 09/24/21 Pest Control Worker Helper Relationship Specialty Start Date End Date Elder Reddy MD [address] [facility] [place] [place] [address] PCP - General Internal Medicine 04/28/21 [facility] [address] [facility] [place] [place] [address] Pharmacist Pharmacy 09/24/21 Pest Control Worker Helper Relationship Specialty Start Date End Date Elder Reddy MD [address] [facility] [place] [place] [address] PCP - General Internal Medicine 04/28/21 [facility] [address] [facility] [place] [place] [address] Pharmacist Pharmacy 09/24/21 Pest Control Worker Helper Relationship Specialty Start Date End Date Elder Reddy MD [address] [facility] [place] [place] [address] PCP - General Internal Medicine 04/28/21 [facility] [address] [facility] [place] [place] [address] Pharmacist Pharmacy 09/24/21 Pest Control Worker Helper Relationship Specialty Start Date End Date Elder Reddy MD [address] [facility] [place] [place] [address] PCP - General Internal Medicine 04/28/21 Guerrero Rolon, [facility] [address] [facility] [place] [place] [address] Pharmacist Pharmacy 09/24/21 Pest Control Worker Helper Relationship Specialty Start Date End Date Elder Reddy MD [address] [facility] [place] [place] [address] PCP - General Internal Medicine 04/28/21 [facility] [address] [facility] [place] [address] Pharmacist Pharmacy 09/24/21 Team Status: Active Member Role Status Dates Dr. Elder Reddy MD Primary Care Provider Active Team Status: Active Member Role Status Dates Dr. Remus Ungur , DO Emergency Provider Active Dr. Elder Reddy MD Primary Care Provider Active Dr. Matt Toussaint MD Admit Provider, Attending Pro vider Active Team Status: Active Member Role Status Dates Dr. Ismael Naqvi , DO Emergency Provider Active Dr. Elder Reddy MD Primary Care Provider Active Dr. Matt Toussaint MD Admit Provider, Attending Provider, Other Provider Active Team Status: Active Member Role Status Dates Dr. Elder Reddy MD Primary Care Provider Active Dr. Flip Enriquez MD Attending Provider Active Team Status: Active Member Role Status Dates Dr. Ismael Naqvi , DO Emergency Provider Active Dr. Elder Reddy MD Primary Care Provider Active Dr. Matt Toussaint MD Admit Provider, Other Provide r Active Dr. Talia Lopez , DO Attending Provider, Other Provide r Active Team Status: Inactive Member Role Status Dates Dr. Ismael Naqvi , DO Emergency Provider Active Dr. Elder Reddy MD Primary Care Provider Active Dr. Matt Toussaint MD Admit Provider, Other Provide r Active Dr. Henry Maddox MD Attending Provider Active Dr. Talia Lopez , DO Other Provider Active Pest Control Worker Helper Relationship Specialty Start Date End Date Elder Reddy MD [address] [place] [address] PCP - General Internal Medicine 04/28/21 [facility] [address] [place] [address] Pharmacist Pharmacy 09/24/21 Pest Control Worker Helper Relationship Specialty Start Date End Date Elder Reddy MD [address] [place] [address] PCP - General Internal Medicine 04/28/21 [facility] [address] [place] [address] Pharmacist Pharmacy 09/24/21 Pest Control Worker Helper Relationship Specialty Start Date End Date Elder Reddy MD [address] [place] [address] PCP - General Internal Medicine 04/28/21 [facility] [address] [facility] [place] [address] Pharmacist Pharmacy 09/24/21 Pest Control Worker Helper Relationship Specialty Start Date End Date Elder Reddy MD [address] [facility] [place] [place] [address] PCP - General Internal Medicine 04/28/21 [facility] [address] [facility] [place] [place] [address] Pharmacist Pharmacy 09/24/21 Pest Control Worker Helper Relationship Specialty Start Date End Date Elder Reddy MD [address] [facility] [place] [place] [address] PCP - General Internal Medicine 04/28/21 [facility], [facility] [address] [facility] [place] [place] [address] Pharmacist Pharmacy 09/24/21 Pest Control Worker Helper Relationship Specialty Start Date End Date Elder Reddy MD [address] [facility] [place] [address] PCP - General Internal Medicine 04/28/21 [facility] [address] [facility] [place] [address] Pharmacist Pharmacy 09/24/21 Pest Control Worker Helper Relationship Specialty Start Date End Date Elder Reddy MD [address] [facility] [place] [address] PCP - General Internal Medicine 04/28/21 [facility] [address] [facility] [place] [address] Pharmacist Pharmacy 09/24/21 Pest Control Worker Helper Relationship Specialty Start Date End Date Elder Reddy MD [address] [facility] [place] [address] PCP - General Internal Medicine 04/28/21 [facility] [address] [facility] [place] [address] Pharmacist Pharmacy 09/24/21 Team Status: Active Member Role Status Dates Dr. Ismael Naqvi , Emergency Provider Active Dr. Elder Reddy MD Primary Care Provider Active Dr. Matt Toussaint MD Admit Provider, Other Provide r Active Dr. Henry Maddox MD Attending Provider, Other Provi mercedes Active Dr. Talia Lopez , Other Provider Active Team Status: Inactive Member Role Status Dates Dr. Elder Reddy MD Primary Care Provider Active KAMILA HAMPTON Attending Provider, Referring Provid er Active Pest Control Worker Helper Relationship Specialty Start Date End Date Elder Reddy MD [address] [facility] [place] [address] PCP - General Internal Medicine 04/28/21 [facility] [address] [facility] [place] [address] Pharmacist Pharmacy 09/24/21 Pest Control Worker Helper Relationship Specialty Start Date End Date Elder Reddy MD [address] [facility] [place] [address] PCP - General Internal Medicine 04/28/21 [facility] [address] [facility] [place] [address] Pharmacist Pharmacy 09/24/21 Pest Control Worker Helper Relationship Specialty Start Date End Date Elder eRddy MD [address] [facility] [place] [address] PCP - General Internal Medicine 04/28/21 [facility] [address] [facility] [place] [address] Pharmacist Pharmacy 09/24/21 Pest Control Worker Helper Relationship Specialty Start Date End Date Elder Reddy MD [address] [place] [address] PCP - General Internal Medicine 04/28/21 [facility] [address] [place] [address] Pharmacist Pharmacy 09/24/21 Pest Control Worker Helper Relationship Specialty Start Date End Date Elder Reddy MD [address] [place] [address] PCP - General Internal Medicine 04/28/21 [facility] [address] [place] [address] Pharmacist Pharmacy 09/24/21 Pest Control Worker Helper Relationship Specialty Start Date End Date Elder Reddy MD [address] [place] [address] PCP - General Internal Medicine 04/28/21 [facility] [address] [place] [address] Pharmacist Pharmacy 09/24/21 Pest Control Worker Helper Relationship Specialty Start Date End Date Elder Reddy MD [address] [facility] [address] PCP - General Internal Medicine 04/28/21 [facility] [address] [place] [address] Pharmacist Pharmacy 09/24/21 Pest Control Worker Helper Relationship Specialty Start Date End Date Elder Reddy MD [address] [place] [address] PCP - General Internal Medicine 04/28/21 [facility] [address] [place] [address] Pharmacist Pharmacy 09/24/21 Pest Control Worker Helper Relationship Specialty Start Date End Date Elder Reddy MD [address] [place] [address] PCP - General Internal Medicine 04/28/21 [facility] [address] [place] [address] Pharmacist Pharmacy 09/24/21 Pest Control Worker Helper Relationship Specialty Start Date End Date Elder Reddy MD [address] [place] [address] PCP - General Internal Medicine 04/28/21 [facility] [address] [place] [address] Pharmacist Pharmacy 09/24/21 Pest Control Worker Helper Relationship Specialty Start Date End Date Elder Reddy MD [address] [place] [address] PCP - General Internal Medicine 04/28/21 [facility] [address] [place] [address] Pharmacist Pharmacy 09/24/21 Pest Control Worker Helper Relationship Specialty Start Date End Date Elder Reddy MD [address] [place] [address] PCP - General Internal Medicine 04/28/21 Guerre[facility] Rolon, [facility] [address] [place] [address] Pharmacist Pharmacy 09/24/21 Pest Control Worker Helper Relationship Specialty Start Date End Date Elder Reddy MD [address] [place] [address] PCP - General Internal Medicine 04/28/21 Pest Control Worker Helper Relationship Specialty Start Date End Date Elder Reddy MD [address] [place] [address] PCP - General Internal Medicine 04/28/21 Team Status: Active Member Role Status Dates Dr. Elder Reddy MD Primary Care Provider Active Dr. Mayo Mccullough , DO Emergency Provider Active Dr. Stephanie Gong , DO Admit Provider, Attending Pr ovider Active Team Status: Active Member Role Status Dates Dr. Elder Reddy MD Primary Care Provider Active Dr. Santino Marie , DO Attending Provider Active Team Status: Active Member Role Status Dates Dr. Elder Reddy MD Primary Care Provider Active Dr. Mayo Mccullough , Emergency Provider Active Dr. Stephanie Gong , DO Admit Provider, Other Provid er Active Dr. Myrna Delgado DO Attending Provider, Other Pro vider Active Dr. Yecenia Quinonez MD Other Provider Active Team Status: Active Member Role Status Dates Dr. Elder Reddy MD Primary Care Provider Active Dr. Mayo Mccullough , DO Emergency Provider Active Dr. Stephanie Gong , DO Admit Provider, Other Provid er Active Dr. Myrna Delgado , DO Other Provider Active Dr. Yecenia Quinonez MD Other Provider Active Dr. Santino Marie , DO Attending Provider Active Team Status: Inactive Member Role Status Dates Dr. Elder Reddy MD Primary Care Provider Active Dr. Mayo Mccullough DO Emergency Provider Active Dr. Stephanie Gong , DO Admit Provider, Other Provid er Active Dr. Myrna Delgado , DO Attending Provider Active Dr. Yecenia Quinonez MD Other Provider Active Pest Control Worker Helper Relationship Specialty Start Date End Date Elder Reddy MD [address] [place], [place] [address] PCP - General Internal Medicine 04/28/21 Pest Control Worker Helper Relationship Specialty Start Date End Date Elder Reddy MD [address] [place], [place] [address] PCP - General Internal Medicine 04/28/21 Team Status: Active Member Role Status Dates Dr. Elder Reddy MD Primary Care Provider Active Dr. Santino Marie , Attending Provider Active Dr. Myrna Delgado , Referring Provider Active Team Status: Active Member Role Status Dates Dr. Elder Reddy MD Primary Care Provider Active Dr. Mayo Mccullough DO Emergency Provider Active Dr. Stephanie Gong DO Admit Provider, Other Provid er Active Dr. Myrna Delgado DO Referring Provider, Other Pro vider Active Dr. Yecenia Quinonez MD Other Provider Active Dr. Santino Marie , Attending Provider Active Team Status: Inactive Member Role Status Dates Dr. Elder Reddy MD Primary Care Provider Active Ana Browning SENIOR BIOINFORMATICS SCIENTIST, SENIOR BIOINFORMATICS SCIENTIST-C Attending Provider Active Pest Control Worker Helper Relationship Specialty Start Date End Date Elder Reddy MD [address] [place], [place] [address] PCP - General Internal Medicine 04/28/21 Pest Control Worker Helper Relationship Specialty Start Date End Date Elder Reddy MD [address] [place], [place] [address] PCP - General Internal Medicine 04/28/21 Pest Control Worker Helper Relationship Specialty Start Date End Date Angelita Call MD [address] [place] [place], [place] [address] PCP - General Family Medicine 09/08/23 Pest Control Worker Helper Relationship Specialty Start Date End Date Angelita Call MD [address] [facility] [place] [address] PCP - General Family Medicine 09/08/23 Pest Control Worker Helper Relationship Specialty Start Date End Date Elder Reddy MD [address] [place] [address] PCP - General Internal Medicine 04/28/21 09/07/23 Pest Control Worker Helper Relationship Specialty Start Date End Date Elder Reddy MD [address] [place] [address] PCP - General Internal Medicine 04/28/21 09/07/23 [facility] [address] [place] [address] Pharmacist Pharmacy 09/24/21 05/05/23 Pest Control Worker Helper Relationship Specialty Start Date End Date Elder Reddy MD [address] [place] [address] PCP - General Internal Medicine 04/28/21 09/07/23 [facility]on [facility] [address] [place] [address] Pharmacist Pharmacy 09/24/21 05/05/23 Team Status: Active Member Role Status Dates Dr. Angelita Call MD Primary Care Provider Active Team Status: Inactive Member Role Status Dates Dr. Angelita Call MD Primary Care Provider Active Start: February 19, 2024 End: February 19, 2024 Dr. Angelita Call MD Attending Provider Active Start: February 19, 2024 End: February 19, 2024 Dr. Angelita Call MD Referring Provider Active Start: February 19, 2024 End: February 19, 2024 Team Status: Inactive Member Role Status Dates Dr. Angelita Call MD Primary Care Provider Active Start: March 21, 2024 End: March 21, 2024 Dr. Rehana Vega MD Attending Provider Active Start: March 21, 2024 End: March 21, 2024 Team Status: Inactive Member Role Status Dates Dr. Angelita Call MD Primary Care Provider Active Start: April 03, 2024 End: April 03, 2024 Dr. Angelita Call MD Attending Provider Active Start: April 03, 2024 End: April 03, 2024 Team Status: Inactive Member Role Status Dates Dr. Angelita Call MD Primary Care Provider Active Start: May 29, 2024 End: May 29, 2024 Dr. Angelita Call MD Referring Provider Active Start: May 29, 2024 End: May 29, 2024 Dr. Santino Marie DO Attending Provider Active Start: May 29, 2024 End: May 29, 2024 Team Status: Inactive Member Role Status Dates Dr. Angelita Call MD Primary Care Provider Active Start: May 29, 2024 End: May 29, 2024 Dr. Santino Marie DO Attending Provider Active Start: May 29, 2024 End: May 29, 2024 Team Status: Inactive Member Role Status Dates Dr. Angelita Call MD Primary Care Provider Active Start: June 07, 2024 End: June 07, 2024 Dr. Santino Marie DO Attending Provider Active Start: June 07, 2024 End: June 07, 2024 Dr. Santino Marie DO Referring Provider Active Start: June 07, 2024 End: June 07, 2024 Team Status: Inactive Member Role Status Dates Dr. Angelita Call MD Primary Care Provider Active Start: July 04, 2024 End: July 04, 2024 Dr. Angelita Call MD Attending Provider Active Start: July 04, 2024 End: July 04, 2024 Dr. Angelita Call MD Referring Provider Active Start: July 04, 2024 End: July 04, 2024 Team Status: Inactive Member Role Status Dates Dr. Angelita Call MD Primary Care Provider Active Start: July 04, 2024 End: July 04, 2024 Dr. Angelita Call MD Referring Provider Active Start: July 04, 2024 End: July 04, 2024 Jessica Worthington SENIOR BIOINFORMATICS SCIENTIST-C Attending Provider Active Start: July 04, 2024 End: July 04, 2024 Team Status: Active Member Role Status Dates Dr. Angelita Call MD Primary Care Provider Active Start: July 06, 2024 Jessica Worthington SENIOR BIOINFORMATICS SCIENTIST-C Attending Provider Active Start: July 06, 2024 Jessica Worthington SENIOR BIOINFORMATICS SCIENTIST-C Referring Provider Active Start: July 06, 2024 Team Status: Inactive Member Role Status Dates Dr. Angelita Call MD Primary Care Provider Active Start: July 06, 2024 End: July 06, 2024 Jessica Worthington SENIOR BIOINFORMATICS SCIENTIST-C Attending Provider Active Start: July 06, 2024 End: July 06, 2024 Jessica Worthington SENIOR BIOINFORMATICS SCIENTIST-C Referring Provider Active Start: July 06, 2024 End: July 06, 2024 Team Status: Inactive Member Role Status Dates Dr. Angelita Call MD Primary Care Provider Active Start: August 01, 2024 End: August 01, 2024 Jessica Worthington SENIOR BIOINFORMATICS SCIENTIST-C Attending Provider Active Start: August 01, 2024 End: August 01, 2024 Jessica Worthington SENIOR BIOINFORMATICS SCIENTIST-C Referring Provider Active Start: August 01, 2024 End: August 01, 2024 Team Status: Inactive Member Role Status Dates Dr. Angelita Call MD Primary Care Provider Active Start: August 10, 2024 End: August 10, 2024 Dr. Angelita Call MD Referring Provider Active Start: August 10, 2024 End: August 10, 2024 Jessica Worthington SENIOR BIOINFORMATICS SCIENTIST-C Attending Provider Active Start: August 10, 2024 End: August 10, 2024 Team Status: Inactive Member Role Status Dates Dr. Angelita Call MD Primary Care Provider Active Start: August 10, 2024 End: August 10, 2024 Jessica Worthington SENIOR BIOINFORMATICS SCIENTIST-C Attending Provider Active Start: August 10, 2024 End: August 10, 2024 Jessica Worthington SENIOR BIOINFORMATICS SCIENTIST-C Referring Provider Active Start: August 10, 2024 End: August 10, 2024 Reason for Visit (unrecogniz ed section and content) Reason Comments Radiology US Specialty Diagnoses / Procedures Referred By Maricarmenac t Referred To Contact US IMAGING Diagnoses Thrombocytopenia (HCC) Abnormal liver enzymes Procedures US ABD RIGHT UPPER QUADRANT US ABDOMINAL REAL TIME W/IMAGE LIMITED Willismarsha Kavon DO [place] [address] [place] [address] [place] [address] Referral ID Status Reason Start Date Expiration Date V isits Requested Visits Authorized [id number] Closed Auto-Generate d Referral 09/09/2022 03/14/2023 1 1 Reason Comments F/U 3 Month Specialty Diagnoses / Procedures Referred By Maricarmenac t Referred To Contact Diagnoses appoitments Procedures appoitments [facility] Dept Referral ID Status Reason Start Date Expiration Date V isits Requested Visits Authorized [id number] Closed Patient Cleared - Qualified 100% FAS 01/28/2021 04/28/2021 99 99 Reason Comments Diabetes Specialty Diagnoses / Procedures Referred By Paul t Referred To Contact Diagnoses Encounter for screening for malignant neoplasm of colon Colonsocpy screening Procedures patient Elder Reddy MD [address] [place] [address] [facility] Referral ID Status Reason Start Date Expiration Date Visits Requested Visits Authorized [id number] Authorized Patient Cleared - Qualified 100% FAS 06/06/2021 09/04/2021 99 99 Reason Comments New Pharmacy-med review Reason Comments Appointment Specialty Diagnoses / Procedures Referred By Paul t Referred To Contact Diagnoses consultation to diabetes education Procedures consult to diabetes education Elder Reddy MD [address] [place] [address] [facility] Referral ID Status Reason Start Date Expiration Date Visits Requested Visits Authorized [id number] Authorized Patient Cleared - Qualified 100% FAS 08/12/2021 08/12/2022 99 99 Reason Comments Results, Lab Reason Comments Allied Health Visit DM Specialty Diagnoses / Procedures Referred By Contac t Referred To Contact Diagnoses consultation to diabetes education Procedures consult to diabetes education Elder Reddy MD [address] [place] [address] [facility] Dept Reason Comments F/U 3 Month Specialty Diagnoses / Procedures Referred By Paul t Referred To Contact Internal Medicine / INTERNAL MEDICINE Diagnoses 3 month follow up Procedures 4C EST Elder Reddy MD [address] [place] [address] Elder Reddy MD [address] [place] [address] Referral ID Status Reason Start Date Expiration Date Visits Requested Visits Authorized [id number] Pending Review Financial Clearance Required - Self Pay 11/03/2021 02/01/2022 1 1 Reason Comments Medication Request Reason Onset Date Comments Refill Request 03/17/2022 Reason Comments Results Reason Comments [facility] ER follow up 06/04/2022 Reason Comments New Patient [place] Palsy Specialty Diagnoses / Procedures Referred By Paul t Referred To Contact Neurology Diagnoses [place]'s palsy Procedures CONSULT TO NEUROLOGY OFFICE/OUTPATIENT NEW HIGH MDM 60-74 MINUTES Older, Ana, NAIL SPECIALIST.ACETONE BUTTON PASTER [address] [place] [address] Referral ID Status Reason Start Date Expiration Date Visits Requested Visits Authorized [id number] Pending Review PCP Requested Referral 06/09/2022 06/09/2023 1 1 Reason Comments Clinical Research Nurse Coordinator - Other Patient Update Results Reason Comments Follow Up Reason Comments Diabetes Blood sugar: 115A1c: 6.8 Blurred Vision Right Eye Dry Eye Right Eye Eye Itching Right Eye Eye Burning Right Eye Specialty Diagnoses / Procedures Referred By Contac t Referred To Contact Ophthalmology Diagnoses [place]'s palsy Procedures CONSULT TO OPHTHALMOLOGY OFFICE/OUTPATIENT NEW HIGH MDM 60-74 MINUTES Older, Ana, NAIL SPECIALIST.ACETONE BUTTON PASTER [address] [place] [address] Referral ID Status Reason Start Date Expiration Date Visits Requested Visits Authorized [id number] Pending Review PCP Requested Referral 06/09/2022 06/09/2023 1 1 Reason Comments New Patient Reason Comments New Patient Evaluation Specialty Diagnoses / Procedures Referred By Contac t Referred To Contact Hematology Diagnoses Thrombocytopenia (HCC) Procedures CONSULT TO HEMATOLOGY OFFICE/OUTPATIENT [facility] 60-74 MINUTES Elder Reddy MD [address] [place] [address] Referral ID Status Reason Start Date Expiration Date Visits Requested Visits Authorized [id number] Pending Review PCP Requested Referral 06/23/2022 06/23/2023 1 1 Reason Comments AVS 07/13/22 Reason Comments Results Lab work for thrombo cytopenia Reason Comments Results CBC platelets improv ed Reason Comments Results Normal bone marrow Reason Comments Dry Eye Syndrome Follow Up Reason Comments Consult Right otalgia/ tinni tus, sx since 06/01/22 Specialty Diagnoses / Procedures Referred By Maricarmenac t Referred To Contact Ent - Otolaryngology Diagnoses Right ear pain Procedures CONSULT TO ENT OFFICE/OUTPATIENT [facility] 60-74 MINUTES Memo Treviño PA-C [address] [address] Referral ID Status Reason Start Date Expiration Date V isits Requested Visits Authorized [id number] Closed PCP Requested Referral 06/16/2022 06/16/2023 1 1 Reason Onset Date Comments Refill Request 11/17/2022 Specialty Diagnoses / Procedures Referred By Paul t Referred To Contact Diagnoses Right-sided tinnitus Procedures HEARING TEST/AUDIOGRAM COMPRE AUDIOMETRY THRESHOLD EVAL SP Brittani Marcano MD [address], [place] [address] [facility] [address] [place] [address] Referral ID Status Reason Start Date Expiration Date V isits Requested Visits Authorized [id number] Closed Auto-Generate d Referral 09/30/2022 12/29/2022 1 1 Reason Comments Eye Muscle Spasms Right Eye Reason Comments Forms [place] [facility] form Reason Comments Follow Up Reason Comments Cough Cough, wheezing, luz st congestion, and bodyaches x 3 weeks Reason Comments Established Patient Abnormal liver Enzym es Specialty Diagnoses / Procedures Referred By Paul t Referred To Contact Diagnoses Abnormal liver enzymes Thrombocytopenia (HCC) Procedures CONSULT TO HEPATOLOGY OFFICE/OUTPATIENT [facility] 60-74 MINUTES Elder Reddy MD [address] [place] [address] Referral ID Status Reason Start Date Expiration Date V isits Requested Visits Authorized [id number] Closed PCP Requested Referral 07/20/2022 07/20/2023 1 1 Reason Comments Patient Update Reason Comments Hospital F/U Reason Onset Date Comments colorectal cancer screening 06/21/2023 Reason Comments No Show Reason Comments Hand Injury right hand and wrist pain after fall x 2 days Goals (unrecognized section and content) Goals may be documented in a n alternate sectionGoals may be documented in an alternate sectionGoals may be documented in an alternate sectionGoals may be documented in an alternate sectionGoals may be documented in an alternate sectionGoals may be documented in an alternate sectionGoals may be documented in an alternate sectionGoals may be documented in an alternate sectionGoals may be documented in an alternate section FOR RECORDS PERTAINING TO PATIENTS WHO ARE OR HAVE BEEN ENROLLED IN A CHEMICAL DEPENDENCY/SUBSTANCEABUSE PROGRAM, SOME INFORMATION MAY BE OMITTED. This clinical summary was aggregated from multiple sources. Caution should be exercised in using it in the provision of clinical care. This summary normalizes information from multiple sources, and as a consequence, information in this document may materially change the coding, format and clinical context of patient data. In addition, data may be omitted in some cases. CLINICAL DECISIONS SHOULD BE BASED ON THE PRIMARY CLINICAL RECORDS. [email or web address] provides no warranty or guarantee of the accuracy or completeness of information in this document.
--- NOTE | 2024-10-18 06:51 | PCM.HP.STD ---
[facility] - [facility] General Date of Admission: 10/18/24 Date of Service: 10/18/24 Chief Complaint: abdominal pain [facility] Narrative CLARE MORALES, is a 69 F who presents with the Chief Complaint: abdominal pain OV 07/04/2024 68-year-old female presents for follow-up with complaints of abdominal distention, abdominal discomfort and early satiety. She was last seen in the office November [address] King for follow-up of cirrhosis. She denies any nausea or vomiting. Her weight is up 8 pounds and does Exhibit 1+ BLE pitting edema and mild ascites, with complaints of SOB and fatigue. She is on Lasix 40 mg daily as well as lactulose twice daily and metoclopramide 3 times daily. Symptoms of abdominal distention and discomfort with early satiety began approximately 1 year ago and worsened since starting Ozempic February 2024. She denies any improvement in symptoms since discontinuing Ozempic 5 weeks ago. She denies any heartburn and discontinued pantoprazole 40 mg daily 4 to 6 weeks ago. She reports having 3-4 formed stools daily. Abdominal ultrasound performed 05/18/2024 does reveal small amount of ascites. She will complete an abdominal x-ray today and schedule abdominal ultrasound and gastric emptying study. We have discussed the importance of a low-sodium diet, avoidance of added salt to meals and daily weight. I have added Aldactone to 100 mg daily and she will have a BMP drawn in 1 week. I have also asked her to resume pantoprazole 40 mg once daily, if no improvement in symptoms over the next 2 to 3 weeks I will discontinue due to potential increased risk of infection in patients with cirrhosis. She will follow-up in one month. She reports having labs drawn today just before appointment, ordered by PCP. We will obtain a copy of these results. Patient Instructions: 1. KUB x-ray today 2. ABD Ultrasound call [phone] to schedule 3. Gastric Emptying Study call [phone] to schedule 4. Resume pantoprazole 40mg once daily 5. Daily weights, contact office with >5lb weight gain 6. 2g Sodium Diet 7. Start Aldactone 100mg daily 8. Complete labs in 1 week (BMP) 9. Start Xifaxan 550mg twice a day, if not covered by insurance we can apply for patient assistance 10. Follow-up in one month 11. Continue Furosemide 40mg once daily 07/06/2023 HEPATITIS A-IgM Negative Negative HEP B SURF AG Negative Negative HEP B CORE,IgM Negative Negative HEP C VIRUS AB Non Reactive Non Reactive JACINTO: 07/07/2023 negative EGD 07/07/2023 - Grade I esophageal varices. - Portal hypertensive gastropathy. GES 08/01/2024 negative ( she takes reglan 5mg TID AC) ABD US 07/06/2024 reveals cirrhosis, no evidence of hepatoma. Small amount of ascites. KUB 07/04/2024 reveals constipation. She should increase Lactulose dose to 30ml every morning and 15ml in the evening if needed. CBC: 07/04/2024 WBC 4.2, HGB 11.7, PLT 66 CMP: 07/04/2024 Na 139, K+ 3.8, BUN 12, Creat 0.72, T. Bili 2.50, AST 80, ALT 34, ALP 211, Albumin 3.5 TSH 07/04/2024 3.780 INR 05/29/2024 1.1 MELD: 11 WEIGHT: down 14lbs since starting Aldactone MEDS: Lasix 40mg QD, Aldactone 100mg QD - she reports she is much better - stools are moving much better, she is now having 3-4 BM daily BP: 146/80, HR: 69 Carvedilol 6.25mg once daily at HS - not taking Norvasc 5mg daily - she has never had a colonoscopy - denies any family h/o colon [facility] Medical History Thyroid disease Hepatitis Non-smoker History of edema History of echocardiogram Fracture of right distal radius Right wrist pain Adverse drug reaction Hyperbilirubinemia Nausea vomiting and diarrhea Acute renal failure Acute kidney injury Thrombocytopenia Facial droop History of hypertension HTN (hypertension) Diabetes Home Medications ?Medication ?Instructions ?Recorded ?Last Taken ?Type atorvastatin 20 mg tablet 20 mg PO QHS 07/06/23 Unknown History metoclopramide HCl 5 mg tablet 5 mg PO TID #90 tabs 07/03/24 Unknown Rx (Reglan) furosemide 40 mg tablet (Lasix) 40 mg PO QDAY 07/04/24 Unknown History levothyroxine 50 mcg capsule 50 mcg PO QDAY 07/04/24 Unknown History linagliptin 5 mg tablet (Tradjenta) 5 mg PO QDAY 07/04/24 10/16/24 History pantoprazole 40 mg tablet,delayed 40 mg PO QDAY #90 tabs 07/04/24 Unknown Rx release rifaximin 550 mg tablet (Xifaxan) 550 mg PO BID hepatic 07/04/24 Unknown Rx encephalopathy, cirrhosis #180 tabs spironolactone 100 mg tablet 100 mg PO QAM #90 tabs 07/04/24 Unknown Rx (Aldactone) carvedilol 6.25 mg tablet 6.25 mg PO QHS 08/10/24 Unknown History lactulose 10 gram/15 mL oral 10 g PO QHS 08/10/24 Unknown History solution lactulose 10 gram/15 mL oral 20 g PO BID 08/10/24 Unknown History solution peg 3350-electrolytes 236 240 ml PO Q10M #4,000 mL 08/13/24 Unknown Rx gram-22.74 gram-6.74 gram-5.86 gram solution (Golytely) Allergy/AdvReac Type Severity Reaction Status Date / Time No Known Allergies Allergy Verified 10/16/24 16:43 Family History Other CVA (cerebral vascular accident) Hypertension Surgical History History of esophagogastroduodenoscopy (EGD) Social History household members: spouse, children and other details: 2 grandchildren Smoking Status: Never smoker alcohol intake: never ROS Constitutional Constitutional: Denies fatigue, fever(s), poor appetite, weight gain or weight loss Gastrointestinal Gastrointestinal: Denies belching, bloating, change in bowel habits, change in stool character, chewing difficulty, coffee ground emesis, constipation, cramping, diarrhea, dyspepsia, dysphagia, early satiety, excessive flatus, fecal incontinence, heartburn, hematemesis, hematochezia, hemorrhoids, loose stools, melena, nausea, odynophagia, rectal bleeding, tenesmus, vomiting or weight changes Physical Exam Const alert, oriented x3, no apparent distress and healthy appearing General Appearance: cooperative GI normal to inspection, nondistended, normoactive bowel sounds, soft to palpation, non-tender and non-distended Percussion: normal to percussion Rectal Exam: deferred Assessment & Plan Assessment/Plan (1) Pancytopenia: (2) Abdominal pain: (3) Abdominal distension: PLAN: Assessment and Plan Assessment and Plan (1) Cirrhosis: Status: Acute (2) Pancytopenia: Status: Acute (3) Screening for colon cancer: Status: Acute Orders: Orders Hepatitis B Surface Antibody 08/10/24 JENNIFER Mcdonald D61.818 - Other pancytopenia, K74.60 - Unspecified cirrhosis of liver Hepatitis A AB, Total 08/10/24 JENNIFER Mcdonald D61.818 - Other pancytopenia, K74.60 - Unspecified cirrhosis of liver Liver Profile 08/10/24 JENNIFER Mcdonald D61.818 - Other pancytopenia, K74.60 - Unspecified cirrhosis of liver GGTP 08/10/24 JENNIFER Mcdonald D61.818 - Other pancytopenia, K74.60 - Unspecified cirrhosis of liver, R74.8 - Abnormal levels of other serum enzymes CBC W/Diff, Automated 08/10/24 JENNIFER Mcdonald D61.818 - Other pancytopenia, K74.60 - Unspecified cirrhosis of liver Medications: New peg 3350-electrolytes 236-22.74-6.74 -5.86 gram (Golytely) as directed for split dose bowel prep 240 mL PO Q10M 4,000 mL 0RF JENNIFER Mcdonald Changed From lactulose 10 grams (15 mL) PO DAILY 473 mL 3RF To lactulose [address] De Friend, DO Plan 68-year-old female with a history of cirrhosis who presents for one-month follow-up after initiation of spironolactone and titration of lactulose. Since her last visit, she has noted a 14-pound weight loss, improved abdominal distention, and resolution of lower extremity edema, suggesting good diuretic response. She also reports improved bowel regularity, now having 3?4 bowel movements daily on the increased lactulose dose. She denies shortness of breath and reports feeling overall much better. She has not yet completed the recommended laboratory monitoring one week after starting spironolactone and will do so now to assess renal function and electrolytes. Abdominal ultrasound confirmed cirrhosis with trace ascites and no evidence of hepatoma. She has been counseled on maintaining a low sodium diet and daily weights. She is currently on Lasix, spironolactone, lactulose, rifaximin, and pantoprazole. I recommended she schedule a hepatology consultation with Dr. Maddox for continued management of cirrhosis and further workup. She is also overdue for age-appropriate colorectal cancer screening and will proceed with scheduling a colonoscopy. We will continue current management and reassess in follow-up pending lab results and specialist evaluations. Note: [email or web address] speech recognition braille proofreader software was used to create portions of this document. Sound-alike and misspelled words, as well as other braille proofreader errors may be contained in the documentation. Patient Instructions: Colonoscopy Consult with Dr. Maddox Continue Lactulose 30ml Qam and 15ml at HS PRN, goal of 2-3 BM daily Continue Aldactone 100mg QD and Furosemide 40mg QD
--- NOTE | 2024-10-18 07:04 | PCM.PRE.AN2 ---
ASA Classification* ASA Classification ASA Classification: 3 Assessment & Plan Anesthesia* Anesthesia Assessment Anesthesia Assessment: Discussed sedation and/or anesthesia options, risks, benefits, and alternatives with patient/parents/legal guardian/POA. Questions invited. The patient/parents/legal guardian/POA seems to understand and agrees to proceed with anesthesia plan. Reviewed the physical assessment, medical history, allergy history and patient home medications list prior to surgery/procedure/anesthetic and documented any changes. Performed airway and anesthesia risk assessments. Anesthesia Type Anesthesia Type: MAC Anesthesia Focused Assessment* Airway Assessment Mouth opens: >3 cm Mallampati Score: II Labs Anesthesia Preop lab: CBC WBC 4.5 K/mm3 (4.4-11.0) 08/10/24 09:58 08/10/24 RBC 4.18 M/mm3 (4.2-5.4) L 08/10/24 09:58 08/10/24 Hgb 13.1 g/dL (12.0-15.0) 08/10/24 09:58 08/10/24 Hct 38.8 % (37-47) 08/10/24 09:58 08/10/24 Plt Count 58 K/mm3 (150-450) L 08/10/24 09:58 08/10/24 CHEMISTRY Potassium 5.0 mmol/L (3.3-5.1) 08/10/24 09:58 08/10/24 Sodium 134 mmol/L (133-145) 08/10/24 09:58 08/10/24 Magnesium 2.0 mg/dL (1.6-2.6) 07/06/23 06:15 07/06/23 Phosphorus 2.8 mg/dL (2.5-4.9) 07/21/23 11:39 07/21/23 BUN 15 mg/dL (4-19) 08/10/24 09:58 08/10/24 Creatinine 0.86 mg/dL (0.70-1.20) 08/10/24 09:58 08/10/24 Glucose 152 mg/dL (70-99) H 08/10/24 09:58 08/10/24 POC Glucose 218 mg/dL (74-106) H 06/03/22 12:08 06/03/22 TSH 3.780 uIU/mL (0.300-4.200) 07/04/24 10:47 07/04/24 COAG PT 14.9 SECONDS (11.7-14.9) 05/29/24 11:22 05/29/24 Pre-Assessment Diagnosis/Proposed Procedure Planned Operative Procedure(s): EGD,COLONOSCOPY Anesthesia History 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 When Was Last Pacemaker Check QUESTION #4 FULL TEXT: You/Your Family Experience fever (hyperthermia) with Anesthesia Last Oral Intake Last Oral intake: Last Oral Intake NPO since Meds taken in AM with sips of water? Meds patient instructed to take am of surgery PONV PONV - cloth printing utility worker: PONV - cloth printing utility worker Female Yes 10/16/24 17:00 HX of Motion Sickness No 10/16/24 17:00 HX of N/V After Surgery No 10/16/24 17:00 Non-Smoker Yes 10/16/24 17:00 Duration of Surgery greater No 10/16/24 17:00 than 60 minutes Number of Risk Factors 2 10/16/24 17:00 PONV Score Moderate Risk 10/16/24 17:00 Height & Weight Height & Weight: Anesthesia: Height & Weight Height 5 ft 08/10/24 09:10 Respiratory Assessment Respiratory Assessment - cloth printing utility worker: Respiratory Tract Infection Hx - cloth printing utility worker Hx Respiratory Tract Infection No 10/16/24 17:00 STOP Sleep Apnea STOP Sleep Apnea - cloth printing utility worker: STOP Sleep Apnea - cloth printing utility worker Hx Hypertension Yes 10/16/24 17:00 Hx Sleep Apnea No 10/16/24 17:00 CPAP BIPAP Do you snore loudly (louder No 10/16/24 17:00 than talking or can be heard Do you often feel tired/ No 10/16/24 17:00 fatigued/ sleepy during daytime? Has anyone observed you stop No 10/16/24 17:00 breathing during sleep? STOP Results Negative 10/16/24 17:00 QUESTION #5 FULL TEXT : Do you snore loudly (louder than talking or can be heard through closed doors)? Tobacco Use History Tobacco Use History - cloth printing utility worker: Tobacco Use History - cloth printing utility worker Tobacco Use Non-smoker 06/03/22 12:18 Smoking Status Never smoker 10/16/24 17:00 Hx Tobacco Use No 10/16/24 17:00 Years Smoking Packs Smoked per Day Smoking Cessation Date was within the last 15 years Hx Smoking Cessation Date Hx Smoking Cessation No 10/16/24 17:00 Counseling Hematologic Medial History Hematologic Hx - cloth printing utility worker: Hematologic Medical Hx - urology physician Hx of Blood Transfusion No 10/16/24 17:00 Hx of Transfusion in last 3 No 10/16/24 17:00 Months Date of Last Transfusion (if within last 3 months) Ever experience any problems No 10/16/24 17:00 with transfusion(s)? Specify any problems Hx of Preganancy in last 3 No 10/16/24 17:00 Months Nurse Filling Out Transfusion MGRIFFITH 10/16/24 17:00 & Questions: Date: 10/16/24 10/16/24 17:00 Time: 17:02 10/16/24 17:00 Patient unable to answer at this time (ie. confused, unrespo /Reproduction History /Reproductive History - cloth printing utility worker: /Reproductive Hx- cloth printing utility worker Hx Now Gestational Age (in weeks): EDC: Hx Hx Para Hx Section SAB Active Medications Active Medications: Current Medications Generic Name Dose Route Start Last Admin Trade Name Freq PRN Reason Stop Dose Admin Lactated Ringer's 1,000 mls @ 15 mls/hr 10/18/24 07:00 IV .Q48H BETO PFSH Medical History Thyroid disease Hepatitis Non-smoker History of edema History of echocardiogram Fracture of right distal radius Right wrist pain Adverse drug reaction Hyperbilirubinemia Nausea vomiting and diarrhea Acute renal failure Acute kidney injury Thrombocytopenia Facial droop History of hypertension HTN (hypertension) Diabetes Home Medications ?Medication ?Instructions ?Recorded ?Last Taken ?Type atorvastatin 20 mg tablet 20 mg PO QHS 07/06/23 Unknown History metoclopramide HCl 5 mg tablet 5 mg PO TID #90 tabs 07/03/24 Unknown Rx (Reglan) furosemide 40 mg tablet (Lasix) 40 mg PO QDAY 07/04/24 Unknown History levothyroxine 50 mcg capsule 50 mcg PO QDAY 07/04/24 Unknown History linagliptin 5 mg tablet (Tradjenta) 5 mg PO QDAY 07/04/24 10/16/24 History pantoprazole 40 mg tablet,delayed 40 mg PO QDAY #90 tabs 07/04/24 Unknown Rx release rifaximin 550 mg tablet (Xifaxan) 550 mg PO BID hepatic 07/04/24 Unknown Rx encephalopathy, cirrhosis #180 tabs spironolactone 100 mg tablet 100 mg PO QAM #90 tabs 07/04/24 Unknown Rx (Aldactone) carvedilol 6.25 mg tablet 6.25 mg PO QHS 08/10/24 Unknown History lactulose 10 gram/15 mL oral 10 g PO QHS 08/10/24 Unknown History solution lactulose 10 gram/15 mL oral 20 g PO BID 08/10/24 Unknown History solution peg 3350-electrolytes 236 240 ml PO Q10M #4,000 mL 08/13/24 Unknown Rx gram-22.74 gram-6.74 gram-5.86 gram solution (Golytely) Allergy/AdvReac Type Severity Reaction Status Date / Time No Known Allergies Allergy Verified 10/16/24 16:43 Family History Other CVA (cerebral vascular accident) Hypertension Surgical History History of esophagogastroduodenoscopy (EGD) Social History household members: spouse, children and other details: 2 grandchildren Smoking Status: Never smoker alcohol intake: never Review of Systems (Anesthesia) ROS Narrative System reviewed and no additional complaints, except as documented.
[2024-10-18] MEDS: Lactated Ringers 1,000 ML 15 ML IV (07:18)
--- NOTE | 2024-10-18 07:45 | EGD_PTH ---
PATIENT: CLARE MORALES LOC: EN U#:[id number] AGE/SX: 69/F ROOM: RE10/18/[address]: Dr. Santino King DO : 1955 BED: DIS: 10/18/2024 SPEC #: [id number] RECD: 10/18/24 09:36 STATUS: LIBBY RECheli #: [id number] SEUN: 10/18/24 07:[address]: Santino Kign DEPT: SURGICAL PATHOLOGY RECD BY: Abel Villalobos ENTERED: 10/18/24 11:46 SP TYPE: EGD BIOPSY OT DR: Dr. Angelita Call MD Tissues: A - Gastric mucous membrane B - Duodenum, NOS C - COLON BIOPSY D - Ascending colon E - Sigmoid colon biopsy Procedures: Immunohistochemical Stains Surgery Specimen Level IV HEADER OPERATION: Colonoscopy, EGD and biopsy and polypectomy PRE-OP DIAGNOSIS: Cirrhosis, pancytopenia, screening for colon cancer TISSUE SUBMITTED: A- Gastric body biopsy, B- Duodenum biopsy, C- Hepatic flexure polyp, D- Ascending colon polyp, E- Sigmoid colon polyp MICROSCOPIC DIAGNOSIS A. Stomach, gastric body, biopsies: - Fundic mucosa with slight chronic inflammation - An immunohistochemical stain for Helicobacter pylori is negative B. 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 Large intestine, hepatic flexure polyp: - Tubular adenoma D. Large intestine, ascending polyp: - Tubular adenoma E. Large intestine, sigmoid polyp: * Tubular adenoma MICROSCOPIC DESCRIPTION Slides are reviewed. All matched controls reacted appropriately. These tests were developed and their performance characteristics determined by [facility]. They may not have been cleared or approved by the U.S. Food and Drug Administration. The FDA has determined that such clearance or approval is not necessary. The above immunohistochemical/dualISH markers are viewed by the Pathologist. GROSS DESCRIPTION A. Received in fixative in one container labeled with the patient's name and designated Gastric body biopsy. The specimen consists of two irregular fragments of light gant soft tissue, each measuring 0.3 cm. The specimen is totally submitted in one cassette. B. Received in fixative in one container labeled with the patient's name and designated Duodenum biopsy. The specimen consists of one irregular fragment of light gant soft tissue that measures 0.4 cm. The specimen is totally submitted in one cassette. C. Received in fixative in one container labeled with the patient's name and designated Hepatic flexure polyp. The specimen consists of one irregular fragment of light gant soft tissue that measures 0.5 cm. The specimen is totally submitted in one cassette. D. Received in fixative in one container labeled with the patient's name and designated Ascending colon polyp. The specimen consists of one irregular fragment of light gant soft tissue that measures 0.3 cm. The specimen is totally submitted in one cassette. E. Received in fixative in one container labeled with the patient's name and designated Sigmoid colon polyp. The specimen consists of two irregular fragments of light gant soft tissue that measure 0.2 and 0.3 cm. The specimen is totally submitted in one cassette. [place] 10/18/2024 CPT:11475k7,75670
--- NOTE | 2024-10-18 08:40 | OP.PROVAT_ITS ---
10/18/2024 Angelita Call [address] [address] Re : Upper GI endoscopy procedure for Macy Fonsecana Dear Dr. Call This procedure was performed on Wednesday, October 18, 2024. My impressions and recommendations are as follows: Impressions : - Small (< 5 mm) esophageal varices. - Portal hypertensive gastropathy. Biopsied. - Gastric stenosis was found at the pylorus. - Chronic duodenitis. Recommendations : - Discharge patient to home. - Resume previous diet. - Continue present medications. - Await pathology results. - Repeat upper endoscopy in 3 months for surveillance. My findings are described in the full procedure note, which is enclosed. If I can be of further assistance, please feel free to contact me at . Sincerely, Santino King, 10/18/2024 8:40:16 AM This report has been signed electronically.
--- NOTE | 2024-10-18 08:40 | OP.EGD_ITS ---
Patient Name: Macy Alonso Procedure Date: 10/18/2024 8:04 AM Date of : 1955 Age: 69 Procedure: Upper GI endoscopy Indications: Epigastric abdominal pain, Functional Dyspepsia, Indigestion, Esophageal varices with bleeding, Follow-up of esophageal varices with bleeding Providers: Santino King DO Medicines: Monitored Anesthesia Care Patient Profile: This is a 69 year old female. Refer to note in patient chart for documentation of history and physical. Patient has symptoms of acute epigastric abdominal pain, acute dyspepsia and acute nausea. Her most recent EGD for biopsy was within the past six months. Complications: No immediate complications. Procedure: Pre-Anesthesia Assessment: - Prior to the procedure, a History and Physical was performed, and patient medications and allergies were reviewed. The patient is competent. The risks and benefits of the procedure and the sedation options and risks were discussed with the patient. All questions were answered and informed consent was obtained. Patient identification and proposed procedure were verified by the physician in the pre-procedure area. Mental Status Examination: alert and oriented. Airway Examination: normal oropharyngeal airway and neck mobility. Respiratory Examination: clear to auscultation. CV Examination: normal. Prophylactic Antibiotics: The patient does not require prophylactic antibiotics. Prior Anticoagulants: The patient has taken no anticoagulant or antiplatelet agents. ASA Grade Assessment: III - A patient with severe systemic disease. After reviewing the risks and benefits, the patient was deemed in satisfactory condition to undergo the procedure. The anesthesia plan was to use monitored anesthesia care (MAC). Immediately prior to administration of medications, the patient was re-assessed for adequacy to receive sedatives. The heart rate, respiratory rate, oxygen saturations, blood pressure, adequacy of pulmonary ventilation, and response to care were monitored throughout the procedure. The physical status of the patient was re-assessed after the procedure. After obtaining informed consent, the endoscope was passed under direct vision. Throughout the procedure, the patient's blood pressure, pulse, and oxygen saturations were monitored continuously. The Colonoscope was introduced through the mouth, and advanced to the third part of the duodenum. Small bowel enteroscopy was deemed necessary. The upper GI endoscopy was accomplished without difficulty. The patient tolerated the procedure well. Scope In: 8:19:47 AM Scope Out: 8:23:36 AM Total Procedure Duration Time 0 hours 3 minutes 49 seconds Findings: Small (< 5 mm) varices were found in the lower third of the esophagus. They were 5 mm in largest diameter. Severe portal hypertensive gastropathy was found in the entire examined stomach. Biopsies were taken with a cold forceps for histology. Verification of patient identification for the specimen was done. Estimated blood loss was minimal. Biopsies were taken with a cold forceps for Helicobacter pylori testing. Verification of patient identification for the specimen was done. Estimated blood loss was minimal. A benign-appearing, intrinsic moderate stenosis was found at the pylorus. This was traversed. Diffuse moderate inflammation was found in the entire duodenum. Impression: - Small (< 5 mm) esophageal varices. - Portal hypertensive gastropathy. Biopsied. - Gastric stenosis was found at the pylorus. - Chronic duodenitis. Recommendation: - Discharge patient to home. - Resume previous diet. - Continue present medications. - Await pathology results. - Repeat upper endoscopy in 3 months for surveillance. Procedure Code(s): --- Professional --- 74728, Small intestinal endoscopy, enteroscopy beyond second portion of duodenum, not including ileum; with biopsy, single or multiple CPT copyright 2021 [employer]. All rights reserved. The codes documented in this report are preliminary and upon gas prover review may be revised to meet current compliance requirements. Santino King DO 10/18/2024 8:40:16 AM This report has been signed electronically. Number of Addenda: 0 Note Initiated On: 10/18/2024 8:04 AM
--- NOTE | 2024-10-18 08:44 | PCM.POST.ANE ---
Anesthesia: Postop Eval I Current Vital Signs Temperature: 97.8 F Pulse Rate: 78 Blood Pressure: 123/56 Respiratory Rate: 16 Pulse Ox: 99 Oxygen Delivery Method: Room Air Assessment Airway patent: Yes Spontaneous unlabored respirations: Yes Mental status: Asleep nausea: No Vomiting: No Anesthesia Complication: No Fluid Hydration Crystalloid volume administer (ml): 400 Total IV fluid infused: 400 Progress Note Anesthesia document: Postop Eval 1 completed: Yes
--- NOTE | 2024-10-18 08:46 | OP.COLON_ITS ---
Patient Name: Macy Alonso Procedure Date: 10/18/2024 8:23 AM Date of : 1955 Age: 69 Procedure: Colonoscopy Indications: Generalized abdominal pain Providers: Santino King DO Medicines: Monitored Anesthesia Care Patient Profile: This is a 69 year old female. Refer to note in patient chart for documentation of history and physical. Patient has symptoms of acute epigastric abdominal pain, acute dyspepsia and acute nausea. Her most recent EGD for biopsy was within the past six months. Last Colonoscopy: 5 years ago. Complications: No immediate complications. Procedure: Pre-Anesthesia Assessment: - Prior to the procedure, a History and Physical was performed, and patient medications and allergies were reviewed. The patient is competent. The risks and benefits of the procedure and the sedation options and risks were discussed with the patient. All questions were answered and informed consent was obtained. Patient identification and proposed procedure were verified by the physician in the pre-procedure area. Mental Status Examination: alert and oriented. Airway Examination: normal oropharyngeal airway and neck mobility. Respiratory Examination: clear to auscultation. CV Examination: normal. Prophylactic Antibiotics: The patient does not require prophylactic antibiotics. Prior Anticoagulants: The patient has taken no anticoagulant or antiplatelet agents. ASA Grade Assessment: III - A patient with severe systemic disease. After reviewing the risks and benefits, the patient was deemed in satisfactory condition to undergo the procedure. The anesthesia plan was to use monitored anesthesia care (MAC). Immediately prior to administration of medications, the patient was re-assessed for adequacy to receive sedatives. The heart rate, respiratory rate, oxygen saturations, blood pressure, adequacy of pulmonary ventilation, and response to care were monitored throughout the procedure. The physical status of the patient was re-assessed after the procedure. After I obtained informed consent, the scope was passed under direct vision. Throughout the procedure, the patient's blood pressure, pulse, and oxygen saturations were monitored continuously. The Colonoscope was introduced through the anus and advanced to the cecum, identified by appendiceal orifice and ileocecal valve. The quality of the bowel preparation was fair. The ileocecal valve, appendiceal orifice, and rectum were photographed. Scope In: 8:25:02 AM Scope Withdrawal Time 0 hours 5 minutes 16 seconds Scope Out: 8:33:42 AM Total Procedure Duration Time 0 hours 8 minutes 40 seconds Findings: The perianal and digital rectal examinations were normal. Multiple small-mouthed diverticula were found in the recto-sigmoid colon, sigmoid colon and descending colon. Three sessile polyps were found in the sigmoid colon, hepatic flexure and ascending colon. The polyps were 10 mm in size. These polyps were removed with a jumbo cold forceps. Resection and retrieval were complete. Verification of patient identification for the specimen was done. Estimated blood loss was minimal. Stool was found in the rectum, in the recto-sigmoid colon, in the sigmoid colon, in the transverse colon, at the hepatic flexure, in the ascending colon and in the cecum. Impression: - Preparation of the colon was fair. - Diverticulosis in the recto-sigmoid colon, in the sigmoid colon and in the descending colon. - Three 10 mm polyps in the sigmoid colon, at the hepatic flexure and in the ascending colon, removed with a jumbo cold forceps. Resected and retrieved. - Stool in the rectum, in the recto-sigmoid colon, in the sigmoid colon, in the transverse colon, at the hepatic flexure, in the ascending colon and in the cecum. Recommendation: - Discharge patient to home. - Resume previous diet. - Continue present medications. - Await pathology results. - Repeat colonoscopy because the bowel preparation was poor. Procedure Code(s): --- Professional --- 08026, Colonoscopy, flexible; with biopsy, single or multiple CPT copyright 2021 [employer]. All rights reserved. The codes documented in this report are preliminary and upon crib pad maker review may be revised to meet current compliance requirements. Santino King DO 10/18/2024 8:46:32 AM This report has been signed electronically. Number of Addenda: 0 Note Initiated On: 10/18/2024 8:23 AM
--- NOTE | 2024-10-18 08:47 | OP.PROVAT_ITS ---
10/18/2024 Angelita Call [address] [place] [address] Re : Colonoscopy procedure for Macy Alonso Dear Dr. Call This procedure was performed on Friday, October 18, 2024. My impressions and recommendations are as follows: Impressions : - Preparation of the colon was fair. - Diverticulosis in the recto-sigmoid colon, in the sigmoid colon and in the descending colon. - Three 10 mm polyps in the sigmoid colon, at the hepatic flexure and in the ascending colon, removed with a jumbo cold forceps. Resected and retrieved. - Stool in the rectum, in the recto-sigmoid colon, in the sigmoid colon, in the transverse colon, at the hepatic flexure, in the ascending colon and in the cecum. Recommendations : - Discharge patient to home. - Resume previous diet. - Continue present medications. - Await pathology results. - Repeat colonoscopy because the bowel preparation was poor. My findings are described in the full procedure note, which is enclosed. If I can be of further assistance, please feel free to contact me at . Sincerely, Santino King DO 10/18/2024 8:46:32 AM This report has been signed electronically.
== END 2024-10-18 09:23 | disposition home or self-care (01) ==
LOC: EN 06:40 → AC 06:41
PROVIDERS: PCP Family Medicine; Referring Provider Family Medicine; Visit Provider Internal Medicine Gastroenterology
PROC: 0DJD8ZZ Inspection of Lower Intestinal Tract, Via Natural or Artificial Opening Endoscopic (ICD-10-PCS; CPT 45378; principal; 2024-10-18 07:40)
DX: K76.6 Portal hypertension (principal); D61.818 Other pancytopenia; I85.01 Esophageal varices with bleeding; K74.60 Unspecified cirrhosis of liver; E11.9 Type 2 diabetes mellitus without complications; R14.0 Abdominal distension (gaseous); K30 Functional dyspepsia; R60.0 Localized edema; Z79.84 Long term (current) use of oral hypoglycemic drugs; R68.81 Early satiety; K57.30 Diverticulosis of large intestine without perforation or abscess without bleeding; Z79.899 Other long term (current) drug therapy; R53.83 Other fatigue; K29.80 Duodenitis without bleeding; Z79.890 Hormone replacement therapy; Z82.49 Family history of ischemic heart disease and other diseases of the circulatory system; I10 Essential (primary) hypertension; D12.2 Benign neoplasm of ascending colon; D12.3 Benign neoplasm of transverse colon; D12.5 Benign neoplasm of sigmoid colon
CPT/HCPCS: 44361; 45380; 82962; 88305; 88342; J2405

== ENCOUNTER 2024-11-13 12:28 | Emergency (ER) | payer MEDICARE, MEDICAID, SELFPAY ==
[2024-11-13 12:29] VITALS: BP 178/76; PULSE 80; RESP 19; TEMP 36.6; O2SAT 99; BMI 36.1
--- NOTE | 2024-11-13 12:34 | EDS_ITS ---
HPI <Dr. Addy Tovar DO - Last Filed: 11/13/24 15:43> HPI - GI History of Present Illness Chief Complaint: Abd Pain Informant: patient Abdominal Pain/Flank Pain Onset: Days (3) Context: Gradual Onset Timing: Intermittent Quality: Sharp Location: Epigastric, RUQ and LUQ Worsened by: - (At night) Relieved by: Nothing Nausea/Vomiting/Emesis GI Symptom: Positive for Nausea; Negative for Vomiting Diarrhea/Melena/Hematochezia GI Symptom: Negative for Diarrhea, Melena or Hematochezia Associated Symptoms Associated Symptoms: Negative for Dysuria, Frequency or Hematuria Narrative Narrative: Patient presents with abdominal pain that has been intermittent over the last 3 days. Patient states it is over her upper abdomen. Patient describes it as sharp. Patient states it is worse at night. Patient states nothing else makes it worse and nothing makes it better. Patient admits to some nausea but denies any vomiting. Patient denies any diarrhea, melena, or hematochezia. Patient denies any dysuria, frequency, or hematuria. Patient denies any fevers or chills. [facility] <Dr. Addy Tovar, - Last Filed: 11/13/24 15:43> [facility] Medical History Thyroid disease Hepatitis Non-smoker History of edema History of echocardiogram Fracture of right distal radius Right wrist pain Adverse drug reaction Hyperbilirubinemia Nausea vomiting and diarrhea Acute renal failure Acute kidney injury Thrombocytopenia Facial droop History of hypertension HTN (hypertension) Diabetes Home Medications ?Medication ?Instructions ?Recorded ?Last Taken ?Type atorvastatin 20 mg tablet 20 mg PO QHS 07/06/23 Unknow n History metoclopramide HCl 5 mg tablet 5 mg PO TID #90 tabs Unknown Rx (Reglan) furosemide 40 mg tablet (Lasix) 40 mg PO QDAY 07/04/24 Unknown History levothyroxine 50 mcg capsule 50 mcg PO QDAY 07/04/24 U nknown History linagliptin 5 mg tablet (Tradjenta) 5 mg PO QDAY 07/0410/16/24 History pantoprazole 40 mg tablet,delayed 40 mg PO QDAY #90 ta bs 07/04/24 Unknown Rx release rifaximin 550 mg tablet (Xifaxan) 550 mg PO BID hepati c 07/04/24 Unknown Rx encephalopathy, cirrhosis #180 tabs spironolactone 100 mg tablet 100 mg PO QAM #90 tabs Unknown Rx (Aldactone) carvedilol 6.25 mg tablet 6.25 mg PO QHS 08/10/24 Unkn own History lactulose 10 gram/15 mL oral 10 g PO QHS 08/10/24 Unkn own History solution lactulose 10 gram/15 mL oral 20 g PO BID 08/10/24 Unkn own History solution peg 3350-electrolytes 236 240 ml PO Q10M #4,000 mL 04/08 Unknown Rx gram-22.74 gram-6.74 gram-5.86 gram solution (Golytely) sucralfate 1 gram tablet (Carafate) 1 g PO BID #20 tab s 11/13/24 Unknown Rx Allergy/AdvReac Type Severity Reaction Status Date / Time No Known Allergies Allergy Verified 11/13/24 12:31 Family History Other CVA (cerebral vascular accident) Hypertension Surgical History History of esophagogastroduodenoscopy (EGD) Social History household members: spouse, children and other details: 2 grandchildren Smoking Status: Never smoker alcohol intake: never ROS <Dr. Addy Tovar DO - Last Filed: 11/13/24 15:43> ROS ED Constitutional Constitutional ED: Denies chills or fever(s) Eyes Eyes: Denies blurry vision or change in vision ENT ENT ED: Denies rhinorrhea or sore throat Cardiovascular Cardiovascular: Denies chest pain or palpitations Respiratory/Chest Respiratory/Chest: Denies cough or dyspnea Gastrointestinal Gastrointestinal: Reports abdominal pain and nausea; Denies vomiting Genitourinary Genitourinary ED: Denies dysuria or hematuria Musculoskeletal Musculoskeletal: Denies back pain or neck pain Integumentary Reports rash; Denies abscess Neurologic Neurologic: Denies headache(s) or weakness Allergic/Immunologic Allergic/Immunologic ED: Denies mouth swelling or urticaria EXAM <Dr. Addy Tovar DO - Last Filed: 11/13/24 15:43> Physical Exam Const Vital Signs: 11/13/24 12:29 11/13/24 14:28 11/13/24 16:00 Temperature 98 F 98.1 F 98.1 F Temperature Source Oral Oral Oral Pulse Rate 80 76 88 Respiratory Rate 19 H 17 15 Blood Pressure 178/76 H 117/68 105/71 Blood Pressure Mean 110 84 82 Pulse Ox 99 99 100 Oxygen Delivery Method Room Air Room Air Room Air 11/13/24 16:26 Temperature 97.9 F Temperature Source Pulse Rate 77 Respiratory Rate 18 Blood Pressure 105/71 Blood Pressure Mean 82 Pulse Ox 100 Oxygen Delivery Method Positive well nourished and well developed Constitutional Narrative: BMI is 36.1. General Appearance ED: well developed and NAD HEENT Reports moist mucous membranes Neck supple and no JVD Resp normal respiratory effort and clear to auscultation bilaterally Cardio regular rate and regular rhythm GI non-distended Palpation: soft and tender epigastric, LUQ and RUQ; Negative for guarding or rebound tenderness present Neuro CN's II-XII intact bilaterally, moves all extremities and no sensory deficits noted Sensorium / Orientation: alert Motor Exam: strength 5/5 throughout Psych mental status grossly normal <Dr. Juan Manuel Durbin MD - Last Filed: 11/13/24 17:32> Physical Exam Const Vital Signs: 11/13/24 12:29 11/13/24 14:28 11/13/24 16:00 Temperature 98 F 98.1 F 98.1 F Temperature Source Oral Oral Oral Pulse Rate 80 76 88 Respiratory Rate 19 H 17 15 Blood Pressure 178/76 H 117/68 105/71 Blood Pressure Mean 110 84 82 Pulse Ox 99 99 100 Oxygen Delivery Method Room Air Room Air Room Air 11/13/24 16:26 Temperature 97.9 F Temperature Source Pulse Rate 77 Respiratory Rate 18 Blood Pressure 105/71 Blood Pressure Mean 82 Pulse Ox 100 Oxygen Delivery Method MDM <Dr. Addy Tovar DO - Last Filed: 11/13/24 15:43> [facility] MDM Narrative Medical decision making narrative: Differential diagnosis includes gastritis, pancreatitis, cholecystitis, cholelithiasis, cirrhosis, electrolyte abnormality, peptic ulcer disease, duodenal ulcer, and gastroesophageal reflux disease. CBC will be obtained to assess for leukocytosis and anemia. Comprehensive metabolic profile will be obtained to assess for hepatic function, renal function, and electrolyte abnormality. Lipase will be obtained to assess for pancreatitis. Urinalysis will be obtained to assess for urinary tract infection and hematuria. CT scan of the abdomen and pelvis will be obtained to assess for bowel obstruction, perforation, cirrhosis, and cholecystitis. History & Record Review Additional record(s) reviewed:: Prior ED visit and Prior labs Lab Data Attestation: I reviewed the patient's lab results. Lab results narrative: CBC was reviewed. White blood cell count was slightly low at 4.3. Platelets were slightly low at 48. Comprehensive metabolic profile was reviewed. Glucose was mildly elevated at 162. Total bilirubin was 2.75, AST was 111, ALT was 67, alkaline phosphatase was 206. These are consistent with previous results. Lipase was reviewed and was normal at 30. Urinalysis was reviewed. There is no evidence of urinary tract infection or hematuria. Labs: Laboratory Results - last 24 hr 11/13/24 11/13/24 13:50 14:49 WBC 4.3 L RBC 4.26 Hgb 13.6 Hct 40.1 MCV 94.1 MCH 31.9 MCHC 33.9 RDW Std Deviation 52.5 H RDW Coeff of [place] 15.2 H Plt Count 48 L* MPV 12.2 H Immature Gran % (Auto) 0.200 Neut % (Auto) 56.9 Lymph % (Auto) 22.4 [place] % (Auto) 15.0 H Eos % (Auto) 4.6 Baso % (Auto) 0.9 Absolute Neuts (auto) 2.5 Absolute Lymphs (auto) 0.97 Nucleated RBC % 0 Sodium 133 Potassium 4.3 Chloride 103 Carbon Dioxide 22.4 Anion Gap 8 BUN 12 Creatinine 0.94 Estim Creat Clear Calc 55.80 Est GFR (MDRD) Non-Af 66 BUN/Creatinine Ratio 13.0 Glucose 162 H Calcium 9.0 Total Bilirubin 2.75 H AST 111 H ALT 67 H Alkaline Phosphatase 206 H Total Protein 7.2 Albumin 3.6 Globulin 3.6 Albumin/Globulin Ratio 1.0 Lipase 30 Urine Color Yellow Urine Clarity Clear Urine pH 6.5 Ur Specific [place] 1.010 Urine Protein 15 H Urine Glucose (UA) Normal Urine Ketones Negative Urine Occult Blood Negative Urine Nitrite Negative Urine Bilirubin Negative Urine Urobilinogen Normal Ur Leukocyte Esterase Negative Urine RBC 0-5 SEEN Urine WBC 0-5 SEEN Ur Squamous Epith Cells 0-5 SEEN Urine Bacteria 1+ Urine Mucus 0 SEEN Radiography Diagnostic Testing: Clinical Impression(s) from Imaging Studies Abdomen/Pelvis CT 11/13/24 13:14 IMPRESSION: 1. Cirrhosis with sequela of portal hypertension including small volume ascites. 2. Question mixing artifact within the SMV and portal vein versus nonocclusive thrombus. Consider RIGHT upper quadrant Doppler ultrasound or more optimally CT venogram/CT with delayed imaging as indicated. 3. Gallbladder wall thickening is nonspecific in the setting of cirrhosis, also minimally present 07/06/2024. Correlate with presentation/exam and if there is concern for cholecystitis, consider RIGHT upper quadrant ultrasound and/or HIDA as indicated. 4. Gastric, duodenal, and RIGHT colonic wall thickening, nonspecific in the setting of portal hypertension, possible gastritis/duodenitis and colitis versus portal hypertensive gastroenteropathy and colopathy. 5. Additional description as above. Reading Location: [facility] Treatment and Re-Evaluation :: Patient was given IV fluids and Zofran. Patient was given a GI cocktail. Patient was feeling better on reevaluation. Patient was advised of her findings. Care of the patient was turned over the oncoming physician pending CT results. <Dr. Juan Manuel Durbin MD - Last Filed: 11/13/24 17:32> [facility] Narrative Medical decision making narrative: Differential diagnosis includes gastritis, pancreatitis, cholecystitis, cholelithiasis, cirrhosis, electrolyte abnormality, peptic ulcer disease, duodenal ulcer, and gastroesophageal reflux disease. CBC will be obtained to assess for leukocytosis and anemia. Comprehensive metabolic profile will be obtained to assess for hepatic function, renal function, and electrolyte abnormality. Lipase will be obtained to assess for pancreatitis. Urinalysis will be obtained to assess for urinary tract infection and hematuria. CT scan of the abdomen and pelvis will be obtained to assess for bowel obstruction, perforation, cirrhosis, and cholecystitis. Patient turned over to me from Dr. Addy Hightower the initiating physician. Her CAT scan showed findings most seemed chronic. On repeat exam around 5:20 PM. She had no pain. Was symptom-free after the GI cocktail. They were comfortable being discharged to home. 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 Lab Data Labs: Laboratory Results - last 24 hr 11/13/24 11/13/24 13:50 14:49 WBC 4.3 L RBC 4.26 Hgb 13.6 Hct 40.1 MCV 94.1 MCH 31.9 MCHC 33.9 RDW Std Deviation 52.5 H RDW Coeff of [place] 15.2 H Plt Count 48 L* MPV 12.2 H Immature Gran % (Auto) 0.200 Neut % (Auto) 56.9 Lymph % (Auto) 22.4 [place] % (Auto) 15.0 H Eos % (Auto) 4.6 Baso % (Auto) 0.9 Absolute Neuts (auto) 2.5 Absolute Lymphs (auto) 0.97 Nucleated RBC % 0 Sodium 133 Potassium 4.3 Chloride 103 Carbon Dioxide 22.4 Anion Gap 8 BUN 12 Creatinine 0.94 Estim Creat Clear Calc 55.80 Est GFR (MDRD) Non-Af 66 BUN/Creatinine Ratio 13.0 Glucose 162 H Calcium 9.0 Total Bilirubin 2.75 H AST 111 H ALT 67 H Alkaline Phosphatase 206 H Total Protein 7.2 Albumin 3.6 Globulin 3.6 Albumin/Globulin Ratio 1.0 Lipase 30 Urine Color Yellow Urine Clarity Clear Urine pH 6.5 Ur Specific [place] 1.010 Urine Protein 15 H Urine Glucose (UA) Normal Urine Ketones Negative Urine Occult Blood Negative Urine Nitrite Negative Urine Bilirubin Negative Urine Urobilinogen Normal Ur Leukocyte Esterase Negative Urine RBC 0-5 SEEN Urine WBC 0-5 SEEN Ur Squamous Epith Cells 0-5 SEEN Urine Bacteria 1+ Urine Mucus 0 SEEN Radiography Diagnostic Testing: Clinical Impression(s) from Imaging Studies Abdomen/Pelvis CT 11/13/24 13:14 IMPRESSION: 1. Cirrhosis with sequela of portal hypertension including small volume ascites. 2. Question mixing artifact within the SMV and portal vein versus nonocclusive thrombus. Consider RIGHT upper quadrant Doppler ultrasound or more optimally CT venogram/CT with delayed imaging as indicated. 3. Gallbladder wall thickening is nonspecific in the setting of cirrhosis, also minimally present 07/06/2024. Correlate with presentation/exam and if there is concern for cholecystitis, consider RIGHT upper quadrant ultrasound and/or HIDA as indicated. 4. Gastric, duodenal, and RIGHT colonic wall thickening, nonspecific in the setting of portal hypertension, possible gastritis/duodenitis and colitis versus portal hypertensive gastroenteropathy and colopathy. 5. Additional description as above. Reading Location: [facility] Discharge Plan Triage Chief Complaint: Abd Pain ED Provider: Addy Tvoar Dx/Rx/DC Orders Clinical Impression: Epigastric abdominal pain, Cirrhosis, Thrombocytopenia Instructions: ED Abdominal Pain Unkn Cause Fem Prescriptions: New sucralfate [Carafate] 1 gram tablet 1 g PO BID Qty: 20 0RF No Action pantoprazole 40 mg tablet,delayed release (DR/EC) 40 mg PO QDAY Qty: 90 0RF Rx Instructions: take 30 minutes before breakfast daily spironolactone [Aldactone] 100 mg tablet 100 mg PO QAM Qty: 90 1RF Rx Instructions: take one tablet daily in the morning Xifaxan 550 mg tablet 550 mg PO BID Qty: 180 0RF levothyroxine 50 mcg capsule 50 mcg PO QDAY Tradjenta 5 mg tablet 5 mg PO QDAY furosemide [Lasix] 40 mg tablet 40 mg PO QDAY lactulose 10 gram/15 mL solution 10 g PO QHS lactulose 10 gram/15 mL solution 20 g PO BID carvedilol 6.25 mg tablet 6.25 mg PO QHS Rx Instructions: must administer with a meal/food peg 3350-electrolytes [Golytely] 236-22.74-6.74 -5.86 gram recon soln 240 ml PO Q10M Qty: 4000 0RF Rx Instructions: as directed for split dose bowel prep atorvastatin 20 mg tablet 20 mg PO QHS metoclopramide HCl [Reglan] 5 mg tablet 5 mg PO TID Qty: 90 3RF Rx Instructions: one hour before meals Primary Care Provider: Angelita Call Referrals: Angelita Call MD [Primary Care Provider] - 5-7 Days Santino King DO [Med Staff - Active Staff] - 5-7 Days Print Language: Chinese Disposition Disposition: Home, Self Care
--- OUTSIDE RECORDS SUMMARY | 2024-11-13 13:05 | XMS RPT_ITS | CCD ---
Author Organization [facility] [place] Team Providers Care Dragger Name Role Phone SYLVESTER RUVALCABA Admitting Unavailable SYLVESTER RUVALCABA Attending Unavailable SYLVESTER RUVALCABA Consulting Unavailable NONE, NONE Consulting Unavailable TIFFANYCECILIA CHAPPELL Admitting Unavailable TIFFANYCECILIA RIVERS Primary Care Unavailable CECILIA ALLEN Attending Unavailable NATTY KIMBALL Consulting Unavailable PROVIDER, UNKNOWN Consulting Unavailable PROVIDER, UNKNOWN Consulting Unavailable PROVIDER, UNKNOWN Consulting Unavailable NATTY KIMBALL Admitting Unavailable NATTY KIMBALL Primary Care Unavailable NATTY KIMBALL Consulting Unavailable NATTY KIMBALL Attending Unavailable PROVIDER, UNKNOWN Consulting Unavailable PROVIDER, UNKNOWN Consulting Unavailable PROVIDER, UNKNOWN Consulting Unavailable Elder Reddy MD Primary Care Provider [facility], [place] Unavailable Elder Reddy MD Primary Care Provider [facility], [place] Unavailable Elder Reddy MD Primary Care Provider [facility], [place] Unavailable Dr. Ismael Naqvi Emergency Provider [...] REDDY, ELDER Reed Primary Care Unavailable Gonzales RPeliseo, Guerrero Unavailable Elder Reddy MD Primary Care Provider Dr. Elder Reddy Primary Care Provider Dr. Mayo Mccullough Emergency Provider Gong, Dr. Singh Admit Provider Unavailberhane Gong, Dr. Singh Other Provider Unavailabl e Dr. Myrna Delgado Other Provider Dr. Yecenia Quinonez Other Provider Christine, Dr. De Attending Provider Dr. Myrna Delgado Attending Provider Dr. Myrna Delgado Referring Provider Oneyda GUERRA, Angelita Del Angel Primary Care Provider SIMEON, ELDER Reed Primary Care Unavailable SIMEON, BRENDA Attending Unavailable ANA BROWNING Attending Unavailable REDDY, BRENDA Primary Care Unavailable REDDY, BRENDA Primary Care Unavailable ANA BROWNING Referring Unavailable SIMEON, ELDER Reed Primary Care Unavailable CECILIA POWERS Referring Unavailable REDDY, ELDER Reed Primary Care Unavailable KATHERINE GOLDSTEIN Referring Unavailable KATHERINE GOLDSTEIN Attending Unavailable REDDY, BRENDA Primary Care Unavailable BRITTANI SANTANA Attending Unavailable REDDY, BRENDA Primary Care Unavailable ALIEANA NEWSOME Referring Unavailable REDDY, BRENDA Primary Care Unavailable ANA BROWNING Attending Unavailable REDDY, BRENDA Primary Care Unavailable ALIEANA DUMONT Referring Unavailable ANGELITA CALL Primary Care Unavailable BRUCE YU Referring Unavailable ANGELITA CALL Primary Care Unavailable REDDY, BRENDA Primary Care Unavailable REDDY, BRENDA Referring Unavailable CECILIA POWERS Attending Unavailable REDDY, BRENDA Primary Care Unavailable POWERSCECILIA Nowak Referring Unavailable REDDY, BRENDA Primary Care Unavailable ANA BROWNING Referring Unavailable REDDY, BRENDA Primary Care Unavailable KATHERINE GOLDSTEIN Attending Unavailable REDDY, BRENDA Primary Care Unavailable POWERSCECILIA Nowak Referring Unavailable ARIE GAYTAN Attending Unavailable BRITTANI SANTANA Referring Unavailable REDDY, BRENDA Primary Care Unavailable ALIE, NAZ M Attending Unavailable REDDY, BRENDA Primary Care Unavailable REDDY, BRENDA Primary Care Unavailable REDDY, BRENDA Primary Care Unavailable IGOR KIM Referring Unavailable ALIE, ANA Hammonds Attending Unavailable REDDY, BRENDA Primary Care Unavailable REDDY, BRENDA Primary Care Unavailable REDDY, BRENDA Primary Care Unavailable KAVON LOPES Referring Unavailable REDDY, BRENDA Primary Care Unavailable REDDY, BRENDA Primary Care Unavailable PEPE MIHCEL Referring Unavailable REDDY, BRENDA Primary Care Unavailable REDDY, BRENDA Referring Unavailable POWERSCECILIA Nowak Attending Unavailable Reddy MD, Elder Reed Primary Care Provider [facility], [place] Unavailable Dr. Angelita Call MD Primary Care Provider [phone] Dr. Angelita Call MD Attending Provider [phone] Dr. Angelita Call MD Referring Provider [phone] Dr. Rehana Vega MD Attending Provider Dr. Santino Marie DO Attending Provider Dr. Santino Marie DO Referring Provider Dr. Angelita Call MD Primary Care Provider [phone] Dr. Angelita Call MD Attending Provider [phone] Dr. Angelita Call MD Referring Provider [phone] Ander [employer]UX CONSULTANT-CJessica Attending Provider Ander [employer] CONSULTANT-CJessica Referring Provider Oneyda GUERRA, Dr. Goldstein Primary Care Provider Oneyda GURERA, Dr. Goldstein Attending Provider [phone] Oneyda GUERRA, Dr. Goldstein Primary Care Provider Oneyda GUERRA, Dr. Goldstein Referring Provider [phone] Christine HAYDEN, Dr. De Attending Provider Friend DO, Dr. De Other Provider [phone] [facility] Unavailable Miedel, Angelita Referring Unavailable Friend, Santino Attending Unavailable Miedel, Angelita Referring Unavailable Miedel, Stone Primary Care Unavailable FriendSantino Attending Unavailable Miedel, Stone Primary Care Unavailable Miedel, Angelita Referring Unavailable Jessica Worthington Attending Unavailable Mied, Stone Primary Care Unavailable Miedel, Angelita Referring Unavailable Jessica Worthington Attending Unavailable Miedel, Angelita Referring Unavailable Miedel, Stone Primary Care Unavailable Miedel, Angelita Attending Unavailable Miedel, Stone Primary Care Unavailable Miedel, Angelita Attending Unavailable Jessica Worthington Attending Unavailable Jessica Worthington Referring Unavailable Miedel, Stone Primary Care Unavailable Miedel, Stone Primary Care Unavailable Jesisca Worthington Attending Unavailable Jessica Worthington Referring Unavailable Miedel, Angelita Referring Unavailable Miedel, Stone Primary Care Unavailable Miedel, Angelita Attending Unavailable Friend, Santino Consulting Unavailable Friend, Santino Referring Unavailable Miedel, Stone Primary Care Unavailable FriendSantino Attending Unavailable FriendSantino Attending Unavailable Miedel, Stone Primary Care Unavailable Elder Reddy Referring Unavailable Miedel, Stone Primary Care Unavailable Miedel, Angelita Referring Unavailable Friend, Santino Attending Unavailable Friend, Santino Consulting Unavailable Miedel, Stone Primary Care Unavailable Jessica Worthington Attending Unavailable Jessica Worthington Referring Unavailable Miedel, Stone Primary Care Unavailable Friend, Santino Attending Unavailable Friend, Santino Referring Unavailable Miedel, Angelita Primary Care Unavailable Friend, Santino Attending Unavailable Miedel, Angelita Referring Unavailable Miedel, Angelita Primary Care Unavailable Miedel, Angelita Attending Unavailable Friend, Santino Referring Unavailable Miedel, Angelita Primary Care Unavailable Friend, Santino Attending Unavailable Miedel, Angelita Primary Care Unavailable Friend, Santino Attending Unavailable Miedel, Angelita Referring Unavailable Miedel, Angelita Primary Care Unavailable Miedel, Angelita Referring Unavailable Miedel, Angelita Attending Unavailable Miedel, Angelita Primary Care Unavailable Rehana Vega Attending Unavailable Miedel, Angelita Primary Care Unavailable Miedel, Angelita Attending Unavailable Miedel, Angelita Primary Care Unavailable Rehana Vega Attending Unavailable Miedel, Angelita Primary Care Unavailable Miedel, Angelita Referring Unavailable Teja Dick Attending Unavailable Medications Current Medications Medication Drug Class(es) Dates Sig (Normalized) Sig (Original) atorvastatin 20 mg oral tablet (20 sources) HMG-CoA Reductase Inhibitor Start: 03-24-2023 take 1 tablet by mouth at bedtime Atorvastatin 20 mg tablet Active 20 mg PO AT BEDTIME July 06, 2023 12:00am Start: 06-01-2022 End: 07-06-2023 take 2 tablets by mouth once daily Atorvastatin 10 mg tablet Discontinued 20 mg PO DAILY June 01, 2022 12:00am July 06, 2023 3:14am cholesterol Start: 06-01-2022 End: 07-06-2023 take 20 mg [...] (dry eyes). carvedilol 6.25 mg oral tablet (17 sources) alpha-Adrener gic Rufina, beta-Adrenerg ic Rufina [...] with meals. furosemide 40 mg oral tablet (6 sources) Loop Diuretic Start: take 1 tablet by mouth once daily Furosemide (Lasix) 40 mg tablet Active 40 mg PO daily July 04, 2024 12:00am Inhalational Spacing Device (1 source) Start: End: Inhalational Spacing Device Indications: Viral bronchitis 1 Device one time only for 1 dose. 1 Each 0 05/03/2023 05/03/2023 Active Comment on above: 1 Device one time on ly for 1 dose. lactulose 667 mg/ml oral solution (20 sources) Osmotic Laxative Start: take 20 g [...] solution Discontinued 10 g PO DAILY 473 3 July 22, 2023 12:00am November 25, 2023 11:04am Start: 07-22-2023 End: 11-25-2023 take 10 g by mouth once daily Lactulose 10 gram/15 mL solution Discontinued 10 g PO DAILY 473 July 22, 2023 12:00am November 25, 2023 11:04am levothyroxine sodium 0.05 mg oral capsule (6 sources) l-Thyroxine Start: 07-04-2024 take 1 capsule by mouth once daily Levothyroxine 50 mcg capsule Active 50 ug PO daily July 04, 2024 12:00am linagliptin 5 mg oral tablet (6 sources) Dipeptidyl Peptidase 4 Inhibitor Start: 07-04-2024 take 1 tablet by mouth once daily Linagliptin (Tradjenta) 5 mg tablet Active 5 mg PO daily July 04, 2024 12:00am polyethylene glycol 3350 438277 mg / potassium chloride 2970 mg / sodium bicarbonate 6740 mg / sodium chloride 5860 mg / sodium sulfate 65656 mg powder for oral solution (2 sources) Osmotic Laxative Start: 08-13-2024 Peg 3350-Electrolytes (Golytely) 236-22.74-6.74 -5.86 gram recon soln Active 240 mL PO Q10M 4000 0 August 13, 2024 12:00am as directed for split dose bowel prep spironolactone 100 mg oral tablet (6 sources) Aldosterone Antagonist Start: 07-04-2024 take 1 tablet by mouth once daily in the morning Spironolactone (Aldactone) 100 mg tablet Active 100 mg PO EVERY MORNING 90 1 July 04, 2024 12:00am take one tablet daily in the morning Completed/Discontinued Medications Medication Drug Class(es) Dates Sig (Normalized) Sig (Original) [id number] 200 actuat albuterol 0.09 mg/actuat metered dose inhaler (20 sources) beta2-Adrenergic Agonist Start: 08-27-2023 End: 07-04-2024 Albuterol Sulfate (Ventolin Hfa) 90 mcg/actuation HFA aerosol inhaler Discontinued 1 - 2 NMA INHALATION EVERY 4 HOURS NEEDED as needed for Wheezing/SOB 1 0 August 27, 2023 12:00am July 04, 2024 [...] tablet (20 sources) Bisphosphonate Start: 023 End: 025 take 1 tablet by mouth every week Alendronate 70 mg tablet Discontinued 70 mg PO EVERY WEEK July 06, 2023 12:00am July 04, 2024 11:58am Comment on above: Take 1 tablet by tiffanie th one time a week. Take with a full glass of water, on an empty stomach; do NOT lie down for 30minutes. amLODIPine 5 mg oral tablet (16 sources) Dihydropyridine Calcium Channel Rufina Start: End: take 1 tablet by mouth once daily Amlodipine (Norvasc) 5 mg tablet Discontinued 5 mg PO DAILY 30 0 July 09, 2023 12:00am August 10, 2024 9:46am azithromycin 250 mg oral tablet (8 sources) Macrolide Antimicrobial Start: End: Azithromycin 250 mg tablet Discontinued 0 PO .COMPLEX 6 0 August 27, 2023 12:00am September 27, 2023 9:24am For 250 mg dose pack: take 500 mg today (day 1), then 250 mg for 4 days (days 2-5) benzonatate 100 mg oral capsule (9 sources) Non-narcotic Antitussive Start: End: take 1 capsule by mouth three times daily as needed for cough Benzonatate 100 mg capsule Discontinued 100 mg PO THREE TIMES A DAY as needed for cough 30 0 August 27, 2023 12:00am September 27, 2023 9:24am Start: 05-03-2023 End: 05-13-2023 take 2 capsules by mouth three times daily as needed benzonatate (TESSALON PERLE) 100 mg capsule Indications: Viral bronchitis Take 2 capsules by mouth three times a day as needed for up to 10 days. 60 capsule 0 05/03/2023 05/13/2023 Active Comment on above: Take 2 capsules by m out three times a day as needed for up to 10 days. dextran 70 1 mg/ml / hypromellose 3 mg/ml ophthalmic solution (12 sources) Plasma Volume Technical Illustrations Map Inker Start: 06-03-2022 End: 07-06-2023 Dextran 70-Hypromellose (Pf) (Natural Tears (Pf)) 0.1-0.3 % dropperette Discontinued 1 NMA RIGHT EYE EVERY 4 HOURS NEEDED as needed for dry eye(s) 32 0 June 03, 2022 3:16pm July 06, 2023 [...] 1 tablet by tiffanie th as needed. gabapentin 100 mg oral capsule (6 sources) Anti-epileptic Agent Start: 5 End: 5 take 1 capsule by mouth three times daily as needed Gabapentin 100 mg capsule Discontinued 100 mg PO THREE TIMES A DAY as needed July 04, 2024 12:00am October 16, 2024 4:56pm glipiZIDE er 2.5 mg 24 hr extended release oral tablet (20 sources) Sulfonylurea Start: 3 End: 4 take 1 tablet by mouth once daily Glipizide 2.5 mg tablet extended release 24hr Discontinued 2.5 mg PO DAILY June 01, 2022 12:00am July 09, 2023 2:45pm diabetes Start: 04-28-2021 End: 03-17-2022 take 1 tablet [...] ml insulin lispro 100 unt/ml pen injector (13 sources) Insulin Analog Start: 06-03-2022 End: 07-06-2023 Insulin Lispro (Humalog Kwikpen Insulin) 100 unit/mL Insulin Pen Discontinued 0 U SC BEFORE MEALS AND AT BEDTIME 15 0 June 03nd, 2023 12:00am July 06, 2023 3:10am Please contact [...] 01, 2022 12:00am July 06, 2023 3:14am blood pressure Start: 06-01-2022 End: 07-06-2023 take 20 mg [...] 1 tablet by tiffanie th once daily. 24 hr metFORMIN hydrochloride 500 mg extended release oral tablet (20 sources) Biguanide Start: 06-01-2022 End: 07-09-2023 Metformin 500 mg tablet extended release 24 hr Discontinued 1000 mg PO TWICE A DAY June 01, 2022 12:00am July 09, 2023 2:45pm diabetes Start: 02-17-2022 End: 02-18-2022 take 1 tablet [...] Start: 01-07-2021 take 1 tablet by tiffanie th once daily metFORMIN (GLUCOPHAGE) 1,000 mg tablet Take 1,000 mg by mouth once daily. 0 01/07/2021 Active Comment on above: Take 1,000 mg by tiffanie th once daily. Take 2 tablets by mo ut twice daily with meals. Take 1,000 mg by tiffanie th twice daily with meals. Take 1 tablet by tiffanie th twice daily with meals. Take 2 tablets by mo uth two times a day with meals. metoclopramide 5 mg oral tablet (20 sources) Dopamine-2 Receptor Antagonist Start: End: take 1 tablet by mouth three times daily 1 hour(s) before mealtime Metoclopramide Hcl (Reglan) 5 mg tablet Discontinued 5 mg PO THREE TIMES A DAY 90 July 22, 2023 3:29pm November 25, 2023 11:04am one hour before meals neomycin sulfate 500 mg oral tablet (8 sources) Aminoglycoside Antibacterial Start: End: take 1 tablet by mouth twice daily Neomycin 500 mg tablet Discontinued 500 mg PO TWICE A DAY 60 3 July 22, 2023 12:00am July 04, 2024 11:58am take by mouth twice a day pantoprazole 40 mg delayed release oral tablet (20 sources) Proton Pump Inhibitor Start: End: take 1 tablet by mouth once daily Pantoprazole (Protonix) 40 mg tablet,delayed release (DR/EC) Discontinued 40 mg PO DAILY 30 November 25, 2023 11:04am July 04, 2024 11:02am Start: 07-09-2023 End: 07-22-2023 take 1 tablet by mouth twice daily Pantoprazole (Protonix) 40 mg tablet,delayed release (DR/EC) Discontinued 40 mg PO TWICE A DAY 60 0 July 09, 2023 12:00am July 22, 2023 3:33pm Start: 06-03-2022 End: 07-06-2023 take 1 tablet by mouth once daily Pantoprazole (Protonix) 40 mg tablet,delayed release (DR/EC) Discontinued 40 mg PO DAILY 30 0 June 03, 2022 12:00am July 06, 2023 3:10am Comment on above: Take by mouth. Take 40 mg by mouth once daily as needed. Take 1 tablet by tiffanie th once daily as needed. Peg 3350-Sod Sulf,Xugw-Jol-Bde (Suflave) 178.7-7.3-0.5 gram recon soln (3 sources) Start: 08-10-2024 End: 08-13-2024 Peg 3350-Sod Sulf,Ksgb-Nvr-Gkv (Suflave) 178.7-7.3-0.5 gram recon soln Discontinued 0 PO .COMPLEX 2 0 August 10, 2024 12:00am August 13, 2024 10:40am as directed for split dose bowel prep Start: 08-10-2024 End: 08-13-2024 Peg 3350-Sod Sulf,Chlr-Pot-M ag (Suflave) 178.7-7.3-0.5 gram recon soln Discontinued 0 PO .COMPLEX 2 August 10, 2024 12:00am August 13, 2024 10:40am as directed for split dose bowel prep Start: 08-10-2024 Peg 3350-Sod S ulf,Jhda-Ext-Qwk (Suflave) 178.7-7.3-0.5 gram recon soln Active 0 [...] mg tablet Discontinued 20 mg PO DAILY 5 5 0 August 27, 2023 12:00am September 27, 2023 [...] Tablet Discontinued 60 mg PO WITH BREAKFAST 21 7 0 June 03, 2022 12:00am July 06, 2023 [...] 550 mg PO TWICE A DAY 60 0 November 25, 2023 11:04am July 04, 2024 11:03am tropicamide 10 mg/ml ophthalmic solution (2 sources) Anticholinergic Start: 06-24-19 End: 06-24-19 tropicamide 1 % 1 Drop (MYDRIACYL) Start: 07-28-2021 End: 07-28-2021 tropicamide 1 % 1 Drop (MYDR IACYL) valACYclovir 1000 mg oral tablet (17 sources) Herpesvirus Nucleoside Analog DNA Polymerase Inhibitor, Herpes Simplex Virus Nucleoside Analog DNA Polymerase Inhibitor, Herpes Zoster Virus Nucleoside Analog DNA Polymerase Inhibitor Start: 06-03-2022 End: 06-23-2022 valACYclovir (VALTREX) 1 gram Take by mouth. 0 06/03/2022 06/23/2022 Discontinued (Course of therapy completed) Start: 06-03-2022 End: 07-06-2023 Valacyclovir 1 gram tablet Discontinued 1000 mg PO Q8H 7 0 June 03, 2022 12:00am July 06, 2023 3:10am Start: 06-03-2022 End: 07-06-2023 take 1000 mg by mouth every eight hours Valacyclovir Discontinued 1000 MG PO Q8H 7 June 03, 2022 12:00am July 06, 2023 3:10am Comment on above: Take by mouth. Problems Active Problems Problem Classification Problem Date Documented Da te Episodic/Chronic Abdominal pain (15 sources) Abdominal pain; Translations: [Unspecified abdominal pain] Onset: 10-24-2024 07-04-2024 Episodic Acute and unspecified renal failure [...] Chronic Chronic obstructive pulmonary disease and bronchiectasis (8 sources) Bronchitis; Translations: [Bronchitis, not specified as acute or chronic] 09-04-2023 Episodic Coagulation and hemorrhagic disorders (20 sources) Platelet count below reference range; Translations: [Thrombocytopenia, unspecified] Onset: 08-05-2021 08-05-2021 Chronic Deficiency and other anemia (6 sources) Pancytopenia; Translations: [Other pancytopenia] 08-10-2024 Chronic Deficiency and other anemia (2 sources) Other pancytopenia; Translations: [Other pancytopenia] Onset: 08-10-2024 Chronic Diabetes mellitus without complication (20 sources) Type 2 diabetes mellitus without complication; Translations: [Type 2 diabetes mellitus without complications] Onset: 04-28-2021 Chronic Diabetes mellitus without complication (1 source) Hyperglycemia; Translations: [Hyperglycemia, unspecified] Episodic Disorders of lipid metabolism (20 sources) Pure hypercholesterolemia; Translations: [Pure hypercholesterolemia, unspecified] Onset: 11-10-2019 Chronic E Codes: Adverse effects of medical drugs (13 sources) Adverse reaction to drug; Translations: [Adverse effect of unspecified drugs, medicaments and biological substances, initial encounter] 07-06-2023 Episodic Esophageal disorders (10 sources) Esophageal varices without bleeding; Translations: [Esophageal varices without bleeding] Onset: 07-13-2023 07-13-2023 Chronic Essential hypertension (20 sources) Essential hypertension; Translations: [Essential (primary) hypertension] Onset: 07-23-2021 Chronic Fracture of upper limb (8 sources) Fracture of distal end of right [...] diseases] Onset: 02-02-2020 Episodic Nausea and vomiting (13 sources) Nausea, vomiting and diarrhea; Translations: [Nausea with vomiting, unspecified] 07-06-2023 Episodic Other aftercare (1 source) Patient encounter status; Translations: [Other terminal supervisor (current) drug therapy] Episodic Other circulatory disease (14 sources) H/O: hypertension; Translations: [Personal history of other diseases of the circulatory system] 06-01-2022 Episodic Other circulatory disease (2 sources) Personal history of other diseases of the circulatory system; Translations: [Personal history of other diseases of circulatory system] 06-01-2022 Episodic Other connective tissue disease (13 sources) Weakness of face muscles; Translations: [Facial [...] Translations: [Diarrhea, unspecified] Episodic Other gastrointestinal disorders (13 sources) Swollen abdomen; Translations: [Abdominal distension (gaseous)] 07-04-2024 Episodic Other gastrointestinal disorders (2 sources) Abdominal distension (gaseous); Translations: [Abdominal distension (gaseous)] Onset: 07-04-2024 Episodic Other injuries and conditions due [...] [Fasciculation] 02-23-2023 Episodic Other non-traumatic joint disorders (8 sources) Pain in wrist; Translations: [Pain in right wrist] 09-27-2023 Episodic Other nutritional; endocrine; and metabolic disorders (20 sources) Obese class II; Translations: [Obesity, unspecified] Onset: 07-23-2021 Chronic Other nutritional; endocrine; and metabolic disorders (11 sources) Hyperbilirubinemia; Translations: [Other disorders of bilirubin [...] right ear] Onset: 11-30-2022 11-30-2022 Episodic Other hematologic conditions (2 sources) Personal [...] Episodic Other nervous system disorders (20 sources) 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, [address] Colonoscopy Reporton 025 Colonoscopy Report [facility] Medical Records Department [address] [place] [address] Colonoscopy Report MR#: [id number] Acct: [id number] Name: MACY MORALES Rep #: [id number] : 1955 69 From: Santino Marie DO PCP: Dr. Angelita Call MD Status:REG [facility] Patient Name: Macy Morales Procedure Date: 10/18/2024 8:23 AM Date of : 1955 Age: 69 Procedure: Colonoscopy Indications: Generalized abdominal pain Providers: Santino Marie DO Medicines: Monitored Anesthesia Care Patient Profile: This is a 69 year old female. Refer to note in patient chart for documentation of history and physical. Patient has symptoms of acute epigastric abdominal pain, acute dyspepsia and acute nausea. Her most recent EGD for biopsy was within the past six months. Last Colonoscopy: 5 years ago. Complications: No immediate complications. Procedure: Pre-Anesthesia Assessment: - Prior to the procedure, a History and Physical was performed, and patient medications and allergies were reviewed. The patient is competent. The risks and benefits of the procedure and the sedation options and risks were discussed with the patient. All questions were answered and informed consent was obtained. Patient identification and proposed procedure were verified by the physician in the pre-procedure area. Mental Status Examination: alert and oriented. Airway Examination: normal oropharyngeal airway and neck mobility. Respiratory Examination: clear to auscultation. CV Examination: normal. Prophylactic Antibiotics: The patient does not require prophylactic antibiotics. Prior Anticoagulants: The patient has taken no anticoagulant or antiplatelet agents. ASA Grade Assessment: III - A patient with severe systemic disease. After reviewing the risks and benefits, the patient was deemed in satisfactory condition to undergo the procedure. The anesthesia plan was to use monitored anesthesia care (MAC). Immediately prior to administration of medications, the patient was re-assessed for adequacy to receive sedatives. The heart rate, respiratory rate, oxygen saturations, blood pressure, adequacy of pulmonary ventilation, and response to care were monitored throughout the procedure. The physical status of the patient was re-assessed after the procedure. After I obtained informed consent, the scope was passed under direct vision. Throughout the procedure, the patient's blood pressure, pulse, and oxygen saturations were monitored continuously. The Colonoscope was introduced through the anus and advanced to the cecum, identified by appendiceal orifice and ileocecal valve. The quality of the bowel preparation was fair. The ileocecal valve, appendiceal orifice, and rectum were photographed. Scope In: 8:25:02 AM Scope Withdrawal Time 0 hours 5 minutes 16 seconds Scope Out: 8:33:42 AM Total Procedure Duration Time 0 hours 8 minutes 40 seconds Findings: The perianal and digital rectal examinations were normal. Multiple small-mouthed diverticula were found in the recto-sigmoid colon, sigmoid colon and descending colon. Three sessile polyps were found in the sigmoid colon, hepatic flexure and ascending colon. The polyps were 10 mm in size. These polyps were removed with a jumbo cold forceps. Resection and retrieval were complete. Verification of patient identification for the specimen was done. Estimated blood loss was minimal. Stool was found in the rectum, in the recto-sigmoid colon, in the sigmoid colon, in the transverse colon, at the hepatic flexure, in the ascending colon and in the cecum. Impression: - Preparation of the colon was fair. - Diverticulosis in the recto-sigmoid colon, in the sigmoid colon and in the descending colon. - Three 10 mm polyps in the sigmoid colon, at the hepatic flexure and in the ascending colon, removed with a jumbo cold forceps. Resected and retrieved. - Stool in the rectum, in the recto-sigmoid colon, in the sigmoid colon, in the transverse colon, at the hepatic flexure, in the ascending colon and in the cecum. Recommendation: - Discharge patient to home. - Resume previous diet. - Continue present medications. - Await pathology results. - Repeat colonoscopy because the bowel preparation was poor. Procedure Code(s): --- Professional --- 55867, Colonoscopy, flexible; with biopsy, single or multiple CPT copyright 2021 [employer]. All rights reserved. The codes documented in this report are preliminary and upon therapeutic case manager review may be revised to meet current compliance requirements. Santino Marie DO 10/18/2024 8:46:32 AM This report has been signed electronically. Number of Addenda: 0 Note Initiated On: 10/18/2024 8:23 AM 10/18/24 0846 Date Santino Marie DO Jerry Andrade (more content not included)... Normal [facility] EGD Reporton 10-18-2024 EGD Report [facility] Medical Records Department [address] [place] [address] EGD Report MR#: [id number] Acct: [id number] Name: MACY MORALES Rep #: [id number] : 1955 69 From: Santino Marie DO PCP: Dr. Angelita Call MD Status:[facility] Patient Name: Macy Morales Procedure Date: 10/18/2024 8:04 AM Date of : 1955 Age: 69 Procedure: Upper GI endoscopy Indications: Epigastric abdominal pain, Functional Dyspepsia, Indigestion, Esophageal varices with bleeding, Follow-up of esophageal varices with bleeding Providers: Santino Marie DO Medicines: Monitored Anesthesia Care Patient Profile: This is a 69 year old female. Refer to note in patient chart for documentation of history and physical. Patient has symptoms of acute epigastric abdominal pain, acute dyspepsia and acute nausea. Her most recent EGD for biopsy was within the past six months. Complications: No immediate complications. Procedure: Pre-Anesthesia Assessment: - Prior to the procedure, a History and Physical was performed, and patient medications and allergies were reviewed. The patient is competent. The risks and benefits of the procedure and the sedation options and risks were discussed with the patient. All questions were answered and informed consent was obtained. Patient identification and proposed procedure were verified by the physician in the pre-procedure area. Mental Status Examination: alert and oriented. Airway Examination: normal oropharyngeal airway and neck mobility. Respiratory Examination: clear to auscultation. CV Examination: normal. Prophylactic Antibiotics: The patient does not require prophylactic antibiotics. Prior Anticoagulants: The patient has taken no anticoagulant or antiplatelet agents. ASA Grade Assessment: III - A patient with severe systemic disease. After reviewing the risks and benefits, the patient was deemed in satisfactory condition to undergo the procedure. The anesthesia plan was to use monitored anesthesia care (MAC). Immediately prior to administration of medications, the patient was re-assessed for adequacy to receive sedatives. The heart rate, respiratory rate, oxygen saturations, blood pressure, adequacy of pulmonary ventilation, and response to care were monitored throughout the procedure. The physical status of the patient was re-assessed after the procedure. After obtaining informed consent, the endoscope was passed under direct vision. Throughout the procedure, the patient's blood pressure, pulse, and oxygen saturations were monitored continuously. The Colonoscope was introduced through the mouth, and advanced to the third part of the duodenum. Small bowel enteroscopy was deemed necessary. The upper GI endoscopy was accomplished without difficulty. The patient tolerated the procedure well. Scope In: 8:19:47 AM Scope Out: 8:23:36 AM Total Procedure Duration Time 0 hours 3 minutes 49 seconds Findings: Small (< 5 mm) varices were found in the lower third of the esophagus. They were 5 mm in largest diameter. Severe portal hypertensive gastropathy was found in the entire examined stomach. Biopsies were taken with a cold forceps for histology. Verification of patient identification for the specimen was done. Estimated blood loss was minimal. Biopsies were taken with a cold forceps for Helicobacter pylori testing. Verification of patient identification for the specimen was done. Estimated blood loss was minimal. A benign-appearing, intrinsic moderate stenosis was found at the pylorus. This was traversed. Diffuse moderate inflammation was found in the entire duodenum. Impression: - Small (< 5 mm) esophageal varices. - Portal hypertensive gastropathy. Biopsied. - Gastric stenosis was found at the pylorus. - Chronic duodenitis. Recommendation: - Discharge patient to home. - Resume previous diet. - Continue present medications. - Await pathology results. - Repeat upper endoscopy in 3 months for surveillance. Procedure Code(s): --- Professional --- 08197, Small intestinal endoscopy, enteroscopy beyond second portion of duodenum, not including ileum; with biopsy, single or multiple CPT copyright 2021 [employer]. All rights reserved. The codes documented in this report are preliminary and upon therapeutic case manager review may be revised to meet current compliance requirements. Santino Marie DO 10/18/2024 8:40:16 AM This report has been signed electronically. Number of Addenda: 0 Note Initiated On: 10/18/2024 8:04 AM 10/18/24 0840 Date Santino Gonzalez Signature: Date (if indicated) CC: Dr. Angelita Call MD; Santino Marie, Date Dictated: 10/18/24803 Date Transcribed (more content not included)... Normal [facility] Gl[facility] at [facility] deOrdered By: Santino Marie on 10-18-2024 Glucose [Mass/Vol] 118 mg/dL High 74-106 [facility] Comment on above: MANAGEMENT OF PATIEN T CARE PER NURSING PROTOCOL Immunohistochemical Stainson 10-18-2024 Immunohistochemical Stains Patient Age/Sex Location Account Attending Physician MACY MORALES 69/F EN [id number] Santino Marie DO Specimen: [id number] Received: 10/18/24 Status: LIBBY Magaña Num: [id number] Spec Type: EGD BIOPSY Subm Dr: Santino Marie DO HEADER OPERATION: Colonoscopy, EGD and biopsy and polypectomy PRE-OP DIAGNOSIS: Cirrhosis, pancytopenia, screening for colon cancer TISSUE SUBMITTED: A- Gastric body biopsy, B- Duodenum biopsy, C- Hepatic flexure polyp, D- Ascending colon polyp, E- Sigmoid colon polyp MICROSCOPIC DIAGNOSIS A. Stomach, gastric body, biopsies: - Fundic mucosa with slight chronic inflammation - An immunohistochemical stain for Helicobacter pylori is negative B. 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 Large intestine, hepatic flexure polyp: - Tubular adenoma D. Large intestine, ascending polyp: - Tubular adenoma E. Large intestine, sigmoid polyp: * Tubular adenoma MICROSCOPIC DESCRIPTION Slides are reviewed. All matched controls reacted appropriately. These tests were developed and their performance characteristics determined by [facility]. They may not have been cleared or approved by the U.S. Food and Drug Administration. The FDA has determined that such clearance or approval is not necessary. The above immunohistochemical/dualI SH markers are viewed by the Pathologist. GROSS DESCRIPTION A. Received in fixative in one container labeled with the patient's name and designated Gastric body biopsy. The specimen consists of two irregular fragments of light gant soft tissue, each measuring 0.3 cm. The specimen is totally submitted in one cassette. B. Received in fixative in one container labeled with the patient's name and designated Duodenum biopsy. The specimen consists of one irregular fragment of light gant soft tissue that measures 0.4 cm. The specimen is totally submitted in one cassette. C. Received in fixative in one container labeled with the patient's name and designated Hepatic flexure polyp. The specimen consists of one irregular fragment of light gant soft Patient Age/Sex Location Account Attending Physician MACY MORALES 69/F EN [id number] Santino Marie DO tissue that measures 0.5 cm. The specimen is totally submitted in one cassette. D. Received in fixative in one container labeled with the patient's name and designated Ascending colon polyp. The specimen consists of one irregular fragment of light gant soft tissue that measures 0.3 cm. The specimen is totally submitted in one cassette. E. Received in fixative in one container labeled with the patient's name and designated Sigmoid colon polyp. The specimen consists of two irregular fragments of light gant soft tissue that measure 0.2 and 0.3 cm. The specimen is totally submitted in one cassette. [place] 10/18/2024 [facility]:[id number] Patient Age/Sex Location Account Attending Physician MACY MORALES / EN [id number] Santino Marie DO Signed (signature on file) Dr. Jamin Cesar MD 10/24/24 0931 Normal [facility] Comment on above: Performed By: #### L 300.3900, L101.9900, L300.4310, L500.4050, L501.6710, L3300.0700, L100.0100 #### [facility] [address] [place], [place], [id number] MR/OP.PROVATon 10-18-2024 MR/OP.[facility] Medical Records Department [address] [place] [address] Provation Physician Letter MR#: [id number] Acct: [id number] Name: MACY MORALES Rep #: [id number] : 1955 69 From: Santino Marie DO PCP: Dr. Angelita Call MD Status:[facility] 10/18/2024 Angelita Call [address] [address] Re : Colonoscopy procedure for Macy Morales Dear Dr. Call This procedure was performed on Friday, October 18, 2024. My impressions and recommendations are as follows: Impressions : - Preparation of the colon was fair. - Diverticulosis in the recto-sigmoid colon, in the sigmoid colon and in the descending colon. - Three 10 mm polyps in the sigmoid colon, at the hepatic flexure and in the ascending colon, removed with a jumbo cold forceps. Resected and retrieved. - Stool in the rectum, in the recto-sigmoid colon, in the sigmoid colon, in the transverse colon, at the hepatic flexure, in the ascending colon and in the cecum. Recommendations : - Discharge patient to home. - Resume previous diet. - Continue present medications. - Await pathology results. - Repeat colonoscopy because the bowel preparation was poor. My findings are described in the full procedure note, which is enclosed. If I can be of further assistance, please feel free to contact me at . Sincerely, Santino Marie DO 10/18/2024 8:46:32 AM This report has been signed electronically. 10/18/24 0846 Date Santino Gonzalez Signature: Date (if indicated) CC: Dr. Angelita Call MD; Santino Marie DO Date Dictated: 10/18/24822 Date Transcribed: Manager Support: ARTI Signed Normal [facility] MR/OP.[facility] Medical Records Department [address] [place] [address] Provation Physician Letter MR#: [id number] Acct: [id number] Name: MACY MORALES Rep #: [id number] : 1955 69 From: Santino Marie DO PCP: Dr. Angelita Call MD Status:[facility] 10/18/2024 Angelita Call [address] [address] Re : Upper GI endoscopy procedure for Macy Morales Dear Dr. Call This procedure was performed on Wednesday, October 18, 2024. My impressions and recommendations are as follows: Impressions : - Small (< 5 mm) esophageal varices. - Portal hypertensive gastropathy. Biopsied. - Gastric stenosis was found at the pylorus. - Chronic duodenitis. Recommendations : - Discharge patient to home. - Resume previous diet. - Continue present medications. - Await pathology results. - Repeat upper endoscopy in 3 months for surveillance. My findings are described in the full procedure note, which is enclosed. If I can be of further assistance, please feel free to contact me at . Sincerely, Santino Marie DO 10/18/2024 8:40:16 AM This report has been signed electronically. 10/18/24839 Date Santino Jacquesigner Signature: Date (if indicated) CC: Dr. Angelita Call MD; Santino Marie DO Date Dictated: 10/18/24 0804 Date Transcribed: Manager Support: ARTI Signed [facility] MR/POSTOP.[place] 10-18-2024 MR/POSTOP.[facility] Medical Records Department [address] [place] [address] Anesthesia Postop Eval I 10/18/24843 MR#: [id number] Acct: [id number] Name: MACY MORALES Rep #: [id number] : 1955 69 From: Shane Nair PCP: Dr. Angelita Call MD Status:[facility] Y Race: H Location: [place] [address] Anesthesia: Postop Eval I Current Vital Signs Temperature: 97.8 F Pulse Rate: 78 Blood Pressure: 123/56 Respiratory Rate: 16 Pulse Ox: 99 Oxygen Delivery Method: Room Air Assessment Airway patent: Yes Spontaneous unlabored respirations: Yes Mental status: Asleep nausea: No Vomiting: No Anesthesia Complication: No Fluid Hydration Crystalloid volume administer (ml): 400 Total IV fluid infused: 400 Progress Note Anesthesia document: Postop Eval 1 completed: Yes 10/18/24 0845 Date Shane Edwards Signature: Date CC: Signed [facility] MR/PAT.[place] 10-16-2024 MR/PAT.[facility] Medical Records Department [address] [place] [place] [address] PAT - Anesthesia 10/16/242020 MR#: [id number] Acct: [id number] Name: MACY MORALES Rep #: [id number] : 1955 69 From: Jhoan Frost MD PCP: Dr. Angelita Call MD Status:PRE [facility] Y Race: H Location: Pre-Assessment Diagnosis/Proposed Procedure Planned Operative Procedure(s): EGD,COLONOSCOPY Anesthesia History Anesthesia History - ui developer designer: Anesthesia History - ui developer designer Hx Hospitalization No 10/16/24 17:00 Any Problems [...] take am of surgery PONV PONV - ui developer designer: PONV - ui developer designer Female Yes 10/16/24 17:00 HX of Motion Sickness No 10/16/24 17:00 HX of N/V After Surgery No 10/16/24 17:00 Non-Smoker Yes 10/16/24 17:00 Duration of Surgery greater No 10/16/24 17:00 than 60 minutes Number of Risk Factors 2 10/16/24 17:00 PONV Score Moderate Risk 10/16/24 17:00 Height Weight Height Weight: Anesthesia: Height Weight Height 5 ft 08/10/24 09:10 Respiratory Assessment Respiratory Assessment - ui developer designer: Respiratory Tract Infection Hx - ui developer designer Hx Respiratory Tract Infection No 10/16/24 17:00 STOP Sleep Apnea STOP Sleep Apnea - ui developer designer: STOP Sleep Apnea - ui developer designer Hx Hypertension Yes 10/16/24 17:00 Hx Sleep [...] Tobacco Use History Tobacco Use History - ui developer designer: Tobacco Use History - ui developer designer Tobacco Use Non-smoker 06/03/22 12:18 Smoking Status Never smoker 10/16/24 17:00 Hx Tobacco Use No 10/16/24 17:00 Years Smoking Packs Smoked per Day Smoking Cessation Date was within the last 15 years Hx Smoking Cessation Date Hx Smoking Cessation No 10/16/24 17:00 Counseling Hematologic Medial History Hematologic Hx - ui developer designer: Hematologic Medical Hx - validation leader Hx of Blood Transfusion No 10/16/24 17:00 Hx of Transfusion in last 3 No 10/16/24 17:00 Months Date of Last Transfusion (if within last 3 months) Ever experience any problems No 10/16/24 17:00 with transfusion(s)? Specify any problems Hx of Preganancy in last 3 No 10/16/24 17:00 Months Nurse Filling Out Transfusion MGRIFFITH 10/16/24 17:00 Questions: Date: 10/16/24 10/16/24 17:00 Time: 17:10/16/24 17:00 Patient unable to answer at this time (ie. confused, unrespo /Reproduction History /Reproductive History - ui developer designer: /Reproductive Hx- ui developer designer Hx Now Gestational Age (in weeks): EDC: Hx Hx Para Hx Section SAB [facility] Medical History (Updated 10/16/24 @ 17:10 by [...] rifaximin 550 (more content not included)... Normal [facility] Hepatitis A AB, Totalon 07-15 0 HEPATITIS A,TOT Positive Abnormal Negative [facility] Comment on above: Result Comment: Comm ent: The HAV total antibody assay detects both IgG and IgM but does not differentiate between them. A negative result suggests susceptibility to infection. A positive result could be due to vaccination, previously resolved infection or active infection. Testing for HAV IgM should be performed if active HAV infection is suspected. [facility] offers profiles that will automatically reflex positive HAV total antibody results to IgM (e.g., panel #[id number] HAV Antibody w/ Rfx). Performed at: [address] [id number] Mortgage Banker: Aaron Ackerman PhD, Phone: [phone] Performed By: #### L 3100.0300, L100.0100, L500.3400, L500.2500, L3890.6202, L501.5101 ####[facility] [address] [place], [place], [id number] L501.5101on 08-11-2024 GGTP 208 IU/L Abnormal 0-60 [facility] Comment on above: Performed By: #### L 3100.0300, L100.0100, L500.3400, L500.2500, L3890.6202, L501.5101 ####[facility] [address] [place], [place], [id number] Absolute lymphocyte countOrd ered By: Jessica Worthington on 08-10-2024 Lymphocytes Auto (Unsp spec) [#/Vol] 0.98 10*3/uL 0.83-4.51 [facility] Absolute neutrophil countOrd ered By: Jessica Worthington on 08-10-2024 Neutrophils (Bld) [#/Vol] 2.8 10*3/uL 2.0-7.7 [facility] Anion gap in Serum or Plasma Ordered By: Jessica Worthington on 08-10-2024 Anion gap [Moles/Vol] 10 mmol/L 5-15 [facility] Automated lymphocyte count a s percentage of total leukocytesOrdered By: Jessica Worthington on 08-10-2024 Lymphocytes/100 WBC Auto (Unsp spec) 21.7 % [facility] BUN/creatinine ratioOrdered By: Jessica Worthington on 08-10-2024 Urea nitrogen/Creatinine [Mass ratio] 17.3 mg/mg - [facility] Basic Metabolic Profile (BMP )on 08-10-2024 BUN/CRE 17.3 RATIO Normal 01-01 [facility] Comment on above: Performed By: #### L 3100.0300, L100.0100, L500.3400, L500.2500, L3890.6202, L501.5101 ####[facility] [address] [place], [address] Calcium [Mass/Vol] 9.2 mg/dL Normal 7.6-11.0 [facility] Comment on above: Performed By: #### L 3100.0300, L100.0100, L500.3400, L500.2500, L3890.6202, L501.5101 ####[facility] [address] [place], [address] Chloride [Moles/Vol] 101 mmol/L Normal 98-108 [facility] Comment on above: Performed By: #### L 3100.0300, L100.0100, L500.3400, L500.2500, L3890.6202, L501.5101 ####[facility] [address] [place], [address] CO2 [Moles/Vol] 22.6 mmol/L Normal 21.0-32.0 [facility] Comment on above: Performed By: #### L 3100.0300, L100.0100, L500.3400, L500.2500, L3890.6202, L501.5101 ####[facility] [address] [place], [address] Creatinine [Mass/Vol] 0.86 mg/dL Normal 0.70-1.20 [facility] Comment on above: Performed By: #### L 3100.0300, L100.0100, L500.3400, L500.2500, L3890.6202, L501.5101 ####[facility] [address] [place], [address] GAP 10 Normal 5-15 [facility] Comment on above: Performed By: #### L 3100.0300, L100.0100, L500.3400, L500.2500, L3890.6202, L501.5101 ####[facility] [address] [place], [address] GFR/1.73 sq M.predicted among non-blacks MDRD (S/P/Bld) [Vol rate/Area] 75 mL/min/{1.73_m2} Normal >60 [facility] Comment on above: Result Comment: mL/m in/1.73m2 CKD-EPI Creatinine Equation (2020) Performed By: #### L 3100.0300, L100.0100, L500.3400, L500.2500, L3890.6202, L501.5101 ####[facility] [address] [place], [address] Glucose [Mass/Vol] 152 mg/dL High 70-99 [facility] Comment on above: Performed By: #### L 3100.0300, L100.0100, L500.3400, L500.2500, L3890.6202, L501.5101 ####[facility] [address] [place], [address] Potassium [Moles/Vol] 5.0 mmol/L Normal 3.3-5.1 [facility] Comment on above: Performed By: #### L 3100.0300, L100.0100, L500.3400, L500.2500, L3890.6202, L501.5101 ####[facility] [address] [place], [address] Sodium [Moles/Vol] 134 mmol/L Normal 133-145 [facility] Comment on above: Performed By: #### L 3100.0300, L100.0100, L500.3400, L500.2500, L3890.6202, L501.5101 ####[facility] [address] [place], [address] Urea nitrogen [Mass/Vol] 15 mg/dL Normal 4-19 [facility] Comment on above: Performed By: #### L 3100.0300, L100.0100, L500.3400, L500.2500, L3890.6202, L501.5101 ####[facility] [address] [place], [address] Basophil percentageOrdered B y: Jessica Worthington on 08-10-2024 Basophils/100 WBC (Bld) 0.9 % 0-1 [facility] Bilirubin directOrdered By: Jessica Worthington on 08-10-2024 Bilirubin.direct [Mass/Vol] 1.03 mg/dL High 0.00-0.30 [facility] Bilirubin, totalOrdered By: Jessica Worthington on 08-10-2024 Bilirubin [Mass/Vol] 1.79 mg/dL High 0.00-1.30 [facility] CBC W/Diff, Automatedon 07-14 Absolute Lymph 0.98 X10 3/uL Normal 0.83-4.51 [facility] Comment on above: Performed By: #### L 3100.0300, L100.0100, L500.3400, L500.2500, L3890.6202, L501.5101 ####[facility] [address] [place], [address] Absolute Neut 2.8 X10 3/uL Normal 2.0-7.7 [facility] Comment on above: Performed By: #### L 3100.0300, L100.0100, L500.3400, L500.2500, L3890.6202, L501.5101 ####[facility] [address] [place], [address] Basophils/100 WBC (Bld) 0.9 % Normal 0-1 [facility] Comment on above: Performed By: #### L 3100.0300, L100.0100, L500.3400, L500.2500, L3890.6202, L501.5101 ####[facility] [address] [place], [address] Eosinophils/100 WBC (Bld) 4.4 % Normal 0-5 [facility] Comment on above: Performed By: #### L 3100.0300, L100.0100, L500.3400, L500.2500, L3890.6202, L501.5101 ####[facility] [address] [place], [address] Erythrocyte distribution width (RBC) [Ratio] 14.9 % High 11.6-14.6 [facility] Comment on above: Performed By: #### L 3100.0300, L100.0100, L500.3400, L500.2500, L3890.6202, L501.5101 ####[facility] [address] [place], [address] Hematocrit (Bld) [Volume fraction] 38.8 % Normal 37-47 [facility] Comment on above: Performed By: #### L 3100.0300, L100.0100, L500.3400, L500.2500, L3890.6202, L501.5101 ####[facility] [address] [place], [address] Hemoglobin (Bld) [Mass/Vol] 13.1 g/dL Normal 12.0-15.0 [facility] Comment on above: Performed By: #### L 3100.0300, L100.0100, L500.3400, L500.2500, L3890.6202, L501.5101 ####[facility] [address] [place], [address] IG% 0.400 Normal 0.0-0.9 [facility] Comment on above: Result Comment: IG% - Immature Granulocytes (promyelocytes, myelocytes and metamyelocytes) > 1% indicates that a LEFT SHIFT is Present. Performed By: #### L 3100.0300, L100.0100, L500.3400, L500.2500, L3890.6202, L501.5101 ####[facility] [address] [place], [address] Lymphocytes/100 WBC (Bld) 21.7 % Normal 19-41 [facility] Comment on above: Performed By: #### L 3100.0300, L100.0100, L500.3400, L500.2500, L3890.6202, L501.5101 ####[facility] [address] [place], [address] MCH (RBC) [Entitic mass] 31.3 pg Normal 27.0-32.0 [facility] Comment on above: Performed By: #### L 3100.0300, L100.0100, L500.3400, L500.2500, L3890.6202, L501.5101 ####[facility] [address] [place], [address] MCHC (RBC) [Mass/Vol] 33.8 g/dL Normal 32-36 [facility] Comment on above: Performed By: #### L 3100.0300, L100.0100, L500.3400, L500.2500, L3890.6202, L501.5101 ####[facility] [address] [place], [address] MCV (RBC) [Entitic vol] 92.8 fL Normal 81-99 [facility] Comment on above: Performed By: #### L 3100.0300, L100.0100, L500.3400, L500.2500, L3890.6202, L501.5101 ####[facility] [address] [place], [address] Monocytes/100 WBC (Bld) 11.3 % High 0-10 [facility] Comment on above: Performed By: #### L 3100.0300, L100.0100, L500.3400, L500.2500, L3890.6202, L501.5101 ####[facility] [address] [place], [address] Neutrophils/100 WBC (Bld) 61.3 % Normal 47-70 [facility] Comment on above: Performed By: #### L 3100.0300, L100.0100, L500.3400, L500.2500, L3890.6202, L501.5101 ####[facility] [address] [place], [address] Nucleated RBC (Bld) [#/Vol] 0 10*3/uL Normal 0-5 [facility] Comment on above: Performed By: #### L 3100.0300, L100.0100, L500.3400, L500.2500, L3890.6202, L501.5101 ####[facility] [address] [place], [address] Platelet mean volume (Bld) [Entitic vol] 12.7 fL High 6.2-12.0 [facility] Comment on above: Performed By: #### L 3100.0300, L100.0100, L500.3400, L500.2500, L3890.6202, L501.5101 ####[facility] [address] [place], [address] Platelets (Bld) [#/Vol] 58 10*3/uL Low 150-450 [facility] Comment on above: Performed By: #### L 3100.0300, L100.0100, L500.3400, L500.2500, L3890.6202, L501.5101 ####[facility] [address] [place], [address] RBC (Bld) [#/Vol] 4.18 10*6/uL Low 4.2-5.4 [facility] Comment on above: Performed By: #### L 3100.0300, L100.0100, L500.3400, L500.2500, L3890.6202, L501.5101 ####[facility] [address] [place], [address] RDW SD 50.9 fl High 35.1-43.9 [facility] Comment on above: Performed By: #### L 3100.0300, L100.0100, L500.3400, L500.2500, L3890.6202, L501.5101 ####[facility] [address] [place], [address] WBC (Bld) [#/Vol] 4.5 10*3/uL Normal 4.4-11.0 [facility] Comment on above: Performed By: #### L 3100.0300, L100.0100, L500.3400, L500.2500, L3890.6202, L501.5101 ####[facility] [address] [place], [address] Carbon dioxide, total [Moles /volume] in Central venous bloodOrdered By: Jessica Worthington on 08-10-2024 CO2 [Moles/Vol] 22.6 mmol/L 21.0-32.0 [facility] Chloride assayOrdered By: Michael Worthington on 08-10-2024 Chloride [Moles/Vol] 101 mmol/L 98-108 [facility] Eosinophil percentageOrdered By: Jessica Worthington on 08-10-2024 Eosinophils/100 WBC (Bld) 4.4 % 0-5 [facility] Erythrocyte distribution wid th ratioOrdered By: Jessica Worthington on 08-10-2024 Erythrocyte distribution width (RBC) [Ratio] 14.9 % High 11.6-14.6 [facility] Erythrocyte distribution wid th standard deviationOrdered By: Jessica Worthington on 08-10-2024 Erythrocyte distribution width (RBC) [Ratio] 50.9 fl High 35.1-43.9 [facility] Gamma glutamyl transferase ( GGT) measurementOrdered By: Jessica Worthington on 08-10-2024 Amylase [Catalytic activity/Vol] 208 U/L High 0-60 [facility] Gastroenterology Visit Repor ton 08-10-2024 Gastroenterology Visit Report [facility] [address] [place] [address] OFFICE VISIT Date of Service: 08/10/24 MR#: [id number] Acct: [id number] Name: MACY MORALES Rep #: [id number] : 1955 Provider: JENNIFER de la vega Age/Sex: 68/F Location: [facility] Status: Signed Intake Vital Signs 07/04/24 11:13 08/10/24 09:10 Height 5 ft 5 ft Weight: 183 lb 4 oz BMI 35.8 BP 146/80 H Respiration 16 Pulse 69 Pulse Oximetry (%) 98 Oxygen Delivery Method room air Intake Visit Reasons: 1 M FU Chief Complaint: abdominal pain 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 [facility] Medical History (Updated 08/14/24 @ 07:08 by [...] KUB x-ray today 2. ABD Ultrasound call [phone] to schedule 3. Gastric Emptying Study call [phone] to schedule 4. Resume pantoprazole 40mg once daily 5. Daily weights, contact office with >5lb brigitte (more content not included)... Normal [facility] Glomerular filtration rate ( GFR) estimation/1.73 sq m using serum, plasma, or whole bOrdered By: Jessica Worthington on 08-10-2024 GFR/1.73 sq M.predicted among non-blacks MDRD (S/P/Bld) [Vol rate/Area] 75 mL/min/{1.73_m2} >60 [facility] Comment on above: mL/min/1.73m2 CKD-EP I Creatinine Equation (2020) Hematocrit Auto (Bld) [Volum e fraction]Ordered By: Jessica Worthington on 08-10-2024 Hematocrit (Bld) [Volume fraction] 38.8 % 37-47 [facility] Hemoglobin measurementOrdere d By: Jessica Worthington on 08-10-2024 Hemoglobin (Bld) [Mass/Vol] 13.1 g/dL 12.0-15.0 [facility] Hepatitis B Surface Antibody on 08-10-2024 HEP B Surf Ab Non-Reactive Normal [facility] Comment on above: Result Comment: <8.5 mIU/mL: Non-Reactive 8.5<= x <11.5 mIU/mL: Indeterminate >=11.5 mIU/mL: Reactive Non Reactive: Inconsistent with immunity less than <10 mIU/mL Reactive: Consistent with immunity greater than or equal to 10 mIU/mL Performed By: #### L 3100.0300, L100.0100, L500.3400, L500.2500, L3890.6202, L501.5101 ####[facility] [address] [place], [address] Immature granulocytes/100 WB C Auto (Bld)Ordered By: Jessica Worthington on 08-10-2024 Immature granulocytes/100 WBC (Bld) 0.400 % 0.0-0.9 [facility] Comment on above: IG% - Immature Granu locytes (promyelocytes, myelocytes and metamyelocytes) > 1% indicates that a LEFT SHIFT is Present. Laboratory - Chemistry and C hemistry - challengeOrdered By: Jessica Worthington on 08-10-2024 AST [Catalytic activity/Vol] 95 U/L High <32 [facility] Liver Profileon 08-10-2024 Albumin [Mass/Vol] 3.7 g/dL Normal 3.4-4.8 [facility] Comment on above: Performed By: #### L 3100.0300, L100.0100, L500.3400, L500.2500, L3890.6202, L501.5101 ####[facility] [address] [place], [address] ALK PHOS 244 U/L High 35-104 [facility] Comment on above: Performed By: #### L 3100.0300, L100.0100, L500.3400, L500.2500, L3890.6202, L501.5101 ####[facility] [address] [place], [address] ALT [Catalytic activity/Vol] 50 U/L High <=34 [facility] Comment on above: Performed By: #### L 3100.0300, L100.0100, L500.3400, L500.2500, L3890.6202, L501.5101 ####[facility] [address] [place], [address] AST [Catalytic activity/Vol] 95 U/L High <=31 [facility] Comment on above: Performed By: #### L 3100.0300, L100.0100, L500.3400, L500.2500, L3890.6202, L501.5101 ####[facility] [address] [place], [address] Bilirubin [Mass/Vol] 1.79 mg/dL High 0.00-1.30 [facility] Comment on above: Performed By: #### L 3100.0300, L100.0100, L500.3400, L500.2500, L3890.6202, L501.5101 ####[facility] [address] [place], [address] Bilirubin.direct [Mass/Vol] 1.03 mg/dL High 0.00-0.30 [facility] Comment on above: Performed By: #### L 3100.0300, L100.0100, L500.3400, L500.2500, L3890.6202, L501.5101 ####[facility] [address] [place], [address] Globulin (S) [Mass/Vol] 4.1 g/dL Normal 2.2-4.2 [facility] Comment on above: Performed By: #### L 3100.0300, L100.0100, L500.3400, L500.2500, L3890.6202, L501.5101 ####[facility] [address] [place], [address] T PROT 7.8 g/dL Normal 5.9-8.4 [facility] Comment on above: Performed By: #### L 3100.0300, L100.0100, L500.3400, L500.2500, L3890.6202, L501.5101 ####[facility] [address] [place], [address] MCV (mean corpuscular volume ) determinationOrdered By: Jessica Worthington on 08-10-2024 MCV (RBC) [Entitic vol] 92.8 fL 81-99 [facility] Mean corpuscular hemoglobin (MCH) determinationOrdered By: Jessica Worthington on 08-10-2024 MCH (RBC) [Entitic mass] 31.3 pg 27.0-32.0 [facility] Mean corpuscular hemoglobin concentration (MCHC) determinationOrdered By: Jessica Worthington on 08-10-2024 MCHC (RBC) [Mass/Vol] 33.8 g/dL 32-36 [facility] Mean platelet volume determi nationOrdered By: Jessica Worthington on 08-10-2024 Platelet mean volume (Bld) [Entitic vol] 12.7 fL High 6.2-12.0 [facility] Monocyte percentageOrdered B y: Jessica Worthington on 08-10-2024 Monocytes/100 WBC (Bld) 11.3 % High 0-10 [facility] Neutrophil percentageOrdered By: Jessica Worthington on 08-10-2024 Neutrophils/100 WBC (Bld) 61.3 % 47-70 [facility] Nucleated red blood cell per centageOrdered By: Jessica Worthington on 08-10-2024 Nucleated RBC/100 WBC (Bld) [Ratio] 0 % 0-5 [facility] Platelet countOrdered By: Michael Worthington on 08-10-2024 Platelets (Bld) [#/Vol] 58 10*3/uL Low 150-450 [facility] Potassium measurement (mass/ volume)Ordered By: Jessica Worthington on 08-10-2024 Potassium (Unsp spec) [Mass/Vol] 5.0 mmol/L 3.3-5.1 [facility] RBC Auto (Bld) [#/Vol]Ordere d By: Jessica Worthington on 08-10-2024 RBC (Bld) [#/Vol] 4.18 10*6/uL Low 4.2-5.4 [facility] Serum creatinine measurement (mass/volume)Ordered By: Jessica Worthington on 08-10-2024 Creatinine [Mass/Vol] 0.86 mg/dL 0.70-1.20 [facility] Serum globulin measurementOr dered By: Jessica Worthington on 08-10-2024 Globulin (S) [Mass/Vol] 4.1 g/dL 2.2-4.2 [facility] Serum glucose measurement (m ass/volume)Ordered By: Jessica Worthington on 08-10-2024 Glucose [Mass/Vol] 152 mg/dL High 70-99 [facility] Serum hepatitis B virus surf robert antibody detectionOrdered By: Jessica Worthington on 08-10-2024 HBV surface Ab Ql (S) Non-Reactive [facility] Comment on above: <8.5 mIU/mL: Non-[place] ctive8.5<= x <11.5 mIU/mL: Indeterminate>=11.5 mIU/mL: Reactive Non Reactive: Inconsistent with immunity less than <10 mIU/mL Reactive: Consistent with immunity greater than or equal to 10 mIU/mL Serum or plasma alanine adames otransferase (ALT) measurementOrdered By: Jessica Worthington on 08-10-2024 ALT [Catalytic activity/Vol] 50 U/L High <35 [facility] Serum or plasma albumin cheri urement (mass/volume)Ordered By: Jessica Worthington on 08-10-2024 Albumin [Mass/Vol] 3.7 g/dL 3.4-4.8 [facility] Serum or plasma alkaline iban sphatase measurementOrdered By: Jessica Worthington on 08-10-2024 ALP [Catalytic activity/Vol] 244 U/L High 35-104 [facility] Serum or plasma calcium cheri urement (mass/volume)Ordered By: Jessica Worthington on 08-10-2024 Calcium [Mass/Vol] 9.2 mg/dL 7.6-11.0 [facility] Serum or plasma urea nitroge n measurement (mass/volume)Ordered By: Jessica Worthington on 08-10-2024 Urea nitrogen [Mass/Vol] 15 mg/dL 4-19 [facility] Sodium levelOrdered By: Emily Worthington on 08-10-2024 Sodium [Moles/Vol] 134 mmol/L 133-145 [facility] Total proteinOrdered By: Juliana Worthington on 08-10-2024 Protein [Mass/Vol] 7.8 g/dL 5.9-8.4 [facility] White blood cell (WBC) count Ordered By: Jessica Worthington on 08-10-2024 WBC (Bld) [#/Vol] 4.5 10*3/uL 4.4-11.0 [facility] Gastric Emptying Study - 4 H Jamie 08-01-2024 Gastric Emptying Study - 4 HR [facility] [address] [place], [place] [id number] Gastric Emptying Study - 4 HR MR#: [id number] Acct: [id number] Name: MACY MORALES Rep #: [id number] : 1955 F 68 From: Domingo santamaria MD PCP: Dr. Angelita Call MD Status: REG CLI Study: Gastric Emptying Study - 4 HR Date of Exam: Exam# [id number] Ordering Dr: Jessica Worthington PROCEDURE: GASTRIC EMPTYING [...] geometric mean was used to calculate a ukzb-xjpoglhn-slact. RADIOPHARMACEUTICAL: [employer] sulfur colloid DOSE 1.1mCi FINDINGS: Percent activity remaining in stomach: 1 hour 68 % (normal 37-90%) 2 hours: 39 % (normal 30-60%) 4 hours: 5 % (normal 0-10%) NM/Gastric Emptying Study - 4 HR IMPRESSION: Normal gastric emptying study. Reading Location: [place] [address] CC: JENNIFER Worthington; Dr. Angelita Call MD Manager Support: Signed Normal [facility] Abdomen Limitedon 07-06-2024 Abdomen Limited [facility] [address] [place] [id number] Abdomen Limited MR#: [id number] Acct: [id number] Name: MACY MORALES Rep #: [id number] : 1955 F 68 From: Domingo santamaria MD PCP: Dr. Angelita Call MD Status: REG CLI Study: Abdomen Limited Date of Exam: 07/06/24 Exam# [id number] Ordering Dr: Jessica Worthington PROCEDURE: ABDOMEN LIMITED [...] quadrant and left upper quadrant. Reading Location: [facility] CC: JENNIFER Worthington; Dr. Angelita Call MD Manager Support: Signed Normal [facility] Abdomen Single Viewon 2024 Abdomen Single View [facility] [address] [place] [address] Abdomen Single View MR#: [id number] Acct: [id number] Name: MACY MORALES Rep #: [id number] : 1955 F 68 From: Quynh Costello PCP: Dr. Angelita Call MD Status: REG CLI Study: Abdomen Single View Date of Exam: 07/04/24 Exam# [id number] Ordering Dr: Jessica Worthington PROCEDURE: ABDOMEN SINGLE [...] worsen, follow-up imaging is recommended. Reading Location: [facility] CC: JENNIFER Worthington; Dr. Angelita Call MD Manager Support: Signed Normal [facility] Absolute lymphocyte countOrd ered By: Angelita Call on 07-04-2024 Lymphocytes Auto (Unsp spec) [#/Vol] 1.11 10*3/uL 0.83-4.51 [facility] Absolute neutrophil countOrd ered By: Angelita Call on 07-04-2024 Neutrophils (Bld) [#/Vol] 2.2 10*3/uL 2.0-7.7 [facility] Anion gap in Serum or Plasma Ordered By: Angelita Call on 07-04-2024 Anion gap [Moles/Vol] 10 mmol/L 5-15 [facility] Automated lymphocyte count a s percentage of total leukocytesOrdered By: Angelita Call on 07-04-2024 Lymphocytes/100 WBC Auto (Unsp spec) 26.6 % 19-41 [facility] BUN/creatinine ratioOrdered By: Angelita Call on 07-04-2024 Urea nitrogen/Creatinine [Mass ratio] 16.4 mg/mg 10-20 [facility] Basophil percentageOrdered B y: Angelita Call on 07-04-2024 Basophils/100 WBC (Bld) 1.0 % 0-1 [facility] Bilirubin, totalOrdered By: Angelita Call on 07-04-2024 Bilirubin [Mass/Vol] 2.50 mg/dL High 0.00-1.30 [facility] Blood manual differential co mment interpretation (narrative result)Ordered By: Angelita Call on 07-04-2024 Manual differential comment Angel (Bld) [Interp] SCANNED [facility] CBC W/Diff, Automatedon 06-14 Absolute Lymph 1.11 X10 3/uL Normal 0.83-4.51 [facility] Comment on above: Performed By: #### L 500.4050, L506.0400, L100.0100, L501.9520 ####[facility] [address] [place], [address] Absolute Neut 2.2 X10 3/uL Normal 2.0-7.7 [facility] Comment on above: Performed By: #### L 500.4050, L506.0400, L100.0100, L501.9520 ####[facility] [address] [place], [address] Basophils/100 WBC (Bld) 1.0 % Normal 0-1 [facility] Comment on above: Performed By: #### L 500.4050, L506.0400, L100.0100, L501.9520 ####[facility] [address] [place], [address] Eosinophils/100 WBC (Bld) 3.1 % Normal 0-5 [facility] Comment on above: Performed By: #### L 500.4050, L506.0400, L100.0100, L501.9520 ####[facility] [address] [place], [address] Erythrocyte distribution width (RBC) [Ratio] 14.7 % High 11.6-14.6 [facility] Comment on above: Performed By: #### L 500.4050, L506.0400, L100.0100, L501.9520 ####[facility] [address] [place], [address] Hematocrit (Bld) [Volume fraction] 34.8 % Low 37-47 [facility] Comment on above: Performed By: #### L 500.4050, L506.0400, L100.0100, L501.9520 ####[facility] [address] [place], [address] Hemoglobin (Bld) [Mass/Vol] 11.7 g/dL Low 12.0-15.0 [facility] Comment on above: Performed By: #### L 500.4050, L506.0400, L100.0100, L501.9520 ####[facility] [address] [place], [address] IG% 0.200 Normal 0.0-0.9 [facility] Comment on above: Result Comment: IG% - Immature Granulocytes (promyelocytes, myelocytes and metamyelocytes) > 1% indicates that a LEFT SHIFT is Present. Performed By: #### L 500.4050, L506.0400, L100.0100, L501.9520 ####[facility] [address] [place], [address] Lymphocytes/100 WBC (Bld) 26.6 % Normal 19-41 [facility] Comment on above: Performed By: #### L 500.4050, L506.0400, L100.0100, L501.9520 ####[facility] [address] [place], [address] MCH (RBC) [Entitic mass] 31.5 pg Normal 27.0-32.0 [facility] Comment on above: Performed By: #### L 500.4050, L506.0400, L100.0100, L501.9520 ####[facility] [address] [place], [address] MCHC (RBC) [Mass/Vol] 33.6 g/dL Normal 32-36 [facility] Comment on above: Performed By: #### L 500.4050, L506.0400, L100.0100, L501.9520 ####[facility] [address] [place], [address] MCV (RBC) [Entitic vol] 93.8 fL Normal 81-99 [facility] Comment on above: Performed By: #### L 500.4050, L506.0400, L100.0100, L501.9520 ####[facility] [address] [place], [address] Monocytes/100 WBC (Bld) 15.8 % High 0-10 [facility] Comment on above: Performed By: #### L 500.4050, L506.0400, L100.0100, L501.9520 ####[facility] [address] [place], [address] Neutrophils/100 WBC (Bld) 53.3 % Normal 47-70 [facility] Comment on above: Performed By: #### L 500.4050, L506.0400, L100.0100, L501.9520 ####[facility] [address] [place], [address] Nucleated RBC (Bld) [#/Vol] 0 10*3/uL Normal 0-5 [facility] Comment on above: Performed By: #### L 500.4050, L506.0400, L100.0100, L501.9520 ####[facility] [address] [place], [address] Platelet mean volume (Bld) [Entitic vol] 12.5 fL High 6.2-12.0 [facility] Comment on above: Performed By: #### L 500.4050, L506.0400, L100.0100, L501.9520 ####[facility] [address] [place], [address] Platelets (Bld) [#/Vol] 66 10*3/uL Low 150-450 [facility] Comment on above: Performed By: #### L 500.4050, L506.0400, L100.0100, L501.9520 ####[facility] [address] [place], [address] RBC (Bld) [#/Vol] 3.71 10*6/uL Low 4.2-5.4 [facility] Comment on above: Performed By: #### L 500.4050, L506.0400, L100.0100, L501.9520 ####[facility] [address] [place], [address] RDW SD 51.2 fl High 35.1-43.9 [facility] Comment on above: Performed By: #### L 500.4050, L506.0400, L100.0100, L501.9520 ####[facility] [facility] [address] [place], [address] WBC (Bld) [#/Vol] 4.2 10*3/uL Low 4.4-11.0 [facility] Comment on above: Performed By: #### L 500.4050, L506.0400, L100.0100, L501.9520 ####[facility] [address] [place], [address] Carbon dioxide, total [Moles /volume] in Central venous bloodOrdered By: Angelita Call on 07-04-2024 CO2 [Moles/Vol] 25.7 mmol/L 21.0-32.0 [facility] Chloride assayOrdered By: Geovanny Call on 07-04-2024 Chloride [Moles/Vol] 104 mmol/L 98-108 [facility] Comprehensive Metabolic Prof ilon 07-04-2024 Albumin [Mass/Vol] 3.5 g/dL Normal 3.4-4.8 [facility] Comment on above: Performed By: #### L 500.4050, L506.0400, L100.0100, L501.9520 ####[facility] [address] [place], [address] Albumin/Globulin [Mass ratio] 1.0 {ratio} Normal 0.9-2.4 [facility] Comment on above: Performed By: #### L 500.4050, L506.0400, L100.0100, L501.9520 ####[facility] [address] [place], [address] ALK PHOS 211 U/L High 35-104 [facility] Comment on above: Performed By: #### L 500.4050, L506.0400, L100.0100, L501.9520 ####[facility] [address] [place], [address] ALT [Catalytic activity/Vol] 34 U/L Normal <=34 [facility] Comment on above: Performed By: #### L 500.4050, L506.0400, L100.0100, L501.9520 ####[facility] [address] [place], [address] AST [Catalytic activity/Vol] 80 U/L High <=31 [facility] Comment on above: Performed By: #### L 500.4050, L506.0400, L100.0100, L501.9520 ####[facility] [address] [place], [address] Bilirubin [Mass/Vol] 2.50 mg/dL High 0.00-1.30 [facility] Comment on above: Performed By: #### L 500.4050, L506.0400, L100.0100, L501.9520 ####[facility] [address] [place], [address] BUN/CRE 16.4 RATIO Normal 10-20 [facility] Comment on above: Performed By: #### L 500.4050, L506.0400, L100.0100, L501.9520 ####[facility] [address] [place], [address] Calcium [Mass/Vol] 9.0 mg/dL Normal 7.6-11.0 [facility] Comment on above: Performed By: #### L 500.4050, L506.0400, L100.0100, L501.9520 ####[facility] [address] [place], [address] Chloride [Moles/Vol] 104 mmol/L Normal 98-108 [facility] Comment on above: Performed By: #### L 500.4050, L506.0400, L100.0100, L501.9520 ####[facility] [address] [place], [address] CO2 [Moles/Vol] 25.7 mmol/L Normal 21.0-32.0 [facility] Comment on above: Performed By: #### L 500.4050, L506.0400, L100.0100, L501.9520 ####[facility] [address] [place], [address] Creatinine [Mass/Vol] 0.72 mg/dL Normal 0.70-1.20 [facility] Comment on above: Performed By: #### L 500.4050, L506.0400, L100.0100, L501.9520 ####[facility] [address] [place], [address] GAP 10 Normal 5-15 [facility] Comment on above: Performed By: #### L 500.4050, L506.0400, L100.0100, L501.9520 ####[facility] [address] [place], [address] GFR/1.73 sq M.predicted among non-blacks MDRD (S/P/Bld) [Vol rate/Area] 92 mL/min/{1.73_m2} Normal >60 [facility] Comment on above: Result Comment: mL/m in/1.73m2 CKD-EPI Creatinine Equation (2020) Performed By: #### L 500.4050, L506.0400, L100.0100, L501.9520 ####[facility] [address] [place], [address] Globulin (S) [Mass/Vol] 3.5 g/dL Normal 2.2-4.2 [facility] Comment on above: Performed By: #### L 500.4050, L506.0400, L100.0100, L501.9520 ####[facility] [address] [place], [address] Glucose [Mass/Vol] 105 mg/dL High 70-99 [facility] Comment on above: Performed By: #### L 500.4050, L506.0400, L100.0100, L501.9520 ####[facility] [address] [place], [address] Potassium [Moles/Vol] 3.8 mmol/L Normal 3.3-5.1 [facility] Comment on above: Performed By: #### L 500.4050, L506.0400, L100.0100, L501.9520 ####[facility] [address] [place], [address] Sodium [Moles/Vol] 139 mmol/L Normal 133-145 [facility] Comment on above: Performed By: #### L 500.4050, L506.0400, L100.0100, L501.9520 ####[facility] [address] [place], [address] T PROT 6.9 g/dL Normal 5.9-8.4 [facility] Comment on above: Performed By: #### L 500.4050, L506.0400, L100.0100, L501.9520 ####[facility] [address] [place], [address] Urea nitrogen [Mass/Vol] 12 mg/dL Normal 4-19 [facility] Comment on above: Performed By: #### L 500.4050, L506.0400, L100.0100, L501.9520 ####[facility] [address] [place], [address] Eosinophil percentageOrdered By: Angelita Call on 07-04-2024 Eosinophils/100 WBC (Bld) 3.1 % 0-5 [facility] Erythrocyte distribution wid th (RBC) [Ratio]Ordered By: Angelita Call on 07-04-2024 Erythrocyte distribution width (RBC) [Entitic vol] 51.2 fL High 35.1-43.9 [facility] Erythrocyte distribution wid th ratioOrdered By: Angelita Oneyda on 07-04-2024 Erythrocyte distribution width (RBC) [Ratio] 14.7 % High 11.6-14.6 [facility] Erythrocyte distribution wid th standard deviationOrdered By: [facility] on 07-04-2024 Erythrocyte distribution width (RBC) [Ratio] 51.2 fl High 35.1-43.9 [facility] GFR/1.73 sq M.predicted gato g non-blacks MDRD (S/P/Bld) [Vol rate/Area]Ordered By: [facility] on 07-04-2024 Estimated GFR (MDRD) Non-Af Amer 92 >60 [facility] Comment on above: mL/min/1.73m2 CKD-EP I Creatinine Equation (2020) Gastroenterology Visit Repor ton 07-04-2024 Gastroenterology Visit Report [facility] [address] [place] [address] OFFICE VISIT Date of Service: 07/04/24 MR#: [id number] Acct: [id number] Name: MACY MORALES Rep #: [id number] : 1955 Provider: JENNIFER de la vega Age/Sex: 68/F Location: [facility] Status: Signed Intake Vital Signs 05/29/24 12:36 07/04/24 11:13 Height 5 ft 5 ft Weight: 192 lb 6 oz 197 lb 8 oz BMI 37.5 38.5 BP 146/81 H Respiration 16 Pulse 75 Pulse Oximetry (%) 98 Oxygen Delivery Method room air Intake Visit Reasons: ABD PAIN AND DISTENSION Chief Complaint: abdominal pain 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 [facility] Medical History (Updated 07/04/24 @ 11:40 by JENNIFER Mcdonald) Fracture of right distal radius Right wrist [...] stenosis which was dilated. OV with Dr. Marie 11/25/2023 Refilled lactulose 10 grams (15 mL) [...] weight yesenia (more content not included)... Normal [facility] Glomerular filtration rate ( GFR) estimation/1.73 sq m using serum, plasma, or whole bOrdered By: Angelita Call on 07-04-2024 GFR/1.73 sq M.predicted among non-blacks MDRD (S/P/Bld) [Vol rate/Area] 92 mL/min/{1.73_m2} >60 [facility] Comment on above: mL/min/1.73m2 CKD-EP I Creatinine Equation (2020) Hematocrit Auto (Bld) [Volum e fraction]Ordered By: Angelita aCll on 07-04-2024 Hematocrit (Bld) [Volume fraction] 34.8 % Low 37-47 [facility] Hemoglobin measurementOrdere d By: Angelita Call on 07-04-2024 Hemoglobin (Bld) [Mass/Vol] 11.7 g/dL Low 12.0-15.0 [facility] Immature granulocytes/100 WB C Auto (Bld)Ordered By: Angelita Call on 07-04-2024 Immature granulocytes/100 WBC (Bld) 0.200 % 0.0-0.9 [facility] Comment on above: IG% - Immature Granu locytes (promyelocytes, myelocytes and metamyelocytes) > 1% indicates that a LEFT SHIFT is Present. Laboratory - Chemistry and C hemistry - challengeOrdered By: Angelita Call on 07-04-2024 AST [Catalytic activity/Vol] 80 U/L High <32 [facility] Lymphocytes Auto (Unsp spec) [#/Vol]Ordered By: Angelita Call on 07-04-2024 Lymphocytes (Bld) [#/Vol] 1.11 10*3/uL 0.83-4.5 1 [facility] Lymphocytes/100 WBC Auto (Un sp spec)Ordered By: Angelita Call on 07-04-2024 Lymphocytes/100 WBC (Bld) 26.6 % 19-41 [facility] MCV (mean corpuscular volume ) determinationOrdered By: Angelita Call on 07-04-2024 MCV (RBC) [Entitic vol] 93.8 fL 81-99 [facility] Manual differential comment Angel (Bld) [Interp]Ordered By: Angelita Call on 07-04-2024 Differential Comment SCANNED [facility] Mean corpuscular hemoglobin (MCH) determinationOrdered By: Angelita Call on 07-04-2024 MCH (RBC) [Entitic mass] 31.5 pg 27.0-32.0 [facility] Mean corpuscular hemoglobin concentration (MCHC) determinationOrdered By: Angelita Call on 07-04-2024 MCHC (RBC) [Mass/Vol] 33.6 g/dL 32-36 [facility] Mean platelet volume determi nationOrdered By: Angelita Call on 07-04-2024 Platelet mean volume (Bld) [Entitic vol] 12.5 fL High 6.2-12.0 [facility] Monocyte percentageOrdered B y: Angelita Call on 07-04-2024 Monocytes/100 WBC (Bld) 15.8 % High 0-10 [facility] Neutrophil percentageOrdered By: Angelita Call on 07-04-2024 Neutrophils/100 WBC (Bld) 53.3 % 47-70 [facility] Nucleated red blood cell per centageOrdered By: Angelita Call on 07-04-2024 Nucleated RBC/100 WBC (Bld) [Ratio] 0 % 0-5 [facility] Platelet countOrdered By: Geovanny Call on 07-04-2024 Platelets (Bld) [#/Vol] 66 10*3/uL Low 150-450 [facility] Platelet estimateOrdered By: Angelita Call on 07-04-2024 Platelets LM Ql (Bld) MKD DEC ADEQ [facility] Platelets LM Ql (Bld)Ordered By: Angelita Call on 07-04-2024 Platelet Estimate MKD DEC [facility] Potassium (Unsp spec) [Mass/ Vol]Ordered By: Angelita Call on 07-04-2024 Potassium [Moles/Vol] 3.8 mmol/L 3.3-5.1 [facility] Potassium measurement (mass/ volume)Ordered By: Angelita Call on 07-04-2024 Potassium (Unsp spec) [Mass/Vol] 3.8 mmol/L 3.3-5.1 [facility] RBC Auto (Bld) [#/Vol]Ordere d By: Angelita Call on 07-04-2024 RBC (Bld) [#/Vol] 3.71 10*6/uL Low 4.2-5.4 [facility] Serum creatinine measurement (mass/volume)Ordered By: Angelita Call on 07-04-2024 Creatinine [Mass/Vol] 0.72 mg/dL 0.70-1.20 [facility] Serum globulin measurementOr dered By: Angelita Call on 07-04-2024 Globulin (S) [Mass/Vol] 3.5 g/dL 2.2-4.2 [facility] Serum glucose measurement (m ass/volume)Ordered By: Angelita Call on 07-04-2024 Glucose [Mass/Vol] 105 mg/dL High 70-99 [facility] Serum or plasma alanine adames otransferase (ALT) measurementOrdered By: Angelita Call on 07-04-2024 ALT [Catalytic activity/Vol] 34 U/L <35 [facility] Serum or plasma albumin cheri urement (mass/volume)Ordered By: Angelita Call on 07-04-2024 Albumin [Mass/Vol] 3.5 g/dL 3.4-4.8 [facility] Serum or plasma albumin/glob ulin mass ratioOrdered By: Angelita Call on 07-04-2024 Albumin/Globulin [Mass ratio] 1.0 {ratio} 0.9-2.4 [facility] Serum or plasma alkaline iban sphatase measurementOrdered By: Angelita Call on 07-04-2024 ALP [Catalytic activity/Vol] 211 U/L High 35-104 [facility] Serum or plasma calcium cheri urement (mass/volume)Ordered By: Angelita Call on 07-04-2024 Calcium [Mass/Vol] 9.0 mg/dL 7.6-11.0 [facility] Serum or plasma urea nitroge n measurement (mass/volume)Ordered By: Angelita Call on 07-04-2024 Urea nitrogen [Mass/Vol] 12 mg/dL 4-19 [facility] Sodium levelOrdered By: Belinda Call on 07-04-2024 Sodium [Moles/Vol] 139 mmol/L 133-145 [facility] T4 Free Directon 07-04-2024 T4 FREE DIRECT 1.30 ng/dL Normal 0.76-1.46 [facility] Comment on above: Performed By: #### L 500.4050, L506.0400, L100.0100, L501.9520 ####[facility] [address] [place], [place], [address] T4 freeOrdered By: Angelita isaac on 07-04-2024 Free T4 [Mass/Vol] 1.30 ng/dL 0.76-1.46 [facility] TSH DL <= 0.005 mIU/L QnOrde red By: Angelita Call on 07-04-2024 Thyroid Stimulating Hormone (TSH) 3.780 uIU/mL 0.300-4.20 0 [facility] TSH Qn 3.780 uIU/mL 0.300-4.20 0 [facility] Thyroid Stim Hormone (TSH)on 07-04-2024 TSH 3.780 uIU/mL Normal 0.300-4.20 0 [facility] Comment on above: Performed By: #### L 500.4050, L506.0400, L100.0100, L501.9520 ####[facility] [address] [place], [place], [id number] Total proteinOrdered By: Prosper Call on 07-04-2024 Protein [Mass/Vol] 6.9 g/dL 5.9-8.4 [facility] White blood cell (WBC) count Ordered By: Angelita Oneyda on 07-04-2024 WBC (Bld) [#/Vol] 4.2 10*3/uL Low 4.4-11.0 [facility] Abdomen Limitedon 06-07-2024 Abdomen Limited [facility] [address] [place], [place] [address] Abdomen Limited MR#: [id number] Acct: [id number] Name: MACY MORALES Rep #: [id number] : 1955 F 68 From: King Rice MD PCP: Dr. Angelita Call MD Status: REG CLI Study: Abdomen Limited Date of Exam: 06/07/24 Exam# [id number] Ordering Dr: Santino Marie DO EXAM: Ultrasound [...] is obscured by bowel gas. Reading Location: [id number] CC: Dr. Angelita Call MD; Santino Marie DO Manager Support: Signed Normal [facility] AFP, Tumor Markeron 06-01-19 25 AFP TUMOR MYRNA 8.4 ng/mL Normal 0.0-9.2 [facility] Comment on above: Order Comment: N Result Comment: [employer] Electrochemiluminescence Immunoassay (ECLIA) Values obtained with different assay methods or kits cannot be used interchangeably. Results cannot be interpreted as absolute evidence of the presence or absence of malignant disease. This test is not interpretable in females. Performed at: [facility] [id number] Mortgage Banker: Aaron Ackerman PhD, Phone: [phone] Performed By: #### L 300.3900, L101.9900, L300.4310, L500.4050, L501.6710, L3300.0700, L100.0100 #### [facility] Laboratory [address] [place], [address] Absolute lymphocyte countOrd ered By: Santino Marie on 05-29-2024 Lymphocytes Auto (Unsp spec) [#/Vol] 1.09 10*3/uL 0.83-4.51 [facility] Absolute neutrophil countOrd ered By: Santino Marie on 05-29-2024 Neutrophils (Bld) [#/Vol] 3.0 10*3/uL 2.0-7.7 [facility] Activated partial thrombopla stin time (aPTT) in platelet poor plasma by coagulation aOrdered By: Santino Marie on 05-29-2024 aPTT Coag (PPP) [Time] 33.3 s 24.1-36.2 [facility] Alpha fetoprotein measuremen t as tumor markerOrdered By: Santino Marie on 05-29-2024 Tumor Marker Alpha Fetoprotein 8.4 ng/mL 0.0-9.2 [facility] Comment on above: [employer] [facility] El ectrochemiluminescence Immunoassay(ECLIA)Values obtained with different assay methods or kits cannotbe used interchangeably. Results cannot be interpreted asabsolute evidence of the presence or absence of malignantdisease.This test is not interpretable in females.Performed at: [address] [id number] Director: Aaron Ackerman PhD, Phone: [phone] Anion gap in Serum or Plasma Ordered By: Santino Marie on 05-29-2024 Anion gap [Moles/Vol] 12 mmol/L 5-15 [facility] Automated lymphocyte count a s percentage of total leukocytesOrdered By: Santinodangelo Marie on 05-29-2024 Lymphocytes/100 WBC Auto (Unsp spec) 22.2 % - [facility] BUN/creatinine ratioOrdered By: Santinodangelo Marie on 05-29-2024 Urea nitrogen/Creatinine [Mass ratio] 13.0 mg/mg 10- [facility] Basophil percentageOrdered B y: aSntino Marie on 05-29-2024 Basophils/100 WBC (Bld) 0.6 % 0-1 [facility] Bilirubin, totalOrdered By: Santinoadolfo Marie on 05-29-2024 Bilirubin [Mass/Vol] 2.38 mg/dL High 0.00-1.30 [facility] CBC W/Diff, Automatedon 05-13 Absolute Lymph 1.09 X10 3/uL Normal 0.83-4.51 [facility] Comment on above: Performed By: #### L 300.3900, L101.9900, L300.4310, L500.4050, L501.6710, L3300.0700, L100.0100 #### [facility] Laboratory [address] [place], [address] Absolute Neut 3.0 X10 3/uL Normal 2.0-7.7 [facility] Comment on above: Performed By: #### L 300.3900, L101.9900, L300.4310, L500.4050, L501.6710, L3300.0700, L100.0100 #### [facility] Laboratory [address] [place], [address] Basophils/100 WBC (Bld) 0.6 % Normal 0-1 [facility] Comment on above: Performed By: #### L 300.3900, L101.9900, L300.4310, L500.4050, L501.6710, L3300.0700, L100.0100 #### [facility] Laboratory [address] [place], [address] Eosinophils/100 WBC (Bld) 3.9 % Normal 0-5 [facility] Comment on above: Performed By: #### L 300.3900, L101.9900, L300.4310, L500.4050, L501.6710, L3300.0700, L100.0100 #### [facility] Laboratory [address] [place], [address] Erythrocyte distribution width (RBC) [Ratio] 15.2 % High 11.6-14.6 [facility] Comment on above: Performed By: #### L 300.3900, L101.9900, L300.4310, L500.4050, L501.6710, L3300.0700, L100.0100 #### [facility] Laboratory [address] [place], [address] Hematocrit (Bld) [Volume fraction] 38.8 % Normal 37-47 [facility] Comment on above: Performed By: #### L 300.3900, L101.9900, L300.4310, L500.4050, L501.6710, L3300.0700, L100.0100 #### [facility] Laboratory [address] [place], [address] Hemoglobin (Bld) [Mass/Vol] 12.9 g/dL Normal 12.0-15.0 [facility] Comment on above: Performed By: #### L 300.3900, L101.9900, L300.4310, L500.4050, L501.6710, L3300.0700, L100.0100 #### [facility] Laboratory [address] [place] [place], [address] IG% 0.200 Normal 0.0-0.9 [facility] Comment on above: Result Comment: IG% - Immature Granulocytes (promyelocytes, myelocytes and metamyelocytes) > 1% indicates that a LEFT SHIFT is Present. Performed By: #### L 300.3900, L101.9900, L300.4310, L500.4050, L501.6710, L3300.0700, L100.0100 #### [facility] Laboratory [address] [place], [address] Lymphocytes/100 WBC (Bld) 22.2 % Normal 19-41 [facility] Comment on above: Performed By: #### L 300.3900, L101.9900, L300.4310, L500.4050, L501.6710, L3300.0700, L100.0100 #### [facility] Laboratory [address] [place], [address] MCH (RBC) [Entitic mass] 31.3 pg Normal 27.0-32.0 [facility] Comment on above: Performed By: #### L 300.3900, L101.9900, L300.4310, L500.4050, L501.6710, L3300.0700, L100.0100 #### [facility] Laboratory [address] [place], [address] MCHC (RBC) [Mass/Vol] 33.2 g/dL Normal 32-36 [facility] Comment on above: Performed By: #### L 300.3900, L101.9900, L300.4310, L500.4050, L501.6710, L3300.0700, L100.0100 #### [facility] Laboratory [address] [place], [address] MCV (RBC) [Entitic vol] 94.2 fL Normal 81-99 [facility] Comment on above: Performed By: #### L 300.3900, L101.9900, L300.4310, L500.4050, L501.6710, L3300.0700, L100.0100 #### [facility] Laboratory [address] [place], [address] Monocytes/100 WBC (Bld) 11.8 % High 0-10 [facility] Comment on above: Performed By: #### L 300.3900, L101.9900, L300.4310, L500.4050, L501.6710, L3300.0700, L100.0100 #### [facility] Laboratory [address] [place], [address] Neutrophils/100 WBC (Bld) 61.3 % Normal 47-70 [facility] Comment on above: Performed By: #### L 300.3900, L101.9900, L300.4310, L500.4050, L501.6710, L3300.0700, L100.0100 #### [facility] Laboratory [address] [place], [address] Nucleated RBC (Bld) [#/Vol] 0 10*3/uL Normal 0-5 [facility] Comment on above: Performed By: #### L 300.3900, L101.9900, L300.4310, L500.4050, L501.6710, L3300.0700, L100.0100 #### [facility] Laboratory [address] [place], [address] Platelet mean volume (Bld) [Entitic vol] 12.8 fL High 6.2-12.0 [facility] Comment on above: Performed By: #### L 300.3900, L101.9900, L300.4310, L500.4050, L501.6710, L3300.0700, L100.0100 #### [facility] Laboratory [address] [place], [address] Platelets (Bld) [#/Vol] 64 10*3/uL Low 150-450 [facility] Comment on above: Performed By: #### L 300.3900, L101.9900, L300.4310, L500.4050, L501.6710, L3300.0700, L100.0100 #### [facility] Laboratory [address] [place], [address] RBC (Bld) [#/Vol] 4.12 10*6/uL Low 4.2-5.4 [facility] Comment on above: Performed By: #### L 300.3900, L101.9900, L300.4310, L500.4050, L501.6710, L3300.0700, L100.0100 #### [facility] Laboratory [address] [place], [address] RDW SD 53.0 fl High 35.1-43.9 [facility] Comment on above: Performed By: #### L 300.3900, L101.9900, L300.4310, L500.4050, L501.6710, L3300.0700, L100.0100 #### [facility] Laboratory [address] [place], [address] WBC (Bld) [#/Vol] 4.9 10*3/uL Normal 4.4-11.0 [facility] Comment on above: Performed By: #### L 300.3900, L101.9900, L300.4310, L500.4050, L501.6710, L3300.0700, L100.0100 #### [facility] [facility] [address] [place], [address] CRPon 05-29-2024 C-REACTIVE PROT 7.71 mg/L High 0.0-3.0 [facility] Comment on above: Performed By: #### L 300.3900, L101.9900, L300.4310, L500.4050, L501.6710, L3300.0700, L100.0100 #### [facility] [address] [place], [address] CRP [Mass/Vol]Ordered By: Ra mary Marie on 05-29-2024 C-Reactive Protein Extended Range 7.71 mg/L High 0.0-3.0 [facility] Carbon dioxide, total [Moles /volume] in Central venous bloodOrdered By: Santino Marie on 05-29-2024 CO2 [Moles/Vol] 24.2 mmol/L 21.0-32.0 [facility] Chloride assayOrdered By: Ra hernandez Friend on 05-29-2024 Chloride [Moles/Vol] 102 mmol/L 98-108 [facility] Comprehensive Metabolic Prof ilon 05-29-2024 Albumin [Mass/Vol] 3.8 g/dL Normal 3.4-4.8 [facility] Comment on above: Performed By: #### L 300.3900, L101.9900, L300.4310, L500.4050, L501.6710, L3300.0700, L100.0100 #### [facility] [address] [place], [address] Albumin/Globulin [Mass ratio] 1.0 {ratio} Normal 0.9-2.4 [facility] Comment on above: Performed By: #### L 300.3900, L101.9900, L300.4310, L500.4050, L501.6710, L3300.0700, L100.0100 #### [facility] [address] [place], [address] ALK PHOS 233 U/L High 35-104 [facility] Comment on above: Performed By: #### L 300.3900, L101.9900, L300.4310, L500.4050, L501.6710, L3300.0700, L100.0100 #### [facility] [address] [place], [address] ALT [Catalytic activity/Vol] 43 U/L High <=34 [facility] Comment on above: Performed By: #### L 300.3900, L101.9900, L300.4310, L500.4050, L501.6710, L3300.0700, L100.0100 #### [facility] [address] [place], [address] AST [Catalytic activity/Vol] 90 U/L High <=31 [facility] Comment on above: Performed By: #### L 300.3900, L101.9900, L300.4310, L500.4050, L501.6710, L3300.0700, L100.0100 #### [facility] [address] [place], [address] Bilirubin [Mass/Vol] 2.38 mg/dL High 0.00-1.30 [facility] Comment on above: Performed By: #### L 300.3900, L101.9900, L300.4310, L500.4050, L501.6710, L3300.0700, L100.0100 #### [facility] [address] [place], [address] BUN/CRE 13.0 RATIO Normal 10-20 [facility] Comment on above: Performed By: #### L 300.3900, L101.9900, L300.4310, L500.4050, L501.6710, L3300.0700, L100.0100 #### [facility] [address] [place], [address] Calcium [Mass/Vol] 9.0 mg/dL Normal 7.6-11.0 [facility] Comment on above: Performed By: #### L 300.3900, L101.9900, L300.4310, L500.4050, L501.6710, L3300.0700, L100.0100 #### [facility] [address] [place], [address] Chloride [Moles/Vol] 102 mmol/L Normal 98-108 [facility] Comment on above: Performed By: #### L 300.3900, L101.9900, L300.4310, L500.4050, L501.6710, L3300.0700, L100.0100 #### [facility] [address] [place], [address] CO2 [Moles/Vol] 24.2 mmol/L Normal 21.0-32.0 [facility] Comment on above: Performed By: #### L 300.3900, L101.9900, L300.4310, L500.4050, L501.6710, L3300.0700, L100.0100 #### [facility] [address] [place], [place], [phone] ([phone] Creatinine [Mass/Vol] 0.77 mg/dL Normal 0.70-1.20 [facility] Comment on above: Performed By: #### L 300.3900, L101.9900, L300.4310, L500.4050, L501.6710, L3300.0700, L100.0100 #### [facility] [address] [place], [place], [phone] (750) GAP 12 Normal 5-15 [facility] Comment on above: Performed By: #### L 300.3900, L101.9900, L300.4310, L500.4050, L501.6710, L3300.0700, L100.0100 #### [facility] [address] [place], [place], [phone] (584) GFR/1.73 sq M.predicted among non-blacks MDRD (S/P/Bld) [Vol rate/Area] 85 mL/min/{1.73_m2} Normal >60 [facility] Comment on above: Result Comment: mL/m in/1.73m2 CKD-EPI Creatinine Equation (2020) Performed By: #### L 300.3900, L101.9900, L300.4310, L500.4050, L501.6710, L3300.0700, L100.0100 #### [facility] [address] [place], [address] Globulin (S) [Mass/Vol] 3.6 g/dL Normal 2.2-4.2 [facility] Comment on above: Performed By: #### L 300.3900, L101.9900, L300.4310, L500.4050, L501.6710, L3300.0700, L100.0100 #### [facility] [address] [place], [address] Glucose [Mass/Vol] 108 mg/dL High 70-99 [facility] Comment on above: Performed By: #### L 300.3900, L101.9900, L300.4310, L500.4050, L501.6710, L3300.0700, L100.0100 #### [facility] [address] [place], [address] Potassium [Moles/Vol] 3.7 mmol/L Normal 3.3-5.1 [facility] Comment on above: Performed By: #### L 300.3900, L101.9900, L300.4310, L500.4050, L501.6710, L3300.0700, L100.0100 #### [facility] [address] [place], [address] Sodium [Moles/Vol] 138 mmol/L Normal 133-145 [facility] Comment on above: Performed By: #### L 300.3900, L101.9900, L300.4310, L500.4050, L501.6710, L3300.0700, L100.0100 #### [facility] [address] [place], [place], [id number] T PROT 7.4 g/dL Normal 5.9-8.4 [facility] Comment on above: Performed By: #### L 300.3900, L101.9900, L300.4310, L500.4050, L501.6710, L3300.0700, L100.0100 #### [facility] [address] [place], [place], [phone] Urea nitrogen [Mass/Vol] 10 mg/dL Normal 4-19 [facility] Comment on above: Performed By: #### L 300.3900, L101.9900, L300.4310, L500.4050, L501.6710, L3300.0700, L100.0100 #### [facility] [address] [place], [place], [phone] Eosinophil percentageOrdered By: Santino Marie on 05-29-2024 Eosinophils/100 WBC (Bld) 3.9 % 0-5 [facility] Erythrocyte Sed Rateon 05-29 SED RATE 14 mm/hr Normal 0-30 [facility] Comment on above: Performed By: #### L 300.3900, L101.9900, L300.4310, L500.4050, L501.6710, L3300.0700, L100.0100 #### [facility] [address] [place], [address] Erythrocyte distribution wid th ratioOrdered By: Santino Marie on 05-29-2024 Erythrocyte distribution width (RBC) [Ratio] 15.2 % High 11.6-14.6 [facility] Erythrocyte distribution wid th standard deviationOrdered By: Santino Marie on 05-29-2024 Erythrocyte distribution width (RBC) [Entitic vol] 53.0 fL High 35.1-43.9 [facility] Erythrocyte distribution width (RBC) [Ratio] 53.0 fl High 35.1-43.9 [facility] Erythrocyte sedimentation ra teOrdered By: Santino Marie on 05-29-2024 ESR (Bld) [Velocity] 14 mm/h 0-30 [facility] GFR/1.73 sq M.predicted gato g non-blacks MDRD (S/P/Bld) [Vol rate/Area]Ordered By: Santino Marie on 05-29-2024 Estimated GFR (MDRD) Non-Af Amer 85 >60 [facility] Comment on above: mL/min/1.73m2 CKD-EP I Creatinine Equation (2020) Gastroenterology Visit Repor ton 05-29-2024 Gastroenterology Visit Report [facility] [address] [place] [address] OFFICE VISIT Date of Service: 05/29/24 MR#: [id number] Acct: [id number] Name: MACY MORALES Rep #: [id number] : 1955 Provider: Santino Marie DO Age/Sex: 68/F Location: [facility] Status: Signed Intake Vital Signs 09/27/23 09:20 [...] 1 - 2 puff inhalation Q4H PRN VA N 08/27/23 05/29/24 Rx aerosol inhaler (Ventolin [...] Appearance: average body habitus and well nourished [facility] Head: normal to inspection Ears: hearing grossly [...] rhythm GI (more content not included)... Normal [facility] Glomerular filtration rate ( GFR) estimation/1.73 sq m using serum, plasma, or whole bOrdered By: Santino Marie on 05-29-2024 GFR/1.73 sq M.predicted among non-blacks MDRD (S/P/Bld) [Vol rate/Area] 85 mL/min/{1.73_m2} >60 [facility] Comment on above: mL/min/1.73m2 CKD-EP I Creatinine Equation (2020) Hematocrit Auto (Bld) [Volum e fraction]Ordered By: Santino Marie on 05-29-2024 Hematocrit (Bld) [Volume fraction] 38.8 % 37-47 [facility] Hemoglobin measurementOrdere d By: Santino Marie on 05-29-2024 Hemoglobin (Bld) [Mass/Vol] 12.9 g/dL 12.0-15.0 [facility] Immature granulocytes/100 WB C Auto (Bld)Ordered By: Santino Marie on 05-29-2024 Immature granulocytes/100 WBC (Bld) 0.200 % 0.0-0.9 [facility] Comment on above: IG% - Immature Granu locytes (promyelocytes, myelocytes and metamyelocytes) > 1% indicates that a LEFT SHIFT is Present. International normalized rat io (INR) calculationOrdered By: Santino Marie on 05-29-2024 INR Coag (Bld) [Relative time] 1.1 {INR} [facility] - Chemistry and C hemistry - challengeOrdered By: Santino Marie on 05-29-2024 AST [Catalytic activity/Vol] 90 U/L High <32 [facility] Lymphocytes Auto (Unsp spec) [#/Vol]Ordered By: Santino Marie on 05-29-2024 Lymphocytes (Bld) [#/Vol] 1.09 10*3/uL 0.83-4.5 1 [facility] Lymphocytes/100 WBC Auto (Un sp spec)Ordered By: Santino Marie on 05-29-2024 Lymphocytes/100 WBC (Bld) 22.2 % 19-41 [facility] MCV (mean corpuscular volume ) determinationOrdered By: Santino Marie on 05-29-2024 MCV (RBC) [Entitic vol] 94.2 fL 81-99 [facility] Mean corpuscular hemoglobin (MCH) determinationOrdered By: Santino Marie on 05-29-2024 MCH (RBC) [Entitic mass] 31.3 pg 27.0-32.0 [facility] Mean corpuscular hemoglobin concentration (MCHC) determinationOrdered By: Santino Marie on 05-29-2024 MCHC (RBC) [Mass/Vol] 33.2 g/dL 32-36 [facility] Mean platelet volume determi nationOrdered By: Santino Marie on 05-29-2024 Platelet mean volume (Bld) [Entitic vol] 12.8 fL High 6.2-12.0 [facility] Monocyte percentageOrdered B y: Santino Marie on 05-29-2024 Monocytes/100 WBC (Bld) 11.8 % High 0-10 [facility] Neutrophil percentageOrdered By: Santino Marie on 05-29-2024 Neutrophils/100 WBC (Bld) 61.3 % 47-70 [facility] Nucleated red blood cell per centageOrdered By: Santino Marie on 05-29-2024 Nucleated RBC/100 WBC (Bld) [Ratio] 0 % 0-5 [facility] Partial Thromboplast Timeon 05-29-2024 aPTT Coag (Bld) [Time] 33.3 s Normal 24.1-36.2 [facility] Comment on above: Performed By: #### L 300.3900, L101.9900, L300.4310, L500.4050, L501.6710, L3300.0700, L100.0100 #### [facility] [address] [place], [address] Platelet countOrdered By: Ra mary Marie on 05-29-2024 Platelets (Bld) [#/Vol] 64 10*3/uL Low 150-450 [facility] Potassium (Unsp spec) [Mass/ Vol]Ordered By: Santinoadlofo Marie on 05-29-2024 Potassium [Moles/Vol] 3.7 mmol/L 3.3-5.1 [facility] Potassium measurement (mass/ volume)Ordered By: Santinoadolfo Marie on 05-29-2024 Potassium (Unsp spec) [Mass/Vol] 3.7 mmol/L 3.3-5.1 [facility] Prothrombin Time w/INRon INR Coag (PPP) [Relative time] 1.1 {INR} Normal [facility] Comment on above: Performed By: #### L 300.3900, L101.9900, L300.4310, L500.4050, L501.6710, L3300.0700, L100.0100 #### [facility] [address] [place], [place], [id number] PT Coag (PPP) [Time] 14.9 s Normal 11.7-14.9 [facility] Comment on above: Performed By: #### L 300.3900, L101.9900, L300.4310, L500.4050, L501.6710, L3300.0700, L100.0100 #### [facility] [address] [facility] [place], [address] Prothrombin timeOrdered By: Santino Marie on 05-29-2024 PT Coag (PPP) [Time] 14.9 s 11.7-14.9 [facility] RBC Auto (Bld) [#/Vol]Ordere d By: Santino Marie on 05-29-2024 RBC (Bld) [#/Vol] 4.12 10*6/uL Low 4.2-5.4 [facility] Serum creatinine measurement (mass/volume)Ordered By: Santino Marie on 05-29-2024 Creatinine [Mass/Vol] 0.77 mg/dL 0.70-1.20 [facility] Serum globulin measurementOr dered By: Santino Marie on 05-29-2024 Globulin (S) [Mass/Vol] 3.6 g/dL 2.2-4.2 [facility] Serum glucose measurement (m ass/volume)Ordered By: Santino Marie on 05-29-2024 Glucose [Mass/Vol] 108 mg/dL High 70-99 [facility] Serum or plasma C reactive p rotein measurement (mass/volume)Ordered By: Santino Marie on 05-29-2024 CRP [Mass/Vol] 7.71 mg/L High 0.0-3.0 [facility] Serum or plasma alanine adames otransferase (ALT) measurementOrdered By: Santino Marie on 05-29-2024 ALT [Catalytic activity/Vol] 43 U/L High <35 [facility] Serum or plasma albumin cheri urement (mass/volume)Ordered By: Santino Marie on 05-29-2024 Albumin [Mass/Vol] 3.8 g/dL 3.4-4.8 [facility] Serum or plasma albumin/glob ulin mass ratioOrdered By: Santino Marie on 05-29-2024 Albumin/Globulin [Mass ratio] 1.0 {ratio} 0.9-2.4 [facility] Serum or plasma alkaline iban sphatase measurementOrdered By: Santino Marie on 05-29-2024 ALP [Catalytic activity/Vol] 233 U/L High 35-104 [facility] Serum or plasma calcium cheri urement (mass/volume)Ordered By: Santino Marie on 05-29-2024 Calcium [Mass/Vol] 9.0 mg/dL 7.6-11.0 [facility] Serum or plasma urea nitroge n measurement (mass/volume)Ordered By: Santino Marie on 05-29-2024 Urea nitrogen [Mass/Vol] 10 mg/dL 4-19 [facility] Sodium levelOrdered By: Gavin Plunkett on 05-29-2024 Sodium [Moles/Vol] 138 mmol/L 133-145 [facility] Total proteinOrdered By: Alexandr Marie on 05-29-2024 Protein [Mass/Vol] 7.4 g/dL 5.9-8.4 [facility] White blood cell (WBC) count Ordered By: Santino Marie on 05-29-2024 WBC (Bld) [#/Vol] 4.9 10*3/uL 4.4-11.0 [facility] aPTT Coag (PPP) [Time]Ordere d By: Santino Marie on 05-29-2024 aPTT Coag (Bld) [Time] 33.3 s 24.1-36.2 [facility] Absolute neutrophil countOrd ered By: Angelita Call on 04-03-2024 Neutrophils (Bld) [#/Vol] 2.1 10*3/uL 2.0-7.7 [facility] Albumin to globulin ratioOrd ered By: Angelita Call on 04-03-2024 Albumin/Globulin [Mass ratio] 0.7 {ratio} Low 0.9-2.4 [facility] Basophil percentageOrdered B y: Angelita Call on 04-03-2024 Basophils/100 WBC (Bld) 0.7 % 0-1 [facility] Bilirubin, totalOrdered By: Angelita Call on 04-03-2024 Bilirubin [Mass/Vol] 1.40 mg/dL High 0.20-1.00 [facility] Comment on above: For patients on eltr ombopag therapy, use of Dimension Rogers TBIL is not recommended. Blood urea nitrogen (BUN)/cr eatinine ratioOrdered By: Angelita Call on 04-03-2024 Urea nitrogen/Creatinine [Mass ratio] 13.7 mg/mg - [facility] CBC W/Diff, Automatedon 03-16 Absolute Lymph 1.25 X10 3/uL Normal 0.83-4.51 [facility] Comment on above: Order Comment: DR. Wanda ANN ORDERED CBC Performed By: #### L 502.0250, L501.9985, L100.0100, L500.4050 ####[facility] [address] [place], [address] Absolute Neut 2.1 X10 3/uL Normal 2.0-7.7 [facility] Comment on above: Order Comment: DR. Wanda ANN ORDERED CBC Performed By: #### L 502.0250, L501.9985, L100.0100, L500.4050 ####[facility] [address] [place], [address] Basophils/100 WBC (Bld) 0.7 % Normal 0-1 [facility] Comment on above: Order Comment: DR. Wanda ANN ORDERED CBC Performed By: #### L 502.0250, L501.9985, L100.0100, L500.4050 ####[facility] [address] [place], [address] Eosinophils/100 WBC (Bld) 6.6 % High 0-5 [facility] Comment on above: Order Comment: DR. Wanda ANN ORDERED CBC Performed By: #### L 502.0250, L501.9985, L100.0100, L500.4050 ####[facility] [address] [place], [address] Erythrocyte distribution width (RBC) [Ratio] 15.5 % High 11.6-14.6 [facility] Comment on above: Order Comment: DR. Wanda ANN ORDERED CBC Performed By: #### L 502.0250, L501.9985, L100.0100, L500.4050 ####[facility] [address] [place], [address] Hematocrit (Bld) [Volume fraction] 37.6 % Normal 37-47 [facility] Comment on above: Order Comment: DR. Wanda ANN ORDERED CBC Performed By: #### L 502.0250, L501.9985, L100.0100, L500.4050 ####[facility] [address] [place], [address] Hemoglobin (Bld) [Mass/Vol] 12.3 g/dL Normal 12.0-15.0 [facility] Comment on above: Order Comment: DR. Wanda ANN ORDERED CBC Performed By: #### L 502.0250, L501.9985, L100.0100, L500.4050 ####[facility] [address] [place], [address] IG% 0.000 Normal 0.0-0.9 [facility] Comment on above: Order Comment: DR. Wanda ANN ORDERED CBC Result Comment: IG% - Immature Granulocytes (promyelocytes, myelocytes and metamyelocytes) > 1% indicates that a LEFT SHIFT is Present. Performed By: #### L 502.0250, L501.9985, L100.0100, L500.4050 ####[facility] [address] [place], [address] Lymphocytes/100 WBC (Bld) 28.5 % Normal 19-41 [facility] Comment on above: Order Comment: DR. Wanda ANN ORDERED CBC Performed By: #### L 502.0250, L501.9985, L100.0100, L500.4050 ####[facility] [address] [place], [address] MCH (RBC) [Entitic mass] 30.5 pg Normal 27.0-32.0 [facility] Comment on above: Order Comment: DR. Wanda ANN ORDERED CBC Performed By: #### L 502.0250, L501.9985, L100.0100, L500.4050 ####[facility] [address] [place], [address] MCHC (RBC) [Mass/Vol] 32.7 g/dL Normal 32-36 [facility] Comment on above: Order Comment: DR. Wanda ANN ORDERED CBC Performed By: #### L 502.0250, L501.9985, L100.0100, L500.4050 ####[facility] [address] [place], [address] MCV (RBC) [Entitic vol] 93.3 fL Normal 81-99 [facility] Comment on above: Order Comment: DR. Wanda ANN ORDERED CBC Performed By: #### L 502.0250, L501.9985, L100.0100, L500.4050 ####[facility] [address] [place], [address] Monocytes/100 WBC (Bld) 15.5 % High 0-10 [facility] Comment on above: Order Comment: DR. Wanda ANN ORDERED CBC Performed By: #### L 502.0250, L501.9985, L100.0100, L500.4050 ####[facility] [address] [place], [address] Neutrophils/100 WBC (Bld) 48.7 % Normal 47-70 [facility] Comment on above: Order Comment: DR. Wanda ANN ORDERED CBC Performed By: #### L 502.0250, L501.9985, L100.0100, L500.4050 ####[facility] [address] [place], [address] Nucleated RBC (Bld) [#/Vol] 0 10*3/uL Normal 0-5 [facility] Comment on above: Order Comment: DR. Wanda ANN ORDERED CBC Performed By: #### L 502.0250, L501.9985, L100.0100, L500.4050 ####[facility] [address] [place], [address] Platelet mean volume (Bld) [Entitic vol] 13.8 fL High 6.2-12.0 [facility] Comment on above: Order Comment: DR. Wanda ANN ORDERED CBC Performed By: #### L 502.0250, L501.9985, L100.0100, L500.4050 ####[facility] [address] [place], [address] Platelets (Bld) [#/Vol] 54 10*3/uL Low 150-450 [facility] Comment on above: Order Comment: DR. Wanda ANN ORDERED CBC Performed By: #### L 502.0250, L501.9985, L100.0100, L500.4050 ####[facility] [address] [place], [address] RBC (Bld) [#/Vol] 4.03 10*6/uL Low 4.2-5.4 [facility] Comment on above: Order Comment: DR. Wanda ANN ORDERED CBC Performed By: #### L 502.0250, L501.9985, L100.0100, L500.4050 ####[facility] [address] [place], [address] RDW SD 53.5 fl High 35.1-43.9 [facility] Comment on above: Order Comment: DR. Wanda ANN ORDERED CBC Performed By: #### L 502.0250, L501.9985, L100.0100, L500.4050 ####[facility] [address] [place], [address] WBC (Bld) [#/Vol] 4.4 10*3/uL Normal 4.4-11.0 [facility] Comment on above: Order Comment: DR. Wanda ANN ORDERED CBC Performed By: #### L 502.0250, L501.9985, L100.0100, L500.4050 ####[facility] [address] [place], [address] Carbon dioxide measurementOr dered By: Angelita Call on 04-03-2024 CO2 [Moles/Vol] 26.0 mmol/L 21.0-32.0 [facility] Chloride measurementOrdered By: Angelita Call on 04-03-2024 Chloride [Moles/Vol] 106 mmol/L 98-107 [facility] Comprehensive Metabolic Prof ilon 04-03-2024 Albumin [Mass/Vol] 3.0 g/dL Low 3.2-5.0 [facility] Comment on above: Order Comment: DR. Wanda ANN ORDERED CBC Performed By: #### L 502.0250, L501.9985, L100.0100, L500.4050 ####[facility] [address] [place], [address] Albumin/Globulin [Mass ratio] 0.7 {ratio} Low 0.9-2.4 [facility] Comment on above: Order Comment: DR. Wanda ANN ORDERED CBC Performed By: #### L 502.0250, L501.9985, L100.0100, L500.4050 ####[facility] [facility] [address] [place], [address] ALK P 279 U/L High 45-117 [facility] Comment on above: Order Comment: DR. Wanda ANN ORDERED CBC Performed By: #### L 502.0250, L501.9985, L100.0100, L500.4050 ####[facility] [address] [place], [address] ALT [Catalytic activity/Vol] 46 U/L Normal 13-56 [facility] Comment on above: Order Comment: DR. Wanda ANN ORDERED CBC Performed By: #### L 502.0250, L501.9985, L100.0100, L500.4050 ####[facility] [address] [place], [address] AST [Catalytic activity/Vol] 76 U/L High 15-37 [facility] Comment on above: Order Comment: DR. Wanda ANN ORDERED CBC Performed By: #### L 502.0250, L501.9985, L100.0100, L500.4050 ####[facility] [address] [place], [address] Bilirubin [Mass/Vol] 1.40 mg/dL High 0.20-1.00 [facility] Comment on above: Order Comment: DR. Wanda ANN ORDERED CBC Result Comment: For patients on eltrombopag therapy, use of Dimension Rogers TBIL is not recommended. Performed By: #### L 502.0250, L501.9985, L100.0100, L500.4050 ####[facility] [address] [place], [address] BUN/CRE 13.7 RATIO Normal 10-20 [facility] Comment on above: Order Comment: DR. Wanda ANN ORDERED CBC Performed By: #### L 502.0250, L501.9985, L100.0100, L500.4050 ####[facility] [address] [place], [address] CA,Total 9.1 mg/dL Normal 8.5-10.1 [facility] Comment on above: Order Comment: DR. Wanda ANN ORDERED CBC Performed By: #### L 502.0250, L501.9985, L100.0100, L500.4050 ####[facility] [address] [place], [address] Chloride [Moles/Vol] 106 mmol/L Normal 98-107 [facility] Comment on above: Order Comment: DR. Wanda ANN ORDERED CBC Performed By: #### L 502.0250, L501.9985, L100.0100, L500.4050 ####[facility] [address] [place], [address] CO2 [Moles/Vol] 26.0 mmol/L Normal 21.0-32.0 [facility] Comment on above: Order Comment: DR. Wanda ANN ORDERED CBC Performed By: #### L 502.0250, L501.9985, L100.0100, L500.4050 ####[facility] [address] [place], [address] Creatinine [Mass/Vol] 0.80 mg/dL Normal 0.55-1.02 [facility] Comment on above: Order Comment: DR. Wanda ANN ORDERED CBC Result Comment: The validity of the calculated GFR GFRAA in patients over 70 years has not been determined. Clinical correlation is essential. Performed By: #### L 502.0250, L501.9985, L100.0100, L500.4050 ####[facility] [address] [place], [address] EST GFR - AA 92 mL/min Normal >60 [facility] Comment on above: Order Comment: DR. Wanda ANN ORDERED CBC Result Comment: Afri can Maldivian GFR Calc Performed By: #### L 502.0250, L501.9985, L100.0100, L500.4050 ####[facility] [address] [place], [address] GAP 4 Low 5-15 [facility] Comment on above: Order Comment: DR. Wanda ANN ORDERED CBC Performed By: #### L 502.0250, L501.9985, L100.0100, L500.4050 ####[facility] [address] [place], [address] GFR/1.73 sq M.predicted among non-blacks MDRD (S/P/Bld) [Vol rate/Area] 76 mL/min/{1.73_m2} Normal >60 [facility] Comment on above: Order Comment: DR. Wanda ANN ORDERED CBC Result Comment: Non- GFR Calc Performed By: #### L 502.0250, L501.9985, L100.0100, L500.4050 ####[facility] [address] [place], [address] Globulin (S) [Mass/Vol] 4.4 g/dL High 2.2-4.2 [facility] Comment on above: Order Comment: DR. Wanda ANN ORDERED CBC Performed By: #### L 502.0250, L501.9985, L100.0100, L500.4050 ####[facility] [address] [place], [address] Glucose [Mass/Vol] 116 mg/dL High 74-106 [facility] Comment on above: Order Comment: DR. Wanda ANN ORDERED CBC Result Comment: Fast ing Glucose result from 100 to 125 mg/dL suggests IMPAIRED HOMEOSTASIS per A.D.A. criteria. Performed By: #### L 502.0250, L501.9985, L100.0100, L500.4050 ####[facility] [address] [place], [address] Potassium [Moles/Vol] 4.1 mmol/L Normal 3.5-5.1 [facility] Comment on above: Order Comment: DR. Wanda ANN ORDERED CBC Performed By: #### L 502.0250, L501.9985, L100.0100, L500.4050 ####[facility] [address] [place], [address] Sodium [Moles/Vol] 136 mmol/L Normal 136-145 [facility] Comment on above: Order Comment: DR. Wanda ANN ORDERED CBC Performed By: #### L 502.0250, L501.9985, L100.0100, L500.4050 ####[facility] [address] [place], [address] T PROT 7.4 g/dL Normal 6.4-8.2 [facility] Comment on above: Order Comment: DR. Wanda ANN ORDERED CBC Performed By: #### L 502.0250, L501.9985, L100.0100, L500.4050 ####[facility] [address] [place], [address] Urea nitrogen [Mass/Vol] 11 mg/dL Normal 7-18 [facility] Comment on above: Order Comment: DR. Wanda ANN ORDERED CBC Performed By: #### L 502.0250, L501.9985, L100.0100, L500.4050 ####[facility] [address] [place], [address] Eosinophil percentageOrdered By: Angelita Call on 04-03-2024 Eosinophils/100 WBC (Bld) 6.6 % High 0-5 [facility] Erythrocyte distribution wid th ratioOrdered By: Angelita Call on 04-03-2024 Erythrocyte distribution width (RBC) [Ratio] 15.5 % High 11.6-14.6 [facility] Erythrocyte distribution wid th standard deviationOrdered By: Angelita Call on 04-03-2024 Erythrocyte distribution width (RBC) [Entitic vol] 53.5 fL High 35.1-43.9 [facility] Estimated glomerular filtrat ion rate (GFR) AmericanOrdered By: Angelita Call on 04-03-2024 Estimated GFR (MDRD) Amer 92 mL/min >60 [facility] Comment on above: GFR Calc Glomerular filtration rate ( GFR) estimationOrdered By: Angelita Call on 04-03-2024 Estimated GFR (MDRD) Non-Af Amer 76 mL/min >60 [facility] Comment on above: Non- GFR Calc Glucose measurementOrdered B y: Angelita Call on 04-03-2024 Glucose [Mass/Vol] 116 mg/dL High 74-106 [facility] Comment on above: Fasting Glucose resu lt from 100 to 125 mg/dL suggests IMPAIRED HOMEOSTASIS per A.D.A. criteria. Hematocrit Auto (Bld) [Volum e fraction]Ordered By: Angelita Call on 04-03-2024 Hematocrit (Bld) [Volume fraction] 37.6 % 37-47 [facility] Hemoglobin A1con 04-03-2024 HbA1c (Bld) [Mass fraction] 6.7 % High 3.8-5.6 [facility] Comment on above: Order Comment: DR. Wanda ANN ORDERED CBC Result Comment: Norm al < 5.7 % Prediabetic 5.7 - 6.4 % Diabetic >or= 6.5 % Please note range changes. Performed By: #### L 502.0250, L501.9985, L100.0100, L500.4050 ####[facility] [address] [place], [address] Hemoglobin A1c percentageOrd ered By: Angelita Call on 04-03-2024 HbA1c (Bld) [Mass fraction] 6.7 % High 3.8-5.6 [facility] Comment on above: Normal < 5.7 % Predi abetic 5.7 - 6.4 % Diabetic >or= 6.5 % Please note range changes. Hemoglobin measurementOrdere d By: Angelita Call on 04-03-2024 Hemoglobin (Bld) [Mass/Vol] 12.3 g/dL 12.0-15.0 [facility] Immature granulocytes/100 WB C Auto (Bld)Ordered By: Angelita Call on 04-03-2024 Immature granulocytes/100 WBC (Bld) 0.000 % 0.0-0.9 [facility] Comment on above: IG% - Immature Granu locytes (promyelocytes, myelocytes and metamyelocytes) > 1% indicates that a LEFT SHIFT is Present. Laboratory - Chemistry and C hemistry - challengeOrdered By: Angelita Call on 04-03-2024 AST [Catalytic activity/Vol] 76 U/L High 15-37 [facility] Lymphocytes Auto (Unsp spec) [#/Vol]Ordered By: Angelita Call on 04-03-2024 Lymphocytes (Bld) [#/Vol] 1.25 10*3/uL 0.83-4.5 1 [facility] Lymphocytes/100 WBC Auto (Un sp spec)Ordered By: Angelita Call on 04-03-2024 Lymphocytes/100 WBC (Bld) 28.5 % 19-41 [facility] MCV (mean corpuscular volume ) determinationOrdered By: Angelita Call on 04-03-2024 MCV (RBC) [Entitic vol] 93.3 fL 81-99 [facility] Mean corpuscular hemoglobin (MCH) determinationOrdered By: Angelita Call on 04-03-2024 MCH (RBC) [Entitic mass] 30.5 pg 27.0-32.0 [facility] Mean corpuscular hemoglobin concentration (MCHC) determinationOrdered By: Angelita Call on 04-03-2024 MCHC (RBC) [Mass/Vol] 32.7 g/dL 32-36 [facility] Mean platelet volume determi nationOrdered By: Angelita Call on 04-03-2024 Platelet mean volume (Bld) [Entitic vol] 13.8 fL High 6.2-12.0 [facility] Microalb:Creat Ratio,Random URon 04-03-2024 Creatinine [Mass/Vol] 75.20 mg/dL Normal NO RAN GE EST. [facility] Comment on above: Order Comment: DR. Wanda ANN ORDERED CBC Performed By: #### L 502.0250, L501.9985, L100.0100, L500.4050 ####[facility] [address] [place], [place], [address] MALB:CRE 14.6 mg/g CRE Normal <30 mg/g CRE [facility] Comment on above: Order Comment: DR. Wanda ANN ORDERED CBC Performed By: #### L 502.0250, L501.9985, L100.0100, L500.4050 ####[facility] [address] [place], [address] MICROALBUMIN,UR 11.0 mg/L Normal NO RANGE EST. [facility] Comment on above: Order Comment: DR. Wanda ANN ORDERED CBC Performed By: #### L 502.0250, L501.9985, L100.0100, L500.4050 ####[facility] [address] [place], [address] Monocyte percentageOrdered B y: Angelita Call on 04-03-2024 Monocytes/100 WBC (Bld) 15.5 % High 0-10 [facility] Neutrophil percentageOrdered By: Angelita Call on 04-03-2024 Neutrophils/100 WBC (Bld) 48.7 % 47-70 [facility] Nucleated red blood cell per centageOrdered By: Angelita Call on 04-03-2024 Nucleated RBC/100 WBC (Bld) [Ratio] 0 % 0-5 [facility] Platelet countOrdered By: Geovanny Call on 04-03-2024 Platelets (Bld) [#/Vol] 54 10*3/uL Low 150-450 [facility] Potassium measurementOrdered By: Angelita Call on 04-03-2024 Potassium [Moles/Vol] 4.1 mmol/L 3.5-5.1 [facility] RBC Auto (Bld) [#/Vol]Ordere d By: Angelita Call on 04-03-2024 RBC (Bld) [#/Vol] 4.03 10*6/uL Low 4.2-5.4 [facility] Random urine microalbumin me asurementOrdered By: Angelita Call on 04-03-2024 Urine Random Microalbumin 11.0 mg/L NO RANGE EST. [facility] Serum anion gap measurementO rdered By: Angelita Call on 04-03-2024 Anion gap [Moles/Vol] 4 mmol/L Low 5-15 [facility] Serum globulin measurementOr dered By: Angelita Call on 04-03-2024 Globulin (S) [Mass/Vol] 4.4 g/dL High 2.2-4.2 [facility] Serum or plasma alanine adames otransferase (ALT) measurementOrdered By: Angelita Call on 04-03-2024 ALT [Catalytic activity/Vol] 46 U/L 13-56 [facility] Serum or plasma albumin cheri urement (mass/volume)Ordered By: Angelita Call on 04-03-2024 Albumin [Mass/Vol] 3.0 g/dL Low 3.2-5.0 [facility] Serum or plasma alkaline iban sphatase measurementOrdered By: Angelita Call on 04-03-2024 ALP [Catalytic activity/Vol] 279 U/L High 45-117 [facility] Serum or plasma calcium cheri urement (mass/volume)Ordered By: Angelita Call on 04-03-2024 Calcium [Mass/Vol] 9.1 mg/dL 8.5-10.1 [facility] Serum or plasma creatinine m easurement (mass/volume)Ordered By: Angelita Call on 04-03-2024 Creatinine [Mass/Vol] 0.80 mg/dL 0.55-1.02 [facility] Comment on above: The validity of the calculated GFR & GFRAA in patients over 70 years has not been determined. Clinical correlation is essential. Serum or plasma urea nitroge n measurement (mass/volume)Ordered By: Angelita Call on 04-03-2024 Urea nitrogen [Mass/Vol] 11 mg/dL 7-18 [facility] Sodium levelOrdered By: Belinda Call on 04-03-2024 Sodium [Moles/Vol] 136 mmol/L 136-145 [facility] Total proteinOrdered By: Prosper Call on 04-03-2024 Protein [Mass/Vol] 7.4 g/dL 6.4-8.2 [facility] Urine albumin/creatinine rat io for detection of microalbuminuriaOrdered By: Angelita Call on 04-03-2024 Urine Microalbumin/Creatinine Ratio 14.6 mg/g CRE <30 [facility] Urine creatinine measurement (mass/volume)Ordered By: Angelita Oneyda on 04-03-2024 Creatinine (U) [Mass/Vol] 75.20 mg/dL NO RANGE EST. [facility] White blood cell (WBC) count Ordered By: Angelita Call on 04-03-2024 WBC (Bld) [#/Vol] 4.4 10*3/uL 4.4-11.0 [facility] L3410.9999on 03-24-2024 [facility] Misc. COMMENT Normal . [facility] Comment on above: Order Comment: [id number] 3URINE DRUG SCREEN Result Comment: Test Ordered: [id number] 6+Oxycodone-Bund Amphetamines, Urine Negative ng/mL UI Reference Range: Erkrrt=6124 Amphetamine test includes Amphetamine and Methamphetamine. Barbiturate Negative ng/mL UI Reference Range: Vvmafs=349 Benzodiazepines Negative ng/mL UI Reference Range: Ljclyw=425 Cannabinoids Negative ng/mL UI Reference Range: Cutoff=20 Cocaine (Metabolite) Negative ng/mL UI Reference Range: Wuzpvo=812 Opiates Note: ng/mL UI See Final Results Reference Range: Rfvygz=970 Opiate test includes Codeine, Morphine, Hydromorphone, Hydrocodone. Opiates Negative ng/mL UI Reference Range: Upncfg=136 Opiate test includes Codeine, Morphine, Hydromorphone, Hydrocodone. Confirmation performed by Mass Spectrometry Oxycodone/Oxymorphone, Urine Negative ng/mL UI Reference Range: Klpbyy=990 Test includes Oxycodone and Oxymorphone Performed at: - [facility] [address] [place], [place] [id number] Mortgage Banker: Royal Baker PhD, Phone: [phone] Performed at: [facility] [address] [id number] Mortgage Banker: Aaron Ackerman PhD, Phone: [phone] Performed By: #### L 3410.9999, L505.5000 ####[facility] [address] [place], [place], [address] Methadone, urineOrdered By: Rehana Vega on 03-21-2024 Urine Methadone Screen Negative < 300 ng/mL [facility] No Panel InformationOrdered By: Rehana Vega on 03-21-2024 Miscellaneous Test COMMENT . [facility] Comment on above: Test Ordered: [id number] 6+Oxycodone-BundAmphetamines, Urine Negative ng/mL UI Reference Range: Rvabhc=5582Rlxjjjycnzd test includes Amphetamine and Methamphetamine.Barbiturate Negative ng/mL UI Reference Range: Pakfmn=364Pmtidvlvsjhtwnb Negative ng/mL UI Reference Range: Axfwko=995Vatgseemdlaa Negative ng/mL UI Reference Range: Cutoff=20Cocaine (Metabolite) Negative ng/mL UI Reference Range: Lkvcis=914Olhtwpz Note: ng/mL UI See Final Results Reference Range: Htsqri=952Kkhhqo test includes Codeine, Morphine, Hydromorphone, Hydrocodone.Opiates Negative ng/mL UI Reference Range: Xhghsf=697Xchgzu test includes Codeine, Morphine, Hydromorphone, Hydrocodone.Confirmation performed by Mass SpectrometryOxycodone/Oxymorphone, Urine Negative ng/mL UI Reference Range: Qvfjlb=122Ikfc includes Oxycodone and OxymorphonePerformed at: - [facility] [address] [place], [place] [id number] Director: Royal Baker PhD, Phone: [phone] at: - [facility] [address] [id number] Director: Aarno Ackerman PhD, Phone: [phone] Urine Drug Screen Comment [facility] Comment on above: CONFIRMATORY TESTING FOR ALL [...] Ql (U) Positive High < 300 ng/mL [facility] Urine Drug Screen (VISTA)on 03-21-2024 AMPHETAMINES Negative Normal <1000 ng/mL [facility] Comment on above: Order Comment: UNK Performed By: #### L 3410.9999, L505.5000 ####[facility] [address] [facility] [address] BARBITIURATES Negative Normal < 200 ng/mL [facility] Comment on above: Order Comment: UNK Performed By: #### L 3410.9999, L505.5000 ####[facility] [address] [place] [id number] BENZODIAZIPINE Negative Normal < 200 ng/mL [facility] Comment on above: Order Comment: UNK Performed By: #### L 3410.9999, L505.5000 ####[facility] [address] [place] [address] COCAINE Negative Normal < 300 ng/mL [facility] Comment on above: Order Comment: UNK Performed By: #### L 3410.9999, L505.5000 ####[facility] [address] [facility] [address] ECSTACY Negative Normal < 500 ng/mL [facility] Comment on above: Order Comment: UNK Performed By: #### L 3410.9999, L505.5000 ####[facility] [address] [facility] [address] METHADONE Negative Normal < 300 ng/mL [facility] Comment on above: Order Comment: UNK Performed By: #### L 3410.9999, L505.5000 ####[facility] [address] [facility] [address] OPIATES Positive Abnormal < 300 ng/mL [facility] Comment on above: Order Comment: UNK Performed By: #### L 3410.9999, L505.5000 ####[facility] [address] [place], [address] PCP Negative Normal < 25 ng/mL [facility] Comment on above: Order Comment: UNK Performed By: #### L 3410.9999, L505.5000 ####[facility] [address] [place], [address] THC Negative Normal < 50 ng/mL [facility] Comment on above: Order Comment: UNK Performed By: #### L 3410.9999, L505.5000 ####[facility] [address] [place], [address] VISTA UDS PH 7 Normal [facility] Comment on above: Order Comment: UNK Performed By: #### L 3410.9999, L505.5000 ####[facility] [address] [place], [address] Urine amphetamine measuremen tOrdered By: Rehana Vega on 03-21-2024 Amphetamines Ql (U) Negative <1000 ng/mL [facility] Urine barbiturates measureme ntOrdered By: Rehana Basali on 03-21-2024 Urine Barbiturates Screen Negative < 200 ng/mL [facility] Urine benzodiazepine levelOr dered By: Rehana Basali on 03-21-2024 Benzodiazepines Ql (U) Negative < 200 ng/mL [facility] Urine cocaine levelOrdered B y: Rehana Basali on 03-21-2024 Cocaine Ql (U) Negative < 300 ng/mL [facility] Urine euqff-1-xgifgolfafwrwy abinol (THC) measurementOrdered By: Rehana Waltersi on 03-21-2024 Cannabinoids Screen Ql (U) Negative < 50 ng/mL [facility] Urine methylenedioxymethamph etamine (MDMA) measurementOrdered By: Rehana Waltersi on 03-21-2024 MDMA (Ecstasy) Screen Negative < 500 ng/mL [facility] Urine phencyclidine (PCP) de tectionOrdered By: Rehana Vega on 03-21-2024 Phencyclidine Ql (U) Negative < 25 ng/mL [facility] Spine Lumbar (Routine)on Spine Lumbar (Routine) [facility] [place] [address] Spine Lumbar (Routine) MR#: [id number] Acct: [id number] Name: MACY MORALES Rep #: [id number] : 1955 F 68 From: Evelio Mauricio MD PCP: Dr. Angelita Call MD Status: REG CLI Study: Spine Lumbar (Routine) Date of Exam: 02/19/24 Exam# [id number] Ordering Dr: Angelita Call MD [id number] EXAM: MR LUMBAR SPINE WITHOUT INTRAVENOUS CONTRAST [...] EST , CC: Dr. Angelita Call MD Manager Support: Signed Normal [facility] IgG Subclasseson 12-23-2023 IgG, SUBCLASS 1 1058 mg/dL High 248-810 [facility] Comment on above: Performed By: #### L 3200.0500 ####[facility] [address] [place], [address] IgG, SUBCLASS 2 450 mg/dL Normal 130-555 [facility] Comment on above: Performed By: #### L 3200.0500 ####[facility] [address] [place], [address] IgG, SUBCLASS 3 41 mg/dL Normal 15-102 [facility] Comment on above: Performed By: #### L 3200.0500 ####[facility] [address] [place], [address] IgG, SUBCLASS 4 47 mg/dL Normal 2-96 [facility] Comment on above: Result Comment: Perf ormed at: CB - [facility] [address] [id number] Mortgage Banker: Aaron Ackerman PhD, Phone: [phone] Performed By: #### L 3200.0500 ####[facility] [address] [place], [address] IGG,QUANT 1713 mg/dL High 586-1602 [facility] Comment on above: Performed By: #### L 3200.0500 ####[facility] [address] [place], [address] HIP, UNI W/ Pelvis 2-3 Views on 12-16-2023 HIP, UNI W/ Pelvis 2-3 Views [facility] [address] [place] [address] HIP, UNI W/ Pelvis 2-3 Views MR#: [id number] Acct: [id number] Name: MACY MORALES Rep #: [id number] : 1955 F 68 From: Ez Penaloza MD PCP: Dr. Angelita Call MD Status: REG CL Study: HIP, UNI W/ Pelvis 2-3 Views Date of Exam: 06/05 Exam# [id number] Ordering Dr: Angelita Call MD [id number] EXAM: XR LEFT HIP WITH PELVIS WHEN [...] EDT , CC: Dr. Angelita Call MD Manager Support: Signed Normal [facility] L/S Spine Min 4 Viewson L/S Spine Min 4 Views [facility] [address] [place] [address] L/S Spine Min 4 Views MR#: [id number] Acct: [id number] Name: MACY MORALES Rep #: [id number] : 1955 F 68 From: Colby Hayward MD PCP: Dr. Angelita Call MD Status: REG CLI Study: L/S Spine Min 4 Views Date of Exam: 12/16/23 Exam# [id number] Ordering Dr: Angelita Call MD [id number] STUDY: X-RAY - LUMBAR SPINE REASON FOR [...] EDT , CC: Dr. Angelita Call MD Manager Support: Signed Normal [facility] Abdomen Limitedon 12-09-2023 Abdomen Limited [facility] [facility] [address] [place] [address] Abdomen Limited MR#: [id number] Acct: [id number] Name: MACY MORALES Rep #: [id number] : 1955 F 68 From: Domingo santamaria MD PCP: Dr. Angelita Call MD Status: REG CLI Study: Abdomen Limited Date of Exam: 12/09/23 Exam# [id number] Ordering Dr: Santino Marie DO 373:[id number] STUDY: ABDOMINAL ULTRASOUND - RIGHT UPPER QUADRANT [...] Dr. Angelita Call MD; Santino Marie DO Manager Support: Signed Normal [facility] AFP, Tumor Markeron 11-26-19 24 AFP TUMOR MYRNA 5.5 ng/mL Normal 0.0-9.2 [facility] Comment on above: Order Comment: DR. Cassius RUIZ ORDERED LIPID,TSH,CMP,CBCDALL THE OTHERS ARE DR. MARIE.NN Result Comment: [employer] Electrochemiluminescence Immunoassay (ECLIA) Values obtained with different assay methods or kits cannot be used interchangeably. Results cannot be interpreted as absolute evidence of the presence or absence of malignant disease. This test is not interpretable in females. Performed at: [facility] [employer] [id number] Mortgage Banker: Aaron Ackerman PhD, Phone: [phone] Performed By: #### L 300.3900, L101.9900, L300.4310, L500.4050, L501.6710, L3300.0700, L100.0100 #### [facility] [address] [place], [address] JONATHAN + Protein Elect, Serumon 11-26-2023 Albumin [Mass/Vol] 3.4 g/dL Normal 2.9-4.4 [facility] Comment on above: Order Comment: DR. Cassius RUIZ ORDERED LIPID,TSH,CMP,CBCDALL THE OTHERS ARE DR. MARIE.NN Performed By: #### L 300.3900, L101.9900, L300.4310, L500.4050, L501.6710, L3300.0700, L100.0100 #### [facility] [address] [place], [address] Albumin/Globulin [Mass ratio] 1.0 {ratio} Normal 0.7-1.7 [facility] Comment on above: Order Comment: DR. Cassius RUIZ ORDERED LIPID,TSH,CMP,CBCDALL THE OTHERS ARE DR. MARIE.NN Performed By: #### L 300.3900, L101.9900, L300.4310, L500.4050, L501.6710, L3300.0700, L100.0100 #### [facility] [address] [facility] [place], [address] [id number] 0.3 g/dL Normal 0.0-0.4 [facility] Comment on above: Order Comment: DR. Cassius RUIZ ORDERED LIPID,TSH,CMP,CBCDALL THE OTHERS ARE DR. MARIE.NN Performed By: #### L 300.3900, L101.9900, L300.4310, L500.4050, L501.6710, L3300.0700, L100.0100 #### [facility] [address] [facility] [place], [address] [id number]-[id number] 0.5 g/dL Normal 0.4-1.0 [facility] Comment on above: Order Comment: DR. Cassius RUIZ ORDERED LIPID,TSH,CMP,CBCDALL THE OTHERS ARE DR. MARIE.NN Performed By: #### L 300.3900, L101.9900, L300.4310, L500.4050, L501.6710, L3300.0700, L100.0100 #### [facility] [address] [place], [address] BETA GLOBULIN 1.1 g/dL Normal 0.7-1.3 [facility] Comment on above: Order Comment: DR. Cassius RUIZ ORDERED LIPID,TSH,CMP,CBCDALL THE OTHERS ARE DR. MARIE.NN Performed By: #### L 300.3900, L101.9900, L300.4310, L500.4050, L501.6710, L3300.0700, L100.0100 #### [facility] [address] [facility] [place], [address] GAMMA GLOBULIN 1.7 g/dL Normal 0.4-1.8 [facility] Comment on above: Order Comment: DR. Cassius RUIZ ORDERED LIPID,TSH,CMP,CBCDALL THE OTHERS ARE DR. MARIE.NN Performed By: #### L 300.3900, L101.9900, L300.4310, L500.4050, L501.6710, L3300.0700, L100.0100 #### [facility] [address] [place], [address] Globulin (S) [Mass/Vol] 3.5 g/dL Normal 2.2-3.9 [facility] Comment on above: Order Comment: DR. Cassius RUIZ ORDERED LIPID,TSH,CMP,CBCDALL THE OTHERS ARE DR. MARIE.NN Performed By: #### L 300.3900, L101.9900, L300.4310, L500.4050, L501.6710, L3300.0700, L100.0100 #### [facility] [address] [place], [address] JONATHAN RESULT,S Comment Normal . [facility] Comment on above: Order Comment: DR. Cassius RUIZ ORDERED LIPID,TSH,CMP,CBCDALL THE OTHERS ARE DR. MARIE.NN Result Comment: No m onoclonality detected. Performed By: #### L 300.3900, L101.9900, L300.4310, L500.4050, L501.6710, L3300.0700, L100.0100 #### [facility] [address] [place], [address] IMMUNOGLOB A QN 546 mg/dL High 87-352 [facility] Comment on above: Order Comment: DR. Cassius RUIZ ORDERED LIPID,TSH,CMP,CBCDALL THE OTHERS ARE DR. MARIE.NN Performed By: #### L 300.3900, L101.9900, L300.4310, L500.4050, L501.6710, L3300.0700, L100.0100 #### [facility] [address] [place], [address] IMMUNOGLOB G QN 1650 mg/dL High 586-1602 [facility] Comment on above: Order Comment: DR. Cassius RUIZ ORDERED LIPID,TSH,CMP,CBCDALL THE OTHERS ARE DR. MARIE.NN Performed By: #### L 300.3900, L101.9900, L300.4310, L500.4050, L501.6710, L3300.0700, L100.0100 #### [facility] [address] [place], [address] IMMUNOGLOB M QN 211 mg/dL Normal 26-217 [facility] Comment on above: Order Comment: DR. Cassius RUIZ ORDERED LIPID,TSH,CMP,CBCDALL THE OTHERS ARE DR. MARIE.NN Performed By: #### L 300.3900, L101.9900, L300.4310, L500.4050, L501.6710, L3300.0700, L100.0100 #### [facility] [address] [place], [place], [phone] ([phone] M-Henry Not Observed Normal Not Observed [facility] Comment on above: Order Comment: DR. Cassius RUIZ ORDERED LIPID,TSH,CMP,CBCDALL THE OTHERS ARE DR. MARIE.NN Performed By: #### L 300.3900, L101.9900, L300.4310, L500.4050, L501.6710, L3300.0700, L100.0100 #### [facility] [address] [place], [address] NOTE: Comment Normal . [facility] Comment on above: Order Comment: DR. Cassius RUIZ ORDERED LIPID,TSH,CMP,CBCDALL THE OTHERS ARE DR. MARIE.NN Result Comment: Prot ein electrophoresis scan will follow via computer, mail, or explosive specialist delivery. Performed By: #### L 300.3900, L101.9900, L300.4310, L500.4050, L501.6710, L3300.0700, L100.0100 #### [facility] [address] [place], [place], [phone] Protein [Mass/Vol] 6.9 g/dL Normal 6.0-8.5 [facility] Comment on above: Order Comment: DR. Cassius RUIZ ORDERED LIPID,TSH,CMP,CBCDALL THE OTHERS ARE DR. MARIE.NN Performed By: #### L 300.3900, L101.9900, L300.4310, L500.4050, L501.6710, L3300.0700, L100.0100 #### [facility] [address] [place], [address] CBC W/Diff, Automatedon 11-13 ATYPICAL LYMPH 1+ Normal [facility] Comment on above: Order Comment: DR. Cassius RUIZ ORDERED LIPID,TSH,CMP,CBCDALL THE OTHERS ARE DR. MARIE. Performed By: #### L 300.3900, L101.9900, L300.4310, L500.4050, L501.6710, L3300.0700, L100.0100 #### [facility] [address] [place], [address] PLT EST MOD DEC Normal ADEQ [facility] Comment on above: Order Comment: DR. Cassius RUIZ ORDERED LIPID,TSH,CMP,CBCDALL THE OTHERS ARE DR. MARIE. Performed By: #### L 300.3900, L101.9900, L300.4310, L500.4050, L501.6710, L3300.0700, L100.0100 #### [facility] [address] [place], [address] Comprehensive Metabolic Prof ilon 11-25-2023 Albumin [Mass/Vol] 3.2 g/dL Normal 3.2-5.0 [facility] Comment on above: Order Comment: DR. Cassius RUIZ ORDERED LIPID,TSH,CMP,CBCDALL THE OTHERS ARE DR. MARIE. Performed By: #### L 300.3900, L101.9900, L300.4310, L500.4050, L501.6710, L3300.0700, L100.0100 #### [facility] [address] [place], [address] Albumin/Globulin [Mass ratio] 0.8 {ratio} Low 0.9-2.4 [facility] Comment on above: Order Comment: DR. Cassius RUIZ ORDERED LIPID,TSH,CMP,CBCDALL THE OTHERS ARE DR. MARIE. Performed By: #### L 300.3900, L101.9900, L300.4310, L500.4050, L501.6710, L3300.0700, L100.0100 #### [facility] [address] [facility] [place], [address] ALK P 242 U/L High 45-117 [facility] Comment on above: Order Comment: DR. Cassius RUIZ ORDERED LIPID,TSH,CMP,CBCDALL THE OTHERS ARE DR. MARIE. Performed By: #### L 300.3900, L101.9900, L300.4310, L500.4050, L501.6710, L3300.0700, L100.0100 #### [facility] [address] [facility] [place], [address] ALT [Catalytic activity/Vol] 51 U/L Normal 13-56 [facility] Comment on above: Order Comment: DR. Cassius RUIZ ORDERED LIPID,TSH,CMP,CBCDALL THE OTHERS ARE DR. MARIE. Performed By: #### L 300.3900, L101.9900, L300.4310, L500.4050, L501.6710, L3300.0700, L100.0100 #### [facility] [address] [facility] [place], [address] AST [Catalytic activity/Vol] 85 U/L High 15-37 [facility] Comment on above: Order Comment: DR. Cassius RUIZ ORDERED LIPID,TSH,CMP,CBCDALL THE OTHERS ARE DR. MARIE. Performed By: #### L 300.3900, L101.9900, L300.4310, L500.4050, L501.6710, L3300.0700, L100.0100 #### [facility] [address] [place], [address] Bilirubin [Mass/Vol] 2.10 mg/dL High 0.20-1.00 [facility] Comment on above: Order Comment: DR. Cassius RUIZ ORDERED LIPID,TSH,CMP,CBCDALL THE OTHERS ARE DR. MARIE. Result Comment: For patients on eltrombopag therapy, use of Dimension Rogers TBIL is not recommended. Performed By: #### L 300.3900, L101.9900, L300.4310, L500.4050, L501.6710, L3300.0700, L100.0100 #### [facility] [address] [place], [address] BUN/CRE 7.6 RATIO Low 10-20 [facility] Comment on above: Order Comment: DR. Cassius RUIZ ORDERED LIPID,TSH,CMP,CBCDALL THE OTHERS ARE DR. MARIE. Performed By: #### L 300.3900, L101.9900, L300.4310, L500.4050, L501.6710, L3300.0700, L100.0100 #### [facility] [address] [place], [address] CA,Total 8.7 mg/dL Normal 8.5-10.1 [facility] Comment on above: Order Comment: DR. Cassius RUIZ ORDERED LIPID,TSH,CMP,CBCDALL THE OTHERS ARE DR. MARIE. Performed By: #### L 300.3900, L101.9900, L300.4310, L500.4050, L501.6710, L3300.0700, L100.0100 #### [facility] [address] [place], [address] Chloride [Moles/Vol] 105 mmol/L Normal 98-107 [facility] Comment on above: Order Comment: DR. Cassius RUIZ ORDERED LIPID,TSH,CMP,CBCDALL THE OTHERS ARE DR. MARIE. Performed By: #### L 300.3900, L101.9900, L300.4310, L500.4050, L501.6710, L3300.0700, L100.0100 #### [facility] [address] [place], [address] CO2 [Moles/Vol] 27.0 mmol/L Normal 21.0-32.0 [facility] Comment on above: Order Comment: DR. Cassius RUIZ ORDERED LIPID,TSH,CMP,CBCDALL THE OTHERS ARE DR. MARIE. Performed By: #### L 300.3900, L101.9900, L300.4310, L500.4050, L501.6710, L3300.0700, L100.0100 #### [facility] [address] [place], [place], [phone] ([phone]) Creatinine [Mass/Vol] 0.92 mg/dL Normal 0.55-1.02 [facility] Comment on above: Order Comment: DR. Cassius RUIZ ORDERED LIPID,TSH,CMP,CBCDALL THE OTHERS ARE DR. MARIE. Result Comment: The validity of the calculated GFR GFRAA in patients over 70 years has not been determined. Clinical correlation is essential. Performed By: #### L 300.3900, L101.9900, L300.4310, L500.4050, L501.6710, L3300.0700, L100.0100 #### [facility] [address] [place], [place], [phone] (120) EST GFR - AA 78 mL/min Normal >60 [facility] Comment on above: Order Comment: DR. Cassius RUIZ ORDERED LIPID,TSH,CMP,CBCDALL THE OTHERS ARE DR. MARIE. Result Comment: Afri can Maldivian GFR Calc Performed By: #### L 300.3900, L101.9900, L300.4310, L500.4050, L501.6710, L3300.0700, L100.0100 #### [facility] [address] [place], [address] GAP 6 Normal 5-15 [facility] Comment on above: Order Comment: DR. Cassius RUIZ ORDERED LIPID,TSH,CMP,CBCDALL THE OTHERS ARE DR. MARIE. Performed By: #### L 300.3900, L101.9900, L300.4310, L500.4050, L501.6710, L3300.0700, L100.0100 #### [facility] [address] [place], [address] GFR/1.73 sq M.predicted among non-blacks MDRD (S/P/Bld) [Vol rate/Area] 65 mL/min/{1.73_m2} Normal >60 [facility] Comment on above: Order Comment: DR. Cassius RUIZ ORDERED LIPID,TSH,CMP,CBCDALL THE OTHERS ARE DR. MARIE. Result Comment: Non- GFR Calc Performed By: #### L 300.3900, L101.9900, L300.4310, L500.4050, L501.6710, L3300.0700, L100.0100 #### [facility] [address] [place], [address] Globulin (S) [Mass/Vol] 4.2 g/dL Normal 2.2-4.2 [facility] Comment on above: Order Comment: DR. Cassius RUIZ ORDERED LIPID,TSH,CMP,CBCDALL THE OTHERS ARE DR. MARIE. Performed By: #### L 300.3900, L101.9900, L300.4310, L500.4050, L501.6710, L3300.0700, L100.0100 #### [facility] [address] [place], [address] Glucose [Mass/Vol] 167 mg/dL High 74-106 [facility] Comment on above: Order Comment: DR. Cassius RUIZ ORDERED LIPID,TSH,CMP,CBCDALL THE OTHERS ARE DR. MARIE. Result Comment: Fast ing Glucose result greater than or equal to 126 mg/dL suggests DIABETES MELLITUS per A.D.A. criteria. Performed By: #### L 300.3900, L101.9900, L300.4310, L500.4050, L501.6710, L3300.0700, L100.0100 #### [facility] [address] [place], [address] Potassium [Moles/Vol] 4.2 mmol/L Normal 3.5-5.1 [facility] Comment on above: Order Comment: DR. Cassius RUIZ ORDERED LIPID,TSH,CMP,CBCDALL THE OTHERS ARE DR. MARIE. Performed By: #### L 300.3900, L101.9900, L300.4310, L500.4050, L501.6710, L3300.0700, L100.0100 #### [facility] [address] [facility] [place], [address] Sodium [Moles/Vol] 138 mmol/L Normal 136-145 [facility] Comment on above: Order Comment: DR. Cassius RUIZ ORDERED LIPID,TSH,CMP,CBCDALL THE OTHERS ARE DR. MARIE. Performed By: #### L 300.3900, L101.9900, L300.4310, L500.4050, L501.6710, L3300.0700, L100.0100 #### [facility] [address] [facility] [place], [address] T PROT 7.4 g/dL Normal 6.4-8.2 [facility] Comment on above: Order Comment: DR. Cassius RUIZ ORDERED LIPID,TSH,CMP,CBCDALL THE OTHERS ARE DR. MARIE. Performed By: #### L 300.3900, L101.9900, L300.4310, L500.4050, L501.6710, L3300.0700, L100.0100 #### [facility] [address] [facility] [place], [address] Urea nitrogen [Mass/Vol] 7 mg/dL Normal 7-18 [facility] Comment on above: Order Comment: DR. Cassius RUIZ ORDERED LIPID,TSH,CMP,CBCDALL THE OTHERS ARE DR. MARIE. Performed By: #### L 300.3900, L101.9900, L300.4310, L500.4050, L501.6710, L3300.0700, L100.0100 #### [facility] [address] [place], [address] Ferritinon 11-25-2023 Ferritin [Mass/Vol] 155 ng/mL Normal 8-252 [facility] Comment on above: Order Comment: DR. Cassius RUIZ ORDERED LIPID,TSH,CMP,CBCDALL THE OTHERS ARE DR. MARIE. Performed By: #### L 300.3900, L101.9900, L300.4310, L500.4050, L501.6710, L3300.0700, L100.0100 #### [facility] [address] [place], [address] Gastroenterology Visit Repor ton 11-25-2023 Gastroenterology Visit Report [facility] [address] [place] [address] OFFICE VISIT Date of Service: 11/25/23 MR#: [id number] Acct: [id number] Name: MACY MORALES Rep #: [id number] : 1955 Provider: Santino Marie DO Age/Sex: 68/F Location: [facility] Status: Signed Intake Vital Signs 07/06/23 11:39 [...] you fallen in the past year?: No [facility] Medical History (Updated 09/27/23 @ 10:04 by [...] (1) Cirrhosis: (more content not included)... Normal [facility] Ironon 11-25-2023 Iron [Mass/Vol] 143 ug/dL Normal 50-170 [facility] Comment on above: Order Comment: DR. Cassius RUIZ ORDERED LIPID,TSH,CMP,CBCDALL THE OTHERS ARE DR. MARIE. Performed By: #### L 300.3900, L101.9900, L300.4310, L500.4050, L501.6710, L3300.0700, L100.0100 #### [facility] [address] [place], [address] Iron Binding Capacity,Totalo n 11-25-2023 TIBC 357 ug/dL Normal 250-450 [facility] Comment on above: Order Comment: DR. Cassius RUIZ ORDERED LIPID,TSH,CMP,CBCDALL THE OTHERS ARE DR. MARIE. Performed By: #### L 300.3900, L101.9900, L300.4310, L500.4050, L501.6710, L3300.0700, L100.0100 #### [facility] [address] [place], [address] Lipid Profileon 11-25-2023 Cholesterol [Mass/Vol] 196 mg/dL Normal 200 [facility] Comment on above: Order Comment: DR. Cassius RUIZ ORDERED LIPID,TSH,CMP,CBCDALL THE OTHERS ARE DR. MARIE. Result Comment: <200 mg/dL Desirable 200-240 mg/dL Borderline >240 mg/dL High Risk Performed By: #### L 300.3900, L101.9900, L300.4310, L500.4050, L501.6710, L3300.0700, L100.0100 #### [facility] [address] [place], [address] Cholesterol in HDL [Mass/Vol] 74 mg/dL Normal [facility] Comment on above: Order Comment: DR. Cassius RUIZ ORDERED LIPID,TSH,CMP,CBCDALL THE OTHERS ARE DR. MARIE. Result Comment: The drugs N-Acetylcysteine and Metamizole may falsely depress this assay. Reference Range HDL <40 mg/dL Low HDL Cholesterol HDL >or= 60 mg/dL High HDL Cholesterol Performed By: #### L 300.3900, L101.9900, L300.4310, L500.4050, L501.6710, L3300.0700, L100.0100 #### [facility] [address] [place], [address] Cholesterol in LDL [Mass/Vol] 102 mg/dL Normal 0-130 [facility] Comment on above: Order Comment: DR. Cassius RUIZ ORDERED LIPID,TSH,CMP,CBCDALL THE OTHERS ARE DR. MARIE. Performed By: #### L 300.3900, L101.9900, L300.4310, L500.4050, L501.6710, L3300.0700, L100.0100 #### [facility] [address] [place], [address] Cholesterol in VLDL [Mass/Vol] 20 mg/dL Normal 5-40 [facility] Comment on above: Order Comment: DR. Cassius RUIZ ORDERED LIPID,TSH,CMP,CBCDALL THE OTHERS ARE DR. MARIE. Performed By: #### L 300.3900, L101.9900, L300.4310, L500.4050, L501.6710, L3300.0700, L100.0100 #### [facility] [address] [place], [address] Triglyceride [Mass/Vol] 100 mg/dL Normal [facility] Comment on above: Order Comment: DR. Cassius RUIZ ORDERED LIPID,TSH,CMP,CBCDALL THE OTHERS ARE DR. MARIE. Result Comment: The drugs N-Acetylcysteine and Metamizole may falsely depress this assay. Serum Triglycerides Reference Interval Normal <150 mg/dL Borderline high 150 - 199 mg/dL High 200 - 499 mg/dL Very High > or = 500 mg/dL Performed By: #### L 300.3900, L101.9900, L300.4310, L500.4050, L501.6710, L3300.0700, L100.0100 #### [facility] [address] [place], [address] Prothrombin Time w/INRon INR Coag (PPP) [Relative time] 1.2 {INR} Normal [facility] Comment on above: Order Comment: DR. Cassius RUIZ ORDERED LIPID,TSH,CMP,CBCDALL THE OTHERS ARE DR. MARIE. Performed By: #### L 300.3900, L101.9900, L300.4310, L500.4050, L501.6710, L3300.0700, L100.0100 #### [facility] [address] [place], [place], [phone] PT Coag (PPP) [Time] 15.1 s High 11.7-14.9 [facility] Comment on above: Order Comment: DR. Cassius RUIZ ORDERED LIPID,TSH,CMP,CBCDALL THE OTHERS ARE DR. MARIE. Performed By: #### L 300.3900, L101.9900, L300.4310, L500.4050, L501.6710, L3300.0700, L100.0100 #### [facility] [address] [place], [place], [id number] Thyroid Stim Hormone (TSH)on 11-25-2023 TSH 6.610 uIU/mL High 0.358-3.74 0 [facility] Comment on above: Order Comment: DR. Cassius RUIZ ORDERED LIPID,TSH,CMP,CBCDALL THE OTHERS ARE DR. MARIE. Performed By: #### L 300.3900, L101.9900, L300.4310, L500.4050, L501.6710, L3300.0700, L100.0100 #### [facility] [address] [place], [place], [phone] CNOVon 09-08-2023 CNOV Office Visit ([facility] ) ----- MACY MORALES ([id number]) 1955 F ARIADNE Date Time Provider Department 09/08/23 12:00 PM BRUCE YU [facility] During your visit today, we recorded the following information about you: Temperature Pulse Respiration Blood pressure 98.7 degrees 78/minute 16/minute 146/92 Weight 85.1 kg Bruce Yu, EFREN.I&C TECH 09/08/2023 1:30 PM Signed Subjective HPI Nontoxic-appearing [...] to tenderness. Does have swelling and bruising. [id number]. No fractures or surgeries in the past. [...] complication, without long-term current use of insulin ([facility]) 04/28/2021 - COVID-19 02/05/2020 - Obesity, Class [...] Normal sensation. (more content not included)... Normal [facility] No Panel Informationon 09-07 IMPRESSION: No acute pathology. Manager Support: KATELYNN Transcribe Date/Time: Sep 08 2023 12:36P Dictated by : LEIGH ANN IRIZARRY DO This examination was interpreted and the report reviewed and electronically signed by: LEIGH ANN IRIZARRY DO on Sep 08 2023 12:39PM EST DIVISION OF RADIOLOGY Radiology Study observation (narrative) [facility] No Panel InformationOrdered By: Ccf Provider on 09-08-2023 [facility] XR HAND 3V PA/LAT/OBL RTon 0 09-08-2023 [...] dislocations are seen. IMPRESSION: No acute pathology. Manager Support: KATELYNN Transcribe Date/Time: Sep 08 2023 12:36P Dictated by : LEIGH ANN IRIZARRY DO This examination was interpreted and the report reviewed and electronically signed by: LEIGH ANN IRIZARRY DO on Sep 08 2023 12:39PM EST [id number] Normal [facility] XR Hand - right PA and Later [...] dislocations are seen. DIVISION OF RADIOLOGY [facility] * * *Final [...] are seen. IMPRESSION IMPRESSION: No acute pathology. Manager Support: [employer] Transcribe Date/Time: Sep 08 2023 12:36P Dictated by : LEIGH ANN IRIZARRY DO This examination was interpreted and the report reviewed and electronically signed by: LEIGH ANN IRIZARRY DO on Sep 08 2023 12:39PM [facility] XR WRIST 4V PA/LAT/OBL/SCAPH RTon 09-08-2023 [...] dislocations are seen. IMPRESSION: No acute pathology. Manager Support: [email or web address] Transcribe Date/Time: Sep 08 2023 12:36P Dictated by : LEIGH ANN IRIZARRY DO This examination was interpreted and the report reviewed and electronically signed by: LEIGH ANN IRIZARRY DO on Sep 08 2023 12:39PM EST [id number] [facility] XR Wrist - right 4 Viewson 0 [...] dislocations are seen. DIVISION OF RADIOLOGY Provider, [facility] - 09/08/2023 * * *Final Report* * [...] are seen. IMPRESSION IMPRESSION: No acute pathology. Manager Support: KATELYNN Transcribe Date/Time: Sep 08 2023 12:36P Dictated by : LEIGH ANN IRIZARRY DO This examination was interpreted and the report reviewed and electronically signed by: LEIGH ANN IRIZARRY DO on Sep 08 2023 12:39PM EST [facility] Aby 08-10-2023 LEIGHA Telephone (INTMWS) ----- MACY MORALES ([id number]) 1955 F [place] Date Time Provider Department 08/10/23 ELDER REDDY During your visit today, we recorded the following information about you: Varghese Mcmahan MA 08/10/2023 11:48 AM Signed Patient failed to cancel today's appointment with PCP and no showed. Letter printed and mailed. Varghese Mcmahan MA Allergies As of Date: 08/10/2023 (No Known Allergies) Date Reviewed: 07/13/2023 Reviewed by: Ana Browning, UNIX ARCHITECT.I&C TECH - Fully Assessed Reason for Visit: No Show [0478] Prescriptions as of 08/10/2023 - amLODIPine (NORVASC) [...] Encounter Status:Closed by VARGHESE MCMAHAN on 08/10/23 [facility] Aby 07-16-2023 CNPN Telephone (INTMWS) ----- MACY MORALES ([id number]) 1955 F [place] Date Time Provider Department 07/16/23 ANA BROWNING During your visit today, we recorded the following information about you: Som Valadez, PAIGE 07/16/2023 1:36 PM Signed ----- Message from Ana Browning APRN.I&C TECH sent at 07/16/2023 12:34 PM EDT ----- [...] or sooner if any worsening. Ana Browning APRN.Som Duarte RN 07/16/2023 1:38 PM Signed Called and spoke with pt who speaks Dominican. Went over results and Ana's information and instructions. Pt appeared to understand. She states the hospital gave her a lot, a lot of IV fluids. Pt will call back if swelling does not improve. Allergies As of Date: 07/16/2023 (No Known Allergies) Date Reviewed: 07/13/2023 Reviewed by: Ana Browning APRN.I&C TECH - Fully Assessed Reason for Visit: Results [...] Status:Closed by SOM VALADEZ on 07/16/23 [facility] Basophil percentageOrdered B y: Ana Mccarty on 07-13-2023 Hemoglobin (Bld) [Mass/Vol] 12.2 g/dL 12.0-15.0 [facility] WBC (Bld) [#/Vol] 5.2 10*3/uL 4.4-11.0 [facility] Basophil percentageOrdered B y: Elder Simeon on 07-13-2023 Chloride [Moles/Vol] 111 mmol/L 98-107 [facility] Glucose [Mass/Vol] 93 mg/dL 74-106 [facility] Potassium [Moles/Vol] 4.7 mmol/L 3.5-5.1 [facility] Sodium [Moles/Vol] 137 mmol/L 136-145 [facility] CNOVon 07-13-2023 CNOV Office Visit (INTMWS ) ----- MACY MORALES ([id number]) 1955 F [place] Date Time Provider Department 07/13/23 9:40 AM ANA BROWNING INTMWS During your visit today, we recorded the following information about you: Pulse Respiration Blood pressure Weight 84/minute 16/minute 148/76 89.8 kg Ana Browning, UNIX ARCHITECT.[facility] 07/13/2023 11:38 AM Signed CC: Patient presents with: Hospital F/U [facility] Macy Morales is a 67 year old female who presents today with her daughter for above. Patient speaks some Dominican, daughter is helping with any necessary translations. They declined science interpreter phone. Patient was admitted to [facility] from 07/05 to 07/08 for VIKA. [...] better. She is scheduled with GI Dr. Friend but not until August, her other [...] affected are (more content not included)... [facility] Determination of erythrocyte mean corpuscular volume (MCV)Ordered By: Ana Mccarty on 07-13-2023 MCV (RBC) [Entitic vol] 91.9 fL 81-99 [facility] Erythrocyte distribution wid th ratioOrdered By: Ana Mccarty on 07-13-2023 Erythrocyte distribution width (RBC) [Ratio] 14.5 % 11.6-14.6 [facility] Erythrocyte distribution wid th standard deviationOrdered By: Ana Mccarty on 07-13-2023 Erythrocyte distribution width (RBC) [Entitic vol] 49.0 fL 35.1-43.9 [facility] Hematocrit Auto (Bld) [Volum e fraction]Ordered By: Ana Mccarty on 07-13-2023 Hematocrit (Bld) [Volume fraction] 36.1 % 37-47 [facility] Laboratory - Chemistry and C hemistry - challengeOrdered By: Ana Mccarty on 07-13-2023 Natriuretic peptide B (Bld) [Mass/Vol] 220.8 pg/mL 0-100 [facility] Laboratory - Chemistry and C hemistry - challengeOrdered By: Elder Reddy on 07-13-2023 CO2 [Moles/Vol] 22.0 mmol/L 21.0-32.0 [facility] Urea nitrogen/Creatinine [Mass ratio] 9.6 mg/mg 10-20 [facility] Laboratory - Hematology and Cell countsOrdered By: Ana Mccarty on 07-13-2023 MCH (RBC) [Entitic mass] 31.0 pg 27.0-32.0 [facility] MCHC (RBC) [Mass/Vol] 33.8 g/dL 32-36 [facility] Platelet mean volume (Bld) [Entitic vol] 12.1 fL 6.2-12.0 [facility] Platelets (Bld) [#/Vol] 83 10*3/uL 150-450 [facility] No Panel InformationOrdered By: Elder Reddy on 07-13-2023 Estimated GFR (MDRD) Amer 29 mL/min >60 [facility] Comment on above: GFR Calc Estimated GFR (MDRD) Non-Af Amer 24 mL/min >60 [facility] Comment on above: Non- GFR Calc RBC Auto (Bld) [#/Vol]Ordere d By: Ana Mccarty on 07-13-2023 RBC (Bld) [#/Vol] 3.93 10*6/uL 4.2-5.4 [facility] Serum or plasma calcium cheri urement (mass/volume)Ordered By: Elder Reddy on 07-13-2023 Calcium [Mass/Vol] 9.4 mg/dL 8.5-10.1 [facility] Serum or plasma creatinine m easurement (mass/volume)Ordered By: Elder Reddy on 07-13-2023 Creatinine [Mass/Vol] 2.18 mg/dL 0.55-1.02 [facility] Comment on above: The validity of the calculated GFR & GFRAA in patients over 70 years has not been determined. Clinical correlation is essential. Serum or plasma urea nitroge n measurement (mass/volume)Ordered By: Elder Reddy on 07-13-2023 Urea nitrogen [Mass/Vol] 21 mg/dL 7-18 [facility] Thin prep Papanicolaou smear with manual screeningOrdered By: Elder Reddy on 07-13-2023 Thin prep Papanicolaou smear with manual screening 4 5-15 [facility] XR CHEST 2V FRONTAL/LATon XR CHEST 2V [...] spine. IMPRESSION: Stable exam without acute findings. Manager Support: KATELYNN Transcribe Date/Time: Jul 13 2023 11:27A Dictated by : JADE FISHER MD This examination was interpreted and the report reviewed and electronically signed by: JADE FISHER MD on Jul 13 2023 11:28AM EST [id number] [facility] XR Chest PA and Lateralon IMPRESSION: Stable exam without acute findings. Manager Support: [facility] Transcribe Date/Time: Jul 13 2023 11:27A Dictated [...] in the spine. DIVISION OF RADIOLOGY Provider, [facility] - 07/13/2023 * * *Final Report* * [...] IMPRESSION IMPRESSION: Stable exam without acute findings. Manager Support: KATELYNN Transcribe Date/Time: Jul 13 2023 11:27A Dictated by : JADE FISHER MD This examination was interpreted and the report reviewed and electronically signed by: JADE FISHER MD on Jul 13 2023 11:28AM EST [facility] Radiology Study observation (narrative) [facility] XR Chest PA and LateralOrder ed By: Ccf Provider on 07-13-2023 [facility] Absolute lymphocyte countOrd ered By: Myrna Delgado on 07-09-2023 Lymphocytes Auto (Unsp spec) [#/Vol] 1.49 10*3/uL 0.83-4.51 [facility] Automated lymphocyte count a s percentage of total leukocytesOrdered By: Myrna Delgado on 07-09-2023 Lymphocytes/100 WBC Auto (Unsp spec) 29.6 % 19-41 [facility] Basophil percentageOrdered B y: Myrna Delgado on 07-09-2023 Basophil percentage 3.0 mg/dL 2.5-4.9 [facility] Basophils/100 WBC (Bld) 0.6 % 0-1 [facility] Chloride [Moles/Vol] 117 mmol/L 98-107 [facility] Eosinophils/100 WBC (Bld) 5.8 % 0-5 [facility] Glucose [Mass/Vol] 82 mg/dL 74-106 [facility] Hemoglobin (Bld) [Mass/Vol] 11.6 g/dL 12.0-15.0 [facility] Monocytes/100 WBC (Bld) 11.1 % 0-10 [facility] Neutrophils (Bld) [#/Vol] 2.7 10*3/uL 2.0-7.7 [facility] Neutrophils/100 WBC (Bld) 52.5 % 47-70 [facility] Potassium [Moles/Vol] 4.3 mmol/L 3.5-5.1 [facility] Sodium [Moles/Vol] 139 mmol/L 136-145 [facility] WBC (Bld) [#/Vol] 5.0 10*3/uL 4.4-11.0 [facility] Determination of erythrocyte mean corpuscular volume (MCV)Ordered By: Myrna Delgado on 07-09-2023 MCV (RBC) [Entitic vol] 94.2 fL 81-99 [facility] Erythrocyte distribution wid th ratioOrdered By: Myrna Delgado on 07-09-2023 Erythrocyte distribution width (RBC) [Ratio] 15.1 % 11.6-14.6 [facility] Erythrocyte distribution wid th standard deviationOrdered By: Myrna Delgado on 07-09-2023 Erythrocyte distribution width (RBC) [Entitic vol] 52.2 fL 35.1-43.9 [facility] Hematocrit Auto (Bld) [Volum e fraction]Ordered By: Myrna Delgado on 07-09-2023 Hematocrit (Bld) [Volume fraction] 35.5 % 37-47 [facility] Immature granulocytes/100 WB C Auto (Bld)Ordered By: Myrna Delgado on 07-09-2023 Immature granulocytes/100 WBC (Bld) 0.400 % 0.0-0.9 [facility] Comment on above: IG% - Immature Granu locytes (promyelocytes, myelocytes and metamyelocytes) > 1% indicates that a LEFT SHIFT is Present. Laboratory - Chemistry and C hemistry - challengeOrdered By: Myrna Delgado on 07-09-2023 CO2 [Moles/Vol] 15.0 mmol/L 21.0-32.0 [facility] Urea nitrogen/Creatinine [Mass ratio] 10.5 mg/mg 10-20 [facility] Laboratory - Hematology and Cell countsOrdered By: Myrna Delgado on 07-09-2023 MCH (RBC) [Entitic mass] 30.8 pg 27.0-32.0 [facility] MCHC (RBC) [Mass/Vol] 32.7 g/dL 32-36 [facility] Nucleated RBC/100 WBC (Bld) [Ratio] 0 % 0-5 [facility] Platelet mean volume (Bld) [Entitic vol] 12.3 fL 6.2-12.0 [facility] Platelets (Bld) [#/Vol] 55 10*3/uL 150-450 [facility] No Panel InformationOrdered By: Myrna Delgado on 07-09-2023 Estimated Creatinine Clearance Calc 24.04 ml/min [facility] Estimated GFR (MDRD) Amer 26 mL/min >60 [facility] Comment on above: GFR Calc Estimated GFR (MDRD) Non-Af Amer 22 mL/min >60 [facility] Comment on above: Non- GFR Calc RBC Auto (Bld) [#/Vol]Ordere d By: Myrna Delgado on 07-09-2023 RBC (Bld) [#/Vol] 3.77 10*6/uL 4.2-5.4 [facility] Serum or plasma calcium cheri urement (mass/volume)Ordered By: Myrna Delgado on 07-09-2023 Calcium [Mass/Vol] 8.1 mg/dL 8.5-10.1 [facility] Serum or plasma creatinine m easurement (mass/volume)Ordered By: Myrna Delgado on 07-09-2023 Creatinine [Mass/Vol] 2.37 mg/dL 0.55-1.02 [facility] Comment on above: The validity of the calculated GFR & GFRAA in patients over 70 years has not been determined. Clinical correlation is essential. Serum or plasma urea nitroge n measurement (mass/volume)Ordered By: Myrna Delgado on 07-09-2023 Urea nitrogen [Mass/Vol] 25 mg/dL 7-18 [facility] Thin prep Papanicolaou smear with manual screeningOrdered By: Myrna Delgado on 07-09-2023 Thin prep Papanicolaou smear with manual screening 2.9 g/dL 3.2-5.0 [facility] Basophil percentageOrdered B y: Yecenia Quinonez on 07-08-2023 LDH [Catalytic activity/Vol] 304 U/L 84-246 [facility] Laboratory - Chemistry and C hemistry - challengeOrdered By: Yecenia Quinonez on 07-08-2023 Sodium (U) [Moles/Vol] 44 mmol/L Not Establ. [facility] No Panel InformationOrdered By: Yecenia Quinonez on 07-08-2023 Haptoglobin 38 mg/dL 37-355 [facility] Comment on above: Performed at: [place] [id number] Director: Aaron Ackerman PhD, Phone: [phone] Albumin Elph [Mass/Vol]Order ed By: Santino Marie on 07-07-2023 Albumin [Mass/Vol] 3.4 g/dL 2.9-4.4 [facility] Basophil percentageOrdered B y: Santino Marie on 07-07-2023 Ammonia (P) [Moles/Vol] 14.0 umol/L 11-32 [facility] Amylase [Catalytic activity/Vol] 67 U/L 25-115 [facility] Clostridioides difficile nuc leic acid assay by PCROrdered By: Stephanie Han on 07-07-2023 C. difficile DNA CHIVO+probe Ql (Unsp spec) [facility] Interpretation of serum or p lasma protein pattern by immunofixation (narrative resultOrdered By: Santino Marie on 07-07-2023 Protein Fractions Immunofixation Angel [Interp] Not Observed g/dL Not Observed [facility] Iron measurement (mass/mass) Ordered By: Santino Marie on 07-07-2023 Iron (Unsp spec) [Mass/Mass] 91 ug/dL 50-170 [facility] Laboratory - Chemistry and C hemistry - challengeOrdered By: Santino Marie on 07-07-2023 Ferritin [Mass/Vol] 107 ng/mL 8-252 [facility] Lipase [Catalytic activity/Vol] 39 U/L 13-75 [facility] Comment on above: Please note:LIPASE r evised reference range effective 22. New Lipase methodology. Expected to produce lower values than the previous assay method. NEW Reference Range: 13 - 75 U/L No Panel InformationOrdered By: Santino Marie on 07-07-2023 Addendum Document Comment . [facility] Comment on above: Protein electrophore sis scan will follow via computer,mail, or explosive specialist delivery. Atypical p-ANCA <1:20 titer Neg:<1:20 [facility] Comment on above: The atypical pANCA p attern has been observed in asignificant percentage of patients with ulcerative colitis,primary sclerosing cholangitis and autoimmune hepatitis. Centromere B Antibody <0.2 AI 0.0-0.9 [facility] Ceruloplasmin 28.5 mg/dL 19.0-39.0 [facility] Comment on above: Performed at: [facility] [employer] [address] [id number] Director: Aaron Ackerman PhD, Phone: [phone] at: [facility] [address] [id number] Director: Lizzeth Dumont MD, Phone: [phone] Immunoglobulin E 104 IU/mL 6-495 [facility] Immunoglobulin M 156 mg/dL 26-217 [facility] MADDY-1 Antibody <0.2 AI 0.0-0.9 [facility] NEW MEDIA STRATEGIST Antibody <0.2 AI 0.0-0.9 [facility] SM Antibody <0.2 AI 0.0-0.9 [facility] SS-A/Ro IgG Antibody < 0.2 AI 0.0-0.9 [facility] SS-B/La IgG Antibody < 0.2 AI 0.0-0.9 [facility] Total Iron Binding Capacity 365 ug/dL 250-450 [facility] Tumor Marker Alpha Fetoprotein 4.9 ng/mL 0.0-9.2 [facility] Comment on above: [employer] El ectrochemiluminescence Immunoassay(ECLIA)Values obtained with different assay methods or kits cannotbe used interchangeably. Results cannot be interpreted asabsolute evidence of the presence or absence of malignantdisease.This test is not interpretable in females. Ova and parasitesOrdered By: Stephanie Han on 07-07-2023 Ova and parasites identified LM Nom (Unsp spec) [facility] Serum DNA double strand anti body assay (units/volume)Ordered By: Santino Marie on 07-07-2023 DNA double strand Ab Qn (S) [IU]/mL 0-9 [facility] Comment on above: Negative <5 Equivoca l 5 - 9 Positive >9 Serum Scl-70 antibody assay (units/volume)Ordered By: Santino Marie on 07-07-2023 SCL-70 extractable nuclear Ab Qn (S) <0.2 AI 0.0-0.9 [facility] Serum [id number] me asurementOrdered By: Santino Marie on 07-07-2023 Alpha 1 antitrypsin [Mass/Vol] 170 mg/dL 101-187 [facility] Comment on above: Performed at: [place] [id number] Director: Aaron Ackerman PhD, Phone: [phone] Serum [id number] measu rement by electrophoresisOrdered By: Santino Marie on 07-07-2023 Alpha 1 globulin Elph [Mass/Vol] 0.3 g/dL 0.0-0.4 [facility] Alpha 1 globulin Elph [Mass/Vol] 0.5 g/dL 0.4-1.0 [facility] Serum classic neutrophil cyt oplasmic antibody assay (units/volume)Ordered By: Santino Marie on 07-07-2023 Neutrophil cytoplasmic Ab.classic Qn (S) <1:20 titer Neg:<1:20 [facility] Serum globulin measurement ( mass/volume)Ordered By: Santino Marie on 07-07-2023 Globulin (S) [Mass/Vol] 3.0 g/dL 2.2-3.9 [facility] Serum mitochondria antibody detectionOrdered By: Santino Marie on 07-07-2023 Mitochondria Ab Ql (S) <20.0 Units 0.0-20.0 [facility] Comment on above: Negative 0.0 - 20.0 Equivocal 20.1 - 24.9 Positive >24.9Mitochondrial (M2) Antibodies are found in 90-96% ofpatients with primary biliary cirrhosis. Serum or plasma IgA measurem ent (mass/volume)Ordered By: Santino Marie on 07-07-2023 IgA [Mass/Vol] 373 mg/dL 87-352 [facility] Serum or plasma IgG measurem ent (mass/volume)Ordered By: Santino Marie on 07-07-2023 IgG [Mass/Vol] 1298 mg/dL 586-1602 [facility] Serum or plasma actin IgG an tibody assay (units/volume)Ordered By: Santino Marie on 07-07-2023 Actin IgG Qn 7 Units 0-19 [facility] Comment on above: Negative 0 - 19 Weak positive 20 - 30 Moderate to strong positive >30 Actin Antibodies are found in 52-85% of patients with autoimmune hepatitis or chronic active hepatitis and in 22% of patients with primary biliary cirrhosis. Serum or plasma beta globuli n measurement by electrophoresis (mass/volume)Ordered By: Santino Marie on 07-07-2023 Beta globulin Elph [Mass/Vol] 1.0 g/dL 0.7-1.3 [facility] Serum or plasma gamma globul in measurement by electrophoresis (mass/volume)Ordered By: Santinoadolfo Marie on 07-07-2023 Gamma globulin Elph [Mass/Vol] 1.3 g/dL 0.4-1.8 [facility] Serum or plasma immunoelectr ophoresis interpretation (nominal result)Ordered By: Santino Marie on 07-07-2023 Interpretation IEP [Interp] Comment . [facility] Comment on above: No monoclonality det ected. Serum or plasma iron saturat ion measurement (mass fraction)Ordered By: Santino Marie on 07-07-2023 Iron saturation [Mass fraction] 24.9 % 15.0-55.0 [facility] Serum perinuclear neutrophil cytoplasmic antibody titer by immunofluorescenceOrdered By: Santino Marie on 07-07-2023 Neutrophil cytoplasmic Ab.perinuclear IF (S) [Titer] <1:20 titer Neg:<1:20 [facility] Comment on above: The presence of posi tive fluorescence exhibiting P-ANCA orC-ANCA patterns alone is not specific for the diagnosis ofWegener's Granulomatosis (WG) or microscopic polyangiitis.Decisions about treatment should not be based solely onANCA IFA results. The [employer] ANCA Group Consensusrecommends follow up testing of positive sera with both VA-3 and MPO-ANCA enzyme immunoassays. As many as 5% serumsamples are positive only by EIA. Ref. AM J Clin Esabpz9102;111:507-513. Stool enteric pathogen panel by probe and target amplification methodOrdered By: Stephanie Han on 07-07-2023 Gastrointestinal pathogens panel CHIVO+probe (Stl) [facility] Stool lactoferrin detection by immunoassayOrdered By: Stephanie Han on 07-07-2023 Lactoferrin IA Ql (Stl) [facility] Thin prep Papanicolaou smear with manual screeningOrdered By: Santino Marie on 07-07-2023 Thin prep Papanicolaou smear with manual screening 1.2 0.7-1.7 [facility] Thin prep Papanicolaou smear with manual screeningOrdered By: Myrna Delgado on 07-07-2023 Thin prep Papanicolaou smear with manual screening 4 5-15 [facility] Total protein bloodOrdered B y: Santino Marie on 07-07-2023 Protein [Mass/Vol] 6.4 g/dL 6.0-8.5 [facility] Absolute lymphocyte countOrd ered By: Mayo Mccullough on 07-06-2023 Lymphocytes Auto (Unsp spec) [#/Vol] 1.13 10*3/uL 0.83-4.51 [facility] Activated partial thrombopla stin time (aPTT) in platelet poor plasma by coagulation aOrdered By: Mayo Mccullough on 07-06-2023 aPTT Coag (PPP) [Time] 36.7 s 24.1-36.2 [facility] Automated lymphocyte count a s percentage of total leukocytesOrdered By: Mayo Mccullough on 07-06-2023 Lymphocytes/100 WBC Auto (Unsp spec) 19.0 % 19-41 [facility] Basophil percentageOrdered B y: Stephanie Han on 07-06-2023 Bilirubin [Mass/Vol] 1.30 mg/dL 0.20-1.00 [facility] Comment on above: For patients on eltr ombopag therapy, use of Dimension Rogers TBIL is not recommended. Lactate [Moles/Vol] 1.0 mmol/L 0.4-2.0 [facility] Protein [Mass/Vol] 6.6 g/dL 6.4-8.2 [facility] Basophil percentageOrdered B y: Mayo Nealeriberto on 07-06-2023 Basophil percentage 0-5 SEEN /hpf 0-5 [facility] Basophils/100 WBC (Bld) 0.3 % 0-1 [facility] Bilirubin [Mass/Vol] 1.30 mg/dL 0.20-1.00 [facility] Comment on above: For patients on eltr ombopag therapy, use of Dimension Rogers TBIL is not recommended. Chloride [Moles/Vol] 108 mmol/L 98-107 [facility] Eosinophils/100 WBC (Bld) 3.7 % 0-5 [facility] Glucose [Mass/Vol] 116 mg/dL 74-106 [facility] Comment on above: Fasting Glucose resu lt from 100 to 125 mg/dL suggests IMPAIRED HOMEOSTASIS per A.D.A. criteria. Hemoglobin (Bld) [Mass/Vol] 13.1 g/dL 12.0-15.0 [facility] Monocytes/100 WBC (Bld) 11.1 % 0-10 [facility] Neutrophils (Bld) [#/Vol] 3.9 10*3/uL 2.0-7.7 [facility] Neutrophils/100 WBC (Bld) 65.4 % 47-70 [facility] Potassium [Moles/Vol] 4.8 mmol/L 3.5-5.1 [facility] Protein [Mass/Vol] 7.7 g/dL 6.4-8.2 [facility] Sodium [Moles/Vol] 135 mmol/L 136-145 [facility] [facility] (Bld) [#/Vol] 6.0 10*3/uL 4.4-11.0 [facility] Bilirubin Test strip Ql (U)O rdered By: Mayo Nealeriberto on 07-06-2023 Bilirubin Ql (U) Negative Negative [facility] CNPNon 07-06-2023 CNPN Telephone (INTWS) ----- MACY MORALES ([id number]) 1955 F [place] Date Time Provider Department 07/06/23 ELDER REDDY During your visit today, we recorded the following information about you: Cassius Ayers, RN 07/06/2023 10:44 AM Signed Daughter, Ingris, reports patient missed her appt today because she was seen in [facility] ER and admitted to ICU. Ingris [...] with pt when she is d/c from [facility] for a hospital follow up. Allergies [...] Status:Closed by Cassius AYERS on 07/27/23 [facility] Determination of erythrocyte mean corpuscular volume (MCV)Ordered By: Mayo Mccullough on 07-06-2023 MCV (RBC) [Entitic vol] 91.2 fL 81-99 [facility] Direct bilirubinOrdered By: Mayo Mccullough on 07-06-2023 Bilirubin.direct [Mass/Vol] 0.55 mg/dL 0.00-0.30 [facility] Erythrocyte distribution wid th ratioOrdered By: Mayo Mccullough on 07-06-2023 Erythrocyte distribution width (RBC) [Ratio] 14.6 % 11.6-14.6 [facility] Erythrocyte distribution wid th standard deviationOrdered By: Mayo Mccullough on 07-06-2023 Erythrocyte distribution width (RBC) [Entitic vol] 49.2 fL 35.1-43.9 [facility] Hematocrit Auto (Bld) [Volum e fraction]Ordered By: Mayo Mccullough on 07-06-2023 Hematocrit (Bld) [Volume fraction] 39.6 % 37-47 [facility] Immature granulocytes/100 WB C Auto (Bld)Ordered By: Mayo Mccullough on 07-06-2023 Immature granulocytes/100 WBC (Bld) 0.500 % 0.0-0.9 [facility] Comment on above: IG% - Immature Granu locytes (promyelocytes, myelocytes and metamyelocytes) > 1% indicates that a LEFT SHIFT is Present. Ketones Test strip Ql (U)Ord ered By: Mayo Mccullough on 07-06-2023 Ketones Ql (U) Negative Negative [facility] Laboratory - Chemistry and C hemistry - challengeOrdered By: Stephanie Han on 07-06-2023 Albumin/Globulin [Mass ratio] 0.9 {ratio} 0.9-2.4 [facility] ALP [Catalytic activity/Vol] 157 U/L -117 [facility] ALT [Catalytic activity/Vol] 46 U/L [facility] Globulin (S) [Mass/Vol] 3.4 g/dL 2.2-4.2 [facility] Magnesium [Mass/Vol] 2.0 mg/dL 1.6-2.6 [facility] Laboratory - Chemistry and C hemistry - challengeOrdered By: Mayo Mccullough on 07-06-2023 ALP [Catalytic activity/Vol] 197 U/L 45-117 [facility] ALT [Catalytic activity/Vol] 52 U/L [facility] CO2 [Moles/Vol] 21.0 mmol/L 21.0-32.0 [facility] Globulin (S) [Mass/Vol] 4.1 g/dL 2.2-4.2 [facility] Lipase [Catalytic activity/Vol] 43 U/L [facility] Comment on above: Please note:LIPASE r evised reference range effective 22. New Lipase methodology. Expected to produce lower values than the previous assay method. NEW Reference Range: 13 - 75 U/L Urea nitrogen/Creatinine [Mass ratio] 10.4 mg/mg 10-20 [facility] Laboratory - CoagulationOrde red By: Mayo Mccullough on 07-06-2023 INR Coag (Bld) [Relative time] 1.1 {INR} [facility] PT Coag (PPP) [Time] 14.4 s 11.7-14.9 [facility] Laboratory - Hematology and Cell countsOrdered By: Mayo Mccullough on 07-06-2023 MCH (RBC) [Entitic mass] 30.2 pg 27.0-32.0 [facility] MCHC (RBC) [Mass/Vol] 33.1 g/dL 32-36 [facility] Nucleated RBC/100 WBC (Bld) [Ratio] 0 % 0-5 [facility] Platelet mean volume (Bld) [Entitic vol] 12.4 fL 6.2-12.0 [facility] Platelets (Bld) [#/Vol] 59 10*3/uL 150-450 [facility] Mucus LM Ql (Urine sed)Order ed By: Mayo Mccullough on 07-06-2023 Mucus Ql (Urine sed) 0 SEEN /hpf [facility] Nitrite Test strip Ql (U)Ord ered By: Mayo Mccullough on 07-06-2023 Nitrite Ql (U) Negative Negative [facility] No Panel InformationOrdered By: Stephanie Han on 07-06-2023 Hepatitis A IgM Antibody Negative Negative [facility] Hepatitis B Core IgM Antibody Negative Negative [facility] Hepatitis C Antibody (EIA) Non-Reactive Non Reactive [facility] Hepatitis C Antibody Comment Comment . [facility] Comment on above: Not infected with HC V unless early or acute infection issuspected (which may be delayed in an immunocompromisedindividual), or other evidence exists to indicate HCVinfection.Performed at: [facility] [id number] Director: Aaron Ackerman PhD, Phone: [phone] No Panel InformationOrdered By: Mayo Mccullough on 07-06-2023 Urine RBC 0 SEEN /hpf 0-5 [facility] Estimated Creatinine Clearance Calc 18.78 ml/min [facility] Estimated GFR (MDRD) Amer 21 mL/min >60 [facility] Comment on above: GFR Calc Estimated GFR (MDRD) Non-Af Amer 17 mL/min >60 [facility] Comment on above: Non- GFR Calc Protein Test strip Ql (U)Ord ered By: Mayo Mccullough on 07-06-2023 Protein Ql (U) Negative Negative [facility] RBC Auto (Bld) [#/Vol]Ordere d By: Mayo Mccullough on 07-06-2023 RBC (Bld) [#/Vol] 4.34 10*6/uL 4.2-5.4 [facility] Serum or plasma calcium cheri urement (mass/volume)Ordered By: Mayo Mccullough on 07-06-2023 Calcium [Mass/Vol] 8.4 mg/dL 8.5-10.1 [facility] Serum or plasma creatinine m easurement (mass/volume)Ordered By: Mayo Mccullough on 07-06-2023 Creatinine [Mass/Vol] 2.88 mg/dL 0.55-1.02 [facility] Comment on above: The validity of the calculated GFR & GFRAA in patients over 70 years has not been determined. Clinical correlation is essential. Serum or plasma hepatitis B virus surface antigen detection by immunoassayOrdered By: Stephanie Han on 07-06-2023 HBV surface Ag IA Ql Negative Negative [facility] Serum or plasma urea nitroge n measurement (mass/volume)Ordered By: Mayo Mccullough on 07-06-2023 Urea nitrogen [Mass/Vol] 30 mg/dL 7-18 [facility] Squamous epithelial cells de tection in urine sediment by light microscopyOrdered By: Mayo Mccullough on 07-06-2023 Epithelial cells.squamous LM Ql (Urine sed) 0-5 SEEN /hpf 5-10 [facility] Stool gastrointestinal hemog lobin detection by immunologic methodOrdered By: Mayo Mccullough on 07-06-2023 Lower GI hemoglobin IA Ql (Stl) [facility] Thin prep Papanicolaou smear with manual screeningOrdered By: Stephanie Han on 07-06-2023 Thin prep Papanicolaou smear with manual screening 57 U/L 15-37 [facility] Thin prep Papanicolaou smear with manual screeningOrdered By: Mayo Mccullough on 07-06-2023 Thin prep Papanicolaou smear with manual screening 3.6 g/dL 3.2-5.0 [facility] Thin prep Papanicolaou smear with manual screening 67 U/L 15-37 [facility] Thin prep Papanicolaou smear with manual screening 6 5-15 [facility] Urine blood detectionOrdered By: Mayo Mccullough on 07-06-2023 RBC Ql (U) Negative Negative [facility] Urine clarityOrdered By: Christiano Mccullough on 07-06-2023 Clarity (U) Clear Clear [facility] Urine color determinationOrd ered By: Mayo Mccullough on 07-06-2023 Color (U) Yellow Yellow [facility] Urine glucose detectionOrder ed By: Mayo Mccullough on 07-06-2023 Glucose Ql (U) Normal mg/dl Normal [facility] Urine leukocyte esterase det ection by dipstickOrdered By: Mayo Mccullough on 07-06-2023 Leukocyte esterase Test strip Ql (U) 25 /ul Negative [facility] Urine pHOrdered By: Mayo mayer on 07-06-2023 pH (U) 5.0 [pH] 5.0 - 8.0 [facility] Urine sediment bacteria coun t by microscopy (number/high power field)Ordered By: Mayo Mccullough on 07-06-2023 Bacteria LM.HPF (Urine sed) [#/Area] 0 /[HPF] None Seen [facility] Urine specific gravity measu rementOrdered By: Mayo Mccullough on 07-06-2023 Specific gravity (U) [Rel density] 1.010 1.002-1.03 0 [facility] Urine urobilinogen measureme ntOrdered By: Mayo Mccullough on 07-06-2023 Urobilinogen Ql (U) Normal mg/dl Normal [facility] Whole blood hemoglobin A1c/t otal hemoglobin ratio (mass fraction)Ordered By: Stephanie Han on 07-06-2023 HbA1c (Bld) [Mass fraction] 5.7 % 3.8-5.6 [facility] Comment on above: Normal < 5.7 % Predi abetic 5.7 - 6.4 % Diabetic >or= 6.5 % Please note range changes. CNPNon 04-22-2024 CNPN Telephone (INTMWS) ----- MORALESMACY QUILES ([id number]) 1955 F [place] Date Time Provider Department 07/05/23 ELDER REDDY INTMWS During your visit today, we recorded the following information about you: Serena Ramirez RN 07/05/2023 8:24 AM Signed Patient's daughter Ingris [...] Status:Closed by ANA BROWNING on 07/05/23 [facility] CNOVon 06-29-2023 CNOV Office Visit (GASTA5 ) ----- MACY MORALES ([id number]) 1955 F [place] Date Time Provider Department 06/29/23 3:05 PM CECILIA POWERS GASTA5 During your visit today, we recorded the following information about you: Temperature Pulse Blood pressure Weight 97.6 degrees 84/minute 134/54 84.4 kg Height 1.524 m Cecilia Powers MD 06/30/2023 10:07 AM Signed FOLLOW-UP VISIT NAME: Macy Morales CLINIC NO: [id number] HPI: Macy Morales is a 67 year [...] complication, without long-term current use of insulin ([facility]) 04/28/2021 COVID-19 02/05/2020 Obesity, Class II, BMI [...] spider angiom (more content not included)... [facility] CNOVon 05-03-2023 CNOV Office Visit (UCWSTR ) ----- MACY MORALES ([id number]) 1955 F [place] Date Time Provider Department 05/03/23 1:15 PM PEPE MICHEL [facility] During your visit today, we recorded the following information about you: Temperature Pulse Respiration Blood pressure 97.8 degrees 81/minute 16/minute 128/82 Weight 84.3 kg Pepe Michel APRN.[facility] 05/03/2023 1:45 PM Signed Subjective Cough Associated [...] 2V FRONTAL/LAT IMPRESSION: No acute radiographic abnormality. Manager Support: KATELYNN Transcribe Date/Time: May 03 2023 1:32P [...] APRN.DONNY 05/03/19 (more content not included)... [facility] XR CHEST 2V FRONTAL/LATon XR CHEST [...] tissues: Unremarkable. IMPRESSION: No acute radiographic abnormality. Manager Support: [facility] Transcribe Date/Time: May 03 2023 1:32P Dictated by : STEPHANIE OYUNG MD This examination was interpreted and the report reviewed and electronically signed by: STEPHANIE YOUNG MD on May 03 2023 1:33PM EST [id number] [facility] XR Chest PA and Lateralon IMPRESSION: No acute radiographic abnormality. Manager Support: [facility] Transcribe Date/Time: May 03 2023 1:32P Dictated [...] soft tissues: Unremarkable. DIVISION OF RADIOLOGY Provider, [facility] - 05/03/2023 * * *Final Report* * [...] Unremarkable. IMPRESSION IMPRESSION: No acute radiographic abnormality. Manager Support: PSCB Transcribe Date/Time: May 03 2023 1:32P Dictated by : STEPHANIE YOUNG MD This examination was interpreted and the report reviewed and electronically signed by: STEPHANIE YOUNG MD on May 03 2023 1:33PM EST [facility] Radiology Study observation (narrative) [address] [facility] XR Chest PA and LateralOrder ed By: Ccf Provider on 05-03-2023 [facility]2023 [facility] MACY MORALES ([id number]) 1955 [facility] Date Time Provider Department 04/27/23 ELDER REDDY INTCassiusWS During your visit today, [...] Encounter Status:Closed by RERE SAMUEL on 04/27/23 [facility] CNOVon 04-26-2023 CNOV Office Visit (INTMWS ) ----- MACY MORALES ([id number]) 1955 F [place] Date Time Provider Department 04/26/23 5:00 PM ELDER REDDY INTMWS During your visit today, we recorded the following information about you: Temperature Pulse Blood pressure Weight 98.6 degrees 86/minute 144/70 85.3 kg Elder Reddy MD 04/26/2023 5:47 PM Signed This note was created using [employer]. Subjective Macy Morales is a 67 year [...] Order #: (more content not included)... [facility] COVID AND INFLUENZA A/B AND RSV NAAT, ROUTINEon 04-26-2023 SARS-CoV-2 (COVID-19) RNA CHIVO+probe Ql (Unsp spec) COVID 19 RESULT: Not detected The method used is RT-PCR or an equivalent NAAT method. Reference Range (the expected result in uninfected individuals): Not detected INFLUENZA A PCR: Not detected INFLUENZA B PCR: Not detected RSV PCR: Not detected [facility] Comment on above: Performed By: #### C [facility] ####[facility] LABCLIA [id number] [place] [address] [place] Aby 04-22-2023 CNPN Telephone (INTMWS) ----- MORALESMACY QUILES ([id number]) 1955 [place] Date Time Provider Department 04/22/23 ELDER REDDY During your visit today, we recorded the following information about you: Albina Garrison LPN 04/22/2023 9:53 AM Signed Rec'd fax from [facility]. Pt is having 5 extractions. Pcp reviewed form. This was completed and faxed back to [facility]. Allergies As of Date: 04/22/2023 (No Known Allergies) Date Reviewed: 04/05/2023 Reviewed by: Katherine Goldstein OD - Fully Assessed Reason for Visit: Forms [913] Cmt: [facility] form Prescriptions as of 04/22/2023 - [...] Status:Closed by ALBINA GARRISON on 04/22/23 [facility] US ABD RIGHT UPPER QUADRANTo n 04-12-2023 [...] for cirrhosis. Spleen top normal in size. Manager Support: KATELYNN Transcribe Date/Time: Apr 12 2023 10:32A Dictated by : MANUELITO FARR MD This examination was interpreted and the report reviewed and electronically signed by: MANUELITO FARR MD on Apr 12 2023 10:35AM EST [id number] [facility] US ABD SPLEEN -NBon 04-12-19 24 US ABD SPLEEN -NB * * *Final Report* * * DATE OF EXAM: Apr 12 2023 10:32AM WRU 1232 - US ABD SPLEEN -NB / PROCEDURE REASON: multiple diagnoses * * * * Physician Interpretation * * * * Please see accession number [id number] for the report of this US ABD SPLEEN-NB. Manager Support: PSCB Transcribe Date/Time: May 06 2023 10:06A Dictated by : MANUELITO FARR MD This examination was interpreted and the report reviewed and electronically signed by: MANUELITO FARR MD on May 06 2023 10:08AM EST [id number] [facility] ALBUMIN/CREAT RATIO RND URon 03-23-2023 Albumin DL <= 20 mg/L (U) [Mass/Vol] mg/dL [facility] Comment on above: Order Comment: Speci men Type: URINE SPECIMENOrdering Facility: [facility] Address: [address] [place] [address] Performed By: #### U ACR ####[facility] LABCLIA [id number] [address] [place] Albumin/Creatinine (U) [Mass ratio] <13 Normal <30 [facility] Comment on above: Order Comment: Speci men Type: URINE SPECIMENOrdering Facility: [facility] Address: [address] [place] [address] Result Comment: Adul t Male and Female Nephrotic Criteria: <30 mg/g is considered normal to mildly increased 30-300 mg/g is considered moderately increased >300 mg/g is considered severely increased KDIGO. (2013). KDIGO 2012 Clinical Practice Guideline for the Evaluation and Management of Chronic Kidney Disease. Official Journal of the International Society of Nephrology, 3(1), 1-150. Performed By: #### U ACR ####[facility] LABCLIA [id number] [place] [id number] [place] Creatinine (U) [Mass/Vol] 94.3 mg/dL Normal 20.0-300.0 [facility] Comment on above: Order Comment: Speci men Type: URINE SPECIMENOrdering Facility: [facility] Address: [address] [place] [address] Performed By: #### U ACR ####[facility] LABCLIA [id number] [place] [id number] [place] CNOVon 03-23-2023 CNOV Office Visit (INTMWS ) ----- MACY MORALES ([id number]) 1955 F [place] Date Time Provider Department 03/23/23 10:00 AM ANA BROWNING INTMWS During your visit today, we recorded the following information about you: Pulse Respiration Blood pressure Weight 76/minute 14/minute 122/68 83 kg Ana Browning, UNIX ARCHITECT.I&C TECH 03/23/2023 10:14 AM Signed CC: Patient presents [...] due on (more content not included)... [facility] HbA1c (Bld)on 03-23-2023 Average glucose Estimated from glycated hemoglobin (Bld) [Mass/Vol] 123 mg/dL [facility] Comment on above: Order Comment: Speci men Type: BLOOD SPECIMENOrdering Facility: [facility] Address: [address] [place] [address] Result Comment: eAG: (Estimated average glucose) is a calculated value from HgbA1c and is dental detail representative of the average blood glucose level in the last 2-3 month period. Performed By: #### 5 5454-3 ####[facility] LABCLIA [id number] [facility] [id number] [address] [place] HbA1c (Bld) [Mass fraction] 5.9 % High 4.3-5.6 [facility] Comment on above: Order Comment: Morenita men Type: BLOOD SPECIMENOrdering Facility: [facility] Address: [address] [place] [address] Result Comment: Anushka ican Diabetes Association guidelines indicate that patients with HgbA1c in the range 5.7-6.4% are at increased risk for development of diabetes, and intervention by lifestyle modification may be beneficial. HgbA1c greater or equal to 6.5% is considered diagnostic of diabetes. Performed By: #### 5 5454-3 ####[facility] LABCLIA [id number] [address] [place] Lipid 1996 panelon 4 Cholesterol [Mass/Vol] 225 mg/dL High <200 [facility] Comment on above: Order Comment: Morenita flower Type: BLOOD SPECIMENOrdering Facility: [facility] Address: [address] [place] [address] Result Comment: <200 mg/dL, Desirable 200-239 mg/dL, Borderline high >239 mg/dL, High Performed By: #### 2 4331-1 ####[facility] LABIA [id number] [address] [place] Cholesterol in HDL [Mass/Vol] 87 mg/dL Normal >39 [facility] Comment on above: Order Comment: Morenita flower Type: BLOOD SPECIMENOrdering Facility: [facility] Address: [address] [place] [address] Result Comment: 40-5 9 mg/dL, Acceptable >59 mg/dL, High: Negative risk factor for coronary heart disease <40 mg/dL, Low: Positive risk factor for coronary heart disease Performed By: #### 2 4331-1 ####[facility] LABCLIA [id number] [address] [place] Cholesterol in LDL [Mass/Vol] 119 mg/dL High <100 [facility] Comment on above: Order Comment: Mirii men Type: BLOOD SPECIMENOrdering Facility: [facility] Address: [address] [place] [address] Result Comment: <100 mg/dL, Optimal 100-129 mg/dL, Near optimal/above optimal 130-159 mg/dL, Borderline high 160-189 mg/dL, High >189 mg/dL, Very high Secondary prevention optimal LDL Cholesterol levels are recommended to be < 70 mg/dL Performed By: #### 2 4331-1 ####[facility] LABCLIA [id number] [place] [address] [place] Cholesterol in LDL/Cholesterol in HDL [Mass ratio] 1.37 {ratio} Normal <2.54 [facility] Comment on above: Order Comment: Speci men Type: BLOOD SPECIMENOrdering Facility: [facility] Address: [address] [place] [address] Result Comment: Refe rence: 1. National Cholesterol Education Program ATP III Guideline At-A-Glance Quick Desk Reference: National Heart, Lung, and Blood [employer]. National Institutes of Health. 2001: NIH Publication No. 01-3305. 2. An International Atherosclerosis Society position paper: global recommendations for the management of dyslipidemia: executive summary, Atherosclerosis. 2014: 232(2):410-413. Performed By: #### 2 4331-1 ####[facility] LABCLIA [id number] [place] [address] [place] Cholesterol in VLDL [Mass/Vol] 19 mg/dL Normal <30 [facility] Comment on above: Order Comment: Speci men Type: BLOOD SPECIMENOrdering Facility: [facility] Address: [address] [place] [address] Performed By: #### 2 4331-1 ####[facility] LABCLIA [id number] [place] [address] [place] Cholesterol non HDL [Mass/Vol] 138 mg/dL High <130 [facility] Comment on above: Order Comment: Speci men Type: BLOOD SPECIMENOrdering Facility: [facility] Address: [address] [place] [address] Result Comment: <130 mg/dL, Optimal 130-159 mg/dL, Near optimal/above optimal 160-189 mg/dL, Borderline high 190-219 mg/dL, High >219 mg/dL, Very high Secondary prevention optimal non HDL Cholesterol levels are recommended to be <100 mg/dL Performed By: #### 2 4331-1 ####[facility] LABCLIA [id number] [address] [place] Cholesterol.total/Cholest jason in HDL [Mass ratio] 2.59 {ratio} Normal <5.10 [facility] Comment on above: Order Comment: Speci men Type: BLOOD SPECIMENOrdering Facility: [facility] Address: [address] [place] [address] Performed By: #### 2 4331-1 ####[facility] LABCLIA [id number] [address] OF [facility] FASTING TIME 14 hrs [facility] Comment on above: Order Comment: Speci men Type: BLOOD SPECIMENOrdering Facility: [facility] Address: [address] [place] [address] Performed By: #### 2 4331-1 ####[facility] LABCLIA [id number] [address] [place] Triglyceride [Mass/Vol] 93 mg/dL Normal <150 [facility] Comment on above: Order Comment: Speci men Type: BLOOD SPECIMENOrdering Facility: [facility] Address: [address] [place] [address] Result Comment: <150 mg/dL, Normal 150-199 mg/dL, Borderline high 200-499 mg/dL, High >499 mg/dL, Very high Performed By: #### 2 4331-1 ####[facility] LABCLIA [id number] [place] [address] [place] Aby 03-13-2023 LEIGHA Telephone (UCWSTR) ----- MACY MORALES ([id number]) 1955 [place] RON Date Time Provider Department 03/13/23 ANA BROWNING [facility] During your visit today, we recorded the [...] Encounter Status:Closed by MARIAMA SKELTON on 04/22/23 [facility] 03-10-2023 CNPN Telephone (WALKBR) ----- MACY MORALES ([id number]) 1955 [facility] Date Time Provider Department 03/10/23 KELLY SOMMERS WALKBR During your visit today, we recorded the following information about you: Kelly Sommers APRN.[facility] 03/10/2023 6:48 AM Signed Xrays were completed [...] Status:Closed by DANE RODAS on 03/11/23 [facility] XR Chest PA and Lateralon IMPRESSION: Unremarkable exam with no acute radiographic abnormality. Manager Support: PSCB Transcribe Date/Time: Mar 09 2023 8:46P Dictated by : SHALINI BOUCHER MD This examination was interpreted and the report reviewed and electronically signed by: SHALINI BOUCHER MD on Mar 09 2023 8:46PM [facility] DIVISION OF RADIOLOGY * * *Final [...] soft tissues: Unremarkable. DIVISION OF RADIOLOGY Provider, [facility] - 03/09/2023 * * *Final Report* * [...] Unremarkable exam with no acute radiographic abnormality. Manager Support: KATELYNN Transcribe Date/Time: Mar 09 2023 8:46P Dictated by : SHALINI BOUCHER MD This examination was interpreted and the report reviewed and electronically signed by: SHALINI BOUCHER MD on Mar 09 2023 8:46PM [facility] XR Chest PA and LateralOrder ed By: Cc Provider on 03-09-2023 [facility] Aby 03-07-2023 CNPN Telephone (UCWSTR) ----- MACY MORALES ([id number]) 1955 F [place] Date Time Provider Department 03/07/23 [facility] During your visit today, we recorded the [...] Encounter Status:Closed by GÉNESIS SALAZAR on 03/09/23 [facility] CNOVon 03-06-2023 CNOV Office Visit (UCWSTR ) ----- MACY MORALES ([id number]) 1955 [facility] Date Time Provider Department 03/06/23 11:15 AM IGOR KIM [facility] During your visit today, we recorded the [...] AND RSV NAAT, ROUTINE [SQCVFLRS] Order #: [id number]. #:[id number] STREP A MOLECULAR (POC) [[id number]] Order #: [id number]. #:[id number] 77-[id number] XR CHEST 2V FRONTAL/LAT [[id number]] Order #: [id number] FUTURE Prescriptions as of 03/06/2023 - lisinopril [...] For cholesterol. (more content not included)... [facility] COVID AND INFLUENZA A/B AND RSV NAAT, ROUTINEon 03-06-2023 SARS-CoV-2 (COVID-19) RNA CHIVO+probe Ql (Unsp spec) COVID 19 RESULT: Not detected The method used is RT-PCR or an equivalent NAAT method. Reference Range (the expected result in uninfected individuals): Not detected INFLUENZA A PCR: Not detected INFLUENZA B PCR: Not detected RSV PCR: Not detected [facility] Comment on above: Performed By: #### C VFLRS ####[facility] LABCLIA [id number] [address] OF [facility] XR CHEST 2V FRONTAL/LATon XR CHEST 2V [...] Unremarkable exam with no acute radiographic abnormality. Manager Support: PSCB Transcribe Date/Time: Mar 09 2023 8:46P Dictated by : SHALINI BOUCHER MD This examination was interpreted and the report reviewed and electronically signed by: SHALINI BOUCHER MD on Mar 09 2023 8:46PM EST [id number] [facility] XR Chest PA and Lateralon Radiology Study observation (narrative) [facility] 02-23-2023 [facility] Office Visit (INTMWS ) ----- MACY MORALES ([id number]) 1955 F [place] Date Time Provider Department 02/23/23 9:40 AM ANA BROWNING INTMWS During your visit today, we recorded the following information about you: Pulse Respiration Blood pressure Weight 76/minute 16/minute 169/90 84.8 kg Ana Browning, UNIX ARCHITECT.I&C TECH 02/23/2023 11:31 AM Signed CC: Patient presents with: Eye Muscle Spasms Right Eye HPI Macy Morales is a 67 year old female who presents today for above. 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 All other Wakeeney Palsy symptoms have resolved except for this. Denies photophobia, eye pain, discharge, redness, itching and visual disturbance. Last eye exam was in September, no abnormal findings other than Wakeeney Palsy. Review of Systems HENT: Negative for drooling, facial swelling, trouble swallowing and voice change. Neurological: Negative for tremors, facial asymmetry, speech difficulty, weakness, light-headedness, numbness and headaches. 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 No alarm symptoms or exam findings. Reassurance given. Follow-up with pension agent if symptoms worsen or persist Prescription instructions reviewed with patient as applicable. Potential red flag symptoms discussed with the patient. Reviewed appropriate action plan to take if red flag symptoms occur. Patient agreeable to treatment plan. Ana Browning APRN.Ana Villalobos APRN.DONNY 02/23/2023 10:22 AM Signed Eye twitching is likely due to Wakeeney Palsy. If symptoms are getting worse recommend follow-up with your eye doctor Allergies As of Date: 02/23/2023 (No Known Allergies) Date Reviewed: 02/23/2023 Reviewed by: Ana Browning APRN.I&C TECH - Fully Assessed Reason for Visit: Eye [...] E11.9 In (more content not included)... [facility] CNOVon 11-30-2022 CNOV Office Visit (LAUREL ) ----- MACY MORALES ([id number]) 1955 [facility] Date Time Provider Department 11/30/22 11:00 AM ARIE GAYTAN During your visit today, we recorded the following information about you: Arie Gaytan, AUD 11/30/2022 1:00 PM Signed [employer] AUDIOLOGIC EVALUATION REPORT Name: Macy Celeste [facility]#: [id number] Date of Service: 11/30/2022 Date of : 1955 Age: [age] year old Referred by: Brittani Santana MD Referred for: Evaluation of the cause of disorder of hearing, tinnitus, or balance. Referral documented: In an order in Epic Patient's major complaints: Hearing loss: Possible decline [...] evaluation of middle ear function. CPT code: 90102 RIGHT EAR: Normal ME function. LEFT EAR: Normal ME function. ACOUSTIC REFLEXES Description of procedure: This test is an objective measure of auditory and facial nerve pathways. CPT code: 85025, 74157 RIGHT EAR PROBE EAR: (ipsi right stimulus [...] bone conduction and speech recognition testing. CPT code:85240 RIGHT EAR: Hearing Sensitivity: Hearing essentially within [...] to lower than expected speech understanding, a [place] Citizen word list was used and speech perception [...] to lower than expected speech understanding, a [place] Citizen word list was used and speech perception was noted to be Good (88%) at an above (greater than or equal to 60 dBHL) intensity level for average conversational speech. However, this score remains worse than expected given hearing sensitivity (25 w (more content not included)... [facility] HbA1c (Bld)on 11-19-2022 Average glucose Estimated from glycated hemoglobin (Bld) [Mass/Vol] 123 mg/dL [facility] Comment on above: Order Comment: Speci men Type: BLOOD SPECIMENOrdering Facility: [facility] Address: [address] [place] [phone] Result Comment: eAG: (Estimated average glucose) is a calculated value from HgbA1c and is dental detail representative of the average blood glucose level in the last 2-3 month period. Performed By: #### 5 5454-3 ####[facility] LABCLIA [id number] [address] STATES OF [facility] HbA1c (Bld) [Mass fraction] 5.9 % High 4.3-5.6 [facility] Comment on above: Order Comment: Morenita flower Type: BLOOD SPECIMENOrdering Facility: [facility] Address: [address] [place] [address] Result Comment: Amer ican Diabetes Association guidelines indicate that patients with HgbA1c in the range 5.7-6.4% are at increased risk for development of diabetes, and intervention by lifestyle modification may be beneficial. HgbA1c greater or equal to 6.5% is considered diagnostic of diabetes. Performed By: #### 5 5454-3 ####[facility] LABCLIA [id number] [address] OF [facility] Lipid 1996 panelon 3 Cholesterol [Mass/Vol] 215 mg/dL High <200 [facility] Comment on above: Order Comment: Morenita flower Type: BLOOD SPECIMENOrdering Facility: [facility] Address: [address] [place] [address] Result Comment: <200 mg/dL, Desirable 200-239 mg/dL, Borderline high >239 mg/dL, High Performed By: #### 2 4331-1 ####[facility] LABCLIA [id number] [address] Cholesterol in HDL [Mass/Vol] 88 mg/dL Normal >39 [facility] Comment on above: Order Comment: Morenita ching Type: BLOOD SPECIMENOrdering Facility: [facility] Address: [address] [place] [id number] Result Comment: 40-5 9 mg/dL, Acceptable >59 mg/dL, High: Negative risk factor for coronary heart disease <40 mg/dL, Low: Positive risk factor for coronary heart disease Performed By: #### 2 4331-1 ####[facility] LABCLIA [id number] [address] OF [facility] Cholesterol in LDL [Mass/Vol] 109 mg/dL High <100 [facility] Comment on above: Order Comment: Speci men Type: BLOOD SPECIMENOrdering Facility: [facility] Address: [address] [place] [address] Result Comment: <100 mg/dL, Optimal 100-129 mg/dL, Near optimal/above optimal 130-159 mg/dL, Borderline high 160-189 mg/dL, High >189 mg/dL, Very high Secondary prevention optimal LDL Cholesterol levels are recommended to be < 70 mg/dL Performed By: #### 2 4331-1 ####[facility] LABCLIA [id number] [address] [place] Cholesterol in LDL/Cholesterol in HDL [Mass ratio] 1.24 {ratio} Normal <2.54 [facility] Comment on above: Order Comment: Morenita men Type: BLOOD SPECIMENOrdering Facility: [facility] Address: [address] [place] [address] Result Comment: Georgiana moser: 1. National Cholesterol Education Program ATP III Guideline At-A-Glance Quick Desk Reference: National Heart, Lung, and Blood [employer]. National Institutes of Health. 2001: NIH Publication No. 01-3305. 2. An International Atherosclerosis Society position paper: global recommendations for the management of dyslipidemia: executive summary, Atherosclerosis. 2014: 232(2):410-413. Performed By: #### 2 4331-1 ####[facility] LABCLIA [id number] [place] [address] [place] Cholesterol in VLDL [Mass/Vol] 18 mg/dL Normal <30 [facility] Comment on above: Order Comment: Mirii men Type: BLOOD SPECIMENOrdering Facility: [facility] Address: [address] [place] [address] Performed By: #### 2 4331-1 ####[facility] LABCLIA [id number] [place] [address] [place] Cholesterol non HDL [Mass/Vol] 127 mg/dL Normal <130 [facility] Comment on above: Order Comment: Speci men Type: BLOOD SPECIMENOrdering Facility: [facility] Address: [address] [place] [address] Result Comment: <130 mg/dL, Optimal 130-159 mg/dL, Near optimal/above optimal 160-189 mg/dL, Borderline high 190-219 mg/dL, High >219 mg/dL, Very high Secondary prevention optimal non HDL Cholesterol levels are recommended to be <100 mg/dL Performed By: #### 2 4331-1 ####[facility] LABCLIA [id number] [address] OF [facility] Cholesterol.total/Cholest jason in HDL [Mass ratio] 2.44 {ratio} Normal <5.10 [facility] Comment on above: Order Comment: Speci men Type: BLOOD SPECIMENOrdering Facility: [facility] Address: [address] [place] [address] Performed By: #### 2 4331-1 ####[facility] LABCLIA [id number] [address] FASTING TIME 14 hrs Normal [facility] Comment on above: Order Comment: Speci men Type: BLOOD SPECIMENOrdering Facility: [facility] Address: [address] [place] [address] Performed By: #### 2 4331-1 ####[facility] LABCLIA [id number] [address] Triglyceride [Mass/Vol] 92 mg/dL Normal <150 [facility] Comment on above: Order Comment: Speci men Type: BLOOD SPECIMENOrdering Facility: [facility] Address: [address] [place] [address] Result Comment: <150 mg/dL, Normal 150-199 mg/dL, Borderline high 200-499 mg/dL, High >499 mg/dL, Very high Performed By: #### 2 4331-1 ####[facility] LABCLIA [id number] [address] OF [place] CNPNon 11-17-2022 CNPN Telephone (INTMWS) ----- MORALESMACY QUILES ([id number]) 1955 [facility] Date Time Provider Department 11/17/22 ELDER REDDY INTCassiusWS During your visit today, [...] Date Reviewed: 10/20/2022 Reviewed by: Ana Mccarty APRN.CNP - Fully Assessed Reason for Visit: Results [95] Primary Visit Diagnosis:Osteoporosis, unspecified osteoporosis type, unspecified pathological fracture presence [M81.0] Order(s):VITAMIN D 25 HYDROXY [SQVITD] Order #: [id number] FUTURE alendronate (FOSAMAX) 70 mg tabletTake 1 [...] Encounter Status:Closed by JOANA GILLETTE LPN on 9/5/[address] [facility] DXA - AXIAL SKELETONon BD DXA - AXIAL SKELETON * * *Final Repor t* * * DATE OF EXAM: Nov 09 2022 3:01PM GUTIERREZ Montes De Oca - BD DXA - AXIAL SKELETON / PROCEDURE REASON: multiple diagnoses * * * * Physician Interpretation * * * * EXAM: BD DXA - AXIAL SKELETON HISTORY: Screening for osteoporosis Asymptomatic menopause Risk factors: No known risk factors. TECHNIQUE: Bone densitometry of lumbar spine and both hips performed on [email or web address] Discovery C bone densitometer. COMPARISON: No relevant [...] age, and a cause should be sought Manager Support: KATELYNN Transcribe Date/Time: Nov 13 2022 10:51A Dictated by : Dallas STRAUSS MD This examination was interpreted and the report reviewed and electronically signed by: Dallas STRAUSS MD on Nov 13 2022 10:53AM EST [id number] [facility] DXA-AXIAL SKELETONon 023 [facility] CNOVon 10-20-2022 CNOV Office Visit (INTMWS ) ----- MACY MORALES ([id number]) 1955 F [place] Date Time Provider Department 10/20/22 10:20 AM ANA MCCARTY INTMWS During your visit today, we recorded the following information about you: Pulse Respiration Blood pressure Weight 60/minute 16/minute 120/68 83.9 kg Ana Mccarty APRN.I&C TECH 10/20/2022 10:43 AM Signed CC Patient presents [...] Date Reviewed: 10/20/2022 Reviewed by: Ana Mccarty APRN.I&C TECH - Fully Assessed Reason for Visit: F/U 3 Month [443] Primary Visit Diagnosis:Primary hypertension [I10] Other Visit Diagnoses:Thrombocytopeni a (HCC) [D69.6] Abnormal liver enzymes [R74.8] Pure hypercholesterolemia [E78.00] Controlled type 2 diabetes marissa (more content not included)... [facility] HEPATITIS A ANTIBODY, IGGon 10-07-2022 HEPATITIS A ANTIBODY IGG Positive Abnormal Negative [facility] Comment on above: Order Comment: Morenita flower Type: BLOOD SPECIMENOrdering Facility: [facility] Address: [address] [place] [address] Result Comment: The result suggests recent or past exposure to hepatitis A virus or hepatitis A vaccination. Clinical correlation required. Performed By: #### A HAVG ####[facility] LABCLIA [id number] [place] [address] [place] Mitochondria Ab IF Ql (S)on 10-07-2022 Mitochondria M2 Ab IA Qn (S) 4.2 Units Normal <=20.0 [facility] Comment on above: Order Comment: Morenita flower Type: BLOOD SPECIMENOrdering Facility: [facility] Address: [address] [place] [address] Performed By: #### 1 4252-1, 52248-9 ####[facility] LABIA [id number] [place] [address] [place] Mitochondria M2 Ab Ql (S) Negative Normal Negative [facility] Comment on above: Order Comment: Speci men Type: BLOOD SPECIMENOrdering Facility: [facility] Address: [address] [place] [address] Result Comment: Anti -mitochondrial antibody test is used as an aid in diagnosis of primary biliary cholangitis. Clinical correlation is required. Performed By: #### 1 4252-1, 87111-3 ####[facility] LABIA [id number] [place] [address] [place] Nuclear Ab IA Ql (S)on 10-07 JACINTO SCR QUAL Negative Normal Negative [facility] Comment on above: Order Comment: Speci [facility] Type: BLOOD SPECIMENOrdering Facility: [facility] Address: [address] [place] [address] Result Comment: The qualitative antinuclear antibody screen test performed using the following antigens: dsDNA, Chromatin, Ribosomal P, SS-A 60, SS-A 52, SS-B, Sm, SmRNP, NEW MEDIA STRATEGIST A, NEW MEDIA STRATEGIST 68, Scl-70, Maddy-1, and Centromere B. Methodology: Multiplex flow immunoassay. Performed By: #### 4 7383-5 ####[facility] [id number] [place] [address] [place] Smooth muscle Ab Ql (S)on ACTIN SMOOTH MUSCLE IGG QUALITATIVE Negative Normal Negative [facility] Comment on above: Order Comment: Speci men Type: BLOOD SPECIMENOrdering Facility: [facility] Address: [address] [place] [address] Performed By: #### 1 4252-1, 14762-6 ####[facility] LABIA [id number] [place] [address] [place] ACTIN SMOOTH MUSCLE IGG QUANTITATIVE 6 Units Normal <20 [facility] Comment on above: Order Comment: Speci men Type: BLOOD SPECIMENOrdering Facility: [facility] Address: [address] [place] [address] Performed By: #### 1 4252-1, 50844-6 ####[facility] LABCLIA [id number] [id number] [id number] [place] CNOVon 10-06-2022 CNOV Office Visit (GASTA5 ) ----- MACY MORALES ([id number]) 1955 F [place] Date Time Provider Department 10/06/22 2:15 PM [...] liver enzymes and thrombocytopenia. Patient follows with hims coder Dr. Lopes for thrombocytopenia. In 2021, platelet [...] gas Otherw (more content not included)... [facility] CNOVon 09-30-2022 CNOV Office Visit (OTOLMM ) ----- MACY MORALES ([id number]) 1955 F [place] Date Time Provider Department 09/30/22 1:00 PM BRITTANI SANTANA OTCARLOS During your visit today, we recorded the [...] complication, without long-term current use of insulin ([facility]) 04/28/2021 COVID-19 02/05/2020 Obesity, Class II, BMI [...] Brittani Santana MD Referring Provider: MEMO TREVIÑO [[id number]] Allergies As of Date: 09/30/2022 (No Known Allergies) Date Reviewed: 09/30/2022 Reviewed by: Awilda Chi - Fully Assessed Reason for Visit: Consult [173] Cmt: Right otalgia/ tinnitus, sx since 06/01/22 Primary Visit Diagnosis:Right-sided tinnitus [H93.11] Other Visit Diagnosis (more content not included)... [facility] CBC W Auto Differential pane l (Bld)on 09-21-2022 Basophils (Bld) [#/Vol] 10*3/uL Normal <0.11 [facility] Comment on above: Order Comment: Speci men Type: BLOOD SPECIMENOrdering Facility: [facility] Address: [address] [place] [address] Performed By: #### 5 7021-8 ####[facility]THWNCLIA [id number] [place] [address] [place] Basophils/100 WBC (Bld) 0.5 % Normal [facility] Comment on above: Order Comment: Speci men Type: BLOOD SPECIMENOrdering Facility: [facility] Address: [address] [place] [address] Performed By: #### 5 7021-8 ####[facility]ITALLIA [id number] [place] [address] [place] Differential cell count method Nom (Bld) Auto Normal [facility] Comment on above: Order Comment: Speci men Type: BLOOD SPECIMENOrdering Facility: [facility] Address: [address] [place] [address] Performed By: #### 5 7021-8 ####[facility] [id number] [place] [address] [place] Eosinophils (Bld) [#/Vol] 0.11 10*3/uL Normal <0.46 [facility] Comment on above: Order Comment: Speci men Type: BLOOD SPECIMENOrdering Facility: [facility] Address: [address] [place] [address] Performed By: #### 5 7021-8 ####[facility]CL[facility] [id number] [place] [address] [place] Eosinophils/100 WBC (Bld) 2.6 % Normal [facility] Comment on above: Order Comment: Speci men Type: BLOOD SPECIMENOrdering Facility: [facility] Address: [address] [place] [address] Performed By: #### 5 7021-8 ####[facility] [id number] [place] [address] [place] Erythrocyte distribution width (RBC) [Ratio] 14.6 % Normal 11.5-15.0 [facility] Comment on above: Order Comment: Speci men Type: BLOOD SPECIMENOrdering Facility: [facility] Address: [address] [place] [address] Performed By: #### 5 7021-8 ####[facility]ITALDELORIS [id number] [place] [address] [place] Hematocrit (Bld) [Volume fraction] 42.3 % Normal 36.0-46.0 [facility] Comment on above: Order Comment: Speci men Type: BLOOD SPECIMENOrdering Facility: [facility] Address: [address] [place] [address] Performed By: #### 5 7021-8 ####[facility] [id number] [place] [address] [place] Hemoglobin (Bld) [Mass/Vol] 13.9 g/dL Normal 11.5-15.5 [facility] Comment on above: Order Comment: Speci men Type: BLOOD SPECIMENOrdering Facility: [facility] Address: [address] [place] [address] Performed By: #### 5 7021-8 ####[facility] [id number] [place] [address] [place] Immature granulocytes (Bld) [#/Vol] 10*3/uL Normal <0.10 [facility] Comment on above: Order Comment: Speci men Type: BLOOD SPECIMENOrdering Facility: [facility] Address: [address] [place] [address] Performed By: #### 5 7021-8 ####[facility]PITALNADINE [id number] [place] [address] [place] Immature granulocytes/100 WBC (Bld) 0.2 % Normal [facility] Comment on above: Order Comment: Speci men Type: BLOOD SPECIMENOrdering Facility: [facility] Address: [address] [place] [address] Performed By: #### 5 7021-8 ####[facility]ITALNCM[facility] [id number] [place] [address] [place] Lymphocytes (Bld) [#/Vol] 0.99 10*3/uL Low 1.00-4.0 0 [facility] Comment on above: Order Comment: Speci men Type: BLOOD SPECIMENOrdering Facility: [facility] Address: [address] [place] [address] Performed By: #### 5 7021-8 ####[facility] [id number] [place] [address] [place] Lymphocytes/100 WBC (Bld) 23.7 % Normal [facility] Comment on above: Order Comment: Speci men Type: BLOOD SPECIMENOrdering Facility: [facility] Address: [address] [place] [address] Performed By: #### 5 7021-8 ####[facility] [id number] [place] [address] [place] MCH (RBC) [Entitic mass] 30.1 pg Normal 26.0-34.0 [facility] Comment on above: Order Comment: Speci men Type: BLOOD SPECIMENOrdering Facility: [facility] Address: [address] [place] [address] Performed By: #### 5 7021-8 ####[facility] [id number] [address] [place] MCHC (RBC) [Mass/Vol] 32.9 g/dL Normal 30.5-36.0 [facility] Comment on above: Order Comment: Speci men Type: BLOOD SPECIMENOrdering Facility: [facility] Address: [address] [place] [address] Performed By: #### 5 7021-8 ####[facility] BREEZYCUDDEBACKVILLEDELORIS [id number] [place] [address] [place] MCV (RBC) [Entitic vol] 91.6 fL Normal 80.0-100.0 [facility] Comment on above: Order Comment: Speci men Type: BLOOD SPECIMENOrdering Facility: [facility] Address: [address] [place] [address] Performed By: #### 5 7021-8 ####[facility]OSPITALNCIsrael [id number] [place] [address] [place] Monocytes (Bld) [#/Vol] 0.44 10*3/uL Normal <0.87 [facility] Comment on above: Order Comment: Speci men Type: BLOOD SPECIMENOrdering Facility: [facility] Address: [address] [place] [address] Performed By: #### 5 7021-8 ####[facility]OSPITALNCA [id number] [place] [address] [place] Monocytes/100 WBC (Bld) 10.6 % Normal [facility] Comment on above: Order Comment: Speci men Type: BLOOD SPECIMENOrdering Facility: [facility] Address: [address] [place], [place] [address] Performed By: #### 5 7021-8 ####[facility]ITALNCLIA [id number] [place] [address] [place] Neutrophils (Bld) [#/Vol] 2.60 10*3/uL Normal 1.45-7.5 0 [facility] Comment on above: Order Comment: Speci men Type: BLOOD SPECIMENOrdering Facility: [facility] Address: [address] [place], [place] [address] Performed By: #### 5 7021-8 ####[facility] NORTHWTNLIA [id number] [place] [address] [place] FORREST Neutrophils/100 WBC (Bld) 62.4 % Normal [facility] Comment on above: Order Comment: Speci men Type: BLOOD SPECIMENOrdering Facility: [facility] Address: [address] [place] [address] Performed By: #### 5 7021-8 ####[facility] [id number] [place] [address] [place] Nucleated RBC (Bld) [#/Vol] 10*3/uL Normal <0.01 [facility] Comment on above: Order Comment: Speci men Type: BLOOD SPECIMENOrdering Facility: [facility] Address: [address] [place] [address] Performed By: #### 5 7021-8 ####[facility] [id number] [place] [address] [place] Nucleated RBC/100 WBC (Bld) [Ratio] 0.0 /100 WBC Normal [facility] Comment on above: Order Comment: Speci men Type: BLOOD SPECIMENOrdering Facility: [facility] Address: [address] [place] [address] Performed By: #### 5 7021-8 ####[facility] [id number] [place] [address] [place] Platelet mean volume (Bld) [Entitic vol] 12.0 fL Normal 9.0-12.7 [facility] Comment on above: Order Comment: Speci men Type: BLOOD SPECIMENOrdering Facility: [facility] Address: [address] [place] [address] Performed By: #### 5 7021-8 ####[facility] [id number] [place] [address] [place] Platelets (Bld) [#/Vol] 72 10*3/uL Low 150-400 [facility] Comment on above: Order Comment: Speci men Type: BLOOD SPECIMENOrdering Facility: [facility] Address: [address] [place] [address] Result Comment: No c lot detected. Performed By: #### 5 7021-8 ####[facility] [id number] [place] [address] [place] RBC (Bld) [#/Vol] 4.62 10*6/uL Normal 3.90-5.20 [facility] Comment on above: Order Comment: Speci men Type: BLOOD SPECIMENOrdering Facility: [facility] Address: [address] [place] [address] Performed By: #### 5 7021-8 ####[facility] [id number] [place] [address] [place] WBC (Bld) [#/Vol] 4.17 10*3/uL Normal 3.70-11.00 [facility] Comment on above: Order Comment: Speci men Type: BLOOD SPECIMENOrdering Facility: [facility] Address: [address] [place] [address] Performed By: #### 5 7021-8 ####[facility] [id number] [place] [address] [place] DNA EXTRACTION BONE MARROW ( BUFFY COAT)on 09-21-2022 DNA EXTRACTION BONE MARROW (BUFFY COAT) [facility] Comment on above: Order Comment: Speci men Type: BONE MARROW SPECIMEN [facility] Address: [address] [place] [address] Result Comment: This specimen was received and successfully processed for future DNA purification should molecular testing be needed. Specimens will be available for 3 years from date of collection. To order testing on this specimen for [facility] patients, please place an [facility] order for DNA and RNA Clinical Testing (SQNUCADD). To order testing for patients outside of the [facility] system, please request DNA and RNA for Clinical Testing, order code [id number]. If additional paperwork is required for testing, please send completed forms via secure email to . Performed By: #### N UCBUF #### [facility] CLIA [id number] [address] [place] [address] [place] No Panel Informationon 09-21 [facility] US ABD RIGHT UPPER QUADRANTo n 09-21-2022 [...] quadrant. Normal sonographic appearance of the spleen Manager Support: KATELYNN Transcribe Date/Time: Sep 23 2022 10:51A Dictated by : LEONID TEJADA MD This examination was interpreted and the report reviewed and electronically signed by: LEONID TEJADA MD on Sep 23 2022 10:54AM EST [id number] Normal [facility] US ABD SPLEEN -NBon 09-22-19 23 US ABD SPLEEN -NB * * *Final [...] quadrant. Normal sonographic appearance of the spleen Manager Support: KATELYNN Transcribe Date/Time: Sep 23 2022 10:51A Dictated by : LEONID TEJADA MD This examination was interpreted and the report reviewed and electronically signed by: LEONID TEJADA MD on Sep 23 2022 10:54AM EST [id number] Normal [facility] BONE MARROW ANALYSISon 08-24 CASE REPORT Normal [facility] Comment on above: Order Comment: Speci men Type: BONE MARROW SPECIMEN [facility] Address: [address] [place] [phone] Result Comment: Bone Marrow Pathology Report Case: [id number] Authorizing Provider: Kavon Lopes DO Collected: 08/24/2022 09:35 AM Ordering Location: [facility] Received: 08/24/2022 10:03 AM RADIOLOGY Pathologist: Aaliyah Truong MD Specimens: A) - BONE MARROW ASPIRATE RIGHT POSTERIOR ILIAC CREST B) - BONE MARROW BIOPSY RIGHT POSTERIOR ILIAC CREST C) - BONE MARROW CLOT RIGHT POSTERIOR ILIAC CREST D) - Peripheral blood smear Performed By: #### B MRT #### [facility] CLIA [id number] [facility] [address] Result Comment: Flow Cytometry Case: [id number] Authorizing Provider: Kavon Lopes DO Collected: 08/24/2022 09:35 AM Ordering Location: [facility] Received: 08/24/2022 02:52 PM RADIOLOGY Pathologist: Aaliyah Truong MD Specimen: Bone Marrow Performed By: #### B MHOLDRFCAITLIN, BMHOLD #### [facility] CLIA [id number] [address] [place] [address] DIAGNOSIS COMMENT Normal [facility] Comment on above: Order Comment: Speci men Type: BONE MARROW SPECIMEN [facility] Address: [address] [place] [address] Result Comment: The patient is being evaluated for thrombocytopenia. Flow cytometric analysis was performed on the bone marrow aspirate and showed no evidence of a lymphoproliferative disorder or increased DO91-rctohhev blasts. Correlation with results of pending cytogenetic analysis is recommended. Performed By: #### B MRT #### [facility] CLIA [id number] [address] [place] [address] Result Comment: This assay is not designed to detect minimal residual disease, plasma cell neoplasms, or myeloid antigen maturational patterns. This test was developed and its performance characteristics determined by [facility]'s [facility] [facility]). It has not been cleared or approved by the FDA. -[facility] is regulated under CLIA as qualified to perform high-complexity testing. This test is used for clinical purposes. It should not be regarded as investigational or for research. Performed By: #### B MHOLDNGOZI, BMHOLD #### [facility] CLIA [id number] [address] FINAL DIAGNOSIS Normal [facility] Comment on above: Order Comment: Speci men Type: BONE MARROW SPECIMEN [facility] Address: [address] [place] [address] Result Comment: A-C. Bone marrow, aspirate smears, core biopsy, and clot section: - Mildly hypocellular marrow (20-25%) with trilineage hematopoiesis. - Decreased stainable iron. - See comment. D. Peripheral blood smear: - Thrombocytopenia. 08/25/22 Performed By: #### B MRT #### [facility] CLIA [id number] [address] [place] [address] OF FORREST FINAL PERFORMING LAB Normal [facility] Comment on above: Order Comment: Speci men Type: BONE MARROW SPECIMEN [facility] Address: [address] [place], [place] [address] Result Comment: Diag nostic interpretation performed at [facility], [address] [address] CLIA# [id number] Ring Attacher: Neftaly López M.D. Performed By: #### B MRT #### [facility] CLIA [id number] [address] [place] [address] [place] Performed By: #### B MHOLDRFLX, BMHOLD #### [facility] CLIA [id number] [address] [place] [address] [place] GROSS DESCRIPTION Normal [facility] Comment on above: Order Comment: Speci men Type: BONE MARROW SPECIMEN [facility] Address: [address] [place] [address] Result Comment: A. B ONE MARROW ASPIRATE [...] for light microscopy. Gross examination performed at [facility], [facility] [place] [address] JT 08/24/2022 7:24 PM Performed By: #### B MRT #### [facility] CLIA [id number] [address] [place] [address] [id number] [place] [address] MICROSCOPIC DESCRIPTION Normal [facility] Comment on above: Order Comment: Speci men Type: BONE MARROW SPECIMEN [facility] Address: [address] [place], [place] [address] Result Comment: JAMILAH PHERAL BLOOD: CBC (08/24/2022 [...] (?). Performed By: #### B MRT #### [facility] CLIA [id number] [address] [place] [address] [place] BONE MARROW CHROMOSOME ANALo n 08-24-2022 CHROMOSOME BM Normal [facility] Comment on above: Order Comment: Order ing Facility: [facility] Address: [address] [address] Result Comment: Denver altman Accession Number: [id number] Doctor: Kavon Lopes Pathologist: [facility] No: [id number] Clinical diagnosis: Thrombocytopenia Specimen Type: Bone Marrow [...] by Guevara Pinto, PhD, FACMG Performed by [facility] Pathology and Laboratory Medicine [facility] Division of Molecular Path[facility], [address] [place] [address] Toll free: Performed By: #### C [facility] #### [facility] CLIA [id number] [address] [place] [address] [place] BRIEF OP NOTon 08-24-2022 BRIEF OP NOT HNO ID: [id number] Author: Rocio Mendoza MD Service: Radiology Author Type: Physician Type: Brief Op Note Filed: 08/24/2022 9:32 AM Note Text: BRIEF PROCEDURE NOTE PATIENT NAME: Macy Morales LOG ID: [id number] Procedure Date: 08/24/2022 PLEASE SEE FULL PROCEDURE NOTE UNDER: Chart Review > Imaging Procedure: CT Guided bone marrow biopsy of posterior RIGHT iliac bone. 11g Italia Pellets biopsy system was used. Specimens: Aspirate (10 cc) and core sample obtained and accepted by the machine shop repair technician who was on hand. Operators: Rocio Mendoza MD Preoperative Diagnosis: thrombocytopenia Postoperative Diagnosis: Same Estimated Blood Loss: 2 cc Condition: Stable Complications: none Timeout Time: 915 Procedure Start Time: 915 Procedure End Time: 919 SIGNATURE: Rolando Mendoza MD DATE: August 24, 2022 TIME: 9:32 AM Normal [facility] CBC W Auto Differential pane l (Bld)on 08-24-2022 Basophils (Bld) [#/Vol] 10*3/uL Normal <0.11 [facility] Comment on above: Order Comment: Morenita flower Type: BLOOD SPECIMEN [facility] Address: [address] [place] [address] Performed By: #### 5 7021-8 #### [facility] CLIA [id number] [address] [place] [address] [place] Basophils/100 WBC (Bld) 0.5 % Normal [facility] Comment on above: Order Comment: Morenita flower Type: BLOOD SPECIMEN [facility] Address: [address] [place] [address] Performed By: #### 5 7021-8 #### [facility] CLIA [id number] [address] [place] [address] [place] Differential cell count method Nom (Bld) Auto Normal [facility] Comment on above: Order Comment: Morenita flower Type: BLOOD SPECIMEN [facility] Address: [address] [place] [address] Performed By: #### 5 7021-8 #### [facility] CLIA [id number] [address] [place] [address] [place] Eosinophils (Bld) [#/Vol] 0.14 10*3/uL Normal <0.46 [facility] Comment on above: Order Comment: Speci men Type: BLOOD SPECIMEN [facility] Address: [address] [address] Performed By: #### 5 7021-8 #### [facility] CLIA [id number] [address] [place] [address] [place] Eosinophils/100 WBC (Bld) 3.3 % Normal [facility] Comment on above: Order Comment: Speci men Type: BLOOD SPECIMEN [facility] Address: [address] [address] Performed By: #### 5 7021-8 #### [facility] CLIA [id number] [address] [place] [address] [place] Erythrocyte distribution width (RBC) [Ratio] 14.6 % Normal 11.5-15.0 [facility] Comment on above: Order Comment: Speci men Type: BLOOD SPECIMEN [facility] Address: [address] [address] Performed By: #### 5 7021-8 #### [facility] CLIA [id number] [address] [place] [address] [place] Hematocrit (Bld) [Volume fraction] 38.4 % Normal 36.0-46.0 [facility] Comment on above: Order Comment: Speci men Type: BLOOD SPECIMEN [facility] Address: [address] [place] [address] Performed By: #### 5 7021-8 #### [facility] CLIA [id number] [address] [place] [address] [place] Hemoglobin (Bld) [Mass/Vol] 13.2 g/dL Normal 11.5-15.5 [facility] Comment on above: Order Comment: Speci men Type: BLOOD SPECIMEN [facility] Address: [address] [place] [address] Performed By: #### 5 7021-8 #### [facility] CLIA [id number] [address] [place] [address] [place] Immature granulocytes (Bld) [#/Vol] 10*3/uL Normal <0.10 [facility] Comment on above: Order Comment: Speci men Type: BLOOD SPECIMEN [facility] Address: [address] [address] Performed By: #### 5 7021-8 #### [facility] CLIA [id number] [address] [place] [address] [place] Immature granulocytes/100 WBC (Bld) 0.5 % Normal [facility] Comment on above: Order Comment: Speci men Type: BLOOD SPECIMEN [facility] Address: [address] [address] Performed By: #### 5 7021-8 #### [facility] CLIA [id number] [address] [place] [address] [place] Lymphocytes (Bld) [#/Vol] 1.11 10*3/uL Normal 1.00-4.0 0 [facility] Comment on above: Order Comment: Speci men Type: BLOOD SPECIMEN [facility] Address: [address] [address] Performed By: #### 5 7021-8 #### [facility] CLIA [id number] [address] [place] [address] [place] Lymphocytes/100 WBC (Bld) 26.4 % Normal [facility] Comment on above: Order Comment: Speci men Type: BLOOD SPECIMEN [facility] Address: [address] [address] Performed By: #### 5 7021-8 #### [facility] CLIA [id number] [address] [place] [address] [place] MCH (RBC) [Entitic mass] 31.4 pg Normal 26.0-34.0 [facility] Comment on above: Order Comment: Speci men Type: BLOOD SPECIMEN [facility] Address: [address] [address] Performed By: #### 5 7021-8 #### [facility] CLIA [id number] [address] [place] [address] [place] MCHC (RBC) [Mass/Vol] 34.4 g/dL Normal 30.5-36.0 [facility] Comment on above: Order Comment: Speci men Type: BLOOD SPECIMEN [facility] Address: [address] [place] [address] Performed By: #### 5 7021-8 #### [facility] CLIA [id number] [address] [place] [address] [place] MCV (RBC) [Entitic vol] 91.2 fL Normal 80.0-100.0 [facility] Comment on above: Order Comment: Speci men Type: BLOOD SPECIMEN [facility] Address: [address] [place] [address] Performed By: #### 5 7021-8 #### [facility] CLIA [id number] [address] [place] [address] [place] Monocytes (Bld) [#/Vol] 0.49 10*3/uL Normal <0.87 [facility] Comment on above: Order Comment: Speci men Type: BLOOD SPECIMEN [facility] Address: [address] [place] [address] Performed By: #### 5 7021-8 #### [facility] CLIA [id number] [address] [place] [address] [place] Monocytes/100 WBC (Bld) 11.6 % Normal [facility] Comment on above: Order Comment: Speci men Type: BLOOD SPECIMEN [facility] Address: [address] [place] [address] Performed By: #### 5 7021-8 #### [facility] CLIA [id number] [address] [place] [address] [place] Neutrophils (Bld) [#/Vol] 2.43 10*3/uL Normal 1.45-7.5 0 [facility] Comment on above: Order Comment: Speci men Type: BLOOD SPECIMEN [facility] Address: [address] [address] Performed By: #### 5 7021-8 #### [facility] CLIA [id number] [address] [place] [address] [place] Neutrophils/100 WBC (Bld) 57.7 % Normal [facility] Comment on above: Order Comment: Speci men Type: BLOOD SPECIMEN [facility] Address: [address] [address] Performed By: #### 5 7021-8 #### [facility] CLIA [id number] [address] [place] [address] [place] Nucleated RBC (Bld) [#/Vol] 10*3/uL Normal <0.01 [facility] Comment on above: Order Comment: Speci men Type: BLOOD SPECIMEN [facility] Address: [address] [address] Performed By: #### 5 7021-8 #### [facility] CLIA [id number] [address] [place] [address] [place] Nucleated RBC/100 WBC (Bld) [Ratio] 0.0 /100 WBC Normal [facility] Comment on above: Order Comment: Speci men Type: BLOOD SPECIMEN [facility] Address: [address] [address] Performed By: #### 5 7021-8 #### [facility] CLIA [id number] [address] [place] [address] [place] Platelet mean volume (Bld) [Entitic vol] 12.2 fL Normal 9.0-12.7 [facility] Comment on above: Order Comment: Speci men Type: BLOOD SPECIMEN [facility] Address: [address] [place] [address] Performed By: #### 5 7021-8 #### [facility] CLIA [id number] [address] [place] [address] [place] Platelets (Bld) [#/Vol] 62 10*3/uL Low 150-400 [facility] Comment on above: Order Comment: Speci men Type: BLOOD SPECIMEN [facility] Address: [address] [address] Result Comment: No c lot detected. Performed By: #### 5 7021-8 #### [facility] CLIA [id number] [address] [place] [address] [place] RBC (Bld) [#/Vol] 4.21 10*6/uL Normal 3.90-5.20 [facility] Comment on above: Order Comment: Speci men Type: BLOOD SPECIMEN [facility] Address: [address] [address] Performed By: #### 5 7021-8 #### [facility] IA [id number] [address] [place] [address] [place] WBC (Bld) [#/Vol] 4.21 10*3/uL Normal 3.70-11.00 [facility] Comment on above: Order Comment: Speci men Type: BLOOD SPECIMEN [facility] Address: [address] [address] Performed By: #### 5 7021-8 #### [facility] IA [id number] [address] [place] [address] [address] [facility] CT BIOPSY BONE MARROW (HEMO) on 08-24-2022 CT BIOPSY BONE MARROW (HEMO) * * *Final Report* * * DATE OF EXAM: Aug 24 2022 9:26AM [facility] 2037 - CT BIOPSY BONE MARROW (HEMO) [...] a small incision was made. A 11g OncNebula bone biopsy needle was advanced to the posterior cortex of the biopsy site under CT guidance and local anesthetic was administered there as well. (5 cc Lidocaine 1 % was administered). The 11 g Oncontrol bone biopsy needle was then advanced through the cortex of the iliac bone. 10 cc of bone marrow aspirate was obtained. Subsequently, the Italia Pellets power drill was used to obtain a core biopsy of the bone marrow. 1 core sample was obtained. The machine shop repair technician was on hand to accept the [...] core sample obtained and accepted by the machine shop repair technician who was on hand. Operators: Rocio [...] Aug 24 2022 9:52A Dictated by: ROCIO MENDOZA MD This examination was interpreted and the report reviewed and electronically signed by: ROCIO MENDOZA MD on Aug 24 2022 4:47PM EST [id number] Normal [facility] DNA EXTRACTION BONE MARROW ( BUFFY COAT)on 08-24-2022 DNA EXTRACTION BONE MARROW (BUFFY COAT) Normal [facility] Comment on above: Order Comment: Order ing Facility[facility] Address: [address] [place] [address] Result Comment: This specimen was received and successfully processed for future DNA purification should molecular testing be needed. Specimens will be available for 3 years from date of collection. To order testing on this specimen for [facility] patients, please place an [employer] order for DNA and RNA Clinical Testing (SQNUCADD). To order testing for patients outside of the [facility] system, please request DNA and RNA for Clinical Testing, order code [id number]. If additional paperwork is required for testing, please send completed forms via secure email to . Performed By: #### C [facility] #### [facility] CLIA [id number] [address] [place] [address] [place] FLOW CYTOMETRY BONE MARROW H OLD (BMHOLD)on 08-24-2022 FLOW CYTOMETRY ORDER STATUS See Results in chart under F case ID [facility] Comment on above: Order Comment: Speci men Type: BONE MARROW SPECIMEN [facility] Address: [address] [place] [address] Performed By: #### B MHOLDRFLX, BMHOLD #### [facility] CLIA [id number] [address] [place] [address] [place] FLOW CYTOMETRY BONE MARROW R EFLEXon 08-24-2022 FLOW CYTOMETRY RESULTS Normal [facility] Comment on above: Order Comment: Speci men Type: BONE MARROW SPECIMEN [facility] Address: [address] [place] [address] Result Comment: Spec imen type: Bone marrow [...] Performed By: #### B DIVINA, BMHOLD #### [facility] CLIA [id number] [address] [place] [address] GROSS DESCRIPTION A. Bone Marrow Normal [facility] Comment on above: Order Comment: Morenita flower Type: BONE MARROW SPECIMEN [facility] Address: [address] [place] [address] Result Comment: Rece ived 2 ml BM in heparin. Performed By: #### B DIVINA, BMHOLD #### [facility] CLIA [id number] [address] [place] [address] INTERPRETATION Normal [facility] Comment on above: Order Comment: Morenita flower Type: BONE MARROW SPECIMEN [facility] Address: [address] [place] [address] Result Comment: Ther e is no evidence of involvement by a lymphoproliferative disorder or abnormal blast population. Correlation with the clinical and bone marrow histopathologic findings is suggested. Performed By: #### B MHASHLEIGH, BMHOLD #### [facility] CLIA [id number] [address] [place] [address] HISTORY PHYSICALon HISTORY PHYSICAL HNO ID: [id number] Author: Rocio Mendoza MD Service: Radiology Author [...] August 24, 2022 TIME: 8:29 AM Normal [facility] HISTORY PHYSICAL HNO ID: [id number] Author: King Dang PA-C Service: Radiology Author Type: Physician Plane Captain Type: HANDP Filed: 08/24/2022 8:00 AM Note Text: [facility] UPDATED HISTORY AND [...] is , HPI obtained with assistance from science interpreter. LUNG:Lungs clear to auscultation anteriorly, Good [...] which included preparing to see the patient, [id number] patient care, obtaining and/or reviewing separately obtained history, and performing a medically appropriate examination. This HANDP can be found in the Electronic Medical Record dated 07/28/2022. SIGNATURE: King Dang PA-C DATE: August 24, 2022 TIME: 7:15 AM Normal [facility] Comprehensive metabolic 2000 panelon 07-13-2022 Albumin [Mass/Vol] 4.4 g/dL 3.9 - 4.9 g/dL [facility] ALP [Catalytic activity/Vol] 251 U/L High 34 - 123 U/L [facility] ALT [Catalytic activity/Vol] 43 U/L High 7 - 38 U/L [facility] Anion gap [Moles/Vol] 12 mmol/L 9 - 18 mmol/L [facility] AST [Catalytic activity/Vol] 62 U/L High 13 - 35 U/L [facility] Bilirubin [Mass/Vol] 1.5 mg/dL High 0.2 - 1 .3 mg/dL [facility] Calcium [Mass/Vol] 9.5 mg/dL 8.5 - 10. 2 mg/dL [facility] Chloride [Moles/Vol] 101 mmol/L 97 - 10 5 mmol/L [facility] CO2 [Moles/Vol] 27 mmol/L 22 - 30 mmol/L [facility] Creatinine [Mass/Vol] 0.47 mg/dL Low 0.58 - 0.96 mg/dL [facility] Estimated Glomerular Filtration Rate 106 mL/min/1.73m >=60 mL/min/1.[address] [facility] Glucose [Mass/Vol] 97 mg/dL 74 - 99 mg/dL [facility] Potassium [Moles/Vol] 3.8 mmol/L 3.7 - 5.1 mmol/L [facility] Protein [Mass/Vol] 7.6 g/dL 6.3 - 8.0 g/dL [facility] Sodium [Moles/Vol] 140 mmol/L 136 - 144 mmol/L [facility] Urea nitrogen [Mass/Vol] 7 mg/dL 7 - 21 mg/dL [facility] CBC panel Auto (Bld)on 06-16 Erythrocyte distribution width (RBC) [Ratio] 15.8 % High 11.5 - 15.0 % [facility] Hematocrit (Bld) [Volume fraction] 43.9 % 36.0 - 46.0 % [facility] Hemoglobin (Bld) [Mass/Vol] 14.5 g/dL 11.5 - 15.5 g/dL [facility] MCH (RBC) [Entitic mass] 30.5 pg 26. 0 - 34.[address] [facility] MCHC (RBC) [Mass/Vol] 33.0 g/dL 30.5 - 36.0 g/dL [facility] MCV (RBC) [Entitic vol] 92.2 fL 80.0 - 100.[address] [facility] Nucleated RBC (Bld) [#/Vol] <0.01 k/uL [facility] Platelet mean volume (Bld) [Entitic vol] 13.0 fL High 9.0 - 12.[address] [facility] Platelets (Bld) [#/Vol] 78 10*3/uL Low 150 - 400 k/uL [facility] RBC (Bld) [#/Vol] 4.76 10*6/uL 3.90 - 5.20 m/uL [facility] WBC (Bld) [#/Vol] 4.26 10*3/uL 3.70 - 11.00 k/uL [facility] Absolute lymphocyte countOrd ered By: Dr. Lopez on 06-03-2022 Lymphocytes Auto (Unsp spec) [#/Vol] 1.10 10*3/uL 0.83-4.51 [facility] Basophil percentageOrdered B y: Dr. Lopez on 06-03-2022 Basophil percentage 3.7 mg/dL 2.5-4.9 [facility] Basophils/100 WBC (Bld) 0.4 % 0-1 [facility] Chloride [Moles/Vol] 108 mmol/L 98-107 [facility] Eosinophils/100 WBC (Bld) 3.9 % 0-5 [facility] Glucose [Mass/Vol] 130 mg/dL 74-106 [facility] Comment on above: Fasting Glucose resu lt greater than or equal to 126 mg/dL suggests DIABETES MELLITUS per A.D.A. criteria. Neutrophils (Bld) [#/Vol] 1.3 10*3/uL 2.0-7.7 [facility] Neutrophils/100 WBC (Bld) 44.0 % 47-70 [facility] Potassium [Moles/Vol] 4.1 mmol/L 3.5-5.1 [facility] Sodium [Moles/Vol] 142 mmol/L 136-145 [facility] WBC (Bld) [#/Vol] 2.8 10*3/uL 4.4-11.0 [facility] Blood erythrocytes count (nu mber/volume)Ordered By: Dr. Lopez on 06-03-2022 RBC (Bld) [#/Vol] 4.40 10*6/uL 4.2-5.4 [facility] Blood hemoglobin measurement (mass/volume)Ordered By: Dr. Lopez on 06-03-2022 Hemoglobin (Bld) [Mass/Vol] 13.4 g/dL 12.0-15.0 [facility] Blood lymphocytes/100 leukoc ytesOrdered By: Dr. Lopez on 06-03-2022 Lymphocytes/100 WBC (Bld) 38.9 % 19-41 [facility] Blood monocytes/100 leukocyt esOrdered By: Dr. Lopez on 06-03-2022 Monocytes/100 WBC (Bld) 12.4 % 0-10 [facility] Blood platelet mean volumeOr dered By: Dr. Lopez on 06-03-2022 Platelet mean volume (Bld) [Entitic vol] 12.5 fL 6.2-12.0 [facility] Determination of erythrocyte mean corpuscular volume (MCV)Ordered By: Dr. oLpez on 06-03-2022 MCV (RBC) [Entitic vol] 91.8 fL 81-99 [facility] Glucose Glucometer (BldC) [M ass/Vol]Ordered By: Dr. Maddox on 06-03-2022 Glucose [Mass/Vol] 218 mg/dL 74-106 [facility] Comment on above: MANAGEMENT OF PATIEN T CARE PER NURSING PROTOCOL Hematocrit Auto (Bld) [Volum e fraction]Ordered By: Dr. Lopez on 06-03-2022 Hematocrit (Bld) [Volume fraction] 40.4 % 37-47 [facility] Laboratory - Chemistry and C hemistry - challengeOrdered By: Dr. Lopez on 06-03-2022 CO2 [Moles/Vol] 27.0 mmol/L 21.0-32.0 [facility] Magnesium [Mass/Vol] 1.9 mg/dL 1.6-2.6 [facility] Urea nitrogen/Creatinine [Mass ratio] 15.4 mg/mg 10-20 [facility] Laboratory - Chemistry and C hemistry - challengeOrdered By: Dr. Maddox on 06-03-2022 Free T4 [Mass/Vol] 0.93 ng/dL 0.76-1.46 [facility] Laboratory - Hematology and Cell countsOrdered By: Dr. Lopez on 06-03-2022 Erythrocyte distribution width (RBC) [Entitic vol] 49.8 fL 35.1-43.9 [facility] Erythrocyte distribution width (RBC) [Ratio] 14.7 % 11.6-14.6 [facility] Immature granulocytes/100 WBC (Bld) 0.400 % 0.0-0.9 [facility] Comment on above: IG% - Immature Granu locytes (promyelocytes, myelocytes and metamyelocytes) > 1% indicates that a LEFT SHIFT is Present. MCH (RBC) [Entitic mass] 30.5 pg 27.0-32.0 [facility] Nucleated RBC/100 WBC (Bld) [Ratio] 0 % 0-5 [facility] MCHC Auto (RBC) [Mass/Vol]Or dered By: Dr. Lopez on 06-03-2022 MCHC (RBC) [Mass/Vol] 33.2 g/dL 32-36 [facility] No Panel InformationOrdered By: Dr. Lopez on 06-03-2022 Estimated Creatinine Clearance Calc 98.35 ml/min [facility] Estimated GFR (MDRD) Amer 152 mL/min >60 [facility] Comment on above: GFR Calc Estimated GFR (MDRD) Non-Af Amer 126 mL/min >60 [facility] Comment on above: Non- GFR Calc Thyroid Stimulating Hormone (TSH) 4.27 uIU/mL 0.358-3.74 [facility] Platelets bldOrdered By: Dr. Lopez on 06-03-2022 Platelets (Bld) [#/Vol] 63 10*3/uL 150-450 [facility] Serum or plasma calcium cheri urement (mass/volume)Ordered By: Dr. Lopez on 06-03-2022 Calcium [Mass/Vol] 8.7 mg/dL 8.5-10.1 [facility] Serum or plasma creatinine m easurement (mass/volume)Ordered By: Dr. Lopez on 06-03-2022 Creatinine [Mass/Vol] 0.52 mg/dL 0.55-1.02 [facility] Comment on above: The validity of the calculated GFR & GFRAA in patients over 70 years has not been determined. Clinical correlation is essential. Serum or plasma urea nitroge n measurement (mass/volume)Ordered By: Dr. Lopez on 06-03-2022 Urea nitrogen [Mass/Vol] 8 mg/dL 7-18 [facility] Thin prep Papanicolaou smear with manual screeningOrdered By: Dr. Lopez on 06-03-2022 Thin prep Papanicolaou smear with manual screening 7 5-15 [facility] Basophil percentageOrdered B y: Dr. Toussaint on 06-02-2022 Cholesterol [Mass/Vol] 179 mg/dL <200 [facility] Comment on above: <200 mg/dL Desirable 200-240 mg/dL Borderline >240 mg/dL High Risk Triglyceride [Mass/Vol] 85 mg/dL <199 [facility] Comment on above: The drugs N-Acetylcy steine and Metamizole may falsely depress this assay.Serum Triglycerides Reference Interval Normal <150 mg/dL Borderline high 150 - 199 mg/dL High 200 - 499 mg/dL Very High > or = 500 mg/dL Blood platelet adequacy dete ction by light microscopyOrdered By: Dr. Toussaint on 06-02-2022 Platelets LM Ql (Bld) MOD DEC ADEQ [facility] Laboratory - Hematology and Cell countsOrdered By: Dr. Toussaint on 06-02-2022 Anisocytosis Ql (Bld) 1+ [facility] Serum or plasma cholesterol in HDL measurement (mass/volume)Ordered By: Dr. Toussaint on 06-02-2022 Cholesterol in HDL [Mass/Vol] 76 mg/dL >40 [facility] Comment on above: The drugs N-Acetylcy steine and Metamizole may falsely depress this assay. Reference Range HDL <40 mg/dL Low HDL Cholesterol HDL >or= 60 mg/dL High HDL Cholesterol Serum or plasma cholesterol in VLDL measurement (mass/volume)Ordered By: Dr. Toussaint on 06-02-2022 Cholesterol in VLDL [Mass/Vol] 17 mg/dL 5-40 [facility] Serum or plasma low density lipoprotein (LDL) cholesterol measurement (mass/volume)Ordered By: Dr. Toussaint on 06-02-2022 Cholesterol in LDL [Mass/Vol] 86 mg/dL 0-130 [facility] Whole blood hemoglobin A1c/t otal hemoglobin ratio (mass fraction)Ordered By: Dr. Toussaint on 06-02-2022 HbA1c (Bld) [Mass fraction] 6.6 % 3.8-5.6 [facility] Comment on above: Normal < 5.7 % Predi abetic 5.7 - 6.4 % Diabetic >or= 6.5 % Please note range changes. Absolute lymphocyte countOrd ered By: Dr. Naqvi on 06-01-2022 Lymphocytes Auto (Unsp spec) [#/Vol] 1.88 10*3/uL 0.83-4.51 [facility] Basophil percentageOrdered B y: Dr. Naqvi on 06-01-2022 Basophils/100 WBC (Bld) 0.8 % 0-1 [facility] Chloride [Moles/Vol] 103 mmol/L 98-107 [facility] Eosinophils/100 WBC (Bld) 3.3 % 0-5 [facility] Glucose [Mass/Vol] 116 mg/dL 74-106 [facility] Comment on above: Fasting Glucose resu lt from 100 to 125 mg/dL suggests IMPAIRED HOMEOSTASIS per A.D.A. criteria. Neutrophils (Bld) [#/Vol] 2.5 10*3/uL 2.0-7.7 [facility] Neutrophils/100 WBC (Bld) 47.6 % 47-70 [facility] Potassium [Moles/Vol] 3.8 mmol/L 3.5-5.1 [facility] Sodium [Moles/Vol] 138 mmol/L 136-145 [facility] WBC (Bld) [#/Vol] 5.2 10*3/uL 4.4-11.0 [facility] Blood erythrocytes count (nu mber/volume)Ordered By: Dr. Naqvi on 06-01-2022 RBC (Bld) [#/Vol] 4.76 10*6/uL 4.2-5.4 [facility] Blood hemoglobin measurement (mass/volume)Ordered By: Dr. Naqvi on 06-01-2022 Hemoglobin (Bld) [Mass/Vol] 14.6 g/dL 12.0-15.0 [facility] Blood lymphocytes/100 leukoc ytesOrdered By: Dr. Naqvi on 06-01-2022 Lymphocytes/100 WBC (Bld) 36.2 % 19-41 [facility] Blood monocytes/100 leukocyt esOrdered By: Dr. Naqvi on 06-01-2022 Monocytes/100 WBC (Bld) 11.9 % 0-10 [facility] Blood platelet mean volumeOr dered By: Dr. Naqvi on 06-01-2022 Platelet mean volume (Bld) [Entitic vol] 12.7 fL 6.2-12.0 [facility] Determination of erythrocyte mean corpuscular volume (MCV)Ordered By: Dr. Naqvi on 06-01-2022 MCV (RBC) [Entitic vol] 91.8 fL 81-99 [facility] Glucose Glucometer (BldC) [M ass/Vol]Ordered By: Dr. Naqvi on 06-01-2022 Glucose [Mass/Vol] 114 mg/dL 74-106 [facility] Comment on above: MANAGEMENT OF PATIEN T CARE PER NURSING PROTOCOL Hematocrit Auto (Bld) [Volum e fraction]Ordered By: Dr. Naqvi on 06-01-2022 Hematocrit (Bld) [Volume fraction] 43.7 % 37-47 [facility] INR in Blood by Coagulation assayOrdered By: Dr. Naqvi on 06-01-2022 INR Coag (Bld) [Relative time] 1.1 {INR} [facility] Laboratory - Chemistry and C hemistry - challengeOrdered By: Dr. Naqvi on 06-01-2022 CO2 [Moles/Vol] 31.0 mmol/L 21.0-32.0 [facility] Urea nitrogen/Creatinine [Mass ratio] 18.0 mg/mg 10-20 [facility] Laboratory - CoagulationOrde red By: Dr. Naqvi on 06-01-2022 aPTT Coag (Bld) [Time] 33.4 s 24.1-36.2 [facility] PT Coag (PPP) [Time] 14.2 s 11.7-14.9 [facility] Laboratory - Hematology and Cell countsOrdered By: Dr. Naqvi on 06-01-2022 Erythrocyte distribution width (RBC) [Entitic vol] 51.5 fL 35.1-43.9 [facility] Erythrocyte distribution width (RBC) [Ratio] 14.9 % 11.6-14.6 [facility] Immature granulocytes/100 WBC (Bld) 0.200 % 0.0-0.9 [facility] Comment on above: IG% - Immature Granu locytes (promyelocytes, myelocytes and metamyelocytes) > 1% indicates that a LEFT SHIFT is Present. MCH (RBC) [Entitic mass] 30.7 pg 27.0-32.0 [facility] Nucleated RBC/100 WBC (Bld) [Ratio] 0 % 0-5 [facility] MCHC Auto (RBC) [Mass/Vol]Or dered By: Dr. Naqvi on 06-01-2022 MCHC (RBC) [Mass/Vol] 33.4 g/dL 32-36 [facility] No Panel InformationOrdered By: Dr. Naqvi on 06-01-2022 Estimated Creatinine Clearance Calc 66.92 ml/min [facility] Estimated GFR (MDRD) Amer 126 mL/min >60 [facility] Comment on above: GFR Calc Estimated GFR (MDRD) Non-Af Amer 104 mL/min >60 [facility] Comment on above: Non- GFR Calc Troponin I High Sensitivity 4 pg/mL 3.0-54.0 [facility] Comment on above: Please Note: New Chante t Units and Gender Specific Reference Ranges. For more information see Policy Stat Procedure Rogers High Sensitivity Troponin (TNIH) and attachments. Platelets bldOrdered By: Dr. Naqvi on 06-01-2022 Platelets (Bld) [#/Vol] 100 10*3/uL 150-450 [facility] Serum or plasma calcium cheri urement (mass/volume)Ordered By: Dr. Naqvi on 06-01-2022 Calcium [Mass/Vol] 10.0 mg/dL 8.5-10.1 [facility] Serum or plasma creatinine m easurement (mass/volume)Ordered By: Dr. Naqvi on 06-01-2022 Creatinine [Mass/Vol] 0.61 mg/dL 0.55-1.02 [facility] Comment on above: The validity of the calculated GFR & GFRAA in patients over 70 years has not been determined. Clinical correlation is essential. Serum or plasma urea nitroge n measurement (mass/volume)Ordered By: Dr. Naqvi on 06-01-2022 Urea nitrogen [Mass/Vol] 11 mg/dL 09-29 [facility] Thin prep Papanicolaou smear with manual screeningOrdered By: Dr. Naqvi on 06-01-2022 Thin prep Papanicolaou smear with manual screening 07-27 [facility] No Panel Informationon 09-02 [facility] CORONAVIRUS PCR [CCL]on 01-14 REF LAB REPORT Positive Normal [facility] Comment on above: Performed By: #### 2 [id number] #### [facility],[address] [place] [address] SEND TO ? YES Normal [facility] Comment on above: Performed By: #### 2 [id number] #### [facility],[address] [place], [place] [id number] COVID 19 Result [employer] Positive Abnormal [facility] Comment on above: Result Comment: Posi tive for COVID19 (SARS CoV2) by PCR.(*) This test was developed and its performance characteristics determined by [facility]'s [place] [facility] [place]. This test has been authorized by FDA under an Emergency Use Authorization (EUA). This test has been validated in accordance with the FDA's Guidance Document Policy for Diagnostics Testing in Laboratories Certified to Perform High Complexity Testing under CLIA prior to Emergency use Authorization for Coronavirus Disease 2019 during the Public Health Emergency issued on May 13, 2019. [facility] [address] [place] [address] Neftaly López III, M.D. [id number] Performed By: #### 2 [id number] #### [facility],[address] [place], [place] [id number] COVID 19 Source [employer] Nasopharyngeal Swab Normal [facility] Comment on above: Result Comment: Jason ected on 02/03 AT 1019: Previously reported as U Performed By: #### 2 [id number] #### [facility],[address] [place] [address] Coronavirus 2018on 0 COVID 19 Result [employer] Abnormal Negative for COVID19 (SARS CoV2) by PCR. [facility] Reference Lab Comment on above: Result Comment: Posi tive for This test was developed and its performance characteristics determined by [facility]'s [facility] [place]. This test has been authorized by FDA [...] developed and its performance characteristics determined by [facility]'s [facility] [place]. This test has been authorized by FDA [...] developed and its performance characteristics determined by [facility] [place]. This test has been authorized by FDA [...] developed and its performance characteristics determined by [facility]'s [facility] [place]. This test has been authorized by FDA under an Emergency Use Authorization (EUA). This test has been validated in accordance with the FDA's Guidance Document Policy for Diagnostics Testing in Laboratories Certified to Perform High Complexity Testing under CLIA prior to Emergency use Authorization for Coronavirus Disease 2019 during the Public Health Emergency issued on May 13, 2019. Coronavirus 0 COVID 19 Source [employer] Normal [facility] Reference [facility] Comment on above: Result Comment: Naso pharyngeal Corrected on 02/03 AT 1019: Previously reported as U Swab Corrected on 02/03 AT 1019: Previously reported as U HGB A1C [CCL]on 11-11-2019 HbA1c (Bld) [Mass fraction] 338 mg/dL Normal [facility] Comment on above: Result Comment: eAG: (Estimated average glucose) is a calculated value from HgbA1c and is dental detail representative of the average blood glucose level in the last 2-[address] [facility] [address] [place] [address] Neftaly López III, M.D. [id number] Performed By: #### 2 [id number] #### [facility],[address] [place], [place] [id number] HbA1c (Bld) [Mass fraction] 13.4 % High 4.3-5.6 [facility] Comment on above: Result Comment: Amer [place] Diabetes Association guidelines indicate that patients with HgbA1c in the range 5.7-6.4% are at increased risk for development of diabetes, and intervention by lifestyle modification may be beneficial. HgbA1c greater or equal to 6.5% is considered diagnostic of diabetes. Performed By: #### 2 [id number] #### [facility],[address] [place], [place] [id number] Hemoglobin A1con 11-11-2019 HbA1c (Bld) [Mass fraction] 13.4 % High 4.3-5.6 [facility] Reference Lab Comment on above: Performed By: #### H BA1C #### [facility] Laboratories Routine Lab [address] [address] HbA1c (Bld) [Mass fraction] 338 mg/dL Normal [facility] Reference Lab Comment on above: Performed By: #### H BA1C #### [facility] Routine Lab [address] [address] CMP with eGFRon 11-10-2019 Age - Reported 64 years Normal [facility] Comment on above: Performed By: #### 2 [id number] #### [facility],[address] [place] [address] Albumin [Mass/Vol] 4.1 g/dL Normal 3.4 - 4.8 [facility] Comment on above: Performed By: #### 2 [id number] #### [facility],[address] [place] [address] Albumin/Globulin [Mass ratio] 1.4 {ratio} Normal 0.9 - 1.6 [facility] Comment on above: Performed By: #### 2 [id number] #### [facility],[address] [place] [address]4892 ALK PHOS 230 U/L High 38 - 126 [facility] Comment on above: Performed By: #### 2 [id number] #### [facility],[address] [place] [address] 57747 ALT/SGPT 48 U/L High 8 - 35 [facility] Comment on above: Performed By: #### 2 [id number] #### [facility],[address] [place] [address] Anion gap [Moles/Vol] 15 mmol/L Normal 10 - 20 [facility] Comment on above: Performed By: #### 2 [id number] #### [facility],[address] [place] [address] 79277 AST/SGOT 49 U/L High 13 - 39 [facility] Comment on above: Performed By: #### 2 [id number] #### [facility],[address] [place] [address] 40119 B/C RATIO 20 ratio Normal 0 - 30 [facility] Comment on above: Performed By: #### 2 [id number] #### [facility],[address] [place] [address] 03068 Bilirubin [Mass/Vol] 1.4 mg/dL Normal 0.0 - 1.5 [facility] Comment on above: Performed By: #### 2 [id number] #### [facility],[address] [place] [address]50 Calcium [Mass/Vol] 9.5 mg/dL Normal 8.6 - 10.2 [facility] Comment on above: Performed By: #### 2 89992 #### [facility],[address] [place] [address] 89189 Chloride [Moles/Vol] 97 mmol/L Low 98 - 107 [facility] Comment on above: Performed By: #### 2 [id number] #### [facility],[address] [place] [address]250 CO2 [Moles/Vol] 28.3 mmol/L Normal 21.0 - 31.0 [facility] Comment on above: Performed By: #### 2 [id number] #### [facility],[address] [place] [address]6316 Creatinine [Mass/Vol] 0.6 mg/dL Normal 0.6 - 1.2 [facility] Comment on above: Performed By: #### 2 [id number] #### [facility],[address] [place] [address] 74268 GFR/1.73 sq M predicted among non-blacks MDRD (S/P/Bld) [Vol rate/Area] mL/min/{1.73_m2} Normal 60 - 999 [facility] Comment on above: Result Comment: ACCO RDING TO THE NATIONAL KIDNEY DISEASE EDUCATION PROGRAM(NKDE), A NORMAL eGFR IS A VALUE GREATER THAN OR EQUAL TO 60 ML/MIN/1.73 SQ METERS. CHRONIC KIDNEY DISEASE: <60mL/MIN/1.73 SQ METERS KIDNEY FAILURE: <15mL/MIN/1.73 SQ METERS THIS TEST SHOULD ONLY BE USED FOR PATIENTS 18 YEARS OF AGE AND OLDER. Performed By: #### 2 [id number] #### [facility],[address] [place] [address]70 GFR/1.73 sq M predicted among non-blacks MDRD (S/P/Bld) [Vol rate/Area] Normal [facility] Comment on above: Result Comment: COMP REHENSIVE METABOLIC PANEL Performed By: #### 2 [id number] #### [facility],[address] [place] [address] 79429 Globulin (S) [Mass/Vol] 3.0 g/dL Normal 1.5 - 3.8 [facility] Comment on above: Performed By: #### [id number] #### [facility],[address] [place] [id number] Glucose [Mass/Vol] 299 mg/dL High 74 - 106 [facility] Comment on above: Performed By: #### [id number] #### [facility],[address] [place] [address] 61066 Potassium [Moles/Vol] 4.4 mmol/L Normal 3.5 - 5.1 [facility] Comment on above: Performed By: #### 2 [id number] #### [address] [address] Protein [Mass/Vol] 7.1 g/dL Normal 6.4 - 8.3 [facility] Comment on above: Performed By: #### 2 [id number] #### [facility],[address] [place] [address] 27941 Sodium [Moles/Vol] 136 mmol/L Normal 136 - 145 [facility] Comment on above: Performed By: #### 2 [id number] #### [facility],[address] [place] [address] 32318 Urea nitrogen [Mass/Vol] 12 mg/dL Normal 6 - 20 [facility] Comment on above: Performed By: #### 2 [id number] #### [facility],[address] [place] [address] 92478 LIPID PROFILEon 11-10-2019 Cholesterol [Mass/Vol] 232 mg/dL High 0 - 200 [facility] Comment on above: Performed By: #### 2 [id number] #### [facility],[address] [place] [address] 51974 Cholesterol in HDL [Mass/Vol] 72 mg/dL High 40 - 60 [facility] Comment on above: Performed By: #### 2 [id number] #### [facility],[address] [place] [address] 02581 Cholesterol in LDL [Mass/Vol] 131 mg/dL High 0 - 129 [facility] Comment on above: Performed By: #### 2 [id number] #### [facility],[address] [place] [address] 07798 Cholesterol.total/Cholest jason in HDL [Mass ratio] 3.2 {ratio} Normal 0.0 - 5.0 [facility] Comment on above: Performed By: #### 2 [id number] #### [facility],[address] [place] [address] 60670 Lipid 1996 panel Normal [facility] Comment on above: Result Comment: LIPI D PROFILE Performed By: #### 2 [id number] #### [facility],[address] [place] [address]01 Triglyceride [Mass/Vol] 145 mg/dL Normal 0 - 150 [facility] Comment on above: Performed By: #### 2 [id number] #### [facility],[address] [place] [address] 69099 Vital Signs Date Time Vital Sign Value Performing Clinician Faci khurramy 10-18-2024 08:55-0400 Body temperature 98.1 [degF] Dr. Angelita Call MD Work Phone: [facility] 10-18-2024 08:55-0400 Diastolic blood pressure 55 mm[Hg] Dr. Angelita Call MD Work Phone: [facility] 10-18-2024 08:55-0400 Heart rate 72 /min Dr. Angelita Call MD Work Phone: [facility] 10-18-2024 08:55-0400 Respiratory rate 14 /min Dr. Angelita Call MD Work Phone: [facility] 10-18-2024 08:55-0400 SaO2% (BldA) [Mass fraction] 100 % Dr. Angelita Call MD Work Phone: [facility] 10-18-2024 08:55-0400 Systolic blood pressure 126 mm[Hg] Dr. Angelita Call MD Work Phone: [facility] 10-18-2024 07:15-0400 Body height 152.[address] Angelita Call MD Work Phone: [facility] 10-18-2024 07:15-0400 Body mass index (BMI) [Ratio] 36.1 kg/m2 Dr. Angelita Call MD Work Phone: [facility] 10-18-2024 07:15-0400 Body weight [address] Angelita Call MD Work Phone: [facility] 08-10-2024 09:10-0400 Body height 152.[address] Angelita Call MD Work Phone: [facility] 08-10-2024 09:10-0400 Body mass index (BMI) [Ratio] 35.8 kg/m2 Dr. Angelita Call MD Work Phone: [facility] 08-10-2024 09:10-0400 Body weight 83.[address] Angelita Call MD Work Phone: [facility] 08-10-2024 09:10-0400 Diastolic blood pressure 80 mm[Hg] Dr. Angelita Call MD Work Phone: [facility] 08-10-2024 09:10-0400 Heart rate 69 /min Dr. Angelita Call MD Work Phone: [facility] 08-10-2024 09:10-0400 Respiratory rate 16 /min Dr. Angelita Call MD Work Phone: [facility] 08-10-2024 09:10-0400 SaO2% (BldA) [Mass fraction] 98 % Dr. Angelita Call MD Work Phone: [facility] 08-10-2024 09:10-0400 Systolic blood pressure 146 mm[Hg] Dr. Angelita Call MD Work Phone: [facility] 07-04-2024 11:13-0400 Body height 152.[address] Angelita Call MD Work Phone: [facility] 07-04-2024 11:13-0400 Body mass index (BMI) [Ratio] 38.5 kg/m2 Dr. Angelita Call MD Work Phone: [facility] 07-04-2024 11:13-0400 Body weight 89.[address] Angelita Call MD Work Phone: [facility] 07-04-2024 11:13-0400 Diastolic blood pressure 81 mm[Hg] Dr. Angelita Call MD Work Phone: [facility] 07-04-2024 11:13-0400 Heart rate 75 /min Dr. Angelita Call MD Work Phone: [facility] 07-04-2024 11:13-0400 Respiratory rate 16 /min Dr. Angelita Call MD Work Phone: [facility] 07-04-2024 11:13-0400 SaO2% (BldA) [Mass fraction] 98 % Dr. Angelita Call MD Work Phone: [facility] 07-04-2024 11:13-0400 Systolic blood pressure 146 mm[Hg] Dr. Angelita Call MD Work Phone: [facility] 05-29-2024 12:36-0400 Body height 152.[address] Angelita Call MD Work Phone: [facility] 05-29-2024 12:36-0400 Body mass index (BMI) [Ratio] 37.5 kg/m2 Dr. Angelita Call MD Work Phone: [facility] 05-29-2024 12:36-0400 Body weight 87.[address] Angelita Call MD Work Phone: [facility] 09-08-2023 12:04-0400 Body mass index (BMI) [Ratio] 36.64 kg/m2 Bruce Brookebobby UNIX ARCHITECT.I[employer]C TECH Work Phone: [facility] 09-08-2023 12:04-0400 Body temperature 98.71 [degF] Bruce Coxbobby UNIX ARCHITECT.I&C TECH Work Phone: [facility] 09-08-2023 12:04-0400 Body weight 85.1 kg Bruce Coxbobby UNIX ARCHITECT.I&C TECH Work Phone: [facility] 09-08-2023 12:04-0400 Diastolic blood pressure 92 mm[Hg] Bruce Coxbobby UNIX ARCHITECT.I&C TECH Work Phone: [facility] 09-08-2023 12:04-0400 Heart rate 78 /min Bruce Yu UNIX ARCHITECT.I&C TECH Work Phone: [facility] 09-08-2023 12:04-0400 Respiratory rate 16 /min Bruce Yu UNIX ARCHITECT.I&C TECH Work Phone: [facility] 09-08-2023 12:04-0400 SaO2% (BldA) [Mass fraction] 98 % Bruce Yu UNIX ARCHITECT.I&C TECH Work Phone: [facility] 09-08-2023 12:04-0400 Systolic blood pressure 146 mm[Hg] Bruce Coxbobby UNIX ARCHITECT.I&C TECH Work Phone: [facility] 07-13-2023 10:13-0400 Body mass index (BMI) [Ratio] 38.67 kg/m2 Ana Browning UNIX ARCHITECT.I&C TECH Work Phone: [facility] 07-13-2023 10:13-0400 Body weight 89.81 kg Ana Alie UNIX ARCHITECT.I&C TECH Work Phone: [facility] 07-13-2023 10:13-0400 Diastolic blood pressure 76 mm[Hg] Ana Alie UNIX ARCHITECT.I&C TECH Work Phone: [facility] 07-13-2023 10:13-0400 Heart rate 84 /min Ana Alie UNIX ARCHITECT.I&C TECH Work Phone: [facility] 07-13-2023 10:13-0400 Respiratory rate 16 /min Ana Alie UNIX ARCHITECT.I&C TECH Work Phone: [facility] 07-13-2023 10:13-0400 SaO2% (BldA) [Mass fraction] 98 % Ana Alie UNIX ARCHITECT.I&C TECH Work Phone: [facility] 07-13-2023 10:13-0400 Systolic blood pressure 148 mm[Hg] Ana Alie UNIX ARCHITECT.I&C TECH Work Phone: [facility] 07-09-2023 13:45-0400 Body temperature 97.9 [degF] Dr. Elder Reddy Work Phone: [facility] 07-09-2023 13:45-0400 Diastolic blood pressure 74 mm[Hg] Dr. Elder Reddy Work Phone: [facility] 07-09-2023 13:45-0400 Heart rate 94 /min Dr. Elder Reddy Work Phone: [facility] 07-09-2023 13:45-0400 Respiratory rate 16 /min Dr. Elder Reddy Work Phone: [facility] 07-09-2023 13:45-0400 SaO2% (BldA) [Mass fraction] 100 % Dr. Elder Reddy Work Phone: [facility] 07-09-2023 13:45-0400 Systolic blood pressure 140 mm[Hg] Dr. Elder Reddy Work Phone: [facility] 07-09-2023 02:29-0400 Body mass index (BMI) [Ratio] 40.1 kg/m2 Dr. Elder Reddy Work Phone: [facility] 07-09-2023 02:29-0400 Body weight 92.[address] Elder Reddy Work Phone: [facility] 07-06-2023 11:39-0400 Body height 152.[address] Elder Reddy Work Phone: [facility] 07-06-2023 04:37-0400 Diastolic blood pressure 76 mm[Hg] [facility] 07-06-2023 04:37-0400 Heart rate 81 /min [facility] 07-06-2023 04:37-0400 Respiratory rate 16 /min [facility] 07-06-2023 04:37-0400 SaO2% (BldA) [Mass fraction] 99 % [facility] 07-06-2023 04:37-0400 Systolic blood pressure 112 mm[Hg] [facility] 07-06-2023 04:20-0400 Body temperature 98 [degF] [facility] 07-06-2023 02:38-0400 Body height 152.4 cm [facility] 07-06-2023 02:38-0400 Body mass index (BMI) [Ratio] 36.3 kg/m2 [facility] 07-06-2023 02:38-0400 Body weight 84.5 kg [facility] 06-29-2023 14:40-0400 Body height 152.4 cm Cecilia Powers MD Work Phone: [facility] 06-29-2023 14:40-0400 Body temperature 97.59 [degF] Cecilia Powers MD Work Phone: [facility] 06-29-2023 14:40-0400 Body weight 84.4 kg Cecilia Powers MD Work Phone: [facility] 04-16-2024 14:40-0400 Diastolic blood pressure 54 mm[Hg] Cecilia Powers MD Work Phone: [facility] 06-29-2023 14:40-0400 Heart rate 84 /min Cecilia Powers MD Work Phone: [facility] 06-29-2023 14:40-0400 SaO2% (BldA) [Mass fraction] 98 % Cecilia Powers MD Work Phone: [facility] 06-29-2023 14:40-0400 Systolic blood pressure 134 mm[Hg] Cecilia Powers MD Work Phone: [facility] 05-03-2023 12:48-0500 Body temperature 97.81 [degF] Pepe Praisler-Wood UNIX ARCHITECT.I&C TECH Work Phone: [facility] 05-03-2023 12:48-0500 Body weight 84.28 kg Pepe Praisler-Wood UNIX ARCHITECT.I&C TECH Work Phone: [facility] 05-03-2023 12:48-0500 Diastolic blood pressure 82 mm[Hg] Pepe Praisler-Wood UNIX ARCHITECT.I&C TECH Work Phone: [facility] 05-03-2023 12:48-0500 Heart rate 81 /min Pepe Praisler-Wood UNIX ARCHITECT.I&C TECH Work Phone: [facility] 05-03-2023 12:48-0500 Respiratory rate 16 /min Pepe Praisler-Wood UNIX ARCHITECT.I&C TECH Work Phone: [facility] 05-03-2023 12:48-0500 SaO2% (BldA) [Mass fraction] 99 % Pepe Praisler-Wood UNIX ARCHITECT.I&C TECH Work Phone: [facility] 05-03-2023 12:48-0500 Systolic blood pressure 128 mm[Hg] Pepe Praisler-Wood UNIX ARCHITECT.I&C TECH Work Phone: [facility] 04-26-2023 17:07-0500 Diastolic blood pressure 70 mm[Hg] Elder Reddy MD Work Phone: [facility] 04-26-2023 17:07-0500 Heart rate 86 /min Elder Reddy MD Work Phone: [facility] 04-26-2023 17:07-0500 Systolic blood pressure 144 mm[Hg] Elder Reddy MD Work Phone: [facility] 04-26-2023 16:57-0500 Body temperature 98.6 [degF] Elder Reddy MD Work Phone: [facility] 04-26-2023 16:57-0500 Body weight 85.28 kg Elder Reddy MD Work Phone: [facility] 02-23-2023 10:02-0500 Body weight 84.82 kg Ana Alie UNIX ARCHITECT.I&C TECH Work Phone: [facility] 02-23-2023 10:02-0500 Diastolic blood pressure 90 mm[Hg] Ana Alie UNIX ARCHITECT.I&C TECH Work Phone: [facility] 02-23-2023 10:02-0500 Heart rate 76 /min Ana Alie UNIX ARCHITECT.I&C TECH Work Phone: [facility] 02-23-2023 10:02-0500 Respiratory rate 16 /min Ana Alie UNIX ARCHITECT.I&C TECH Work Phone: [facility] 02-23-2023 10:02-0500 Systolic blood pressure 169 mm[Hg] Ana Alie UNIX ARCHITECT.I&C TECH Work Phone: [facility] 10-20-2022 10:38-0400 Diastolic blood pressure 68 mm[Hg] Ana Older UNIX ARCHITECT.I&C TECH Work Phone: [facility] 10-20-2022 10:38-0400 Systolic blood pressure 120 mm[Hg] Ana Older UNIX ARCHITECT.I&C TECH Work Phone: [facility] 10-20-2022 10:20-0400 Body weight 83.92 kg Ana Older UNIX ARCHITECT.I&C TECH Work Phone: [facility] 08-08-2023 10:20-0400 Heart rate 60 /min Ana Older UNIX ARCHITECT.I&C TECH Work Phone: [facility] 10-20-2022 10:20-0400 Respiratory rate 16 /min Ana Older UNIX ARCHITECT.I&C TECH Work Phone: [facility] 07-13-2022 10:56-0400 Body height 149.9 cm Kavon Masci DO Work Phone: [facility] 07-13-2022 10:56-0400 Body temperature 97.3 [degF] Kavon Masci DO Work Phone: [facility] 07-13-2022 10:56-0400 Body weight 85.28 kg Kavon Masci DO Work Phone: [facility] 07-13-2022 10:56-0400 Diastolic blood pressure 73 mm[Hg] Kavon Masci DO Work Phone: [facility] 07-13-2022 10:56-0400 Heart rate 76 /min Kavon Masci DO Work Phone: [facility] 07-13-2022 10:56-0400 Systolic blood pressure 130 mm[Hg] Kavon Masci DO Work Phone: [facility] 06-23-2022 09:08-0400 Body height 152.4 cm Elder Reddy MD Work Phone: [facility] 06-23-2022 09:08-0400 Body weight 83.92 kg Elder Reddy MD Work Phone: [facility] 06-23-2022 09:08-0400 Diastolic blood pressure 80 mm[Hg] Elder Reddy MD Work Phone: [facility] 06-23-2022 09:08-0400 Heart rate 82 /min Elder Reddy MD Work Phone: [facility] 06-23-2022 09:08-0400 Respiratory rate 16 /min Elder Reddy MD Work Phone: [facility] 06-23-2022 09:08-0400 Systolic blood pressure 118 mm[Hg] Elder Reddy MD Work Phone: [facility] 06-16-2022 09:13-0400 Body temperature 97.81 [degF] Memo Treviño PA-C Work Phone: [facility] 06-16-2022 09:13-0400 Body weight 83.28 kg Memo Treviño PA-C Work Phone: [facility] 06-16-2022 09:13-0400 Diastolic blood pressure 58 mm[Hg] Memo Treviño PA-C Work Phone: [facility] 06-16-2022 09:13-0400 Heart rate 96 /min Memo Treviño PA-C Work Phone: [facility] 06-16-2022 09:13-0400 Respiratory rate 6 /min Memo Treviño PA-C Work Phone: [facility] 06-16-2022 09:13-0400 SaO2% (BldA) [Mass fraction] 98 % Memo Treviño PA-C Work Phone: [facility] 06-16-2022 09:13-0400 Systolic blood pressure 147 mm[Hg] Memo Treviño PA-C Work Phone: [facility] 06-09-2022 12:12-0400 Body weight 83.46 kg Ana Older UNIX ARCHITECT.I&C TECH Work Phone: [facility] 06-09-2022 12:12-0400 Diastolic blood pressure 84 mm[Hg] Ana Older UNIX ARCHITECT.I&C TECH Work Phone: [facility] 06-09-2022 12:12-0400 Heart rate 84 /min Ana Older UNIX ARCHITECT.I&C TECH Work Phone: [facility] 06-09-2022 12:12-0400 Respiratory rate 16 /min Ana Older UNIX ARCHITECT.I&C TECH Work Phone: [facility] 06-09-2022 12:12-0400 Systolic blood pressure 137 mm[Hg] Ana Older UNIX ARCHITECT.I&C TECH Work Phone: [facility] 06-03-2022 13:50-0400 Body temperature 98.4 [degF] Dr. Ismael Naqvi Work Phone: [facility] 06-03-2022 13:50-0400 Diastolic blood pressure 76 mm[Hg] Dr. Ismael Naqvi Work Phone: [facility] 06-03-2022 13:50-0400 Heart rate 81 /min Dr. Ismael Naqvi Work Phone: [facility] 06-03-2022 13:50-0400 Respiratory rate 16 /min Dr. Ismael Naqvi Work Phone: [facility] 06-03-2022 13:50-0400 SaO2% (BldA) [Mass fraction] 99 % Dr. Ismael Naqvi Work Phone: [facility] 06-03-2022 13:50-0400 Systolic blood pressure 140 mm[Hg] Dr. Ismael Naqvi Work Phone: [facility] 06-03-2022 12:18-0400 Body mass index (BMI) [Ratio] 30.8 kg/m2 Dr. Ismael Naqvi Work Phone: [facility] 06-02-2022 01:50-0400 Body height 165.[address] Ismael Naqvi Work Phone: [facility] 06-02-2022 01:50-0400 Body weight [address] Ismael Naqvi Work Phone: [facility] 06-01-2022 22:17-0400 Body temperature 97.6 [degF] [facility] 06-01-2022 22:17-0400 Diastolic blood pressure 72 mm[Hg] [facility] 06-01-2022 22:17-0400 Heart rate 94 /min [facility] 06-01-2022 22:17-0400 Respiratory rate 28 /min [facility] 06-01-2022 22:17-0400 SaO2% (BldA) [Mass fraction] 97 % [facility] 06-01-2022 22:17-0400 Systolic blood pressure 126 mm[Hg] [facility] 06-01-2022 18:33-0400 Body height 152.4 cm [facility] 06-01-2022 18:33-0400 Body mass index (BMI) [Ratio] 36.6 kg/m2 [facility] 06-01-2022 18:33-0400 Body weight 85.04 kg [facility] 11-03-2021 15:27-0400 Body temperature 96.91 [degF] Elder Reddy MD Work Phone: [facility] 11-03-2021 15:27-0400 Body weight 82.56 kg Elder Reddy MD Work Phone: [facility] 11-03-2021 15:27-0400 Diastolic blood pressure 80 mm[Hg] Elder Reddy MD Work Phone: [facility] 11-03-2021 15:27-0400 Heart rate 80 /min Elder Reddy MD Work Phone: [facility] 11-03-2021 15:27-0400 Respiratory rate 16 /min Elder Reddy MD Work Phone: [facility] 11-03-2021 15:27-0400 Systolic blood pressure 124 mm[Hg] Elder Reddy MD Work Phone: [facility] 07-23-2021 15:11-0400 Body temperature 98.29 [degF] Elder Reddy MD Work Phone: [facility] 07-23-2021 15:11-0400 Body weight 81.19 kg Elder Reddy MD Work Phone: [facility] 07-23-2021 15:11-0400 Diastolic blood pressure 80 mm[Hg] Elder Reddy MD Work Phone: [facility] 07-23-2021 15:11-0400 Heart rate 80 /min Elder Reddy MD Work Phone: [facility] 07-23-2021 15:11-0400 Respiratory rate 16 /min Elder Reddy MD Work Phone: [facility] 07-23-2021 [id number] Systolic blood pressure 122 mm[Hg] Elder Reddy MD Work Phone: [facility] Encounters Encounter Date Encounter Type Care Provider Facility Start: 10-18-2024 Non-patient / Non-visit Santino Perez jo DO -[facility] Start: 10-18-2024 End: 10-18-2024 Admission to same day surgery center Santinoadolfo Marie DO -Endoscopy Work Phone: Start: 10-18-2024 End: 10-18-[address] Angelita Call MD Work Phone: -Endoscopy Start: 09-22-2024 ambulatory Angelita Call Facility: [facility] Start: 08-10-2024 End: 08-10-2024 Patient encounter procedure Jessica RODRIGUEZ -[facility] Work Phone: Start: 08-10-2024 End: 08-10-[address] Angelita Call MD Work Phone: [facility] Work Phone: Start: 08-10-2024 End: 08-10-2024 ambulatory Angelita Call Facility:[facility] Start: 08-01-2024 End: 08-01-[address] Angelita Call MD Work Phone: [facility] Work Phone: Start: 08-01-2024 End: 08-01-2024 Patient encounter procedure Jessica RODRIGUEZ -Nuclear Medicine [facility] Work Phone: Start: 08-01-2024 End: 08-01-2024 ambulatory Angelita Call Facility:[facility] Start: 07-06-2024 End: 07-06-[address] Angelita Call MD Work Phone: [facility] Work Phone: Start: 07-06-2024 End: 07-06-2024 Patient encounter procedure Jessica RODRIGUEZ -Ultrasound, [facility] Work Phone: Start: 07-06-2024 End: 07-06-2024 ambulatory Jessica Worthington Facility:[facility] Start: 07-04-2024 End: 07-04-[address] Angelita Call MD Work Phone: [facility] Work Phone: Start: 07-04-2024 End: 07-04-2024 Patient encounter procedure Jessica RODRIGUEZ -[facility] Work Phone: Start: 07-04-2024 End: 07-04-2024 ambulatory Angelita Call Facility:[facility] Start: 06-07-2024 End: 06-07-[address] Angelita Call MD Work Phone: [facility] Work Phone: Start: 06-07-2024 End: 06-07-2024 Patient encounter procedure Santino Marie DO -[facility] Work Phone: Start: 06-07-2024 End: 06-07-2024 ambulatory Santino Marie Facility:[facility] Start: 05-29-2024 End: 05-29-[address] Angelita Call MD Work Phone: [facility] Work Phone: Start: 05-29-2024 End: 05-29-2024 Patient encounter procedure Santino Marie DO -[facility] Start: 05-29-2024 End: 05-29-2024 Patient encounter procedure Santino Marie DO -[facility] Work Phone: Start: 05-29-2024 End: 05-29-2024 ambulatory Angelita Call Facility:[facility] Start: 05-29-2024 End: 05-29-2024 ambulatory Angelita Miedel Facility:[facility] Start: 04-03-2024 End: 04-03-[address] Angelita Call MD -Laboratory, [facility] Start: 04-03-2024 End: 04-03-2024 ambulatory Angelita Miedel Facility:[facility]: [facility] Start: 03-24-2024 ambulatory [facility] Facility: [facility] Start: 03-21-2024 End: 03-21-[address] Rehana Vega MD -Laboratory, Specimen Work Phone: Start: 03-21-2024 End: [facility] Start: 02-19-2024 End: 02-19-2024 Patient encounter procedure Dr. Angelita Call MD -[facility] Work Phone: Start: 02-19-2024 End: 02-19-2024 ambulatory Angelita Mied Facility:[facility] Start: 12-21-2023 End: 12-21-2023 ambulatory Santino Friend Facility:[facility] Start: 12-16-2023 End: 12-16-2023 ambulatory [facility] Facility:[facility] Start: 12-09-2023 End: 12-09-2023 ambulatory Santino Friend Facility:[facility] Start: 11-25-2023 End: 11-25-2023 ambulatory Santino Friend Facility:[facility] Start: 11-25-2023 End: 11-[facility] Start: 10-28-2023 ambulatory Angelita Miedel Facility: [facility] Start: 09-08-2023 End: 09-08-2023 Subsequent hospital visit by physician [facility] Work Phone: Radiology Comment on above: Injury of right wris t, initial encounter [S69.91XA] Start: 09-08-2023 End: 09-08-2023 ambulatory ANGELITA CALL Facility:[facility] Start: 09-08-2023 End: 09-08-2023 Office outpatient visit 15 minutes Bruce Yu UNIX ARCHITECT.I&C TECH Work Phone: [facility] Comment on above: Injury of right wris t, initial encounter (Primary Dx); Pain of right hand Start: 08-10-2023 Telephone encounter Elder tellez MD Work Phone: [facility] [place] Comment on above: No Show Start: 07-16-2023 Telephone encounter Ana newsome UNIX ARCHITECT.I&C TECH Work Phone: [facility] [place] Comment on above: Results Start: 07-13-2023 End: 07-13-[address] Elder Reddy Work Phone: [facility]-Laboratory, [facility] Start: 07-13-2023 End: 07-13-[address] Elder Reddy Work Phone: [facility] Work Phone: Start: 07-13-2023 End: 07-13-2023 Subsequent hospital visit by physician [facility] Work Phone: Radiology Comment on above: Shortness of breath [R06.02] Start: 07-13-2023 End: 07-13-2023 ambulatory ELDER REDDY Facility:[facility] Start: 07-13-2023 End: 07-13-2023 Patient encounter procedure Ana Browning UNIX ARCHITECT.I&C TECH Work Phone: Internal [facility] [place] Comment on above: Shortness of breath (Primary [...] / Non-visit Dr. Laurita Reddy Work Phone: [facility] Work Phone: Start: 07-08-2023 Non-patient / Non-visit Dr. Laurita Reddy Work Phone: [facility] Work Phone: Start: 07-08-2023 Non-patient / Non-visit Dr. Laurita Reddy Work Phone: [facility] Start: 07-07-2023 Non-patient / Non-visit Dr. Laurita Reddy Work Phone: [facility] Work Phone: Start: 07-07-2023 Non-patient / Non-visit Dr. Laurita Reddy Work Phone: [facility] Start: 07-06-2023 Non-patient / Non-visit Dr. Laurita Reddy Work Phone: [facility] Start: 07-06-2023 Telephone encounter Elder tellez MD Work Phone: [facility] [place] Comment on above: Patient Update Start: 07-06-2023 End: 07-09-2023 Evaluation and management of inpatient [facility] Work Phone: Start: 07-05-2023 Telephone encounter Elder tellez MD Work Phone: [facility] [place] Comment on above: Patient Update Start: 06-29-2023 End: 06-29-2023 Patient encounter procedure Cecilia Powers MD Work Phone: Gastroenterology Comment on above: Cirrhosis of liver w ithout ascites, unspecified hepatic cirrhosis type (HCC) (Primary Dx) Start: 06-29-2023 End: 06-29-2023 ambulatory ELDER REDDY Facility:[facility] Start: 06-21-2023 Admission to [facility] Elder Reddy MD Work Phone: Ambulatory Surgery Comment on above: colorectal cancer sc reening Start: 06-21-2023 ambulatory Elder wilson MD Work Phone: Ambulatory Surgery Start: 05-03-2023 End: 05-03-2023 Patient encounter procedure Pepe MarquesBartolo RECINOS [facility] Comment on above: Cough present for gr eater than 3 weeks (Primary Dx); Viral bronchitis Start: 05-03-2023 End: 05-03-2023 ambulatory ELDER REDDY Facility:[facility] Start: 05-03-2023 End: 05-03-2023 Subsequent hospital visit by physician [facility] [place] Work Phone: Radiology Comment on above: Cough present for gr eater than 3 weeks [R05.8] Start: 04-27-2023 Telephone encounter Elder tellez MD Work Phone: [facility] [place] Comment on above: Results Start: 04-26-2023 End: 04-26-2023 ambulatory ELDER REDDY Facility:[facility] Start: 04-26-2023 End: 04-26-2023 Patient encounter procedure Elder Reddy MD Work Phone: [facility] [place] Comment on above: Flu-like symptoms (P rimary Dx); Controlled type 2 diabetes mellitus without complication, without long-term current use of insulin (HCC); Primary hypertension; Pure hypercholesterolemia; Thrombocytopenia (HCC) Start: 04-22-2023 Telephone encounter Elder tellez MD Work Phone: [facility] [place] Comment on above: Forms ([employer] dental form) Start: 04-12-2023 End: 04-12-2023 ambulatory ELDER REDDY Facility:[facility] Start: 04-05-2023 End: 04-05-2023 ambulatory ELDER REDDY Facility:[facility] Start: 03-23-2023 End: 03-23-2023 ambulatory ELDER REDDY Facility:[facility] Start: 03-13-2023 Telephone encounter Ana M Hers hberger UNIX ARCHITECT.I&C TECH Work Phone: [facility] Start: 03-06-2023 End: 03-06-2023 Subsequent hospital visit by physician [facility] [place] Work Phone: Radiology Comment on above: Acute cough [R05.1] Start: 03-06-2023 End: 03-06-2023 ambulatory ELDER REDDY Facility:[facility] Start: 02-23-2023 End: 02-23-2023 ambulatory ANA BROWNING Facility:[facility] Start: 02-23-2023 End: 02-23-2023 Patient encounter procedure Ana Browning UNIX ARCHITECT.I&C TECH Work Phone: Internal Medicine [place] Comment on above: Eye muscle twitches (Primary Dx) Start: 11-30-2022 End: 11-30-2022 ambulatory ARIE GAYTAN Facility:[facility] Start: 11-30-2022 End: 11-30-2022 Patient encounter procedure Arie Gaytan AUD Work Phone: Audiology Comment on above: 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); Pulsatile tinnitus, right ear Start: 11-19-2022 End: 11-19-2022 ambulatory ELDER REDDY Facility:[facility] Start: 11-17-2022 Refill Elder wilson MD Work Phone: [facility] [place] Comment on above: Refill Request Start: 11-09-2022 End: 11-09-2022 ambulatory ELDER REDDY Facility:[facility] Start: 11-09-2022 End: 11-09-2022 Subsequent hospital visit by physician [facility] Work Phone: Radiology Comment on above: Screening for osteop orosis [Z13.820] Start: 10-20-2022 End: 10-20-2022 Patient encounter procedure Ana Mccarty UNIX ARCHITECT.I&C TECH Work Phone: [facility] [place] Comment on above: Primary hypertension (Primary Dx); Thrombocytopenia (HCC); Abnormal liver enzymes; Pure hypercholesterolemia; Controlled type 2 diabetes mellitus without complication, without long-term current use of insulin (HCC); Screening for osteoporosis; Asymptomatic menopause Start: 10-20-2022 End: 10-20-2022 ambulatory ANA BROWNING Facility:[facility] Start: 10-07-2022 End: 10-07-2022 ambulatory ELDER Reed SIMEON Facility:[facility] Start: 10-06-2022 End: 10-06-2022 ambulatory BRENDA SIMEON Facility:[facility] Start: 09-30-2022 End: 09-30-2022 ambulatory ELDER REYNOLDSQUEZ Facility:[facility] Start: 09-30-2022 End: 09-30-2022 Patient encounter procedure Brittani Santana MD Work Phone: Otolaryngology Comment on above: Right-sided tinnitus (Primary Dx); Facial paralysis Start: 09-28-2022 End: 09-28-2022 ambulatory ELDER REYNOLDSQUEZ Facility:[facility] Start: 09-28-2022 End: 09-28-2022 Patient encounter procedure Katherine Goldstein OD Work Phone: Ophthalmology Comment on above: Dover's palsy (Primar y Dx); Type 2 diabetes mellitus without retinopathy (HCC); Combined forms of age-related cataract of both eyes; Regular astigmatism of both eyes; Presbyopia Start: 09-21-2022 End: 09-21-2022 ambulatory ELDER Reed REDDY Facility:[facility] Start: 09-21-2022 End: 09-21-2022 Subsequent hospital visit by physician [facility] Work Phone: Radiology Comment on above: Thrombocytopenia (HC C) [D69.6] Start: 09-06-2022 Telephone encounter Kavon ly DO Work Phone: Hematology/Oncology Comment on above: Results (Normal bone marrow) Start: 08-24-2022 ambulatory ROCIO MENDOZA Facility:[facility] Start: 08-17-2022 End: 08-17-[address] Ismael Naqvi Work Phone: [facility] Work Phone: Start: 08-17-2022 End: 08-17-[address] Ismael Naqvi Work Phone: [facility]-Speech Therapy Start: 07-28-2022 Telephone encounter Kavon ly DO Work Phone: Hematology/Oncology Comment on above: Results (CBC platele ts improved) Start: 07-19-2022 Telephone encounter Kavon ly DO Work Phone: Hematology/Oncology Comment on above: Results (Lab work fo r thrombocytopenia) Start: 07-13-2022 Telephone encounter Kavon ly DO Work Phone: Hematology/Oncology Comment on above: AVS 07/13/22 Start: 07-13-2022 End: 07-13-2022 ambulatory Kavon Lopes DO Work Phone: Hematology/Oncology Comment on above: Thrombocytopenia (HC C) (Primary Dx) Start: 07-13-2022 End: 07-13-2022 Patient encounter procedure Kavon Lopes DO Work Phone: [facility] Start: 06-24-2022 Telephone encounter Kavon ly DO Work Phone: Hematology/Oncology Comment on above: New Patient Start: 06-23-2022 End: 06-23-2022 Patient encounter procedure Elder Reddy MD Work Phone: [facility] [place] Comment on above: Thrombocytopenia (HC C) (Primary Dx); 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); Type 2 diabetes mellitus without retinopathy (HCC); Combined forms of age-related cataract of both eyes; Presbyopia Start: 06-17-2022 Telephone encounter Memo Treviño PA-C Work Phone: Neurology Comment on above: Environmental Coordinator - O ther; Patient Update; Results Start: 06-16-2022 End: 06-16-2022 Patient encounter procedure Memo Treviño PA-C Work Phone: Neurology Comment on above: Dover's palsy (Primar y Dx); Right ear pain Start: 06-09-2022 End: 06-09-2022 Patient encounter procedure Ana Older UNIX ARCHITECT.I&C TECH Work Phone: [facility] [place] Comment on above: Dover's palsy (Primar y Dx); Hyperglycemia Start: 06-03-2022 Non-patient / Non-visit Dr. Dian Naqvi Work Phone: [facility] Start: 06-02-2022 Non-patient / Non-visit Dr. Dian Naqvi Work Phone: [facility] Start: 06-02-2022 Non-patient / Non-visit Dr. Dian Naqvi Work Phone: [facility] Start: 06-01-2022 Non-patient / Non-visit Dr. Dian Naqvi Work Phone: [facility] Start: 06-01-2022 End: 06-03-2022 Evaluation and management of inpatient [facility] Care Unit Start: 06-01-2022 End: 06-03-[address] Ismael Naqvi Work Phone: [facility] Work Phone: Start: 04-20-2022 Telephone encounter Ana Older UNIX ARCHITECT.I&C TECH Work Phone: [facility] Comment on above: Results Start: 04-08-2022 ambulatory Elder wilson MD Work Phone: Internal Medicine [facility] Start: 03-17-2022 Refill Elder wilson MD Work Phone: [facility] [place] Comment on above: Refill Request Start: 02-17-2022 Telephone encounter Elder tellez MD Work Phone: [facility] [place] Comment on above: Medication Request Start: 11-03-2021 End: 11-03-2021 Patient encounter procedure Elder Reddy MD Work Phone: [facility] [place] Comment on above: Controlled type 2 di abetes mellitus without complication, without long-term current use of insulin (HCC) (Primary Dx); Fatty liver; Primary hypertension; Obesity, Class II, BMI 35-39.9 Start: 09-24-2021 End: 09-24-2021 Patient encounter procedure Guerrero Rolon [facility] Work Phone: [facility] Comment on [...] End: 09-02-2021 Subsequent hospital visit by physician [facility] Work Phone: Radiology Comment on above: Abnormal liver enzym es [R74.8] Start: 08-12-2021 Telephone encounter Elder tellez MD Work Phone: [facility] Comment on above: Appointment Start: 08-06-2021 [...] Elder wilson MD Work Phone: [facility] [place] Start: 02-02-2020 End: 02-02-2020 Patient encounter procedure CECILIA ALLEN [facility] Start: 11-10-2019 End: 11-10-2019 Patient encounter procedure NATTY KIMBALL [facility] Start: 11-08-2018 Patient encounter procedure SYLVESTER RUVALCABA Facility:[facility] Procedures Date Procedure Procedure Detail Performing Clinician Start: 10-18-[address] Angelita Call MD Work Phone: Start: 08-10-2024 Hepatitis A virus antibody, total [...] HAVtotal antibody results to IgM (e.g., panel #[id number] HAVAntibody w/ Rfx).Performed at: [address] [id number] Director: Aaron Ackerman PhD, Phone: [phone] Start: 08-01-[address] Angelita Call MD Work Phone: Start: 07-06-[address] Angelita isaac MD Work Phone: Start: 07-04-2024 Plain X-ray abdomen Dr. Angelita Call MD Work Phone: Start: 06-07-[address] Angelita isaac MD Work Phone: Start: 05-29-2024 Cjeww-2-Gkjyrwofzoy measurement Dr. Belinda Call MD Work Phone: Comment on above: [facility] Electrochemiluminescen ce Immunoassay(ECLIA)Values obtained with different assay methods or kits cannotbe used interchangeably. Results cannot be interpreted asabsolute evidence of the presence or absence of malignantdisease.This test is not interpretable in females.Performed at: [address] [id number] Director: Aaron Ackerman PhD, Phone: [phone] Start: 02-19-[address] MRI of lumbar spine Dr[address] Angelita Call MD Work Phone: Start: 09-08-2023 Radex hand minimum 3 views Bruce patiño UNIX ARCHITECT.I&C TECH Work Phone: Start: 07-13-2023 Radiologic exam chest 2 views Ana Hammonds Speedy newsome UNIX ARCHITECT.I&C TECH Work Phone: Start: 07-07-[address] Elder [...] Radiologic exam chest 2 views Pepe Andrews UNIX ARCHITECT.I&C TECH Work Phone: Start: 03-06-2023 Radiologic exam chest 2 views Igor Chaudhary MD Work Phone: Start: 11-30-2022 HEARING TEST/AUDIOGRAM Arie NI Work Phone: Start: 11-09-2022 Dxa bone density study 1/> sites axial skel Ana Older UNIX ARCHITECT.I&C TECH Work Phone: Start: 09-21-2022 Us abdominal real [...] Treatment Date Care Activity Detail Author Start: 10-18-2024 Patient discharge [facility] Start: 07-12-2024 Annual PCP Team Chronic Disease Visit Annual PCP Team Chronic Disease Visit [facility] Start: 04-26-2024 Annual PCP Team Chronic Disease Visit Annual PCP Team Chronic Disease Visit [facility] Start: 03-23-2024 Annual PCP Team Chronic Disease Visit Annual PCP Team Chronic Disease Visit [facility] Start: 03-23-2024 BP Controlled (<130/80) BP Controlled (<130/80) [facility] Start: 03-23-2024 Hepatitis B screening Urine Albumin:Creatinine Ratio [facility] Start: 03-23-2024 Hepatitis B surface antibody level LDL Cholesterol [facility] Start: 03-23-2024 RSV Vaccine (1 - 1-dose 60+ series) RSV Vaccine (1 - 1-dose 60+ series) [facility] Comment on above: Postponed from 2017 (Declined at t his time) Start: 02-24-2024 Annual PCP Team Chronic Disease Visit Annual PCP Team Chronic Disease Visit [facility] Start: 12-29-2023 End: 07-28-2024 US Abdomen RUQ US ABD RIGHT UPPER QUADRANT Radiology Routine Cirrhosis of liver without ascites, unspecified hepatic cirrhosis type (HCC) Expected: 12/29/2023, Expires: 07/28/2024 [facility] Work Phone: Comment on above: Expected: 12/29/2023, Expires: Start: 12-29-2023 End: 12-29-2023 Patient encounter procedure 12/29/2023 10:05 AM EDT Office Visit Gastroenterology [address] [address] Cecilia Powers MD [address] [place] [address] 6 months f/u Gastroenterology Comment on above: 6 months f/u Start: 11-20-2023 Hepatitis B surface antibody level LDL Cholesterol [facility] Start: 11-14-2023 Covid-19 Vaccine () Covid-19 Vaccine () [facility] Start: 11-14-[address] [facility] Start: 10-21-2023 ANNUAL PCP TEAM CHRONIC DISEASE VISIT ANNUAL PCP TEAM CHRONIC DISEASE VISIT [facility] Start: 10-21-2023 BP CONTROLLED (<130/80) BP CONTROLLED (<130/80) [facility] Start: 10-21-2023 COVID-19 VACCINE (5 - Additional dose for Cynthia series) COVID-19 VACCINE (5 - Additional dose for Cynthia series) [facility] Comment on above: Postponed from 2022 (Declined at t his time) Start: 10-04-2023 End: 10-04-2023 Patient encounter procedure 10/04/2023 9:00 AM EDT Office Visit [facility] [address] [address] Katherine Goldstein, OD [address] [address] Diabetic eye exam Ophthalmology Comment on above: Diabetic eye exam Start: 09-22-2023 End: 09-22-2023 Patient encounter procedure 09/22/2023 1:00 PM EDT Office Visit [facility] [place] [address] [facility] [address] Ramy Anaya, V, DO [address] [place] [address] ec follow up [facility] [place] Comment on above: ec follow up Start: 09-21-2023 Hemoglobin A1c measurement HbA1C [facility] Start: 09-12-2023 Influenza vaccination Influenza Vaccine (#1) [place] [facility] Comment on above: Postponed from 11/13/2022 (Declined at t his time) Start: 08-10-2023 End: 08-10-2023 Patient encounter procedure 08/10/2023 9:00 AM EDT Office Visit [facility] [place] [address] [place] [address] Elder Reddy MD [address] [place], [place] [id number] medi well V / due for colonoscopy [facility] [place] Comment on above: medi well V / due for colonoscopy Start: 07-29-2023 BP CONTROLLED (<130/80) BP CONTROLLED (<130/80) [facility] Start: 07-25-2023 End: 10-24-2023 CBC panel - Blood by Automated count CBC Lab Routine Thrombocytopenia (HCC) Expected: 07/25/2023, Expires: 10/24/2023 [facility] Work Phone: Comment on above: Expected: 07/25/2023, Expires: 4 Start: 07-25-2023 End: 10-24-2023 Comprehensive metabolic 2000 panel - Serum or Plasma COMP METABOLIC PANEL Lab Routine Pure hypercholesterolemia Expected: 07/25/2023, Expires: 10/24/2023 [facility] Work Phone: Comment on above: Expected: 07/25/2023, Expires: 4 Start: 07-25-2023 End: 10-24-2023 Hemoglobin A1c in Blood HGB A1C Lab Routine Controlled type 2 diabetes mellitus without complication, without long-term current use of insulin (HCC) Expected: 07/25/2023, Expires: 10/24/2023 [facility] Work Phone: Comment on above: Expected: 07/25/2023, Expires: 4 Start: 07-25-2023 End: 10-24-2023 Lipid 1996 panel - Serum or Plasma LIPID PANEL BASIC Lab Routine Pure hypercholesterolemia Expected: 07/25/2023, Expires: 10/24/2023 [facility] Work Phone: Comment on above: Expected: 07/25/2023, Expires: Start: 07-15-2023 3 comp foot exam completed DIABETIC FOOT EXAM [facility] Start: 07-15-2023 ANNUAL PCP TEAM CHRONIC DISEASE VISIT ANNUAL PCP TEAM CHRONIC DISEASE VISIT [facility] Start: 07-15-2023 Diabetic foot examination Diabetic Foot Exam [facility] Start: 07-15-2023 SHINGRIX VACCINE (1 of 2) SHINGRIX VACCINE (1 of 2) [facility] Comment on above: Postponed from 09/27/2007 (Declined at t his time) Start: 07-13-2023 End: 10-12-2023 Basic metabolic 2000 panel - Serum or Plasma BASIC METABOLIC PANEL Lab Routine Shortness of breath VIKA (acute kidney injury) (HCC) Expected: 07/13/2023, Expires: 10/12/2023 [facility] Comment on above: Expected: 07/13/2023, Expires: Start: 07-13-2023 End: 10-12-2023 CBC panel - Blood by Automated count COMPLETE BLOOD COUNT Lab STAT Shortness of breath Expected: 07/13/2023, Expires: 10/12/2023 [facility] Comment on above: Expected: 07/13/2023, Expires: Start: 07-13-2023 End: 10-12-2023 Natriuretic peptide.B prohormone N-Terminal [Mass/volume] in Serum or Plasma NT PRO BNP Lab Routine Shortness of breath Generalized edema Expected: 07/13/2023, Expires: 10/12/2023 [facility] Work Phone: Comment on above: Expected: 07/13/2023, Expires: 4 Start: 07-09-2023 Patient discharge [facility] Start: 07-08-2023 Provision of activity privileges [facility] Start: 07-07-2023 Serum immunofixation [facility] Start: 07-07-2023 [facility] Start: 07-07-2023 Referral to psychologist engineering [facility] Start: 07-06-2023 Referral to gastroenterology service [facility] Start: 07-06-2023 End: 07-06-2023 Patient encounter procedure 07/06/2023 9:20 AM EDT Office Visit [facility] [place] [address] [place] [address] Ana Browning, UNIX ARCHITECT.I&C TECH [address] [place] [address] Bleeding in Mouth from where molars were taken out; Taken out 06/30/2023 [facility] [place] Comment on above: Bleeding in Mouth from where molars were taken out; Taken out 06/30/2023 Start: 07-06-2023 Application of intermittent pneumatic compression device [facility] Start: 07-06-2023 Following clinical pathway protocol [facility] Start: 07-06-2023 End: 07-06-2023 [facility] Start: 07-06-2023 Aspiration precautions [facility] Start: 07-06-2023 Assessment of risk of venous thromboembolism [facility] Start: 07-06-2023 Documentation procedure [facility] Start: 07-06-2023 Enteric precautions [facility] Start: 07-06-2023 Incentive spirometry [facility] Start: 07-06-2023 Insertion of catheter into peripheral vein [facility] Start: 07-06-2023 Measuring intake and output [facility] Start: 07-06-2023 Oxygen therapy [facility] Start: 07-06-2023 Providing care according to standard [facility] Start: 07-06-2023 Provision of activity privileges [facility] Start: 07-06-2023 Referral to gastroenterology service [facility] Start: 07-06-2023 Referral to psychologist engineering [facility] Start: 07-06-2023 Referral to service [facility] Start: 07-06-2023 Clostridioides difficile DNA [Presence] in Unspecified specimen by CHIVO with probe detection [facility] Start: 07-06-2023 Gastrointestinal pathogens panel - Stool by CHIVO with probe detection [facility] Start: 07-06-2023 Lactoferrin [Presence] in Stool by Immunoassay [facility] Start: 07-06-2023 Verification routine [facility] Start: 07-06-2023 Admission procedure [facility] Start: 07-06-2023 Patient referral to dietitian [facility] Start: 06-24-2023 ANNUAL PCP TEAM CHRONIC DISEASE VISIT ANNUAL PCP TEAM CHRONIC DISEASE VISIT [facility] Start: 06-24-2023 Glaucoma screening Dilated Retinal Exam [facility] Start: 06-24-2023 Hepatitis C antibody, confirmatory test DILATED RETINAL EXAM [facility] Start: 06-10-2023 ANNUAL PCP TEAM CHRONIC DISEASE VISIT ANNUAL PCP TEAM CHRONIC DISEASE VISIT [facility] Start: 05-20-2023 Hemoglobin A1c measurement HbA1C [facility] Start: 05-20-2023 Hemoglobin A1c/Hemoglobin.total in Blood HbA1C [facility] Start: 04-15-2023 COLORECTAL CANCER SCREENING COLORECTAL CANCER SCREENING [facility] Comment on above: Postponed from 2002 (Declined at t his time) Start: 04-15-2023 Hepatitis B screening URINE ALBUMIN:CREATININE RATIO [facility] Start: 04-15-2023 Screening for malignant neoplasm of colon Colorectal Cancer Screening [facility] Comment on above: Postponed from 2002 (Declined at t his time) Start: 04-14-2023 ANNUAL PCP TEAM CHRONIC DISEASE VISIT ANNUAL PCP TEAM CHRONIC DISEASE VISIT [facility] Start: 04-14-[address] [facility] Comment on above: Postponed from 1976 (Declined at t his time) Start: 03-15-2023 Advance Directive Discussion Advance Directive Discussion [facility] Start: 03-15-2023 Behavioral Health Screening Behavioral Health Screening [facility] Start: 03-15-2023 Depression Assessment Depression Assessment [facility] Start: 11-19-2022 Hepatitis B surface antibody level LDL CHOLESTEROL [facility] Start: 11-13-2022 Covid-19 Vaccine ( season) Covid-19 Vaccine () [facility] Start: 11-13-[address] [facility] Start: 11-03-2022 ANNUAL PCP TEAM CHRONIC DISEASE VISIT ANNUAL PCP TEAM CHRONIC DISEASE VISIT [facility] Start: 10-20-2022 End: 12-20-2022 Hemoglobin A1c in Blood HGB A1C Lab Routine Controlled type 2 diabetes mellitus without complication, without long-term current use of insulin (HCC) Expected: 10/20/2022, Expires: 12/20/2022 [facility] Work Phone: Comment on above: Expected: 10/20/2022, Expires: Start: 10-20-2022 End: 12-20-2022 Lipid 1996 panel - Serum or Plasma LIPID PANEL BASIC Lab Routine Pure hypercholesterolemia Expected: 10/20/2022, Expires: 12/20/2022 [facility] Work Phone: Comment on above: Expected: 10/20/2022, Expires: Start: 10-13-2022 Hemoglobin A1c/Hemoglobin.total in Blood HBA1C [facility] Start: 10-13-2022 HPV TEST[address] HPV TESTING [facility] Comment on above: Postponed from 09/27/1987 (Declined at t his time) Start: 10-13-2022 PAP TESTING PAP TESTING [facility] Comment on above: Postponed from 1978 (Declined at t his time) Start: 2022 ADVANCE DIRECTIVE DISCUSSION ADVANCE DIRECTIVE DISCUSSION [facility] Start: 2022 BONE DENSITY BONE DENSITY [facility] Start: 2022 COVID-19 VACCINE (5 - Additional dose for Cynthia series) COVID-19 VACCINE (5 - Additional dose for Cynthia series) [facility] Start: 09-11-2022 Influenza vaccination INFLUENZA (#1) [facility] Comment on above: Postponed from 11/13/2021 (Declined at t his time) Start: 07-28-2022 Hepatitis B surface antibody level LDL CHOLESTEROL [facility] Start: 07-28-2022 Hepatitis C antibody, confirmatory test DILATED RETINAL EXAM [facility] Start: 07-23-2022 3 comp foot exam completed DIABETIC FOOT EXAM [facility] Start: 07-23-2022 ANNUAL PCP TEAM CHRONIC DISEASE VISIT ANNUAL PCP TEAM CHRONIC DISEASE VISIT [facility] Start: 07-13-2022 End: 09-12-2022 Chronic hepatitis differentiation between hepatitis B and C virus panel - Serum or Plasma [facility] Work Phone: Comment on above: Expected: 07/13/2022, Expires: 3 Start: 07-13-2022 End: 09-12-2022 Cobalamin (Vitamin B12) [Mass/volume] in Serum or Plasma [facility] Work Phone: Comment on above: Expected: 07/13/2022, Expires: 3 Start: 07-13-2022 End: 09-12-2022 Ferritin [Mass/volume] in Serum or Plasma [facility] Work Phone: Comment on above: Expected: 07/13/2022, Expires: 3 Start: 07-13-2022 End: 09-12-2022 Folate [Mass/volume] in Serum or Plasma [facility] Work Phone: Comment on above: Expected: 07/13/2022, Expires: 3 Start: 07-13-2022 End: 09-12-2022 Helicobacter pylori IgG Ab [Presence] in Serum or Plasma by Immunoassay [facility] Work Phone: Comment on above: Expected: 07/13/2022, Expires: 3 Start: 07-13-2022 End: 09-12-2022 HIV 1+2 Ab [Presence] in Serum or Plasma by Immunoassay [facility] Work Phone: Comment on above: Expected: 07/13/2022, Expires: 3 Start: 07-13-2022 End: 09-12-2022 Iron and Iron binding capacity panel - Serum or Plasma [facility] Work Phone: Comment on above: Expected: 07/13/2022, Expires: 3 Start: 07-13-2022 End: 09-12-[address] [facility] Work Phone: Comment on above: Expected: 07/13/2022, Expires: 3 Start: 06-03-2022 Patient discharge [facility] Start: 06-02-2022 Speech therapy assessment [facility] Start: 06-02-2022 Chart related administrative procedure [facility] Start: 06-02-2022 Application of intermittent pneumatic compression device [facility] Start: 06-02-2022 Following clinical pathway protocol [facility] Start: 06-01-2022 Assessment of risk of venous thromboembolism [facility] Start: 06-01-2022 Cardiac monitoring [facility] Start: 06-01-2022 Care regimes management [facility] Start: 06-01-2022 Catheterization of vein [facility] Start: 06-01-2022 Elevation of head of bed [facility] Start: 06-01-2022 Exercises [facility] Start: 06-01-2022 Implementation of planned interventions [facility] Start: 06-01-2022 Insertion of catheter into peripheral vein [facility] Start: 06-01-2022 Measuring intake and output [facility] Start: 06-01-2022 Notification of physician [facility] Start: 06-01-2022 Oxygen therapy [facility] Start: 06-01-2022 Providing care according to standard [facility] Start: 06-01-2022 Provision of activity privileges [facility] Start: 06-01-2022 Referral to occupational therapist [facility] Start: 06-01-2022 Referral to service [facility] Start: 06-01-2022 Speech therapy assessment [facility] Start: 06-01-2022 Tobacco use cessation education [facility] Start: 06-01-2022 [facility] Start: 06-01-2022 Verification routine [facility] Start: 06-01-2022 Admission procedure [facility] Start: 06-01-2022 Oxygen therapy [facility] Start: 06-01-2022 [facility] Start: 06-01-2022 End: 08-01-2022 Thyrotropin [Units/volume] in Serum or Plasma TSH BLD Lab Routine Abnormal TSH Expected: 06/01/2022 (Approximate), Expires: 08/01/2022 [facility] Work Phone: Comment on above: Expected: 06/01/2022 (Approximate), Expi res: 08/01/2022 Start: 06-01-2022 End: 08-01-2022 Thyroxine (T4) free [Mass/volume] in Serum or Plasma T4 FREE/FREE THYROX Lab Routine Abnormal TSH Expected: 06/01/2022 (Approximate), Expires: 08/01/2022 [facility] Work Phone: Comment on above: Expected: 06/01/2022 (Approximate), Expi res: 08/01/2022 Start: 06-01-2022 End: 08-01-2022 Triiodothyronine (T3) [Mass/volume] in Serum or Plasma T3 BLD Lab Routine Abnormal TSH Expected: 06/01/2022 (Approximate), Expires: 08/01/2022 [facility] Work Phone: Comment on above: Expected: 06/01/2022 (Approximate), Expi res: 08/01/2022 Start: 05-19-2022 Hemoglobin A1c/Hemoglobin.total in Blood HBA1C [facility] Start: 04-28-2022 Adult depression screening assessment DEPRESSION SCREENING [facility] Start: 04-28-2022 ANNUAL PCP TEAM CHRONIC DISEASE VISIT ANNUAL PCP TEAM CHRONIC DISEASE VISIT [facility] Start: 04-28-2022 HEPATITIS C SCREENING HEPATITIS C SCREENING [facility] Comment on above: Postponed from 09/27/1975 (Declined at t his time) Start: 04-28-[address] HIV S[address] [facility] Comment on above: Postponed from 09/27/1975 (Declined at t his time) Start: 04-28-2022 SHINGRIX VACCINE (1 of 2) SHINGRIX VACCINE (1 of 2) [facility] Comment on above: Postponed from 09/27/2007 (Declined at t his time) Start: 03-15-2022 DEPRESSION ASSESSMENT DEPRESSION ASSESSMENT [facility] Start: 11-13-[address] [facility] Start: 11-04-2021 End: 01-04-2022 Basic metabolic 2000 panel - Serum or Plasma BASIC METABOLIC PNL Lab Routine Controlled type 2 diabetes mellitus without complication, without long-term current use of insulin (HCC) Expected: 11/04/2021, Expires: 01/04/2022 [facility] Work Phone: Comment on above: Expected: 11/04/2021, Expires: Start: 11-04-2021 End: 01-04-2022 Hemoglobin A1c in Blood HGB A1C Lab Routine Controlled type 2 diabetes mellitus without complication, without long-term current use of insulin (HCC) Expected: 11/04/2021, Expires: 01/04/2022 [facility] Work Phone: Comment on above: Expected: 11/04/2021, Expires: 2 Start: 11-04-2021 End: 01-04-2022 Lipid 1996 panel - Serum or Plasma LIPID PANEL BASIC Lab Routine Controlled type 2 diabetes mellitus without complication, without long-term current use of insulin (HCC) Expected: 11/04/2021, Expires: 01/04/2022 [facility] Work Phone: Comment on above: Expected: 11/04/2021, Expires: 2 Start: 10-28-2021 Hemoglobin A1c/Hemoglobin.total in Blood HBA1C [facility] Start: 09-16-2021 End: 11-16-2021 CBC W Auto Differential panel - Blood CBC + DIFF Lab Routine Thrombocytopenia (HCC) Expected: 09/16/2021, Expires: 11/16/2021 [facility] Work Phone: Comment on above: Expected: 09/16/2021, Expires: 2 Start: 09-16-2021 End: 11-16-2021 Chronic hepatitis differentiation between hepatitis B and C virus panel - Serum or Plasma HEP REMOTE PANEL BL Lab Routine Thrombocytopenia (HCC) Expected: 09/16/2021, Expires: 11/16/2021 [facility] Work Phone: Comment on above: Expected: 09/16/2021, Expires: 2 Start: 09-16-2021 End: 11-16-2021 Hepatic function 2000 panel - Serum or Plasma HEPATIC FUNCTION PNL Lab Routine Thrombocytopenia (HCC) Expected: 09/16/2021, Expires: 11/16/2021 [facility] Work Phone: Comment on above: Expected: 09/16/2021, Expires: 2 Start: 09-16-2021 End: 09-04-2022 Thyrotropin [Units/volume] in Serum or Plasma TSH BLD Lab Routine Elevated TSH Expected: 09/16/2021, Expires: 11/16/2021 [facility] Work Phone: Comment on above: Expected: 09/16/2021, Expires: 2 Start: 08-25-2021 COVID-19 VACCINE (4 - Booster for Cynthia series) COVID-19 VACCINE (4 - Booster for Cynthia series) [facility] Start: 07-23-2021 End: 09-22-2021 ALBUMIN/CREAT RATIO RND UR ALBUMIN/CREAT RATIO RND UR Lab Routine Controlled type 2 diabetes mellitus without complication, without long-term current use of insulin ([facility]) Expected: 07/23/2021, Expires: 09/22/2021 [facility] Work Phone: Comment on above: Expected: 07/23/2021, Expires: 2 Start: 07-23-2021 End: 09-22-2021 CBC panel - Blood by Automated count CBC Lab Routine Primary hypertension Expected: 07/23/2021, Expires: 09/22/2021 [facility] Work Phone: Comment on above: Expected: 07/23/2021, Expires: 2 Start: 07-23-2021 End: 09-22-2021 Comprehensive metabolic 2000 panel - Serum or Plasma COMP METABOLIC PANEL Lab Routine Controlled type 2 diabetes mellitus without complication, without long-term current use of insulin (HCC) Expected: 07/23/2021, Expires: 09/22/2021 [facility] Work Phone: Comment on above: Expected: 07/23/2021, Expires: 2 Start: 07-23-2021 End: 09-22-2021 Hemoglobin A1c/Hemoglobin.total in Blood HGB A1C Lab Routine Controlled type 2 diabetes mellitus without complication, without long-term current use of insulin (HCC) Expected: 07/23/2021, Expires: 09/22/2021 [facility] Work Phone: Comment on above: Expected: 07/23/2021, Expires: 2 Start: 07-23-2021 End: 09-22-2021 LIPID PANEL BASIC LIPID PANEL BASIC Lab Routine Controlled type 2 diabetes mellitus without complication, without long-term current use of insulin (HCC) Expected: 07/23/2021, Expires: 09/22/2021 [facility] Work Phone: Comment on above: Expected: 07/23/2021, Expires: 2 Start: 07-23-2021 End: 09-22-2021 Thyrotropin [Units/volume] in Serum or Plasma TSH BLD Lab Routine Obesity, Class II, BMI 35-39.9 Expected: 07/23/2021, Expires: 09/22/2021 [facility] Work Phone: Comment on above: Expected: 07/23/2021, Expires: 2 Start: 07-08-2021 End: 09-07-2021 Basic metabolic 2000 panel - Serum or Plasma BASIC METABOLIC PNL Lab Routine Controlled type 2 diabetes mellitus without complication, without long-term current use of insulin (HCC) Expected: 07/08/2021, Expires: 09/07/2021 [facility] Work Phone: Comment on above: Expected: 07/08/2021, Expires: 2 Start: 07-08-2021 End: 09-07-2021 Hemoglobin A1c/Hemoglobin.total in Blood HGB A1C Lab Routine Controlled type 2 diabetes mellitus without complication, without long-term current use of insulin (HCC) Expected: 07/08/2021, Expires: 09/07/2021 [facility] Work Phone: Comment on above: Expected: 07/08/2021, Expires: 2 Start: 07-08-2021 End: 09-07-2021 LIPID PANEL BASIC LIPID PANEL BASIC Lab Routine Controlled type 2 diabetes mellitus without complication, without long-term current use of insulin (HCC) Expected: 07/08/2021, Expires: 09/07/2021 [facility] Work Phone: Comment on above: Expected: 07/08/2021, Expires: 2 Start: 07-08-2021 End: 09-07-2021 SCHEDULE LAB TESTING SCHEDULE LAB TESTING Lab Routine Expected: 07/08/2021, Expires: 09/07/2021 [facility] Work Phone: Comment on above: Expected: 07/08/2021, Expires: 2 Start: 03-15-2021 DEPRESSION ASSESSMENT DEPRESSION ASSESSMENT [facility] Start: 2017 Hepatitis B Vaccine (1 of 3 - Risk 3-dose series) Hepatitis B Vaccine (1 of 3 - Risk 3-dose series) [facility] Start: 2017 RSV Vaccine (1 - 1-dose 60+ series) RSV Vaccine (1 - 1-dose 60+ series) [facility] Start: 09-27-2007 SHINGRIX VACCINE (1 of 2) SHINGRIX VACCINE (1 of 2) [facility] Start: 2002 COLOGUARD (FIT-DNA) COLOGUARD (FIT-DNA) [facility] Start: [address] [facility] Start: 2002 COLORECTAL CANCER SCREENING COLORECTAL CANCER SCREENING [facility] Start: [address] [facility] Start: 2002 FECAL OCCULT BLOOD FECAL OCCULT BLOOD [facility] Start: 2002 Screening for malignant neoplasm of colon [facility] Start: [address] [facility] Start: [address] [facility] Start: 1997 Screening for malignant neoplasm of breast Mammogram Screening [facility] Start: 09-27-1987 HPV TEST[address] HPV TESTING [facility] Start: 1978 PAP TESTING PAP TESTING [facility] Start: 1976 Hepatitis A Vaccine (1 of 2 - Risk 2-dose series) Hepatitis A Vaccine (1 of 2 - Risk 2-dose series) [facility] Start: [address] [facility] Start: 09-27-1975 Anxiety Screening Anxiety Screening [facility] Start: 09-27-1975 BP CONTROLLED (<130/80) BP CONTROLLED (<130/80) [facility] Start: 09-27-1975 Depression Screening Depression Screening [facility] Start: 09-27-1975 Hepatitis B surface antibody level LDL CHOLESTEROL [facility] Start: 09-27-1975 HEPATITIS C SCREENING HEPATITIS C SCREENING [facility] Start: 09-27-1975 HIV [address]CRE[address] HIV SCREENING [facility] Start: 1973 ONE PNEUMOVAX PRIOR TO AGE 67 ONE PNEUMOVAX PRIOR TO AGE 67 [facility] Start: 09-27-1967 3 comp foot exam completed DIABETIC FOOT EXAM [facility] Start: 09-27-1967 Hepatitis B screening URINE ALBUMIN:CREATININE RATIO [facility] Start: 09-27-1967 Hepatitis C antibody, confirmatory test DILATED RETINAL EXAM [facility] Start: 09-27-1963 PNEUMOCOCCAL (1 - PCV) PNEUMOCOCCAL (1 - PCV) [facility] Start: 1962 Hemoglobin A1c/Hemoglobin.total in Blood HBA1C [facility] Alanine aminotransferase [Enzymatic activity/volume] in Serum or Plasma [facility] Albumin [Mass/volume ] in Serum or Plasma [facility] Albumin [Moles/volum e] in Serum or Plasma [facility] Albumin/Globulin ratio [facility] Alkaline phosphatase [Enzymatic activity/volume] in Serum or Plasma [facility] [id number]. chapis or marker [Units/volume] in Serum or Plasma [facility] Anion gap measurement [facility] Aspartate aminotransferase [Enzymatic activity/volume] in Serum or Plasma [facility] Basic metabolic 2007 panel with ionized calcium - Serum or Plasma [facility] Basic metabolic 2008 panel with ionized calcium - Serum or Plasma [facility] Bilirubin, total measurement [facility] BUN/Creatinine ratio [facility] Calcium [Mass/volume ] in Serum or Plasma [facility] Carbon dioxide, tota l [Moles/volume] in Serum or Plasma [facility] CBC W Auto Different ial panel - Blood [facility] CBC W Ordered Manual Differential panel - Blood PATHOLOGIST INTERPRETATION WITH CBC AND DIFF Lab Routine Thrombocytopenia (HCC) 07/13/2022 12:26 PM EDT [facility] Work Phone: Ceruloplasmin [Mass/volume] in Serum or Plasma [facility] Chloride [Moles/volu me] in Serum or Plasma [facility] COVID & INFLUENZA A/ B & RSV NAAT, ROUTINE COVID & INFLUENZA A/B & RSV NAAT, ROUTINE Microbiology Routine Flu-like symptoms 04/26/2023 5:31 PM EST [facility] Work Phone: Creatinine [Moles/volume] in Serum or Plasma [facility] Diagnostic bone miko ow biopsies IMAGING GUIDED BIOPSY BONE MARROW (HEMATOLOGY) Radiology Routine Thrombocytopenia (HCC) Ordered: 07/29/2022 [facility] Work Phone: Comment on above: Ordered: 07/29/2022 End: 11-19-2023 DXA-AXIAL SKELETON DXA-AXIAL SKELETON Radiology Routine Screening for osteoporosis Asymptomatic menopause 1 Occurrences starting 10/20/2022 until 11/19/2023 [facility] Work Phone: Comment on above: 1 Occurrences starting 10/20/2022 until 11/19/2023 Electrophoresis: [id number] [facility] Electrophoresis: madalyn ma globulin [facility] Erythrocyte mean corpuscular volume determination [facility] Gamma glutamyl transferase measurement [facility] Globulin measurement [facility] Glucose [Mass/volume ] in Serum or Plasma [facility] HEARING TEST/AUDIOGRAM HEARING T EST/AUDIOGRAM Audiology Routine Right-sided tinnitus Ordered: 09/30/2022 [facility] Work Phone: Comment on above: Ordered: 09/30/2022 Hematocrit [Volume Fraction] of Blood [facility] Hemoglobin [Mass/volume] in Blood [facility] Hemoglobin A1c/Hemoglobin.total in Blood [facility] Hepatic function panel [facility] Hepatitis A virus Ab [Presence] in Serum [facility] Hepatitis A virus Ig M Ab [Presence] in Serum [facility] Hepatitis B core antibody measurement, IgM type [facility] Hepatitis B surface antigen measurement [facility] Hepatitis B virus surface Ab [Presence] in Serum [facility] Hepatitis C antibody measurement [facility] IgA [Mass/volume] in Serum or Plasma [facility] IgE [Units/volume] i n Serum or Plasma [facility] IgG [Mass/volume] in Serum or Plasma [facility] IgM [Mass/volume] in Serum or Plasma [facility] Lactic acid measurement [facility] Leukocytes [#/volume ] in Blood [facility] Magnesium [Mass/volu me] in Serum or Plasma [facility] End: 05-08-2023 LULA SCREENING LULA SCREENING Radiology Routine Encounter for screening mammogram for breast cancer 1 Occurrences starting 04/08/2022 until 05/08/2023 [facility] Work Phone: Comment on above: 1 Occurrences starting 04/08/2022 until 05/08/2023 Mean corpuscular hemoglobin concentration determination [facility] Mean corpuscular hemoglobin determination [facility] Measurement of renal function [facility] Neutrophil count [facility] Neutrophil cytoplasm ic Ab.classic [Units/volume] in Serum [facility] Neutrophil percent differential count [facility] Ova and parasites identified in Unspecified specimen by Light microscopy [facility] Ova and parasites identified in Unspecified specimen by Light microscopy [facility] P-ANCA measurement [facility] Patient Education ED Dover's Palsy [facility] Work Phone: Patient referral [facility] Work Phone: Platelets [#/volume] in Blood [facility] Potassium [Moles/volume] in Serum or Plasma [facility] Protein electrophore sis panel - Serum or Plasma [facility] Radionuclide gastric emptying study [facility] Red blood cell count [facility] Red cell distributio n width determination [facility] Serum inorganic phosphate measurement [facility] Smooth muscle Ab [Presence] in Serum [facility] Sodium [Moles/volume ] in Serum or Plasma [facility] Total protein measurement [facility] Urea nitrogen [Mass/volume] in Serum or Plasma [facility] End: 10-06-2023 US ABD RIGHT UPPER QUADRANT US ABD RIGHT UPPER QUADRANT Radiology Routine Thrombocytopenia (HCC) Abnormal liver enzymes 1 Occurrences starting 09/06/2022 until 10/06/2023 [facility] Work Phone: Comment on above: 1 Occurrences starting 09/06/2022 until 10/06/2023 US Abdomen limited [facility] End: 07-28-2024 US Spleen US ABD SPLEEN Radiology Routine Cirrhosis of liver without ascites, unspecified hepatic cirrhosis type (HCC) 1 Occurrences starting 06/29/2023 until 07/28/2024 [facility] Work Phone: Comment on above: 1 Occurrences starting 06/29/2023 until 07/28/2024 [facility] Immunizations Immunization Date Immunization Notes Care Provider Fa [facility] 04-14-2022 pneumococcal (PCV20) vaccine, 20 valent (PREVNAR 20) Ana Older UNIX ARCHITECT.I&C TECH Work Phone: [facility] 03-26-2022 Covid Pfizer Bivalen t Booster Dr. Ismael Naqvi Work Phone: [facility] 06-30-2021 Covid (Pfizer) Dr. Ismael motta Work Phone: [facility] 01-07-2021 COVID-19 vaccine, ag e 12+ yr ([facility]ZER-[facility]agn[facility] - PURPLE TOP) Elder Reddy MD Work Phone: [facility] 06-17-2020 COVID-19 vaccine (CYNTHIA) Elder Reddy MD Work Phone: [facility] Payers Date Payer Category Payer Unknown [id number] 2022 Unknown [id number] 2022 Medicare [id number] 2022 Medicare [id number] 2022 Unknown [id number] 2021 Medicaid [id number] 1959 Self-pay 1955 Unknown [id number] 2.16.8 40.1.954453.3.579.2.419 1955 Unknown [id number] 2.16.84 0.1.427924.3.579.2.651 Unknown [id number] Unknown [id number] 2.16.8 40.1.200170.3.579.2.462 Unknown [id number] 2.16.8 40.1.057048.3.579.2.462 Unknown [id number] 2.16.8 40.1.256775.3.579.2.462 Unknown [id number] 2.16.8 40.1.657837.3.579.2.462 Unknown [id number] 2.16.8 40.1.515609.3.579.2.462 Unknown [id number] 2.16.8 40.1.750942.3.579.2.462 Unknown [id number] 2.16.8 40.1.588123.3.579.2.462 Unknown [id number] 2.16.8 40.1.273980.3.579.2.462 Unknown [id number] 2.16.8 40.1.284676.3.579.2.462 Unknown [id number] 2.16.8 40.1.122546.3.579.2.462 Unknown [id number] 2.16.8 40.1.671639.3.579.2.462 Unknown [id number] 2.16.8 40.1.250044.3.579.2.462 Unknown [id number] 2.16.8 40.1.876163.3.579.2.462 Unknown [id number] 2.16.8 40.1.825985.3.579.2.462 Unknown [id number] 2.16.8 40.1.274406.3.579.2.462 Unknown [id number] 2.16.8 40.1.563410.3.579.2.462 Unknown [id number] 2.16.8 40.1.829005.3.579.2.462 Unknown [id number] 2.16.8 40.1.601015.3.579.2.462 Unknown [id number] 2.16.8 40.1.495445.3.579.2.462 Unknown [id number] 2.16.8 40.1.561590.3.579.2.462 Unknown [id number] 2.16.8 40.1.411051.3.579.2.462 Unknown [id number] 2.16.8 40.1.941331.3.579.2.462 Unknown [id number] 2.16.8 40.1.095525.3.579.2.462 Social History Date Type Detail Facility Start: 04-28-2021 End: 10-16-2024 Tobacco smoking status NHIS Never smoked tobacco [facility] Start: 04-28-2021 End: 11-03-2021 Tobacco use and exposure Smokeless tobacco non-user [facility] Start: 04-28-2021 End: 02-23-2023 Alcohol intake Ex-drinker (finding) [facility] Start: 1955 Sex Assigned At Not on file [facility] Start: 07-13-2021 End: 11-03-2021 Exposure to SARS-CoV-2 (event) Not sure [facility] Work Phone: Start: 09-17-2021 History SDOH Social Connections Phone 5 [facility] Start: 09-17-2021 History SDOH Social Connections Holiness 2 [facility] Start: 09-17-2021 History SDOH Social Connections Meetings [address] [facility] Start: 06-01-2022 End: 07-06-2023 Tobacco smoking status NHIS Unknown if ever smoked [facility] Start: 1955 Sex Assigned At Female W [facility] Start: 06-03-2022 Non-smoker [facility] Start: 09-17-2021 End: 02-08-2023 History of Social function [facility] Start: 09-17-2021 End: 02-08-2023 Social connection and isolation panel [facility] Do you belong to any clubs or organizations such as pentecostal groups, unions, fraternal or athletic groups, or school groups? No [facility] Marital Status Not on file [place] [facility] (I/We) worried marely er (my/our) food would run out before (I/we) got money to buy more. Never true [facility] Start: 06-06-2024 End: 07-11-2024 Sex Female (finding) [facility] NEGATED: Highlighted rowStart: NINF History of tobacco use Passive smoker [facility] Medical Equipment Procedure Code Equipment Code Equipment Origin al Text Equipment Identifier Dates Test blood sugar(s) 1 times daily. Dx: Type 2 DM - Controlled E11.9 Insulin: No [id number] Start: 04-14-2022 Comment on above: Test blood [...] Assessment Result Facility 07-09-2023 Functional status Ambulates [facility] Work Phone: 07-08-2023 Functional status None [facility] Work Phone: 06-03-2022 Functional status Ambulates [facility] Work Phone: Mental Status Date Assessment Result Facility 10-18-2024 Cognitive function Voice/Name [facility] Work Phone: 07-09-2023 Cognitive function Voice/Name [facility] Work Phone: 06-03-2022 Cognitive function Voice/Name [facility] Work Phone: 06-01-2022 Cognitive function Voice/Name [facility] Work Phone: Clinical Notes 04-28-2021 to 10-18-2024 Note Date & Type Note Facility 10-18-2024 Consult note Note Date/Time October 18, 2024 7:05am [facility] Medical Records Department [address] [place] [address] Pre-Anesthesia Evaluation 10/18/24 0704 MR#: [id number] Acct: [id number] Name: MACY MORALES Rep #:[id number] : 1955 69 From: Jhoan Frost MD PCP: Dr. Angelita Call MD Status:REG SDC Y Race: H Location: [facility]12-1 ASA Classification* ASA Classification ASA Classification: 3 Assessment & Plan Anesthesia* Anesthesia Assessment Anesthesia Assessment: Discussed sedation and/or anesthesia options, risks, benefits, and alternatives with patient/parents/legal guardian/POA. Questions invited. The patient/parents/legal guardian/POA seems to understand and agrees to proceedwith anesthesia plan. Reviewed the physical assessment, medical history, allergy history and patient home medications list prior to surgery/procedure/anesthetic and documented any changes. Performed airway and anesthesia risk assessments. Anesthesia Type Anesthesia Type: MAC Anesthesia Focused Assessment* Airway Assessment Mouth opens: >3 cm Mallampati Score: II Labs Anesthesia Preop lab: CBC WBC 4.5 K/mm3 (4.4-11.0) 08/10/24 09:58 08/10/24 RBC 4.18 M/mm3 (4.2-5.4) L 08/10/24 09:58 08/10/24 Hgb 13.1 g/dL (12.0-15.0) 08/10/24 09:58 08/10/24 Hct 38.8 % (37-47) 08/10/24 09:58 08/10/24 Plt Count 58 K/mm3 (150-450) L 08/10/24 09:58 08/10/24 CHEMISTRY Potassium 5.0 mmol/L (3.3-5.1) 08/10/24 09:58 08/10/24 Sodium 134 mmol/L (133-145) 08/10/24 09:58 08/10/24 Magnesium 2.0 mg/dL (1.6-2.6) 07/06/23 06:15 07/06/23 Phosphorus 2.8 mg/dL (2.5-4.9) 07/21/23 11:39 07/21/23 BUN 15 mg/dL (4-19) 08/10/24 09:58 08/10/24 Creatinine 0.86 mg/dL (0.70-1.20) 08/10/24 09:58 08/10/24 Glucose 152 mg/dL (70-99) H 08/10/24 09:58 08/10/24 POC Glucose 218 mg/dL (74-106) H 06/03/22 12:08 06/03/22 TSH 3.780 uIU/mL (0.300-4.200) 07/04/24 10:47 06/14 05/09 COAG PT 14.9 SECONDS (11.7-14.9) 05/29/24 11:22 Pre-Assessment Diagnosis/Proposed Procedure Planned Operative Procedure(s): EGD,COLONOSCOPY Anesthesia History Anesthesia History - ui developer designer: Anesthesia History - ui developer designer Hx Hospitalization No 10/16/24 17:00 Any Problems [...] take am of surgery PONV PONV - ui developer designer: PONV - ui developer designer Female Yes 10/16/24 17:00 HX of Motion Sickness No 10/16/24 17:00 HX of N/V After Surgery No 10/16/24 17:00 Non-Smoker Yes 10/16/24 17:00 Duration of Surgery greater No 10/16/24 17:00 than 60 minutes Number of Risk Factors 2 10/16/24 17:00 PONV Score Moderate Risk 10/16/24 17:00 Height & Weight Height & Weight: Anesthesia: Height & Weight Height 5 ft 08/10/24 09:10 Respiratory Assessment Respiratory Assessment - ui developer designer: Respiratory Tract Infection Hx - ui developer designer Hx Respiratory Tract Infection No 10/16/24 17:00 STOP Sleep Apnea STOP Sleep Apnea - ui developer designer: STOP Sleep Apnea - ui developer designer Hx Hypertension Yes 10/16/24 17:00 Hx Sleep [...] Tobacco Use History Tobacco Use History - ui developer designer: Tobacco Use History - ui developer designer Tobacco Use Non-smoker 06/03/22 12:18 Smoking Status Never smoker 10/16/24 17:00 Hx Tobacco Use No 10/16/24 17:00 Years Smoking Packs Smoked per Day Smoking Cessation Date was within the last 15 years Hx Smoking Cessation Date Hx Smoking Cessation No 10/16/24 17:00 Counseling Hematologic Medial History Hematologic Hx - ui developer designer: Hematologic Medical Hx - validation leader Hx of Blood Transfusion No 10/16/24 17:00 Hx of Transfusion in last 3 No 10/16/24 17:00 Months Date of Last Transfusion (if within last 3 months) Ever experience any problems No 10/16/24 17:00 with transfusion(s)? Specify any problems Hx of Preganancy in last 3 No 10/16/24 17:00 Months Nurse Filling Out Transfusion MGRIFFITH 10/16/24 17:00 & Questions: Date: 10/16/24 10/16/24 17:00 Time: 17:02 10/16/24 17:00 Patient unable to answer at this time (ie. confused, unrespo /Reproduction History /Reproductive History - ui developer designer: /Reproductive Hx- ui developer designer Hx Now Gestational Age (in weeks): EDC: Hx Hx Para Hx Section SAB Active Medications Active Medications: Current Medications Generic Name Dose Route Start Last Admin Trade Name Freq PRN Reason Stop Dose Admin Lactated Ringer's 1,000 mls @ 15 mls/hr 10/18/24 07:00 IV .Q48H BETO PFSH Medical History Thyroid disease Hepatitis Non-smoker History of edema History of echocardiogram Fracture of right distal radius Right wrist pain Adverse drug reaction Hyperbilirubinemia Nausea vomiting and diarrhea Acute renal failure Acute kidney injury Thrombocytopenia Facial droop History of hypertension HTN (hypertension) Diabetes Home Medications ?Medication ?Instructions ?Recorded ?Last Taken ?Type atorvastatin 20 mg tablet 20 mg PO QHS 07/06/23 Unknow n History metoclopramide HCl 5 mg tablet 5 mg PO TID #90 tabs Unknown Rx (Reglan) furosemide 40 mg tablet (Lasix) 40 mg PO QDAY 07/04/24 Unknown History levothyroxine 50 mcg capsule 50 mcg PO QDAY 07/04/24 U nknown History linagliptin 5 mg tablet (Tradjenta) 5 mg PO QDAY 07/0410/16/24 History pantoprazole 40 mg tablet,delayed 40 mg PO QDAY #90 ta bs 07/04/24 Unknown Rx release rifaximin 550 mg tablet (Xifaxan) 550 mg PO BID hepati c 07/04/24 Unknown Rx encephalopathy, cirrhosis #180 tabs spironolactone 100 mg tablet 100 mg PO QAM #90 tabs Unknown Rx (Aldactone) carvedilol 6.25 mg tablet 6.25 mg PO QHS 08/10/24 Unkn own History lactulose 10 gram/15 mL oral 10 g PO QHS 08/10/24 Unkn own History solution lactulose 10 gram/15 mL oral 20 g PO BID 08/10/24 Unkn own History solution peg 3350-electrolytes 236 240 ml PO Q10M #4,000 mL 04/08 Unknown Rx gram-22.74 gram-6.74 gram-5.86 gram solution (Golytely) Allergy/AdvReac Type Severity Reaction Status Date / Time No Known Allergies Allergy Verified 10/16/24 16:43 Family History Other CVA (cerebral vascular accident) Hypertension Surgical History History of esophagogastroduodenoscopy (EGD) Social History household members: spouse, children and other details: 2 grandchildren Smoking Status: Never smoker alcohol intake: never Review of Systems (Anesthesia) ROS Narrative System reviewed and no additional complaints, except as documented. 10/18/24704 <Electronically signed by Jhoan Frost MD > Date _ Jhoan Edwards Signature: Date CC: ~ Signed [facility] Work Phone: 1(419) 320-366108-06-2025 History and physical note Author Santino Marie [facility] Note Date/Time October 18, 2024 6:5 4am [facility] Medical Records Department [address] [place] [address] History & Physical Exam 10/18/2451 MR#: [id number] Acct: [id number] Name: MACY MORALES Rep #:[id number] : 1955 69 From: Santino Marie DO PCP: Dr. Angelita Call MD Status:[facility] Location: [place] [address] HPI - General General Date of Admission: 10/18/24 Date of Service: 10/18/24 Chief Complaint: abdominal pain HPI Narrative MACY MORALES, is a 69 F who presents with the Chief Complaint: abdominal pain OV 07/04/2024 68-year-old female presents for follow-up [...] and worsened since starting Ozempic February 2024. Shedenies any improvement in symptoms since discontinuing Ozempic 5 weeks ago. Shedenies any heartburn and discontinued pantoprazole 40 mg daily 4 to 6 weeks ago. She reports having 3-4 formed stools daily. Abdominal ultrasound performed 05/18/2024 does reveal small amount of ascites. She will complete an abdominal x-ray today and schedule abdominal ultrasound and gastric emptying study. We havediscussed the importance of a low-sodium diet, avoidance [...] KUB x-ray today 2. ABD Ultrasound call [phone] to schedule 3. Gastric Emptying Study call [phone] to schedule 4. Resume pantoprazole 40mg once daily 5. Daily weights, contact office with >5lb weight gain 6. 2g Sodium Diet 7. Start Aldactone 100mg daily 8. Complete labs in 1 week (BMP) 9. Start Xifaxan 550mg twice a day, if not covered by insurance we can apply forpatient assistance 10. Follow-up in one month 11. Continue Furosemide 40mg once daily 07/06/2023 HEPATITIS A-IgM Negative Negative HEP B SURF AG Negative Negative HEP B CORE,IgM Negative Negative HEP C VIRUS AB Non Reactive Non Reactive JACINTO: 07/07/2023 negative EGD 07/07/2023 - Grade I esophageal varices. - Portal hypertensive gastropathy. GES 08/01/2024 negative ( she takes reglan 5mg TID AC) ABD US 07/06/2024 reveals cirrhosis, no evidence of hepatoma. Small amount of ascites. KUB 07/04/2024 reveals constipation. She should increase Lactulose dose to 30ml every morning and 15ml in the evening if needed. CBC: 07/04/2024 WBC 4.2, HGB 11.7, PLT 66 CMP: 07/04/2024 Na 139, K+ 3.8, BUN 12, Creat 0.72, T. Bili 2.50, AST 80, ALT 34,ALP 211, Albumin 3.5 TSH 07/04/2024 3.780 INR 05/29/2024 1.1 MELD: 11 WEIGHT: down 14lbs since starting Aldactone MEDS: Lasix 40mg QD, Aldactone 100mg QD - she reports she is much better - stools are moving much better, she is now having 3-4 BM daily BP: 146/80, HR: 69 Carvedilol 6.25mg once daily at - not taking Norvasc 5mg daily - she has never had a colonoscopy - denies any family h/o colon CA [facility] Medical History Thyroid disease Hepatitis Non-smoker History of edema History of echocardiogram Fracture of right distal radius Right wrist pain Adverse drug reaction Hyperbilirubinemia Nausea vomiting and diarrhea Acute renal failure Acute kidney injury Thrombocytopenia Facial droop History of hypertension HTN (hypertension) Diabetes Home Medications ?Medication ?Instructions ?Recorded ?Last Taken ?Type atorvastatin 20 mg tablet 20 mg PO QHS 07/06/23 Unknow n History metoclopramide HCl 5 mg tablet 5 mg PO TID #90 tabs Unknown Rx (Reglan) furosemide 40 mg tablet (Lasix) 40 mg PO QDAY 07/04/24 Unknown History levothyroxine 50 mcg capsule 50 mcg PO QDAY 07/04/24 U nknown History linagliptin 5 mg tablet (Tradjenta) 5 mg PO QDAY 07/0410/16/24 History pantoprazole 40 mg tablet,delayed 40 mg PO QDAY #90 ta bs 07/04/24 Unknown Rx release rifaximin 550 mg tablet (Xifaxan) 550 mg PO BID hepati c 07/04/24 Unknown Rx encephalopathy, cirrhosis #180 tabs spironolactone 100 mg tablet 100 mg PO QAM #90 tabs Unknown Rx (Aldactone) carvedilol 6.25 mg tablet 6.25 mg PO QHS 08/10/24 Unkn own History lactulose 10 gram/15 mL oral 10 g PO QHS 08/10/24 Unkn own History solution lactulose 10 gram/15 mL oral 20 g PO BID 08/10/24 Unkn own History solution peg 3350-electrolytes 236 240 ml PO Q10M #4,000 mL 04/08 Unknown Rx gram-22.74 gram-6.74 gram-5.86 gram solution (Golytely) Allergy/AdvReac Type Severity Reaction Status Date / Time No Known Allergies Allergy Verified 10/16/24 16:43 Family History Other CVA (cerebral vascular accident) Hypertension Surgical History History of esophagogastroduodenoscopy (EGD) Social History household members: spouse, children and other details: 2 grandchildren Smoking Status: Never smoker alcohol intake: never ROS Constitutional Constitutional: Denies fatigue, fever(s), poor appetite, weight gain or weight loss Gastrointestinal Gastrointestinal: Denies belching, bloating, change in bowel habits, change in stool character, chewing difficulty, coffee ground emesis, constipation, cramping, diarrhea, dyspepsia, dysphagia, early satiety, excessive flatus, fecalincontinence, heartburn, hematemesis, hematochezia, hemorrhoids, loose stools, melena, nausea, odynophagia, rectal bleeding, tenesmus, vomiting or weight changes Physical Exam Const alert, oriented x3, no apparent distress and healthy appearing General Appearance: cooperative GI normal to inspection, nondistended, normoactive bowel sounds, soft to palpation,non-tender and non-distended Percussion: normal to percussion Rectal Exam: deferred Assessment & Plan Assessment/Plan (1) Pancytopenia: (2) Abdominal pain: (3) Abdominal distension: PLAN: Assessment and Plan Assessment and Plan (1) Cirrhosis: Status: Acute (2) Pancytopenia: Status: Acute (3) Screening for colon cancer: Status: Acute Orders: Orders Hepatitis B Surface Antibody 08/10/24 Jessica Worthington NP-C D61.818 - Other pancytopenia, K74.60 - Unspecified cirrhosis of liver Hepatitis A AB, Total 08/10/24 Jessica WorthingtonJENNIFER D61.818 - Other pancytopenia, K74.60 - Unspecified cirrhosis of liver Liver Profile 08/10/24 Jessica WorthingtonJENNIFER D61.818 - Other pancytopenia, K74.60 - Unspecified cirrhosis of liver GGTP 08/10/24 Jessica WorthingtonJENNIFER D61.818 - Other pancytopenia, K74.60 - Unspecified cirrhosis of liver, R74.8 - Abnormal levels of other serum enzymes CBC W/Diff, Automated 08/10/24 Jessica WorthingtonJENNIFER D61.818 - Other pancytopenia, K74.60 - Unspecified cirrhosis of liver Medications: New peg 3350-electrolytes 236-22.74-6.74 -5.86 gram (Golytely) as directed for split dose bowel prep 240 mL PO Q10M 4,000 mL 0RF JENNIFER Mcdonald Changed From lactulose 10 grams (15 mL) PO DAILY 473 mL 3RF To lactulose [address] De Friend, DO Plan 68-year-old female with a history of cirrhosis who presents for one-month follow-up after initiation of spironolactone and titration of lactulose. Since her last visit, she has noted a 14-pound weight loss, improved abdominal distention, and resolution of lower extremity edema, suggesting good diuretic response. She also reports improved bowel regularity, now having 3?4 bowel movements daily on the increased lactulose dose. She denies shortness of breath and reports feeling overall much better. She has not yet completed the recommended laboratory monitoring one week after starting spironolactone and will do so now to assess renal function and electrolytes. Abdominal ultrasound confirmed cirrhosis with trace ascites and no evidence of hepatoma. She has beencounseled on maintaining a low sodium diet and daily weights. She is currently on Lasix, spironolactone, lactulose, rifaximin, and pantoprazole. I recommended she schedule a hepatology consultation with Dr. Maddox for continued management of cirrhosis and further workup. She is also overdue for age-appropriate colorectal cancer screening and will proceed with scheduling a colonoscopy. We will continue current management and reassess in follow-up pending lab results and specialist evaluations. Note: Link To Media speech recognition band straightener software was used to create portions of this document. Sound-alike and misspelled words, as well as other band straightener errors may be contained in the documentation. Patient Instructions: Colonoscopy Consult with Dr. Maddox Continue Lactulose 30ml Qam and 15ml at HS PRN, goal of 2-3 BM daily Continue Aldactone 100mg QD and Furosemide 40mg QD 10/18/24 0654 <Electronically signed by Santino Marie DO> Cosigner Signature (if applicable): CC: Dr. Angelita Call MD; Santino Marie DO~ Signed [facility] Work Phone: 1(133) 666-868308-06-2025 Procedure note [facility] Medical Records Department [address] [place] [address] Provation Physician Letter MR#: [id number] Acct: [id number] Name: MACY MORALES Rep #:[id number] : 1955 69 From: Santino Marie DO PCP: Dr. Angelita Call MD Status:REG SDC 10/18/2024 Angelita Call [address] [address] Re : Colonoscopy procedure for Macy Morales Dear Dr. Call This procedure was performed on Friday, October 18, 2024. My impressions and recommendations are as follows: Impressions : - Preparation of the colon was fair. - Diverticulosis in the recto-sigmoid colon, in the sigmoid colon and in the descending colon. - Three 10 mm polyps in the sigmoid colon, at the hepatic flexure and in the ascending colon, removed with a jumbo cold forceps. Resected and retrieved. - Stool in the rectum, in the recto-sigmoid colon, in the sigmoid colon, in the transverse colon, at the hepatic flexure, in the ascending colon and in the cecum. Recommendations : - Discharge patient to home. - Resume previous diet. - Continue present medications. - Await pathology results. - Repeat colonoscopy because the bowel preparation was poor. My findings are described in the full procedure note, which is enclosed. If I can be of further assistance, please feel free to contact me at . Sincerely, Santino Marie DO 10/18/2024 8:46:32 AM This report has been signed electronically. 10/18/24845 Date _ Santino Marie DO Cosigner Signature: Date (if indicated) CC: Dr. Angelita Call MD; Santino Marie DO ~ Date Dictated: 10/18/24822 Date Transcribed: Manager Support: RF Signed [facility]08-06-2025 Procedure note [facility] Medical Records Department [address] [place] [id number] Colonoscopy Report MR#: [id number] Acct: [id number] Name: MACY MORALES Rep #:[id number] : 1955 69 From: Santino Marie DO PCP: Dr. Angelita Call MD Status:[facility] Patient Name: Macy Morales Procedure Date: 10/18/2024 8:23 AM Date of : 1955 Age: 69 Procedure: Colonoscopy Indications: Generalized abdominal pain Providers: Santino Marie DO Medicines: Monitored Anesthesia Care Patient Profile: This is a 69 year old female. Refer to note in patient chart for documentation of history and physical. Patient has symptoms of acute epigastric abdominal pain, acute dyspepsia and acute nausea. Her most recent EGD for biopsy was within the past six months. Last Colonoscopy: 5 years ago. Complications: No immediate complications. Procedure: Pre-Anesthesia Assessment: - Prior to the procedure, a History and Physical was performed, and patient medications and allergies were reviewed. The patient is competent. The risks and benefits of the procedure and the sedation options and risks were discussed with the patient. All questions were answered and informed consent was obtained. Patient identification and proposed procedure were verified by the physician in the pre-procedure area. Mental Status Examination: alert and oriented. Airway Examination: normal oropharyngeal airway and neck mobility. Respiratory Examination: clear to auscultation. CV Examination: normal. Prophylactic Antibiotics: The patient does not require prophylactic antibiotics. Prior Anticoagulants: The patient has taken no anticoagulant or antiplatelet agents. ASA Grade Assessment: III - A patient with severe systemic disease. After reviewing the risks and benefits, the patient was deemed in satisfactory condition to undergo the procedure. The anesthesia plan was to use monitored anesthesia care (MAC). Immediately prior to administration of medications, the patient was re-assessed for adequacy to receive sedatives. The heart rate, respiratory rate, oxygen saturations, blood pressure, adequacy of pulmonary ventilation, and response to care were monitored throughout the procedure. The physical status of the patient was re-assessed after the procedure. After I obtained informed consent, the scope was passed under direct vision. Throughout the procedure, the patient's blood pressure, pulse, and oxygen saturations were monitored continuously. The Colonoscope was introduced through the anus and advanced to the cecum, identified by appendiceal orifice and ileocecal valve. The quality of the bowel preparation was fair. The ileocecal valve, appendiceal orifice, and rectum were photographed. Scope In: 8:25:02 AM Scope Withdrawal Time 0 hours 5 minutes 16 seconds Scope Out: 8:33:42 AM Total Procedure Duration Time 0 hours 8 minutes 40 seconds Findings: The perianal and digital rectal examinations were normal. Multiple small-mouthed diverticula were found in the recto-sigmoid colon, sigmoid colon and descending colon. Three sessile polyps were found in the sigmoid colon, hepatic flexure and ascending colon. The polyps were 10 mm in size. These polyps were removed with a jumbo cold forceps. Resection and retrieval were complete. Verification of patient identification for the specimen was done. Estimated blood loss was minimal. Stool was found in the rectum, in the recto-sigmoid colon, in the sigmoid colon, in the transverse colon, at the hepatic flexure, in the ascending colon and in the cecum. Impression: - Preparation of the colon was fair. - Diverticulosis in the recto-sigmoid colon, in the sigmoid colon and in the descending colon. - Three 10 mm polyps in the sigmoid colon, at the hepatic flexure and in the ascending colon, removed with a jumbo cold forceps. Resected and retrieved. - Stool in the rectum, in the recto-sigmoid colon, in the sigmoid colon, in the transverse colon, at the hepatic flexure, in the ascending colon and in the cecum. Recommendation: - Discharge patient to home. - Resume previous diet. - Continue present medications. - Await pathology results. - Repeat colonoscopy because the bowel preparation was poor. Procedure Code(s): --- Professional --- 77206, Colonoscopy, flexible; with biopsy, single or multiple CPT copyright 2021 [employer]. All rights reserved. The codes documented in this report are preliminary and upon therapeutic case manager review may be revised to meet current compliance requirements. Santino Marie DO 10/18/2024 8:46:32 AM This report has been signed electronically. Number of Addenda: 0 Note Initiated On: 10/18/2024 8:23 AM 10/18/24 0846 Date _ Santino Marie DO Cosigner Signature: Date (if indicated) CC: Dr. Angelita Call MD; Santino Marie DO ~ Date Dictated: 10/18/24822 Date Transcribed: Manager Support: RF Signed [facility]08-06-2025 Consult note [facility] Medical Records Department [address] [place] [address] Anesthesia Postop Eval I 10/18/24 0844 MR#: [id number] Acct: [id number] Name: MACY MORALES Rep #:[id number] : 1955 69 From: Shane Nair PCP: Dr. Angelita Call MD Status:REG [facility] Y Race: H Location: [place] [address] Anesthesia: Postop Eval I Current Vital Signs Temperature: 97.8 F Pulse Rate: 78 Blood Pressure: 123/56 Respiratory Rate: 16 Pulse Ox: 99 Oxygen Delivery Method: Room Air Assessment Airway patent: Yes Spontaneous unlabored respirations: Yes Mental status: Asleep nausea: No Vomiting: No Anesthesia Complication: No Fluid Hydration Crystalloid volume administer (ml): 400 Total IV fluid infused: 400 Progress Note Anesthesia document: Postop Eval 1 completed: Yes 10/18/24 0845 > Date _ Shane Edwards Signature: Date CC: ~ Signed [facility]08-06-2025 Procedure note [facility] Medical Records Department [address] [place] [address] EGD Report MR#: [id number] Acct: [id number] Name: MACY MORALES Rep #:[id number] : 1955 69 From: Santino Marie DO PCP: Dr. Angelita Call MD Status:[facility] Patient Name: Macy Morales Procedure Date: 10/18/2024 8:04 AM Date of : 1955 Age: 69 Procedure: Upper GI endoscopy Indications: Epigastric abdominal pain, Functional Dyspepsia, Indigestion, Esophageal varices with bleeding, Follow-up of esophageal varices with bleeding Providers: Santino Marie DO Medicines: Monitored Anesthesia Care Patient Profile: This is a 69 year old female. Refer to note in patient chart for documentation of history and physical. Patient has symptoms of acute epigastric abdominal pain, acute dyspepsia and acute nausea. Her most recent EGD for biopsy was within the past six months. Complications: No immediate complications. Procedure: Pre-Anesthesia Assessment: - Prior to the procedure, a History and Physical was performed, and patient medications and allergies were reviewed. The patient is competent. The risks and benefits of the procedure and the sedation options and risks were discussed with the patient. All questions were answered and informed consent was obtained. Patient identification and proposed procedure were verified by the physician in the pre-procedure area. Mental Status Examination: alert and oriented. Airway Examination: normal oropharyngeal airway and neck mobility. Respiratory Examination: clear to auscultation. CV Examination: normal. Prophylactic Antibiotics: The patient does not require prophylactic antibiotics. Prior Anticoagulants: The patient has taken no anticoagulant or antiplatelet agents. ASA Grade Assessment: III - A patient with severe systemic disease. After reviewing the risks and benefits, the patient was deemed in satisfactory condition to undergo the procedure. The anesthesia plan was to use monitored anesthesia care (MAC). Immediately prior to administration of medications, the patient was re-assessed for adequacy to receive sedatives. The heart rate, respiratory rate, oxygen saturations, blood pressure, adequacy of pulmonary ventilation, and response to care were monitored throughout the procedure. The physical status of the patient was re-assessed after the procedure. After obtaining informed consent, the endoscope was passed under direct vision. Throughout the procedure, the patient's blood pressure, pulse, and oxygen saturations were monitored continuously. The Colonoscope was introduced through the mouth, and advanced to the third part of the duodenum. Small bowel enteroscopy was deemed necessary. The upper GI endoscopy was accomplished without difficulty. The patient tolerated the procedure well. Scope In: 8:19:47 AM Scope Out: 8:23:36 AM Total Procedure Duration Time 0 hours 3 minutes 49 seconds Findings: Small (< 5 mm) varices were found in the lower third of the esophagus. They were 5 mm in largest diameter. Severe portal hypertensive gastropathy was found in the entire examined stomach. Biopsies were taken with a cold forceps for histology. Verification of patient identification for the specimen was done. Estimated blood loss was minimal. Biopsies were taken with a cold forceps for Helicobacter pylori testing. Verification of patient identification for the specimen was done. Estimated blood loss was minimal. A benign-appearing, intrinsic moderate stenosis was found at the pylorus. This was traversed. Diffuse moderate inflammation was found in the entire duodenum. Impression: - Small (< 5 mm) esophageal varices. - Portal hypertensive gastropathy. Biopsied. - Gastric stenosis was found at the pylorus. - Chronic duodenitis. Recommendation: - Discharge patient to home. - Resume previous diet. - Continue present medications. - Await pathology results. - Repeat upper endoscopy in 3 months for surveillance. Procedure Code(s): --- Professional --- 03678, Small intestinal endoscopy, enteroscopy beyond second portion of duodenum, not including ileum; with biopsy, single or multiple CPT copyright 2021 [employer]. All rights reserved. The codes documented in this report are preliminary and upon therapeutic case manager review may be revised to meet current compliance requirements. Santino Marie DO 10/18/2024 8:40:16 AM This report has been signed electronically. Number of Addenda: 0 Note Initiated On: 10/18/2024 8:04 AM 10/18/24 0840 Date _ Santino Marie DO Cosigner Signature: Date (if indicated) CC: Dr. Angelita Call MD; Santino Marie DO ~ Date Dictated: 10/18/24 0804 Date Transcribed: Manager Support: RF Signed [facility]08-06-2025 Procedure note [facility] Medical Records Department [address] [place] [address] Provation Physician Letter MR#: [id number] Acct: [id number] Name: MACY MORALES Rep #:[id number] : 1955 69 From: Santino Marie DO PCP: Dr. Angelita Call MD Status:REG [facility] 10/18/2024 Angelita Call [address] [place] [address] Re : Upper GI endoscopy procedure for Amcy Celeste Dear Dr. Call This procedure was performed on Wednesday, October 18, 2024. My impressions and recommendations are as follows: Impressions : - Small (< 5 mm) esophageal varices. - Portal hypertensive gastropathy. Biopsied. - Gastric stenosis was found at the pylorus. - Chronic duodenitis. Recommendations : - Discharge patient to home. - Resume previous diet. - Continue present medications. - Await pathology results. - Repeat upper endoscopy in 3 months for surveillance. My findings are described in the full procedure note, which is enclosed. If I can be of further assistance, please feel free to contact me at . Sincerely, Santino Marie DO 10/18/2024 8:40:16 AM This report has been signed electronically. 10/18/24839 Date _ Santino Marie DO Cosigner Signature: Date (if indicated) CC: Dr. Angelita Call MD; Santino Marie DO ~ Date Dictated: 10/18/24803 Date Transcribed: Manager Support: RF Signed [facility]08-06-2025 Consult note [facility] Medical Records Department [address] [place] [address] Pre-Anesthesia Evaluation 10/18/24703 MR#: [id number] Acct: [id number] Name: MACY MORALES Rep #:[id number] : 1955 69 From: Jhoan Frost MD PCP: Dr. Angelita Call MD Status:REG [facility] Y Race: H Location: [place] [address] ASA Classification* ASA Classification ASA Classification: 3 Assessment & Plan Anesthesia* Anesthesia Assessment Anesthesia Assessment: Discussed sedation and/or anesthesia options, risks, benefits, and alternatives with patient/parents/legal guardian/POA. Questions invited. The patient/parents/legal guardian/POA seems to understand and agrees to proceedwith anesthesia plan. Reviewed the physical assessment, medical history, allergy history and patient home medications list prior to surgery/procedure/anesthetic and documented any changes. Performed airway and anesthesia risk assessments. Anesthesia Type Anesthesia Type: MAC Anesthesia Focused Assessment* Airway Assessment Mouth opens: >3 cm Mallampati Score: II Labs Anesthesia Preop lab: CBC WBC 4.5 K/mm3 (4.4-11.0) 08/10/24 09:58 08/10/24 RBC 4.18 M/mm3 (4.2-5.4) L 08/10/24 09:58 08/10/24 Hgb 13.1 g/dL (12.0-15.0) 08/10/24 09:58 08/10/24 Hct 38.8 % (37-47) 08/10/24 09:58 08/10/24 Plt Count 58 K/mm3 (150-450) L 08/10/24 09:58 08/10/24 CHEMISTRY Potassium 5.0 mmol/L (3.3-5.1) 08/10/24 09:58 08/10/24 Sodium 134 mmol/L (133-145) 08/10/24 09:58 08/10/24 Magnesium 2.0 mg/dL (1.6-2.6) 07/06/23 06:15 07/06/23 Phosphorus 2.8 mg/dL (2.5-4.9) 07/21/23 11:39 07/21/23 BUN 15 mg/dL (4-19) 08/10/24 09:58 08/10/24 Creatinine 0.86 mg/dL (0.70-1.20) 08/10/24 09:58 08/10/24 Glucose 152 mg/dL (70-99) H 08/10/24 09:58 08/10/24 POC Glucose 218 mg/dL (74-106) H 06/03/22 12:08 06/03/22 TSH 3.780 uIU/mL (0.300-4.200) 07/04/24 10:47 06/14 05/09 COAG PT 14.9 SECONDS (11.7-14.9) 05/29/24 11:22 Pre-Assessment Diagnosis/Proposed Procedure Planned Operative Procedure(s): EGD,COLONOSCOPY Anesthesia History Anesthesia History - ui developer designer: Anesthesia History - ui developer designer Hx Hospitalization No 10/16/24 17:00 Any Problems [...] take am of surgery PONV PONV - ui developer designer: PONV - ui developer designer Female Yes 10/16/24 17:00 HX of Motion Sickness No 10/16/24 17:00 HX of N/V After Surgery No 10/16/24 17:00 Non-Smoker Yes 10/16/24 17:00 Duration of Surgery greater No 10/16/24 17:00 than 60 minutes Number of Risk Factors 2 10/16/24 17:00 PONV Score Moderate Risk 10/16/24 17:00 Height & Weight Height & Weight: Anesthesia: Height & Weight Height 5 ft 08/10/24 09:10 Respiratory Assessment Respiratory Assessment - ui developer designer: Respiratory Tract Infection Hx - ui developer designer Hx Respiratory Tract Infection No 10/16/24 17:00 STOP Sleep Apnea STOP Sleep Apnea - ui developer designer: STOP Sleep Apnea - ui developer designer Hx Hypertension Yes 10/16/24 17:00 Hx Sleep [...] than talking or can be heard through closeddoors)? Tobacco Use History Tobacco Use History - ui developer designer: Tobacco Use History - ui developer designer Tobacco Use Non-smoker 06/03/22 12:18 Smoking Status Never smoker 10/16/24 17:00 Hx Tobacco Use No 10/16/24 17:00 Years Smoking Packs Smoked per Day Smoking Cessation Date was within the last 15 years Hx Smoking Cessation Date Hx Smoking Cessation No 10/16/24 17:00 Counseling Hematologic Medial History Hematologic Hx - ui developer designer: Hematologic Medical Hx - validation leader Hx of Blood Transfusion No 10/16/24 17:00 Hx of Transfusion in last 3 No 10/16/24 17:00 Months Date of Last Transfusion (if within last 3 months) Ever experience any problems No 10/16/24 17:00 with transfusion(s)? Specify any problems Hx of Preganancy in last 3 No 10/16/24 17:00 Months Nurse Filling Out Transfusion MGRIFFITH 10/16/24 17:00 & Questions: Date: 10/16/24 10/16/24 17:00 Time: 17:02 10/16/24 17:00 Patient unable to answer at this time (ie. confused, unrespo /Reproduction History /Reproductive History - ui developer designer: /Reproductive Hx- ui developer designer Hx Now Gestational Age (in weeks): EDC: Hx Hx Para Hx Section SAB Active Medications Active Medications: Current Medications Generic Name Dose Route Start Last Admin Trade Name Freq PRN Reason Stop Dose Admin Lactated Ringer's 1,000 mls @ 15 mls/hr 10/18/24 07:00 IV .Q48H BETO PFSH Medical History Thyroid disease Hepatitis Non-smoker History of edema History of echocardiogram Fracture of right distal radius Right wrist pain Adverse drug reaction Hyperbilirubinemia Nausea vomiting and diarrhea Acute renal failure Acute kidney injury Thrombocytopenia Facial droop History of hypertension HTN (hypertension) Diabetes Home Medications ?Medication ?Instructions ?Recorded ?Last Taken ?Type atorvastatin 20 mg tablet 20 mg PO QHS 07/06/23 Unknow n History metoclopramide HCl 5 mg tablet 5 mg PO TID #90 tabs Unknown Rx (Reglan) furosemide 40 mg tablet (Lasix) 40 mg PO QDAY 07/04/24 Unknown History levothyroxine 50 mcg capsule 50 mcg PO QDAY 07/04/24 U nknown History linagliptin 5 mg tablet (Tradjenta) 5 mg PO QDAY 07/0410/16/24 History pantoprazole 40 mg tablet,delayed 40 mg PO QDAY #90 ta bs 07/04/24 Unknown Rx release rifaximin 550 mg tablet (Xifaxan) 550 mg PO BID hepati c 07/04/24 Unknown Rx encephalopathy, cirrhosis #180 tabs spironolactone 100 mg tablet 100 mg PO QAM #90 tabs Unknown Rx (Aldactone) carvedilol 6.25 mg tablet 6.25 mg PO QHS 08/10/24 Unkn own History lactulose 10 gram/15 mL oral 10 g PO QHS 08/10/24 Unkn own History solution lactulose 10 gram/15 mL oral 20 g PO BID 08/10/24 Unkn own History solution peg 3350-electrolytes 236 240 ml PO Q10M #4,000 mL 04/08 Unknown Rx gram-22.74 gram-6.74 gram-5.86 gram solution (Golytely) Allergy/AdvReac Type Severity Reaction Status Date / Time No Known Allergies Allergy Verified 10/16/24 16:43 Family History Other CVA (cerebral vascular accident) Hypertension Surgical History History of esophagogastroduodenoscopy (EGD) Social History household members: spouse, children and other details: 2 grandchildren Smoking Status: Never smoker alcohol intake: never Review of Systems (Anesthesia) ROS Narrative System reviewed and no additional complaints, except as documented. 10/18/24 0705 > Date _ Jhoan Frost MD Cosigner Signature: Date CC: ~ Signed [facility]08-06-2025 History and physical note [facility] Medical Records Department [address] [place] [address] History & Physical Exam 10/18/2451 MR#: [id number] Acct: [id number] Name: MACY MORALES Rep #:[id number] : 1955 69 From: Santino Marie DO PCP: Dr. Angelita Call MD Status:[facility] Location: [place] [address] HPI - General General Date of Admission: 10/18/24 Date of Service: 10/18/24 Chief Complaint: abdominal pain HPI Narrative MACY MORALES, is a 69 F who presents with the Chief Complaint: abdominal pain OV 07/04/2024 68-year-old female presents for follow-up [...] and worsened since starting Ozempic February 2024. Shedenies any improvement in symptoms since discontinuing Ozempic 5 weeks ago. Shedenies any heartburn and discontinued pantoprazole 40 mg daily 4 to 6 weeks ago. She reports having 3-4 formed stools daily. Abdominal ultrasound performed 05/18/2024 does reveal small amount of ascites. She will complete an abdominal x- ray today and schedule abdominal ultrasound and gastric emptying study. We havediscussed the importance of a low-sodium diet, avoidance [...] KUB x-ray today 2. ABD Ultrasound call [phone] to schedule 3. Gastric Emptying Study call [phone] to schedule 4. Resume pantoprazole 40mg once daily 5. Daily weights, contact office with >5lb weight gain 6. 2g Sodium Diet 7. Start Aldactone 100mg daily 8. Complete labs in 1 week (BMP) 9. Start Xifaxan 550mg twice a day, if not covered by insurance we can apply forpatient assistance 10. Follow-up in one month 11. Continue Furosemide 40mg once daily 07/06/2023 HEPATITIS A-IgM Negative Negative HEP B SURF AG Negative Negative HEP B CORE,IgM Negative Negative HEP C VIRUS AB Non Reactive Non Reactive JACINTO: 07/07/2023 negative EGD 07/07/2023 - Grade I esophageal varices. - Portal hypertensive gastropathy. GES 08/01/2024 negative ( she takes reglan 5mg TID AC) ABD US 07/06/2024 reveals cirrhosis, no evidence of hepatoma. Small amount of ascites. KUB 07/04/2024 reveals constipation. She should increase Lactulose dose to 30ml every morning and 15ml in the evening if needed. CBC: 07/04/2024 WBC 4.2, HGB 11.7, PLT 66 CMP: 07/04/2024 Na 139, K+ 3.8, BUN 12, Creat 0.72, T. Bili 2.50, AST 80, ALT 34,ALP 211, Albumin 3.5 TSH 07/04/2024 3.780 INR 05/29/2024 1.1 MELD: 11 WEIGHT: down 14lbs since starting Aldactone MEDS: Lasix 40mg QD, Aldactone 100mg QD - she reports she is much better - stools are moving much better, she is now having 3-4 BM daily BP: 146/80, HR: 69 Carvedilol 6.25mg once daily at HS - not taking Norvasc 5mg daily - she has never had a colonoscopy - denies any family h/o colon CA PFSH Medical History Thyroid disease Hepatitis Non-smoker History of edema History of echocardiogram Fracture of right distal radius Right wrist pain Adverse drug reaction Hyperbilirubinemia Nausea vomiting and diarrhea Acute renal failure Acute kidney injury Thrombocytopenia Facial droop History of hypertension HTN (hypertension) Diabetes Home Medications ?Medication ?Instructions ?Recorded ?Last Taken ?Type atorvastatin 20 mg tablet 20 mg PO QHS 07/06/23 Unknow n History metoclopramide HCl 5 mg tablet 5 mg PO TID #90 tabs Unknown Rx (Reglan) furosemide 40 mg tablet (Lasix) 40 mg PO QDAY 07/04/24 Unknown History levothyroxine 50 mcg capsule 50 mcg PO QDAY 07/04/24 U nknown History linagliptin 5 mg tablet (Tradjenta) 5 mg PO QDAY 07/0410/16/24 History pantoprazole 40 mg tablet,delayed 40 mg PO QDAY #90 ta bs 07/04/24 Unknown Rx release rifaximin 550 mg tablet (Xifaxan) 550 mg PO BID hepati c 07/04/24 Unknown Rx encephalopathy, cirrhosis #180 tabs spironolactone 100 mg tablet 100 mg PO QAM #90 tabs Unknown Rx (Aldactone) carvedilol 6.25 mg tablet 6.25 mg PO QHS 08/10/24 Unkn own History lactulose 10 gram/15 mL oral 10 g PO QHS 08/10/24 Unkn own History solution lactulose 10 gram/15 mL oral 20 g PO BID 08/10/24 Unkn own History solution peg 3350-electrolytes 236 240 ml PO Q10M #4,000 mL 04/08 Unknown Rx gram-22.74 gram-6.74 gram-5.86 gram solution (Golytely) Allergy/AdvReac Type Severity Reaction Status Date / Time No Known Allergies Allergy Verified 10/16/24 16:43 Family History Other CVA (cerebral vascular accident) Hypertension Surgical History History of esophagogastroduodenoscopy (EGD) Social History household members: spouse, children and other details: 2 grandchildren Smoking Status: Never smoker alcohol intake: never ROS Constitutional Constitutional: Denies fatigue, fever(s), poor appetite, weight gain or weight loss Gastrointestinal Gastrointestinal: Denies belching, bloating, change in bowel habits, change in stool character, chewing difficulty, coffee ground emesis, constipation, cramping, diarrhea, dyspepsia, dysphagia, earlysatiety, excessive flatus, fecalincontinence, heartburn, hematemesis, hematochezia, hemorrhoids, loose stools, melena, nausea, odynophagia, rectal bleeding, tenesmus, vomiting or weight changes Physical Exam Const alert, oriented x3, no apparent distress and healthy appearing General Appearance: cooperative GI normal to inspection, nondistended, normoactive bowel sounds, soft to palpation,non-tender and non-distended Percussion: normal to percussion Rectal Exam: deferred Assessment & Plan Assessment/Plan (1) Pancytopenia: (2) Abdominal pain: (3) Abdominal distension: PLAN: Assessment and Plan Assessment and Plan (1) Cirrhosis: Status: Acute (2) Pancytopenia: Status: Acute (3) Screening for colon cancer: Status: Acute Orders: Orders Hepatitis B Surface Antibody 08/10/24 JENNIFER Mcdonald D61.818 - Other pancytopenia, K74.60 -Unspecified cirrhosis of liver Hepatitis A AB, Total 08/10/24 JENNIFER Mcdonald D61.818 - Other pancytopenia, K74.60 - Unspecified cirrhosis of liver Liver Profile 08/10/24 JENNIFER Mcdonald D61.818 - Other pancytopenia, K74.60 - Unspecified cirrhosis of liver GGTP 08/10/24 JENNIFER Mcdonald D61.818 - Other pancytopenia, K74.60 - Unspecified cirrhosis of liver, R74.8 - Abnormal levels of other serum enzymes CBC W/Diff, Automated 08/10/24 JENNIFER Mcdonald D61.818 - Other pancytopenia, K74.60 - Unspecified cirrhosis of liver Medications: New peg 3350-electrolytes 236-22.74-6.74 -5.86 gram (Golytely) as directed for split dose bowel prep 240 mL PO Q10M 4,000 mL 0RF JENNIFER Mcdonald Changed From lactulose 10 grams (15 mL) PO DAILY 473 mL 3RF To lactulose [address] Santino Marie, Plan 68-year-old female with a history of cirrhosis who presents for one-month follow-up after initiation of spironolactone and titration of lactulose. Since her last visit, she has noted a 14-pound weight loss, improved abdominal distention, and resolution of lower extremity edema, suggesting good diuretic response. She also reports improved bowel regularity, now having 3?4 bowel movements daily on the increased lactulose dose. She denies shortness of breath and reports feeling overall much better.She has not yet completed the recommended laboratory monitoring one week after starting spironolactone and will do so now to assess renal function and electrolytes. Abdominal ultrasound confirmed cirrhosis with trace ascites and no evidence of hepatoma. She has beencounseled on maintaining a low sodium diet and daily weights. She is currently on Lasix, spironolactone, lactulose, rifaximin, and pantoprazole. I recommended she schedule a hepatology consultation with Dr. Maddox for continued management of cirrhosis and further workup. She is also overdue for age- appropriate colorectal cancer screening and will proceed with scheduling a colonoscopy. We will continue current management and reassess in follow-up pending lab results and specialist evaluations. Note: Link To Media speech recognition band straightener software was used to create portions of this document. Sound-alike and misspelled words, as well as other band straightener errors may be contained in the documentation. Patient Instructions: Colonoscopy Consult with Dr. Maddox Continue Lactulose 30ml Qam and 15ml at HS PRN, goal of 2-3 BM daily Continue Aldactone 100mg QD and Furosemide 40mg QD 10/18/24 0654 Cosigner Signature (if applicable): CC: Dr. Angelita Call MD; Santino Marie DO~ Signed [facility]08-06-2025 [facility] Medical Records Department [address] [place] [address] History Physical Exam 10/18/24 0651 MR#: [id number] Acct: [id number] Name: MACY MORALES Rep #: [id number] : 1955 69 From: Santino Marie DO PCP: Dr. Angelita Call MD Status:[facility] Location: [place] [address] HPI - General General Date of Admission: 10/18/24 Date of Service: 10/18/24 Chief Complaint: abdominal pain HPI Narrative MACY MORALES, is a 69 F who presents with the Chief Complaint: abdominal pain OV 07/04/2024 68-year-old female presents for follow-up [...] KUB x-ray today 2. ABD Ultrasound call [phone] to schedule 3. Gastric Emptying Study call [phone] to schedule 4. Resume pantoprazole 40mg once daily 5. Daily weights, contact office with >5lb weight gain 6. 2g Sodium Diet 7. Start Aldactone 100mg daily 8. Complete labs in 1 week (BMP) 9. Start Xifaxan 550mg twice a day, if not covered by insurance we can apply for patient assistance 10. Follow-up in one month 11. Continue Furosemide 40mg once daily 07/06/2023 HEPATITIS A-IgM Negative Negative HEP B SURF AG Negative Negative HEP B CORE,IgM Negative Negative HEP C VIRUS AB Non Reactive Non Reactive JACINTO: 07/07/2023 negative EGD 07/07/2023 - Grade I esophageal varices. - Portal hypertensive gastropathy. GES 08/01/2024 negative ( she takes reglan 5mg TID AC) ABD US 07/06/2024 reveals cirrhosis, no evidence of hepatoma. Small amount of ascites. KUB 07/04/2024 reveals constipation. She should increase Lactulose dose to 30ml every morning and 15ml in the evening if needed. CBC: 07/04/2024 WBC 4.2, HGB 11.7, PLT 66 CMP: 07/04/2024 Na 139, K+ 3.8, BUN 12, Creat 0.72, T. Bili 2.50, AST 80, ALT 34, ALP 211, Albumin 3.5 TSH 07/04/2024 3.780 INR 05/29/2024 1.1 MELD: 11 WEIGHT: down 14lbs since starting Aldactone MEDS: Lasix 40mg QD, Aldactone 100mg QD - she reports she is much better - stools are moving much better, she is now having 3-4 BM daily BP: 146/80, HR: 69 Carvedilol 6.25mg once daily at HS - not taking Norvasc 5mg daily - she has never had a colonoscopy - denies any family h/o colon CA PFS Medical History Thyroid disease Hepatitis Non-smoker History of edema [...] 07/04/24 U nknown Rx release rifaximin 550 mg tablet (Xifaxan) 550 mg PO BID hepatic 0 (more content not included)...[facility]05-20-2025 Nuclear medicine Diagnostic study note [facility] Imaging Services [address] [place] [address] Gastric Emptying Study - 4 HR MR#: [id number] Acct: [id number] Name: MACY MORALES Rep #: [id number] : 1955 F 68 From: Duane Dc MD PCP: Dr. Angelita Call MD Status: REG CLI Study:Gastric Emptying Study - 4 HR Date of E xam: 08/01/24 Exam# [id number] Ordering Dr: Jessica Worthington [employer]ANT-C PROCEDURE: GASTRIC EMPTYING STUDY - 4 HR [...] geometric mean was used to calculate a wpgc-tngudgka-asiej. RADIOPHARMACEUTICAL: Technetium sulfur colloid DOSE 1.1mCi FINDINGS: Percent activity remaining in stomach: 1 hour 68 % (normal 37-90%) 2 hours: 39 % (normal 30-60%) 4 hours: 5 % (normal 0-10%) NM/Gastric Emptying Study - 4 HR IMPRESSION: Normal gastric emptying study. Reading Location: [facility] CC: JENNIFER Worthington; Dr. Angelita Call MD ~ Manager Support: Signed [facility]04-24-2025 Radiology Diagnostic study note [facility] Imaging Services [address] [place] [address] [id number] Abdomen Limited MR#: [id number] Acct: [id number] Name: MACY MORALES Rep #: [id number] : 1955 F 68 From: Duane Dc MD PCP: Dr. Angelita Call MD Status: REG CLI Study:Abdomen Limited Date of Exam: 06/14 07/07 Exam# [id number] Ordering Dr: Jessica Worthington PROCEDURE: ABDOMEN LIMITED [...] upper quadrant and left upperquadrant. Reading Location: [facility] CC: JENNIFER Worthington; Dr. Angelita Call MD ~ Manager Support: Signed [facility]04-22-2025 Radiology Diagnostic study note [facility] Imaging Services [address] [place] [address] Abdomen Single View MR#: [id number] Acct: [id number] Name: MACY MORALES Rep #: [id number] : 1955 F 68 From: Amadeo Romero DO PCP: Dr. Angelita Call MD Status: REG CLI Study:Abdomen Single View Date of Exam: 07/04/24 Exam# [id number] Ordering Dr: Jessica Worthington PROCEDURE: ABDOMEN SINGLE [...] worsen, follow-up imaging is recommended. Reading Location: [facility] CC: JENNIFER Worthington; Dr. Angelita Call MD ~ Manager Support: Signed [facility]04-22-2025 Evaluation note* Diagnosis Onset Date Resolution Status Admit Date Abdominal distension acute Apri l 2024 10:53am Abdominal pain acute June 10:53am Cirrhosis acute July 04 10:53am Cirrhosis acute August 10, 2024 8:59am Pancytopenia acute August 10 8:59am Screening for colon cancer acute August 10, 2024 8:59am Abdominal distension acute Augu 2024 6:40am Abdominal pain acute October 6:40am Pancytopenia acute October 18, 2024 6:40am [facility] Work Phone: [phone]) 759-441303-27-2025 Radiology Diagnostic study note [facility] Imaging Services [address] [place] [address] Abdomen Limited MR#: [id number] Acct: [id number] Name: MACY MORALES Rep #: [id number] : 1955 F 68 From: Teddy Rice MD PCP: Dr. Angelita Call MD Status: REG CLI Study:Abdomen Limited Date of Exam: 05/14 09/06 Exam# [id number] Ordering Dr: Yasmeen Marie DO EXAM: Ultrasound [...] upper quadrant, right lower quadrant and left lowerquadrant. US/Abdomen Limited IMPRESSION: Study is limited by [...] is obscured by bowel gas. Reading Location: [facility] CC: Dr. Angelita Call MD; Santino Friend, DO ~ Manager Support: Signed [facility]03-17-2025 Evaluation note* Diagnosis Onset Date Resolution Status Admit Date Cirrhosis acute May 29 10:02am Fatty liver disease, nonalcoholic ac flandreau May 29, 2024 10:02am Thrombocytopenia acute May 292024 10:02am [facility] Work Phone: 1(466) 221-148903-17-2025 Evaluation note* Diagnosis Onset Date Resolution Status Admit Date Cirrhosis acute May 29 10:02am Fatty liver disease, nonalcoholic ac flandreau May 29, 2024 10:02am Thrombocytopenia acute May 292024 10:02am Abdominal distension acute Apri l 2024 10:53am Abdominal pain acute June 10:53am Cirrhosis acute July 04 10:53am [facility] Work Phone: 1([phone]) 160-976503-17-2025 Evaluation note* Diagnosis Onset Date Resolution Status Admit Date Cirrhosis acute May 29 10:02am Fatty liver disease, nonalcoholic ac flandreau May 29, 2024 10:02am Thrombocytopenia acute May 292024 10:02am Abdominal distension acute Apri l 2024 10:53am Abdominal pain acute June 10:53am Cirrhosis acute July 04 10:53am Cirrhosis acute August 10, 2024 8:59am Pancytopenia acute August 10 8:59am Screening for colon cancer acute August 10, 2024 8:59am [facility] Work Phone: [phone]) 618-142606-26-2024 History of Present illness Narrative* Mina Lopez, RT(R) - 09/08/2023 12:20 PM EDT Radiology Service Progress Note PATIENT NAME: Mcay Morales DATE OF SERVICE: September 08, 2023 [...] PATIENT PRESENTS WITH AN IMPLANTABLE OR ATTACHED SLEEP SCIENTIST: No RADIOLOGY DEPARTMENT: General X-ray: Exam(s) Completed: Upper Extremity X- Ray(s): Wrist, right and Hand, right PERIPHERAL IV DATA: Not applicable SIGNED BY: JULES Gore) September 08, 2023 12:16 PM documented in this encounterSt. [facility]24 NoteHNO ID: [id number] Author: MINA LOPEZ RT(R) Service: ? Author Type: Net Software Developer Type: Progress Notes Filed: 09/08/2023 12:26 Note [...] PATIENT PRESENTS WITH AN IMPLANTABLE OR ATTACHED SLEEP SCIENTIST: No RADIOLOGY DEPARTMENT: General X-ray: Exam(s) Completed: Upper Extremity X-Ray(s): Wrist, right and Hand, right PERIPHERAL IV DATA: Not applicable SIGNED BY: JULES Gore) September 08, 2023 12:16 [facility]06-26-2024 NoteHNO ID: [id number] Author: BRUCE YU APRN.[facility] Service: ? Author Type: Nurse Practitioner Type: [...] to tenderness. Does have swelling and bruising. Nhphb-yqnq-rphoxpgh. No fractures or surgeries in the past. [...] long-term current use of insulin (HCC) 04/28/2021 - COVID-19 02/05/2020 - Obesity, Class [...] She is alert. ASSESSMENT/PLAN: (more content not included)...[facility]06-26-2024 History of Present illness Narrative* Bruce Yu APRN.I&C TECH - 09/08/2023 12:07 PM EDT Subjective HPI Nontoxic-appearing female presents urgent care chief complaint right hand or wrist injury. Durationof symptoms 2 days. Associated symptoms right wrist and hand pain. Patient states fell 2 days ago and landed on outstretched wrist. Presents today for evaluation. No numbness no tingling. No decreasesensation. Decreased range of motion due to tenderness. Does have swelling and bruising. Htnur-wtpe-oyhfsiki. No fractures or surgeries in the past. [...] complication, without long-term current use of insulin ([facility]) 04/28/2021 COVID-19 02/05/2020 Obesity, Class II, BMI [...] of care. This note was generated using Link To Media software. It may contain errors in wording, punctuation, or spelling. Bruce Yu APRN.DONNY documented in this encounterSt. [facility]05-28-2024 Telephone encounter Note * Telephone Encounter - Varghese Mcmahan MA - 08/10/2023 11:42 AM EDT Patient failed to cancel today's appointment with PCP and no showed. Letter printed and mailed. Varghese Mcmahan MA [facility]05-28-2024 Miscellaneous Notes* Telephone Encounter - Varghese Mcmahan MA - 08/10/2023 11:42 AM EDT Patient failed to cancel today's appointment with PCP and no showed. Letter printed and mailed. Varghese Mcmahan MA documented in this encounterSt. Mary'[facility]05-03-2024 Miscellaneous Notes* Telephone Encounter - Som Valadez RN - 07/16/2023 1:37 PM EDT Called and spoke with pt who speaks Dominican. Went over results and Ana's information and instructions. Pt appeared to understand. She states the hospital gave her a lot, a lot of IV fluids. Pt willcall back if swelling does not improve. * Telephone Encounter - Som Valadez RN - 07/16/2023 1:36 PM EDT ----- Message from Ana Browning APRN.I&C TECH sent at 07/16/2023 12:34 PM EDT ----- [...] improve or sooner if any worsening. Ana M Alie, UNIX ARCHITECT.I&C TECH documented in this encounterSt. Mary'[facility]05-03-2024 Telephone encounter Note * Telephone Encounter - Som Valadez RN - 07/16/2023 1:37 PM EDT Called and spoke with pt who speaks Dominican. Went over results and Ana's information and instructions. Pt appeared to understand. She states the hospital gave her a lot, a lot of IV fluids. Pt willcall back if swelling does not improve. [facility]05-03-2024 Telephone encounter Note* Telephone Encounter - Som Valadez RN - 07/16/2023 1:36 PM EDT ----- Message from Ana Browning APRN.I&C TECH sent at 07/16/2023 12:34 PM EDT ----- [...] or sooner if any worsening. Ana Browning APRN.I&C TECH [facility]04-30-2024 History of Present illness Narrative* Giancarlo Red, RT(R) - 07/13/2023 11:20 AM EDT Radiology [...] PATIENT PRESENTS WITH AN IMPLANTABLE OR ATTACHED SLEEP SCIENTIST: No RADIOLOGY DEPARTMENT: General X-ray: Exam(s) Completed: Chest X-Ray PERIPHERAL IV DATA: Not applicable SIGNED BY: RT Maddie(Yasmeen) July 13, 2023 11:16 AM documented in this encounterSt. Mary'[facility]04-30-2024 NoteHNO ID: [id number] Author: GIANCARLO RED RT(R) Service: Radiology Author [...] PATIENT PRESENTS WITH AN IMPLANTABLE OR ATTACHED SLEEP SCIENTIST: No RADIOLOGY DEPARTMENT: General X-ray: Exam(s) Completed: Chest X-Ray PERIPHERAL IV DATA: Not applicable SIGNED BY: RT Maddie(Yasmeen) July 13, 2023 11:16 [facility]04-30-2024 NoteHNO ID: [id number] Author: ANA BROWNING APRN.I&C TECH Service: ? Author Type: Nurse Practitioner Type: Progress Notes Filed: 07/13/2023 11:38 Note Text: CC: Patient presents with: Hospital F/U HPI Macy Morales is a 67 year old female who presents today with her daughter for above. Patient speaks some Dominican, daughter is helping with any necessary translations. They declined science interpreter phone. Patient was admitted to [facility] from 07/05 to 07/08 for VIKA. [...] Grandmother No Known P (more content not included)...[facility]04-30-2024 History of Present illness Narrative* Ana Browning Cassius, UNIX ARCHITECT.I&C TECH - 07/13/2023 10:33 AM EDT CC: Patient presents with: Hospital F/U [facility] Macy Morales is a 67 year old female who presents today with her daughter for above. Patient speaks some Dominican, daughter is helping with any necessary translations. They declined science interpreter phone. Patient was admitted to [facility] from 07/05 to 07/08 for VIKA. 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 CT indicated liver cirrhosis, Carvedilol [...] complication, without long-term current use of insulin ([facility]) 04/28/2021 COVID-19 02/05/2020 Obesity, Class II, BMI [...] affect normal. DATA REVIEWED: Outside chart from [facility] admission reviewed. ASSESSMENT/PLAN: 1. Shortness of [...] Patient agreeable to treatment plan. Ana Browning APRN.I&C TECH documented in this encounterSt. Mary'[facility]04-26-2024 Discharge summary Author Myrna Delgado [facility] July 09, 2023 2:55pm Note Date/Time July 09, 2023 2:4 2pm [facility] Medical Records Department [address] [place] [address] Instructions for Home/Discharge Instructions 07/09/23 1441 MR#: [id number] Acct: [id number] Name: MACY MORALES Rep #:[id number] : 1955 67 From: Myrna Delgado DO [...] can be placed): Home, Self Care 07/09/23 6283<Electronically signed by Myrna Delgado DO>Myrna Delgado DO CC: Dr. Stephanie Gong DO; Dr. Yecenia Quinonez MD; Dr. Elder Reddy MD ~ Signed [facility] Work Phone: 1([phone]) 980-169404-26-2024 Progress note Author Yecenia Quinonez [facility] July 09, 2023 1:48pm Note Date/Time July 09, 2023 1:4 7pm [facility] Medical Records Department [address] [place] [address] Progress Note - Nephrology 07/09/23 1347 MR#: [id number] Acct: [id number] Name: MACY MORALES Rep #:[id number] : 1955 67 From: Yecenia hernandez MD PCP: Dr. Elder Reddy MD Status:A DM IN Location: [place] [address] Subjective Subjective No new complaints. Objective Data [...] % (Auto) 52.5, Lymph % (Auto) 29.6, [place] % (Auto) 11.1 H, Eos % (Auto) [...] in office in about1 to 2 weeks. 04/26/24 1348 <Electronically signed by Yecenia Quinonez MD> Cosigner Signature (if applicable): CC: ~ Signed [facility] Work Phone: 1(432) 550-466104-25-2024 Progress note Author Myrna Delgado [facility] July 08, 2023 8:39pm Note Date/Time July 08, 2023 8:4 0pm [facility] Medical Records Department [address] [facility] [place] [address] Progress Note - Hospitalist 07/08/232034 MR#: [id number] Acct: [id number] Name: MACY MORALES Rep #:[id number] : 1955 67 From: Myrna Delgado DO PCP: Dr. Elder Reddy MD Status:A DM IN Location: [place] [address] Reason for Visit Reason for Visit: Diagnoses [...] / 3459.50 3326.25 / 3326.25 2027.75 / Output Total Balance 3459.50 / 3459.50 3326.25 / 3326.25 2026.75 / Lab / Micro Data 07/07/23 06:17 [...] distress Constitutional Narrative: Speaks only a little Dominican General Appearance: cooperative, well kempt and well [...] 35 minutes Charges/Coding Visit Charges Inpatient E&M: 52972 Subs Hosp L2 07/08/232038 <Electronically signed by Myrna Delgado DO> Cosigner Signature (if applicable): CC: ~ Signed [facility] Work Phone: 1(408) 103-600904-25-2024 Progress note Author Santino Marie [facility] July 08, 2023 5:51pm Note Date/Time July 08, 2023 5:5 1pm [facility] Medical Records Department [address] [place] [address] Progress Note - GI 07/08/23 1745 MR#: [id number] Acct: [id number] Name: MACY MORALES Rep #:[id number] : 1955 67 From: Santino Marie DO PCP: Dr. Elder Reddy MD Status:A DM IN Location: [facility] UAN581- 1 Subjective Subjective Patient is doing well seems [...] Total 3459.50 / 3459.50 3326.25 / 3326.25 2028.75 / 202.75 Output Total Balance 3459.50 / 3459.50 3326.25 / 3326.25 2027.75 / 2027.75 Lab / Micro Data 07/07/23 06:17 07/08/23 [...] clinically improving. Charges/Coding Visit Charges Inpatient E&M: 67102 Subs Hosp L3 07/08/23 1751 <Electronically signed by Santino Friend DO> Cosigner Signature (if applicable): CC: ~ Signed [facility] Work Phone: 1(260) 552-508504-25-2024 Progress note Author Yecenia Quinonez [facility] July 08, 2023 1:21pm Note Date/Time July 08, 2023 1:2 1pm [facility] Medical Records Department [address] [place] [address] Progress Note - Nephrology 07/08/23 1320 MR#: [id number] Acct: [id number] Name: MACY MORALES Rep #:[id number] : 1955 67 From: Yecenia hernandez MD PCP: Dr. Elder Reddy MD Status:A DM IN Location: [place] [address] Subjective Subjective No new complaints today Objective [...] / 3459.50 3326.25 / 3326.25 2027.75 / 2027. Output Total Balance 3459.50 / 3459.50 3326.25 / 3326.25 / Lab / Micro Data 07/07/23 06:17 07/08/23 06:55 Labs: Laboratory Results - last 24 hr 07/07/23 16:56: Iron 91, TIBC 365, Iron Saturation 24.9, Ferritin 107, Ammonia 14.0, Amylase 67, Lipase 39 07/08/23 06:55: Sodium 141, Potassium 4.7, Chloride [...] Cosigner Signature (if applicable): CC: ~ Signed [facility] Work Phone: 1(458) 165-745604-24-2024 Consult note Author Santino Marie [facility] July 07, 2023 6:17pm Note Date/Time July 07, 2023 6:1 7pm [facility] Medical Records Department [address] [place] [address] Consultation - GI 07/06/23 1813 MR#: [id number] Acct: [id number] Name: MACY MORALES Rep #:[id number] : 1955 67 From: Santino Marie DO [...] 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 Ms. Morales speaks [place] Citizen only but her daughter was present at [...] emesis and blood streaking plus nonbloody diarrhea [facility] Medical History Diabetes Facial droop History of [...] distress Constitutional Narrative: Speaks only a little Dominican General Appearance: cooperative, well kempt and well [...] % (Auto) 54.7, Lymph % (Auto) 21.7, [place] % (Auto) 15.7 H, Eos % (Auto) [...] splenomegaly, cirrhosis Charges/Coding Visit Charges Inpatient E&M: 65515 Init Hosp L3 07/07/231816 <Electronically signed by Santino Marie DO> Cosigner Signature (if applicable): CC: Dr. Elder Reddy MD~ Signed [facility] Work Phone: 1(913) 463-454104-24-2024 Progress note Author Myrna Delgado [facility] July 07, 2023 6:10pm Note Date/Time July 07, 2023 5:4 9pm [facility] Medical Records Department [address] [place] [address] Progress Note - Hospitalist 07/07/23 1746 MR#: [id number] Acct: [id number] Name: MACY MORALES Rep #:[id number] : 1955 67 From: Myrna Delgado DO [...] % (Auto) 54.7, Lymph % (Auto) 21.7, [place] % (Auto) 15.7 H, Eos % (Auto) [...] distress Constitutional Narrative: Speaks only a little Dominican General Appearance: cooperative, well kempt and well [...] 50 minutes Charges/Coding Visit Charges Inpatient E&M: 64089 Subs Hosp L3 07/07/231804 <Electronically signed by Myrna Delgado DO> Cosigner Signature (if applicable): CC: ~ Signed ADDENDUM by Dr. Myrna Delgado DO on 07/07/23 at 1810 Addendum Please reflect: Colitis was ruled out at this time, her antibiotics were stoppedtoday 07/07/231809<Electronically signed by Myrna Delgado DO> Cosigner Signature (if applicable): cc: ~* Signed [facility] Work Phone: 1(811) 544-319704-24-2024 Consult note Author Yecenia Quinonez [facility] July 07, 2023 12:04pm Note Date/Time July 07, 2023 12: 04pm [facility] Medical Records Department [address] [place] [address] Consultation - Nephrology 07/07/23 1201 MR#: [id number] Acct: [id number] Name: MACY MORALES Rep #:[id number] : 1955 67 From: Yecenia hernandez MD [...] was brought in. Primary care is with [facility]. Review of records. It seems she was seen by gastroenterology at [facility] [place], fibrosis score was elevated. Thought to be related to GILBERT. This admission, imaging is consistent with cirrhosis. She was seen by hematology at [facility] [place], had a bone marrow biopsy. From the [...] medications I would assume this is lisinopril. [facility] Medical History Diabetes Facial droop History of [...] % (Auto) 54.7, Lymph % (Auto) 21.7, [place] % (Auto) 15.7 H, Eos % (Auto) [...] applicable): CC: Dr. Elder Reddy MD~ Signed [facility] Work Phone: [phone] 780-519904-24-2024 [facility]04-23-2024 Progress note Author Myrna Delgado [facility] July 06, 2023 6:28pm Note Date/Time July 06, 2023 6:2 8pm [facility] Medical Records Department [address] [place] [address] Progress Note - Hospitalist 07/06/23 181 MR#: [id number] Acct: [id number] Name: MACY MORALES Rep #:[id number] : 1955 67 From: Myrna Delgado DO [...] fact the patient does not speak much Dominican. Patient states she has been having several weeks of intermittent diarrhea, she denies any bloody diarrhea, she denies any weight loss. Patient states she vomited up blood yesterday with the first episode of emesis not afterwards. Patient has been seeing a spoke maker in [place] who has her on omeprazole twice a [...] % (Auto) 65.4, Lymph % (Auto) 19.0, [place] %(Auto) 11.1 H, Eos % (Auto) 3.7, [...] Clarity Clear, Urine pH 5.0, Ur Specific [place] 1.010, Urine Protein Negative, Urine Glucose (UA) [...] 75.3 H, Lymph % (Auto) 14.9 L, [place] % (Auto) 6.9, Eos % (Auto) 1.9, [...] 5:40 EDT Reading Location ID and State: [facility] / [place] , Service support , Abdomen/Pelvis CT 07/06/23 04:16 IMPRESSION: * Findings compatible with ascending colitis. Portal colopathy could also have this appearance, however the pericolic fat stranding suggests an infectious or inflammatory etiology. * Pancolonic diverticulosis without evidence of diverticulitis. * Cirrhosis. Electronically Signed: Stephanie Conde MD at 5:08 EDT , Physical Exam Const alert, oriented [...] 50 minutes Charges/Coding Visit Charges Inpatient E&M: [address] [place] [address] 07/06/231827 <Electronically signed by Myrna Delgado DO> Cosigner Signature (if applicable): CC: ~ Signed [facility] Work Phone: [phone] Telephone encounter Note* Telephone Encounter - Albina Garrison LPN - 07/06/2023 12:18 PM EDT labs rec'd via fax. To pcp to review. Although will try to make contact with pt when she is d/c from [facility] for a hospital follow up. [facility]04-23-2024 Miscellaneous Notes* Telephone Encounter - Albina Garrison LPN - 07/06/2023 12:18 PM EDT labs rec'd via fax. To pcp to review. Although will try to make contact with pt when she is d/c from [facility] for a hospital follow up. * Telephone Encounter - Cassius Ayers RN - 07/06/2023 10:41 AM EDT DaughterIngris, reports patient missed her appt today because she was seen in [facility] ER and admitted to ICU. Ingris is faxing the lab results to pcp. Reports patient was admitted for several reasons, including colitis, and kidney fx at 25%. Reports Dr. Marie will see patient today in the ICU. documented in this encounterSt. [facility] Telephone encounter Note * Telephone Encounter - Cassius Ayers RN - 07/06/2023 10:41 AM EDT DaughterIngris, reports patient missed her appt today because she was seen in [facility] ER and admitted to ICU. [facility] is faxing the lab results to pcp. Reports patient was admitted for several reasons, including colitis, and kidney fx at 25%. Reports Dr. Marie will see patient today in the ICU. 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 Ms. Morales speaks [place] Citizen only but her daughter was present at [...] expected to be greater than 48 hours. [facility] Medical History Diabetes Facial droop History of [...] % (Auto) 65.4, Lymph % (Auto) 19.0, [place] %(Auto) 11.1 H, Eos % (Auto) 3.7, [...] Albumin 3.6, Globulin 4.1, Lipase 43 Imaging [facility] Imaging Services [address] [place] [address] Abdomen/Pelvis without Cont MR#: [id number] Acct: [id number] Name: MACY MORALES Rep #: [id number] : 1955 F 67 From: Stephanie Conde MD PCP: Dr. Elder Reddy MD Status: ADM IN Study: Abdomen/Pelvis without Cont Date of Exam: 07/06/23 Exam# [id number] Ordering Dr: Mayo Mccullough DO INDICATION: abd [...] Signed: Stephanie Conde MD at 5:08 EDT , CC: Dr. 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 Charges/Coding Visit Charges Inpatient E&M: 87871 Init Hosp L3 07/06/23 0604 <Electronically signed by Stephanie Gong DO> Cosigner Signature (if applicable): CC: Dr. Stephanie Gong DO; Dr. Elder Reddy MD~ Signed [facility] Work Phone: 1(949) 357-101604-23-2024 Discharge summary Author [facility] July 06, 2023 5:05am Note Date/Time July 06, 2023 4:2 2am [facility] Medical Records Department [address] [place] [address] Emergency Department Summary 07/06/23 MR#: [id number] Acct: [id number] Name: MACY MORALES Rep #:[id number] : 1955 67 From: Mayo Mccullough DO PCP: Dr. Elder Reddy MD Status:A DM IN Location: ICU ICU06-1 HPI History of Present Illness Chief Complaint: GI Bleed Informant: patient and family Narrative Narrative: Patient is a [place] Citizen-speaking 67-year-old female whose daughter interprets with past [...] is no abdominal pain at this time [facility] Medical History Diabetes Facial droop History of [...] % (Auto) 65.4 Lymph % (Auto) 19.0 [place] % (Auto) 11.1 H Eos % (Auto) [...] and diarrhea Disposition Disposition: Acute Care Hospital [facility] What to do if you have Problems For any increased pain, shortness of breath, bleeding, nausea or vomiting, chestpain, or any unexpected problems, contact your Primary Care Provider. Call [facility] ([phone]) or report to the closest Emergency Room. Call 911 if necessary. 07/06/23 0505 <Electronically signed by Mayo Mccullough DO> Cosigner Signature (if applicable): CC: Dr. Elder Reddy MD ~ Signed [facility] Work Phone: [phone]) 845-578404-22-2024 Telephone encounter Note* Telephone Encounter - Serena [...] called. Daughter voiced understanding. Serena Ramirez RN [facility]04-22-2024 Miscellaneous Notes* Telephone Encounter - Serena Ramirez [...] understanding. Serena Ramirez RN documented in this encounterSt. Mary'[facility]04-[facility] Instructions* Patient Instructions* Cherie Cabello DO - 06/29/2023 4:23 PM EDT Please get blood work done Ultrasound of your liver in 6 months Work on losing weight with a goal of 178 lbs for next visit Focus on eating a Mediterranean diet Start taking Coreg 6.25 mg twice daily and monitor your BP documented in this encounterSt. Mary'[facility]04-16-2024 NoteHNO ID: [id number] Author: CECILIA POWERS MD Service: ? Author Type: Physician Type: Progress Notes Filed: 06/30/2023 10:07 Note Text: FOLLOW-UP VISIT NAME: Macy Morales [facility] NO: [id number] HPI: Macy Morales is a 67 year [...] Value 07/13/2022 97 Potassium (more content not included)...[facility]04-16-2024 History of Present illness Narrative* Cecilia Powers MD - 06/29/2023 3:40 PM EDT [id number] HPI: Macy Morales is a 67 year [...] complication, without long-term current use of insulin ([facility]) 04/28/2021 COVID-19 02/05/2020 Obesity, Class II, BMI [...] note. Cecilia Powers MD documented in this encounterSt. Mary'[facility]04-[facility]-2024 NoteHNO ID: [id number] Author: ?, ?, ? Service: ? Author Type: ? Type: Progress Notes Filed: 07/22/2023 03:03 Note Text: Patient has a wellness appointment with Dr. Reddy 08-10-2023 will discuss colonoscopy at that visit. [facility] History of Present illness Narrative* Gaby Jimenez [...] noted. Jenny Doyle RN documented in this encounterSt. Mary'[facility]04-[facility]-2024 NoteHNO ID: [id number] Author: JENNY DOYLE RN Service: ? Author Type: Registered Nurse Type: Progress Notes Filed: 07/22/2023 03:03 Note Text: COLONOSCOPY PATIENT OUTREACH Action/FYI Colonoscopy Recall Patient identified by Name and : Yes. --- OUTREACH OUTCOME ACTION: Open Access: Telephone call: Pt is overdue for screening colonoscopy. May proceed as open access. Please call pt to schedule. No prior endoscopy noted. Jenny Doyle [facility]NBerger [facility]04-08-2024 NotePatient Outreach (ASWSTR) MACY MORALES ([id number]) 1955 F [facility] Date Time Provider Department 06/21/23 ELDER REDDY [...] right ear with unres*11/30/2022 Encounter Status:Closed by GOLDIE, PRODUSER on 07/22/23[facility] 05-03-2023 Instructions* Patient Instructions* Praisler-Pepe Yuen APRN.CNP - 05/03/2023 1:38 PM EST ASSESSMENT/PLAN: 1. Cough present for greater than 3 weeks - ICD9: 786.2, ICD10: R05.8 (primary diagnosis) - XR CHEST 2V FRONTAL/LAT IMPRESSION: No acute radiographic abnormality. Manager Support: KATELYNN Transcribe Date/Time: May 03 2023 1:32P [...] Discussed expected course of illness Pepe Michel APRN.CNP ACUTE BRONCHITIS: You have acute bronchitis. This [...] days of proper treatment. documented in this encounterSt. Mary'[facility] History of Present illness Narrative* Giancarlo Red RT(R) - 05/03/2023 1:10 PM EST Radiology [...] PATIENT PRESENTS WITH AN IMPLANTABLE OR ATTACHED SLEEP SCIENTIST: No RADIOLOGY DEPARTMENT: General X-ray: Exam(s) Completed: Chest X-Ray PERIPHERAL IV DATA: Not applicable SIGNED BY: JULES Perkins) May 03, 2023 1:09 PM documented in this encounterSt. Mary'[facility]02-[facility]-2024 NoteHNO ID: [id number] Author: GIANCARLO RED RT (R) Service: Radiology Author Type: Technologist Type: Progress [...] PATIENT PRESENTS WITH AN IMPLANTABLE OR ATTACHED SLEEP SCIENTIST: No RADIOLOGY DEPARTMENT: General X-ray: Exam(s) Completed: Chest X-Ray PERIPHERAL IV DATA: Not applicable SIGNED BY: JULES Perkins) May 03, 2023 1:09 [facility]02-19-2024 NoteHNO ID: [id number] Author: PEPE MICHEL APRN.I&C TECH Service: ? Author Type: Nurse Practitioner Type: [...] complication, without long-term current use of insulin ([facility]) 04/28/2021 COVID-19 02/05/2020 Obesity, Class II, BMI [...] 2V FRONTAL/LAT IMPRESSION: No acute radiographic abnormality. Manager Support: KATELYNN Transcribe Date/Time: May 03 2023 1:32P [...] Discussed expected course of illness Pepe Michel APRN.[facility]02-19-2024 History of Present illness Narrative* Pepe Michel APRN.DONNY - 05/03/2023 1:00 PM EST Subjective Cough [...] 2V FRONTAL/LAT IMPRESSION: No acute radiographic abnormality. Manager Support: KATELYNN Transcribe Date/Time: May 03 2023 1:32P [...] Discussed expected course of illness Pepe Michel APRN.I&C TECH documented in this encounterSt. Mary'[facility]02-13-2024 Miscellaneous Notes* Telephone Encounter - Rere Samuel [...] Negative. Continue symptom care. documented in this encounterSt. Mary'S [facility]02-12-2024 NoteHNO ID: [id number] Author: ELDER REDDY MD Service: ? Author Type: Physician Type: Progress Notes Filed: 04/26/2023 17:47 Note Text: This note was created using Novast Laboratoriesriter. Ratna Morales is a 67 year old [...] 287.5, ICD10: D69.6 - CBC Elder Reddy [facility]02-12-2024 History of Present illness Narrative* Elder Reddy MD - 04/26/2023 4:52 PM EST This note was created using Nov[employer] Laboratoriesriter. Ratna Morales is a 67 year old [...] CBC Elder Reddy MD documented in this encounterSt. Mary'[facility]02-[facility]-2024 Miscellaneous Notes* Telephone Encounter - Albina Garrison LPN - 04/22/2023 9:52 AM EST Rec'd fax from [facility]. Pt is having 5 extractions. Pcp reviewed form. This was completed and [facility]. documented in this encounterSt. Mary'S [facility]01-29-2024 NoteHNO ID: [id number] Author: SVETLANA PACHECO RDMS Service: ? Author Type: Net Software Developer Type: Progress Notes Filed: 04/12/2023 10:38 Note [...] PATIENT PRESENTS WITH AN IMPLANTABLE OR ATTACHED SLEEP SCIENTIST: No RADIOLOGY DEPARTMENT: Ultrasound PERIPHERAL IV DATA: Not applicable Called Dr. Saleem's office 04/12/2023 to confirm RUQ to include spleen was the only exam that needed to be completed. Separate spleen order was deleted by Tianna Ng at Dr. Saleem's office. SIGNED BY: Svetlana Pacheco RDMS April 12, 2023 10:34 [facility]01-22-2024 NoteHNO ID: [id number] Author: KATHERINE GOLDSTEIN OD Service: ? Author Type: COMPRESSOR MECHANIC BUS Type: Progress Notes Filed: 04/05/2023 09:54 Note [...] Follow-up in 6 months for DORIS Goldstein, RALPH April 05, 2023 9:53 [facility]01-09-2024 NoteHNO ID: [id number] Author: ANA BROWNING, EFREN.I&C TECH Service: ? Author Type: Nurse Practitioner Type: [...] Exam due on 06/24/2023 (more content not included)...[facility]01-03-2024 NotePatient Outreach (INTMMN) MACY MORALES ([id number]) 1955 F [place] Date Time Provider Department 03/17/23 ELDER REDDY INTENE During your visit today, we recorded the following information about you: Allergies As of Date: 03/17/2023 (No Known Allergies) Date Reviewed: 03/06/2023 Reviewed by: Maddy Dubois - Fully Assessed Visit Diagnosis:Encounter for screening mammogram for breast cancer [Z12.31] Order(s):[facility] SCREENING [[id number]] Order #: [id number] FUTURE Prescriptions as of 03/22/2023 - lisinopril [...] right ear with unres*11/30/2022 Encounter Status:Closed by GOLDIE PRODUSER on 03/22/23[facility] 03-06-2023 History of Present illness Narrative* Sridhar Boles RT(Yasmeen) - 03/06/2023 11:50 AM EST Radiology Service [...] IV DATA: Not applicable SIGNED BY: RT Tan(Yasmeen) March 06, 2023 11:59 AM documented in this encounterSt. Mary'S [facility]12-[facility]-2023 NoteHNO ID: [id number] Author: Sridhar Boles RT(R) Service: ? Author [...] DATA: Not applicable SIGNED BY: RT Tan(R) March 06, 2023 11:59 [facility]12-23-2023 NoteHNO ID: [id number] Author: Igor Kim MD Service: ? Author [...] complication, without long-term current use of insulin ([facility]) 04/28/2021 COVID-19 02/05/2020 Obesity, Class II, BMI [...] the time of the visit. Igor Kim MD'[facility]12-12-2023 Instructions* Patient Instructions* Ana Browning APRN.DONNY - 02/23/2023 10:22 AM EST Eye twitching is likely due to Wakeeney Palsy. If symptoms are getting worse recommend follow-up with your eye doctor documented in this encounterSt. Mary'[facility]12-[facility]-2023 NoteHNO ID: [id number] Author: Ana Browning APRN.DONNY Service: ? Author Type: Nurse Practitioner Type: Progress Notes Filed: 02/23/2023 11:31 AM Note Text: CC: Patient presents with: Eye Muscle Spasms Right Eye HPI Macy Morales is a 67 year old female who presents today for above. 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 All other Wakeeney Palsy symptoms have resolved except for this. Denies photophobia, eye pain, discharge, redness, itching and visual disturbance. Last eye exam was in September, no abnormal findings other than Wakeeney Palsy. Review of Systems HENT: Negative for drooling, facial swelling, trouble swallowing and voice change. Neurological: Negative for tremors, facial asymmetry, speech difficulty, weakness, light-headedness, numbness and headaches. 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 No alarm symptoms or exam findings. Reassurance given. Follow-up with pension agent if symptoms worsen or persist Prescription instructions reviewed with patient as applicable. Potential red flag symptoms discussed with the patient. Reviewed appropriate action plan to take if red flag symptoms occur. Patient agreeable to treatment plan. Ana Browning APRN.[facility]12-12-2023 History of Present illness Narrative* Ana Browning APRN.[facility] - 02/23/2023 10:16 AM EST CC: Patient presents with: Eye Muscle Spasms Right Eye HPI Macy Morales is a 67 year old female who presents today for above. 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 All other Wakeeney Palsy symptoms have resolved except for this. Denies photophobia, eye pain, discharge, redness, itching and visual disturbance. Last eye exam wasin September, no abnormal findings other than Wakeeney Palsy. Review of Systems HENT: Negative for drooling, facial swelling, trouble swallowing and voice change. Neurological: Negative for tremors, facial asymmetry, speech difficulty, weakness, light-headedness, numbness and headaches. 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 No alarm symptoms or exam findings. Reassurance given. Follow-up with pension agent if symptoms worsen or persist Prescription instructions reviewed with patient as applicable. Potential red flag symptoms discussed with the patient. Reviewed appropriate action plan to take if red flag symptoms occur. Patient agreeable to treatment plan. Ana Browning APRN.I&C TECH documented in this encounterSt. Mary'[facility]09-[facility] History of Present illness Narrative* Arie Gaytan, AUD - 11/30/2022 11:00 AM EDT [facility] [employer] [employer] AUDIOLOGIC EVALUATION REPORT Name: Macy Morales [facility]#: [id number] Date of Service: 11/30/2022 Date of : 1955 Age: [age] year old Referred by: Brittani Santana MD Referred for: Evaluation of the cause of disorder of hearing, tinnitus, or balance. Referral documented: In an order in [facility] Patient's major complaints: Hearing loss: [...] evaluation of middle ear function. CPT code: 81824 RIGHT EAR: Normal ME function. LEFT EAR: Normal ME function. ACOUSTIC REFLEXES Description of procedure: This test is an objective measure of auditory and facial nerve pathways. CPT code: 15407, 81231 RIGHT EAR PROBE EAR: (ipsi right stimulus [...] and boneconduction and speech recognition testing. CPT code:39246 RIGHT EAR: Hearing Sensitivity: Hearing essentially within [...] to lower than expected speech understanding, a [place] Citizen word list was used and speech perceptionwas [...] to lower than expected speech understanding, a [place] Citizen word list was used and speech perceptionwas [...] and provided written educational materials. *Consider calling [phone] to schedule an appointment to assess your need for hearing aids. Request a HAE appointment. *Pending medical clearance, patient may want to consider calling [phone] to schedule an appointment in the [facility] Educational Session following medical clearance. * Patient was counseled to maintain a sound enriched environment to assist in managing the tinnitus. Samm Camacho, [facility] Clinical and Senior Hearing Implant Box Chipper copied to: Brittani Santana MD [place] Abbrev- iation Definition Degree of hearing sensitivity dB range WNL within normal limits WNL 0 - 20 SNHL sensorineural hearing loss Mild 20-40 CHL conductive hearing loss Moderate 40-55 MHL mixed hearing loss Moderately-Severe 55-70 WRS word recognition score Severe 70-90 ME middle ear Profound 90 + TM tympanic membrane documented in this encounterSt. Mary'[facility]09-[facility]-2023 NoteHNO ID: [id number] Author: Arie Gaytan AUD Service: ? Author Type: Box Chipper Type: Progress Notes Filed: 11/30/2022 1:00 PM Note Text: [facility] [employer] AUDIOLOGIC EVALUATION REPORT Name: Macy Morales [facility]#: [id number] Date of Service: 11/30/2022 Date of : 1955 Age: [age] year old Referred by: Brittani Santana MD Referred for: Evaluation of the cause of disorder of hearing, tinnitus, or balance. Referral documented: In an order in [facility] Patient's major complaints: Hearing loss: [...] evaluation of middle ear function. CPT code: 25549 RIGHT EAR: Normal ME function. LEFT EAR: Normal ME function. ACOUSTIC REFLEXES Description of procedure: This test is an objective measure of auditory and facial nerve pathways. CPT code: 97076, 11934 RIGHT EAR PROBE EAR: (ipsi right stimulus [...] bone conduction and speech recognition testing. CPT code:35465 RIGHT EAR: Hearing Sensitivity: Hearing essentially within [...] to lower than expected speech understanding, a [place] Citizen word list was used and speech perception [...] to lower than expected speech understanding, a [place] Citizen word list was used and speech perception [...] hearing and have regu (more content not included)...[facility] 11-17-2022 Miscellaneous Notes* Telephone Encounter - Joana [...] you. Joana Gillette LPN documented in this encounterSt. Mary'[facility]08[facility] History of Present illness Narrative* Sridhar Boles [...] 09, 2022 2:47 PM documented in this encounterSt. Mary'S [facility]08-28-2023 NoteHNO ID: [id number] Author: Sridhar Boles RT(Yasmeen) Service: ? Author [...] BY: RT Tan(R) November 09, 2022 2:47 [facility]-2023 NoteHNO ID: [id number] Author: Ana Mccarty APRN.CNP Service: ? Author Type: Nurse Practitioner [...] Patient agreeable to treatment plan Ana Mccarty APRN.CNPBerger Hospital08-08-2023 History of Present illness Narrative* Ana Mccarty APRN.CNP - 10/20/2022 10:27 AM EDT CC Patient [...] agreeable to treatment plan Ana Mccarty APRN.CNP documented in this encounterSt. Mary'[facility]07-[facility]-2023 NoteHNO ID: [id number] Author: Mamie Goldstein APRN.CNP Service: ? Author Type: Nurse Practitioner [...] of stage 4 fibrosis (cirrhosis). Mamie Goldstein APRN.I&C TECH Others/All Fibroscan Fibrosis Risk <7 kPA = [...] Int J Clin Exp Med. 2015 Dec 15;8(10):41480-95. PMID: [id number]; PMCID: [id number]. Chepe Hammonds, Ghislaine BISHNU, Fredi M, Radha F, Keith J, Wendy O, Vee F, Jt M, Denice G, Rita A, Alva E, Annalisa L, Demetrius G, Lakshmi A, Anabelle U, Jennifer S, Cinthia P, Lata V, de Negin V, Antoinette M, Donta CHINCHILLA. Refining the Baveno elastography criteria for the definition of compensated advanced chronic liver disease. J Hepatol. 2020;74(5):6183-0850. doi: 10.1016/j.jhep.2020.11.050. Epub 2019Feb 20. PMID: [id number].[facility]07-25-2023 NoteHNO ID: [id number] Author: Cecilia Powers MD Service: ? Author [...] liver enzymes and thrombocytopenia. Patient follows with hims coder Dr. Lopes for thrombocytopenia. In 2021, platelet [...] lymphoproliferative disorder or abnorma (more content not included)...[facility]07-19-2023 Note HNO ID: [id number] Author: Brittani Santana MD Service: ? Author [...] is 2 out of 6. Brittani Santana [facility]07-19-2023 History of Present illness Narrative* Brittani [...] 6. Brittani Santana MD documented in this encounterSt. [facility]07-[facility]23 Instructions* Patient Instructions* Katherine Goldstein, OD - 09/28/2022 9:16 AM EDT Use Systane ointment (nighttime) or Refresh PM in right eye before patching at night Patch right eye at night (use eye pads and tape) Use Systane Complete or Ultra or Refresh Relieva 3-5 times per day in right eye documented in this encounterSt. Mary'[facility]07-17-2023 NoteHNO ID: [id number] Author: Katherine Goldstein OD Service: ? Author Type: COMPRESSOR MECHANIC BUS Type: Progress Notes Filed: 09/28/2022 9:25 AM [...] 6 months for dry eye check Katherine Goldstein OD September 28, 2022 9:12 [facility]07-17-2023 History of Present illness Narrative* Katherine Goldstein, RALPH - 09/28/2022 9:12 AM EDT 1. Dover's [...] months for dry eye check Katherine Goldstein, OD September 28, 2022 9:12 AM documented in this encounterSt. Mary'[facility]07-10-2023 History of Present illness Narrative* Radha Colbert [...] 21, 2022 10:28 AM documented in this encounterSt. Mary'[facility]07-10-2023 NoteHNO ID: [id number] Author: Radha Colbert RDMS Service: ? Author Type: Casting Machine Adjuster Type: Progress Notes Filed: 09/21/2022 10:29 AM [...] Colbert RDMS RVT September 21, 2022 10:28 [facility]06-27-2023 Miscellaneous Notes* Telephone Encounter - Maddy Lane - 09/08/2022 1:15 PM EDT US and [...] ultrasound. Kavon Lopes DO documented in this encounterSt. Mary'[facility]05-31-2023 Miscellaneous Notes* Telephone Encounter - Yuko Gaspar LPN - 08/12/2022 11:41 AM EDT Patient is scheduled at [facility] 08/24/2022. Yuko Gaspar LPN * Telephone Encounter - Tori Walsh - 08/06/2022 11:28 AM EDT As of this note pt not scheduled. Do not see any documentation in TE or FYIs that [facility] has tried to reach pt * Telephone Encounter - Serena Baires - 08/05/2022 8:56 AM EDT LM for Param to contact patient's daughter to schedule and gave our nurse line for questions/call back. Serena Baires * Telephone Encounter - Yuko Gaspar LPN - 08/05/2022 8:52 AM EDT Please contact Param as directed below (number is below as well) and contact patient to coordinate scheduling. Yuko Gaspar LPN * Telephone Encounter - Tori Walsh - 08/05/2022 8:22 AM EDT As of this note pt not scheduled. Do not see any documentation in TE or FYIs that [facility] has tried to reach pt. * Telephone Encounter - Tori Walsh - 08/03/2022 9:19 AM EDT As of this note pt not yet scheduled * Telephone Encounter - Maddy Quintana Pss - 07/31/2022 3:33 PM EDT Ingris, daughter called back for scheduling. Called Param, left detailed message to schedule BMBX with Sedation. Informed office to contact Daughter, Ingris for scheduling, or our office with any questions. Please leave encounter open until scheduled. * Telephone Encounter - Yuko Gaspar LPN - 07/30/2022 4:28 PM EDT PSS- please contact patient or patient's daughter and Param to assist in scheduling. Yuko Gaspar LPN * Telephone Encounter - Yuko Gaspar LPN - 07/29/2022 8:59 AM EDT Yes, [facility] does CT guided BMBX under sedation. PSS- I left a message for patient to contact our office. Please call [facility] scheduling at [phone], to schedule and make sure they are aware that this needs to be under sedation. Please file order. Yuko Gaspar LPN * Telephone Encounter - Kavon Lopes DO - 07/28/2022 8:44 PM EDT Let her know her platelet count has improved. I still recommend bone marrow biopsy. Please contact IR at [facility] to see if they perform CT-guided bone marrow biopsies under sedation. She said she would not undergo a bone marrow biopsy without sedation. Kavon Lopes DO documented in this encounterSt. Mary'[facility]05-09-2023 Miscellaneous Notes* Telephone Encounter - Tori Walsh - 07/21/2022 9:28 AM EDT Spoke with pt using science interpreter services and warm transferred to [facility] * Telephone Encounter - Kym Llanes Pss - 07/20/2022 5:03 PM EDT I called and had RAMBO (Adjunct Physics Instructor services) and Macy on phone to transfer patient to [facility] disease [place] so she could be schedule in Hepatology. When I noticed that the patient's insurance was rejected, it was 4:55 PM so I confirmed the insurance with the patient and told hersomeone would call her tomorrow to get her in touch with [facility], she confirmed this information. Insurance was verified via [employer] and that was scanned into [employer]. Hepatology can not be scheduled by us through the DDQ because it pulls incorrect appointment. Per work leader she stated that patient needs to speak with [facility] [place] and they will schedule the patient with hepatology correctly Please call patient back when able to warm transfer her to [facility] at [phone] * Telephone Encounter - Yuko Gaspar LPN [...] alcohol. Kavon Lopes DO documented in this encounterSt. Mary'S [facility]05-01-2023 Miscellaneous Notes* Telephone Encounter - Serena Viry - 07/13/2022 4:16 PM EDT Check out comments: Labs today. OV in about 2-3 weeks. Patient completed labs. LM for patient to return call to schedule office visit. Utilized [employer] services and scheduled. Serena Baires documented in this encounterSt. Mary'S [facility]05-01-2023 History of Present illness Narrative* Kavon Lopes DO - 07/13/2022 11:26 AM EDT Patient [...] cm in length. Patient had presented to [facility] emergency room on 06/01/2022 with complaints of [...] tricuspid regurgitation. MRI of the brain on 3/21 suggested no intracranial mass, hemorrhage or acute territorial infarct. There was no significant sinus disease. 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 On initial presentation 06/01, patient's white count was 5200. By hospital day 3 it had declined to 2800. The differential revealed the neutrophils went from 2500 on presentation at 1300. Absolute lymphocyte count went from 0440-5894. Platelet count was 100,000 on 06/01 and [...] Denies shortness of breath at rest. Denies RCONIN. CVS: Denies exertional chest pain, PND, orthopnea [...] No jaundice or rash. No petechiae. NEUROLOGIC: aerial crop duster II-XII are grossly intact. No focal motor [...] only differential she has had when at [facility] 05/2022 for Dover's palsy. No prior CBCs [...] which included preparing to see the patient, ognz-og-kiia patient care, completing clinical documentation, obtaining and/or reviewing separately obtained history, performing a medically appropriate examination, counseling and educating the pat ient/family/caregiver, ordering medications, tests, or procedures, communicating with other HCPs (not separately reported), and communicating results to the patient/family/caregiver. Kavon Lopes DO documented in this encounterSt. Mary'S [facility]04-17-2023 Discharge summary Author Evelio Barrow [facility] June 29, 2022 3:04pm Note Date/Time June 29, 2022 3:0 4pm [facility] Physical Therapy [facility] [address] [place] [address] / REHABILITATION SERVICES DISCHARGE SUMMARY MR#: [id number] Acct: [id number] Name: MACY MORALES Rep #: [id number] : 1955 66 From: Evelio Barrow PT, ATC Referring DrSim: Status: REG RCR Insurance: [facility]/[employer] SELF PAY INSURANCE MACY MORALES was seen [...] MEMO TREVIÑO; Dr. Elder Reddy MD ~ [facility] Signed [facility] Work Phone: 1(100) 424-239104-17-2023 Miscellaneous Notes* Telephone Encounter - Maddy Quintana Pss - 06/29/2022 3:09 PM EDT Patient called and scheduled consult * Telephone Encounter - Kym Llanes Pss - 06/29/2022 2:05 PM EDT I called and left patient a message using the [employer] science interpreter services for patient to call backto [...] Thrombocytopenia Referred by. Elder Reddy MD Insurance: [facility] Please advise documented in this encounterSt. Mary'[facility]04-11-2023 History of Present illness Narrative* Katherine Goldstein, [...] continue care with primary care doctor and/or exercise physiologist certified to maintain optimum levels as they are [...] 23, 2022 1:38 PM documented in this encounterSt. Mary'S [facility]04-11-2023 Instructions* Patient Instructions* Katherine Goldstein, OD - 06/23/2022 10:54 AM EDT Use eye patch and tape to keep right eye closed at bedtime Use Systane, Refresh or Blink gel nightly 3-4 times daily and regular artificial tears as needed Use Systane or Refresh ointment at nighttime before putting on patch documented in this encounterSt. Mary'S [facility]04-11-2023 History of Present illness Narrative* Elder Reddy MD - 06/23/2022 9:31 AM EDT This note was created using Novast Laboratoriesriter. Subjective Macy Morales is a 66 year [...] Improving. Elder Reddy MD documented in this encounterSt. Mary'S [facility]04-11-2023 Nurse Note* Varghese Mcmahan MA - 06/23/2022 9:15 AM EDT Patient declined phone science interpreter. Interpretation with her daughter, Ingris, who accompanied patientto office visit. Varghese Mcmahan MA documented in this encounterSt. Mary'S [facility]04-05-2023 Miscellaneous Notes* Telephone Encounter - Gene Amin [...] in visit) due to patient being a [place] Citizen speaker. Thank you! Warm regards, Heaven Daughter [...] Gene Amin RN, BSN documented in this encounterCleveland [id number] Instructions* Patient Instructions* Memo Treviño PA-C - [...] up in 3 weeks documented in this encounterSt. Mary'S [facility]04-04-2023 History of Present illness Narrative* Memo Treviño PA-C - 06/16/2022 9:14 AM EDT Images from the original note were not included. [facility] Name: Macy Morales Age: [age] year old Gender: female Primary Care Provider: Elder Reddy MD Consult requested for Dover's palsy by Ana Mccarty. Recommendations will be communicated via shared medical record or US mail. Chief Complaint:New Patient and Wakeeney Palsy Assessment/Plan: The primary encounter diagnosis was Dover's palsy. A diagnosis of Right ear pain was also pertinent to this visit. This is a pleasant 66-year-old [place] Citizen- speaking female here for evaluation of right-sided Dover's palsy with symptoms beginning on 05/31/2022. She went to the hospital the following day and was admitted on 06/01/2022 - 06/03/2022 for the same reason with differential including stroke vs Dover's palsy. Patient was admitted to [facility], and unfortunately, they have been different medical [...] patient and daughter to obtain imaging from [facility]. Have also requested that staff obtain further [...] Chart, labs,and relevant images reviewed. Interpretor ID: [id number] (Marshall) HPI: This is a pleasant 66-year-old female, with a past medical history of diabetes, hyperlipidemia, andhypertension, presents for evaluation of right-sided Dover's palsy. Patient is [place] Citizen-speaking and the following information was obtained through an science interpreter as well as some assistance from daughter. Patient reports that symptoms began 1 day before she went to the hospital on 06/01/2022. She was mated to [facility] from 3 09/01/2022 to 06/03/2022. Initial concern [...] today for above. Patient was presented to [facility] ER on 06/03 for right sided facial drooping. Admitted for possible stroke. CT head/neck, MRI brain, echocardiogram, otoscopic and fundoscopic exams were all normal. Diagnosed with Wakeeney Palsy. Treated with prednisone 60 mg daily [...] has not scheduled follow-up with neurology or pension agent yet.Evening blood sugars have been in the [...] high Radiology: This note was dictated using [employer] speech recognition software and may contain some [...] which included preparing to see the patient, xtcl-hu-ycpe patient care, completing clinical documentation, obtaining and/or reviewing separately obtained history, performing a medically appropriate examination, counseling and educating the patient/family/caregiver and ordering medications, tests, or procedures. documented in this encounterSt. Mary'S [facility]03-28-2023 History of Present illness Narrative* Ana Mccarty, UNIX ARCHITECT.I&C TECH - 06/09/2022 12:32 PM EDT CC: Patient presents with: [facility] ER follow up: 06/04/2022 PJ Morales is a 66 year old female who presents today for above. Patient was presented to [facility] Chris 06/03 for right sided facial drooping. Admitted for possible stroke. CT head/neck, MRI brain, echocardiogram, otoscopic and fundoscopic exams were all normal. Diagnosed with Wakeeney Palsy. Treated with prednisone 60 mg daily [...] has not scheduled follow-up with neurology or pension agent yet.Evening blood sugars have been in the [...] mouth drooping DATA REVIEWED: Outside chart from [facility] admission reviewed. ASSESSMENT/PLAN: 1. Dover's palsy [...] plan. Ana Mccarty APRN.CNP documented in this encounterSt. Mary'S [facility]03-22-[address] Maddox [facility] June 03, 2022 9:54am Note Date/Time June 03, 2022 9:4 6am [facility] Medical Records Department [address] [place] [address] Instructions for Home/Discharge Instructions 06/03/22 0944 MR#: [id number] Acct: [id number] Name: MACY MORALES Rep #:[id number] : 1955 66 From: Henry Barth PCP: [...] Maddox MD>Henry Maddox MD CC: Dr. Matt Tuossaint MD; Dr. Talia Lopez DO; Dr. Elder Reddy MD ~ Signed [facility] Work Phone: [phone]) 657-678503-21-[address] Lopez [facility] June 02, 2022 4:24pm Note Date/Time June 02, 2022 4:2 4pm [facility] Medical Records Department [address] [place] [address] Telemedicine Confirmation Receipt 06/02/22 MR#: [id number] Acct: [id number] Name: MACY MORALES Rep #:[id number] : 1955 66 From: Talia Lopez DO PCP: Dr. Elder Reddy MD Status:A DM KATINA [facility] Tele[facility] has confirmed receipt of a request for visit. This document confirms receipt of the order initiating the consult. To find the results of the consultation, please view the patient's reports for the scanned Telemed Consult. [facility] Work Phone: [phone] Lopez [facility] June 02, 2022 1:40pm Note Date/Time June 02, 2022 7:4 0am [facility] Medical Records Department [address] [place] [address] Progress Note - Hospitalist 06/02/22 0729 MR#: [id number] Acct: [id number] Name: MACY MORALES Rep #:[id number] : 1955 66 From: Talia Lopez DO PCP: Dr. Elder Reddy MD Status:A DM KATINA [facility] Reason for Visit Reason for Visit: Facial droop Subjective Subjective Patient is a 66-year-old [place] Citizen-speaking female who presented to the emergency department [facility] on 06/01/2022 with right facial droop that [...] presentation. Her lipid panel showed a total [id number]/LDL 86/HDL 76 and triglycerides of 85. Hemoglobin [...] % (Auto) 47.6, Lymph % (Auto) 36.2, [place] % (Auto) 11.9 H, Eos % (Auto) [...] (Auto) 45.8 L, Lymph % (Auto) 37.5, [place] % (Auto) 11.9 H, Eos % (Auto) [...] No demonstrated acute cardiopulmonary process. Electronically Signed: eSbastien Gaspar MD at 19:55 EDT , Physical [...] nerves are within normal limits, patient is [place] Citizen-speaking however able to formulate words well and [...] of discharge Charges/Coding Visit Charges Inpatient E&M: 77285 Subs Hosp L2 06/02/22 1340 <Electronically signed by Talia Lopez DO> Cosigner Signature (if applicable): CC: ~ Signed [facility] Work Phone: [phone]) 872-638803-21-[address] Naqvi [facility] June 01, 2022 11:54pm Note Date/Time June 01, 2022 6:4 0pm [facility] Medical Records Department [address] [place] [address] Emergency Department Summary 06/01/22 MR#: [id number] Acct: [id number] Name: MACY MORALES Rep #:[id number] : 1955 66 From: Ismael Naqvi DO PCP: Dr. Elder Reddy MD Status:A DM KATINA Location: [address] History of Present Illness Chief Complaint: Neuro S/Sx Detail of Chief Complaint: Stroke Informant: patient and family Narrative Narrative: Patient presents to the emergency department with concern for possible stroke. Patient brought in by her daughter and history comes via translation from her daughter. Patient is [place] Citizen-speaking. Patient states that she noticed yesterday that [...] % (Auto) 47.6 Lymph % (Auto) 36.2 [place] % (Auto) 11.9 H Eos % (Auto) [...] (Auto) Neut % (Auto) Lymph % (Auto) [place] % (Auto) Eos % (Auto) Baso % [...] of hypertension, Headache Disposition Disposition: Acute Care [facility] What to do if you have Problems For any increased pain, shortness of breath, bleeding, nausea or vomiting, chestpain, or any unexpected problems, contact your Primary Care Provider. Call [facility] ([phone]) or report to the closest Emergency Room. Call 911 if necessary. 06/01/22 8714 <Electronically signed by Ismael Naqvi DO> Cosigner Signature (if applicable): CC: Dr. Elder Reddy MD ~ Signed [facility] Work Phone: 1(641) 869-422703-21-2023 History and physical note Author Dr. Toussaint [facility] June 01, 2022 11:07pm Note Date/Time June 01, 2022 10: 11pm [facility] Medical Records Department [address] [place] [address] H&P Exam - Hospitalist 06/01/222210 MR#: [id number] Acct: [id number] Name: MACY MORALES Rep #:[id number] : 1955 66 From: Matt Toussaint MD PCP: Dr. Elder Reddy MD Status:A DM KATINA Location: [place] [id number]- [id number] HPI - General General Date of Admission: 06/01/22 Date of Service: 06/01/22 Chief Complaint: Facial droop HPI Narrative MACY MORALES, is a 66 F who [place] Citizen speaking and with a significant medical history of hypertension and diabetes presenting to the emergency department withpersistent facial weakness. Patient reports facial weakness to her left side. Reportedly she was drooling from the left side with drinking water and brushing her teeth. Associated symptom is slurry speech. Further patient reports weakness in left hand. [facility] Medical History Diabetes HTN (hypertension) Home Medications [...] % (Auto) 47.6, Lymph % (Auto) 36.2, [place] % (Auto) 11.9 H, Eos % (Auto) [...] Sebastien Gaspar MD at 19:55 EDT , Assessment [...] SCDs ordered Charges/Coding Visit Charges Inpatient E&M: 60982 Init Hosp L2 06/01/22 3835 <Electronically signed by Matt Toussaint MD> Cosigner Signature (if applicable): CC: Dr. Matt Toussaint MD; Dr. Elder Reddy MD~ Signed [facility] Work Phone: [phone] Miscellaneous Notes* Telephone Encounter - Alexandra Lane - 04/20/2022 12:08 PM EST Patient returned [...] abnormal, recheck in 6 weeks. Ana Mccarty APRN.I&C TECH Component Latest Ref Rng & Units 04/15/2022 [...] 4.200 mIU/L 4.590 (H) documented in this encounterSt. Mary'[facility]01-03-2023 Miscellaneous Notes* Telephone Encounter - Joana Gillette [...] patient. Jenifer Gasca Pss documented in this encounterSt. Mary'S [facility]12-07-2022 Miscellaneous Notes* Telephone Encounter - Rere Samuel [...] Nicolas RN - 02/17/2022 4:39 PM EST Pranav pharmacist Willie calling and noted patient's recent [...] insurance may not cover it Ana Mccarty APRN.CNP * Telephone Encounter - Mary Ramirez - 02/17/2022 1:54 PM EST Macy [...] mg 24 hr tablet documented in this encounterSt. Mary'S [facility]08-22-2022 Instructions* Patient Instructions* Elder Reddy MD - 11/03/2021 3:58 PM EDT Hacer analisis de de naz en ayunas pronto documented in this encounterSt. Mary'S [facility]08-22-2022 History of Present illness Narrative* Elder Reddy MD - 11/03/2021 3:48 PM EDT This note was created using Novast Laboratoriesriter. Subjective Macy Morales is a 66 year [...] intervention Elder Reddy MD documented in this encounterSt. Mary'S [facility]07-13-2022 History of Present illness Narrative* Guerrero Rolon, [facility] - 09/24/2021 1:00 PM EDT Primary Care [...] 10/20/21. Patient verbalized understanding of instructions. Guerrero Rolon PharmD, BCACP Primary Care Clinical Pharmacist [facility] The majority of the pharmacy visit (> 50%) was spent counseling and/or coordinating care for thepatient. [Face to Face] time was 49 minutes. documented in this encounterSt. Mary'S [facility]07-13-2022 Instructions* Patient Instructions* Guerrero Rolon RPh - 09/24/2021 1:00 PM EDT Change metformin to 2 tablets twice daily Continue glipizide at the same dose Check blood sugar once daily: alternate before breakfast and bedtime documented in this encounterSt. Mary'S [facility]07-06-2022 History of Present illness Narrative* JENY Grant - 09/17/2021 11:25 AM EDT Sw met with patient for diabetes ed program. Nurse was not available today to meet with patient. Sw utilized science interpreter service during visit. Hollis-Miner Operator also provided Sw with [place] Citizen version of diabetes resource guide. Sw and [...] dietitian order. 2. Call Medicaid Shared Services [phone] Patient reports that she is open to calling and being screened over the phone for [place] Medicaid. Patient would like phone call for follow up. Sw provided patient with her direct number as well, in case patient has further needs. documented in this encounterSt. Mary'S [facility]07-06-2022 History of Present illness Narrative* Stephanie Humphreys RN - 09/17/2021 11:23 AM EDT DIABETES CARE AND EDUCATION VISIT Location: [place] Type of visit: In person individual PATIENT'S MAIN CONCERN TODAY: Learn more Support person present for education today: none Cognitive ability: Alert and oriented Motivation to learn: Interested Learning barriers identified by educator: language and interview conducted with assistance of the [employer] translation system Method of instruction: written, verbal and audio DIABETES FINDINGS: Meal Planning: briefly reviewed 30-60g carb diet Medications: discussed medications pt was taking and their purpose Physical Activity: encouraged to gently increase as able HANDOUTS: Healthy You: Survival Skills ([place] Citizen) , Healthy You: Planning Healthy Meals ([place] Citizen) and [employer] ([place] Citizen) LEARNING RESPONSE: Healthy eating: Demonstrated understanding/competency today or at previous visit POSSIBLE FUTURE TOPICS: 1. DIABETES CARE AND EDUCATION PLAN: Individual follow-up Time Spent (Minutes): 30 This visit note will be communicated to the healthcare provider via access to shared medical record. SIGNATURE: Stephanie Humphreys RN PATIENT NAME: Macy Morales DATE: September 17, 2021 TIME: 11:50 AM PAGER: documented in this encounter[facility] History of Present illness Narrative* RT Dwaine(R) [...] IV DATA: Not applicable SIGNED BY: RT Dwaine(Yasmeen) September 02, 2021 9:09 AM documented in this encounterSt. [facility] Miscellaneous Notes* Telephone Encounter - Radha Joyner Pss - 08/13/2021 2:53 PM EDT Scheduled 09/03/21 * Telephone Encounter - Zee Trinh - 08/12/2021 10:00 AM EDT Patient called. She would like to schedule her consultation to diabetes education, but since she kermit self pay patient, it wouldn't let me schedule from the order, nor the referral. I created a new financial clearance referral for consult to diabetes education. Will check status of this referral tomorrow. Thank you. Zee Trinh documented in this encounterSt. [facility] Miscellaneous Notes* Telephone Encounter - Arie Swan [...] Repeat in 6 weeks. documented in this encounterSt. [facility] Miscellaneous Notes* Telephone Encounter - ALFRED Beckett - 08/07/2021 3:01 PM EDT Telephoned the patient to schedule med/rev appt. Left a message. * Telephone Encounter - ALFRED Beckett - 08/06/2021 11:21 AM EDT Telephoned the patient to schedule med/rev appt. Left a message documented in this encounterSt. [facility] History of Past illness Narrative* Problem Noted Date Diagnosed Date Resolved Date Elevated TSH 08/05/2021 04/26/2023 Obesity, Class I, BMI 30-34.9 04/28/2021 07/23/2021 documented as of this encounter (statuses as of 04/27/2023) [facility] History of Past illness Narrative* Problem Noted Date Diagnosed Date Resolved Date Elevated TSH 08/05/2021 04/26/2023 Obesity, Class I, BMI 30-34.9 04/28/2021 07/23/2021 documented as of this encounter (statuses as of 04/27/2023) [facility] History of Past illness Narrative* Problem Noted Date Diagnosed Date Resolved Date Elevated TSH 08/05/2021 04/26/2023 Obesity, Class I, BMI 30-34.9 04/28/2021 07/23/2021 documented as of this encounter (statuses as of 05/03/2023) [facility] History of Past illness Narrative* Problem Noted Date Diagnosed Date Resolved Date Elevated TSH 08/05/2021 04/26/2023 Obesity, Class I, BMI 30-34.9 04/28/2021 07/23/2021 documented as of this encounter (statuses as of 06/30/2023) [facility] History of Present illness Narrative* Katherine Goldstein, OD - 07/28/2021 11:09 AM EDT 1. Type 2 diabetes mellitus without retinopathy (HCC) Risk of diabetic changes and vision loss can be minimized by tight control of blood sugar, blood pressure, and cholesterol levels. Educated patient to continue care with primary care doctor and/or exercise physiologist certified to maintain optimum levels as they are [...] 28, 2021 11:09 AM documented in this encounterSt. [facility] Instructions* Patient Instructions* Elder Reddy MD - 07/23/2021 4:19 PM EDT FASTING BLOOD WORK (EN AYUNA) documented in this encounterSt. Mary'[facility] History of Present illness Narrative* Elder Reddy MD - 07/23/2021 3:24 PM EDT This note was created using AlignAlytic[employer]. Subjective Patient presents with: F/U 3 Month Macy Morales is a 65 year old female I am seeing for the first time. She spoke [place] as a 2nd language enough and declined [...] Long-Term Current Use of Insulin ([facility]) Obesity, Class I, Bmi 30-34.9 PAST MEDICAL HISTORY Diagnosis Date Controlled type 2 diabetes mellitus without complication, without long-term current use of insulin ([facility]) 04/28/2021 COVID-19 02/05/2020 Obesity, Class II, BMI [...] Reevaluate. Elder Reddy MD documented in this encounterSt. [facility] History of Past illness Narrative* Problem Noted Date Resolved Date Obesity, Class I, BMI 30-34.9 04/28/2021 documented as of this encounter (statuses as of 07/25/2021) [address]14-2022 History of Past illness Narrative* Problem Noted Date Resolved Date Obesity, Class I, BMI 30-34.9 04/28/2021 documented as of this encounter (statuses as of 07/28/2021) [address]14-2022 History of Past illness Narrative* Problem Noted Date Resolved Date Obesity, Class I, BMI 30-34.9 04/28/2021 documented as of this encounter (statuses as of 08/07/2021) [address]14-2022 History of Past illness Narrative* Problem Noted Date Resolved Date Obesity, Class I, BMI 30-34.9 04/28/2021 documented as of this encounter (statuses as of 08/13/2021) [address]14-2022 History of Past illness Narrative* Problem Noted Date Resolved Date Obesity, Class I, BMI 30-34.9 04/28/2021 documented as of this encounter (statuses as of 09/03/2021) [address]14-2022 History of Past illness Narrative* Problem Noted Date Resolved Date Obesity, Class I, BMI 30-34.9 04/28/2021 documented as of this encounter (statuses as of 09/06/2021) [address]14-2022 History of Past illness Narrative* Problem Noted Date Resolved Date Obesity, Class I, BMI 30-34.9 04/28/2021 documented as of this encounter (statuses as of 09/17/2021) [address]14-2022 History of Past illness Narrative* Problem Noted Date Resolved Date Obesity, Class I, BMI 30-34.9 04/28/2021 documented as of this encounter (statuses as of 09/29/2021) [address]14-2022 History of Past illness Narrative* Problem Noted Date Resolved Date Obesity, Class I, BMI 30-34.9 04/28/2021 documented as of this encounter (statuses as of 10/01/2021) [place] [address] History of Past illness Narrative* Problem Noted Date Resolved Date Obesity, Class I, BMI 30-34.9 04/28/2021 documented as of this encounter (statuses as of 11/03/2021) [facility] History of Past illness Narrative* Problem Noted Date Resolved Date Obesity, Class I, BMI 30-34.9 04/28/2021 documented as of this encounter (statuses as of 02/18/2022) [facility] History of Past illness Narrative* Problem Noted Date Resolved Date Obesity, Class I, BMI 30-34.9 04/28/2021 documented as of this encounter (statuses as of 03/21/2022) [facility] History of Past illness Narrative* Problem Noted Date Resolved Date Obesity, Class I, BMI 30-34.9 04/28/2021 documented as of this encounter (statuses as of 04/13/2022) [facility] History of Past illness Narrative* Problem Noted Date Resolved Date Obesity, Class I, BMI 30-34.9 04/28/2021 documented as of this encounter (statuses as of 04/20/2022) [facility] History of Past illness Narrative* Problem Noted Date Resolved Date Obesity, Class I, BMI 30-34.9 04/28/2021 documented as of this encounter (statuses as of 06/09/2022) [address]14-[address]22 History of Past illness Narrative* Problem Noted Date Resolved Date Obesity, Class I, BMI 30-34.9 04/28/2021 documented as of this encounter (statuses as of 06/16/2022) [address]14-2022 History of Past illness Narrative* Problem Noted Date Resolved Date Obesity, Class I, BMI 30-34.9 04/28/2021 documented as of this encounter (statuses as of 06/17/2022) [address]14-2022 History of Past illness Narrative* Problem Noted Date Resolved Date Obesity, Class I, BMI 30-34.9 04/28/2021 documented as of this encounter (statuses as of 06/23/2022) [facility] History of Past illness Narrative* Problem Noted Date Resolved Date Obesity, Class I, BMI 30-34.9 04/28/2021 documented as of this encounter (statuses as of 06/24/2022) [address]14-2022 History of Past illness Narrative* Problem Noted Date Resolved Date Obesity, Class I, BMI 30-34.9 04/28/2021 documented as of this encounter (statuses as of 06/30/2022) [facility] of Past illness Narrative* Problem Noted Date Resolved Date Obesity, Class I, BMI 30-34.9 04/28/2021 documented as of this encounter (statuses as of 07/13/2022) [address]14-2022 History of Past illness Narrative* Problem Noted Date Resolved Date Obesity, Class I, BMI 30-34.9 04/28/2021 documented as of this encounter (statuses as of 07/14/2022) [facility] of Past illness Narrative* Problem Noted Date Resolved Date Obesity, Class I, BMI 30-34.9 04/28/2021 documented as of this encounter (statuses as of 07/21/2022) [facility] History of Past illness Narrative* Problem Noted Date Resolved Date Obesity, Class I, BMI 30-34.9 04/28/2021 documented as of this encounter (statuses as of 08/12/2022) [address]14-2022 History of Past illness Narrative* Problem Noted Date Resolved Date Obesity, Class I, BMI 30-34.9 04/28/2021 documented as of this encounter (statuses as of 09/08/2022) [address]14-2022 History of Past illness Narrative* Problem Noted Date Diagnosed Date Resolved Date Obesity, Class I, BMI 30-34.9 04/28/2021 07/23/2021 documented as of this encounter (statuses as of 09/28/2022) [address]14-2022 History of Past illness Narrative* Problem Noted Date Diagnosed Date Resolved Date Obesity, Class I, BMI 30-34.9 04/28/2021 07/23/2021 documented as of this encounter (statuses as of 09/30/2022) [address]14-2022 History of Past illness Narrative* Problem Noted Date Diagnosed Date Resolved Date Obesity, Class I, BMI 30-34.9 04/28/2021 07/23/2021 documented as of this encounter (statuses as of 10/20/2022) [facility] History of Past illness Narrative* Problem Noted Date Diagnosed Date Resolved Date Obesity, Class I, BMI 30-34.9 04/28/2021 07/23/2021 documented as of this encounter (statuses as of 11/18/2022) [facility] of Past illness Narrative* Problem Noted Date Diagnosed Date Resolved Date Obesity, Class I, BMI 30-34.9 04/28/2021 07/23/2021 documented as of this encounter (statuses as of 11/30/2022) [address]14-2022 History of Past illness Narrative* Problem Noted Date Diagnosed Date Resolved Date Obesity, Class I, BMI 30-34.9 04/28/2021 07/23/2021 documented as of this encounter (statuses as of 01/18/2023) [facility] History of Past illness Narrative* Problem Noted Date Diagnosed Date Resolved Date Obesity, Class I, BMI 30-34.9 04/28/2021 07/23/2021 documented as of this encounter (statuses as of 01/18/2023) [address]14-2022 History of Past illness Narrative* Problem Noted Date Diagnosed Date Resolved Date Obesity, Class I, BMI 30-34.9 04/28/2021 07/23/2021 documented as of this encounter (statuses as of 02/23/2023) [address]14-2022 History of Past illness Narrative* Problem Noted Date Diagnosed Date Resolved Date Obesity, Class I, BMI 30-34.9 04/28/2021 07/23/2021 documented as of this encounter (statuses as of 04/22/2023) [facility] of [facility] illness Narrative* Problem Noted Date Diagnosed Date Resolved Date Obesity, Class I, BMI 30-34.9 04/28/2021 07/23/2021 documented as of this encounter (statuses as of 04/23/2023) [facility] note Author Shane Nair [facility] Note Date/Time October 18, 2024 8:4 5am [facility] Medical Records Department [address] [place] [address] Anesthesia Postop Eval I 10/18/24 0844 MR#: [id number] Acct: [id number] Name: MACY MORALES Rep #:[id number] : 1955 69 From: Shane Nair PCP: Dr. Angelita Call MD Status:[facility] Race: H Location: [place] [address] Anesthesia: Postop Eval I Current Vital Signs Temperature: 97.8 F Pulse Rate: 78 Blood Pressure: 123/56 Respiratory Rate: 16 Pulse Ox: 99 Oxygen Delivery Method: Room Air Assessment Airway patent: Yes Spontaneous unlabored respirations: Yes Mental status: Asleep nausea: No Vomiting: No Anesthesia Complication: No Fluid Hydration Crystalloid volume administer (ml): 400 Total IV fluid infused: 400 Progress Note Anesthesia document: Postop Eval 1 completed: Yes 10/18/24 0845 <Electronically signed by Shane Nair > Date _ Shane Edwards Signature: Date CC: ~ Signed [facility] Work Phone: Discharge summary Author Mayo Mccullough [facility] July 06, 2023 5:05am Note Date/Time July 06, 2023 4:2 2am [facility] Medical Records Department [address] [place] [address] Emergency Department Summary 07/06/23 MR#: [id number] Acct: [id number] Name: MACY MORALES Rep #:[id number] : 1955 67 From: Mayo Mccullough DO PCP: Dr. Elder Reddy MD Status:A DM IN Location: ICU ICU06-1 HPI History of Present Illness Chief Complaint: GI Bleed Informant: patient and family Narrative Narrative: Patient is a [place] Citizen-speaking 67-year-old female whose daughter interprets with past [...] is no abdominal pain at this time [facility] Medical History Diabetes Facial droop History of [...] % (Auto) 65.4 Lymph % (Auto) 19.0 [place] % (Auto) 11.1 H Eos % (Auto) [...] and diarrhea Disposition Disposition: Acute Care Hospital [facility] What to do if you have Problems For any increased pain, shortness of breath, bleeding, nausea or vomiting, chestpain, or any unexpected problems, contact your Primary Care Provider. Call [facility] ([phone]) or report to the closest Emergency Room. Call 911 if necessary. 07/06/23 0505 <Electronically signed by Mayo Mccullough DO> Cosigner Signature (if applicable): CC: Dr. Elder Reddy MD ~ Signed [facility] Work Phone: Evaluation note* Diagnosis Controlled type 2 diabetes mellitus without complication, without long-term current use of insulin (HCC) [facility]* Diagnosis Controlled type 2 diabetes mellitus without complication, without long-term current use of insulin (HCC)- Primary Obesity, Class II, BMI 35-39.9 Obesity, unspecified Primary hypertension Unspecified essential hypertension Diarrhea, unspecified type Pure hypercholesterolemia documented in this encounter [facility] note* Diagnosis Type 2 diabetes mellitus without retinopathy (HCC)- Primary Type II or unspecified type diabetes mellitus without mention of complication, not stated as uncontrolled Combined forms of age-related cataract of both eyes Other and combined forms of senile cataract Presbyopia documented in this encounter [facility] note* Diagnosis Abnormal liver enzymes Other nonspecific abnormal serum enzyme levels documented in this encounter [facility] note* Diagnosis Elevated TSH- Primary Nonspecific abnormal results of thyroid function study Abnormal liver enzymes Other nonspecific abnormal serum enzyme levels Thrombocytopenia (HCC) Thrombocytopenia, unspecified Controlled type 2 diabetes mellitus without complication, without long-term current use of insulin (HCC) Pure hypercholesterolemia documented in this encounter [facility] note* Diagnosis Controlled type 2 diabetes mellitus without complication, without long-term current use of insulin (HCC)- Primary documented in this encounter [facility] note* Diagnosis Controlled type 2 diabetes mellitus without complication, without long-term current use of insulin (HCC)- Primary Medication management Encounter for long-term (current) use of other medications documented in this encounter [facility] note* Diagnosis Controlled type 2 diabetes mellitus without complication, without long-term current use of insulin (HCC)- Primary Fatty liver Other chronic nonalcoholic liver disease Primary hypertension Unspecified essential hypertension Obesity, Class II, BMI 35-39.9 Obesity, unspecified documented in this encounter [facility] note* Diagnosis Controlled type 2 diabetes mellitus without complication, without long-term current use of insulin (HCC) documented in this encounter [facility] note* Diagnosis Controlled type 2 diabetes mellitus without complication, without long-term current use of insulin (HCC) Pure hypercholesterolemia documented in this encounter [facility] note* Diagnosis Encounter for screening mammogram for breast cancer documented in this encounter [facility] note* Diagnosis Abnormal TSH- Primary Other abnormal clinical finding documented in this encounter [facility] note* Diagnosis Onset Date Resolution Status Acute CVA (cerebrovascular accident) acute Headache acute History of hypertension [facility] Work Phone: Evaluation note* Diagnosis Onset Date Resolution Status Facial droop acute Headache acute History of hypertension acut e Thrombocytopenia acute [facility] Work Phone: Evaluation note* Diagnosis Dover's palsy- Primary Hyperglycemia Other abnormal glucose [facility]* Diagnosis Dover's palsy- Primary Right ear pain Otalgia, unspecified 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* Diagnosis Thrombocytopenia (HCC)- Primary Thrombocytopenia, unspecified [facility] this [facility]* Diagnosis Abnormal liver enzymes- Primary Other nonspecific abnormal serum enzyme levels Thrombocytopenia (HCC) Thrombocytopenia, unspecified [facility] this [facility]* Diagnosis Thrombocytopenia (HCC)- Primary Thrombocytopenia, unspecified Thrombocytopenia (HCC) Thrombocytopenia, unspecified documented [facility] this [facility] noteNo assessment information availableWMercy [facility] Work Phone: Evaluation note* Diagnosis Abnormal liver enzymes- Primary Other nonspecific abnormal serum enzyme levels Thrombocytopenia (HCC) Thrombocytopenia, unspecified [facility] this [facility]* Diagnosis Dover's palsy- Primary Type 2 diabetes mellitus without retinopathy (HCC) Type II or unspecified type diabetes mellitus without mention of complication, not stated as uncontrolled Combined forms of age-related cataract of both eyes Other and combined forms of senile cataract Regular astigmatism of both eyes Regular astigmatism Presbyopia [facility] this [facility]* Diagnosis Right-sided tinnitus- Primary Unspecified tinnitus Facial paralysis Dover's palsy [facility] this [facility]* Diagnosis Primary hypertension- Primary Unspecified essential hypertension Thrombocytopenia (HCC) Thrombocytopenia, unspecified Abnormal liver enzymes Other nonspecific abnormal serum enzyme levels Pure hypercholesterolemia Controlled type 2 diabetes mellitus without complication, without long-term current use of insulin (HCC) Screening for osteoporosis Special screening for osteoporosis Asymptomatic menopause 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* Diagnosis Screening for osteoporosis Special screening for osteoporosis Asymptomatic menopause [facility] this [facility]* Diagnosis Thrombocytopenia (HCC) Thrombocytopenia, unspecified Abnormal liver enzymes Other nonspecific abnormal serum enzyme levels documented in this encounter [facility] note* Diagnosis Eye muscle twitches- Primary Abnormal involuntary movements documented in this encounter [facility] note* Diagnosis Flu-like symptoms- Primary Other general symptoms Controlled type 2 diabetes mellitus without complication, without long-term current use of insulin (HCC) Primary hypertension Unspecified essential hypertension Pure hypercholesterolemia Thrombocytopenia (HCC) Thrombocytopenia, unspecified documented in this encounter [facility] note* Diagnosis Cough present for greater than 3 weeks- Primary Viral bronchitis Acute bronchitis documented in this encounter [facility] note* Diagnosis Cirrhosis of liver without ascites, unspecified hepatic cirrhosis type (HCC)- Primary documented in this encounter [facility] note* Diagnosis Onset Date Resolution Status Acute kidney injury acute Acute renal failure acute Adverse drug reaction acute Fatty liver disease, nonalcoholic acute Hyperbilirubinemia acute Nausea vomiting and diarrhea acute Thrombocytopenia acute [facility] Work Phone: Evaluation note* Diagnosis Shortness of [...] Shortness of breath documented in this encounter [facility] note* Diagnosis Onset Date Resolution Status Fatty liver disease, nonalcoholic acute Thrombocytopenia acute [facility] Work Phone: Evaluation note* Diagnosis Injury of right wrist, initial encounter- Primary Pain of right hand Pain in limb Injury of right wrist, initial encounter Pain of right hand Pain in limb documented in this encounter [facility] note* Diagnosis Injury of right wrist, initial encounter Pain of right hand Pain in limb documented in this encounter [facility] note* Diagnosis Shortness of breath documented in this encounter [facility] note* Diagnosis Cough present for greater than 3 weeks documented in this encounter [facility] note* Diagnosis Acute cough documented in this encounter [facility] for referral (narrative)* Diagnostic Procedure Only (Routine) - Pending Review Specialty Diagnoses / Procedures Referred By Contac t Referred To Contact US IMAGING Diagnoses Abnormal liver enzymes Procedures US ABD RT UPPER QUADRANT US ABDOMINAL REAL TIME W/IMAGE LIMITED Elder Reddy MD [address] [place] [address] Us Imaging Referral ID Status Reason Start Date Expiration Date Visits Requested Visits Authorized [id number] Pending Review Auto-Generat ed Referral 08/05/2021 09/04/2022 1 1 [facility] for referral (narrative)* Diagnostic Procedure Only (Routine) - Pending Review Specialty Diagnoses / Procedures Referred By Maricarmenac t Referred To Contact US IMAGING Diagnoses Abnormal liver enzymes Procedures US ABD RT UPPER QUADRANT US ABDOMINAL REAL TIME W/IMAGE LIMITED Elder Reddy MD [address] [place] [address] Us Imaging Referral ID Status Reason Start Date Expiration Date Visits Requested Visits Authorized [id number] Pending Review Auto-Generat ed Referral 08/05/2021 09/04/2022 1 1 * Consult, Test, Treat (Routine) - Pending Review Specialty Diagnoses / Procedures Referred By Contac t Referred To Contact Diagnoses Controlled type 2 diabetes mellitus without complication, without long-term current use of insulin (HCC) Procedures CONSULT TO DIABETES EDUCATION OFFICE/OUTPATIENT [facility] MDM 60-74 MINUTES Elder Reddy MD [address] [place] [address] [facility] [address] [place] [address] Referral ID Status Reason Start Date Expiration Date Visits Requested Visits Authorized [id number] Pending Review PCP Requested Referral 08/05/2021 08/05/2022 1 1 [facility] for referral (narrative)* Diagnostic Procedure Only (Routine) - Pending Review Specialty Diagnoses / Procedures Referred By Contac t Referred To Contact BR IMAGING Diagnoses Encounter for screening mammogram for breast cancer Procedures LULA SCREENING SCREENING MAMMOGRAPHY BI 2-VIEW BREAST INC CAD Elder Reddy MD [address] [place] [address] [facility] [address] [place] [address] Referral ID Status Reason Start Date Expiration Date Visits Requested Visits Authorized [id number] Pending Review Auto-Generat ed Referral 04/08/2022 05/08/2023 1 1 [facility] for referral (narrative)* Diagnostic Procedure Only (Routine) - Pending Review Specialty Diagnoses / Procedures Referred By Contac t Referred To Contact US IMAGING Diagnoses Thrombocytopenia (HCC) Abnormal liver enzymes Procedures US ABD RIGHT UPPER QUADRANT US ABDOMINAL REAL TIME W/IMAGE LIMITED Kavon Lopes, DO [address] [place] [address] Us Imaging Referral ID Status Reason Start Date Expiration Date Visits Requested Visits Authorized [id number] Pending Review Auto-Generat ed Referral 09/06/2022 10/06/2023 1 1 T [facility] for referral (narrative)* Diagnostic Procedure Only (Routine) - Closed Specialty Diagnoses / Procedures Referred By Contac t Referred To Contact US IMAGING Diagnoses Thrombocytopenia (HCC) Abnormal liver enzymes Procedures US ABD RIGHT UPPER QUADRANT US ABDOMINAL REAL TIME W/IMAGE LIMITED Kavon Lopes, DO [address] [place] [address] [place] [address] Referral ID Status Reason Start Date Expiration Date V isits Requested Visits Authorized [id number] Closed Auto-Generate d Referral 09/09/2022 03/14/2023 1 1 [facility] for referral (narrative)* Diagnostic Procedure Only (Routine) - Pending Review Specialty Diagnoses / Procedures Referred By Contac t Referred To Contact US IMAGING Diagnoses Cirrhosis of liver without ascites, unspecified hepatic cirrhosis type (HCC) Procedures US ABD SPLEEN US ABDOMINAL REAL TIME W/IMAGE LIMITED Cecilia Powers MD [address] [place] [address] [place] [address] Referral ID Status Reason Start Date Expiration Date Visits Requested Visits Authorized [id number] Pending Review Auto-Generat ed Referral 06/29/2023 07/28/2024 1 1 * Diagnostic Procedure Only (Routine) - Pending Review Specialty Diagnoses / Procedures Referred By Contac t Referred To Contact US IMAGING Diagnoses Cirrhosis of liver without ascites, unspecified hepatic cirrhosis type (HCC) Procedures US ABD RIGHT UPPER QUADRANT US ABDOMINAL REAL TIME W/IMAGE LIMITED Cecilia Powers MD [address] [place] [address] Us Imaging [facility] Referral ID Status Reason Start Date Expiration Date Visits Requested Visits Authorized [id number] Pending Review Auto-Generat ed Referral 07/28/2024 1 1 [facility] for referral (narrative)* Diagnostic Procedure Only (Urgent) - Closed Specialty Diagnoses / Procedures Referred By Contac t Referred To Contact XR IMAGING Diagnoses Injury of right wrist, initial encounter Pain of right hand Procedures XR WRIST INJURY 4V PA/LAT/OBL/SCAPH RIGHT RADEX WRIST COMPLETE MINIMUM 3 VIEWS Bruce Yu, UNIX ARCHITECT.I&C TECH [address] [place] [address] [place] [address] Referral ID Status Reason Start Date Expiration Date V isits Requested Visits Authorized [id number] Closed Auto-Generate d Referral 09/08/2023 10/07/2024 1 1 * Diagnostic Procedure Only (Urgent) - Closed Specialty Diagnoses / Procedures Referred By Contac t Referred To Contact XR IMAGING Diagnoses Injury of right wrist, initial encounter Pain of right hand Procedures XR HAND GENERAL 3V PA/LAT/OBL RIGHT RADEX HAND MINIMUM 3 VIEWS Bruce Yu APRN.CNP [address] [place] [address] [place] [address] Referral ID Status Reason Start Date Expiration Date V isits Requested Visits Authorized [id number] Closed Auto-Generate d Referral 09/08/2023 10/07/[address])No reason for referral information availableWMercy Health [facility] Work Phone: Reason for visit Narrative* Diagnostic Procedure Only (Urgent) - Closed Specialty Diagnoses / Procedures Referred By Contac t Referred To Contact XR IMAGING Diagnoses Injury of right wrist, initial encounter Pain of right hand Procedures XR WRIST INJURY 4V PA/LAT/OBL/SCAPH RIGHT RADEX WRIST COMPLETE MINIMUM 3 VIEWS Bruce Yu APRN.I&C TECH [address] [place] [address] [place] [address] Referral ID Status Reason Start Date Expiration Date V isits Requested Visits Authorized [id number] Closed Auto-Generate d Referral 09/08/2023 10/07/[address] [facility] Summary Purpose Family History No Family History Records Found Relationship Condition Age at Onset Recorded Date/T jese Not Specified Hypertension Unknown Cerebrovascular accident (CVA) Unknown Advance Directives No Advanced Directives Records Found Advance Directive Response Recorded Date/ Time Living Will No June 01, 2022 6:50pm Power of Oil Heat Technician No June 01 6:50pm Advance Directive Response Recorded Date/ Time Living Will No June 02, 2022 1:52am Power of Oil Heat Technician No June 02 1:52am Advance Directive Response Recorded Date/ Time Living Will No July 06, 2023 2:40am Power of Oil Heat Technician No July 05 2:40am Advance Directive Response Recorded Date/ Time Living Will No July 06, 2023 5:59am Power of Oil Heat Technician No July 05 5:59am Advance Directive Response Recorded Date/ Time Living Will No August 27, 2023 1:25am Do you have a Healthcare Power of Oil Heat Technician? No August 27, 2023 1:25am Advance Directive Response Recorded Date/ Time Do you have a Healthcare Power of Oil Heat Technician? No October 16, 2024 5:00pm Reason for Referral Specialty Diagnoses / Procedures Referred By Contac t Referred To Contact Ophthalmology Diagnoses Controlled type 2 diabetes mellitus without complication, without long-term current use of insulin (HCC) Procedures CONSULT TO OPHTHALMOLOGY OFFICE/OUTPATIENT [facility] 60-74 MINUTES Elder Reddy MD [address] [place] [address] Referral ID Status Reason Start Date Expiration Date Visits Requested Visits Authorized [id number] Pending Review PCP Requested Referral 07/23/2021 07/23/2022 1 1 Specialty Diagnoses / Procedures Referred By Contac t Referred To Contact Ophthalmology Diagnoses [place]'s palsy Procedures CONSULT TO OPHTHALMOLOGY OFFICE/OUTPATIENT [facility] 60-74 MINUTES Older, APRN. AnaI&C TECH [address] [place] [address] Referral ID Status Reason Start Date Expiration Date Visits Requested Visits Authorized [id number] Pending Review PCP Requested Referral 06/09/2022 06/09/2023 1 1 Specialty Diagnoses / Procedures Referred By Contac t Referred To Contact Neurology Diagnoses [place]'s palsy Procedures CONSULT TO NEUROLOGY OFFICE/OUTPATIENT [facility] 60-74 MINUTES Older, APRN. AnaI&C TECH [address] [place] [address] Referral ID Status Reason Start Date Expiration Date Visits Requested Visits Authorized [id number] Pending Review PCP Requested Referral 06/09/2022 06/09/2023 1 1 Specialty Diagnoses / Procedures Referred By Contac t Referred To Contact [facility] Diagnoses [place]'s palsy Procedures CONSULT TO SPEECH THERAPY OFFICE/OUTPATIENT [facility] 60-74 MINUTES Memo Treviño PA-C [address] [address] [facility] [address] [place] [address] Referral ID Status Reason Start Date Expiration Date Visits Requested Visits Authorized [id number] Pending Review Auto-Generat ed Referral 06/16/2022 06/16/2023 1 1 Specialty Diagnoses / Procedures Referred By Contac t Referred To Contact [facility] Diagnoses [place]'s palsy Procedures CONSULT TO PHYSICAL THERAPY PHYSICAL THERAPY EVALUATION HIGH COMPLEX 45 MINS Memo Treviño PA-C [address] [place] [id number] [facility] [place] [address] [place] [address] Referral ID Status Reason Start Date Expiration Date Visits Requested Visits Authorized [id number] Pending Review Auto-Generat ed Referral 06/16/2022 06/16/2023 1 1 Specialty Diagnoses / Procedures Referred By Contac t Referred To Contact Ent - Otolaryngology Diagnoses Right ear pain Procedures CONSULT TO ENT OFFICE/OUTPATIENT [facility] 60-74 MINUTES Memo Treviño PA-C [address] [place] [id number] Referral ID Status Reason Start Date Expiration Date Visits Requested Visits Authorized [id number] Pending Review PCP Requested Referral 06/16/2022 06/16/2023 1 1 Specialty Diagnoses / Procedures Referred By Contac t Referred To Contact Hematology Diagnoses Thrombocytopenia (HCC) Procedures CONSULT TO HEMATOLOGY OFFICE/OUTPATIENT [facility] 60-74 MINUTES Elder Reddy MD [address] [place] [address] Referral ID Status Reason Start Date Expiration Date Visits Requested Visits Authorized [id number] Pending Review PCP Requested Referral 06/23/2022 06/23/2023 1 1 Specialty Diagnoses / Procedures Referred By Contac t Referred To Contact Diagnoses Abnormal liver enzymes Thrombocytopenia (HCC) Procedures CONSULT TO HEPATOLOGY OFFICE/OUTPATIENT [facility] 60-74 MINUTES Elder Reddy MD [address] [place] [address] Referral ID Status Reason Start Date Expiration Date Visits Requested Visits Authorized [id number] Pending Review PCP Requested Referral 07/20/2022 07/20/2023 1 1 Specialty Diagnoses / Procedures Referred By Contac t Referred To Contact Diagnoses Right-sided tinnitus Procedures HEARING TEST/AUDIOGRAM COMPRE AUDIOMETRY THRESHOLD EVAL SP RECOGNIJ Brittani Santana MD [address] [place] [address] [facility] [address] [place] [address] Referral ID Status Reason Start Date Expiration Date Visits Requested Visits Authorized [id number] Authorized Auto-Generat ed Referral 09/30/2022 12/29/2022 1 1 Specialty Diagnoses / Procedures Referred By Contac t Referred To Contact Procedures HEARING TEST/AUDIOGRAM COMPRE AUDIOMETRY THRESHOLD EVAL SP RECOGNIJ Arie Gaytan, AUD [address] [place] [address] [facility] [address] [place] [address] Referral ID Status Reason Start Date Expiration Date Visits Requested Visits Authorized [id number] Pending Review Auto-Generat ed Referral 11/30/2022 12/01/2023 1 1 Specialty Diagnoses / Procedures Referred By Contac t Referred To Contact Orthopedics Diagnoses Injury of right wrist, initial encounter Procedures CONSULT TO ORTHOPAEDICS OFFICE/OUTPATIENT [facility] 60 MINUTES Bruce Yu APRN.I&C TECH [address] [place] [address] Referral ID Status Reason Start Date Expiration Date Visits Requested Visits Authorized [id number] Authorized PCP Requested Referral 09/08/2023 09/07/2024 1 1 Specialty Diagnoses / Procedures Referred By Contac t Referred To Contact XR IMAGING Diagnoses Injury of right wrist, initial encounter Pain of right hand Procedures XR WRIST INJURY 4V PA/LAT/OBL/SCAPH RIGHT RADEX WRIST COMPLETE MINIMUM 3 VIEWS Bruce Yu, EFREN.I&C TECH [address] [facility] [place] [address] [place] [address] Referral ID Status Reason Start Date Expiration Date V isits Requested Visits Authorized [id number] Closed Auto-Generate d Referral 09/08/2023 10/07/2024 1 1 Specialty Diagnoses / Procedures Referred By Contac t Referred To Contact XR IMAGING Diagnoses Injury of right wrist, initial encounter Pain of right hand Procedures XR HAND GENERAL 3V PA/LAT/OBL RIGHT RADEX HAND MINIMUM 3 VIEWS Bruce Yu APRN.I&C TECH [address] [place] [address] [place] [address] Referral ID Status Reason Start Date Expiration Date V isits Requested Visits Authorized [id number] Closed Auto-Generate d Referral 09/08/2023 10/07/2024 1 1 Medications Administered Section Active Administered Medications - up to 3 most recent administrations Medication Order MAR Action Action Date Dose Rate Site fluorescein-benoxinate 0.25-0.4 % 1 Drop (FLURESS) 1 Drop, BOTH EYES, DIRECTED, Starting on Wed07/28/21 at 1100, Until Wed07/28/21 at 2259, Administer for applanation tonometry. In the event of a Fluress shortage, administer Clyde-Fluor 1 drop into both eyes as directed [...] Screening for colon cancer August 10 8:59am Chief Complaint Admit Date ABD PAIN AND DISTENSION July 04, 2024 10:53am ADD SPLEEN, CIRROHSIS July 06, 2024 7 :17am EARLY SATIETY August 01, 2024 7:42a m 1 M FU August 10, 2024 8:59a m INT LABS August 10, 2024 9:55a m Reason for Visit Admit Date Abdominal distension July 04, 2024 10 :53am Abdominal pain July 04, 2024 10: 53am Cirrhosis July 04, 2024 10: 53am Cirrhosis August 10, 2024 8:59a m Pancytopenia August 10, 2024 8:59a m Screening for colon cancer August 10 8:59am Abdominal distension October 18, 2024 6: 40am Abdominal pain October 18, 2024 6:4 0am Pancytopenia October 18, 2024 6:4 0am Additional Source Comments INFORMATION SOURCE (unrecogn ized section and content) DATE CREATED AUTHOR 10/19/2018 [facility] DATE CREATED AUTHOR AUTHOR'S ORGANIZ ATION 02/05/2020 [facility] DATE CREATED AUTHOR AUTHOR'S ORGANIZ ATION 02/16/2020 [facility] DATE CREATED AUTHOR AUTHOR'S ORGANIZ ATION 2022 [facility] DATE CREATED AUTHOR AUTHOR'S ORGANIZ ATION 09/09/2023 [facility] DATE CREATED AUTHOR AUTHOR'S ORGANIZ ATION 10/25/2024 [facility] Source Comments (unrecognize d section and content) In the event this informatio n is protected by the Federal Confidentiality of Alcohol and Drug Abuse Patient Records regulations: The Federal rules restrict any use of the information to criminally investigate or prosecute any alcohol or drug abuse patient.[facility]In the event this information is protected by the Federal Confidentiality of Alcohol and Drug Abuse Patient Records regulations: The Federal rules restrict any use of the information to criminally investigate or prosecute any alcohol or drug abuse patient.[facility] the event this information is protected by the Federal Confidentiality of Alcohol and Drug Abuse Patient Records regulations: The Federal rules restrict any use of the information to criminally investigate or prosecute any alcohol or drug abuse patient.[facility]In the event this information is protected by the Federal Confidentiality of Alcohol and Drug Abuse Patient Records regulations: The Federal rules restrict any use of the information to criminally investigate or prosecute any alcohol or drug abuse patient.[facility]In the event this information is protected by the Federal Confidentiality of Alcohol and Drug Abuse Patient Records regulations: The Federal rules restrict any use of the information to criminally investigate or prosecute any alcohol or drug abuse patient.[facility]In the event this information is protected by the Federal Confidentiality of Alcohol and Drug Abuse Patient Records regulations: The Federal rules restrict any use of the information to criminally investigate or prosecute any alcohol or drug abuse patient.[facility]In the event this information is protected by the Federal Confidentiality of Alcohol and Drug Abuse Patient Records regulations: The Federal rules restrict any use of the information to criminally investigate or prosecute any alcohol or drug abuse patient.[facility]In the event this information is protected by the Federal Confidentiality of Alcohol and Drug Abuse Patient Records regulations: The Federal rules restrict any use of the information to criminally investigate or prosecute any alcohol or drug abuse patient.[facility] the event this information is protected by the Federal Confidentiality of Alcohol and Drug Abuse Patient Records regulations: The Federal rules restrict any use of the information to criminally investigate or prosecute any alcohol or drug abuse patient.[facility]In the event this information is protected by the Federal Confidentiality of Alcohol and Drug Abuse Patient Records regulations: The Federal rules restrict any use of the information to criminally investigate or prosecute any alcohol or drug abuse patient.[facility]In the event this information is protected by the Federal Confidentiality of Alcohol and Drug Abuse Patient Records regulations: The Federal rules restrict any use of the information to criminally investigate or prosecute any alcohol or drug abuse patient.[facility]In the event this information is protected by the Federal Confidentiality of Alcohol and Drug Abuse Patient Records regulations: The Federal rules restrict any use of the information to criminally investigate or prosecute any alcohol or drug abuse patient.[facility] CampusIn the event this information is protected by the Federal Confidentiality of Alcohol and Drug Abuse Patient Records regulations: The Federal rules restrict any use of the information to criminally investigate or prosecute any alcohol or drug abuse patient.[facility] the event this information is protected by the Federal Confidentiality of Alcohol and Drug Abuse Patient Records regulations: The Federal rules restrict any use of the information to criminally investigate or prosecute any alcohol or drug abuse patient.[facility] CampusIn the event this information is protected by the Federal Confidentiality of Alcohol and Drug Abuse Patient Records regulations: The Federal rules restrict any use of the information to criminally investigate or prosecute any alcohol or drug abuse patient.[facility] CampusIn the event this information is protected by the Federal Confidentiality of Alcohol and Drug Abuse Patient Records regulations: The Federal rules restrict any use of the information to criminally investigate or prosecute any alcohol or drug abuse patient.[facility] CampusIn the event this information is protected by the Federal Confidentiality of Alcohol and Drug Abuse Patient Records regulations: The Federal rules restrict any use of the information to criminally investigate or prosecute any alcohol or drug abuse patient.[facility] CampusIn the event this information is protected by the Federal Confidentiality of Alcohol and Drug Abuse Patient Records regulations: The Federal rules restrict any use of the information to criminally investigate or prosecute any alcohol or drug abuse patient.[facility] CampusIn the event this information is protected by the Federal Confidentiality of Alcohol and Drug Abuse Patient Records regulations: The Federal rules restrict any use of the information to criminally investigate or prosecute any alcohol or drug abuse patient.[facility] CampusIn the event this information is protected by the Federal Confidentiality of Alcohol and Drug Abuse Patient Records regulations: The Federal rules restrict any use of the information to criminally investigate or prosecute any alcohol or drug abuse patient.[facility] CampusIn the event this information is protected by the Federal Confidentiality of Alcohol and Drug Abuse Patient Records regulations: The Federal rules restrict any use of the information to criminally investigate or prosecute any alcohol or drug abuse patient.[facility] CampusIn the event this information is protected by the Federal Confidentiality of Alcohol and Drug Abuse Patient Records regulations: The Federal rules restrict any use of the information to criminally investigate or prosecute any alcohol or drug abuse patient.[facility] CampusIn the event this information is protected by the Federal Confidentiality of Alcohol and Drug Abuse Patient Records regulations: The Federal rules restrict any use of the information to criminally investigate or prosecute any alcohol or drug abuse patient.[facility] CampusIn the event this information is protected by the Federal Confidentiality of Alcohol and Drug Abuse Patient Records regulations: The Federal rules restrict any use of the information to criminally investigate or prosecute any alcohol or drug abuse patient.[facility]In the event this information is protected by the Federal Confidentiality of Alcohol and Drug Abuse Patient Records regulations: The Federal rules restrict any use of the information to criminally investigate or prosecute any alcohol or drug abuse patient.[facility]In the event this information is protected by the Federal Confidentiality of Alcohol and Drug Abuse Patient Records regulations: The Federal rules restrict any use of the information to criminally investigate or prosecute any alcohol or drug abuse patient.[facility] CampusIn the event this information is protected by the Federal Confidentiality of Alcohol and Drug Abuse Patient Records regulations: The Federal rules restrict any use of the information to criminally investigate or prosecute any alcohol or drug abuse patient.[facility]In the event this information is protected by the Federal Confidentiality of Alcohol and Drug Abuse Patient Records regulations: The Federal rules restrict any use of the information to criminally investigate or prosecute any alcohol or drug abuse patient.[facility]In the event this information is protected by the Federal Confidentiality of Alcohol and Drug Abuse Patient Records regulations: The Federal rules restrict any use of the information to criminally investigate or prosecute any alcohol or drug abuse patient.[facility]In the event this information is protected by the Federal Confidentiality of Alcohol and Drug Abuse Patient Records regulations: The Federal rules restrict any use of the information to criminally investigate or prosecute any alcohol or drug abuse patient.[facility]In the event this information is protected by the Federal Confidentiality of Alcohol and Drug Abuse Patient Records regulations: The Federal rules restrict any use of the information to criminally investigate or prosecute any alcohol or drug abuse patient.[facility] CampusIn the event this information is protected by the Federal Confidentiality of Alcohol and Drug Abuse Patient Records regulations: The Federal rules restrict any use of the information to criminally investigate or prosecute any alcohol or drug abuse patient.[facility] CampusIn the event this information is protected by the Federal Confidentiality of Alcohol and Drug Abuse Patient Records regulations: The Federal rules restrict any use of the information to criminally investigate or prosecute any alcohol or drug abuse patient.[facility] CampusIn the event this information is protected by the Federal Confidentiality of Alcohol and Drug Abuse Patient Records regulations: The Federal rules restrict any use of the information to criminally investigate or prosecute any alcohol or drug abuse patient.[facility] CampusIn the event this information is protected by the Federal Confidentiality of Alcohol and Drug Abuse Patient Records regulations: The Federal rules restrict any use of the information to criminally investigate or prosecute any alcohol or drug abuse patient.[facility] [place] CampusIn the event this information is protected by the Federal Confidentiality of Alcohol and Drug Abuse Patient Records regulations: The Federal rules restrict any use of the information to criminally investigate or prosecute any alcohol or drug abuse patient.[facility] [place] CampusIn the event this information is protected by the Federal Confidentiality of Alcohol and Drug Abuse Patient Records regulations: The Federal rules restrict any use of the information to criminally investigate or prosecute any alcohol or drug abuse patient.[facility] [place] CampusIn the event this information is protected by the Federal Confidentiality of Alcohol and Drug Abuse Patient Records regulations: The Federal rules restrict any use of the information to criminally investigate or prosecute any alcohol or drug abuse patient.[facility] [place] CampusIn the event this information is protected by the Federal Confidentiality of Alcohol and Drug Abuse Patient Records regulations: The Federal rules restrict any use of the information to criminally investigate or prosecute any alcohol or drug abuse patient.[facility] [place] CampusIn the event this information is protected by the Federal Confidentiality of Alcohol and Drug Abuse Patient Records regulations: The Federal rules restrict any use of the information to criminally investigate or prosecute any alcohol or drug abuse patient.[facility] [place] CampusIn the event this information is protected by the Federal Confidentiality of Alcohol and Drug Abuse Patient Records regulations: The Federal rules restrict any use of the information to criminally investigate or prosecute any alcohol or drug abuse patient.[facility] [place] CampusIn the event this information is protected by the Federal Confidentiality of Alcohol and Drug Abuse Patient Records regulations: The Federal rules restrict any use of the information to criminally investigate or prosecute any alcohol or drug abuse patient.[facility] [place] CampusIn the event this information is protected by the Federal Confidentiality of Alcohol and Drug Abuse Patient Records regulations: The Federal rules restrict any use of the information to criminally investigate or prosecute any alcohol or drug abuse patient.[facility] [place] CampusIn the event this information is protected by the Federal Confidentiality of Alcohol and Drug Abuse Patient Records regulations: The Federal rules restrict any use of the information to criminally investigate or prosecute any alcohol or drug abuse patient.[facility] [place] CampusIn the event this information is protected by the Federal Confidentiality of Alcohol and Drug Abuse Patient Records regulations: The Federal rules restrict any use of the information to criminally investigate or prosecute any alcohol or drug abuse patient.[facility] [place] CampusIn the event this information is protected by the Federal Confidentiality of Alcohol and Drug Abuse Patient Records regulations: The Federal rules restrict any use of the information to criminally investigate or prosecute any alcohol or drug abuse patient.[facility] [place] CampusIn the event this information is protected by the Federal Confidentiality of Alcohol and Drug Abuse Patient Records regulations: The Federal rules restrict any use of the information to criminally investigate or prosecute any alcohol or drug abuse patient.[facility] [place] CampusIn the event this information is protected by the Federal Confidentiality of Alcohol and Drug Abuse Patient Records regulations: The Federal rules restrict any use of the information to criminally investigate or prosecute any alcohol or drug abuse patient.[facility] [place] CampusIn the event this information is protected by the Federal Confidentiality of Alcohol and Drug Abuse Patient Records regulations: The Federal rules restrict any use of the information to criminally investigate or prosecute any alcohol or drug abuse patient.[facility] [place] CampusIn the event this information is protected by the Federal Confidentiality of Alcohol and Drug Abuse Patient Records regulations: The Federal rules restrict any use of the information to criminally investigate or prosecute any alcohol or drug abuse patient.[facility] [place] CampusIn the event this information is protected by the Federal Confidentiality of Alcohol and Drug Abuse Patient Records regulations: The Federal rules restrict any use of the information to criminally investigate or prosecute any alcohol or drug abuse patient.[facility] [place] [facility] Care Teams (unrecognized sec tion and content) Dragger Relationship Specialty Start Date End Date Elder Reddy MD [address] [facility] [place] [address] PCP - General Internal Medicine 04/28/21 Dragger Relationship Specialty Start Date End Date Elder Reddy MD [address] [facility] [place] [address] PCP - General Internal Medicine 04/28/21 Dragger Relationship Specialty Start Date End Date Elder Reddy MD [facility] [place] [address] PCP - General Internal Medicine 04/28/21 Dragger Relationship Specialty Start Date End Date Elder Reddy MD [facility]0 [facility] [place] [address] PCP - General Internal Medicine 04/28/21 Dragger Relationship Specialty Start Date End Date Elder Reddy MD [facility]0 [facility] [place] [address] PCP - General Internal Medicine 04/28/21 Dragger Relationship Specialty Start Date End Date Elder Reddy MD [facility] [place] [address] PCP - General Internal Medicine 04/28/21 Dragger Relationship Specialty Start Date End Date Elder Reddy MD [facility] [place] [address] PCP - General Internal Medicine 04/28/21 Dragger Relationship Specialty Start Date End Date Elder Reddy MD [address] [place] [address] [place] [address] PCP - General Internal Medicine 04/28/21 Dragger Relationship Specialty Start Date End Date Elder Reddy MD [address] [place] [address] PCP - General Internal Medicine 04/28/21 [facility] [address] [place] [address] Pharmacist Pharmacy 09/24/21 Dragger Relationship Specialty Start Date End Date Elder Reddy MD [address] [place] [address] PCP - General Internal Medicine 04/28/21 [facility] [address] [place] [address] Pharmacist Pharmacy 09/24/21 Dragger Relationship Specialty Start Date End Date Elder Reddy MD [address] [place] [address] PCP - General Internal Medicine 04/28/21 [facility] [address] [place] [address] Pharmacist Pharmacy 09/24/21 Dragger Relationship Specialty Start Date End Date Elder Reddy MD [address] [place] [address] PCP - General Internal Medicine 04/28/21 [facility] [address] [place] [address] Pharmacist Pharmacy 09/24/21 Dragger Relationship Specialty Start Date End Date Elder Reddy MD [address] [place] [address] PCP - General Internal Medicine 04/28/21 [facility] [address] [place] [address] Pharmacist Pharmacy 09/24/21 Dragger Relationship Specialty Start Date End Date Elder Reddy MD [address] [place], [place] [address] PCP - General Internal Medicine 04/28/21 Guerrero Rolon, [facility] [address] [place] [address] Pharmacist Pharmacy 09/24/21 Team Status: Active Member Role Status Dates Dr. Elder Reddy MD Primary Care Provider Active Team Status: Active Member Role Status Dates Dr. Ismael Naqvi DO Emergency Provider Active Dr. Elder Reddy MD Primary Care Provider Active Dr. Matt Toussaint MD Admit Provider, Attending Pro vider Active Team Status: Active Member Role Status Dates Dr. Ismael Naqvi DO Emergency Provider Active Dr. Elder Reddy MD Primary Care Provider Active Dr. Matt Toussaint MD Admit Provider, Attending Provider, Other Provider Active Team Status: Active Member Role Status Dates Dr. Elder Reddy MD Primary Care Provider Active Dr. Flip Enriquez MD Attending Provider Active Team Status: Active Member Role Status Dates Dr. Ismael Naqvi DO Emergency Provider Active Dr. Elder Reddy MD Primary Care Provider Active Dr. Matt Toussaint MD Admit Provider, Other Provide r Active Dr. Talia Lopez DO Attending Provider, Other Provide r Active Team Status: Inactive Member Role Status Dates Dr. Ismael Naqvi DO Emergency Provider Active Dr. Elder Reddy MD Primary Care Provider Active Dr. Matt Toussaint MD Admit Provider, Other Provide r Active Dr. Henry Maddox MD Attending Provider Active Dr. Talia Lopez , Other Provider Active Dragger Relationship Specialty Start Date End Date Elder Reddy MD [address] [place], [place] [id number] PCP - General Internal Medicine 04/28/21 Guerrero Rolon, [facility] [address] [place] [address] Pharmacist Pharmacy 09/24/21 Dragger Relationship Specialty Start Date End Date Elder Reddy MD [address] [place] [address] PCP - General Internal Medicine 04/28/21 [facility] [address] [place] [address] Pharmacist Pharmacy 09/24/21 Dragger Relationship Specialty Start Date End Date Elder Reddy MD [address] [place] [address] PCP - General Internal Medicine 04/28/21 [facility] [address] [place] [address] Pharmacist Pharmacy 09/24/21 Dragger Relationship Specialty Start Date End Date Elder Reddy MD [address] [place] [address] PCP - General Internal Medicine 04/28/21 [facility] [address] [place] [address] Pharmacist Pharmacy 09/24/21 Dragger Relationship Specialty Start Date End Date Elder Reddy MD [address] [place] [address] PCP - General Internal Medicine 04/28/21 [facility] [address] [place] [address] Pharmacist Pharmacy 09/24/21 Dragger Relationship Specialty Start Date End Date Elder Reddy MD [address] [place] [address] PCP - General Internal Medicine 04/28/21 [facility] [address] [facility] [place] [address] Pharmacist Pharmacy 09/24/21 Dragger Relationship Specialty Start Date End Date Elder Reddy MD [address] [facility] [place] [address] PCP - General Internal Medicine 04/28/21 [facility] [address] [facility] [place] [address] Pharmacist Pharmacy 09/24/21 Dragger Relationship Specialty Start Date End Date Elder Reddy MD [address] [facility] [place] [address] PCP - General Internal Medicine 04/28/21 [facility] [address] [facility] [place] [address] Pharmacist Pharmacy 09/24/21 Team Status: Active Member Role Status Dates Dr. Ismael Naqvi , DO Emergency Provider Active Dr. Elder Reddy MD Primary Care Provider Active Dr. Matt Toussaint MD Admit Provider, Other Provide r Active Dr. Henry Maddox MD Attending Provider, Other Provi mercedes Active Dr. Talia Lopez , DO Other Provider Active Team Status: Inactive Member Role Status Dates Dr. Elder Reddy MD Primary Care Provider Active KAMILA HAMPTON Attending Provider, Referring Provid er Active Dragger Relationship Specialty Start Date End Date Elder Reddy MD [address] [facility] [place] [address] PCP - General Internal Medicine 04/28/21 Guerrero Rolon, [facility] [address] [facility] [place] [address] Pharmacist Pharmacy 09/24/21 Dragger Relationship Specialty Start Date End Date Elder Reddy MD [address] [facility] [place] [address] PCP - General Internal Medicine 04/28/21 [facility] [address] [place] [address] Pharmacist Pharmacy 09/24/21 Dragger Relationship Specialty Start Date End Date Elder Reddy MD [address] [place] [address] PCP - General Internal Medicine 04/28/21 [facility] [address] [place] [address] Pharmacist Pharmacy 09/24/21 Dragger Relationship Specialty Start Date End Date Elder Reddy MD [address] [place] [address] PCP - General Internal Medicine 04/28/21 [facility] [address] [place] [address] Pharmacist Pharmacy 09/24/21 Dragger Relationship Specialty Start Date End Date Elder Reddy MD [address] [place] [address] PCP - General Internal Medicine 04/28/21 [facility] [address] [place] [address] Pharmacist Pharmacy 09/24/21 Dragger Relationship Specialty Start Date End Date Elder Reddy MD [address] [place] [address] PCP - General Internal Medicine 04/28/21 [facility] [address] [facility] [place] [address] Pharmacist Pharmacy 09/24/21 Dragger Relationship Specialty Start Date End Date Elder Reddy MD [address] [place] [address] PCP - General Internal Medicine 04/28/21 [facility] [address] [place] [address] Pharmacist Pharmacy 09/24/21 Dragger Relationship Specialty Start Date End Date Elder Reddy MD [address] [place] [address] PCP - General Internal Medicine 04/28/21 [facility] [address] [place] [address] Pharmacist Pharmacy 09/24/21 Dragger Relationship Specialty Start Date End Date Elder Reddy MD [address] [place] [address] PCP - General Internal Medicine 04/28/21 [facility] [address] [place] [address] Pharmacist Pharmacy 09/24/21 Dragger Relationship Specialty Start Date End Date Elder Reddy MD [address] [place] [address] PCP - General Internal Medicine 04/28/21 [facility] [address] [place] [address] Pharmacist Pharmacy 09/24/21 Dragger Relationship Specialty Start Date End Date Elder Reddy MD [address] [facility] [place] [address] PCP - General Internal Medicine 04/28/21 [facility] [address] [facility] [place] [address] Pharmacist Pharmacy 09/24/21 Dragger Relationship Specialty Start Date End Date Elder Reddy MD [address] [facility] [place] [address] PCP - General Internal Medicine 04/28/21 [facility] [address] [facility] [place] [address] Pharmacist Pharmacy 09/24/21 Dragger Relationship Specialty Start Date End Date Elder Reddy MD [address] [facility] [place] [address] PCP - General Internal Medicine 04/28/21 Dragger Relationship Specialty Start Date End Date Elder Reddy MD [address] [facility] [place] [address] PCP - General Internal Medicine 04/28/21 Team [...] Active Dr. Myrna Delgado , DO Attending Provider, Other Pro vider Active [...] Dr. Yecenia Quinonez MD Other Provider Active Dragger Relationship Specialty Start Date End Date Elder Reddy MD [address] [facility] [place] [address] PCP - General Internal Medicine 04/28/21 Dragger Relationship Specialty Start Date End Date Eledr Reddy MD [address] [facility] [place] [address] PCP - General Internal Medicine 04/28/21 Team Status: Active Member Role Status Dates Dr. Elder Reddy MD Primary Care Provider Active Dr. Santino Marie , Attending Provider Active Dr. Myrna Delgado , DO Referring Provider Active Team Status: Active Member [...] MD Primary Care Provider Active Ana Browning NP, [employer] Attending Provider Active Dragger Relationship Specialty Start Date End Date Elder Reddy MD [address] [facility] [place] [address] PCP - General Internal Medicine 04/28/21 Dragger Relationship Specialty Start Date End Date Elder Reddy MD [address] [place] [address] PCP - General Internal Medicine 04/28/21 Dragger Relationship Specialty Start Date End Date Angelita Call MD [address] [place] [address] PCP - General Family Medicine 09/08/23 Dragger Relationship Specialty Start Date End Date Angelita Call MD [address] [place] [address] PCP - General Family Medicine 09/08/23 Dragger Relationship Specialty Start Date End Date Elder Reddy MD [address] [place] [address] PCP - General Internal Medicine 04/28/21 09/07/23 Dragger Relationship Specialty Start Date End Date Elder Reddy MD [address] [place] [address] PCP - General Internal Medicine 04/28/21 09/07/23 Guerrero Rolon [facility] [address] [place] [address] Pharmacist Pharmacy 09/24/21 05/05/23 Dragger Relationship Specialty Start Date End Date Elder Reddy MD [address] [place] [address] PCP - General Internal Medicine 04/28/21 09/07/23 Guerrero Rolon, [facility] [address] [place] [address] Pharmacist Pharmacy 09/24/21 05/05/23 Team Status: Active [...] 2024 End: July 04, 2024 Jessica Worthington [employer] Attending Provider Active Start: July 04, 2024 End: July 04, 2024 Team Status: Active Member Role Status Dates Dr. Angelita Call MD Primary Care Provider Active Start: July 06, 2024 Jessica Worthington [employer] Attending Provider Active Start: July 06, 2024 Jessica Worthington [employer] Referring Provider Active Start: July 06, 2024 Team Status: Inactive Member Role Status Dates Dr. Angelita Call MD Primary Care Provider Active Start: July 06, 2024 End: July 06, 2024 Jessica Worthington [employer] Attending Provider Active Start: July 06, 2024 End: July 06, 2024 Jessica Worthington [employer] Referring Provider Active Start: July 06, 2024 End: July 06, 2024 Team Status: Inactive Member Role Status Dates Dr. Angelita Call MD Primary Care Provider Active Start: August 01, 2024 End: August 01, 2024 Jessica Worthington [employer] Attending Provider Active Start: August 01, 2024 End: August 01, 2024 Jessica Worthington , [employer] Referring Provider Active Start: August 01, 2024 End: August 01, 2024 Team Status: Inactive Member Role Status Dates Dr. Angelita Call MD Primary Care Provider Active Start: August 10, 2024 End: August 10, 2024 Dr. Angelita Call MD Referring Provider Active Start: August 10, 2024 End: August 10, 2024 JENNIFER Mcdonald Attending Provider Active Start: August 10, 2024 End: August 10, 2024 Team Status: Inactive Member Role Status Dates Dr. Angelita Call MD Primary Care Provider Active Start: August 10, 2024 End: August 10, 2024 LILLIE McdonaldC Attending Provider Active Start: August 10, 2024 End: August 10, 2024 JENNIFER Mcdonald Referring Provider Active Start: August 10, 2024 End: August 10, 2024 Team Status: Active Member Role/Relationship Status Dates Dr. Angelita Call MD Primary Care Provider Active Team Status: Inactive Member Role/Relationship Status Dates Dr. Angelita Call MD Primary Care Provider Active Start: July 04, 2024 End: July 04, 2024 Dr. Angelita Call MD Attending Provider Active Start: July 04, 2024 End: July 04, 2024 Dr. Angelita Call MD Referring Provider Active Start: July 04, 2024 End: July 04, 2024 Team Status: Inactive Member Role/Relationship Status Dates Dr. Angelita Call MD Primary Care Provider Active Start: July 04, 2024 End: July 04, 2024 Dr. Angelita Call MD Referring Provider Active Start: July 04, 2024 End: July 04, 2024 LILLIE McdonaldC Attending Provider Active Start: July 04, 2024 End: July 04, 2024 Team Status: Inactive Member Role/Relationship Status Dates Dr. Angelita Call MD Primary Care Provider Active Start: July 06, 2024 End: July 06, 2024 LILLIE McdonaldC Attending Provider Active Start: July 06, 2024 End: July 06, 2024 Jessica Worthington NP-C Referring Provider Active Start: July 06, 2024 End: July 06, 2024 Team Status: Inactive Member Role/Relationship Status Dates Dr. Angelita Call MD Primary Care Provider Active Start: August 01, 2024 End: August 01, 2024 JENNIFER Mcdonald Attending Provider Active Start: August 01, 2024 End: August 01, 2024 JENNIFER Mcdonald Referring Provider Active Start: August 01, 2024 End: August 01, 2024 Team Status: Inactive Member Role/Relationship Status Dates Dr. Angelita Call MD Primary Care Provider Active Start: August 10, 2024 End: August 10, 2024 Dr. Angelita Call MD Referring Provider Active Start: August 10, 2024 End: August 10, 2024 JENNIFER Mcdonald Attending Provider Active Start: August 10, 2024 End: August 10, 2024 Team Status: Inactive Member Role/Relationship Status Dates Dr. Angelita Call MD Primary Care Provider Active Start: August 10, 2024 End: August 10, 2024 JENNIFER Mcdonald Attending Provider Active Start: August 10, 2024 End: August 10, 2024 JENNIFER Mcdonald Referring Provider Active Start: August 10, 2024 End: August 10, 2024 Team Status: Inactive Member Role/Relationship Status Dates Dr. Angelita Call MD Primary Care Provider Active Start: October 18, 2024 End: October 18, 2024 Dr. Angelita Call MD Referring Provider Active Start: October 18, 2024 End: October 18, 2024 Dr. Santino Marie DO Attending Provider Active Start: October 18, 2024 End: October 18, 2024 Team Status: Active Member Role/Relationship Status Dates Dr. Angelita Call MD Primary Care Provider Active Start: October 18, 2024 Dr. Angelita Call MD Referring Provider Active Start: October 18, 2024 Dr. Santino Marie DO Attending Provider Active Start: October 18, 2024 Dr. Santino Marie DO Other Provider Active St art: October 18, 2024 Reason for Visit (unrecogniz ed section and content) Reason Comments Radiology US Specialty Diagnoses / Procedures Referred By Contac t Referred To Contact US IMAGING Diagnoses Thrombocytopenia (HCC) Abnormal liver enzymes Procedures US ABD RIGHT UPPER QUADRANT US ABDOMINAL REAL TIME W/IMAGE LIMITED Moses Kavon Israel, DO [address] [place] [address] [place] [address] Referral ID Status Reason Start Date Expiration Date V isits Requested Visits Authorized [id number] Closed Auto-Generate d Referral 09/09/2022 03/14/2023 1 1 Reason Comments F/U 3 Month Specialty Diagnoses / Procedures Referred By Paul t Referred To Contact Diagnoses appoitments Procedures [facility] Status Reason Start Date Expiration Date V isits Requested Visits Authorized [id number] Closed Patient Cleared - Qualified 100% FAS 01/28/2021 04/28/2021 99 99 Reason Comments Diabetes Specialty Diagnoses / Procedures Referred By Paul langford Referred To Contact Diagnoses Encounter for screening for malignant neoplasm of colon Colonsocpy screening Procedures patient Elder Reddy MD [address] [place], [place] [id number] [facility] Referral ID Status Reason Start Date Expiration Date Visits Requested Visits Authorized [id number] Authorized Patient Cleared - Qualified 100% FAS 06/06/2021 09/04/2021 99 99 Reason Comments New Pharmacy-med review Reason Comments Appointment Specialty Diagnoses / Procedures Referred By Paul langford Referred To Contact Diagnoses consultation to diabetes education Procedures consult to diabetes education Elder Reddy MD [address] [place] [phone] [facility] Referral ID Status Reason Start Date Expiration Date Visits Requested Visits Authorized [id number] Authorized Patient Cleared - Qualified 100% FAS 08/12/2021 08/12/2022 99 99 Reason Comments Results, Lab Reason Comments Allied Health Visit DM Specialty Diagnoses / Procedures Referred By Paul langford Referred To Contact Diagnoses consultation to diabetes education Procedures consult to diabetes education Elder Reddy MD [address] [place] [id number] [facility] Reason Comments F/U 3 Month Specialty Diagnoses / Procedures Referred By Paul t Referred To Contact Internal Medicine / INTERNAL MEDICINE Diagnoses 3 month follow up Procedures 4C EST Elder Reddy MD [address] [place] [address] Elder Reddy MD [address] [place] [address] Referral ID Status Reason Start Date Expiration Date Visits Requested Visits Authorized [id number] Pending Review Financial Clearance Required - Self Pay 11/03/2021 02/01/2022 1 1 Reason Comments Medication Request Reason Onset Date Comments Refill Request 03/17/2022 Reason Comments Results Reason Comments [facility] follow up 06/04/2022 Reason Comments New Patient [place] Palsy Specialty Diagnoses / Procedures Referred By Contac t Referred To Contact Neurology Diagnoses [place]'s palsy Procedures CONSULT TO NEUROLOGY OFFICE/OUTPATIENT NEW HIGH MDM 60-74 MINUTES Older, Ana, [employer] ARCH[employer] TECH [address] [place] [address] Referral ID Status Reason Start Date Expiration Date Visits Requested Visits Authorized [id number] Pending Review PCP Requested Referral 06/09/2022 06/09/2023 1 1 Reason Comments Environmental Coordinator - Other Patient Update Results Reason Comments Follow Up Reason Comments Diabetes Blood sugar: 115A1c: 6.8 Blurred Vision Right Eye Dry Eye Right Eye Eye Itching Right Eye Eye Burning Right Eye Specialty Diagnoses / Procedures Referred By Contac t Referred To Contact Ophthalmology Diagnoses [place]'s palsy Procedures CONSULT TO OPHTHALMOLOGY OFFICE/OUTPATIENT NEW HIGH MDM 60-74 MINUTES Older, Ana, [employer] ARCH[employer] TECH [address] [place] [address] Referral ID Status Reason Start Date Expiration Date Visits Requested Visits Authorized [id number] Pending Review PCP Requested Referral 06/09/2022 06/09/2023 1 1 Reason Comments New Patient Reason Comments New Patient Evaluation Specialty Diagnoses / Procedures Referred By Contac t Referred To Contact Hematology Diagnoses Thrombocytopenia (HCC) Procedures CONSULT TO HEMATOLOGY OFFICE/OUTPATIENT NEW HIGH MDM 60-74 MINUTES Elder Reddy MD [address] [place] [address] Referral ID Status Reason Start Date Expiration Date Visits Requested Visits Authorized [id number] Pending Review PCP Requested Referral 06/23/2022 06/23/2023 1 1 Reason Comments AVS 07/13/22 Reason Comments Results Lab work for thrombo cytopenia Reason Comments Results CBC platelets improv ed Reason Comments Results Normal bone marrow Reason Comments Dry Eye Syndrome Follow Up Reason Comments Consult Right otalgia/ tinni tus, sx since 06/01/22 Specialty Diagnoses / Procedures Referred By Contac t Referred To Contact Ent - Otolaryngology Diagnoses Right ear pain Procedures CONSULT TO ENT OFFICE/OUTPATIENT [facility] 60-74 MINUTES Memo Treviño PA-C [address] [address] Referral ID Status Reason Start Date Expiration Date V isits Requested Visits Authorized [id number] Closed PCP Requested Referral 06/16/2022 06/16/2023 1 1 Reason Onset Date Comments Refill Request 11/17/2022 Specialty Diagnoses / Procedures Referred By Contac t Referred To Contact Diagnoses Right-sided tinnitus Procedures HEARING TEST/AUDIOGRAM COMPRE AUDIOMETRY THRESHOLD EVAL SP Brittani Marcano MD [address], [place] [address] [facility] [address] [place] [address] Referral ID Status Reason Start Date Expiration Date V isits Requested Visits Authorized [id number] Closed Auto-Generate d Referral 09/30/2022 12/29/2022 1 1 Reason Comments Eye Muscle Spasms Right Eye Reason Comments Forms [place] [facility] form Reason Comments Follow Up Reason Comments Cough Cough, wheezing, luz st congestion, and bodyaches x 3 weeks Reason Comments Established Patient Abnormal liver Enzym es Specialty Diagnoses / Procedures Referred By Contac t Referred To Contact Diagnoses Abnormal liver enzymes Thrombocytopenia (HCC) Procedures CONSULT TO HEPATOLOGY OFFICE/OUTPATIENT [facility] 60-74 MINUTES Elder Reddy MD [address] [place] [id number] Referral ID Status Reason Start Date Expiration Date V isits Requested Visits Authorized [id number] Closed PCP Requested Referral 07/20/2022 07/20/2023 1 [...] BE BASED ON THE PRIMARY CLINICAL RECORDS. [employer] [facility]. provides no warranty or guarantee of the accuracy or completeness of information in this document.
--- NOTE | 2024-11-13 13:14 | CT_ITS ---
PROCEDURE: ABDOMEN/PELVIS W IV CONT ONLY 11/13/2024 REASON FOR EXAM: ABDOMINAL PAIN TECHNIQUE: Procedure Code: [id number] Modality: CT Procedure: ABDOMEN/PELVIS W IV CONT ONLY Coronal and Sagittal reconstruction series were provided. CONTRAST: Isovue 370 VOLUME: 100 mL One or more dose reduction techniques were used (e.g., Automated exposure control, adjustment of the mA and/or kV according to patient size, use of iterative reconstruction technique. RADIATION DOSE SUMMARY: CTDlvol: 6.65+ 23.10 mGy DLP: 1073.89 mGycm COMPARISON: 07/06/2024 FINDINGS: Mild/moderate motion limitation through the lung bases. Lung bases: At least trace aortic annular calcification. Borderline mild cardiomegaly. Minimal atelectasis/scarring.. Liver: Cirrhosis. Spleen: Unremarkable. Top-normal size. Tiny hypodensity too small to characterize presumed cyst or hemangioma in the absence of known malignancy. Gallbladder: Nonspecific gallbladder wall thickening. Very mild wall thickening also present 07/06/2024. Pancreas: Fatty infiltration.. Adrenals: Unremarkable. Kidneys: Unremarkable. Bowel: Mild gastric and proximal duodenal wall thickening. No bowel dilatation.. Cecal and ascending colonic wall thickening. Appendix not identified.. Lymph nodes: Unremarkable. Vasculature: Trace to mild atherosclerosis. Contrast mixing artifact versus nonocclusive thrombus in the SMV and portal vein. Recanalized umbilical vein. Upper abdominal collaterals. Distended LEFT ovarian vein, nonspecific but may be seen in the setting of pelvic congestion syndrome given the appropriate clinical context. Peritoneum: Small volume free intraperitoneal fluid. Nonspecific mesenteric and retroperitoneal edema.. Bladder: Unremarkable. Reproductive Organs: Unremarkable. Body Wall: Unremarkable. Bones: Mild spondylosis. Degenerative changes RIGHT hip.. CT/Abdomen/Pelvis W IV Cont ONLY IMPRESSION: 1. Cirrhosis with sequela of portal hypertension including small volume ascites . 2. Question mixing artifact within the SMV and portal vein versus nonocclusive thrombus. Consider RIGHT upper quadrant Doppler ultrasound or more optimally CT venogram/CT with delayed imaging as indicated. 3. Gallbladder wall thickening is nonspecific in the setting of cirrhosis, also minimally present 07/06/2024. Correlate with presentation/exam and if there is concern for cholecystitis, consider RIGHT upp er quadrant ultrasound and/or HIDA as indicated. 4. Gastric, duodenal, and RIGHT colonic wall thickening, nonspecific in the set ting of portal hypertension, possible gastritis/duodenitis and colitis versus portal hypertensive gastroenteropathy a nd colopathy. 5. Additional description as above. Reading Location: [id number]
[2024-11-13] MEDS: 0.9% Normal Saline (1000mL) 1,000 ML 999 ML IV (13:30)
[2024-11-13] MEDS: Lidocaine 2% Viscous15 ML UDC 15 ML PO (13:30)
[2024-11-13 14:00] LABS: Hematocrit 40.1 % (37-47); Hemoglobin 13.6 g/dL (12.0-15.0); Immature Granulocytes Count 0.010 X10^3/uL (0.0-0.0); Mean Corp Hgb Conc 33.9 g/dL (32-36); Mean Corpuscular Volume 94.1 fL (81-99); Mean Platelet Vol. 12.2 fl (6.2-12.0); NRBC Flagged by Analyzer 0 % (0-5); POSITIVE COUNT YES; RBC Distribution Width CV 15.2 % (11.6-14.6); RBC Distribution Width SD 52.5 fl (35.1-43.9); Red Blood Count 4.26 M/mm3 (4.2-5.4); White Blood Count 4.3 K/mm3 (4.4-11.0)
[2024-11-13 14:06] LABS: Platelet Count 48 K/mm3 (150-450)
[2024-11-13 14:16] LABS: AST(SGOT) 111 U/L (<=31); Alanine Aminotransfer ALT/SGPT 67 U/L (<=34); Albumin, Serum 3.6 g/dL (3.4-4.8); Alkaline Phosphatase 206 U/L (35-104); Anion Gap 8 (5-15); BUN 12 mg/dL (4-19); BUN/Creat Ratio 13.0 RATIO (10-20); Calcium,Total 9.0 mg/dL (7.6-11.0); Carbon Dioxide 22.4 mmol/L (21.0-32.0); Chloride 103 mmol/L (98-108); Estimated Creatinine Clearance 55.80 ml/min (50-250); Globulin 3.6 g/dL (2.2-4.2); Glucose 162 mg/dL (70-99); Lipase 30 U/L (13-75); Potassium 4.3 mmol/L (3.3-5.1)
[2024-11-13 14:28] VITALS: BP 117/68; PULSE 76; RESP 17; TEMP 36.7; O2SAT 99
[2024-11-13 14:53] LABS: Mucous, Urine 0 SEEN /hpf (<or=2+)
[2024-11-13 14:55] LABS: Color, Urine Yellow (Yellow); Glucose, Dipstick Normal (Normal); Ketone-Dipstick Negative (Negative); Leukocyte Esterase-Dipstick Negative /ul (Negative); Nitrite-Dipstick Negative (Negative); Occult Blood-Urine Negative /ul (Negative); Protein-Dipstick 15 mg/dl (Negative); Specific Gravity, Urine 1.010 (1.002-1.030); Urine Bilirubin Dipstick Negative (Negative)
[2024-11-13 15:11] LABS: Red Blood Cells-Urine 0-5 SEEN /hpf (0-5); Squamous Epithelial Cells - UA 0-5 SEEN /hpf (5-10)
[2024-11-13 16:00] VITALS: BP 105/71; PULSE 88; RESP 15; TEMP 36.7; O2SAT 100
[2024-11-13 16:26] VITALS: BP 105/71; PULSE 77; RESP 18; TEMP 36.6; O2SAT 100
== END 2024-11-13 18:17 | disposition home or self-care (01) ==
PROVIDERS: Emergency Provider Emergency Medicine; PCP Family Medicine; Visit Provider Emergency Medicine
DX: R10.13 Epigastric pain (principal); K74.60 Unspecified cirrhosis of liver; E11.9 Type 2 diabetes mellitus without complications; D69.6 Thrombocytopenia, unspecified; I10 Essential (primary) hypertension; Z79.84 Long term (current) use of oral hypoglycemic drugs; Z79.899 Other long term (current) drug therapy
CPT/HCPCS: 74177; 80053; 81001; 83690; 85025; 96361; 96374; 99283; Q9967; A4216; J2405